=== PATIENT | male | born 1960 | race Caucasian/White ===

== ENCOUNTER 2020-03-12 13:38 | Observation (INO) | payer OTHER, SELFPAY ==
[2020-03-12] VITALS (8 sets, daily range): BP systolic 123–150; BP diastolic 70–88; PULSE 89–129; RESP 18–20; TEMP 36.6–36.8; O2SAT 98–100; BMI 29.4
--- NOTE | ~2020-03-12 | CT_ITS ---
EXAMINATION: CT brain wo con DATE: 03/12/2020 14:16 INDICATION: Altered mental status TECHNIQUE: Computed tomography (CT) of the head was performed without intravenous contrast. The mA wa s adjusted according to patient size. Iterative reconstruction technique was employed. Exam dose: 60 5.33 mGy-cm total exam DLP. COMPARISON: 02/27/2019 CT brain FINDINGS: There are chronic cerebrovascular accidents, at the left posterior parietal occipital area, left fron sarah parietal area in posterior right parietal area Bilateral vertebral artery and bilateral prominent carotid siphon internal carotid artery calcificati ons are noted. There is nonspecific diminished attenuation of the cerebral white matter, likely due to chronic small vessel ischemic changes. No intracranial mass lesion or hemorrhage, midline shift shift or mass effect is evident. No subdural or epidural hematoma. There is partial opacification of left at mastoid air cells. The right mastoid air cells are normally developed and aerated. There is soft tissue thickening of ethmoid air cells bilaterally. The paranasal sinuses are otherwise unremarkable. IMPRESSION: Chronic bilateral cerebrovascular infarcts Cerebral atherosclerosis and chronic small vessel ischemic changes of the cerebral white matter Reviewed, dictated and finalized at [facility]. Reviewed, dictated and finalized at location [facility]. IMPRESSION: Chronic bilateral cerebrovascular infarcts Cerebral atherosclerosis and chronic small vessel ischemic changes of the cereb ral white matter
--- NOTE | ~2020-03-12 | XR_ITS ---
EXAMINATION: XR chest 2V DATE: 03/12/2020 14:20 INDICATION: Weakness. Confusion. TECHNIQUE: Frontal and lateral views of the chest were obtained. COMPARISON: Chest 2 views 02/27/2019 FINDINGS: There is no pneumonia, pleural effusion, or pneumothorax. Cardiomegaly is noted. There is a left chest wall pacer with leads in the right atrium and right ventricle. IMPRESSION: 1. Cardiomegaly. Reviewed, dictated and finalized at location [facility]. IMPRESSION: 1. Cardiomegaly.
--- NOTE | ~2020-03-12 | CT_ITS ---
EXAMINATION: CT chest abdomen pelvis wo con DATE: 03/13/2020 15:01 INDICATION: Abdominal pain. TECHNIQUE: Computed tomography (CT) of the chest, abdomen, and pelvis was performed without intraveno us contrast. Automated exposure control and iterative reconstruction technique were employed. The dos e-length product was 1067.71 mGy-cm. COMPARISON: Chest 2 views 03/12/2020 FINDINGS: CHEST CT: The lungs demonstrate mild atelectasis. There is smooth septal thickening in the lungs, consistent wi th mild pulmonary edema. No pleural effusion. The heart size is normal. There are coronary artery devante cifications. No pericardial effusion. There is a left chest wall pacer with leads in the right atrium and right ventricle. There is upper thoracic levoscoliosis and severe spondylosis. There is severe c ervical spondylosis. Thoracolumbar dextroscoliosis is noted. ABDOMEN/PELVIS CT: The liver, gallbladder, spleen, pancreas, adrenal glands, and kidneys are normal. There is no urolith iasis. There is diffuse bladder wall thickening, likely secondary to chronic outlet obstruction from the moderately enlarged prostate. There is low attenuation in the prostate in an area measuring 4.9 x 3.9 cm. There is diverticulosis of the colon without evidence of diverticulitis. The appendix is nor mal. There are no dilated loops of bowel. There is a subcutaneous injection site in anterior abdomina l wall. There are no pathologically enlarged lymph nodes. There is no free intraperitoneal fluid. The re is a chronic compression fracture of L3 with changes of vertebroplasty. There is severe lumbar spo ndylosis. Lumbar levoscoliosis is noted. IMPRESSION: 1. Mild pulmonary edema. 2. Moderately enlarged prostate with low attenuation suspicious for prostatitis and abscess. Reviewed, dictated and finalized at location [facility].
--- NOTE | 2020-03-12 13:46 | ECG_ITS ---
Measurements Intervals [place] Rate: 100 P: -21 CT: 214 QRS: -83 QRSD: 170 T: 70 QT: 383 QTc: 494 Interpretive Statements SINUS TACHYCARDIA WITH FIRST DEGREE AV BLOCK LEFT AXIS DEVIATION RIGHT BUNDLE BRANCH BLOCK LEFT VENTRICULAR HYPERTROPHY AND ST-T CHANGE POOR R WAVE PROGRESSION, ANTERIOR LEADS INFERIOR INFARCT, AGE INDETERMINATE ABNORMAL ECG Electronically Signed On 03-12-2020 14:24:57 CDT by Leonardo Song D.O.
--- NOTE | 2020-03-12 13:55 | ED.GENADULT ---
HPI - General Adult General Chief complaint: Weakness Stated complaint: GROIN PAIN/WEAKNESS Source: patient History of Present Illness HPI narrative: Patient is a 60 y/o male brought in by EMS for reported groin. He is not sure why he is here. He states that he was talking with a friend on the phone and his friend might have called EMS. He states that he had recent prostate surgery and he has some pelvic/suprapubic pain. He denies any chest pain, SOB, headache, fever, vomiting or diarrhea. Related Data Home Medications Medication Instructions Recorded Confirmed amitriptyline 100 mg PO DAILY 03/12/20 atorvastatin 80 mg PO DAILY 03/12/20 clopidogrel 75 mg PO DAILY 03/12/20 cyclobenzaprine 10 mg PO TID PRN 03/12/20 docusate sodium [DOK] 100 mg PO BID 03/12/20 ergocalciferol (vitamin D2) 1,250 mcg PO DAILY 03/12/20 linagliptin [Tradjenta] 5 mg PO DAILY 03/12/20 pantoprazole 40 mg PO DAILY 03/12/20 tramadol 50 mg PO TID PRN 03/12/20 Allergies Allergy/AdvReac Type Severity Reaction Status Date / Time Penicillins Allergy Unknown Other Verified 03/12/20 13:57 Review of Systems Review of Systems: ROS unobtainable: Yes unobtainable due to mental status Exam Const: General: no acute distress, well developed and confusion Orientation/consciousness: oriented to person, oriented to place and oriented to time Limitations: altered mental status HENMT: Head: normocephalic Ears: external ears normal General nose exam: Normal external nose present Eyes: General: appearance normal, both eyes and all related structures Conjunctivae: conjunctivae normal Neck: Neck: normal visual inspection and full ROM Chest: Chest palpation & inspection: normal inspection of the chest and no tenderness Resp: Effort & Inspection: normal respiratory effort Auscultation: clear to auscultation bilaterally Cardio: Rate: regular rate Rhythm: regular rhythm GI: GI Palp: No abdominal tenderness, Yes Soft to palpation and Yes Tenderness to palpation present (GI) (suprapubic) : Penis: Yes normal penis Testes: no testicular swelling Skin: General skin exam: normal color and turgor normal Neuro: General: oriented to person and oriented to place Cognition (Neuro): normal cognition Extrem: General: normal to inspection, full ROM and no pedal edema Psych: Appearance: grossly normal Mental Status: mental status grossly normal Affect: normal affect Course Reevaluation(s) Reevaluation #1: Rechecked. Patient states that he feels better and no longer has suprapubic. Date: 03/12/20 Time: 18:10 Consultations Consultation #1: Discussed with PHILIP Sommer, who agrees to admit to Dr. Kyle. Date: 03/12/20 Time: 18:25 Vital Signs Vital signs: Vital Signs Temperature 36.8 C 03/12/20 13:39 Pulse Rate 89 03/12/20 13:39 Respiratory Rate 20 03/12/20 13:39 Blood Pressure 123/85 03/12/20 13:39 Pulse Oximetry 100 03/12/20 13:39 Temperature 36.8 C 03/12/20 13:39 Pulse Rate 103 H 03/12/20 15:00 Respiratory Rate 20 03/12/20 15:00 Blood Pressure 123/85 03/12/20 13:39 Pulse Oximetry 100 03/12/20 15:00 Medical Decision Making Vital Signs Vital Signs: Vital Signs Temperature 36.8 C 03/12/20 13:39 Pulse Rate 89 03/12/20 13:39 Respiratory Rate 20 03/12/20 13:39 Blood Pressure 123/85 03/12/20 13:39 Pulse Oximetry 100 03/12/20 13:39 Temperature 36.8 C 03/12/20 13:39 Pulse Rate 103 H 03/12/20 15:00 Respiratory Rate 20 03/12/20 15:00 Blood Pressure 123/85 03/12/20 13:39 Pulse Oximetry 100 03/12/20 15:00 Lab Data Result diagrams: 03/12/20 14:09 03/12/20 14:10 Labs: Lab Results 03/12/20 03/12/20 03/12/20 Range/Units 14:09 14:10 14:57 WBC 10.0 (4.5-10.0) K/mm3 RBC 3.47 L (4.6-6.20) M/mm3 Hgb 11.5 L (14.0-18.0) g/dL Hct 34.5 L (42.0-52.0) % MCV 99.4 (80-100) fl MCH 33.1 (26-34) pg MCHC 33.3 (32-36) g/dl R
[2020-03-12 14:20] LABS: Basophils Absolute Auto 0.1 K/mm3 (0.0-0.1); Basophils Percent Auto 0.6 % (0.2-1.2); Eosinophils Absolute Auto 0.1 K/mm3 (0-0.3); Eosinophils Percent Auto 0.5 % (0-4.4); Hematocrit 34.5 % (42.0-52.0); Hemoglobin 11.5 g/dL (14.0-18.0); Immature Granulocyte Absolute 0.05 K/mm3 (0.00-0.031); Immature Granulocyte Percent A 0.5 % (0-0.5); Lymphocytes Absolute Auto 1.92 K/mm3 (0.9-3.2); Lymphocytes Percent Auto 19.3 % (18.3-44.2); Mean Corpuscular HGB Conc 33.3 g/dl (32-36); Mean Corpuscular Hemoglobin 33.1 pg (26-34); Mean Corpuscular Volume 99.4 fl (80-100); Mean Platelet Volume 10.1 fl (7.4-10.4); Monocytes Absolute Auto 0.6 K/mm3 (0.1-0.6); Monocytes Percent Auto 5.6 % (2.6-8.5); Neutrophils Absolute Auto 7.3 K/mm3 (1.3-6.7); Neutrophils Percent Auto 73.5 % (45.5-73.1); Platelet Count Result 469 k/mm3 (150-375); Red Blood Count 3.47 M/mm3 (4.6-6.20); Red Cell Distribution Width 14.6 % (11.5-14.5)
[2020-03-12] MEDS: ONDANSETRON INJ 4 MG/2 ML VIAL IV PUSH (14:26)
[2020-03-12] MEDS: SODIUM CHLORIDE 0.9% IV 1,000 ML 999 ML IV CONT (14:26)
[2020-03-12 14:42] LABS: Alanine Aminotransferase 16 U/L (4-50); Albumin Level 4.7 g/dL (3.5-5.1); Alkaline Phosphatase 153 U/L (38-126); Anion Gap 15 mmol/L (8-16); Aspartate Amino Transferase 19 U/L (17-59); Bilirubin,Total 0.6 mg/dL (0.2-1.3); Blood Urea Nitrogen 21 mg/dL (9-20); Calcium 11.1 mg/dL (8.4-10.2); Carbon Dioxide 17 mmol/L (22-30); Chloride 105 mmol/L (98-107); Estimated Glomerular Filt Rate 39; Glucose 236 mg/dL (75-110); Potassium 5.4 mmol/L (3.4-5.0); Sodium 137 mmol/L (137-145)
[2020-03-12 15:28] LABS: Add Urine Microscopic? YES; Appearance Urine Clear (Clear); Bacteria Urine Trace /hpf; Bilirubin Urine Negative (Negative); Blood Urine 1+ (Negative); Color Urine Yellow (Yellow); Glucose Urine UA 2+ mg/dL (Negative); Hyaline Casts Urine 20-29 /lpf; Ketones Urine 1+ mg/dL (Negative); Leukocyte Esterase Ur 2+ LEU/UL (Negative); Mucus Urine Rare /lpf; Nitrate Urine Negative (Negative); Protein Urine 2+ mg/dL (Negative); Specific Grav Ur 1.018 (1.001-1.035); Squamous Epithelial Cell Urine Occasional /hpf (Few); Urobilinogen Urine Negative mg/dL (<2.0); WBC Urine >75 /hpf
[2020-03-12] MEDS: SODIUM CHLORIDE 0.9% IV 1,000 ML 125 ML IV CONT (19:58)
[2020-03-12] MEDS: CIPROFLOXACIN 400 MG/D5W 200ML 200 ML 200 MG IVPB (20:07)
--- NOTE | 2020-03-12 22:02 | ADMGEN ---
This patient, Basilio Riley, was admitted to 3 [facility] S[facility] Room 322-01. Patient/family oriented to hospital policies and general routines including ID bracelet, bed and alarms, visiting hours, pain management, procedures, bathroom and other care routines, personal items, smoking policy, room service/diet, and visiting hours. Valuables list has been completed. Information on how to activate the Rapid Response Team has been discussed. Patient/Family are encouraged to report perceived risks to care and to ask questions if they do not understand what they are told or what they should do.
[2020-03-13] VITALS (11 sets, daily range): BP systolic 115–161; BP diastolic 54–71; PULSE 77–100; RESP 16–20; TEMP 36.4–36.9; O2SAT 99–100
--- NOTE | 2020-03-13 05:09 | PM.IMHP ---
H&P: HPI History of Present Illness Date/Time: 03/13/20 05:09 Chief complaint: Penile pain, confusion Narrative: Basilio Riley is a 60 year old male with a past medical history of diabetes mellitus, hypertension, obstructive sleep apnea, CVA and recent prostate surgery who presented to the ER with penis pain and confusion. Patient had TURP on 02/15/2020. the patient had was only alert and oriented x2 in the ER. he has demonstrated some bizarre behavior since admission he was standing at the sink in his hospital room and attempting to urinated as he thought it was a urinal. at the time of my evaluation the patient is alert and oriented to name, location, year and name of the current president. He was confused as to the month and thought it was April. The patient denies having felt confused when he came to the ER. However when he was in the ER he could not recall if he still had a urinary catheter following his surgical procedure. He also was unable to tell the ER physician why he was at our facility. The patient had evidently been talking to a friend on the phone who called EMS. The patient tells me that his penis hurts and that he was having dysuria. However he also reports that his penis is hurting almost constantly. He denies any hematuria. He stated that he will had been having some abdominal pain previously but denied did not abdominal pain at the time of my evaluation. However , on exam the patient seemed uncomfortable with palpation of the lower abdomen and actually was guarding his abdomen when I tried to re-evaluate. He denies any headache or visual changes. He has not been having any nausea or vomiting. He has not been having any chest pain or shortness of breath. Review of Systems Review of Systems: Narrative: 12 systems were reviewed with pertinent positives and negatives per HPI. Except as documented in the HPI, all other systems were reviewed and are negative. The patient is a poor historian And provides vague answers which makes review of systems difficult. 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 CVA (cerebral vascular accident) CVA 2014 with left hemiparesis right frontoparietal, CVA January 2019 where he presented with confusion and aphasia and was found I will left parietal occipital region stroke at time Diabetic peripheral neuropathy Essential hypertension Hard of hearing Hyperlipidemia Obstructive sleep apnea refuses CPAP Type 2 diabetes mellitus hemoglobin A1c of 6.1 02/21/2019 Vitamin D deficiency Surgical History Surgical History (Updated 03/13/20 @ 06:12 by Jenny Farias DO) Cardiac pacemaker due to sick sinus syndrome History of hernia surgery History of transurethral resection of prostate Previous back surgery Family History Family History Mother Cerebrovascular accident Acute myocardial infarction Hypertension Father Diabetes mellitus Cerebrovascular accident Hypertension Social History Social History (Updated 03/13/20 @ 05:30 by Jenny Farias DO) Social History: Primary care provider: Dina PALACIOS Code status: Full code Surrogate decision maker: Darling Rivers (Sister) Smoking packs per day: 1 Smoking cigarettes per day: 20.0 Years smoked: 45 Smoking pack-years: 45.00 Smoking status: Former smoker Alcohol intake: never Substance use: current Substa
[2020-03-13] MEDS: traMADol HCL 50 MG TABLET PO (06:19)
[2020-03-13] MEDS: SODIUM CHLORIDE 0.9% IV 1,000 ML 125 ML IV CONT ×2 (06:19→12:03)
[2020-03-13] MEDS: CIPROFLOXACIN 400 MG/D5W 200ML 200 ML 200 MG IVPB ×2 (06:21→17:48)
[2020-03-13 06:24] LABS: Hematocrit 28.5 % (42.0-52.0); Hemoglobin 9.4 g/dL (14.0-18.0); Mean Corpuscular Hemoglobin 33.1 pg (26-34); Mean Corpuscular Volume 100.4 fl (80-100); Platelet Count Result 379 k/mm3 (150-375); Red Blood Count 2.84 M/mm3 (4.6-6.20); Red Cell Distribution Width 14.7 % (11.5-14.5); White Blood Count 10.7 K/mm3 (4.5-10.0)
--- NOTE | 2020-03-13 06:47 | PHAR ---
THE FOLLOWING HOME MEDS HAVE BEEN VERIFIED BY PHARMACY TRADJENTA 5 MG TABS NATEFLINIDE 120 MG TABS
[2020-03-13 06:50] LABS: Anion Gap 7 mmol/L (8-16); Blood Urea Nitrogen 22 mg/dL (9-20); Calcium 9.8 mg/dL (8.4-10.2); Carbon Dioxide 22 mmol/L (22-30); Chloride 109 mmol/L (98-107); Estimated CRCL calculation 48 ml/min; Estimated Glomerular Filt Rate 48; Glucose 207 mg/dL (75-110); Potassium 4.1 mmol/L (3.4-5.0); Sodium 138 mmol/L (137-145)
[2020-03-13 09:07] LABS: CRP 0.7 mg/dL (<1.0)
[2020-03-13 09:10] LABS: Acetaminophen < 10 ug/mL (10-30); Ammonia < 9 umol/L (9-30); Salicylate < 1.0 mg/dL (2-20)
[2020-03-13] MEDS: DOCUSATE SODIUM 100 MG CAPSULE 200 MG PO (09:25)
[2020-03-13] MEDS: FOLIC ACID 1 MG TABLET PO (09:26)
[2020-03-13] MEDS: GABAPENTIN 300 MG CAPSULE 900 MG PO ×3 (09:26→17:52)
[2020-03-13] MEDS: levETIRAcetam 250 MG TABLET PO ×2 (09:26→17:53)
[2020-03-13] MEDS: CLOPIDOGREL BISULFATE 75 MG TABLET PO (09:26)
[2020-03-13] MEDS: HYDROXYUREA (*CHEMO) 500 MG CAPSULE PO (09:26)
[2020-03-13] MEDS: PANTOPRAZOLE 40 MG TABLET PO (09:26)
[2020-03-13] MEDS: PHENAZOPYRIDINE HCL 100 MG TABLET 200 MG PO ×3 (09:26→17:53)
[2020-03-13] MEDS: METOPROLOL SUCCINATE EXT REL 50 MG TABCR PO (09:27)
[2020-03-13] MEDS: ENOXAPARIN 40 MG/0.4 ML SYRINGE SUB-Q (09:28)
[2020-03-13] MEDS: INSULIN ASPART (*BKC) 100 UNITS/ML SUB-Q (09:39)
[2020-03-13 10:00] LABS: Glucose Point of Care 261 (65-105)
[2020-03-13 10:11] LABS: Folic Acid > 20.0 ng/mL (2.76->20)
--- NOTE | 2020-03-13 14:21 | PM.IMPN ---
Progress Note: A&P Assessment and Plan (1) UTI (urinary tract infection): Qualifiers: Hematuria presence: without hematuria Urinary tract infection type: site unspecified Qualified Code(s): N39.0 - Urinary tract infection, site not specified Code(s): N39.0 - Urinary tract infection, site not specified Status: Acute Assessment and Plan: -----Symptoms and UA consistent with UTI. Continue Cipro. AMS appears to be improving. Pt stated he had some issue with his TURP at [facility] and had to be transferred but couldn't tell me what exactly went on. Will order records. Continue pyridium for burning, await CT abd/pelv. (2) S/P TURP: Code(s): Z90.79 - Acquired absence of other genital organ(s) Status: Acute Assessment and Plan: -----See above. Will obtain records. CT to ensure no abscess or other issue. (3) CONNIE (acute kidney injury): Code(s): N17.9 - Acute kidney failure, unspecified Status: Acute Assessment and Plan: -----Cr improving now 1.5 today. Hold lisinopril. Will decrease fluids. (4) Metabolic encephalopathy: Code(s): G93.41 - Metabolic encephalopathy Status: Acute Assessment and Plan: -----likely due to urinary tract infection. Keppra level ordered. Pt is A&ox4 but confused about his last surgery. . 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 Continue SSI. Time Spent With Patient Time with patient: 25 - 35 minutes Subjective Date/time seen: 03/13/20 14:21 Interval history: Pt is a 60-year-old male here for altered mental status found to have a UTI. Patient was seen today and feels okay. He says he still has penile pain and describes this as burning when he urinates. He has no concerns for STDs at this time. He had some nausea earlier and felt weak. He also thinks he has hearing less at his left ear but has no joint pain. He denies chest pain, shortness of breath, fevers, chills, abdominal pain or diarrhea. patient is somewhat confused about his procedure in [place]. It is documented that it was last month but pt does seem confused about the details of this. Review of Systems Review of Systems: All systems reviewed & are unremarkable except as noted in HPI and below Exam Narrative: Exam Narrative: General: Well developed well nourished patient Resting comfortably in bed in no acute distress HEENT: normocephalic Neck: supple Neuro: Alert and oriented x4 for me on exam but cannot exactly recall the timing of his last procedure and hospitalization. Cranial nerves 2-12 intact. Equal strength in the upper lower extremities 5/5 CV:RRR :benign appearing penis without discharge, erythema, or hematuria. No masses palpated. Resp:CTA Abd: Soft, non distended. Some mild pain to the lower quadrants. Positive bowel sounds Extremities: No swelling, erythema, or pain to palpation. Objective Data Vital Signs Vital Signs: Vital Signs - 24 hr 03/12/20 15:00 03/12/20 17:00 03/12/20 19:15 Temperature Pulse Rate 103 H 102 H 110 H Respiratory Rate 20 20 20 Blood Pressure 132/88 128/71 123/77 Pulse Oximetry 98 100 99 03/12/20 20:30 03/12/20 21:30 03/12/20 22:13 Temperature 97.8 F Pulse Rate 111 H 97 129 H Respiratory Rate 20 18 Blood Pressure 123/72 150/70 H Pulse Oximetry 99 100 03/13/20 00:00 03/13/20 02:00 03/13/20 06:00 Temperature 97.6 F 97.6 F Pulse Rate 92 96 93 Respiratory Rate 18 18 Blood Pressure 161/66 H 152/71 H Pulse Oximetry 100 100 03/13/20 08:00 03/13/20 09:27 03/13/20 10:00 Temperature 97.6 F Pulse Rate 85 96 100 Respir
[2020-03-13 14:27] LABS: Glucose Point of Care 96 (65-105)
[2020-03-13] MEDS: ACETAMINOPHEN 325 MG TABLET 650 MG PO (17:51)
[2020-03-13 18:06] LABS: Glucose Point of Care 92 (65-105)
[2020-03-13] MEDS: AMITRIPTYLINE HCL 25 MG TABLET 100 MG PO (20:55)
[2020-03-13] MEDS: ATORVASTATIN 40 MG TABLET 80 MG PO (20:55)
[2020-03-13 22:07] LABS: Glucose Point of Care 129 (65-105)
[2020-03-14] VITALS: PULSE 74
[2020-03-14 04:00] VITALS: PULSE 84
[2020-03-14 05:06] VITALS: BP 129/90; PULSE 97; RESP 18; TEMP 36.7; O2SAT 100
[2020-03-14] MEDS: SODIUM CHLORIDE 0.9% IV 1,000 ML 100 ML IV CONT (05:09)
[2020-03-14] MEDS: CIPROFLOXACIN 400 MG/D5W 200ML 200 ML 200 MG IVPB (05:09)
[2020-03-14 06:07] LABS: Hematocrit 27.7 % (42.0-52.0); Mean Corpuscular HGB Conc 32.5 g/dl (32-36); Mean Corpuscular Hemoglobin 33.5 pg (26-34); Platelet Count Result 313 k/mm3 (150-375); Red Blood Count 2.69 M/mm3 (4.6-6.20); Red Cell Distribution Width 15.4 % (11.5-14.5); White Blood Count 11.1 K/mm3 (4.5-10.0)
[2020-03-14 06:20] LABS: Alanine Aminotransferase 15 U/L (4-50); Albumin Level 3.3 g/dL (3.5-5.1); Alkaline Phosphatase 82 U/L (38-126); Anion Gap 3 mmol/L (8-16); Aspartate Amino Transferase 18 U/L (17-59); Bilirubin,Total < 0.1 mg/dL (0.2-1.3); Blood Urea Nitrogen 17 mg/dL (9-20); Calcium 9.1 mg/dL (8.4-10.2); Carbon Dioxide 24 mmol/L (22-30); Chloride 110 mmol/L (98-107); Estimated CRCL calculation 55 ml/min; Estimated Glomerular Filt Rate 57; Glucose 189 mg/dL (75-110); Magnesium 1.4 mg/dL (1.6-2.3); Potassium 3.9 mmol/L (3.4-5.0); Sodium 137 mmol/L (137-145)
[2020-03-14 08:00] VITALS: PULSE 85
[2020-03-14] MEDS: DOCUSATE SODIUM 100 MG CAPSULE 200 MG PO (08:30)
[2020-03-14 08:31] LABS: Glucose Point of Care 174 (65-105)
[2020-03-14] MEDS: HYDROXYUREA (*CHEMO) 500 MG CAPSULE PO (08:31)
[2020-03-14] MEDS: GABAPENTIN 300 MG CAPSULE 900 MG PO ×2 (08:31→12:39)
[2020-03-14] MEDS: PHENAZOPYRIDINE HCL 100 MG TABLET 200 MG PO ×2 (08:32→12:39)
[2020-03-14] MEDS: levETIRAcetam 250 MG TABLET PO (08:32)
[2020-03-14 08:33] VITALS: PULSE 77
[2020-03-14] MEDS: METOPROLOL SUCCINATE EXT REL 50 MG TABCR PO (08:33)
[2020-03-14] MEDS: PANTOPRAZOLE 40 MG TABLET PO (08:33)
[2020-03-14] MEDS: FOLIC ACID 1 MG TABLET PO (08:33)
[2020-03-14] MEDS: CLOPIDOGREL BISULFATE 75 MG TABLET PO (08:33)
[2020-03-14] MEDS: ENOXAPARIN 40 MG/0.4 ML SYRINGE SUB-Q (08:36)
[2020-03-14] MEDS: MAGNESIUM SULF 2 GM/WATER 50ML 2 GM/50 ML BAG IVPB (08:37)
--- NOTE | 2020-03-14 08:53 | WPDURCON ---
Assessment and Plan Assessment and plan (1) Prostate abscess: Code(s): N41.2 - Abscess of prostate Status: Acute Assessment and Plan: Patient's pain is improved today. Would recommend sending patient home with two weeks of oral antibiotics and to establish care with Urology at [facility] or [facility]. If patient's pain would worsen or signs of infection such as fever or elevated WBC would occur, the patient would need to be transferred to U or [facility] for rectal drainage of abscess in IR. No further care at this time needed. Urology Consult Note HPI Date Seen: 03/14/20 Requesting Physician: Maggy Rain PA-C Primary Care Provider: Dina Cloud, PA Consult Narrative Narrative: Basilio Riley is a 60 year old male who presented to the ER via EMS yesterday for severe scrotal/penile pain s/p prostate abscess drainage (unroofing of a prostate abscess) with Dr. Petersen in 02/2020. His pain is improved today and tolerable, however yesterday he c/o severe dysuria and urethral pain. His WBC is 11.1, creatinine is 1.30, urine culture is growing staph and CT confirms that his prostate abscess is still present. He is afebrile and stable otherwise today. He was given 14 days of Bactrim from the hosptial on 02/18/2020 but the patient didn't pick them up or take them. He was then seen by Dr. Petersen in the office on 02/24/2020 and given another script for 2 weeks of Bactrim which he didn't take, he was also recommended to follow up with a Urologist at [facility] or [facility] by Dr. Petersen. 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 CVA (cerebral vascular accident) CVA 2014 with left hemiparesis right frontoparietal, CVA January 2019 where he presented with confusion and aphasia and was found I will left parietal occipital region stroke at time Diabetic peripheral neuropathy Essential hypertension Hard of hearing Hyperlipidemia Obstructive sleep apnea refuses CPAP Prostate abscess Type 2 diabetes mellitus hemoglobin A1c of 6.1 02/21/2019 Vitamin D deficiency Surgical History Surgical History Cardiac pacemaker due to sick sinus syndrome History of hernia surgery History of transurethral resection of prostate Previous back surgery Family History Family History Mother Cerebrovascular accident Acute myocardial infarction Hypertension Father Diabetes mellitus Cerebrovascular accident Hypertension Social History Social History Social History: Primary care provider: Dina PALACIOS Code status: Full code Surrogate decision maker: Darling Rivers (Sister) Smoking packs per day: 1 Smoking cigarettes per day: 20.0 Years smoked: 45 Smoking pack-years: 45.00 Smoking status: Former smoker Alcohol intake: never Substance use: current Substance use type: marijuana Living arrangements: alone Additional living arrangements comments: [facility]
[2020-03-14 12:00] VITALS: PULSE 91
[2020-03-14] MEDS: metroNIDAZOLE 250 MG TABLET 500 MG PO (12:39)
--- NOTE | 2020-03-14 12:39 | PM.DS ---
DS: Admitting Diagnosis Admitting Diagnosis Admitting Diagnosis: Urinary tract infection, site not specified DS: Discharge Diagnosis Discharge Diagnosis (1) UTI (urinary tract infection): Qualifiers: Hematuria presence: without hematuria Urinary tract infection type: site unspecified Qualified Code(s): N39.0 - Urinary tract infection, site not specified Code(s): N39.0 - Urinary tract infection, site not specified Status: Acute Assessment and Plan: -----urine culture confirms UTI with coag-negative staph greater than 100, 000 units. Susceptible to Cipro. I spoke with urology about the abscess in the plan to treat with IV antibiotics. I will with through his records and it looks like he also had this abscess 02/16/2020 and was drained at this time. The day of discharge he had no further dysuria and was back to his baseline. He is to follow-up with the surgeon he saw prior. (2) S/P TURP: Code(s): Z90.79 - Acquired absence of other genital organ(s) Status: Acute Assessment and Plan: -----See above. (3) CONNIE (acute kidney injury): Code(s): N17.9 - Acute kidney failure, unspecified Status: Acute Assessment and Plan: -----Cr improved 1.3 at discharge. (4) Metabolic encephalopathy: Code(s): G93.41 - Metabolic encephalopathy Status: Acute Assessment and Plan: -----resolved. likely due to urinary tract infection. Keppra level low . (5) Diabetes mellitus with hyperglycemia: Qualifiers: Diabetes mellitus type: type 2 Diabetes mellitus snf insulin use: without snf use Qualified Code(s): E11.65 - Type 2 diabetes mellitus with hyperglycemia Code(s): E11.65 - Type 2 diabetes mellitus with hyperglycemia Status: Acute Assessment and Plan: -----Last glucose 167 DS: Summary Hospital Course Reason for hospitalization: UTI, complicated Hospital Course: Patient is a 60-year-old male who was just hospitalized and underwent surgery for a prostate/abscess 02/16/20 who presented emergency room for further dysuria, pain, and confusion. Vitals in the ER were stable. Initial white blood cell count normal 10.0. Creatinine 1.8, potassium 5.4. Patient was admitted to the hospitalist service and started on vancomycin and cipro. Of the abdomen and pelvis showed moderately enlarged prostate with low attenuation suspicious for prostatitis and abscess. Urology saw the patient and his old records were reviewed. They recommended an oral course of antibiotics. The patient improved with antibiotics and his pain has resolved. His urine culture grew out coag-negative staph. Overall, he had improvement and was back to his baseline. He is to follow-up with the Urology group. Was Petterchak and the patient understands this. He was educated about the worrisome signs and symptoms to come back to emergency room for was discharged in stable condition. Status at Discharge Functional status at discharge: independent ambulation Overall status at discharge: patient is back to baseline Time Spent with Patient Time attestation: Total time spent providing and/or coordinating discharge services:38 min Time spent: Greater than 30 minutes Exam Narrative: Exam Narrative: General: Well developed well nourished patient Resting comfortably in bed in no acute distress HEENT: normocephalic Neck: supple Neuro: Alert and oriented x4 for me on exam but cannot exactly recall the timing of his last procedure and hospitalization. Cranial nerves 2-12 intact. Equal strength in the upper lower extremities 5/5 CV:RRR :benign appearing penis without discharge, erythema, or hematuria. No masses palpated. Resp:CTA Abd: Soft, non distended. Some mild pain to the lower quadrants. Positive bowel sounds Extremities: No swelling, erythema, or pain to palpation. DS: Data Data Completed and Pending Labs on day of discharge: Joanne
[2020-03-14 12:49] LABS: Glucose Point of Care 167 (65-105)
[2020-03-17 01:51] LABS: Levetiracetam Keppra <1.0 mcg/mL (12.0-46.0)
--- NOTE | 2020-03-20 15:21 | PC.NURSE ---
Blood cx are negative Keppra ;ow at <1.0. Juan José Rain PA-C aware.
== END 2020-03-14 14:36 | disposition home or self-care (01) ==
LOC: ANHED 19:19 → ANH3MEDSUR 19:51
PROVIDERS: Internal Medicine; Physician Assistant; Admitting Provider Internal Medicine; Emergency Provider Emergency Medicine; PCP Physician Assistant; Visit Provider Family Medicine
DX: N39.0 Urinary tract infection, site not specified (principal); N41.2 Abscess of prostate; N17.9 Acute kidney failure, unspecified; Z90.79 Acquired absence of other genital organ(s); G93.41 Metabolic encephalopathy; E11.65 Type 2 diabetes mellitus with hyperglycemia; R53.1 Weakness; D75.9 Disease of blood and blood-forming organs, unspecified; I25.10 Atherosclerotic heart disease of native coronary artery without angina pectoris; I65.23 Occlusion and stenosis of bilateral carotid arteries; I12.9 Hypertensive chronic kidney disease with stage 1 through stage 4 chronic kidney disease, or unspecified chronic kidney disease; N18.3 Chronic kidney disease, stage 3 (moderate); D64.9 Anemia, unspecified; E11.22 Type 2 diabetes mellitus with diabetic chronic kidney disease; E11.40 Type 2 diabetes mellitus with diabetic neuropathy, unspecified; G47.33 Obstructive sleep apnea (adult) (pediatric); E78.5 Hyperlipidemia, unspecified; E55.9 Vitamin D deficiency, unspecified; Z79.02 Long term (current) use of antithrombotics/antiplatelets; Z86.73 Personal history of transient ischemic attack (TIA), and cerebral infarction without residual deficits; Z87.891 Personal history of nicotine dependence; F12.90 Cannabis use, unspecified, uncomplicated; Z79.899 Other long term (current) drug therapy
CPT/HCPCS: 36415; 70450; 71046; 71250; 74176; 80048; 80053; 80076; 80177; 80307; 81001; 82140; 82607; 82746; 83735; 85025; 85027; 86140; 87040; 87077; 87086; 87088; 87186; 93005; 96361; 96365; 96366; 96372; 96375; 99285; A9270; G0378; G0379; J0744; J1650; J1815; J2405; J3370; J3475; J7030

== ENCOUNTER 2020-05-28 08:53 | Outpatient (RCR) | payer OTHER, SELFPAY | END 2020-07-13 13:24 | disposition home or self-care (01) | LOC: ANHAUDIO 08:53 | PROVIDERS: PCP Physician Assistant; Visit Provider Physician Assistant | DX: Z46.1 Encounter for fitting and adjustment of hearing aid (principal) | CPT/HCPCS: V5014 ==

== ENCOUNTER 2020-05-28 18:42 | Observation (INO) | payer OTHER, SELFPAY ==
[2020-05-28] VITALS (7 sets, daily range): BP systolic 104–144; BP diastolic 50–81; PULSE 88–100; RESP 13–20; TEMP 36.3–36.6; O2SAT 96–100; BMI 35.6
--- NOTE | ~2020-05-28 | CT_ITS ---
EXAMINATION: CT abdomen pelvis wo con DATE: 05/29/2020 09:25 INDICATION: Leukocytosis. Prostate abscess. TECHNIQUE: Computed tomography (CT) of the abdomen and pelvis was performed without intravenous contr ast. Automated exposure control and iterative reconstruction technique were employed. The dose-length product was 1055.72 mGy-cm. COMPARISON: CT abdomen and pelvis 03/13/2020 FINDINGS: The visualized portions of the lung bases demonstrate smooth septal thickening, consistent with mild pulmonary edema. No pleural effusion. The heart size is normal. There are coronary artery c alcifications. No pericardial effusion. There is a pacer wire in right ventricle. There is a [address] in the liver. There is steatosis in the liver at the hilum. The gallbladder, spleen, pancreas, adr enal glands, and kidneys are normal. The prostate is moderately enlarged. There is a bilobed area of low-attenuation in the prostate measuring 4.8 x 1.3 cm, improved from 4.9 x 3.9 cm. There is divertic ulosis of the colon without evidence of diverticulitis. There are no dilated loops of bowel. The appe ndix is normal. There is a small left inguinal hernia containing fat. There are no pathologically enl arged lymph nodes. There is no free intraperitoneal fluid. There are multiple healing right-sided rib fractures. There is severe lumbar spondylosis. There is a compression fracture of L3 with changes of vertebroplasty. IMPRESSION: 1. Moderately enlarged prostate with area of low-attenuation with improvement, consistent with prosta titis. It is not clear if there is a residual small component of abscess. 2. Mild pulmonary edema. Reviewed, dictated and finalized at location A. IMPRESSION: 1. Moderately enlarged prostate with area of low-attenuation with improvement, consistent with prostatitis. It is not clear if there is a residual small compo nent of abscess. 2. Mild pulmonary edema.
--- NOTE | 2020-05-28 20:03 | PC.NURSE ---
BLOOD DRAWN BY THIS RN AND SENT TO THE LAB. ASKED PT FOR A URINE SAMPLE, PT STATES HE CANNOT GO AT THIS TIME. RN INFORMED PT THAT IF HE CANNOT PRODUCE A URINE SAMPLE IN A REASONABLE AMOUNT OF TIME THAT THE EDP WILL ORDER A STRAIGHT CATHETERIZATION. PT STATES HE DOES NOT WANT A CATHETER AND ASKS FOR A URINAL. URINAL GIVEN BY THIS RN AND ENCOURAGED PT TO TRY TO URINATE.
[2020-05-28 20:04] LABS: Basophils Absolute Auto 0.1 K/mm3 (0.0-0.1); Basophils Percent Auto 0.5 % (0.2-1.2); Eosinophils Absolute Auto 0.6 K/mm3 (0-0.3); Hematocrit 31.1 % (42.0-52.0); Hemoglobin 10.3 g/dL (14.0-18.0); Immature Granulocyte Absolute 0.08 K/mm3 (0.00-0.031); Immature Granulocyte Percent A 0.5 % (0-0.5); Lymphocytes Absolute Auto 4.97 K/mm3 (0.9-3.2); Lymphocytes Percent Auto 32.9 % (18.3-44.2); Mean Corpuscular HGB Conc 33.1 g/dl (32-36); Mean Corpuscular Hemoglobin 33.2 pg (26-34); Mean Corpuscular Volume 100.3 fl (80-100); Mean Platelet Volume 10.4 fl (7.4-10.4); Monocytes Percent Auto 6.4 % (2.6-8.5); Neutrophils Absolute Auto 8.4 K/mm3 (1.3-6.7); Neutrophils Percent Auto 55.7 % (45.5-73.1); Platelet Count Result 353 k/mm3 (150-375); Red Cell Distribution Width 13.6 % (11.5-14.5); White Blood Count 15.1 K/mm3 (4.5-10.0)
[2020-05-28 20:15] LABS: Lactic Acid Reflex 1.4 mmol/L (0.7-2.1)
[2020-05-28 20:39] LABS: Anion Gap 11 mmol/L (8-16); Blood Urea Nitrogen 65 mg/dL (9-20); Calcium 10.5 mg/dL (8.4-10.2); Carbon Dioxide 22 mmol/L (22-30); Chloride 100 mmol/L (98-107); Estimated CRCL calculation 31 ml/min; Estimated Glomerular Filt Rate 29; Glucose 508 mg/dL (75-110); Potassium 5.9 mmol/L (3.4-5.0); Sodium 133 mmol/L (137-145)
--- NOTE | 2020-05-28 20:52 | ED.GENADULT ---
HPI - General Adult General Chief complaint: Recheck/Abnormal Lab/Rx Stated complaint: abnormal labs Time Seen by Provider: 05/28/20 19:26 History of Present Illness HPI narrative: Patient is a 60-year-old male who presents the ER at the request of his primary care doctor. Patient had routine outpatient blood work drawn and was told they were abnormal and he should come here. Specifically was told that his white blood cell count was high. Were contacted earlier by his primary who reports he had a white blood cell count of 20,000 and a hemoglobin A1c of 12. Patient is denying any fever/chills/sweats/nausea/vomiting. He has had no difficulty breathing or productive cough. Patient does report dysuria since March of this year when he had prostatitis and a prostate abscess that was drained at this hospital. No known sick contacts. Patient reports compliance with his home medications. Reports he had a blood sugar around 300 at noon today and then took an unknown insulin medication that brought his blood sugar down to around 208. Reports he was eating prior to his arrival here so his blood sugar may be high. Related Data Home Medications Medication Instructions Recorded Confirmed Tradjenta 5 mg PO DAILY 03/12/20 03/12/20 amitriptyline 100 mg PO HS 03/12/20 03/12/20 atorvastatin 80 mg PO HS 03/12/20 03/12/20 clopidogrel 75 mg PO DAILY 03/12/20 03/12/20 cyclobenzaprine 10 mg PO TID PRN 03/12/20 03/12/20 docusate sodium [DOK] 200 mg PO DAILY 03/12/20 03/12/20 ergocalciferol (vitamin D2) 1,250 mcg PO DAILY 03/12/20 03/12/20 folic acid 1 mg PO DAILY 03/12/20 03/12/20 gabapentin 900 mg PO TID 03/12/20 03/12/20 hydroxyurea 500 mg PO DAILY 03/12/20 03/12/20 levetiracetam 250 mg PO BID 03/12/20 03/12/20 lisinopril 20 mg PO DAILY 03/12/20 03/12/20 metoprolol succinate 50 mg PO DAILY 03/12/20 03/12/20 nateglinide 120 mg PO TID 03/12/20 03/12/20 pantoprazole 40 mg PO DAILY 03/12/20 03/12/20 tramadol 50 mg PO Q6H PRN 03/12/20 03/12/20 aspirin 81 mg PO DAILY 05/28/20 Allergies Allergy/AdvReac Type Severity Reaction Status Date / Time Penicillins Allergy Unknown Other Verified 05/28/20 19:09 Review of Systems Review of Systems: All systems reviewed & are unremarkable except as noted in HPI and below Constitutional: Constitutional: Denies chills, Denies fever(s) and Denies weakness ENT: Denies nasal congestion and Denies sore throat Respiratory: Respiratory: Denies cough and Denies dyspnea Gastrointestinal: Gastrointestinal: Denies abdominal pain, Denies diarrhea, Denies nausea and Denies vomiting Genitourinary: Genitourinary: Denies hematuria, Reports dysuria and Denies urinary frequency [facility] Past Medical History Medical History (Updated 05/28/20 @ 21:19 by Rick Mccauley MD) 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
[2020-05-28 20:53] LABS: Add Urine Microscopic? YES; Appearance Urine Cloudy (Clear); Bacteria Urine Trace /hpf; Bilirubin Urine Negative (Negative); Blood Urine 3+ (Negative); Color Urine Yellow (Yellow); Glucose Urine UA 3+ mg/dL (Negative); Ketones Urine Negative (Negative); Leukocyte Esterase Ur 3+ LEU/UL (Negative); Mucus Urine Rare /lpf; Nitrate Urine Negative (Negative); Protein Urine 1+ mg/dL (Negative); RBC Urine 21-50 /hpf (0-2); Specific Grav Ur 1.018 (1.001-1.035); Squamous Epithelial Cell Urine Rare /hpf (Few); Urobilinogen Urine Negative mg/dL (<2.0); WBC Urine >75 /hpf
[2020-05-28] MEDS: SODIUM CHLORIDE 0.9% IV 1,000 ML 999 ML IV CONT (21:12)
[2020-05-28] MEDS: INSULIN HUMAN REGULAR (*BKC) 100 UNITS/ML 9 UNITS IV PUSH (21:24)
--- NOTE | 2020-05-28 21:33 | PM.IMHP ---
H&P: HPI History of Present Illness Date/Time: 05/28/20 21:33 Chief complaint: wily/hyperkalemia/uti Narrative: This is a 60 year old obese Diabetic male who presented to the hospital after being referred by his PCP for abnormal routine outpatient blood work that demonstrated an elevated WBC count. The patient has been experiencing dysuria for about 1 month now since he underwent drainage of a prostate abscess. He denies any fevers, chills, nausea, vomiting, abdominal pain, diarrhea, shortness of breath, cough, or chest pain. The patient was evaluated in the ER and found to have a grossly abnormal urinalysis, a Cr of 2.3, an elevated blood sugar of 508 mg/d, and an elevated WBC of 15,100. The patient was treated with insulin, IV fluids, and IV antibiotics. No other complaints. 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 CVA (cerebral vascular accident) CVA 2014 with left hemiparesis right frontoparietal, CVA January 2019 where he presented with confusion and aphasia and was found I will left parietal occipital region stroke at time Diabetic peripheral neuropathy Essential hypertension Hard of hearing Hyperlipidemia Obstructive sleep apnea refuses CPAP Prostate abscess Type 2 diabetes mellitus hemoglobin A1c of 6.1 02/21/2019 Vitamin D deficiency Surgical History Surgical History Cardiac pacemaker due to sick sinus syndrome History of hernia surgery History of transurethral resection of prostate Previous back surgery Family History Family History Mother Cerebrovascular accident Acute myocardial infarction Hypertension Father Diabetes mellitus Cerebrovascular accident Hypertension Social History Social History Social History: Primary care provider: Dina PALACIOS Code status: Full code Surrogate decision maker: Darling Rivers (Sister) Smoking packs per day: 1 Smoking cigarettes per day: 20.0 Years smoked: 45 Smoking pack-years: 45.00 Smoking status: Current some day smoker Tobacco type: cigarettes Alcohol intake: never Substance use: never Substance use type: marijuana Additional living arrangements comments: The patient lives in his of own apartment in [place]. Gender identity (if verbalized by the patient): Male Spiritual care concerns: No Meds Home Medications and Allergies Home Medications Medication Instructions Recorded Confirmed Type Tradjenta 5 mg PO DAILY 03/12/20 03/12/20 History amitriptyline 100 mg PO HS 03/12/20 03/12/20 History atorvastatin 80 mg PO HS 03/12/20 03/12/20 History clopidogrel 75 mg PO DAILY 03/12/20 03/12/20 History cyclobenzaprine 10 mg PO TID PRN 03/12/20 03/12/20 History docusate sodium [DOK] 200 mg PO DAILY 03/12/20 03/12/20 History ergocalciferol (vitamin D2) 1,250 mcg PO DAILY 03/12/20 03/12/20 History folic acid 1 mg PO DAILY 03/12/20 03/12/20 History gabapentin 900 mg PO TID 03/12/20 03/12/20 History hydroxyurea 500 mg PO DAILY 03/12/20 03/12/20 History levetiracetam 250 mg PO BID 03/12/20 03/12/20 History lisinopril 20 mg PO DAILY 03/12/20 03/12/20 History metoprolol succinate 50 mg PO DAILY 03/12/20 03/12/20 History nateglinide 120
[2020-05-28 22:13] LABS: Glucose Point of Care 333 (65-105)
[2020-05-28] MEDS: SODIUM CHLORIDE 0.9% IV 1,000 ML 125 ML IV CONT (23:41)
--- NOTE | 2020-05-28 23:51 | ADMGEN ---
This patient, Basilio Riley, was admitted to [facility] Room 316-01. Patient/family oriented to hospital policies and general routines including ID bracelet, bed and alarms, visiting hours, pain management, procedures, bathroom and other care routines, personal items, smoking policy, room service/diet, and visiting hours. Information on how to activate the Rapid Response Team has been discussed. Patient/Family are encouraged to report perceived risks to care and to ask questions if they do not understand what they are told or what they should do.
[2020-05-29] VITALS (9 sets, daily range): BP systolic 121–150; BP diastolic 72–74; PULSE 86–99; RESP 15–20; TEMP 36.4–37; O2SAT 96–100
[2020-05-29 00:25] LABS: Anion Gap 8 mmol/L (8-16); Blood Urea Nitrogen 59 mg/dL (9-20); Calcium 9.8 mg/dL (8.4-10.2); Carbon Dioxide 23 mmol/L (22-30); Chloride 105 mmol/L (98-107); Estimated CRCL calculation 44 ml/min; Estimated Glomerular Filt Rate 36; Glucose 339 mg/dL (75-110); Potassium 4.8 mmol/L (3.4-5.0); Sodium 136 mmol/L (137-145)
[2020-05-29] MEDS: INSULIN ASPART (*BKC) 100 UNITS/ML SUB-Q ×3 (02:10→18:36)
[2020-05-29 02:20] LABS: Glucose Point of Care 353 (65-105)
[2020-05-29 05:12] LABS: Glucose Point of Care 349 (65-105)
[2020-05-29 06:23] LABS: Basophils Absolute Auto 0.1 K/mm3 (0.0-0.1); Basophils Percent Auto 0.7 % (0.2-1.2); Eosinophils Absolute Auto 0.6 K/mm3 (0-0.3); Eosinophils Percent Auto 4.8 % (0-4.4); Hematocrit 30.3 % (42.0-52.0); Hemoglobin 9.7 g/dL (14.0-18.0); Immature Granulocyte Absolute 0.07 K/mm3 (0.00-0.031); Immature Granulocyte Percent A 0.6 % (0-0.5); Lymphocytes Absolute Auto 3.86 K/mm3 (0.9-3.2); Lymphocytes Percent Auto 32.7 % (18.3-44.2); Mean Platelet Volume 10.5 fl (7.4-10.4); Monocytes Absolute Auto 0.8 K/mm3 (0.1-0.6); Monocytes Percent Auto 6.5 % (2.6-8.5); Neutrophils Absolute Auto 6.5 K/mm3 (1.3-6.7); Neutrophils Percent Auto 54.7 % (45.5-73.1); Platelet Count Result 319 k/mm3 (150-375); Red Blood Count 3.03 M/mm3 (4.6-6.20); Red Cell Distribution Width 13.5 % (11.5-14.5); White Blood Count 11.8 K/mm3 (4.5-10.0)
[2020-05-29 06:38] LABS: Anion Gap 8 mmol/L (8-16); Blood Urea Nitrogen 51 mg/dL (9-20); Calcium 9.8 mg/dL (8.4-10.2); Carbon Dioxide 23 mmol/L (22-30); Chloride 107 mmol/L (98-107); Estimated CRCL calculation 58 ml/min; Estimated Glomerular Filt Rate 52; Glucose 385 mg/dL (75-110); Potassium 4.9 mmol/L (3.4-5.0); Sodium 138 mmol/L (137-145)
[2020-05-29 06:49] LABS: Hemoglobin A1C 11.5 % (<5.7)
[2020-05-29] MEDS: SODIUM CHLORIDE 0.9% IV 1,000 ML 125 ML IV CONT (07:51)
[2020-05-29 09:01] LABS: Glucose Point of Care 398 (65-105)
[2020-05-29 11:58] LABS: Glucose Point of Care 478 (65-105)
[2020-05-29] MEDS: INSULIN ASPART (*BKC) 100 UNITS/ML 10 UNITS SUB-Q (12:25)
--- NOTE | 2020-05-29 14:49 | PM.IMPN ---
Progress Note: A&P Assessment and Plan (1) Complicated UTI (urinary tract infection): Code(s): N39.0 - Urinary tract infection, site not specified Status: Acute Assessment and Plan: ------ patient is symptomatically better and his white blood cell count is better. Await urine cultures and sensitivities. Continue ceftriaxone at this time. He has a history of abscess of the prostate but CT isn't very specific on the findings. I am going to consult Urology and I appreciate their recommendations. if they are worried about abscess, consider switching to fluoroquinolone But would get EKG and continue on telemetry as he has a history of QTC prolongation. (2) Acute renal failure: Qualifiers: Acute renal failure type: unspecified Qualified Code(s): N17.9 - Acute kidney failure, unspecified Code(s): N17.9 - Acute kidney failure, unspecified Status: Acute Assessment and Plan: ----- improving. Will stop fluids since the patient has crackles and CT of the lungs showed possible pulmonary edema. (3) Leukocytosis: Qualifiers: Leukocytosis type: unspecified Qualified Code(s): D72.829 - Elevated white blood cell count, unspecified Code(s): D72.829 - Elevated white blood cell count, unspecified Status: Acute Assessment and Plan: -----Likely secondary to UTI. Monitor CBC (4) Chronic anemia: Code(s): D64.9 - Anemia, unspecified Status: Chronic Assessment and Plan: ------May be secondary to known myelodysplastic syndrome. No signs of acute blood loss. Monitor H/H, transfuse prn. . (5) Acute hyperkalemia: Code(s): E87.5 - Hyperkalemia Status: Acute Assessment and Plan: ---- Resolved. Likely secondary to acute renal failure. Monitor serum potassium. (6) Diabetes mellitus with hyperglycemia: Qualifiers: Diabetes mellitus type: type 2 Diabetes mellitus dye tub tender insulin use: without assisted use Qualified Code(s): E11.65 - Type 2 diabetes mellitus with hyperglycemia Code(s): E11.65 - Type 2 diabetes mellitus with hyperglycemia Status: Chronic Assessment and Plan: ----- A1c 11.5. The patient missed his morning dose of insulin which made his afternoon glucose exceptionally high. He was given 10 units at lunch and recheck in 2 hours and it was still high so he was given another 5 units. I am going to have the dietitian, talked to him and help educate him about diabetic diet. Looks like pt is only taking tradjenta at home. Will likely go home on lantus as well. we also spoke about yearly eye exams as well as daily foot checks (7) Essential hypertension: Code(s): I10 - Essential (primary) hypertension Status: Chronic Assessment and Plan: -----Last bp 130/72. continue metoprolol. Hold lisinopril d/t hyperkalemia and renal failure (8) Tobacco dependence: Code(s): F17.200 - Nicotine dependence, unspecified, uncomplicated Status: Chronic Assessment and Plan: ----- Tobacco cessation provided. Additional Plan Time Spent With Patient Time with patient: 25 - 35 minutes Subjective Date/time seen: 05/29/20 14:49 Interval history: Pt is a 60-year-old male with history of abscess of the prostate who is admitted here for dysuria and likely UTI. Patient was seen today and states he is feeling better compared to yesterday. He no longer has his dysuria and he has not noticed any hematuria. He denies nausea, vomiting, chest pain, shortness of breath, diarrhea or constipation. He has had a slight cough but not coughing anything up. He does not know his last A1c but states he does not eat a diabetic diet at home. He takes all his medications. When asked, he says he does not really know what to eat and would like more Education on that. Review of Systems Review of Systems: All systems reviewed & are unremar
--- NOTE | 2020-05-29 15:23 | PC.NURSE ---
On 05/29/20, the student, [Rishabh Young ], provided care and completed [facility] documentation on this patient. I have reviewed the student's documentation and agree with the findings.
[2020-05-29 15:34] LABS: Alanine Aminotransferase 18 U/L (4-50); Albumin Level 3.4 g/dL (3.5-5.1); Alkaline Phosphatase 129 U/L (38-126); Aspartate Amino Transferase 21 U/L (17-59); Bilirubin,Total 0.3 mg/dL (0.2-1.3); CRP 1.2 mg/dL (<1.0); Lactate Dehydrogenase 470 U/L (313-618)
[2020-05-29 18:22] LABS: Glucose Point of Care 258 (65-105)
[2020-05-29 18:28] LABS: Glucose Point of Care 394 (65-105)
[2020-05-29] MEDS: GABAPENTIN 300 MG CAPSULE PO (18:37)
[2020-05-29] MEDS: levETIRAcetam 250 MG TABLET PO (18:37)
[2020-05-29] MEDS: INSULIN GLARGINE (*BKC) 100 UNITS/ML 10 UNITS SUB-Q (20:24)
[2020-05-29] MEDS: ATORVASTATIN 40 MG TABLET 80 MG PO (20:31)
[2020-05-29 23:59] LABS: Glucose Point of Care 216 (65-105)
[2020-05-30 05:46] VITALS: BP 149/81; PULSE 93; RESP 18; TEMP 37; O2SAT 98
[2020-05-30 06:26] LABS: Hematocrit 33.7 % (42.0-52.0); Hemoglobin 10.9 g/dL (14.0-18.0); Mean Corpuscular HGB Conc 32.3 g/dl (32-36); Mean Corpuscular Hemoglobin 32.3 pg (26-34); Mean Platelet Volume 10.2 fl (7.4-10.4); Platelet Count Result 334 k/mm3 (150-375); Red Blood Count 3.37 M/mm3 (4.6-6.20); Red Cell Distribution Width 13.4 % (11.5-14.5); White Blood Count 12.5 K/mm3 (4.5-10.0)
[2020-05-30 06:41] LABS: Alanine Aminotransferase 20 U/L (4-50); Albumin Level 3.5 g/dL (3.5-5.1); Alkaline Phosphatase 131 U/L (38-126); Anion Gap 4 mmol/L (8-16); Aspartate Amino Transferase 19 U/L (17-59); Bilirubin,Total 0.3 mg/dL (0.2-1.3); Blood Urea Nitrogen 26 mg/dL (9-20); Calcium 10.8 mg/dL (8.4-10.2); Carbon Dioxide 31 mmol/L (22-30); Chloride 107 mmol/L (98-107); Estimated CRCL calculation 74 ml/min; Estimated Glomerular Filt Rate > 60; Glucose 230 mg/dL (75-110); Potassium 4.2 mmol/L (3.4-5.0); Sodium 142 mmol/L (137-145)
[2020-05-30 08:00] VITALS: PULSE 103
[2020-05-30] MEDS: CIPROFLOXACIN 400 MG/D5W 200ML 200 ML 200 MG IVPB (09:00)
[2020-05-30] MEDS: GABAPENTIN 300 MG CAPSULE PO ×2 (09:06→12:43)
[2020-05-30] MEDS: levETIRAcetam 250 MG TABLET PO (09:07)
[2020-05-30] MEDS: CLOPIDOGREL BISULFATE 75 MG TABLET PO (09:07)
[2020-05-30] MEDS: HYDROXYUREA (*CHEMO) 500 MG CAPSULE PO (09:07)
[2020-05-30] MEDS: ASPIRIN 81 MG CHEWABLE TABLET PO (09:07)
[2020-05-30] MEDS: FOLIC ACID 1 MG TABLET PO (09:07)
[2020-05-30] MEDS: INSULIN ASPART (*BKC) 100 UNITS/ML SUB-Q ×2 (09:14→12:43)
--- NOTE | 2020-05-30 09:15 | ECG_ITS ---
Measurements Intervals [place] Rate: 103 P: ND: 0 QRS: -79 QRSD: 161 T: 31 QT: 368 QTc: 482 Interpretive Statements ATRIAL FLUTTER/TACHYCARDIA WITH RAPID VENTRICULAR RESPONSE LEFT AXIS DEVIATION RIGHT BUNDLE BRANCH BLOCK LEFT VENTRICULAR HYPERTROPHY WITH ST-T CHANGE ANTERIOR INFARCT, AGE INDETERMINATE INFERIOR INFARCT, AGE INDETERMINATE ABNORMAL ECG Electronically Signed On 05-30-2020 11:29:34 CDT by Leonardo Song D.O.
--- NOTE | 2020-05-30 09:20 | WPDURCON ---
Assessment and Plan Assessment and plan (1) Leukocytosis: Qualifiers: Leukocytosis type: unspecified Qualified Code(s): D72.829 - Elevated white blood cell count, unspecified Code(s): D72.829 - Elevated white blood cell count, unspecified Status: Acute Assessment and Plan: Improving on IV antibiotics. Continue Ciprofloxacin. (2) Prostate abscess: Code(s): N41.2 - Abscess of prostate Status: Acute Assessment and Plan: Will plan to do a trans rectal US in 6 weeks and then follow up with DR. Stanton. NO further evaluation necessary at this time. Urology Consult Note HPI Date Seen: 05/30/20 Requesting Physician: Maggy Rain PA-C Primary Care Provider: Dina Cloud, PA Consult Narrative Narrative: Basilio Riley is a 60 year old male who presented to the ER with c/o dysuria and hematuria. 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 Creatinine is 1.10. He has a history of prostatitis with abscess noted on CT from 03/13/2020. He is comfortable this morning and denies rectal pain, abdominal or groin pain, he is afebrile and states his dysuria is improved. He also states his hematuria has resolved. His repeat CT from this visit, shows moderate improvement of his prostate abscess but does support prostatitis. 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 CVA (cerebral vascular accident) CVA 2014 with left hemiparesis right frontoparietal, CVA January 2019 where he presented with confusion and aphasia and was found I will left parietal occipital region stroke at time Diabetic peripheral neuropathy Essential hypertension Hard of hearing Hyperlipidemia Obstructive sleep apnea refuses CPAP Prostate abscess Type 2 diabetes mellitus hemoglobin A1c of 6.1 02/21/2019 Vitamin D deficiency Surgical History Surgical History Cardiac pacemaker due to sick sinus syndrome History of hernia surgery History of transurethral resection of prostate Previous back surgery Family History Family History Mother Cerebrovascular accident Acute myocardial infarction Hypertension Father Diabetes mellitus Cerebrovascular accident Hypertension Social History Social History Social History: Primary care provider: Dina PALACIOS Code status: Full code Surrogate decision maker: Darling Rivers (Sister) Smoking packs per day: 1 Smoking cigarettes per day: 20.0 Years smoked: 45 Smoking pack-years: 45.00 Smoking status: Current some day smoker Tobacco type: cigarettes Alcohol intake: never Substance use: never Substance use type: marijuana Additional living arrangements comments: The patient lives in his of own apartment in [place]. Gender identity (if verbalized by the patient): Male Spiritual care concerns: No Meds Home Medic
[2020-05-30 09:41] LABS: Glucose Point of Care 285 (65-105)
[2020-05-30 12:00] VITALS: PULSE 107
[2020-05-30 12:55] LABS: Glucose Point of Care 313 (65-105)
--- NOTE | 2020-05-30 13:10 | PM.DS ---
DS: Admitting Diagnosis Admitting Diagnosis Admitting Diagnosis: wily/hyperkalemia/uti DS: Discharge Diagnosis Discharge Diagnosis (1) Complicated UTI (urinary tract infection): Code(s): N39.0 - Urinary tract infection, site not specified Status: Acute Assessment and Plan: ------ patient is symptomatically better and felt back to baseline. Urine culture negative but CT shows evidence of (improving) prostatitis and patient had dysuria so will go ahead and treat with ciprofloxacin. Plans to follow-up with urology outpatient. Blood cultures have no growth today and will be monitored until finalized. EKG reviewed, QTC improved. EKG shows chronic changes. Patient has absolutely no chest pain. (2) Acute renal failure: Qualifiers: Acute renal failure type: unspecified Qualified Code(s): N17.9 - Acute kidney failure, unspecified Code(s): N17.9 - Acute kidney failure, unspecified Status: Acute Assessment and Plan: -----improved. (3) Leukocytosis: Qualifiers: Leukocytosis type: unspecified Qualified Code(s): D72.829 - Elevated white blood cell count, unspecified Code(s): D72.829 - Elevated white blood cell count, unspecified Status: Acute Assessment and Plan: -----Likely secondary to UTI. (4) Chronic anemia: Code(s): D64.9 - Anemia, unspecified Status: Chronic Assessment and Plan: ------May be secondary to known myelodysplastic syndrome. No signs of acute blood loss. Monitor H/H, transfuse prn. . (5) Acute hyperkalemia: Code(s): E87.5 - Hyperkalemia Status: Acute Assessment and Plan: ---- Resolved. Likely secondary to acute renal failure. (6) Diabetes mellitus with hyperglycemia: Qualifiers: Diabetes mellitus type: type 2 Diabetes mellitus longterm insulin use: without intermediate designer use Qualified Code(s): E11.65 - Type 2 diabetes mellitus with hyperglycemia Code(s): E11.65 - Type 2 diabetes mellitus with hyperglycemia Status: Chronic Assessment and Plan: -----last glucose 313. I spoke with the patient about his diabetes regimen and he states that he takes Humalog and Lantus at home although this was not on his med rec. He cannot remember the doses but has been following with his primary to improve his A1c. He was likely running high here at the hospital because we were under dosing him since we did not realize he was taking insulin at home. He was educated on a diabetic diet, provided supplemental readings, and met with a dietitian. A1c 11.5. Educated on yearly eye exams and daily foot checks. (7) Essential hypertension: Code(s): I10 - Essential (primary) hypertension Status: Chronic Assessment and Plan: -----Last bp 149/81. continue metoprolol. Lisinopril continued but I called the primary care physician and let them know about watching the potassium and they are going to redraw BMP in 1 week (8) Tobacco dependence: Code(s): F17.200 - Nicotine dependence, unspecified, uncomplicated Status: Chronic Assessment and Plan: ----- Tobacco cessation provided. DS: Summary Hospital Course Reason for hospitalization: Abnormal labs, leukocytosis and hypokalemia Hospital Course: Patient is a 60-year-old male who presented emergency room for abnormal labs with leukocytosis, hyperkalemia, and elevated glucose. He also had mentioned that he had dysuria as well. White blood cell count was 15.1, hemoglobin 10.3, hematocrit 31.1, platelets 353. Potassium 5.9, creatinine 2.3, glucose 508. Vitals in the ER were temperature 97.4?, pulse 100, respiratory rate 16, blood pressure 104/50, pulse ox 100. UA suspicious for UTI with 3+ leukocyte esterases, blood and greater than 75 white blood cells. Patient was admitted to the hospitalist service and started on ceftriaxone. His pain improved with this treatment
--- NOTE | 2020-05-30 14:51 | PCNSR ---
On 05/30/20, the student, Nai Cao, provided care and completed [facility] documentation on this patient. I have reviewed the student's documentation and agree with the findings.
--- NOTE | 2020-06-05 12:47 | PC.NURSE ---
Blood cx are negative.
== END 2020-05-30 14:35 | disposition home or self-care (01) ==
LOC: ANHED 21:19 → ANH3MEDSUR 22:50
PROVIDERS: Physician Assistant; Admitting Provider Family Medicine; Emergency Provider Emergency Medicine; PCP Physician Assistant; Visit Provider Family Medicine
DX: N17.9 Acute kidney failure, unspecified (principal); N39.0 Urinary tract infection, site not specified; D72.829 Elevated white blood cell count, unspecified; I12.9 Hypertensive chronic kidney disease with stage 1 through stage 4 chronic kidney disease, or unspecified chronic kidney disease; D63.1 Anemia in chronic kidney disease; E11.65 Type 2 diabetes mellitus with hyperglycemia; E87.5 Hyperkalemia; E66.9 Obesity, unspecified; E11.22 Type 2 diabetes mellitus with diabetic chronic kidney disease; F17.210 Nicotine dependence, cigarettes, uncomplicated; G47.33 Obstructive sleep apnea (adult) (pediatric); N18.30 Chronic kidney disease, stage 3 unspecified; N41.2 Abscess of prostate; Z95.0 Presence of cardiac pacemaker; Z68.35 Body mass index [BMI] 35.0-35.9, adult; Z79.4 Long term (current) use of insulin
CPT/HCPCS: 36415; 74176; 80048; 80076; 81001; 82728; 82948; 83036; 83605; 83615; 85025; 85027; 86140; 87040; 87086; 93005; 96361; 96365; 96375; 99285; A9270; G0378; G0379; J0696; J0744; J1815; J7030; V5014

== ENCOUNTER 2020-08-22 13:53 | Outpatient (CLI) | payer OTHER, SELFPAY ==
--- NOTE | 2020-08-22 | ECHO_ITS ---
Patient Info Name: Basilio Riley Age: 60 years : 1960 Gender: Male Ht: 69 in Wt: 240 lbs BSA: 2.34 m2 HR: 95 bpm BP: 117 / 70 mmHg Heart Rhythm: Paced Technical Quality: Good Exam Date: 08/22/2020 2:47 PM Exam Location: [facility] Patient Status: Outpatient Admit Date: 08/22/2020 Staff Ordering Physician: Marissa, Joseph Olvera MD Core Layer Machine Operator: Camilo Walters RDCS Attending Provider: Joseph, Joseph Olvera MD Referring Physician: Marissa PLUNKETT; Exam Type: CA echo doppler color flow Study Info Indications R55 - Syncope and collapse Complete two-dimensional, color flow and Doppler transthoracic echocardiogram is performed. Strain analysis performed. History/Risk Factors Syncope. Summary 1. Complete two-dimensional, color flow and Doppler transthoracic echocardiogram is performed. 2. Left ventricular chamber size and systolic function are normal with no regional wall motion abnormalities with an estimated ejection fraction of 65-70%. Moderate to severe left ventricular hypertrophy is present with grade 1 diastolic dysfunction. Global longitudinal strain is mildly diminished at 60% suggesting early systolic dysfunction. 3. Left atrial chamber dimension is mildly enlarged. 4. Probable pacemaker and right ventricle. 5. No significant valve disease. 6. Heart rhythm appears paced. Left Ventricle Left ventricular chamber dimension is normal. Left ventricular systolic function is normal, estimated at 65-70%. There is moderate concentric increased left ventricular wall thickness. Left ventricular septal wall motion is normal. The left ventricular diastolic function is grade I diastolic dysfunction. Global longitudinal strain is mildly elevated at Empty. Left ventricular chamber size and systolic function are normal with no regional wall motion abnormalities with an estimated ejection fraction of 65-70%. Moderate to severe left ventricular hypertrophy is present with grade 1 diastolic dysfunction. Global longitudinal strain is mildly diminished at 60% suggesting early systolic dysfunction. Right Ventricle Right ventricular chamber dimension is normal. Right ventricular systolic function is normal. Linear artifact in right ventricle suggestive of catheter(s), pacemaker lead(s), or ICD lead(s). Left Atria Left atrial chamber dimension is mildly enlarged. Right Atria Right atrial chamber dimension is normal. Aortic Valve The aortic valve is trileaflet. There is mild aortic valve sclerosis. There is no aortic valve stenosis. There is no aortic valve regurgitation. Pulmonic Valve The pulmonic valve is normal. There is no pulmonic valve stenosis. There is no pulmonic regurgitation. Mitral Valve The mitral valve has normal leaflets. There is no mitral valve stenosis. There is no mitral valve regurgitation. Tricuspid Valve The tricuspid valve leaflets are normal. There is no significant tricuspid valve stenosis. There is no tricuspid valve regurgitation. No pulmonary hypertension, estimated pulmonary arterial systolic pressure is Empty. Pericardium/Pleural The pericardium appears normal. There is no pericardial effusion. Inferior Vena Cava Normal inferior vena cava with >50% collapse upon inspiration consistent with Empty right atrial pressure, 5 mmHg. Aorta The aortic root size at the sinus of Valsalva is normal. The prox ascending aorta size is normal. Left Ventricular Outflow Tract
--- NOTE | ~2020-08-22 | US_ITS ---
EXAMINATION: US carotid duplex BI DATE: 08/22/2020 14:51 INDICATION: Syncope. TECHNIQUE: Grayscale, color Doppler, and pulsed Doppler images of the cervical carotid arteries were obtained. The degree of vessel stenosis is placed in one of the following categories: normal, <50%, 5 0-69%, >=70% but less than near-occlusion, near-occlusion, or total occlusion. Note that percent sten osis relative to normal distal artery lumen diameter is indirectly measured from velocity measurement s as described by Catracho, et al. Radiology 2003; 229:340-346. COMPARISON: Ultrasound 07/04/2019 FINDINGS: RIGHT: The right common carotid artery (CCA) is totally occluded. The right internal carotid artery (ICA) is totally occluded. There is no visualized flow in the right vertebral artery. LEFT: The left CCA peak systolic velocity (PSV) is 114 cm/s. The left ICA PSV is 223 cm/s. The left ICA end -diastolic velocity (EDV) is 56 cm/s. The left ICA/CCA PSV ratio is 2.0. Grayscale and color Doppler images yield an estimate of <50% diameter reduction from plaque in the ICA. There is antegrade flow i n the left vertebral artery. IMPRESSION: 1. 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 2. <50% stenosis in the left internal carotid artery. 3. No visualized flow in right vertebral artery. Reviewed, dictated and finalized at location B. INERY ENGINEER
== END 2020-08-22 13:54 | disposition home or self-care (01) ==
PROVIDERS: PCP Physician Assistant; Visit Provider Hospitalist
DX: I65.23 Occlusion and stenosis of bilateral carotid arteries (principal)
CPT/HCPCS: 93306; 93880

== ENCOUNTER 2021-02-27 09:00 | Outpatient (RCR) | payer OTHER, SELFPAY ==
--- NOTE | 2021-01-21 10:32 | PTOPEVAL ---
PHYSICAL THERAPY EVALUATION Thank you for referring Basilio Riley to [facility].? Rommel was evaluated for the dx of diabetic polyneuropathy/low back pain. The patient is scheduled to be seen for therapy? 2 x/week for 5 weeks. Please review, sign, date and return this plan of care ILANA. I agree with and certify that the following plan of care is medically necessary. Referring Physician Date Attending Provider: MD Abhishek Harper Referring Provider: *PT Outpatient Evaluation Start: 01/21/21 09:27 Freq: Status: Active Protocol: Document 01/21/21 09:27 [facility] (Rec: 01/21/21 10:11 MLV [id number]) Therapy Assessment Status Assessment Status Evaluation Evaluation Information Problem Diagnosis diabetic polyneuropathy, low back pain Onset decline worse in the last year Cause no injury Additional Evaluation Detail Patient reports a decrease in walking ability/balance due to an increase in neuropathy/ numbness at his legs. The patient is on disability and has a long hx of back trouble affecting his normal activities. Patient lives alone in an apt and has an aide that does the cleaning and takes him shopping/errands. The patient does not drive, does a little bit of cooking but limited due to standing limits. The patient reports limited standing also due to blacking out easily from heart issues/ the patient had a pacemaker placed about 5-6 yrs ago. The patient has very limited sensation at his feet (left worse than right) and his hands. Previous Treatments Previous Treatments For This Problem pool therapy years ago, got relief for better mobility Pain Assessment Timing of Pain Assessment Timing of Pain Assessment Assessment Pain Scale Pain Scale Used Numeric (1 - 10) Self Report Pain Assessment Lower Back Reported Pain Level 8 Pain Description Aching Pain Frequency Chronic Pain Aggravating Factors Stair Climbing,Walking,Weight Bearing/Standing Pain Behaviors Limping Pain Score Pain Score
--- NOTE | 2021-01-21 11:20 | OTOPEVAL ---
OCCUPATIONAL THERAPY INITIAL EVALUATION REPORT 01/21/21 Thank you for referring Basilio Riley to [facility] The patient is scheduled to be seen for occupational therapy? 1x/week for 5 weeks. Please review, sign, date and return this plan of care ILANA. I agree with and certify that the following plan of care is medically necessary. Referring Physician Date Referring Provider: Meredith Weiss MD *OT Outpatient Evaluation Start: 01/21/21 10:12 Therapy Assessment Status Assessment Status Assessment Status Evaluation Outpatient Past Medical History Past Medical History Source of Past Medical History Patient,Recalled from Previous Visit, Confirmed with Patient /Family Neurological History Hx Cerebrovascular Accident (CVA) Yes: Multiple CVAs Hx Other Neurological Disorders Yes: Diabetic PN Cardiovascular History Hx Cardiac Catheterization Yes Hx Hypercholesterolemia Yes Hx Hypertension Yes Hx Myocardial Infarction Yes Hx Pacemaker Yes Respiratory History Hx Chronic Obstructive Pulmonary Disease Yes (COPD) Hx Pneumonia Yes Hx Other Respiratory Disorders Yes: Current smoker Gastrointestinal History Hx Gastrointestinal Disorders No Significant History Genitourinary History Hx Urinary Tract Infection Yes Hx Other Genitourinary Disorders Yes: TURP procedure Musculoskeletal History Hx Back Injury Yes Hx Back Pain Yes Hematological History Hx Anemia Yes: Receives iron infusions Hx Blood Transfusions Yes Hx Leukemia Yes Endocrine History Hx Diabetes Yes: DM II HEENT History Hx HEENT Disorders No Significant History Integumentary History Hx Skin Disorders No Significant History Reproductive History Hx Reproductive Disorders No Significant History Psychosocial History Hx Psychiatric Disorders No Significant History Pain History Has Past Pain Affected Your Daily Life Yes: Back pain Effective Methods of Pain Control Tramadol, Marijuana Anesthesia History Hx Anesthesia Reactions No Significant History Other History Hx Cancer Yes: Currently has leukemia, takes meds PO Evaluation Information Problem Diagnosis Diabetic polyneuropathy associated with type II DM Subjective Information Patient reports having Query Text:As Reported By Patient/ polyneuropathy for a few Family years . He reports an increase in his symptoms after undergoing TURP procedure ~1 year ago. Reports his feet are more affected than his h
--- NOTE | 2021-02-06 09:04 | PCPTNOTE ---
Patient cancelled scheduled appointment this date due to Pool water temperature and back pain.
--- NOTE | 2021-02-14 12:12 | PCPTNOTE ---
Patient called & cancelled scheduled appointment this date due to not feeling well.
--- NOTE | 2021-02-27 08:53 | OTOPEVAL ---
OCCUPATIONAL THERAPY RE-EVALUATION AND DISCHARGE SUMMARY 02/27/21 Patient presents for OT re-evaluation with some slight changes in left UE strength and fine motor coordination since beginning OT on 01/21/21. He unfortunately reports no functional carryover. He is currently independent with HEPs for strength and coordination. No further skilled OT indicated at this time. Thank you for referring Basilio Riley to [facility]. Please review, sign, date and return this discharge note ILANA. I agree with and certify that the following plan of care is medically necessary. Referring Physician Date Referring Provider: Meredith Weiss MD *OT Outpatient Re-Evaluation Start: 01/21/21 10:12 Problem Diagnosis Diabetic polyneuropathy associated with type II DM Additional Evaluation Detail Basilio has participated in 4 outpatient OT sessions for UE strengthening, functional fine motor coordination, and education on adaptive ADL techniques. Subjective Information Patient reports no changes Query Text:As Reported By Patient/ functionally and states he Family does not feel any stronger. Pain Assessment Timing of Pain Assessment Timing of Pain Assessment Pre-Treatment Pain Scale Pain Scale Used Numeric (1 - 10) Self Report Pain Assessment Bilateral Hand(s) Reported Pain Level 0 Additional Pain Comments No pain in bilat hands, just reports numb . Lower Back Reported Pain Level 9 Pain Description Sharp Pain Score Pain Score 0,9: Self Report Interventions Used Interventions Used By Clinicians Rest Upper Extremity Range of Motion General Upper Extremity Range of Motion Reason Not Measured WNL/Left,WNL/Right Upper Extremity Muscle Strength Testing Scapular/Shoulder Left Shoulder Flexion Strength 4 Good Shoulder Extension Strength 4+ Good + Shoulder Abduction Strength 4 Good Shoulder Adduction Strength 4+ Good + Right Shoulder Flexion Strength 4+ Good + Shoulder Extension Strength 4+ Good + Shoulder Abduction Strength 4 Good Shoulder Adduction Strength 4+ Good + Elbow/Forearm Bilateral Elbow Flexion Strength 4+ Good + Elbow Extension Strength 4+ Good + Wrist Strength Left Wrist Flexion Strength 4- Good - Wrist Extension Strength 4 Good Right Wrist Flexion Strength 4+ Good + Wrist Extension Strength 4+ Good + Hand Calender Let Off Operator/Pinch Strength Assessment Hand Left Calender Let Off Operator Strength (lbs) 43 Lateral Pinch Strength (lbs) 6 Palmar Pinch Strength (lbs) 4 Hand Calender Let Off Operator/Pinch Strength Comments Measurements at the initial carlene
--- NOTE | 2021-02-27 09:15 | PTOPEVAL ---
PHYSICAL THERAPY DISCHARGE Thank you for referring Basilio Riley to [facility].? The patient has completed 8 visits of aquatic therapy. Goals are not met due to severity of pt condition. DC PT at this time. Please review, sign, date and return this plan of care ILANA. I agree with and certify the following plan. Referring Physician Date Attending Provider: MD Abhishek Harper *PT Outpatient Discharge Start: 01/21/21 09:27 Freq: Status: Active Protocol: Document 02/27/21 08:47 [facility] (Rec: 02/27/21 09:15 MLV [id number]) Therapy Assessment Status Assessment Status Assessment Status Discharge Evaluation Information Problem Diagnosis Diabetic polyneuropathy associated with type II DM and sever LBP Cause no injury Additional Evaluation Detail The patient reports no relief of pain overall, but gets a temporary relief of pain with the pool therapy. The patient continues to have pain at low back and has worse pain with any walking activities. The patient reports no significant relief with the pain meds. Pain Assessment Timing of Pain Assessment Timing of Pain Assessment Assessment Pain Scale Pain Scale Used Numeric (1 - 10) Self Report Pain Assessment Bilateral Hand(s) Reported Pain Level 0 Pain Description Tingling Additional Pain Comments No pain in bilat hands, just reports numb . Lower Back Reported Pain Level 9 Pain Description Sharp,Stabbing,Tightness Pain Frequency Chronic Pain Aggravating Factors ADL's,Bending,Coughing/ Sneezing,Exercise/Activity, Lifting,Prolonged Position, Walking,Weight Bearing/ Standing Pain Behaviors Guarding,Irritable,Restless Pain Score Pain Score 0,9: Self Report Interventions Used Interventions Used By Clinicians Education,Exercise,Water Modality Pain Relief Interventions Used By Inactivity/Rest,Medication, Patient Position Change Cervical and Lumbar ROM Lumbar ROM Lumbar Flexion Active Mid [place]on Query Text:Hands to: Lumbar Extension (0-40) 10 Query Text:Active in Degrees Lumbar Lateral Flexion Right (0-40) 25 Query Text:Active in Degrees Lumbar Lateral Flexion Left (0-40) 10 Query Text:Active in Degrees Later
== END 2021-04-10 11:51 | disposition home or self-care (01) ==
LOC: ANHPT 09:00
PROVIDERS: PCP Physician Assistant
DX: E11.42 Type 2 diabetes mellitus with diabetic polyneuropathy (principal)
CPT/HCPCS: 97110; 97113; 97116; 97162; 97163; 97166; 97530

== ENCOUNTER 2021-05-06 08:34 | Outpatient (CLI) | payer OTHER, SELFPAY ==
--- NOTE | ~2021-05-06 | CT_ITS ---
EXAMINATION: CT lumbar spine wo con DATE: 05/06/2021 09:05 INDICATION: Lumbago. Lumbar radiculopathy. TECHNIQUE: Computed tomography (CT) of the lumbar spine was performed without intravenous contrast. A utomated exposure control and iterative reconstruction technique were employed. The dose-length produ ct was 1210.09 mGy-cm. COMPARISON: None FINDINGS: There is 10 degrees levoscoliosis of lumbar spine. There is a chronic compression fracture of L3 with changes of vertebroplasty. There is severely decreased disc height at L4-L5 and L5-S1 with endplate remodeling. There is vacuum disc phenomenon at L4-L5 and L5-S1. There is epidural gas poste rior to S1 vertebral body, likely arising from the L5-S1 vacuum disc phenomenon. The following disc l evels are specifically discussed: L1-L2: The disc is bulging. There is mild right and moderate left facet joint osteoarthritis. There i s no neural foraminal stenosis. There is mild central canal stenosis. L2-L3: The disc is bulging. There is mild bilateral facet joint osteoarthritis. There is mild bilater al neural foraminal stenosis. There is mild central canal stenosis. L3-L4: The disc is bulging. There is mild bilateral facet joint osteoarthritis. There is mild bilater al neural foraminal stenosis. There is mild central canal stenosis. L4-L5: The disc is bulging with superimposed central extrusion. There is moderate right and mild left facet joint osteoarthritis. There is moderate bilateral neural foraminal stenosis. There is mild charan tral canal stenosis. There is severe stenosis of right lateral recess and moderate stenosis of left l ateral recess. L5-S1: The disc is bulging. There is mild bilateral facet joint osteoarthritis. There is moderate lindsay ateral neural foraminal stenosis. There is mild central canal stenosis. IMPRESSION: 1. Severe lower lumbar spondylosis. Reviewed, dictated and finalized at location A.
== END 2021-05-06 08:35 | disposition home or self-care (01) ==
LOC: ANHIMG 08:38
PROVIDERS: PCP Physician Assistant; Visit Provider Nurse Practitioner Family
DX: M54.50 Low back pain, unspecified (principal); M54.16 Radiculopathy, lumbar region; M47.816 Spondylosis without myelopathy or radiculopathy, lumbar region
CPT/HCPCS: 72131

== ENCOUNTER 2021-09-02 08:02 | Outpatient (CLI) | payer OTHER, SELFPAY ==
--- NOTE | ~2021-09-02 | CT_ITS ---
EXAMINATION: CT thoracic spine wo con DATE: 09/02/2021 08:19 INDICATION: Thoracic radiculopathy. TECHNIQUE: Computed tomography (CT) of the thoracic spine was performed without intravenous contrast. Automated exposure control and iterative reconstruction technique were employed. The dose-length pro duct was 1288.94 mGy-cm. COMPARISON: None FINDINGS: There is 13 degrees levoscoliosis of upper thoracic spine. Vertebral body heights are mattie l. There is severely decreased disc height at T7-T8 and T8-T9, moderately decreased disc height at T9 -T10, and mildly decreased disc height at T10-T11 and T11-T12 with endplate remodeling. Partially vis ualized is severe cervical spondylosis. There is multilevel facet joint osteoarthritis in thoracic sp ine, severe on the right at T4-T5 and T5-T6 and on the left at T1-T2, T2-T3, and T5-T6. There is mild neural foraminal stenosis at many levels. On the right, there is moderate neural foraminal stenosis at T3-T4. On the left, there is moderate neural foraminal stenosis at T5-T6, T6-T7, T7-T8, and T8-T9. There is mild central canal stenosis at T7-T8, T8-T9, T9-T10, T10-T11, and T11-T12. IMPRESSION: 1. Severe thoracic and cervical spondylosis. 2. Upper thoracic levoscoliosis. Reviewed, dictated and finalized at location A. IC HEALTH TECHNICIAN
== END 2021-09-02 08:03 | disposition home or self-care (01) ==
LOC: ANHIMG 08:06
PROVIDERS: PCP Physician Assistant; Visit Provider Nurse Practitioner Family
DX: M54.14 Radiculopathy, thoracic region (principal); M43.02 Spondylolysis, cervical region; M43.04 Spondylolysis, thoracic region; M41.84 Other forms of scoliosis, thoracic region
CPT/HCPCS: 72128

== ENCOUNTER 2021-12-02 07:28 | Outpatient (CLI) | payer OTHER, SELFPAY ==
--- NOTE | ~2021-12-02 | CT_ITS ---
EXAMINATION: CT lung screening DATE: 12/02/2021 07:49 INDICATION: Personal history of nicotine dependence, current smoker with 50+ pack year history TECHNIQUE: Computed tomography (CT) of the chest was performed without intravenous contrast. The dose -length product (DLP) was 267.67 mGy-cm. Automated exposure control and iterative reconstruction tech [email or web address] were employed. COMPARISON: 03/13/2020 FINDINGS: There is mild atelectasis. No suspicious pulmonary nodules are identified. There is no pleu ral effusion or pneumothorax. No pathologically enlarged thoracic lymph nodes are identified. The hea rt size is normal. Calcified coronary artery atherosclerosis is noted. A dual-lead cardiac pacemaker of the left chest wall ends with leads in expected locations. There is severe thoracic spondylosis. IMPRESSION: 1. Lung-RADS category 1: Negative. Continue annual screening with noncontrast low-dose chest CT in 12 months. Reviewed, dictated and finalized at location A. IMPRESSION: 1. Lung-RADS category 1: Negative. Continue annual screening with noncontrast l ow-dose chest CT in 12 months.
== END 2021-12-02 07:29 | disposition home or self-care (01) ==
LOC: ANHIMG 07:32
PROVIDERS: PCP Physician Assistant; Visit Provider Physician Assistant
DX: Z12.2 Encounter for screening for malignant neoplasm of respiratory organs (principal); F17.210 Nicotine dependence, cigarettes, uncomplicated
CPT/HCPCS: 71271

== ENCOUNTER 2021-12-26 12:55 | Outpatient (RCR) | payer OTHER, SELFPAY | END 2022-02-25 09:17 | disposition home or self-care (01) | LOC: ANHAUDIO 12:55 | PROVIDERS: PCP Physician Assistant; Referring Provider Physician Assistant; Visit Provider Physician Assistant | DX: Z46.1 Encounter for fitting and adjustment of hearing aid (principal) | CPT/HCPCS: 92593 ==

== ENCOUNTER 2022-03-05 12:26 | Outpatient (CLI) | payer OTHER, SELFPAY | END 2022-03-05 12:27 | disposition home or self-care (01) | LOC: ANHAUDIO 12:28 | PROVIDERS: PCP Physician Assistant; Visit Provider Physician Assistant | DX: H91.93 Unspecified hearing loss, bilateral (principal) | CPT/HCPCS: 92557; 92567 ==

== ENCOUNTER 2022-05-02 07:11 | Outpatient (CLI) | payer OTHER, SELFPAY ==
--- NOTE | ~2022-05-02 | CT_ITS ---
EXAMINATION: CT lumbar spine wo con DATE: 05/02/2022 07:40 INDICATION: Spinal stenosis. Low back pain. TECHNIQUE: Computed tomography (CT) of the lumbar spine was performed without intravenous contrast. A utomated exposure control and iterative reconstruction technique were employed. The dose-length produ ct was 1110.55 mGy-cm. COMPARISON: CT lumbar spine 05/06/2021 FINDINGS: There is 6 degrees levocurvature of lumbar spine. There is mild chronic anterior wedging of T12 and L1 vertebral bodies, likely physiologic. There is a chronic compression fracture of L3 with 2/5 loss of height and changes of vertebroplasty. There is severely decreased disc height at L4-L5 an d L5-S1 with endplate remodeling. The following disc levels are specifically discussed: L1-L2: The disc is bulging. There is mild right and severe left facet joint osteoarthritis. There is no neural foraminal stenosis. There is mild central canal stenosis. L2-L3: The disc is bulging. There is mild bilateral facet joint osteoarthritis. There is mild bilater al neural foraminal stenosis. There is mild central canal stenosis. L3-L4: The disc is bulging. There is mild right and moderate left facet joint osteoarthritis. There i s mild bilateral neural foraminal stenosis. There is mild central canal stenosis. L4-L5: The disc is bulging. There is moderate and mild left facet joint osteoarthritis. There is mode rate bilateral neural foraminal stenosis. There is mild central canal stenosis. There is severe steno sis of right lateral recess and moderate stenosis of left lateral recess. L5-S1: The disc is bulging. There is mild bilateral facet joint osteoarthritis. There is moderate lindsay ateral neural foraminal stenosis. There is mild central canal stenosis. IMPRESSION: 1. Severe lower lumbar spondylosis, stable from 05/06/2021. Reviewed, dictated and finalized at location A.
== END 2022-05-02 07:12 | disposition home or self-care (01) ==
LOC: ANHIMG 07:16
PROVIDERS: PCP Physician Assistant; Visit Provider Anesthesiology Pain Medicine
DX: M48.061 Spinal stenosis, lumbar region without neurogenic claudication (principal); M47.816 Spondylosis without myelopathy or radiculopathy, lumbar region
CPT/HCPCS: 72131

== ENCOUNTER 2022-10-13 12:40 | Outpatient (CLI) | payer OTHER, SELFPAY ==
--- NOTE | ~2022-10-13 | US_ITS ---
EXAMINATION: US scrotum doppler DATE: 10/13/2022 13:55 INDICATION: Left testicular pain TECHNIQUE: Testicular sonogram utilizing grayscale and Doppler COMPARISON: None. FINDINGS: The right testis measures 4.0 x 1.8 x 2.8 cm. The left testis measures 4.0 x 1.7 x 2.6 cm. 1-2 mm foc al echogenicity in the left testis likely representing dystrophic calcification. Otherwise symmetric normal grayscale appearance to both testes. There is normal vascular flow to both testes. The right e pididymis is normal with normal vascular flow. The left epididymis is normal with normal vascular magali w. There is no varicocele or hydrocele. IMPRESSION: 1. 1-2 mm likely dystrophic calcification in the left testis. Otherwise normal scrotal ultrasound wi th no evident etiology for left testicular pain. Reviewed, dictated and finalized at location B. IMPRESSION: 1. 1-2 mm likely dystrophic calcification in the left testis. Otherwise normal scrotal ultrasound with no evident etiology for left testicular pain.
== END 2022-10-13 12:41 | disposition home or self-care (01) ==
PROVIDERS: PCP Physician Assistant; Visit Provider Podiatrist Foot & Ankle Surgery
DX: N50.812 Left testicular pain (principal); N50.89 Other specified disorders of the male genital organs
CPT/HCPCS: 76870; 93976

== ENCOUNTER 2022-10-20 08:00 | Outpatient (RCR) | payer OTHER, SELFPAY ==
--- NOTE | 2022-08-21 10:03 | PTOPEVAL1 ---
Assessment and note entered by Dimitry Barton, PT Evaluation Information Assessment Status Evaluation Diagnosis chronic low back Onset after first CVA 6-7 years ago Subjective Information Patient reports severe low back pain for multiple years. He states injections, vertebroplasty, pain medications do not do much for the pain. Only thing that gives him relief for a day or two is aquatic therapy. Patient reports that he is unable to do any surgery or use E-stim secondary to his pacemaker. Patient has trouble with walking. stairs, picking up items, or movement in general. Reports he uses a cane and walker depending how bad he hurts, does not have any assistive device at time of therapy. Patient is on hospice. Reported Pain Level Pain Score 8: Self Report Additional Pain Score Comments reports he keeps meaning to get a heating pad Assessment PT Clinical Summary Rommel is a 62 year old male coming into the clinic with chronic low back pain. He is severely limited secondary to pain with participation during evaluation. He has been to the clinic before with self reported improvements following aquatic therapy. Will work with the patient strictly in the pool to help improve functional mobility, strengthening, range of motion, and decrease pain. Plan of Care Interventions Aquatic Therapy,Gait Training,Hot Pack/Cold Pack, Manual Therapy,Neuro Re-education,Patient/ Caregiver Education,Therapeutic Activities, Therapeutic Exercise,Ultrasound PT Services Indicated Yes Treatment Frequency and 2x/wk for 4 weeks Duration These treatments will address the objective and functional deficits as defined above. The patient will be advanced safely and appropriately in order for the patient to progress towards his/her prior level of function. Additional exercises will be introduced and as well as a comprehensive home exercise program upon discharge, if needed, ?to ensure carryover of functional gains achieved in the clinic. This treatment plan has been reviewed and agreement upon by the patient.
--- NOTE | 2022-09-22 10:31 | PTOPREEVAL ---
Assessment and note entered by Dimitry Barton, PT Evaluation Information Assessment Status Re-evaluation Diagnosis chronic low back pain Onset after first CVA 6-7 years ago. Subjective Information Patient reports the back pain is still there at 7- 8 consistently going up to 10 frequently throughout the week. Pain is worse with any standing exercises such as walking. Report he has looked into going to [facility] for their heated pool to continue aquatic therapy. He cannot get insurance to cover it, but the cost is 25 dollars a month and he should be able to swing that. Reported Pain Level Pain Score 8: Self Report Assessment PT Clinical Summary Patient still showing severe pain and decreased mobility along with inability to tolerate land therapy. Patient's plan is to continue to do aquatic physical therapy while getting started at the heated pool in [facility] and figuring out a HEP that he can do there to help with pain control and mobility. Plan of Care Interventions Aquatic Therapy,Gait Training,Manual Therapy, Patient/Caregiver Education,Therapeutic Activities, Therapeutic Exercise PT Services Indicated Yes Treatment Frequency and 1-2x/wk for 4 weeks Duration These treatments will address the objective and functional deficits as defined above. The patient will be advanced safely and appropriately in order for the patient to progress towards his/her prior level of function. Additional exercises will be introduced and as well as a comprehensive home exercise program upon discharge, if needed, ?to ensure carryover of functional gains achieved in the clinic. This treatment plan has been reviewed and agreement upon by the patient.
--- NOTE | 2022-10-20 10:12 | PTOPDC ---
Assessment and note entered by Dimitry Barton, PT Evaluation Information Assessment Status Discharge Diagnosis Chronic low back pain Onset after first CVA 6-7 years ago Subjective Information Patient and guest report that he did sign up at [facility] to use their pool, but they had a disagreement with someone there so cancelled that and were looking into eventually getting into the [facility]. Reported Pain Level Pain Score 9: Self Report Additional Pain Score Comments Patient reports constant pain, with the jets in the pool giving small occasional relief. Also reports his doctor trying a different pain med, but the patient and guest report they do not like it. Assessment PT Clinical Summary Rommel is a 62 year old male coming into the clinic for a diagnosis of Chronic back pain. They were evaluated on 08/21/22 and attended 14 sessions. Patient only able to tolerate aquatic therapy, unable to tolerate any land therapy. He was unable to meet goals as he was not proactive enough to get a membership at a community gym with an indoor pool. Patient discharged from skilled physical therapy although patient and guest believe patient should get to do aquatic therapy indefinitely.
== END 2022-10-21 09:19 | disposition home or self-care (01) ==
LOC: ANHPT 08:00
PROVIDERS: PCP Physician Assistant; Visit Provider Physician Assistant
DX: M54.50 Low back pain, unspecified (principal)
CPT/HCPCS: 97113; 97161; 97530

== ENCOUNTER 2023-02-23 08:20 | Inpatient (IN) | payer OTHER, SELFPAY ==
[2023-02-23] VITALS (11 sets, daily range): BP systolic 166–184; BP diastolic 78–106; PULSE 76–99; RESP 13–20; TEMP 36.3–37; O2SAT 98–100
--- NOTE | ~2023-02-23 | XR_ITS ---
XR chest 2V 02/23/2023 09:03 Indication: Weakness and vomiting Procedure: AP and lateral views of the chest Comparison: Comparison to multiple prior studies sequentially, with oldest reviewed study dated 02/20. Findings: Cardiomegaly. Pacemaker leads in expected position. No focal air space disease, pulmonary e shira, pleural effusion or suspected pneumothorax. No acute osseous abnormality. Impression: 1: No acute cardiopulmonary disease. Reviewed, dictated and finalized at location [facility]. Impression: 1: No acute cardiopulmonary disease.
--- NOTE | ~2023-02-23 | XR_ITS ---
Supine and upright views of the abdomen Clinical history: Nausea and vomiting Findings: Bowel gas pattern is nonspecific. No evidence for obstruction or free air. No abnormal mass lesion or calcification is seen. Vertebroplasty cement noted at L3. There is advanced degenerative s pondylosis at L4-L5 and L5-S1. Impression: Nonspecific bowel gas pattern. Reviewed, dictated and finalized at [facility]. Impression: Nonspecific bowel gas pattern.
--- NOTE | ~2023-02-23 | CT_ITS ---
EXAMINATION: CT brain wo con DATE: 02/23/2023 08:51 INDICATION: Altered mental status TECHNIQUE: Computed tomography (CT) of the head was performed without intravenous contrast. The mA wa s adjusted according to patient size. Iterative reconstruction technique was employed. Exam dose: 68 1.00 mGy-cm total exam DLP. COMPARISON: 03/12/2020 CT brain FINDINGS: Stable chronic infarcts are noted in the right posterior parietal area, left parietal-occip ital area and high over the left parietal convexity. No intracranial mass lesion or hemorrhage or recent cerebrovascular accident is evident. There is no midline shift or mass effect effect. Prominent carotid siphon internal carotid artery calcifications and bilateral vertebral artery and ba silar artery calcification. No subdural or epidural hematoma. Slight mucoperiosteal thickening of the lower left maxillary antrum and mild soft tissue thickening o f the ethmoid air cells. The paranasal sinuses and right mastoid air cells are otherwise unremarkable . Left mastoid effusions are noted. No fracture or bone destruction of the cranial vault. IMPRESSION: Cerebral atherosclerosis and chronic bilateral cerebrovascular accidents, stable since Reviewed, dictated and finalized at [facility]. Reviewed, dictated and finalized at location [facility]. IMPRESSION: Cerebral atherosclerosis and chronic bilateral cerebrovascular acc idents, stable since 03/12/2020
--- NOTE | 2023-02-23 08:28 | ECG_ITS ---
Measurements Intervals [place] Rate: 95 P: -69 WA: 154 QRS: -82 QRSD: 159 T: 37 QT: 399 QTc: 503 Interpretive Statements SINUS OR ECTOPIC ATRIAL RHYTHM RIGHT BUNDLE BRANCH BLOCK LEFT VENTRICULAR HYPERTROPHY AND ST-T CHANGE CONSIDER ANTERIOR INFARCT, AGE INDETERMINATE INFERIOR INFARCT, AGE INDETERMINATE BASELINE ARTIFACT- V5 ABNORMAL ECG COMPARED TO ECG 05/30/2020 09:50:27 SINUS OR ECTOPIC ATRIAL RHYTHM NOW PRESENT Electronically Signed On 02-23-2023 8:41:48 CDT by Leonardo Song D.O.
[2023-02-23 08:37] LABS: Basophils Percent Auto 0.4 % (0.2-1.2); Eosinophils Percent Auto 0.3 % (0-4.4); Hematocrit 43.5 % (42.0-52.0); Hemoglobin 15.1 g/dL (14.0-18.0); Immature Granulocyte Absolute 0.05 K/mm3 (0.00-0.031); Immature Granulocyte Percent A 0.4 % (0-0.5); Lymphocytes Absolute Auto 2.09 K/mm3 (0.9-3.2); Lymphocytes Percent Auto 18.4 % (18.3-44.2); Mean Corpuscular HGB Conc 34.7 g/dl (32-36); Mean Corpuscular Volume 103.8 fl (80-100); Mean Platelet Volume 9.6 fl (7.4-10.4); Monocytes Absolute Auto 0.8 K/mm3 (0.1-0.6); Monocytes Percent Auto 6.7 % (2.6-8.5); Neutrophils Absolute Auto 8.4 K/mm3 (1.3-6.7); Neutrophils Percent Auto 73.8 % (45.5-73.1); Platelet Count Result 320 k/mm3 (150-375); Red Blood Count 4.19 M/mm3 (4.6-6.20); Red Cell Distribution Width 13.9 % (11.5-14.5); White Blood Count 11.3 K/mm3 (4.5-10.0)
[2023-02-23] MEDS: SODIUM CHLORIDE 0.9% IV 1,000 ML 999 ML IV CONT (08:40)
[2023-02-23] MEDS: NALOXONE HCL 0.4 MG/ML VIAL IV PUSH (08:41)
--- NOTE | 2023-02-23 09:02 | ED.AMS ---
HPI - Altered Mental Status General Chief Complaint: Weakness Stated Complaint: weakness Time Seen by Provider: 02/23/23 08:25 History of Present Illness HPI narrative: history primarily through care provider and EMS. Pt told care provider that he was going out of town over weekend so she didn't need to come over so patient wasn't seen after until yesterday afternoon. Lens Molding Equipment Operator was called by someone who said they could not get ahold of patient. Lens Molding Equipment Operator checked on him and he was sleeping. She asked if he was ok and he said yes. Today she went to check on him and he was confused. She realized he had not taken any of his meds so she called 911. Pt had episode of emesis and complained of heartburn to her but has no complaints when I ask. Pt answers questions but goes back to sleep and not good at following commands but moves all extremities. Related Data Home Medications Medication Instructions Recorded Confirmed amitriptyline 100 mg tablet 100 mg PO HS 03/12/20 02/23/23 atorvastatin 80 mg tablet 80 mg PO HS 03/12/20 02/23/23 clopidogrel 75 mg tablet 75 mg PO DAILY 03/12/20 02/23/23 ergocalciferol (vitamin D2) 1,250 1,250 mcg PO WEEKLY 03/12/20 02/23/23 mcg (50,000 unit) capsule folic acid 1 mg tablet 1 mg PO DAILY 03/12/20 02/23/23 hydroxyurea 500 mg capsule 500 mg PO DAILY 03/12/20 02/23/23 levetiracetam 250 mg tablet 250 mg PO BID 03/12/20 02/23/23 lisinopril 20 mg tablet 20 mg PO DAILY 03/12/20 02/23/23 metoprolol succinate 50 mg 25 mg PO DAILY 03/12/20 02/23/23 tablet,extended release 24 hr aspirin 81 mg chewable tablet 81 mg PO DAILY 05/28/20 02/23/23 blood-glucose meter,continuous 02/23/23 02/23/23 (Dexcom G7 Associate Accountant) blood-glucose sensor (Dexcom G7 02/23/23 02/23/23 Sensor device) dulaglutide 0.75 mg/0.5 mL 0.75 mg subcut WEEKLY 02/23/23 02/23/23 subcutaneous pen injector (Trulicity) empagliflozin 10 mg tablet 10 mg PO DAILY 02/23/23 02/23/23 (Jardiance) evolocumab 140 mg/mL subcutaneous 140 mg subcut [id number] 02/23/23 02/23/23 syringe (Repatha Syringe) famotidine 20 mg tablet 20 mg PO BID 02/23/23 02/23/23 hydrocodone 10 mg-acetaminophen 1 tablet PO Q6H PRN Pain 02/23/23 02/23/23 325 mg tablet insulin glargine 100 unit/mL 45 unit subcut HS 02/23/23 02/23/23 subcutaneous solution (Lantus U-100 Insulin) insulin lispro 100 unit/mL See Rx Instructions .Route .COMPLEX 02/23/23 02/23/23 subcutaneous pen oxybutynin chloride 15 mg 15 mg PO DAILY 02/23/23 02/23/23 tablet,extended release 24 hr tamsulosin 0.4 mg capsule 0.4 mg PO HS 02/23/23 02/23/23 Allergies Allergy/AdvReac Type Severity Reaction Status Date / Time Penicillins Allergy Unknown Other Verified 02/23/23 18:41 Review of Systems Review of Systems: ROS unobtainable: Yes unobtainable due to mental status [facility] Past Medical History Medical History (Updated 02/23/23 @ 13:45 by Ros Cordova PA-C) 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 Cerebrovascular accident 2015: Right frontoparietal CVA with left hemiparesis. January 2019: Left parietooccipital CVA presenting with confusion and aphasia. Chronic anemia Chronic kidney disease, stage 3 Baseline creatinine is around 1.4. Chronic lower back pain Chronic obstructive pulmonary disease Coronary artery disease Patient reports history of 2 MIs; no history of cardiac catheterization. Diabetic peripheral neuropathy Essential hypertension Hard of hearing Hyperlipidemia Obstructive sleep apnea Refuses CPAP. Prostate abscess Tobacco dependence Type 2 diabetes mellitus Vitamin D deficiency Surgical History Surgical History (Updated 02/23/23 @ 13:22 by Ros Cordova PA-C) History of back surgery History of hernia surgery History of permanent cardiac pacemaker shayy
--- NOTE | 2023-02-23 09:09 | PC.NURSE ---
pt states he is unable to urinate at this time.
[2023-02-23] MEDS: LORazepam INJ (*CRX) 2 MG/ML VIAL 0.5 MG IV PUSH (09:10)
[2023-02-23 09:26] LABS: Basophils Absolute Auto 0.1 K/mm3 (0.0-0.1); Basophils Percent Auto 0.5 % (0.2-1.2); Eosinophils Percent Auto 0.2 % (0-4.4); Hemoglobin 15.1 g/dL (14.0-18.0); Immature Granulocyte Absolute 0.06 K/mm3 (0.00-0.031); Immature Granulocyte Percent A 0.5 % (0-0.5); Lymphocytes Absolute Auto 2.08 K/mm3 (0.9-3.2); Lymphocytes Percent Auto 17.6 % (18.3-44.2); Mean Corpuscular HGB Conc 35.1 g/dl (32-36); Mean Corpuscular Hemoglobin 35.9 pg (26-34); Mean Corpuscular Volume 102.1 fl (80-100); Mean Platelet Volume 9.5 fl (7.4-10.4); Monocytes Absolute Auto 0.7 K/mm3 (0.1-0.6); Monocytes Percent Auto 6.3 % (2.6-8.5); Neutrophils Absolute Auto 8.8 K/mm3 (1.3-6.7); Neutrophils Percent Auto 74.9 % (45.5-73.1); Platelet Count Result 346 k/mm3 (150-375); Red Blood Count 4.21 M/mm3 (4.6-6.20); Red Cell Distribution Width 13.9 % (11.5-14.5); White Blood Count 11.8 K/mm3 (4.5-10.0)
[2023-02-23 09:36] LABS: Lactic Acid Reflex 1.8 mmol/L (0.7-2.0)
[2023-02-23 09:39] LABS: Alanine Aminotransferase 27 U/L (6-50); Albumin Level 4.6 g/dL (3.5-5.1); Alkaline Phosphatase 116 U/L (38-126); Anion Gap 17 mmol/L (8-16); Aspartate Amino Transferase 28 U/L (17-59); Bilirubin,Total 0.7 mg/dL (0.2-1.3); Blood Urea Nitrogen 19 mg/dL (9-20); Calcium 11.1 mg/dL (8.4-10.2); Carbon Dioxide 15 mmol/L (22-30); Chloride 104 mmol/L (98-107); Estimated Glomerular Filt Rate > 60; Glucose 183 mg/dL (65-110); Potassium 4.6 mmol/L (3.4-5.0); Sodium 136 mmol/L (137-145)
[2023-02-23 09:40] LABS: Acetaminophen < 10 ug/mL (10-30); Ethanol < 10 mg/dL (<10); Salicylate < 1.0 mg/dL (2-20)
[2023-02-23 09:44] LABS: Prothrombin Time 13.3 Seconds (11.1-14.7)
[2023-02-23 09:45] LABS: Partial Thromboplastin Time 26.7 SECONDS (22.3-36.8)
[2023-02-23 09:51] LABS: Troponin I 0.025 ng/mL (0.000-0.034)
[2023-02-23 10:10] LABS: Thyroid Stimulating Hormone 0.638 uIU/mL (0.465-4.680)
[2023-02-23 11:06] LABS: Appearance Urine Clear (Clear); Bacteria Urine None Seen /hpf; Bilirubin Urine Negative (Negative); Blood Urine 3+ (Negative); Color Urine Yellow (Yellow); Glucose Urine UA 3+ mg/dL (Negative); Ketones Urine 3+ mg/dL (Negative); Leukocyte Esterase Ur Negative LEU/UL (Negative); Need Manual Microscopic Reviewed; Nitrate Urine Negative (Negative); Protein Urine 4+ mg/dL (Negative); Specific Grav Ur 1.028 (1.001-1.035); Squamous Epithelial Cell Urine None seen /hpf (Few); Urobilinogen Urine 0.2 mg/dL (<2.0); WBC Urine 0-5 /hpf; pH Urine 5.5 (5.0-9.0)
[2023-02-23 11:08] LABS: Barbiturate Screen Urine Negative (Negative); Cannabinoid Screen Urine Positive (Negative); Cocaine Screen Urine Negative (Negative); Methadone Screen Urine Negative (Negative); Opiate Screen Urine Negative (Negative); Phencyclidine Screen Urine Negative (Negative)
[2023-02-23 11:26] LABS: Amphetamine Screen Urine Positive (Negative)
[2023-02-23 11:31] LABS: Add Urine Microscopic? YES
[2023-02-23 12:42] LABS: Benzodiazepines Screen Urine Negative (Negative)
--- NOTE | 2023-02-23 12:50 | ADMGEN ---
This patient, Basilio Riley, was admitted to Medical Room 345-01. Patient/family oriented to hospital policies and general routines including ID bracelet, bed and alarms, visiting hours, pain management, procedures, bathroom and other care routines, personal items, smoking policy, room service/diet, and visiting hours. Information on how to activate the Rapid Response Team has been discussed. Patient/Family are encouraged to report perceived risks to care and to ask questions if they do not understand what they are told or what they should do.
--- NOTE | 2023-02-23 13:13 | PM.IMHP ---
H&P: HPI History of Present Illness Date/Time: 02/23/23 13:15 Chief Complaint: Weakness and confusion. Narrative: This is a 63-year-old male smoker with multiple medical problems including history of of stroke, hypertension, dyslipidemia, chronic obstructive pulmonary disease, and other comorbidities who presented to the emergency department via EMS from home for evaluation of weakness and confusion. He is a fair historian however some of the following history is supplemented via a review of his EMR as information obtained from the triage and ED physician notes. He lives in his own apartment and has a oxyhydrogen welder that comes over to help him out several times a week. His oxyhydrogen welder reports that he seemed in his usual state of health on ; she has not seen him since that time as he reported to her that he was going out of town this weekend. Today she went to check on him as family members were unable to get a hold of him and he seemed confused and he told her he had not felt well for several days. She realized he did not taking any of his medications the last several days and she called 911. At the time my evaluation he is alert and oriented x3. He has not been feeling well for several days with nausea, vomiting, and loose stools as well as occasional sweats. He denies sinus congestion, sore throat, chest pain, pleuritic pain, cough, hematemesis, melena, and hematochezia. Vital signs were stable on arrival to the ED though his blood pressure was elevated. White blood cell count was elevated and he had a normal hemoglobin which is unusual for him as he has chronic anemia. Sodium was a bit low and his calcium is elevated 11.3 but his other electrolytes were unremarkable. Serum carbon dioxide was low at 15 he had an elevated anion gap of 17. Troponin was within normal limits. Random glucose was 183. UA was positive for 4+ protein, 3+ glucose, 3+ ketones, 3+ blood. Head CT did not show any acute findings showed evidence of prior strokes. Chest x-ray showed no acute cardiopulmonary disease. Urine drug screen was positive for amphetamines and cannabinoids, he admits to smoking marijuana but emphatically denies amphetamine use. He received 2 L of fluid in the ED and he is being admitted in this setting for further treatment and evaluation. Review of Systems Review of Systems: Twelve systems were reviewed and are negative except for as per HPI. 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 Cerebrovascular accident 2015: Right frontoparietal CVA with left hemiparesis. January 2019: Left parietooccipital CVA presenting with confusion and aphasia. Chronic anemia Chronic kidney disease, stage 3 Baseline creatinine is around 1.4. Chronic lower back pain Chronic obstructive pulmonary disease Coronary artery disease Patient reports history of 2 MIs; no history of cardiac catheterization. Diabetic peripheral neuropathy Essential hypertension Hard of hearing Hyperlipidemia Obstructive sleep apnea Refuses CPAP. Prostate abscess Tobacco dependence Type 2 diabetes mellitus Vitamin D deficiency Surgical History Surgical History (Updated 02/23/23 @ 13:22 by Ros Cordova PA-C) History of back surgery History of hernia surgery History of permanent cardiac pacemaker placement Due to sick sinus rhythm. History of transurethral resection of prostate Family History Family History Mother Cerebrovascular accident Acute myocardial infarction Hypertension Father Diabetes mellitus Cerebrovascular accident Hypertension Social History Social History (Updated 02/23/23 @ 13:24 by Ros Cordova PA-C)
[2023-02-23] MEDS: LACTATED RINGERS 1,000 ML 125 ML IV CONT (13:39)
[2023-02-23 14:20] LABS: Ammonia < 9 umol/L (9-30)
[2023-02-23 14:23] LABS: Anion Gap 15 mmol/L (8-16); Blood Urea Nitrogen 17 mg/dL (9-20); Calcium 10.3 mg/dL (8.4-10.2); Carbon Dioxide 20 mmol/L (22-30); Chloride 104 mmol/L (98-107); Creatine Kinase 262 U/L (55-170); Estimated Glomerular Filt Rate > 60; Glucose 165 mg/dL (65-110); Magnesium 1.7 mg/dL (1.6-2.3); Potassium 4.1 mmol/L (3.4-5.0); Sodium 139 mmol/L (137-145)
[2023-02-23 14:27] LABS: Beta-Hydroxybutyrate/Acetoacetate 3.24 mmol/L (0.02-0.27)
[2023-02-23 14:41] LABS: Hemoglobin A1C 7.4 % (<5.7)
[2023-02-23 15:19] LABS: Iron 60 ug/dL (49-181)
[2023-02-23 15:28] LABS: Percent Iron Saturation 20 % (20-50)
[2023-02-23 15:32] LABS: Folic Acid > 20.0 ng/mL (2.76->20)
[2023-02-23 15:50] LABS: Thyroid Stimulating Hormone Reflex 0.313 uIU/mL (0.465-4.68)
[2023-02-23 16:15] LABS: Free T4 Free Thyroxine Reflex 1.29 ng/dL (0.78-2.19)
--- NOTE | 2023-02-23 16:55 | PC.NURSE ---
Animal Control Supervisor spoke with Darling (sister) regarding PMH and current medication list, she is unaware of his medications or medical history but patient has caregiver named Lexi and Darling will call Lexi and have her call facility in AM and go over medications and PMH
[2023-02-23 17:01] LABS: Total Triiodothyronine (T3) 1.37 NG/ML (0.97-1.69)
[2023-02-23 17:38] LABS: Glucose Point of Care 152 mg/dl (65-105)
[2023-02-23] MEDS: LACTATED RINGERS 1,000 ML 999 ML IV CONT (18:03)
[2023-02-23] MEDS: LACTATED RINGERS 1,000 ML 100 ML IV CONT (18:05)
--- NOTE | 2023-02-23 20:21 | ECG_ITS ---
Measurements Intervals [place] Rate: 89 P: -66 WI: 154 QRS: -87 QRSD: 169 T: 38 QT: 409 QTc: 498 Interpretive Statements SINUS OR ECTOPIC ATRIAL RHYTHM WITH SINUS ARRHYTHMIA LEFT AXIS DEVIATION RIGHT BUNDLE BRANCH BLOCK LEFT VENTRICULAR HYPERTROPHY WITH ST-T CHANGE ANTEROLATERAL INFARCT, AGE INDETERMINATE INFERIOR INFARCT, AGE INDETERMINATE ABNORMAL ECG COMPARED TO ECG 02/23/2023 08:24:56 NO SIGNIFICANT CHANGES Electronically Signed On 02-24-2023 6:48:03 CDT by Leonardo Song D.O.
[2023-02-23] MEDS: ONDANSETRON INJ 4 MG/2 ML VIAL IV PUSH (21:57)
[2023-02-23 22:07] LABS: Glucose Point of Care 157 mg/dl (65-105)
[2023-02-23 22:47] LABS: Creatine Kinase 180 U/L (55-170); Lipase 98 U/L (23-300)
[2023-02-23 22:51] LABS: Beta-Hydroxybutyrate/Acetoacetate 2.09 mmol/L (0.02-0.27)
[2023-02-23 23:09] LABS: Troponin I 0.044 ng/mL (0.000-0.034)
[2023-02-24] VITALS (10 sets, daily range): BP systolic 125–149; BP diastolic 64–81; PULSE 72–100; RESP 16–20; TEMP 36.8–37.9; O2SAT 98–99; BMI 30.8
[2023-02-24] MEDS: LACTATED RINGERS 1,000 ML 100 ML IV CONT ×2 (05:20→13:00)
[2023-02-24 05:50] LABS: Hematocrit 39.4 % (42.0-52.0); Hemoglobin 13.3 g/dL (14.0-18.0); Mean Corpuscular HGB Conc 33.8 g/dl (32-36); Mean Corpuscular Hemoglobin 35.5 pg (26-34); Mean Corpuscular Volume 105.1 fl (80-100); Mean Platelet Volume 9.6 fl (7.4-10.4); Platelet Count Result 295 k/mm3 (150-375); Red Blood Count 3.75 M/mm3 (4.6-6.20); Red Cell Distribution Width 13.6 % (11.5-14.5); White Blood Count 13.9 K/mm3 (4.5-10.0)
[2023-02-24 06:01] LABS: Alanine Aminotransferase 23 U/L (6-50); Albumin Level 3.8 g/dL (3.5-5.1); Alkaline Phosphatase 89 U/L (38-126); Anion Gap 8 mmol/L (8-16); Aspartate Amino Transferase 24 U/L (17-59); Bilirubin,Total 0.4 mg/dL (0.2-1.3); Blood Urea Nitrogen 15 mg/dL (9-20); Calcium 9.8 mg/dL (8.4-10.2); Carbon Dioxide 26 mmol/L (22-30); Chloride 104 mmol/L (98-107); Estimated Glomerular Filt Rate > 60; Glucose 146 mg/dL (65-110); Potassium 3.7 mmol/L (3.4-5.0); Sodium 138 mmol/L (137-145)
[2023-02-24 08:09] LABS: Troponin I 0.042 ng/mL (0.000-0.034)
[2023-02-24 08:21] LABS: Glucose Point of Care 227 mg/dl (65-105)
[2023-02-24] MEDS: FAMOTIDINE 20 MG TABLET PO ×2 (08:51→20:54)
[2023-02-24] MEDS: oxyBUTYnin CHLORIDE XL 5 MG TAB.ER.24 15 MG PO (08:51)
[2023-02-24] MEDS: FOLIC ACID 1 MG TABLET PO (08:51)
[2023-02-24] MEDS: lisinopriL 20 MG TABLET PO (08:51)
[2023-02-24] MEDS: ASPIRIN 81 MG CHEWABLE TABLET PO (08:51)
[2023-02-24] MEDS: CLOPIDOGREL BISULFATE 75 MG TABLET PO (08:51)
[2023-02-24] MEDS: GABAPENTIN 300 MG CAPSULE 900 MG PO ×2 (08:51→13:01)
[2023-02-24] MEDS: levETIRAcetam 250 MG TABLET PO ×2 (08:51→20:54)
[2023-02-24] MEDS: EMPAGLIFLOZIN 10 MG TABLET PO (08:51)
[2023-02-24] MEDS: HYDROXYUREA (*CHEMO) 500 MG CAPSULE PO (08:51)
[2023-02-24] MEDS: INSULIN ASPART (*BKC) 100 UNITS/ML SUB-Q (08:53)
[2023-02-24] MEDS: METOPROLOL SUCCINATE EXT REL 25 MG TABCR PO (08:54)
--- NOTE | 2023-02-24 09:58 | PM.IMPN ---
Progress Note: A&P Assessment and Plan (1) Encephalopathy: Code(s): G93.40 - Encephalopathy, unspecified Status: Acute Assessment and Plan: Uncertain cause of patient's altered mental status the suspected drug induced encephalopathy as THC and amphetamine screen were positive. No fever. Normal ammonia. Normal electrolytes. 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 Prior Stroke, no focal deficits to suspect acute stroke. Neurology consulted, appreciate recommendations. (2) Dehydration: Code(s): E86.0 - Dehydration Status: Acute Assessment and Plan: IV fluids continued due to low oral intake. Electrolytes stable on morning labs. (3) Nausea and vomiting: Code(s): R11.2 - Nausea with vomiting, unspecified Status: Acute Assessment and Plan: No ongoing complaint of nausea, no vomiting at this time. (4) Chronic obstructive pulmonary disease: Code(s): J44.9 - Chronic obstructive pulmonary disease, unspecified Status: Acute Assessment and Plan: No wheezing, positive loud periodic smoker's cough noted. (5) Hypercalcemia: Code(s): E83.52 - Hypercalcemia Status: Acute Assessment and Plan: Improved from 11.1 to 9.8 with IV fluids. (6) Essential hypertension: Code(s): I10 - Essential (primary) hypertension Status: Chronic Assessment and Plan: Stable today, continue to monitor (7) Type 2 diabetes mellitus: Code(s): E11.9 - Type 2 diabetes mellitus without complications Status: Acute Assessment and Plan: Insulin ordered. A1c 7.4 on admission (8) Tobacco dependence: Code(s): F17.200 - Nicotine dependence, unspecified, uncomplicated Status: Chronic Assessment and Plan: Refused nicotine patch when nursing tried to place. Plan EEG per Neurology. Time Spent With Patient Time with patient: Greater than 35 minutes Subjective Date/time seen: 02/24/23 09:58 Interval history: 02/24 Rounding: Patient seen lying in bed with random arm and leg movements answering some questions seemingly appropriately with delayed to answer. Patient knows he is in the hospital but does not know why. He is noted to cough periodically, 45 pack year smoker per medical record. Lungs clear, no abdominal tenderness. Limited HPI/ROS as he only answers some questions. Suspect possible drug induced encephalopathy. Neurology consulted. Review of Systems Review of Systems: ROS unobtainable: Yes unobtainable due to mental status Exam Narrative: General: Moderately ill-appearing gentleman in supine position in bed. HEENT: Normocephalic, atraumatic. Pupils are approximately 3 mm and are reactive. Sclera anicteric. Conjunctiva mildly injected. Tacky mucous membranes. Neck: Supple. No JVD Respiratory: Lungs are clear to auscultation bilaterally. Loud periodic cough noted, likely chronic smoker's cough Cardiovascular: Regular rate and rhythm with S1-S2. Gastrointestinal: Abdomen is soft, nontender and nondistended with positive bowel sounds. No guarding or rebound tenderness. Skin: Warm and dry. No rash or lesions on limited exam. Extremities: No cyanosis, clubbing, or edema. Radial and pedal pulses intact. Neurological: Alert and oriented x1. He cannot provide me with the current year or events leading to hospitalization. Speech is clear. No facial asymmetry. Generalized weakness without obvious focal findings. Psychiatric: Pleasant and cooperative with some questions. Objective Data Vital Signs Vital Signs: Vital Signs - 24 hr 02/23/23 11:17 02/23/23 11:30 02/23/23 11:32 Temperature Pulse Rate 94 93 85 Respiratory Rate 14 19 20 Blood Pressure 175/78 H 174/99 H Pulse Oximetry 100 100 Oxygen Delivery 02/23/23 11:45 02/23/23 12:00 02/23/23 12:15 Temperature Pulse Rate 77 96 98 Respiratory Rate 13 13 14 Blood Pressure Pulse Oximetry 100 100
[2023-02-24 12:08] LABS: Glucose Point of Care 168 mg/dl (65-105)
[2023-02-24 12:11] LABS: Vitamin D 25 Hydroxy 39.2 ng/mL
[2023-02-24] MEDS: MAGNESIUM OXIDE 400 MG TABLET PO (13:01)
--- NOTE | 2023-02-24 13:27 | PC.NURSE ---
Per family. Ok to talk to Lexi the caregiver.
--- NOTE | 2023-02-24 14:08 | WPDNEURCNPN ---
Assessment and Plan Assessment and plan (1) Type 2 diabetes mellitus: Code(s): E11.9 - Type 2 diabetes mellitus without complications Status: Acute (2) Encephalopathy: Code(s): G93.40 - Encephalopathy, unspecified Status: Acute Plan admitted for change in mental status with history of strokes in the past and also history of seizure in the past though his drug screen is positive for cannabinoids and fat a means with the possibility of metabolic encephalopathy as being corrected in addition to the other evaluations being carried out routine EEG will be requested along with the observation for any change in the mental status and TSH and B12 have already been ordered Consult date: 02/24/23 HPI: Basilio Riley is a 63 year old male Admitted to the hospital through the emergency room with information that he told the trust officer he was going out of town over weekend so patient was not seen after until yesterday afternoon when trust officer was called by someone with information they were unable to get hold of the patient's. Hot Mix Operator checked on him he was sleeping and was feeling okay the trust officer went back next day to check on him when he was noted leak confused 911 were called to the scene patient had an episode of vomiting complained of heartburn and her some questions and went back to sleep. 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 Initial eval in the emergency room with neurological deficit, blood pressure 166/106 but afebrile, routine lab normal UA positive for the amphetamine screen, head CT scan with chronic bilateral cerebrovascular accident unchanged since March 12, 2020 and documented right posterior parietal area involvement left parieto-occipital lobe area involvement left parietal convexity prominent carotid siphon internal carotid artery calcifications bilateral vertebral artery and basilar artery calcification but no bleeding. 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 Cerebrovascular accident 2015: Right frontoparietal CVA with left hemiparesis. January 2019: Left parietooccipital CVA presenting with confusion and aphasia. Chronic anemia Chronic kidney disease, stage 3 Baseline creatinine is around 1.4. Chronic lower back pain Chronic obstructive pulmonary disease Coronary artery disease Patient reports history of 2 MIs; no history of cardiac catheterization. Diabetic peripheral neuropathy Essential hypertension Hard of hearing Hyperlipidemia Obstructive sleep apnea Refuses CPAP. Prostate abscess Tobacco dependence Type 2 diabetes mellitus Vitamin D deficiency Surgical History Surgical History (Updated 02/23/23 @ 13:22 by Ros Cordova PA-C) History of back surgery History of hernia surgery History of permanent cardiac pacemaker placement Due to sick sinus rhythm. History of transurethral resection of prostate Family History Famil
[2023-02-24 17:31] LABS: Glucose Point of Care 103 mg/dl (65-105)
[2023-02-24] MEDS: TAMSULOSIN HCL 0.4 MG CAPSULE PO (20:53)
[2023-02-24] MEDS: ATORVASTATIN 40 MG TABLET 80 MG PO (20:53)
[2023-02-24] MEDS: AMITRIPTYLINE HCL 25 MG TABLET 100 MG PO (20:54)
[2023-02-24] MEDS: GABAPENTIN 300 MG CAPSULE 1200 MG PO (20:54)
[2023-02-24 21:44] LABS: Glucose Point of Care 120 mg/dl (65-105)
[2023-02-24] MEDS: INSULIN GLARGINE (*BKC) 100 UNITS/ML 20 UNITS SUB-Q (22:00)
[2023-02-25] VITALS (11 sets, daily range): BP systolic 129–147; BP diastolic 60–90; PULSE 70–99; RESP 16–18; TEMP 36.7–37.1; O2SAT 96–100
[2023-02-25] MEDS: LACTATED RINGERS 1,000 ML 100 ML IV CONT ×3 (02:00→22:35)
[2023-02-25] MEDS: VANCOMYCIN 1,250 MG/NS 250 ML 1,250 MG/250 ML BAG 166.67 MG IVPB (03:56)
[2023-02-25] MEDS: VANCOMYCIN 1,000 MG/NS 250 ML 1,000 MG/250 ML BAG 250 MG IVPB (05:39)
[2023-02-25 05:40] LABS: Hematocrit 37.1 % (42.0-52.0); Hemoglobin 12.5 g/dL (14.0-18.0); Mean Corpuscular HGB Conc 33.7 g/dl (32-36); Mean Corpuscular Hemoglobin 35.4 pg (26-34); Mean Corpuscular Volume 105.1 fl (80-100); Mean Platelet Volume 9.3 fl (7.4-10.4); Platelet Count Result 259 k/mm3 (150-375); Red Blood Count 3.53 M/mm3 (4.6-6.20); Red Cell Distribution Width 13.7 % (11.5-14.5); White Blood Count 11.4 K/mm3 (4.5-10.0)
[2023-02-25 05:52] LABS: Alanine Aminotransferase 24 U/L (6-50); Albumin Level 3.2 g/dL (3.5-5.1); Alkaline Phosphatase 77 U/L (38-126); Anion Gap 5 mmol/L (8-16); Aspartate Amino Transferase 22 U/L (17-59); Bilirubin,Total 0.5 mg/dL (0.2-1.3); Blood Urea Nitrogen 14 mg/dL (9-20); Calcium 9.5 mg/dL (8.4-10.2); Carbon Dioxide 28 mmol/L (22-30); Chloride 104 mmol/L (98-107); Estimated CRCL calculation 75 ml/min; Estimated Glomerular Filt Rate > 60; Glucose 101 mg/dL (65-110); Potassium 3.3 mmol/L (3.4-5.0); Sodium 137 mmol/L (137-145)
[2023-02-25 08:26] LABS: Glucose Point of Care 100 mg/dl (65-105)
[2023-02-25] MEDS: POTASSIUM CHLORIDE 20 MEQ PACKET (FOR LIQUID) PO (09:43)
[2023-02-25] MEDS: oxyBUTYnin CHLORIDE XL 5 MG TAB.ER.24 15 MG PO (09:43)
[2023-02-25] MEDS: HYDROXYUREA (*CHEMO) 500 MG CAPSULE PO (09:43)
[2023-02-25] MEDS: GABAPENTIN 300 MG CAPSULE 900 MG PO ×2 (09:43→14:32)
[2023-02-25] MEDS: EMPAGLIFLOZIN 10 MG TABLET PO (09:43)
[2023-02-25] MEDS: ASPIRIN 81 MG CHEWABLE TABLET PO (09:43)
[2023-02-25] MEDS: FOLIC ACID 1 MG TABLET PO (09:43)
[2023-02-25] MEDS: levETIRAcetam 250 MG TABLET PO ×2 (09:43→20:16)
[2023-02-25] MEDS: CLOPIDOGREL BISULFATE 75 MG TABLET PO (09:43)
[2023-02-25] MEDS: FAMOTIDINE 20 MG TABLET PO ×2 (09:43→20:16)
[2023-02-25] MEDS: lisinopriL 20 MG TABLET PO (09:43)
[2023-02-25] MEDS: METOPROLOL SUCCINATE EXT REL 25 MG TABCR PO (09:48)
--- NOTE | 2023-02-25 11:16 | PM.IMPN ---
Progress Note: A&P Assessment and Plan (1) Encephalopathy: Code(s): G93.40 - Encephalopathy, unspecified Status: Acute Assessment and Plan: Uncertain cause of patient's altered mental status the suspected drug induced encephalopathy as THC and amphetamine screen were positive. No fever. Normal ammonia. Normal electrolytes. 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 Prior Stroke, no focal deficits to suspect acute stroke. Neurology consulted, appreciate recommendations. (2) Dehydration: Code(s): E86.0 - Dehydration Status: Acute Assessment and Plan: IV fluids continued due to low oral intake. Electrolytes stable on morning labs. (3) Nausea and vomiting: Code(s): R11.2 - Nausea with vomiting, unspecified Status: Acute Assessment and Plan: No ongoing complaint of nausea, no vomiting at this time. (4) Chronic obstructive pulmonary disease: Code(s): J44.9 - Chronic obstructive pulmonary disease, unspecified Status: Acute Assessment and Plan: No wheezing, positive loud periodic smoker's cough noted. (5) Hypercalcemia: Code(s): E83.52 - Hypercalcemia Status: Acute Assessment and Plan: Improved from 11.1 to 9.8 with IV fluids. (6) Essential hypertension: Code(s): I10 - Essential (primary) hypertension Status: Chronic Assessment and Plan: Stable today, continue to monitor (7) Type 2 diabetes mellitus: Code(s): E11.9 - Type 2 diabetes mellitus without complications Status: Acute Assessment and Plan: Insulin ordered. A1c 7.4 on admission (8) Tobacco dependence: Code(s): F17.200 - Nicotine dependence, unspecified, uncomplicated Status: Chronic Assessment and Plan: Refused nicotine patch when nursing tried to place. Plan EEG per Neurology. Subjective Date/time seen: 02/25/23 11:16 Interval history: No new complaints Exam Narrative: General: Moderately ill-appearing gentleman in supine position in bed. HEENT: Normocephalic, atraumatic. Pupils are approximately 3 mm and are reactive. Sclera anicteric. Conjunctiva mildly injected. Tacky mucous membranes. Neck: Supple. No JVD Respiratory: Lungs are clear to auscultation bilaterally. Loud periodic cough noted, likely chronic smoker's cough Cardiovascular: Regular rate and rhythm with S1-S2. Gastrointestinal: Abdomen is soft, nontender and nondistended with positive bowel sounds. No guarding or rebound tenderness. Skin: Warm and dry. No rash or lesions on limited exam. Extremities: No cyanosis, clubbing, or edema. Radial and pedal pulses intact. Neurological: Alert and oriented x1. He cannot provide me with the current year or events leading to hospitalization. Speech is clear. No facial asymmetry. Generalized weakness without obvious focal findings. Psychiatric: Pleasant and cooperative with some questions. Objective Data Vital Signs Vital Signs: Vital Signs - 24 hr 02/24/23 12:00 02/24/23 14:00 02/24/23 16:00 Temperature 100.2 F H Pulse Rate 75 74 79 Respiratory Rate 16 Blood Pressure 143/66 H Pulse Oximetry 98 Oxygen Delivery 02/24/23 20:00 02/24/23 20:46 02/24/23 20:00 Temperature 98.2 F Pulse Rate 72 74 74 Respiratory Rate 18 18 Blood Pressure 125/64 Pulse Oximetry 98 98 Oxygen Delivery Room Air 02/25/23 00:00 02/25/23 04:41 02/25/23 04:00 Temperature 98.7 F Pulse Rate 76 70 85 Respiratory Rate 16 Blood Pressure 129/60 Pulse Oximetry 100 Oxygen Delivery 02/25/23 08:41 02/25/23 09:48 02/25/23 08:00 Temperature Pulse Rate 99 80 Respiratory Rate Blood Pressure Pulse Oximetry 99 Oxygen Delivery Room Air 02/25/23 08:00 Temperature Pulse Rate Respiratory Rate Blood Pressure Pulse Oximetry Oxygen Delivery Room Air Intake/Output Intake/Output: Intake & Output 02/22/23 02/23/23
[2023-02-25 11:57] LABS: Glucose Point of Care 114 mg/dl (65-105)
--- NOTE | 2023-02-25 12:02 | WPDNEUROPN ---
Subjective Date/time seen: 02/25/23 12:02 Interval history: 63 years old admitted with type 2 diabetes mellitus with encephalopathy evaluation up until known documented very minimal leukocytosis but MCV of 105.1 abnormal UA glycosuria protein urea and ketonuria and also toxicology screen positive for amphetamines, initial CT scan of the head was negative with no changes since March 12, 2020 can be checked for the B12 deficiency though his already receiving the folic acid 1 mg p.o. daily Objective Data Vital Signs Vital Signs: Vital Signs - 24 hr 02/24/23 14:00 02/24/23 16:00 02/24/23 20:00 Temperature 37.9 C H Pulse Rate 74 79 72 Respiratory Rate 16 Blood Pressure 143/66 H Pulse Oximetry 98 Oxygen Delivery 02/24/23 20:46 02/24/23 20:00 02/25/23 00:00 Temperature 36.8 C Pulse Rate 74 74 76 Respiratory Rate 18 18 Blood Pressure 125/64 Pulse Oximetry 98 98 Oxygen Delivery Room Air 02/25/23 04:41 02/25/23 04:00 02/25/23 08:41 Temperature 37.1 C Pulse Rate 70 85 Respiratory Rate 16 Blood Pressure 129/60 Pulse Oximetry 100 99 Oxygen Delivery Room Air 02/25/23 09:48 02/25/23 08:00 02/25/23 08:00 Temperature Pulse Rate 99 80 Respiratory Rate Blood Pressure Pulse Oximetry Oxygen Delivery Room Air Intake/Output Intake/Output: Intake & Output 02/22/23 02/23/23 02/24/23 02/25/23 23:59 23:59 23:59 23:59 Intake Total 1222 3590 640 Output Total 400 1300 1100 Balance 822 7830 -460 Meds/Results Medications: Active Medications Generic Name Dose Route Start Last Admin Trade Name Freq PRN Reason Stop Dose Admin Acetaminophen 650 mg 02/23/23 13:48 Acetaminophen 325 Mg Tablet PO Q6H PRN Mild Pain (1-3) or Fever Hydrocodone Bitart/Acetaminophen 1 tab 02/25/23 10:04 Hydrocodone/Acetaminophen (*Crx) 10-325 Mg Tablet PO Q6H PRN Pain Rated 7-10 Amitriptyline HCl 100 mg 02/24/23 21:00 02/24/23 20:54 Amitriptyline Hcl 25 Mg Tablet PO 100 mg HS ANDRES Administration Aspirin 81 mg 02/24/23 09:00 02/25/23 09:43 Aspirin 81 Mg Chewable Tablet PO 81 mg DAILY ANDRES Administration Atorvastatin Calcium 80 mg 02/24/23 21:00 02/24/23 20:53 Atorvastatin 40 Mg Tablet PO 80 mg HS ANDRES Administration Clopidogrel Bisulfate 75 mg 02/24/23 09:00 02/25/23 09:43 Clopidogrel Bisulfate 75 Mg Tablet PO 75 mg DAILY ANDRES Administration Dextrose 12.5 gm 02/23/23 13:48 Dextrose 50% 25 Gm/50 Ml Syringe IV PUSH PRN PRN Hypoglycemia Protocol Empagliflozin 10 mg 02/24/23 09:00 02/25/23 09:43 Empagliflozin 10 Mg Tablet PO 10 mg DAILY ANDRES Administration Famotidine 20 mg 02/23/23 21:00 02/25/23 09:43 Famotidine 20 Mg Tablet PO 20 mg Q12HR ANDRES Administration Folic Acid 1 mg 02/24/23 09:00 02/25/23 09:43 Folic Acid 1 Mg Tablet PO 1 mg DAILY ANDRES Administration Gabapentin 900 mg 02/24/23 09:00 02/25/23 09:43 Gabapentin 300 Mg Capsule PO 900 mg QAM ANDRES Administration Gabapentin 900 mg 02/24/23 14:00 02/24/23 13:01 Gabapentin 300 Mg Capsule PO 900 mg Q24H ANDRES Administration Gabapentin 1,200 mg 02/24/23 21:00 02/24/23 20:54 Gabapentin 300 Mg Capsule PO 1,200 mg HS ANDRES Administration Glucagon 1 mg 02/23/23 13:48 Glucagon For Inj 1 Mg Vial IM PRN PRN Hypoglycemia Protocol Glucose 15 gm 02/23/23 13:48 Glucose Oral Gel 15 Gm Of Glucse In 37.5 Gm Tube PO PRN PRN Hypoglycemia Protocol Hydroxyurea 500 mg 02/24/23 09:00 02/25/23 09:43 Hydroxyurea (*Chemo) 500 Mg Capsule PO 500 mg DAILY ANDRES Administration Dextrose 1,000 mls @ 100 mls/hr 02/23/23 13:48 Dextrose 5% 1,000 Ml IVPB PRN PRN Hypoglycemia Protocol Lactated Ringer's 1,000 mls @ 100 mls/hr 02/23/23 15:45 02/25/23 02:00 Lr - Lactated Ringers Iv IV CONT 100 mls/hr .Q10H ANDRES Administration Va
[2023-02-25] MEDS: MAGNESIUM OXIDE 400 MG TABLET PO (12:33)
[2023-02-25] MEDS: HYDROcodone/acetaminophen (*CRX) 10-325 MG TABLET 1 TAB PO ×2 (12:34→20:22)
[2023-02-25 17:12] LABS: Glucose Point of Care 130 mg/dl (65-105)
[2023-02-25] MEDS: AMITRIPTYLINE HCL 25 MG TABLET 100 MG PO (20:15)
[2023-02-25] MEDS: ATORVASTATIN 40 MG TABLET 80 MG PO (20:15)
[2023-02-25] MEDS: GABAPENTIN 300 MG CAPSULE 1200 MG PO (20:16)
[2023-02-25] MEDS: TAMSULOSIN HCL 0.4 MG CAPSULE PO (20:16)
[2023-02-25] MEDS: INSULIN GLARGINE (*BKC) 100 UNITS/ML 45 UNITS SUB-Q (20:34)
[2023-02-25 20:39] LABS: Glucose Point of Care 149 mg/dl (65-105)
[2023-02-26] VITALS: PULSE 70
[2023-02-26 04:00] VITALS: PULSE 59
[2023-02-26 05:08] VITALS: BP 155/86; PULSE 89; RESP 16; TEMP 36.4; O2SAT 100
[2023-02-26 06:32] LABS: Hemoglobin 11.3 g/dL (14.0-18.0); Mean Corpuscular HGB Conc 33.2 g/dl (32-36); Mean Corpuscular Hemoglobin 35.2 pg (26-34); Mean Corpuscular Volume 105.9 fl (80-100); Mean Platelet Volume 9.4 fl (7.4-10.4); Platelet Count Result 224 k/mm3 (150-375); Red Blood Count 3.21 M/mm3 (4.6-6.20); Red Cell Distribution Width 13.7 % (11.5-14.5); White Blood Count 8.1 K/mm3 (4.5-10.0)
[2023-02-26 06:42] LABS: Alanine Aminotransferase 22 U/L (6-50); Albumin Level 2.9 g/dL (3.5-5.1); Alkaline Phosphatase 62 U/L (38-126); Anion Gap 3 mmol/L (8-16); Aspartate Amino Transferase 19 U/L (17-59); Bilirubin,Total 0.4 mg/dL (0.2-1.3); Blood Urea Nitrogen 16 mg/dL (9-20); Carbon Dioxide 28 mmol/L (22-30); Chloride 105 mmol/L (98-107); Estimated CRCL calculation 68 ml/min; Estimated Glomerular Filt Rate > 60; Glucose 63 mg/dL (65-110); Potassium 3.6 mmol/L (3.4-5.0); Sodium 136 mmol/L (137-145)
[2023-02-26 08:00] VITALS: PULSE 78
[2023-02-26 08:03] LABS: Glucose Point of Care 68 mg/dl (65-105)
[2023-02-26] MEDS: GABAPENTIN 300 MG CAPSULE 900 MG PO (08:53)
[2023-02-26] MEDS: oxyBUTYnin CHLORIDE XL 5 MG TAB.ER.24 15 MG PO (08:53)
[2023-02-26] MEDS: FOLIC ACID 1 MG TABLET PO (08:54)
[2023-02-26] MEDS: lisinopriL 20 MG TABLET PO (08:54)
[2023-02-26] MEDS: ASPIRIN 81 MG CHEWABLE TABLET PO (08:54)
[2023-02-26] MEDS: FAMOTIDINE 20 MG TABLET PO (08:54)
[2023-02-26] MEDS: CLOPIDOGREL BISULFATE 75 MG TABLET PO (08:54)
[2023-02-26] MEDS: EMPAGLIFLOZIN 10 MG TABLET PO (08:54)
[2023-02-26] MEDS: HYDROXYUREA (*CHEMO) 500 MG CAPSULE PO (08:54)
[2023-02-26 08:58] VITALS: PULSE 88
[2023-02-26] MEDS: METOPROLOL SUCCINATE EXT REL 25 MG TABCR PO (08:58)
[2023-02-26] MEDS: levETIRAcetam 250 MG TABLET PO (08:59)
[2023-02-26 12:00] VITALS: PULSE 82
--- NOTE | 2023-02-26 12:20 | PM.DS ---
DS: Admitting Diagnosis Discharge Date February 26, 2023 Admitting Diagnosis Mental status DS: Discharge Diagnosis Discharge Diagnosis (1) Encephalopathy: Code(s): G93.40 - Encephalopathy, unspecified Status: Acute Assessment and Plan: Uncertain cause of patient's altered mental status the suspected drug induced encephalopathy as THC and amphetamine screen were positive. No fever. Normal ammonia. Normal electrolytes. 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 Prior Stroke, no focal deficits to suspect acute stroke. Neurology consulted, appreciate recommendations. (2) Dehydration: Code(s): E86.0 - Dehydration Status: Acute Assessment and Plan: IV fluids continued due to low oral intake. Electrolytes stable on morning labs. (3) Nausea and vomiting: Code(s): R11.2 - Nausea with vomiting, unspecified Status: Acute Assessment and Plan: No ongoing complaint of nausea, no vomiting at this time. (4) Chronic obstructive pulmonary disease: Code(s): J44.9 - Chronic obstructive pulmonary disease, unspecified Status: Acute Assessment and Plan: No wheezing, positive loud periodic smoker's cough noted. (5) Hypercalcemia: Code(s): E83.52 - Hypercalcemia Status: Acute Assessment and Plan: Improved from 11.1 to 9.8 with IV fluids. (6) Essential hypertension: Code(s): I10 - Essential (primary) hypertension Status: Chronic Assessment and Plan: Stable today, continue to monitor (7) Type 2 diabetes mellitus: Code(s): E11.9 - Type 2 diabetes mellitus without complications Status: Acute Assessment and Plan: Insulin ordered. A1c 7.4 on admission (8) Tobacco dependence: Code(s): F17.200 - Nicotine dependence, unspecified, uncomplicated Status: Chronic Assessment and Plan: Refused nicotine patch when nursing tried to place. Plan EEG per Neurology. DS: Summary Hospital Course Hospital Course: Admitted for altered mental status, likely related to acute drug intoxication. Patient is back to baseline. He can be discharged home. Time Spent with Patient Time attestation: Total time spent providing and/or coordinating discharge services: Exam Narrative: General: Moderately ill-appearing gentleman in supine position in bed. HEENT: Normocephalic, atraumatic. Pupils are approximately 3 mm and are reactive. Sclera anicteric. Conjunctiva mildly injected. Tacky mucous membranes. Neck: Supple. No JVD Respiratory: Lungs are clear to auscultation bilaterally. Loud periodic cough noted, likely chronic smoker's cough Cardiovascular: Regular rate and rhythm with S1-S2. Gastrointestinal: Abdomen is soft, nontender and nondistended with positive bowel sounds. No guarding or rebound tenderness. Skin: Warm and dry. No rash or lesions on limited exam. Extremities: No cyanosis, clubbing, or edema. Radial and pedal pulses intact. Neurological: Alert and oriented x1. He cannot provide me with the current year or events leading to hospitalization. Speech is clear. No facial asymmetry. Generalized weakness without obvious focal findings. Psychiatric: Pleasant and cooperative with some questions. DS: Data Data Completed and Pending Labs on day of discharge: Labs from last 24 hours 02/26/23 02/26/23 02/25/23 07:56 06:20 20:31 WBC 8.1 RBC 3.21 L Hgb 11.3 L Hct 34.0 L MCV 105.9 H MCH 35.2 H MCHC 33.2 RDW 13.7 Plt Count 224 MPV 9.4 Sodium 136 L Potassium 3.6 Chloride 105 Carbon Dioxide 28 Anion Gap 3 L BUN 16 Creatinine 1.10 Estim Creat Clear Calc 68 Estimated GFR > 60 Glucose 63 L POC Capillary Glucose 68 149 H Calcium 9.0 Total Bilirubin 0.4 AST 19 ALT 22 Alkaline Phosphatase 62 Total Protein 6.0 L Albumin 2.9 L 02/25/23 17:01 WBC RBC Hgb Hct MCV MC
[2023-02-26 12:26] LABS: Glucose Point of Care 166 mg/dl (65-105)
--- NOTE | 2023-02-26 13:49 | PCPTNOTE ---
On 02/26/23, the student, SHAUN Duran, provided care and completed [facility] documentation on this patient. I have reviewed the student's documentation and agree with the findings.
== END 2023-02-26 14:47 | disposition home or self-care (01) | DRG 52 ==
LOC: ANHED 11:44 → ANH3MED 12:15
PROVIDERS: Nurse Practitioner; Physician Assistant; Admitting Provider Internal Medicine; Emergency Provider Emergency Medicine; PCP Physician Assistant; Visit Provider Chiropractor
DX: G92.8 Other toxic encephalopathy (principal); E11.42 Type 2 diabetes mellitus with diabetic polyneuropathy; E11.22 Type 2 diabetes mellitus with diabetic chronic kidney disease; I49.5 Sick sinus syndrome; I69.354 Hemiplegia and hemiparesis following cerebral infarction affecting left non-dominant side; E11.9 Type 2 diabetes mellitus without complications; D63.1 Anemia in chronic kidney disease; E86.0 Dehydration; I10 Essential (primary) hypertension; F17.210 Nicotine dependence, cigarettes, uncomplicated; G89.29 Other chronic pain; M54.9 Dorsalgia, unspecified; I25.2 Old myocardial infarction; I12.9 Hypertensive chronic kidney disease with stage 1 through stage 4 chronic kidney disease, or unspecified chronic kidney disease; N18.30 Chronic kidney disease, stage 3 unspecified; E78.5 Hyperlipidemia, unspecified; G47.33 Obstructive sleep apnea (adult) (pediatric); E55.9 Vitamin D deficiency, unspecified; T40.715A Adverse effect of cannabis, initial encounter; J41.0 Simple chronic bronchitis; R11.2 Nausea with vomiting, unspecified; Z79.02 Long term (current) use of antithrombotics/antiplatelets; Z79.82 Long term (current) use of aspirin; Z79.4 Long term (current) use of insulin; Z88.0 Allergy status to penicillin; Z95.0 Presence of cardiac pacemaker; Z86.711 Personal history of pulmonary embolism
CPT/HCPCS: 36415; 70450; 71046; 74018; 80048; 80053; 80307; 81001; 82010; 82140; 82306; 82550; 82607; 82728; 82746; 82948; 83036; 83540; 83550; 83605; 83690; 83735; 84439; 84443; 84480; 84484; 85025; 85027; 85610; 85730; 87040; 87077; 93005; 96361; 96374; 96375; 97161; 99285; A9270; G0378; G0379; J1815; J2060; J2310; J2405; J3370; J7030; J7120

== ENCOUNTER 2023-03-02 09:00 | Outpatient (RCR) | payer OTHER, SELFPAY ==
--- NOTE | 2023-01-13 09:42 | PTOPEVAL1 ---
Assessment and note entered by Zoë Ferreira, PT Evaluation Information Assessment Status Evaluation Diagnosis lower back pain, neuropathy Onset unknown Subjective Information Patient referred to physical therapy due to low back pain. Patient has had success with aquatic therapy in the past and would like to try that route again. Recent CT of lumbar spine shows severe lumbar spondylosis. Patient reports he is severely limited in his mobility due to his back pain, particularly with ambulating increased distances. Patient goal is to decrease back pain in order to improve mobility in community. Pain currently rated as 8/10 in back, denies radiating pain on this date. Reported Pain Level Pain Score 8: Self Report Assessment PT Clinical Summary Patient is 63 year old male referred to physical therapy due to back pain, spondylosis of lumbar spine. Patient pain currently limits ability to perform gait increased distances, ascend/descend stairs safely, and also contributes to balance impairments/falls. Patient presents with decrease lumbar range of motion, core and lower extremity weakness, balance impairments, and pain rated 8/10 . Recommending aquatic therapy at this time 2x/wk for 4 weeks to reduce pain and improve strength/ lumbar mobility in order to improve safety/ independence with mobility in community. Plan of Care Interventions Aquatic Therapy,Gait Training,Hot Pack/Cold Pack, Manual Therapy,Neuro Re-education,Patient/ Caregiver Education,Therapeutic Activities, Therapeutic Exercise Other Interventions cupping, taping, iastm PT Services Indicated Yes Treatment Frequency and 2x/wk for 4 weeks Duration These treatments will address the objective and functional deficits as defined above. The patient will be advanced safely and appropriately in order for the patient to progress towards his/her prior level of function. Additional exercises will be introduced and as well as a comprehensive home exercise program upon discharge, if needed, ?to ensure carryover of functional gains achieved in the clinic. This treatment plan has been reviewed and agreement upon by the patient.
--- NOTE | 2023-01-13 09:42 | OPREHPOC ---
Outpatient Therapy Plan of Care This is a Multidisciplinary Plan of Care that may contain components documented by all disciplines (PT, OT, and ST.) PT Problem 1 PT Problem #1 Knowledge Deficit PT Goal 1 Goal patient will demonstrate independence with home exercise program PT Problem 2 PT Problem #2 Impaired Balance PT Goal 1 Goal Patient will report no falls since initiation on PT services due ot improvements in pain, balance, and strength PT Problem 3 PT Problem #3 Pain PT Goal 1 Goal Patient will report back pain as 5/10 PT Problem 4 PT Problem #4 Impaired Gait PT Goal 1 Goal Patient will ambulate with cane in community with pain at 5/10 throughout mobility PT Problem 5 PT Problem #5 Impaired Functional Mobil PT Goal 1 Goal Patient will report improved ability to perform stairs to enter/exit apartment due to reduction in pain
--- NOTE | 2023-01-23 09:30 | PCPTNOTE ---
Patient called & cancelled scheduled appointment this date due to not feeling well.
--- NOTE | 2023-02-13 10:25 | PTOPPROG ---
Assessment and note entered by Zoë Ferreira, PT Evaluation Information Assessment Status Progress Diagnosis back pain Onset unknown Subjective Information Patient and caregiver present for progress update on this date. Patient reports improvement in walking ability, improvement in strength, and reduction in falls at this time. Patient would like to continue with aquatic therapy due to pain relief as well as improvements with mobility on land. Pain rated as 9/10 on this date in back. Assessment PT Clinical Summary Progress update completed on this date. Patient has demonstrated improvements in lower extremity strength, balance, and self reports of mobility at home with gait/stairs. Patient continues to experience severe reports of back pain which are relieved with aquatic therapy. Patient would benefit from continued aquatic therapy services to improve lower extremity strength/core strength, decrease back pain, and improve mobility in home/ community while decreasing fall risk. Recommending continued therapy 2x/wk for 4 weeks to improve safety with mobility and decrease pain. Plan of Care Interventions Aquatic Therapy Other Interventions cupping, taping, iastm PT Services Indicated Yes Treatment Frequency and 2x/wk for 4 weeks aquatic therapy Duration These treatments will address the objective and functional deficits as defined above. The patient will be advanced safely and appropriately in order for the patient to progress towards his/her prior level of function. Additional exercises will be introduced and as well as a comprehensive home exercise program upon discharge, if needed, ?to ensure carryover of functional gains achieved in the clinic. This treatment plan has been reviewed and agreement upon by the patient.
--- NOTE | 2023-02-13 10:25 | OPREHPOC ---
Outpatient Therapy Plan of Care This is a Multidisciplinary Plan of Care that may contain components documented by all disciplines (PT, OT, and ST.) PT Problem 1 PT Problem #1 Knowledge Deficit PT Goal 1 Goal patient will demonstrate independence with home exercise program- MET PT Problem 2 PT Problem #2 Impaired Balance PT Goal 1 Goal 1. Patient will report no falls since initiation on PT services due to improvements in pain, balance, and strength- partially met, NO FALLS DUE TO LOSS OF BALANCE goal continues 2. Patient will perform tejeda balance test with score of 23 PT Problem 3 PT Problem #3 Pain PT Goal 1 Goal Patient will report back pain as 5/10- NOT MET pain 9/10 goal continues PT Problem 4 PT Problem #4 Impaired Gait PT Goal 1 Goal 1. Patient will ambulate with cane in community with pain at 5/10 throughout mobility- NOT MET 9/ 10 with walking goal continues 2. Patient will perform 2 minute walk test with distance of 250 ft- goal added PT Problem 5 PT Problem #5 Impaired Functional Mobil PT Goal 1 Goal 1. Patient will report improved ability to perform stairs to enter/exit apartment due to reduction in pain- NOT MET stairs continue be unsafe due to structural impairments. caregiver reports improvements in strength with stairs goal continues
--- NOTE | 2023-02-23 08:09 | PCPTNOTE ---
Patient called & cancelled scheduled appointment this date due to heading to the ER.
--- NOTE | 2023-02-25 09:35 | PCPTNOTE ---
Patient called & cancelled scheduled appointment this date due to still being admitted to the hospital.
--- NOTE | 2023-02-26 08:22 | PCPTNOTE ---
02/13 charge error, PT eval code entered by mistake at time of progress update.
--- NOTE | 2023-03-05 12:11 | PCPTNOTE ---
Pt cancelled appt. this morning due to caregiver being sick.
== END 2023-04-02 11:14 | disposition home or self-care (01) ==
LOC: ANHPT 09:00
PROVIDERS: PCP Physician Assistant
DX: G62.9 Polyneuropathy, unspecified (principal)
CPT/HCPCS: 97110; 97113; 97162; 97163; 97750

== ENCOUNTER 2023-08-12 09:00 | Outpatient (RCR) | payer OTHER, SELFPAY ==
--- NOTE | 2023-07-01 09:32 | PTOPEVAL1 ---
Assessment and note entered by Basilio White Evaluation Information Assessment Status Evaluation Diagnosis low back pain Onset 06/22/23 Subjective Information Pt. reports that he has been experiencing low back pain for about 10 years. He describes pain in the center of the low back. Pt. reports that his pain is constant. Pt. reports that he has had previous spinal surgery. He reports that pain is increased with standing and walking. He reports that long car rides will increase his low back pain. Pt. reports that he has had multiple xray and MRI and has been diagnosed with spinal stenosis. He reports that he can only stand for 5 minutes, unless he has something to lean on. He reports that he currently uses a cane and has been walking with a cane for about 1 year. Pt. reports that he does utilize hydrocodone at least 2x/day for pain relief. He reports that his goal for therapy is to reduce pain and improve how long he is able to stand. Reported Pain Level Pain Score 7: Self Report Assessment PT Clinical Summary Pt. is a 63 year old male who enters the clinic with low back pain due to spinal stenosis. Pt. has difficulty with prolonged standing and would benefit from treatment in an aquatic environment due to the benefits of the buoyancy for lumbar decompression. He currently presents with pain, impaired strength, impaired balance, impaired gait and functional decline. Continued skilled PT is indicated in order to improve these areas to allow for improve tolerance to standing activities. Plan of Care Interventions Aquatic Therapy,Electrical Stimulation,Gait Training,Manual Therapy,Neuro Re-education,Patient /Caregiver Educati,Therapeutic Activities, Therapeutic Exercise PT Services Indicated Yes Treatment Frequency and 2x/week x 10 visits Duration These treatments will address the objective and functional deficits as defined above. The patient will be advanced safely and appropriately in order for the patient to progress towards his/her prior level of function. Additional exercises will be introduced and as well as a comprehensive home exercise program upon discharge, if needed, ?to ensure carryover of functional gains achieved in the clinic. This treatment plan has been reviewed and agreement upon by the patient.
--- NOTE | 2023-07-01 09:32 | OPREHPOC ---
Outpatient Therapy Plan of Care This is a Multidisciplinary Plan of Care that may contain components documented by all disciplines (PT, OT, and ST.) PT Problem 1 PT Problem #1 Knowledge Deficit PT Goal 1 Goal Pt. will be independent with a HEP addressing core strength and trunk mobility Target Visit 2 PT Problem 2 PT Problem #2 Impaired Strength PT Goal 1 Goal Pt. will increase bilateral hip extension and hip abduction strength to 4+/5 to improve standing endurance. Target Visit 10 PT Problem 3 PT Problem #3 Impaired Endurance PT Goal 1 Goal Pt. will report being able to stand for a duration of 20-30 minutes to improve participation in IADL 's such as grocery shopping. Target Visit 10 PT Problem 4 PT Problem #4 Impaired Functional Mobil PT Goal 1 Goal Pt. will demonstrate less than 45% limitation on the Oswestry indicating signficant functional improvement. Target Visit 10 PT Goal 2 Goal Pt. will improve his tinetti score to 19 or greater indicating improved safety and function. Target Visit 10
--- NOTE | 2023-08-12 10:15 | PTOPEVAL1 ---
Assessment and note entered by Basilio White Discharge Information Assessment Status Discharge Diagnosis low back pain Onset 06/22/23 Subjective Information Pt. reports that he continues to have intense low back pain. He states that he does feel good while in the pool, but pain returns quickly. He reports that he cannot stand greater than 10 minutes. He reports no complication with sleep. He states that he continues to use marijuana and pain medication prior to going to bed. He continues to use Vicodin 2-3x/day. He states that he has a follow up with his doctor on 09/14/23. Reported Pain Level Pain Score 8: Self Report Assessment PT Clinical Summary Mr. Riley has attended a total of 8 treatment sessions. Despite temporary relief following his aquatic sessions, he continues to struggle with intense pain. He currently has a comprehensive HEP with written instruction. He is informed to contact his doctor regarding follow up to discuss if epidural injections would be appropriate. He will be discharged from our care at this time. Plan of Care Interventions Aquatic Therapy,Electrical Stimulation,Gait Training,Manual Therapy,Neuro Re-education,Patient /Caregiver Educati,Therapeutic Activities, Therapeutic Exercise PT Services Indicated Treatment Frequency and D/C from PT to an independent HEP. Duration These treatments will address the objective and functional deficits as defined above. The patient will be advanced safely and appropriately in order for the patient to progress towards his/her prior level of function. Additional exercises will be introduced and as well as a comprehensive home exercise program upon discharge, if needed, ?to ensure carryover of functional gains achieved in the clinic. This treatment plan has been reviewed and agreement upon by the patient.
--- NOTE | 2023-08-12 10:21 | PTOPDC ---
Assessment and note entered by Basilio [facility] Evaluation Information Assessment Status Discharge Diagnosis low back pain Onset 06/22/23 Subjective Information Pt. reports that he continues to have intense low back pain. He states that he does feel good while in the pool, but pain returns quickly. He reports that he cannot stand greater than 10 minutes. He reports no complication with sleep. He states that he continues to use marijuana and pain medication prior to going to bed. He continues to use Vicodin 2-3x/day. He states that he has a follow up with his doctor on 09/14/23. Reported Pain Level Pain Score 8: Self Report Assessment PT Clinical Summary Mr. Riley has attended a total of 8 treatment sessions. Despite temporary relief following his aquatic sessions, he continues to struggle with intense pain. He currently has a comprehensive HEP with written instruction. He is informed to contact his doctor regarding follow up to discuss if epidural injections would be appropriate. He will be discharged from our care at this time. Plan of Care PT Services Indicated D/C from PT to an independent HEP.
== END 2023-08-12 14:22 | disposition home or self-care (01) ==
LOC: ANHPT 09:00
PROVIDERS: PCP Physician Assistant; Visit Provider Physician Assistant
DX: M54.50 Low back pain, unspecified (principal)
CPT/HCPCS: 97110; 97113; 97161; 97530

== ENCOUNTER 2024-03-29 09:00 | Outpatient (RCR) | payer OTHER, SELFPAY ==
--- NOTE | 2024-02-12 08:54 | OPREHPOC ---
Outpatient Therapy Plan of Care This is a Multidisciplinary Plan of Care that may contain components documented by all disciplines (PT, OT, and ST.) PT Problem 1 PT Problem #1 Knowledge Deficit PT Goal 1 Goal *indep with HEP Target Visit 10 PT Problem 2 PT Problem #2 Impaired Strength PT Goal 1 Goal increase LE strength and motor control, to improve gait/balance 1* pt perform sitting and standing R and L LE exercises with 3# ankle wt x 15 reps 2* sit/stand transfer with use of 1 UE Target Visit 10 PT Problem 3 PT Problem #3 Impaired Functional Mobility PT Goal 1 Goal improve balance, to decrease risk for falls 1* Tinetti balance/gait score of 22/28 2* 2 minute walking test distance of 300' 3* 5 reps sit/stand time of 18 seconds Target Visit 10
--- NOTE | 2024-02-12 08:54 | PTOPEVAL1 ---
Assessment and note entered by Jessica Marquez, PT Evaluation Information Assessment Status Evaluation Diagnosis neuropathy of LE G62.9 ICD-10 Condition Codes (PT) Difficulty Walking R26.2,R26.9,Weakness R53.1 Other ICD-10 Condition Codes ( imbalance R26.89 PT) Onset November 2023 Subjective Information gradually more problems with walking and legs; having problems with 23 steps into his apartment; use the cane for few years; try to be active as he can; in the past 3 months have fallen 7x--legs like rubber and cannot stand anymore; not doing any leg exercises--back hurts too much to do; going to pelvic floor therapy at another facility due to testicular pain--is helping; Activity: indep with bathing, dressing, use cane when out of apt, inside grab furniture if need; have caregiver Lexi- does home tasks, laundry, cooking, transportation, meds. GOAL: make back feel better, get legs stronger, not have any more falls; Reported Pain Level Pain Score Self Report Additional Pain Score Comments pain range in the past week 8-9/10 low back Assessment PT Clinical Summary Rommel has the diagnosis of LE neuropathy and imbalance of gait. He lives alone and has a caregiver to assist with home tasks and transportation. He reports falls due to legs give out. History includes: chronic back pain, pacemaker, diabetes, multiple CVA's, leukemia--follow with cancer dr every 3 months for iron infusions PRN. With the evaluation: he has decreased motor control and strength of LE's; Tinetti balance score of 17/28= high risk for falls; 5 reps sit/ stand time of 23 seconds and 2 minute walking test distance of 225' with cane. Skilled PT services are indicated for LE strength, gait and balance retraining-- aquatic and land activities, with education for HEP. Will monitor pain of back and legs during sessions. Plan of Care Interventions Aquatic Therapy,Neuro Re-education,Patient/
--- NOTE | 2024-03-15 09:47 | PCPTNOTE ---
Pt forgot appt day and time.
--- NOTE | 2024-04-01 09:26 | PCPTNOTE ---
pt did not show for today's reevaluation appt. Called and unable to leave message--voice mail box full.
--- NOTE | 2024-05-12 14:38 | PCPTNOTE ---
PHYSICAL THERAPY DISCHARGE Dr. Meredith Richmond has received 8 PT sessions from February 11 to March 29 for the diagnosis of imbalance, gait difficulty, weakness. He has not show for PT appointments; therefore, he will be discharged at this time. The goals were not assessed.
== END 2024-05-02 10:00 | disposition home or self-care (01) ==
LOC: ANHPT 09:00
PROVIDERS: PCP Physician Assistant
DX: R26.89 Other abnormalities of gait and mobility (principal); G62.9 Polyneuropathy, unspecified
CPT/HCPCS: 97110; 97113; 97140; 97161; 97530

== ENCOUNTER 2024-09-16 11:52 | Observation (INO) | payer OTHER, SELFPAY ==
[2024-09-16] VITALS (19 sets, daily range): BP systolic 150–200; BP diastolic 71–98; PULSE 80–122; RESP 10–24; TEMP 36.4–37.3; O2SAT 78–100
--- NOTE | ~2024-09-16 | XR_ITS ---
XR chest 1V 09/16/2024 15:08 Indication: Altered mental status Procedure: AP portable chest Comparison: Comparison to multiple prior studies sequentially, with oldest reviewed study dated 02/20. Findings: Moderate cardiomegaly. Pacemaker leads are stable. No focal air space disease, pulmonary ed heidi, pleural effusion or suspected pneumothorax. Impression: 1: No acute cardiopulmonary disease. Reviewed, dictated and finalized at location B. RESPIRATORY Impression: 1: No acute cardiopulmonary disease.
--- NOTE | ~2024-09-16 | CT_ITS ---
CLINICAL INDICATION: Altered mental status with abdominal pain COMPARISON: 05/29/2020 TECHNIQUE: Multiple contiguous axial images of the abdomen and pelvis were performed following the ad ministration of with 100 mL Omnipaque-350 intravenous contrast The dose-length product (DLP) was 1338.80 mGy-cm. Automated exposure control and iterative reconstruction technique were employed. FINDINGS/OBSERVATIONS: Visualized lower thorax: The bilateral lung bases are clear. The heart is enlarged, without pericardial effusion. Liver: The liver enhances homogeneously and is not enlarged measuring 18 cm in longitudinal dimension. Gallbladder and biliary system: The gallbladder is only minimally distended, and otherwise unremarkable. Pancreas: The pancreas enhances homogeneously without ductal dilatation. Spleen: The spleen enhances homogeneously and is not enlarged measuring 8 cm in longitudinal dimension. Kidneys: Subcentimeter foci of decreased attenuation detected bilaterally, too small to characterize. The remainder of bilateral kidneys otherwise enhance symmetrically without hydronephrosis or renal ca lculi. Adrenal glands: Unremarkable. Gastrointestinal tract: Colonic diverticulosis without surrounding inflammatory change. Appendix: The air-filled appendix is of normal caliber (axial series, images 131 through 147) Vasculature: Calcified atherosclerotic disease. Lymph nodes: No pathologically enlarged or morphologically suspicious lymph nodes within the retroperitoneum or at the root of the mesentery. Pelvic structures: The bladder is minimally distended, and otherwise unremarkable. The prostate gland is minimally enlarged. Body wall and musculoskeletal: L3 vertebral augmentation. Degenerative disease at the levels of L4/L5 and L5/S1 with osteophyte formation, disc space narrowing and endplate changes. No acute fracture.. IMPRESSION: No acute intra-abdominal pathology, as detailed above. Reviewed, dictated and finalized at location A. SANDER
--- NOTE | ~2024-09-16 | CT_ITS ---
EXAMINATION: CTA chest PE protocol DATE: 09/16/2024 16:53 INDICATION: Shortness of breath TECHNIQUE: Computed tomography (CT) pulmonary angiogram of the chest was performed with 100 mL Omnipa que-350 intravenous contrast. Additional 3D reconstructions utilizing coronal maximum intensity proje ction (MIP) were performed. Automated exposure control and iterative reconstruction technique were em ployed. The dose-length product was 788.48 mGy-cm. COMPARISON: None FINDINGS: No pulmonary embolism. Sensitivity decreased in the basilar subsegmental pulmonary arteries and essen tially nondiagnostic in the basilar subsegmental pulmonary arteries due to prominent respiratory ekta on at the lower lungs. Mosaic attenuation in the dependent lungs consistent with mild atelectasis wit h subsegmental regions of air trapping related to small airways disease. No pneumonia, pulmonary paula a or pleural effusion. Mild cardiomegaly. Atherosclerotic coronary artery calcification. Cardiac pace maker lead tips in the right atrium and right ventricle. No pericardial effusion. Thoracic aorta is n ormal in caliber with no dissection. No pathologically enlarged thoracic lymphadenopathy. Small slidi ng-type hiatal hernia versus wall thickening in the distal esophagus. Mild S-shaped scoliosis of the thoracic spine with severe spondylosis in the lower thoracic spine. IMPRESSION: 1. No pulmonary embolism. Assessment limited in the basilar segmental and nondiagnostic in the basila r subsegmental pulmonary arteries due to respiratory motion. 2. Cardiomegaly. 3. Small sliding-type hiatal hernia versus esophagitis with wall thickening at the distal esophagus. Reviewed, dictated and finalized at location A. HANDLER IMPRESSION: 1. No pulmonary embolism. Assessment limited in the basilar segmental and nondi agnostic in the basilar subsegmental pulmonary arteries due to respiratory ekta on. 2. Cardiomegaly. 3. Small sliding-type hiatal hernia versus esophagitis with wall thickening at the distal esophagus.
--- NOTE | ~2024-09-16 | CT_ITS ---
EXAMINATION: CT brain wo con DATE: 09/16/2024 15:05 INDICATION: Altered mental status. TECHNIQUE: Computed tomography (CT) of the head was performed without intravenous contrast. Sagittal and coronal reconstructions were performed. The mA was adjusted according to patient size. Iterative reconstruction technique was employed. The dose-length product was 605.33 mGy-cm. COMPARISON: head CT dated 02/23/2023 FINDINGS: Moderate-sized regions of encephalomalacia in the bilateral parietal lobes, small region of encephalo malacia in the left frontal lobe consistent with sequela of old infarcts. Additional small old infarc t in the left cerebellar hemisphere. Small old infarct at the anterior limb of the left internal caps ule. No acute intracranial hemorrhage, acute infarction or abnormal extra axial fluid collection. Chase tricles are normal and symmetric. No mass/mass effect. Mild mucosal thickening the left maxillary and bilateral ethmoid sinuses. Left otomastoiditis effusion. Orbits are normal. IMPRESSION: 1. No acute intracranial process. 2. Old infarcts in the bilateral parietal lobes, left frontal lobe, left cerebellar hemisphere and an terior limb of the left internal capsule. 3. Left otomastoiditis effusion. Reviewed, dictated and finalized at location A. RGIST/PEDIATRIC PULMONOLOGIST IMPRESSION: 1. No acute intracranial process. 2. Old infarcts in the bilateral parietal lobes, left frontal lobe, left cerebe llar hemisphere and anterior limb of the left internal capsule. 3. Left otomastoiditis effusion.
--- OUTSIDE RECORDS SUMMARY | 2024-09-16 11:56 | XMS_ITS | Encounter Summary ---
Author Organization [facility] Address Count includes the [facility] [place] [address] Care Team Providers Care Toppiece Cutter Name Role Phone Joseph Ann MD Unavailable [phone] Chai Junior MD Unavailable Ramandeep AnnP Primary Care Provider [phone] Dina Cloud PA-C Primary Care Provider [phone] Encounter Details Date Type Department Care Team (Late st Contact Info) Description 07/30/2018 Abstract [facility] at [address] [address] Baudilio Sewell MA Social History Tobacco Use Types Packs/Day Years Used Date Smoking Tobacco: Every Day Cigarettes Smokeless Tobacco: Never Comments:smokes 4-5 cigarett es per day for 35+ years Alcohol Use Standard Drinks/Week Comments No 0 (1 standard drink = 0.6 oz pur e alcohol) Sex and Gender Information Value Date Recorded Sex Assigned at Not on file Legal Sex Male 11:24 PM CDT Gender Identity Not on file Sexual Orientation Not on file Occupation Industry Job Start Date Job End Date Not on file Not on file Not on file Not on file Not on file Not on file Not on file Not on file documented as of this encounter Progress Notes * MARYAN Escobar - 07/30/2018 10:19 AM CST PG pt send 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 in 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 encounter Plan of Treatment Not on file documented as of this encounter Procedures Procedure Name Priority Date/Time Associated Diagnosis Comments CBC (OUTSIDE LAB) Routine 07/29/2018 BASIC METABOLIC PANEL Routine 07/29/2018 LIPID PANEL Routine 07/29/2018 HEMOGLOBIN, GLYCOSYLATED Routine 07/29/2018 CK (CPK) Routine 07/29/2018 ALT/SGPT Routine 07/29/2018 documented in this encounter Results * ALT/SGPT (07/29/2018) ALT 27 07/29/2018 us Doc [facility] Final Result * HEMOGLOBIN, GLYCOSYLATED (07/29/2018) HGB A1C 7.2 07/29/2018 us Doc [facility] Final Result * CK (CPK) (07/29/2018) CPK 70 07/29/2018 us Doc [facility] Final Result * LIPID PANEL (07/29/2018) CHOLESTEROL 192 HDL 30 TRIGLYCERIDES 246 LDL (CALCULATED) 113 07/29/2018 us Doc [facility] Final Result * BASIC METABOLIC PANEL (07/29/2018) SODIUM S/P/B 139 POTASSIUM S/P/B 4.8 CO2 23 CHLORIDE S/P/B 102 GLUCOSE 148 mg/dL CALCIUM S/P/B 11.0 BUN 11 CREATININE S/P/B 1.27 0.7 - 1.3 EGFR AFR. AMER. 72 EGFR NON-AFR. AMER. 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 [address] [place] [address] PCP - General NURSE PRACTITIONER 05/04/18 10/31/18 Dina Cloud PA-C [address] [place] [address] PCP - General NURSE PRACTITIONER 05/19/19 [facility] [address] [place] [address] [place] Nail Galvanizer CARDIOVASCULAR DISEASE 01/02/16 Chai [facility] [address] [place], [place] [address] EP Nail Galvanizer CARDIOVASCULAR DISEASE 09/03/16 documented as of this encounter
--- OUTSIDE RECORDS SUMMARY | 2024-09-16 11:56 | XMS_ITS | Clinical Summary ---
Author Organization [facility] Facility Address [address] [place] [address] Care Team Providers Care Time Study Engineer Name Role Phone Unavailable Primary Care Provider Unavailabl e Allergies Active Allergy Reactions Criticality Noted Date Comments Penicillins Rash Low 07/17/2016 Medications * This document contains information received from the source organization and may not represent a complete record from that organization. amitriptyline (ELAVIL) 100 MG tablet Take 100 mg by mouth every night 9 Active aspirin 81 MG chewable tablet aspirin 81 mg chewable tablet CHEW 1 T PO Q DAY Active atorvastatin (LIPITOR) 80 MG tablet Take 80 mg by mouth 1 (one) time each day 6 Active ergocalciferol 1.25 MG (41050 UT) capsule ergocalciferol (vitamin D2) 1,250 mcg (50,000 unit) capsule TAKE ONE CAPSULE BY MOUTH EVERY WEEK 8 Active folic acid (FOLVITE) 1 MG tablet Take 1 mg by mouth 1 (one) time each day Active gabapentin (NEURONTIN) 300 MG capsule Take 900 mg by mouth in the morning and 900 mg in the evening. And 1200 mg at bedtime.. 9 Active hydroxyurea (HYDREA) 500 MG capsule Take by mouth 1 (one) time each day Active insulin glargine (Lantus SoloStar) 100 UNIT/ML injection Inject 41 Units under the skin every night 0 Active metoprolol succinate XL (TOPROL XL) 25 MG 24 hr tablet Take 25 mg by mouth 1 (one) time each day 9 Active tamsulosin (FLOMAX) 0.4 MG 24 hr capsule Take 0.4 mg by mouth 1 (one) time each day 1 Active HYDROcodone-ac etaminophen (NORCO) 5-325 MG per tablet Take 1 tablet by mouth every 6 (six) hours if needed for moderate pain Active levETIRAcetam (KEPPRA) 250 MG tablet Take 250 mg by mouth in the morning and 250 mg in the evening. Active oxybutynin XL (DITROPAN-XL) 15 MG 24 hr tablet Take 15 mg by mouth 1 (one) time each day Do not crush, chew, or split. Active clopidogrel (PLAVIX) 75 MG tablet Take 75 mg by mouth 1 (one) time each day Active Dulaglutide (Trulicity) 0.75 MG/0.5ML solution pen-injector Inject 3 mg under the skin per week Active lisinopril 20 MG tablet Take 1 tablet (20 mg total) by mouth 1 (one) time each day 3 Active Albuterol-Canyon sonide 90-80 MCG/ACT aerosol Inhale 2 puffs if needed Active Active Problems Problem Noted Date Diagnosed Date Degeneration of lumbar intervertebral disc 12/02 Cardiac pacemaker in situ 07/04/2021 Cerebrovascular accident 07/04/2021 Stage 3b chronic kidney disease 07/04/2021 Congestive heart failure 07/04/2021 Type 2 diabetes mellitus with other specified co mplication 07/04/2021 Hyperlipidemia 07/04/2021 Hypertensive disorder 07/04/2021 Neuropathy due to diabetes mellitus 07/04/2021 Vitamin D deficiency 07/04/2021 Iron deficiency anemia 12/21/2020 Myeloproliferative disease 08/26/2018 Immunizations Name Administration Dates Next Due Influenza TIV (IM) 05/17/2019,04/29/2018 Influenza, Quadrivalent, Preservative Free 09/23,08/21/2015 Pneumococcal Polysaccharide 08/21/2015, 5 Family History Medical History Relation Comments Diabetes Father Cancer Mother Diabetes Mother Hypertension Mother Relation Status Comments Father Mother Social History Tobacco Use Types Packs/Day Years Used Date Smoking Tobacco: Every Day Cigarettes Smokeless Tobacco: Never Tobacco Cessation:Ready to Q uit: Not Asked; Counseling Given: Not Answered Alcohol Use Standard Drinks/Week Comments Yes 0 (1 standard drink = 0.6 oz pur e alcohol) Sex and Gender Information Value Date Recorded Sex Assigned at Not on file Legal Sex Male 2:50 PM EDT Gender Identity Not on file Sexual Orientation Not on file Last Filed Vital Signs Vital Sign Reading Time Taken Comments Blood Pressure 130/70 10/27/2023 10:38 AM CDT Pulse 73 10/27/2023 10:38 AM CDT Temperature 35.9 C (96.7 F) 10/27/2023 10:38 AM CDT Respiratory Rate 20 10/27/2023 10:38 AM CDT Oxygen Saturation 93% 10/27/2023 10:38 AM CDT Inhaled Oxygen Concentration - - Weight 106 kg (233 lb) 10/27/2023 10:38 AM CDT Height 172.7 cm (5' 8 ) 10/27/2023 10:38 AM CDT Body Mass Index 35.43 10/27/2023 10:38 AM CDT Plan of Treatment Health Maintenance Due Date Last Done Comments Colorectal Cancer Screening: Annual FOBT 2010 Colorectal Cancer Screening: Colonoscopy 2010 Colorectal Cancer Screening: Sigmoidoscopy 2010 Pneumococcal Vaccine: Pediatrics (0 to 5 Years) and At-Risk Patients (6 to 64 Years) (3 of 3 - PCV) 02/09/2018 02/09/2017, 08/21/2015, 01/23/2015 Diabetes: Pedal Pulse Checked 12/28/2020 Diabetes: Sensory Foot Exam 12/28/2020 Diabetes: Visual Foot Exam 12/28/2020 Influenza Vaccine (#1) 2024 , 06/17/2022, 06/02/2022, Additional history exists Diabetes: Hemoglobin A1C 06/08/20242 024, 09/28/2023, 04/28/2023, Additional history exists Diabetes: Ophthalmology Exam 07/06/2024 07/06/2023, 04/15/2022 Hepatitis B Vaccine Aged Out No longe r eligible based on patient's age to complete this topic Procedures Procedure Name Priority Date/Time Associated Diagnosis Comments HEMOGLOBIN A1C Routine 03/08/2024 7:39 AM CDT from Last 3 Months or Most Recently Relevant to Health Maintenance Results * (ABNORMAL) Hemoglobin A1c (03/08/2024 7:39 AM CDT) Hemoglobin A1C 8.7(H) 4.8 - 5.6 % [facility] Comment: Prediabetes: 5.7 - 6.4 Diabetes: >6.4 Glycemic control for adults with diabetes: <7.0 03/08/2024 7:39 AM CDT 03/07/2024 11:00 PM CDT us Kevin Sahh MD LAB BLOOD ORDERABLES Final R esult [facility] [place] [address] [place] [address] from Last 3 Months or Most Recently Relevant to Health Maintenance Insurance [facility]
--- OUTSIDE RECORDS SUMMARY | 2024-09-16 11:56 | XMS_ITS | Encounter Summary ---
Author Organization [facility] Address Formerly [facility] [place] [address] Care Team Providers Care Steam Train Driver Name Role Phone Joseph Ann MD Unavailable [phone] Chai Junior MD Unavailable Annie Chavez MD Primary Care Provider [phone] Ramandeep AnnP Primary Care Provider [phone] Dina Cloud PA-C Primary Care Provider [phone] Encounter Details Date Type Department Care Team (Late st Contact Info) Description 10/23/2017 Abstract [facility] at [address] [address] Baudilio Sewell MA Social History Tobacco Use Types Packs/Day Years Used Date Smoking Tobacco: Every Day Cigarettes Smokeless Tobacco: Never Comments:smokes 3 cigarettes per day for 35+ years Alcohol Use [...] encounter Progress Notes * MARYAN Escobar - 10/23/2017 2:55 PM CDT Had appt today. documented in this encounter Plan of Treatment Not on file documented as of this encounter Procedures Procedure Name Priority Date/Time Associated Diagnosis Comments BASIC METABOLIC PANEL Routine 10/22/2017 documented in this encounter Results * (ABNORMAL) BASIC METABOLIC PANEL (10/22/2017) SODIUM S/P/B 137 POTASSIUM S/P/B 4.5 CO2 23 CHLORIDE S/P/B 98 GLUCOSE 152 mg/dL CALCIUM S/P/B 10.1 BUN 24 CREATININE S/P/B 1.51(A) 0.7 - 1.3 EGFR AFR. AMER. 59 EGFR NON-AFR. AMER. 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 [facility] [address] [place] [address] PCP - General FAMILY PRACTICE 08/03/17 05/03/18 Ramandeep Ann FNP [facility]. [facility] [address] [place] [address] PCP - General NURSE PRACTITIONER 05/04/18 10/31/18 Dina Cloud PA-C [address] [place] [id number] PCP - General NURSE PRACTITIONER 05/19/19 Joseph Ann MD [facility]. [facility] [address] [place] [address] [place] Nutritional Chemist CARDIOVASCULAR DISEASE 01/02/16 Chai Junior MD [address] [place] [address] EP Nutritional Chemist CARDIOVASCULAR DISEASE 09/03/16 documented as of this encounter
--- OUTSIDE RECORDS SUMMARY | 2024-09-16 11:56 | XMS_ITS | Encounter Summary ---
Author Organization [facility] Address [address] [facility] [place] [address] Care Team Providers Care Behavioral Health Aide Name Role Phone Dina Cloud PA-C Primary Care Provider Reason for Visit * Reason Onset Date Comments Question 02/25/2022 Encounter Details Date Type Department Care Team (Late st Contact Info) Description 02/25/2022 Telephone [facility] [address] [place] [address] Dina Cloud PA-C [address] [place] [phone] Question Social History Tobacco Use Types Packs/Day Years Used Date Smoking Tobacco: Every Day Cigarettes Smokeless Tobacco: Never Comments:using patches Alcohol Use Standard Drinks/Week Comments Yes 0 (1 standard drink = 0.6 oz pur e alcohol) Sex and Gender Information Value Date Recorded Sex Assigned at Not on file Gender Identity Not on file Sexual Orientation Not on file documented as of this encounter Miscellaneous Notes * Telephone Encounter - Cyndie Rogers - 02/25/2022 9:51 AM CDT Current Provider name: RODGER Reason for call: Patient Basilio Riley is requesting to speak to or the nursing staff regarding to follow up on arm meter I attempted to reschedule a f/u visit for May with ptdeclined stating he wants to talk to someone first before making an appt. Please call patient for cl arification on request. Patient Call Back number: [phone] documented in this encounter Plan of Treatment Upcoming Encounters Date Type Department Care Team (Late st Contact Info) Description 09/20/2024 9:30 AM SUPERVISOR PAPER PRODUCTS [facility] [address] [place] [phone] Meredith Weiss MD [address] [place] [address] 1L [place] [phone] 10/18/2024 1:00 AM CDT Clinical Support [facility] - Cardiology [address] [place] [phone] 10/25/2024 9:00 AM CDT Office Visit [facility] - Cardiology [address] [place] [phone] Daily Bravo MD [address] [place] [address] 11/08/2024 3:40 PM CDT Office Visit [facility] - Endocrinology [address] [place] [phone] Garry Tracey MD [address] [place] [address] 2L [place] [phone] 12/15/2024 2:00 PM CDT Office Visit [facility] - Pulmonology [address] [place] [phone] Becca Ford MD [address] [place] [address] 2L [place] [address] 01/17/2025 1:10 AM CDT Clinical Support [facility] - Cardiology [address], [address] [phone] 02/24/2025 9:10 AM CDT Office Visit [facility] - Dermatology [address] [place] [address], [place] [address] Robb Howell MD [address] [facility] 3 [place] [address] 03/02/2025 9:00 AM CDT [facility] Nephrology [address] [place] [address], [place] [address] Nataliia Cooper MD [address] [facility] 3 [place] [address] 04/18/2025 1:10 AM CDT Clinical [facility] Cardiology [address] [facility], [address] [phone] 07/18/2025 1:10 AM SUPERVISOR PAPER PRODUCTS Clinical Support [facility] - Cardiology [address] [facility], [address] [phone] documented as of this encounter Visit Diagnoses Not on filedocumented in this encounter Care Teams Behavioral Health Aide Relationship Specialty Start Date End Date Dina Cloud PA-C [address] [place] [phone] PCP - General Physician Misdraw Hand 07/10/20 documented as of this encounter
--- OUTSIDE RECORDS SUMMARY | 2024-09-16 11:56 | XMS_ITS | Clinical Summary ---
Author Organization [facility] Address [address] [place] [address] Care Team Providers Care Postmaster Name Role Phone Joseph Ann MD Unavailable [phone] Chai Junior MD Unavailable Dina Cloud PA-C Primary Care Provider [phone] Allergies Active Allergy Reactions Criticality Noted Date Comments Penicillins Other (see comment),Rash Low 04/05/2016 Pt does not remember Other reaction(s): Other Medications aspirin 81 MG tablet Take 1 tablet (81 mg total) by mouth daily. 7 Active atorvastatin 80 MG tablet Take 1 tablet (80 mg total) by mouth nightly at bedtime. 7 Active amitriptyline 100 MG tablet Take 100 mg by mouth nightly at bedtime. 7 Active cyclobenzaprin e 10 MG tablet Take 1 tablet (10 mg total) by mouth 2 (two) times daily as needed for Muscle Spasms. 7 Active duloxetine 30 MG capsule Take 1 capsule (30 mg total) by mouth daily. 8 Active gabapentin 300 MG capsule Take 900 mg by mouth 3 (three) times daily. Active levETIRAcetam 250 MG tablet Take 1 tablet by mouth 3 (three) times a day. 0 8 Active traMADol 50 MG tablet Take 1 tablet (50 mg total) by mouth daily as needed for Pain. 0 8 Active hydroxyurea 500 MG capsule Take by mouth daily. Active clopidogrel 75 MG tablet Take 75 mg by mouth daily. 9 Active nateglinide 120 MG tablet Take 120 mg by mouth 3 (three) times daily before meals. 9 Active folic acid 1 MG tablet Take 1 mg by mouth daily. 9 Active METOPROLOL SUCCINATE ER 25 MG 24 hr tablet TAKE 1 TABLET BY MOUTH DAILY 90 tablet 1 0 Active TRADJENTA 5 MG tablet Take 5 mg by mouth daily. 0 Active vitamin D2, ergocalciferol , 11319 UNITS capsule TK ONE C PO Q WK. 0 Active insulin glargine 100 UNIT/ML injection (VIAL) Inject into the skin nightly at bedtime. Active insulin lispro, 1 Unit Dial, 100 UNIT/ML injection (PEN) Inject into the skin 3 (three) times daily. Active canagliflozin (INVOKANA) 100 MG tablet Take 1 tablet by mouth daily. 0 Active tamsulosin 0.4 MG Cap Take 1 capsule by mouth daily. 0 Active lisinopril 20 MG tablet Take 0.5 tablets (10 mg total) by mouth daily. 45 tablet 1 0 Active HYDROcodone-ac etaminophen 5-325 MG tablet Take 1 tablet by mouth every 6 (six) hours as needed for Pain. Active Vitamin D, Cholecalcifero l, 25 MCG (1000 UT) Tab DAILY 0 Active Hydroxyurea 100 MG Tab DAILY 0 Active ammonium lactate 12 % lotion APPLY TO THE AFFECTED AREA DIRECTED 1 Active acetaminophen 500 MG tablet acetaminophen 500 mg tablet TAKE 1 TABLET BY MOUTH EVERY 6 HOURS NEEDED Active Blood Glucose Monitoring Suppl (ACCU-CHEK LAYNE CONNECT) w/Device Kit Accu-Chek Layne Plus test strips USE 1 STRIP BID Active dulaglutide 0.75 MG/0.5ML injection Inject 0.75 mg into the skin once a week. 2 Active empagliflozin 10 MG tablet Take 10 mg by mouth daily. 2 Active evolocumab (REPATHA SURECLICK) 140 MG/ML injection (PEN) Inject 140 mg into the skin. 1 Active Glucose Blood (ONETOUCH ULTRA) test strip 2 Active icosapent ethyl 1 G capsule Take 1 capsule by mouth. 2 Active Insulin Pen Needle (B-D ULTRAFINE III SHORT PEN) 31G X 8 MM Misc 1 Syringe. 1 Active Insulin Syringes, Disposable, (B-D INSULIN SYRINGE 1CC) U-100 1 ML Misc insulin syringe U-100 with needle 0.5 mL 31 gauge x 5/16 USE QID WITH LANTUS AND HUMALOG Active ketoconazole 2 % cream 1 Active Lancets (ONETOUCH DELICA PLUS OAAIAC29L) Misc Inject 1 each into the skin. 2 Active lidocaine 5 % ointment Apply 1 each topically 2 (two) times daily. 2 Active oxybutynin XL 15 MG 24 hr tablet Take 15 mg by mouth daily. 2 Active sildenafil 100 MG tablet Take 100 mg by mouth. 1 Active Active Problems Problem Noted Date Diagnosed Date PAD (peripheral artery disease) 06/02/2018 History of cerebrovascular accident 04/12/2018 History of pacemaker 04/12/2018 Inadequate sleep hygiene 04/12/2018 Obstructive sleep apnea 04/12/2018 Bilateral carotid artery stenosis 12/15/2017 SSS (sick sinus syndrome) ([facility]) 11/02 Abnormal EKG 06/04/2016 Syncope and collapse 06/04/2016 Type 2 diabetes mellitus wit h complication, with long-term current use of insulin ([facility]) 05/21/2016 CVA (cerebral vascular accident) ([facility]) 05/21/2016 Sacroiliitis 09/04/2015 MRSA (methicillin resistant staph aureus) cultur e positive 08/15/2015 Nontraumatic compression fra cture of lumbosacral vertebra ([facility]) 07/13/2015 Lumbar compression fracture ([facility]) Impingement syndrome of right shoulder 5 Shoulder pain, right 05/08/2015 Hyperlipidemia Essential hypertension CAD (coronary artery disease) Family History Medical History Relation Comments Diabetes Father Hypertension Mother Stroke Mother [place] Paternal Grandfather Stroke Paternal Grandmother Relation Status Comments Father Maternal Grandfather Maternal Grandmother Mother Paternal Grandfather (Age 70) Paternal Grandmother (Age 83) Social History Tobacco Use Types Packs/Day Years Used Date Smoking Tobacco: Every Day Cigarettes 0.5 35 Smokeless Tobacco: Never Tobacco Cessation:Ready to Q uit: Yes; Counseling Given: No Alcohol Use Standard Drinks/Week Comments Yes 0 [...] file Not on file Not on file Last Filed Vital Signs Vital Sign Reading Time Taken Comments Blood Pressure 137/72 11/27/2021 9:20 AM CDT Pulse 78 11/27/2021 9:20 AM CDT Temperature 36.3 C (97.3 F) 11/27/2021 9:06 AM CDT Respiratory Rate 19 11/27/2021 9:20 AM CDT Oxygen Saturation 98% 11/27/2021 9:20 AM CDT Inhaled Oxygen Concentration - - Weight 105.7 kg (233 lb) 11/12/2021 1:19 PM CDT Height 172.7 cm (5' 8 ) 11/12/2021 1:19 PM CDT Body Mass Index 35.43 11/12/2021 1:19 PM CDT Plan of Treatment Health Maintenance Due Date Last Done Comments ASCVD Statin 1961 Kidney Health Evaluation 1961 Annual Physical 01/06/1964 Diabetes: Retinopathy Eye Exam 1979 Hepatitis C 1979 Pneumococcal Vaccine: Pediatrics (0 to 5 Years) and At-Risk Patients (6 to 64 Years) (2 of 2 - PCV) 02/09/2018 02/09/2017, 08/21/2015, 01/23/2015 ASCVD LDL 02/21/2020 02/20/2019, 07/04, 09/22/2017, Additional history exists RSV Immunization or 60+ Years (1 - Risk 60-74 years 1-dose series) 2021 Hemoglobin A1C 11/17/2021 08/19/2021, 05/04, 12/18/2020, Additional history exists Zoster Vaccines (2 of 2) 12/29/2021 11/03/2021 Lipid Panel 10/03/2022 10/03/2021, 02/01, 07/29/2018, Additional history exists COVID-19 Vaccine ( season) 2024 07/17/2021, 11/11/2020, 10/15/2020 Influenza Adult (#1) 2024 05/17/2021, 06/14/2019, 05/17/2019, Additional history exists DTaP, Tdap and Td Vaccines (2 - Td or Tdap) 02/09/2027 02/09/2017 Colorectal Cancer Screening Colonoscopy (10 Years) 11/28/2031 11/27/2021, 11/27/2021, 10/05/2018 Meningococcal B Vaccine Aged Out No l onger eligible based on patient's age to complete this topic Meningococcal Vaccine Aged Out No jerrod ting eligible based on patient's age to complete this topic RSV Immunizations Under 20 Months Aged Out No longer eligible based on patient's age to complete this topic Medical Devices Implanted Type Area Supervisor Gas Meter Repair Device Identifier Shelf Expiration Date Model / Serial / Lot Atrial Lead-09/23/2016 Implanted:09/23 by Chai Junior MD (Quantity not on file) Lead Implant [employer] 5076 CAPSUREFIX NOVUS / [id number] / Ventricular Lead-09/23/2016 Implanted:09/23 by Chai Junior MD (Quantity not on file) Lead Implant [employer] 5076 CAPSUREFIX NOVUS / [id number] / Medtronic Pacemaker-2016 Implanted:09/23 by Chai Junior MD (Quantity not on file) Pacemaker [employer] [id number] ADVI SA DR STINSON / [id number] / Procedures Procedure Name Priority Date/Time Associated Diagnosis Comments COLONOSCOPY Routine 11/27/2021 8:29 AM CDT HEMOGLOBIN, GLYCOSYLATED Routine 02/21/2019 LIPID PANEL Routine 02/20/2019 from Last 3 Months or Most Recently Relevant to Health Maintenance Results * Colonoscopy (11/27/2021 8:29 AM CDT) Nikolai Teran MD - 11/27/2021 8:29 AM CDT Nikolai Solis MD 11/27/2021 9:16 AM NIKOLAI SOLIS MD, FACG, FACP COLONOSCOPY 11/27/2021 INDICATION: Personal history of colon polyps. POST-OP: Three polyps removed. SEDATION: Per Anesthesia PREP: Good. With the patient in the left lateral decubitus position, the Olympus [id number] colonoscope was introduced into the rectum and advanced easily to the Terminal Ileum. Careful inspection of the mucosa was made upon insertion and withdrawal of the endoscope. FINDINGS: Terminal ileum: distal 5 cm normal. Cecum, Transverse, Sigmoid colon and Rectum including retroflexion normal. Ascending colon: 7 mm sessile polyp removed with cold biopsy forceps without bleed. Descending colon: - 1.5 cm sessile polyp removed with snare polypectomy without bleed - 7 mm sessile polyp removed with cold biopsy forceps without bleed No masses, AVMs, colitis or diverticulosis seen. No complications, blood loss or implants. ASSESSMENT AND PLAN: Personal history of colon polyps: - Colonoscopy 10/05/2018 with adenoma x 3 - Colonoscopy 11/27/2021 with three polyps removed - If adenomatous repeat colonoscopy in three years, otherwise repeat colonoscopy in five years Thank you for allowing me to care for your patient. He will follow-up with PA. Jack Wiggins as needed. Nikolai Solis M.D. Cc: PA. 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 Advance Directives and Living Will 06/22/2020 9:37 AM [facility] 2019 * Full Code (Latest Code Status on File) Date Activated Date Inactivated Comments 09/28/2017 9:22 AM 09/28/2017 3:24 PM Care Teams Postmaster Relationship Specialty Start Date End Date Dina Cloud PA-C [address] [place] [phone] PCP - General NURSE PRACTITIONER 05/19/19 Joseph Ann MD [address] [address] [employer] Sales CARDIOVASCULAR DISEASE 01/02/16 Chai Junior MD [facility] [address] [place] [address] EP [employer] Ticket Sales CARDIOVASCULAR DISEASE 09/03/16
--- OUTSIDE RECORDS SUMMARY | 2024-09-16 11:56 | XMS_ITS | Encounter Summary ---
Author Organization [facility] Address [address] [facility] [address] Care Team Providers Care Instrument Assembly Supervisor Name Role Phone Ramandeep Ann Primary Care Provider Dina CloudC Primary Care Provider Encounter Details Date Type Department Care Team (Late st Contact Info) Description 11/19/2017 Telephone [facility] [address] [place] [address] Jack Carnes, RN Social History Tobacco Use Types Packs/Day Years Used Date Smoking Tobacco: Some Days Cigarettes Smokeless Tobacco: Never Alcohol Use Standard Drinks/Week Comments No 0 (1 standard drink = 0.6 oz pur e alcohol) Sex and Gender Information Value Date Recorded Sex Assigned at Not on file Gender Identity Not on file Sexual Orientation Not on file documented as of this encounter Progress Notes * Jack Carnes RN - 11/19/2017 12:22 PM CDT Pt. Is s/p L4-5 interlaminar epidural steroid injection on 11/17/17 , the request was for bilateral L4-5 and L5-S1 Medial branch Block for 9-10/10 lower back pain , per telephone pt. Stated his pain is unchanged and he has had many spinal injection in the past including cement injection in my lower back about two years ago at [facility] , and he said he is not sure what to do next ,he was informed that since all the spine injection was not done on 11/17/17 he can be schedule to returnfor addittoial injection ( medial branch block ) ,However pt. Was somehow reluctant to commit for any injection. And he is to make Dr. Burgess aware of no improvement with all the past injection. documented in this encounter Plan of Treatment Upcoming Encounters Date Type Department Care Team (Late st Contact Info) Description 09/20/2024 9:30 AM VENEER SUPERVISOR Office Visit [facility] - Neurology [address] [place] [address], [place] [phone] Mereidth Weiss MD [address] [place] [address] 1L [place] [phone] 10/18/2024 1:00 AM CDT [facility] [address] [place] [phone] 10/25/2024 9:00 AM CDT Office Visit [facility] - Cardiology [address] [place] [phone] Daily Bravo MD [address] [place] [address] 11/08/2024 3:40 PM CDT Office Visit [facility] - Endocrinology [address] [place] [address], [place] [phone] Garry Tracey MD [address] [place] [address] 2L DIV [place] [phone] 12/15/2024 2:00 PM CDT Office Visit [facility] - Pulmonology [address] [place] [address], [place] [phone] Becca Ford MD [facility] 2L DIV OF GEN INTERNAL [place] [address] 01/17/2025 1:10 AM CDT [facility] [address] [phone] 02/24/2025 9:10 AM CDT Office Visit [facility] - Dermatology [address] [place] [phone] Robb Howell MD [address] [facility] 3L DEPT [place] [address] 03/02/2025 9:00 AM CDT Office Visit [facility] - Nephrology [address] [place] [phone] Nataliia Cooper MD [facility]5 [facility] 3L Div [place] [address] 04/18/2025 1:10 AM CDT Clinical Support [facility] - Cardiology [address] [place] [phone] 07/18/2025 1:10 AM VENEER SUPERVISOR Clinical Support [facility] - Cardiology [address] [place] [phone] documented as of this encounter Visit Diagnoses Not on filedocumented in this encounter Care Teams Instrument Assembly Supervisor Relationship Specialty Start Date End Date Ramandeep Ann, CAB SUPERVISOR-WELDER MANUFACTURE [address] [place] [phone] PCP - General 03/17/17 07/09/20 Dina Cloud PA-C [address] [place] [phone] PCP - General Physician Radiologic Technologist Mammogram 07/10/20 documented as of this encounter
--- OUTSIDE RECORDS SUMMARY | 2024-09-16 11:56 | XMS_ITS | Encounter Summary ---
Author Organization [facility] Address [facility] [place] [address] Care Team Providers Care Sample Color Maker Name Role Phone Joseph Ann MD Unavailable [phone] Chai Junior MD Unavailable Kulwant Felix MD Primary Care Provider [phone] Annie Chavez MD Primary Care Provider [phone] Ramandeep Ann Primary Care Provider [phone] Dina Cloud PA-C Primary Care Provider [phone] Encounter Details Date Type Department Care Team (Late st Contact Info) Description 06/10/2017 Abstract [facility] AT [address] [address] Baudilio Sewell MA Social History Tobacco Use [...] as of this encounter Progress Notes * REAL Escobar-BC - 06/10/2017 2:39 PM CST PG pt send letter continue current meds ING SUPERVISOR documented in this encounter Plan of Treatment Not on file documented as of this encounter Procedures Procedure Name Priority Date/Time Associated Diagnosis Comments COMPREHENSIVE METABOLIC PANEL Routine 06/04/2017 LIPID PANEL Routine 06/04/2017 HEMOGLOBIN, GLYCOSYLATED Routine 06/04/2017 THYROXINE, FREE (FT4) Routine 06/04/2017 THYROID STIM HORMONE TSH Routine 06/04/2017 VITAMIN D, 25 OH Routine 06/04/2017 documented in this encounter Results * VITAMIN D, 25 OH (06/04/2017) VITAMIN D 25 HYDROXY S/P/B 20.9 06/04/2017 us Doc [facility] Final Result * HEMOGLOBIN, GLYCOSYLATED (06/04/2017) HGB A1C 8.4 06/04/2017 us Doc [facility] Final Result * LIPID PANEL (06/04/2017) CHOLESTEROL 204 HDL 26 TRIGLYCERIDES 240 LDL (CALCULATED) 130 06/04/2017 us Doc [facility] Final Result * (ABNORMAL) COMPREHENSIVE METABOLIC PANEL (06/04/2017) SODIUM S/P/B 136 POTASSIUM S/P/B 4.9 CO2 21 CHLORIDE S/P/B 97 GLUCOSE 159 mg/dL CALCIUM S/P/B 10.1 BUN 19 CREATININE S/P/B 1.31(A) 0.7 - 1.3 EGFR AFR. AMER. 70 EGFR NON-AFR. AMER. 60 <=90 ALKALINE PHOSPHATASE S/P/B 60 ALT 30 AST 18 BILIRUBIN TOTAL S/P/B 0.4 ALBUMIN S/P/B 4.7 3.5 - 5.0 TOTAL PROTEIN S/P/B 7.6 GLOBULIN 2.9 06/04/2017 us Doc [facility] Final Result * THYROXINE, FREE (FT4) (06/04/2017) FREE T4 1.02 06/04/2017 us Doc [facility] Final Result * THYROID STIM HORMONE, TSH (06/04/2017) TSH 1.350 06/04/2017 us Doc [facility] Final Result documented in this encounter Visit Diagnoses Not on filedocumented in this encounter Additional Health Concerns Infection Onset Date Last Indicated Resolved Time MRSA 03/09/2017 03/09/2017 10/05/2018 12:4 0 PM TOOLING SUPERVISOR documented as of this encounter Care Teams Sample Color Maker Relationship Specialty Start Date End Date Kulwant Felix MD [address] [address] PCP - General 03/17/17 08/02/17 Annie Chavez MD [address] [address] PCP - General FAMILY PRACTICE 08/03/17 05/03/18 Ramandeep Ann FNP [address] [address] PCP - General NURSE PRACTITIONER 05/04/18 10/31/18 Dina Cloud PA-C [address] [place] [address] PCP - General NURSE PRACTITIONER 05/19/19 Joseph Ann MD [facility]. [address] [place] [address] [employer] Consultant CARDIOVASCULAR DISEASE 01/02/16 Chai Junior MD [facility]. [address] [place], [place] [phone] EP Information Technology Consultant CARDIOVASCULAR DISEASE 09/03/16 documented as of this encounter
--- OUTSIDE RECORDS SUMMARY | 2024-09-16 11:56 | XMS_ITS | Encounter Summary ---
Author Organization [facility] Address [facility] [place] [address] Care Team Providers Care Field Radio Operator Name Role Phone Joseph Ann MD Unavailable [phone] Chai Junior MD Unavailable Dina Cloud PA-C Primary Care Provider [phone] Encounter Details Date Type Department Care Team (Late st Contact Info) Description 08/12/2019 [facility] at [address] [address] Baudilio Sewell MA Social History Tobacco Use Types Packs/Day Years Used Date Smoking Tobacco: Former Cigarettes 1 35 1 - 05/2019 Smokeless Tobacco: Never Comments:smokes 4-5 cigarett es per day for 35+ years Alcohol Use Standard Drinks/Week Comments Yes 0 [...] on file documented as of this encounter Plan of Treatment Not on file documented as of this encounter Procedures Procedure Name Priority Date/Time Associated Diagnosis Comments CBC (OUTSIDE LAB) Routine 02/22/2019 FOLATE (OUTSIDE LAB) Routine 02/21/2019 TSH (OUTSIDE LAB) Routine 02/21/2019 VITAMIN B-12 Routine 02/21/2019 BASIC METABOLIC PANEL Routine 02/21/2019 HEPATIC FUNCTION PANEL Routine 02/21/2019 HEMOGLOBIN, GLYCOSYLATED Routine 02/21/2019 PROTIME (OUTSIDE LAB) Routine 02/20/2019 LIPID PANEL Routine 02/20/2019 documented in this encounter Results * CBC (OUTSIDE LAB) (02/22/2019) WBC 7.6 4.5 - 10.0 HGB 10.9 14.0 - 18.0 HCT 32.2 42.0 - 52.0 PLT 219 150 - 375 02/22/2019 us [facility]-OUTSIDE/ABSTRACTED Final Result * HEMOGLOBIN, GLYCOSYLATED (02/21/2019) HGB A1C 6.1 <5.7 02/21/2019 us Doc [facility]AT[facility] Final Result * TSH (OUTSIDE LAB) (02/21/2019) TSH 0.618 0.465 - 4.68 02/21/2019 us Doc [facility]-OUTSIDE/ABSTRACTED Edite d Result - Final * HEPATIC FUNCTION PANEL (02/21/2019) ALBUMIN S/P/B 3.5 3.5 - 5.0 ALKALINE PHOSPHATASE S/P/B 35 38 - 126 ALT 34 21 - 72 AST 21 17 - 59 BILIRUBIN TOTAL S/P/B 0.2 0.2 - 1.3 TOTAL PROTEIN S/P/B 6.0 6.3 - 8.2 02/21/2019 [facility] Edited Resul t - Final * BASIC METABOLIC PANEL (02/21/2019) Pathologist [facility] SODIUM S/P/B 134 137 - 145 POTASSIUM S/P/B 4.3 3.4 - 5.0 CO2 26 22 - 30 CHLORIDE S/P/B 101 98 - 107 GLUCOSE 116 75 - 110 mg/dL CALCIUM S/P/B 9.3 8.4 - 10.2 BUN 12 9 - 20 CREATININE S/P/B 1.20 0.7 - 1.3 EGFR NON-AFR. AMER. >60 <=90 02/21/2019 us Doc [facility] Final Result * VITAMIN B-12 (02/21/2019) Pathologist [facility] VITAMIN B12 S/P/B 470 239 - 931 02/21/2019 us Doc [facility] Final Result * FOLATE (OUTSIDE LAB) (02/21/2019) Pathologist [facility] FOLATE >20.0 02/21/2019 us Doc [facility]-OUTSIDE/ABSTRACTED Final Result * LIPID PANEL (02/20/2019) Pathologist [facility] CHOLESTEROL 129 0 - 200 HDL 27 TRIGLYCERIDES 241 <150 LDL (CALCULATED) 79 02/20/2019 us Doc [facility] Final Result * PROTIME (OUTSIDE LAB) (02/20/2019) Pathologist [facility] PROTIME 13.1 INR 1.0 02/20/2019 us Doc [facility]-OUTSIDE/ABSTRACTED Final Result documented in this encounter Visit Diagnoses Not on filedocumented in this encounter Care Teams Field Radio Operator Relationship Specialty Start Date End Date Dina Cloud PA-C [address] [place] [id number] PCP - General NURSE PRACTITIONER 05/19/19 Joseph [facility] MD [facility] [address] [place] [address] [employer]er Applications Support Analyst CARDIOVASCULAR DISEASE 01/02/16 Chai Junior MD [facility] [address] [place] [address] EP Applications Support Analyst CARDIOVASCULAR DISEASE 09/03/16 documented as of this encounter
--- OUTSIDE RECORDS SUMMARY | 2024-09-16 11:56 | XMS_ITS | Encounter Summary ---
Author Organization [facility] Address [facility] [place] [address] Care Team Providers Care Operations Systems Specialist Name Role Phone Joseph Ann MD Unavailable [phone] Chai Junior MD Unavailable Dina Cloud PA-C Primary Care Provider [phone] Encounter Details Date Type Department Care Team (Late st Contact Info) Description 08/27/2020 Hithru Message Enc [facility] [address] [address] [place], [facility] Provider Missed Carelink Transmission Social History Tobacco Use Types Packs/Day Years Used Date Smoking Tobacco: Every Day Cigarettes 0.5 35 Smokeless Tobacco: Never Alcohol Use Standard Drinks/Week Comments Yes 0 [...] on file documented as of this encounter Visit Diagnoses Not on filedocumented in this encounter Care Teams Operations Systems Specialist Relationship Specialty Start Date End Date Dina Cloud PA-C [address] [place] [address] PCP - General NURSE PRACTITIONER 05/19/19 Joseph Ann MD [address] [place] [address] [place] Extractor Plant Operator CARDIOVASCULAR DISEASE 01/02/16 Chai Junior MD [address] [place] [address] EP Extractor Plant Operator CARDIOVASCULAR DISEASE 09/03/16 documented as of this encounter
--- OUTSIDE RECORDS SUMMARY | 2024-09-16 11:56 | XMS_ITS | Encounter Summary ---
Author Organization [facility] Address [facility] [place] [address] Care Team Providers Care Keypuncher Name Role Phone Joseph Ann MD Unavailable [phone] Chai Junior MD Unavailable Dina Cloud PA-C Primary Care Provider [phone] Encounter Details Date Type Department Care Team (Late st Contact Info) Description 10/01/2020 State Message Enc [facility] [address] [facility] Provider Missed or Cancelled Appointment Social History Tobacco Use Types Packs/Day Years [...] on filedocumented in this encounter Care Teams Keypuncher Relationship Specialty Start Date End Date Dina Cloud PA-C [address] [place] [id number] PCP - General NURSE PRACTITIONER 05/19/19 Joseph Ann MD [address] [place] [address] Sterrett Print Journalist CARDIOVASCULAR DISEASE 01/02/16 Chai Junior MD [address] [place] [address] EP Print Journalist CARDIOVASCULAR DISEASE 09/03/16 documented as of this encounter
--- OUTSIDE RECORDS SUMMARY | 2024-09-16 11:56 | XMS_ITS | Encounter Summary ---
Author Organization [facility] Address [facility] [place] [address] Care Team Providers Care Lead Systems Architect Name Role Phone Joseph Ann MD Unavailable [phone] Chai Junior MD Unavailable Dina Cloud PA-C Primary Care Provider [phone] Encounter Details Date Type Department Care Team (Late st Contact Info) Description 07/20/2020 bizHive Message Enc [facility] [address] [address] [employer], [facility] Provider Missed Carelink Transmission Social History Tobacco [...] file Not on file Not on file COVID-19 Exposure Response Date Recorded In the last month, have you been in contact with someone who was confirmed or suspected to have Coronavirus / COVID-19? No / Unsure 07/17/2020 11:50 AM MOTION PICTURE PROJECTIONIST APPRENTICE documented as of this encounter Plan of Treatment Not on file documented as of this encounter Visit Diagnoses Not on filedocumented in this encounter Care Teams Lead Systems Architect Relationship Specialty Start Date End Date Dina Cloud PA-C [facility] [place] [address] PCP - General NURSE PRACTITIONER 05/19/19 Joseph Ann MD [facility]. [address] [place] [address] Penn Laird Insurance Processing Clerk CARDIOVASCULAR DISEASE 01/02/16 Chai Junior MD [facility]. [address] [place], [place] [address] EP Insurance Processing Clerk CARDIOVASCULAR DISEASE 09/03/16 documented as of this encounter
--- OUTSIDE RECORDS SUMMARY | 2024-09-16 11:56 | XMS_ITS | Referral Summary ---
Author Organization [facility] Address [address] [facility] [place] [address] Care Team Providers Care Bullard Machine Operator Name Role Phone Dina Cloud PA-C Primary Care Provider Source Comments [facility],non-owned Affiliates and Associated Physician Practices is amultiple site organization consisting of ambulatory clinics and hospital sitesin [place], [place], [place] and [place]. This disclosure is being madepursuant to the Care Everywhere program and may not contain all information available regarding this patient. Last updated 18.[facility] Encounters Date Type Department Care Team Description 09/13/2024 Orders Only [facility] - Nephrology [address] [facility], [place] [address] Nataliia Cooper MD Hypercalcemia 09/13/2024 Refill [facility] - Neurology [address] [facility], [place] [address] Meredith Weiss MD Refill Request 09/08/2024 Travel 09/08/2024 8:15 AM MARKETING CLERK Office Visit [facility] - Urology [address] [place] [address] Rd [address] [place] [phone] Josy Davila DO Pain in left testicle (Primary Dx); S/P TURP; Urinary frequency; Dysuria; Pain in both testicles 09/01/2024 10:31 AM MARKETING CLERK - 09/01/2024 11:59 PM MARKETING CLERK Hospital Encounter [facility] [address] [place] [address] Nataliia Cooper MD Discharge Disposition: Home or Self Care 09/01/2024 Travel 09/01/2024 8:45 AM MARKETING CLERK - 09/01/2024 10:30 AM MARKETING CLERK Hospital Encounter [facility] [address] [place] [address] Nataliia Cooper MD Discharge Disposition: Home or Self Care 09/01/2024 9:30 AM MARKETING CLERK Office Visit [facility] - Nephrology [address] [place] [phone] Nataliia Cooper MD Stage 3 chronic kidney disease, unspecified whether stage 3a or 3b CKD (HCC) (Primary Dx) 08/26/2024 Travel 08/26/2024 9:10 AM MARKETING CLERK Office Visit [facility] - Dermatology [address] [place] [phone] Robb Howell MD 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 (Primary Dx) 08/17/2024 Travel 08/17/2024 10:50 AM MARKETING CLERK Office Visit [facility] - General Dermatology [facility] , [facility] [address] [place] [phone] Robb Howell MD Melanocytic nevi of trunk (Primary Dx); [place] angioma; Seborrheic keratoses; Lentigines; Actinic keratosis; History of squamous cell carcinoma of skin; Neoplasm of uncertain behavior of skin; 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 07/19/2024 Travel 07/19/2024 8:20 AM MARKETING CLERK Office Visit [facility] - Cardiology [address] [facility], [facility] [address] [place] [phone] Daily Bravo MD SSS (sick sinus syndrome) (HCC) (Primary Dx); Hypertriglyceridemia 06/29/2024 Refill [facility]rology [address] [facility], [place] [address] Josy Davila, DO Refill Request 06/21/2024 Travel 06/16/2024 Travel 06/16/2024 2:00 PM MARKETING CLERK Office Visit [facility] - Pulmonology [address] [place] [phone] Becca Ford MD Dyspnea on exertion (Primary Dx); Nicotine dependence, cigarettes, uncomplicated; AGNIESZKA (obstructive sleep apnea); Tobacco abuse; Immunization counseling from Last 3 Months Allergies Active Allergy Reactions Criticality Noted Date Comments Penicillins Other Low 06/18/2017 Pt is unsure of the reaction was told by one of his doctors Medications * Be aware that medications may not be up to date on this document. Alwaysverify current medications with the patient. Medication Sig Dispensed Refills Start Date End Date Status folic acid (FOLVITE) 1 MG tablet Take by mouth DAILY. 07/20/20 17 Active atorvastatin (LIPITOR) 80 MG tablet Take 1 (one) tablet by mouth once daily 05/26/20 17 Active vitamin D, ergocalciferol, (DRISDOL) 1.25 MG (96410 UT) capsule Take 1 (one) capsule by mouth 06/27/20 20 Active clopidogrel (PLAVIX) 75 MG tablet Take 1 (one) tablet by mouth once daily Active ketoconazole (NIZORAL) 2 % cream 02/19/20 21 Active Blood Glucose Monitoring Suppl (ACCU-CHEK MATA CONNECT) w/Device KIT Active Insulin Syringes, Disposable, (B-D INSULIN SYRINGE 1CC) U-100 1 ML MISC insulin syringe U-100 with needle 0.5 mL 31 gauge x 12/16 USE QID WITH LANTUS AND HUMALOG Active aspirin (ASPIRIN) 81 MG chew tablet aspirin 81 mg chewable tablet CHEW 1 T PO Q DAY Active metoprolol succinate XL 24hr (TOPROL XL) 25 MG tablet Take 1 (one) tablet by mouth once daily 10/08/19 22 Active ONETOUCH ULTRA test strip Use 3 times daily 200 strip 4 11/20/19 22 Active ammonium lactate (LAC-HYDRIN) 12 % lotion 12/08/19 21 Active famotidine (Pepcid) 20 MG tablet Take 1 (one) tablet by mouth 2 times daily 08/25/19 23 Active hydroxyurea (Hydrea) 500 MG capsule Take 1 (one) capsule by mouth once daily 08/22/19 23 Active levETIRAcetam (Keppra) 250 MG tablet Take 1 (one) tablet by mouth 2 times daily Active lisinopril (Prinivil; Zestril) 20 MG tablet Take 1 (one) tablet by mouth once daily 12/03/19 23 Active cyanocobalamin (Vitamin B-12) 1000 MCG tablet Take 1 (one) tablet by mouth once daily 180 tablet 1 12/31/19 23 Active ONETOUCH DELICA PLUS 30G FINE LANCETSIndication s:Type 2 diabetes mellitus with other circulatory complication, with long-term current use of insulin (HCC) Inject 1 Each subcutaneously 3 times daily 200 Each 5 01/09/20 23 Active Continuous Blood Gluc Engine Service Repairer (Dexcom G7 Engine Service Repairer) DEVIIndications:T ype 2 diabetes mellitus without complication, unspecified whether extermination supervisor insulin use (HCC) Use 1 kit as directed 1 Each 01/30/20 23 Active albuterol HFA (ProAir HFA) 108 (90 Base) MCG/ACT inhaler Inhale 2 (two) puffs by mouth every 4 hours as needed 8.5 g 5 06/18/20 23 Active Spacer/Aero-Holdi ng Chambers (AeroChamber) Inhale by mouth as directed 1 Each 5 06/18/20 23 Active HYDROcodone-aceta minophen ([place]) 10-325 MG tablet Take 1 (one) tablet by mouth every 6 hours as needed pain 09/04/19 24 Active insulin glargine (Lantus/Semglee) 100 units/mL pen Inject 36 (thirty six) Units subcutaneously at bedtime 15 mL 11 10/05/19 24 Active insulin lispro (HumaLOG KwikPen) 100 UNIT/ML pen Inject 12 (twelve) Units to 18 (eighteen) Units subcutaneously 3 times daily before meals 12 with small, 15u with regular meal, 18u with heavy carbs meal, daily max 50 untits 15 mL 11 10/05/19 24 Active insulin pen needle (Novofine 31) 31G X 5 MM needleIndications :Type 2 diabetes mellitus with other circulatory complication, with long-term current use of insulin (HCC) 1 (one) Each 4 times daily 200 Each 10/05/19 24 Active Continuous Blood Gluc Sensor (Dexcom G7 Sensor) MISCIndications:T ype 2 diabetes mellitus without complication, unspecified whether fci insulin use (HCC) Use 1 Each every 10 days 3 Each 10/05/19 24 Active dulaglutide (Trulicity) 3 MG/0.5ML injection Inject 3 (three) mg subcutaneously every 7 days 3 mL 10/05/19 24 Active empagliflozin (Jardiance) 10 MG tablet Take 1 (one) tablet by mouth once daily 30 tablet 10/05/19 24 Active evolocumab (Repatha) 140 MG/ML prefilled syringe Inject 140 (one hundred forty) mg subcutaneously every 14 days 6 mL 03/16/20 24 Active buPROPion SR 12hr (Zyban) 150 MG tabletIndications :Nicotine dependence, cigarettes, uncomplicated Take 1 (one) tablet by mouth 2 times daily 60 tablet 5 06/16/20 24 Active Vascepa 1 g capsuleIndication s:Hypertriglyceri demia Take 1 (one) capsule by mouth 2 times daily with morning and evening meal 180 capsule 4 07/19/20 24 Active oxyBUTYnin CR 24hr (Ditropan XL) 15 MG tablet Take 1 (one) tablet by mouth once daily 90 tablet 3 09/08/19 25 026 Active sildenafil (Viagra) 100 MG tabletIndications :Erectile Dysfunction Take 1 (one) tablet by mouth once daily as needed (sex) Reasons: Erectile Dysfunction 30 tablet 09/08/19 25 Active tamsulosin (Flomax) 0.4 MG capsuleIndication s:S/P TURP,Urinary frequency Take 1 (one) capsule by mouth once daily 90 capsule 4 09/08/19 25 Active amitriptyline (Elavil) 100 MG tablet Take 1 (one) tablet by mouth once daily 90 tablet 3 09/08/19 25 026 Active gabapentin (Neurontin) 600 MG tabletIndications :Neuropathy TAKE 1.5 TABLETS BY MOUTH IN THE MORNING AND AT NOON AND TAKE 2 TABLETS EVERY EVENING 150 tablet 4 09/13/19 25 Active HYDROcodone-aceta minophen (NORCO) 5-325 MG tablet Take 2 (two) tablets by mouth every 6 hours as needed 04/03/20 21 025 Discontinued(Li st Clean-Up) amitriptyline (Elavil) 100 MG tablet Take 1 (one) tablet by mouth once daily 05/12/20 22 025 Discontinued(Re order) lidocaine (Lidoderm) 5 % patchIndications: Neuropathy Apply 1 (one) patch to skin once daily Apply patch to most painful area and remove after 12 hours. May reapply a new patch 12 hours later. 30 patch 06/03/20 22 025 Discontinued(Li st Clean-Up) sildenafil (Viagra) 100 MG tablet TAKE 1 TABLET BY MOUTH DIRECTED 1 HOUR PRIOR TO INTERCOURSE 30 tablet 08/11/19 23 025 Discontinued(Re order) nicotine (Nicoderm CQ) 21 MG/24HR patchIndications: Tobacco abuse Apply 1 (one) patch to skin once daily 30 patch 6 03/12/20 23 025 Discontinued(Li st Clean-Up) gabapentin (Neurontin) 600 MG tabletIndications :Neuropathy Patient to take one and a half tablets (900 mg) in the morning and at noon and two tablets (1200 mg) in the evening 150 tablet 4 05/19/20 24 025 Discontinued oxyBUTYnin CR 24hr (Ditropan XL) 15 MG tablet Take 1 (one) tablet by mouth once daily 30 tablet 5 06/13/20 24 025 Discontinued(Re order) tamsulosin (Flomax) 0.4 MG capsuleIndication s:S/P TURP,Urinary frequency TAKE ONE CAPSULE BY MOUTH EVERY DAY 90 capsule 4 06/29/20 24 025 Discontinued(Re order) Active Problems Problem Noted Date Diagnosed Date Actinic keratosis 01/29/2024 History of nonmelanoma skin cancer 01/29/2024 Neuropathy 01/13/2024 Tobacco use disorder 07/03/2023 Sleep apnea 07/03/2023 Hypercalcemia 01/29/2023 Degeneration of lumbar intervertebral disc 12/0207/16/2023 Hypertriglyceridemia 10/07/2021 Assessment & Plan (10/07/2021 12:23 PM MARKETING CLERK): Triglycerides remain elevated in the setting of uncontrolled DM. Pt has follow up with PCP later this week and Endocrinology in November. Start Vascepa 1 tab po BID. Mixed hyperlipidemia 10/07/2021 Assessment & Plan (10/07/2021 12:24 PM MARKETING CLERK): LDL 28, HDL 29. Continue Repatha and Lipitor 80mg daily. FLP prior to follow up in 3 months. HTN (hypertension) 10/07/2021 Assessment & Plan (10/07/2021 12:27 PM MARKETING CLERK): SBP uncontrolled in clinic today. Did not take his medications prior to this apportionment. Continue lisinopril 20mg daily. SBP on 09/13 149/79. Neoplasm of uncertain behavior of skin Epidermal inclusion cyst 09/27/2021 Solar lentiginosis 09/27/2021 Melanocytic nevi of trunk 09/27/2021 Lipoma of torso 09/27/2021 Cardiac pacemaker in situ 07/04/2021 Assessment & Plan (10/07/2021 12:39 PM MARKETING CLERK): Medtronic PPM, functioning well. See device report from today. Transferred care to our clinic, remotes scheduled. Anemia 03/24/2019 07/16/2023 Myeloproliferative disease 08/26/2018 PAD (peripheral artery disease) 06/02/2018 Occlusion and stenosis of right carotid artery 1 09/23/2016 Immunizations Name Administration Dates Next Due U.S. Silica 12+YR 30MCG/0.3mL 05/13/2023 FLU, HISTORIC VACCINE 05/06/2023 INFLUENZA VACCINE 06/02/2022,05/17/2019,04/29/20 18 INFLUENZA VACCINE, QUADR. (F LUZONE; FLULAVAL; FLUARIX; AFLURIA QUADRIVALENT; 6MO+), 0.5 ML (IIV4) 05/17/2021 PNEUMOCOCCAL PCV20 CONJ VAC IM 06/17/2023 Social History Tobacco Use Types Packs/Day Years Used Date Smoking Tobacco: Every Day Cigarettes 1 51.1 Started: 1972 Smokeless Tobacco: Never Tobacco Cessation:Ready to Q uit: Not Asked; Counseling Given: Not Answered Comments:06/25 1/2 ppd Alcohol Use Standard Drinks/Week Comments Not Currently 0 (1 standard drink = 0.6 oz pur e alcohol) maybe couple beer/month PHQ-2 Answer Date Recorded PHQ2 TOTAL SCORE 0 09/29/2022 Education Answer Date Recorded What is the highest level of school you have completed or the highest degree you have received? GED or equivalent Sex and Gender Information Value Date Recorded Sex Assigned at Not on file Gender Identity Not on file Sexual Orientation Not on file Last Filed Vital Signs Vital Sign Reading Time Taken Comments Blood Pressure 164/83 09/08/2024 7:55 AM MARKETING CLERK Pulse 94 09/08/2024 7:55 AM MARKETING CLERK Temperature 36.7 C (98 F) 09/08/2024 7:55 AM MARKETING CLERK Respiratory Rate 17 06/16/2024 1:59 PM MARKETING CLERK Oxygen Saturation 95% 09/08/2024 7:55 AM MARKETING CLERK Inhaled Oxygen Concentration - - Weight 103.1 kg (227 lb 6.4 oz) 09/08/2024 7:55 AM MARKETING CLERK Height 175.3 cm (5' 9 ) 09/08/2024 7:55 AM MARKETING CLERK Body Mass Index 33.58 09/08/2024 7:55 AM MARKETING CLERK Plan of Treatment Upcoming Encounters Date Type Department Care Team (Late st Contact Info) Description 09/20/2024 9:30 AM MARKETING CLERK Office Visit [facility] - Neurology [address] [place] [phone] Meredith Weiss MD [address] [place] [address] [place] [address] 10/18/2024 1:00 AM CDT Clinical Support [facility] - Cardiology [address] [place] [phone] 10/25/2024 9:00 AM CDT [facility] [address] [place] [phone] Daily Bravo MD [address] [place] [address] 11/08/2024 3:40 PM CDT Office Visit [facility] - Endocrinology [address] [place] [address], [place] [address] Garry Tracey MD [address] [place] [address] 2[address] [place] [address] 12/15/2024 2:00 PM CDT Office Visit [facility] - Pulmonology [address] [place] [address], [place] [address] Becca Ford MD [address] [place] [address] 2L DIV [place] [address] 01/17/2025 1:10 AM CDT Clinical Support [facility] - Cardiology [address] [place] [phone] 02/24/2025 9:10 AM CDT Office [facility] Dermat[facility] [address] [place] [address], [place] [address] Robb Howell MD [address] [place] [address] [address] [place] [address] 03/02/2025 9:00 AM CDT Office Visit [facility] - Nephrology [address] [place] [phone] Nataliia Cooper MD [address] [place] [address] 3L [place] [address] 04/18/2025 1:10 AM CDT Clinical Support [facility] [address] [place] [phone] 07/18/2025 1:10 AM MARKETING CLERK Clinical Support [facility] - Cardiology [address] [place] [address], [address] [phone] Goals Goal Patient Goal Type Associated Problems Recent Progress Patient-Stated? Author Medication Management General On track( 025 10:03 AM MARKETING CLERK) Ketty Candelario, MAIN Note: Expected end date: on going Interventions: Take all medications as prescribed Let your doctor know right away about any changes in your medications Make sure to request a refill of your medication at least one week prior to your last dose Procedures Procedure Name Priority Date/Time Associated Diagnosis Comments URINE MICROSCOPIC ONLY REFLEX TO CULTURE Routine 09/01/2024 11:37 AM MARKETING CLERK Stage 3 chronic kidney disease, unspecified whether stage 3a or 3b CKD (HCC) MICROALB/CREAT RATIO URINE RANDOM PANEL Routine 09/01/2024 11:37 AM MARKETING CLERK Stage 3 chronic kidney disease, unspecified whether stage 3a or 3b CKD (HCC) URINALYSIS REFLEX MICROSCOPIC REFLEX CULTURE Routine 09/01/2024 11:37 AM MARKETING CLERK Stage 3 chronic kidney disease, unspecified whether stage 3a or 3b CKD (HCC) VITAMIN D 25-HYDROXY Routine 09/01/2024 11:07 AM MARKETING CLERK Stage 3 chronic kidney disease, unspecified whether stage 3a or 3b CKD (HCC) PTH INTACT W/O CALCIUM Routine 11:07 AM MARKETING CLERK Stage 3 chronic kidney disease, unspecified whether stage 3a or 3b CKD (HCC) HEMOGLOBIN A1C Routine 09/01/2024 11:07 AM MARKETING CLERK Stage 3 chronic kidney disease, unspecified whether stage 3a or 3b CKD (HCC) URIC ACID BLOOD Routine 09/01/2024 11:07 AM MARKETING CLERK Stage 3 chronic kidney disease, unspecified whether stage 3a or 3b CKD (HCC) RENAL FUNCTION PANEL Routine 09/01/2024 11:07 AM MARKETING CLERK Stage 3 chronic kidney disease, unspecified whether stage 3a or 3b CKD (HCC) CBC W AUTO DIFFERENTIAL Routine 09/01/19 25 11:07 AM MARKETING CLERK Stage 3 chronic kidney disease, unspecified whether stage 3a or 3b CKD (HCC) US RETROPERITONEAL COMPLETE Routine 09/01/2024 9:37 AM MARKETING CLERK Stage 3 chronic kidney disease, unspecified whether stage 3a or 3b CKD (HCC) PA DESTR MALIG TRUNK,EXTREM 0.6-1 CM Routine 08/26/2024 9:26 AM MARKETING CLERK 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 PA DESTR MALIG TRUNK,EXTREM 0.6-1 CM Routine 08/17/2024 12:25 PM MARKETING CLERK 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 PA DESTROY PREMALIG LESION, 1ST LESION Routine 08/17/2024 12:25 PM MARKETING CLERK Actinic keratosis PA TANGNTL BX SKIN SINGLE LES Routine 08/17/2024 12:24 PM MARKETING CLERK Neoplasm of uncertain behavior of skin DERMATOPATHOLOGY Routine 08/17/2024 3:33 AM MARKETING CLERK Neoplasm of uncertain behavior of skin CARDIAC PROCEDURE ORDER 07/26/2024 PA PM DEVICE PROGR EVAL DUAL Routine 07/19/2024 8:47 AM MARKETING CLERK SSS (sick sinus syndrome) (HCC) EKG 12-LEAD Routine 07/19/2024 8:11 AM MARKETING CLERK SSS (sick sinus syndrome) (HCC) CARDIAC PROCEDURE ORDER 07/19/2024 CT LUNG SCREEN LOW DOSE Routine 06/14/20 1:47 PM MARKETING CLERK Nicotine dependence, cigarettes, uncomplicated from Last 3 Months or Most Recently Relevant to Health Maintenance Results * (ABNORMAL) URINE MICROSCOPIC ONLY REFLEX TO CULTURE (09/01/2024 11:37 AM MARKETING CLERK) Reflex Status Culture not indicated 09/01/2024 12:36 PM [facility] WBC UA 0-5 None Seen, 0-5 /HPF 09/01/2024 12:36 PM [facility] Squamous Epithelial Cells UA 0-2 None Seen, 0-2, 3-5 /HPF 09/01/2024 12:36 PM [facility] Mucus UA 1+ /LPF 09/01/2024 12:36 PM [facility] Hyaline Casts UA 3-5(A) None Seen, 0-2 /LPF 09/01/2024 12:36 PM [facility] Urine URINE SPECIMEN OBTAINED BY CLEAN CATCH PROCEDURE / Unknown Collection / Unknown 09/01/2024 11:37 AM MARKETING CLERK 09/01/2024 12:05 PM [facility] - 09/01/2024 12:36 PM MARKETING CLERK Nataliia Cooper MD LAB - URINALYSIS ORD ERABLES [facility] [address] [place] [phone], [facility] [phone] * (ABNORMAL) URINALYSIS REFLEX MICROSCOPIC REFLEX CULTURE (09/01/2024 11:37 AM MARKETING CLERK) Color UA Yellow Straw, Yellow 09/01/2024 12:13 PM [facility] Clarity UA Slt Cloudy(A) Clear 09/01/2024 12:13 PM [facility] Specific [place] UA 1.026 1.005 - 1.030 09/01/2024 12:13 PM [facility] pH UA 5.0 5.0 - 8.0 pH 09/01/2024 12:13 PM [facility] Protein UA 2+(A) Negative 09/01/2024 12:13 PM [facility] Glucose UA 3+(A) Negative 09/01/2024 12:13 PM [facility] Ketone UA Negative Negative 09/01/2024 12:13 PM [facility] Bilirubin UA Negative Negative 09/01/2024 12:13 PM [facility] Blood UA Negative Negative 09/01/2024 12:13 PM [facility] Nitrite UA Negative Negative 09/01/2024 12:13 PM [facility] Leukocyte Esterase Negative Negative 09/01/2024 12:13 PM [facility] Urobilinogen UA Negative Negative mg/dL 09/01/2024 12:13 PM [facility] Urine URINE SPECIMEN OBTAINED BY CLEAN CATCH PROCEDURE / Unknown Collection / Unknown 09/01/2024 11:37 AM MARKETING CLERK 09/01/2024 12:05 PM MARKETING CLERK Narrative [facility] - 09/01/2024 12:13 PM MARKETING CLERK Nataliia Cooper MD LAB - URINALYSIS ORD ERABLES Performing Organization Address City/[facility]/ZIP Co de Phone Number [address] [address], [facility] [phone] * (ABNORMAL) MICROALB/CREAT RATIO URINE RANDOM PANEL (09/01/2024 11:37 AM MARKETING CLERK) Albumin Random Urine 755.4 Not Established ug/mL 09/01/2024 12:59 PM [facility] Comment:Result obtained by julio barrett. Creatinine Urine 161.04 Not Established mg/dL 09/01/2024 12:59 PM [facility] Urine Albumin/Creati nine Ratio 469(H) <30 mg/g 09/01/2024 12:59 PM [facility] Urine URINE SPECIMEN OBTAINED BY CLEAN CATCH PROCEDURE / Unknown Collection / Unknown 09/01/2024 11:37 AM MARKETING CLERK 09/01/2024 12:10 PM MARKETING CLERK Nataliia Cooper MD LAB - URINE CHEMISTR Y ORDERABLES Performing Organization Address City/[facility]/ZIP Co de Phone Number [address] [address], [place] [phone] * (ABNORMAL) PTH INTACT W/O CALCIUM (09/01/2024 11:07 AM MARKETING CLERK) PTH Intact 203.7(H) 8.0 - 77.0 pg/mL 09/01/2024 12:15 PM [facility] Blood BLOOD SPECIMEN / Unknown Lab Venipuncture / Unknown 09/01/2024 11:07 AM MARKETING CLERK 09/01/2024 11:42 AM MARKETING CLERK Nataliia Cooper MD LAB - CHEMISTRY SERENA PAGE Performing Organization Address City/[facility]/ZIP Co de Phone Number [address] [address], [facility] [phone] * (ABNORMAL) URIC ACID BLOOD (09/01/2024 11:07 AM MARKETING CLERK) Uric Acid 7.3(H) 3.5 - 7.2 mg/dL 09/01/2024 12:14 PM [facility] Blood BLOOD SPECIMEN / Unknown Lab Venipuncture / Unknown 09/01/2024 11:07 AM MARKETING CLERK 09/01/2024 11:42 AM MARKETING CLERK Nataliia Cooper MD LAB - CHEMISTRY SERENA PAGE Performing Organization Address [facility] Co de Phone Number [address] [address], [facility] [phone] * (ABNORMAL) HEMOGLOBIN A1C (09/01/2024 11:07 AM MARKETING CLERK) Hemoglobin A1c 7.7(H) <=5.6 % 09/01/2024 1:10 PM [facility] Estimated Average Glucose 174 mg/dL 09/01/2024 1:10 PM [facility] Comment: HbA1c Interpretation: Normal : < 5.7% Pre-diabetes: 5.7-6.4% Diabetes: Equal to or greater than 6.5% Test results diagnostic of diabetes should be repeated for confirmation. Treatment target values recommended by ADA and other clinical organizations should be used to evaluate metabolic control in patients. Reference: [place] [employer], Standards of Care in Diabetes -2020 In patients 70 years and older consider HbA1c target range of 7.0-7.5% (Reference: Vickey Moser et al. JAMDA. 2012) The Sebia assay for the measurement of HbA1c is a National Glycohemoglobin Standardization Program (NGSP) certified method. Blood BLOOD SPECIMEN / Unknown Lab Venipuncture / Unknown 09/01/2024 11:07 AM MARKETING CLERK 09/01/2024 11:42 AM MARKETING CLERK Nataliia Cooper MD LAB - CHEMISTRY SERENA PAGE Performing Organization Address City/[facility]/ZIP Co de Phone Number [address] [address], [facility] [phone] * VITAMIN D 25-HYDROXY (09/01/2024 11:07 AM MARKETING CLERK) Pathologist [facility] Vitamin D, 25 Hydroxy 43.2 30.0 - 80.0 ng/mL 09/01/2024 12:32 PM MARKETING CLERK [facility] Comment: The recommendations for 25-Hydroxy Vitamin D clinical decision points are as follows: Deficient: <20.0 ng/mL Insufficient: 20.0 - 29.9 ng/mL Sufficient: 30.0 - 100.0 ng/mL Potential Toxicity: >100 ng/mL Reference: The Endocrine Society Clinical Practice Guidelines. 2011 If the 25-Hydroxy Vitamin D results are inconsitent with clinical evidence, it is recommended that follow-up testing using a method such as LC/MS/MS be performed to confirm the result. Blood BLOOD SPECIMEN / Unknown Lab Venipuncture / Unknown 09/01/2024 11:07 AM MARKETING CLERK 09/01/2024 11:42 AM MARKETING CLERK Nataliia Cooper MD LAB - CHEMISTRY SERENA PAGE Performing Organization Address City/[facility]/ZIP Co de Phone Number [address] [address], [facility] [phone] * (ABNORMAL) CBC WITH DIFFERENTIAL (09/01/2024 11:07 AM MARKETING CLERK) WBC 11.8(H) 4.0 - 10.7 x10E9/L 09/01/2024 11:56 AM [facility] RBC Count 4.20(L) 4.30 - 5.80 x10E12/L 09/01/2024 11:56 AM [facility] Hemoglobin 14.7 13.3 - 17.5 g/dL 09/01/2024 11:56 AM [facility] Hematocrit 44.0 38.7 - 51.1 % 09/01/2024 11:56 AM [facility] MCV 104.8(H) 80.0 - 98.0 fL 09/01/2024 11:56 AM [facility] MCH 35.0(H) 26.7 - 33.6 pg 09/01/2024 11:56 AM [facility] MCHC 33.4 31.7 - 36.3 g/dL 09/01/2024 11:56 AM [facility] RDW-CV 14.6 11.3 - 14.8 % 09/01/2024 11:56 AM [facility] Platelet Count 285 150 - 420 x10E9/L 09/01/2024 11:56 AM [facility] MPV 10.3 7.8 - 11.4 fL 09/01/2024 11:56 AM [facility] Neutrophil % 49.1 41.0 - 74.0 % 09/01/2024 11:56 AM [facility] Lymphocyte % 38.5 17.0 - 47.0 % 09/01/2024 11:56 AM [facility] Monocyte % 7.1 3.0 - 11.0 % 09/01/2024 11:56 AM [facility] Eosinophil % 4.0 0.0 - 7.0 % 09/01/2024 11:56 AM [facility] Basophil % 0.8 0.0 - 1.6 % 09/01/2024 11:56 AM [facility] Immature Granulocytes % 0.5 0.0 - 1.0 % 09/01/2024 11:56 AM [facility] Neutrophil Absolute 5.82 1.60 - 7.50 x10E9/L 09/01/2024 11:56 AM [facility] Lymphocyte Absolute 4.56(H) 1.00 - 4.40 x10E9/L 09/01/2024 11:56 AM [facility] Monocyte Absolute 0.84 0.15 - 1.00 x10E9/L 09/01/2024 11:56 AM [facility] Eosinophil Absolute 0.47 0.00 - 0.60 x10E9/L 09/01/2024 11:56 AM [facility] Basophil Absolute 0.09 0.00 - 0.13 x10E9/L 09/01/2024 11:56 AM [facility] Blood BLOOD SPECIMEN / Unknown Lab Venipuncture / Unknown 09/01/2024 11:07 AM MARKETING CLERK 09/01/2024 11:42 AM MARKETING CLERK Nataliia Cooper MD LAB - HEMATOLOGY ORD ERABLES Performing Organization Address City/[facility]/ZIP Co de Phone Number [facility] [address] [place] [phone] [phone] * (ABNORMAL) RENAL FUNCTION PANEL (09/01/2024 11:07 AM MARKETING CLERK) BUN 27(H) 7 - 26 mg/dL 09/01/2024 12:14 PM [facility] Creatinine 2.02(H) 0.71 - 1.16 mg/dL 09/01/2024 12:14 PM [facility] Sodium 141 136 - 145 mmol/L 09/01/2024 12:14 PM [facility] Potassium 4.6(H) 3.5 - 4.5 mmol/L 09/01/2024 12:14 PM [facility] Chloride 107 98 - 107 mmol/L 09/01/2024 12:14 PM [facility] CO2 27 22 - 29 mmol/L 09/01/2024 12:14 PM [facility] Glucose 154(H) 70 - 99 mg/dL 09/01/2024 12:14 PM [facility] Albumin 3.9 3.4 - 5.0 g/dL 09/01/2024 12:14 PM [facility] Calcium 11.3(H) 8.4 - 10.2 mg/dL 09/01/2024 12:14 PM [facility] Phosphorus 2.9 2.8 - 5.1 mg/dL 09/01/2024 12:14 PM [facility] Anion Gap 7 6 - 16 09/01/2024 12:14 PM [facility] BUN/Creatinine Ratio 13 7 - 23 09/01/2024 12:14 PM [facility] Osmolality Calculated 300(H) 275 - 295 mOsm/kg 09/01/2024 12:14 PM MARKETING CLERK [facility] eGFR by CKD-EPI 36(L) >=90 mL/min/1.7 3 m2 09/01/2024 12:14 PM MARKETING CLERK [facility] Blood BLOOD SPECIMEN / Unknown Lab Venipuncture / Unknown 09/01/2024 11:07 AM MARKETING CLERK 09/01/2024 11:42 AM MARKETING CLERK Nataliia Cooper MD LAB - CHEMISTRY SERENA PAGE [facility] [address] [place] [address], [facility] [phone] * US Retroperitoneal Complete (09/01/2024 9:37 AM MARKETING CLERK) Anatomical Region Laterality Modality Abdomen Ultrasound 09/01/2024 9:45 AM MARKETING CLERK Impressions 09/01/2024 9:50 AM MARKETING CLERK Impression: 1. Normal-sized kidneys with normal echogenicity. 2. No hydronephrosis or nephrolithiasis. > Interpreting Provider: Denae Grijalva MD on 09/01/2024 9:50 AM Narrative 09/01/2024 9:50 AM MARKETING CLERK PROCEDURE: US RETROPERITONEAL COMPLETE DATE/TIME OF EXAM: 09/01/2024 9:45 AM CLINICAL INFORMATION: None relevant/not provided if blank. Indication: N18.30: Stage 3 chronic kidney disease, unspecified whether stage 3a or 3b CKD (HCC) Additional History: COMPARISON: CT chest lung screening from 06/14/2024 Findings: Right kidney: 11.7 x 6.1 x 6.2 cm, volume: 230.2 cc Left kidney: 11.8 x 6.3 x 4.9 cm, volume: 190.2 cc The renal parenchymal echogenicity is normal. Tiny subcentimeter cysts are seen in bilateral kidneys, right kidney cyst measuring 0.9 cm. An approximately 1.3 cm echogenic lesion is seen in the left renal superior pole parenchyma, may represent an angiomyolipoma. No hydronephrosis, or calculi is present. There is bilateral perinephric fat stranding, nonspecific. Blood flow is seen within the renal arteries and veins. The bladder is within normal limits. Procedure Note Stephanie Grijalva MD - 09/01/2024 PROCEDURE: US RETROPERITONEAL COMPLETE DATE/TIME OF EXAM: 09/01/2024 9:45 AM CLINICAL INFORMATION: None relevant/not provided if blank. Indication: N18.30: Stage 3 chronic kidney disease, unspecified whether stage 3a or 3b CKD (HCC) Additional History: COMPARISON: CT chest lung screening from 06/14/2024 Findings: Right kidney: 11.7 x 6.1 x 6.2 cm, volume: 230.2 cc Left kidney: 11.8 x 6.3 x 4.9 cm, volume: 190.2 cc The renal parenchymal echogenicity is normal. Tiny subcentimeter cystsare seen in bilateral kidneys, right kidney cyst measuring 0.9 cm. An approximately 1.3 cm echogenic lesion is seen in the left renal superior pole parenchyma, may represent an angiomyolipoma. No hydronephrosis, or calculi is present. There is bilateral perinephric fat stranding, nonspecific. Blood flow is seen within the renal arteries and veins. The bladder is within normal limits. Impression: 1. Normal-sized kidneys with normal echogenicity. 2. No hydronephrosis or nephrolithiasis. > Interpreting Provider: Denae Grijalva MD on 09/01/2024 9:50 AM Nataliia Cooper MD US ORDERABLES * PA DESTR MALIG TRUNK,EXTREM 0.6-1 CM (08/26/2024 9:26 AM MARKETING CLERK) Narrative Robb Howell MD - 08/26/2024 9:26 AM MARKETING CLERK Amandeep Helton MD 08/26/2024 9:41 AM PROCEDURE: Cryotherapy and Curettage Patient was educated on purpose, risks/benefits and potential adverse effects, 100% chance of scar, statistics of cure, small chance of infection and recurrence. Informed consent obtained. A time out was performed immediatelyprior to the procedure: patient and provider/staff verbally confirmed correct patient, correct site, and correct procedure. 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 Anesthesia: Lidocaine 1% with epinephrine locally injected. Curettage was performed with 4 mm curette over entire lesion in three different directional axis' Cryotherapy was then performed to entire wound bed x 15 seconds. SIZE AFTER FIRST PASS: 1.0cm DRESSING: Plain Vaseline petroleum jelly and Band-Aid. Wound care instructions were given to the patient both orally and in writing. Patient tolerated the procedure well. Amandeep Helton MD [facility] Dermatology Resident Robb Howell MD PROCEDURE/MINOR SURG ICAL ORDERABLES * PA DESTR MALIG TRUNK,EXTREM 0.6-1 CM (08/17/2024 12:25 PM MARKETING CLERK) Narrative Robb Howell MD - 08/17/2024 12:25 PM MARKETING CLERK Guy Gómez MD 08/17/2024 12:26 PM PROCEDURE: Electrodessication and Curettage Risk of bleeding, scarring, infection, and recurrence were discussed with the patient. ATTENDING PHYSICIAN: Dr. Howell SURGEON: Dr. Gómez DIAGNOSIS: SCCIS LOCATION: R forearm SIZE OF LESION PRE-OP: 0.6 cm SIZE AFTER FIRST PASS: 0.8 cm ANESTHESIA: 1% lidocaine with epinephrine COMPLICATIONS: none Written informed consent was obtained after discussing risks including pain, bleeding, infection, recurrence and scarring. The site of previous biopsy was identified. This area was sterilely prepped with alcohol, which was allowed to dry completely, then locally infiltrated with 1% lidocaine with epinephrine. A 4 mm curette was used to remove tissue concerning for malignancy down to the dermis. Electrodessication was performed over the site and the cycle is repeated until the surgeon was comfortable reasonable margins have been achieved. Vaseline ointment and a clean dressing was applied. The patient tolerated the procedure well without complications. Verbal and written wound care instructions were given. Guy Gómez MD Dermatology Resident PGY-3 Robb Howell MD PROCEDURE/MINOR SURG ICAL ORDERABLES * PA DESTROY PREMALIG LESION, 1ST LESION (08/17/2024 12:25 PM MARKETING CLERK) Narrative Robb Howell MD - 08/17/2024 12:25 PM MARKETING CLERK Guy Gómez MD 08/17/2024 12:25 PM Diagnosis and treatment options discussed. Cryotherapy (Liquid Nitrogen) to 1 lesion for 4-6 seconds. Number of cycles: 1. Wound care reviewed. Robb Howell MD PROCEDURE/MINOR SURG ICAL ORDERABLES * PA TANGNTL BX SKIN SINGLE LES (08/17/2024 12:24 PM MARKETING CLERK) Narrative Robb Howell MD - 08/17/2024 12:24 PM MARKETING CLERK Guy Gómez MD 08/17/2024 12:24 PM Risks, benefits and alternatives to shave biopsy were discussed with the patient. Verbal consent obtained. Location: L forearm Skin prep: Alcohol Anesthesia: 1% lidocaine with epinephrine Hemostasis: Aluminum Chloride Dressing and wound care discussed. Patient agrees to phone call for results and message if not available. Guy Gómez MD Dermatology Resident PGY-3 Robb Howell MD PROCEDURE/MINOR SURG ICAL ORDERABLES * DERMATOPATHOLOGY (08/17/2024 3:33 AM MARKETING CLERK) Case Report Dermatopathology Report Case: [id number] Authorizing Provider: Robb Howell MD Collected: 08/17/2024 03:33 AM Ordering Location: [facility] - Received: 08/18/2024 11:05 AM General Dermatology Pathologist: Rose Soto MD Specimen: Skin, left forearm 1:26 PM [facility] DERMATOPATHOLOGY [facility]ORATORY Final Diagnosis Specimen A. SKIN, left forearm: SQUAMOUS CELL CARCINOMA IN SITU (PINK'S DISEASE) (D04.62) 1:26 PM [facility] DERMATOPATHOLOGY [facility]ORATORY Clinical History Suspect NMSC 1:26 PM [facility]ERMATOP[facility]Y [facility] Gross Description Specimen A: Received is one formalin filled container labeled with the patient's name and designated left forearm. The specimen consists of a shave biopsy measuring [id number] mm. Jar 0. 1:26 PM [facility] DERMATOPATHOLOGY [facility]ORATORY Microscopic Description Specimen A. SKIN, left forearm: The epidermis shows parakeratosis, full thickness disorderly maturation of keratinocytes, mitoses at different levels, and dyskeratotic cells. 1:26 PM [facility] DERMATOPATHOLOGY [facility]ORATORY Disclaimer An external and internal positive and negative controls are appropriate for the histochemical, immunohistochemical and immunofluorescence stain(s) in this case (if any), except where stated explicitly. The performance characteristics of the stain(s) cited in this report were developed and its performance characteristic determined by the Dermatopathology Laboratory at [facility], directed by Dr. Barbara Becker. These tests need not be, and therefore are not, approved by the [place] Food and Drug Administration. The tests are used for clinical purposes. Billing Codes Specimen Charges Stain Charges 27934 1 5 1:26 PM MARKETING CLERK DERMATOPATHOLOGY LABORATORY Embedded Images 5 1:26 PM MARKETING CLERK DERMATOPATHOLOGY LABORATORY Pathology/Cytolo gy TISSUE SPECIMEN FROM SKIN / Unknown 08/17/2024 3:33 AM MARKETING CLERK 08/18/2024 11:05 AM MARKETING CLERK Robb Howell MD LAB - PATHOLOGY/CYTO LOGY ORDERABLES DERMATOPATHOLOGY LABORATORY [facility] - Department of Dermatology [address], [address] [phone] * CARDIAC PROCEDURE ORDER (07/26/2024) Only the most recent of2 resultswithin the time period is included. Narrative 07/26/2024 Ordered by an unspecified provider. Scanned Document CARDIAC SERVICES ORD ERABLES * PA PM DEVICE PROGR EVAL DUAL (07/19/2024 8:47 AM MARKETING CLERK) Narrative Daily Bravo MD - 07/19/2024 8:47 AM MARKETING CLERK Daily Bravo MD 07/19/2024 8:49 AM This is a 64 year old male with a H/O sick sinus syndrome . The patient received a Medtronic Advisa DR dual chamber pacemaker on 09/23/16. The patients device is functioning appropriately according to the punch operator's recommendations with appropriate battery voltage, charge time, shock impedance (s), lead impedance (s) along with pacing and sensing thresholds. The patient will be scheduled for 3 month remote follow-up. Instructed to call with questions or problem. Daily Bravo MD PROCEDURE/MINOR SURG ICAL ORDERABLES * EKG 12-LEAD (07/19/2024 8:11 AM MARKETING CLERK) Ventricular Rate 71 BPM [facility] Atrial Rate 71 BPM [facility] P-R Interval 244 ms [facility] QRS Duration ms 194 ms [facility] Q-T Interval ms 446 ms [facility] QTC Calculation (Bezet) 484 ms [facility] Calculated R [place] -85 degrees [facility] Calculated T [place] 34 degrees [facility] Interpretation EKG SINUS RHYTHM WITH 1ST DEGREE A-V BLOCK LEFT AXIS DEVIATION RIGHT BUNDLE BRANCH BLOCK MINIMAL VOLTAGE CRITERIA FOR LVH, MAY BE NORMAL VARIANT ( R in aVL ) INFERIOR INFARCT (CITED ON OR BEFORE 10-JUL-2020) ABNORMAL ECG WHEN COMPARED WITH ECG OF 10-JUL-2020 15:50, QRS DURATION HAS INCREASED CRITERIA FOR ANTERIOR INFARCT ARE NO LONGER PRESENT CRITERIA FOR ANTEROLATERAL INFARCT ARE NO LONGER PRESENT SERIAL CHANGES OF INFERIOR INFARCT PRESENT Confirmed by MD QUINCY, DAILY ([id number]) on 07/19/2024 1:27:54 PM [facility] 07/19/2024 8:11 AM MARKETING CLERK 07/19/2024 1:27 PM MARKETING CLERK Daily Bravo MD ECG ORDERABLES ANNIE ACEVEDO * CT LUNG CANCER SCREEN LOW DOSE (06/14/2024 1:47 PM MARKETING CLERK) Anatomical Region Laterality Modality Chest Computed Tomogra phy 06/14/2024 3:19 PM MARKETING CLERK Impressions 06/14/2024 8:13 PM MARKETING CLERK Impression: No pulmonary nodules identified. Lung-RADS category 1 . Continued annual screening with low-dose CT is recommended. ACR Lung-RADS Category/Recommendations: 0: Need prior comparisons or additional images 1: Negative: 12 month follow up LDCT (Low Dose CT) 2: Benign Appearin month follow up LDCT 3: Probably Benign: 6 month follow up LDCT 4A: Suspicious: 3 month follow up LDCT (or immediate PET if >7mm solid component) 4B: Suspicious: Immediate Chest CT or PET if >7mm solid component 4X: Cat 3 or 4A nodules with additional suspicious findings Modifier- S : Significant NON-lung cancer findings Modifier- C : Prior treated Lung Cancer. > Dictated by Naz Roblero MD, (advertising vice president). IRuel MD have personally reviewed and interpreted this examination/study. > Interpreting Provider: Ruel Whitehead MD on 06/14/2024 8:13 PM Narrative 06/14/2024 8:13 PM MARKETING CLERK PROCEDURE: CT LUNG SCREEN LOW DOSE DATE/TIME OF EXAM: 06/14/2024 1:47 PM CLINICAL INFORMATION: None relevant/not provided if blank. Indication: F17.210: Nicotine dependence, cigarettes, uncomplicated Additional History: COMPARISON: CT chest 06/18/2023. TECHNIQUE: CT of the chest was performed without intravenous contrast utilizing low dose protocol. CT dose reduction technique was used, including Automated Exposure Control. Findings: Lower Neck and Axillae: Left upper chest wall pacemaker with leads terminating in the right atrium and right ventricle. Lungs: No pulmonary parenchymal or airway process is present. No suspicious pulmonary nodules are identified. No pleural fluid or pneumothorax is present. Heart and Pericardium: The cardiac chambers are normal in size. No pericardial fluid or thickening is present. Mediastinum and Ximena: No enlarged lymph nodes are present. Scattered subcentimeter mediastinal lymph nodes. Thoracic Vasculature: The aorta and its branch vessels are atherosclerotic. Coronary artery atherosclerosis. Bones and Chest Wall: Bone windows demonstrate no suspicious lytic or blastic lesions. Chronic fracture deformity of the posterior aspect of the right 11th rib. The visible osseous structures are intact. Degenerative changes are seen most notably in the mid thoracic spine. Upper Abdomen: The visible portions of the upper abdominal organs are normal. Procedure Note Ruel Whitehead MD - 06/14/2024 PROCEDURE: CT LUNG SCREEN LOW DOSE DATE/TIME OF EXAM: 06/14/2024 1:47 PM CLINICAL INFORMATION: None relevant/not provided if blank. Indication: F17.210: Nicotine dependence, cigarettes, uncomplicated Additional History: COMPARISON: CT chest 06/18/2023. TECHNIQUE: CT of the chest was performed without intravenous contrast utilizing low dose protocol. CT dose reduction technique was used, including Automated ExposureControl. Findings: Lower Neck and Axillae: Left upper chest wall pacemaker with leads terminating in the rightatrium and right ventricle. Lungs: No pulmonary parenchymal or airway process is present. No suspicious pulmonary nodules are identified. No pleural fluid or pneumothorax is present. Heart and Pericardium: The cardiac chambers are normal in size. No pericardial fluid orthickening is present. Mediastinum and Ximena: No enlarged lymph nodes are present. Scattered subcentimeter mediastinal lymph nodes. Thoracic Vasculature: The aorta and its branch vessels are atherosclerotic. Coronary artery atherosclerosis. Bones and Chest Wall: Bone windows demonstrate no suspicious lytic or blastic lesions. Chronic fracture deformity of the posterior aspect of the right 11th rib. The visible osseous structures are intact. Degenerative changes are seenmost notably in the mid thoracic spine. Upper Abdomen: The visible portions of the upper abdominal organs are normal. Impression: No pulmonary nodules identified. Lung-RADS category 1 . Continued annual screening with low-dose CT is recommended. ACR Lung-RADS Category/Recommendations: 0: Need prior comparisons or additional images 1: Negative: 12 month follow up LDCT (Low Dose CT) 2: Benign Appearin month follow up LDCT 3: Probably Benign: 6 month follow up LDCT 4A: Suspicious: 3 month follow up LDCT (or immediate PET if >7mm solid component) 4B: Suspicious: Immediate Chest CT or PET if >7mm solid component 4X: Cat 3 or 4A nodules with additional suspicious findings Modifier- S : Significant NON-lung cancer findings Modifier- C : Prior treated Lung Cancer. > Dictated by Naz Roblero MD, (advertising vice president). IRuel MD have personally reviewed and interpreted this examination/study. > Interpreting Provider: Ruel Whitehead MD on 06/14/2024 8:13 PM [address] Ford MD CT ORDERABLES from Last 3 Months or Most Recently Relevant to Health Maintenance Care Teams Bullard Machine Operator Relationship Specialty Start Date End Date Dina Cloud PA-C [address] [place] [address] PCP - General Physician Locomotive Observer 07/10/20
--- OUTSIDE RECORDS SUMMARY | 2024-09-16 11:57 | XMS_ITS | Encounter Summary ---
Author Organization [facility] Address [address] [place] [address] Care Team Providers Care Complex Care Nurse Name Role Phone Dina Cloud PA-C Primary Care Provider Encounter Details Date Type Department Care Team (Late Contact Info) Description 01/13/2023 Telephone [facility] - Centralized Scheduling [address] [place] [phone] Nathalie Hassan M, OD [address] [facility] [place] [phone] Social History Tobacco Use Types Packs/Day Years Used Date Smoking Tobacco: Every Day Cigarettes Smokeless Tobacco: Never Comments:using patches Alcohol Use Standard Drinks/Week Comments Yes 0 (1 standard drink = 0.6 oz pur e alcohol) occ PHQ-2 Answer Date Recorded PHQ2 TOTAL SCORE 0 09/29/2022 Sex and Gender Information Value Date Recorded Sex Assigned at Not on file Gender Identity Not on file Sexual Orientation Not on file COVID-19 Exposure Response Date Recorded In the last 10 days, have yo u been in contact with someone who was confirmed or suspected to have Coronavirus/COVID-19? No / Unsure 01/01/2023 8:25 AM CDT documented as of this encounter Plan of Treatment Upcoming Encounters Date Type Department Care Team (Late Contact Info) Description 09/20/2024 9:30 AM TRANSCRIPTION MANAGER Office Visit [facility] - Neurology [address] [place] [address], [place] [address] Meredith Weiss MD [address] [place] [address] [address] [place] [address] 10/18/2024 1:00 AM CDT Clinical Support [facility] Cardiology [address] [facility], [address] [phone] 10/25/2024 9:00 AM CDT [facility] Cardiology [facility], [address] [phone] Daily Bravo MD [address] [place] [address] 11/08/2024 3:40 PM CDT [facility] - Endocrinology [address] [place] [address], [place] [address] Garry Tracey MD [address] [place] [address] 2[address] [place] [phone] 12/15/2024 2:00 PM CDT Office Visit [facility] - Pulmonology [address] [place] [address], [place] [address] Becca Ford MD [address] [place] [address] 2L DIV [place] [address] 01/17/2025 1:10 AM CDT Clinical Support [facility] - Cardiology [address] [facility], [address] [address] 02/24/2025 9:10 AM CDT Office Visit [facility] - Dermatology [address] [place] [address], [place] [address] Robb Howell MD [address] [place] [address] [address] [place] [address] 03/02/2025 9:00 AM CDT Office Visit [facility] - Nephrology [address] [place] [address], [place] [address] Nataliia Cooper MD [address] [place] [address] 3 [place] [address] 04/18/2025 1:10 AM CDT Clinical Support [facility] - Cardiology [address] [place] [phone] 07/18/2025 1:10 AM TRANSCRIPTION MANAGER Clinical Support [facility] - Cardiology [address] [place] [phone] documented as of this encounter Visit Diagnoses Not on filedocumented in this encounter Care Teams Complex Care Nurse Relationship Specialty Start Date End Date Dina Cloud PA-C [address] [place] [phone] PCP - General Physician Research Chef 07/10/20 documented as of this encounter
--- OUTSIDE RECORDS SUMMARY | 2024-09-16 11:57 | XMS_ITS | Encounter Summary ---
Author Organization [facility] Address [address] [facility] [place] [address] Care Team Providers Care Tacker Elastic Band Name Role Phone Dina Cloud PA-C Primary Care Provider Encounter Details Date Type Department Care Team (Late Contact Info) Description 01/15/2023 Telephone [facility] - Centralized Scheduling [address] [place] [phone] Nathalie Hassan M, OD [address] [facility] [place] [phone] Social History Tobacco Use Types Packs/Day Years Used Date Smoking Tobacco: Every Day Cigarettes Smokeless Tobacco: Never Alcohol Use Standard [...] (Late Contact Info) Description 09/20/2024 9:30 AM PUPPY TRAINER Office Visit [facility] - Neurology [address] [place] [address], [place] [phone] Meredith Weiss MD [address] [place] [address] 1L [place] [phone] 10/18/2024 1:00 AM CDT Clinical Support [facility] - Cardiology [facility], [address] [phone] 10/25/2024 9:00 AM CDT Office Visit [facility] - Cardiology [facility], [address] [phone] Daily Bravo MD [address] [place] [address] 11/08/2024 3:40 PM CDT [facility] Endocr[facility]ology [address] [place] [address], [place] [phone] Garry Tracey MD [address] [place] [address] 2L [place] [phone] 12/15/2024 2:00 PM CDT Office Visit [facility] - Pulmonology [address] [place] [address], [place] [phone] Becca Ford MD [address] [place] [address] 2L DIV [place] [address] 01/17/2025 1:10 AM CDT Clinical Support [facility] Cardiology [address] [facility], [address] [phone] 02/24/2025 9:10 AM CDT Office [facility] Dermatology [address] [place] [address], [place] [phone] Robb Howell MD [address] [place] [address] 3 [place] [address] 03/02/2025 9:00 AM CDT Office Visit [facility] - Nephrology [address] [place] [address], [place] [address] Nataliia Cooper MD [address] [place] [address] 3 [place] [address] 04/18/2025 1:10 AM CDT Clinical Support [facility] - Cardiology [address] [place] [phone] 07/18/2025 1:10 AM PUPPY TRAINER Clinical Support [facility] - Cardiology [address] [place] [phone] documented as of this encounter Visit Diagnoses Not on filedocumented in this encounter Care Teams Tacker Elastic Band Relationship Specialty Start Date End Date Dina Cloud PA-C [address] [place] [phone] PCP - General Physician Roll Hauler 07/10/20 documented as of this encounter
--- OUTSIDE RECORDS SUMMARY | 2024-09-16 11:57 | XMS_ITS | Encounter Summary ---
Author Organization [facility] Address [address] [facility] [place] [address] Care Team Providers Care Spool Worker Name Role Phone Dina Cloud PA-C Primary Care Provider Encounter Details Date Type Department Care Team (Late st Contact Info) Description 01/26/2023 Telephone [facility] - Centralized Scheduling [address] [place] [phone] Garry Tracey MD [address] [place] [phone] Social History Tobacco Use Types Packs/Day Years [...] suspected to have Coronavirus/COVID-19? No / Unsure 01/22/2023 9:40 AM CDT documented as of this encounter Miscellaneous Notes * Telephone Encounter - Fam Wilkerson - 01/27/2023 9:34 AM CDT Lexi called stating they need the glucose reader called into [facility] in [place] [phone] * Telephone Encounter - Fam Wilkerson - 01/26/2023 10:52 AM CDT PT needs Freestyle Raj 2 sensor orders sent to [facility] urgently, He has not been able to read glucose levels for 10 days Verified: [phone] Lexi Caregiver documented in this encounter Plan of Treatment Upcoming Encounters Date Type Department Care Team (Late st Contact Info) Description 09/20/2024 9:30 AM COMPANY TRUCK DRIVER Office Visit [facility] - Neurology [address] [place] [phone] Meredith Weiss MD [address] [place] [address] 1L [place] [phone] 10/18/2024 1:00 AM CDT Clinical Support [facility] - Cardiology [address] [place] [phone] 10/25/2024 9:00 AM CDT Office Visit [facility] - Cardiology [address] [place] [phone] Daily Bravo MD [address] [place] [address] 11/08/2024 3:40 PM CDT [facility] [address] [place] [address] [place] [phone] Garry Tracey MD [address] [place] [address] 2L [place] [phone] 12/15/2024 2:00 PM CDT [facility] Pul[facility] [address] [place] [address], [place] [address] Becca Fodr MD [address] [place] [address] 2L DIV [place] [address] 01/17/2025 1:10 AM CDT Clinical [facility] Cardiology [address] [place] [phone] 02/24/2025 9:10 AM CDT [facility] - Dermatology [address] [place] [address], [place] [address] Robb Howell MD [address] [place] [address] 3L [place] [address] 03/02/2025 9:00 AM CDT [facility] Nephrology [address] [place] [address], [place] [address] Nataliia Cooper MD [address] [place] [address] 3L [place] [address] 04/18/2025 1:10 AM CDT Clinical Support [facility] - Cardiology [address] [place] [phone] 07/18/2025 1:10 AM COMPANY TRUCK DRIVER Clinical Support [facility] - Cardiology [address] [place] [phone] documented as of this encounter Visit Diagnoses Not on filedocumented in this encounter Care Teams Spool Worker Relationship Specialty Start Date End Date Dina Cloud PA-C [address] [place] [phone] PCP - General Physician Computerized Mill Mill Recorder 07/10/20 documented as of this encounter
--- OUTSIDE RECORDS SUMMARY | 2024-09-16 11:57 | XMS_ITS | Clinical Summary ---
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 02/14/2016 Herniated lumbar intervertebral disc 11/05/2015 Spinal stenosis 11/05/2015 Lumbago 11/05/2015 Chronic pain 11/05/2015 Hypertension 04/27/2015 Hyperlipidemia 04/27/2015 Type 2 diabetes mellitus 03/15/2015 Leukocytosis 03/08/2015 Thrombocythemia 03/08/2015 Anemia 03/08/2015 Surgical History Surgery Date Site/Laterality Comments AR RPR UMBILICAL HERNIA < 5 YRS REDUCIBLE Umbilical Hernia Repair - (Added by TW Conv) AR UNLISTED PROCEDURE SPINE Percutaneous Vertebral Augmentation Kyphoplasty - L3 (Added by TW Conv) FL UPPER GI AIR CONTRAST W KUB 11/17/2017 Left Medical History Medical History Date Comments Personal history of other di seases of the circulatory system History of hypertension - (A dded by TW Conv) Personal history of other en docrine, nutritional and metabolic disease History of hyperlipi demia - (Added by TW Conv) Personal history of other di seases of the respiratory system History of chronic obstructi ve lung disease - (Added by TW Conv) Other specified postprocedural states H/O kyphoplasty - (Added by TW Conv) Personal history of transien t ischemic attack (TIA), and cerebral infarction without residual deficits History of stroke - (Added b y TW Conv) Personal history of other en docrine, nutritional and metabolic disease History of diabetes mellitus - (Added by TW Conv) Personal history of other di seases of the nervous system and sense organs History of peripheral neuropathy - (Added by TW Conv) Personal history of other di seases of the circulatory system History of carotid artery st enosis - (Added by TW Conv) Personal history of other sp ecified conditions History of fatigue - (Added by TW Conv) Personal history of other sp ecified conditions History of shortness of nela th - (Added by TW Conv) Other symptoms and signs inv olving the musculoskeletal system Weakness of lower extremity - (Added by TW Conv) Ataxia Loss of coordina tion - (Added by TW Conv) Personal history of other di seases of the nervous system and sense organs History of blurred vis ion - (Added by TW Conv) Personal history of other sp ecified conditions History of urinary frequency - (Added by TW Conv) Other amnesia Memory loss - (A dded by TW Conv) Irritability and anger Irritabil ity - (Added by TW Conv) Other skin changes Bruises easil y - (Added by TW Conv) Hearing loss Hearing difficul ty - (Added by TW Conv) Personal history of other di seases of the nervous system and sense organs History of tinnitus - (Added by TW Conv) Anesthesia of skin Numbness and tingling - (Added by TW Conv) Family History Medical History Relation Name Comments Diabetes Father Family history of diabetes mellitus - (Added by TW Conv) Hypertension Father Family history of hypertension - (Added by TW Conv) Stroke Mother Family history of cerebrovascular accident (CVA) - (Added by TW Conv) Hypertension Sister Family history of hypertension - (Added by TW Conv) Relation Name Status Comments Father Mother Sister Social History Tobacco Use Types Packs/Day Years Used Date Smoking Tobacco: Every Day Sex and Gender Information Value Date Recorded Sex Assigned at Not on file Legal 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 Gender Identity Not on file Sexual Orientation Not on file Obstetrics History Last Filed Vital Signs Vital Sign Reading Time Taken Comments Blood Pressure 115/78 03/25/2020 3:09 AM CDT Pulse 90 03/25/2020 3:09 AM CDT Temperature 37.1 C (98.8 F) 03/25/2020 3:09 AM CDT Respiratory Rate - - Oxygen Saturation 95% 03/25/2020 3:09 AM CDT Inhaled Oxygen Concentration - - Weight 95.6 kg (210 lb 12.8 oz) 03/25/2020 3:09 AM CDT Height 172.7 cm (5' 8 ) 03/25/2020 3:09 AM CDT Body Mass Index 32.05 03/25/2020 3:09 AM CDT Plan of Treatment Health Maintenance Due Date Last Done Comments Albumin Creatinine Ratio, Urine 1961 Colon Cancer Screening-Colonoscopy 1961 Depression Screening 1961 Hepatitis C Screening 1961 Prostate Cancer Screening-PSA 1961 eGFR 1961 Dilated Eye Exam 1961 Foot Exam 1961 Hepatitis B Screening 1979 Regular Well Visit/Exam 18-64 1979 Lipid Panel 01/23/2016 01/22/2015, 12/01, 12/14/2014, Additional history exists Hemoglobin A1C 09/24/2020 03/24/2020, 01/31, 01/22/2015, Additional history exists Covid-19 Vaccine (2023-2 5 season) 2024 05/27/2023, 05/29/2022, 07/17/2021, Additional history exists Influenza Vaccine (#1) 2024 3, 06/17/2022, 06/02/2022, Additional history exists DTaP/Tdap/Td Vaccine (2 - Td or Tdap) 02/09/2027 02/09/2017 Colon Cancer Screening-FIT Discontinued 01/23/2015 Zoster Vaccine Completed 01/02/2022, 11/03/2021 Pneumococcal vaccine <65 Completed 023, 02/09/2017, 08/21/2015, Additional history exists Procedures Procedure Name Priority Date/Time Associated Diagnosis Comments HEMOGLOBIN A1C Routine 03/24/2020 8:49 PM CDT OCCULT BLOOD, FECAL (FIT) Routine 01/23/2015 12:00 PM CDT TNI WITH LIPID PANEL Routine 01/22/2015 4:47 PM CDT from Last 3 Months or Most Recently Relevant to Health Maintenance Results * (ABNORMAL) Hemoglobin A1c (03/24/2020 8:49 PM CDT) Pathologist [facility] Hemoglobin A1c % 8.9(H) 4.0 - 5.6 % [facility] Comment: ADA 2016 GUIDELINES: Initial Diagnostic Criteria HbA1c Result: Interpretation: <5.7% Normal 5.7-6.4% At risk for diabetes mellitus >=6.5% Consistent with diabetes mellitus Diabetes monitoring Target value (ADA Recommended) <7% 03/24/2020 8:49 PM CDT 03/24/2020 8:53 PM CDT Narrative Resulting Agency Comment IN us Milton Jacob MD LAB BLOOD ORDERABLES Final Result Performing Organization Address City/[facility]/ZIP Co de Phone Number [place] [address] [address] [phone] * Occult blood, fecal non neoplasm screening (01/23/2015 12:00 PM CDT) Pathologist [facility] Stool Occult Blood NEGATIVE NEGATIVE 01/23/2015 2:57 PM CDT [facility] HISTORICAL RESULTS 01/23/2015 12:0 0 PM CDT 01/23/2015 2:36 PM CDT Narrative [facility] HISTORICAL RESULTS - 01/23/2015 2:57 PM CDT Collected By je us Carlos Bernabe MD LAB BODY FLUIDS AND ST OOLS ORDERABLES Final Result [facility] HISTORICAL RESULTS * (ABNORMAL) TNI with LIPID PANEL (01/22/2015 4:47 PM CDT) Pathologist [facility] Troponin I < 0.300 0.000 - 0.300 ng/mL 01/22/2015 5:37 PM CDT [facility] HISTORICAL RESULTS Comment: Reference using MCKINLEY Chemiluminescence Negative: Repeat in 4-6 hours as indicated. Triglycerides 544(H) 0 - 199 mg/dL 01/22/2015 5:39 PM CDT [facility] HISTORICAL RESULTS Comment: LDL (measured) to follow due to Triglycerides >250 mg/dL 12 hr pc highly recommended for Triglyceride Cholesterol 244(H) 0 - 199 mg/dL 01/22/2015 5:39 PM CDT [facility] HISTORICAL RESULTS Comment: Borderline: 200-239 High Risk: >239 HDL Cholesterol 28(L) 40 - 60 mg/dL 01/22/2015 5:39 PM CDT [facility] HISTORICAL RESULTS Comment: Major Risk < 40 mg/dL Moderate Risk 40-60 mg/dL Negative Risk > 60 mg/dL Cholesterol/HDL Ratio 8.7 01/22/2015 5:39 PM CDT [facility] HISTORICAL RESULTS Comment: Cholesterol / HDL Ratio 3.5:1 or less is desirable. Cholesterol / HDL Ratio greater than 5:1 is considered higher risk for developing heart disease. 01/22/2015 4:47 PM CDT 01/22/2015 4:53 PM CDT Narrative [facility] HISTORICAL RESULTS - 01/22/2015 5:39 PM CDT Jerry Tang MD LAB BLOOD ORDERABLES Cristine pal Result [facility] HISTORICAL RESULTS from Last 3 Months or Most Recently Relevant to Health Maintenance Insurance [address] [place] [id number] [facility] Care Teams Canvas Products Sales Representative Relationship Specialty Start Date End Date Dina Cloud PA [facility] [place] [address] PCP - General Physician Planner Scheduler 08/28/23
--- OUTSIDE RECORDS SUMMARY | 2024-09-16 11:57 | XMS_ITS | Encounter Summary ---
Author Organization [facility] Address [address] [place] [address] Care Team Providers Care Jewelry Bench Worker Name Role Phone Dina Cloud PA-C Primary Care Provider Encounter Details Date Type Department Care Team (Late st Contact Info) Description 01/28/2023 Telephone [facility] - Centralized Scheduling [address] [place] [phone] Garry Tracey MD [address] [place] [phone] Social History Tobacco Use Types Packs/Day Years [...] * Telephone Encounter - Fam Wilkerson - 01/28/2023 9:21 AM CDT Lexi states this is her 4th time trying to obtain this Rx. [facility] informed her today that they are only receiving the authorization and not the Rx PT needs Dexcom sensor and reader (?) Rx sent to to [facility] [address], He has not been able to read glucose levels for 13 days ?? 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 ASSEMBLER Office Visit [facility] - Neurology [address] [place] [phone] Meredith Weiss MD [address] [place] [address] 1L [place] [phone] 10/18/2024 1:00 AM CDT Clinical Support [facility] - Cardiology [address] [place] [phone] 10/25/2024 9:00 AM CDT Office Visit [facility] - Cardiology [address] [place] [phone] Daily Bravo MD [address] [place] [address] 11/08/2024 3:40 PM CDT Office Visit [facility] - Endocrinology [address] [place] [address], [place] [phone] Garry Tracey MD [address] [place] [address] 2L DIV [place] [phone] 12/15/2024 2:00 PM CDT Office Visit [facility] - Pulmonology [address] [place] [address], [place] [phone] Becca Ford MD [address] [facility] 2L DIV OF GEN [place] [address] 01/17/2025 1:10 AM CDT [facility] [address] [facility], [address] [phone] 02/24/2025 9:10 AM CDT [facility] [address] [place] [address], [place] [address] Robb Howell MD [address] [facility] 3L DEPT [place] [address] 03/02/2025 9:00 AM CDT Office Visit [facility] - Nephrology [address] [place] [phone] Nataliia Cooper MD [address] [facility] 3L [place] [address] 04/18/2025 1:10 AM CDT Clinical Support [facility] - Cardiology [address] [facility], [address] [phone] 07/18/2025 1:10 AM ELECTRIC MOTOR ASSEMBLER Clinical Support [facility] - Cardiology [address] [facility], [address] [phone] documented as of this encounter Visit Diagnoses Not on filedocumented in this encounter Care Teams Jewelry Bench Worker Relationship Specialty Start Date End Date Dina Cloud PA-C [address] [place] [phone] PCP - General Physician Wood Grinder Operator 07/10/20 documented as of this encounter
--- OUTSIDE RECORDS SUMMARY | 2024-09-16 11:57 | XMS_ITS | Encounter Summary ---
Author Organization [facility] Address [address] [place] [address] Care Team Providers Care University Extension Specialist Name Role Phone Dina Cloud PA-C Primary Care Provider Encounter Details Date Type Department Care Team (Late st Contact Info) Description 09/04/2023 Telephone [facility] - Neurology [address] [place] [address], [place] [phone] Meredith Weiss MD [address] [place] [phone] Social History Tobacco Use Types Packs/Day Years Used Date Smoking Tobacco: Every Day Cigarettes 1 51.1 Started: 1972 Smokeless Tobacco: Never Comments:06/25 08/04 ppd Alcohol Use Standard Drinks/Week Comments Not [...] encounter Miscellaneous Notes * Telephone Encounter - Osbaldo Perdomo MA - 09/04/2023 1:54 PM CST I spoke with this patient's caregiver who stated that they have not been able to milk pickup driver this patient's Gabapentin [address] Weiss renewed this prescription on 09/02/2023 and this patient's pharmacy confirmed a receipt of this prescription. I called this patient's pharmacy ([facility] in [place], [place]) and the pharmacy technician inpatient claimed that they did not have a copy of the prescription. I then called in the prescription as prescribed by Dr. Weiss. AL CLERK * Telephone Encounter - Bess Boss - 09/04/2023 12:04 PM CST Patient called in requesting a Med refill. Drug type:gabapintine 300 mg Completely out now Pharmacy:[facility] Patient call back number: [phone] . AL CLERK documented in this encounter Plan of Treatment Upcoming Encounters Date Type Department Care Team (Late st Contact Info) Description 09/20/2024 9:30 AM RENTAL CLERK Office Visit [facility] - Neurology [address] [place] [address], [facility] [place] [address] Meredith Weiss MD [address] [place] [address] [place] [address] 10/18/2024 1:00 AM CDT Clinical Support [facility] - Cardiology [address] [place] [phone] 10/25/2024 9:00 AM CDT Office Visit [facility] - Cardiology [address] [place] [address] [phone] Daily Bravo MD [address] [place] [address] 11/08/2024 3:40 PM CDT Office Visit [facility] - Endocrinology [address] [place] [address], [place] [address] Garry Tracey MD [address] [place] [address] 2L [place] [address] 12/15/2024 2:00 PM CDT [facility] [address] [place] [address], [place] [phone] Becca Ford MD [address] [place] [address] 2L [place] [address] 01/17/2025 1:10 AM CDT Clinical Support [facility] - Cardiology [address] [place] [phone] 02/24/2025 9:10 AM CDT [facility] Derm[facility] [address] [place] [address], [place] [address] Robb Howell MD [address] [place] [address] 3L [place] [address] 03/02/2025 9:00 AM CDT Office Visit [facility] - Nephrology [address] [place] [address], [place] [phone] Nataliia Cooper MD [address] [place] [address] 3L [place] [address] 04/18/2025 1:10 AM CDT Clinical Support [facility] - Cardiology [address] [place] [address], [address] [phone] 07/18/2025 1:10 AM RENTAL CLERK [facility] [address] [place] [address], [address] [phone] documented as of this encounter Visit Diagnoses Not on filedocumented in this encounter Care Teams University Extension Specialist Relationship Specialty Start Date End Date Dina Cloud PA-C [address] [place] [phone] PCP - General Physician Siding Mechanic 07/10/20 documented as of this encounter
--- OUTSIDE RECORDS SUMMARY | 2024-09-16 11:57 | XMS_ITS | Patient Health Summary ---
Author Organization [facility] Address [address] [place] [address] Care Team Providers Care Perforator Loader Name Role Phone Dina Cloud PA-C Primary Care Provider Note from [facility],non-owned Affiliates and Associated Physician Practices is amultiple site organization consisting of ambulatory clinics and hospital sitesin [place], [place] and [place]. This disclosure is being madepursuant to the Care Everywhere program and may not contain all information available regarding this patient. Last updated 18.[facility] Allergies * Penicillins(Other) -Low Criticality Medications * Be aware that medications may not be up to date on this document. Alwaysverify current medications with the patient. * folic acid (FOLVITE) 1 MG tablet(Started 07/20/2017) Take by mouth DAILY. * atorvastatin (LIPITOR) 80 MG tablet(Started 05/26/2017) Take 1 (one) tablet by mouth once daily * vitamin D, ergocalciferol, (DRISDOL) 1.25 MG (53652 UT) capsule(Started 06/27/2020) Take 1 (one) capsule by mouth * clopidogrel (PLAVIX) 75 MG tablet Take 1 (one) tablet by mouth once daily * ketoconazole (NIZORAL) 2 % cream(Started 02/18/2021) * Blood Glucose Monitoring Suppl (ACCU-CHEK LAYNE CONNECT) w/Device KIT * Insulin Syringes, Disposable, (B-D INSULIN SYRINGE 1CC) U-100 1 ML MISC insulin syringe U-100 with needle 0.5 mL 31 gauge x 12/16 USE QID WITH LANTUS AND HUMALOG * aspirin (ASPIRIN) 81 MG chew tablet aspirin 81 mg chewable tablet CHEW 1 T PO Q DAY * metoprolol succinate XL 24hr (TOPROL XL) 25 MG tablet(Started 10/07/2021) Take 1 (one) tablet by mouth once daily * ONETOUCH ULTRA test strip(Started 11/19/2021) Use 3 times daily 4 refills by 11/19/2022 * ammonium lactate (LAC-HYDRIN) 12 % lotion(Started 12/07/2020) * famotidine (Pepcid) 20 MG tablet(Started 08/25/2022) Take 1 (one) tablet by mouth 2 times daily * hydroxyurea (Hydrea) 500 MG capsule(Started 08/22/2022) Take 1 (one) capsule by mouth once daily * levETIRAcetam (Keppra) 250 MG tablet Take 1 (one) tablet by mouth 2 times daily * lisinopril (Prinivil; Zestril) 20 MG tablet(Started 12/02/2022) Take 1 (one) tablet by mouth once daily * cyanocobalamin (Vitamin B-12) 1000 MCG tablet(Started 12/30/2022) Take 1 (one) tablet by mouth once daily 1 refill by 12/30/2023 * ONETOUCH DELICA PLUS 30G FINE LANCETS(Started 01/08/2023) Inject 1 Each subcutaneously 3 times daily 5 refills by 01/08/2024 * Continuous Blood Gluc Rod Drawer (Dexcom G7 Rod Drawer) SHANE(Started 01/29/2023) Use 1 kit as directed * albuterol HFA (ProAir HFA) 108 (90 Base) MCG/ACT inhaler(Started 06/18/2023) Inhale 2 (two) puffs by mouth every 4 hours as needed 5 refills by 06/17/2024 * Spacer/Aero-Holding Chambers (AeroChamber)(Started 06/18/2023) Inhale by mouth as directed 5 refills by 06/17/2024 * HYDROcodone-acetaminophen ([place]) 10-325 MG tablet(Started 09/04/2023) Take 1 (one) tablet by mouth every 6 hours as needed pain * insulin glargine (Lantus/Semglee) 100 units/mL pen(Started 10/05/2023) Inject 36 (thirty six) Units subcutaneously at bedtime 11 refills by 10/04/2024 * insulin lispro (HumaLOG KwikPen) 100 UNIT/ML pen(Started 10/05/2023) Inject 12 (twelve) Units to 18 (eighteen) Units subcutaneously 3 times daily before meals 12 with small, 15u with regular meal, 18u with heavy carbs meal, daily max 50 untits 11 refills by 10/04/2024 * insulin pen needle (Novofine 31) 31G X 5 MM needle(Started 10/05/2023) 1 (one) Each 4 times daily 11 refills by 10/04/2024 * Continuous Blood Gluc Sensor (Dexcom G7 Sensor) MISC(Started 10/05/2023) Use 1 Each every 10 days 11 refills by 10/04/2024 * dulaglutide (Trulicity) 3 MG/0.5ML injection(Started 10/05/2023) Inject 3 (three) mg subcutaneously every 7 days 11 refills by 10/04/2024 * empagliflozin (Jardiance) 10 MG tablet(Started 10/05/2023) Take 1 (one) tablet by mouth once daily 11 refills by 10/04/2024 * evolocumab (Repatha) 140 MG/ML prefilled syringe(Started 03/16/2024) Inject 140 (one hundred forty) mg subcutaneously every 14 days 4 refills by 03/16/2025 * buPROPion SR 12hr (Zyban) 150 MG tablet(Started 06/16/2024) Take 1 (one) tablet by mouth 2 times daily 5 refills by 06/16/2025 * Vascepa 1 g capsule(Started 07/19/2024) Take 1 (one) capsule by mouth 2 times daily with morning and evening meal 4 refills by 07/19/2025 * oxyBUTYnin CR 24hr (Ditropan XL) 15 MG tablet(Started 09/08/2024) Take 1 (one) tablet by mouth once daily 3 refills by 09/08/2025 * sildenafil (Viagra) 100 MG tablet(Started 09/08/2024) Take 1 (one) tablet by mouth once daily as needed (sex) Reasons: Erectile Dysfunction * tamsulosin (Flomax) 0.4 MG capsule(Started 09/08/2024) Take 1 (one) capsule by mouth once daily 4 refills by 09/08/2025 * amitriptyline (Elavil) 100 MG tablet(Started 09/08/2024) Take 1 (one) tablet by mouth once daily 3 refills by 09/08/2025 * gabapentin (Neurontin) 600 MG tablet(Started 09/13/2024) TAKE 1.5 TABLETS BY MOUTH IN THE MORNING AND AT NOON AND TAKE 2 TABLETS EVERY EVENING 4 refills by 09/13/2025 Ended Medications* HYDROcodone-acetaminophen (NORCO) 5-325 MG tablet(Started 04/03/2021)(Discontinued) Take 2 (two) tablets by mouth every 6 hours as needed * amitriptyline (Elavil) 100 MG tablet(Started 05/12/2022)(Discontinued) Take 1 (one) tablet by mouth once daily * lidocaine (Lidoderm) 5 % patch(Started 06/03/2022)(Discontinued) Apply 1 (one) patch to skin once daily Apply patch to most painful area and remove after 12 hours. May reapply a new patch 12 hours later. * sildenafil (Viagra) 100 MG tablet(Started 08/11/2022)(Discontinued) TAKE 1 TABLET BY MOUTH DIRECTED 1 HOUR PRIOR TO INTERCOURSE * nicotine (Nicoderm CQ) 21 MG/24HR patch(Started 03/12/2023)(Discontinued) Apply 1 (one) patch to skin once daily 6 refills by 03/11/2024 * gabapentin (Neurontin) 600 MG tablet(Started 05/19/2024)(Discontinued) Patient to take one and a half tablets (900 mg) in the morning and at noon and two tablets (1200 mg) in the evening 4 refills by 05/19/2025 * oxyBUTYnin CR 24hr (Ditropan XL) 15 MG tablet(Started 06/13/2024) (Discontinued) Take 1 (one) tablet by mouth once daily 5 refills by 06/13/2025 * tamsulosin (Flomax) 0.4 MG capsule(Started 06/29/2024)(Discontinued) TAKE ONE CAPSULE BY MOUTH EVERY DAY 4 refills by 06/29/2025 Active Problems Problem Noted Date Diagnosed Date Actinic keratosis 01/29/2024 History of nonmelanoma skin cancer 01/29/2024 Neuropathy 01/13/2024 Tobacco use disorder 07/03/2023 Sleep apnea 07/03/2023 Hypercalcemia 01/29/2023 Degeneration of lumbar intervertebral disc 12/0207/16/2023 Hypertriglyceridemia 10/07/2021 Mixed hyperlipidemia 10/07/2021 HTN (hypertension) 10/07/2021 Neoplasm of uncertain behavior of skin Epidermal inclusion cyst 09/27/2021 Solar lentiginosis 09/27/2021 Melanocytic nevi of trunk 09/27/2021 Lipoma of torso 09/27/2021 Cardiac pacemaker in situ 07/04/2021 Anemia 03/24/2019 07/16/2023 Myeloproliferative disease 08/26/2018 PAD (peripheral artery disease) 06/02/2018 Occlusion and stenosis of right carotid artery 1 09/23/2016 Immunizations * COVID PFIZER 12+YR 30MCG/0.3mL(Given 05/13/2023) * FLU, HISTORIC VACCINE(Given 05/06/2023) * INFLUENZA VACCINE(Given 06/02/2022, 05/17/2019, 04/29/2018) * INFLUENZA VACCINE, QUADR. (FLUZONE; FLULAVAL; FLUARIX; AFLURIA QUADRIVALENT; 6MO+), 0.5 ML (IIV4)(Given 05/17/2021) * PNEUMOCOCCAL PCV20 CONJ VAC IM(Given 06/17/2023) Social History Tobacco Use Types Packs/Day Years Used Date Smoking Tobacco: Every Day Cigarettes 1 51.1 Started: 1972 Smokeless Tobacco: Never Tobacco Cessation:Ready to Q uit: Not Asked; Counseling Given: Not Answered Comments:06/25 08/04 ppd Alcohol Use Standard Drinks/Week [...] Comments Blood Pressure 164/83 09/08/2024 7:55 AM TIME CLERK Pulse 94 09/08/2024 7:55 AM TIME CLERK Temperature 36.7 C (98 F) 09/08/2024 7:55 AM TIME CLERK Respiratory Rate 17 06/16/2024 1:59 PM TIME CLERK Oxygen Saturation 95% 09/08/2024 7:55 AM TIME CLERK Inhaled Oxygen Concentration - - Weight 103.1 kg (227 lb 6.4 oz) 09/08/2024 7:55 AM TIME CLERK Height 175.3 cm (5' 9 ) 09/08/2024 7:55 AM TIME CLERK Body Mass Index 33.58 09/08/2024 7:55 AM TIME CLERK Procedures * URINE MICROSCOPIC ONLY REFLEX TO CULTURE(Performed 09/01/2024) Performed for Stage 3 chronic kidney disease, unspecified whether stage 3a or 3b CKD (HCC) * MICROALB/CREAT RATIO URINE RANDOM PANEL(Performed 09/01/2024) Performed for Stage 3 chronic kidney disease, unspecified whether stage 3a or 3b CKD (HCC) * URINALYSIS REFLEX MICROSCOPIC REFLEX CULTURE(Performed 09/01/2024) Performed for Stage 3 chronic kidney disease, unspecified whether stage 3a or 3b CKD (HCC) * VITAMIN D 25-HYDROXY(Performed 09/01/2024) Performed for Stage 3 chronic kidney disease, unspecified whether stage 3a or 3b CKD (HCC) * PTH INTACT W/O CALCIUM(Performed 09/01/2024) Performed for Stage 3 chronic kidney disease, unspecified whether stage 3a or 3b CKD (HCC) * HEMOGLOBIN A1C(Performed 09/01/2024) Performed for Stage 3 chronic kidney disease, unspecified whether stage 3a or 3b CKD (HCC) * URIC ACID BLOOD(Performed 09/01/2024) Performed for Stage 3 chronic kidney disease, unspecified whether stage 3a or 3b CKD (HCC) * RENAL FUNCTION PANEL(Performed 09/01/2024) Performed for Stage 3 chronic kidney disease, unspecified whether stage 3a or 3b CKD (HCC) * CBC W AUTO DIFFERENTIAL(Performed 09/01/2024) Performed for Stage 3 chronic kidney disease, unspecified whether stage 3a or 3b CKD (HCC) * US RETROPERITONEAL COMPLETE(Performed 09/01/2024) Performed for Stage 3 chronic kidney disease, unspecified whether stage 3a or 3b CKD (HCC) * MI DESTR MALIG TRUNK,EXTREM 0.6-1 CM(Performed 08/26/2024) 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 * MI DESTR MALIG TRUNK,EXTREM 0.6-1 CM(Performed 08/17/2024) 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 * MI DESTROY PREMALIG LESION, 1ST LESION(Performed 08/17/2024) Performed for Actinic keratosis * MI TANGNTL BX SKIN SINGLE LES(Performed 08/17/2024) Performed for Neoplasm of uncertain behavior of skin * DERMATOPATHOLOGY(Performed 08/17/2024) Performed for Neoplasm of uncertain behavior of skin * CARDIAC PROCEDURE ORDER(Performed 07/26/2024) * MI PM DEVICE PROGR EVAL DUAL(Performed 07/19/2024) Performed for SSS (sick sinus syndrome) ([facility]) * EKG 12-LEAD(Performed 07/19/2024) Performed for SSS (sick sinus syndrome) ([facility]) * CARDIAC PROCEDURE ORDER(Performed 07/19/2024) * CT LUNG SCREEN LOW DOSE(Performed 06/14/2024) Performed for Nicotine dependence, cigarettes, uncomplicated * MI PM/ICD REMOTE TECH SERV(Performed 06/04/2024) Performed for SSS (sick sinus syndrome) ([facility]) * MI PM DEVICE INTERROGATE REMOTE(Performed 06/04/2024) Performed for SSS (sick sinus syndrome) ([facility]) * CARDIAC PROCEDURE ORDER(Performed 04/22/2024) * URINE MICROSCOPIC ONLY REFLEX TO CULTURE(Performed 04/21/2024) Performed for Stage 3 chronic kidney disease, unspecified whether stage 3a or 3b CKD ([facility]) * MICROALB/CREAT RATIO URINE RANDOM PANEL(Performed 04/21/2024) Performed for Stage 3 chronic kidney disease, unspecified whether stage 3a or 3b CKD ([facility]) * URINALYSIS REFLEX MICROSCOPIC REFLEX CULTURE(Performed 04/21/2024) Performed for Stage 3 chronic kidney disease, unspecified whether stage 3a or 3b CKD (HCC) * VITAMIN D 25-HYDROXY(Performed 04/21/2024) Performed for Stage 3 chronic kidney disease, unspecified whether stage 3a or 3b CKD ([facility]) * PTH INTACT W/O CALCIUM(Performed 04/21/2024) Performed for Stage 3 chronic kidney disease, unspecified whether stage 3a or 3b CKD ([facility]) * HEMOGLOBIN A1C(Performed 04/21/2024) Performed for Stage 3 chronic kidney disease, unspecified whether stage 3a or 3b CKD ([facility]) * URIC ACID BLOOD(Performed 04/21/2024) Performed for Stage 3 chronic kidney disease, unspecified whether stage 3a or 3b CKD ([facility]) * RENAL FUNCTION PANEL(Performed 04/21/2024) Performed for Stage 3 chronic kidney disease, unspecified whether stage 3a or 3b CKD ([facility]) * CBC W AUTO DIFFERENTIAL(Performed 04/21/2024) Performed for Stage 3 chronic kidney disease, unspecified whether stage 3a or 3b CKD ([facility]) * DEXA BONE DENSITY AXIAL SKELETON(Performed 04/21/2024) Performed for Hyperparathyroidism ([facility]) * LAB RESULTS ORDER(Performed 03/09/2024) * PROC UROFLOWMETRY(Performed 02/25/2024) Performed for S/P TURP * MI MSR PVR U&/BLADD CAPCTY US NON(Performed 02/25/2024) Performed for S/P TURP * URINALYSIS AUTO - POINT OF CARE (AMB) [facility](Performed 02/25/2024) Performed for S/P TURP * MI TANGNTL BX SKIN SINGLE LES(Performed 01/29/2024) Performed for Neoplasm of uncertain behavior of skin * MI DESTROY PREMALIG LESION, 2-14(Performed 01/29/2024) Performed for Actinic keratosis * MI DESTROY PREMALIG LESION, 1ST LESION(Performed 01/29/2024) Performed for Actinic keratosis * DERMATOPATHOLOGY(Performed 01/29/2024) Performed for Neoplasm of uncertain behavior of skin * CARDIAC PROCEDURE ORDER(Performed 01/25/2024) * MI PM DEVICE PROGR EVAL DUAL(Performed 01/12/2024) Performed for SSS (sick sinus syndrome) ([facility]) * PTH RELATED PEPTIDE(Performed 09/28/2023) * VITAMIN D 1,25 DIHYDROXY(Performed 09/28/2023) * PTH INTACT(Performed 09/28/2023) * MICROALB/CREAT RATIO URINE RANDOM PANEL(Performed 09/28/2023) * VITAMIN D 25-HYDROXY(Performed 09/28/2023) * LIPID PROFILE(Performed 09/28/2023) * BASIC METABOLIC PANEL (CALCIUM TOTAL)(Performed 09/28/2023) * PROC UROFLOWMETRY(Performed 09/25/2023) Performed for Pain in both testicles * MI MSR PVR U&/BLADD CAPCTY US NON(Performed 09/25/2023) Performed for Pain in both testicles * URINALYSIS AUTO - POINT OF CARE (AMB) [facility](Performed 09/25/2023) Performed for Pain in both testicles * MI POLYSOM 6/>YRS CPAP 4/> PARM(Performed 09/02/2023) Performed for AGNIESZKA (obstructive sleep apnea), Sleep related hypoxia, Excessive daytime sleepiness, Chronic fatigue, Insomnia secondary to chronic pain, Restless legs syndrome (RLS), Neuropathy, Nightmares, Confusional arousals, Sleep related rhythmic movement disorder, Gastroesophageal reflux disease, unspecified whether esophagitis present, Chronic obstructive pulmonary disease, unspecified COPD type (HCC), Decreased hearing of both ears, Chronic bilateral low back pain with left-sided sciatica, History of CVA with residual deficit, Memory disturbance, Obesity, Class I, BMI 30-34.9, Intolerance of continuous positive airway pressure (CPAP) ventilation * CARDIAC PROCEDURE ORDER(Performed 07/09/2023) * ECHO COMPLETE(Performed 07/03/2023) Performed for Coronary artery disease involving [place] coronary artery of [place] heart without angina pectoris * PROC IMPLANT WEAR CARDIAC DEVICE EVAL(Performed 07/03/2023) Performed for Cardiac pacemaker in situ * CT CHEST WO CONT AND HIRES(Performed 06/18/2023) Performed for Abnormal CT of the chest * COMPLETE PFT W/WO BRONCHODILATOR(Performed 06/18/2023) Performed for Dyspnea on exertion * MI PM/ICD REMOTE TECH SERV(Performed 05/23/2023) Performed for Cardiac pacemaker in situ * MI PM DEVICE INTERROGATE REMOTE(Performed 05/23/2023) Performed for Cardiac pacemaker in situ * PROC UROFLOWMETRY(Performed 05/21/2023) Performed for S/P TURP * MI MSR PVR U&/BLADD CAPCTY US NON(Performed 05/21/2023) Performed for S/P TURP * URINALYSIS AUTO - POINT OF CARE (AMB) [facility](Performed 05/21/2023) Performed for S/P TURP * HEMOGLOBIN A1C - POINT OF CARE (AMB) [facility](Performed 04/02/2023) Performed for Type 2 diabetes mellitus without complication, unspecified whether long chain quiller tender insulin use ([facility]) * CARDIAC PROCEDURE ORDER(Performed 04/02/2023) * MI PM DEVICE INTERROGATE REMOTE(Performed 01/31/2023) Performed for SSS (sick sinus syndrome) ([facility]), Cardiac pacemaker in situ * MI PM/ICD REMOTE TECH SERV(Performed 01/31/2023) Performed for SSS (sick sinus syndrome) ([facility]), Cardiac pacemaker in situ * MI CYSTOURETHROSCOPY(Performed 01/15/2023) Performed for Urine stream spraying, Painful urination * MI MSR PVR U&/BLADD CAPCTY US NON(Performed 01/15/2023) Performed for Pain in testicle, unspecified laterality * MI ELECTRO-UROFLOWMETRY, FIRST(Performed 01/15/2023) Performed for Pain in testicle, unspecified laterality * CT ABDOMEN PELVIS WWO CONTRAST(Performed 01/15/2023) Performed for Pain in testicle, unspecified laterality, Painful urination, Urine stream spraying, S/P TURP * CREATININE - POCT INTERFACED(Performed 01/15/2023) * LIPID PROFILE(Performed 01/13/2023) * CARDIAC PROCEDURE ORDER(Performed 01/06/2023) * MI PM DEVICE PROGR EVAL SNGL(Performed 01/01/2023) Performed for SSS (sick sinus syndrome) ([facility]) * PERIPHERAL NEUROPATHY PANEL(Performed 12/30/2022) Performed for Neuropathy * CARDIAC PROCEDURE ORDER(Performed 12/18/2022) * MI INJECT NERV BLCK,ILIOINGU/ILIOHYP(Performed 11/26/2022) Performed for Pain in testicle, unspecified laterality * URINALYSIS AUTO - POINT OF CARE (AMB) [facility](Performed 10/29/2022) Performed for Urinary frequency * PATHOLOGY/CYTOLOGY REPORT ORDER(Performed 10/29/2022) * URINALYSIS AUTO - POINT OF CARE (AMB) [facility](Performed 10/07/2022) Performed for Pain in testicle, unspecified laterality * MI BLDR INSTLJ ANTICARCINOGENIC AGT(Performed 10/01/2022) Performed for Urinary frequency, Dysuria * LAB RESULTS ORDER(Performed 10/01/2022) * HEMOGLOBIN A1C - POINT OF CARE (AMB) [facility](Performed 09/29/2022) Performed for Type 2 diabetes mellitus with other circulatory complication, with long-term current use of insulin ([facility]) * MI IRRIGATION OF BLADDER(Performed 09/17/2022) Performed for Painful urination * MI PM/ICD REMOTE TECH SERV(Performed 08/19/2022) Performed for SSS (sick sinus syndrome) ([facility]), Cardiac pacemaker in situ * MI PM DEVICE INTERROGATE REMOTE(Performed 08/19/2022) Performed for SSS (sick sinus syndrome) ([facility]), Cardiac pacemaker in situ * CARDIAC PROCEDURE ORDER(Performed 08/15/2022) * HEMOGLOBIN A1C - POINT OF CARE (AMB) [facility](Performed 05/19/2022) Performed for Type 2 diabetes mellitus without complication, unspecified whether half-way insulin use ([facility]) * OPH OCT TEST [facility](Performed 04/15/2022) Performed for Diabetes mellitus without ophthalmic manifestations ([facility]) * CARDIAC PROCEDURE ORDER(Performed 03/04/2022) * PHOSPHORUS (EXTERNAL RESULT ENTRY)(Performed 12/26/2021) * PTH (EXTERNAL RESULT ENTRY)(Performed 12/26/2021) * VITAMIN D HYDROXY (EXTERNAL RESULT)(Performed 12/26/2021) * HEMOGLOBIN A1C (EXTERNAL RESULT ENTRY)(Performed 12/26/2021) * CREATININE RAND UR (EXTERNAL RESULT ENTRY)(Performed 12/26/2021) * LIPID PROFILE (EXTERAL RESULT ENTRY)(Performed 12/26/2021) * URINALYSIS (EXTERNAL RESULT ENTRY)(Performed 12/26/2021) * COMP MET PANEL (EXTERNAL RESULT ENTRY)(Performed 12/26/2021) * CBC W DIFF (EXTERNAL RESULT ENTRY)(Performed 12/26/2021) * URINE CULTURE (EXTERNAL RESULT ENTRY)(Performed 12/26/2021) * MI EXC SKIN BENIG 1.1-2CM FACE,FACIAL(Performed 12/16/2021) Performed for Neoplasm of uncertain behavior of skin * MI INTMD WND REPAIR FACE,FACIAL <2.5CM(Performed 12/16/2021) Performed for Neoplasm of uncertain behavior of skin * MI DESTR MALIG TRUNK,EXTREM 1.1-2 CM(Performed 12/16/2021) 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) * URINALYSIS AUTO - POINT OF CARE (AMB) [facility](Performed 11/08/2021) Performed for Dysuria * CARDIAC PROCEDURE ORDER(Performed 10/10/2021) * LAB RESULTS ORDER(Performed 10/09/2021) * PROC IMPLANT WEAR CARDIAC DEVICE EVAL(Performed 10/07/2021) Performed for SSS (sick sinus syndrome) ([facility]) * LAB RESULTS ORDER(Performed 09/27/2021) * LAB RESULTS ORDER(Performed 09/27/2021) * MI TANGNTL BX SKIN SINGLE LES(Performed 09/13/2021) Performed for Neoplasm of uncertain behavior of skin * MI TANGNTL BX SKIN EA SEP ADDL(Performed 09/13/2021) Performed for Neoplasm of uncertain behavior of skin * MI TANGNTL BX SKIN EA SEP ADDL(Performed 09/13/2021) Performed for Neoplasm of uncertain behavior of skin * URINALYSIS AUTO - POINT OF CARE (AMB) [facility](Performed 09/13/2021) Performed for Pain in testicle, unspecified laterality * DERMATOPATHOLOGY(Performed 09/13/2021) Performed for Neoplasm of uncertain behavior of skin * HEMOGLOBIN A1C(Performed 08/19/2021) * LIPID PROFILE(Performed 08/19/2021) * PATHOLOGY/CYTOLOGY REPORT ORDER(Performed 06/12/2021) * URINALYSIS AUTO - POINT OF CARE (AMB) [facility](Performed 06/07/2021) Performed for Pain in testicle, unspecified laterality * LAB RESULTS ORDER(Performed 05/24/2021) * LIPID PROFILE(Performed 05/23/2021) * HEMOGLOBIN A1C(Performed 05/23/2021) * LAB RESULTS ORDER(Performed 03/11/2021) * MI CYSTOURETHROSCOPY(Performed 03/10/2021) Performed for Dysuria, Urine stream spraying * URINALYSIS AUTO - POINT OF CARE (AMB) [facility](Performed 03/08/2021) Performed for Pain in testicle, unspecified laterality * TESTOSTERONE TOTAL FEM/CHLD HYPOGNDL MALE(Performed 02/28/2021) * URINALYSIS AUTO - POINT OF CARE (AMB) [facility](Performed 02/11/2021) Performed for Pain in testicle, unspecified laterality * HEMOGLOBIN A1C(Performed 12/18/2020) Performed for Diabetic polyneuropathy associated with type 2 diabetes mellitus (HCC) * CARDIAC EKG ORDER(Performed 07/11/2020) * GLUCOSE - POINT OF CARE(Performed 07/10/2020) * XR CHEST 1VW PORTABLE(Performed 07/10/2020) Performed for Syncope and collapse * EKG 12-LEAD(Performed 07/10/2020) Performed for Syncope and collapse * DIFFERENTIAL MANUAL(Performed 07/10/2020) * B-TYPE NATRIURETIC PEPTIDE(Performed 07/10/2020) * PTT [facility](Performed 07/10/2020) * TROPONIN I(Performed 07/10/2020) * PHOSPHORUS BLOOD(Performed 07/10/2020) * CBC W AUTO DIFFERENTIAL(Performed 07/10/2020) * MAGNESIUM BLOOD(Performed 07/10/2020) * PT-INR [facility](Performed 07/10/2020) * COMPREHENSIVE METABOLIC PANEL(Performed 07/10/2020) * XR LUMBAR SPINE 2 OR 3VW(Performed 12/13/2018) Performed for Low back pain, unspecified back pain laterality, unspecified chronicity, with sciatica presence unspecified * XR SPINE ENTIRE 2 OR 3VW(Performed 09/23/2018) Performed for Chronic bilateral low back pain without sciatica * IR FACET LUMBAR UNILATERAL(Performed 05/17/2018) Performed for Neurogenic claudication due to lumbar spinal stenosis * IR LEXX LUMBAR DIRECT APPROACH(Performed 11/17/2017) Performed for Lumbar radiculopathy * CT ANGIO BRAIN AND NECK(Performed 08/10/2017) * CREATININE BLOOD - POCT (IP) SL(Performed 08/10/2017) * FL MYELOGRAM LUMBAR(Performed 07/20/2017) * CT LUMBAR POST MYELOGRAM(Performed 07/20/2017) * GLUCOSE ACCUCHECK(Performed 07/20/2017) * XR LUMBAR SPINE 4VW OR MORE(Performed 06/18/2017) Results * (ABNORMAL) URINE MICROSCOPIC ONLY REFLEX TO CULTURE (09/01/2024 11:37 AM TIME CLERK) Only the most recent of2 resultswithin the time period is included. Reflex Status Culture not indicated 09/01/2024 12:36 PM TIME CLERK [facility] LABORATORY [facility] WBC UA 0-5 None Seen, 0-5 /HPF 09/01/2024 12:36 PM TIME CLERK [facility] Squamous Epithelial Cells UA 0-2 None Seen, 0-2, 3-5 /HPF 09/01/2024 12:36 PM [facility] Mucus UA 1+ /LPF 09/01/2024 12:36 PM [facility] Hyaline Casts UA 3-5(A) None Seen, 0-2 /LPF 09/01/2024 12:36 PM [facility] Urine URINE SPECIMEN OBTAINED BY CLEAN CATCH PROCEDURE / Unknown Collection / Unknown 09/01/2024 11:37 AM TIME CLERK 09/01/2024 12:05 PM TIME CLERK [facility] - 09/01/2024 12:36 PM TIME CLERK Nataliia Cooper MD LAB - URINALYSIS ORD ERABLES [facility] [address] [place] [phone], [facility] [phone] * (ABNORMAL) URINALYSIS REFLEX MICROSCOPIC REFLEX CULTURE (09/01/2024 11:37 AM TIME CLERK) Only the most recent of2 resultswithin the time period is included. Color UA Yellow Straw, Yellow 09/01/2024 12:13 PM [facility] Clarity UA Slt Cloudy(A) Clear 09/01/2024 12:13 PM [facility] Specific [place] UA 1.026 1.005 - 1.030 09/01/2024 12:13 PM [facility] pH UA 5.0 5.0 - 8.0 pH 09/01/2024 12:13 PM [facility] Protein UA 2+(A) Negative 09/01/2024 12:13 PM [facility] Glucose UA 3+(A) Negative 09/01/2024 12:13 PM [facility] Ketone UA Negative Negative 09/01/2024 12:13 PM [facility] Bilirubin UA Negative Negative 09/01/2024 12:13 PM [facility] Blood UA Negative Negative 09/01/2024 12:13 PM [facility] Nitrite UA Negative Negative 09/01/2024 12:13 PM [facility] Leukocyte Esterase Negative Negative 09/01/2024 12:13 PM [facility] Urobilinogen UA Negative Negative mg/dL 09/01/2024 12:13 PM [facility] Urine URINE SPECIMEN OBTAINED BY CLEAN CATCH PROCEDURE / Unknown Collection / Unknown 09/01/2024 11:37 AM TIME CLERK 09/01/2024 12:05 PM TIME CLERK Narrative [facility] - 09/01/2024 12:13 PM TIME CLERK Nataliia Cooper MD LAB - URINALYSIS ORD ERABLES Performing Organization Address City/[facility]/ZIP Co de Phone Number [facility] [address] [place] [address], [place] [phone] * (ABNORMAL) MICROALB/CREAT RATIO URINE RANDOM PANEL (09/01/2024 11:37 AM TIME CLERK) Only the most recent of3 resultswithin the time period is included. Albumin Random Urine 755.4 Not Established ug/mL 09/01/2024 12:59 PM [facility] Comment:Result obtained by julio barrett. Creatinine Urine 161.04 Not Established mg/dL 09/01/2024 12:59 PM [facility] Urine Albumin/Creati nine Ratio 469(H) <30 mg/g 09/01/2024 12:59 PM [facility] Urine URINE SPECIMEN OBTAINED BY CLEAN CATCH PROCEDURE / Unknown Collection / Unknown 09/01/2024 11:37 AM TIME CLERK 09/01/2024 12:10 PM TIME CLERK Nataliia Cooper MD LAB - URINE CHEMISTR Y ORDERABLES Performing Organization Address [facility]/ZIP Co de Phone Number [address] [address], [place] [phone] * (ABNORMAL) PTH INTACT W/O CALCIUM (09/01/2024 11:07 AM TIME CLERK) Only the most recent of2 resultswithin the time period is included. PTH Intact 203.7(H) 8.0 - 77.0 pg/mL 09/01/2024 12:15 PM [facility] Blood BLOOD SPECIMEN / Unknown Lab Venipuncture / Unknown 09/01/2024 11:07 AM TIME CLERK 09/01/2024 11:42 AM TIME CLERK Nataliia Cooper MD LAB - CHEMISTRY SERENA PAGE Performing Organization Address City/[facility]/ZIP Co de Phone Number [facility] [address] [place] [phone], [facility] [phone] * (ABNORMAL) URIC ACID BLOOD (09/01/2024 11:07 AM TIME CLERK) Only the most recent of2 resultswithin the time period is included. Uric Acid 7.3(H) 3.5 - 7.2 mg/dL 09/01/2024 12:14 PM [facility] Blood BLOOD SPECIMEN / Unknown Lab Venipuncture / Unknown 09/01/2024 11:07 AM TIME CLERK 09/01/2024 11:42 AM TIME CLERK Nataliia Cooper MD LAB - CHEMISTRY SERENA PAGE Performing Organization Address [facility]/ZIP Co de Phone Number [address] [address], [facility] [phone] * (ABNORMAL) HEMOGLOBIN A1C (09/01/2024 11:07 AM TIME CLERK) Only the most recent of5 resultswithin the time period is included. Hemoglobin A1c 7.7(H) <=5.6 % 09/01/2024 1:10 PM [facility] Estimated Average Glucose 174 mg/dL 09/01/2024 1:10 PM [facility] Comment: HbA1c Interpretation: Normal : < 5.7% Pre-diabetes: 5.7-6.4% Diabetes: Equal to or greater than 6.5% Test results diagnostic of diabetes should be repeated for confirmation. Treatment target values recommended by ADA and other clinical organizations should be used to evaluate metabolic control in patients. Reference: [place] [employer], Standards of Care in Diabetes -2020 In patients 70 years and older consider HbA1c target range of 7.0-7.5% (Reference: Vickey Moser et al. JAMDA. 2012) The Sebia assay for the measurement of HbA1c is a National Glycohemoglobin Standardization Program (NGSP) certified method. Blood BLOOD SPECIMEN / Unknown Lab Venipuncture / Unknown 09/01/2024 11:07 AM TIME CLERK 09/01/2024 11:42 AM TIME CLERK Nataliia Cooper MD LAB - CHEMISTRY SERENA PAGE Performing Organization Address City/[facility]/ZIP Co de Phone Number [facility] [address] [place] [address], [facility] [phone] * VITAMIN D 25-HYDROXY (09/01/2024 11:07 AM TIME CLERK) Only the most recent of3 resultswithin the time period is included. Vitamin D, 25 Hydroxy 43.2 30.0 - 80.0 ng/mL 09/01/2024 12:32 PM TIME CLERK [facility] Comment: The recommendations for 25-Hydroxy Vitamin [...] Lab Venipuncture / Unknown 09/01/2024 11:07 AM TIME CLERK 09/01/2024 11:42 AM TIME CLERK Nataliia Cooper MD LAB - CHEMISTRY SERENA PAGE Performing Organization Address City/[facility]/ZIP Co de Phone Number [facility] [address] [place] [phone], [facility] [phone] * (ABNORMAL) CBC WITH DIFFERENTIAL (09/01/2024 11:07 AM TIME CLERK) Only the most recent of3 resultswithin the time period is included. WBC 11.8(H) 4.0 - 10.7 x10E9/L 09/01/2024 11:56 AM [facility] RBC Count 4.20(L) 4.30 - 5.80 x10E12/L 09/01/2024 11:56 AM [facility] Hemoglobin 14.7 13.3 - 17.5 g/dL 09/01/2024 11:56 AM [facility] Hematocrit 44.0 38.7 - 51.1 % 09/01/2024 11:56 AM [facility] MCV 104.8(H) 80.0 - 98.0 fL 09/01/2024 11:56 AM [facility] MCH 35.0(H) 26.7 - 33.6 pg 09/01/2024 11:56 AM [facility] MCHC 33.4 31.7 - 36.3 g/dL 09/01/2024 11:56 AM [facility] RDW-CV 14.6 11.3 - 14.8 % 09/01/2024 11:56 AM [facility] Platelet Count 285 150 - 420 x10E9/L 09/01/2024 11:56 AM [facility] MPV 10.3 7.8 - 11.4 fL 09/01/2024 11:56 AM [facility] Neutrophil % 49.1 41.0 - 74.0 % 09/01/2024 11:56 AM [facility] Lymphocyte % 38.5 17.0 - 47.0 % 09/01/2024 11:56 AM [facility] Monocyte % 7.1 3.0 - 11.0 % 09/01/2024 11:56 AM [facility] Eosinophil % 4.0 0.0 - 7.0 % 09/01/2024 11:56 AM [facility] Basophil % 0.8 0.0 - 1.6 % 09/01/2024 11:56 AM [facility] Immature Granulocytes % 0.5 0.0 - 1.0 % 09/01/2024 11:56 AM [facility] Neutrophil Absolute 5.82 1.60 - 7.50 x10E9/L 09/01/2024 11:56 AM [facility] Lymphocyte Absolute 4.56(H) 1.00 - 4.40 x10E9/L 09/01/2024 11:56 AM [facility] Monocyte Absolute 0.84 0.15 - 1.00 x10E9/L 09/01/2024 11:56 AM [facility] Eosinophil Absolute 0.47 0.00 - 0.60 x10E9/L 09/01/2024 11:56 AM [facility] Basophil Absolute 0.09 0.00 - 0.13 x10E9/L 09/01/2024 11:56 AM [facility] Blood BLOOD SPECIMEN / Unknown Lab Venipuncture / Unknown 09/01/2024 11:07 AM TIME CLERK 09/01/2024 11:42 AM TIME CLERK Nataliia Cooper MD LAB - HEMATOLOGY ORD ERABLES [facility] [address] [place] [address], [facility] [phone] * (ABNORMAL) RENAL FUNCTION PANEL (09/01/2024 11:07 AM [facility]) Only the most recent of2 resultswithin the time period is included. BUN 27(H) 7 - 26 mg/dL 09/01/2024 12:14 PM [facility] Creatinine 2.02(H) 0.71 - 1.16 mg/dL 09/01/2024 12:14 PM [facility] Sodium 141 136 - 145 mmol/L 09/01/2024 12:14 PM [facility] Potassium 4.6(H) 3.5 - 4.5 mmol/L 09/01/2024 12:14 PM [facility] Chloride 107 98 - 107 mmol/L 09/01/2024 12:14 PM [facility] CO2 27 22 - 29 mmol/L 09/01/2024 12:14 PM [facility] Glucose 154(H) 70 - 99 mg/dL 09/01/2024 12:14 PM [facility] Albumin 3.9 3.4 - 5.0 g/dL 09/01/2024 12:14 PM [facility] Calcium 11.3(H) 8.4 - 10.2 mg/dL 09/01/2024 12:14 PM [facility] Phosphorus 2.9 2.8 - 5.1 mg/dL 09/01/2024 12:14 PM [facility] Anion Gap 7 6 - 16 09/01/2024 12:14 PM [facility] BUN/Creatinine Ratio 13 7 - 23 09/01/2024 12:14 PM [facility] Osmolality Calculated 300(H) 275 - 295 mOsm/kg 09/01/2024 12:14 PM [facility] eGFR by CKD-EPI 36(L) >=90 mL/min/1.7 3 m2 09/01/2024 12:14 PM [facility] Blood BLOOD SPECIMEN / Unknown Lab Venipuncture / Unknown 09/01/2024 11:07 AM TIME CLERK 09/01/2024 11:42 AM TIME CLERK Nataliia Cooper MD LAB - CHEMISTRY ORDDominique PAGE [facility] Organization Address City/State/ZIP Co de Phone Number [facility] [address] [place] [address], [facility] [phone] * US Retroperitoneal Complete (09/01/2024 9:37 AM TIME CLERK) Anatomical Region Laterality Modality Abdomen Ultrasound 09/01/2024 9:45 AM TIME CLERK Impressions 09/01/2024 9:50 AM TIME CLERK Impression: 1. Normal-sized kidneys with normal echogenicity. 2. No hydronephrosis or nephrolithiasis. > Interpreting Provider: Denae Grijalva MD on 09/01/2024 9:50 AM Narrative 09/01/2024 9:50 AM TIME CLERK PROCEDURE: US RETROPERITONEAL COMPLETE DATE/TIME OF [...] AM Nataliia Cooper MD US ORDERABLES * MI DESTR MALIG TRUNK,EXTREM 0.6-1 CM (08/26/2024 9:26 AM TIME CLERK) Narrative Robb Howell MD - 08/26/2024 9:26 AM TIME CLERK Amandeep Helton MD 08/26/2024 9:41 AM [...] tolerated the procedure well. Amandeep Helton MD [facility] Dermatology Resident Robb Howell MD PROCEDURE/MINOR SURG ICAL ORDERABLES * MI DESTR MALIG TRUNK,EXTREM 0.6-1 CM (08/17/2024 12:25 PM TIME CLERK) Narrative Robb Howell MD - 08/17/2024 12:25 PM TIME CLERK Guy Gómez MD 08/17/2024 12:26 PM [...] Howell MD PROCEDURE/MINOR SURG ICAL ORDERABLES * MI DESTROY PREMALIG LESION, 1ST LESION (08/17/2024 12:25 PM TIME CLERK) Narrative Robb Howell MD - 08/17/2024 12:25 PM TIME CLERK Guy Gómez MD 08/17/2024 12:25 PM Diagnosis and treatment options discussed. Cryotherapy (Liquid Nitrogen) to 1 lesion for 4-6 seconds. Number of cycles: 1. Wound care reviewed. Robb Howell MD PROCEDURE/MINOR SURG ICAL ORDERABLES * MI TANGNTL BX SKIN SINGLE LES (08/17/2024 12:24 PM TIME CLERK) Narrative Robb Howell MD - 08/17/2024 12:24 PM TIME CLERK Guy Gómez MD 08/17/2024 12:24 PM [...] ICAL ORDERABLES * DERMATOPATHOLOGY (08/17/2024 3:33 AM TIME CLERK) Only the most recent of4 resultswithin the time period is included. Case Report Dermatopathology Report Case: [id number] Authorizing Provider: Robb Howell MD Collected: 08/17/2024 03:33 AM Ordering Location: [facility] - Received: 08/18/2024 11:05 AM General Dermatology Pathologist: Rose Soto MD Specimen: Skin, left forearm 1:26 PM TIME CLERK DERMATOPATHOLOGY LABORATORY Final Diagnosis Specimen A. 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 The specimen consists of a shave biopsy measuring [id number] mm. Jar 0. 1:26 PM [facility] DERMATOPATHOLOGY LABORATORY Microscopic Description Specimen A. SKIN, left forearm: The epidermis shows parakeratosis, full thickness disorderly maturation of keratinocytes, mitoses at different levels, and dyskeratotic cells. 1:26 PM [facility] DERMATOPATHOLOGY LABORATORY Disclaimer An external and internal positive and negative controls are appropriate for the histochemical, immunohistochemical and immunofluorescence stain(s) in this case (if any), except where stated explicitly. The performance characteristics of the stain(s) cited in this report were developed and its performance characteristic determined by the Dermatopathology Laboratory at [facility], directed by Dr. Barbara Becker. These tests need not be, and therefore are not, approved by the [place] Food and Drug Administration. The tests are used for clinical purposes. Billing Codes Specimen Charges Stain Charges 41696 1 1:26 PM [facility] DERMATOPATHOLOGY LABORATORY Embedded Images 1:26 PM [facility] DERMATOPATHOLOGY LABORATORY Pathology/Cytolo gy TISSUE SPECIMEN FROM SKIN / Unknown 08/17/2024 3:33 AM TIME CLERK 08/18/2024 11:05 AM TIME CLERK Robb Howell MD LAB - PATHOLOGY/CYTO LOGY ORDERABLES DERMATOPATHOLOGY LABORATORY [facility] Department of Dermatology [address] [phone] * CARDIAC PROCEDURE ORDER (07/26/2024) Only the most recent of11 resultswithin the time period is included. Narrative 07/26/2024 Ordered by an unspecified provider. Scanned Document CARDIAC SERVICES ORD ERABLES * MI PM DEVICE PROGR EVAL DUAL (07/19/2024 8:47 AM TIME CLERK) Narrative Daily Bravo MD - 07/19/2024 8:47 AM TIME CLERK Daily Bravo MD 07/19/2024 8:49 AM This is a 64 year old male with a H/O sick sinus syndrome . The patient received a Medtronic Advisa DR dual chamber pacemaker on 09/23/16. The patients device is functioning appropriately according to the engineering administrator's recommendations with appropriate battery voltage, charge time, shock impedance (s), lead impedance (s) along with pacing and sensing thresholds. The patient will be scheduled for 3 month remote follow-up. Instructed to call with questions or problem. Daily Bravo MD PROCEDURE/MINOR SURG ICAL ORDERABLES * EKG 12-LEAD (07/19/2024 8:11 AM TIME CLERK) Only the most recent of2 resultswithin the time period is included. Ventricular Rate 71 BPM [facility] MUSE Atrial Rate 71 BPM [facility] P-R Interval 244 ms [facility] QRS Duration ms 194 ms [facility] MUSE Q-T Interval ms 446 ms [facility] MUSE QTC Calculation (Bezet) 484 ms [facility] MUSE Calculated R Bergoo -85 degrees [facility] MUSE Calculated T [place]oo 34 degrees [facility] MUSE Interpretation EKG [...] QUINCY, DAILY ([id number]) on 07/19/2024 1:27:54 PM SLMALINDA MUSE 07/19/2024 8:11 AM TIME CLERK 07/19/2024 1:27 PM TIME CLERK Daily Bravo MD ECG ORDERABLES [facility] ACE[facility] * CT LUNG CANCER SCREEN LOW DOSE (06/14/2024 1:47 PM TIME CLERK) Anatomical Region Laterality Modality Chest Computed Tomogra phy 06/14/2024 3:19 PM TIME CLERK Impressions 06/14/2024 8:13 PM TIME CLERK Impression: No pulmonary nodules identified. Lung-RADS [...] Cancer. > Dictated by Naz Roblero MD, (residential assistant). I, Ruel Whitehead MD have personally reviewed and interpreted this examination/study. > Interpreting Provider: Ruel Whitehead MD on 06/14/2024 8:13 PM Narrative 06/14/2024 8:13 PM TIME CLERK PROCEDURE: CT LUNG SCREEN LOW DOSE [...] Cancer. > Dictated by Naz Roblero MD, (residential assistant). IRuel MD have personally reviewed and interpreted this examination/study. > Interpreting Provider: Ruel Whitehead MD on 06/14/2024 8:13 [address] MD CT ORDERABLES * MI PM DEVICE INTERROGATE REMOTE, MI PM/ICD REMOTE TECH SERV (06/04/2024 5:04 PM CDT) Narrative Reid Da Silva MD - 06/04/2024 5:04 PM CDT Reid Da Silva MD 06/04/2024 5:05 PM Dear Basilio Riley, I reviewed the remote interrogation of your device. Your device's sensing and capture thresholds are appropriate and stable. Lead impedances for your device: Atrial lead: 399 ohms RV lead: 399 ohms You are currently paced <0.1% in the atrial and <0.1% in the ventricle. During this most recent monitored period (01/12/2024 to 04/22/2024), you had no arrhythmias. The estimated remaining battery life for your device is 3.5 years. Device function is normal, and no programming changes are required. Please call our offices if you have any further questions. Sincerely, Reid Da Silva 06/04/2024 Reid Da Silva MD PROCEDURE/MINOR SURG ICAL ORDERABLES * BONE DENSITY AXIAL SKELETON(1OR MORE SITES)[id number] (04/21/2024 1:06 PM CDT) Anatomical Region Laterality Modality Other 04/21/2024 1:26 PM CDT Narrative 04/21/2024 2:04 PM CDT PROCEDURE: DEXA BONE DENSITY AXIAL SKELETON DATE/TIME OF EXAM: 04/21/2024 1:06 PM Indication: E21.3: Hyperparathyroidism (HCC) COMPARISON: None. LUMBAR SPINE (L1-L4): Bone mineral density (g/cm2): 1.034 Current T-score: -0.5 LEFT FEMORAL NECK: Bone mineral density (g/cm2): 0.765 Current T-score: -1.2 Left Forearm (no comparison, new protocol): Bone mineral density (g/cm2): 0.841 Current T-score: 0.4 BONE DENSITY ASSESSMENT: WHO Category: Osteopenia. FRAX CALCULATION The 10-year risk for a major osteoporotic fracture, %: 5.1 The 10-year risk for a hip fracture, %: 0.9 Please see the PACS images for additional details. World Health Organization definitions of standard deviations relative to the mean T-score: Normal bone density = -1.0 and above Osteopenia = between -1.0 and -2.5 Osteoporosis = -2.5 and below > Dictated by Helen Murray ([employer] Work[employer]) 04/21/2024 1:26 PM Jase Zhao DO have personally reviewed and interpreted this examination/study. > Interpreting Provider: Jase Howell DO on 04/21/2024 2:04 PM Procedure Note Jase Howell DO - 04/21/2024 PROCEDURE: DEXA BONE DENSITY AXIAL SKELETON DATE/TIME OF EXAM: 04/21/2024 1:06 PM Indication: E21.3: Hyperparathyroidism (HCC) COMPARISON: None. LUMBAR SPINE (L1-L4): Bone mineral density (g/cm2): 1.034 Current T-score: -0.5 LEFT FEMORAL NECK: Bone mineral density (g/cm2): 0.765 Current T-score: -1.2 Left Forearm (no comparison, new protocol): Bone mineral density (g/cm2): 0.841 Current T-score: 0.4 BONE DENSITY ASSESSMENT: WHO Category: Osteopenia. FRAX CALCULATION The 10-year risk for a major osteoporotic fracture, %: 5.1 The 10-year risk for a hip fracture, %: 0.9 Please see the PACS images for additional details. World Health Organization definitions of standard deviations relative to the mean T-score: Normal bone density = -1.0 and above Osteopenia = between -1.0 and -2.5 Osteoporosis = -2.5 and below > Dictated by Helen Murray ([employer] Worker) 04/21/2024 1:26 PM I, Jase Dante, DO have personally reviewed and interpreted this examination/study. > Interpreting Provider: Jase Howell DO on 04/21/2024 2:04 PM Garry JOHNSON ORDERABLES * LAB RESULTS ORDER (03/09/2024) Only the most recent of7 resultswithin the time period is included. 03/09/2024 Narrative 03/09/2024 Ordered by an unspecified provider. Scanned Document LAB - THERAPEUTIC DR LUTZ MONITORING ORDERABLES * PROC UROFLOWMETRY (02/25/2024 8:25 AM CDT) Jazmine Bauer MA - 02/25/2024 8:25 AM CDT Jazmine Dennis MA 02/25/2024 9:04 AM Voiding Time T100 24.0 s Flow Time TQ 23.9 s Time to max Flow TQmax 7.8 s Max Flow Rate Qmax 12.1 Ml/s Average Flow Rate Qave 5.7Ml/s Intervals 1 Voided Volume Vcomp 137ml Josy Davila DO PROCEDURE/MINOR CARABALLO RGICAL ORDERABLES * MI MSR PVR U&/BLADD CAPCTY US NON (02/25/2024 8:24 AM CDT) Jazmine Bauer MA - 02/25/2024 8:24 AM CDT Jazmine Dennis MA 02/25/2024 9:04 AM Bladder scan completed. 130ml post void residual. Josy Davila DO PROCEDURE/MINOR CARABALLO RGICAL ORDERABLES * URINALYSIS AUTO - POINT OF CARE (AMB) [facility] (02/25/2024 8:24 AM CDT) Only the most recent of10 resultswithin the time period is included. Glucose UA 3+ [facility] [address] Bilirubin UA POCT - [facility] [address] Ketones UA POCT - [facility] [address] Specific [place] UA 1.[address] [facility] [address] Blood Urine POCT 1+ [facility] [address] pH UA 6.0 [facility] [address] Protein UA 3+ [facility] [address] Urobilinogen UA - [facility] [address] Nitrite UA - [facility] [address] WBC UA - [facility] [address] Urine URINE / Unknown 02/25/2024 8 :24 AM CDT Josy Davila DO LAB - POINT OF CAR E ORDERABLES ANNIE [address] [place] [address], [facility] [phone] * MI TANGNTL BX SKIN SINGLE LES (01/29/2024 9:43 AM CDT) Narrative Robb Howell MD - 01/29/2024 9:43 AM CDT Jodee Jimenez MD 01/29/2024 9:44 AM Risks, benefits and alternatives to shave biopsy were discussed with the patient. Verbal consent was obtained. Location: right mid forearm Skin prep: Alcohol Anesthesia: 1% lidocaine with epinephrine Hemostasis: Aluminum chloride Dressing and wound care discussed. Specimen(s) placed in a patient labeled container and sent to dermatopathology. Patient agrees to phone call for results and message if not available. Jodee Jimenez MD [facility] Dermatology Resident, PGY3 Robb Howell MD PROCEDURE/MINOR SURG ICAL ORDERABLES * MI DESTROY PREMALIG LESION, 1ST LESION, MI DESTROY PREMALIG LESION, 2-14 (01/29/2024 9:43 AM CDT) Narrative Robb Howell MD - 01/29/2024 9:43 AM CDT Jodee Jimenez MD 01/29/2024 9:43 AM Diagnosis and treatment options discussed. Cryotherapy (Liquid Nitrogen) to 4 lesions (right ear, left cheek, left forearm, nasal dorsum) for 4-6 seconds each. Number of cycles: 1. Wound care reviewed. Jodee Jimenez MD [facility] Dermatology Resident, PGY3 Robb Howell MD PROCEDURE/MINOR SURG ICAL ORDERABLES * MI PM DEVICE PROGR EVAL DUAL (01/12/2024 9:59 AM CDT) Narrative Daily Bravo MD - 01/12/2024 9:59 AM CDT Daily Bravo MD 01/12/2024 10:01 AM This is a 64 year old male with a H/O SSS. The patient received a Medtronic Advisa DR The patients device is functioning appropriately according to the engineering administrator's recommendations with appropriate battery voltage, charge time, shock impedance (s), lead impedance (s) along with pacing and sensing thresholds. The patient will be scheduled for 3 month follow-up. Instructed to call with questions or problem. Daily Bravo MD PROCEDURE/MINOR SURG ICAL ORDERABLES * (ABNORMAL) PTH INTACT (09/28/2023 9:09 AM TIME CLERK) PTH Intact 104(H) 15 - 65 pg/[facility] Comment:FASTING 09/28/2023 9:09 AM TIME CLERK 09/28/2023 Narrative Resulting Agency Comment Lab Testing performed at: [facility] [address] [facility] [phone] Garry Tracey MD LAB - CHEMISTRY SERENA PAGE [facility] INSURANCE BILL [address] [place] [address] * PTH RELATED PEPTIDE (09/28/2023 9:09 AM TIME CLERK) PTH Related Peptide <2.0 pmol/L [facility] INSURANCE BILL Comment: This test was developed and its performance characteristics determined by [facility]. It has not been cleared or approved by the Food and Drug Administration. Reference Range: All Ages: <2.0 The PTHrP assay should not be used to exclude cancer or screen tumor patients for humoral hypercalcemia of malignancy (HHM). The results should always be assessed in conjunction with the patient's medical history, clinical examination, and other findings. If test results are clinically discordant, please contact the laboratory. FASTING 09/28/2023 9:09 AM TIME CLERK 09/28/2023 Narrative [facility] INSURANCE BILL - 10/03/2023 7:10 AM TIME CLERK A courtesy copy of this report has been sent to [phone] Resulting Agency Comment Lab Testing performed at: [facility] [employer] [address] [place] [address] [phone] Garry Tracey MD LAB - CHEMISTRY SERENA PAGE Performing Organization Address City/[facility]/ZIP Co de Phone Number [facility] INSURANCE BILL [address] [place] [address] * VITAMIN D 1,25 DIHYDROXY (09/28/2023 9:09 AM TIME CLERK) Pathologist [facility] Calcitriol (1,25 di-OH Vit D) 44.9 24.8 - 81.5 pg/mL [facility] INSURANCE BILL Comment:FASTING 09/28/2023 9:09 AM TIME CLERK 09/28/2023 Narrative Resulting Agency Comment Lab Testing performed at: [facility] [phone] Garry Tracey MD LAB - CHEMISTRY SERENA PAGE Performing Organization Address City/[facility]/ZIP Co de Phone Number [facility] INSURANCE BILL [address] [place] [address] * (ABNORMAL) BASIC METABOLIC PANEL (CALCIUM TOTAL) (09/28/2023 9:09 AM TIME CLERK) Glucose 169(H) 70 - 99 mg/dL [facility] INSURANCE BILL BUN 27 8 - 27 mg/dL [facility] INSURANCE BILL Creatinine 2.25(H) 0.76 - 1.27 mg/dL [facility] INSURANCE BILL eGFR by CKD-EPI 32(L) >59 mL/min/1.7 3 [facility] INSURANCE BILL BUN/Creatinine Ratio 12 10 - 24 [facility] INSURANCE BILL Sodium 136 134 - 144 mmol/L [facility] INSURANCE BILL Potassium 4.2 3.5 - 5.2 mmol/L [facility] INSURANCE BILL Chloride 97 96 - 106 mmol/L [facility] INSURANCE BILL CO2 23 20 - 29 mmol/L [facility] INSURANCE BILL Calcium 10.6(H) 8.6 - 10.2 mg/dL [facility] INSURANCE BILL Comment:FASTING 09/28/2023 9:09 AM TIME CLERK 09/28/2023 Narrative Resulting Agency Comment [facility]: [facility] [address] [phone] Garry Tracey MD LAB - CHEMISTRY SERENA PAGE Performing Organization Address [facility] Co de Phone Number [facility] INSURANCE BILL [address] [place] [address] * (ABNORMAL) LIPID PROFILE (09/28/2023 9:09 AM TIME CLERK) Only the most recent of4 resultswithin the time period is included. Cholesterol 135 100 - 199 mg/dL [facility] INSURANCE BILL Triglycerides 440(H) 0 - 149 mg/dL [facility] INSURANCE BILL HDL Cholesterol 31(L) >39 mg/dL [facility] INSURANCE BILL VLDL Calculated 64(H) 5 - 40 mg/dL [facility] INSURANCE BILL LDL Calculated 40 0 - 99 mg/dL [facility] INSURANCE BILL Comment NOT AVAILABLE [facility] INSURANCE BILL Comment: FASTING Result cannot be obtained for this observation. 09/28/2023 9:09 AM TIME CLERK 09/28/2023 Narrative Resulting Agency Comment [facility]: [facility] [address] [phone] Garry Tracey MD LAB - CHEMISTRY SERENA PAGE Performing Organization Address [facility] Co de Phone Number [facility] INSURANCE BILL [address] [place] [address] * PROC UROFLOWMETRY (09/25/2023 10:58 AM TIME CLERK) Narrative Santiago Rodgers MA - 09/25/2023 10:58 AM TIME CLERK Santiago Rodgers MA 10/02/2023 7:37 AM Voiding time: 34.3s Flow time: 33.6s Time to peakflow: 12.5s Peak flowrate: 14.2ml/s Average flowrate: 6.7ml/s Intervals:2 Voided volume: 226ml Josy Davila DO PROCEDURE/MINOR CARABALLO RGICAL ORDERABLES * MI MSR PVR U&/BLADD CAPCTY US NON (09/25/2023 10:58 AM TIME CLERK) Santiago Tesfaye MA - 09/25/2023 10:58 AM TIME CLERK Santiago Rodgers MA 10/02/2023 7:37 AM [id number] Josy Davila DO PROCEDURE/MINOR CARABALLO RGICAL ORDERABLES * MI POLYSOM 6/>YRS CPAP 4/> PARM (09/02/2023 10:01 AM TIME CLERK) Marcelo Tucker MD - 09/02/2023 10:01 AM TIME CLERK Marcelo Lim MD 09/02/2023 10:02 AM [facility] Accredited by the [employer] [facility], First Floor [address] [place] [address] Telephone : [phone] Medical Records Patient Name: Basilio Riley : 1960 Date of Study: 09/01/2023 Referring Physician: Dina Cloud PA-C Type of Montage: Respiratory Scoring System: [facility] POLYSOMNOGRAM INTERPRETATION 09/01/2023 Procedure: The polysomnogram was performed with a generation engineering technologist in attendance. Frontal, central, and temporal EEG, EOG, submentalis EMG, oronasal thermistor airflow, nasal pressure transducer airflow, CPAP airflow, thoracic and abdominal respiratory effort by respiratory inductive plethysmography, anterior tibialis EMG, snore sensor, and pulse oximetry were monitored. Sleep stages, periodic limb movements, and EEG arousals were scored in 30-second epochs according to the AASM Scoring Manual. Apnea-hypopnea index was calculated using the recommended definition of hypopnea for scoring events. Data acquisition, collection, and scoring have been validated and clinically correlated. Sleep History: Mr. Basilio Riley, a 63 year old male, was referred to the Sleep Disorders Clinic by Dina Cloud PA-C for the evaluation of suspected obstructive sleep apnea (AGNIESZKA). Current Outpatient Medications: albuterol HFA (ProAir HFA) 108 (90 Base) MCG/ACT inhaler, Inhale 2 (two) puffs by mouth every 4 hours as needed, Disp: 8.5 g, Rfl: 5 amitriptyline (Elavil) 100 MG tablet, Take 1 (one) tablet by mouth once daily, Disp: , Rfl: ammonium lactate (LAC-HYDRIN) 12 % lotion, APPLY TO THE AFFECTED AREA DIRECTED, Disp: , Rfl: aspirin (ASPIRIN) 81 MG chew tablet, aspirin 81 mg chewable tablet CHEW 1 T PO Q DAY, Disp: , Rfl: atorvastatin (LIPITOR) 80 MG tablet, Take 1 (one) tablet by mouth once daily, Disp: , Rfl: Blood Glucose Monitoring Suppl (ACCU-CHEK LAYNE CONNECT) w/Device KIT, Accu-Chek Layne Plus test strips USE 1 STRIP BID, Disp: , Rfl: clopidogrel (PLAVIX) 75 MG tablet, Take 1 (one) tablet by mouth once daily, Disp: , Rfl: Continuous Blood Gluc Rod Drawer (Dexcom G7 Rod Drawer) SHANE, Use 1 kit as directed, Disp: 1 Each, Rfl: 0 Continuous Blood Gluc Sensor (Dexcom G7 Sensor) [facility], Use 1 Each every 10 days, Disp: 3 Each, Rfl: 11 cyanocobalamin (Vitamin B-12) 1000 MCG tablet, Take 1 (one) tablet by mouth once daily, Disp: 180 tablet, Rfl: 1 dulaglutide (Trulicity) 1.5 MG/0.5ML injection, Inject 0.5 mL subcutaneously every 7 days, Disp: 2 mL, Rfl: 11 empagliflozin (Jardiance) 10 MG tablet, Take 1 (one) tablet by mouth once daily, Disp: 30 tablet, Rfl: 11 evolocumab (Repatha) 140 MG/ML prefilled syringe, Inject 140 (one hundred forty) mg subcutaneously every 14 days, Disp: 6 mL, Rfl: 4 famotidine (Pepcid) 20 MG tablet, Take 1 (one) tablet by mouth 2 times daily, Disp: , Rfl: folic acid (FOLVITE) 1 MG tablet, Take by mouth DAILY., Disp: , Rfl: gabapentin (Neurontin) 300 MG capsule, TAKE 3 CAPSULES BY MOUTH EVERY MORNING, 3 CAPSULES EVERY AFTERNOON, AND 4 CAPSULES EVERY NIGHT AT BEDTIME, Disp: 300 capsule, Rfl: 5 HYDROcodone-acetaminophen (NORCO) 5-325 MG tablet, Take 2 (two) tablets by mouth every 6 hours as needed, Disp: , Rfl: hydroxyurea (Hydrea) 500 MG capsule, Take 1 (one) capsule by mouth once daily, Disp: , Rfl: insulin glargine (Lantus/Semglee) 100 units/mL pen, Inject 40 (forty) Units subcutaneously at bedtime, Disp: 15 mL, Rfl: 11 insulin lispro (HumaLOG KwikPen) 100 UNIT/ML pen, Inject 4 (four) Units to 6 (six) Units subcutaneously 2 times daily, before breakfast and supper Check glucose before main meal, 4U if under 200, 6U if over 200 before lunch and dinner, 2U with snack with carbs over 30 gm, total daily 20 U, Disp: 9 mL, Rfl: 11 insulin pen needle (Novofine 31) 31G X 5 MM needle, 1 (one) Each 4 times daily, Disp: 200 Each, Rfl: 11 Insulin Syringes, Disposable, (B-D INSULIN SYRINGE 1CC) U-100 1 ML MISC, insulin syringe U-100 with needle 0.5 mL 31 gauge x 5/16 USE QID WITH LANTUS AND HUMALOG, Disp: , Rfl: ketoconazole (NIZORAL) 2 % cream, , Disp: , Rfl: levETIRAcetam (Keppra) 250 MG tablet, Take 1 (one) tablet by mouth 2 times daily, Disp: , Rfl: lidocaine (Lidoderm) 5 % patch, Apply 1 (one) patch to skin once daily Apply patch to most painful area and remove after 12 hours. May reapply a new patch 12 hours later., Disp: 30 patch, Rfl: 0 lisinopril (Prinivil; Zestril) 20 MG tablet, Take 1 (one) tablet by mouth once daily, Disp: , Rfl: metoprolol succinate XL 24hr (TOPROL XL) 25 MG tablet, Take 1 (one) tablet by mouth once daily, Disp: , Rfl: nicotine (Nicoderm CQ) 21 MG/24HR patch, Apply 1 (one) patch to skin once daily (Patient not taking: Reported on 07/16/2023), Disp: 30 patch, Rfl: 6 nicotine polacrilex (Nicorette) 4 MG gum, Take 1 (one) Each by mouth as needed for Smoking Cessation Reasons: Nicotine Addiction (Patient not taking: Reported on 07/16/2023), Disp: 120 Each, Rfl: 1 ONETOUCH DELICA PLUS 30G FINE LANCETS, Inject 1 Each subcutaneously 3 times daily, Disp: 200 Each, Rfl: 5 ONETOUCH ULTRA test strip, Use 3 times daily, Disp: 200 strip, Rfl: 4 oxyBUTYnin CR 24hr (Ditropan XL) 15 MG tablet, Take 1 (one) tablet by mouth once daily, Disp: 30 tablet, Rfl: 5 sildenafil (Viagra) 100 MG tablet, TAKE 1 TABLET BY MOUTH DIRECTED 1 HOUR PRIOR TO INTERCOURSE, Disp: 30 tablet, Rfl: 0 Spacer/Aero-Holding Chambers (AeroChamber), Inhale by mouth as directed, Disp: 1 Each, Rfl: 5 tamsulosin (Flomax) 0.4 MG capsule, Take 1 (one) capsule by mouth once daily At the same time every day after a meal., Disp: 90 capsule, Rfl: 4 VASCEPA 1 g capsule, Take 1 (one) capsule by mouth 2 times daily with morning and evening meal, Disp: 180 capsule, Rfl: 4 vitamin D, ergocalciferol, (DRISDOL) 1.25 MG (78341 UT) capsule, Take 1 (one) capsule by mouth, Disp: , Rfl: DIAGNOSTIC STUDY Sleep Architecture: During this sleep study, the patient was monitored from 9:44 pm to 6:29 am. During the diagnostic portion, the patient slept for 235 minutes and had decreased sleep efficiency of 47%. The patient's initial sleep latency was prolonged at 58.5 minutes. The initial REM latency was prolonged at 333.5 minutes. The sleep architecture was as follows: stage N1: 78.1%; stage N2: 20.2%; stage N3: 1.7%; stage REM: 0%. 35.5 Respiratory Analysis: The patient's overall apnea-hypopnea index (AHI) was increased at 90.6 per hour while the respiratory effort-related arousal index was increased at 12.5 per hour. The overall respiratory disturbance index (RDI) was 103.1 per hour. The supine AHI was 165.9 per hour and the supine RERA index was 12.5 per hour. The lateral AHI was 181.1 per hour and the lateral RERA index was 29.1 per hour. The REM AHI was 125 per hour while the REM RERA index was 5 per hour. There were 86 obstructive apneas, 24 central apneas, 17 mixed apneas, 228 hypopneas, and 49 respiratory effort-related arousals (RERA). There was no evidence of periodic breathing. Oximetry Data: The minimum oxygen saturation was decreased at 83%. The time spent with oxygen saturation less than 90% was 69 minutes of the total diagnostic sleep time. Snoring Profile: Frequent, [id number] snoring was detected during this study. Periodic Limb Movements: The patient's periodic limb movement index was within normal limits at 5.1 per hour. EEG Profile: The patient's total arousal index was elevated at 104.7 per hour. Virtually all of the arousals were due to respiratory events. There was no epileptiform activity during sleep. Cardiac Profile: EKG showed normal sinus rhythm. No clinically significant arrhythmia was noted. Parasomnias: Post-arousal rhythmic masticatory muscle activity (RMMA) consistent with bruxism was observed. IMPRESSION: 1. Severe obstructive sleep apnea with nocturnal hypoxemia 2. Bruxism THERAPEUTIC PORTION OF STUDY Sleep Architecture: During the therapeutic portion, the patient was monitored for 20 minutes, slept for 0 minutes, and had decreased sleep efficiency of 0%. The patient requested to discontinue the CPAP therapeutic titration because he could not stand it. Respiratory Analysis, Oximetry Data, and Snoring Profile: Continuous positive airway pressure (CPAP) was titrated from a minimum setting of 4 cmH2O to a maximum setting of 6 cmH2O. No sleep was achieved during the brief CPAP therapeutic trial. IMPRESSION: No optimal CPAP level was achieved during this therapeutic CPAP trial due to CPAP intolerance RECOMMENDATIONS: 1. Consider CPAP desensitization therapy 2. Suggest oral appliance therapy if patient is unwilling to try CPAP therapy. 3. Suggest dental evaluation for bruxism Marcelo Lim MD, [facility], [facility] Guest Service Agent, [facility] Professor of Internal Medicine Adjunct Fur Blower Operator of Neurology Division of Pulmonary, Critical Care, and Sleep Medicine [facility] [facility] [employer] This note was electronically signed on 09/02/2023. Amie Payne APNP-LICENSED GUIDE PROCEDUR E/MINOR SURGICAL ORDERABLES * ECHO COMPLETE (07/03/2023 10:51 AM TIME CLERK) BSA [id number] m2 SSM CV FUJ I PACS LV biplane EF 56 52 - 72 % SSM CV FUJI PACS LV A2C EF 55 48 - 76 % SSM CV FUJ I PACS LV A4C EF 56 46 - 74 % SSM CV FUJ I PACS LV stroke vol BP 27.3 mL SSM CV FUJI PACS LV stroke vol BP index 12.2 mL/m2 SSM CV FUJI PACS LVOT stroke vol 68.65 mL SSM CV FUJI PACS LVOT stroke vol index 30.70 mL/m2 SSM CV FUJI PACS LV stroke vol 2D teich 32.347 ml SSM CV FUJI PACS LV Stroke Index 2D Teich 14.47 mL/m2 SSM CV FUJI PACS LV stroke vol index A4C MOD 28.409 ml/m2 SSM CV FUJI PACS LVIDd 3.58 4.2 - 5.8 cm SSM CV FUJI PACS LVIDs 2.46 2.5 - 4.0 cm SSM CV FUJI PACS IVSd 2D 2.013 0.6 - 1 cm SSM CV FUJI PACS LVPWd 1.72 0.6 - 1 cm SSM CV FUJI PACS Fractional Shortening 2D 31 28 - 44 % SSM CV FUJI PACS LV ESV BP 21.275 21 - 61 mL SSM CV FUJI PACS LV ESV index BP 9.5 11 - 31 mL/m2 SSM CV FUJI PACS LV ESV A2C 21.938 15 - 75 mL SSM CV FUJI PACS LV ESV index A2C 9.81 9 - 37 mL/m2 SSM CV FUJI PACS LV EDV BP 48.572 62 - 150 mL SSM CV FUJI PACS LV ESV A4C 21.371 22 - 78 mL SSM CV FUJI PACS LV ESV index A4C 9.56 12 - 40 mL/m2 SSM CV FUJI PACS LV EDV index BP 21.7 34 - 74 mL/m2 SSM CV FUJI PACS LV EDV A2C 47.322 59 - 175 mL SSM CV FUJI PACS LV EDV index A2C 21.16 31 - 87 mL/m2 SSM CV FUJI PACS LV EDV A4C 50.347 mL SSM CV FU JI PACS LV ESV 2D 21.414 21 - 61 mL SSM CV FUJI PACS LV EDV index A4C 22.52 37 - 93 mL/m2 SSM CV FUJI PACS LV ESV index 2D 9.58 11 - 31 mL/m2 SSM CV FUJI PACS LV EDV 2D 53.761 62 - 150 mL SSM CV FUJI PACS LV EDV index 2D 24.04 34 - 74 mL/m2 SSM CV FUJI PACS LVOT diam 2.4 cm SSM CV FUJ I PACS LVOT area 4.44 cm2 SSM CV FUJ I PACS LV RWT 0.963 SSM CV FUJ I PACS LV Rice A2C 7.854 cm SSM CV F UJI PACS LV Rice A4C 8.068 cm SSM CV F UJI PACS IVS/LVPW 1.168 SSM CV [facility] I PACS LV mass 2D 288.551 96 - 200 g SSM CV FUJI PACS LV mass index 2D 129.04 50 - 102 g/m2 SSM CV FUJI PACS MV E pk andrei 52.655 cm/s SSM CV F UJI PACS MV avg E/e' ratio 14.20 SS M CV FUJI PACS MV A pk andrei 68.363 cm/s SSM CV F UJI PACS MV E A ratio 0.77 SSM CV FUJI PACS MV E' lateral andrei 4.09 cm/s SS M CV FUJI PACS MV DT 200 ms SSM CV FUJ I PACS MV E' septal andrei 3.393 cm/s SSM CV FUJI PACS MV E/e' septal 15.519 SSM C V FUJI PACS MV E/e' lateral 12.875 SSM CV FUJI PACS LA vol BP 36.449 mL SSM CV [facility] I PACS LVOT pk andrei 1.00 m/s SSM CV F UJI PACS LVOT mn andrei 0.76 m/s SSM CV F UJI PACS LVOT mn grad 2.5 mmHg SSM CV FUJI PACS LVOT Cardiac Output 5.963 l/min SSM CV FUJI PACS LVOT Cardiac Index 2.67 l/min/m2 SSM CV FUJI PACS LA vol index 16.3 16 - 34 mL/m2 SSM CV FUJI PACS LA vol BP A-L 37.718 mL SSM CV FUJI PACS TV S' andrei 11.033 cm/s SSM CV FUJ I PACS RA area 13.29 cm2 SSM CV FUJ I PACS AV mn grad 4 mmHg SSM CV FU JI PACS AV pk grad 5 mmHg SSM CV FU JI PACS AV mn andrei 0.94 m/s SSM CV FUJ I PACS AV pk andrei 1.14 m/s SSM CV FUJ I PACS AV VTI 19.431 cm SSM CV FUJ I PACS LVOT pk grad 4.033 mmHg SSM CV FUJI PACS LVOT VTI 15.469 cm SSM CV FUJ I PACS AV area cont VTI 3.5 cm2 SSM CV FUJI PACS AV area pk andrei 3.9 cm2 SSM C V FUJI PACS AV Doppler andrei index pk andrei 0.883 SSM CV FUJI PACS Dimensionless Index 0.796 SSM CV FUJI PACS MV mn grad 4 mmHg SSM CV FU JI PACS MV pk grad 13 mmHg SSM CV FU JI PACS MV mn andrei 0.91 m/s SSM CV FUJ I PACS MV pk andrei 183.029 cm/s SSM CV FUJ I PACS MV area cont eq 3.28 cm2 SSM CV FUJI PACS MV VTI 20.944 cm SSM CV FUJ I PACS MV decel slope 263.5 cm/s2 SSM C V FUJI PACS PV pk andrei 69.736 cm/s SSM CV FUJ I PACS PV pk grad 2 mmHg SSM CV FU JI PACS Ascending aorta 3.60 cm SSM CV FUJI PACS IVC size 1.8 cm SSM CV FUJ I PACS LA ESV A4C MOD Index 16 ml/m2 SSM CV FUJI PACS LA ESV A2C MOD Index 16 ml/m2 SSM CV FUJI PACS [id number] 6.965 cm SSM CV FUJ I PACS [id number] 6.988 cm SSM CV FUJ I PACS Prox Asc Ao Diameter Index 1.611 cm SSM CV FUJI PACS LA Size 4.013 cm SSM CV FUJ I PACS LVIDs index 1.10 1.3 - 2.1 cm/m2 SSM CV FUJI PACS LV LVIDd index 1.60 2.2 - 3.0 cm/m2 SSM CV FUJI PACS Anatomical Region Laterality Modality Ultrasound Narrative 07/03/2023 12:39 PM TIME CLERK Left Ventricle: Left ventricle size is normal. Increased wall thickness. Increased ventricular mass. Findings consistent with severe concentric hypertrophy. Normal systolic function. EF by 2D Hearn biplane is 56%. Normal wall motion. Grade I diastolic dysfunction with normal left atrial pressure. Right Ventricle: Pacing/ICD wire present in the right ventricle. Left Ventricle Left ventricle size is normal. Increased wall thickness. Increased ventricular mass. Findings consistent with severe concentric hypertrophy. Normal systolic function. EF by 2D Hearn biplane is 56%. Normal wall motion. Grade I diastolic dysfunction with normal left atrial pressure. Right Ventricle Not well visualized, but appears grossly normal in size. Normal systolic function. Pacing/ICD wire present in the right ventricle. Left Atrium Left atrium size is normal. Right Atrium Right atrium size is normal. IVC/SVC IVC diameter is less than or equal to 21 mm and decreases greater than 50% during inspiration; therefore the estimated right atrial pressure is normal (~3 mmHg). Mitral Valve Valve structure is normal. Trace regurgitation. No stenosis. Tricuspid Valve Not well visualized. Trace regurgitation. The pulmonary artery systolic pressure is normal (under 35 mmHg). No stenosis. Aortic Valve Valve structure is trileaflet. No regurgitation. No stenosis. Pulmonic Valve Valve structure is normal. Trace regurgitation. No stenosis. Ascending Aorta Normal sized sinus of Valsalva (aortic root) and ascending aorta. Pericardium No pericardial effusion. Study Details Study quality was adequate. A complete 2D, color Doppler, spectral Doppler and M-mode echocardiogram was performed. The apical, parasternal, subcostal and suprasternal views were obtained. Technical difficulties due to inability to obtain IV access. Procedure Note Daily Bravo MD - 07/03/2023 Left Ventricle: Left ventricle size is normal. Increased wallthickness. Increased ventricular mass. Findings consistent with severeconcentric hypertrophy. Normal systolic function. EF by 2D Hearn biplaneis 56%. Normal wall motion. Grade I diastolic dysfunction with normal leftatrial pressure. Right Ventricle: Pacing/ICD wire present in the right ventricle. Kika PALACIOS ECHO CUPID * Implant Device Check (Office) (07/03/2023 10:43 AM TIME CLERK) Narrative RobertMorris, ESTHER-LICENSED GUIDE - 07/03/2023 10:43 AM TIME CLERK RobertMorris APRN-ROBIN 07/03/2023 10:48 AM Basilio Riley presented to device clinic for follow up of the patient's Pacemaker. Interrogation was performed with results as follows: Device: Medtronic Elisabeth Mode: AAI-DDD Presenting EGM: SR Battery: 2.98 Volts; Estimated longevity 4.5 years Percent Paced: 0.1% in atrium, 0.1% in ventricle Sensing: P-waves 2.5 mV; R-waves 5.0 mV Impedance: Right Atrial 399 ohms; Right Ventricular 399 ohms Threshold: Right Atrial .625 V @ .40 ms; Right Ventricular 1.3 V @ .40 ms Events: No atrial episodes. NSVT episodes all about 1 second Changes: None Impression: Normal Device Function. Appropriate. Basilio Riley will follow up with a remote check in 3 months and a follow-up in device clinic in 6 months. Thank you for allowing me to participate in the care of your patient. If you have any questions or concerns please do not hesitate to contact me. Morris Lara Jones APRN-LICENSED GUIDE PROCEDURE/MS NOR SURGICAL ORDERABLES * CT CHEST WO CONT AND HIRES (06/18/2023 12:21 PM TIME CLERK) Anatomical Region Laterality Modality Chest Computed Tomogra phy 06/18/2023 3:54 PM TIME CLERK Impressions 06/18/2023 11:48 PM TIME CLERK Impression: 1.Mild peripheral groundglass in both lungs predominantly in the lower lobes could represent desquamative interstitial pneumonia. No reticulations or bronchiectasis. No air trapping. > Dictated by Janet Mills DO (residential assistant). I, Perico Fermin MD have personally reviewed and interpreted this examination/study. > Interpreting Provider: Perico Fermin MD on 06/18/2023 11:48 PM Narrative 06/18/2023 11:48 PM TIME CLERK PROCEDURE: CT CHEST WO CONT AND HIRES, DATE/TIME OF EXAM: 06/18/2023 12:23 PM, LOCATION [facility] INDICATION: R93.89: Abnormal CT of the chest COMPARISON: None. TECHNIQUE: CT of the chest was performed without contrast according to standard protocol. Then, utilizing a high-resolution algorithm, 1 mm noncontiguous axial images of the chest were obtained in inspiration and expiration. Findings: Evaluation of visceral and vascular structures is degraded due to lack of intravenous contrast administration. Lower Neck and Axillae: There is a calcification in the left lobe of the thyroid gland. No lymphadenopathy. Lungs: No bronchial wall thickening or bronchiectasis is seen. Mild peripheral groundglass on inspiration and expiration images, more prominent on expiratory images. No architectural distortion or honeycombing is visible. No air trapping is seen on expiratory images. No pleural fluid or pneumothorax is present. No suspicious pulmonary nodule is identified. Heart and Pericardium: The cardiac chambers are normal in size. No pericardial fluid or thickening is present. The coronary arteries are atherosclerotic. There is a left chest wall pacemaker/defibrillator with leads terminating in the right atrium and right ventricle. Mediastinum and Ximena: No enlarged lymph nodes are present. Thoracic Vasculature: There is atherosclerotic calcification of the thoracic aorta and its branching vessels. Bones and Chest Wall: Bone windows demonstrate no suspicious lytic or blastic lesions. Chronic right-sided rib fracture. Degenerative changes are present in the spine, greatest at T7-T8. Upper Abdomen: The visible portions of the upper abdominal organs are normal. Procedure Note Perico Fermin MD - 06/18/2023 PROCEDURE: CT CHEST STU MORALES, DATE/TIME OF EXAM: 06/18/2023 12:23 PM, LOCATION [facility] INDICATION: R93.89: Abnormal CT of the chest COMPARISON: None. TECHNIQUE: CT of the chest was performed without contrast according to standard protocol. Then, utilizing a high-resolution algorithm, 1 mm noncontiguous axial images of the chest were obtained in inspiration and expiration. Findings: Evaluation of visceral and vascular structures is degraded due to lackof intravenous contrast administration. Lower Neck and Axillae: There is a calcification in the left lobe of the thyroid gland. No lymphadenopathy. Lungs: No bronchial wall thickening or bronchiectasis is seen. Mild peripheral groundglass on inspiration and expiration images, more prominent on expiratory images. No architectural distortion or honeycombing isvisible. No air trapping is seen on expiratory images. No pleural fluid or pneumothorax is present. No suspicious pulmonary nodule is identified. Heart and Pericardium: The cardiac chambers are normal in size. No pericardial fluid orthickening is present. The coronary arteries are atherosclerotic. There is a left chest wall pacemaker/defibrillator with leads terminating in the right atrium and right ventricle. Mediastinum and Ximena: No enlarged lymph nodes are present. Thoracic Vasculature: There is atherosclerotic calcification of the thoracic aorta and its branching vessels. Bones and Chest Wall: Bone windows demonstrate no suspicious lytic or blastic lesions. Chronic right-sided rib fracture. Degenerative changes are present in the spine, greatest at T7-T8. Upper Abdomen: The visible portions of the upper abdominal organs are normal. Impression: 1.Mild peripheral groundglass in both lungs predominantly in the lower lobes could represent desquamative interstitial pneumonia. Noreticulations or bronchiectasis. No air trapping. > Dictated by Janet Mills DO (residential assistant). I, Perico Fermin MD have personally reviewed and interpreted this examination/study. > Interpreting Provider: Perico Fermin MD on 06/18/2023 11:[address] Ford MD CT ORDERABLES * Complete PFT w/wo Bronchodilator [facility] PFT Lab (06/18/2023 11:59 AM TIME CLERK) Impressions Argenis Sadler MD - 06/18/2023 11:59 AM TIME CLERK [facility] DEPARTMENT OF PULMONARY, CRITICAL CARE, AND SLEEP MEDICINE PULMONARY FUNCTION TEST Please see technologist's comments mentioned in the report. INTERPRETATION: SPIROMETRY: FVC: Normal FEV1: Normal FEV1/FVC ratio is Normal BRONCHODILATOR RESPONSE: There is no significant response to bronchodilator therapy FLOW-VOLUME LOOPS: Normal flow-volume loops LUNG VOLUMES: Lung volumes by body plethysmography are normal DLCO: Unadjusted for Hb and COHb is normal DLCO: Corrected for Hb and COHb is: not performed IMPRESSION: Normal spirometry Normal lung volumes Normal diffusion by DLCO No significant bronchodilator response, however this does not preclude the use of bronchodilators There is no previous study available for comparison Hay Amezquita MD Pulmonary & Critical Care Fellow, PGY6 Division of Pulmonary, Critical Care and Sleep Medicine [facility] [employer] I have personally reviewed pulmonary function test data and finding. I concur with fellow's note. MD Kiara Aldana Setu K, MD - 06/18/2023 11:59 AM TIME CLERK Hay Amezquita MD 06/19/2023 4:10 PM Becca Ford MD RESPIRATORY THERAPY ORDERABLES * MI PM DEVICE INTERROGATE REMOTE, MI PM/ICD REMOTE TECH SERV (05/23/2023 6:27 PM CDT) Reid Mireles MD - 05/23/2023 6:27 PM CDT Reid Da Silva MD 05/23/2023 6:30 PM Dear Basilio Riley, I reviewed the remote interrogation of your device. Your device's sensing and capture thresholds are appropriate and stable. Lead impedances for your device: Atrial lead: 418 ohms RV lead: 399 ohms You are currently paced <0.1% in the atrial and 0.1% in the ventricle. During this most recent monitored period (01/2022 to 03/2023), you had no sustained arrhythmias. There were very short runs of atrial ectopy less than 5 seconds. The estimated remaining battery life for your device is 4.5 years. Device function is normal, and no programming changes are required. Please call our offices if you have any further questions. Sincerely, Reid Da Silva 05/23/2023 Reid Da Silva MD PROCEDURE/MINOR SURG ICAL ORDERABLES * PROC UROFLOWMETRY (05/21/2023 9:54 AM CDT) Jazmine Bauer MA - 05/21/2023 9:54 AM CDT Jazmine Dennis MA 05/21/2023 9:55 AM Voiding Time T100 50.5 s Flow Time TQ 46.2 s Time to max Flow TQmax 12.9 s Max Flow Rate Qmax 21.5 Ml/s Average Flow Rate Qave 6.2Ml/s Intervals 5 Voided Volume Vcomp 285 ml Josy Davila DO PROCEDURE/MINOR CARABALLO RGICAL ORDERABLES * MI MSR PVR U&/BLADD CAPCTY US NON (05/21/2023 9:39 AM CDT) Jazmine Bauer MA - 05/21/2023 9:39 AM CDT Jazmine Dennis MA 05/21/2023 9:39 AM Bladder scan completed. 94ml post void residual. Josy Davila DO PROCEDURE/MINOR CARABALLO RGICAL ORDERABLES * HEMOGLOBIN A1C - POINT OF CARE (AMB) [facility] (04/02/2023 9:16 AM CDT) Only the most recent of4 resultswithin the time period is included. Hemoglobin A1c POCT 7.4 % [address] BLOOD SPECIMEN / Unknown 04/02/2023 9:16 AM CDT Garry Tracey MD LAB - POINT OF CARE ORDERABLES [address], [place] [address], [facility] [phone] * MI PM/ICD REMOTE TECH SERV, MI PM DEVICE INTERROGATE REMOTE (01/31/2023 12:45 AM CDT) Narrative Chari Parada MD - 01/31/2023 12:45 AM CDT Chari Parada MD 01/31/2023 12:52 AM Basilio Riley underwent remote monitoring for his PPM. Interrogation was performed with results as follows: Device: Medtronic PPM Mode: AAI-DDD Battery: 2.98 Volts; Estimated longevity 4.5 years Percent Paced: Total [employer] CONSULTANT 0.1% (MVP On) -VS 99.9% -SE[employer] OPERATIONS CONSULTANT < 0.1% AP-VS < 0.1% AP-SE[employer] OPERATIONS CONSULTANT < 0.1% Sensing: P-waves 3.8 mV; R-waves 6.1 mV Impedence: Right Atrial 418 ohms; Right Ventricular 399 ohms Threshold: Right Atrial Not measured; Right Ventricular 1.25 V @ 0.4 ms; Events: 2 episodes of non-sustained ventricular tachycardia > 4 beats.14 rate drop response events Impression: Normal Device Function. Basilio Riley will follow up with a remote check every 3 months and a follow-up in device clinic every 6 months. Thank you for allowing me to participate in the care of your patient. If you have any questions or concerns please do not hesitate to contact me. Chari Parada MD PROCEDURE/MS NOR SURGICAL ORDERABLES * MI CYSTOURETHROSCOPY (01/15/2023 4:28 PM CDT) Narrative LolaJosy toledo Lara, DO - 01/15/2023 4:28 PM CDT Lola Josy Bermudez, 01/15/2023 4:36 PM DOS: 01/16/2024 CT reviewed with patient. Normal, no evidence of pathology to explain pain. No TURP defect. Prostate mildly enlarged. No stones, hernias, hydroceles. Cystoscopy: The urethral meatus was cleaned with betadine and the patient was draped. Lidocaine urojet was injected into the urethra and given sufficient time to take effect. The flexible cystoscope was passed through the urethral meatus and carried proximally to reveal a normal urethra and fossa navicularis. There was a well coapting sphincter. Prostate showed obstructing lateral lobe hyperplasia with the prostatic urethra measuring 3 cm in length and the lateral lobes coapting in the midline. He had no significant median lobe. The bladder was entered and carefully inspected. Bladder wall was not trabeculated. Bladder mucosa was normal with no tumors, polyps, inflammatory changes or other abnormalities. No bladder stones or bladder diverticuli. The ureteral orifices were easily identified. There was no bloody efflux appreciated from either ureteral orifice. I retroflexed the scope and looked at the bladder outlet and saw no abnormal lesions. I removed the cystoscope. The patient tolerated the procedure well. Uroflow: Voided 436 Max flow 27.4 Perfect flow curve PVR 13cc He had some obstruction by the lateral lobes and no TURP defect, though no median lobe. However his flow curve is not obstructed. His urethra was completely normal. I can only think that his pain is some sort of neuropathic pain. They have appointment with pain management. I am hoping they can try some sort of injection to relieve the pain. I briefly discussed a prostate intervention as he thinks the pain started after TURP. However, with this flow curve I am jsut not sure a prostate intervention would be a solution. I explained I am out of treatment ideas for the time. RTC in 4 months after pain mgmt visit. Josy Davila DO 01/15/2023 4:35 PM Josy Davila DO PROCEDURE/MINOR CARABALLO RGICAL ORDERABLES * MI MSR PVR U&/BLADD CAPCTY US NON (01/15/2023 12:18 PM CDT) Josy Almaguer, DO - 01/15/2023 12:18 PM CDT Catalina Naranjo LPN 01/15/2023 12:19 PM PVR = 13 mL Josy Davila DO PROCEDURE/MINOR CARABALLO RGICAL ORDERABLES * MI ELECTRO-UROFLOWMETRY, FIRST (01/15/2023 12:13 PM CDT) Josy Almaguer, DO - 01/15/2023 12:13 PM CDT Catalina Naranjo LPN 01/15/2023 12:17 PM Voiding Time: 31.3 s Flow Time: 26.8 s Time to Peakflow: 11.1 s Peak flowrate: 27.4 mL/s Average flowrate: 16.3 mL/s Intervals: 2 Voided volume: 436 mL Josy Davila PROCEDURE/MINOR CARABALLO RGICAL ORDERABLES * CT ABDOMEN PELVIS WWO CONTRAST (01/15/2023 8:41 AM CDT) Anatomical Region Laterality Modality Abdomen, Pelvis Computed Tomogra phy 01/15/2023 10:0 6 AM CDT Narrative 01/15/2023 10:33 AM CDT PROCEDURE: CT ABDOMEN PELVIS WWO CONTRAST, DATE/TIME OF EXAM: 01/15/2023 8:41 AM, LOCATION [facility] INDICATION: N50.819: Testicular pain, unspecified R30.9: Painful micturition, unspecified R39.198: Other difficulties with micturition Z90.79: Acquired absence of other genital organ(s) HISTORY: History of TURP procedure and abdominal and pelvic pain. TECHNIQUE: Pre and postcontrast imaging of the abdomen and pelvis were obtained prior to and following intravenous administration of Isovue-370. Delayed images through the collecting system were obtained. FINDINGS: The kidneys appear grossly normal. There is no renal cortical mass or evidence of obstructive uropathy. No kidney stone is present. Delayed images through the upper collecting system demonstrate normal calyces and infundibular renal pelves. The visualized ureters and bladder are normal. The prostate gland is mildly enlarged. There is no periprostatic soft tissue stranding or abscess or fluid. The visualized seminal vesicles are grossly normal. There is mild fatty change of the liver. An area of mild decreased attenuation is present within the medial segment of the left lobe of the liver which is nonspecific. The hepatic and portal veins enhance normally. The gallbladder is normal. The spleen and pancreas are normal. The adrenal glands appear unremarkable. There are scattered, mildly prominent, fluid-filled, loops of small bowel and evidence of small bowel stool sign is present which may indicate slow transit. Large and small bowel and the stomach are otherwise normal. There is no free air or free fluid. The aorta is atherosclerotic. The aorta and its branches enhance normally. There are degenerative changes throughout the visualized thoracolumbar spine. There has been prior vertebroplasty at L3. No evidence of an acute fracture or subluxation is seen. The heart size is grossly normal. The lung bases are clear. DIAGNOSIS: No acute intra-abdominal or pelvic abnormality is present, see report. Scattered, prominent, small bowel loops are present, and there is a small bowel stool sign which may represent delayed transit time. Edited by Magnolia Taylor on 01/15/2023 10:26 AM > Interpreting Provider: Vladimir Kilgore MD on 01/15/2023 10:33 AM Procedure Note Vladimir Kilgore MD - 01/15/2023 PROCEDURE: CT ABDOMEN PELVIS WWO CONTRAST, DATE/TIME OF EXAM:01/15/2023 8:41 AM, LOCATION [facility] INDICATION: N50.819: Testicular pain, unspecified R30.9: Painful micturition, unspecified R39.198: Other difficulties with micturition Z90.79: Acquired absence of other genital organ(s) HISTORY: History of TURP procedure and abdominal and pelvic pain. TECHNIQUE: Pre and postcontrast imaging of the abdomen and pelvis were obtained prior to and following intravenous administration ofIsovue-370. Delayed images through the collecting system were obtained. FINDINGS: The kidneys appear grossly normal. There is no renal cortical mass or evidence of obstructive uropathy. No kidney stone is present. Delayed images through the upper collecting system demonstrate normal calycesand infundibular renal pelves. The visualized ureters and bladder arenormal. The prostate gland is mildly enlarged. There is no periprostatic soft tissue stranding or abscess or fluid. The visualized seminal vesiclesare grossly normal. There is mild fatty change of the liver. An area of mild decreased attenuation is present within the medial segment of the left lobe of the liver which is nonspecific. The hepatic and portal veins enhancenormally. The gallbladder is normal. The spleen and pancreas are normal. The adrenal glands appearunremarkable. There are scattered, mildly prominent, fluid-filled, loops of smallbowel and evidence of small bowel stool sign is present which may indicateslow transit. Large and small bowel and the stomach are otherwise normal.There is no free air or free fluid. The aorta is atherosclerotic. The aortaand its branches enhance normally. There are degenerative changes throughout the visualized thoracolumbar spine. There has been prior vertebroplasty at L3. No evidence of anacute fracture or subluxation is seen. The heart size is grossly normal. The lung bases are clear. DIAGNOSIS: No acute intra-abdominal or pelvic abnormality is present, see report. Scattered, prominent, small bowel loops are present, and there is asmall bowel stool sign which may represent delayed transit time. Edited by Magnolia Taylor on 01/15/2023 10:26 AM > Interpreting Provider: Vladimir Kilgore MD on 01/15/2023 10:[address]ila DO CT ORDERABLES * (ABNORMAL) CREATININE - POCT INTERFACED (01/15/2023 8:17 AM CDT) Creatinine POCT 1.06 0.70 - 1.20 mg/dL 01/15/2023 8:27 AM CDT [facility] eGFR 79(L) >=90 mL/min/1.7 3 m2 01/15/2023 8:27 AM CDT [facility] Blood BLOOD SPECIMEN / Unknown 01/15/2023 8:17 AM CDT 01/15/2023 8:27 AM CDT [facility] Lola DO LAB - POINT OF CAR E ORDERABLES [facility] [address] [place] [address] * MI PM DEVICE PROGR EVAL SNGL (01/01/2023 9:48 AM CDT) Narrative Kika Ocampo PA - 01/01/2023 9:48 AM CDT Kika Ocampo PA 01/01/2023 9:52 AM Basilio Riley presented to device clinic for follow up of the patient's PPM. Interrogation was performed with results as follows: Device: Medtronic PPM Mode: AAI-DDD Battery: 2.98 Volts; Estimated longevity 4 years Percent Paced: 0.2% in atrium, 0.2% in ventricle Sensing: P-waves 2.8 mV; R-waves 4.1 mV Impedence: Right Atrial 380 ohms; Right Ventricular 380 ohms Threshold: Right Atrial 0.75 V @ 0.4 ms; Right Ventricular 1.125 V @ 0.4 ms; Events: No acute events. 49 rate drop events Changes: No changes today Impression: Normal Device Function. Basilio Riley will follow up with a remote check in 3 months and a follow-up in device clinic in 6 months. Thank you for allowing me to participate in the care of your patient. If you have any questions or concerns please do not hesitate to contact me. Kika PALACIOS PROCEDURE/MINOR SURG ICAL ORDERABLES * PERIPHERAL NEUROPATHY PANEL (12/30/2022 2:45 PM CDT) [facility] Signature Peripheral Neuropathy Panel See Scanned Report 01/25/2023 10:36 AM CDT [facility] Blood BLOOD SPECIMEN / Unknown Lab Venipuncture / Unknown 12/30/2022 2:45 PM CDT 12/30/2022 3:13 PM CDT Meredith Weiss MD LAB - SEROLOGY ORDER YADIRA [facility] [phone] * MI INJECT NERV BLCK,ILIOINGU/ILIOHYP (11/26/2022 10:32 AM CDT) Narrative Josy Davila DO - 11/26/2022 10:32 AM CDT Josy Davila DO 11/26/2022 10:47 AM DOS: 11/26/2022 Procedure: spermatic cord block, illiohypogastric nerve block 41831- bilateral The left testicle was tender to palpation. The cord was mildly tender. The scrotal skin was prepped with alcohol. 5cc of lidocaine 1% mixed with marcaine 0.25% was used to infiltrate the spermatic cord on both sides. Patient tolerated well. Josy Davila DO 11/26/2022 10:32 AM Jsoy Davila DO PROCEDURE/MINOR CARABALLO RGICAL ORDERABLES * PATHOLOGY/CYTOLOGY REPORT ORDER (10/29/2022) Only the most recent of2 resultswithin the time period is included. 10/29/2022 Narrative 10/29/2022 Ordered by an unspecified provider. Scanned Document LAB - PATHOLOGY/CYTO LOGY ORDERABLES * MI BLDR INSTLJ ANTICARCINOGENIC AGT (10/01/2022 10:32 AM TIME CLERK) Narrative oJsy Davila DO - 10/01/2022 10:32 AM TIME CLERK Josy Davila DO 10/01/2022 10:34 AM DOS: 10/01/2022 62yo male with dysuria. Here for #2 Silver nitrate Catheter was placed under sterile conditions. Bladder was drained. 30cc of silver nitrate 08/2499 topical solution was instilled into bladder and catheter was removed. Patient instructed to hold for at least 1 hour. Tolerated procedure well. RTC in 4 weeks for another instillation. Will do three and see if symptoms improve. Josy Davila DO 10/01/2022 10:32 AM Josy Davila DO PROCEDURE/MINOR CARABALLO RGICAL ORDERABLES * MI IRRIGATION OF BLADDER (09/17/2022 11:07 AM TIME CLERK) Josy Almaguer DO - 09/17/2022 11:07 AM TIME CLERK Josy Davila DO 09/17/2022 11:24 AM DOS: 09/17/2022 DOS: 09/17/2022 62yo male with dysuria. Catheter was placed under sterile conditions. Bladder was drained. 30cc of silver nitrate 08/2499 topical solution was instilled into bladder and catheter was removed. Patient instructed to hold for at least 1 hour. Tolerated procedure well. RTC in 4 weeks for another instillation. Will do three and see if symptoms improve. Josy Davila, 09/17/2022 11:08 AM Josy Davila DO PROCEDURE/MINOR CARABALLO RGICAL ORDERABLES * MI PM DEVICE INTERROGATE REMOTE, MI PM/ICD REMOTE TECH SERV (08/19/2022 4:36 PM TIME CLERK) Narrative Reid Da Silva MD - 08/19/2022 4:36 PM TIME CLERK Reid Da Silva MD 08/19/2022 4:40 PM Dear Basilio Riley, I reviewed the remote interrogation of your device. Your device's sensing and capture thresholds are appropriate and stable. Lead impedances for your device: Atrial lead: 437 ohms RV lead: 418 ohms You are currently paced <0.1% in the atrial and <0.1% in the ventricle. During this most recent monitored period, you had no sustained arrhythmias. The estimated remaining battery life for your device is 5 years. Device function is normal, and no programming changes are required. Please call our offices if you have any further questions. Sincerely, Reid Parra Mar 08/19/2022 Naz Clancy MD PROCEDURE/MINOR WILLIAM GICAL ORDERABLES * OCT (04/15/2022 8:37 AM CDT) Anatomical Region Laterality Modality Other 04/15/2022 8:37 AM CDT Nathalie Hassan OD OPHTHALMOLOGY SERVIC ES ORDERABLES * CBC W DIFF (EXTERNAL RESULT ENTRY) (12/26/2021) WBC (EXTERNAL RESULT) 15.6 10^3/ul Hemoglobin (EXTERNAL RESULT) 13.6 g/dl Hematocrit (EXTERNAL RESULT) 39.5 % Platelets (EXTERNAL RESULT) 365 10^3/ul Neutrophil Absolute (EXTERNAL RESULT) 8.3 10^3/ul Blood BLOOD SPECIMEN / Unknown 12/26/2021 Historical Provider LAB - HEMATOLOGY ORDERABLES * PHOSPHORUS (EXTERNAL RESULT ENTRY) (12/26/2021) Phosphorus (EXTERNAL RESULT) 2.9 mg/dl Blood BLOOD SPECIMEN / Unknown 12/26/2021 Historical Provider LAB - CHEMISTRY O RDERABLES * URINE CULTURE (EXTERNAL RESULT ENTRY) (12/26/2021) Pathologist [facility] Urine Culture (EXTERNAL) none Urine URINE / Unknown 12/26/2021 Historical Provider LAB - MICROBIOLOG Y ORDERABLES * URINALYSIS (EXTERNAL RESULT ENTRY) (12/26/2021) Pathologist [facility] pH UA (EXTERNAL RESULT) 5.5 Specific [place] Urine (EXTERNAL RESULT) 1.028 Protein UA (EXTERNAL RESULT) 1+ Blood UA (EXTERNAL RESULT) Negative Nitrite UA (EXTERNAL RESULT) Negative RBC UA (EXTERNAL RESULT) none /HPF WBC UA (EXTERNAL RESULT) 0-5 /HPF Leukocyte Esterase (EXTERNAL RESULT) Bacteria UA (EXTERNAL RESULT) none Urine URINE / Unknown 12/26/2021 Historical Provider LAB - CHEMISTRY O RDERABLES * CREATININE RAND UR (EXTERNAL RESULT ENTRY) (12/26/2021) Pathologist [facility] Creatinine Random Urine (EXTERNAL RESULT) 113.4 mg/dl Urine URINE / Unknown 12/26/2021 Historical Provider LAB - CHEMISTRY O RDERABLES * PTH (EXTERNAL RESULT ENTRY) (12/26/2021) Pathologist [facility] PTH Intact (EXTERNAL RESULT) 78 pg/ml Blood BLOOD SPECIMEN / Unknown 12/26/2021 Historical Provider LAB - CHEMISTRY O RDERABLES * VITAMIN D HYDROXY (EXTERNAL RESULT) (12/26/2021) Pathologist [facility] Vitamin D Hydroxy (External Result) 36.1 Blood 12/26/2021 Historical Provider LAB - CHEMISTRY O RDERABLES * COMP MET PANEL (EXTERNAL RESULT ENTRY) (12/26/2021) Pathologist [facility] Glucose (EXTERNAL) 273 mg/dL Sodium (EXTERNAL RESULT) 135 mmol/L Potassium (EXTERNAL RESULT) 4.6 mmol/L Chloride (EXTERNAL RESULT) 98 mmol/L CO2 (EXTERNAL) 20 mmol/L Calcium (EXTERNAL RESULT) 11.4 mg/dL Anion Gap (EXTERNAL RESULT) BUN (EXTERNAL RESULT) 40 mg/dL Creatinine (EXTERNAL RESULT) 2.05 mg/dl Alkaline Phosphatase (EXTERNAL RESULT) 122 U/L ALT (EXTERNAL RESULT) 20 U/L AST (EXTERNAL RESULT) 11 U/L Protein Total (EXTERNAL RESULT) 6.8 gm/dL Albumin (EXTERNAL RESULT) 4.3 gm/dL Bilirubin Total (EXTERNAL RESULT) 0.2 mg/dL eGFR MDRD (EXTERNAL RESULT) 36 mL/min/1.7 3m2 eGFR (EXTERNAL) Blood BLOOD SPECIMEN / Unknown 12/26/2021 Historical Provider LAB - CHEMISTRY O RDERABLES * LIPID PROFILE (EXTERAL RESULT ENTRY) (12/26/2021) Pathologist [facility] Cholesterol (EXTERNAL RESULT) 90 mg/dL Triglycerides (EXTERNAL RESULT) 611 mg/dL HDL (EXTERNAL RESULT) 23 mg/dL LDL (EXTERNAL RESULT) unable to calculate mg/dL VLDL (EXTERNAL RESULT) unable to calculate mg/dL Chol HDL Ratio (External Result) Blood BLOOD SPECIMEN / Unknown 12/26/2021 Historical Provider LAB - CHEMISTRY O RDERABLES * HEMOGLOBIN A1C (EXTERNAL RESULT ENTRY) (12/26/2021) Pathologist [facility] Hemoglobin A1c (EXTERNAL RESULT) 9.0 % Blood BLOOD SPECIMEN / Unknown 12/26/2021 Historical Provider MD LAB - CHEMISTRY O RDERABLES * MI INTMD WND REPAIR FACE,FACIAL <2.5CM, MI EXC SKIN BENIG 1.1-2CM FACE,FACIAL (12/16/2021 6:43 AM CDT) Narrative Robb Howell MD - 12/16/2021 6:43 AM CDT Robb Howell MD 12/16/2021 6:49 AM Elliptical Excision with Intermediate/layered Closure Date of Service: today Repair size: 2.5 cm Location: L jawline Lesion Size: 2.0 cm Level of Defect: SQ fat Primary Surgeon: Dante INDICATIONS: The patient was scheduled for excision. Risks, benefits and alternatives to excision were discussed with the patient. Pt understands the possibility for the following: Bleeding, infection, scar (100% chance), the possibility of non-diagnostic reading and the potential need for further testing or treatment, including surgical. Stated clearly the size of the specimen and the need to obtain adequate tissue for the most accurate path reading. All questions were answered. After informed consent, confirmation of site and identity, and appropriate instructions, the patient underwent the procedure as follows: PROCEDURE: The lesion was outlined with 0 mm margins. The lesion and the necessary margin (excised diameter) measured 2.0 cm. An ellipse was designed around the lesion to conform to relaxed skin tension lines in an effort to minimizescarring and deformity. The patient was then placed in a supine position. The lesion and surrounding skin were prepped with Hibiclens, draped and anesthetized with Lidocaine 1% with epinephrine 1:100,000 buffered with sodium bicarbonate 8.4% in a 1:10 ratio. Using a #15 blade the skin was excised along pre-marked lines. The resulting defect extended to fat. Wound margins were mildly undermined to limit functional deformity/impairment of adjacent structures. Bleeding vessels were controlled with pressure, pressure. space, dermis and subcutaneous tissue/fat/superf fascia were closed with buried vertical mattress sutures. Deep sutures were used to aid hemostasis, close space, and give extra tensile strength to counteract wound tension and prevent dehiscence. Epidermal approximation was meticulously refined with running sutures, resulting in a linear closure with little to no wound tension. Blood loss was estimated to be less than 5 cc. The area was coated with petrolatum andcovered with a non-adherent pressure dressing followed by gauze and tape. Postoperative instructions were reviewed per protocol. The patient left alert and fully oriented. Estimated Blood Loss: <5 ml Complications: none Robb Howell MD PROCEDURE/MINOR SURG ICAL ORDERABLES * MI DESTR MALIG TRUNK,EXTREM 1.1-2 CM (12/16/2021 6:42 AM CDT) Narrative Robb Howell MD - 12/16/2021 6:42 AM CDT Robb Howell MD 12/16/2021 6:43 AM Procedure Completed: ED & C Time out: immediately prior to the procedure, patient and provider/staff verbally confirmed correct patient, correct site, and correct procedure. Educ risk/benefits and potential adverse effects, 100% chance of scar, purpose, statistics of cure, small chance of infection. Informed consent obtained. ED & C Area prepped with alcohol. Lidocaine 1% with epinephrine locally injected. Total cc used: 3 Pre-op diagnosis: SCCIS Location: R forearm Size of lesion after first pass: 1.8cm Electrodessication and curettage performed to the area x 3 Hemostasis achieved with electrocautery. Patient given written and oral instructions. Procedure tolerated well. Discussed wound care. Robb Howell MD PROCEDURE/MINOR SURG ICAL ORDERABLES * Implant Device Check (Office) (10/07/2021 12:28 PM TIME CLERK) Narrative Laina Barclay APRN-CNP - 10/07/2021 12:28 PM TIME CLERK Laina Barclay APRN-CNP 10/07/2021 12:39 PM Basilio Riley presented to device clinic for monitoring of the patient's Medtronic PPM. Interrogation was performed with results as follows: Device: Pacemaker Mode: AAI/DDD Battery: 6 years Percent Paced: 0.2% Sensin.6 mV Impedance: 0481ohms Threshold: 1.0 v @ 0.4 ms Events: None Changes: None Impression: Normal Device Function. Basilio Riley will follow up with a remote checks in 3 months and device clinic in 6 months. Laina RODGERS PROCEDURE/MINOR S URGICAL ORDERABLES * MI TANGNTL BX SKIN EA SEP ADDL, MI TANGNTL BX SKIN EA SEP ADDL, MI TANGNTL BX SKIN SINGLE LES (09/13/2021 12:21 PM TIME CLERK) Narrative Robb Howell MD - 09/13/2021 12:21 PM TIME CLERK Betty Gilmore DO 09/13/2021 12:22 PM Risks, benefits and alternatives to shave biopsy were discussed with the patient. Verbal consent was obtained. Encounter Diagnosis Name Primary? Neoplasm of uncertain behavior of skin Yes Location: L posterior ear, R forearm, R flank Skin prep: Alcohol Anesthesia: 1% lidocaine with epinephrine Hemostasis: Aluminum chloride Dressing and wound care discussed. Specimen(s) placed in a patient labeled container and sent to [facility] Dermatopathology. Patient agrees to phone call for results and message if not available. Betty Gilmore DO Robb Howell MD PROCEDURE/MINOR SURG ICAL ORDERABLES * MI CYSTOURETHROSCOPY (03/10/2021 7:46 PM CDT) Narrative Annie Mcghee APRN-CNP - 03/10/2021 7:46 PM CDT Annie Mcghee APRN-CNP 03/10/2021 7:48 PM Cystoscopy procedure note Indication for Procedure: spraying of urine Description: Pt placed on the procedure table in The supine/lithotomy position. he was prepped/draped in standard fashion. Pt correctly identified and time out performed. A flexible cystoscope was introduced per urethra withthe following findings. Urethra: Normal caliber, no stricture. No masses. Urethral sphincter with good coaptation Prostate - positive prostatic hyperplasia present- mild Verumontanum in normal position Bladder neck patent without contracture Trigone - UO's orthotopic bilaterally. Clear efflux seen from both ureteral orifices. Mucosa normal without lesion Bladder - normal mucosa without tumor/stone/erythema. No FB present. No trabeculation. No cellules or diverticula. No fistula. Scope was retroflexed to assess entire surface of bladder. IMPRESSION: Normal exam of the bladder PLAN: FU PRN Annie Mcghee APRN-ROBIN Annie Mcghee APRN-ROBIN PROCEDURE/MIN OR SURGICAL ORDERABLES * TESTOSTERONE TOTAL FEM/CHLD HYPOGNDL MALE (02/28/2021 9:45 AM CDT) [facility] Testosterone Total LC-MS 269.1 264.0 - 916.0 ng/dL [facility] Comment: This [facility] LC/MS-MS method is currently certified by the CDC Hormone Standardization Program (HoSt). Adult male reference interval is based on a population of healthy nonobese males (BMI <30) between 19 and 39 years old. Shannan, et.al. JCEM 2017,102;5175-1757. PMID: 37183195. This test was developed and its performance characteristics determined by [facility]. It has not been cleared or approved by the Food and Drug Administration. FASTING 02/28/2021 9:45 AM CDT 02/28/2021 Narrative Resulting Agency Comment Lab Testing performed at: [address] [phone] Annie Mcghee APRN-LICENSED GUIDE LAB - DIALYSIS CLINICAL MANAGER RY ORDERABLES [facility] INSURANCE BILL [address] [place] [address] * CARDIAC EKG ORDER (07/11/2020 11:45 AM TIME CLERK) Narrative 07/11/2020 11:45 AM TIME CLERK Ordered by an unspecified provider. Scanned Document CARDIAC SERVICES ORD ERABLES * (ABNORMAL) GLUCOSE - POINT OF CARE (07/10/2020 4:26 PM TIME CLERK) [facility] Glucose WB/POC 216(H) 70 - 115 mg/dL 07/10/2020 4:54 PM TIME CLERK [facility] Specimen Type Arterial/C apillary 07/10/2020 4:54 PM TIME CLERK [facility] Blood BLOOD SPECIMEN / Unknown 07/10/2020 4:26 PM TIME CLERK 07/10/2020 4:54 PM TIME CLERK Eloina Phillips MD LAB - POINT OF CARE ORDERABLES [facility] [address] [place] [address], [facility] [phone] * XR CHEST 1VW PORTABLE (07/10/2020 4:22 PM TIME CLERK) Anatomical Region Laterality Modality Chest Radiographic Veronica ging 07/10/2020 4:25 PM TIME CLERK Impressions 07/11/2020 8:20 AM TIME CLERK IMPRESSION: No acute pulmonary process. Cardiac device as above. Dictated by Janet Mills DO (residential assistant). Dr. TOMMIE Zhao MD have personally reviewed and interpreted this examination/study. This report was electronically signed by TOMMIE STORY MD on 07/11/2020 8:20 AM . Narrative 07/11/2020 8:20 AM TIME CLERK ORDER DATE: 07/10/2020 4:22 PM EXAMINATION: XR CHEST 1VW PORTABLE HISTORY: R55: Syncope and collapse COMPARISON: No prior study is available for comparison. FINDINGS: A pacemaker cardiac device is present overlying left hemithorax with 2 intact leads terminating in the right atrium and right ventricle. There is no focal consolidation, pleural effusion, or pneumothorax. The cardiomediastinal silhouette is normal. A few right rib fractures are noted with callus suggesting a subacute age. Procedure Note Tommie Story MD - 07/11/2020 ORDER DATE: 07/10/2020 4:22 PM EXAMINATION: XR CHEST 1VW PORTABLE HISTORY: R55: Syncope and collapse COMPARISON: No prior study is available for comparison. FINDINGS: A pacemaker cardiac device is present overlying left hemithorax with 2 intact leads terminating in the right atrium and right ventricle. There is no focal consolidation, pleural effusion, or pneumothorax. The cardiomediastinal silhouette is normal. A few right rib fractures are noted with callus suggesting a subacute age. IMPRESSION: No acute pulmonary process. Cardiac device as above. Dictated by Janet Mills DO (residential assistant). Dr. TOMMIE Zhao MD have personally reviewed and interpreted this examination/study. This report was electronically signed by TOMMIE STORY MD on07/11/2020 8:20 AM . Amandeep Parker MD DIAGNOSTIC IMAGING O RDERABLES * PTT [facility] (07/10/2020 3:50 PM TIME CLERK) APTT 27.8 23.0 - 38.4 Seconds 07/10/2020 4:14 PM TIME CLERK [facility] Comment:Suggested therapeuti c range for full dose I.V. unfractionated heparin therapy for venous thromboembolism is 71 to 109 seconds. Blood BLOOD SPECIMEN / Unknown Venipuncture / Unknown 07/10/2020 3:50 PM TIME CLERK 07/10/2020 4:05 PM TIME CLERK Amandeep Parker MD LAB - COAGULATION OR DERABLES Performing Organization Address [facility] Co de Phone Number [address] [address], [facility] [phone] * PT-INR [facility] (07/10/2020 3:50 PM TIME CLERK) PT 12.9 12.1 - 14.8 Seconds 07/10/2020 4:21 PM TIME CLERK [facility] INR 1.0 See Comment 07/10/2020 4:21 PM TIME CLERK [facility] Comment:The suggested therap eutic range for standard coumadin (warfarin) therapy is an INR of 2.0-3.0. For high-risk patients (Mechanical Mitral Valve Prosthesis, etc.), the suggested prophylactic therapeutic range is an INR of 2.5-3.5. Blood BLOOD SPECIMEN / Unknown Venipuncture / Unknown 07/10/2020 3:50 PM TIME CLERK 07/10/2020 4:05 PM TIME CLERK Amandeep Parker MD LAB - COAGULATION OR DERABLES Performing Organization Address [facility] Co de Phone Number [address] [address], [facility] [phone] * TROPONIN I (07/10/2020 3:50 PM TIME CLERK) Troponin I 0.015 <0.032 ng/mL 07/10/2020 4:28 PM TIME CLERK [facility] Blood BLOOD SPECIMEN / Unknown Venipuncture / Unknown 07/10/2020 3:50 PM TIME CLERK 07/10/2020 3:53 PM TIME CLERK Amandeep Parker MD LAB - CHEMISTRY ORDE RABLES [facility] [address] [place] [address], [facility] [phone] * (ABNORMAL) DIFFERENTIAL MANUAL (07/10/2020 3:50 PM TIME CLERK) WBC (corrected for NRBC) 15.9 10 3/uL 07/10/2020 4:45 PM [facility] Total Cell Count 100 07/10/2020 4:45 PM [facility] Neutrophils Absolute Manual 10.97(H) 1.60 - 7.00 10 3/uL 07/10/2020 4:45 PM [facility] Comment:(BANDS+SEGS) x WBC = NEUT # (ANC) Lymphocyte Absolute Manual 3.66(H) 0.80 - 2.90 10 3/uL 07/10/2020 4:45 PM [facility] Monocytes Absolute Manual 1.11(H) 0.14 - 0.66 10 3/uL 07/10/2020 4:45 PM [facility] Eosinophils Absolute Manual 0.16 0.00 - 0.22 10 3/uL 07/10/2020 4:45 PM [facility] Neutrophil % Manual 69(H) 30 - 60 % 07/10/2020 4:45 PM [facility] Lymphocyte % Manual 23 20 - 45 % 07/10/2020 4:45 PM [facility] Monocytes % Manual 7 2 - 10 % 07/10/2020 4:45 PM [facility] Eosinophils % Manual 1 1 - 6 % 07/10/2020 4:45 PM [facility] Platelet Estimate Adequate Adequate 07/10/2020 4:45 PM [facility] RBC Morphology Normal 07/10/2020 4:45 PM [facility] Blood BLOOD SPECIMEN / Unknown Venipuncture / Unknown 07/10/2020 3:50 PM TIME CLERK 07/10/2020 3:53 PM TIME CLERK Amandeep Parker MD LAB - HEMATOLOGY ORD ERABLES [facility] [address] [place] [address], [facility] [phone] * B-TYPE NATRIURETIC PEPTIDE (07/10/2020 3:50 PM TIME CLERK) [facility] BNP <10 See Comment pg/mL 07/10/2020 4:28 PM [facility] Comment: A decision threshold of 100 pg/mL has been demonstrated to provide the maximal combination of sensitivity, specificity and predictive value for the diagnosis of congestive heart failure (CHF). Virtually all patients with no evidence of CHF have BNP values less than 100 pg/mL. A BNP value greater than 100 pg/mL is consistent with the diagnosis of CHF in the appropriate clinical setting. In a study of 693 patients (male and female) with diagnosed CHF, the following values were determined based on the NYHA functional classification system: NYHA Functional Class Mean Valule (pg/mL) % >100 pg/mL I 320 58.1 II 432 73.0 III 656 79.0 IV 1635 98.3 Blood BLOOD SPECIMEN / Unknown Venipuncture / Unknown 07/10/2020 3:50 PM TIME CLERK 07/10/2020 3:53 PM TIME CLERK Amandeep Parker MD LAB - CHEMISTRY SERENA [facility] Organization Address City/State/ZIP Co de Phone Number [facility] [address] [place] [phone], [facility] [phone] * (ABNORMAL) COMPREHENSIVE METABOLIC PANEL (07/10/2020 3:50 PM TIME CLERK) [facility] BUN 39(H) 7 - 26 mg/dL 07/10/2020 4:24 PM [facility] Creatinine 1.5(H) 0.6 - 1.2 mg/dL 07/10/2020 4:24 PM [facility] Sodium 138 136 - 145 mmol/L 07/10/2020 4:24 PM [facility] Potassium 4.6(H) 3.5 - 4.5 mmol/L 07/10/2020 4:24 PM [facility] Chloride 100 98 - 107 mmol/L 07/10/2020 4:24 PM [facility] CO2 25 22 - 29 mmol/L 07/10/2020 4:24 PM [facility] Glucose 275(H) 70 - 115 mg/dL 07/10/2020 4:24 PM [facility] Calcium 11.1(H) 8.4 - 10.2 mg/dL 07/10/2020 4:24 PM [facility] Protein Total 8.7(H) 6.0 - 8.3 g/dL 07/10/2020 4:24 PM [facility] Albumin 4.1 3.4 - 5.0 g/dL 07/10/2020 4:24 PM [facility] Bilirubin Total 0.3 0.2 - 1.2 mg/dL 07/10/2020 4:24 PM [facility] Alkaline Phosphatase 134 40 - 150 Units/L 07/10/2020 4:24 PM [facility] ALT 17 0 - 55 Units/L 07/10/2020 4:24 PM [facility] AST 12 5 - 34 Units/L 07/10/2020 4:24 PM [facility] Anion Gap 18 8 - 18 07/10/2020 4:24 PM [facility] BUN/Creatinine Ratio 26(H) 7 - 23 07/10/2020 4:24 PM [facility] Osmolality Calculated 305(H) 270 - 300 mOsm/kg 07/10/2020 4:24 PM [facility] Albumin/Globulin Ratio 0.9(L) 1.1 - 2.3 07/10/2020 4:24 PM [facility] eGFR 48(L) >60 mL/min/1.7 3 m2 07/10/2020 4:24 PM [facility] Blood BLOOD SPECIMEN / Unknown Venipuncture / Unknown 07/10/2020 3:50 PM TIME CLERK 07/10/2020 3:53 PM TIME CLERK Amandeep Parker MD LAB - CHEMISTRY SERENA [place] [facility] [address] [place] [phone], [facility] [phone] * PHOSPHORUS BLOOD (07/10/2020 3:50 PM TIME CLERK) Phosphorus 3.0 2.3 - 4.7 mg/dL 07/10/2020 4:24 PM [facility] Blood BLOOD SPECIMEN / Unknown Venipuncture / Unknown 07/10/2020 3:50 PM TIME CLERK 07/10/2020 3:53 PM TIME CLERK Amandeep Parker MD LAB - CHEMISTRY SERENA [place] [address] [address], [place] [phone] * MAGNESIUM BLOOD (07/10/2020 3:50 PM TIME CLERK) Magnesium 2.1 1.6 - 2.6 mg/dL 07/10/2020 4:24 PM TIME CLERK [facility] Blood BLOOD SPECIMEN / Unknown Venipuncture / Unknown 07/10/2020 3:50 PM TIME CLERK 07/10/2020 3:53 PM TIME CLERK Amandeep Parker MD LAB - CHEMISTRY SERENA PAGE Performing Organization Address City/[facility]/ZIP Co de Phone Number [address] [address], [place] [phone] * XR LUMBAR SPINE 2 OR 3VW (12/13/2018 11:06 AM CDT) Anatomical Region Laterality Modality Spine Radiographic Veronica ging 12/13/2018 11:1 0 AM CDT Impressions 12/13/2018 1:24 PM CDT IMPRESSION: 1.No acute fracture or compression deformity. 2.Status post kyphoplasty/vertebroplasty of L3 with approximately 25 percent residual vertebral body height loss. 3.Multiple degenerative changes, most severe at L4-S1. Report dictated by Judd Sanchez DO (residential assistant). I, Dr. UZMA BIGGS have personally reviewed and interpreted this examination/study. This report was electronically signed by UZMA BIGGS on 12/13/2018 1:24 PM . Narrative 12/13/2018 1:24 PM CDT EXAMINATION: XR LUMBAR SPINE 2 OR 3VW HISTORY: lbp COMPARISON: Entire spine radiograph dated 09/23/[address] lumbar spine dated 07/20/2017. FINDINGS: Kyphoplasty/vertebroplasty cement is seen in the L3 vertebral body. There is residual vertebral body height loss of approximately 25 percent. No acute fracture or compression deformity is identified. No acute subluxation is seen. There is multilevel degenerative changes noted, most severe at L4-5 and L5-S1. Anterior and lateral osteophytosis is noted. Facet joint arthropathy is noted in the lower lumbar spine. The sacroiliac joints are not widened. Procedure Note Uzma Biggs DO - 12/13/2018 EXAMINATION: XR LUMBAR SPINE 2 OR 3VW HISTORY: lbp COMPARISON: Entire spine radiograph dated 09/23/[address] lumbar spine dated 07/20/2017. FINDINGS: Kyphoplasty/vertebroplasty cement is seen in the L3 vertebral body.There is residual vertebral body height loss of approximately 25 percent. No acute fracture or compression deformity is identified. No acute subluxation is seen. There is multilevel degenerative changes noted,most severe at L4-5 and L5-S1. Anterior and lateral osteophytosis is noted. Facet joint arthropathy is noted in the lower lumbar spine. Thesacroiliac joints are not widened. IMPRESSION: 1.No acute fracture or compression deformity. 2.Status post kyphoplasty/vertebroplasty of L3 with approximately 25 percent residual vertebral body height loss. 3.Multiple degenerative changes, most severe at L4-S1. Report dictated by Judd Sanchez DO (residential assistant). IDr. UZMA have personally reviewed and interpreted this examination/study. This report was electronically signed by UZMA BIGGS on 12/13/2018 1:24 PM . Jamia Esteves MD DIAGNOSTIC IMAGING O RDERABLES * XR SPINE ENTIRE 2 OR 3VW (09/23/2018 1:36 PM TIME CLERK) Anatomical Region Laterality Modality Radiographic Veronica ging 09/23/2018 2:54 PM TIME CLERK Impressions 09/24/2018 3:41 PM TIME CLERK IMPRESSION: 1.Inadequately visualized cervical spine. The visualized upper cervical levels are grossly unremarkable. 2.Mild thoracic levoscoliosis. 3.Redemonstrated degenerative lumbar disc/joint disease. This report was approved by Robson Dumont on 09/24/2018 3:[address] NAYE Zhao have personally reviewed and interpreted this examination/study. This report was electronically signed by NAYE HUNT on 09/24/2018 3:41 PM . Narrative 09/24/2018 3:41 PM TIME CLERK EXAMINATION: Entire spine series, 2 or 3 views HISTORY: 58-year-old man with back pain status post L4-L5 and L5-S1 nerve block and L3 vertebroplasty COMPARISON: Lumbar CT myelogram on 07/20/2017 FINDINGS: Cervical spine: The cervical spine is incompletely visualized on this study due overshadowing of the shoulders and body habitus. The visualized upper cervical levels are grossly unremarkable on the lateral view. Thoracic spine: There is a mild thoracic levoscoliosis. There is no fracture or compression deformity. The intervertebral disc spaces are maintained. Lumbar spine: There is asymmetric L4-L5 disc space narrowing. Post kyphoplasty changes are seen at L3, where there is chronic anterior compression. No acute fracture is seen. The remaining intervertebral disc spaces are maintained. Facet joints are incompletely visualized, and there is evidence of mild multilevel facet arthropathy. Procedure Note Naye Hunt MD - 09/24/2018 EXAMINATION: Entire spine series, 2 or 3 views HISTORY: 58-year-old man with back pain status post L4-L5 and L5-H4dktul block and L3 vertebroplasty COMPARISON: Lumbar CT myelogram on 07/20/2017 FINDINGS: Cervical spine: The cervical spine is incompletely visualized on this study due overshadowing of the shoulders and body habitus. The visualized upper cervical levels are grossly unremarkable on the lateral view. Thoracic spine: There is a mild thoracic levoscoliosis. There is no fracture or compression deformity. The intervertebral disc spaces are maintained. Lumbar spine: There is asymmetric L4-L5 disc space narrowing. Post kyphoplasty changes are seen at L3, where there is chronic anterior compression. No acute fracture is seen. The remaining intervertebral disc spaces aremaintained. Facet joints are incompletely visualized, and there is evidence of mild multilevel facet arthropathy. IMPRESSION: 1.Inadequately visualized cervical spine. The visualized upper cervical levels are grossly unremarkable. 2.Mild thoracic levoscoliosis. 3.Redemonstrated degenerative lumbar disc/joint disease. This report was approved by Robson Dumont on 09/24/2018 3:41 PM . I, Dr. NAYE HUNT have personally reviewed and interpreted this examination/study. This report was electronically signed by NAYE HUNT on09/24/2018 3:41 PM . Clary Burgess MD DIAGNOSTIC IMAGING O RDERABLES * IR FACET LUMBAR UNILATERAL (05/17/2018 9:00 AM CDT) Anatomical Region Laterality Modality X-Ray Angiograph y 05/17/2018 9:16 AM CDT Impressions 05/24/2018 2:28 PM CDT Impression: Bilateral L4-5 and L5-S1 medial nerve root steroid injection under fluoroscopic guidance. Dr. Chiu performed/was present throughout the procedure. This report was approved by Patricia Palomares M.D. on 05/17/2018 9:38 AM . I, Dr. BARB CHIU have personally reviewed and interpreted this examination/study. This report was electronically signed by BARB CHIU on 05/24/2018 2:28 PM . Narrative 05/24/2018 2:28 PM CDT History: Patient is a 58-year-old malewith severe low back pain that goes to the legs and feet, left greater than right. He underwent an L4-5 LEXX but does not recall much about the injection and if it helped. VIR is consulted for image guided bilateral L4-L5 and L5-S1 and medial nerve block. Operators: 1.Dr. Chiu, Attending Physician 2.Dr. Palomares Physician Anesthesia: Local with 10 mL of 1% lidocaine. Procedure: 1.Fluoroscopy-guided bilateral L4-L5 and L5-S1 medial nerve root steroid injection. Fluoroscopic time: 4.5 minutes Contrast: None Procedure details: The procedure, risks, and possible complications were explained to the patient in detail, and informed consent was obtained. The patient was placed prone on the procedure table. The lower back was prepped and draped in the usual sterile manner. Pre-procedure fluoroscopy was done in the region of interest, and the needle entry site was marked on the lower back bilaterally at L3-4, L4-5, and L5-S1 for medial nerve block at these levels. After injection of 1% lidocaine for local anesthesia, a 22-gauge 3.5-inch spinal needle was advanced at the junction of pedicle and transverse processes bilaterally at these levels. Subsequently, a mixture of 0.75 mL betamethasone (6 mg/mL) and 0.75 mL 0.5% bupivacaine was injected at each of these levels. The needle was removed, and sterile dressing was applied. The patient tolerated the procedure well and was transferred to the holding area in stable condition. There were no immediate complications associated with the procedure. The patient's pain level before the procedure was 8/10. The patient's pain level after the procedure was 8/10 (no change). There was no change in paresthesia. Procedure Note Barb Chiu MD - 05/24/2018 History: Patient is a 58-year-old malewith severe low back pain thatgoes to the legs and feet, left greater than right. He underwent an L4-5 LEXX but does not recall much about the injection and if it helped. VIR is consulted for image guided bilateral L4-L5 and L5-S1 and medial nerve block. Operators: 1.Dr. Chiu, Attending Physician 2.Dr. Palomares Physician Anesthesia: Local with 10 mL of 1% lidocaine. Procedure: 1.Fluoroscopy-guided bilateral L4-L5 and L5-S1 medial nerve root steroid injection. Fluoroscopic time: 4.5 minutes Contrast: None Procedure details: The procedure, risks, and possible complications were explained to the patient in detail, and informed consent was obtained. The patient was placed prone on the procedure table. The lower back was prepped anddraped in the usual sterile manner. Pre-procedure fluoroscopy was done in the region of interest, and the needle entry site was marked on the lower back bilaterally at L3-4,L4-5, and L5-S1 for medial nerve block at these levels. After injection of 1% lidocaine for local anesthesia, a 22-gauge 3.5-inch spinal needle was advanced at the junction of pedicle and transverse processes bilaterally at these levels. Subsequently, a mixture of 0.75 mL betamethasone (6 mg/mL) and 0.75 mL 0.5% bupivacaine was injected at each of theselevels. The needle was removed, and sterile dressing was applied. The patient tolerated the procedure well and was transferred to the holding area in stable condition. There were no immediate complications associated with the procedure. The patient's pain level before the procedure was 8/10. The patient'richard level after the procedure was 8/10 (no change). There was no change in paresthesia. Impression: Bilateral L4-5 and L5-S1 medial nerve root steroid injection under fluoroscopic guidance. Dr. Chiu performed/was present throughout the procedure. This report was approved by Patricia Palomares M.D. on 05/17/20189:38 AM . I, Dr. BARB CHIU have personally reviewed and interpreted this examination/study. This report was electronically signed by BARB CHIU on 05/24/2018 2:28PM . Clary Burgess MD IR ORDERABLES * IR LEXX LUMBAR DIRECT APPROACH (11/17/2017 9:00 AM CDT) Anatomical Region Laterality Modality X-Ray Angiograph y 11/17/2017 9:47 AM CDT Impressions 11/17/2017 5:34 PM CDT Impression: Fluoroscopy-guided L4-5 interlaminar epidural steroid injection. Follow-up: If the patient does not improve or has inadequate pain relief, we can schedule him for an additional session in 3-4 weeks (either the L5-S1 LEXX or the bilateral L4-5 and L5-S1 medial branch blocks). Dr. Larsen performed/was present throughout the procedure. This report was approved by Sadaf Mercedes M.D. on 11/17/2017 9:[address] ASHLEY Zhao M.D. have personally reviewed and interpreted this examination/study. This report was electronically signed by ASHLEY HERNANDEZ M.D. on 11/17/2017 5:34 PM . Narrative 11/17/2017 5:34 PM CDT History: 57 y.o.malewith low back pain and bilateral lower extremity radiculopathy. The patient rates the pain as constant and currently 8/10. The patient was seen by neurosurgery in clinic on 09/24/2017 and then referred to interventional radiology for bilateral L4-5 and L5-S1 medial branch blocks as well as bilateral L4-5 and L5-S1 epidural steroid injections. These will need to be performed in staged sessions as needed. We will begin with an interlaminar epidural steroid injection at L4-5 which may be able to address both L4-5 and L5-S1 depending on the amount of diffusion through the epidural space. If the patient does not improve or has inadequate pain relief, we can schedule him for an additional session in 3-4 weeks (either the L5-S1 LEXX or the bilateral L4-5 and L5-S1 medial branch blocks). Operators: 1.Dr. Larsen, Attending Physician 2.Dr. Mercedes, IR Fellow Anesthesia: Local with 3 mL of 1% lidocaine. Procedure: Fluoroscopy-guided L4-5 interlaminar epidural steroid injection. Fluoroscopic time: 1.1 minutes Contrast: 5 mL of Isovue 220 Procedure details: The procedure, risks, and possible complications were explained to the patient in detail, and informed consent was obtained. The patient was placed prone on the procedure table. The lower back was prepped and draped in the usual sterile manner. Pre-procedure fluoroscopy was done in the region of interest, and the needle entry site was marked on the lower back. After injection of 1% lidocaine for local anesthesia, a 21-gauge 15 cm Chiba needle was advanced into the epidural space at the level of L4-5. Contrast was injected and epidurography was performed. Epidurography confirmed the tip of the needle in the epidural space. Subsequently, a mixture of 3 mL betamethasone and 3 mL 0.5% bupivacaine was injected. The needle was removed, and sterile dressing was applied. The patient tolerated the procedure well and was transferred to the holding area in stable condition. There were no immediate complications associated with the procedure. The patient's pain level before the procedure was 8/10. The patient's pain level after the procedure was also 8/10. Procedure Note Ashley Hernandez MD - 11/17/2017 History: 57 y.o.malewith low back pain and bilateral lower extremity radiculopathy. The patient rates the pain as constant and currently8/10. The patient was seen by neurosurgery in clinic on 09/24/2017 and then referred to interventional radiology for bilateral L4-5 and L5-S1 medial branch blocks as well as bilateral L4-5 and L5-S1 epidural steroid injections. These will need to be performed in staged sessions asneeded. We will begin with an interlaminar epidural steroid injection at L4-5 which may be able to address both L4-5 and L5-S1 depending on the amount of diffusion through the epidural space. If the patient does not improve or has inadequate pain relief, we can schedule him for an additional session in 3-4 weeks (either the L5-S1 LEXX or the bilateral L4-5 andL5-S1 medial branch blocks). Operators: 1.Dr. Larsen, Attending Physician 2.Dr. Mercedes, IR Fellow Anesthesia: Local with 3 mL of 1% lidocaine. Procedure: Fluoroscopy-guided L4-5 interlaminar epidural steroid injection. Fluoroscopic time: 1.1 minutes Contrast: 5 mL of Isovue 220 Procedure details: The procedure, risks, and possible complications were explained to the patient in detail, and informed consent was obtained. The patient was placed prone on the procedure table. The lower back was prepped anddraped in the usual sterile manner. Pre-procedure fluoroscopy was done in the region of interest, and the needle entry site was marked on the lower back. After injection of 1% lidocaine for local anesthesia, a 21-gauge 15 cm Chiba needle wasadvanced into the epidural space at the level of L4-5. Contrast was injected and epidurography was performed. Epidurography confirmed the tip of theneedle in the epidural space. Subsequently, a mixture of 3 mL betamethasone and3 mL 0.5% bupivacaine was injected. The needle was removed, and sterile dressing was applied. The patient tolerated the procedure well and was transferred to the holding area in stable condition. There were no immediate complications associated with the procedure. The patient's pain level before the procedure was 8/10. The patient'richard level after the procedure was also 8/10. Impression: Fluoroscopy-guided L4-5 interlaminar epidural steroid injection. Follow-up: If the patient does not improve or has inadequate painrelief, we can schedule him for an additional session in 3-4 weeks (either the L5-S1 LEXX or the bilateral L4-5 and L5-S1 medial branch blocks). Dr. Larsen performed/was present throughout the procedure. This report was approved by Sadaf Mercedes M.D. on 11/17/20179:49 AM . I, Dr. ASHLEY HERNANDEZ M.D. have personally reviewed and interpreted this examination/study. This report was electronically signed by ASHLEY HERNANDEZ M.D. on 11/17/2017 5:34 PM . Clary Burgess MD IR ORDERABLES * CT ANGIO BRAIN AND NECK (08/10/2017 9:23 AM TIME CLERK) Anatomical Region Laterality Modality Head Other Impressions 08/10/2017 11:22 AM TIME CLERK IMPRESSION: 1. No acute intracranial hemorrhage. 2. 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 Patent posterior and anterior communicating arteries. Approximately 50 percent focal stenosis of the origin of the left internal carotid artery. 3. Mild enlargement of the palatine and adenoid tonsils may represent infection. This report was approved by Jameson Esquivel MD on 08/10/2017 10:59 AM . I, Dr. KENAN MATTHEW M.D. have personally reviewed and interpreted this examination/study. This report was electronically signed by KENAN MATTHEW M.D. on 08/10/2017 11:22 AM . Narrative 08/10/2017 11:22 AM TIME CLERK EXAMINATION: 1. Computed tomographic (CT) angiography of the head without and with contrast 2. CT angiography of the neck with contrast HISTORY: carotid occlusion TECHNIQUE: CT of the head was performed without contrast according to standard protocol. Then CT angiography of the head and neck was obtained after the uneventful administration of 50 mL Omnipaque 350 intravenous contrast. Three dimensional postprocessing was performed by the technologist and sent to the workstation for review. FINDINGS: No prior study is available for comparison at the time of this dictation. Non-angiographic findings: No acute intra- or extra-axial fluid collections are identified. The ventricles are of normal size, shape, and morphology. The basilar cisterns are patent. No mass effect or midline shift is seen. There is encephalomalacia of the right parietal lobe. Periventricular white matter hypoattenuation is indicative of chronic small vessel ischemic disease. There is vascular calcification of the carotid siphons. Other than mild paranasal sinus disease, the visualized portions of the orbits, paranasal sinuses, and right mastoid appear normal. There is a left mastoid and middle ear effusion. The palatine and adenoid tonsils are enlarged. No acute fracture is identified. There is focal kyphosis at C5-6 with degenerative changes in the cervical spine. A left subclavian approach pacemaker is seen with leads entering the superior vena cava and terminating below the field of view. Calcification is seen in subcutaneous fat overlying the left parotid gland. Angiographic findings: The visible aortic arch appears normal. The configuration of the brachiocephalic vessels is typical. There is atherosclerotic calcification of the innominate and subclavian arteries. The right common carotid artery is occluded 1.2 cm from its origin. There is reconstitution of the right external carotid artery, likely via collaterals. There is atherosclerotic disease of the left carotid bifurcation and origin of the left internal carotid artery with approximately 50 percent focal stenosis. The left common and internal carotid arteries otherwise appear normal. The cervical vertebral arteries appear normal. The distal right internal carotid artery is opacified at the level of the ophthalmic segment and the right ophthalmic artery is patent. The distal left internal carotid artery appears normal. The anterior and middle cerebral arteries appear normal. The posterior communicating arteries are patent bilaterally. The distal vertebral arteries appear normal. The basilar artery and posterior cerebral arteries appear normal. No aneurysms are identified. Procedure Note Kenan Matthew MD - 10/30/2017 EXAMINATION: 1. Computed tomographic (CT) angiography of the head without and withcontrast 2. CT angiography of the neck with contrast HISTORY: carotid occlusion TECHNIQUE: CT of the head was performed without contrast according tostandard protocol. Then CT angiography of the head and neck was obtainedafter the uneventful administration of 50 mL Omnipaque 350 intravenouscontrast. Three dimensional postprocessing was performed by the technologist and sent to theworkstation for review. FINDINGS: No prior study is available for comparison at the time of thisdictation. Non-angiographic findings: No acute intra- or extra-axial fluid collections are identified. Theventricles are of normal size, shape, and morphology. The basilar cisternsare patent. No mass effect or midline shift is seen. There isencephalomalacia of the right parietal lobe. Periventricular white matter hypoattenuation is indicative of chronicsmall vessel ischemic disease. There is vascular calcification of thecarotid siphons. Other than mild paranasal sinus disease, the visualizedportions of the orbits, paranasal sinuses, and right mastoid appear normal. There is a left mastoid andmiddle ear effusion. The palatine and adenoid tonsils are enlarged. Noacute fracture is identified. There is focal kyphosis at C5-6 with degenerative changes in the cervicalspine. A left subclavian approach pacemaker is seen with leads enteringthe superior vena cava and terminating below the field of view.Calcification is seen in subcutaneous fat overlying the left parotid gland. Angiographic findings: The visible aortic arch appears normal. The configuration of thebrachiocephalic vessels is typical. There is atherosclerotic calcificationof the innominate and subclavian arteries. The right common carotid arteryis occluded 1.2 cm from its origin. There is reconstitution of the right external carotid artery, likely viacollaterals. There is atherosclerotic disease of the left carotidbifurcation and origin of the left internal carotid artery withapproximately 50 percent focal stenosis. The left common and internal carotid arteries otherwise appear normal. The cervicalvertebral arteries appear normal. The distal right internal carotid artery is opacified at the level of theophthalmic segment and the right ophthalmic artery is patent. The distalleft internal carotid artery appears normal. The anterior and middlecerebral arteries appear normal. The posterior communicating arteries are patent bilaterally. The distalvertebral arteries appear normal. The basilar artery and posteriorcerebral arteries appear normal. No aneurysms are identified. IMPRESSION IMPRESSION: 1. No acute intracranial hemorrhage. 2. 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 Patent posterior andanterior communicating arteries. Approximately 50 percent focal stenosisof the origin of the left internal carotid artery. 3. Mild enlargement of the palatine and adenoid tonsils may representinfection. This report was approved by Jameson Esquivel MD on 08/10/2017 10:59 AM . I, Dr. KENAN MATTHEW M.D. have personally reviewed and interpreted thisexamination/study. This report was electronically signed by KENAN MATTHEW M.D. on 08/10/201711:22 AM . Carlos Delgado MD CT ORDERABLES * (ABNORMAL) CREATININE BLOOD - POCT (IP) [facility] (08/10/2017) Creatinine POCT 1.77(A) 0.3 - 1.3 mg/dL [facility] eGFR POCT 43(A) 60 ml/min ON LICENSE OF [facility] 08/10/2017 Carlos Delgado MD LAB - POINT OF CARE ORDERABLES [place] [id number] [place], [place] [id number] [place] [address] * FL MYELOGRAM LUMBAR (07/20/2017 2:19 PM TIME CLERK) Anatomical Region Laterality Modality Spine Other Impressions 07/20/2017 3:26 PM TIME CLERK IMPRESSION: 1. Successful lumbar myelogram under fluoroscopic guidance at L3-L4. This report was approved by Jose Urias on 07/20/2017 2:53 PM . I, Dr. KENAN MATTHEW M.D. have personally reviewed and interpreted this examination/study. This report was electronically signed by KENAN MATTHEW M.D. on 07/20/2017 3:26 PM . Narrative 07/20/2017 3:26 PM TIME CLERK EXAMINATION: Lumbar myelogram HISTORY: radiculopathy TECHNIQUE: The risks and benefits of the lumbar puncture including, but not limited to, infection, bleeding, seizure, epidural hematoma, post spinal headache, cerebrospinal fluid (CSF) leak requiring blood patch procedure, nausea, vomiting, irritation or damage to nerves causing pain or permanent injury were discussed with the patient. After alternatives were discussed and the opportunity to ask questions was provided, the patient acknowledged understanding, gave verbal and written consent, and wished to proceed. Attending physician: Dr. Matthew was present for the stevens portions of this procedure. The L3-4 level was localized with fluoroscopy. The skin overlying this level was then sterilely prepped, draped, and infiltrated with 1% lidocaine for local anesthesia. Under intermittent fluoroscopic guidance, a 20 gauge 3.5 inch needle was inserted into the thecal sac at this level. Clear CSF was identified. 15 mL of Omnipaque 180 was injected under direct fluoroscopy. Images were obtained in the AP, oblique and lateral projections. The patient tolerated the procedure well. The patient was then sent for a scheduled CT scan of the lumbar spine. OPENING PRESSURE: Not performed FLUOROSCOPY TIME: 60 seconds Procedure Note Kenan Matthew MD - 10/30/2017 EXAMINATION: Lumbar myelogram HISTORY: radiculopathy TECHNIQUE: The risks and benefits of the lumbar puncture including, butnot limited to, infection, bleeding, seizure, epidural hematoma, postspinal headache, cerebrospinal fluid (CSF) leak requiring blood patchprocedure, nausea, vomiting, irritation or damage to nerves causing pain or permanent injury were discussed withthe patient. After alternatives were discussed and the opportunity to askquestions was provided, the patient acknowledged understanding, gaveverbal and written consent, and wished to proceed. Attending physician: Dr. Matthew was present for the stevens portions of thisprocedure. The L3-4 level was localized with fluoroscopy. The skin overlying thislevel was then sterilely prepped, draped, and infiltrated with 1%lidocaine for local anesthesia. Under intermittent fluoroscopic guidance,a 20 gauge 3.5 inch needle was inserted into the thecal sac at this level. Clear CSF was identified. 15 mL of Omnipaque 180 was injected under directfluoroscopy. Images were obtained in the AP, oblique and lateralprojections. The patient tolerated the procedure well. The patient wasthen sent for a scheduled CT scan of the lumbar spine. OPENING PRESSURE: Not performed FLUOROSCOPY TIME: 60 seconds IMPRESSION IMPRESSION: 1. Successful lumbar myelogram under fluoroscopic guidance at L3-L4. This report was approved by [facility] on 07/20/2017 2:[address] KENAN Zhao M.D. have personally reviewed and interpreted thisexamination/study. This report was electronically signed by KENAN MATTHEW M.D. on 07/20/20173:26 PM . Clary Burgess MD FLUOROSCOPY ORDERABL ES * CT LUMBAR POST MYELOGRAM (07/20/2017 2:15 PM TIME CLERK) Anatomical Region Laterality Modality Other Impressions 07/20/2017 3:26 PM TIME CLERK IMPRESSION: 1. Degenerative disease of the lower lumbar spine with moderate to severe central canal stenosis at L4-L5 and L5-S1. This report was approved by [facility] on 07/20/2017 3:[address] KENAN Zhao M.D. have personally reviewed and interpreted this examination/study. This report was electronically signed by KENAN MATTHEW M.D. on 07/20/2017 3:26 PM . Narrative 07/20/2017 3:26 PM TIME CLERK EXAMINATION: Computed tomography (CT) of the lumbar spine without contrast HISTORY: radiculopathy TECHNIQUE: CT of the lumbar spine was performed without contrast according to standard protocol. FINDINGS: No prior study is available for comparison at the time of this dictation. There is loss of normal lordosis. Post-vertebroplasty appearance of L3 is seen with chronic height loss at its anterior aspect. Sclerotic changes are noted at the inferior aspect of L4 and superior endplate of L5 and S1. There is up to moderate disc space narrowing and disc bulge at L4-5 and L5-S1 with ex vacuo phenomena. There is atherosclerotic calcification of the abdominal aorta and its branch vessels. The conus medullaris terminates at L1. Diffuse osteopenia is present. L1-L2: There is no disc bulge. There is no central canal stenosis. There is no facet osteoarthritis. There is no neural foraminal stenosis. L2-L3: There is mild diffuse disc bulge. There is no central canal stenosis. There is no facet osteoarthritis. There is no neural foraminal stenosis. L3-L4: There is mild diffuse disc bulge. There is no central canal stenosis. There is no facet osteoarthritis. There is no neural foraminal stenosis. L4-L5: There is circumferential disc bulge with abundant epidural fat. There is moderate bilateral lateral recess and mild central canal stenosis. There is mild bilateral facet osteoarthritis. There is severe right and moderate left neural foraminal stenosis. L5-S1: There is circumferential disc bulge. There is no central canal stenosis. There is mild facet osteoarthritis. There is moderate bilateral neural foraminal stenosis. Procedure Note Kenan Matthew MD - 10/30/2017 EXAMINATION: Computed tomography (CT) of the lumbar spine withoutcontrast HISTORY: radiculopathy TECHNIQUE: CT of the lumbar spine was performed without contrast accordingto standard protocol. FINDINGS: No prior study is available for comparison at the time of thisdictation. There is loss of normal lordosis. Post-vertebroplasty appearance of L3 isseen with chronic height loss at its anterior aspect. Sclerotic changesare noted at the inferior aspect of L4 and superior endplate of L5 and S1.There is up to moderate disc space narrowing and disc bulge at L4-5 and L5-S1 with ex vacuo phenomena.There is atherosclerotic calcification of the abdominal aorta and itsbranch vessels. The conus medullaris terminates at L1. Diffuse osteopeniais present. L1-L2: There is no disc bulge. There is no central canal stenosis. Thereis no facet osteoarthritis. There is no neural foraminal stenosis. L2-L3: There is mild diffuse disc bulge. There is no central canalstenosis. There is no facet osteoarthritis. There is no neural foraminalstenosis. L3-L4: There is mild diffuse disc bulge. There is no central canalstenosis. There is no facet osteoarthritis. There is no neural foraminalstenosis. L4-L5: There is circumferential disc bulge with abundant epidural fat.There is moderate bilateral lateral recess and mild central canalstenosis. There is mild bilateral facet osteoarthritis. There is severeright and moderate left neural foraminal stenosis. L5-S1: There is circumferential disc bulge. There is no central canalstenosis. There is mild facet osteoarthritis. There is moderate bilateralneural foraminal stenosis. IMPRESSION IMPRESSION: 1. Degenerative disease of the lower lumbar spine with moderate to severecentral canal stenosis at L4-L5 and L5-S1. This report was approved by Jose Urias on 07/20/2017 3:25 PM . I, Dr. KENAN MATTHEW M.D. have personally reviewed and interpreted thisexamination/study. This report was electronically signed by KENAN MATTHEW M.D. on 07/20/20173:26 PM . Clary Burgess MD CT ORDERABLES * (ABNORMAL) GLUCOSE ACCUCHECK (07/20/2017 10:19 AM TIME CLERK) Glucose, Fingerstick 139(H) 70-115mg/d L mg/dL Alvaro RyanCATHLEEN) Comment:Base Filler: MARANDA KIM 07/20/2017 10:1 9 AM TIME CLERK Clary Burgess MD LAB - CHEMISTRY [facility] Organization Address City/State/ZIP Co de Phone Number [facility] EPIFANIO ([place]) * XR LUMBAR SPINE 4VW OR MORE (06/18/2017 2:50 PM TIME CLERK) Anatomical Region Laterality Modality Spine Other Impressions 06/25/2017 7:40 AM TIME CLERK IMPRESSION: Patient is status post L3 vertebroplasty. There is a significant intervertebral disc space narrowing, sclerotic changes and hypertrophic spur formation at L4-L5 and L5-S1 levels which is consistent with moderate degenerative disease. The vertebral bodies are normally aligned. The vertebral alignment is preserved during flexion and extension position. No evidence of acute fracture. The remaining intervertebral stenosis spaces are maintained.The sacroiliac joints are normal. Dictated by Perri Dey MD (residential assistant). Dr. ELEUTERIO Zhao MD have personally reviewed and interpreted this examination/study. This report was electronically signed by ELEUTERIO GRIMALDO MD on 06/25/2017 7:40 AM . Narrative 06/25/2017 7:40 AM TIME CLERK EXAMINATION: XR SPINE LUMBAR 4 VW MIN HISTORY: back pain COMPARISON: No prior study is available for comparison. FINDINGS/ Procedure Note Eleuterio Grimaldo MD - 10/30/2017 EXAMINATION: XR SPINE LUMBAR 4 VW MIN HISTORY: back pain COMPARISON: No prior study is available for comparison. FINDINGS/ IMPRESSION IMPRESSION: Patient is status post L3 vertebroplasty. There is a significantintervertebral disc space narrowing, sclerotic changes and hypertrophicspur formation at L4-L5 and L5-S1 levels which is consistent with moderatedegenerative disease. The vertebral bodies are normally aligned. The vertebral alignment is preserved during flexionand extension position. No evidence of acute fracture. The remainingintervertebral stenosis spaces are maintained.The sacroiliac joints arenormal. Dictated by Perri Dey MD (residential assistant). Dr. ELEUTERIO Zhao MD have personally reviewed and interpreted thisexamination/study. This report was electronically signed by ELEUTERIO GRIMALDO MD on 06/25/20177:40 AM . Clary Burgess MD [facility] Care Teams Perforator Loader Relationship Specialty Start Date End Date Dina Cloud PA-C [address] [place] [address] [phone] PCP - General Physician Application Engineer 07/10/20
--- OUTSIDE RECORDS SUMMARY | 2024-09-16 11:57 | XMS_ITS | Clinical Summary ---
Author Organization [facility] Address [address] [facility] [place] [address] Care Team Providers Care Plug And Mold Finisher Name Role Phone Dina Cloud PA-C Primary Care Provider Source Comments [facility],non-owned Affiliates and Associated Physician Practices is amultiple site organization consisting of ambulatory clinics and hospital sitesin [place], [place], [place] and [place]. This disclosure is being madepursuant to the Care Everywhere program and may not contain all information available regarding this patient. Last updated 18.[facility] Allergies Active Allergy Reactions Criticality Noted Date [...] Active vitamin D, ergocalciferol, (DRISDOL) 1.25 MG (28486 UT) capsule Take 1 (one) capsule by [...] 5 01/09/20 23 Active Continuous Blood Gluc Procurement Assistant (Dexcom G7 Procurement Assistant) DEVIIndications:T ype 2 diabetes mellitus without complication, unspecified whether terminal supervisor insulin use (HCC) Use 1 kit as directed 1 Each 01/30/20 23 Active albuterol HFA (ProAir HFA) 108 (90 Base) MCG/ACT inhaler Inhale 2 (two) puffs by mouth every 4 hours as needed 8.5 g 5 06/18/20 23 Active Spacer/Aero-Holdi ng Chambers (AeroChamber) Inhale by mouth as directed 1 Each 5 06/18/20 23 Active HYDROcodone-aceta minophen ([place]) 10-325 MG tablet Take 1 (one) tablet [...] (one) Each 4 times daily 200 Each 11 10/05/19 24 Active Continuous Blood Gluc Sensor (Dexcom G7 Sensor) MISCIndications:T ype 2 diabetes mellitus without complication, unspecified whether terminal supervisor insulin use (HCC) Use 1 Each every 10 days 3 Each 11 10/05/19 24 Active dulaglutide (Trulicity) 3 MG/0.5ML injection Inject 3 (three) mg subcutaneously every 7 days 3 mL 11 10/05/19 24 Active empagliflozin (Jardiance) 10 MG tablet Take 1 (one) tablet by mouth once daily 30 tablet 11 10/05/19 24 Active evolocumab (Repatha) 140 MG/ML prefilled syringe Inject 140 (one hundred forty) mg subcutaneously every 14 days 6 mL 4 03/16/20 24 Active buPROPion SR 12hr (Zyban) [...] 10/07/2021 Assessment & Plan (10/07/2021 12:23 PM INSULATION APPLICATOR): Triglycerides remain elevated in the setting of uncontrolled DM. Pt has follow up with PCP later this week and Endocrinology in November. Start Vascepa 1 tab po BID. Mixed hyperlipidemia 10/07/2021 Assessment & Plan (10/07/2021 12:24 PM INSULATION APPLICATOR): LDL 28, HDL 29. Continue Repatha and Lipitor 80mg daily. FLP prior to follow up in 3 months. HTN (hypertension) 10/07/2021 Assessment & Plan (10/07/2021 12:27 PM INSULATION APPLICATOR): SBP uncontrolled in clinic today. Did not take his medications prior to this apportionment. Continue lisinopril 20mg daily. SBP on 09/13 149/79. Neoplasm of uncertain behavior of skin Epidermal inclusion cyst 09/27/2021 Solar lentiginosis 09/27/2021 Melanocytic nevi of trunk 09/27/2021 Lipoma of torso 09/27/2021 Cardiac pacemaker in situ 07/04/2021 Assessment & Plan (10/07/2021 12:39 PM INSULATION APPLICATOR): Medtronic PPM, functioning well. See device report from today. Transferred care to our clinic, remotes scheduled. Anemia 03/24/2019 07/16/2023 Myeloproliferative disease 08/26/2018 PAD (peripheral artery disease) 06/02/2018 Occlusion and stenosis of right carotid artery 1 09/23/2016 Encounters Date Type Department Care Team Description 09/13/2024 Orders Only [facility] - Nephrology [address] [place], [place] [phone] Nataliia Cooper MD Hypercalcemia 09/13/[address] [facility] - Neurology [address] [place] [phone] Meredith Weiss MD Refill Request 09/08/2024 8:15 AM INSULATION APPLICATOR Office Visit [facility] - Urology [address] [place] [address] Josy Davila DO Pain in left testicle (Primary Dx); S/P TURP; Urinary frequency; Dysuria; Pain in both testicles 09/08/2024 Travel 09/01/2024 10:31 AM INSULATION APPLICATOR - 09/01/2024 11:59 PM INSULATION APPLICATOR Hospital Encounter [facility] [address] [place] [address] Nataliia Cooper MD Discharge Disposition: Home or Self Care 09/01/2024 9:30 AM INSULATION APPLICATOR Office Visit [facility] - Nephrology [address] [place] [phone] Nataliia Cooper MD Stage 3 chronic kidney disease, unspecified whether stage 3a or 3b CKD (HCC) (Primary Dx) 09/01/2024 8:45 AM INSULATION APPLICATOR - 09/01/2024 10:30 AM INSULATION APPLICATOR Hospital Encounter [facility] [address] [place] [address] Nataliia Cooper MD Discharge Disposition: Home or Self Care 09/01/2024 Travel 08/26/2024 9:10 AM INSULATION APPLICATOR Office Visit 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 - General Dermatology [address] [place] [phone] Robb Howell MD Melanocytic nevi of trunk (Primary Dx); [place] angioma; Seborrheic keratoses; Lentigines; Actinic keratosis; History of squamous cell carcinoma of skin; Neoplasm of uncertain behavior of skin; 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 08/17/2024 Travel 07/19/2024 8:20 AM INSULATION APPLICATOR Office Visit [facility] - Cardiology [address] [facility] [address] [place] [address] Daily Bravo MD SSS (sick sinus syndrome) (HCC) (Primary Dx); Hypertriglyceridemia 07/19/2024 Travel 06/29/[address] [facility] - Urology [address] [place] [phone] Josy Davila DO Refill Request 06/21/2024 Travel 06/16/2024 2:00 PM INSULATION APPLICATOR Office Visit [facility] - Pulmonology [address] [place] [phone] Becca Ford MD Dyspnea on exertion (Primary Dx); Nicotine dependence, cigarettes, uncomplicated; AGNIESZKA (obstructive sleep apnea); Tobacco abuse; Immunization counseling 06/16/2024 Travel from Last 3 Months Immunizations Name Administration Dates Next Due COVID VIDTEQ [place] 12+YR 30MCG/0.3mL 05/13/2023 FLU, HISTORIC VACCINE 05/06/2023 INFLUENZA VACCINE 06/02/2022,05/17/2019,04/29/20 18 INFLUENZA VACCINE, QUADR. (F LUZONE; FLULAVAL; FLUARIX; AFLURIA QUADRIVALENT; 6MO+), 0.5 ML (IIV4) 05/17/2021 PNEUMOCOCCAL PCV20 CONJ VAC IM 06/17/2023 Family History Medical History Relation Name Comments None Known Brother CAD (Coronary Artery Disease) Father CVA Father Diabetes; unknown type Father None Known Maternal Aunt None Known Maternal Grandfather None Known Maternal Grandmother None Known Maternal Uncle Other Mother not close urosepsis None Known Other None Known Paternal Aunt None Known Paternal Grandfather None Known Paternal Grandmother None Known Paternal Uncle Cancer - Lung Sister 1 None Known Sister 2 Asthma Neg Hx Cancer - Breast Neg Hx Cancer - Other Neg Hx Cancer - Skin, Melanoma Neg Hx Cancer - Skin, Non Melanoma Neg Hx Eczema Neg Hx Hemophilia Neg Hx Psoriasis Neg Hx Relation Name Status Comments Brother Father Maternal Aunt Maternal Grandfather Maternal Grandmother Maternal Uncle Mother not close Other Paternal Aunt Paternal Grandfather Paternal Grandmother Paternal Uncle Sister 1 Alive Sister 2 Alive Social History Tobacco Use Types Packs/Day Years [...] Comments Blood Pressure 164/83 09/08/2024 7:55 AM INSULATION APPLICATOR Pulse 94 09/08/2024 7:55 AM INSULATION APPLICATOR Temperature 36.7 C (98 F) 09/08/2024 7:55 AM INSULATION APPLICATOR Respiratory Rate 17 06/16/2024 1:59 PM INSULATION APPLICATOR Oxygen Saturation 95% 09/08/2024 7:55 AM INSULATION APPLICATOR Inhaled Oxygen Concentration - - Weight 103.1 kg (227 lb 6.4 oz) 09/08/2024 7:55 AM INSULATION APPLICATOR Height 175.3 cm (5' 9 ) 09/08/2024 7:55 AM INSULATION APPLICATOR Body Mass Index 33.58 09/08/2024 7:55 AM INSULATION APPLICATOR Plan of Treatment Upcoming Encounters Date Type Department Care Team (Late st Contact Info) Description 09/20/2024 9:30 AM INSULATION APPLICATOR Office Visit [facility] - Neurology [address] [place] [address], [place] [address] Meredith Weiss MD [address] [place] [address] [place] [address] 10/18/2024 1:00 AM CDT Clinical Support [facility] - Cardiology [address] [facility], [address] [phone] 10/25/2024 9:00 AM CDT [facility] [address] [place] [address], [address] [phone] Daily Bravo MD [address] [place] [phone] 11/08/2024 3:40 PM CDT [facility] Endocrinology [address] [place] [address], [place] [address] Garry Tracey MD [address] [place] [address] [address] [place] [address] 12/15/2024 2:00 PM CDT [facility] Pulmonology [address] [place] [address], [place] [address] Becca Ford MD [address] [place] [address] [address] DIV [place] [address] 01/17/2025 1:10 AM CDT Clinical Support [facility] - Cardiology [facility] [address] [phone] 02/24/2025 9:10 AM CDT Office Visit [facility] - Dermatology [address] [place] [address], [place] [address] Robb Howell MD [address] [place] [address] [address] [place] [address] 03/02/2025 9:00 AM CDT Office Visit [facility] - Nephrology [address] [facility], [place] [address] Nataliia Cooper MD [address] [facility] [address] [place] [address] 04/18/2025 1:10 AM CDT Clinical Support [facility] - Cardiology [address] [facility], [address] [phone] 07/18/2025 1:10 AM INSULATION APPLICATOR Clinical Support [facility] - Cardiology [address] [facility], [place] [address] [place] [phone] Health Maintenance Due Date Last Done Comments COLOGUARD (AGES 45-75) - COLON CA SCREENING [address] COLONOGRAPHY - COLON CA SCREENING 1961 FIT - COLON CA SCREENING 1961 FLEX SIG - COLON CA SCREENING 1961 Opioid Medication Agreement - Annual 1961 Opioid Medication Urine Drug Screening 1961 HIV SCREENING 01/06/1976 HEPATITIS C SCREENING 01/01/1979 DTAP/TDAP/TD VACCINES (1 - Tdap) 01/06/1980 ZOSTER VACCINE (1 of 2) 2011 Respiratory Syncytial Virus (RSV) Vaccine Pt: or over 60 yrs (1 - Risk 60-74 years 1-dose series) 2021 DEPRESSION SCREENING 08/03/2024 09/29/2022 LUNG CANCER SCREENING 06/14/2025 06/14/2024, 017 SCREENING FOR DIABETES 09/01/2027 , 09/01/2024, 04/21/2024, Additional history exists COLONOSCOPY - COLON CA SCREENING 11/28/2031 11/27/2021 Colorectal Cancer Screening 11/28/2031 PNEUMOCOCCAL VACCINE 50+ Completed 06/17/2023 COVID-19 VACCINE Completed 04/25/2024, , 05/13/2023, Additional history exists INFLUENZA VACCINE Completed 04/25/2024, , 05/06/2023, Additional history exists HEPATITIS B VACCINE Aged Out No longe r eligible based on patient's age to complete this topic HIB VACCINE Aged Out No longer eligi ble based on patient's age to complete this topic HPV VACCINE Aged Out No longer eligi ble based on patient's age to complete this topic MENINGOCOCCAL (Group B) VACCINE Aged Out No longer eligible based on patient's age to complete this topic MENINGOCOCCAL VACCINE Aged Out No jerrod ting eligible based on patient's age to complete this topic Goals Goal Patient Goal Type Associated Problems Recent Progress Patient-Stated? Author Medication Management General On track( 025 10:03 AM INSULATION APPLICATOR) No Ketty Dudley, MAIN Note: Expected end date: on going Interventions: Take all medications as prescribed Let your doctor know right away about any changes in your medications Make sure to request a refill of your medication at least one week prior to your last dose Procedures Procedure Name Priority Date/Time Associated Diagnosis Comments URINE MICROSCOPIC ONLY REFLEX TO CULTURE Routine 09/01/2024 11:37 AM INSULATION APPLICATOR Stage 3 chronic kidney disease, unspecified whether stage 3a or 3b CKD (HCC) MICROALB/CREAT RATIO URINE RANDOM PANEL Routine 09/01/2024 11:37 AM INSULATION APPLICATOR Stage 3 chronic kidney disease, unspecified whether stage 3a or 3b CKD (HCC) URINALYSIS REFLEX MICROSCOPIC REFLEX CULTURE Routine 09/01/2024 11:37 AM INSULATION APPLICATOR Stage 3 chronic kidney disease, unspecified whether stage 3a or 3b CKD (HCC) VITAMIN D 25-HYDROXY Routine 09/01/2024 11:07 AM INSULATION APPLICATOR Stage 3 chronic kidney disease, unspecified whether stage 3a or 3b CKD (HCC) PTH INTACT W/O CALCIUM Routine 11:07 AM INSULATION APPLICATOR Stage 3 chronic kidney disease, unspecified whether stage 3a or 3b CKD (HCC) HEMOGLOBIN A1C Routine 09/01/2024 11:07 AM INSULATION APPLICATOR Stage 3 chronic kidney disease, unspecified whether stage 3a or 3b CKD (HCC) URIC ACID BLOOD Routine 09/01/2024 11:07 AM INSULATION APPLICATOR Stage 3 chronic kidney disease, unspecified whether stage 3a or 3b CKD (HCC) RENAL FUNCTION PANEL Routine 09/01/2024 11:07 AM INSULATION APPLICATOR Stage 3 chronic kidney disease, unspecified whether stage 3a or 3b CKD (HCC) CBC W AUTO DIFFERENTIAL Routine 09/01/19 11:07 AM INSULATION APPLICATOR Stage 3 chronic kidney disease, unspecified whether stage 3a or 3b CKD (HCC) US RETROPERITONEAL COMPLETE Routine 09/01/2024 9:37 AM INSULATION APPLICATOR Stage 3 chronic kidney disease, unspecified whether stage 3a or 3b CKD (HCC) WY DESTR MALIG TRUNK,EXTREM 0.6-1 CM Routine 08/26/2024 9:26 AM INSULATION APPLICATOR 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 WY DESTR MALIG TRUNK,EXTREM 0.6-1 CM Routine 08/17/2024 12:25 PM INSULATION APPLICATOR 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 WY DESTROY PREMALIG LESION, 1ST LESION Routine 08/17/2024 12:25 PM INSULATION APPLICATOR Actinic keratosis WY TANGNTL BX SKIN SINGLE LES Routine 08/17/2024 12:24 PM INSULATION APPLICATOR Neoplasm of uncertain behavior of skin DERMATOPATHOLOGY Routine 08/17/2024 3:33 AM INSULATION APPLICATOR Neoplasm of uncertain behavior of skin CARDIAC PROCEDURE ORDER 07/26/2024 WY PM DEVICE PROGR EVAL DUAL Routine 07/19/2024 8:47 AM INSULATION APPLICATOR SSS (sick sinus syndrome) (HCC) EKG 12-LEAD Routine 07/19/2024 8:11 AM INSULATION APPLICATOR SSS (sick sinus syndrome) (HCC) CARDIAC PROCEDURE ORDER 07/19/2024 CT LUNG SCREEN LOW DOSE Routine 06/14/20 24 1:47 PM INSULATION APPLICATOR Nicotine dependence, cigarettes, uncomplicated from Last 3 Months or Most Recently Relevant to Health Maintenance Results * (ABNORMAL) URINE MICROSCOPIC ONLY REFLEX TO CULTURE (09/01/2024 11:37 AM INSULATION APPLICATOR) Reflex Status Culture not indicated 09/01/2024 12:36 PM [facility] WBC UA 0-5 None Seen, 0-5 /HPF 09/01/2024 12:36 PM [facility] Squamous Epithelial Cells UA 0-2 None Seen, 0-2, 3-5 /HPF 09/01/2024 12:36 PM [facility] Mucus UA 1+ /LPF 09/01/2024 12:36 PM [facility] Hyaline Casts UA 3-5(A) None Seen, 0-2 /LPF 09/01/2024 12:36 PM [facility] Urine URINE SPECIMEN OBTAINED BY CLEAN CATCH PROCEDURE / Unknown Collection / Unknown 09/01/2024 11:37 AM INSULATION APPLICATOR 09/01/2024 12:05 PM INSULATION APPLICATOR [facility] - 09/01/2024 12:36 PM INSULATION APPLICATOR Nataliia Cooper MD LAB - URINALYSIS ORD ERABLES [facility] [address] [place] [address], [facility] [phone] * (ABNORMAL) URINALYSIS REFLEX MICROSCOPIC REFLEX CULTURE (09/01/2024 11:37 AM INSULATION APPLICATOR) Color UA Yellow Straw, Yellow 09/01/2024 12:13 PM [facility] Clarity UA Slt Cloudy(A) Clear 09/01/2024 12:13 PM [facility] Specific Farber UA 1.026 1.005 - 1.030 09/01/2024 12:13 PM [facility] pH UA 5.0 5.0 - 8.0 pH 09/01/2024 12:13 PM [facility] Protein UA 2+(A) Negative 09/01/2024 12:13 PM [facility] Glucose UA 3+(A) Negative 09/01/2024 12:13 PM [facility] Ketone UA Negative Negative 09/01/2024 12:13 PM [facility] Bilirubin UA Negative Negative 09/01/2024 12:13 PM [facility] Blood UA Negative Negative 09/01/2024 12:13 PM [facility] Nitrite UA Negative Negative 09/01/2024 12:13 PM [facility] Leukocyte Esterase Negative Negative 09/01/2024 12:13 PM [facility] Urobilinogen UA Negative Negative mg/dL 09/01/2024 12:13 PM [facility] Urine URINE SPECIMEN OBTAINED BY CLEAN CATCH PROCEDURE / Unknown Collection / Unknown 09/01/2024 11:37 AM INSULATION APPLICATOR 09/01/2024 12:[address] [facility] Narrative [facility] - 09/01/2024 12:13 PM INSULATION APPLICATOR Nataliia Cooper MD LAB - URINALYSIS ORD ERABLES [address] [address], [facility] [phone] * (ABNORMAL) MICROALB/CREAT RATIO URINE RANDOM PANEL (09/01/2024 11:37 AM INSULATION APPLICATOR) Albumin Random Urine 755.4 Not Established ug/mL 09/01/2024 12:59 PM [facility] Comment:Result obtained by julio barrett. Creatinine Urine 161.04 Not Established mg/dL 09/01/2024 12:59 PM [facility] Urine Albumin/Creati nine Ratio 469(H) <30 mg/g 09/01/2024 12:59 PM [facility] Urine URINE SPECIMEN OBTAINED BY CLEAN CATCH PROCEDURE / Unknown Collection / Unknown 09/01/2024 11:37 AM INSULATION APPLICATOR 09/01/2024 12:10 PM INSULATION APPLICATOR Nataliia Cooper MD LAB - URINE CHEMISTR Y ORDERABLES [address] [address], [facility] [phone] * (ABNORMAL) PTH INTACT W/O CALCIUM (09/01/2024 11:07 AM INSULATION APPLICATOR) PTH Intact 203.7(H) 8.0 - 77.0 pg/mL 09/01/2024 12:15 PM INSULATION APPLICATOR [facility] Blood BLOOD SPECIMEN / Unknown Lab Venipuncture / Unknown 09/01/2024 11:07 AM INSULATION APPLICATOR 09/01/2024 11:42 AM INSULATION APPLICATOR Nataliia Cooper MD LAB - CHEMISTRY SERENA PAGE [address] [address], [facility] [phone] * (ABNORMAL) URIC ACID BLOOD (09/01/2024 11:07 AM INSULATION APPLICATOR) Uric Acid 7.3(H) 3.5 - 7.2 mg/dL 09/01/2024 12:14 PM INSULATION APPLICATOR [facility] Blood BLOOD SPECIMEN / Unknown Lab Venipuncture / Unknown 09/01/2024 11:07 AM INSULATION APPLICATOR 09/01/2024 11:42 AM INSULATION APPLICATOR Nataliia Cooper MD LAB - CHEMISTRY SERENA PAGE [address] [address], [place] [phone] * (ABNORMAL) HEMOGLOBIN A1C (09/01/2024 11:07 AM INSULATION APPLICATOR) Hemoglobin A1c 7.7(H) <=5.6 % 09/01/2024 1:10 PM [facility] Estimated Average Glucose 174 mg/dL 09/01/2024 1:10 PM [facility] Comment: HbA1c Interpretation: Normal : < 5.7% Pre-diabetes: 5.7-6.4% Diabetes: Equal to or greater than 6.5% Test results diagnostic of diabetes should be repeated for confirmation. Treatment target values recommended by ADA and other clinical organizations should be used to evaluate metabolic control in patients. Reference: [place] [employer], Standards of Care in Diabetes -2020 In patients 70 years and older consider HbA1c target range of 7.0-7.5% (Reference: Vickey Moser et al. OWEN. 2012) The Sebia assay for the measurement of HbA1c is a National Glycohemoglobin Standardization Program (NGSP) certified method. Blood BLOOD SPECIMEN / Unknown Lab Venipuncture / Unknown 09/01/2024 11:07 AM INSULATION APPLICATOR 09/01/2024 11:42 AM INSULATION APPLICATOR Nataliia Cooper MD LAB - CHEMISTRY SERENA PAGE Performing Organization Address [facility]/ZIP Co de Phone Number [address] [address], [facility] [phone] * VITAMIN D 25-HYDROXY (09/01/2024 11:07 AM INSULATION APPLICATOR) Vitamin D, 25 Hydroxy 43.2 30.0 - 80.0 ng/mL 09/01/2024 12:32 PM INSULATION APPLICATOR [facility] Comment: The recommendations for 25-Hydroxy Vitamin [...] Lab Venipuncture / Unknown 09/01/2024 11:07 AM INSULATION APPLICATOR 09/01/2024 11:42 AM INSULATION APPLICATOR Nataliia Cooper MD LAB - CHEMISTRY SERENA PAGE Performing Organization Address City/[facility]/ZIP Co de Phone Number [address] [address], [place] [phone] * (ABNORMAL) CBC WITH DIFFERENTIAL (09/01/2024 11:07 AM INSULATION APPLICATOR) WBC 11.8(H) 4.0 - 10.7 x10E9/L 09/01/2024 11:56 AM [facility] RBC Count 4.20(L) 4.30 - 5.80 x10E12/L 09/01/2024 11:56 AM [facility] Hemoglobin 14.7 13.3 - 17.5 g/dL 09/01/2024 11:56 AM [facility] Hematocrit 44.0 38.7 - 51.1 % 09/01/2024 11:56 AM [facility] MCV 104.8(H) 80.0 - 98.0 fL 09/01/2024 11:56 AM [facility] MCH 35.0(H) 26.7 - 33.6 pg 09/01/2024 11:56 AM [facility] MCHC 33.4 31.7 - 36.3 g/dL 09/01/2024 11:56 AM [facility] RDW-CV 14.6 11.3 - 14.8 % 09/01/2024 11:56 AM [facility] Platelet Count 285 150 - 420 x10E9/L 09/01/2024 11:56 AM [facility] MPV 10.3 7.8 - 11.4 fL 09/01/2024 11:56 AM [facility] Neutrophil % 49.1 41.0 - 74.0 % 09/01/2024 11:56 AM [facility] Lymphocyte % 38.5 17.0 - 47.0 % 09/01/2024 11:56 AM [facility] Monocyte % 7.1 3.0 - 11.0 % 09/01/2024 11:56 AM [facility] Eosinophil % 4.0 0.0 - 7.0 % 09/01/2024 11:56 AM [facility] Basophil % 0.8 0.0 - 1.6 % 09/01/2024 11:56 AM [facility] Immature Granulocytes % 0.5 0.0 - 1.0 % 09/01/2024 11:56 AM [facility] Neutrophil Absolute 5.82 1.60 - 7.50 x10E9/L 09/01/2024 11:56 AM [facility] Lymphocyte Absolute 4.56(H) 1.00 - 4.40 x10E9/L 09/01/2024 11:56 AM [facility] Monocyte Absolute 0.84 0.15 - 1.00 x10E9/L 09/01/2024 11:56 AM [facility] Eosinophil Absolute 0.47 0.00 - 0.60 x10E9/L 09/01/2024 11:56 AM [facility] Basophil Absolute 0.09 0.00 - 0.13 x10E9/L 09/01/2024 11:56 AM [facility] Blood BLOOD SPECIMEN / Unknown Lab Venipuncture / Unknown 09/01/2024 11:[address] [facility] 09/01/2024 11:[address] [facility] Nataliia Cooper MD LAB - HEMATOLOGY ORD ERABLES Performing Organization Address City/State/[place] Co de Phone Number [facility] [address] [place] [phone] [phone] * (ABNORMAL) RENAL FUNCTION PANEL (09/01/2024 11:[address] [facility]) BUN 27(H) 7 - 26 mg/dL 09/01/2024 12:14 PM [facility] Creatinine 2.02(H) 0.71 - 1.16 mg/dL 09/01/2024 12:14 PM [facility] Sodium 141 136 - 145 mmol/L 09/01/2024 12:14 PM [facility] Potassium 4.6(H) 3.5 - 4.5 mmol/L 09/01/2024 12:14 PM [facility] Chloride 107 98 - 107 mmol/L 09/01/2024 12:14 PM [facility] CO2 27 22 - 29 mmol/L 09/01/2024 12:14 PM [facility] Glucose 154(H) 70 - 99 mg/dL 09/01/2024 12:14 PM [facility] [facility] Albumin 3.9 3.4 - 5.0 g/dL 09/01/2024 12:14 PM [facility] Calcium 11.3(H) 8.4 - 10.2 mg/dL 09/01/2024 12:14 PM [facility] Phosphorus 2.9 2.8 - 5.1 mg/dL 09/01/2024 12:14 PM [facility] Anion Gap 7 6 - 16 09/01/2024 12:14 PM [facility] BUN/Creatinine Ratio 13 7 - 23 09/01/2024 12:14 PM [facility] Osmolality Calculated 300(H) 275 - 295 mOsm/kg 09/01/2024 12:14 PM [facility] eGFR by CKD-EPI 36(L) >=90 mL/min/1.7 3 m2 09/01/2024 12:14 PM [facility] Blood BLOOD SPECIMEN / Unknown Lab Venipuncture / Unknown 09/01/2024 11:07 AM INSULATION APPLICATOR 09/01/2024 11:42 AM INSULATION APPLICATOR Nataliia Cooper MD LAB - CHEMISTRY SERENA PAGE [facility] Organization Address City/State/[place] Co de Phone Number [address] [address], [facility] [phone] * US Retroperitoneal Complete (09/01/2024 9:37 AM INSULATION APPLICATOR) Anatomical Region Laterality Modality Abdomen Ultrasound 09/01/2024 9:45 AM INSULATION APPLICATOR Impressions 09/01/2024 9:50 AM INSULATION APPLICATOR Impression: 1. Normal-sized kidneys with normal echogenicity. 2. No hydronephrosis or nephrolithiasis. > Interpreting Provider: Denae Grijalva MD on 09/01/2024 9:50 AM Narrative 09/01/2024 9:50 AM INSULATION APPLICATOR PROCEDURE: US RETROPERITONEAL COMPLETE DATE/TIME OF EXAM: [...] AM Nataliia Cooper MD US ORDERABLES * WY DESTR MALIG TRUNK,EXTREM 0.6-1 CM (08/26/2024 9:26 AM INSULATION APPLICATOR) Narrative Robb Howell MD - 08/26/2024 9:26 AM INSULATION APPLICATOR Amandeep Helton MD 08/26/2024 9:41 AM PROCEDURE: [...] tolerated the procedure well. Amandeep Helton MD [facility] Dermatology Resident Robb Howell MD PROCEDURE/MINOR SURG ICAL ORDERABLES * WY DESTR MALIG TRUNK,EXTREM 0.6-1 CM (08/17/2024 12:25 PM INSULATION APPLICATOR) Narrative Robb Howell MD - 08/17/2024 12:25 PM INSULATION APPLICATOR Guy Gómez MD 08/17/2024 12:26 PM PROCEDURE: [...] Howell MD PROCEDURE/MINOR SURG ICAL ORDERABLES * WY DESTROY PREMALIG LESION, 1ST LESION (08/17/2024 12:25 PM INSULATION APPLICATOR) Narrative Robb Howell MD - 08/17/2024 12:25 PM INSULATION APPLICATOR Guy Gómez MD 08/17/2024 12:25 PM Diagnosis and treatment options discussed. Cryotherapy (Liquid Nitrogen) to 1 lesion for 4-6 seconds. Number of cycles: 1. Wound care reviewed. Robb Howell MD PROCEDURE/MINOR SURG ICAL ORDERABLES * WY TANGNTL BX SKIN SINGLE LES (08/17/2024 12:24 PM INSULATION APPLICATOR) Narrative Robb Howell MD - 08/17/2024 12:24 PM INSULATION APPLICATOR Guy Gómez MD 08/17/2024 12:24 PM Risks, [...] ICAL ORDERABLES * DERMATOPATHOLOGY (08/17/2024 3:33 AM INSULATION APPLICATOR) Case Report Dermatopathology Report Case: [id number] Authorizing Provider: Robb Howell MD Collected: 08/17/2024 03:33 AM Ordering Location: [facility] - Received: 08/18/2024 11:05 AM General Dermatology Pathologist: Rose Soto MD Specimen: Skin, left forearm 1:26 PM INSULATION APPLICATOR DERMATOPATHOLOGY LABORATORY Final Diagnosis Specimen A. SKIN, left forearm: SQUAMOUS CELL CARCINOMA IN SITU (PINK'S DISEASE) (D04.62) 1:26 PM INSULATION APPLICATOR DERMATOPATHOLOGY LABORATORY Clinical History Suspect NMSC 1:26 PM INSULATION APPLICATOR DERMATOPATHOLOGY LABORATORY Gross Description Specimen A: Received is one formalin filled container labeled with the patient's name and designated left forearm. The specimen consists of a shave biopsy measuring 67f31v9 mm. Jar 0. 1:[address] [facility] DERMATOPATHOLOGY LABORATORY Microscopic Description Specimen A. SKIN, left forearm: The epidermis shows parakeratosis, full thickness disorderly maturation of keratinocytes, mitoses at different levels, and dyskeratotic cells. 1:[address] [facility] DERMATOPATHOLOGY LABORATORY Disclaimer An external and internal positive and negative controls are appropriate for the histochemical, immunohistochemical and immunofluorescence stain(s) in this case (if any), except where stated explicitly. The performance characteristics of the stain(s) cited in this report were developed and its performance characteristic determined by the Dermatopathology Laboratory at [facility], directed by Dr. Barbara Becker. These tests need not be, and therefore are not, approved by the [place] Food and Drug Administration. The tests are used for clinical purposes. Billing Codes Specimen Charges Stain Charges 11924 1 1:[address] [facility] DERMATOPATHOLOGY LABORATORY Embedded Images 1:[address] [facility] DERMATOPATHOLOGY LABORATORY Pathology/Cytolo gy TISSUE SPECIMEN FROM SKIN / Unknown 08/17/2024 3:33 AM INSULATION APPLICATOR 08/18/2024 11:05 AM INSULATION APPLICATOR Robb Howell MD LAB - PATHOLOGY/CYTO LOGY ORDERABLES DERMATOPATHOLOGY LABORATORY [facility] Department of Dermatology [address], [address] [phone] * CARDIAC PROCEDURE ORDER (07/26/2024) Only the most recent of2 resultswithin the time period is included. Narrative 07/26/2024 Ordered by an unspecified provider. Scanned Document CARDIAC SERVICES ORD ERABLES * [place]Y PM DEVICE PROGR EVAL DUAL (07/19/2024 8:47 AM INSULATION APPLICATOR) Narrative Daily Bravo MD - 07/19/2024 8:47 AM INSULATION APPLICATOR Daily Bravo MD 07/19/2024 8:49 AM This is a 64 year old male with a H/O sick sinus syndrome . The patient received a Medtronic Advisa DR dual chamber pacemaker on 09/23/16. The patients device is functioning appropriately according to the poker dealer's recommendations with appropriate battery voltage, charge time, shock impedance (s), lead impedance (s) along with pacing and sensing thresholds. The patient will be scheduled for 3 month remote follow-up. Instructed to call with questions or problem. Daily Bravo MD PROCEDURE/MINOR SURG ICAL ORDERABLES * EKG 12-LEAD (07/19/2024 8:11 AM INSULATION APPLICATOR) Pathologist [facility] Ventricular Rate 71 BPM [facility] Atrial Rate 71 BPM [facility] P-R Interval 244 ms [facility] QRS Duration ms 194 ms [facility] Q-T Interval ms 446 ms [facility] QTC Calculation (Bezet) 484 ms [facility] Calculated R [place] -85 degrees [facility] Calculated T [place] 34 degrees [facility] Interpretation EKG [...] QUINCY, DAILY ([id number]) on 07/19/2024 1:27:54 PM ANNIE ACEVEDO 07/19/2024 8:11 AM INSULATION APPLICATOR 07/19/2024 1:27 PM INSULATION APPLICATOR Daily Bravo MD ECG ORDERABLES ANNIE ACEVEDO * CT LUNG CANCER SCREEN LOW DOSE (06/14/2024 1:47 PM INSULATION APPLICATOR) Anatomical Region Laterality Modality Chest Computed Tomogra phy 06/14/2024 3:19 PM INSULATION APPLICATOR Impressions 06/14/2024 8:13 PM INSULATION APPLICATOR Impression: No pulmonary nodules identified. Lung-RADS category [...] > Dictated by Naz Roblero MD, (residential therapist). I, Ruel Whitehead MD have personally reviewed and interpreted this examination/study. > Interpreting Provider: Ruel Whitehead MD on 06/14/2024 8:13 PM Narrative 06/14/2024 8:13 PM INSULATION APPLICATOR PROCEDURE: CT LUNG SCREEN LOW DOSE DATE/TIME [...] > Dictated by Naz Roblero MD, (residential therapist). I, Ruel Whitehead MD have personally reviewed and interpreted this examination/study. > Interpreting Provider: Ruel Whitehead MD on 06/14/2024 8:13 PM Becca Ford MD CT ORDERABLES from Last 3 Months or Most Recently Relevant to Health Maintenance Care Teams Plug And Mold Finisher Relationship Specialty Start Date End Date Dina Cloud PA-C [facility] [place] [address] PCP - General Physician Paper Production Engineer 07/10/20
--- OUTSIDE RECORDS SUMMARY | 2024-09-16 11:57 | XMS_ITS | Encounter Summary ---
Author Organization [facility] Address [address] [facility] [place] [address] Care Team Providers Care Music Therapist [employer] Name Role Phone Dina Cloud PA-C Primary Care Provider Reason for Visit * Reason Onset Date Comments Med Question 02/29/2024 Encounter Details Date Type Department Care Team (Late st Contact Info) Description 02/29/2024 Telephone [facility] - General Dermatology [address] [place] [address] Robb Howell MD [address] [facility] 3 [place] [address] Med Question Social History Tobacco Use Types Packs/Day [...] encounter Miscellaneous Notes * Telephone Encounter - Robb Howell MD - 03/06/2024 1:04 PM CDT In the result note, it says pt was unsure if he was taking vitamin E--if he is, that would be the one to stop before the procedure. I would NOT stop aspirin or plavix. Thank you * Telephone Encounter - Umang Caldwell - 02/29/2024 9:15 AM CDT Pt was instructed to not take medication before surgery that is scheduled for 03/16. horse trekking guide is wanting to know when should pt stop taking medication. # [phone] documented in this encounter Plan of Treatment Upcoming Encounters Date Type Department Care Team (Late st Contact Info) Description 09/20/2024 9:30 AM CREPE MAKER [facility] - Neurology [address] [place] [address], [place] [address] Meredith Weiss MD [address] [place] [address] [place] [address] 10/18/2024 1:00 AM CDT Clinical Support [facility] - Cardiology [address] [phone] 10/25/2024 9:00 AM CDT Office Visit [facility] - Cardiology [address] [facility], [address] [address] Daily Bravo MD [facility] [address] [address] 11/08/2024 3:40 PM CDT Office Visit [facility] - Endocrinology [address] [place] [phone] Garry Tracey MD [address] [place] [address] 2L [place] [phone] 12/15/2024 2:00 PM CDT Office Visit [facility] - Pulmonology [address] [place] [address], [place] [address] Becca Ford MD [address] [place] [address] 2L DIV [place] [address] 01/17/2025 1:10 AM CDT Clinical Support [facility] - Cardiology [address] [place] [phone] 02/24/2025 9:10 AM CDT [facility] - Dermatology [address] [place] [phone] Robb Howell MD [address] [place] [address] 3L [place] [address] 03/02/2025 9:00 AM CDT [facility] - Nephrology [address] [place] [address], [place] [address] Nataliia Cooper MD [address] [place] [address] 3L [place] [address] 04/18/2025 1:10 AM CDT Clinical Support [facility] - Cardiology [address] [place] [phone] 07/18/2025 1:10 AM CREPE MAKER Clinical Support [facility] - Cardiology [address] [place] [phone] documented as of this encounter Visit Diagnoses Not on filedocumented in this encounter Care Teams Music Therapist [employer] Relationship Specialty Start Date End Date Dina Cloud PA-C [address] [place] [address] PCP - General Physician Clinical Quality Assurance Specialist 07/10/20 documented as of this encounter
--- OUTSIDE RECORDS SUMMARY | 2024-09-16 11:57 | XMS_ITS | Encounter Summary ---
Author Organization [facility] Address [address] [facility] [place] [address] Care Team Providers Care Senior Security Architect Name Role Phone Dina Cloud PA-C Primary Care Provider Encounter Details Date Type Department Care Team (Late st Contact Info) Description 01/26/2023 Telephone [facility] - Centralized Scheduling [address] [place] [phone] Garry Tracey MD [address] [place] [phone] Social History Tobacco Use Types Packs/Day Years [...] encounter Miscellaneous Notes * Telephone Encounter - Sommer Moreira - 01/26/2023 11:58 AM CDT Pt. Marcus needs his prescription resent for Dexcom G7 Shirt Sorter and Dexcom G7 sensor due to the prescritpion being out dated. Pt callback is [phone] documented in this encounter Plan of Treatment Upcoming Encounters Date Type Department Care Team (Late st Contact Info) Description 09/20/2024 9:30 AM HIDE COOKING OPERATOR Office Visit [facility] - Neurology [address] [place] [phone] Meredith Weiss MD [address] [place] [address] 1L [place] [phone] 10/18/2024 1:00 AM CDT Clinical Support [facility] - Cardiology [address] [place] [phone] 10/25/2024 9:00 AM CDT Office Visit [facility] - Cardiology [address] [place] [phone] Daily Bravo MD [address] [place] [address] 11/08/2024 3:40 PM CDT Office Visit [facility] - Endocrinology [address] [place] [phone] Garry Tracey MD [address] [place] [address] 2L [place] [phone] 12/15/2024 2:00 PM CDT Office Visit [facility] - Pulmonology [address] [place] [phone] Becca Ford MD [address] [place] [address] 2L DIV [place] [address] 01/17/2025 1:10 AM CDT Clinical Support [facility] - Cardiology [address], [address] [phone] 02/24/2025 9:10 AM CDT Office Visit [facility] - Dermatology [address] [place] [address], [place] [address] Robb Howell MD [facility] [facility] 3 [place] [address] 03/02/2025 9:00 AM CDT [facility] - Nephrology [address] [place] [address], [place] [address] Nataliia Cooper MD [address] [facility] 3 [place] [address] 04/18/2025 1:10 AM CDT Clinical Support [facility] - [facility]iology [address] [facility], [address] [phone] 07/18/2025 1:10 AM HIDE COOKING OPERATOR Clinical Support [facility] - Cardiology [address] [facility], [address] [phone] documented as of this encounter Visit Diagnoses Not on filedocumented in this encounter Care Teams Senior Security Architect Relationship Specialty Start Date End Date Dina Cloud PA-C [address] [place] [phone] PCP - General Physician Multiskill Operator 07/10/20 documented as of this encounter
--- OUTSIDE RECORDS SUMMARY | 2024-09-16 11:57 | XMS_ITS | Referral Summary ---
Author Organization [facility] [address] Address [address] [place] [address] Care Team Providers Care Pole Frame Construction Worker Name Role Phone Dina Cloud Primary Care [...] 03/15/2015 Leukocytosis 03/08/2015 Thrombocythemia 03/08/2015 Anemia 03/08/2015 Social History Tobacco Use Types Packs/Day Years Used Date Smoking Tobacco: Every Day Sex and Gender Information Value Date Recorded Sex Assigned at Not on file Legal Sex Male 9:27 PM HOUSEHOLD COORDINATOR Gender Identity Not on file Sexual Orientation [...] 03/25/2020 3:09 AM CDT Plan of Treatment Not on file Procedures Procedure Name Priority Date/Time Associated Diagnosis Comments HEMOGLOBIN A1C Routine 03/24/2020 8:49 PM CDT OCCULT BLOOD, FECAL (FIT) Routine 01/23/2015 12:00 PM CDT TNI WITH LIPID PANEL Routine 01/22/2015 4:47 PM CDT from Last 3 Months or Most Recently Relevant to Health Maintenance Results * (ABNORMAL) Hemoglobin A1c (03/24/2020 8:49 PM CDT) Hemoglobin A1c % 8.9(H) 4.0 - 5.6 % [facility] Comment: ADA 2016 GUIDELINES: Initial Diagnostic Criteria HbA1c Result: Interpretation: <5.7% Normal 5.7-6.4% At risk for diabetes mellitus >=6.5% Consistent with diabetes mellitus Diabetes monitoring Target value (ADA Recommended) <7% 03/24/2020 8:49 PM CDT 03/24/2020 8:53 PM CDT Narrative Resulting Agency Comment IN us Milton Jacob MD LAB BLOOD ORDERABLES Final Result Performing Organization Address City/[facility]/ZIP Co de Phone Number [address] [phone] * Occult blood, fecal non neoplasm screening (01/23/2015 12:00 PM CDT) Stool Occult Blood NEGATIVE NEGATIVE 01/23/2015 2:57 PM CDT [facility] HISTORICAL RESULTS 01/23/2015 12:0 0 PM CDT 01/23/2015 2:36 PM CDT Narrative [facility] HISTORICAL RESULTS - 01/23/2015 2:57 PM CDT Collected By je us Carlos Bernabe MD LAB BODY FLUIDS AND ST OOLS ORDERABLES Final Result [facility] HISTORICAL RESULTS * (ABNORMAL) TNI with LIPID PANEL (01/22/2015 4:47 PM CDT) Troponin I < 0.300 0.000 - 0.300 ng/mL 01/22/2015 5:37 PM CDT [facility] HISTORICAL RESULTS Comment: Reference using [facility] Chemiluminescence Negative: Repeat in 4-6 hours as indicated. Triglycerides 544(H) 0 - 199 mg/dL 01/22/2015 5:39 PM CDT [facility] HISTORICAL RESULTS Comment: LDL (measured) to follow due to Triglycerides >250 mg/dL 12 hr pc highly recommended for Triglyceride Cholesterol 244(H) 0 - 199 mg/dL 01/22/2015 5:39 PM CDT [facility] HISTORICAL RESULTS Comment: Borderline: 200-239 High Risk: >239 HDL Cholesterol 28(L) 40 - 60 mg/dL 01/22/2015 5:39 PM CDT [facility] HISTORICAL RESULTS Comment: Major Risk < 40 mg/dL Moderate Risk 40-60 mg/dL Negative Risk > 60 mg/dL Cholesterol/HDL Ratio 8.7 01/22/2015 5:39 PM CDT [facility] HISTORICAL RESULTS Comment: Cholesterol / HDL Ratio 3.5:1 or less is desirable. Cholesterol / HDL Ratio greater than 5:1 is considered higher risk for developing heart disease. 01/22/2015 4:47 PM CDT 01/22/2015 4:53 PM CDT Narrative [facility] HISTORICAL RESULTS - 01/22/2015 5:39 PM CDT Jerry Tang MD LAB BLOOD ORDERABLES Cristine l Result [facility] HISTORICAL RESULTS from Last 3 Months or Most Recently Relevant to Health Maintenance Insurance [facility] Care Teams Pole Frame Construction Worker Relationship Specialty Start Date End Date Dina Cloud PA [address] [place] [phone] PCP - General Physician Uppers Edge Burnisher 08/28/23
--- OUTSIDE RECORDS SUMMARY | 2024-09-16 11:57 | XMS_ITS | Encounter Summary ---
Author Organization [facility] Address [address] [facility] [place] [address] Care Team Providers Care Domestic Cleaner Name Role Phone Dina Cloud PA-C Primary Care Provider Reason for Visit * Reason Onset Date Comments Medication Prior Auth Request 03/04/2024 Encounter Details Date Type Department Care Team (Late st Contact Info) Description 03/04/2024 Telephone [facility] - Cardiology [address] [facility] [address] [place] [address] Kika Ocampo PA [address] [place] [address] Medication Prior Auth Request Social History Tobacco Use Types Packs/Day Years [...] encounter Miscellaneous Notes * Telephone Encounter - Kika Ocampo PA - 03/16/2024 9:09 AM CDT I'm not sure that patient needs that medication. Dr. Bravo does want patient to start taking vascepa for high triglycerides though. * Telephone Encounter - Maria Guadalupe Kim - 03/04/2024 8:54 AM CDT Reason for call: Lexi (pts caregiver) called requesting a authorization for evolocumab (Repatha) 140 MG/ML prefilled syringe to the pts insurance for a refill Patient Call Back number: [phone] documented in this encounter Plan of Treatment Upcoming Encounters Date Type Department Care Team (Late st Contact Info) Description 09/20/2024 9:30 AM AUTOMOBILE PAINTER [facility]rology [address] [place] [address], [place] [address] Meredith Weiss MD [address] [place] [address] [place] [address] 10/18/2024 1:00 AM CDT Clinical Support [facility] - Cardiology [address] [place] [phone] 10/25/2024 9:00 AM CDT Office Visit [facility] - Cardiology [address] [place] [phone] Daily Bravo MD [address] [place] [address] 11/08/2024 3:40 PM CDT Office Visit [facility] - Endocrinology [address] [place] [phone] Garry Tracey MD [address] [place] [address] 2L [place] [address] 12/15/2024 2:00 PM CDT [facility] - Pulmonology [address] [place] [address] [place] [address] Becca Ford MD [address] [place] [address] 2L DIV [place] [address] 01/17/2025 1:10 AM CDT Clinical Support [facility] - Cardiology [address] [place] [phone] 02/24/2025 9:10 AM CDT [facility] Dermatology [address] [place] [phone] Robb Howell MD [address] [place] [address] 3[address] [place] [address] 03/02/2025 9:00 AM CDT Office Visit [facility] - Nephrology [address] [place] [phone] Nataliia Cooper MD [address] [place] [address] 3L [place] [address] 04/18/2025 1:10 AM CDT Clinical [facility] Cardiology [address] [place] [phone] 07/18/2025 1:10 AM AUTOMOBILE PAINTER Clinical Support [facility] - Cardiology [address] [place] [phone] documented as of this encounter Visit Diagnoses Not on filedocumented in this encounter Care Teams Domestic Cleaner Relationship Specialty Start Date End Date Dina Cloud PA-C [address] [place] [phone] PCP - General Physician Financial Management 07/10/20 documented as of this encounter
--- OUTSIDE RECORDS SUMMARY | 2024-09-16 11:57 | XMS_ITS | Encounter Summary ---
Author Organization [facility] Address [address] [place] [address] Care Team Providers Care Patron Attendant Name Role Phone Dina Cloud PA-C Primary Care Provider Reason for Visit * Reason Onset Date Comments Medication Prior Auth Request 11/20/2023 Encounter Details Date Type Department Care Team (Late st Contact Info) Description 11/20/2023 Telephone [facility] - Cardiology [address] [facility] [address] [place] [phone] Kika Ocampo, PA [address] [place] [address] Medication Prior Auth Request Social History Tobacco [...] encounter Miscellaneous Notes * Telephone Encounter - Maria Guadalupe Kim - 11/20/2023 9:14 AM CDT Pt's caregiver Mason called requesting if a authorization could be sent to pt's pharmacy regarding refilling his evolocumab (Repatha) 140 MG/ML prefilled syringe Call Back Number: [phone] documented in this encounter Plan of Treatment Upcoming Encounters Date Type Department Care Team (Late st Contact Info) Description 09/20/2024 9:30 AM GAS SPECIALIST Office Visit [facility] - Neurology [address] [place] [address], [place] [phone] Meredith Weiss MD [address] [place] [address] [address] [place] [phone] 10/18/2024 1:00 AM CDT Clinical Support [facility] - Cardiology [address] [place] [phone] 10/25/2024 9:00 AM CDT Office Visit [facility] - Cardiology [address] [place] [phone] Daily Bravo MD [address] [place] [phone] 11/08/2024 3:40 PM CDT Office Visit [facility] - Endocrinology [address] [place] [address], [place] [phone] Garry Tracey MD [address] [place] [address] [address] [place] [phone] 12/15/2024 2:00 PM CDT Office Visit [facility] - Pulmonology [address] [place] [phone] Becca Ford MD [address] [facility] [address] [place] [address] 01/17/2025 1:10 AM CDT Clinical Support [facility] - Cardiology [address] [facility], [address] [phone] 02/24/2025 9:10 AM CDT Office Visit [facility] - Dermatology [address] [place] [address], [place] [phone] Robb Howell MD [address] [facility] [address] [place] [address] 03/02/2025 9:00 AM CDT Office Visit [facility] - Nephrology [address] [place] [address], [place] [phone] Nataliia Cooper MD [address] [facility] [address] [place] [address] 04/18/2025 1:10 AM CDT Clinical Support [facility] - Cardiology [address] [facility], [address] [phone] 07/18/2025 1:10 AM GAS SPECIALIST Clinical Support [facility] - Cardiology [address] [facility], [address] [phone] documented as of this encounter Visit Diagnoses Not on filedocumented in this encounter Care Teams Patron Attendant Relationship Specialty Start Date End Date Dina Cloud PA-C [address] [place] [phone] PCP - General Physician Recruiter Manager 07/10/20 documented as of this encounter
--- NOTE | 2024-09-16 13:46 | ED.NAVMDI ---
HPI - Nausea/Vomiting/Diarrhea General Chief complaint: Nausea/Vomiting/Diarrhea <Leigh Riley PA-C - Last Filed: 09/16/24 13:51> Stated complaint: n/v/d <Leigh Riley PA-C - Last Filed: 09/16/24 13:51> Time Seen by Provider: 09/16/24 15:20 <Leigh Riley PA-C - Last Filed: 09/16/24 13:51> Focused HPI: 64-year-old male presents to the ED with caregiver at bedside for 1 day of altered mental status, N/V/D. Patient reporting abdominal pain. He seems more confused than normal per caregiver. He is unable to tell me what month and year it is which is new. He is reporting subjective fever, cough and congestion, chest pain and shortness of breath, abdominal pain, N/V/D. GENERAL: Ill-appearing, well-nourished, and in no acute distress. HEAD: Normocephalic, atraumatic. CHEST: Clear to auscultation. ?No respiratory distress. HEART: Regular rate and rhythm.? NEURO: ?Alert and oriented x3. Moving all extremities spontaneously. Says i dont know when asked month and year. Patient screened in triage and initial orders placed.? ?Additional care and disposition to be based upon?diagnostic testing and treatment. <Leigh Riley PA-C - Last Filed: 09/16/24 13:51> History of Present Illness HPI Narrative: I agree the above HPI <Russel Lucas MD - Last Filed: 09/16/24 21:27> Related Data Home medications: Home Medications ?Medication ?Instructions ?Recorded ?Confirmed ?Last Taken ?Type amitriptyline 100 mg tablet 100 mg PO HS 03/12/20 02/23/23 Unknown History atorvastatin 80 mg tablet 80 mg PO HS 03/12/20 02/23/23 Unknown History clopidogrel 75 mg tablet 75 mg PO DAILY 03/12/20 02/23/23 05/28/20 07:30 History ergocalciferol (vitamin D2) 1,250 1,250 mcg PO WEEKLY 03/12/20 02/23/23 Unknown History mcg (50,000 unit) capsule folic acid 1 mg tablet 1 mg PO DAILY 03/12/20 02/23/23 Unknown History hydroxyurea 500 mg capsule 500 mg PO DAILY 03/12/20 02/23/23 Unknown History levetiracetam 250 mg tablet 250 mg PO BID 03/12/20 02/23/23 Unknown History lisinopril 20 mg tablet 20 mg PO DAILY 03/12/20 02/23/23 Unknown History metoprolol succinate 50 mg 25 mg PO DAILY 03/12/20 02/23/23 Unknown History tablet,extended release 24 hr aspirin 81 mg chewable tablet 81 mg PO DAILY 05/28/20 02/23/23 05/28/20 07:30 History blood-glucose meter,continuous 02/23/23 02/23/23 Unknown History ([employer] G7 Filler Wiper) blood-glucose sensor ([employer]excom G7 02/23/23 02/23/23 Unknown History Sensor device) dulaglutide 0.75 mg/0.5 mL 0.75 mg subcut WEEKLY 02/23/23 02/23/23 Unknown History subcutaneous pen injector (Trulicity) empagliflozin 10 mg tablet 10 mg PO DAILY 02/23/23 02/23/23 Unknown History (Jardiance) evolocumab 140 mg/mL subcutaneous 140 mg subcut [id number] 02/23/23 02/23/23 Unknown History syringe (Repatha Syringe) famotidine 20 mg tablet 20 mg PO BID 02/23/23 02/23/23 Unknown History hydrocodone 10 mg-acetaminophen 1 tablet PO Q6H PRN Pain 02/23/23 02/23/23 Unknown History 325 mg tablet insulin glargine 100 unit/mL 45 unit subcut HS 02/23/23 02/23/23 Unknown History subcutaneous solution (Lantus U-100 Insulin) insulin lispro 100 unit/mL See Rx Instructions .Route .COMPLEX 02/23/23 02/23/23 Unknown History subcutaneous pen oxybutynin chloride 15 mg 15 mg PO DAILY 02/23/23 02/23/23 Unknown History tablet,extended release 24 hr tamsulosin 0.4 mg capsule 0.4 mg PO HS 02/23/23 02/23/23 Unknown History <Leigh Riley PA-C - Last Filed: 09/16/24 13:51> Allergies/Adverse reactions: Allergies Allergy/AdvReac Type Severity Reaction Status Date / Time Penicillins Allergy Unknown Other Verified 09/16/24 15:50 <Leigh Riley PA-C - Last Filed: 09/16/24 13:51> Review of Systems Review of Systems: All systems reviewed & are unremarkable except as noted in HPI and below <Russel Lucas MD - Last Filed: 09/16/24 21:27> [facility] Past Medical History Medical History: Medical History (Updated 09/16/24 @ 19:39 by Elizabeth Elkins APRN) Prostate abscess Chronic anemia Chronic obstructive pulmonary disease Tobacco dependence Type 2 diabetes mellitus Cerebrovascular accident 2015: Right frontoparietal CVA with left hemiparesis. January 2019: Left parietooccipital CVA presenting with confusion and aphasia. 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 Obstructive sleep apnea Refuses CPAP. Chronic kidney disease, stage 3 Baseline creatinine is around 1.4. Vitamin D deficiency Coronary artery disease Patient reports history of 2 MIs; no history of cardiac catheterization. 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 <Leigh Riley PA-C - Last Filed: 09/16/24 13:51> Surgical History Surgical History: Surgical History (Updated 09/16/24 @ 19:18 by Elizabeth Elkins APRN) History of back surgery History of permanent cardiac pacemaker placement Due to sick sinus rhythm. History of transurethral resection of prostate History of hernia surgery <Leigh Riley PA-C - Last Filed: 09/16/24 13:51> Family History Family History: Family History Mother Cerebrovascular accident Acute myocardial infarction Hypertension Father Diabetes mellitus Cerebrovascular accident Hypertension <Leigh Riley PA-C - Last Filed: 09/16/24 13:51> Social History Social History: Social History (Updated 02/23/23 @ 13:24 by Ros Cordova PA-C) Social History: Surrogate decision maker: Darling Rivers (sister). Code status: Full code. Smoking packs per day: 1 Smoking cigarettes per day: 20.0 Years smoked: 45 Smoking pack-years: 45.00 Smoking status: Current every day smoker Tobacco type: cigarettes Alcohol intake: current Drinks per week: 1 Substance use: never Substance use type: marijuana and methamphetamine Other substance usage details: daily Last use: 02/22/2023 Do You Feel Safe in your Home?: Yes Lack of Transportation: No Lack of Food: Never True Current Housing: I Have Housing Concerned About Future Housing: No Difficulty Paying Gas/Electric Bills: No Difficulty Paying for Meds: No Currently Unemployed: No Education: High School Diploma/GED Difficulty w/ Childcare or Family Care: No Living arrangements: alone Additional living arrangements comments: The patient lives in his own apartment in [place]. Occupation/Education: unemployed Additional occupation/education comments: On disability. Spiritual care concerns: No <Leigh Riley PA-C - Last Filed: 09/16/24 13:51> Exam Narrative: APPEARANCE: Agitated. Restless HEAD: normocephalic, atraumatic. EYES: PERRLA/EOMI, conjunctivae clear. NOSE: Normal no drainage EARS:TMS clear with good light reflex. THROAT: Pharynx clear, no exudate. NECK: Supple. No adenopathy, no masses. RESPIRATORY: Airway patent, respirations nonlabored. Clear to auscultation bilaterally, no rales, rhonchi, wheezing. CARDIOVASCULAR: Regular rate and rhythm without murmurs rubs or gallops. ABDOMINAL: Soft, nontender, nondistended, normal bowel sounds MUSCULOSKELETAL: Moves all extremities. Strength/ROM intact, No edema, No calf tenderness. NEURO: Alert. Cranial nerves II through XII intact. Good gait. Good coordination SKIN: Warm, dry. Normal Color PSYCHIATRIC: Anxious affect <Russel Lucas MD - Last Filed: 09/16/24 21:27> Course Vital Signs Vital signs: Vital Signs Temperature 97.6 F 09/16/24 12:08 Pulse Rate 80 09/16/24 12:08 Respiratory Rate 16 09/16/24 12:08 Blood Pressure 150/71 H 09/16/24 12:08 Pulse Oximetry 100 09/16/24 12:08 Temperature 99.1 F 09/16/24 20:06 Pulse Rate 100 09/16/24 20:06 Respiratory Rate 22 H 09/16/24 20:06 Blood Pressure 194/90 H 09/16/24 20:06 Pulse Oximetry 99 09/16/24 20:06 <Leigh Riley PA-C - Last Filed: 09/16/24 13:51> Vital Signs Temperature 97.6 F 09/16/24 12:08 Pulse Rate 80 09/16/24 12:08 Respiratory Rate 16 09/16/24 12:08 Blood Pressure 150/71 H 09/16/24 12:08 Pulse Oximetry 100 09/16/24 12:08 Temperature 99.1 F 09/16/24 20:06 Pulse Rate 100 09/16/24 20:06 Respiratory Rate 22 H 09/16/24 20:06 Blood Pressure 194/90 H 09/16/24 20:06 Pulse Oximetry 99 09/16/24 20:06 <Russel Lucas MD - Last Filed: 09/16/24 21:27> MDM - Nausea/Vomiting/Diarrhea MDM Narrative Medical decision making narrative: 64-year-old male presenting emergency department for evaluation for nausea vomiting diarrhea. Patient reportedly had abdominal pain at home but patient denies any current abdominal pain. Patient is currently afebrile but does have a leukocytosis of 16.3 and hemoglobin of 16.1. Patient's INR is 1.1. Patient did have a lactic acid of 2.8. Patient does have CONNIE and patient was treated with IV fluids. Patient had nonspecific changes to his EKG. Patient denies any current chest pain or abdominal pain. Patient's troponin was elevated 0.045 and this was similar to his recent baseline. UA was negative for infection. Patient did test positive for methamphetamines and cannabinoids. Patient does admit to smoking marijuana but denies any methamphetamine use. No evidence of stimulants on his medication list. Patient was negative for influenza RSV and for COVID. CT head showed no acute intracranial abnormality. CT abdomen pelvis showed no acute pathology. CTA chest was negative for pulmonary embolism. Patient was treated with IV fluids and Ativan in the emergency department. This did help his psychomotor agitation. Case was discussed with hospitalist and patient was admitted to the IMU. <Russel Lucas MD - Last Filed: 09/16/24 21:27> Differential Diagnosis Differential diagnosis: Likely traveler's diarrhea, food poisoning, gastroenteritis, dehydration and other <Russel Lucas MD - Last Filed: 09/16/24 21:27> Lab Data Attestation: I reviewed the patient's lab results. <Russel Lucas MD - Last Filed: 09/16/24 21:27> Result diagrams: 09/16/24 15:36 09/16/24 15:36 <Leigh Riely PA-C - Last Filed: 09/16/24 13:51> Labs: Lab Results 09/16/24 09/16/24 09/16/24 Range/Units 14:54 15:36 15:36 WBC 16.3 H (4.5-10.0) K/mm3 RBC 4.54 L (4.6-6.20) M/mm3 Hgb 16.1 D (14.0-18.0) g/dL Hct 45.9 (42.0-52.0) % MCV 101.1 H (80-100) fl MCH 35.5 H (26-34) pg MCHC 35.1 (32-36) g/dl RDW 13.8 (11.5-14.5) % Plt Count 344 D (150-375) k/mm3 MPV 9.6 (7.4-10.4) fl Immature Gran % (Auto) 0.4 (0-0.5) % Neut % (Auto) 71.5 (45.5-73.1) % Lymph % (Auto) 20.1 (18.3-44.2) % [place] % (Auto) 7.5 (2.6-8.5) % Eos % (Auto) 0.3 (0-4.4) % Baso % (Auto) 0.2 (0.2-1.2) % Lymph # (Auto) 3.28 H (0.9-3.2) K/mm3 [place] # (Auto) 1.2 H (0.1-0.6) K/mm3 Eos # (Auto) 0.1 (0-0.3) K/mm3 Baso # (Auto) 0.0 (0.0-0.1) K/mm3 Abs Immat Gran (auto) 0.07 H (0.00-0.031) K/mm3 Absolute Neuts (auto) 11.7 H (1.3-6.7) K/mm3 Absolute Nucleated RBC 0.000 (0.0-0.012) K/mm3 Nucleated RBC % 0.0 (0.0-0.2) % PT 14.2 (11.1-14.7) Seconds INR 1.1 APTT 26.8 (22.3-36.8) Seconds Sodium 136 L (137-145) mmol/L Potassium 4.3 (3.4-5.0) mmol/L Chloride 98 (98-107) mmol/L Carbon Dioxide 18 L (22-30) mmol/L Anion Gap 20 H (4-12) mmol/L BUN 21 H (9-20) mg/dL Creatinine 1.80 H 1.45 H (0.8-1.5) mg/dL Estim Creat Clear Calc Not Reportable Not Reportable Estimated GFR 38 L 49 L (59 - ) Glucose 192 H (65-110) mg/dL Lactic Acid 2.8 H (0.7-2.0) mmol/L Calcium 11.6 H (8.4-10.2) mg/dL Magnesium 1.6 (1.6-2.3) mg/dL Total Bilirubin 0.9 (0.2-1.3) mg/dL AST 32 (17-59) U/L ALT 32 (6-50) U/L Alkaline Phosphatase 142 H (38-126) U/L Ammonia (9-30) umol/L Total Creatine Kinase Cancelled 535 H Troponin I Cancelled Total Protein (6.3-8.2) g/dL Albumin (3.5-5.1) g/dL Lipase (23-300) U/L TSH TSH (Reflex) (0.465-4.68) uIU/mL Urine Color (Yellow) Urine Appearance (Clear) Urine pH (5.0-9.0) Ur Specific [place] (1.001-1.035) Urine Protein (Negative) mg/dL Urine Glucose (UA) (Negative) mg/dL Urine Ketones (Negative) mg/dL Ur Blood (Man) (Negative) Urine Nitrate (Negative) Urine Bilirubin (Negative) Urine Urobilinogen (<2.0) mg/dL Leukocyte Esterase Rfl (Negative) FERNANDO/UL Urine RBC (0-2) /hpf Urine WBC (0-3) /hpf Ur Squamous Epith Cells (Few) /hpf Urine Bacteria /hpf Urine Casts Hyaline Casts (None) /lpf Urine Opiates Screen (Negative) Urine Methadone Screen (Negative) Ur Barbiturates Screen (Negative) Ur Phencyclidine Scrn (Negative) Ur Amphetamine Screen (Negative) U Benzodiazepines Scrn (Negative) Urine Cocaine Screen (Negative) U Cannabinoids Screen (Negative) Ethyl Alcohol (<10) mg/dL Influenza A (RT-PCR) (Negative) Influenza B (RT-PCR) (Negative) RSV (RT-PCR) (Negative) SARS-CoV-2 RNA (RT-PCR) (Negative) 09/16/24 09/16/24 09/16/24 Range/Units 15:36 15:44 16:21 WBC (4.5-10.0) K/mm3 RBC (4.6-6.20) M/mm3 Hgb (14.0-18.0) g/dL Hct (42.0-52.0) % MCV (80-100) fl MCH (26-34) pg MCHC (32-36) g/dl RDW (11.5-14.5) % Plt Count (150-375) k/mm3 MPV (7.4-10.4) fl Immature Gran % (Auto) (0-0.5) % Neut % (Auto) (45.5-73.1) % Lymph % (Auto) (18.3-44.2) % [place] % (Auto) (2.6-8.5) % Eos % (Auto) (0-4.4) % Baso % (Auto) (0.2-1.2) % Lymph # (Auto) (0.9-3.2) K/mm3 [place] # (Auto) (0.1-0.6) K/mm3 Eos # (Auto) (0-0.3) K/mm3 Baso # (Auto) (0.0-0.1) K/mm3 Abs Immat Gran (auto) (0.00-0.031) K/mm3 Absolute Neuts (auto) (1.3-6.7) K/mm3 Absolute Nucleated RBC (0.0-0.012) K/mm3 Nucleated RBC % (0.0-0.2) % PT (11.1-14.7) Seconds INR APTT (22.3-36.8) Seconds Sodium (137-145) mmol/L Potassium (3.4-5.0) mmol/L Chloride (98-107) mmol/L Carbon Dioxide (22-30) mmol/L Anion Gap (4-12) mmol/L BUN (9-20) mg/dL Creatinine (0.8-1.5) mg/dL Estim Creat Clear Calc Estimated GFR (59 - ) Glucose (65-110) mg/dL Lactic Acid (0.7-2.0) mmol/L Calcium (8.4-10.2) mg/dL Magnesium (1.6-2.3) mg/dL Total Bilirubin (0.2-1.3) mg/dL AST (17-59) U/L ALT (6-50) U/L Alkaline Phosphatase (38-126) U/L Ammonia < 9 L (9-30) umol/L Total Creatine Kinase Troponin I 0.045 H* Total Protein 8.0 (6.3-8.2) g/dL Albumin 4.7 (3.5-5.1) g/dL Lipase 76 (23-300) U/L TSH Cancelled TSH (Reflex) 1.840 (0.465-4.68) uIU/mL Urine Color Yellow (Yellow) Urine Appearance Clear (Clear) Urine pH 5.5 (5.0-9.0) Ur Specific [place] > 1.045 H (1.001-1.035) Urine Protein 4+ H (Negative) mg/dL Urine Glucose (UA) 3+ H (Negative) mg/dL Urine Ketones 2+ H (Negative) mg/dL Ur Blood (Man) 2+ H (Negative) Urine Nitrate Negative (Negative) Urine Bilirubin Negative (Negative) Urine Urobilinogen 0.2 (<2.0) mg/dL Leukocyte Esterase Rfl Negative (Negative) FERNANDO/UL Urine RBC 3-5 H (0-2) /hpf Urine WBC 0-5 (0-3) /hpf Ur Squamous Epith Cells None seen (Few) /hpf Urine Bacteria None seen /hpf Urine Casts 11-20 Hyaline Casts Present (None) /lpf Urine Opiates Screen Negative (Negative) Urine Methadone Screen Negative (Negative) Ur Barbiturates Screen Negative (Negative) Ur Phencyclidine Scrn Negative (Negative) Ur Amphetamine Screen Positive A (Negative) U Benzodiazepines Scrn Negative (Negative) Urine Cocaine Screen Negative (Negative) U Cannabinoids Screen Positive A (Negative) Ethyl Alcohol < 10 (<10) mg/dL Influenza A (RT-PCR) Negative (Negative) Influenza B (RT-PCR) Negative (Negative) RSV (RT-PCR) Negative (Negative) SARS-CoV-2 RNA (RT-PCR) Negative (Negative) <Leigh Riley PA-C - Last Filed: 09/16/24 13:51> Lab Results 09/16/24 09/16/24 09/16/24 Range/Units 14:54 15:36 15:36 WBC 16.3 H (4.5-10.0) K/mm3 RBC 4.54 L (4.6-6.20) M/mm3 Hgb 16.1 D (14.0-18.0) g/dL Hct 45.9 (42.0-52.0) % MCV 101.1 H (80-100) fl MCH 35.5 H (26-34) pg MCHC 35.1 (32-36) g/dl RDW 13.8 (11.5-14.5) % Plt Count 344 D (150-375) k/mm3 MPV 9.6 (7.4-10.4) fl Immature Gran % (Auto) 0.4 (0-0.5) % Neut % (Auto) 71.5 (45.5-73.1) % Lymph % (Auto) 20.1 (18.3-44.2) % [place] % (Auto) 7.5 (2.6-8.5) % Eos % (Auto) 0.3 (0-4.4) % Baso % (Auto) 0.2 (0.2-1.2) % Lymph # (Auto) 3.28 H (0.9-3.2) K/mm3 [place] # (Auto) 1.2 H (0.1-0.6) K/mm3 Eos # (Auto) 0.1 (0-0.3) K/mm3 Baso # (Auto) 0.0 (0.0-0.1) K/mm3 Abs Immat Gran (auto) 0.07 H (0.00-0.031) K/mm3 Absolute Neuts (auto) 11.7 H (1.3-6.7) K/mm3 Absolute Nucleated RBC 0.000 (0.0-0.012) K/mm3 Nucleated RBC % 0.0 (0.0-0.2) % PT 14.2 (11.1-14.7) Seconds INR 1.1 APTT 26.8 (22.3-36.8) Seconds Sodium 136 L (137-145) mmol/L Potassium 4.3 (3.4-5.0) mmol/L Chloride 98 (98-107) mmol/L Carbon Dioxide 18 L (22-30) mmol/L Anion Gap 20 H (4-12) mmol/L BUN 21 H (9-20) mg/dL Creatinine 1.80 H 1.45 H (0.8-1.5) mg/dL Estim Creat Clear Calc Not Reportable Not Reportable Estimated GFR 38 L 49 L (59 - ) Glucose 192 H (65-110) mg/dL Lactic Acid 2.8 H (0.7-2.0) mmol/L Calcium 11.6 H (8.4-10.2) mg/dL Magnesium 1.6 (1.6-2.3) mg/dL Total Bilirubin 0.9 (0.2-1.3) mg/dL AST 32 (17-59) U/L ALT 32 (6-50) U/L Alkaline Phosphatase 142 H (38-126) U/L Ammonia (9-30) umol/L Total Creatine Kinase Cancelled 535 H Troponin I Cancelled Total Protein (6.3-8.2) g/dL Albumin (3.5-5.1) g/dL Lipase (23-300) U/L TSH TSH (Reflex) (0.465-4.68) uIU/mL Urine Color (Yellow) Urine Appearance (Clear) Urine pH (5.0-9.0) Ur Specific [place] (1.001-1.035) Urine Protein (Negative) mg/dL Urine Glucose (UA) (Negative) mg/dL Urine Ketones (Negative) mg/dL Ur Blood (Man) (Negative) Urine Nitrate (Negative) Urine Bilirubin (Negative) Urine Urobilinogen (<2.0) mg/dL Leukocyte Esterase Rfl (Negative) FERNANDO/UL Urine RBC (0-2) /hpf Urine WBC (0-3) /hpf Ur Squamous Epith Cells (Few) /hpf Urine Bacteria /hpf Urine Casts Hyaline Casts (None) /lpf Urine Opiates Screen (Negative) Urine Methadone Screen (Negative) Ur Barbiturates Screen (Negative) Ur Phencyclidine Scrn (Negative) Ur Amphetamine Screen (Negative) U Benzodiazepines Scrn (Negative) Urine Cocaine Screen (Negative) U Cannabinoids Screen (Negative) Ethyl Alcohol (<10) mg/dL Influenza A (RT-PCR) (Negative) Influenza B (RT-PCR) (Negative) RSV (RT-PCR) (Negative) SARS-CoV-2 RNA (RT-PCR) (Negative) 09/16/24 09/16/24 09/16/24 Range/Units 15:36 15:44 16:21 WBC (4.5-10.0) K/mm3 RBC (4.6-6.20) M/mm3 Hgb (14.0-18.0) g/dL Hct (42.0-52.0) % MCV (80-100) fl MCH (26-34) pg MCHC (32-36) g/dl RDW (11.5-14.5) % Plt Count (150-375) k/mm3 MPV (7.4-10.4) fl Immature Gran % (Auto) (0-0.5) % Neut % (Auto) (45.5-73.1) % Lymph % (Auto) (18.3-44.2) % [place] % (Auto) (2.6-8.5) % Eos % (Auto) (0-4.4) % Baso % (Auto) (0.2-1.2) % Lymph # (Auto) (0.9-3.2) K/mm3 [place] # (Auto) (0.1-0.6) K/mm3 Eos # (Auto) (0-0.3) K/mm3 Baso # (Auto) (0.0-0.1) K/mm3 Abs Immat Gran (auto) (0.00-0.031) K/mm3 Absolute Neuts (auto) (1.3-6.7) K/mm3 Absolute Nucleated RBC (0.0-0.012) K/mm3 Nucleated RBC % (0.0-0.2) % PT (11.1-14.7) Seconds INR APTT (22.3-36.8) Seconds Sodium (137-145) mmol/L Potassium (3.4-5.0) mmol/L Chloride (98-107) mmol/L Carbon Dioxide (22-30) mmol/L Anion Gap (4-12) mmol/L BUN (9-20) mg/dL Creatinine (0.8-1.5) mg/dL Estim Creat Clear Calc Estimated GFR (59 - ) Glucose (65-110) mg/dL Lactic Acid (0.7-2.0) mmol/L Calcium (8.4-10.2) mg/dL Magnesium (1.6-2.3) mg/dL Total Bilirubin (0.2-1.3) mg/dL AST (17-59) U/L ALT (6-50) U/L Alkaline Phosphatase (38-126) U/L Ammonia < 9 L (9-30) umol/L Total Creatine Kinase Troponin I 0.045 H* Total Protein 8.0 (6.3-8.2) g/dL Albumin 4.7 (3.5-5.1) g/dL Lipase 76 (23-300) U/L TSH Cancelled TSH (Reflex) 1.840 (0.465-4.68) uIU/mL Urine Color Yellow (Yellow) Urine Appearance Clear (Clear) Urine pH 5.5 (5.0-9.0) Ur Specific [place] > 1.045 H (1.001-1.035) Urine Protein 4+ H (Negative) mg/dL Urine Glucose (UA) 3+ H (Negative) mg/dL Urine Ketones 2+ H (Negative) mg/dL Ur Blood (Man) 2+ H (Negative) Urine Nitrate Negative (Negative) Urine Bilirubin Negative (Negative) Urine Urobilinogen 0.2 (<2.0) mg/dL Leukocyte Esterase Rfl Negative (Negative) FERNANDO/UL Urine RBC 3-5 H (0-2) /hpf Urine WBC 0-5 (0-3) /hpf Ur Squamous Epith Cells None seen (Few) /hpf Urine Bacteria None seen /hpf Urine Casts 11-20 Hyaline Casts Present (None) /lpf Urine Opiates Screen Negative (Negative) Urine Methadone Screen Negative (Negative) Ur Barbiturates Screen Negative (Negative) Ur Phencyclidine Scrn Negative (Negative) Ur Amphetamine Screen Positive A (Negative) U Benzodiazepines Scrn Negative (Negative) Urine Cocaine Screen Negative (Negative) U Cannabinoids Screen Positive A (Negative) Ethyl Alcohol < 10 (<10) mg/dL Influenza A (RT-PCR) Negative (Negative) Influenza B (RT-PCR) Negative (Negative) RSV (RT-PCR) Negative (Negative) SARS-CoV-2 RNA (RT-PCR) Negative (Negative) <Russel Lucas MD - Last Filed: 09/16/24 21:27> Imaging Data Radiologist's impression: Impressions Chest X-Ray 09/16/24 15:18 Impression: 1: No acute cardiopulmonary disease. Head CT 09/16/24 15:21 IMPRESSION: 1. No acute intracranial process. 2. 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 3. Left otomastoiditis effusion. Abdomen/Pelvis CT 09/16/24 15:23 IMPRESSION: No acute intra-abdominal pathology, as detailed above. Chest CTA 09/16/24 17:05 IMPRESSION: 1. No pulmonary embolism. Assessment limited in the basilar segmental and nondiagnostic in the basilar subsegmental pulmonary arteries due to respiratory motion. 2. Cardiomegaly. 3. Small sliding-type hiatal hernia versus esophagitis with wall thickening at the distal esophagus. <Russel Lucas MD - Last Filed: 09/16/24 21:27> Discharge Plan Discharge Clinical Impression: Altered mental status, Elevated troponin, CONNIE (acute kidney injury) Nausea & vomiting Qualifiers: Vomiting type: unspecified Qualified Code(s): R11.2 - Nausea with vomiting, unspecified <Leigh Riley PA-C - Last Filed: 09/16/24 13:51> Patient Disposition: Still a Patient <Leigh Riley PA-C - Last Filed: 09/16/24 13:51> Condition: Serious <Leigh Riley PA-C - Last Filed: 09/16/24 13:51>
--- OUTSIDE RECORDS SUMMARY | 2024-09-16 14:06 | XMS_ITS | Encounter Summary ---
Author Organization [facility] Address [address] [facility] [address] Care Team Providers Care Beef Farmer Name Role Phone Ramandeep Ann Primary Care Provider Dina CloudC Primary Care Provider Encounter Details Date Type Department Care Team (Late st Contact Info) Description 11/19/2017 Telephone [facility] IVR [address] [place] [address] Jack Carnes, RN Social History [...] lower back about two years ago at [facility] , and he said he is not [...] st Contact Info) Description 09/20/2024 9:30 AM BI TECHNICAL LEAD Office Visit [facility] - Neurology [address] [place] [address], [place] [phone] Meredith Weiss MD [address] [place] [address] 1L [place] [phone] 10/18/2024 1:00 AM CDT [facility] [address] [place] [phone] 10/25/2024 9:00 AM CDT Office Visit [facility] - Cardiology [address] [place] [phone] Daily Bravo MD [address] [place] [address] 11/08/2024 3:40 PM CDT Office Visit [facility] - Endocrinology [address] [place] [address], [place] [phone] Garry Tracey MD [address] [place] [address] 2L [place] [phone] 12/15/2024 2:00 PM CDT Office Visit [facility] - Pulmonology [address] [place] [address], [place] [phone] Becca Ford MD [facility]5 [facility] 2L DIV OF GEN [place] [address] 01/17/2025 1:10 AM CDT [facility] [address] [phone] 02/24/2025 9:10 AM CDT Office Visit [facility] - Dermatology [address] [place] [phone] Robb Howell MD [address] [facility] 3L [place] [address] 03/02/2025 9:00 AM CDT Office Visit [facility] - Nephrology [address] [place] [phone] Nataliia Cooper MD [facility]5 [facility] 3L [place] [address] 04/18/2025 1:10 AM CDT Clinical Support [facility] - Cardiology [address] [place] [phone] 07/18/2025 1:10 AM BI TECHNICAL LEAD Clinical Support [facility] - Cardiology [address] [place] [phone] documented as of this encounter Visit Diagnoses Not on filedocumented in this encounter Care Teams Beef Farmer Relationship Specialty Start Date End Date Ramandeep Ann, POSTAL SORTING OFFICER-DIVISION OPERATIONS MANAGER [address] [place] [phone] PCP - General 03/17/17 07/09/20 Dina Cloud PA-C [address] [place] [phone] PCP - General Physician Retail Business Analyst 07/10/20 documented as of this encounter
--- OUTSIDE RECORDS SUMMARY | 2024-09-16 14:06 | XMS_ITS | Encounter Summary ---
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 [address] [place] [address] PCP - General NURSE PRACTITIONER 05/04/18 10/31/18 Dina Cloud PA-C [address] [place] [address] PCP - General NURSE PRACTITIONER 05/19/19 [facility] [address] [place] [address] [place] Wholesale Diamond Broker CARDIOVASCULAR DISEASE 01/02/16 Chai Junior MD [facility] [address] [place], [place] [address] EP Wholesale Diamond Broker CARDIOVASCULAR DISEASE 09/03/16 documented as of this encounter
--- OUTSIDE RECORDS SUMMARY | 2024-09-16 14:06 | XMS_ITS | Encounter Summary ---
Author Organization [facility] Address [facility] [place] [address] Care Team Providers Care Roving Can Tender Name Role Phone Joseph Ann MD Unavailable [phone] Chai Junior MD Unavailable Dina Cloud PA-C Primary Care Provider [phone] Encounter Details Date Type Department Care Team (Late st Contact Info) Description 08/12/2019 [facility] at [address] [address] Baudilio [place] Social History Tobacco Use [...] Final * BASIC METABOLIC PANEL (02/21/2019) Pathologist [facility] SODIUM S/P/B 134 137 - 145 POTASSIUM [...] Final Result * VITAMIN B-12 (02/21/2019) Pathologist [facility] VITAMIN B12 S/P/B 470 239 - 931 02/21/2019 [facility] LABORATORY Final Result * FOLATE (OUTSIDE LAB) (02/21/2019) Pathologist [facility] FOLATE >20.0 02/21/2019 us Doc [facility] LAB-OUTSIDE/ABSTRACTED Final Result * LIPID PANEL (02/20/2019) Pathologist [facility] CHOLESTEROL 129 0 - 200 HDL 27 TRIGLYCERIDES 241 <150 LDL (CALCULATED) 79 02/20/2019 us [facility]ORAT[facility] Final Result * PROTIME (OUTSIDE LAB) (02/20/2019) Pathologist [facility] PROTIME 13.1 INR 1.0 02/20/2019 us Doc [facility] Abstract LAB-OUTSIDE/ABSTRACTED Final Result documented in this encounter Visit Diagnoses Not on filedocumented in this encounter Care Teams Roving Can Tender Relationship Specialty Start Date End Date Dina Cloud PA-C [address] [place] [address] PCP - General NURSE PRACTITIONER 05/19/19 Joseph Ann MD [facility] [address] [place] [address] [place] [employer] Principal CARDIOVASCULAR DISEASE 01/02/16 Chai Junior MD [facility] [address] [place] [address] EP Middle [employer] Principal CARDIOVASCULAR DISEASE 09/03/16 documented as of this encounter
--- OUTSIDE RECORDS SUMMARY | 2024-09-16 14:06 | XMS_ITS | Encounter Summary ---
Author Organization [facility] Address [facility] [place] [address] Care Team Providers Care Erp Implementation Consultant Name Role Phone Joseph Ann MD Unavailable [phone] Chai Junior MD Unavailable Dina Cloud PA-C Primary Care Provider [phone] Encounter Details Date Type Department Care Team (Late st Contact Info) Description 07/20/2020 [employer] Message Enc [place], [address] [address] [employer], [facility] Provider Missed Carelink Transmission Social [...] COVID-19? No / Unsure 07/17/2020 11:50 AM LAPPING MACHINE OPERATOR documented as of this encounter Plan of Treatment Not on file documented as of this encounter Visit Diagnoses Not on filedocumented in this encounter Care Teams Erp Implementation Consultant Relationship Specialty Start Date End Date Dina Cloud PA-C [facility] [place] [address] PCP - General NURSE PRACTITIONER 05/19/19 Joseph Ann MD Three [facility]. [address] [place] [address] [place] Scallop Shucker CARDIOVASCULAR DISEASE 01/02/16 Chai Junior MD [facility]. [address] [place], [place] [address] EP Scallop Shucker CARDIOVASCULAR DISEASE 09/03/16 documented as of this encounter
--- OUTSIDE RECORDS SUMMARY | 2024-09-16 14:06 | XMS_ITS | Encounter Summary ---
Author Organization [facility] Address [address] [place] [address] Phone Care Team Providers Care Biomedical Service Engineer Name Role Phone Provider, Unknown Primary Care Provider Unavaila Dina Yepez Primary Care Provider [phone] Lefty Sousa MD Unavailable [phone] Encounter Details Date Type Department Care Team (Late st Contact Info) Description 03/08/2020 Telephone [facility] [address] [place] [address] Lefty Sousa MD [address] [address] [address] [address] Social History Tobacco Use Types Packs/Day Years Used Date Smoking Tobacco: Every Day Cigarettes 1 50.1 Started: 08/03/1974 Smokeless Tobacco: Never Alcohol Use Standard Drinks/Week Comments No 0 (1 standard drink = 0.6 oz pur e alcohol) PHQ-2 Answer Date Recorded PHQ-2 Score 0 04/05/2019 Sex and Gender Information Value Date Recorded Sex Assigned at Not on file Legal Sex Male 11:32 AM QUILL BUNCHER AND SORTER Gender Identity Not on file Sexual Orientation Not on file documented as of this encounter Miscellaneous Notes * Telephone Encounter - Cynthia Torres - 03/08/2020 3:17 PM CDT Patient no showed appointment and called his number but couldn't leave a voice message. Will send out a no show letter. documented in this encounter Plan of Treatment Upcoming Encounters Date Type Department Care Team (Late st Contact Info) Description 12/09/2024 8:30 AM CDT Office Visit [facility] [address] [place] [address] Lefty Sousa MD [address] [place] [address] [id number] documented as of this encounter Visit Diagnoses Not on filedocumented in this encounter Additional Health Concerns Assessment Noted Time PHQ-9 Depression Total Score: 0 11/03/19 8:14 AM CDT documented as of this encounter Care Teams Biomedical Service Engineer Relationship Specialty Start Date End Date Provider, Unknown UNKNOWN PCP - General Primary Care 07/14/18 05/24/20 Dina Cloud PAC [address] [place] [address] PCP - General Physician Lsat Instructor 05/25/20 Lefty Sousa MD [address] [place] [phone] Consulting Physician Hematology and Oncology 01/03/21 documented as of this encounter
--- OUTSIDE RECORDS SUMMARY | 2024-09-16 14:06 | XMS_ITS | Encounter Summary ---
Author Organization [facility] Address [facility] [place] [address] Care Team Providers Care Ribbon Lapper Tender Name Role Phone Joseph Ann MD Unavailable [phone] Chai Junior MD Unavailable Kulwant Felix MD Primary Care Provider [phone] Annie Chavez MD Primary Care Provider [phone] Ramandeep Ann Primary Care Provider [phone] Dina Cloud PA-C Primary Care Provider [phone] Encounter Details Date Type Department Care Team (Late st Contact Info) Description 06/10/2017 Abstract [facility] AT [address] [address] Baudilio [place] Social History Tobacco Use [...] PG pt send letter continue current meds INIAN FOLK ARTS INSTRUCTOR documented in this encounter Plan of [...] MRSA 03/09/2017 03/09/2017 10/05/2018 12:4 0 PM UKRAINIAN FOLK ARTS INSTRUCTOR documented as of this encounter Care Teams Ribbon Lapper Tender Relationship Specialty Start Date End Date Kulwant Felix MD [address] [address] PCP - General 03/17/17 08/02/17 Annie Chavez MD [address] [address] PCP - General FAMILY PRACTICE 08/03/17 05/03/18 Ramandeep Ann FNP [address] [address] PCP - General NURSE PRACTITIONER 05/04/18 10/31/18 Dina Cloud PA-C [address] [place] [address] PCP - General NURSE PRACTITIONER 05/19/19 Joseph Ann MD Three [facility]. [address] [place] [address] [place] Tool And Die Designer CARDIOVASCULAR DISEASE 01/02/16 Chai Junior MD Three [facility]. [address] [place], [place] [phone] EP Tool And Die Designer CARDIOVASCULAR DISEASE 09/03/16 documented as of this encounter
--- OUTSIDE RECORDS SUMMARY | 2024-09-16 14:06 | XMS_ITS | Encounter Summary ---
Author Organization [facility] Address [address] [place] [address] Phone Care Team Providers Care Logistic Specialist Name Role Phone Dina Cloud PAC Primary Care Provider [phone] Lefty Sousa MD Unavailable [phone] Encounter Details Date Type Department Care Team (Late st Contact Info) Description 09/17/2020 Telephone [facility] [address] [place] [address] Lefty Sousa MD 1052 [facility] [place] [address] [address] Social History Tobacco Use Types Packs/Day Years Used Date Smoking Tobacco: Every Day Cigarettes 1 50.1 Started: 08/03/1974 Smokeless Tobacco: Never Alcohol Use Standard Drinks/Week Comments No 0 (1 standard drink = 0.6 oz pur e alcohol) PHQ-2 Answer Date Recorded Total Score - Questions 1-9 0 05/03 Sex and Gender Information Value Date Recorded Sex Assigned at Not on file Legal Sex Male 11:32 AM SHEET ROCK SANDER Gender Identity Not on file Sexual Orientation Not on file documented as of this encounter Miscellaneous Notes * Telephone Encounter - Ketty Lopez - 09/17/2020 9:20 AM CST Called pt to reschedule due to weather-pt states he will have his language assistant call back to reschedule T ROCK SANDER documented in this encounter Plan of Treatment Upcoming Encounters Date Type Department Care Team (Late st Contact Info) Description 12/09/2024 8:30 AM CDT Office Visit [facility] [address] [place] [phone] Lefty Sousa MD 1052 [facility] 2 [place] [address] documented as of this encounter Visit Diagnoses Not on filedocumented in this encounter Additional Health Concerns Assessment Noted Time PHQ-9 Depression Total Score: 0 05/17/20 8:28 AM CDT documented as of this encounter Care Teams Logistic Specialist Relationship Specialty Start Date End Date Dina Cloud PAC [address] [place] [address] PCP - General Physician Knowledge Management Advisor 05/25/20 Lefty Sousa MD [address] [place] [phone] Consulting Physician Hematology and Oncology 01/03/21 documented as of this encounter
--- OUTSIDE RECORDS SUMMARY | 2024-09-16 14:06 | XMS_ITS | Encounter Summary ---
Author Organization [facility] Address [facility] [place] [address] Care Team Providers Care Barrel Cleaner Name Role Phone Joseph Ann MD Unavailable [phone] Chai Junior MD Unavailable Dina Cloud PA-C Primary Care Provider [phone] Encounter Details Date Type Department Care Team (Late st Contact Info) Description 08/27/2020 [employer] Message Enc [facility], [address] [address] [employer], [facility] Provider Missed Carelink Transmission Social History Tobacco [...] on filedocumented in this encounter Care Teams Barrel Cleaner Relationship Specialty Start Date End Date Dina Cloud PA-C [address] [place] [address] PCP - General NURSE PRACTITIONER 05/19/19 Joseph Ann MD [address] [place] [address] [place] Fur Cutter CARDIOVASCULAR DISEASE 01/02/16 Chai Junior MD [address] [place] [address] EP Fur Cutter CARDIOVASCULAR DISEASE 09/03/16 documented as of this encounter
--- OUTSIDE RECORDS SUMMARY | 2024-09-16 14:06 | XMS_ITS | Encounter Summary ---
Author Organization [facility] Address [address] [place] [address] Phone Care Team Providers Care Cigarette Book Maker Name Role Phone Dina Cloud PAC Primary Care Provider [phone] Lefty Sousa MD Unavailable [phone] Encounter Details Date Type Department Care Team (Late st Contact Info) Description 08/23/2020 Telephone [facility] [address] [place] [address] Lefty Sousa MD [facility] [address] [address] Social History Tobacco Use Types [...] on file Legal Sex Male 11:32 AM COMPUTER AIDED DESIGN DRAFTER Gender Identity Not on file Sexual Orientation Not on file documented as of this encounter Miscellaneous Notes * Telephone Encounter - Ines Pham - 08/23/2020 2:50 PM CST PT HAD N SHOW FOR 08/23/20 APPT, PT STATED HIS RIDE DID NOT SHOW UP TODAY, UNABLE TO WRITE WILL WAITFOR AID TO RETURN TOMORROW AND CALL AND RESCHEDULE. UTER AIDED DESIGN DRAFTER documented in this encounter Plan of Treatment Upcoming Encounters Date Type Department Care Team (Late st Contact Info) Description 12/09/2024 8:30 AM CDT Office Visit [facility] [address] [place] [phone] Lefty Sousa MD 1052 [facility] [place] [address] [address] documented as of this encounter Visit Diagnoses Not on filedocumented in this encounter Additional Health Concerns Assessment Noted Time PHQ-9 Depression Total Score: 0 05/17/20 8:28 AM CDT documented as of this encounter Care Teams Cigarette Book Maker Relationship Specialty Start Date End Date Dina Cloud PAC [facility] [place] [address] PCP - General Physician Embossing Tool Setter 05/25/20 Lefty Sousa MD [address] [place] [phone] Consulting Physician Hematology and Oncology 01/03/21 documented as of this encounter
--- OUTSIDE RECORDS SUMMARY | 2024-09-16 14:06 | XMS_ITS | Encounter Summary ---
Author Organization [facility] Address [facility]6 [place] [address] Care Team Providers Care 911 Emergency Dispatcher Name Role Phone Joseph Ann MD Unavailable [phone] Chai Junior MD Unavailable Annie Chavez MD Primary Care Provider + [phone] Ramandeep AnnP Primary Care Provider [phone] Dina Cloud PA-C Primary Care Provider [phone] Encounter Details Date Type Department Care Team (Late st Contact Info) Description 10/23/2017 Abstract [facility] at [address] [address] Baudilio [place] Social History Tobacco Use [...] MRSA 03/09/2017 03/09/2017 10/05/2018 12:4 0 PM RETAIL ASSET PROTECTION SPECIALIST documented as of this encounter Care Teams 911 Emergency Dispatcher Relationship Specialty Start Date End Date Annie Chavez MD [facility]. [facility] [address] [place] [address] PCP - General FAMILY PRACTICE 08/03/17 05/03/18 Ramandeep Ann FNP [facility]. [facility] [address] [place] [address] PCP - General NURSE PRACTITIONER 05/04/18 10/31/18 Dina Cloud PA-C [address] [place] [address] PCP - General NURSE PRACTITIONER 05/19/19 Joseph Ann MD [facility]. [facility] [address] [place] [address] [place] Assistant Media Buyer CARDIOVASCULAR DISEASE 01/02/16 Chai Junior MD [address] [place] [address] EP Assistant Media Buyer CARDIOVASCULAR DISEASE 09/03/16 documented as of this encounter
--- OUTSIDE RECORDS SUMMARY | 2024-09-16 14:06 | XMS_ITS | Encounter Summary ---
Author Organization [facility] Address [address] [facility] [place] [address] Care Team Providers Care Baker Bread Name Role Phone Dina Cloud PA-C Primary Care Provider Reason for Visit * Reason Onset Date Comments Question 02/25/2022 Encounter Details Date Type Department Care Team (Late st Contact Info) Description 02/25/2022 Telephone [facility] [address] [place] [address] Dina Cloud PA-C [address] [place] [address] Question Social History Tobacco Use [...] arification on request. Patient Call Back number: [phone] documented in this encounter Plan of Treatment Upcoming Encounters Date Type Department Care Team (Late st Contact Info) Description 09/20/2024 9:30 AM MEDICAL ORDERLY [facility] [address] [place] [phone] Meredith Weiss MD [address] [place] [address] 1L [place] [phone] 10/18/2024 1:00 AM CDT Clinical Support [facility] - Cardiology [address] [place] [phone] 10/25/2024 9:00 AM CDT Office Visit [facility] - Cardiology [address] [place] [phone] Daily Bravo MD [address] [place] [address] 11/08/2024 3:40 PM CDT Office Visit [facility] - Endocrinology [address] [place] [phone] Garry Tracey MD [address] [place] [address] 2L [place] [phone] 12/15/2024 2:00 PM CDT Office Visit [facility] - Pulmonology [address] [place] [phone] Becca Ford MD [address] [place] [address] 2L DIV OF [place] [address] 01/17/2025 1:10 AM CDT Clinical Support [facility] [address], [address] [phone] 02/24/2025 9:10 AM CDT Office Visit [facility] - Dermatology [address] [place] [address], [place] [address] Robb Howell MD [address] [facility] 3 [place] [address] 03/02/2025 9:00 AM CDT [facility] [address] [place] [address], [place] [address] Nataliia Cooper MD [address] [facility] 3 [place] [address] 04/18/2025 1:10 AM CDT Clinical [facility] [address] [facility], [address] [phone] 07/18/2025 1:10 AM MEDICAL ORDERLY Clinical Support [facility] - Cardiology [address] [facility], [address] [phone] documented as of this encounter Visit Diagnoses Not on filedocumented in this encounter Care Teams Baker Bread Relationship Specialty Start Date End Date Dina Cloud PA-C [address] [place] [phone] PCP - General Physician Silver Lap Machine Tender 07/10/20 documented as of this encounter
--- OUTSIDE RECORDS SUMMARY | 2024-09-16 14:06 | XMS_ITS | Encounter Summary ---
Author Organization [facility] Address [address] [place] [address] Phone Care Team Providers Care Corrugated Sheet Material Sheeter Name Role Phone Provider, Unknown Primary Care Provider Unavaila Dina Yepez Primary Care Provider [phone] Lefty Sousa MD Unavailable [phone] Encounter Details Date Type Department Care Team (Late st Contact Info) Description 02/09/2020 Telephone [facility] [address] [place] [address] Lefty Sousa MD [address] [address] Social History Tobacco Use Types [...] on file Legal Sex Male 11:32 AM SUPERVISOR ADVICE Gender Identity Not on file Sexual Orientation Not on file documented as of this encounter Miscellaneous Notes * Telephone Encounter - Kavita Ayon - 02/09/2020 1:17 PM CDT Patient no showed for appt today. After talking to the pt he stated he recently went through a stroke and is getting an aid to help him with his appts. Once she is with him the pt is going to call back and reschedule. documented in this encounter Plan of Treatment Upcoming Encounters Date Type Department Care Team (Late st Contact Info) Description 12/09/2024 8:30 AM CDT Office Visit [facility] [address] [place] [address] Lefty Sousa MD [address] [place], [place] [address] documented as of this encounter Visit Diagnoses Not on filedocumented in this encounter Additional Health Concerns Assessment Noted Time PHQ-9 Depression Total Score: 0 11/03/19 8:14 AM CDT documented as of this encounter Care Teams Corrugated Sheet Material Sheeter Relationship Specialty Start Date End Date Provider, Unknown UNKNOWN PCP - General Primary Care 07/14/18 05/24/20 Dina Cloud PAC [address] [place] [address] PCP - General Physician Clerk Carrier 05/25/20 Lefty Sousa MD [address] [place] [phone] Consulting Physician Hematology and Oncology 01/03/21 documented as of this encounter
--- OUTSIDE RECORDS SUMMARY | 2024-09-16 14:06 | XMS_ITS | Clinical Summary ---
Author Organization [facility] Address [address] [place] [address] Care Team Providers Care Lining Cementer Name Role Phone Unavailable Primary Care Provider [...] each day 6 Active ergocalciferol 1.25 MG (98193 UT) capsule ergocalciferol (vitamin D2) 1,250 mcg [...] 1 (one) time each day 3 Active Albuterol-Red Devil sonide 90-80 MCG/ACT aerosol Inhale 2 puffs [...] CDT 03/07/2024 11:00 PM CDT us Kevin Shah MD LAB BLOOD ORDERABLES Final R esult [facility] [address] [place] [address] from Last 3 Months or Most Recently Relevant to Health Maintenance Insurance [facility]
--- OUTSIDE RECORDS SUMMARY | 2024-09-16 14:06 | XMS_ITS | Clinical Summary ---
Author Organization [facility] Address [address] [place] [address] Care Team Providers Care Door Captain Name Role Phone Joseph Ann MD Unavailable [phone] Chai Junior MD Unavailable Dina Cloud PA-C Primary Care Provider [phone] Allergies Active Allergy Reactions Criticality Noted Date [...] daily. 0 Active vitamin D2, ergocalciferol , 55303 UNITS capsule TK ONE C PO Q [...] cream 1 Active Lancets (ONETOUCH DELICA PLUS [id number]) Misc Inject 1 each into the skin. [...] artery stenosis 12/15/2017 SSS (sick sinus syndrome) ([facility]) 11/02 Abnormal EKG 06/04/2016 Syncope and collapse 06/04/2016 Type 2 diabetes mellitus wit h complication, with long-term current use of insulin ([facility]) 05/21/2016 CVA (cerebral vascular accident) ([facility]) 05/21/2016 Sacroiliitis 09/04/2015 MRSA (methicillin resistant staph aureus) cultur e positive 08/15/2015 Nontraumatic compression fra cture of lumbosacral vertebra ([facility]) 07/13/2015 Lumbar compression fracture ([facility]) Impingement syndrome of right shoulder 5 Shoulder pain, right 05/08/2015 Hyperlipidemia Essential hypertension CAD (coronary artery disease) Family History Medical History Relation Comments Diabetes Father Hypertension Mother Stroke Mother [place] Paternal Grandfather Stroke Paternal Grandmother Relation Status [...] this topic Medical Devices Implanted Type Area Pit Crew Support Worker Device Identifier Shelf Expiration Date Model / Serial / Lot Atrial Lead-09/23/2016 Implanted:09/23 by Chai Junior MD (Quantity not on file) Lead Implant [employer] 5076 CAPSUREFIX NOVUS / [id number] / Ventricular Lead-09/23/2016 Implanted:09/23 by Chai Junior MD (Quantity not on file) Lead Implant [employer] 5076 CAPSUREFIX NOVUS / [id number] / Medtronic Pacemaker-2016 Implanted:09/23 by Chai Junior MD (Quantity not on file) Pacemaker [employer] [id number] [address] STINSON / [id number] / Procedures Procedure Name Priority Date/Time Associated [...] the left lateral decubitus position, the Olympus [id number] colonoscope was introduced into the rectum and [...] Most Recently Relevant to Health Maintenance Insurance [facility] Advance Directives Documents on File Type Date Recorded Patient Dry Can Tender Expl anation Advance Directives and Living Will 06/22/2020 9:37 AM [facility] 2019 * Full Code (Latest Code Status on File) Date Activated Date Inactivated Comments 09/28/2017 9:22 AM 09/28/2017 3:24 PM Care Teams Door Captain Relationship Specialty Start Date End Date Dina Cloud PA-C [address] [place] [address] PCP - General NURSE PRACTITIONER 05/19/19 Joseph Ann MD [address] [address] [place] Juvenile Counselor CARDIOVASCULAR DISEASE 01/02/16 Chai Junior MD [facility] [address] [place] [address] EP Juvenile Counselor CARDIOVASCULAR DISEASE 09/03/16
--- OUTSIDE RECORDS SUMMARY | 2024-09-16 14:06 | XMS_ITS | Encounter Summary ---
Author Organization [facility] Address [facility] [place] [address] Care Team Providers Care Mailing Machine Assistant Name Role Phone Joseph Ann MD Unavailable [phone] Chai Junior MD Unavailable Dina Cloud PA-C Primary Care Provider [phone] Encounter Details Date Type Department Care Team (Late st Contact Info) Description 10/01/2020 [employer] Message Enc [facility] [address] [facility] Provider Missed or Cancelled Appointment Social History [...] on filedocumented in this encounter Care Teams Mailing Machine Assistant Relationship Specialty Start Date End Date Dina Cloud PA-C [address] [place] [address] PCP - General NURSE PRACTITIONER 05/19/19 Joseph Ann MD [address] [place] [address] [place] Spin Instructor CARDIOVASCULAR DISEASE 01/02/16 Chai Junior MD [address] [place] [address] EP Spin Instructor CARDIOVASCULAR DISEASE 09/03/16 documented as of this encounter
--- OUTSIDE RECORDS SUMMARY | 2024-09-16 14:07 | XMS_ITS | Encounter Summary ---
Author Organization [facility] Address [address] [facility] [place] [address] Care Team Providers Care Activated Sludge Attendant Name Role Phone Dina Cloud PA-C Primary Care Provider Encounter Details Date Type Department Care Team (Late Contact Info) Description 01/15/2023 Telephone [facility] - Centralized Scheduling [address] [place] [phone] Nathalie Hassan M, OD [address] [facility] [place] [phone] Social History Tobacco Use Types Packs/Day Years [...] (Late Contact Info) Description 09/20/2024 9:30 AM TYPEWRITER OPERATOR AUTOMATIC Office Visit [facility] - Neurology [address] [place] [address], [place] [phone] Meredith Weiss MD [address] [place] [address] [address]L [place] [phone] 10/18/2024 1:00 AM CDT Clinical Support [facility] - Cardiology [facility], [address] [phone] 10/25/2024 9:00 AM CDT Office Visit [facility] - Cardiology [facility], [address] [phone] Daily Bravo MD [address] [place] [address] 11/08/2024 3:40 PM CDT [facility] Endocr[facility]ology [address] [place] [address], [place] [phone] Garry Tracey MD [address] [place] [address] [address]L [place] [phone] 12/15/2024 2:00 PM CDT Office Visit [facility] - Pulmonology [address] [place] [address], [place] [phone] Becca Ford MD [address] [place] [address] 2L DIV [place] [address] 01/17/2025 1:10 AM CDT Clinical [facility] - Cardiology [address] [facility], [address] [phone] 02/24/2025 9:10 AM CDT [facility] - Dermatology [address] [place] [address], [place] [phone] Robb [place] MD [address] [place] [address] 3 [place] [address] 03/02/2025 9:00 AM CDT Office Visit [facility] - Nephrology [address] [place] [address], [place] [address] Nataliia Cooper MD [address] [place] [address] 3 [place] [address] 04/18/2025 1:10 AM CDT Clinical Support [facility] - Cardiology [address] [place] [phone] 07/18/2025 1:10 AM TYPEWRITER OPERATOR AUTOMATIC Clinical Support [facility] - Cardiology [address] [place] [phone] documented as of this encounter Visit Diagnoses Not on filedocumented in this encounter Care Teams Activated Sludge Attendant Relationship Specialty Start Date End Date Dina Cloud PA-C [address] [place] [phone] PCP - General Physician Tape Making Machine Operator 07/10/20 documented as of this encounter
--- OUTSIDE RECORDS SUMMARY | 2024-09-16 14:07 | XMS_ITS | Encounter Summary ---
Author Organization [facility] Address [address] [facility] [place] [address] Care Team Providers Care Securities Attorney Name Role Phone Dina Cloud PA-C Primary Care Provider Encounter Details Date Type Department Care Team (Late st Contact Info) Description 01/28/2023 Telephone [facility] - Centralized Scheduling [address] [place] [phone] Garry Tracey MD [address] [phone] Social History Tobacco Use Types Packs/Day Years [...] glucose levels for 13 days ?? Verified: [phone] Lexi Caregiver documented in this encounter Plan of Treatment Upcoming Encounters Date Type Department Care Team (Late st Contact Info) Description 09/20/2024 9:30 AM WOOLEN TESTER Office Visit [facility] - Neurology [address] [place] [phone] Meredith Weiss MD [address] [place] [address] 1L [place] [phone] 10/18/2024 1:00 AM CDT Clinical Support [facility] - Cardiology [address] [place] [phone] 10/25/2024 9:00 AM CDT Office Visit [facility] - Cardiology [address] [place] [phone] Daily Bravo MD [address] [place] [address] 11/08/2024 3:40 PM CDT Office Visit [facility] - Endocrinology [address] [place] [address], [place] [phone] Garry Tracey MD [address] [place] [address] 2L [place] [phone] 12/15/2024 2:00 PM CDT Office Visit [facility] - Pulmonology [address] [place] [address], [place] [phone] Becca Ford MD [address] [facility] 2L DIV [place] [address] 01/17/2025 1:10 AM CDT [facility]iology [address] [facility], [address] [phone] 02/24/2025 9:10 AM CDT [facility] Dermat[facility] [address] [place] [address], [place] [address] Robb [place] MD [address] [facility] 3L [place] [address] 03/02/2025 9:00 AM CDT Office Visit [facility] - Nephrology [address] [place] [phone] Nataliia Cooper MD [address] [facility] 3L [place] [address] 04/18/2025 1:10 AM CDT Clinical Support [facility] - Cardiology [address] [facility], [address] [phone] 07/18/2025 1:10 AM WOOLEN TESTER Clinical Support [facility] - Cardiology [address] [facility], [address] [phone] documented as of this encounter Visit Diagnoses Not on filedocumented in this encounter Care Teams Securities Attorney Relationship Specialty Start Date End Date Dina Cloud PA-C [address] [place] [phone] PCP - General Physician Drier Belt Conveyor 07/10/20 documented as of this encounter
--- OUTSIDE RECORDS SUMMARY | 2024-09-16 14:07 | XMS_ITS | Clinical Summary ---
Author Organization [facility] Address [address] [place] [address] Phone Care Team Providers Care Cafe Cook Name Role Phone AiDina rosas A PAC Primary Care Provider + [phone] Lefty Sousa MD Unavailable [phone] Allergies Active Allergy Reactions Criticality Noted Date Comments Penicillins Rash 07/17/2016 Medications atorvastatin (LIPITOR) 80 MG Tablet Take 1 Tab by mouth daily. 07/09/20 16 Active Topiramate 50 MG Tablet Take 2 Tablets by mouth 2 times daily. 07/07/20 16 Active aspirin EC 81 MG Tablet Delayed Response Take 81 mg by mouth daily. Active fenofibrate (TRICOR) 145 MG Tablet daily. 3 12/24/19 17 Active ergocalciferol (VITAMIN D) 46360 UNIT Capsule TK 1 C PO Q WK 6 07/29/20 18 Active metoprolol Succinate (TOPROL-XL) 25 MG TABLET SR 24 HR Take 25 mg by mouth. 11/20/19 19 Active amitriptyline (ELAVIL) 100 MG Tablet TK 1 T PO QD 2 12/17/19 19 Active gabapentin (NEURONTIN) 300 MG Capsule TK 3 CAPSULES PO TID 5 12/10/19 19 Active levETIRAcetam (KEPPRA) 250 MG Tablet TK 1 T PO TID 6 12/10/19 19 Active meloxicam (MOBIC) 7.5 MG Tablet Take 7.5 mg by mouth. 12/10/19 19 Active clopidogrel (PLAVIX) 75 MG Tablet Take 75 mg by mouth daily. 0 02/24/20 19 Active nateglinide (STARLIX) 120 MG Tablet Take 120 mg by mouth 3 times daily. 2 03/11/20 19 Active FEROSUL 325 (65 Fe) MG TabletIndicatio ns:Anemia of unknown etiology TAKE 1 TABLET BY MOUTH THREE TIMES DAILY 90 Tab 3 08/08/19 20 Active pantoprazole (PROTONIX) 40 MG Tablet Delayed Response 04/30/20 20 Active tamsulosin (FLOMAX) 0.4 MG Capsule TAKE 1 CAPSULE BY MOUTH AT BEDTIME 08/19/19 21 Active B-D ULTRAFINE III SHORT PEN 31G X 8 MM [facility] USE TO INJECT INSULIN ONCE DAILY 08/07/19 21 Active ammonium lactate (LAC-HYDRIN) 12 % Lotion APPLY TOPICALLY TO THE AFFECTED AREA DAILY 09/21/19 21 Active lisinopril (PRINIVIL, ZESTRIL) 20 MG Tablet Take 20 mg by mouth daily. 12/15/19 21 Active ketoconazole (NIZORAL) 2 % Cream APPLY TOPICALLY TO THE AFFECTED AREA EVERY DAY 02/19/20 21 Active terbinafine (LamISIL) 250 MG Tablet TAKE 1 TABLET BY MOUTH EVERY DAY FOR 14 DAYS 02/19/20 21 Active sildenafil citrate (VIAGRA) 100 MG Tablet Take 100 mg by mouth. 02/12/20 21 Active Jardiance 10 MG Tablet Take 10 mg by mouth daily. 02/15/20 22 Active Repatha SureClick 140 MG/ML Solution Auto-injector 01/28/20 22 Active lidocaine (XYLOCAINE) 5 % Ointment 11/09/19 22 Active oxybutynin (DITROPAN XL) 15 MG TABLET SR 24 HR Take 15 mg by mouth daily. 02/15/20 22 Active HYDROcodone-delma taminophen (NORCO) 10-325 MG Tablet Take 1 Tablet by mouth 3 times daily. 08/06/19 23 Active famotidine (PEPCID) 20 MG Tablet Take 20 mg by mouth 2 times daily. 11/07/19 23 Active Continuous Blood Gluc Sensor (Dexcom G7 Sensor) [facility] 03/25/20 23 Active buPROPion, Smoking Deter, (ZYBAN) 150 MG TABLET SR 12 HR Take 150 mg by mouth 2 times daily. Active albuterol 108 (90 Base) MCG/ACT Aerosol Solution INHALE 2 PUFFS BY MOUTH EVERY 4 HOURS NEEDED Active Trulicity 3 MG/0.5ML Solution Pen-injector ADMINISTER 3 MG UNDER THE SKIN EVERY WEEK Active hydroxyurea (HYDREA) 500 MG CapsuleIndicati ons:Myeloprolif erative disease (HCC) TAKE 1 CAPSULE BY MOUTH DAILY 30 Capsule 5 04/18/20 24 Active gabapentin (NEURONTIN) 600 MG Tablet Patient to take one and a half tablets (900 mg) in the morning and at noon and two tablets (1200 mg) in the evening 05/19/20 24 Active Lantus SoloStar 100 UNIT/ML Solution Pen-injector ADMINISTER 40 UNITS UNDER THE SKIN AT BEDTIME 03/17/20 24 Active Insulin Lispro, 1 Unit Dial, 100 UNIT/ML Solution Pen-injector INJECT 12 TO 18 UNITS SUBCUTANEOUS THREE TIMES DAILY BEFORE MEALS. MAX OF 50 UNITS DAILY 05/18/20 24 Active folic acid (FOLVITE) 1 MG TabletIndicatio ns:Anemia, unspecified type TAKE 1 TABLET BY MOUTH DAILY 90 Tablet 1 07/11/20 24 Active HYDROcodone-delma taminophen (NORCO) 5-325 MG Tablet 04/03/20 025 Discontin ued(Med List Clean Up) Active Problems Problem Noted Date Diagnosed Date Coronary atherosclerosis 11/06/2021 Vitamin D deficiency 07/04/2021 Stage 3a chronic kidney disease 07/04/2021 Diabetic neuropathy 07/04/2021 Congestive heart failure 07/04/2021 Cardiac pacemaker in situ 07/04/2021 Iron deficiency anemia, unspecified 12/21/2020 Anemia 03/24/2019 Myeloproliferative disease 08/26/2018 PAD (peripheral artery disease) 06/02/2018 Obstructive sleep apnea 04/12/2018 Inadequate sleep hygiene 04/12/2018 History of pacemaker 04/12/2018 History of cerebrovascular accident 04/12/2018 Bilateral carotid artery stenosis 12/15/2017 Lung nodule 09/17/2017 Occlusion of right carotid artery 07/23/2017 SSS (sick sinus syndrome) 11/26/2016 Anemia of unknown etiology 10/09/2016 Thrombocytosis 09/04/2016 Leukocytosis (leucocytosis) 07/17/2016 Syncope and collapse 06/04/2016 Cerebrovascular accident (CVA) 05/21/2016 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 02/14/2016 Spinal stenosis 11/05/2015 Lumbago 11/05/2015 Herniated lumbar intervertebral disc 11/05/2015 Chronic pain 11/05/2015 Sacroiliitis 09/04/2015 MRSA (methicillin resistant staph aureus) cultur e positive 08/15/2015 Lumbar compression fracture 06/25/2015 Impingement syndrome of right shoulder 5 Hyperlipidemia 04/27/2015 Essential hypertension 04/27/2015 Type 2 diabetes mellitus 03/15/2015 Encounters Date Type Department Care Team Description 09/09/2024 8:50 AM ICHTHYOLOGIST Lab [facility] [address] [phone] Lab, [facility] [place] Myeloproliferative disease (HCC); Iron deficiency anemia, unspecified iron deficiency anemia type; Anemia, unspecified type 09/09/2024 8:45 AM ICHTHYOLOGIST Office Visit [facility] [address] [phone] Lynnette Anderson, PIE BAKER, WAREHOUSE DISTRIBUTION ASSOCIATE Myeloproliferative disease (HCC) (Primary Dx); Iron deficiency anemia, unspecified iron deficiency anemia type; Anemia, unspecified type 09/09/2024 Travel 07/11/2024 Refill [facility] [address] [phone] Lefty Sousa MD Medication Refill from Last 3 Months Immunizations Immunization Administration Dates Next Due Covid-19, Mrna, Lnp-s, Pf, Lam-sucrose, 30 Mcg/0.3 Ml ([place]) 05/13/2023 Influenza Vaccine, Quadrivalent, PF 05/03,06/17/2022,05/17/2021,04/29,05/20/2017,09/23/2016,08/21/2015 Influenza Vaccine,unspecifie d Formulation 06/02/2022 Influenza, Injectable, Mdck, Preservative Free 04/25/2024 Influenza, Injectable, Quadrivalent 06/14/2019 Influenza, Seasonal, Injecta ble, Undefined 05/17/2019,04/29/2018 Pneumococcal Vaccine Adult - 23 Valent 7,08/21/2015,01/23/2015 Pneumococcal conjugate PCV20 , polysaccharide [id number] conjugate, adjuvant, PF 06/16/2023 RSV, Recombinant, Protein Horton bunit Rsvpref, Adjuvant Recon (Arexvy) 07/17/2023 TDAP Vaccine 02/09/2017 Zoster Vaccine Recombinant 01/02/2022,11/03/2021 Family History Medical History Relation Name Comments Diabetes Father Stroke Mother Relation Name Status Comments Father Mother Social History Tobacco Use Types Packs/Day Years Used Date Smoking Tobacco: Every Day Cigarettes 1 50.1 Started: 08/03/1974 Smokeless Tobacco: Never Tobacco Cessation:Ready to Q uit: Yes; Counseling Given: Yes Alcohol Use Standard Drinks/Week Comments No 0 (1 standard drink = 0.6 oz pur e alcohol) PHQ-2 Answer Date Recorded Total Score - Questions 1-9 0 02/01 Sex and Gender Information Value Date Recorded Sex Assigned at Not on file Legal Sex Male 11:32 AM ICHTHYOLOGIST Gender Identity Not on file Sexual Orientation Not on file Last Filed Vital Signs Vital Sign Reading Time Taken Comments Blood Pressure 136/84 09/09/2024 8:47 AM ICHTHYOLOGIST Pulse 59 09/09/2024 8:47 AM ICHTHYOLOGIST Temperature 36.3 C (97.3 F) 09/09/2024 8:47 AM ICHTHYOLOGIST Respiratory Rate 18 09/09/2024 8:47 AM ICHTHYOLOGIST Oxygen Saturation 99% 09/09/2024 8:47 AM ICHTHYOLOGIST Inhaled Oxygen Concentration - - Weight 102.7 kg (226 lb 8 oz) 09/09/2024 8:47 AM ICHTHYOLOGIST Height 172.7 cm (5' 8 ) 09/09/2024 8:47 AM ICHTHYOLOGIST Body Mass Index 34.44 09/09/2024 8:47 AM ICHTHYOLOGIST Plan of Treatment Upcoming Encounters Date Type Department Care Team (Late st Contact Info) Description 12/09/2024 8:30 AM CDT Office Visit [facility] [address] [phone] Lefty Sousa MD [address] [place] [address] Health Maintenance Due Date Last Done Comments Diabetes: Eye Exam 1961 Diabetes: Foot Exam 1961 Hepatitis C Virus (HCV) Screening 1961 Cologuard 2011 Immunochemical Fecal Occult Blood 2011 PSA Discussion 01/06/2016 Lung Cancer Screening 06/18/2024 06/18/2023 , 06/18/2023, 01/04/2021, Additional history exists SARS-COV-2 Immunization (7 - Pfizer risk season) 2024 04/25/2024, 05/27/2023, 05/13/2023, Additional history exists Diabetes: Hemoglobin A1c 03/01/2025 025, 04/21/2024, 03/08/2024, Additional history exists Diabetes: Nephropathy Screening 09/09/2025 09/09/2024, 06/10/2024, 12/10/2023, Additional history exists Td Immunization Every 10 Years (Adults With 1 Tdap) 02/09/2027 02/09/2017 Colonoscopy 11/28/2031 11/27/2021, 10/05/2018 Colorectal Cancer Screening 11/28/2031 11/27/2021, 10/05/2018 DTaP/Tdap/Td Immunization Discontinued 02/09/2017 Zoster Immunization Completed 01/02/2022, Pneumococcal Immunization (50+ years) Completed 06/16/2023, 02/09/2017, 08/21/2015, Additional history exists Pneumococcal Immunization Combined Discontinued 06/16/2023, 02/09/2017, 08/21/2015, Additional history exists Respiratory Syncytial Virus (RSV) Immunization (Adult) Completed 07/17/2023 Influenza Immunization Completed , 05/14/2023, 06/17/2022, Additional history exists Hepatitis B Immunization Aged Out No longer eligible based on patient's age to complete this topic Meningococcal Immunization (ACWY) Aged Out No longer eligible based on patient's age to complete this topic Rotavirus Immunization Aged Out No lo nger eligible based on patient's age to complete this topic Procedures Procedure Name Priority Date/Time Associated Diagnosis Comments COMPLETE BLOOD COUNT (CBC) WITH DIFF Routine 09/09/2024 9:10 AM ICHTHYOLOGIST Myeloproliferative disease (HCC) Iron deficiency anemia, unspecified iron deficiency anemia type Anemia, unspecified type CMP (COMPREHENSIVE METABOLIC PANEL) Routine 09/09/2024 9:10 AM ICHTHYOLOGIST Myeloproliferative disease (HCC) Iron deficiency anemia, unspecified iron deficiency anemia type Anemia, unspecified type LACTATE DEHYDROGENASE (LD) Routine 09/09/2024 9:10 AM ICHTHYOLOGIST Myeloproliferative disease (HCC) Iron deficiency anemia, unspecified iron deficiency anemia type Anemia, unspecified type FERRITIN Routine 09/09/2024 9:10 AM ICHTHYOLOGIST Myeloproliferative disease (HCC) Iron deficiency anemia, unspecified iron deficiency anemia type Anemia, unspecified type IRON W/ IRON BINDING CAPACITY [place] Routine 09/09/2024 9:10 AM ICHTHYOLOGIST Myeloproliferative disease (HCC) Iron deficiency anemia, unspecified iron deficiency anemia type Anemia, unspecified type CT CHEST W/O CONTRAST Routine 01/04/2021 10:14 AM CDT Lung nodule Leukocytosis, unspecified type Thrombocytosis (HCC) Myeloproliferative disease (HCC) Anemia of unknown etiology from Last 3 Months or Most Recently Relevant to Health Maintenance Results * IRON W/ IRON BINDING CAPACITY OH (09/09/2024 9:10 AM ICHTHYOLOGIST) IRON 84 50 - 212 ug/dL [facility] CUTTING MACHINE OPERATOR [facility] UIBC 266 155 - 355 ug/dL CANCER CUTTING MACHINE OPERATOR [facility] TIBC 350 261 - 478 ug/dl CANCER CUTTING MACHINE OPERATOR [facility] % Saturation 24 20 - 50 % CANCER CUTTING MACHINE OPERATOR [facility] 09/09/2024 9:10 AM ICHTHYOLOGIST Narrative [facility] CUTTING MACHINE OPERATOR [facility] - 09/09/2024 10:05 AM ICHTHYOLOGIST Release to patient->Immediate us Lynnette Anderson APRN, WAREHOUSE DISTRIBUTION ASSOCIATE LAB SEND OUTS Fin al Result CANCER CUTTING MACHINE OPERATOR [facility] [place] [address], * (ABNORMAL) LACTATE DEHYDROGENASE (LD) (09/09/2024 9:10 AM ICHTHYOLOGIST) LDH 130(L) 140 - 271 U/L [facility]CER CUTTING MACHINE OPERATOR [facility] Blood 09/09/2024 9:10 AM ICHTHYOLOGIST Narrative [facility] - 09/09/2024 10:05 AM ICHTHYOLOGIST Release to patient->Immediate Lynnette Anderson APRN, WAREHOUSE DISTRIBUTION ASSOCIATE CHEMISTRY ORDERABLE S Final Result Performing Organization Address City/[facility]/ZIP Co de Phone Number CANCER CUTTING MACHINE OPERATOR [facility] [place] [address], [place] [phone] * FERRITIN (09/09/2024 9:10 AM ICHTHYOLOGIST) Ferritin 53 24 - 336 ng/mL [facility] Blood 09/09/2024 9:10 AM ICHTHYOLOGIST Kiara [facility] CUTTING MACHINE OPERATOR [facility] - 09/09/2024 2:10 PM ICHTHYOLOGIST Release to patient->Immediate Lynnette Anderson APRN, WAREHOUSE DISTRIBUTION ASSOCIATE CHEMISTRY ORDERABLE S Final Result Performing Organization Address City/[facility] Co de Phone Number [facility] CUTTING MACHINE OPERATOR [facility] [place] [address], [place] [phone] * (ABNORMAL) CMP (COMPREHENSIVE METABOLIC PANEL) (09/09/2024 9:10 AM ICHTHYOLOGIST) Glucose 216(H) 70 - 105 mg/dL [facility] CUTTING MACHINE OPERATOR [facility] Blood Urea Nitrogen 17 7 - 25 mg/dL [facility] Creatinine 1.4(H) 0.7 - 1.3 mg/dL [facility] CUTTING MACHINE OPERATOR [facility] Sodium 144 136 - 145 mEq/L [facility] Potassium 4.6 3.5 - 5.1 mEq/L [facility] Chloride 104 98 - 107 mEq/L [facility] Bicarbonate 29 21 - 31 mEq/L [facility] CUTTING MACHINE OPERATOR [facility] Total Bilirubin 0.3 0.3 - 1.0 mg/dL [facility] Alk. Phosphatase 89 34 - 104 U/L [facility] Aspartate Aminotransferase 14 13 - 39 U/L [facility] Alanine Aminotransferase 26 7 - 52 U/L [facility] Total Protein 6.6 6.4 - 8.9 g/dL [facility] Albumin 4.2 3.5 - 5.7 g/dL [facility] Calcium 11.6(H) 8.6 - 10.3 mg/dL [facility] Anion Gap 15.6(H) 7.0 - 15.0 mEq/L [facility] Globulin 2.4 2.0 - 3.5 g/dL [facility] EGFR 56(L) >60 ml/min/1. 73m2 [facility] Comment: This eGFR is calculated using 2020 CKD-EPI Creatinine equation without race modifier based on the NKF-ASN task force recommendations Blood 09/09/2024 9:10 AM ICHTHYOLOGIST Narrative [facility] - 09/09/2024 10:05 AM ICHTHYOLOGIST Release to patient->Immediate IS THE PATIENT REQUIRED TO BE FASTING FOR 8 HOURS?->No Lynnette Anderson APRN, ROBIN CHEMISTRY ORDERABLE S Final Result CANCER CUTTING MACHINE OPERATOR [facility] [place] [address], * (ABNORMAL) COMPLETE BLOOD COUNT (CBC) WITH DIFF (09/09/2024 9:10 AM ICHTHYOLOGIST) WBC 11.1(H) 4.0 - 10.0 10*3/uL [facility] CUTTING MACHINE OPERATOR [facility] HGB 14.3 13.7 - 17.5 g/dL [facility] HCT 43.7 40.1 - 51.0 % [facility] PLT 287 163 - 369 10*3/uL [facility] MPV 9.9 9.4 - 12.4 fL [facility] RBC 4.02(L) 4.63 - 6.08 10*6/uL CANCER CUTTING MACHINE OPERATOR [facility] MCV 109(H) 79 - 95 fL CANCER CUTTING MACHINE OPERATOR [facility] MCH 35.6(H) 25.6 - 32.2 pg CANCER CUTTING MACHINE OPERATOR [facility] MCHC 32.7 32.2 - 36.5 g/dL CANCER CUTTING MACHINE OPERATOR [facility] RDW 14.6(H) 11.6 - 14.4 % CANCER CUTTING MACHINE OPERATOR [facility] Absolute Neutrophil Count 6,083 cells/uL [facility] Absolute Seg Count 6,083 1,440 - 6,600 cells/uL CANCER CUTTING MACHINE OPERATOR [facility] Absolute Lymph Count 3,650 760 - 4,000 cells/uL CAN[facility] CUTTING MACHINE OPERATOR [facility] Absolute Bibb Count 774 160 - 1,200 cells/uL [facility] CUTTING MACHINE OPERATOR [facility] Absolute Eos Count 553(H) 0 - 300 cells/uL [facility]ER CUTTING MACHINE OPERATOR [facility] Segmented Neutrophils 55 36 - 66 % CANCER CUTTING MACHINE OPERATOR [facility] Lymphocytes 33 19 - 40 % [facility] Monocytes 7 4 - 12 % [facility] Eosinophils 5(H) 0 - 3 % [facility] WBC Estimate High CANCER CUTTING MACHINE OPERATOR [facility] Platelet Estimate Normal CANCER CUTTING MACHINE OPERATOR [facility] RBC Morphology Abnormal CANCE R CUTTING MACHINE OPERATOR [facility] Macrocytosis 2+ CANCER CUTTING MACHINE OPERATOR [facility] Anisocytosis 1+ CANCER CUTTING MACHINE OPERATOR [facility] Blood 09/09/2024 9:10 AM ICHTHYOLOGIST Narrative CANCER CUTTING MACHINE OPERATOR [facility] - 09/09/2024 11:11 AM ICHTHYOLOGIST Release to patient->Immediate us Lynnette Anderson PIE BAKER, WAREHOUSE DISTRIBUTION ASSOCIATE HEMATOLOGY ORDERABL ES Final Result CANCER CUTTING MACHINE OPERATOR [facility] [place] [address], [place] [phone] * CT CHEST W/O CONTRAST (01/04/2021 10:14 AM CDT) Anatomical Region Laterality Modality Chest N/A Computed Tomogra phy Narrative 01/04/2021 11:09 AM CDT EXAMINATION: CT CHEST W/O CONTRAST 01/04/2021 INDICATIONS: Solitary pulmonary nodule myeloproliferative disorder. Follow-up pulmonary nodules COMPARISON: Outside CT chest 03/24/2020 TECHNIQUE: Noncontrast helical imaging was performed through the chest. A dose lowering technique was used for this procedure, which may include, but is not limited to, dose reduction technique(s), automated exposure control techniques, use of iterative reconstruction techniques, and ALARA (as low as reasonably achievable) or ALARA/IMAGE Gently techniques. FINDINGS: Cardiovascular: Atherosclerotic disease in the aorta without aneurysmal dilatation. Significant coronary artery calcification is seen. Heart size is within normal limits. Pleura: No significant pleural effusion is seen. Small pericardial thickening or fluid is unchanged. Lymphatics: Small less than 1 cm lymph nodes are present. There is some additional borderline sized lymph nodes within the mediastinum, right greater than left hilum and axilla. These are favored benign and for the most part are not significantly changed. Lungs: There is borderline bronchiectatic changes. Chronic interstitial changes are seen with some ground-glass opacity. No suspicious pulmonary nodules are seen. Probable subtle mosaic pattern. Findings suggest chronic interstitial disease. Findings are inconsistent with UIP. Upper abdomen: Intact. Musculoskeletal: Degenerative changes are seen. IMPRESSION 1. Diffuse interstitial abnormalities with ground-glass opacity and subtle mosaic pattern is seen. Bronchial wall thickening and borderline bronchiectasis is seen. Findings most consistent with chronic interstitial disease and probably not significantly changed since prior. This has however progressed since more remote studies dating back to 2017. Correlate with previous workup and further evaluation if indicated. 2. Borderline sized lymph nodes favored reactive. 3. No suspicious pulmonary nodules. 4. Atherosclerotic disease and significant coronary artery calcification. Electronically signed by: LISA GU MD Date of Signature: 01/04/2021 11:09:34 Procedure Note Lisa Gu MD - 01/04/2021 EXAMINATION: CT CHEST W/O CONTRAST 01/04/2021 INDICATIONS: Solitary pulmonary nodule myeloproliferative disorder. Follow-uppulmonary nodules COMPARISON: Outside CT chest 03/24/2020 TECHNIQUE: Noncontrast helical imaging was performed through the chest. A dose lowering technique was used for this procedure, which may include,but is not limited to, dose reduction technique(s), automated exposurecontrol techniques, use of iterative reconstruction techniques, and ALARA(as low as reasonably achievable) or ALARA/IMAGE Gently techniques. FINDINGS: Cardiovascular: Atherosclerotic disease in the aorta without aneurysmaldilatation. Significant coronary artery calcification is seen. Heartsize is within normal limits. Pleura: No significant pleural effusion is seen. Small pericardialthickening or fluid is unchanged. Lymphatics: Small less than 1 cm lymph nodes are present. There is someadditional borderline sized lymph nodes within the mediastinum, rightgreater than left hilum and axilla. These are favored benign and for themost part are not significantly changed. Lungs: There is borderline bronchiectatic changes. Chronic interstitialchanges are seen with some ground-glass opacity. No suspicious pulmonarynodules are seen. Probable subtle mosaic pattern. Findings suggestchronic interstitial disease. Findings are inconsistent with UIP. Upper abdomen: Intact. Musculoskeletal: Degenerative changes are seen. IMPRESSION 1. Diffuse interstitial abnormalities with ground-glass opacity and subtlemosaic pattern is seen. Bronchial wall thickening and borderlinebronchiectasis is seen. Findings most consistent with chronicinterstitial disease and probably not significantly changed since prior.This has however progressed since more remote studies dating back to 2017.Correlate with previous workup and further evaluation if indicated. 2. Borderline sized lymph nodes favored reactive. 3. No suspicious pulmonary nodules. 4. Atherosclerotic disease and significant coronary arterycalcification. Electronically signed by: LISA GU MD Date of Signature: 01/04/2021 11:09:34 Lefty Sousa MD IMG CT ORDERABLES Final Resu lt from Last 3 Months or Most Recently Relevant to Health Maintenance Insurance MEDICAID [facility] Care Teams Cafe [employer] Relationship Specialty Start Date End Date Dina Cloud PAC [address] [place] [address] PCP - General Physician Control Systems Specialist 05/25/20 Lefty Sousa MD [address] [place] [address] Consulting Physician Hematology and Oncology 01/03/21
--- OUTSIDE RECORDS SUMMARY | 2024-09-16 14:07 | XMS_ITS | Encounter Summary ---
Author Organization [facility] Address [address] [place] [address] Phone Care Team Providers Care Sales And In Home Delivery Specialist Name Role Phone Dina Cloud PAC Primary Care Provider + [phone] Lefty Sousa MD Unavailable Reason for Visit * Reason Comments Medication Refill Encounter Details Date Type Department Care Team (Late st Contact Info) Description 12/20/2023 Refill [facility] [address] [place] [address] Lefty Sousa MD [address] [facility] [address] [address] Medication Refill Social History Tobacco Use Types Packs/Day Years [...] on file Legal Sex Male 11:32 AM INSPECTOR WEIGHTS AND MEASURES Gender Identity Not on file Sexual Orientation Not on file documented as of this encounter Miscellaneous Notes * Telephone Encounter - Norma Bond RN - 12/21/2023 7:59 AM CDT Please refill if appropriate documented in this encounter Plan of Treatment Upcoming Encounters Date Type Department Care Team (Late st Contact Info) Description 12/09/2024 8:30 AM CDT Office Visit [facility] [address] [place] [address] Lefty Sousa MD [address] [place] [address] [address] documented as of this encounter Visit Diagnoses Diagnosis Anemia, unspecified type documented in this encounter Additional Health Concerns Assessment Noted Time PHQ-9 Depression Total Score: 0 04/26/20 9:02 AM CDT documented as of this encounter Care Teams Sales And In Home Delivery Specialist Relationship Specialty Start Date End Date Dina Cloud PAC [address] [place] [phone] PCP - General Physician Buggy Ladle Tender 05/25/20 Lefty Sousa MD [address] [place] [phone] Consulting Physician Hematology and Oncology 01/03/21 documented as of this encounter
--- OUTSIDE RECORDS SUMMARY | 2024-09-16 14:07 | XMS_ITS | Encounter Summary ---
Author Organization [facility] Address [address] [place] [address] Phone Care Team Providers Care Subway Train Operator Name Role Phone Dina Cloud PAC Primary Care Provider + [phone] Lefty Sousa MD Unavailable Encounter Details Date Type Department Care Team (Late st Contact Info) Description 07/04/2021 Telephone [facility] [address] [place] [address] Lefty Sousa MD 1052 [facility] [address] [address] Social History Tobacco Use Types Packs/Day Years Used Date Smoking Tobacco: Every Day Cigarettes 1 50.1 Started: 08/03/1974 Smokeless Tobacco: Never Alcohol Use Standard Drinks/Week Comments No 0 (1 standard drink = 0.6 oz pur e alcohol) PHQ-2 Answer Date Recorded Total Score - Questions 1-9 0 04/04 Sex and Gender Information Value Date Recorded Sex Assigned at Not on file 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 OOD FARMER documented in this encounter Plan of Treatment Upcoming Encounters Date Type Department Care Team (Late st Contact Info) Description 12/09/2024 8:30 AM CDT Office Visit [facility] [address] [place] [phone] Lefty Sousa MD [address] [facility] [address] [address] documented as of this encounter Visit Diagnoses Not on filedocumented in this encounter Additional Health Concerns Assessment Noted Time PHQ-9 Depression Total Score: 0 04/26/20 9:02 AM CDT documented as of this encounter Care Teams Subway Train Operator Relationship Specialty Start Date End Date Dina Cloud PAC [address] [place] [address] PCP - General Physician B2B Appointment Setter 05/25/20 Letfy Sousa MD [address] [place] [phone] Consulting Physician Hematology and Oncology 01/03/21 documented as of this encounter
--- OUTSIDE RECORDS SUMMARY | 2024-09-16 14:07 | XMS_ITS | Clinical Summary ---
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 Gender Identity Not on file Sexual Orientation [...] Hemoglobin A1c (03/24/2020 8:49 PM CDT) Pathologist [facility] Hemoglobin A1c % 8.9(H) 4.0 - 5.6 % [facility] Comment: ADA 2016 GUIDELINES: Initial Diagnostic Criteria HbA1c Result: Interpretation: <5.7% Normal 5.7-6.4% At risk for diabetes mellitus >=6.5% Consistent with diabetes mellitus Diabetes monitoring Target value (ADA Recommended) <7% 03/24/2020 8:49 PM CDT 03/24/2020 8:53 PM CDT Narrative Resulting Agency Comment IN us Milton Jacob MD LAB BLOOD ORDERABLES Final Result Performing Organization Address City/[facility]/ZIP Co de Phone Number [place] [phone] [address] [phone] * Occult blood, fecal non neoplasm screening (01/23/2015 12:00 PM CDT) Pathologist [facility] Stool Occult Blood NEGATIVE NEGATIVE 01/23/2015 2:57 PM CDT [facility] HISTORICAL RESULTS 01/23/2015 12:0 0 PM CDT 01/23/2015 2:36 PM CDT Narrative [facility] HISTORICAL RESULTS - 01/23/2015 2:57 PM CDT Collected By je us Carlos Bernabe MD LAB BODY FLUIDS AND ST OOLS ORDERABLES Final Result [facility] HISTORICAL RESULTS * (ABNORMAL) TNI with LIPID PANEL (01/22/2015 4:47 PM CDT) Pathologist [facility] Troponin I < 0.300 0.000 - 0.300 ng/mL 01/22/2015 5:37 PM CDT [facility] HISTORICAL RESULTS Comment: Reference using MCK[facility]LEY Chemiluminescence Negative: Repeat in 4-6 hours as indicated. Triglycerides 544(H) 0 - 199 mg/dL 01/22/2015 5:39 PM CDT [facility] HISTORICAL RESULTS Comment: LDL (measured) to follow due to Triglycerides >250 mg/dL 12 hr pc highly recommended for Triglyceride Cholesterol 244(H) 0 - 199 mg/dL 01/22/2015 5:39 PM CDT [facility] HISTORICAL RESULTS Comment: Borderline: 200-239 High Risk: >239 HDL Cholesterol 28(L) 40 - 60 mg/dL 01/22/2015 5:39 PM CDT [facility] HISTORICAL RESULTS Comment: Major Risk < 40 mg/dL Moderate Risk 40-60 mg/dL Negative Risk > 60 mg/dL Cholesterol/HDL Ratio 8.7 01/22/2015 5:39 PM CDT [facility] HISTORICAL RESULTS Comment: Cholesterol / HDL Ratio 3.5:1 or less is desirable. Cholesterol / HDL Ratio greater than 5:1 is considered higher risk for developing heart disease. 01/22/2015 4:47 PM CDT 01/22/2015 4:53 PM CDT Narrative [facility] HISTORICAL RESULTS - 01/22/2015 5:39 PM CDT Jerry Tang MD LAB BLOOD ORDERABLES Cristine pal Result [facility] HISTORICAL RESULTS from Last 3 Months or Most Recently Relevant to Health Maintenance Insurance [address] [place] [id number] [facility] Care Teams Government Professor Relationship Specialty Start Date End Date Dina Cloud PA [facility] [address] PCP - General Physician Dupligraph Operator 08/28/23
--- OUTSIDE RECORDS SUMMARY | 2024-09-16 14:07 | XMS_ITS | Encounter Summary ---
Author Organization [facility] Address [address] [place] [address] Phone Care Team Providers Care Customer Service Rep Name Role Phone Dina Cloud PAC Primary Care Provider + [phone] Lefty Sousa MD Unavailable [phone] Encounter Details Date Type Department Care Team (Late st Contact Info) Description 02/06/2022 Telephone [facility] [address] [place] [address] Lefty Sousa MD 1052 [facility] [address] [address] Social History Tobacco Use Types Packs/Day Years Used Date Smoking Tobacco: Every Day Cigarettes 1 50.1 Started: 08/03/1974 Smokeless Tobacco: Never Alcohol Use Standard Drinks/Week Comments No 0 (1 standard drink = 0.6 oz pur e alcohol) PHQ-2 Answer Date Recorded Total Score - Questions 1-9 0 04/0 01/2022 Sex and Gender Information Value Date Recorded Sex Assigned at Not on file 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 documented in this encounter Plan of Treatment Upcoming Encounters Date Type Department Care Team (Late st Contact Info) Description 12/09/2024 8:30 AM CDT Office Visit [facility] [address] [place] [phone] Lefty Sousa MD [facility] [address] [address] documented as of this encounter Visit Diagnoses Not on filedocumented in this encounter Additional Health Concerns Assessment Noted Time PHQ-9 Depression Total Score: 0 04/26/20 9:02 AM CDT documented as of this encounter Care Teams Customer Service Rep Relationship Specialty Start Date End Date Dina Cloud PAC [address] [place] [address] PCP - General Physician Overhead Crane Truck Loader 05/25/20 Lefty Sousa MD [address] [place] [phone] Consulting Physician Hematology and Oncology 01/03/21 documented as of this encounter
--- OUTSIDE RECORDS SUMMARY | 2024-09-16 14:07 | XMS_ITS | Encounter Summary ---
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 Gender Identity Not on file Sexual Orientation Not on file documented as of this encounter Miscellaneous Notes * Telephone Encounter - Cary Chapman - 07/15/2021 3:54 PM CST PT HAD AN APPT TODAY, NO SHOW, CALLED PT, LEFT V/M, LETTER SENT RAL ECONOMIST documented in this encounter Plan of Treatment Upcoming Encounters Date Type Department Care Team (Late st Contact Info) Description 12/09/2024 8:30 AM CDT Office Visit [facility] [address] [place] [phone] Lefty Sousa MD [facility] [address] [address] documented as of this encounter Visit Diagnoses Not on filedocumented in this encounter Additional Health Concerns Assessment Noted Time PHQ-9 Depression Total Score: 0 04/26/20 9:02 AM CDT documented as of this encounter Care Teams Foreign Law Consultant Relationship Specialty Start Date End Date Dina Cloud PAC [address] [place] [address] PCP - General Physician Learning Disabilities Teacher 05/25/20 Lefty Sousa MD [address] [place] [phone] Consulting Physician Hematology and Oncology 01/03/21 documented as of this encounter
--- OUTSIDE RECORDS SUMMARY | 2024-09-16 14:07 | XMS_ITS | Encounter Summary ---
Author Organization [facility] Address [address] [facility] [place] [address] Care Team Providers Care Optical Dispenser Name Role Phone Dina Cloud PA-C Primary Care Provider Encounter Details Date Type Department Care Team (Late Contact Info) Description 01/13/2023 Telephone [facility] - Centralized Scheduling [address] [place] [phone] Nathalie Hassan M, OD [address] [facility] DEPT [place] [phone] Social History Tobacco Use Types Packs/Day Years [...] (Late Contact Info) Description 09/20/2024 9:30 AM BELLY ROLLER Office Visit [facility] - Neurology [address] [place] [address], [place] [address] Meredith Weiss MD [address] [place] [address] 1L [place] [address] 10/18/2024 1:00 AM CDT Clinical Support [facility] - Cardiology [address] [facility], [address] [phone] 10/25/2024 9:00 AM CDT Office Visit [facility] - Cardiology [facility], [address] [phone] Daily Bravo MD [address] [place] [address] 11/08/2024 3:40 PM CDT Office Visit [facility] - Endocrinology [address] [place] [address], [place] [address] Garry Tracey MD [address] [place] [address] 2L DIV [place] [phone] 12/15/2024 2:00 PM CDT Office Visit [facility] - Pulmonology [address] [place] [address], [place] [address] Becca Ford MD [address] [place] [address] 2L DIV OF GEN [place] [address] 01/17/2025 1:10 AM CDT Clinical Support [facility] - Cardiology [address] [facility], [address] [phone] 02/24/2025 9:10 AM CDT Office Visit [facility] - Dermatology [address] [place] [address], [place] [address] Robb Howell MD [address] [place] [address] 3 DE[place] [address] 03/02/2025 9:00 AM CDT Office Visit [facility] - Nephrology [address] [place] [address], [place] [address] Nataliia Cooper MD [address] [place] [address] 3 [place] [address] 04/18/2025 1:10 AM CDT Clinical Support [facility] - Cardiology [address] [place] [phone] 07/18/2025 1:10 AM BELLY ROLLER Clinical Support [facility] - Cardiology [address] [place] [phone] documented as of this encounter Visit Diagnoses Not on filedocumented in this encounter Care Teams Optical Dispenser Relationship Specialty Start Date End Date Dina Cloud PA-C [address] [place] [phone] PCP - General Physician Graphics Production Specialist 07/10/20 documented as of this encounter
--- OUTSIDE RECORDS SUMMARY | 2024-09-16 14:07 | XMS_ITS | Encounter Summary ---
Author Organization [facility] Address [address] [facility] [place] [address] Care Team Providers Care Finance Attorney Name Role Phone Dina Cloud PA-C Primary Care Provider Encounter Details Date Type Department Care Team (Late st Contact Info) Description 09/04/2023 Telephone [facility] - Neurology [address] [place] [address], [place] [address] Meredith Weiss MD [address] [place] [phone] Social History Tobacco Use Types Packs/Day Years [...] that they have not been able to fruit picker this patient's Gabapentin [address] Weiss renewed this prescription on 09/02/2023 and this patient's pharmacy confirmed a receipt of this prescription. I called this patient's pharmacy ([facility] in [place], [place]) and the pharmacy picking tech claimed that they did not have a copy of the prescription. I then called in the prescription as prescribed by Dr. Weiss. RAM REP * Telephone Encounter - Bess Boss - 09/04/2023 12:04 PM CST Patient called in requesting a Med refill. Drug type:gabapintine 300 mg Completely out now Pharmacy:[facility] Patient call back number: [phone] . RAM REP documented in this encounter Plan of Treatment Upcoming Encounters Date Type Department Care Team (Late st Contact Info) Description 09/20/2024 9:30 AM PROGRAM REP Office Visit [facility] - Neurology [address] [place] [address], [facility]ly [facility] [place] [address] Meredith Weiss MD [address] [place] [address] [place] [address] 10/18/2024 1:00 AM CDT Clinical Support [facility] - Cardiology [address] [place] [phone] 10/25/2024 9:00 AM CDT Office Visit [facility] - Cardiology [address] [place] [phone] Daily Bravo MD [address] [place] [address] 11/08/2024 3:40 PM CDT Office Visit [facility] - Endocrinology [address] [place] [address], [place] [address] Garry Tracey MD [address] [place] [address] 2L [place] [address] 12/15/2024 2:00 PM CDT [facility] Pul[facility] [address] [place] [address], [place] [address] Becca Ford MD [address] [place] [address] 2L DIV [place] [address] 01/17/2025 1:10 AM CDT Clinical Support [facility] - Cardiology [address] [place] [phone] 02/24/2025 9:10 AM CDT [facility] Dermatology [address] [place] [address], [place] [address] Robb Howell MD [address] [place] [address] 3L [place] [address] 03/02/2025 9:00 AM CDT Office Visit [facility] - Nephrology [address] [place] [address], [place] [address] Nataliia Cooper MD [address] [place] [address] 3L [place] [address] 04/18/2025 1:10 AM CDT Clinical Support [facility] - Cardiology [address] [place] [address], [address] [phone] 07/18/2025 1:10 AM PROGRAM REP Clinical [facility] [address] [place] [address], [address] [phone] documented as of this encounter Visit Diagnoses Not on filedocumented in this encounter Care Teams Finance Attorney Relationship Specialty Start Date End Date Dina Cloud PA-C [address] [place] [address] PCP - General Physician Electronics Lead 07/10/20 documented as of this encounter
--- OUTSIDE RECORDS SUMMARY | 2024-09-16 14:07 | XMS_ITS | Encounter Summary ---
Author Organization [facility] Address [address] [facility] [place] [address] Care Team Providers Care Neuro Intensivist Physician Name Role Phone Dina Cloud PA-C Primary Care Provider Encounter Details Date Type Department Care Team (Late st Contact Info) Description 01/26/2023 Telephone [facility] - Centralized Scheduling [address] [place] [phone] Garry Tracey MD [address] [place] [phone] Social History Tobacco Use Types Packs/Day Years [...] they need the glucose reader called into [facility] in [place] [phone] * Telephone Encounter - Fam Wilkerson - 01/26/2023 10:52 AM CDT PT needs Freestyle Raj 2 sensor orders sent to [facility] urgently, He has not been able to read glucose levels for 10 days Verified: [phone] Lexi Caregiver documented in this encounter Plan of Treatment Upcoming Encounters Date Type Department Care Team (Late st Contact Info) Description 09/20/2024 9:30 AM EMD TEACHER Office Visit [facility] - Neurology [address] [place] [phone] Meredith Weiss MD [address] [place] [address] 1L [place] [phone] 10/18/2024 1:00 AM CDT Clinical Support [facility] - Cardiology [address] [place] [phone] 10/25/2024 9:00 AM CDT Office Visit [facility] - Cardiology [address] [place] [phone] Daily Bravo MD [address] [place] [address] 11/08/2024 3:40 PM CDT [facility] End[facility] [address] [place] [address] [place] [phone] Garry Tracey MD [address] [place] [address] 2L [place] [phone] 12/15/2024 2:00 PM CDT Office [facility] Pulmonology [address] [place] [address], [place] [address] Becca Ford MD [address] [place] [address] 2L DIV [place] [address] 01/17/2025 1:10 AM CDT Clinical Support [facility] Cardiology [address] [place] [phone] 02/24/2025 9:10 AM CDT Office [facility] Dermatology [address] [place] [address], [place] [address] Robb Howell MD [address] [place] [address] 3L [place] [address] 03/02/2025 9:00 AM CDT [facility] Nephrology [address] [place] [address], [place] [address] Nataliia Cooper MD [address] [place] [address] 3L [place] [address] 04/18/2025 1:10 AM CDT Clinical Support [facility] - Cardiology [address] [place] [phone] 07/18/2025 1:10 AM EMD TEACHER Clinical Support [facility] - Cardiology [address] [place] [phone] documented as of this encounter Visit Diagnoses Not on filedocumented in this encounter Care Teams Neuro Intensivist Physician Relationship Specialty Start Date End Date Dina Cloud PA-C [address] [place] [phone] PCP - General Physician Cis Coordinator 07/10/20 documented as of this encounter
--- OUTSIDE RECORDS SUMMARY | 2024-09-16 14:07 | XMS_ITS | Encounter Summary ---
Author Organization [facility] Health Address [address] [place] [address] Care Team Providers Care Supervisor Assembly Stock Name Role Phone Dina Cloud PA-C Primary Care Provider Encounter Details Date Type Department Care Team (Late st Contact Info) Description 01/26/2023 Telephone [facility] - Centralized Scheduling [address] [place] [phone] Garry Tracey MD [address] [phone] Social History Tobacco Use Types Packs/Day Years [...] needs his prescription resent for Dexcom G7 Police Clerk and Dexcom G7 sensor due to the prescritpion being out dated. Pt callback is [phone] documented in this encounter Plan of Treatment Upcoming Encounters Date Type Department Care Team (Late st Contact Info) Description 09/20/2024 9:30 AM AUTOMOBILE SERVICE STATION MECHANIC Office Visit [facility] - Neurology [address] [place] [phone] Meredith Weiss MD [address] [place] [address] [address] [place] [phone] 10/18/2024 1:00 AM CDT Clinical Support [facility] - Cardiology [address] [place] [phone] 10/25/2024 9:00 AM CDT Office Visit [facility] - Cardiology [address] [place] [phone] Daily Bravo MD [address] [place] [phone] 11/08/2024 3:40 PM CDT Office Visit [facility] - Endocrinology [address] [place] [phone] Garry Tracey MD [address] [place] [address] [address] [place] [phone] 12/15/2024 2:00 PM CDT Office Visit [facility] - Pulmonology [address] [place] [address] [phone] Becca Ford MD [address] [place] [address] [address] [place] [address] 01/17/2025 1:10 AM CDT Clinical Support [facility] - Cardiology [address], [address] [phone] 02/24/2025 9:10 AM CDT Office Visit [facility] - Dermatology [address] [place] [address], [place] [phone] Robb Howell MD [facility] [facility] [address] [place] [address] 03/02/2025 9:00 AM CDT Office Visit [facility] - Nephrology [address] [place] [address], [place] [phone] Nataliia Cooper MD [address] [facility] 3 [place] [address] 04/18/2025 1:10 AM CDT Clinical Support [facility] - Cardiology [address] [facility], [address] [phone] 07/18/2025 1:10 AM AUTOMOBILE SERVICE STATION MECHANIC Clinical Support [facility] - Cardiology [address] [facility], [address] [phone] documented as of this encounter Visit Diagnoses Not on filedocumented in this encounter Care Teams Supervisor Assembly Stock Relationship Specialty Start Date End Date Dina Cloud PA-C [address] [place] [phone] PCP - General Physician Sterile Supply Technician 07/10/20 documented as of this encounter
--- OUTSIDE RECORDS SUMMARY | 2024-09-16 14:07 | XMS_ITS | Referral Summary ---
Author Organization [facility] Address [address] [place] [address] Care Team Providers Care Breastfeeding Program Coordinator Name Role Phone Dina Cloud PA-C Primary Care Provider Source Comments [facility],non-owned Affiliates and Associated Physician Practices is amultiple site organization consisting of ambulatory clinics and hospital sitesin [place], [place], [place] and [place]. This disclosure is being madepursuant to the Care Everywhere program and may not contain all information available regarding this patient. Last updated 18.[facility] Encounters Date Type Department Care Team Description 09/13/2024 Orders Only [facility] - Nephrology [address] [place] [address] Nataliia Cooper MD Hypercalcemia 09/13/2024 Refill [facility] - Neurology [address] [place] [address] Meredith Weiss MD Refill Request 09/08/2024 Travel 09/08/2024 8:15 AM SHUTTLE PREPARATION SUPERVISOR Office Visit [facility] - Urology [address] [place] [address] Rd [address] [place] [phone] Josy Davila DO Pain in left testicle (Primary Dx); S/P TURP; Urinary frequency; Dysuria; Pain in both testicles 09/01/2024 10:31 AM SHUTTLE PREPARATION SUPERVISOR - 09/01/2024 11:59 PM SHUTTLE PREPARATION SUPERVISOR Hospital Encounter [facility] OP DRAW STATION [address] [place] [address] Nataliia Cooper MD Discharge Disposition: Home or Self Care 09/01/2024 Travel 09/01/2024 8:45 AM SHUTTLE PREPARATION SUPERVISOR - 09/01/2024 10:30 AM SHUTTLE PREPARATION SUPERVISOR Hospital Encounter [facility] [address] [place] [address] Nataliia Cooper MD Discharge Disposition: Home or Self Care 09/01/2024 9:30 AM SHUTTLE PREPARATION SUPERVISOR Office Visit [facility] - Nephrology [address] [place] [phone] Nataliia Cooper MD Stage 3 chronic kidney disease, unspecified whether stage 3a or 3b CKD (HCC) (Primary Dx) 08/26/2024 Travel 08/26/2024 9:10 AM SHUTTLE PREPARATION SUPERVISOR Office Visit [facility] - Dermatology [address] [place] [phone] Robb Howell MD 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 (Primary Dx) 08/17/2024 Travel 08/17/2024 10:50 AM SHUTTLE PREPARATION SUPERVISOR Office Visit [facility] - General Dermatology [facility]ev[address] , [facility] [address] [place] [phone] Robb Howell MD Melanocytic nevi of trunk (Primary Dx); [place] angioma; Seborrheic keratoses; Lentigines; Actinic keratosis; History of squamous cell carcinoma of skin; Neoplasm of uncertain behavior of skin; 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 07/19/2024 Travel 07/19/2024 8:20 AM SHUTTLE PREPARATION SUPERVISOR Office Visit [facility] - Cardiology [address] [facility], [facility] [address] [place] [phone] Daily Bravo MD SSS (sick sinus syndrome) (HCC) (Primary Dx); Hypertriglyceridemia 06/29/2024 Refill [facility] - Urology [address], [place] [address] Josy Davila, DO Refill Request 06/21/2024 Travel 06/16/2024 Travel 06/16/2024 2:00 PM SHUTTLE PREPARATION SUPERVISOR Office Visit [facility] - Pulmonology [address] [place] [phone] Becac Ford MD Dyspnea on exertion (Primary Dx); [...] Active vitamin D, ergocalciferol, (DRISDOL) 1.25 MG (95841 UT) capsule Take 1 (one) capsule by [...] 5 01/09/20 23 Active Continuous Blood Gluc Paper Tube Machine Operator (Dexcom G7 Paper Tube Machine Operator) DEVIIndications:T ype 2 diabetes mellitus without complication, unspecified whether bed bug exterminator insulin use (HCC) Use 1 kit as directed 1 Each 01/30/20 23 Active albuterol HFA (ProAir HFA) 108 (90 Base) MCG/ACT inhaler Inhale 2 (two) puffs by mouth every 4 hours as needed 8.5 g 5 06/18/20 23 Active Spacer/Aero-Holdi ng Chambers (AeroChamber) Inhale by mouth as directed 1 Each 5 06/18/20 23 Active HYDROcodone-aceta minophen (Wayan) 10-325 MG tablet Take 1 (one) tablet [...] 2 diabetes mellitus without complication, unspecified whether longterm insulin use (HCC) Use 1 Each every [...] 10/07/2021 Assessment & Plan (10/07/2021 12:23 PM SHUTTLE PREPARATION SUPERVISOR): Triglycerides remain elevated in the setting of uncontrolled DM. Pt has follow up with PCP later this week and Endocrinology in November. Start Vascepa 1 tab po BID. Mixed hyperlipidemia 10/07/2021 Assessment & Plan (10/07/2021 12:24 PM SHUTTLE PREPARATION SUPERVISOR): LDL 28, HDL 29. Continue Repatha and Lipitor 80mg daily. FLP prior to follow up in 3 months. HTN (hypertension) 10/07/2021 Assessment & Plan (10/07/2021 12:27 PM SHUTTLE PREPARATION SUPERVISOR): SBP uncontrolled in clinic today. Did not take his medications prior to this apportionment. Continue lisinopril 20mg daily. SBP on 09/13 149/79. Neoplasm of uncertain behavior of skin Epidermal inclusion cyst 09/27/2021 Solar lentiginosis 09/27/2021 Melanocytic nevi of trunk 09/27/2021 Lipoma of torso 09/27/2021 Cardiac pacemaker in situ 07/04/2021 Assessment & Plan (10/07/2021 12:39 PM SHUTTLE PREPARATION SUPERVISOR): Medtronic PPM, functioning well. See device report from today. Transferred care to our clinic, remotes scheduled. Anemia 03/24/2019 07/16/2023 Myeloproliferative disease 08/26/2018 PAD (peripheral artery disease) 06/02/2018 Occlusion and stenosis of right carotid artery 1 09/23/2016 Immunizations Name Administration Dates Next Due [facility] 12+YR 30MCG/0.3mL 05/13/2023 FLU, HISTORIC VACCINE 05/06/2023 [...] Comments Blood Pressure 164/83 09/08/2024 7:55 AM SHUTTLE PREPARATION SUPERVISOR Pulse 94 09/08/2024 7:55 AM SHUTTLE PREPARATION SUPERVISOR Temperature 36.7 C (98 F) 09/08/2024 7:55 AM SHUTTLE PREPARATION SUPERVISOR Respiratory Rate 17 06/16/2024 1:59 PM SHUTTLE PREPARATION SUPERVISOR Oxygen Saturation 95% 09/08/2024 7:55 AM SHUTTLE PREPARATION SUPERVISOR Inhaled Oxygen Concentration - - Weight 103.1 kg (227 lb 6.4 oz) 09/08/2024 7:55 AM SHUTTLE PREPARATION SUPERVISOR Height 175.3 cm (5' 9 ) 09/08/2024 7:55 AM SHUTTLE PREPARATION SUPERVISOR Body Mass Index 33.58 09/08/2024 7:55 AM SHUTTLE PREPARATION SUPERVISOR Plan of Treatment Upcoming Encounters Date Type Department Care Team (Late st Contact Info) Description 09/20/2024 9:30 AM SHUTTLE PREPARATION SUPERVISOR Office Visit [facility] - Neurology [address] [place] [phone] Meredith Weiss MD [address] [place] [address] [place] [address] 10/18/2024 1:00 AM CDT Clinical Support [facility] - Cardiology [address] [place] [phone] 10/25/2024 9:00 AM CDT [facility] [address] [place] [phone] Daily Bravo MD [address] [place] [phone] 11/08/2024 3:40 PM CDT Office Visit [facility] - Endocrinology [address] [place] [address], [place] [address] Garry Tracey MD [address] [place] [address] [address] [place] [address] 12/15/2024 2:00 PM CDT Office Visit [facility] - Pulmonology [address] [place] [address], [place] [address] Becca Ford MD [address] [place] [address] 2[address] DIV [place] [address] 01/17/2025 1:10 AM CDT Clinical Support [facility] - Cardiology [address] [place] [phone] 02/24/2025 9:10 AM CDT Office [facility] Derm[facility] [address] [place] [address], [place] [address] Robb Howell MD [address] [place] [address] [address] [place] [address] 03/02/2025 9:00 AM CDT Office Visit [facility] - Nephrology [address] [place] [phone] Nataliia Cooper MD [address] [place] [address] 3[address] [place] [address] 04/18/2025 1:10 AM CDT Clinical Support [facility] [address] [place] [phone] 07/18/2025 1:10 AM SHUTTLE PREPARATION SUPERVISOR Clinical Support [facility] - Cardiology [address] [place] [address], [address] [phone] Goals Goal Patient Goal Type Associated Problems Recent Progress Patient-Stated? Author Medication Management General On track( 025 10:03 AM SHUTTLE PREPARATION SUPERVISOR) Ketty Candelario, MAIN Note: Expected end date: on going Interventions: Take all medications as prescribed Let your doctor know right away about any changes in your medications Make sure to request a refill of your medication at least one week prior to your last dose Procedures Procedure Name Priority Date/Time Associated Diagnosis Comments URINE MICROSCOPIC ONLY REFLEX TO CULTURE Routine 09/01/2024 11:37 AM SHUTTLE PREPARATION SUPERVISOR Stage 3 chronic kidney disease, unspecified whether stage 3a or 3b CKD (HCC) MICROALB/CREAT RATIO URINE RANDOM PANEL Routine 09/01/2024 11:37 AM SHUTTLE PREPARATION SUPERVISOR Stage 3 chronic kidney disease, unspecified whether stage 3a or 3b CKD (HCC) URINALYSIS REFLEX MICROSCOPIC REFLEX CULTURE Routine 09/01/2024 11:37 AM SHUTTLE PREPARATION SUPERVISOR Stage 3 chronic kidney disease, unspecified whether stage 3a or 3b CKD (HCC) VITAMIN D 25-HYDROXY Routine 09/01/2024 11:07 AM SHUTTLE PREPARATION SUPERVISOR Stage 3 chronic kidney disease, unspecified whether stage 3a or 3b CKD (HCC) PTH INTACT W/O CALCIUM Routine 11:07 AM SHUTTLE PREPARATION SUPERVISOR Stage 3 chronic kidney disease, unspecified whether stage 3a or 3b CKD (HCC) HEMOGLOBIN A1C Routine 09/01/2024 11:07 AM SHUTTLE PREPARATION SUPERVISOR Stage 3 chronic kidney disease, unspecified whether stage 3a or 3b CKD (HCC) URIC ACID BLOOD Routine 09/01/2024 11:07 AM SHUTTLE PREPARATION SUPERVISOR Stage 3 chronic kidney disease, unspecified whether stage 3a or 3b CKD (HCC) RENAL FUNCTION PANEL Routine 09/01/2024 11:07 AM SHUTTLE PREPARATION SUPERVISOR Stage 3 chronic kidney disease, unspecified whether stage 3a or 3b CKD (HCC) CBC W AUTO DIFFERENTIAL Routine 09/01/19 25 11:07 AM SHUTTLE PREPARATION SUPERVISOR Stage 3 chronic kidney disease, unspecified whether stage 3a or 3b CKD (HCC) US RETROPERITONEAL COMPLETE Routine 09/01/2024 9:37 AM SHUTTLE PREPARATION SUPERVISOR Stage 3 chronic kidney disease, unspecified whether stage 3a or 3b CKD (HCC) VA DESTR MALIG TRUNK,EXTREM 0.6-1 CM Routine 08/26/2024 9:26 AM SHUTTLE PREPARATION SUPERVISOR 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 VA DESTR MALIG TRUNK,EXTREM 0.6-1 CM Routine 08/17/2024 12:25 PM SHUTTLE PREPARATION SUPERVISOR 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 VA DESTROY PREMALIG LESION, 1ST LESION Routine 08/17/2024 12:25 PM SHUTTLE PREPARATION SUPERVISOR Actinic keratosis VA TANGNTL BX SKIN SINGLE LES Routine 08/17/2024 12:24 PM SHUTTLE PREPARATION SUPERVISOR Neoplasm of uncertain behavior of skin DERMATOPATHOLOGY Routine 08/17/2024 3:33 AM SHUTTLE PREPARATION SUPERVISOR Neoplasm of uncertain behavior of skin CARDIAC PROCEDURE ORDER 07/26/2024 [facility] PM DEVICE PROGR EVAL DUAL Routine 07/19/2024 8:47 AM SHUTTLE PREPARATION SUPERVISOR SSS (sick sinus syndrome) (HCC) EKG 12-LEAD Routine 07/19/2024 8:11 AM SHUTTLE PREPARATION SUPERVISOR SSS (sick sinus syndrome) (HCC) CARDIAC PROCEDURE ORDER 07/19/2024 CT LUNG SCREEN LOW DOSE Routine 06/14/20 1:47 PM SHUTTLE PREPARATION SUPERVISOR Nicotine dependence, cigarettes, uncomplicated from Last 3 Months or Most Recently Relevant to Health Maintenance Results * (ABNORMAL) URINE MICROSCOPIC ONLY REFLEX TO CULTURE (09/01/2024 11:37 AM SHUTTLE PREPARATION SUPERVISOR) Reflex Status Culture not indicated 09/01/2024 12:36 PM [facility] WBC UA 0-5 None Seen, 0-5 /HPF 09/01/2024 12:36 PM [facility] Squamous Epithelial Cells UA 0-2 None Seen, 0-2, 3-5 /HPF 09/01/2024 12:36 PM [facility] Mucus UA 1+ /LPF 09/01/2024 12:36 PM [facility] Hyaline Casts UA 3-5(A) None Seen, 0-2 /LPF 09/01/2024 12:36 PM [facility] Urine URINE SPECIMEN OBTAINED BY CLEAN CATCH PROCEDURE / Unknown Collection / Unknown 09/01/2024 11:37 AM SHUTTLE PREPARATION SUPERVISOR 09/01/2024 12:05 PM [facility] - 09/01/2024 12:36 PM SHUTTLE PREPARATION SUPERVISOR Nataliia Cooper MD LAB - URINALYSIS ORD ERABLES [facility] [address] [place] [address], [facility] [phone] * (ABNORMAL) URINALYSIS REFLEX MICROSCOPIC REFLEX CULTURE (09/01/2024 11:37 AM SHUTTLE PREPARATION SUPERVISOR) Color UA Yellow Straw, Yellow 09/01/2024 12:13 PM [facility] Clarity UA Slt Cloudy(A) Clear 09/01/2024 12:13 PM [facility] Specific [place] UA 1.026 1.005 - 1.030 09/01/2024 12:13 PM [facility] pH UA 5.0 5.0 - 8.0 pH 09/01/2024 12:13 PM [facility] Protein UA 2+(A) Negative 09/01/2024 12:13 PM [facility] Glucose UA 3+(A) Negative 09/01/2024 12:13 PM [facility] Ketone UA Negative Negative 09/01/2024 12:13 PM [facility] Bilirubin UA Negative Negative 09/01/2024 12:13 PM [facility] Blood UA Negative Negative 09/01/2024 12:13 PM [facility] Nitrite UA Negative Negative 09/01/2024 12:13 PM [facility] Leukocyte Esterase Negative Negative 09/01/2024 12:13 PM [facility] Urobilinogen UA Negative Negative mg/dL 09/01/2024 12:13 PM [facility] Urine URINE SPECIMEN OBTAINED BY CLEAN CATCH PROCEDURE / Unknown Collection / Unknown 09/01/2024 11:37 AM SHUTTLE PREPARATION SUPERVISOR 09/01/2024 12:05 PM SHUTTLE PREPARATION SUPERVISOR Narrative [facility] - 09/01/2024 12:13 PM SHUTTLE PREPARATION SUPERVISOR Nataliia Cooper MD LAB - URINALYSIS ORD ERABLES Performing Organization Address City/[facility]/ZIP Co de Phone Number [address] [address], [facility] [phone] * (ABNORMAL) MICROALB/CREAT RATIO URINE RANDOM PANEL (09/01/2024 11:37 AM SHUTTLE PREPARATION SUPERVISOR) Albumin Random Urine 755.4 Not Established ug/mL 09/01/2024 12:59 PM [facility] Comment:Result obtained by julio barrett. Creatinine Urine 161.04 Not Established mg/dL 09/01/2024 12:59 PM [facility] Urine Albumin/Creati nine Ratio 469(H) <30 mg/g 09/01/2024 12:59 PM [facility] Urine URINE SPECIMEN OBTAINED BY CLEAN CATCH PROCEDURE / Unknown Collection / Unknown 09/01/2024 11:37 AM SHUTTLE PREPARATION SUPERVISOR 09/01/2024 12:10 PM SHUTTLE PREPARATION SUPERVISOR Nataliia Cooper MD LAB - URINE CHEMISTR Y ORDERABLES Performing Organization Address City/[facility]/ZIP Co de Phone Number [address] [address], [place] [phone] * (ABNORMAL) PTH INTACT W/O CALCIUM (09/01/2024 11:07 AM SHUTTLE PREPARATION SUPERVISOR) PTH Intact 203.7(H) 8.0 - 77.0 pg/mL 09/01/2024 12:15 PM [facility] Blood BLOOD SPECIMEN / Unknown Lab Venipuncture / Unknown 09/01/2024 11:07 AM SHUTTLE PREPARATION SUPERVISOR 09/01/2024 11:42 AM SHUTTLE PREPARATION SUPERVISOR Nataliia Cooper MD LAB - CHEMISTRY SERENA PAGE Performing Organization Address City/[facility]/ZIP Co de Phone Number [address] [address], [facility] [phone] * (ABNORMAL) URIC ACID BLOOD (09/01/2024 11:07 AM SHUTTLE PREPARATION SUPERVISOR) Uric Acid 7.3(H) 3.5 - 7.2 mg/dL 09/01/2024 12:14 PM [facility] Blood BLOOD SPECIMEN / Unknown Lab Venipuncture / Unknown 09/01/2024 11:07 AM SHUTTLE PREPARATION SUPERVISOR 09/01/2024 11:42 AM SHUTTLE PREPARATION SUPERVISOR Nataliia Cooper MD LAB - CHEMISTRY SERENA PAGE Performing Organization Address [facility] Co de Phone Number [address] [address], [facility] [phone] * (ABNORMAL) HEMOGLOBIN A1C (09/01/2024 11:07 AM SHUTTLE PREPARATION SUPERVISOR) Hemoglobin A1c 7.7(H) <=5.6 % 09/01/2024 1:10 PM [facility] Estimated Average Glucose 174 mg/dL 09/01/2024 1:10 PM [facility] Comment: HbA1c Interpretation: Normal : < 5.7% Pre-diabetes: 5.7-6.4% Diabetes: Equal to or greater than 6.5% Test results diagnostic of diabetes should be repeated for confirmation. Treatment target values recommended by ADA and other clinical organizations should be used to evaluate metabolic control in patients. Reference: [place] [employer], Standards of Care in Diabetes -2020 In patients 70 years and older consider HbA1c target range of 7.0-7.5% (Reference: Vickey Moser et al. JAMDA. 2012) The Sebia assay for the measurement of HbA1c is a National Glycohemoglobin Standardization Program (NGSP) certified method. Blood BLOOD SPECIMEN / Unknown Lab Venipuncture / Unknown 09/01/2024 11:07 AM SHUTTLE PREPARATION SUPERVISOR 09/01/2024 11:42 AM SHUTTLE PREPARATION SUPERVISOR Nataliia Cooper MD LAB - CHEMISTRY SERENA PAGE Performing Organization Address City/[facility]/ZIP Co de Phone Number [address] [address], [facility] [phone] * VITAMIN D 25-HYDROXY (09/01/2024 11:07 AM SHUTTLE PREPARATION SUPERVISOR) Pathologist [facility] Vitamin D, 25 Hydroxy 43.2 30.0 - 80.0 ng/mL 09/01/2024 12:32 PM SHUTTLE PREPARATION SUPERVISOR [facility] Comment: The recommendations for 25-Hydroxy Vitamin D [...] Lab Venipuncture / Unknown 09/01/2024 11:07 AM SHUTTLE PREPARATION SUPERVISOR 09/01/2024 11:42 AM SHUTTLE PREPARATION SUPERVISOR Nataliia Cooper MD LAB - CHEMISTRY SERENA PAGE Performing Organization Address City/[facility]/ZIP Co de Phone Number [address] [address], [facility] [phone] * (ABNORMAL) CBC WITH DIFFERENTIAL (09/01/2024 11:07 AM SHUTTLE PREPARATION SUPERVISOR) WBC 11.8(H) 4.0 - 10.7 x10E9/L 09/01/2024 11:56 AM [facility] RBC Count 4.20(L) 4.30 - 5.80 x10E12/L 09/01/2024 11:56 AM [facility] Hemoglobin 14.7 13.3 - 17.5 g/dL 09/01/2024 11:56 AM [facility] Hematocrit 44.0 38.7 - 51.1 % 09/01/2024 11:56 AM [facility] MCV 104.8(H) 80.0 - 98.0 fL 09/01/2024 11:56 AM [facility] MCH 35.0(H) 26.7 - 33.6 pg 09/01/2024 11:56 AM [facility] MCHC 33.4 31.7 - 36.3 g/dL 09/01/2024 11:56 AM [facility] RDW-CV 14.6 11.3 - 14.8 % 09/01/2024 11:56 AM [facility] Platelet Count 285 150 - 420 x10E9/L 09/01/2024 11:56 AM [facility] MPV 10.3 7.8 - 11.4 fL 09/01/2024 11:56 AM [facility] Neutrophil % 49.1 41.0 - 74.0 % 09/01/2024 11:56 AM [facility] Lymphocyte % 38.5 17.0 - 47.0 % 09/01/2024 11:56 AM [facility] Monocyte % 7.1 3.0 - 11.0 % 09/01/2024 11:56 AM [facility] Eosinophil % 4.0 0.0 - 7.0 % 09/01/2024 11:56 AM [facility] Basophil % 0.8 0.0 - 1.6 % 09/01/2024 11:56 AM [facility] Immature Granulocytes % 0.5 0.0 - 1.0 % 09/01/2024 11:56 AM [facility] Neutrophil Absolute 5.82 1.60 - 7.50 x10E9/L 09/01/2024 11:56 AM [facility] Lymphocyte Absolute 4.56(H) 1.00 - 4.40 x10E9/L 09/01/2024 11:56 AM [facility] Monocyte Absolute 0.84 0.15 - 1.00 x10E9/L 09/01/2024 11:56 AM [facility] Eosinophil Absolute 0.47 0.00 - 0.60 x10E9/L 09/01/2024 11:56 AM [facility] Basophil Absolute 0.09 0.00 - 0.13 x10E9/L 09/01/2024 11:56 AM [facility] Blood BLOOD SPECIMEN / Unknown Lab Venipuncture / Unknown 09/01/2024 11:07 AM SHUTTLE PREPARATION SUPERVISOR 09/01/2024 11:42 AM SHUTTLE PREPARATION SUPERVISOR Nataliia Cooper MD LAB - HEMATOLOGY ORD ERABLES Performing Organization Address City/[facility]/ZIP Co de Phone Number [facility] [address] [place] [phone] [phone] * (ABNORMAL) RENAL FUNCTION PANEL (09/01/2024 11:07 AM SHUTTLE PREPARATION SUPERVISOR) BUN 27(H) 7 - 26 mg/dL 09/01/2024 12:14 PM [facility] Creatinine 2.02(H) 0.71 - 1.16 mg/dL 09/01/2024 12:14 PM [facility] Sodium 141 136 - 145 mmol/L 09/01/2024 12:14 PM [facility] Potassium 4.6(H) 3.5 - 4.5 mmol/L 09/01/2024 12:14 PM [facility] Chloride 107 98 - 107 mmol/L 09/01/2024 12:14 PM [facility] CO2 27 22 - 29 mmol/L 09/01/2024 12:14 PM [facility] Glucose 154(H) 70 - 99 mg/dL 09/01/2024 12:14 PM [facility] Albumin 3.9 3.4 - 5.0 g/dL 09/01/2024 12:14 PM [facility] Calcium 11.3(H) 8.4 - 10.2 mg/dL 09/01/2024 12:14 PM [facility] Phosphorus 2.9 2.8 - 5.1 mg/dL 09/01/2024 12:14 PM [facility] Anion Gap 7 6 - 16 09/01/2024 12:14 PM [facility] BUN/Creatinine Ratio 13 7 - 23 09/01/2024 12:14 PM [facility] Osmolality Calculated 300(H) 275 - 295 mOsm/kg 09/01/2024 12:14 PM SHUTTLE PREPARATION SUPERVISOR [facility] eGFR by CKD-EPI 36(L) >=90 mL/min/1.7 3 m2 09/01/2024 12:14 PM SHUTTLE PREPARATION SUPERVISOR [facility] Blood BLOOD SPECIMEN / Unknown Lab Venipuncture / Unknown 09/01/2024 11:07 AM SHUTTLE PREPARATION SUPERVISOR 09/01/2024 11:42 AM SHUTTLE PREPARATION SUPERVISOR Nataliia Cooper MD LAB - CHEMISTRY SERENA PAGE [facility] [address] [place] [address], [facility] [phone] * US Retroperitoneal Complete (09/01/2024 9:37 AM SHUTTLE PREPARATION SUPERVISOR) Anatomical Region Laterality Modality Abdomen Ultrasound 09/01/2024 9:45 AM SHUTTLE PREPARATION SUPERVISOR Impressions 09/01/2024 9:50 AM SHUTTLE PREPARATION SUPERVISOR Impression: 1. Normal-sized kidneys with normal echogenicity. 2. No hydronephrosis or nephrolithiasis. > Interpreting Provider: Denae Grijalva MD on 09/01/2024 9:50 AM Narrative 09/01/2024 9:50 AM SHUTTLE PREPARATION SUPERVISOR PROCEDURE: US RETROPERITONEAL COMPLETE DATE/TIME OF EXAM: [...] AM Nataliia Cooper MD US ORDERABLES * VA DESTR MALIG TRUNK,EXTREM 0.6-1 CM (08/26/2024 9:26 AM SHUTTLE PREPARATION SUPERVISOR) Narrative Robb Howell MD - 08/26/2024 9:26 AM SHUTTLE PREPARATION SUPERVISOR Amandeep Helton MD 08/26/2024 9:41 AM PROCEDURE: [...] tolerated the procedure well. Amandeep Helton MD [facility] Dermatology Resident Robb Howell MD PROCEDURE/MINOR SURG ICAL ORDERABLES * VA DESTR MALIG TRUNK,EXTREM 0.6-1 CM (08/17/2024 12:25 PM SHUTTLE PREPARATION SUPERVISOR) Narrative Robb Howell MD - 08/17/2024 12:25 PM SHUTTLE PREPARATION SUPERVISOR Guy Gómez MD 08/17/2024 12:26 PM PROCEDURE: [...] Howell MD PROCEDURE/MINOR SURG ICAL ORDERABLES * VA DESTROY PREMALIG LESION, 1ST LESION (08/17/2024 12:25 PM SHUTTLE PREPARATION SUPERVISOR) Narrative Robb Howell MD - 08/17/2024 12:25 PM SHUTTLE PREPARATION SUPERVISOR Guy Gómez MD 08/17/2024 12:25 PM Diagnosis and treatment options discussed. Cryotherapy (Liquid Nitrogen) to 1 lesion for 4-6 seconds. Number of cycles: 1. Wound care reviewed. Robb Howell MD PROCEDURE/MINOR SURG ICAL ORDERABLES * VA TANGNTL BX SKIN SINGLE LES (08/17/2024 12:24 PM SHUTTLE PREPARATION SUPERVISOR) Narrative Robb Howell MD - 08/17/2024 12:24 PM SHUTTLE PREPARATION SUPERVISOR Guy Gómez MD 08/17/2024 12:24 PM Risks, [...] ICAL ORDERABLES * DERMATOPATHOLOGY (08/17/2024 3:33 AM SHUTTLE PREPARATION SUPERVISOR) Case Report Dermatopathology Report Case: [id number] Authorizing Provider: Robb Howell MD Collected: 08/17/2024 03:33 AM Ordering Location: [facility] - Received: 08/18/2024 11:05 AM General Dermatology Pathologist: Rose Soto MD Specimen: Skin, left forearm 1:26 PM [facility] D[facility]AT[facility] Final Diagnosis Specimen A. 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 The specimen consists of a shave biopsy measuring 38m36b1 mm. Jar 0. 1:26 PM [facility] characteristic determined by the Dermatopathology Laboratory at [facility], directed by Dr. Barbara Becker. These tests need not be, and therefore are not, approved by the [place] Food and Drug Administration. The tests are used for clinical purposes. Billing Codes Specimen Charges Stain Charges 71925 1 5 1:26 PM SHUTTLE PREPARATION SUPERVISOR DERMATOPATHOLOGY LABORATORY Embedded Images 5 1:26 PM SHUTTLE PREPARATION SUPERVISOR DERMATOPATHOLOGY LABORATORY Pathology/Cytolo gy TISSUE SPECIMEN FROM SKIN / Unknown 08/17/2024 3:33 AM SHUTTLE PREPARATION SUPERVISOR 08/18/2024 11:05 AM SHUTTLE PREPARATION SUPERVISOR Robb Howell MD LAB - PATHOLOGY/CYTO LOGY ORDERABLES DERMATOPATHOLOGY LABORATORY [facility] - Department of Dermatology [address], [address] Floor [address] [phone] * CARDIAC PROCEDURE ORDER (07/26/2024) Only the most recent of2 resultswithin the time period is included. Narrative 07/26/2024 Ordered by an unspecified provider. Scanned Document CARDIAC SERVICES ORD ERABLES * [facility] PM DEVICE PROGR EVAL DUAL (07/19/2024 8:47 AM SHUTTLE PREPARATION SUPERVISOR) Narrative Daily Bravo MD - 07/19/2024 8:47 AM SHUTTLE PREPARATION SUPERVISOR Daily Bravo MD 07/19/2024 8:49 AM This is a 64 year old male with a H/O sick sinus syndrome . The patient received a Medtronic Advisa DR dual chamber pacemaker on 09/23/16. The patients device is functioning appropriately according to the instrument sterilizer's recommendations with appropriate battery voltage, charge time, shock impedance (s), lead impedance (s) along with pacing and sensing thresholds. The patient will be scheduled for 3 month remote follow-up. Instructed to call with questions or problem. Daily Bravo MD PROCEDURE/MINOR SURG ICAL ORDERABLES * EKG 12-LEAD (07/19/2024 8:11 AM SHUTTLE PREPARATION SUPERVISOR) Ventricular Rate 71 BPM [facility] Atrial Rate 71 BPM [facility] P-R Interval 244 ms [facility] QRS Duration ms 194 ms [facility] Q-T Interval ms 446 ms [facility] QTC Calculation (Bezet) 484 ms [facility] Calculated R Bath -85 degrees [facility] Calculated T Bath 34 degrees [facility] Interpretation EKG [...] 1:27:54 PM [facility] 07/19/2024 8:11 AM SHUTTLE PREPARATION SUPERVISOR 07/19/2024 1:27 PM SHUTTLE PREPARATION SUPERVISOR Daily Bravo MD ECG ORDERABLES ANNIE ACEVEDO * CT LUNG CANCER SCREEN LOW DOSE (06/14/2024 1:47 PM SHUTTLE PREPARATION SUPERVISOR) Anatomical Region Laterality Modality Chest Computed Tomogra phy 06/14/2024 3:19 PM SHUTTLE PREPARATION SUPERVISOR Impressions 06/14/2024 8:13 PM SHUTTLE PREPARATION SUPERVISOR Impression: No pulmonary nodules identified. Lung-RADS category [...] Cancer. > Dictated by Naz Roblero MD, (assistant professor of radiology). IRuel MD have personally reviewed and interpreted this examination/study. > Interpreting Provider: Ruel Whitehead MD on 06/14/2024 8:13 PM Narrative 06/14/2024 8:13 PM SHUTTLE PREPARATION SUPERVISOR PROCEDURE: CT LUNG SCREEN LOW DOSE DATE/TIME [...] Cancer. > Dictated by Naz Roblero MD, (assistant professor of radiology). IRuel MD have personally reviewed and interpreted this examination/study. > Interpreting Provider: Ruel Whitehead MD on 06/14/2024 8:13 PM Becca Ford MD CT ORDERABLES from Last 3 Months or Most Recently Relevant to Health Maintenance Care Teams Breastfeeding Program Coordinator Relationship Specialty Start Date End Date Dina Cloud PA-C [address] [place] [phone] PCP - General Physician Harnessmaker Apprentice 07/10/20
--- OUTSIDE RECORDS SUMMARY | 2024-09-16 14:07 | XMS_ITS | Encounter Summary ---
Author Organization [facility] Address [address] [place] [address] Care Team Providers Care Seasoner Hand Name Role Phone Dina Cloud PA-C Primary Care Provider Reason for Visit * Reason Onset Date Comments Med Question 02/29/2024 Encounter Details Date Type Department Care Team (Late st Contact Info) Description 02/29/2024 Telephone [facility] - General Dermatology [address], [address] [place] [address] Robb Howell MD [address] [facility] 3 [place] [address] Med Question Social History Tobacco Use Types [...] before surgery that is scheduled for 03/16. health data administrator is wanting to know when should pt stop taking medication. # [phone] documented in this encounter Plan of Treatment Upcoming Encounters Date Type Department Care Team (Late st Contact Info) Description 09/20/2024 9:30 AM RESIDENT ATHLETIC TRAINER [facility] Neurology [address] [place] [address], [place] [address] Meredith Weiss MD [address] [place] [address] [place] [address] 10/18/2024 1:00 AM CDT Clinical Support [facility] - Cardiology [address] [phone] 10/25/2024 9:00 AM CDT Office Visit [facility] - Cardiology [address] [facility], [address] [phone] Daily Bravo MD [facility] S [address] [address] 11/08/2024 3:40 PM CDT Office Visit [facility] - Endocrinology [address] [place] [phone] Garry Tracey MD [address] [place] [address] 2L [place] [phone] 12/15/2024 2:00 PM CDT Office Visit [facility] - Pulmonology [address] [place] [address], [place] [address] Becca Ford MD [address] [place] [address] 2L DIV [place] [address] 01/17/2025 1:10 AM CDT Clinical Support [facility] - Cardiology [address] [place] [phone] 02/24/2025 9:10 AM CDT Office [facility] - Dermatology [address] [place] [phone] Robb Howell MD [address] [place] [address] 3L [place] [address] 03/02/2025 9:00 AM CDT Office [facility] - Nephrology [address] [place] [address], [place] [address] Nataliia Cooper MD [address] [place] [address] 3L [place] [address] 04/18/2025 1:10 AM CDT Clinical Support [facility] - Cardiology [address] [place] [phone] 07/18/2025 1:10 AM RESIDENT ATHLETIC TRAINER Clinical Support [facility] - Cardiology [address] [place] [phone] documented as of this encounter Visit Diagnoses Not on filedocumented in this encounter Care Teams Seasoner Hand Relationship Specialty Start Date End Date Dina Cloud PA-C [address] [place] [address] PCP - General Physician Hand Bookbinder 07/10/20 documented as of this encounter
--- OUTSIDE RECORDS SUMMARY | 2024-09-16 14:07 | XMS_ITS | Encounter Summary ---
Author Organization [facility] Address [address] [facility] [place] [address] Care Team Providers Care Field Logistics Coordinator Name Role Phone Dina Cloud PA-C Primary Care Provider Reason for Visit * Reason Onset Date Comments Medication Prior Auth Request 11/20/2023 Encounter Details Date Type Department Care Team (Late st Contact Info) Description 11/20/2023 Telephone [facility] - Cardiology [address] [facility] [address] [place] [address] Kika Ocampo, PA [address] [place] [address] Medication Prior Auth Request Social History Tobacco [...] 140 MG/ML prefilled syringe Call Back Number: [phone] documented in this encounter Plan of Treatment Upcoming Encounters Date Type Department Care Team (Late st Contact Info) Description 09/20/2024 9:30 AM LUNG GUN OPERATOR [facility] Neurology [address] [place] [address], [place] [phone] Meredith Weiss MD [address] [place] [address] 1L [place] [phone] 10/18/2024 1:00 AM CDT Clinical Support [facility] - Cardiology [address] [place] [phone] 10/25/2024 9:00 AM CDT Office Visit [facility] - Cardiology [address] [place] [phone] Daily Bravo MD [address] [place] [address] 11/08/2024 3:40 PM CDT [facility] - Endocrinology [address] [place] [address], [place] [phone] Garry Tracey MD [address] [place] [address] 2L [place] [phone] 12/15/2024 2:00 PM CDT Office Visit [facility] - Pulmonology [address] [place] [phone] Becca Ford MD [address] [facility] 2L DIV [place] [address] 01/17/2025 1:10 AM CDT Clinical [facility] Cardiology [address] [facility], [address] [phone] 02/24/2025 9:10 AM CDT Office Visit [facility] - Dermatology [address] [place] [address], [place] [address] Robb Howell MD [address] [facility] 3L [place] [address] 03/02/2025 9:00 AM CDT Office Visit [facility] - Nephrology [address] [place] [address], [place] [address] Nataliia Cooper MD [address] [facility] 3L [place] [address] 04/18/2025 1:10 AM CDT Clinical Support [facility] - Cardiology [address] [facility], [address] [phone] 07/18/2025 1:10 AM LUNG GUN OPERATOR Clinical Support [facility] - Cardiology [address] [facility], [address] [phone] documented as of this encounter Visit Diagnoses Not on filedocumented in this encounter Care Teams Field Logistics Coordinator Relationship Specialty Start Date End Date Dina Cloud PA-C [address] [place] [phone] PCP - General Physician [employer] 07/10/20 documented as of this encounter
--- OUTSIDE RECORDS SUMMARY | 2024-09-16 14:07 | XMS_ITS | Encounter Summary ---
Author Organization [facility] Address [address] [facility] [place] [address] Care Team Providers Care Bisque Placer Name Role Phone Dina Cloud PA-C Primary Care Provider Reason for Visit * Reason Onset Date Comments Medication Prior Auth Request 03/04/2024 Encounter Details Date Type Department Care Team (Late st Contact Info) Description 03/04/2024 Telephone [facility] - Cardiology [address] [facility] [address] [place] [address] Kika Ocampo PA [address] [place] [address] Medication Prior Auth Request Social History Tobacco [...] 03/04/2024 8:54 AM CDT Reason for call: Lxei (pts caregiver) called requesting a authorization for evolocumab (Repatha) 140 MG/ML prefilled syringe to the pts insurance for a refill Patient Call Back number: [phone] documented in this encounter Plan of Treatment Upcoming Encounters Date Type Department Care Team (Late st Contact Info) Description 09/20/2024 9:30 AM IT SYSTEMS ANALYST [facility] - Neurology [address] [place] [address], [place] [address] Meredith Weiss MD [address] [place] [address] [place] [address] 10/18/2024 1:00 AM CDT Clinical Support [facility] - Cardiology [address] [place] [phone] 10/25/2024 9:00 AM CDT Office Visit [facility] - Cardiology [address] [place] [phone] Daily Bravo MD [address] [place] [address] 11/08/2024 3:40 PM CDT Office Visit [facility] - Endocrinology [address] [place] [phone] Garry Tracey MD [address] [place] [address] 2L [place] [address] 12/15/2024 2:00 PM CDT Office [facility] - Pulmonology [address] [place] [address] [place] [address] Becca Ford MD [address] [place] [address] 2L DIV OF [place] [address] 01/17/2025 1:10 AM CDT Clinical Support [facility] - Cardiology [address] [place] [phone] 02/24/2025 9:10 AM CDT Office Visit [facility] - Dermatology [address] [place] [phone] Robb Howell MD [address] [place] [address] 3L [place] [address] 03/02/2025 9:00 AM CDT Office Visit [facility] - Nephrology [address] [place] [phone] Nataliia Cooper MD [address] [place] [address] 3L [place] [address] 04/18/2025 1:10 AM CDT Clinical Support [facility] - Cardiology [address] [place] [phone] 07/18/2025 1:10 AM IT SYSTEMS ANALYST Clinical Support [facility] - Cardiology [address] [place] [phone] documented as of this encounter Visit Diagnoses Not on filedocumented in this encounter Care Teams Bisque Placer Relationship Specialty Start Date End Date Dina Cloud PA-C [address] [place] [phone] PCP - General Physician Python Developer 07/10/20 documented as of this encounter
--- OUTSIDE RECORDS SUMMARY | 2024-09-16 14:07 | XMS_ITS | Referral Summary ---
Author Organization [facility] [address] Address [address] [place] [address] Care Team Providers Care Electrical Wirer Name Role Phone Dina Cloud Primary Care [...] on file Legal Sex Male 9:27 PM PRECISION DANCER Gender Identity Not on file Sexual Orientation [...] A1c % 8.9(H) 4.0 - 5.6 % [facility] Comment: ADA 2016 GUIDELINES: Initial Diagnostic Criteria HbA1c Result: Interpretation: <5.7% Normal 5.7-6.4% At risk for diabetes mellitus >=6.5% Consistent with diabetes mellitus Diabetes monitoring Target value (ADA Recommended) <7% 03/24/2020 8:49 PM CDT 03/24/2020 8:53 PM CDT Narrative Resulting Agency Comment IN us Milton Jacob MD LAB BLOOD ORDERABLES Final Result Performing Organization Address City/[facility]/ZIP Co de Phone Number [address] [phone] * Occult blood, fecal non neoplasm screening (01/23/2015 12:00 PM CDT) Stool Occult Blood NEGATIVE NEGATIVE 01/23/2015 12:0 0 PM CDT 01/23/2015 2:36 PM CDT Narrative [facility] HISTORICAL RESULTS - 01/23/2015 2:57 PM CDT Collected By je us Carlos Bernabe MD LAB BODY FLUIDS AND ST OOLS ORDERABLES Final Result [facility] HISTORICAL RESULTS * (ABNORMAL) TNI with LIPID PANEL (01/22/2015 4:47 PM CDT) Troponin I < 0.300 0.000 - 0.300 ng/mL Comment: Reference using [facility] Chemiluminescence Negative: Repeat in 4-6 hours as indicated. Triglycerides 544(H) 0 - 199 mg/dL Comment: LDL (measured) to follow due to Triglycerides >250 mg/dL 12 hr pc highly recommended for Triglyceride Cholesterol 244(H) 0 - 199 mg/dL Comment: Borderline: 200-239 High Risk: >239 HDL Cholesterol 28(L) 40 - 60 mg/dL Comment: Major Risk < 40 mg/dL Moderate Risk 40-60 mg/dL Negative Risk > 60 mg/dL Cholesterol/HDL Ratio 8.7 Comment: Cholesterol / HDL Ratio 3.5:1 or less is desirable. Cholesterol / HDL Ratio greater than 5:1 is considered higher risk for developing heart disease. 01/22/2015 4:47 PM CDT 01/22/2015 4:53 PM CDT Narrative [facility] HISTORICAL RESULTS - 01/22/2015 5:39 PM CDT Jerry Tang MD LAB BLOOD ORDERABLES Cristine l Result [facility] HISTORICAL RESULTS from Last 3 Months or Most Recently Relevant to Health Maintenance Insurance [facility] Care Teams Electrical Wirer Relationship Specialty Start Date End Date Dina Cloud PA [address] [place] [phone] PCP - General Physician Acupressure Therapist 08/28/23
--- OUTSIDE RECORDS SUMMARY | 2024-09-16 14:07 | XMS_ITS | Clinical Summary ---
Author Organization [facility] Address [address] [place] [address] Care Team Providers Care Fiber Optic Central Office Installer Name Role Phone Dina Cloud PA-C Primary Care Provider Source Comments [facility],non-owned Affiliates and Associated Physician Practices is amultiple site organization consisting of ambulatory clinics and hospital sitesin [place], [place], [place] and [place]. This disclosure is being madepursuant to the Care Everywhere program and may not contain all information available regarding this patient. Last updated 18.[facility] Allergies Active Allergy Reactions Criticality Noted Date [...] Active vitamin D, ergocalciferol, (DRISDOL) 1.25 MG (80819 UT) capsule Take 1 (one) capsule by [...] 5 01/09/20 23 Active Continuous Blood Gluc Building Construction Supervisor (Dexcom G7 Building Construction Supervisor) DEVIIndications:T ype 2 diabetes mellitus without complication, unspecified whether terminal operations supervisor insulin use (HCC) Use 1 kit as directed 1 Each 01/30/20 23 Active albuterol HFA (ProAir HFA) 108 (90 Base) MCG/ACT inhaler Inhale 2 (two) puffs by mouth every 4 hours as needed 8.5 g 5 06/18/20 23 Active Spacer/Aero-Holdi ng Chambers (AeroChamber) Inhale by mouth as directed 1 Each 5 06/18/20 23 Active HYDROcodone-aceta minophen (Lincoln) 10-325 MG tablet Take 1 (one) tablet [...] diabetes mellitus without complication, unspecified whether terminal operations supervisor insulin use (HCC) Use 1 Each [...] 10/07/2021 Assessment & Plan (10/07/2021 12:23 PM SLIDE FASTENERS INSPECTOR): Triglycerides remain elevated in the setting of uncontrolled DM. Pt has follow up with PCP later this week and Endocrinology in November. Start Vascepa 1 tab po BID. Mixed hyperlipidemia 10/07/2021 Assessment & Plan (10/07/2021 12:24 PM SLIDE FASTENERS INSPECTOR): LDL 28, HDL 29. Continue Repatha and Lipitor 80mg daily. FLP prior to follow up in 3 months. HTN (hypertension) 10/07/2021 Assessment & Plan (10/07/2021 12:27 PM SLIDE FASTENERS INSPECTOR): SBP uncontrolled in clinic today. Did not take his medications prior to this apportionment. Continue lisinopril 20mg daily. SBP on 09/13 149/79. Neoplasm of uncertain behavior of skin Epidermal inclusion cyst 09/27/2021 Solar lentiginosis 09/27/2021 Melanocytic nevi of trunk 09/27/2021 Lipoma of torso 09/27/2021 Cardiac pacemaker in situ 07/04/2021 Assessment & Plan (10/07/2021 12:39 PM SLIDE FASTENERS INSPECTOR): Medtronic PPM, functioning well. See device report from today. Transferred care to our clinic, remotes scheduled. Anemia 03/24/2019 07/16/2023 Myeloproliferative disease 08/26/2018 PAD (peripheral artery disease) 06/02/2018 Occlusion and stenosis of right carotid artery 1 09/23/2016 Encounters Date Type Department Care Team Description 09/13/2024 Orders Only [facility] - Nephrology [address] [place] [address] Nataliia Cooper MD Hypercalcemia 09/13/2024 Refill [facility] - Neurology [address] [place] [phone] Meredith Wesis MD Refill Request 09/08/2024 8:15 AM SLIDE FASTENERS INSPECTOR Office Visit [facility] - Urology [address] [place] [address] Josy Davila DO Pain in left testicle (Primary Dx); S/P TURP; Urinary frequency; Dysuria; Pain in both testicles 09/08/2024 Travel 09/01/2024 10:31 AM SLIDE FASTENERS INSPECTOR - 09/01/2024 11:59 PM SLIDE FASTENERS INSPECTOR Hospital Encounter [facility] OP DRAW ST[facility] [address] [place] [address] Nataliia Cooper MD Discharge Disposition: Home or Self Care 09/01/2024 9:30 AM SLIDE FASTENERS INSPECTOR Office Visit [facility] - Nephrology [address] [place] [phone] Nataliia Cooper MD Stage 3 chronic kidney disease, unspecified whether stage 3a or 3b CKD (HCC) (Primary Dx) 09/01/2024 8:45 AM SLIDE FASTENERS INSPECTOR - 09/01/2024 10:30 AM SLIDE FASTENERS INSPECTOR Hospital Encounter [facility] [address] [place] [address] Nataliia Cooper MD Discharge Disposition: Home or Self Care 09/01/2024 Travel 08/26/2024 9:10 AM SLIDE FASTENERS INSPECTOR Office Visit [facility] - Dermatology [address] [place] [phone] Robb Howell MD 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 (Primary Dx) 08/26/2024 Travel 08/17/2024 10:50 AM SLIDE FASTENERS INSPECTOR Office Visit [facility] - General Dermatology [address] [place] [phone] Robb Howell MD Melanocytic nevi of trunk (Primary Dx); Mansfield angioma; Seborrheic keratoses; Lentigines; Actinic keratosis; History of squamous cell carcinoma of skin; Neoplasm of uncertain behavior of skin; 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 08/17/2024 Travel 07/19/2024 8:20 AM SLIDE FASTENERS INSPECTOR Office Visit [facility] - Cardiology [address] [place] [address] Daily Braov MD SSS (sick sinus syndrome) (HCC) (Primary Dx); Hypertriglyceridemia 07/19/2024 Travel 06/29/2024 Refill [facility] - Urology [address] [place] [phone] Josy Davila DO Refill Request 06/21/2024 Travel 06/16/2024 2:00 PM SLIDE FASTENERS INSPECTOR Office Visit [facility] - Pulmonology [address] [place] [phone] Becca Ford MD Dyspnea on exertion (Primary Dx); Nicotine dependence, cigarettes, uncomplicated; AGNIESZKA (obstructive sleep apnea); Tobacco abuse; Immunization counseling 06/16/2024 Travel from Last 3 Months Immunizations Name Administration Dates Next Due COVID ClinicalBox 12+YR 30MCG/0.3mL 05/13/2023 FLU, HISTORIC VACCINE 05/06/2023 [...] Comments Blood Pressure 164/83 09/08/2024 7:55 AM SLIDE FASTENERS INSPECTOR Pulse 94 09/08/2024 7:55 AM SLIDE FASTENERS INSPECTOR Temperature 36.7 C (98 F) 09/08/2024 7:55 AM SLIDE FASTENERS INSPECTOR Respiratory Rate 17 06/16/2024 1:59 PM SLIDE FASTENERS INSPECTOR Oxygen Saturation 95% 09/08/2024 7:55 AM SLIDE FASTENERS INSPECTOR Inhaled Oxygen Concentration - - Weight 103.1 kg (227 lb 6.4 oz) 09/08/2024 7:55 AM SLIDE FASTENERS INSPECTOR Height 175.3 cm (5' 9 ) 09/08/2024 7:55 AM SLIDE FASTENERS INSPECTOR Body Mass Index 33.58 09/08/2024 7:55 AM SLIDE FASTENERS INSPECTOR Plan of Treatment Upcoming Encounters Date Type Department Care Team (Late st Contact Info) Description 09/20/2024 9:30 AM SLIDE FASTENERS INSPECTOR Office Visit [facility] - Neurology [address] [place] [address], [place] [address] Meredith Weiss MD [address] [place] [address] [place] [address] 10/18/2024 1:00 AM CDT Clinical Support [facility] - Cardiology [address] [facility], [address] [phone] 10/25/2024 9:00 AM CDT [facility] [address] [place] [address], [address] [phone] Daily Bravo MD [address] [place] [address] 11/08/2024 3:40 PM CDT [facility] Endocrinology [address] [place] [address], [place] [address] Garry Tracey MD [address] [place] [address] [address] [place] [address] 12/15/2024 2:00 PM CDT [facility] Pulmonology [address] [place] [address], [place] [address] Becca Ford MD [address] [place] [address] 2[address] DIV [place] [address] 01/17/2025 1:10 AM CDT Clinical Support [facility] - Cardiology [facility] [address] [address] 02/24/2025 9:10 AM CDT Office Visit [facility] - Dermatology [address] [place] [address], [place] [address] Robb Howell MD [address] [place] [address] [address] [place] [address] 03/02/2025 9:00 AM CDT Office Visit [facility] - Nephrology [address] [facility], [place] [address] Nataliia Cooper MD [address] [facility] [address] [place] [address] 04/18/2025 1:10 AM CDT Clinical Support [facility] - Cardiology [address] [facility], [address] [phone] 07/18/2025 1:10 AM SLIDE FASTENERS INSPECTOR Clinical Support [facility] - Cardiology [address] [facility], [place] [address] [place] [phone] Health Maintenance Due Date Last Done Comments [...] Management General On track( 025 10:03 AM SLIDE FASTENERS INSPECTOR) No Ketty Dudley, MAIN Note: Expected end [...] REFLEX TO CULTURE Routine 09/01/2024 11:37 AM SLIDE FASTENERS INSPECTOR Stage 3 chronic kidney disease, unspecified whether stage 3a or 3b CKD (HCC) MICROALB/CREAT RATIO URINE RANDOM PANEL Routine 09/01/2024 11:37 AM SLIDE FASTENERS INSPECTOR Stage 3 chronic kidney disease, unspecified whether stage 3a or 3b CKD (HCC) URINALYSIS REFLEX MICROSCOPIC REFLEX CULTURE Routine 09/01/2024 11:37 AM SLIDE FASTENERS INSPECTOR Stage 3 chronic kidney disease, unspecified whether stage 3a or 3b CKD (HCC) VITAMIN D 25-HYDROXY Routine 09/01/2024 11:07 AM SLIDE FASTENERS INSPECTOR Stage 3 chronic kidney disease, unspecified whether stage 3a or 3b CKD (HCC) PTH INTACT W/O CALCIUM Routine 11:07 AM SLIDE FASTENERS INSPECTOR Stage 3 chronic kidney disease, unspecified whether stage 3a or 3b CKD (HCC) HEMOGLOBIN A1C Routine 09/01/2024 11:07 AM SLIDE FASTENERS INSPECTOR Stage 3 chronic kidney disease, unspecified whether stage 3a or 3b CKD (HCC) URIC ACID BLOOD Routine 09/01/2024 11:07 AM SLIDE FASTENERS INSPECTOR Stage 3 chronic kidney disease, unspecified whether stage 3a or 3b CKD (HCC) RENAL FUNCTION PANEL Routine 09/01/2024 11:07 AM SLIDE FASTENERS INSPECTOR Stage 3 chronic kidney disease, unspecified whether stage 3a or 3b CKD (HCC) CBC W AUTO DIFFERENTIAL Routine 09/01/19 11:07 AM SLIDE FASTENERS INSPECTOR Stage 3 chronic kidney disease, unspecified whether stage 3a or 3b CKD (HCC) US RETROPERITONEAL COMPLETE Routine 09/01/2024 9:37 AM SLIDE FASTENERS INSPECTOR Stage 3 chronic kidney disease, unspecified whether stage 3a or 3b CKD (HCC) NC DESTR MALIG TRUNK,EXTREM 0.6-1 CM Routine 08/26/2024 9:26 AM SLIDE FASTENERS INSPECTOR 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 NC DESTR MALIG TRUNK,EXTREM 0.6-1 CM Routine 08/17/2024 12:25 PM SLIDE FASTENERS INSPECTOR 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 NC DESTROY PREMALIG LESION, 1ST LESION Routine 08/17/2024 12:25 PM SLIDE FASTENERS INSPECTOR Actinic keratosis NC TANGNTL BX SKIN SINGLE LES Routine 08/17/2024 12:24 PM SLIDE FASTENERS INSPECTOR Neoplasm of uncertain behavior of skin DERMATOPATHOLOGY Routine 08/17/2024 3:33 AM SLIDE FASTENERS INSPECTOR Neoplasm of uncertain behavior of skin CARDIAC PROCEDURE ORDER 07/26/2024 NC PM DEVICE PROGR EVAL DUAL Routine 07/19/2024 8:47 AM SLIDE FASTENERS INSPECTOR SSS (sick sinus syndrome) (HCC) EKG 12-LEAD Routine 07/19/2024 8:11 AM SLIDE FASTENERS INSPECTOR SSS (sick sinus syndrome) (HCC) CARDIAC PROCEDURE ORDER 07/19/2024 CT LUNG SCREEN LOW DOSE Routine 06/14/20 24 1:47 PM SLIDE FASTENERS INSPECTOR Nicotine dependence, cigarettes, uncomplicated from Last 3 Months or Most Recently Relevant to Health Maintenance Results * (ABNORMAL) URINE MICROSCOPIC ONLY REFLEX TO CULTURE (09/01/2024 11:37 AM SLIDE FASTENERS INSPECTOR) Reflex Status Culture not indicated 09/01/2024 12:36 PM [facility] WBC UA 0-5 None Seen, 0-5 /HPF 09/01/2024 12:36 PM [facility] Squamous Epithelial Cells UA 0-2 None Seen, 0-2, 3-5 /HPF 09/01/2024 12:36 PM [facility] Mucus UA 1+ /LPF 09/01/2024 12:36 PM [facility] Hyaline Casts UA 3-5(A) None Seen, 0-2 /LPF 09/01/2024 12:36 PM [facility] Urine URINE SPECIMEN OBTAINED BY CLEAN CATCH PROCEDURE / Unknown Collection / Unknown 09/01/2024 11:37 AM SLIDE FASTENERS INSPECTOR 09/01/2024 12:05 PM SLIDE FASTENERS INSPECTOR [facility] - 09/01/2024 12:36 PM SLIDE FASTENERS INSPECTOR Nataliia Cooper MD LAB - URINALYSIS ORD ERABLES [facility] [address] [place] [address], [facility] [phone] * (ABNORMAL) URINALYSIS REFLEX MICROSCOPIC REFLEX CULTURE (09/01/2024 11:37 AM SLIDE FASTENERS INSPECTOR) Color UA Yellow Straw, Yellow 09/01/2024 12:13 PM [facility] Clarity UA Slt Cloudy(A) Clear 09/01/2024 12:13 PM [facility] Specific Collison UA 1.026 1.005 - 1.030 09/01/2024 12:13 PM [facility] pH UA 5.0 5.0 - 8.0 pH 09/01/2024 12:13 PM [facility] Protein UA 2+(A) Negative 09/01/2024 12:13 PM [facility] Glucose UA 3+(A) Negative 09/01/2024 12:13 PM [facility] Ketone UA Negative Negative 09/01/2024 12:13 PM [facility] Bilirubin UA Negative Negative 09/01/2024 12:13 PM [facility] Blood UA Negative Negative 09/01/2024 12:13 PM [facility] Nitrite UA Negative Negative 09/01/2024 12:13 PM [facility] Leukocyte Esterase Negative Negative 09/01/2024 12:13 PM [facility] Urobilinogen UA Negative Negative mg/dL 09/01/2024 12:13 PM [facility] Urine URINE SPECIMEN OBTAINED BY CLEAN CATCH PROCEDURE / Unknown Collection / Unknown 09/01/2024 11:37 AM SLIDE FASTENERS INSPECTOR 09/01/2024 12:05 PM [facility] Narrative [facility] - 09/01/2024 12:13 PM SLIDE FASTENERS INSPECTOR Nataliia Cooper MD LAB - URINALYSIS ORD ERABLES [address] [address], [facility] [phone] * (ABNORMAL) MICROALB/CREAT RATIO URINE RANDOM PANEL (09/01/2024 11:37 AM SLIDE FASTENERS INSPECTOR) Albumin Random Urine 755.4 Not Established ug/mL 09/01/2024 12:59 PM [facility] Comment:Result obtained by julio barrett. Creatinine Urine 161.04 Not Established mg/dL 09/01/2024 12:59 PM [facility] Urine Albumin/Creati nine Ratio 469(H) <30 mg/g 09/01/2024 12:59 PM [facility] Urine URINE SPECIMEN OBTAINED BY CLEAN CATCH PROCEDURE / Unknown Collection / Unknown 09/01/2024 11:37 AM SLIDE FASTENERS INSPECTOR 09/01/2024 12:10 PM SLIDE FASTENERS INSPECTOR Nataliia Cooper MD LAB - URINE CHEMISTR Y ORDERABLES [address] [address], [facility] [phone] * (ABNORMAL) PTH INTACT W/O CALCIUM (09/01/2024 11:07 AM SLIDE FASTENERS INSPECTOR) PTH Intact 203.7(H) 8.0 - 77.0 pg/mL 09/01/2024 12:15 PM SLIDE FASTENERS INSPECTOR [facility] Blood BLOOD SPECIMEN / Unknown Lab Venipuncture / Unknown 09/01/2024 11:07 AM SLIDE FASTENERS INSPECTOR 09/01/2024 11:42 AM SLIDE FASTENERS INSPECTOR Nataliia Cooper MD LAB - CHEMISTRY SERENA PAGE [address] [address], [facility] [phone] * (ABNORMAL) URIC ACID BLOOD (09/01/2024 11:07 AM SLIDE FASTENERS INSPECTOR) Uric Acid 7.3(H) 3.5 - 7.2 mg/dL 09/01/2024 12:14 PM SLIDE FASTENERS INSPECTOR [facility] Blood BLOOD SPECIMEN / Unknown Lab Venipuncture / Unknown 09/01/2024 11:07 AM SLIDE FASTENERS INSPECTOR 09/01/2024 11:42 AM SLIDE FASTENERS INSPECTOR Nataliia Cooper MD LAB - CHEMISTRY SERENA PAGE [address] [address], [place] [phone] * (ABNORMAL) HEMOGLOBIN A1C (09/01/2024 11:07 AM SLIDE FASTENERS INSPECTOR) Hemoglobin A1c 7.7(H) <=5.6 % 09/01/2024 1:10 PM [facility] Estimated Average Glucose 174 mg/dL 09/01/2024 1:10 PM [facility] Comment: HbA1c Interpretation: Normal : < 5.7% Pre-diabetes: 5.7-6.4% Diabetes: Equal to or greater than 6.5% Test results diagnostic of diabetes should be repeated for confirmation. Treatment target values recommended by ADA and other clinical organizations should be used to evaluate metabolic control in patients. Reference: [place] [employer], Standards of Care in Diabetes -2020 In patients 70 years and older consider HbA1c target range of 7.0-7.5% (Reference: Vickey Moser et al. OWEN. 2012) The Sebia assay for the measurement of HbA1c is a National Glycohemoglobin Standardization Program (NGSP) certified method. Blood BLOOD SPECIMEN / Unknown Lab Venipuncture / Unknown 09/01/2024 11:07 AM SLIDE FASTENERS INSPECTOR 09/01/2024 11:42 AM SLIDE FASTENERS INSPECTOR Nataliia Cooper MD LAB - CHEMISTRY SERENA PAGE Performing Organization Address [facility]/ZIP Co de Phone Number [address] [address], [facility] [phone] * VITAMIN D 25-HYDROXY (09/01/2024 11:07 AM SLIDE FASTENERS INSPECTOR) Vitamin D, 25 Hydroxy 43.2 30.0 - 80.0 ng/mL 09/01/2024 12:32 PM SLIDE FASTENERS INSPECTOR [facility] Comment: The recommendations for 25-Hydroxy Vitamin D [...] Lab Venipuncture / Unknown 09/01/2024 11:07 AM SLIDE FASTENERS INSPECTOR 09/01/2024 11:42 AM SLIDE FASTENERS INSPECTOR Nataliia Cooper MD LAB - CHEMISTRY SERENA PAGE Performing Organization Address City/[facility]/ZIP Co de Phone Number [address] [address], [place] [phone] * (ABNORMAL) CBC WITH DIFFERENTIAL (09/01/2024 11:07 AM SLIDE FASTENERS INSPECTOR) WBC 11.8(H) 4.0 - 10.7 x10E9/L 09/01/2024 11:56 AM [facility] RBC Count 4.20(L) 4.30 - 5.80 x10E12/L 09/01/2024 11:56 AM [facility] Hemoglobin 14.7 13.3 - 17.5 g/dL 09/01/2024 11:56 AM [facility] Hematocrit 44.0 38.7 - 51.1 % 09/01/2024 11:56 AM [facility] MCV 104.8(H) 80.0 - 98.0 fL 09/01/2024 11:56 AM [facility] MCH 35.0(H) 26.7 - 33.6 pg 09/01/2024 11:56 AM [facility] MCHC 33.4 31.7 - 36.3 g/dL 09/01/2024 11:56 AM [facility] RDW-CV 14.6 11.3 - 14.8 % 09/01/2024 11:56 AM [facility] Platelet Count 285 150 - 420 x10E9/L 09/01/2024 11:56 AM [facility] MPV 10.3 7.8 - 11.4 fL 09/01/2024 11:56 AM [facility] Neutrophil % 49.1 41.0 - 74.0 % 09/01/2024 11:56 AM [facility] Lymphocyte % 38.5 17.0 - 47.0 % 09/01/2024 11:56 AM [facility] Monocyte % 7.1 3.0 - 11.0 % 09/01/2024 11:56 AM [facility] Eosinophil % 4.0 0.0 - 7.0 % 09/01/2024 11:56 AM [facility] Basophil % 0.8 0.0 - 1.6 % 09/01/2024 11:56 AM [facility] Immature Granulocytes % 0.5 0.0 - 1.0 % 09/01/2024 11:56 AM [facility] Neutrophil Absolute 5.82 1.60 - 7.50 x10E9/L 09/01/2024 11:56 AM [facility] Lymphocyte Absolute 4.56(H) 1.00 - 4.40 x10E9/L 09/01/2024 11:56 AM [facility] Monocyte Absolute 0.84 0.15 - 1.00 x10E9/L 09/01/2024 11:56 AM [facility] Eosinophil Absolute 0.47 0.00 - 0.60 x10E9/L 09/01/2024 11:56 AM [facility] Basophil Absolute 0.09 0.00 - 0.13 x10E9/L 09/01/2024 11:56 AM [facility] Blood BLOOD SPECIMEN / Unknown Lab Venipuncture / Unknown 09/01/2024 11:07 AM [facility] 09/01/2024 11:42 AM [facility] Nataliia Cooper MD LAB - HEMATOLOGY ORD ERABLES Performing Organization Address City/State/[facility] Co de Phone Number [facility] [address] [place] [phone] [phone] * (ABNORMAL) RENAL FUNCTION PANEL (09/01/2024 11:07 AM [facility]) BUN 27(H) 7 - 26 mg/dL 09/01/2024 12:14 PM [facility] Creatinine 2.02(H) 0.71 - 1.16 mg/dL 09/01/2024 12:14 PM [facility] Sodium 141 136 - 145 mmol/L 09/01/2024 12:14 PM [facility] Potassium 4.6(H) 3.5 - 4.5 mmol/L 09/01/2024 12:14 PM [facility] Chloride 107 98 - 107 mmol/L 09/01/2024 12:14 PM [facility] CO2 27 22 - 29 mmol/L 09/01/2024 12:14 PM [facility] Glucose 154(H) 70 - 99 mg/dL 09/01/2024 12:14 PM [facility] Albumin 3.9 3.4 - 5.0 g/dL 09/01/2024 12:14 PM [facility] Calcium 11.3(H) 8.4 - 10.2 mg/dL 09/01/2024 12:14 PM [facility] Phosphorus 2.9 2.8 - 5.1 mg/dL 09/01/2024 12:14 PM [facility] Anion Gap 7 6 - 16 09/01/2024 12:14 PM [facility] BUN/Creatinine Ratio 13 7 - 23 09/01/2024 12:14 PM [facility] Osmolality Calculated 300(H) 275 - 295 mOsm/kg 09/01/2024 12:14 PM [facility] eGFR by CKD-EPI 36(L) >=90 mL/min/1.7 3 m2 09/01/2024 12:14 PM [facility] Blood BLOOD SPECIMEN / Unknown Lab Venipuncture / Unknown 09/01/2024 11:07 AM SLIDE FASTENERS INSPECTOR 09/01/2024 11:42 AM SLIDE FASTENERS INSPECTOR Nataliia Cooper MD LAB - CHEMISTRY SERENA PAGE [facility] Organization Address City/State/[facility] Co de Phone Number [address] [address], [facility] [phone] * US Retroperitoneal Complete (09/01/2024 9:37 AM SLIDE FASTENERS INSPECTOR) Anatomical Region Laterality Modality Abdomen Ultrasound 09/01/2024 9:45 AM SLIDE FASTENERS INSPECTOR Impressions 09/01/2024 9:50 AM SLIDE FASTENERS INSPECTOR Impression: 1. Normal-sized kidneys with normal echogenicity. 2. No hydronephrosis or nephrolithiasis. > Interpreting Provider: Denae Grijalva MD on 09/01/2024 9:50 AM Narrative 09/01/2024 9:50 AM SLIDE FASTENERS INSPECTOR PROCEDURE: US RETROPERITONEAL COMPLETE DATE/TIME OF EXAM: [...] AM Nataliia Cooper MD US ORDERABLES * NC DESTR MALIG TRUNK,EXTREM 0.6-1 CM (08/26/2024 9:26 AM SLIDE FASTENERS INSPECTOR) Narrative Robb Howell MD - 08/26/2024 9:26 AM SLIDE FASTENERS INSPECTOR Amandeep Helton MD 08/26/2024 9:41 AM PROCEDURE: [...] tolerated the procedure well. Amandeep Helton MD [facility] Dermatology Resident Robb Howell MD PROCEDURE/MINOR SURG ICAL ORDERABLES * NC DESTR MALIG TRUNK,EXTREM 0.6-1 CM (08/17/2024 12:25 PM SLIDE FASTENERS INSPECTOR) Narrative Robb Howell MD - 08/17/2024 12:25 PM SLIDE FASTENERS INSPECTOR Guy Gómez MD 08/17/2024 12:26 PM PROCEDURE: [...] Howell MD PROCEDURE/MINOR SURG ICAL ORDERABLES * NC DESTROY PREMALIG LESION, 1ST LESION (08/17/2024 12:25 PM SLIDE FASTENERS INSPECTOR) Narrative Robb Howell MD - 08/17/2024 12:25 PM SLIDE FASTENERS INSPECTOR Guy Gómez MD 08/17/2024 12:25 PM Diagnosis and treatment options discussed. Cryotherapy (Liquid Nitrogen) to 1 lesion for 4-6 seconds. Number of cycles: 1. Wound care reviewed. Robb Howell MD PROCEDURE/MINOR SURG ICAL ORDERABLES * NC TANGNTL BX SKIN SINGLE LES (08/17/2024 12:24 PM SLIDE FASTENERS INSPECTOR) Narrative Robb Howell MD - 08/17/2024 12:24 PM SLIDE FASTENERS INSPECTOR Guy Gómez MD 08/17/2024 12:24 PM Risks, [...] ICAL ORDERABLES * DERMATOPATHOLOGY (08/17/2024 3:33 AM SLIDE FASTENERS INSPECTOR) Case Report Dermatopathology Report Case: [id number] Authorizing Provider: Robb Howell MD Collected: 08/17/2024 03:33 AM Ordering Location: [facility] - Received: 08/18/2024 11:05 AM General Dermatology Pathologist: Rose Soto MD Specimen: Skin, left forearm 1:26 PM SLIDE FASTENERS INSPECTOR DERMATOPATHOLOGY LABORATORY Final Diagnosis Specimen A. SKIN, left forearm: SQUAMOUS CELL CARCINOMA IN SITU (PINK'S DISEASE) (D04.62) 1:26 PM SLIDE FASTENERS INSPECTOR DERMATOPATHOLOGY LABORATORY Clinical History Suspect NMSC 1:26 PM SLIDE FASTENERS INSPECTOR DERMATOPATHOLOGY LABORATORY Gross Description Specimen A: Received is one formalin filled container labeled with the patient's name and designated left forearm. The specimen consists of a shave biopsy measuring 27t63x5 mm. Jar 0. 1:26 PM [facility] DERMATOPATHOLOGY LABORATORY Microscopic Description Specimen A. SKIN, left forearm: The epidermis shows parakeratosis, full thickness disorderly maturation of keratinocytes, mitoses at different levels, and dyskeratotic cells. 1:26 PM [facility] DERMATOPATHOLOGY LABORATORY Disclaimer An external and internal positive and negative controls are appropriate for the histochemical, immunohistochemical and immunofluorescence stain(s) in this case (if any), except where stated explicitly. The performance characteristics of the stain(s) cited in this report were developed and its performance characteristic determined by the Dermatopathology Laboratory at [facility], directed by Dr. Barbara Becker. These tests need not be, and therefore are not, approved by the [place] Food and Drug Administration. The tests are used for clinical purposes. Billing Codes Specimen Charges Stain Charges 09247 1 1:26 PM [facility] DERMATOP[facility]OLOGY [facility]OR[facility]ORY Embedded Images 1:26 PM [facility] DERMATOPATHOLOGY [facility]ORATORY Pathology/Cytolo gy TISSUE SPECIMEN FROM SKIN / Unknown 08/17/2024 3:33 AM [employer] FASTENERS INSPECTOR 08/18/2024 11:05 AM [employer] FA[employer]ENERS INSPECTOR Robb Howell MD LAB - PATHOLOGY/CYTO LOGY ORDERABLES DERMATOPATHOLOGY LABORATORY [facility] Department of Dermatology [address], [address] [phone] * CARDIAC PROCEDURE ORDER (07/26/2024) Only the most recent of2 resultswithin the time period is included. Narrative 07/26/2024 Ordered by an unspecified provider. Scanned Document CARDIAC SERVICES ORD ERABLES * NC PM DEVICE PROGR EVAL DUAL (07/19/2024 8:47 AM SLIDE FASTENERS INSPECTOR) Narrative Daily Bravo MD - 07/19/2024 8:47 AM SLIDE FASTENERS INSPECTOR Daily Bravo MD 07/19/2024 8:49 AM This is a 64 year old male with a H/O sick sinus syndrome . The patient received a [employer] Advisa DR dual chamber pacemaker on 09/23/16. The patients device is functioning appropriately according to the education technician's recommendations with appropriate battery voltage, charge time, shock impedance (s), lead impedance (s) along with pacing and sensing thresholds. The patient will be scheduled for 3 month remote follow-up. Instructed to call with questions or problem. Daily Bravo MD PROCEDURE/MINOR SURG ICAL ORDERABLES * EKG 12-LEAD (07/19/2024 8:11 AM SLIDE FASTENERS INSPECTOR) Pathologist [facility] Ventricular Rate 71 BPM [facility] Atrial Rate 71 BPM [facility] P-R Interval 244 ms [facility] QRS Duration ms 194 ms [facility] Q-T Interval ms 446 ms [facility] QTC Calculation (Bezet) 484 ms [facility] Calculated R [place] -85 degrees [facility] Calculated T [place] 34 degrees [facility] Interpretation EKG [...] 1:27:54 PM ANNIE ACEVEDO 07/19/2024 8:11 AM SLIDE FASTENERS INSPECTOR 07/19/2024 1:27 PM [employer] FASTENERS INSPECTOR Daily Bravo MD ECG ORDERABLES ANNIE ACEVEDO * CT LUNG CANCER SCREEN LOW DOSE (06/14/2024 1:47 PM SLIDE FASTENERS INSPECTOR) Anatomical Region Laterality Modality Chest Computed Tomogra phy 06/14/2024 3:19 PM SLIDE FASTENERS INSPECTOR Impressions 06/14/2024 8:13 PM SLIDE FASTENERS INSPECTOR Impression: No pulmonary nodules identified. Lung-RADS category [...] Cancer. > Dictated by Naz Roblero MD, (senior vice president and chief information officer). I, Ruel Whitehead MD have personally reviewed and interpreted this examination/study. > Interpreting Provider: Ruel Whitehead MD on 06/14/2024 8:13 PM Narrative 06/14/2024 8:13 PM SLIDE FASTENERS INSPECTOR PROCEDURE: CT LUNG SCREEN LOW DOSE DATE/TIME [...] Cancer. > Dictated by Naz Roblero MD, (senior vice president and chief information officer). I, Ruel Whitehead MD have personally reviewed and interpreted this examination/study. 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
--- OUTSIDE RECORDS SUMMARY | 2024-09-16 14:07 | XMS_ITS | Patient Health Summary ---
Author Organization [facility] Address [address] [place] [address] Care Team Providers Care Mental Health Clinician Name Role Phone Dina Cloud PA-C Primary Care Provider Note from [facility],non-owned Affiliates and Associated Physician Practices is amultiple site organization consisting of ambulatory clinics and hospital sitesin [place], [place], [place] and [place]. This disclosure is being madepursuant to the Care Everywhere program and may not contain all information available regarding this patient. Last updated 18.[facility] Allergies * Penicillins(Other) -Low Criticality Medications * Be aware that medications may not be up to date on this document. Alwaysverify current medications with the patient. * folic acid (FOLVITE) 1 MG tablet(Started 07/20/2017) Take by mouth DAILY. * atorvastatin (LIPITOR) 80 MG tablet(Started 05/26/2017) Take 1 (one) tablet by mouth once daily * vitamin D, ergocalciferol, (DRISDOL) 1.25 MG (78831 UT) capsule(Started 06/27/2020) Take 1 (one) capsule [...] refills by 01/08/2024 * Continuous Blood Gluc Regulated Program Manager (Dexcom G7 Regulated Program Manager) SHANE(Started 01/29/2023) Use 1 kit as directed * albuterol HFA (ProAir HFA) 108 (90 Base) MCG/ACT inhaler(Started 06/18/2023) Inhale 2 (two) puffs by mouth every 4 hours as needed 5 refills by 06/17/2024 * Spacer/Aero-Holding Chambers (AeroChamber)(Started 06/18/2023) Inhale by mouth as directed 5 refills by 06/17/2024 * HYDROcodone-acetaminophen (Atmore) 10-325 MG tablet(Started 09/04/2023) Take 1 (one) [...] Comments Blood Pressure 164/83 09/08/2024 7:55 AM CONVERSION MAN Pulse 94 09/08/2024 7:55 AM CONVERSION MAN Temperature 36.7 C (98 F) 09/08/2024 7:55 AM CONVERSION MAN Respiratory Rate 17 06/16/2024 1:59 PM CONVERSION MAN Oxygen Saturation 95% 09/08/2024 7:55 AM CONVERSION MAN Inhaled Oxygen Concentration - - Weight 103.1 kg (227 lb 6.4 oz) 09/08/2024 7:55 AM CONVERSION MAN Height 175.3 cm (5' 9 ) 09/08/2024 7:55 AM CONVERSION MAN Body Mass Index 33.58 09/08/2024 7:55 AM CONVERSION MAN Procedures * URINE MICROSCOPIC ONLY REFLEX TO [...] stage 3a or 3b CKD (HCC) * MO DESTR MALIG TRUNK,EXTREM 0.6-1 CM(Performed 08/26/2024) 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 * MO DESTR MALIG TRUNK,EXTREM 0.6-1 CM(Performed 08/17/2024) 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 * MO DESTROY PREMALIG LESION, 1ST LESION(Performed 08/17/2024) Performed for Actinic keratosis * MO TANGNTL BX SKIN SINGLE LES(Performed 08/17/2024) Performed for Neoplasm of uncertain behavior of skin * DERMATOPATHOLOGY(Performed 08/17/2024) Performed for Neoplasm of uncertain behavior of skin * CARDIAC PROCEDURE ORDER(Performed 07/26/2024) * MO PM DEVICE PROGR EVAL DUAL(Performed 07/19/2024) Performed for SSS (sick sinus syndrome) ([facility]) * EKG 12-LEAD(Performed 07/19/2024) Performed for SSS (sick sinus syndrome) ([facility]) * CARDIAC PROCEDURE ORDER(Performed 07/19/2024) * CT LUNG SCREEN LOW DOSE(Performed 06/14/2024) Performed for Nicotine dependence, cigarettes, uncomplicated * MO PM/ICD REMOTE TECH SERV(Performed 06/04/2024) Performed for SSS (sick sinus syndrome) ([facility]) * MO PM DEVICE INTERROGATE REMOTE(Performed 06/04/2024) Performed for SSS (sick sinus syndrome) ([facility]) * CARDIAC PROCEDURE ORDER(Performed 04/22/2024) * URINE MICROSCOPIC ONLY REFLEX TO CULTURE(Performed 04/21/2024) Performed for Stage 3 chronic kidney disease, unspecified whether stage 3a or 3b CKD ([facility]) * MICROALB/CREAT RATIO URINE RANDOM PANEL(Performed 04/21/2024) Performed for Stage 3 chronic kidney disease, unspecified whether stage 3a or 3b CKD ([facility]) * URINALYSIS REFLEX MICROSCOPIC REFLEX CULTURE(Performed 04/21/2024) Performed for Stage 3 chronic kidney disease, unspecified whether stage 3a or 3b CKD (HCC) * VITAMIN D 25-HYDROXY(Performed 04/21/2024) Performed for Stage 3 chronic kidney disease, unspecified whether stage 3a or 3b CKD ([facility]) * PTH INTACT W/O CALCIUM(Performed 04/21/2024) Performed for Stage 3 chronic kidney disease, unspecified whether stage 3a or 3b CKD ([facility]) * HEMOGLOBIN A1C(Performed 04/21/2024) Performed for Stage 3 chronic kidney disease, unspecified whether stage 3a or 3b CKD ([facility]) * URIC ACID BLOOD(Performed 04/21/2024) Performed for Stage 3 chronic kidney disease, unspecified whether stage 3a or 3b CKD ([facility]) * RENAL FUNCTION PANEL(Performed 04/21/2024) Performed for Stage 3 chronic kidney disease, unspecified whether stage 3a or 3b CKD ([facility]) * CBC W AUTO DIFFERENTIAL(Performed 04/21/2024) Performed for Stage 3 chronic kidney disease, unspecified whether stage 3a or 3b CKD ([facility]) * DEXA BONE DENSITY AXIAL SKELETON(Performed 04/21/2024) Performed for Hyperparathyroidism ([facility]) * LAB RESULTS ORDER(Performed 03/09/2024) * PROC UROFLOWMETRY(Performed 02/25/2024) Performed for S/P TURP * MO MSR PVR U&/BLADD CAPCTY US NON(Performed 02/25/2024) Performed for S/P TURP * URINALYSIS AUTO - POINT OF CARE (AMB) SLU(Performed 02/25/2024) Performed for S/P TURP * MO TANGNTL BX SKIN SINGLE LES(Performed 01/29/2024) Performed for Neoplasm of uncertain behavior of skin * MO DESTROY PREMALIG LESION, 2-14(Performed 01/29/2024) Performed for Actinic keratosis * MO DESTROY PREMALIG LESION, 1ST LESION(Performed 01/29/2024) Performed for Actinic keratosis * DERMATOPATHOLOGY(Performed 01/29/2024) Performed for Neoplasm of uncertain behavior of skin * CARDIAC PROCEDURE ORDER(Performed 01/25/2024) * MO PM DEVICE PROGR EVAL DUAL(Performed 01/12/2024) Performed for SSS (sick sinus syndrome) ([facility]) * PTH RELATED PEPTIDE(Performed 09/28/2023) * VITAMIN D 1,25 DIHYDROXY(Performed 09/28/2023) * PTH INTACT(Performed 09/28/2023) * MICROALB/CREAT RATIO URINE RANDOM PANEL(Performed 09/28/2023) * VITAMIN D 25-HYDROXY(Performed 09/28/2023) * LIPID PROFILE(Performed 09/28/2023) * BASIC METABOLIC PANEL (CALCIUM TOTAL)(Performed 09/28/2023) * PROC UROFLOWMETRY(Performed 09/25/2023) Performed for Pain in both testicles * MO MSR PVR U&/BLADD CAPCTY US NON(Performed 09/25/2023) Performed for Pain in both testicles * URINALYSIS AUTO - POINT OF CARE (AMB) SLU(Performed 09/25/2023) Performed for Pain in both testicles * MO POLYSOM 6/>YRS CPAP 4/> PARM(Performed 09/02/2023) Performed [...] 07/03/2023) Performed for Coronary artery disease involving stebbins coronary artery of stebbins heart without angina pectoris * PROC IMPLANT WEAR CARDIAC DEVICE EVAL(Performed 07/03/2023) Performed for Cardiac pacemaker in situ * CT CHEST WO CONT AND HIRES(Performed 06/18/2023) Performed for Abnormal CT of the chest * COMPLETE PFT W/WO BRONCHODILATOR(Performed 06/18/2023) Performed for Dyspnea on exertion * MO PM/ICD REMOTE TECH SERV(Performed 05/23/2023) Performed for Cardiac pacemaker in situ * MO PM DEVICE INTERROGATE REMOTE(Performed 05/23/2023) Performed for Cardiac pacemaker in situ * PROC UROFLOWMETRY(Performed 05/21/2023) Performed for S/P TURP * MO MSR PVR U&/BLADD CAPCTY US NON(Performed 05/21/2023) Performed for S/P TURP * URINALYSIS AUTO - POINT OF CARE (AMB) SLU(Performed 05/21/2023) Performed for S/P TURP * HEMOGLOBIN A1C - POINT OF CARE (AMB) SLU(Performed 04/02/2023) Performed for Type 2 diabetes mellitus without complication, unspecified whether terminal gauger supervisor insulin use ([facility]) * CARDIAC PROCEDURE ORDER(Performed 04/02/2023) * MO PM DEVICE INTERROGATE REMOTE(Performed 01/31/2023) Performed for SSS (sick sinus syndrome) ([facility]), Cardiac pacemaker in situ * MO PM/ICD REMOTE TECH SERV(Performed 01/31/2023) Performed for SSS (sick sinus syndrome) ([facility]), Cardiac pacemaker in situ * MO CYSTOURETHROSCOPY(Performed 01/15/2023) Performed for Urine stream spraying, Painful urination * MO MSR PVR U&/BLADD CAPCTY US NON(Performed 01/15/2023) Performed for Pain in testicle, unspecified laterality * MO ELECTRO-UROFLOWMETRY, FIRST(Performed 01/15/2023) Performed for Pain in testicle, unspecified laterality * CT ABDOMEN PELVIS WWO CONTRAST(Performed 01/15/2023) Performed for Pain in testicle, unspecified laterality, Painful urination, Urine stream spraying, S/P TURP * CREATININE - POCT INTERFACED(Performed 01/15/2023) * LIPID PROFILE(Performed 01/13/2023) * CARDIAC PROCEDURE ORDER(Performed 01/06/2023) * MO PM DEVICE PROGR EVAL SNGL(Performed 01/01/2023) Performed for SSS (sick sinus syndrome) ([facility]) * PERIPHERAL NEUROPATHY PANEL(Performed 12/30/2022) Performed for Neuropathy * CARDIAC PROCEDURE ORDER(Performed 12/18/2022) * MO INJECT NERV BLCK,ILIOINGU/ILIOHYP(Performed 11/26/2022) Performed for Pain in testicle, unspecified laterality * URINALYSIS AUTO - POINT OF CARE (AMB) SLU(Performed 10/29/2022) Performed for Urinary frequency * PATHOLOGY/CYTOLOGY REPORT ORDER(Performed 10/29/2022) * URINALYSIS AUTO - POINT OF CARE (AMB) SLU(Performed 10/07/2022) Performed for Pain in testicle, unspecified laterality * MO BLDR INSTLJ ANTICARCINOGENIC AGT(Performed 10/01/2022) Performed for Urinary frequency, Dysuria * LAB RESULTS ORDER(Performed 10/01/2022) * HEMOGLOBIN A1C - POINT OF CARE (AMB) SLU(Performed 09/29/2022) Performed for Type 2 diabetes mellitus with other circulatory complication, with long-term current use of insulin ([facility]) * MO IRRIGATION OF BLADDER(Performed 09/17/2022) Performed for Painful urination * MO PM/ICD REMOTE TECH SERV(Performed 08/19/2022) Performed for SSS (sick sinus syndrome) ([facility]), Cardiac pacemaker in situ * MO PM DEVICE INTERROGATE REMOTE(Performed 08/19/2022) Performed for SSS (sick sinus syndrome) ([facility]), Cardiac pacemaker in situ * CARDIAC PROCEDURE ORDER(Performed 08/15/2022) * HEMOGLOBIN A1C - POINT OF CARE (AMB) SLU(Performed 05/19/2022) Performed for Type 2 diabetes mellitus without complication, unspecified whether fci insulin use ([facility]) * OPH OCT TEST SLU(Performed 04/15/2022) Performed for Diabetes mellitus without ophthalmic manifestations ([facility]) * CARDIAC PROCEDURE ORDER(Performed 03/04/2022) * PHOSPHORUS [...] URINE CULTURE (EXTERNAL RESULT ENTRY)(Performed 12/26/2021) * MO EXC SKIN BENIG 1.1-2CM FACE,FACIAL(Performed 12/16/2021) Performed for Neoplasm of uncertain behavior of skin * MO INTMD WND REPAIR FACE,FACIAL <2.5CM(Performed 12/16/2021) Performed for Neoplasm of uncertain behavior of skin * MO DESTR MALIG TRUNK,EXTREM 1.1-2 CM(Performed 12/16/2021) 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 * DERMATOPATHOLOGY(Performed 11/28/2021) Performed for Neoplasm of uncertain behavior of skin * HEMOGLOBIN A1C - POINT OF CARE (AMB) SLU(Performed 11/19/2021) Performed for Type 2 diabetes mellitus without complication, unspecified whether terminal gauger supervisor insulin use ([facility]) * URINALYSIS AUTO - POINT OF CARE (AMB) SLU(Performed 11/08/2021) Performed for Dysuria * CARDIAC PROCEDURE ORDER(Performed 10/10/2021) * LAB RESULTS ORDER(Performed 10/09/2021) * PROC IMPLANT WEAR CARDIAC DEVICE EVAL(Performed 10/07/2021) Performed for SSS (sick sinus syndrome) ([facility]) * LAB RESULTS ORDER(Performed 09/27/2021) * LAB RESULTS ORDER(Performed 09/27/2021) * MO TANGNTL BX SKIN SINGLE LES(Performed 09/13/2021) Performed for Neoplasm of uncertain behavior of skin * MO TANGNTL BX SKIN EA SEP ADDL(Performed 09/13/2021) Performed for Neoplasm of uncertain behavior of skin * MO TANGNTL BX SKIN EA SEP ADDL(Performed 09/13/2021) [...] 05/23/2021) * LAB RESULTS ORDER(Performed 03/11/2021) * MO CYSTOURETHROSCOPY(Performed 03/10/2021) Performed for Dysuria, Urine stream [...] 07/10/2020) * MAGNESIUM BLOOD(Performed 07/10/2020) * PT-INR [facility](Performed 07/10/2020) * COMPREHENSIVE METABOLIC PANEL(Performed 07/10/2020) * [...] ONLY REFLEX TO CULTURE (09/01/2024 11:37 AM CONVERSION MAN) Only the most recent of2 resultswithin the time period is included. Reflex Status Culture not indicated 09/01/2024 12:36 PM CONVERSION MAN [facility] WBC UA 0-5 None Seen, 0-5 /HPF 09/01/2024 12:36 PM CONVERSION MAN [facility] Squamous Epithelial Cells UA 0-2 None Seen, 0-2, 3-5 /HPF 09/01/2024 12:36 PM [facility] Mucus UA 1+ /LPF 09/01/2024 12:36 PM [facility] Hyaline Casts UA 3-5(A) None Seen, 0-2 /LPF 09/01/2024 12:36 PM [facility] Urine URINE SPECIMEN OBTAINED BY CLEAN CATCH PROCEDURE / Unknown Collection / Unknown 09/01/2024 11:37 AM CONVERSION MAN 09/01/2024 12:05 PM CONVERSION MAN [facility] - 09/01/2024 12:36 PM CONVERSION MAN Nataliia Cooper MD LAB - URINALYSIS ORD ERABLES [facility] [address] [place] [phone], [facility] [phone] * (ABNORMAL) URINALYSIS REFLEX MICROSCOPIC REFLEX CULTURE (09/01/2024 11:37 AM CONVERSION MAN) Only the most recent of2 resultswithin the time period is included. Color UA Yellow Straw, Yellow 09/01/2024 12:13 PM [facility] Clarity UA Slt Cloudy(A) Clear 09/01/2024 12:13 PM [facility] Specific Randall UA 1.026 1.005 - 1.030 09/01/2024 12:13 PM [facility] pH UA 5.0 5.0 - 8.0 pH 09/01/2024 12:13 PM [facility] Protein UA 2+(A) Negative 09/01/2024 12:13 PM [facility] Glucose UA 3+(A) Negative 09/01/2024 12:13 PM [facility] Ketone UA Negative Negative 09/01/2024 12:13 PM [facility] Bilirubin UA Negative Negative 09/01/2024 12:13 PM [facility] Blood UA Negative Negative 09/01/2024 12:13 PM [facility] Nitrite UA Negative Negative 09/01/2024 12:13 PM [facility] Leukocyte Esterase Negative Negative 09/01/2024 12:13 PM [facility] Urobilinogen UA Negative Negative mg/dL 09/01/2024 12:13 PM [facility] Urine URINE SPECIMEN OBTAINED BY CLEAN CATCH PROCEDURE / Unknown Collection / Unknown 09/01/2024 11:37 AM CONVERSION MAN 09/01/2024 12:05 PM CONVERSION MAN Narrative [facility] - 09/01/2024 12:13 PM CONVERSION MAN Nataliia Cooper MD LAB - URINALYSIS ORD ERABLES Performing Organization Address City/[facility]/ZIP Co de Phone Number [facility] [address] [place] [address], [place] [phone] * (ABNORMAL) MICROALB/CREAT RATIO URINE RANDOM PANEL (09/01/2024 11:37 AM CONVERSION MAN) Only the most recent of3 resultswithin the time period is included. Albumin Random Urine 755.4 Not Established ug/mL 09/01/2024 12:59 PM [facility] Comment:Result obtained by julio barrett. Creatinine Urine 161.04 Not Established mg/dL 09/01/2024 12:59 PM [facility] Urine Albumin/Creati nine Ratio 469(H) <30 mg/g 09/01/2024 12:59 PM [facility] Urine URINE SPECIMEN OBTAINED BY CLEAN CATCH PROCEDURE / Unknown Collection / Unknown 09/01/2024 11:37 AM CONVERSION MAN 09/01/2024 12:10 PM CONVERSION MAN Nataliia Cooper MD LAB - URINE CHEMISTR Y ORDERABLES Performing Organization Address [facility]/ZIP Co de Phone Number [address] [address], [place] [phone] * (ABNORMAL) PTH INTACT W/O CALCIUM (09/01/2024 11:07 AM CONVERSION MAN) Only the most recent of2 resultswithin the time period is included. PTH Intact 203.7(H) 8.0 - 77.0 pg/mL 09/01/2024 12:15 PM [facility] Blood BLOOD SPECIMEN / Unknown Lab Venipuncture / Unknown 09/01/2024 11:07 AM CONVERSION MAN 09/01/2024 11:42 AM CONVERSION MAN Nataliia Cooper MD LAB - CHEMISTRY SERENA PAGE Performing Organization Address City/[facility]/ZIP Co de Phone Number [facility] [address] [place] [phone], [facility] [phone] * (ABNORMAL) URIC ACID BLOOD (09/01/2024 11:07 AM CONVERSION MAN) Only the most recent of2 resultswithin the time period is included. Uric Acid 7.3(H) 3.5 - 7.2 mg/dL 09/01/2024 12:14 PM [facility] Blood BLOOD SPECIMEN / Unknown Lab Venipuncture / Unknown 09/01/2024 11:07 AM CONVERSION MAN 09/01/2024 11:42 AM CONVERSION MAN Nataliia Cooper MD LAB - CHEMISTRY SERENA PAGE Performing Organization Address [facility]/ZIP Co de Phone Number [address] [address], [facility] [phone] * (ABNORMAL) HEMOGLOBIN A1C (09/01/2024 11:07 AM CONVERSION MAN) Only the most recent of5 resultswithin the time period is included. Hemoglobin A1c 7.7(H) <=5.6 % 09/01/2024 1:10 PM [facility] Estimated Average Glucose 174 mg/dL 09/01/2024 1:10 PM [facility] Comment: HbA1c Interpretation: Normal : < 5.7% Pre-diabetes: 5.7-6.4% Diabetes: Equal to or greater than 6.5% Test results diagnostic of diabetes should be repeated for confirmation. Treatment target values recommended by ADA and other clinical organizations should be used to evaluate metabolic control in patients. Reference: [place] [employer], Standards of Care in Diabetes -2020 In patients 70 years and older consider HbA1c target range of 7.0-7.5% (Reference: Vickey Moser et al. JAMDA. 2012) The Sebia assay for the measurement of HbA1c is a National Glycohemoglobin Standardization Program (NGSP) certified method. Blood BLOOD SPECIMEN / Unknown Lab Venipuncture / Unknown 09/01/2024 11:07 AM CONVERSION MAN 09/01/2024 11:42 AM CONVERSION MAN Nataliia Cooper MD LAB - CHEMISTRY SERENA PAGE Performing Organization Address City/[facility]/ZIP Co de Phone Number [facility] [address] [place] [address], [facility] [phone] * VITAMIN D 25-HYDROXY (09/01/2024 11:07 AM CONVERSION MAN) Only the most recent of3 resultswithin the time period is included. Vitamin D, 25 Hydroxy 43.2 30.0 - 80.0 ng/mL 09/01/2024 12:32 PM CONVERSION MAN [facility] Comment: The recommendations for 25-Hydroxy Vitamin [...] Lab Venipuncture / Unknown 09/01/2024 11:07 AM CONVERSION MAN 09/01/2024 11:42 AM CONVERSION MAN Nataliia Cooper MD LAB - CHEMISTRY SERENA PAGE Performing Organization Address City/[facility]/ZIP Co de Phone Number [facility] [address] [place] [phone], [facility] [phone] * (ABNORMAL) CBC WITH DIFFERENTIAL (09/01/2024 11:07 AM CONVERSION MAN) Only the most recent of3 resultswithin the time period is included. WBC 11.8(H) 4.0 - 10.7 x10E9/L 09/01/2024 11:56 AM [facility] RBC Count 4.20(L) 4.30 - 5.80 x10E12/L 09/01/2024 11:56 AM [facility] Hemoglobin 14.7 13.3 - 17.5 g/dL 09/01/2024 11:56 AM [facility] Hematocrit 44.0 38.7 - 51.1 % 09/01/2024 11:56 AM [facility] MCV 104.8(H) 80.0 - 98.0 fL 09/01/2024 11:56 AM [facility] MCH 35.0(H) 26.7 - 33.6 pg 09/01/2024 11:56 AM [facility] MCHC 33.4 31.7 - 36.3 g/dL 09/01/2024 11:56 AM [facility] RDW-CV 14.6 11.3 - 14.8 % 09/01/2024 11:56 AM [facility] Platelet Count 285 150 - 420 x10E9/L 09/01/2024 11:56 AM [facility] MPV 10.3 7.8 - 11.4 fL 09/01/2024 11:56 AM [facility] Neutrophil % 49.1 41.0 - 74.0 % 09/01/2024 11:56 AM [facility] Lymphocyte % 38.5 17.0 - 47.0 % 09/01/2024 11:56 AM [facility] Monocyte % 7.1 3.0 - 11.0 % 09/01/2024 11:56 AM [facility] Eosinophil % 4.0 0.0 - 7.0 % 09/01/2024 11:56 AM [facility] Basophil % 0.8 0.0 - 1.6 % 09/01/2024 11:56 AM [facility] Immature Granulocytes % 0.5 0.0 - 1.0 % 09/01/2024 11:56 AM [facility] Neutrophil Absolute 5.82 1.60 - 7.50 x10E9/L 09/01/2024 11:56 AM [facility] Lymphocyte Absolute 4.56(H) 1.00 - 4.40 x10E9/L 09/01/2024 11:56 AM [facility] Monocyte Absolute 0.84 0.15 - 1.00 x10E9/L 09/01/2024 11:56 AM [facility] Eosinophil Absolute 0.47 0.00 - 0.60 x10E9/L 09/01/2024 11:56 AM [facility] Basophil Absolute 0.09 0.00 - 0.13 x10E9/L 09/01/2024 11:56 AM [facility] Blood BLOOD SPECIMEN / Unknown Lab Venipuncture / Unknown 09/01/2024 11:07 AM CONVERSION MAN 09/01/2024 11:42 AM CONVERSION MAN Nataliia Cooper MD LAB - HEMATOLOGY ORD ERABLES [facility] [address] [place] [address], [facility] [phone] * (ABNORMAL) RENAL FUNCTION PANEL (09/01/2024 11:07 AM [facility] Only the most recent of2 resultswithin the time period is included. BUN 27(H) 7 - 26 mg/dL 09/01/2024 12:14 PM [facility] Creatinine 2.02(H) 0.71 - 1.16 mg/dL 09/01/2024 12:14 PM [facility] Sodium 141 136 - 145 mmol/L 09/01/2024 12:14 PM [facility] Potassium 4.6(H) 3.5 - 4.5 mmol/L 09/01/2024 12:14 PM [facility] Chloride 107 98 - 107 mmol/L 09/01/2024 12:14 PM [facility] CO2 27 22 - 29 mmol/L 09/01/2024 12:14 PM [facility] Glucose 154(H) 70 - 99 mg/dL 09/01/2024 12:14 PM [facility] Albumin 3.9 3.4 - 5.0 g/dL 09/01/2024 12:14 PM [facility] Calcium 11.3(H) 8.4 - 10.2 mg/dL 09/01/2024 12:14 PM [facility] Phosphorus 2.9 2.8 - 5.1 mg/dL 09/01/2024 12:14 PM [facility] Anion Gap 7 6 - 16 09/01/2024 12:14 PM [facility] BUN/Creatinine Ratio 13 7 - 23 09/01/2024 12:14 PM [facility] Osmolality Calculated 300(H) 275 - 295 mOsm/kg 09/01/2024 12:14 PM [facility] eGFR by CKD-EPI 36(L) >=90 mL/min/1.7 3 m2 09/01/2024 12:14 PM [facility] Blood BLOOD SPECIMEN / Unknown Lab Venipuncture / Unknown 09/01/2024 11:07 AM CONVERSION MAN 09/01/2024 11:42 AM CONVERSION MAN Nataliia Cooper MD LAB - CHEMISTRY ORDDominique PAGE [facility] Organization Address City/State/ZIP Co de Phone Number [facility] [address] [place] [address], [facility] [phone] * US Retroperitoneal Complete (09/01/2024 9:37 AM CONVERSION MAN) Anatomical Region Laterality Modality Abdomen Ultrasound 09/01/2024 9:45 AM CONVERSION MAN Impressions 09/01/2024 9:50 AM CONVERSION MAN Impression: 1. Normal-sized kidneys with normal echogenicity. 2. No hydronephrosis or nephrolithiasis. > Interpreting Provider: Denae Grijalva MD on 09/01/2024 9:50 AM Narrative 09/01/2024 9:50 AM CONVERSION MAN PROCEDURE: US RETROPERITONEAL COMPLETE DATE/TIME OF EXAM: [...] AM Nataliia Cooper MD US ORDERABLES * MO DESTR MALIG TRUNK,EXTREM 0.6-1 CM (08/26/2024 9:26 AM CONVERSION MAN) Narrative Robb Howell MD - 08/26/2024 9:26 AM CONVERSION MAN Amandeep Helton MD 08/26/2024 9:41 AM PROCEDURE: [...] tolerated the procedure well. Amandeep Helton MD [facility] Dermatology Resident Robb Howell MD PROCEDURE/MINOR SURG ICAL ORDERABLES * MO DESTR MALIG TRUNK,EXTREM 0.6-1 CM (08/17/2024 12:25 PM CONVERSION MAN) Narrative Robb Howell MD - 08/17/2024 12:25 PM CONVERSION MAN Guy Gómez MD 08/17/2024 12:26 PM PROCEDURE: [...] Howell MD PROCEDURE/MINOR SURG ICAL ORDERABLES * MO DESTROY PREMALIG LESION, 1ST LESION (08/17/2024 12:25 PM CONVERSION MAN) Narrative Robb Howell MD - 08/17/2024 12:25 PM CONVERSION MAN Guy Gómez MD 08/17/2024 12:25 PM Diagnosis and treatment options discussed. Cryotherapy (Liquid Nitrogen) to 1 lesion for 4-6 seconds. Number of cycles: 1. Wound care reviewed. Robb Howell MD PROCEDURE/MINOR SURG ICAL ORDERABLES * MO TANGNTL BX SKIN SINGLE LES (08/17/2024 12:24 PM CONVERSION MAN) Narrative Robb Howell MD - 08/17/2024 12:24 PM CONVERSION MAN Guy Góemz MD 08/17/2024 12:24 PM Risks, benefits and [...] ICAL ORDERABLES * DERMATOPATHOLOGY (08/17/2024 3:33 AM CONVERSION MAN) Only the most recent of4 resultswithin the time period is included. Case Report Dermatopathology Report Case: [id number] Authorizing Provider: Robb Howell MD Collected: 08/17/2024 03:33 AM Ordering Location: [facility] - Received: 08/18/2024 11:05 AM General Dermatology Pathologist: Rose Soto MD Specimen: Skin, left forearm 1:26 PM CONVERSION MAN DERMATOPATHOLOGY LABORATORY Final Diagnosis Specimen A. 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 The specimen consists of a shave biopsy measuring 97l87w6 mm. Jar 0. 1:26 PM [facility] Microscopic Description Specimen A. SKIN, left forearm: The epidermis shows parakeratosis, full thickness disorderly maturation of keratinocytes, mitoses at different levels, and dyskeratotic cells. 1:26 PM [facility] Disclaimer An external and internal positive and negative controls are appropriate for the histochemical, immunohistochemical and immunofluorescence stain(s) in this case (if any), except where stated explicitly. The performance characteristics of the stain(s) cited in this report were developed and its performance characteristic determined by the Dermatopathology Laboratory at [facility], directed by Dr. Barbara Becker. These tests need not be, and therefore are not, approved by the [place] Food and Drug Administration. The tests are used for clinical purposes. Billing Codes Specimen Charges Stain Charges 56983 1 1:26 PM [facility] D[facility] Embedded Images 1:26 PM [facility] D[facility] Pathology/Cytolo gy TISSUE SPECIMEN FROM SKIN / Unknown 08/17/2024 3:33 AM CONVERSION MAN 08/18/2024 11:05 AM CONVERSION MAN Robb Howell MD LAB - PATHOLOGY/CYTO LOGY ORDERABLES DERMATOPATHOLOGY LABORATORY [facility] Department of Dermatology [address], [address] Floor [address] [phone] * CARDIAC PROCEDURE ORDER (07/26/2024) Only the most recent of11 resultswithin the time period is included. Narrative 07/26/2024 Ordered by an unspecified provider. Scanned Document CARDIAC SERVICES ORD ERABLES * MO PM DEVICE PROGR EVAL DUAL (07/19/2024 8:47 AM CONVERSION MAN) Narrative Daily Bravo MD - 07/19/2024 8:47 AM CONVERSION MAN Daily Bravo MD 07/19/2024 8:49 AM This is a 64 year old male with a H/O sick sinus syndrome . The patient received a Medtronic Advisa DR dual chamber pacemaker on 09/23/16. The patients device is functioning appropriately according to the radio director's recommendations with appropriate battery voltage, charge time, shock impedance (s), lead impedance (s) along with pacing and sensing thresholds. The patient will be scheduled for 3 month remote follow-up. Instructed to call with questions or problem. Daily Bravo MD PROCEDURE/MINOR SURG ICAL ORDERABLES * EKG 12-LEAD (07/19/2024 8:11 AM CONVERSION MAN) Only the most recent of2 resultswithin the time period is included. Ventricular Rate 71 BPM [facility] Atrial Rate 71 BPM [facility] P-R Interval 244 ms [facility] QRS Duration ms 194 ms [facility] Q-T Interval ms 446 ms [facility] QTC Calculation (Bezet) 484 ms [facility] Calculated R [place] -85 degrees [facility] Calculated T [place] 34 degrees [facility] Interpretation EKG [...] 1:27:54 PM [facility] M[facility] 07/19/2024 8:11 AM CONVERSION MAN 07/19/2024 1:27 PM CONVERSION MAN Daily Bravo MD ECG ORDERABLES [facility] * CT LUNG CANCER SCREEN LOW DOSE (06/14/2024 1:47 PM CONVERSION MAN) Anatomical Region Laterality Modality Chest Computed Tomogra phy 06/14/2024 3:19 PM CONVERSION MAN Impressions 06/14/2024 8:13 PM CONVERSION MAN Impression: No pulmonary nodules identified. Lung-RADS category [...] Cancer. > Dictated by Naz Roblero MD, (ceo and president). I, Ruel Whitehead MD have personally reviewed and interpreted this examination/study. > Interpreting Provider: Ruel Whitehead MD on 06/14/2024 8:13 PM Narrative 06/14/2024 8:13 PM CONVERSION MAN PROCEDURE: CT LUNG SCREEN LOW DOSE DATE/TIME [...] Cancer. > Dictated by Naz Roblero MD, (ceo and president). IRuel MD have personally reviewed and interpreted this examination/study. > Interpreting Provider: Ruel Whitehead MD on 06/14/2024 8:13 PM Becca Ford MD CT ORDERABLES * MO PM DEVICE INTERROGATE REMOTE, MO PM/ICD REMOTE TECH SERV (06/04/2024 5:04 PM [...] ORDERABLES * BONE DENSITY AXIAL SKELETON(1OR MORE SITES)[id number] (04/21/2024 1:06 PM CDT) Anatomical Region Laterality [...] and below > Dictated by Helen Murray (Afternoon Nanny) 04/21/2024 1:26 PM Jase Zhao DO have [...] and below > Dictated by Helen Murray (Afternoon Nanny) 04/21/2024 1:26 PM I, Jase Dante, DO [...] Davila DO PROCEDURE/MINOR CARABALLO RGICAL ORDERABLES * MO MSR PVR U&/BLADD CAPCTY US NON (02/25/2024 [...] - [facility] [address] Specific Randall UA 1.[address] [facility] [address] Blood [...] ANNIE [address] [place] [address], [facility] [phone] * MO TANGNTL BX SKIN SINGLE LES (01/29/2024 9:43 [...] message if not available. Jodee Jimenez MD [facility] Dermatology Resident, PGY3 Robb Howell MD PROCEDURE/MINOR SURG ICAL ORDERABLES * MO DESTROY PREMALIG LESION, 1ST LESION, MO DESTROY PREMALIG LESION, 2-14 (01/29/2024 9:43 AM CDT) Narrative Robb Howell MD - 01/29/2024 9:43 AM CDT Jodee Jimenez MD 01/29/2024 9:43 AM Diagnosis and treatment options discussed. Cryotherapy (Liquid Nitrogen) to 4 lesions (right ear, left cheek, left forearm, nasal dorsum) for 4-6 seconds each. Number of cycles: 1. Wound care reviewed. Jodee Jimenez MD [facility] Dermatology Resident, PGY3 Robb Howell MD PROCEDURE/MINOR SURG ICAL ORDERABLES * MO PM DEVICE PROGR EVAL DUAL (01/12/2024 9:59 AM CDT) Narrative Daily Bravo MD - 01/12/2024 9:59 AM CDT Daily Bravo MD 01/12/2024 10:01 AM This is a 64 year old male with a H/O SSS. The patient received a Medtronic Advisa DR The patients device is functioning appropriately according to the radio director's recommendations with appropriate battery voltage, charge time, shock impedance (s), lead impedance (s) along with pacing and sensing thresholds. The patient will be scheduled for 3 month follow-up. Instructed to call with questions or problem. Daily Bravo MD PROCEDURE/MINOR SURG ICAL ORDERABLES * (ABNORMAL) PTH INTACT (09/28/2023 9:09 AM CONVERSION MAN) PTH Intact 104(H) 15 - 65 pg/mL [facility] INS[facility]ANCE BILL Comment:FASTING 09/28/2023 9:09 AM CONVERSION MAN 09/28/2023 Narrative Resulting Agency Comment [facility] [address] [facility] [phone] Garry Tracey MD LAB - CHEMISTRY SERENA PAGE [facility] INSURANCE BILL [address] [place] [address] * PTH RELATED PEPTIDE (09/28/2023 9:09 AM CONVERSION MAN) PTH Related Peptide <2.0 pmol/L [facility] INSURANCE BILL Comment: This test was developed and its performance characteristics determined by [facility]. It has not been cleared or approved [...] contact the laboratory. FASTING 09/28/2023 9:09 AM CONVERSION MAN 09/28/2023 Narrative [facility] INSURANCE BILL - 10/03/2023 7:10 AM CONVERSION MAN A courtesy copy of this report has been sent to [phone] Resulting Agency Comment Lab Testing performed at: [facility] [address] [place] [address] [phone] Garry Tracey MD LAB - CHEMISTRY SERENA PAGE Performing Organization Address City/[facility]/ZIP Co de Phone Number [facility] INSURANCE BILL [address] [place] [address] * VITAMIN D 1,25 DIHYDROXY (09/28/2023 9:09 AM CONVERSION MAN) Pathologist [facility] Calcitriol (1,25 di-[place] Vit D) 44.9 24.8 - 81.5 pg/mL [facility] INSURANCE BILL Comment:FASTING 09/28/2023 9:09 AM CONVERSION MAN 09/28/2023 Narrative Resulting Agency Comment Lab Testing performed at: [facility] [phone] Garry Tracey MD LAB - CHEMISTRY SERENA PAGE Performing Organization Address City/[facility]/ZIP Co de Phone Number [facility] INSURANCE BILL [address] [place] [address] * (ABNORMAL) BASIC METABOLIC PANEL (CALCIUM TOTAL) (09/28/2023 9:09 AM CONVERSION MAN) Glucose 169(H) 70 - 99 mg/dL [facility] [...] [facility] INSURANCE BILL Comment:FASTING 09/28/2023 9:09 AM CONVERSION MAN 09/28/2023 Narrative Resulting Agency Comment Lab Testing performed at: [facility] [address] [facility] [phone] Garry Tracey MD LAB - CHEMISTRY SERENA PAGE Performing Organization Address [facility] Co de Phone Number [facility] INSURANCE BILL [address] [place] [address] * (ABNORMAL) LIPID PROFILE (09/28/2023 9:09 AM CONVERSION MAN) Only the most recent of4 resultswithin the [...] obtained for this observation. 09/28/2023 9:09 AM CONVERSION MAN 09/28/2023 Narrative Resulting Agency Comment Lab Testing performed at: [email or web address] [address] [facility] [phone] Garry Tracey MD LAB - CHEMISTRY SERENA PAGE Performing Organization Address [facility] Co de Phone Number [facility] INSURANCE BILL [address] [place] [address] * PROC UROFLOWMETRY (09/25/2023 10:58 AM CONVERSION MAN) Narrative Santiago Rodgers MA - 09/25/2023 10:58 AM CONVERSION MAN Santiago Rodgers MA 10/02/2023 7:37 AM Voiding time: 34.3s Flow time: 33.6s Time to peakflow: 12.5s Peak flowrate: 14.2ml/s Average flowrate: 6.7ml/s Intervals:2 Voided volume: 226ml Josy Davila DO PROCEDURE/MINOR CARABALLO RGICAL ORDERABLES * MO MSR PVR U&/BLADD CAPCTY US NON (09/25/2023 10:58 AM CONVERSION MAN) Santiago Tesfaye MA - 09/25/2023 10:58 AM CONVERSION MAN Santiago Rodgers MA 10/02/2023 7:37 AM [id number] Josy Davila DO PROCEDURE/MINOR CARABALLO RGICAL ORDERABLES * MO POLYSOM 6/>YRS CPAP 4/> PARM (09/02/2023 10:01 AM CONVERSION MAN) Marcelo Tucker MD - 09/02/2023 10:01 AM CONVERSION MAN Marcelo Lim MD 09/02/2023 10:02 AM [facility] Accredited by the [place] [employer] [facility], First Floor [address] [place] [address] Telephone : [phone] Medical Records Patient Name: Basilio Riley : 1960 Date of Study: 09/01/2023 Referring Physician: Dina Cloud PA-C Type of Montage: Respiratory Scoring System: [facility] SPLIT NIGHT POLYSOMNOGRAM INTERPRETATION 09/01/2023 Procedure: The polysomnogram was performed with a histology technologist in attendance. Frontal, central, and temporal [...] daily, Disp: , Rfl: Continuous Blood Gluc Regulated Program Manager (Dexcom G7 Regulated Program Manager) SHANE, Use 1 kit as directed, Disp: 1 Each, Rfl: 0 Continuous Blood Gluc Sensor (Dexcom G7 Sensor) [facility], Use 1 Each every 10 days, Disp: [...] 4 vitamin D, ergocalciferol, (DRISDOL) 1.25 MG (41894 UT) capsule, Take 1 (one) capsule by [...] total diagnostic sleep time. Snoring Profile: Frequent, [id number] snoring was detected during this study. Periodic [...] dental evaluation for bruxism Marcelo Lim MD, [facility], [facility], [facility] Cereal Maker, [facility] Professor of Internal Medicine Adjunct Fuse Assembler of Neurology Division of Pulmonary, Critical Care, and Sleep Medicine [facility] This note was electronically signed on 09/02/2023. Amie Payne APNP-TURRET LATHE TENDER PROCEDUR E/MINOR SURGICAL ORDERABLES * ECHO COMPLETE (07/03/2023 10:51 AM CONVERSION MAN) BSA [id number] m2 [facility] CV FUJ I PACS LV [...] F UJI PACS IVS/LVPW 1.168 [facility] CV [facility] I PACS LV mass 2D 288.551 96 [...] LA vol BP 36.449 mL [facility] CV [facility] I PACS LVOT pk andrei 1.00 m/s [...] [facility] CV FU JI PACS AV mn anrdei 0.94 m/s [facility] CV FUJ I PACS [...] Index 16 ml/m2 [facility] CV FUJI PACS [id number] 6.965 cm [facility] CV FUJ I PACS [id number] 6.988 cm [facility] CV FUJ I PACS Prox Asc Ao Diameter Index 1.611 cm [facility] CV FUJI PACS LA Size 4.013 cm [facility] CV FUJ I PACS LVIDs index 1.10 1.3 - 2.1 cm/m2 [facility] CV FUJI PACS LV LVIDd index 1.60 2.2 - 3.0 cm/m2 [facility] CV FUJI PACS Anatomical Region Laterality Modality Ultrasound Narrative 07/03/2023 12:39 PM CONVERSION MAN Left Ventricle: Left ventricle size is normal. [...] Implant Device Check (Office) (07/03/2023 10:43 AM CONVERSION MAN) Narrative RobertMorris, ESTHER-TURRET LATHE TENDER - 07/03/2023 10:43 AM CONVERSION MAN RobertMorris APRN-ROBIN 07/03/2023 10:48 AM Basilio Riley [...] hesitate to contact me. Morris Lara Jones APRN-TURRET LATHE TENDER PROCEDURE/ID NOR SURGICAL ORDERABLES * CT CHEST WO CONT AND HIRES (06/18/2023 12:21 PM CONVERSION MAN) Anatomical Region Laterality Modality Chest Computed Tomogra phy 06/18/2023 3:54 PM CONVERSION MAN Impressions 06/18/2023 11:48 PM CONVERSION MAN Impression: 1.Mild peripheral groundglass in both lungs predominantly in the lower lobes could represent desquamative interstitial pneumonia. No reticulations or bronchiectasis. No air trapping. > Dictated by Janet Mills DO (ceo and president). I, Perico Fermin MD have personally reviewed and interpreted this examination/study. > Interpreting Provider: Perico Fermin MD on 06/18/2023 11:48 PM Narrative 06/18/2023 11:48 PM CONVERSION MAN PROCEDURE: CT CHEST WO CONT AND HIRES, DATE/TIME OF EXAM: 06/18/2023 12:23 PM, LOCATION [facility] INDICATION: R93.89: Abnormal CT of the chest [...] DATE/TIME OF EXAM: 06/18/2023 12:23 PM, LOCATION [facility] INDICATION: R93.89: Abnormal CT of the chest [...] trapping. > Dictated by Janet Mills DO (ceo and president). I, Perico Fermin MD have personally reviewed and interpreted this examination/study. > Interpreting Provider: Perico Fermin MD on 06/18/2023 11:48 PM [address] MD [address] ORDERABLES * Complete PFT w/wo Bronchodilator [facility] PFT Lab (06/18/2023 11:59 AM CONVERSION MAN) Impressions Argenis Sadler MD - 06/18/2023 11:59 AM CONVERSION MAN [facility] DEPARTMENT OF PULMONARY, CRITICAL CARE, AND SLEEP [...] of Pulmonary, Critical Care and Sleep Medicine [facility] I have personally reviewed pulmonary function test data and finding. I concur with fellow's note. MD Kiara Aldana Setu K, MD - 06/18/2023 11:59 AM CONVERSION MAN Hay Amezquita MD 06/19/2023 4:10 PM Becca Ford MD RESPIRATORY THERAPY ORDERABLES * MO PM DEVICE INTERROGATE REMOTE, MO PM/ICD REMOTE TECH SERV (05/23/2023 6:27 PM [...] Davila DO PROCEDURE/MINOR CARABALLO RGICAL ORDERABLES * MO MSR PVR U&/BLADD CAPCTY US NON (05/21/2023 [...] is included. Hemoglobin A1c POCT 7.4 % [address] BLOOD SPECIMEN / Unknown 04/02/2023 9:16 AM CDT Garry Tracey MD LAB - POINT OF CARE ORDERABLES [address] [place] [address], [facility] [phone] * MO PM/ICD REMOTE TECH SERV, MO PM DEVICE INTERROGATE REMOTE (01/31/2023 12:45 AM CDT) Narrative Chari Parada MD - 01/31/2023 12:45 AM CDT Chari Parada MD 01/31/2023 12:52 AM Basilio Riley underwent remote monitoring for his PPM. Interrogation was performed with results as follows: Device: Medtronic PPM Mode: AAI-DDD Battery: 2.98 Volts; Estimated longevity 4.5 years Percent Paced: Total RANCH SUPERVISOR 0.1% (MVP On) -VS 99.9% -RANCH SUPERVISOR < 0.1% AP-VS < 0.1% AP-RANCH SUPERVISOR < 0.1% Sensing: P-waves 3.8 mV; R-waves [...] hesitate to contact me. Chari Parada MD PROCEDURE/ID NOR SURGICAL ORDERABLES * MO CYSTOURETHROSCOPY (01/15/2023 4:28 PM CDT) Narrative LolaJosy [...] Davila DO PROCEDURE/MINOR CARABALLO RGICAL ORDERABLES * MO MSR PVR U&/BLADD CAPCTY US NON (01/15/2023 12:18 PM CDT) Josy Almaguer, DO - 01/15/2023 12:18 PM CDT Catalina Naranjo LPN 01/15/2023 12:19 PM PVR = 13 mL Josy Davila DO PROCEDURE/MINOR CARABALLO RGICAL ORDERABLES * MO ELECTRO-UROFLOWMETRY, FIRST (01/15/2023 12:13 PM CDT) Josy [...] DATE/TIME OF EXAM: 01/15/2023 8:41 AM, LOCATION [facility] INDICATION: N50.819: Testicular pain, unspecified [...] CONTRAST, DATE/TIME OF EXAM:01/15/2023 8:41 AM, LOCATION [facility] INDICATION: N50.819: Testicular pain, unspecified [...] mL/min/1.7 3 m2 01/15/2023 8:27 AM CDT [facility] Blood BLOOD SPECIMEN / Unknown 01/15/2023 8:17 AM CDT 01/15/2023 8:[address] [facility] Lola DO LAB - POINT OF CAR E ORDERABLES [facility] [address] [place] [address] * MO PM DEVICE PROGR EVAL SNGL (01/01/2023 9:48 [...] PERIPHERAL NEUROPATHY PANEL (12/30/2022 2:45 PM CDT) [facility] Signature Peripheral Neuropathy Panel See Scanned Report 01/25/2023 10:36 AM CDT [facility] LAB Blood BLOOD SPECIMEN / Unknown Lab Venipuncture / Unknown 12/30/2022 2:45 PM CDT 12/30/2022 3:13 PM CDT Meredith Weiss MD LAB - SEROLOGY ORDER YADIRA [facility] [phone] * MO INJECT NERV BLCK,ILIOINGU/ILIOHYP (11/26/2022 10:32 AM CDT) Narrative Josy Davila DO - 11/26/2022 10:32 AM CDT Josy Davila DO 11/26/2022 10:47 AM DOS: 11/26/2022 Procedure: spermatic cord block, illiohypogastric nerve block [id number]- [id number] The left testicle was tender to palpation. The cord was mildly tender. The scrotal skin was prepped with alcohol. 5cc of lidocaine 1% mixed with marcaine 0.25% was used to infiltrate the spermatic cord on both sides. Patient tolerated well. Josy Davila DO 11/26/2022 10:32 AM Josy Davila DO PROCEDURE/MINOR CARABALLO RGICAL ORDERABLES * PATHOLOGY/CYTOLOGY REPORT ORDER (10/29/2022) Only the most recent of2 resultswithin the time period is included. 10/29/2022 Narrative 10/29/2022 Ordered by an unspecified provider. Scanned Document LAB - PATHOLOGY/CYTO LOGY ORDERABLES * MO BLDR INSTLJ ANTICARCINOGENIC AGT (10/01/2022 10:32 AM CONVERSION MAN) Narrative Josy Davila DO - 10/01/2022 10:32 AM CONVERSION MAN Josy Davila DO 10/01/2022 10:34 AM DOS: [...] Davila DO PROCEDURE/MINOR CARABALLO RGICAL ORDERABLES * MO IRRIGATION OF BLADDER (09/17/2022 11:07 AM CONVERSION MAN) Josy Almaguer DO - 09/17/2022 11:07 AM CONVERSION MAN Josy Davila DO 09/17/2022 11:24 AM DOS: [...] Davila DO PROCEDURE/MINOR CARABALLO RGICAL ORDERABLES * MO PM DEVICE INTERROGATE REMOTE, MO PM/ICD REMOTE TECH SERV (08/19/2022 4:36 PM CONVERSION MAN) Narrative Reid Da Silva MD - 08/19/2022 4:36 PM CONVERSION MAN Reid Da Silva MD 08/19/2022 4:40 PM [...] URINE CULTURE (EXTERNAL RESULT ENTRY) (12/26/2021) Pathologist [facility] Urine Culture (EXTERNAL) none Urine URINE / Unknown 12/26/2021 Historical Provider LAB - MICROBIOLOG Y ORDERABLES * URINALYSIS (EXTERNAL RESULT ENTRY) (12/26/2021) Pathologist [facility] pH UA (EXTERNAL RESULT) 5.5 Specific Randall Urine (EXTERNAL RESULT) 1.028 Protein UA (EXTERNAL RESULT) 1+ Blood UA (EXTERNAL RESULT) Negative Nitrite UA (EXTERNAL RESULT) Negative RBC UA (EXTERNAL RESULT) none /HPF WBC UA (EXTERNAL RESULT) 0-5 /HPF Leukocyte Esterase (EXTERNAL RESULT) Bacteria UA (EXTERNAL RESULT) none Urine URINE / Unknown 12/26/2021 Historical Provider LAB - CHEMISTRY O RDERABLES * CREATININE RAND UR (EXTERNAL RESULT ENTRY) (12/26/2021) Pathologist [facility] Creatinine Random Urine (EXTERNAL RESULT) 113.4 mg/dl Urine URINE / Unknown 12/26/2021 Historical Provider LAB - CHEMISTRY O RDERABLES * PTH (EXTERNAL RESULT ENTRY) (12/26/2021) Pathologist [facility] PTH Intact (EXTERNAL RESULT) 78 pg/ml Blood BLOOD SPECIMEN / Unknown 12/26/2021 Historical Provider LAB - CHEMISTRY O RDERABLES * VITAMIN D HYDROXY (EXTERNAL RESULT) (12/26/2021) Pathologist [facility] Vitamin D Hydroxy (External Result) 36.1 Blood 12/26/2021 Historical Provider LAB - CHEMISTRY O RDERABLES * COMP MET PANEL (EXTERNAL RESULT ENTRY) (12/26/2021) Pathologist [facility] Glucose (EXTERNAL) 273 mg/dL Sodium (EXTERNAL RESULT) [...] LIPID PROFILE (EXTERAL RESULT ENTRY) (12/26/2021) Pathologist [facility] Cholesterol (EXTERNAL RESULT) 90 mg/dL Triglycerides (EXTERNAL RESULT) 611 mg/dL HDL (EXTERNAL RESULT) 23 mg/dL LDL (EXTERNAL RESULT) unable to calculate mg/dL VLDL (EXTERNAL RESULT) unable to calculate mg/dL Chol HDL Ratio (External Result) Blood BLOOD SPECIMEN / Unknown 12/26/2021 Historical Provider LAB - CHEMISTRY O RDERABLES * HEMOGLOBIN A1C (EXTERNAL RESULT ENTRY) (12/26/2021) Pathologist [facility] Hemoglobin A1c (EXTERNAL RESULT) 9.0 % Blood BLOOD SPECIMEN / Unknown 12/26/2021 Historical Provider MD LAB - CHEMISTRY O RDERABLES * MO INTMD WND REPAIR FACE,FACIAL <2.5CM, MO EXC SKIN BENIG 1.1-2CM FACE,FACIAL (12/16/2021 6:43 [...] Howell MD PROCEDURE/MINOR SURG ICAL ORDERABLES * MO DESTR MALIG TRUNK,EXTREM 1.1-2 CM (12/16/2021 6:42 [...] Implant Device Check (Office) (10/07/2021 12:28 PM CONVERSION MAN) Narrative Laina Barclay APRN-CNP - 10/07/2021 12:28 PM CONVERSION MAN Laina Barclay APRN-CNP 10/07/2021 12:39 PM Basilio [...] Laina RODGERS PROCEDURE/MINOR S URGICAL ORDERABLES * MO TANGNTL BX SKIN EA SEP ADDL, MO TANGNTL BX SKIN EA SEP ADDL, MO TANGNTL BX SKIN SINGLE LES (09/13/2021 12:21 PM CONVERSION MAN) Narrative Robb Howell MD - 09/13/2021 12:21 PM CONVERSION MAN Betty Gilmore DO 09/13/2021 12:22 PM Risks, [...] a patient labeled container and sent to [facility] Dermatopathology. Patient agrees to phone call for results and message if not available. Betty Gilmore DO Robb Howell MD PROCEDURE/MINOR SURG ICAL ORDERABLES * MO CYSTOURETHROSCOPY (03/10/2021 7:46 PM CDT) Narrative Annie [...] FEM/CHLD HYPOGNDL MALE (02/28/2021 9:45 AM CDT) [facility] Testosterone Total LC-MS 269.1 264.0 - 916.0 ng/dL [facility] INSURANCE BILL Comment: This [facility] LC/MS-MS method is currently certified by the CDC Hormone Standardization Program (HoSt). Adult male reference interval is based on a population of healthy nonobese males (BMI <30) between 19 and 39 years old. Shannan, et.al. JCEM 2017,102;7639-1449. PMID: [id number]. This test was developed and its performance characteristics determined by [facility]. It has not been cleared or approved by the Food and Drug Administration. FASTING 02/28/2021 9:45 AM CDT 02/28/2021 Narrative Resulting Agency Comment Lab Testing performed at: [address] [phone] Annie Mcghee APRN-TURRET LATHE TENDER LAB - DISK RECORDIST RY ORDERABLES [facility] INSURANCE BILL [address] [place] [address] * CARDIAC EKG ORDER (07/11/2020 11:45 AM CONVERSION MAN) Narrative 07/11/2020 11:45 AM CONVERSION MAN Ordered by an unspecified provider. Scanned Document CARDIAC SERVICES ORD ERABLES * (ABNORMAL) GLUCOSE - POINT OF CARE (07/10/2020 4:26 PM CONVERSION MAN) [facility] Glucose WB/POC 216(H) 70 - 115 mg/dL 07/10/2020 4:54 PM CONVERSION MAN [facility] Specimen Type Arterial/C apillary 07/10/2020 4:54 PM CONVERSION MAN [facility] Blood BLOOD SPECIMEN / Unknown 07/10/2020 4:26 PM CONVERSION MAN 07/10/2020 4:54 PM CONVERSION MAN Eloina Phillips MD LAB - POINT OF CARE ORDERABLES [facility] [address] [place] [address], [facility] [phone] * XR CHEST 1VW PORTABLE (07/10/2020 4:22 PM CONVERSION MAN) Anatomical Region Laterality Modality Chest Radiographic Veronica ging 07/10/2020 4:25 PM CONVERSION MAN Impressions 07/11/2020 8:20 AM CONVERSION MAN IMPRESSION: No acute pulmonary process. Cardiac device as above. Dictated by Janet Mills DO (ceo and president). Dr. TOMMIE Zhao MD have personally reviewed and interpreted this examination/study. This report was electronically signed by TOMMIE STORY MD on 07/11/2020 8:20 AM . Narrative 07/11/2020 8:20 AM CONVERSION MAN ORDER DATE: 07/10/2020 4:22 PM EXAMINATION: XR [...] as above. Dictated by Janet Mills DO (ceo and president). Dr. TOMMIE Zhao MD have personally reviewed and interpreted this examination/study. This report was electronically signed by TOMMIE STORY MD on07/11/2020 8:20 AM . Amandeep Parker MD DIAGNOSTIC IMAGING O RDERABLES * PTT [facility] (07/10/2020 3:50 PM CONVERSION MAN) APTT 27.8 23.0 - 38.4 Seconds 07/10/2020 4:14 PM CONVERSION MAN [facility] Comment:Suggested therapeuti c range for full dose I.V. unfractionated heparin therapy for venous thromboembolism is 71 to 109 seconds. Blood BLOOD SPECIMEN / Unknown Venipuncture / Unknown 07/10/2020 3:50 PM CONVERSION MAN 07/10/2020 4:05 PM CONVERSION MAN Amandeep Parker MD LAB - COAGULATION OR DERABLES Performing Organization Address [facility] Co de Phone Number [address] [address], [facility] [phone] * PT-INR [facility] (07/10/2020 3:50 PM CONVERSION MAN) PT 12.9 12.1 - 14.8 Seconds 07/10/2020 4:21 PM CONVERSION MAN [facility] INR 1.0 See Comment 07/10/2020 4:21 PM CONVERSION MAN [facility] Comment:The suggested therap eutic range for standard coumadin (warfarin) therapy is an INR of 2.0-3.0. For high-risk patients (Mechanical Mitral Valve Prosthesis, etc.), the suggested prophylactic therapeutic range is an INR of 2.5-3.5. Blood BLOOD SPECIMEN / Unknown Venipuncture / Unknown 07/10/2020 3:50 PM CONVERSION MAN 07/10/2020 4:05 PM CONVERSION MAN Amandeep Parker MD LAB - COAGULATION OR DERABLES Performing Organization Address [facility] Co de Phone Number [address] [address], [facility] [phone] * TROPONIN I (07/10/2020 3:50 PM CONVERSION MAN) Troponin I 0.015 <0.032 ng/mL 07/10/2020 4:28 PM CONVERSION MAN [facility] Blood BLOOD SPECIMEN / Unknown Venipuncture / Unknown 07/10/2020 3:50 PM CONVERSION MAN 07/10/2020 3:53 PM CONVERSION MAN Amandeep Parker MD LAB - CHEMISTRY ORDE RABLES [facility] [address] [place] [address], [facility] [phone] * (ABNORMAL) DIFFERENTIAL MANUAL (07/10/2020 3:50 PM CONVERSION MAN) WBC (corrected for NRBC) 15.9 10 3/uL 07/10/2020 4:[address] [facility] Total Cell Count 100 07/10/2020 4:45 PM [facility] Neutrophils Absolute Manual 10.97(H) 1.60 - 7.00 10 3/uL 07/10/2020 4:45 PM [facility] Comment:(BANDS+SEGS) x WBC = NEUT # (ANC) Lymphocyte Absolute Manual 3.66(H) 0.80 - 2.90 10 3/uL 07/10/2020 4:45 PM [facility] Monocytes Absolute Manual 1.11(H) 0.14 - 0.66 10 3/uL 07/10/2020 4:45 PM [facility] Eosinophils Absolute Manual 0.16 0.00 - 0.22 10 3/uL 07/10/2020 4:45 PM [facility] Neutrophil % Manual 69(H) 30 - 60 % 07/10/2020 4:45 PM [facility] Lymphocyte % Manual 23 20 - 45 % 07/10/2020 4:45 PM [facility] Monocytes % Manual 7 2 - 10 % 07/10/2020 4:45 PM [facility] Eosinophils % Manual 1 1 - 6 % 07/10/2020 4:45 PM [facility] Platelet Estimate Adequate Adequate 07/10/2020 4:45 PM [facility] RBC Morphology Normal 07/10/2020 4:45 PM [facility] Blood BLOOD SPECIMEN / Unknown Venipuncture / Unknown 07/10/2020 3:50 PM CONVERSION MAN 07/10/2020 3:53 PM CONVERSION MAN Amandeep Parker MD LAB - HEMATOLOGY ORD ERABLES [facility] [address] [place] [address], [facility] [phone] * B-TYPE NATRIURETIC PEPTIDE (07/10/2020 3:50 PM CONVERSION MAN) [facility] BNP <10 See Comment pg/mL 07/10/2020 4:28 PM [facility] Comment: A decision threshold of 100 [...] Unknown Venipuncture / Unknown 07/10/2020 3:50 PM CONVERSION MAN 07/10/2020 3:53 PM CONVERSION MAN Amandeep Parker MD LAB - CHEMISTRY SERENA PAGE [facility] Organization Address City/State/ZIP Co de Phone Number [facility] [address] [place] [phone], [facility] [phone] * (ABNORMAL) COMPREHENSIVE METABOLIC PANEL (07/10/2020 3:50 PM CONVERSION MAN) [facility] BUN 39(H) 7 - 26 mg/dL 07/10/2020 4:24 PM [facility] Creatinine 1.5(H) 0.6 - 1.2 mg/dL 07/10/2020 4:24 PM [facility] Sodium 138 136 - 145 mmol/L 07/10/2020 4:24 PM [facility] Potassium 4.6(H) 3.5 - 4.5 mmol/L 07/10/2020 4:24 PM [facility] Chloride 100 98 - 107 mmol/L 07/10/2020 4:24 PM [facility] CO2 25 22 - 29 mmol/L 07/10/2020 4:24 PM [facility] Glucose 275(H) 70 - 115 mg/dL 07/10/2020 4:24 PM [facility] Calcium 11.1(H) 8.4 - 10.2 mg/dL 07/10/2020 4:24 PM [facility] Protein Total 8.7(H) 6.0 - 8.3 g/dL 07/10/2020 4:24 PM [facility] Albumin 4.1 3.4 - 5.0 g/dL 07/10/2020 4:24 PM [facility] Bilirubin Total 0.3 0.2 - 1.2 mg/dL 07/10/2020 4:24 PM [facility] Alkaline Phosphatase 134 40 - 150 Units/L 07/10/2020 4:24 PM [facility] ALT 17 0 - 55 Units/L 07/10/2020 4:24 PM [facility] AST 12 5 - 34 Units/L 07/10/2020 4:24 PM [facility] Anion Gap 18 8 - 18 07/10/2020 4:24 PM [facility] BUN/Creatinine Ratio 26(H) 7 - 23 07/10/2020 4:24 PM [facility] Osmolality Calculated 305(H) 270 - 300 mOsm/kg 07/10/2020 4:24 PM [facility] Albumin/Globulin Ratio 0.9(L) 1.1 - 2.3 07/10/2020 4:24 PM [facility] eGFR 48(L) >60 mL/min/1.7 3 m2 07/10/2020 4:24 PM [facility] Blood BLOOD SPECIMEN / Unknown Venipuncture / Unknown 07/10/2020 3:50 PM CONVERSION MAN 07/10/2020 3:53 PM CONVERSION MAN Amandeep Parker MD LAB - CHEMISTRY SERENA PAGE [facility] [address] [place] [phone], [facility] [phone] * PHOSPHORUS BLOOD (07/10/2020 3:50 PM CONVERSION MAN) Phosphorus 3.0 2.3 - 4.7 mg/dL 07/10/2020 4:24 PM [facility] Blood BLOOD SPECIMEN / Unknown Venipuncture / Unknown 07/10/2020 3:50 PM CONVERSION MAN 07/10/2020 3:53 PM CONVERSION MAN Amandeep Parker MD LAB - CHEMISTRY SERENA PAGE [address] [address], [place] [phone] * MAGNESIUM BLOOD (07/10/2020 3:50 PM CONVERSION MAN) Magnesium 2.1 1.6 - 2.6 mg/dL 07/10/2020 4:24 PM CONVERSION MAN [facility] Blood BLOOD SPECIMEN / Unknown Venipuncture / Unknown 07/10/2020 3:50 PM CONVERSION MAN 07/10/2020 3:53 PM CONVERSION MAN Amandeep Parker MD LAB - CHEMISTRY SERENA PAGE Performing Organization Address City/[facility]/ZIP Co de Phone Number [address] [address], [place] [phone] * XR LUMBAR SPINE 2 OR 3VW (12/13/2018 11:06 AM CDT) Anatomical Region Laterality Modality Spine Radiographic Veronica ging 12/13/2018 11:1 0 AM CDT Impressions 12/13/2018 1:24 PM CDT IMPRESSION: 1.No acute fracture or compression deformity. 2.Status post kyphoplasty/vertebroplasty of L3 with approximately 25 percent residual vertebral body height loss. 3.Multiple degenerative changes, most severe at L4-S1. Report dictated by Judd Sanchez DO (ceo and president). I, Dr. UZMA BIGGS have personally reviewed [...] L4-S1. Report dictated by Judd Sanchez DO (ceo and president). IDr. UZMA have personally reviewed and interpreted this examination/study. This report was electronically signed by UZMA BIGGS on 12/13/2018 1:24 PM . Jamia Esteves MD DIAGNOSTIC IMAGING O RDERABLES * XR SPINE ENTIRE 2 OR 3VW (09/23/2018 1:36 PM CONVERSION MAN) Anatomical Region Laterality Modality Radiographic Veronica ging 09/23/2018 2:54 PM CONVERSION MAN Impressions 09/24/2018 3:41 PM CONVERSION MAN IMPRESSION: 1.Inadequately visualized cervical spine. The visualized upper cervical levels are grossly unremarkable. 2.Mild thoracic levoscoliosis. 3.Redemonstrated degenerative lumbar disc/joint disease. This report was approved by Robson Dumont on 09/24/2018 3:[address] NAYE Zhao have personally reviewed and interpreted this examination/study. This report was electronically signed by NAYE HUNT on 09/24/2018 3:41 PM . Narrative 09/24/2018 3:41 PM CONVERSION MAN EXAMINATION: Entire spine series, 2 or 3 [...] with back pain status post L4-L5 and L5-A5yivhz block and L3 vertebroplasty COMPARISON: Lumbar CT [...] ANGIO BRAIN AND NECK (08/10/2017 9:23 AM CONVERSION MAN) Anatomical Region Laterality Modality Head Other Impressions 08/10/2017 11:22 AM CONVERSION MAN IMPRESSION: 1. No acute intracranial hemorrhage. 2. [...] 11:22 AM . Narrative 08/10/2017 11:22 AM CONVERSION MAN EXAMINATION: 1. Computed tomographic (CT) angiography of [...] * (ABNORMAL) CREATININE BLOOD - POCT (IP) [facility] (08/10/2017) Creatinine POCT 1.77(A) 0.3 - 1.3 mg/dL [facility] eGFR POCT 43(A) 60 ml/min [facility] 08/10/2017 Carlos Delgado MD LAB - POINT OF CARE ORDERABLES [place] [id number] [place], [place] [id number] [place] [address] * [place] MYELOGRAM LUMBAR (07/20/2017 2:19 PM CONVERSION MAN) Anatomical Region Laterality Modality Spine Other Impressions 07/20/2017 3:26 PM CONVERSION MAN IMPRESSION: 1. Successful lumbar myelogram under fluoroscopic guidance at L3-L4. This report was approved by Jose Urias on 07/20/2017 2:53 PM . I, Dr. KENAN MATTHEW M.D. have personally reviewed and interpreted this examination/study. This report was electronically signed by KENAN MATTHEW M.D. on 07/20/2017 3:26 PM . Narrative 07/20/2017 3:26 PM CONVERSION MAN EXAMINATION: Lumbar myelogram HISTORY: radiculopathy TECHNIQUE: The [...] at L3-L4. This report was approved by [facility] on 07/20/2017 2:[address] KENAN Zhao M.D. have personally reviewed and interpreted thisexamination/study. This report was electronically signed by KENAN MATTHEW M.D. on 07/20/20173:26 PM . Clary Burgess MD FLUOROSCOPY ORDERABL ES * CT LUMBAR POST MYELOGRAM (07/20/2017 2:15 PM CONVERSION MAN) Anatomical Region Laterality Modality Other Impressions 07/20/2017 3:26 PM CONVERSION MAN IMPRESSION: 1. Degenerative disease of the lower lumbar spine with moderate to severe central canal stenosis at L4-L5 and L5-S1. This report was approved by [facility] on 07/20/2017 3:[address] KENAN Zhao M.D. have personally reviewed and interpreted this examination/study. This report was electronically signed by KENAN MATTHEW M.D. on 07/20/2017 3:26 PM . Narrative 07/20/2017 3:26 PM CONVERSION MAN EXAMINATION: Computed tomography (CT) of the lumbar [...] * (ABNORMAL) GLUCOSE ACCUCHECK (07/20/2017 10:19 AM CONVERSION MAN) Glucose, Fingerstick 139(H) 70-115mg/d L mg/dL Alvaro RyanCATHLEEN) Comment:Freight Coordinator: MARANDA KIM 07/20/2017 10:1 9 AM CONVERSION MAN Clary Burgess MD LAB - CHEMISTRY SERENA PAGE [facility] Organization Address City/State/ZIP Co de Phone Number [facility] EPIFANIO (CATHLEEN) * XR LUMBAR SPINE 4VW OR MORE (06/18/2017 2:50 PM CONVERSION MAN) Anatomical Region Laterality Modality Spine Other Impressions 06/25/2017 7:40 AM CONVERSION MAN IMPRESSION: Patient is status post L3 vertebroplasty. [...] are normal. Dictated by Perri Dey MD (ceo and president). Dr. ELEUTERIO Zhao MD have personally reviewed and interpreted this examination/study. This report was electronically signed by ELEUTERIO GRIMALDO MD on 06/25/2017 7:40 AM . Narrative 06/25/2017 7:40 AM CONVERSION MAN EXAMINATION: XR SPINE LUMBAR 4 VW MIN [...] joints arenormal. Dictated by Perri Dey MD (ceo and president). Dr. ELEUTERIO Zhao MD have personally reviewed and interpreted thisexamination/study. This report was electronically signed by ELEUTERIO GRIMALDO MD on 06/25/20177:40 AM . Clary Burgess MD [facility] Care Teams Mental Health Clinician Relationship Specialty Start Date End Date Dina Cloud PA-C [address] [place] [phone] PCP - General Physician Mixer Tender 07/10/20
--- OUTSIDE RECORDS SUMMARY | 2024-09-16 14:07 | XMS_ITS | Encounter Summary ---
Author Organization [facility] Address [address] [place] [address] Phone Care Team Providers Care Special Systems Technician Name Role Phone Dina Cloud PAC Primary Care Provider [phone] Lefty Sousa MD Unavailable [phone] Reason for Visit * Reason Comments Medication Refill Encounter Details Date Type Department Care Team (Late st Contact Info) Description 07/21/2023 Refill [facility] [address] [place] [address] Lefty Sousa MD [address] [address] Medication Refill Social History Tobacco [...] on file Legal Sex Male 11:32 AM WASTE EXAMINER Gender Identity Not on file Sexual Orientation Not on file documented as of this encounter Miscellaneous Notes * Telephone Encounter - Norma Bond RN - 07/21/2023 7:53 AM WASTE EXAMINER Please fill if appropriate E EXAMINER documented in this encounter Plan of Treatment Upcoming Encounters Date Type Department Care Team (Late st Contact Info) Description 12/09/2024 8:30 AM CDT Office Visit [facility] [address] [place] [address] Lefty Sousa MD [address] [place] [address] [address] documented as of this encounter Visit Diagnoses Diagnosis Anemia, unspecified type documented in this encounter Additional Health Concerns Assessment Noted Time PHQ-9 Depression Total Score: 0 04/26/20 9:02 AM CDT documented as of this encounter Care Teams Special Systems Technician Relationship Specialty Start Date End Date Dina Cloud PAC [address] [place] [address] PCP - General Physician Refrigeration Plant Cork Insulator 05/25/20 Lefty Sousa MD [address] [place] [phone] Consulting Physician Hematology and Oncology 01/03/21 documented as of this encounter
[2024-09-16 14:55] LABS: Estimated Glomerular Filt Rate 38
--- NOTE | 2024-09-16 15:24 | ECG_ITS ---
Test Date: 2024-09-16 15:29:45 Measurements Intervals [place] Rate: 101 P: 258 AL: 166 QRS: 268 QRSD: 170 T: 43 QT: 350 QTc: 454 Interpretive Statements ECTOPIC ATRIAL TACHYCARDIA RIGHT AXIS DEVIATION RIGHT BUNDLE BRANCH BLOCK LEFT VENTRICULAR HYPERTROPHY AND ST-T CHANGE ANTEROLATERAL INFARCT, AGE INDETERMINATE INFERIOR INFARCT, AGE INDETERMINATE ST ELEVATION IN ANTEROLAT/INF LEADS SUGGESTIVE OF MYOCARDIAL ANEURYSM BASELINE ARTIFACT- I, II, AVR, AVL, AVF, V1-V2 ABNORMAL ECG No previous ECG available for comparison Electronically Signed On 09-16-2024 19:46:57 FINANCIAL PLANNING ADVISOR by Leonardo Song D.O.
[2024-09-16] MEDS: ONDANSETRON INJ 4 MG/2 ML VIAL IV PUSH (15:36)
[2024-09-16 15:42] LABS: Basophils Percent Auto 0.2 % (0.2-1.2); Eosinophils Absolute Auto 0.1 K/mm3 (0-0.3); Eosinophils Percent Auto 0.3 % (0-4.4); Hematocrit 45.9 % (42.0-52.0); Hemoglobin 16.1 g/dL (14.0-18.0); Immature Granulocyte Absolute 0.07 K/mm3 (0.00-0.031); Immature Granulocyte Percent A 0.4 % (0-0.5); Lymphocytes Absolute Auto 3.28 K/mm3 (0.9-3.2); Lymphocytes Percent Auto 20.1 % (18.3-44.2); Mean Corpuscular HGB Conc 35.1 g/dl (32-36); Mean Corpuscular Hemoglobin 35.5 pg (26-34); Mean Corpuscular Volume 101.1 fl (80-100); Mean Platelet Volume 9.6 fl (7.4-10.4); Monocytes Absolute Auto 1.2 K/mm3 (0.1-0.6); Monocytes Percent Auto 7.5 % (2.6-8.5); Neutrophils Absolute Auto 11.7 K/mm3 (1.3-6.7); Neutrophils Percent Auto 71.5 % (45.5-73.1); Platelet Count Result 344 k/mm3 (150-375); Red Blood Count 4.54 M/mm3 (4.6-6.20); Red Cell Distribution Width 13.8 % (11.5-14.5); White Blood Count 16.3 K/mm3 (4.5-10.0)
[2024-09-16] MEDS: SODIUM CHLORIDE 0.9% IV 1,000 ML 999 ML IV CONT ×2 (15:46→18:45)
[2024-09-16 15:52] LABS: INR 1.1; Prothrombin Time 14.2 Seconds (11.1-14.7)
[2024-09-16 15:53] LABS: Alanine Aminotransferase 32 U/L (6-50); Albumin Level 4.7 g/dL (3.5-5.1); Alkaline Phosphatase 142 U/L (38-126); Anion Gap 20 mmol/L (4-12); Aspartate Amino Transferase 32 U/L (17-59); Bilirubin,Total 0.9 mg/dL (0.2-1.3); Blood Urea Nitrogen 21 mg/dL (9-20); Calcium 11.6 mg/dL (8.4-10.2); Carbon Dioxide 18 mmol/L (22-30); Chloride 98 mmol/L (98-107); Estimated Glomerular Filt Rate 49; Glucose 192 mg/dL (65-110); Lactic Acid Reflex 2.8 mmol/L (0.7-2.0); Lipase 76 U/L (23-300); Magnesium 1.6 mg/dL (1.6-2.3); Partial Thromboplastin Time 26.8 Seconds (22.3-36.8); Potassium 4.3 mmol/L (3.4-5.0); Sodium 136 mmol/L (137-145)
[2024-09-16 15:58] LABS: Creatine Kinase 535 U/L (55-170)
[2024-09-16 16:02] LABS: Ammonia < 9 umol/L (9-30)
[2024-09-16 16:10] LABS: Troponin I 0.045 ng/mL (0.000-0.034)
[2024-09-16 16:18] LABS: Influenza A QL RT-PCR Negative (Negative); Influenza B QL RT-PCR Negative (Negative); RSV RNA, RT-PCR Negative (Negative); SARS-CoV-2 RNA PCR Negative (Negative)
[2024-09-16] MEDS: hydrALAZINE HCL 20 MG/ML VIAL 10 MG IV PUSH (16:22)
[2024-09-16] MEDS: LORazepam INJ (*CRX) 2 MG/ML VIAL 1 MG IV PUSH ×2 (16:24→18:52)
[2024-09-16 16:51] LABS: Amphetamine Screen Urine Positive (Negative); Barbiturate Screen Urine Negative (Negative); Benzodiazepines Screen Urine Negative (Negative); Cannabinoid Screen Urine Positive (Negative); Cocaine Screen Urine Negative (Negative); Methadone Screen Urine Negative (Negative); Opiate Screen Urine Negative (Negative); Phencyclidine Screen Urine Negative (Negative)
[2024-09-16 17:00] LABS: Add Urine Microscopic? YES; Appearance Urine Clear (Clear); Bacteria Urine None Seen /hpf; Bilirubin Urine Negative (Negative); Blood Urine 2+ (Negative); Color Urine Yellow (Yellow); Glucose Urine UA 3+ mg/dL (Negative); Hyaline Casts Urine Present /lpf; Ketones Urine 2+ mg/dL (Negative); Leukocyte Esterase Ur Negative LEU/UL (Negative); Nitrate Urine Negative (Negative); Protein Urine 4+ mg/dL (Negative); Specific Grav Ur > 1.045 (1.001-1.035); Squamous Epithelial Cell Urine None Seen /hpf (Few); Urobilinogen Urine 0.2 mg/dL (<2.0); WBC Urine 0-5 /hpf (0-3); pH Urine 5.5 (5.0-9.0)
[2024-09-16 17:10] LABS: Ethanol < 10 mg/dL (<10)
--- OUTSIDE RECORDS SUMMARY | 2024-09-16 18:38 | XMS_ITS | Encounter Summary ---
Author Organization [facility] Address [facility] [place] [address] Care Team Providers Care Aesthetics Instructor Name Role Phone Joseph Ann MD Unavailable [phone] Chai Junior MD Unavailable Dina Cloud PA-C Primary Care Provider [phone] Encounter Details Date Type Department Care Team (Late st Contact Info) Description 10/01/2020 xCloud Message Enc [facility] [facility] [address] [facility] Provider Missed or Cancelled Appointment Social [...] on filedocumented in this encounter Care Teams Aesthetics Instructor Relationship Specialty Start Date End Date Dina Cloud PA-C [address] [place] [phone] PCP - General NURSE PRACTITIONER 05/19/19 Joseph Ann MD [address] [place] [address] [place] Courtesy Clerk CARDIOVASCULAR DISEASE 01/02/16 Chai Junior MD [address] [place] [address] EP Courtesy Clerk CARDIOVASCULAR DISEASE 09/03/16 documented as of this encounter
--- OUTSIDE RECORDS SUMMARY | 2024-09-16 18:38 | XMS_ITS | Encounter Summary ---
Author Organization [facility] Address [facility] [place] [address] Care Team Providers Care Cigar Head Piercer Name Role Phone Joseph Ann MD Unavailable [phone] Chai Junior MD Unavailable Dina Cloud PA-C Primary Care Provider [phone] Encounter Details Date Type Department Care Team (Late st Contact Info) Description 08/27/2020 Wantster Message Enc [place] [facility] [address] [address] [employer], [facility] Provider Missed Carelink Transmission Social History [...] on filedocumented in this encounter Care Teams Cigar Head Piercer Relationship Specialty Start Date End Date Dina Cloud PA-C [address] [place] [address] PCP - General NURSE PRACTITIONER 05/19/19 Joseph Ann MD [address] [place] [address] [place] Circus Trainer CARDIOVASCULAR DISEASE 01/02/16 Chai Junior MD [address] [place] [address] EP Circus Trainer CARDIOVASCULAR DISEASE 09/03/16 documented as of this encounter
--- OUTSIDE RECORDS SUMMARY | 2024-09-16 18:38 | XMS_ITS | Encounter Summary ---
Author Organization [facility] Address [address] [place] [address] Care Team Providers Care Glass Tube Bender Name Role Phone Ramandeep Ann Primary Care Provider Dina CloudC Primary Care Provider Encounter Details Date Type Department Care Team (Late st Contact Info) Description 11/19/2017 Telephone [facility] [address] [place] [address] Jack Carnes, RN Social History [...] lower back about two years ago at Replaced by [facility] , and he said he is not [...] st Contact Info) Description 09/20/2024 9:30 AM ARC CUTTER PLASMA ARC Office Visit [facility] - Neurology [address] [place] [address], [place] [phone] Meredith Weiss MD [address] [place] [address] [address] [place] [phone] 10/18/2024 1:00 AM CDT [facility] [address] [place] [phone] 10/25/2024 9:00 AM CDT Office Visit [facility] - Cardiology [address] [place] [phone] Daily Bravo MD [address] [place] [address] 11/08/2024 3:40 PM CDT Office Visit [facility] - Endocrinology [address] [place] [address], [place] [phone] Garry Tracey MD [address] [place] [address] [address] [place] [phone] 12/15/2024 2:00 PM CDT Office Visit [facility] - Pulmonology [address] [place] [address], [place] [phone] Becca Ford MD [facility] 2L DIV [place] [address] 01/17/2025 1:10 AM CDT [facility] [address] [phone] 02/24/2025 9:10 AM CDT Office Visit [facility] - Dermatology [address] [place] [phone] Robb Howell MD [address] [facility] 3L [place] [address] 03/02/2025 9:00 AM CDT Office Visit [facility] - Nephrology [address] [place] [phone] Nataliia Cooper MD [facility] 3L [place] [address] 04/18/2025 1:10 AM CDT Clinical Support [facility] - Cardiology [address] [place] [phone] 07/18/2025 1:10 AM ARC CUTTER PLASMA ARC Clinical Support [facility] - Cardiology [address] [place] [phone] documented as of this encounter Visit Diagnoses Not on filedocumented in this encounter Care Teams Glass Tube Bender Relationship Specialty Start Date End Date Ramandeep Ann, [employer] PROJECT MANAGER [address] [place] [phone] PCP - General 03/17/17 07/09/20 Dina Cloud PA-C [address] [place] [phone] PCP - General Physician Nailer Hand 07/10/20 documented as of this encounter
--- OUTSIDE RECORDS SUMMARY | 2024-09-16 18:38 | XMS_ITS | Encounter Summary ---
Author Organization [facility] Address [facility] [place] [address] Care Team Providers Care Gift Packer Name Role Phone Joseph Ann MD Unavailable [phone] Chai Junior MD Unavailable Dina Cloud PA-C Primary Care Provider [phone] Encounter Details Date Type Department Care Team (Late st Contact Info) Description 07/20/2020 iwoca Message Enc [place] [facility] [address] [address] [place], [facility] Provider Missed Carelink Transmission Social [...] COVID-19? No / Unsure 07/17/2020 11:50 AM YARN SKEINS EXAMINER documented as of this encounter Plan of Treatment Not on file documented as of this encounter Visit Diagnoses Not on filedocumented in this encounter Care Teams Gift Packer Relationship Specialty Start Date End Date Dina Cloud PA-C [facility] [place] [address] PCP - General NURSE PRACTITIONER 05/19/19 Joseph Ann MD Three [facility]. [address] [place] [address] [place] Set Up / Operator CARDIOVASCULAR DISEASE 01/02/16 Chai Junior MD [facility]. [address] [place], [place] [address] EP Set Up / Operator CARDIOVASCULAR DISEASE 09/03/16 documented as of this encounter
--- OUTSIDE RECORDS SUMMARY | 2024-09-16 18:38 | XMS_ITS | Encounter Summary ---
Author Organization [facility] Address [address] [place] [address] Care Team Providers Care Nut Sorter Operator Name Role Phone Dina Cloud PA-C Primary Care Provider Reason for Visit * Reason Onset Date Comments Question 02/25/2022 Encounter Details Date Type Department Care Team (Late st Contact Info) Description 02/25/2022 Telephone [facility] [address] [place] [address] Dina Cloud PA-C [address] [place] [phone] Question Social History Tobacco Use [...] arification on request. Patient Call Back number: [phone] documented in this encounter Plan of Treatment Upcoming Encounters Date Type Department Care Team (Late st Contact Info) Description 09/20/2024 9:30 AM ORDER PICKER Office Visit [facility] - Neurology [address] [place] [phone] Meredith Weiss MD [address] [place] [address] [address] [place] [phone] 10/18/2024 1:00 AM CDT Clinical Support [facility] - Cardiology [address] [place] [phone] 10/25/2024 9:00 AM CDT Office Visit [facility] - Cardiology [address] [place] [phone] Daily Bravo MD [address] [place] [phone] 11/08/2024 3:40 PM CDT Office Visit [facility] - Endocrinology [address] [place] [phone] Garry Tracey MD [address] [place] [address] [address] [place] [id number] 12/15/2024 2:00 PM CDT Office Visit [facility] - Pulmonology [address] [place] [phone] Becca Ford MD [address] [place] [address] [address] [place] [address] 01/17/2025 1:10 AM CDT Clinical Support [facility] - Cardiology [address], [address] [phone] 02/24/2025 9:10 AM CDT Office Visit [facility] - Dermatology [address] [place] [address], [place] [phone] Robb Howell MD [address] [facility] [address] [place] [address] 03/02/2025 9:00 AM CDT Office Visit [facility] - Nephrology [address] [place] [address], [place] [phone] Nataliia Cooper MD [address] [facility] 3 [place] [address] 04/18/2025 1:10 AM CDT Clinical Support [facility] - Cardiology [address] [facility], [address] [phone] 07/18/2025 1:10 AM ORDER PICKER Clinical Support [facility] - Cardiology [address] [facility], [address] [phone] documented as of this encounter Visit Diagnoses Not on filedocumented in this encounter Care Teams Nut Sorter Operator Relationship Specialty Start Date End Date Dina Cloud PA-C [address] [place] [phone] PCP - General Physician Interpersonal Communications Professor 07/10/20 documented as of this encounter
[2024-09-16 18:39] LABS: Reflex Lactic Acid Yes or No Add Lactic
--- OUTSIDE RECORDS SUMMARY | 2024-09-16 18:39 | XMS_ITS | Referral Summary ---
Author Organization [facility] Address [address] [facility] [place] [address] Care Team Providers Care Environmental Protection Forester Name Role Phone Dina Cloud PA-C Primary Care Provider Source Comments [facility],non-owned Affiliates and Associated Physician Practices is amultiple site organization consisting of ambulatory clinics and hospital sitesin [place], [place], [place] and [place]. This disclosure is being madepursuant to the Care Everywhere program and may not contain all information available regarding this patient. Last updated 18.[facility] Encounters Date Type Department Care Team Description 09/13/2024 Orders Only [facility] - Nephrology [address] [facility], [place] [address] Nataliia Cooper MD Hypercalcemia 09/13/2024 Refill [facility] - Neurology [address] [facility], [place] [address] Meredith Weiss MD Refill Request 09/08/2024 Travel 09/08/2024 8:15 AM FOLDER MACHINE ADJUSTER Office Visit [facility] - Urology [address] [place] [address] Rd [address] [place] [phone] Josy Davila DO Pain in left testicle (Primary Dx); S/P TURP; Urinary frequency; Dysuria; Pain in both testicles 09/01/2024 10:31 AM FOLDER MACHINE ADJUSTER - 09/01/2024 11:59 PM FOLDER MACHINE ADJUSTER Hospital Encounter [facility] [facility] OP DRAW STATION [address] [place] [address] Nataliia Cooper MD Discharge Disposition: Home or Self Care 09/01/2024 Travel 09/01/2024 8:45 AM FOLDER MACHINE ADJUSTER - 09/01/2024 10:30 AM FOLDER MACHINE ADJUSTER Hospital Encounter [facility] [address] [place] [address] Nataliia Cooper MD Discharge Disposition: Home or Self Care 09/01/2024 9:30 AM FOLDER MACHINE ADJUSTER Office Visit [facility] - Nephrology [address] [place] [phone] Nataliia Cooper MD Stage 3 chronic kidney disease, unspecified whether stage 3a or 3b CKD (HCC) (Primary Dx) 08/26/2024 Travel 08/26/2024 9:10 AM FOLDER MACHINE ADJUSTER Office Visit [facility] - Dermatology [address] [place] [phone] Robb Howell MD 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 (Primary Dx) 08/17/2024 Travel 08/17/2024 10:50 AM FOLDER MACHINE ADJUSTER Office Visit [facility] - General Dermatology [facility] , [facility] [address] [place] [phone] Robb Howell MD Melanocytic nevi of trunk (Primary Dx); [place] angioma; Seborrheic keratoses; Lentigines; Actinic keratosis; History of squamous cell carcinoma of skin; Neoplasm of uncertain behavior of skin; 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 07/19/2024 Travel 07/19/2024 8:20 AM FOLDER MACHINE ADJUSTER Office Visit [facility] - Cardiology [address] [facility], [facility] [address] [place] [phone] Daily Bravo MD SSS (sick sinus syndrome) (HCC) (Primary Dx); Hypertriglyceridemia 06/29/2024 Refill [facility] Urology [address] [facility], [place] [address] Josy Davila, DO Refill Request 06/21/2024 Travel 06/16/2024 Travel 06/16/2024 2:00 PM FOLDER MACHINE ADJUSTER Office Visit [facility] - Pulmonology [address] [place] [phone] Becca Ford MD Dyspnea on exertion (Primary [...] Active vitamin D, ergocalciferol, (DRISDOL) 1.25 MG (23316 UT) capsule Take 1 (one) capsule by [...] 5 01/09/20 23 Active Continuous Blood Gluc Car Filler (Dexcom G7 Car Filler) DEVIIndications:T ype 2 diabetes mellitus without complication, unspecified whether adjunct faculty for medical terminology insulin use (HCC) Use 1 kit as directed 1 Each 01/30/20 23 Active albuterol HFA (ProAir HFA) 108 (90 Base) MCG/ACT inhaler Inhale 2 (two) puffs by mouth every 4 hours as needed 8.5 g 5 06/18/20 23 Active Spacer/Aero-Holdi ng Chambers (AeroChamber) Inhale by mouth as directed 1 Each 5 06/18/20 23 Active HYDROcodone-aceta minophen ([place]) 10-325 MG tablet Take 1 (one) tablet [...] 2 diabetes mellitus without complication, unspecified whether jail insulin use (HCC) Use 1 Each every [...] 10/07/2021 Assessment & Plan (10/07/2021 12:23 PM FOLDER MACHINE ADJUSTER): Triglycerides remain elevated in the setting of uncontrolled DM. Pt has follow up with PCP later this week and Endocrinology in November. Start Vascepa 1 tab po BID. Mixed hyperlipidemia 10/07/2021 Assessment & Plan (10/07/2021 12:24 PM FOLDER MACHINE ADJUSTER): LDL 28, HDL 29. Continue Repatha and Lipitor 80mg daily. FLP prior to follow up in 3 months. HTN (hypertension) 10/07/2021 Assessment & Plan (10/07/2021 12:27 PM FOLDER MACHINE ADJUSTER): SBP uncontrolled in clinic today. Did not take his medications prior to this apportionment. Continue lisinopril 20mg daily. SBP on 09/13 149/79. Neoplasm of uncertain behavior of skin Epidermal inclusion cyst 09/27/2021 Solar lentiginosis 09/27/2021 Melanocytic nevi of trunk 09/27/2021 Lipoma of torso 09/27/2021 Cardiac pacemaker in situ 07/04/2021 Assessment & Plan (10/07/2021 12:39 PM FOLDER MACHINE ADJUSTER): Medtronic PPM, functioning well. See device report from today. Transferred care to our clinic, remotes scheduled. Anemia 03/24/2019 07/16/2023 Myeloproliferative disease 08/26/2018 PAD (peripheral artery disease) 06/02/2018 Occlusion and stenosis of right carotid artery 1 09/23/2016 Immunizations Name Administration Dates Next Due CoderBuddy 12+YR 30MCG/0.3mL 05/13/2023 FLU, HISTORIC VACCINE 05/06/2023 [...] Comments Blood Pressure 164/83 09/08/2024 7:55 AM FOLDER MACHINE ADJUSTER Pulse 94 09/08/2024 7:55 AM FOLDER MACHINE ADJUSTER Temperature 36.7 C (98 F) 09/08/2024 7:55 AM FOLDER MACHINE ADJUSTER Respiratory Rate 17 06/16/2024 1:59 PM FOLDER MACHINE ADJUSTER Oxygen Saturation 95% 09/08/2024 7:55 AM FOLDER MACHINE ADJUSTER Inhaled Oxygen Concentration - - Weight 103.1 kg (227 lb 6.4 oz) 09/08/2024 7:55 AM FOLDER MACHINE ADJUSTER Height 175.3 cm (5' 9 ) 09/08/2024 7:55 AM FOLDER MACHINE ADJUSTER Body Mass Index 33.58 09/08/2024 7:55 AM FOLDER MACHINE ADJUSTER Plan of Treatment Upcoming Encounters Date Type Department Care Team (Late st Contact Info) Description 09/20/2024 9:30 AM FOLDER MACHINE ADJUSTER Office Visit [facility] - Neurology [address] [place] [phone] Meredith Weiss MD [address] [place] [address] [place] [address] 10/18/2024 1:00 AM CDT Clinical Support [facility] - Cardiology [address] [place] [phone] 10/25/2024 9:00 AM CDT [facility] [address] [place] [phone] Daily Bravo MD [address] [place] [phone] 11/08/2024 3:40 PM CDT Office Visit [facility] - Endocrinology [address] [place] [address], [place] [address] Garry Tracey MD [address] [place] [address] [address] [place] [address] 12/15/2024 2:00 PM CDT Office Visit [facility] - Pulmonology [address] [place] [address], [place] [address] Becca Ford MD [address] [place] [address] [address] DIV [place] [address] 01/17/2025 1:10 AM CDT Clinical Support [facility] - Cardiology [address] [place] [phone] 02/24/2025 9:10 AM CDT Office Visit [facility] - Dermatology [address] [place] [address], [place] [address] Robb Howell MD [address] [place] [address] [address] [place] [address] 03/02/2025 9:00 AM CDT Office Visit [facility] - Nephrology [address] [place] [phone] Nataliia Cooper MD [address] [place] [address] 3[address] [place] [address] 04/18/2025 1:10 AM CDT Clinical Support [facility] - Cardiology [address] [place] [phone] 07/18/2025 1:10 AM FOLDER MACHINE ADJUSTER Clinical Support [facility] - Cardiology [address] [place] [address], [address] [phone] Goals Goal Patient Goal Type Associated Problems Recent Progress Patient-Stated? Author Medication Management General On track( 025 10:03 AM FOLDER MACHINE ADJUSTER) Ketty Candelario, MAIN Note: Expected end date: on going Interventions: Take all medications as prescribed Let your doctor know right away about any changes in your medications Make sure to request a refill of your medication at least one week prior to your last dose Procedures Procedure Name Priority Date/Time Associated Diagnosis Comments URINE MICROSCOPIC ONLY REFLEX TO CULTURE Routine 09/01/2024 11:37 AM FOLDER MACHINE ADJUSTER Stage 3 chronic kidney disease, unspecified whether stage 3a or 3b CKD (HCC) MICROALB/CREAT RATIO URINE RANDOM PANEL Routine 09/01/2024 11:37 AM FOLDER MACHINE ADJUSTER Stage 3 chronic kidney disease, unspecified whether stage 3a or 3b CKD (HCC) URINALYSIS REFLEX MICROSCOPIC REFLEX CULTURE Routine 09/01/2024 11:37 AM FOLDER MACHINE ADJUSTER Stage 3 chronic kidney disease, unspecified whether stage 3a or 3b CKD (HCC) VITAMIN D 25-HYDROXY Routine 09/01/2024 11:07 AM FOLDER MACHINE ADJUSTER Stage 3 chronic kidney disease, unspecified whether stage 3a or 3b CKD (HCC) PTH INTACT W/O CALCIUM Routine 11:07 AM FOLDER MACHINE ADJUSTER Stage 3 chronic kidney disease, unspecified whether stage 3a or 3b CKD (HCC) HEMOGLOBIN A1C Routine 09/01/2024 11:07 AM FOLDER MACHINE ADJUSTER Stage 3 chronic kidney disease, unspecified whether stage 3a or 3b CKD (HCC) URIC ACID BLOOD Routine 09/01/2024 11:07 AM FOLDER MACHINE ADJUSTER Stage 3 chronic kidney disease, unspecified whether stage 3a or 3b CKD (HCC) RENAL FUNCTION PANEL Routine 09/01/2024 11:07 AM FOLDER MACHINE ADJUSTER Stage 3 chronic kidney disease, unspecified whether stage 3a or 3b CKD (HCC) CBC W AUTO DIFFERENTIAL Routine 09/01/19 25 11:07 AM FOLDER MACHINE ADJUSTER Stage 3 chronic kidney disease, unspecified whether stage 3a or 3b CKD (HCC) US RETROPERITONEAL COMPLETE Routine 09/01/2024 9:37 AM FOLDER MACHINE ADJUSTER Stage 3 chronic kidney disease, unspecified whether stage 3a or 3b CKD (HCC) WV DESTR MALIG TRUNK,EXTREM 0.6-1 CM Routine 08/26/2024 9:26 AM FOLDER MACHINE ADJUSTER 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 WV DESTR MALIG TRUNK,EXTREM 0.6-1 CM Routine 08/17/2024 12:25 PM FOLDER MACHINE ADJUSTER 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 WV DESTROY PREMALIG LESION, 1ST LESION Routine 08/17/2024 12:25 PM FOLDER MACHINE ADJUSTER Actinic keratosis WV TANGNTL BX SKIN SINGLE LES Routine 08/17/2024 12:24 PM FOLDER MACHINE ADJUSTER Neoplasm of uncertain behavior of skin DERMATOPATHOLOGY Routine 08/17/2024 3:33 AM FOLDER MACHINE ADJUSTER Neoplasm of uncertain behavior of skin CARDIAC PROCEDURE ORDER 07/26/2024 [place] PM DEVICE PROGR EVAL DUAL Routine 07/19/2024 8:47 AM FOLDER MACHINE ADJUSTER SSS (sick sinus syndrome) (HCC) EKG 12-LEAD Routine 07/19/2024 8:11 AM FOLDER MACHINE ADJUSTER SSS (sick sinus syndrome) (HCC) CARDIAC PROCEDURE ORDER 07/19/2024 CT LUNG SCREEN LOW DOSE Routine 06/14/20 1:47 PM FOLDER MACHINE ADJUSTER Nicotine dependence, cigarettes, uncomplicated from Last 3 Months or Most Recently Relevant to Health Maintenance Results * (ABNORMAL) URINE MICROSCOPIC ONLY REFLEX TO CULTURE (09/01/2024 11:37 AM FOLDER MACHINE ADJUSTER) Reflex Status Culture not indicated 09/01/2024 12:36 PM [facility] WBC UA 0-5 None Seen, 0-5 /HPF 09/01/2024 12:36 PM [facility] Squamous Epithelial Cells UA 0-2 None Seen, 0-2, 3-5 /HPF 09/01/2024 12:36 PM [facility] Mucus UA 1+ /LPF 09/01/2024 12:36 PM [facility] Hyaline Casts UA 3-5(A) None Seen, 0-2 /LPF 09/01/2024 12:36 PM [facility] Urine URINE SPECIMEN OBTAINED BY CLEAN CATCH PROCEDURE / Unknown Collection / Unknown 09/01/2024 11:37 AM FOLDER MACHINE ADJUSTER 09/01/2024 12:05 PM [facility] - 09/01/2024 12:36 PM FOLDER MACHINE ADJUSTER Nataliia Cooper MD LAB - URINALYSIS ORD ERABLES [facility] [address] [place] [phone], [facility] [[email or web address]] [phone] * (ABNORMAL) URINALYSIS REFLEX MICROSCOPIC REFLEX CULTURE (09/01/2024 11:37 AM FOLDER MACHINE ADJUSTER) Color UA Yellow Straw, Yellow 09/01/2024 12:13 PM [facility] Clarity UA Slt Cloudy(A) Clear 09/01/2024 12:13 PM [facility] Specific [place] UA 1.026 1.005 - 1.030 09/01/2024 12:13 PM [facility] pH UA 5.0 5.0 - 8.0 pH 09/01/2024 12:13 PM [facility] Protein UA 2+(A) Negative 09/01/2024 12:13 PM [facility] Glucose UA 3+(A) Negative 09/01/2024 12:13 PM [facility] Ketone UA Negative Negative 09/01/2024 12:13 PM [facility] Bilirubin UA Negative Negative 09/01/2024 12:13 PM [facility] Blood UA Negative Negative 09/01/2024 12:13 PM [facility] Nitrite UA Negative Negative 09/01/2024 12:13 PM [facility] Leukocyte Esterase Negative Negative 09/01/2024 12:13 PM [facility] Urobilinogen UA Negative Negative mg/dL 09/01/2024 12:13 PM [facility] Urine URINE SPECIMEN OBTAINED BY CLEAN CATCH PROCEDURE / Unknown Collection / Unknown 09/01/2024 11:37 AM FOLDER MACHINE ADJUSTER 09/01/2024 12:05 PM FOLDER MACHINE ADJUSTER Narrative [facility] - 09/01/2024 12:13 PM FOLDER MACHINE ADJUSTER Nataliia Cooper MD LAB - URINALYSIS ORD ERABLES Performing Organization Address City/[facility]/ZIP Co de Phone Number [address] [address], [facility] [[email or web address]] [phone] * (ABNORMAL) MICROALB/CREAT RATIO URINE RANDOM PANEL (09/01/2024 11:37 AM FOLDER MACHINE ADJUSTER) Albumin Random Urine 755.4 Not Established ug/mL 09/01/2024 12:59 PM [facility] Comment:Result obtained by julio barrett. Creatinine Urine 161.04 Not Established mg/dL 09/01/2024 12:59 PM [facility] Urine Albumin/Creati nine Ratio 469(H) <30 mg/g 09/01/2024 12:59 PM [facility] Urine URINE SPECIMEN OBTAINED BY CLEAN CATCH PROCEDURE / Unknown Collection / Unknown 09/01/2024 11:37 AM FOLDER MACHINE ADJUSTER 09/01/2024 12:10 PM FOLDER MACHINE ADJUSTER Nataliia Cooper MD LAB - URINE CHEMISTR Y ORDERABLES Performing Organization Address City/[facility]/ZIP Co de Phone Number [address] [address], [place] [phone] * (ABNORMAL) PTH INTACT W/O CALCIUM (09/01/2024 11:07 AM FOLDER MACHINE ADJUSTER) PTH Intact 203.7(H) 8.0 - 77.0 pg/mL 09/01/2024 12:15 PM [facility] Blood BLOOD SPECIMEN / Unknown Lab Venipuncture / Unknown 09/01/2024 11:07 AM FOLDER MACHINE ADJUSTER 09/01/2024 11:42 AM FOLDER MACHINE ADJUSTER Nataliia Cooper MD LAB - CHEMISTRY SERENA PAGE Performing Organization Address City/[facility]/ZIP Co de Phone Number [address] [address], [facility] [[email or web address]] [phone] * (ABNORMAL) URIC ACID BLOOD (09/01/2024 11:07 AM FOLDER MACHINE ADJUSTER) Uric Acid 7.3(H) 3.5 - 7.2 mg/dL 09/01/2024 12:14 PM [facility] Blood BLOOD SPECIMEN / Unknown Lab Venipuncture / Unknown 09/01/2024 11:07 AM FOLDER MACHINE ADJUSTER 09/01/2024 11:42 AM FOLDER MACHINE ADJUSTER Nataliia Cooper MD LAB - CHEMISTRY SERENA PAGE Performing Organization Address [facility] Co de Phone Number [address] [address], [facility] [[email or web address]] [phone] * (ABNORMAL) HEMOGLOBIN A1C (09/01/2024 11:07 AM FOLDER MACHINE ADJUSTER) Hemoglobin A1c 7.7(H) <=5.6 % 09/01/2024 1:10 PM [facility] Estimated Average Glucose 174 mg/dL 09/01/2024 1:10 PM [facility] Comment: HbA1c Interpretation: Normal : < 5.7% Pre-diabetes: 5.7-6.4% Diabetes: Equal to or greater than 6.5% Test results diagnostic of diabetes should be repeated for confirmation. Treatment target values recommended by ADA and other clinical organizations should be used to evaluate metabolic control in patients. Reference: [place] [employer], Standards of Care in Diabetes -2020 In patients 70 years and older consider HbA1c target range of 7.0-7.5% (Reference: Vickey Moser et al. JAMDA. 2012) The Sebia assay for the measurement of HbA1c is a National Glycohemoglobin Standardization Program (NGSP) certified method. Blood BLOOD SPECIMEN / Unknown Lab Venipuncture / Unknown 09/01/2024 11:07 AM FOLDER MACHINE ADJUSTER 09/01/2024 11:42 AM FOLDER MACHINE ADJUSTER Nataliia Cooper MD LAB - CHEMISTRY SERENA PAGE Performing Organization Address City/[facility]/ZIP Co de Phone Number [address] [address], [facility] [[email or web address]] [phone] * VITAMIN D 25-HYDROXY (09/01/2024 11:07 AM FOLDER MACHINE ADJUSTER) Pathologist [facility] Vitamin D, 25 Hydroxy 43.2 30.0 - 80.0 ng/mL 09/01/2024 12:32 PM FOLDER MACHINE ADJUSTER [facility] Comment: The recommendations for 25-Hydroxy Vitamin [...] Lab Venipuncture / Unknown 09/01/2024 11:07 AM FOLDER MACHINE ADJUSTER 09/01/2024 11:42 AM FOLDER MACHINE ADJUSTER Nataliia Cooper MD LAB - CHEMISTRY SERENA PAGE Performing Organization Address City/[facility]/ZIP Co de Phone Number [address] [address], [facility] [[email or web address]] [phone] * (ABNORMAL) CBC WITH DIFFERENTIAL (09/01/2024 11:07 AM FOLDER MACHINE ADJUSTER) WBC 11.8(H) 4.0 - 10.7 x10E9/L 09/01/2024 11:56 AM [facility] RBC Count 4.20(L) 4.30 - 5.80 x10E12/L 09/01/2024 11:56 AM [facility] Hemoglobin 14.7 13.3 - 17.5 g/dL 09/01/2024 11:56 AM [facility] Hematocrit 44.0 38.7 - 51.1 % 09/01/2024 11:56 AM [facility] MCV 104.8(H) 80.0 - 98.0 fL 09/01/2024 11:56 AM [facility] MCH 35.0(H) 26.7 - 33.6 pg 09/01/2024 11:56 AM [facility] MCHC 33.4 31.7 - 36.3 g/dL 09/01/2024 11:56 AM [facility] RDW-CV 14.6 11.3 - 14.8 % 09/01/2024 11:56 AM [facility] Platelet Count 285 150 - 420 x10E9/L 09/01/2024 11:56 AM [facility] MPV 10.3 7.8 - 11.4 fL 09/01/2024 11:56 AM [facility] Neutrophil % 49.1 41.0 - 74.0 % 09/01/2024 11:56 AM [facility] Lymphocyte % 38.5 17.0 - 47.0 % 09/01/2024 11:56 AM [facility] Monocyte % 7.1 3.0 - 11.0 % 09/01/2024 11:56 AM [facility] Eosinophil % 4.0 0.0 - 7.0 % 09/01/2024 11:56 AM [facility] Basophil % 0.8 0.0 - 1.6 % 09/01/2024 11:56 AM [facility] Immature Granulocytes % 0.5 0.0 - 1.0 % 09/01/2024 11:56 AM [facility] Neutrophil Absolute 5.82 1.60 - 7.50 x10E9/L 09/01/2024 11:56 AM [facility] Lymphocyte Absolute 4.56(H) 1.00 - 4.40 x10E9/L 09/01/2024 11:56 AM [facility] Monocyte Absolute 0.84 0.15 - 1.00 x10E9/L 09/01/2024 11:56 AM [facility] Eosinophil Absolute 0.47 0.00 - 0.60 x10E9/L 09/01/2024 11:56 AM [facility] Basophil Absolute 0.09 0.00 - 0.13 x10E9/L 09/01/2024 11:56 AM [facility] Blood BLOOD SPECIMEN / Unknown Lab Venipuncture / Unknown 09/01/2024 11:07 AM FOLDER MACHINE ADJUSTER 09/01/2024 11:42 AM FOLDER MACHINE ADJUSTER Nataliia Cooper MD LAB - HEMATOLOGY ORD ERABLES Performing Organization Address City/[facility]/ZIP Co de Phone Number [facility] [address] [place] [phone] [phone] * (ABNORMAL) RENAL FUNCTION PANEL (09/01/2024 11:07 AM FOLDER MACHINE ADJUSTER) BUN 27(H) 7 - 26 mg/dL 09/01/2024 12:14 PM [facility] Creatinine 2.02(H) 0.71 - 1.16 mg/dL 09/01/2024 12:14 PM [facility] Sodium 141 136 - 145 mmol/L 09/01/2024 12:14 PM [facility] Potassium 4.6(H) 3.5 - 4.5 mmol/L 09/01/2024 12:14 PM [facility] Chloride 107 98 - 107 mmol/L 09/01/2024 12:14 PM [facility] CO2 27 22 - 29 mmol/L 09/01/2024 12:14 PM [facility] Glucose 154(H) 70 - 99 mg/dL 09/01/2024 12:14 PM [facility] Albumin 3.9 3.4 - 5.0 g/dL 09/01/2024 12:14 PM [facility] Calcium 11.3(H) 8.4 - 10.2 mg/dL 09/01/2024 12:14 PM [facility] Phosphorus 2.9 2.8 - 5.1 mg/dL 09/01/2024 12:14 PM [facility] Anion Gap 7 6 - 16 09/01/2024 12:14 PM [facility] BUN/Creatinine Ratio 13 7 - 23 09/01/2024 12:14 PM [facility] Osmolality Calculated 300(H) 275 - 295 mOsm/kg 09/01/2024 12:14 PM FOLDER MACHINE ADJUSTER [facility] eGFR by CKD-EPI 36(L) >=90 mL/min/1.7 3 m2 09/01/2024 12:14 PM FOLDER MACHINE ADJUSTER [facility] Blood BLOOD SPECIMEN / Unknown Lab Venipuncture / Unknown 09/01/2024 11:07 AM FOLDER MACHINE ADJUSTER 09/01/2024 11:42 AM FOLDER MACHINE ADJUSTER Nataliia Cooper MD LAB - CHEMISTRY SERENA PAGE [facility] [address] [place] [address], [facility] [[email or web address]] [phone] * US Retroperitoneal Complete (09/01/2024 9:37 AM FOLDER MACHINE ADJUSTER) Anatomical Region Laterality Modality Abdomen Ultrasound 09/01/2024 9:45 AM FOLDER MACHINE ADJUSTER Impressions 09/01/2024 9:50 AM FOLDER MACHINE ADJUSTER Impression: 1. Normal-sized kidneys with normal echogenicity. 2. No hydronephrosis or nephrolithiasis. > Interpreting Provider: Denae Grijalva MD on 09/01/2024 9:50 AM Narrative 09/01/2024 9:50 AM FOLDER MACHINE ADJUSTER PROCEDURE: US RETROPERITONEAL COMPLETE DATE/TIME OF EXAM: [...] AM Nataliia Cooper MD US ORDERABLES * WV DESTR MALIG TRUNK,EXTREM 0.6-1 CM (08/26/2024 9:26 AM FOLDER MACHINE ADJUSTER) Narrative Robb Howell MD - 08/26/2024 9:26 AM FOLDER MACHINE ADJUSTER Amandeep Helton MD 08/26/2024 9:41 AM PROCEDURE: [...] tolerated the procedure well. Amandeep Helton MD [facility] Dermatology Resident Robb Howell MD PROCEDURE/MINOR SURG ICAL ORDERABLES * WV DESTR MALIG TRUNK,EXTREM 0.6-1 CM (08/17/2024 12:25 PM FOLDER MACHINE ADJUSTER) Narrative Robb Howell MD - 08/17/2024 12:25 PM FOLDER MACHINE ADJUSTER Guy Gómez MD 08/17/2024 12:26 PM PROCEDURE: [...] Howell MD PROCEDURE/MINOR SURG ICAL ORDERABLES * WV DESTROY PREMALIG LESION, 1ST LESION (08/17/2024 12:25 PM FOLDER MACHINE ADJUSTER) Narrative Robb Howell MD - 08/17/2024 12:25 PM FOLDER MACHINE ADJUSTER Guy Gómez MD 08/17/2024 12:25 PM Diagnosis and treatment options discussed. Cryotherapy (Liquid Nitrogen) to 1 lesion for 4-6 seconds. Number of cycles: 1. Wound care reviewed. Robb Howell MD PROCEDURE/MINOR SURG ICAL ORDERABLES * WV TANGNTL BX SKIN SINGLE LES (08/17/2024 12:24 PM FOLDER MACHINE ADJUSTER) Narrative Robb Howell MD - 08/17/2024 12:24 PM FOLDER MACHINE ADJUSTER Guy Gómez MD 08/17/2024 12:24 PM Risks, [...] ICAL ORDERABLES * DERMATOPATHOLOGY (08/17/2024 3:33 AM FOLDER MACHINE ADJUSTER) Case Report Dermatopathology Report Case: [id number] Authorizing Provider: Robb Howell MD Collected: 08/17/2024 03:33 AM Ordering Location: [facility] - Received: 08/18/2024 11:05 AM General Dermatology Pathologist: Rose Soto MD Specimen: Skin, left forearm 1:26 PM [facility] Final Diagnosis Specimen A. 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 The specimen consists of a shave biopsy measuring [id number] mm. Jar 0. 1:26 PM [facility] Microscopic Description Specimen A. SKIN, left forearm: The epidermis shows parakeratosis, full thickness disorderly maturation of keratinocytes, mitoses at different levels, and dyskeratotic cells. 1:26 PM [facility] DERMATOPATHOLOGY LABORATORY Disclaimer An external and internal positive and negative controls are appropriate for the histochemical, immunohistochemical and immunofluorescence stain(s) in this case (if any), except where stated explicitly. The performance characteristics of the stain(s) cited in this report were developed and its performance characteristic determined by the Dermatopathology Laboratory at [facility], directed by Dr. Barbara Becker. These tests need not be, and therefore are not, approved by the [place] Food and Drug Administration. The tests are used for clinical purposes. Billing Codes Specimen Charges Stain Charges 74939 1 5 1:26 PM FOLDER MACHINE ADJUSTER DERMATOPATHOLOGY LABORATORY Embedded Images 5 1:26 PM FOLDER MACHINE ADJUSTER DERMATOPATHOLOGY LABORATORY Pathology/Cytolo gy TISSUE SPECIMEN FROM SKIN / Unknown 08/17/2024 3:33 AM FOLDER MACHINE ADJUSTER 08/18/2024 11:05 AM FOLDER MACHINE ADJUSTER Robb Howell MD LAB - PATHOLOGY/CYTO LOGY ORDERABLES DERMATOPATHOLOGY LABORATORY [facility] - Department of Dermatology [address], 3rd Floor [address] [phone] * CARDIAC PROCEDURE ORDER (07/26/2024) Only the most recent of2 resultswithin the time period is included. Narrative 07/26/2024 Ordered by an unspecified provider. Scanned Document CARDIAC SERVICES ORD ERABLES * [place] PM DEVICE PROGR EVAL DUAL (07/19/2024 8:47 AM FOLDER MACHINE ADJUSTER) Narrative Daily Bravo MD - 07/19/2024 8:47 AM FOLDER MACHINE ADJUSTER Daily Bravo MD 07/19/2024 8:49 AM This is a 64 year old male with a H/O sick sinus syndrome . The patient received a Medtronic Advisa DR dual chamber pacemaker on 09/23/16. The patients device is functioning appropriately according to the director of casework department's recommendations with appropriate battery voltage, charge time, shock impedance (s), lead impedance (s) along with pacing and sensing thresholds. The patient will be scheduled for 3 month remote follow-up. Instructed to call with questions or problem. Daily Bravo MD PROCEDURE/MINOR SURG ICAL ORDERABLES * EKG 12-LEAD (07/19/2024 8:11 AM FOLDER MACHINE ADJUSTER) Ventricular Rate 71 BPM [facility] Atrial Rate 71 BPM [facility] P-R Interval 244 ms [facility] QRS Duration ms 194 ms [facility] Q-T Interval ms 446 ms [facility] QTC Calculation (Bezet) 484 ms [facility] Calculated R [place] -85 degrees [facility] Calculated T [place] 34 degrees [facility] Interpretation EKG [...] 1:27:54 PM [facility] 07/19/2024 8:11 AM FOLDER MACHINE ADJUSTER 07/19/2024 1:27 PM FOLDER MACHINE ADJUSTER Daily Bravo MD ECG ORDERABLES ANNIE ACEVEDO * CT LUNG CANCER SCREEN LOW DOSE (06/14/2024 1:47 PM FOLDER MACHINE ADJUSTER) Anatomical Region Laterality Modality Chest Computed Tomogra phy 06/14/2024 3:19 PM FOLDER MACHINE ADJUSTER Impressions 06/14/2024 8:13 PM FOLDER MACHINE ADJUSTER Impression: No pulmonary nodules identified. Lung-RADS category [...] > Dictated by Naz Roblero MD, (residential director). IRuel MD have personally reviewed and interpreted this examination/study. > Interpreting Provider: Ruel Whitehead MD on 06/14/2024 8:13 PM Narrative 06/14/2024 8:13 PM FOLDER MACHINE ADJUSTER PROCEDURE: CT LUNG SCREEN LOW DOSE DATE/TIME [...] > Dictated by Naz Roblero MD, (residential director). IRuel MD have personally reviewed and interpreted this examination/study. > Interpreting Provider: Ruel Whitehead MD on 06/14/2024 8:13 PM [address] MD [address] ORDERABLES from Last 3 Months or Most Recently Relevant to Health Maintenance Care Teams Environmental Protection Forester Relationship Specialty Start Date End Date Dina Cloud PA-C [address] [place] [address] PCP - General Physician Cot Assembler 07/10/20
--- OUTSIDE RECORDS SUMMARY | 2024-09-16 18:39 | XMS_ITS | Encounter Summary ---
Author Organization [facility] Address [address] [place] [address] Phone Care Team Providers Care Technical Sales Engineer Name Role Phone Provider, Unknown Primary Care Provider Unavaila Dina Yepez Primary Care Provider [phone] Lefty Sousa MD Unavailable [phone] Encounter Details Date Type Department Care Team (Late st Contact Info) Description 02/09/2020 Telephone [facility] [address] [place] [address] Lefty Sousa MD [address] [address] Social History Tobacco Use Types [...] on file Legal Sex Male 11:32 AM 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 Gender Identity Not on file Sexual Orientation [...] CDT Office Visit [facility] [address] [place] [address] Lefty Sousa MD [address] [place], [place] [address] documented as of this encounter Visit Diagnoses Not on filedocumented in this encounter Additional Health Concerns Assessment Noted Time PHQ-9 Depression Total Score: 0 11/03/19 8:14 AM CDT documented as of this encounter Care Teams Technical Sales Engineer Relationship Specialty Start Date End Date Provider, Unknown UNKNOWN PCP - General Primary Care 07/14/18 05/24/20 Dina Cloud PAC [address] [place] [address] PCP - General Physician Cookie Mixer Helper 05/25/20 Lefty Sousa MD [address] [place] [phone] Consulting Physician Hematology and Oncology 01/03/21 documented as of this encounter
--- OUTSIDE RECORDS SUMMARY | 2024-09-16 18:39 | XMS_ITS | Encounter Summary ---
Author Organization [facility] Address [facility]ly [facility] [place] [address] Care Team Providers Care Truck Driver Name Role Phone Joseph Ann MD Unavailable [phone] Chai Junior MD Unavailable Ramandeep AnnP Primary Care Provider [phone] Dina Cloud PA-C Primary Care Provider [phone] Encounter Details Date Type Department Care Team (Late st Contact Info) Description 07/30/2018 Abstract [facility] at [address] [address] Baudilio Sewell MA Social History [...] PG pt send letter continue current meds RVISOR FUR FLOOR WORKER documented in this encounter Plan of Treatment [...] MRSA 03/09/2017 03/09/2017 10/05/2018 12:4 0 PM SUPERVISOR FUR FLOOR WORKER documented as of this encounter Care Teams Truck Driver Relationship Specialty Start Date End Date Ramandeep Ann FNP [facility]. [address] [place] [address] PCP - General NURSE PRACTITIONER 05/04/18 10/31/18 Dina Cloud PA-C [address] [place] [address] PCP - General NURSE PRACTITIONER 05/19/19 Joseph [facility] MD [facility] [address] [place] [address] [place] Warehouse Shipping Associate CARDIOVASCULAR DISEASE 01/02/16 Chai Junior MD [facility] [address] [place], [place] [address] EP Warehouse Shipping Associate CARDIOVASCULAR DISEASE 09/03/16 documented as of this encounter
--- OUTSIDE RECORDS SUMMARY | 2024-09-16 18:39 | XMS_ITS | Clinical Summary ---
Author Organization [facility] Address [address] [place] [address] Care Team Providers Care Cadd Operator Name Role Phone Joseph Ann MD Unavailable [phone] Chai Junior MD Unavailable Dina Cloud PA-C Primary Care Provider [phone] Allergies Active Allergy Reactions Criticality Noted Date [...] daily. 0 Active vitamin D2, ergocalciferol , 15412 UNITS capsule TK ONE C PO Q [...] cream 1 Active Lancets (ONETOUCH DELICA PLUS [id number]) Misc Inject 1 each into the skin. [...] artery stenosis 12/15/2017 SSS (sick sinus syndrome) ([facility]) 11/02 Abnormal EKG 06/04/2016 Syncope and collapse 06/04/2016 Type 2 diabetes mellitus wit h complication, with long-term current use of insulin ([facility]) 05/21/2016 CVA (cerebral vascular accident) ([facility]) 05/21/2016 Sacroiliitis 09/04/2015 MRSA (methicillin resistant staph aureus) cultur e positive 08/15/2015 Nontraumatic compression fra cture of lumbosacral vertebra ([facility]) 07/13/2015 Lumbar compression fracture ([facility]) Impingement syndrome of right shoulder 5 Shoulder pain, right 05/08/2015 Hyperlipidemia Essential hypertension CAD (coronary artery disease) Family History Medical History Relation Comments Diabetes Father Hypertension Mother Stroke Mother ID Paternal Grandfather Stroke Paternal Grandmother Relation Status [...] this topic Medical Devices Implanted Type Area Cafe Worker Device Identifier Shelf Expiration Date Model / Serial / Lot Atrial Lead-09/23/2016 Implanted:09/23 by Chai Junior MD (Quantity not on file) Lead Implant [employer] [id number] CAPSUREFIX NOVUS / [id number] / Ventricular Lead-09/23/2016 Implanted:09/23 by Chai Junior MD (Quantity not on file) Lead Implant [employer] 5076 CAPSUREFIX NOVUS / [id number] / Medtronic Pacemaker-2016 Implanted:09/23 by Chai Junior MD (Quantity not on file) Pacemaker [employer] [id number] ADVI SA DR STINSON / [id number] / Procedures Procedure Name Priority Date/Time Associated [...] the left lateral decubitus position, the Olympus [id number] colonoscope was introduced into the rectum and [...] Most Recently Relevant to Health Maintenance Insurance [facility] Advance Directives Documents on File Type Date Recorded Patient Brine Purifier Expl anation Advance Directives and Living Will 06/22/2020 9:37 AM [facility] 2019 * Full Code (Latest Code Status on File) Date Activated Date Inactivated Comments 09/28/2017 9:22 AM 09/28/2017 3:24 PM Care Teams Cadd Operator Relationship Specialty Start Date End Date Dina Cloud PA-C [address] [place] [address] PCP - General NURSE PRACTITIONER 05/19/19 Joseph Ann MD [address] [address] [place] Cooker Syrup CARDIOVASCULAR DISEASE 01/02/16 Chai Junior MD [facility] [address] [place] [address] EP Cooker Syrup CARDIOVASCULAR DISEASE 09/03/16
--- OUTSIDE RECORDS SUMMARY | 2024-09-16 18:39 | XMS_ITS | Encounter Summary ---
Author Organization 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 Gender Identity Not on file Sexual Orientation [...] Visit [facility] [address] [place] [address] Lefty Sousa MD [address] [place] [address] [id number] documented as of this encounter Visit Diagnoses Not on filedocumented in this encounter Additional Health Concerns Assessment Noted Time PHQ-9 Depression Total Score: 0 11/03/19 8:14 AM CDT documented as of this encounter Care Teams Time Analysis Clerk Relationship Specialty Start Date End Date Provider, Unknown UNKNOWN PCP - General Primary Care 07/14/18 05/24/20 Dina Cloud PAC [address] [place] [address] PCP - General Physician Corporate Job Titles 05/25/20 Lefty Sousa MD [address] [place] [phone] Consulting Physician Hematology and Oncology 01/03/21 documented as of this encounter
--- OUTSIDE RECORDS SUMMARY | 2024-09-16 18:39 | XMS_ITS | Encounter Summary ---
Author Organization [facility] Address [facility] [place] [address] Care Team Providers Care Stamp Clerk Name Role Phone Joseph Ann MD Unavailable [phone] Chai Junior MD Unavailable Annie Chavez MD Primary Care Provider [phone] Ramandeep AnnP Primary Care Provider [phone] Dina Cloud PA-C Primary Care Provider [phone] Encounter Details Date Type Department Care Team (Late st Contact Info) Description 10/23/2017 Abstract [facility] at [address] [address] Baudilio Sewell MA Social History Tobacco Use [...] MRSA 03/09/2017 03/09/2017 10/05/2018 12:4 0 PM ASSISTED LIVING HOME DIRECTOR documented as of this encounter Care Teams Stamp Clerk Relationship Specialty Start Date End Date Annie Chavez MD [facility]. [facility] [address] [place] [address] PCP - General FAMILY PRACTICE 08/03/17 05/03/18 Ramandeep Ann FNP [facility]. [facility] [address] [place] [address] PCP - General NURSE PRACTITIONER 05/04/18 10/31/18 Dina Cloud PA-C [address] [place] [address] PCP - General NURSE PRACTITIONER 05/19/19 Joseph Ann MD [facility]. [facility] [address] [place] [address] [place] Wood Tile Installation Helper CARDIOVASCULAR DISEASE 01/02/16 Chai Junior MD [address] [place] [address] EP Wood Tile Installation Helper CARDIOVASCULAR DISEASE 09/03/16 documented as of this encounter
--- OUTSIDE RECORDS SUMMARY | 2024-09-16 18:39 | XMS_ITS | Clinical Summary ---
Author Organization [facility] Address [address] [place] [address] Care Team Providers Care Transonic Engineer Name Role Phone Unavailable Primary Care [...] each day 6 Active ergocalciferol 1.25 MG (54831 UT) capsule ergocalciferol (vitamin D2) 1,250 mcg [...] 1 (one) time each day 3 Active Albuterol-[place] sonide 90-80 MCG/ACT aerosol Inhale 2 puffs [...] LAB BLOOD ORDERABLES Final R esult [facility] [place] [address] [place] [address] from Last 3 Months or Most Recently Relevant to Health Maintenance Insurance [facility]
--- OUTSIDE RECORDS SUMMARY | 2024-09-16 18:39 | XMS_ITS | Encounter Summary ---
Author Organization [facility] Address [facility] [place] [address] Care Team Providers Care Poker Prop Player Name Role Phone Joseph Ann MD Unavailable [phone] Chai Junior MD Unavailable Dina Cloud PA-C Primary Care Provider [phone] Encounter Details Date Type Department Care Team (Late st Contact Info) Description 08/12/2019 [facility] at [address] [address] Baudilio Sewell MA Social History Tobacco Use [...] Final * BASIC METABOLIC PANEL (02/21/2019) Pathologist [facility] SODIUM S/P/B 134 137 - 145 POTASSIUM [...] Final Result * VITAMIN B-12 (02/21/2019) Pathologist [facility] VITAMIN B12 S/P/B 470 239 - 931 02/21/2019 us Doc [facility] LABORAT[facility] Final Result * FOLATE (OUTSIDE LAB) (02/21/2019) Pathologist [facility] FOLATE >20.0 02/21/2019 us Doc [facility] LAB-OUTSIDE/ABSTRACTED Final Result * LIPID PANEL (02/20/2019) Pathologist [facility] CHOLESTEROL 129 0 - 200 HDL 27 TRIGLYCERIDES 241 <150 LDL (CALCULATED) 79 02/20/2019 us Doc [facility] Final Result * PROTIME (OUTSIDE LAB) (02/20/2019) Pathologist [facility] PROTIME 13.1 INR 1.0 02/20/2019 us Doc [facility] LAB-OUTSIDE/ABSTRACTED Final Result documented in this encounter Visit Diagnoses Not on filedocumented in this encounter Care Teams Poker Prop Player Relationship Specialty Start Date End Date Dina Cloud PA-C [address] [place] [address] PCP - General NURSE PRACTITIONER 05/19/19 Joseph Ann MD [facility] [address] [place] [address] [place] Billboard Poster CARDIOVASCULAR DISEASE 01/02/16 Chai Junior MD [facility] [address] [place] [address] EP Billboard Poster CARDIOVASCULAR DISEASE 09/03/16 documented as of this encounter
--- OUTSIDE RECORDS SUMMARY | 2024-09-16 18:39 | XMS_ITS | Encounter Summary ---
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 Gender Identity Not on file Sexual Orientation Not on file documented as of this encounter Miscellaneous Notes * Telephone Encounter - Ketty Lopez - 09/17/2020 9:20 AM CST Called pt to reschedule due to weather-pt states he will have his regulatory assistant call back to reschedule MANAGER documented in this encounter Plan of Treatment Upcoming Encounters Date Type Department Care Team (Late st Contact Info) Description 12/09/2024 8:30 AM CDT Office Visit [facility] [address] [place] [phone] Lefty Sousa MD [address] [facility] 2 [place] [address] documented as of this encounter Visit Diagnoses Not on filedocumented in this encounter Additional Health Concerns Assessment Noted Time PHQ-9 Depression Total Score: 0 05/17/20 8:28 AM CDT documented as of this encounter Care Teams Diesel Motor Mechanic Relationship Specialty Start Date End Date Dina Cloud PAC [address] [place] [address] PCP - General Physician Billing And Quality Technician 05/25/20 Lefty Sousa MD [address] [place] [address] Consulting Physician Hematology and Oncology 01/03/21 documented as of this encounter
--- OUTSIDE RECORDS SUMMARY | 2024-09-16 18:39 | XMS_ITS | Encounter Summary ---
Author Organization [facility] Address [facility] [place] [address] Care Team Providers Care Supply Requirements Officer Name Role Phone Joseph Ann MD Unavailable [phone] Chai Junior MD Unavailable Kulwant Felix MD Primary Care Provider [phone] Annie Chavez MD Primary Care Provider + [phone] Ramandeep Ann Primary Care Provider [phone] Dina Cloud PA-C Primary Care Provider [phone] Encounter Details Date Type Department Care Team (Late st Contact Info) Description 06/10/2017 Abstract [facility] AT [address] [address] Baudilio Sewell MA Social History Tobacco Use [...] PG pt send letter continue current meds OR CYTOTECHNOLOGIST documented in this encounter Plan of Treatment [...] MRSA 03/09/2017 03/09/2017 10/05/2018 12:4 0 PM SENIOR CYTOTECHNOLOGIST documented as of this encounter Care Teams Supply Requirements Officer Relationship Specialty Start Date End Date Kulwant Felix MD [address] [address] PCP - General 03/17/17 08/02/17 Annie Chavez MD [address] [address] PCP - General FAMILY PRACTICE 08/03/17 05/03/18 Ramandeep Ann FNP [address] [address] PCP - General NURSE PRACTITIONER 05/04/18 10/31/18 Dina Cloud PA-C [address] [place] [address] PCP - General NURSE PRACTITIONER 05/19/19 Joseph Ann MD Three [facility]. [address] [place] [address] [place] Shaft Mechanic CARDIOVASCULAR DISEASE 01/02/16 Chai Junior MD Three [facility]. [address] [place], [place] [id number] EP Shaft Mechanic CARDIOVASCULAR DISEASE 09/03/16 documented as of this encounter
--- OUTSIDE RECORDS SUMMARY | 2024-09-16 18:39 | XMS_ITS | Encounter Summary ---
Author Organization [facility] Address [address] [place] [address] Phone Care Team Providers Care Insurance Risk Analyst Name Role Phone Dina Cloud PAC Primary Care Provider [phone] Lefty Sousa MD Unavailable [phone] Encounter Details Date Type Department Care Team (Late st Contact Info) Description 08/23/2020 Telephone [facility] [address] [place] [address] Lefty Sousa MD [facility] [address] [address] Social History Tobacco Use Types [...] on file Legal Sex Male 11:32 AM MEDICAL 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 CAL MANAGER documented in this encounter Plan of Treatment Upcoming Encounters Date Type Department Care Team (Late st Contact Info) Description 12/09/2024 8:30 AM CDT Office Visit [facility] [address] [place] [phone] Lefty Sousa MD 1052 [facility] [address] [address] documented as of this encounter Visit Diagnoses Not on filedocumented in this encounter Additional Health Concerns Assessment Noted Time PHQ-9 Depression Total Score: 0 05/17/20 8:28 AM CDT documented as of this encounter Care Teams Insurance Risk Analyst Relationship Specialty Start Date End Date Dina Cloud PAC [facility] [place] [address] PCP - General Physician Photographic Machine Operator 05/25/20 Lefty Sousa MD [address] [place] [phone] Consulting Physician Hematology and Oncology 01/03/21 documented as of this encounter
--- OUTSIDE RECORDS SUMMARY | 2024-09-16 18:40 | XMS_ITS | Patient Health Summary ---
Author Organization [facility] Address [address] [place] [address] Care Team Providers Care Tool Machine Setup Operator Name Role Phone Dina Cloud PA-C Primary Care Provider Note from [facility],non-owned Affiliates and Associated Physician Practices is amultiple site organization consisting of ambulatory clinics and hospital sitesin [place], [place], [place] and [place]. This disclosure is being madepursuant to the Care Everywhere program and may not contain all information available regarding this patient. Last updated 18.[facility] Allergies * Penicillins(Other) -Low Criticality Medications * Be aware that medications may not be up to date on this document. Alwaysverify current medications with the patient. * folic acid (FOLVITE) 1 MG tablet(Started 07/20/2017) Take by mouth DAILY. * atorvastatin (LIPITOR) 80 MG tablet(Started 05/26/2017) Take 1 (one) tablet by mouth once daily * vitamin D, ergocalciferol, (DRISDOL) 1.25 MG (35385 UT) capsule(Started 06/27/2020) Take 1 (one) capsule [...] refills by 01/08/2024 * Continuous Blood Gluc Thermoforming Machine Operator (Dexcom G7 Thermoforming Machine Operator) SHANE(Started 01/29/2023) Use 1 kit as directed * albuterol HFA (ProAir HFA) 108 (90 Base) MCG/ACT inhaler(Started 06/18/2023) Inhale 2 (two) puffs by mouth every 4 hours as needed 5 refills by 06/17/2024 * Spacer/Aero-Holding Chambers (AeroChamber)(Started 06/18/2023) Inhale by mouth as directed 5 refills by 06/17/2024 * HYDROcodone-acetaminophen (Cranberry) 10-325 MG tablet(Started 09/04/2023) Take 1 (one) [...] Comments Blood Pressure 164/83 09/08/2024 7:55 AM DETASSELING CREW SUPERVISOR Pulse 94 09/08/2024 7:55 AM DETASSELING CREW SUPERVISOR Temperature 36.7 C (98 F) 09/08/2024 7:55 AM DETASSELING CREW SUPERVISOR Respiratory Rate 17 06/16/2024 1:59 PM DETASSELING CREW SUPERVISOR Oxygen Saturation 95% 09/08/2024 7:55 AM DETASSELING CREW SUPERVISOR Inhaled Oxygen Concentration - - Weight 103.1 kg (227 lb 6.4 oz) 09/08/2024 7:55 AM DETASSELING CREW SUPERVISOR Height 175.3 cm (5' 9 ) 09/08/2024 7:55 AM DETASSELING CREW SUPERVISOR Body Mass Index 33.58 09/08/2024 7:55 AM DETASSELING CREW SUPERVISOR Procedures * URINE MICROSCOPIC ONLY REFLEX TO [...] stage 3a or 3b CKD (HCC) * SC DESTR MALIG TRUNK,EXTREM 0.6-1 CM(Performed 08/26/2024) 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 * SC DESTR MALIG TRUNK,EXTREM 0.6-1 CM(Performed 08/17/2024) 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 * SC DESTROY PREMALIG LESION, 1ST LESION(Performed 08/17/2024) Performed for Actinic keratosis * SC TANGNTL BX SKIN SINGLE LES(Performed 08/17/2024) Performed for Neoplasm of uncertain behavior of skin * DERMATOPATHOLOGY(Performed 08/17/2024) Performed for Neoplasm of uncertain behavior of skin * CARDIAC PROCEDURE ORDER(Performed 07/26/2024) * SC PM DEVICE PROGR EVAL DUAL(Performed 07/19/2024) Performed for SSS (sick sinus syndrome) ([facility]) * EKG 12-LEAD(Performed 07/19/2024) Performed for SSS (sick sinus syndrome) ([facility]) * CARDIAC PROCEDURE ORDER(Performed 07/19/2024) * CT LUNG SCREEN LOW DOSE(Performed 06/14/2024) Performed for Nicotine dependence, cigarettes, uncomplicated * SC PM/ICD REMOTE TECH SERV(Performed 06/04/2024) Performed for SSS (sick sinus syndrome) ([facility]) * SC PM DEVICE INTERROGATE REMOTE(Performed 06/04/2024) Performed for SSS (sick sinus syndrome) ([facility]) * CARDIAC PROCEDURE ORDER(Performed 04/22/2024) * URINE MICROSCOPIC ONLY REFLEX TO CULTURE(Performed 04/21/2024) Performed for Stage 3 chronic kidney disease, unspecified whether stage 3a or 3b CKD ([facility]) * MICROALB/CREAT RATIO URINE RANDOM PANEL(Performed 04/21/2024) Performed for Stage 3 chronic kidney disease, unspecified whether stage 3a or 3b CKD ([facility]) * URINALYSIS REFLEX MICROSCOPIC REFLEX CULTURE(Performed 04/21/2024) Performed for Stage 3 chronic kidney disease, unspecified whether stage 3a or 3b CKD (HCC) * VITAMIN D 25-HYDROXY(Performed 04/21/2024) Performed for Stage 3 chronic kidney disease, unspecified whether stage 3a or 3b CKD ([facility]) * PTH INTACT W/O CALCIUM(Performed 04/21/2024) Performed for Stage 3 chronic kidney disease, unspecified whether stage 3a or 3b CKD ([facility]) * HEMOGLOBIN A1C(Performed 04/21/2024) Performed for Stage 3 chronic kidney disease, unspecified whether stage 3a or 3b CKD ([facility]) * URIC ACID BLOOD(Performed 04/21/2024) Performed for Stage 3 chronic kidney disease, unspecified whether stage 3a or 3b CKD ([facility]) * RENAL FUNCTION PANEL(Performed 04/21/2024) Performed for Stage 3 chronic kidney disease, unspecified whether stage 3a or 3b CKD ([facility]) * CBC W AUTO DIFFERENTIAL(Performed 04/21/2024) Performed for Stage 3 chronic kidney disease, unspecified whether stage 3a or 3b CKD ([facility]) * DEXA BONE DENSITY AXIAL SKELETON(Performed 04/21/2024) Performed for Hyperparathyroidism ([facility]) * LAB RESULTS ORDER(Performed 03/09/2024) * PROC UROFLOWMETRY(Performed 02/25/2024) Performed for S/P TURP * SC MSR PVR U&/BLADD CAPCTY US NON(Performed 02/25/2024) Performed for S/P TURP * URINALYSIS AUTO - POINT OF CARE (AMB) SLU(Performed 02/25/2024) Performed for S/P TURP * SC TANGNTL BX SKIN SINGLE LES(Performed 01/29/2024) Performed for Neoplasm of uncertain behavior of skin * SC DESTROY PREMALIG LESION, 2-14(Performed 01/29/2024) Performed for Actinic keratosis * SC DESTROY PREMALIG LESION, 1ST LESION(Performed 01/29/2024) Performed for Actinic keratosis * DERMATOPATHOLOGY(Performed 01/29/2024) Performed for Neoplasm of uncertain behavior of skin * CARDIAC PROCEDURE ORDER(Performed 01/25/2024) * SC PM DEVICE PROGR EVAL DUAL(Performed 01/12/2024) Performed for SSS (sick sinus syndrome) ([facility]) * PTH RELATED PEPTIDE(Performed 09/28/2023) * VITAMIN D 1,25 DIHYDROXY(Performed 09/28/2023) * PTH INTACT(Performed 09/28/2023) * MICROALB/CREAT RATIO URINE RANDOM PANEL(Performed 09/28/2023) * VITAMIN D 25-HYDROXY(Performed 09/28/2023) * LIPID PROFILE(Performed 09/28/2023) * BASIC METABOLIC PANEL (CALCIUM TOTAL)(Performed 09/28/2023) * PROC UROFLOWMETRY(Performed 09/25/2023) Performed for Pain in both testicles * SC MSR PVR U&/BLADD CAPCTY US NON(Performed 09/25/2023) Performed for Pain in both testicles * URINALYSIS AUTO - POINT OF CARE (AMB) SLU(Performed 09/25/2023) Performed for Pain in both testicles * SC POLYSOM 6/>YRS CPAP 4/> PARM(Performed 09/02/2023) Performed [...] 07/03/2023) Performed for Coronary artery disease involving kenaitze coronary artery of kenaitze heart without angina pectoris * PROC IMPLANT WEAR CARDIAC DEVICE EVAL(Performed 07/03/2023) Performed for Cardiac pacemaker in situ * CT CHEST WO CONT AND HIRES(Performed 06/18/2023) Performed for Abnormal CT of the chest * COMPLETE PFT W/WO BRONCHODILATOR(Performed 06/18/2023) Performed for Dyspnea on exertion * SC PM/ICD REMOTE TECH SERV(Performed 05/23/2023) Performed for Cardiac pacemaker in situ * SC PM DEVICE INTERROGATE REMOTE(Performed 05/23/2023) Performed for Cardiac pacemaker in situ * PROC UROFLOWMETRY(Performed 05/21/2023) Performed for S/P TURP * SC MSR PVR U&/BLADD CAPCTY US NON(Performed 05/21/2023) Performed for S/P TURP * URINALYSIS AUTO - POINT OF CARE (AMB) SLU(Performed 05/21/2023) Performed for S/P TURP * HEMOGLOBIN A1C - POINT OF CARE (AMB) SLU(Performed 04/02/2023) Performed for Type 2 diabetes mellitus without complication, unspecified whether vermin exterminator insulin use ([facility]) * CARDIAC PROCEDURE ORDER(Performed 04/02/2023) * SC PM DEVICE INTERROGATE REMOTE(Performed 01/31/2023) Performed for SSS (sick sinus syndrome) ([facility]), Cardiac pacemaker in situ * SC PM/ICD REMOTE TECH SERV(Performed 01/31/2023) Performed for SSS (sick sinus syndrome) ([facility]), Cardiac pacemaker in situ * SC CYSTOURETHROSCOPY(Performed 01/15/2023) Performed for Urine stream spraying, Painful urination * SC MSR PVR U&/BLADD CAPCTY US NON(Performed 01/15/2023) Performed for Pain in testicle, unspecified laterality * SC ELECTRO-UROFLOWMETRY, FIRST(Performed 01/15/2023) Performed for Pain in testicle, unspecified laterality * CT ABDOMEN PELVIS WWO CONTRAST(Performed 01/15/2023) Performed for Pain in testicle, unspecified laterality, Painful urination, Urine stream spraying, S/P TURP * CREATININE - POCT INTERFACED(Performed 01/15/2023) * LIPID PROFILE(Performed 01/13/2023) * CARDIAC PROCEDURE ORDER(Performed 01/06/2023) * SC PM DEVICE PROGR EVAL SNGL(Performed 01/01/2023) Performed for SSS (sick sinus syndrome) ([facility]) * PERIPHERAL NEUROPATHY PANEL(Performed 12/30/2022) Performed for Neuropathy * CARDIAC PROCEDURE ORDER(Performed 12/18/2022) * SC INJECT NERV BLCK,ILIOINGU/ILIOHYP(Performed 11/26/2022) Performed for Pain in testicle, unspecified laterality * URINALYSIS AUTO - POINT OF CARE (AMB) SLU(Performed 10/29/2022) Performed for Urinary frequency * PATHOLOGY/CYTOLOGY REPORT ORDER(Performed 10/29/2022) * URINALYSIS AUTO - POINT OF CARE (AMB) SLU(Performed 10/07/2022) Performed for Pain in testicle, unspecified laterality * SC BLDR INSTLJ ANTICARCINOGENIC AGT(Performed 10/01/2022) Performed for Urinary frequency, Dysuria * LAB RESULTS ORDER(Performed 10/01/2022) * HEMOGLOBIN A1C - POINT OF CARE (AMB) SLU(Performed 09/29/2022) Performed for Type 2 diabetes mellitus with other circulatory complication, with long-term current use of insulin ([facility]) * SC IRRIGATION OF BLADDER(Performed 09/17/2022) Performed for Painful urination * SC PM/ICD REMOTE TECH SERV(Performed 08/19/2022) Performed for SSS (sick sinus syndrome) ([facility]), Cardiac pacemaker in situ * SC PM DEVICE INTERROGATE REMOTE(Performed 08/19/2022) Performed for SSS (sick sinus syndrome) ([facility]), Cardiac pacemaker in situ * CARDIAC PROCEDURE ORDER(Performed 08/15/2022) * HEMOGLOBIN A1C - POINT OF CARE (AMB) SLU(Performed 05/19/2022) Performed for Type 2 diabetes mellitus without complication, unspecified whether care home insulin use ([facility]) * OPH OCT TEST SLU(Performed 04/15/2022) Performed for Diabetes mellitus without ophthalmic manifestations ([facility]) * CARDIAC PROCEDURE ORDER(Performed 03/04/2022) * PHOSPHORUS [...] URINE CULTURE (EXTERNAL RESULT ENTRY)(Performed 12/26/2021) * SC EXC SKIN BENIG 1.1-2CM FACE,FACIAL(Performed 12/16/2021) Performed for Neoplasm of uncertain behavior of skin * SC INTMD WND REPAIR FACE,FACIAL <2.5CM(Performed 12/16/2021) Performed for Neoplasm of uncertain behavior of skin * SC DESTR MALIG TRUNK,EXTREM 1.1-2 CM(Performed 12/16/2021) 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 * DERMATOPATHOLOGY(Performed 11/28/2021) Performed for Neoplasm of uncertain behavior of skin * HEMOGLOBIN A1C - POINT OF CARE (AMB) SLU(Performed 11/19/2021) Performed for Type 2 diabetes mellitus without complication, unspecified whether vermin exterminator insulin use ([facility]) * URINALYSIS AUTO - POINT OF CARE (AMB) SLU(Performed 11/08/2021) Performed for Dysuria * CARDIAC PROCEDURE ORDER(Performed 10/10/2021) * LAB RESULTS ORDER(Performed 10/09/2021) * PROC IMPLANT WEAR CARDIAC DEVICE EVAL(Performed 10/07/2021) Performed for SSS (sick sinus syndrome) ([facility]) * LAB RESULTS ORDER(Performed 09/27/2021) * LAB RESULTS ORDER(Performed 09/27/2021) * SC TANGNTL BX SKIN SINGLE LES(Performed 09/13/2021) Performed for Neoplasm of uncertain behavior of skin * SC TANGNTL BX SKIN EA SEP ADDL(Performed 09/13/2021) Performed for Neoplasm of uncertain behavior of skin * SC TANGNTL BX SKIN EA SEP ADDL(Performed 09/13/2021) [...] 05/23/2021) * LAB RESULTS ORDER(Performed 03/11/2021) * SC CYSTOURETHROSCOPY(Performed 03/10/2021) Performed for Dysuria, Urine stream [...] 07/10/2020) * MAGNESIUM BLOOD(Performed 07/10/2020) * PT-INR [facility](Performed 07/10/2020) * COMPREHENSIVE METABOLIC PANEL(Performed [...] ONLY REFLEX TO CULTURE (09/01/2024 11:37 AM DETASSELING CREW SUPERVISOR) Only the most recent of2 resultswithin the time period is included. Reflex Status Culture not indicated 09/01/2024 12:36 [address] DETASSELING CREW SUPERVISOR [facility] WBC UA 0-5 None Seen, 0-5 /HPF 09/01/2024 12:36 PM DETASSELING CREW SUPERVISOR [facility] Squamous Epithelial Cells UA 0-2 None Seen, 0-2, 3-5 /HPF 09/01/2024 12:36 PM [facility] Mucus UA 1+ /LPF 09/01/2024 12:36 PM [facility] Hyaline Casts UA 3-5(A) None Seen, 0-2 /LPF 09/01/2024 12:36 PM [facility] Urine URINE SPECIMEN OBTAINED BY CLEAN CATCH PROCEDURE / Unknown Collection / Unknown 09/01/2024 11:37 AM DETASSELING CREW SUPERVISOR 09/01/2024 12:05 PM DETASSELING CREW SUPERVISOR [facility] - 09/01/2024 12:36 PM DETASSELING CREW SUPERVISOR Nataliia Cooper MD LAB - URINALYSIS ORD ERABLES [facility] [address] [place] [address], [facility] [phone] * (ABNORMAL) URINALYSIS REFLEX MICROSCOPIC REFLEX CULTURE (09/01/2024 11:37 AM DETASSELING CREW SUPERVISOR) Only the most recent of2 resultswithin the time period is included. Color UA Yellow Straw, Yellow 09/01/2024 12:13 PM [facility] Clarity UA Slt Cloudy(A) Clear 09/01/2024 12:13 PM [facility] Specific [place] UA 1.026 1.005 - 1.030 09/01/2024 12:13 PM [facility] pH UA 5.0 5.0 - 8.0 pH 09/01/2024 12:13 PM [facility] Protein UA 2+(A) Negative 09/01/2024 12:13 PM [facility] Glucose UA 3+(A) Negative 09/01/2024 12:13 PM [facility] Ketone UA Negative Negative 09/01/2024 12:13 PM [facility] Bilirubin UA Negative Negative 09/01/2024 12:13 PM [facility] Blood UA Negative Negative 09/01/2024 12:13 PM [facility] Nitrite UA Negative Negative 09/01/2024 12:13 PM [facility] Leukocyte Esterase Negative Negative 09/01/2024 12:13 PM [facility] Urobilinogen UA Negative Negative mg/dL 09/01/2024 12:13 PM [facility] Urine URINE SPECIMEN OBTAINED BY CLEAN CATCH PROCEDURE / Unknown Collection / Unknown 09/01/2024 11:37 AM DETASSELING CREW SUPERVISOR 09/01/2024 12:05 PM DETASSELING CREW SUPERVISOR Narrative [facility] - 09/01/2024 12:13 PM DETASSELING CREW SUPERVISOR Nataliia Cooper MD LAB - URINALYSIS ORD ERABLES Performing Organization Address City/[facility]/ZIP Co de Phone Number [facility] [address] [place] [address], [place] [phone] * (ABNORMAL) MICROALB/CREAT RATIO URINE RANDOM PANEL (09/01/2024 11:37 AM DETASSELING CREW SUPERVISOR) Only the most recent of3 resultswithin the time period is included. Albumin Random Urine 755.4 Not Established ug/mL 09/01/2024 12:59 PM [facility] Comment:Result obtained by julio barrett. Creatinine Urine 161.04 Not Established mg/dL 09/01/2024 12:59 PM [facility] Urine Albumin/Creati nine Ratio 469(H) <30 mg/g 09/01/2024 12:59 PM [facility] Urine URINE SPECIMEN OBTAINED BY CLEAN CATCH PROCEDURE / Unknown Collection / Unknown 09/01/2024 11:37 AM DETASSELING CREW SUPERVISOR 09/01/2024 12:10 PM DETASSELING CREW SUPERVISOR Nataliia Cooepr MD LAB - URINE CHEMISTR Y ORDERABLES Performing Organization Address [facility]/ZIP Co de Phone Number [address] [address], [place] [phone] * (ABNORMAL) PTH INTACT W/O CALCIUM (09/01/2024 11:07 AM DETASSELING CREW SUPERVISOR) Only the most recent of2 resultswithin the time period is included. PTH Intact 203.7(H) 8.0 - 77.0 pg/mL 09/01/2024 12:15 PM [facility] Blood BLOOD SPECIMEN / Unknown Lab Venipuncture / Unknown 09/01/2024 11:07 AM DETASSELING CREW SUPERVISOR 09/01/2024 11:42 AM DETASSELING CREW SUPERVISOR Nataliia Cooper MD LAB - CHEMISTRY SERENA PAGE Performing Organization Address City/[facility]/ZIP Co de Phone Number [facility] [address] [place] [phone], [facility] [phone] * (ABNORMAL) URIC ACID BLOOD (09/01/2024 11:07 AM DETASSELING CREW SUPERVISOR) Only the most recent of2 resultswithin the time period is included. Uric Acid 7.3(H) 3.5 - 7.2 mg/dL 09/01/2024 12:14 PM [facility] Blood BLOOD SPECIMEN / Unknown Lab Venipuncture / Unknown 09/01/2024 11:07 AM DETASSELING CREW SUPERVISOR 09/01/2024 11:42 AM DETASSELING CREW SUPERVISOR Nataliia Cooper MD LAB - CHEMISTRY SERENA PAEG Performing Organization Address [facility]/ZIP Co de Phone Number [address] [address], [facility] [phone] * (ABNORMAL) HEMOGLOBIN A1C (09/01/2024 11:07 AM DETASSELING CREW SUPERVISOR) Only the most recent of5 resultswithin the time period is included. Hemoglobin A1c 7.7(H) <=5.6 % 09/01/2024 1:10 PM [facility] Estimated Average Glucose 174 mg/dL 09/01/2024 1:10 PM [facility] Comment: HbA1c Interpretation: Normal : < 5.7% Pre-diabetes: 5.7-6.4% Diabetes: Equal to or greater than 6.5% Test results diagnostic of diabetes should be repeated for confirmation. Treatment target values recommended by ADA and other clinical organizations should be used to evaluate metabolic control in patients. Reference: [place] [employer], Standards of Care in Diabetes -2020 In patients 70 years and older consider HbA1c target range of 7.0-7.5% (Reference: Vickey Moser et al. JAMDA. 2012) The Sebia assay for the measurement of HbA1c is a National Glycohemoglobin Standardization Program (NGSP) certified method. Blood BLOOD SPECIMEN / Unknown Lab Venipuncture / Unknown 09/01/2024 11:07 AM DETASSELING CREW SUPERVISOR 09/01/2024 11:42 AM DETASSELING CREW SUPERVISOR Nataliia Cooper MD LAB - CHEMISTRY SERENA PAGE Performing Organization Address City/[facility]/ZIP Co de Phone Number [facility] [address] [place] [address], [facility] [phone] * VITAMIN D 25-HYDROXY (09/01/2024 11:07 AM DETASSELING CREW SUPERVISOR) Only the most recent of3 resultswithin the time period is included. Vitamin D, 25 Hydroxy 43.2 30.0 - 80.0 ng/mL 09/01/2024 12:32 PM DETASSELING CREW SUPERVISOR [facility] Comment: The recommendations for 25-Hydroxy Vitamin [...] Lab Venipuncture / Unknown 09/01/2024 11:07 AM DETASSELING CREW SUPERVISOR 09/01/2024 11:42 AM DETASSELING CREW SUPERVISOR Nataliia Cooper MD LAB - CHEMISTRY SERENA PAGE Performing Organization Address City/[facility]/ZIP Co de Phone Number [facility] [address] [place] [phone], [facility] [phone] * (ABNORMAL) CBC WITH DIFFERENTIAL (09/01/2024 11:07 AM DETASSELING CREW SUPERVISOR) Only the most recent of3 resultswithin the time period is included. WBC 11.8(H) 4.0 - 10.7 x10E9/L 09/01/2024 11:56 AM [facility] RBC Count 4.20(L) 4.30 - 5.80 x10E12/L 09/01/2024 11:56 AM [facility] Hemoglobin 14.7 13.3 - 17.5 g/dL 09/01/2024 11:56 AM [facility] Hematocrit 44.0 38.7 - 51.1 % 09/01/2024 11:56 AM [facility] MCV 104.8(H) 80.0 - 98.0 fL 09/01/2024 11:56 AM [facility] MCH 35.0(H) 26.7 - 33.6 pg 09/01/2024 11:56 AM [facility] MCHC 33.4 31.7 - 36.3 g/dL 09/01/2024 11:56 AM [facility] RDW-CV 14.6 11.3 - 14.8 % 09/01/2024 11:56 AM [facility] Platelet Count 285 150 - 420 x10E9/L 09/01/2024 11:56 AM [facility] MPV 10.3 7.8 - 11.4 fL 09/01/2024 11:56 AM [facility] Neutrophil % 49.1 41.0 - 74.0 % 09/01/2024 11:56 AM [facility] Lymphocyte % 38.5 17.0 - 47.0 % 09/01/2024 11:56 AM [facility] Monocyte % 7.1 3.0 - 11.0 % 09/01/2024 11:56 AM [facility] Eosinophil % 4.0 0.0 - 7.0 % 09/01/2024 11:56 AM [facility] Basophil % 0.8 0.0 - 1.6 % 09/01/2024 11:56 AM [facility] Immature Granulocytes % 0.5 0.0 - 1.0 % 09/01/2024 11:56 AM [facility] Neutrophil Absolute 5.82 1.60 - 7.50 x10E9/L 09/01/2024 11:56 AM [facility] Lymphocyte Absolute 4.56(H) 1.00 - 4.40 x10E9/L 09/01/2024 11:56 AM [facility] Monocyte Absolute 0.84 0.15 - 1.00 x10E9/L 09/01/2024 11:56 AM [facility] Eosinophil Absolute 0.47 0.00 - 0.60 x10E9/L 09/01/2024 11:56 AM [facility] Basophil Absolute 0.09 0.00 - 0.13 x10E9/L 09/01/2024 11:56 AM [facility] Blood BLOOD SPECIMEN / Unknown Lab Venipuncture / Unknown 09/01/2024 11:07 AM [employer]SELING CREW SUPERVISOR 09/01/2024 11:42 AM [employer]ASSELING CREW SUPERVISOR Nataliia Cooper MD LAB - HEMATOLOGY ORD ERABLES [facility] [address] [place] [address], [facility] [phone] * (ABNORMAL) RENAL FUNCTION PANEL (09/01/2024 11:07 AM [facility]) Only the most recent of2 resultswithin the time period is included. BUN 27(H) 7 - 26 mg/dL 09/01/2024 12:14 PM [facility] Creatinine 2.02(H) 0.71 - 1.16 mg/dL 09/01/2024 12:14 PM [facility] Sodium 141 136 - 145 mmol/L 09/01/2024 12:14 PM [facility] Potassium 4.6(H) 3.5 - 4.5 mmol/L 09/01/2024 12:14 PM [facility] Chloride 107 98 - 107 mmol/L 09/01/2024 12:14 PM [facility] CO2 27 22 - 29 mmol/L 09/01/2024 12:14 PM [facility] Glucose 154(H) 70 - 99 mg/dL 09/01/2024 12:14 PM [facility] Albumin 3.9 3.4 - 5.0 g/dL 09/01/2024 12:14 PM [facility] Calcium 11.3(H) 8.4 - 10.2 mg/dL 09/01/2024 12:14 PM [facility] Phosphorus 2.9 2.8 - 5.1 mg/dL 09/01/2024 12:14 PM [facility] Anion Gap 7 6 - 16 09/01/2024 12:14 PM [facility] BUN/Creatinine Ratio 13 7 - 23 09/01/2024 12:14 PM [facility] Osmolality Calculated 300(H) 275 - 295 mOsm/kg 09/01/2024 12:14 PM [facility] eGFR by CKD-EPI 36(L) >=90 mL/min/1.7 3 m2 09/01/2024 12:14 PM [facility] Blood BLOOD SPECIMEN / Unknown Lab Venipuncture / Unknown 09/01/2024 11:07 AM [employer]ASSELING CREW SUPERVISOR 09/01/2024 11:42 AM [employer]ASSELING CREW SUPERVISOR Nataliia Cooper MD LAB - CHEMISTRY ORDDominique PAGE [facility] Organization Address City/State/ZIP Co de Phone Number [facility] [address] [place] [address], [facility] [phone] * US Retroperitoneal Complete (09/01/2024 9:37 AM DETASSELING CREW SUPERVISOR) Anatomical Region Laterality Modality Abdomen Ultrasound 09/01/2024 9:45 AM DETASSELING CREW SUPERVISOR Impressions 09/01/2024 9:50 AM DETASSELING CREW SUPERVISOR Impression: 1. Normal-sized kidneys with normal echogenicity. 2. No hydronephrosis or nephrolithiasis. > Interpreting Provider: Denae Grijalva MD on 09/01/2024 9:50 AM Narrative 09/01/2024 9:50 AM [employer]SELING CREW SUPERVISOR PROCEDURE: US RETROPERITONEAL COMPLETE DATE/TIME OF [...] AM Nataliia Cooper MD US ORDERABLES * SC DESTR MALIG TRUNK,EXTREM 0.6-1 CM (08/26/2024 9:26 AM DETASSELING CREW SUPERVISOR) Narrative Robb Howell MD - 08/26/2024 9:26 AM [employer]SELING CREW SUPERVISOR Amandeep Helton MD 08/26/2024 9:41 AM [...] procedure well. Amandeep Helton MD [facility] Dermatology Resident Robb Howell MD PROCEDURE/MINOR SURG ICAL ORDERABLES * SC DESTR MALIG TRUNK,EXTREM 0.6-1 CM (08/17/2024 12:25 PM DETASSELING CREW SUPERVISOR) Narrative Robb Howell MD - 08/17/2024 12:25 PM [employer]SELING CREW SUPERVISOR Guy Gómez MD 08/17/2024 12:26 PM [...] Howell MD PROCEDURE/MINOR SURG ICAL ORDERABLES * SC DESTROY PREMALIG LESION, 1ST LESION (08/17/2024 12:25 PM DETASSELING CREW SUPERVISOR) Narrative Robb Howell MD - 08/17/2024 12:25 PM [employer]ASSELING CREW SUPERVISOR Guy Gómez MD 08/17/2024 12:25 PM Diagnosis and treatment options discussed. Cryotherapy (Liquid Nitrogen) to 1 lesion for 4-6 seconds. Number of cycles: 1. Wound care reviewed. Robb Howell MD PROCEDURE/MINOR SURG ICAL ORDERABLES * SC TANGNTL BX SKIN SINGLE LES (08/17/2024 12:24 PM DETASSELING CREW SUPERVISOR) Narrative Robb Howell MD - 08/17/2024 12:24 PM DETASSELING CREW SUPERVISOR Guy Gómez MD 08/17/2024 12:24 PM [...] ICAL ORDERABLES * DERMATOPATHOLOGY (08/17/2024 3:33 AM DETASSELING CREW SUPERVISOR) Only the most recent of4 resultswithin the time period is included. Case Report Dermatopathology Report Case: [id number] Authorizing Provider: Robb Howell MD Collected: 08/17/2024 03:33 AM Ordering Location: [facility] - Received: 08/18/2024 11:05 AM General Dermatology Pathologist: Rose Soto MD Specimen: Skin, left forearm 1:26 PM DETASSELING CREW SUPERVISOR DERMATOPATHOLOGY LABORATORY Final Diagnosis Specimen A. 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 The specimen consists of a shave biopsy measuring 14e63a3 mm. Jar 0. 1:26 PM [facility] DERMATOPATHOLOGY LABORATORY Microscopic Description Specimen A. SKIN, left forearm: The epidermis shows parakeratosis, full thickness disorderly maturation of keratinocytes, mitoses at different levels, and dyskeratotic cells. 1:26 PM [facility] DERMATOPATHOLOGY LABORATORY Disclaimer An external and internal positive and negative controls are appropriate for the histochemical, immunohistochemical and immunofluorescence stain(s) in this case (if any), except where stated explicitly. The performance characteristics of the stain(s) cited in this report were developed and its performance characteristic determined by the Dermatopathology Laboratory at [facility], directed by Dr. Barbara Becker. These tests need not be, and therefore are not, approved by the [place] Food and Drug Administration. The tests are used for clinical purposes. Billing Codes Specimen Charges Stain Charges 21490 1 1:26 PM [facility] DERMATOPATHOLOGY LABORATORY Embedded Images 1:26 PM [facility] DERMATOPATHOLOGY LABORATORY Pathology/Cytolo gy TISSUE SPECIMEN FROM SKIN / Unknown 08/17/2024 3:33 AM DETASSELING CREW SUPERVISOR 08/18/2024 11:05 AM DETASSELING CREW SUPERVISOR Robb Howell MD LAB - PATHOLOGY/CYTO LOGY ORDERABLES DERMATOPATHOLOGY LABORATORY [facility] Department of Dermatology [address], [address] [phone] * CARDIAC PROCEDURE ORDER (07/26/2024) Only the most recent of11 resultswithin the time period is included. Narrative 07/26/2024 Ordered by an unspecified provider. Scanned Document CARDIAC SERVICES ORD ERABLES * SC PM DEVICE PROGR EVAL DUAL (07/19/2024 8:47 AM DETASSELING CREW SUPERVISOR) Narrative Daily Bravo MD - 07/19/2024 8:47 AM DETASSELING CREW SUPERVISOR Daily Bravo MD 07/19/2024 8:49 AM This is a 64 year old male with a H/O sick sinus syndrome . The patient received a Medtronic Advisa DR dual chamber pacemaker on 09/23/16. The patients device is functioning appropriately according to the electrophysiology technician's recommendations with appropriate battery voltage, charge time, shock impedance (s), lead impedance (s) along with pacing and sensing thresholds. The patient will be scheduled for 3 month remote follow-up. Instructed to call with questions or problem. Daily Bravo MD PROCEDURE/MINOR SURG ICAL ORDERABLES * EKG 12-LEAD (07/19/2024 8:11 AM DETASSELING CREW SUPERVISOR) Only the most recent of2 resultswithin the time period is included. Ventricular Rate 71 BPM [facility] Atrial Rate 71 BPM [facility] P-R Interval 244 ms [facility] QRS Duration ms 194 ms [facility] Q-T Interval ms 446 ms [facility] QTC Calculation (Bezet) 484 ms [facility] Calculated R [place] -85 degrees [facility] Calculated T [place] 34 degrees [facility] Interpretation EKG [...] 1:27:54 PM [facility] M[facility] 07/19/2024 8:11 AM DETASSELING CREW SUPERVISOR 07/19/2024 1:27 PM DETASSELING CREW SUPERVISOR Daily Bravo MD ECG ORDERABLES [facility] * CT LUNG CANCER SCREEN LOW DOSE (06/14/2024 1:47 PM DETASSELING CREW SUPERVISOR) Anatomical Region Laterality Modality Chest Computed Tomogra phy 06/14/2024 3:19 PM DETASSELING CREW SUPERVISOR Impressions 06/14/2024 8:13 PM DETASSELING CREW SUPERVISOR Impression: No pulmonary nodules identified. Lung-RADS [...] treated Lung Cancer. > Dictated by Naz Roblreo MD, (residential sales representative). I, Ruel Whitehead MD have personally reviewed and interpreted this examination/study. > Interpreting Provider: Ruel Whitehead MD on 06/14/2024 8:13 PM Narrative 06/14/2024 8:13 PM DETASSELING CREW SUPERVISOR PROCEDURE: CT LUNG SCREEN LOW DOSE [...] > Dictated by Naz Roblero MD, (residential sales representative). IRuel MD have personally reviewed and interpreted this examination/study. > Interpreting Provider: Ruel Whitehead MD on 06/14/2024 8:13 PM Becca Ford MD CT ORDERABLES * SC PM DEVICE INTERROGATE REMOTE, SC PM/ICD REMOTE TECH SERV (06/04/2024 5:04 PM [...] ORDERABLES * BONE DENSITY AXIAL SKELETON(1OR MORE SITES)[id number] (04/21/2024 1:06 PM CDT) Anatomical Region Laterality [...] and below > Dictated by Helen Murray (Supervisor Contact And Service Clerks) 04/21/2024 1:26 PM Jase Zhao DO have [...] and below > Dictated by Helen Murray (Supervisor Contact And Service Clerks) 04/21/2024 1:26 PM I, Jase Dante, DO [...] Davila DO PROCEDURE/MINOR CARABALLO RGICAL ORDERABLES * SC MSR PVR U&/BLADD CAPCTY US NON (02/25/2024 [...] - [facility] [address] Specific [place] UA 1.[address] [facility] [address] Blood [...] ANNIE [address] [place] [address], [facility] [phone] * SC TANGNTL BX SKIN SINGLE LES (01/29/2024 9:43 [...] message if not available. Jodee Jimenez MD [facility] Dermatology Resident, PGY3 Robb Howell MD PROCEDURE/MINOR SURG ICAL ORDERABLES * SC DESTROY PREMALIG LESION, 1ST LESION, SC DESTROY PREMALIG LESION, 2-14 (01/29/2024 9:43 AM CDT) Narrative Robb Howell MD - 01/29/2024 9:43 AM CDT Jodee Jimenez MD 01/29/2024 9:43 AM Diagnosis and treatment options discussed. Cryotherapy (Liquid Nitrogen) to 4 lesions (right ear, left cheek, left forearm, nasal dorsum) for 4-6 seconds each. Number of cycles: 1. Wound care reviewed. Jodee Jimenez MD [facility] Dermatology Resident, PGY3 Robb Howell MD PROCEDURE/MINOR SURG ICAL ORDERABLES * SC PM DEVICE PROGR EVAL DUAL (01/12/2024 9:59 AM CDT) Narrative Daily Bravo MD - 01/12/2024 9:59 AM CDT Daily Bravo MD 01/12/2024 10:01 AM This is a 64 year old male with a H/O SSS. The patient received a Medtronic Advisa DR The patients device is functioning appropriately according to the electrophysiology technician's recommendations with appropriate battery voltage, charge time, shock impedance (s), lead impedance (s) along with pacing and sensing thresholds. The patient will be scheduled for 3 month follow-up. Instructed to call with questions or problem. Daily Bravo MD PROCEDURE/MINOR SURG ICAL ORDERABLES * (ABNORMAL) PTH INTACT (09/28/2023 9:09 AM DETASSELING CREW SUPERVISOR) PTH Intact 104(H) 15 - 65 pg/mL [facility] INSURANCE BILL Comment:FASTING 09/28/2023 9:09 AM DETASSELING CREW SUPERVISOR 09/28/2023 Narrative Resulting Agency Comment Lab Testing performed at: [email or web address] [address] [facility] [phone] Garry Tracey MD LAB - CHEMISTRY [place] [facility] INSURANCE BILL [address] [place] [address] * PTH RELATED PEPTIDE (09/28/2023 9:09 AM DETASSELING CREW SUPERVISOR) PTH Related Peptide <2.0 pmol/L [facility] INSURANCE BILL Comment: This test was developed and its performance characteristics determined by [email or web address]. It has not been cleared or approved [...] contact the laboratory. FASTING 09/28/2023 9:09 AM DETASSELING CREW SUPERVISOR 09/28/2023 Narrative [facility] INSURANCE BILL - 10/03/2023 7:10 AM DETASSELING CREW SUPERVISOR A courtesy copy of this report has been sent to [phone] Resulting Agency Comment Lab Testing performed at: [facility] [address] [place] [phone] Garry Tracey MD LAB - CHEMISTRY [place] Performing Organization Address City/[facility]/ZIP Co de Phone Number [facility] INSURANCE BILL [address] [place] [address] * VITAMIN D 1,25 DIHYDROXY (09/28/2023 9:09 AM DETASSELING CREW SUPERVISOR) Pathologist [facility] Calcitriol (1,25 di-OH Vit D) 44.9 24.8 - 81.5 pg/mL [facility] INSURANCE BILL Comment:FASTING 09/28/2023 9:09 AM DETASSELING CREW SUPERVISOR 09/28/2023 Narrative Resulting Agency Comment Lab Testing performed at: [facility] [phone] Garry Tracey MD LAB - CHEMISTRY [place] Performing Organization Address City/[facility]/ZIP Co de Phone Number [facility] INSURANCE BILL [address] [place] [address] * (ABNORMAL) BASIC METABOLIC PANEL (CALCIUM TOTAL) (09/28/2023 9:09 AM DETASSELING CREW SUPERVISOR) Glucose 169(H) 70 - 99 mg/dL [facility] [...] [facility] INSURANCE BILL Comment:FASTING 09/28/2023 9:09 AM DETASSELING CREW SUPERVISOR 09/28/2023 Narrative Resulting Agency Comment [facility] performed [facility]: [facility] [address] [facility] [phone] Garry Tracey MD LAB - CHEMISTRY [place] Performing Organization Address [facility] Co de Phone Number [facility] INSURANCE BILL [address] [place] [address] * (ABNORMAL) LIPID PROFILE (09/28/2023 9:09 AM DETASSELING CREW SUPERVISOR) Only the most recent of4 resultswithin the [...] obtained for this observation. 09/28/2023 9:09 AM DETASSELING CREW SUPERVISOR 09/28/2023 Narrative Resulting Agency Comment Lab Testing performed at: [facility] [address] [facility] [phone] Garry Tracey MD LAB - CHEMISTRY [place] Performing Organization Address [facility] Co de Phone Number [facility] INSURANCE BILL [address] [place] [address] * PROC UROFLOWMETRY (09/25/2023 10:58 AM DETASSELING CREW SUPERVISOR) Narrative Santiago Rodgers MA - 09/25/2023 10:58 AM DETASSELING CREW SUPERVISOR Santiago Rodgers MA 10/02/2023 7:37 AM Voiding time: 34.3s Flow time: 33.6s Time to peakflow: 12.5s Peak flowrate: 14.2ml/s Average flowrate: 6.7ml/s Intervals:2 Voided volume: 226ml Josy Davila DO PROCEDURE/MINOR CARABALLO RGICAL ORDERABLES * SC MSR PVR U&/BLADD CAPCTY US NON (09/25/2023 10:58 AM DETASSELING CREW SUPERVISOR) Santiago Tesfaye MA - 09/25/2023 10:58 AM DETASSELING CREW SUPERVISOR Santiago Rodgers MA 10/02/2023 7:37 AM [id number] Josy Davila DO PROCEDURE/MINOR CARABALLO RGICAL ORDERABLES * SC POLYSOM 6/>YRS CPAP 4/> PARM (09/02/2023 10:01 AM DETASSELING CREW SUPERVISOR) Marcelo Tucker MD - 09/02/2023 10:01 AM DETASSELING CREW SUPERVISOR Marcelo Lim MD 09/02/2023 10:02 AM [facility] Accredited by the [employer] [employer] [facility], First Floor [address] [place] [address] Telephone : [phone] Medical Records Patient Name: Basilio Riley : 1960 Date of Study: 09/01/2023 Referring Physician: Dina Cloud PA-C Type of Montage: Respiratory Scoring System: [facility] SPLIT NIGHT POLYSOMNOGRAM INTERPRETATION 09/01/2023 Procedure: The polysomnogram was performed with a marketing technologist in attendance. Frontal, central, and temporal [...] daily, Disp: , Rfl: Continuous Blood Gluc Thermoforming Machine Operator (Dexcom G7 Thermoforming Machine Operator) SHANE, Use 1 kit as directed, Disp: 1 Each, Rfl: 0 Continuous Blood Gluc Sensor (Dexcom G7 Sensor) [facility], Use 1 Each every 10 days, Disp: [...] 4 vitamin D, ergocalciferol, (DRISDOL) 1.25 MG (45821 UT) capsule, Take 1 (one) capsule by [...] total diagnostic sleep time. Snoring Profile: Frequent, [id number] snoring was detected during this study. Periodic [...] dental evaluation for bruxism Marcelo Lim MD, [facility], [facility], [facility] [employer] Tech, [facility] Professor of Internal Medicine Adjunct Drosophere Operator of Neurology Division of Pulmonary, Critical Care, and Sleep Medicine [facility] [employer] This note was electronically signed on 09/02/2023. Amie Payne APNP-IMMUNOLOGY TEACHER PROCEDUR E/MINOR SURGICAL ORDERABLES * ECHO COMPLETE (07/03/2023 10:51 AM DETASSELING CREW SUPERVISOR) BSA 2.2251602 m2 [facility] CV FUJ I PACS LV [...] F UJI PACS IVS/LVPW 1.168 [facility] CV [facility] I PACS LV mass 2D 288.551 [...] LA vol BP 36.449 mL [facility] CV [facility] I PACS LVOT pk andrei 1.00 [...] Index 16 ml/m2 SSM CV FUJI PACS [id number] 6.965 cm SSM CV FUJ I PACS [id number] 6.988 cm SSM CV FUJ I PACS Prox Asc Ao Diameter Index 1.611 cm SSM CV FUJI PACS LA Size 4.013 cm SSM CV FUJ I PACS LVIDs index 1.10 1.3 - 2.1 cm/m2 SSM CV FUJI PACS LV LVIDd index 1.60 2.2 - 3.0 cm/m2 SSM CV FUJI PACS Anatomical Region Laterality Modality Ultrasound Narrative 07/03/2023 12:39 PM DETASSELING CREW SUPERVISOR Left Ventricle: Left ventricle size is normal. [...] Implant Device Check (Office) (07/03/2023 10:43 AM DETASSELING CREW SUPERVISOR) Narrative RobertMorris, ESTHER-IMMUNOLOGY TEACHER - 07/03/2023 10:43 AM DETASSELING CREW SUPERVISOR RobertMorris APRN-ROBIN 07/03/2023 10:48 AM Basilio Riley [...] hesitate to contact me. Morris Lara Jones APRN-IMMUNOLOGY TEACHER PROCEDURE/NM NOR SURGICAL ORDERABLES * CT CHEST WO CONT AND HIRES (06/18/2023 12:21 PM DETASSELING CREW SUPERVISOR) Anatomical Region Laterality Modality Chest Computed Tomogra phy 06/18/2023 3:54 PM DETASSELING CREW SUPERVISOR Impressions 06/18/2023 11:48 PM DETASSELING CREW SUPERVISOR Impression: 1.Mild peripheral groundglass in both lungs predominantly in the lower lobes could represent desquamative interstitial pneumonia. No reticulations or bronchiectasis. No air trapping. > Dictated by Janet Mills DO (residential sales representative). I, Perico Fermin MD have personally reviewed and interpreted this examination/study. > Interpreting Provider: Perico Fermin MD on 06/18/2023 11:48 PM Narrative 06/18/2023 11:48 PM DETASSELING CREW SUPERVISOR PROCEDURE: CT CHEST WO CONT AND HIRES, DATE/TIME OF EXAM: 06/18/2023 12:23 PM, LOCATION [facility] INDICATION: R93.89: Abnormal CT of [...] DATE/TIME OF EXAM: 06/18/2023 12:23 PM, LOCATION [facility] INDICATION: R93.89: Abnormal CT of [...] > Dictated by Janet Mills DO (residential sales representative). I, Perico Fermin MD have personally reviewed and interpreted this examination/study. > Interpreting Provider: Perico Fermin MD on 06/18/2023 11:48 [address] MD CT ORDERABLES * Complete PFT w/wo Bronchodilator [facility] PFT Lab (06/18/2023 11:59 AM DETASSELING CREW SUPERVISOR) Impressions Argenis Sadler MD - 06/18/2023 11:59 AM DETASSELING CREW SUPERVISOR [facility] DEPARTMENT OF PULMONARY, CRITICAL CARE, AND SLEEP [...] of Pulmonary, Critical Care and Sleep Medicine [facility] [employer] I have personally reviewed pulmonary function test data and finding. I concur with fellow's note. MD Kiara Aldana Setu K, MD - 06/18/2023 11:59 AM DETASSELING CREW SUPERVISOR Hay Amezquita MD 06/19/2023 4:10 PM Becca Ford MD RESPIRATORY THERAPY ORDERABLES * SC PM DEVICE INTERROGATE REMOTE, SC PM/ICD REMOTE TECH SERV (05/23/2023 6:27 PM [...] Davila DO PROCEDURE/MINOR CARABALLO RGICAL ORDERABLES * SC MSR PVR U&/BLADD CAPCTY US NON (05/21/2023 [...] is included. Hemoglobin A1c POCT 7.4 % [address] BLOOD SPECIMEN / Unknown 04/02/2023 9:16 AM CDT Garry Tracey MD LAB - POINT OF CARE ORDERABLES [address] [place] [address], [facility] [phone] * SC PM/ICD REMOTE TECH SERV, SC PM DEVICE INTERROGATE REMOTE (01/31/2023 12:45 AM CDT) Narrative Chari Parada MD - 01/31/2023 12:45 AM CDT Chari Parada MD 01/31/2023 12:52 AM Basilio Riley underwent remote monitoring for his PPM. Interrogation was performed with results as follows: Device: Medtronic PPM Mode: AAI-DDD Battery: 2.98 Volts; Estimated longevity 4.5 years Percent Paced: Total ORNAMENTAL METAL ERECTOR APPRENTICE 0.1% (MVP On) -VS 99.9% -ORNAMENTAL METAL ERECTOR APPRENTICE < 0.1% AP-VS < 0.1% AP-ORNAMENTAL METAL ERECTOR APPRENTICE < 0.1% Sensing: P-waves 3.8 mV; R-waves [...] hesitate to contact me. Chari Parada MD PROCEDURE/NM NOR SURGICAL ORDERABLES * SC CYSTOURETHROSCOPY (01/15/2023 4:28 PM CDT) Narrative LolaJosy [...] Davila DO PROCEDURE/MINOR CARABALLO RGICAL ORDERABLES * SC MSR PVR U&/BLADD CAPCTY US NON (01/15/2023 12:18 PM CDT) Josy Almaguer, DO - 01/15/2023 12:18 PM CDT Catalina Naranjo LPN 01/15/2023 12:19 PM PVR = 13 mL Josy Davila DO PROCEDURE/MINOR CARABALLO RGICAL ORDERABLES * SC ELECTRO-UROFLOWMETRY, FIRST (01/15/2023 12:13 PM CDT) Josy [...] DATE/TIME OF EXAM: 01/15/2023 8:41 AM, LOCATION [facility] INDICATION: N50.819: Testicular pain, unspecified [...] CONTRAST, DATE/TIME OF EXAM:01/15/2023 8:41 AM, LOCATION [facility] INDICATION: N50.819: Testicular pain, unspecified [...] mL/min/1.7 3 m2 01/15/2023 8:27 AM CDT [facility] Blood BLOOD SPECIMEN / Unknown 01/15/2023 8:17 AM CDT 01/15/2023 8:27 AM CDT [facility] Lola DO LAB - POINT OF CAR E ORDERABLES [facility] [address] [place] [address] * SC PM DEVICE PROGR EVAL SNGL (01/01/2023 9:48 [...] PERIPHERAL NEUROPATHY PANEL (12/30/2022 2:45 PM CDT) [facility] Signature Peripheral Neuropathy Panel See Scanned Report 01/25/2023 10:36 AM CDT [facility] Blood BLOOD SPECIMEN / Unknown Lab Venipuncture / Unknown 12/30/2022 2:45 PM CDT 12/30/2022 3:13 PM CDT Meredith Weiss MD LAB - SEROLOGY ORDER YADIRA [facility] [phone] * SC INJECT NERV BLCK,ILIOINGU/ILIOHYP (11/26/2022 10:32 AM CDT) Narrative Josy Davila DO - 11/26/2022 10:32 AM CDT Josy Davila DO 11/26/2022 10:47 AM DOS: 11/26/2022 Procedure: spermatic cord block, illiohypogastric nerve block [id number] The left testicle was tender to [...] Document LAB - PATHOLOGY/CYTO LOGY ORDERABLES * SC BLDR INSTLJ ANTICARCINOGENIC AGT (10/01/2022 10:32 AM DETASSELING CREW SUPERVISOR) Narrative Josy Davila DO - 10/01/2022 10:32 AM DETASSELING CREW SUPERVISOR Josy Davila DO 10/01/2022 10:34 AM DOS: [...] Davila DO PROCEDURE/MINOR CARABALLO RGICAL ORDERABLES * SC IRRIGATION OF BLADDER (09/17/2022 11:07 AM DETASSELING CREW SUPERVISOR) Josy Almaguer DO - 09/17/2022 11:07 AM DETASSELING CREW SUPERVISOR Josy Davila DO 09/17/2022 11:24 AM DOS: [...] Davila DO PROCEDURE/MINOR CARABALLO RGICAL ORDERABLES * SC PM DEVICE INTERROGATE REMOTE, SC PM/ICD REMOTE TECH SERV (08/19/2022 4:36 PM DETASSELING CREW SUPERVISOR) Narrative Reid Da Silva MD - 08/19/2022 4:36 PM DETASSELING CREW SUPERVISOR Reid Da Silva MD 08/19/2022 4:40 PM [...] URINE CULTURE (EXTERNAL RESULT ENTRY) (12/26/2021) Pathologist [facility] Urine Culture (EXTERNAL) none Urine URINE / Unknown 12/26/2021 Historical Provider LAB - MICROBIOLOG Y ORDERABLES * URINALYSIS (EXTERNAL RESULT ENTRY) (12/26/2021) Pathologist [facility] pH UA (EXTERNAL RESULT) 5.5 Specific [place] Urine (EXTERNAL RESULT) 1.028 Protein UA (EXTERNAL RESULT) 1+ Blood UA (EXTERNAL RESULT) Negative Nitrite UA (EXTERNAL RESULT) Negative RBC UA (EXTERNAL RESULT) none /HPF WBC UA (EXTERNAL RESULT) 0-5 /HPF Leukocyte Esterase (EXTERNAL RESULT) Bacteria UA (EXTERNAL RESULT) none Urine URINE / Unknown 12/26/2021 Historical Provider LAB - CHEMISTRY O RDERABLES * CREATININE RAND UR (EXTERNAL RESULT ENTRY) (12/26/2021) Pathologist [facility] Creatinine Random Urine (EXTERNAL RESULT) 113.4 mg/dl Urine URINE / Unknown 12/26/2021 Historical Provider LAB - CHEMISTRY O RDERABLES * PTH (EXTERNAL RESULT ENTRY) (12/26/2021) Pathologist [facility] PTH Intact (EXTERNAL RESULT) 78 pg/ml Blood BLOOD SPECIMEN / Unknown 12/26/2021 Historical Provider LAB - CHEMISTRY O RDERABLES * VITAMIN D HYDROXY (EXTERNAL RESULT) (12/26/2021) Pathologist [facility] Vitamin D Hydroxy (External Result) 36.1 Blood 12/26/2021 Historical Provider LAB - CHEMISTRY O RDERABLES * COMP MET PANEL (EXTERNAL RESULT ENTRY) (12/26/2021) Pathologist [facility] Glucose (EXTERNAL) 273 mg/dL Sodium (EXTERNAL RESULT) [...] LIPID PROFILE (EXTERAL RESULT ENTRY) (12/26/2021) Pathologist [facility] Cholesterol (EXTERNAL RESULT) 90 mg/dL Triglycerides (EXTERNAL RESULT) 611 mg/dL HDL (EXTERNAL RESULT) 23 mg/dL LDL (EXTERNAL RESULT) unable to calculate mg/dL VLDL (EXTERNAL RESULT) unable to calculate mg/dL Chol HDL Ratio (External Result) Blood BLOOD SPECIMEN / Unknown 12/26/2021 Historical Provider LAB - CHEMISTRY O RDERABLES * HEMOGLOBIN A1C (EXTERNAL RESULT ENTRY) (12/26/2021) Pathologist [facility] Hemoglobin A1c (EXTERNAL RESULT) 9.0 % Blood BLOOD SPECIMEN / Unknown 12/26/2021 Historical Provider MD LAB - CHEMISTRY O RDERABLES * SC INTMD WND REPAIR FACE,FACIAL <2.5CM, SC EXC SKIN BENIG 1.1-2CM FACE,FACIAL (12/16/2021 6:43 [...] Howell MD PROCEDURE/MINOR SURG ICAL ORDERABLES * SC DESTR MALIG TRUNK,EXTREM 1.1-2 CM (12/16/2021 6:42 [...] Implant Device Check (Office) (10/07/2021 12:28 PM DETASSELING CREW SUPERVISOR) Narrative Laina Barclay APRN-CNP - 10/07/2021 12:28 PM DETASSELING CREW SUPERVISOR Laina Barclay APRN-CNP 10/07/2021 12:39 PM Basilio [...] Laina RODGERS PROCEDURE/MINOR S URGICAL ORDERABLES * SC TANGNTL BX SKIN EA SEP ADDL, SC TANGNTL BX SKIN EA SEP ADDL, SC TANGNTL BX SKIN SINGLE LES (09/13/2021 12:21 PM DETASSELING CREW SUPERVISOR) Narrative Robb Howell MD - 09/13/2021 12:21 PM DETASSELING CREW SUPERVISOR Betty Gilmore DO 09/13/2021 12:22 PM Risks, [...] a patient labeled container and sent to [facility]. Patient agrees to phone call for results and message if not available. Betty Gilmore DO Robb Howell MD PROCEDURE/MINOR SURG ICAL ORDERABLES * SC CYSTOURETHROSCOPY (03/10/2021 7:46 PM CDT) Narrative Annie [...] FEM/CHLD HYPOGNDL MALE (02/28/2021 9:45 AM CDT) [facility] Testosterone Total LC-MS 269.1 264.0 - 916.0 ng/dL [facility] INSURANCE BILL Comment: This [facility] LC/MS-MS method is currently certified by the CDC Hormone Standardization Program (HoSt). Adult male reference interval is based on a population of healthy nonobese males (BMI <30) between 19 and 39 years old. Shannan, et.al. JCEM 2017,102;3988-7839. PMID: [id number]. This test was developed and its performance characteristics determined by [facility]. It has not been cleared or approved by the Food and Drug Administration. FASTING 02/28/2021 9:45 AM CDT 02/28/2021 Narrative Resulting Agency Comment Lab Testing performed at: [address] [phone] Annie Mcghee APRN-IMMUNOLOGY TEACHER LAB - ASSISTANT RESTAURANT GENERAL MANAGER RY ORDERABLES [facility] INSURANCE BILL [address] [place] [address] * CARDIAC EKG ORDER (07/11/2020 11:45 AM DETASSELING CREW SUPERVISOR) Narrative 07/11/2020 11:45 AM DETASSELING CREW SUPERVISOR Ordered by an unspecified provider. Scanned Document CARDIAC SERVICES ORD ERABLES * (ABNORMAL) GLUCOSE - POINT OF CARE (07/10/2020 4:26 PM DETASSELING CREW SUPERVISOR) [facility] Glucose WB/POC 216(H) 70 - 115 mg/dL 07/10/2020 4:54 PM DETASSELING CREW SUPERVISOR [facility] Specimen Type Arterial/C apillary 07/10/2020 4:54 PM DETASSELING CREW SUPERVISOR [facility] Blood BLOOD SPECIMEN / Unknown 07/10/2020 4:26 PM DETASSELING CREW SUPERVISOR 07/10/2020 4:54 PM DETASSELING CREW SUPERVISOR Eloina Phillips MD LAB - POINT OF CARE ORDERABLES [facility] [address] [place] [address], [facility] [phone] * XR CHEST 1VW PORTABLE (07/10/2020 4:22 PM DETASSELING CREW SUPERVISOR) Anatomical Region Laterality Modality Chest Radiographic Veronica ging 07/10/2020 4:25 PM DETASSELING CREW SUPERVISOR Impressions 07/11/2020 8:20 AM DETASSELING CREW SUPERVISOR IMPRESSION: No acute pulmonary process. Cardiac device as above. Dictated by Janet Mills DO (residential sales representative). Dr. TOMMIE Zhao MD have personally reviewed and interpreted this examination/study. This report was electronically signed by TOMMIE STORY MD on 07/11/2020 8:20 AM . Narrative 07/11/2020 8:20 AM DETASSELING CREW SUPERVISOR ORDER DATE: 07/10/2020 4:22 PM EXAMINATION: XR [...] above. Dictated by Janet Mills DO (residential sales representative). Dr. TOMMIE Zhao MD have personally reviewed and interpreted this examination/study. This report was electronically signed by TOMMIE STORY MD on07/11/2020 8:20 AM . Amandeep Parker MD DIAGNOSTIC IMAGING O RDERABLES * PTT [facility] (07/10/2020 3:50 PM DETASSELING CREW SUPERVISOR) APTT 27.8 23.0 - 38.4 Seconds 07/10/2020 4:14 PM DETASSELING CREW SUPERVISOR [facility] Comment:Suggested therapeuti c range for full dose I.V. unfractionated heparin therapy for venous thromboembolism is 71 to 109 seconds. Blood BLOOD SPECIMEN / Unknown Venipuncture / Unknown 07/10/2020 3:50 PM DETASSELING CREW SUPERVISOR 07/10/2020 4:05 PM DETASSELING CREW SUPERVISOR Amandeep Parker MD LAB - COAGULATION OR DERABLES Performing Organization Address [facility] Co de Phone Number [address] [address], [facility] [phone] * PT-INR [facility] (07/10/2020 3:50 PM DETASSELING CREW SUPERVISOR) PT 12.9 12.1 - 14.8 Seconds 07/10/2020 4:21 PM DETASSELING CREW SUPERVISOR [facility] INR 1.0 See Comment 07/10/2020 4:21 PM DETASSELING CREW SUPERVISOR [facility] Comment:The suggested therap eutic range for standard coumadin (warfarin) therapy is an INR of 2.0-3.0. For high-risk patients (Mechanical Mitral Valve Prosthesis, etc.), the suggested prophylactic therapeutic range is an INR of 2.5-3.5. Blood BLOOD SPECIMEN / Unknown Venipuncture / Unknown 07/10/2020 3:50 PM DETASSELING CREW SUPERVISOR 07/10/2020 4:05 PM DETASSELING CREW SUPERVISOR Amandeep Parker MD LAB - COAGULATION OR DERABLES Performing Organization Address [facility] Co de Phone Number [address] [address], [facility] [phone] * TROPONIN I (07/10/2020 3:50 PM DETASSELING CREW SUPERVISOR) Troponin I 0.015 <0.032 ng/mL 07/10/2020 4:28 PM DETASSELING CREW SUPERVISOR [facility] Blood BLOOD SPECIMEN / Unknown Venipuncture / Unknown 07/10/2020 3:50 PM DETASSELING CREW SUPERVISOR 07/10/2020 3:53 PM DETASSELING CREW SUPERVISOR Amandeep Parker MD LAB - CHEMISTRY ORDE RABLES [facility] [address] [place] [address], [facility] [phone] * (ABNORMAL) DIFFERENTIAL MANUAL (07/10/2020 3:50 PM DETASSELING CREW SUPERVISOR) WBC (corrected for NRBC) 15.9 10 3/uL 07/10/2020 4:45 PM [facility] Total Cell Count 100 07/10/2020 4:45 PM [facility] Neutrophils Absolute Manual 10.97(H) 1.60 - 7.00 10 3/uL 07/10/2020 4:45 PM [facility] Comment:(BANDS+SEGS) x WBC = NEUT # (ANC) Lymphocyte Absolute Manual 3.66(H) 0.80 - 2.90 10 3/uL 07/10/2020 4:45 PM [facility] Monocytes Absolute Manual 1.11(H) 0.14 - 0.66 10 3/uL 07/10/2020 4:45 PM [facility] Eosinophils Absolute Manual 0.16 0.00 - 0.22 10 3/uL 07/10/2020 4:45 PM [facility] Neutrophil % Manual 69(H) 30 - 60 % 07/10/2020 4:45 PM [facility] Lymphocyte % Manual 23 20 - 45 % 07/10/2020 4:45 PM [facility] Monocytes % Manual 7 2 - 10 % 07/10/2020 4:45 PM [facility] Eosinophils % Manual 1 1 - 6 % 07/10/2020 4:45 PM [facility] Platelet Estimate Adequate Adequate 07/10/2020 4:45 PM [facility] RBC Morphology Normal 07/10/2020 4:45 PM [facility] Blood BLOOD SPECIMEN / Unknown Venipuncture / Unknown 07/10/2020 3:50 PM DETASSELING CREW SUPERVISOR 07/10/2020 3:53 PM DETASSELING CREW SUPERVISOR Amandeep Parker MD LAB - HEMATOLOGY ORD ERABLES [facility] [address] [place] [address], [facility] [phone] * B-TYPE NATRIURETIC PEPTIDE (07/10/2020 3:50 PM DETASSELING CREW SUPERVISOR) [facility] BNP <10 See Comment pg/mL 07/10/2020 4:28 PM [facility] Comment: A decision threshold of 100 [...] Unknown Venipuncture / Unknown 07/10/2020 3:50 PM DETASSELING CREW SUPERVISOR 07/10/2020 3:53 PM DETASSELING CREW SUPERVISOR Amandeep Parker MD LAB - CHEMISTRY SERENA PAGE [facility] Organization Address City/State/ZIP Co de Phone Number [facility] [address] [place] [phone], [facility] [phone] * (ABNORMAL) COMPREHENSIVE METABOLIC PANEL (07/10/2020 3:50 PM DETASSELING CREW SUPERVISOR) [facility] BUN 39(H) 7 - 26 mg/dL 07/10/2020 4:24 PM [facility] Creatinine 1.5(H) 0.6 - 1.2 mg/dL 07/10/2020 4:24 PM [facility] Sodium 138 136 - 145 mmol/L 07/10/2020 4:24 PM [facility] Potassium 4.6(H) 3.5 - 4.5 mmol/L 07/10/2020 4:24 PM [facility] Chloride 100 98 - 107 mmol/L 07/10/2020 4:24 PM [facility] CO2 25 22 - 29 mmol/L 07/10/2020 4:24 PM [facility] Glucose 275(H) 70 - 115 mg/dL 07/10/2020 4:24 PM [facility] Calcium 11.1(H) 8.4 - 10.2 mg/dL 07/10/2020 4:24 PM [facility] Protein Total 8.7(H) 6.0 - 8.3 g/dL 07/10/2020 4:24 PM [facility] Albumin 4.1 3.4 - 5.0 g/dL 07/10/2020 4:24 PM [facility] Bilirubin Total 0.3 0.2 - 1.2 mg/dL 07/10/2020 4:24 PM [facility] Alkaline Phosphatase 134 40 - 150 Units/L 07/10/2020 4:24 PM [facility] ALT 17 0 - 55 Units/L 07/10/2020 4:24 PM [facility] AST 12 5 - 34 Units/L 07/10/2020 4:24 PM [facility] Anion Gap 18 8 - 18 07/10/2020 4:24 PM [facility] BUN/Creatinine Ratio 26(H) 7 - 23 07/10/2020 4:24 PM [facility] Osmolality Calculated 305(H) 270 - 300 mOsm/kg 07/10/2020 4:24 PM [facility] Albumin/Globulin Ratio 0.9(L) 1.1 - 2.3 07/10/2020 4:24 PM [facility] eGFR 48(L) >60 mL/min/1.7 3 m2 07/10/2020 4:24 PM [facility] Blood BLOOD SPECIMEN / Unknown Venipuncture / Unknown 07/10/2020 3:50 PM DETASSELING CREW SUPERVISOR 07/10/2020 3:53 PM DETASSELING CREW SUPERVISOR Amandeep Parker MD LAB - CHEMISTRY SERENA PAGE [facility] [address] [place] [address], [facility] [phone] * PHOSPHORUS BLOOD (07/10/2020 3:50 PM DETASSELING CREW SUPERVISOR) Phosphorus 3.0 2.3 - 4.7 mg/dL 07/10/2020 4:24 PM [facility] Blood BLOOD SPECIMEN / Unknown Venipuncture / Unknown 07/10/2020 3:50 PM DETASSELING CREW SUPERVISOR 07/10/2020 3:53 PM DETASSELING CREW SUPERVISOR Amandeep Parker MD LAB - CHEMISTRY SERENA PAGE [address] [address], [place] [phone] * MAGNESIUM BLOOD (07/10/2020 3:50 PM DETASSELING CREW SUPERVISOR) Magnesium 2.1 1.6 - 2.6 mg/dL 07/10/2020 4:24 PM DETASSELING CREW SUPERVISOR [facility] Blood BLOOD SPECIMEN / Unknown Venipuncture / Unknown 07/10/2020 3:50 PM DETASSELING CREW SUPERVISOR 07/10/2020 3:53 PM DETASSELING CREW SUPERVISOR Amandeep Parker MD LAB - CHEMISTRY SERENA PAGE Performing Organization Address City/[facility]/ZIP Co de Phone Number [address] [address], [place] [phone] * XR LUMBAR SPINE 2 OR 3VW [...] Report dictated by Judd Sanchez DO (residential sales representative). I, Dr. UZMA BIGGS have personally reviewed [...] Report dictated by Judd Sanchez DO (residential sales representative). IDr. UZMA have personally reviewed and interpreted this examination/study. This report was electronically signed by UZMA BIGGS on 12/13/2018 1:24 PM . Jamia Esteves MD DIAGNOSTIC IMAGING O RDERABLES * XR SPINE ENTIRE 2 OR 3VW (09/23/2018 1:36 PM DETASSELING CREW SUPERVISOR) Anatomical Region Laterality Modality Radiographic Veronica ging 09/23/2018 2:54 PM DETASSELING CREW SUPERVISOR Impressions 09/24/2018 3:41 PM DETASSELING CREW SUPERVISOR IMPRESSION: 1.Inadequately visualized cervical spine. The visualized upper cervical levels are grossly unremarkable. 2.Mild thoracic levoscoliosis. 3.Redemonstrated degenerative lumbar disc/joint disease. This report was approved by Robson Dumont on 09/24/2018 3:[address] NAYE Zhao have personally reviewed and interpreted this examination/study. This report was electronically signed by NAYE HUNT on 09/24/2018 3:41 PM . Narrative 09/24/2018 3:41 PM DETASSELING CREW SUPERVISOR EXAMINATION: Entire spine series, 2 or 3 [...] with back pain status post L4-L5 and L5-F7aiati block and L3 vertebroplasty COMPARISON: Lumbar CT [...] ANGIO BRAIN AND NECK (08/10/2017 9:23 AM DETASSELING CREW SUPERVISOR) Anatomical Region Laterality Modality Head Other Impressions 08/10/2017 11:22 AM DETASSELING CREW SUPERVISOR IMPRESSION: 1. No acute intracranial hemorrhage. 2. [...] 11:22 AM . Narrative 08/10/2017 11:22 AM DETASSELING CREW SUPERVISOR EXAMINATION: 1. Computed tomographic (CT) angiography of [...] representinfection. This report was approved by Jameson Esuqivel MD on 08/10/2017 10:59 AM . I, Dr. KENAN MATTHEW M.D. have personally reviewed and interpreted thisexamination/study. This report was electronically signed by KENAN MATTHEW M.D. on 08/10/201711:22 AM . Carlos Delgado MD CT ORDERABLES * (ABNORMAL) CREATININE BLOOD - POCT (IP) [facility] (08/10/2017) Creatinine POCT 1.77(A) 0.3 - 1.3 mg/dL [facility] eGFR POCT 43(A) 60 ml/min [facility] 08/10/2017 Carlos Delgado MD LAB - POINT OF CARE ORDERABLES [place] [id number] [place], [place] [id number] [place] [address] * FL MYELOGRAM LUMBAR (07/20/2017 2:19 PM DETASSELING CREW SUPERVISOR) Anatomical Region Laterality Modality Spine Other Impressions 07/20/2017 3:26 PM DETASSELING CREW SUPERVISOR IMPRESSION: 1. Successful lumbar myelogram under fluoroscopic guidance at L3-L4. This report was approved by Jose Urias on 07/20/2017 2:53 PM . I, Dr. KENAN MATTHEW M.D. have personally reviewed and interpreted this examination/study. This report was electronically signed by KENAN MATTHEW M.D. on 07/20/2017 3:26 PM . Narrative 07/20/2017 3:26 PM DETASSELING CREW SUPERVISOR EXAMINATION: Lumbar myelogram HISTORY: radiculopathy TECHNIQUE: The [...] at L3-L4. This report was approved by [facility] on 07/20/2017 2:[address] KENAN Zhao M.D. have personally reviewed and interpreted thisexamination/study. This report was electronically signed by KENAN MATTHEW M.D. on 07/20/20173:26 PM . Clary Burgess MD FLUOROSCOPY ORDERABL ES * CT LUMBAR POST MYELOGRAM (07/20/2017 2:15 PM DETASSELING CREW SUPERVISOR) Anatomical Region Laterality Modality Other Impressions 07/20/2017 3:26 PM DETASSELING CREW SUPERVISOR IMPRESSION: 1. Degenerative disease of the lower lumbar spine with moderate to severe central canal stenosis at L4-L5 and L5-S1. This report was approved by [facility] on 07/20/2017 3:[address] KENAN Zhao M.D. have personally reviewed and interpreted this examination/study. This report was electronically signed by KENAN MATTHEW M.D. on 07/20/2017 3:26 PM . Narrative 07/20/2017 3:26 PM DETASSELING CREW SUPERVISOR EXAMINATION: Computed tomography (CT) of the lumbar [...] * (ABNORMAL) GLUCOSE ACCUCHECK (07/20/2017 10:19 AM DETASSELING CREW SUPERVISOR) Glucose, Fingerstick 139(H) 70-115mg/d L mg/dL Alvaro RyanCATHLEEN) Comment:System Archive Analyst: MARANDA KIM 07/20/2017 10:1 9 AM DETASSELING CREW SUPERVISOR Clary Burgess MD LAB - CHEMISTRY SERENA PAGE [facility] Organization Address City/State/ZIP Co de Phone Number [facility] EPIFANIO (CATHLEEN) * XR LUMBAR SPINE 4VW OR MORE (06/18/2017 2:50 PM DETASSELING CREW SUPERVISOR) Anatomical Region Laterality Modality Spine Other Impressions 06/25/2017 7:40 AM DETASSELING CREW SUPERVISOR IMPRESSION: Patient is status post L3 vertebroplasty. [...] normal. Dictated by Perri Dey MD (residential sales representative). Dr. ELEUTERIO Zhao MD have personally reviewed and interpreted this examination/study. This report was electronically signed by ELEUTERIO GRIMALDO MD on 06/25/2017 7:40 AM . Narrative 06/25/2017 7:40 AM DETASSELING CREW SUPERVISOR EXAMINATION: XR SPINE LUMBAR 4 VW MIN [...] arenormal. Dictated by Perri Dey MD (residential sales representative). Dr. ELEUTERIO Zhao MD have personally reviewed and interpreted thisexamination/study. This report was electronically signed by ELEUTERIO GRIMALDO MD on 06/25/20177:40 AM . Clary Burgess MD [facility] Care Teams Tool Machine Setup Operator Relationship Specialty Start Date End Date Dina Cloud PA-C [address] [place] [phone] PCP - General Physician Inventory Technician 07/10/20
--- OUTSIDE RECORDS SUMMARY | 2024-09-16 18:40 | XMS_ITS | Encounter Summary ---
Author Organization [facility] Address [address] [place] [address] Care Team Providers Care Radio Installer Automobile Name Role Phone Dina Cloud PA-C Primary Care Provider Encounter Details Date Type Department Care Team (Late st Contact Info) Description 01/28/2023 Telephone [facility] - Centralized Scheduling [address] [place] [phone] Garry Tracey MD [address] [phone] Social History Tobacco Use Types Packs/Day Years [...] glucose levels for 13 days ?? Verified: [phone] Lexi Caregiver documented in this encounter Plan of Treatment Upcoming Encounters Date Type Department Care Team (Late st Contact Info) Description 09/20/2024 9:30 AM OPERATIONS PROGRAM MANAGER Office Visit [facility] - Neurology [address] [place] [phone] Meredith Weiss MD [address] [place] [address] [address] [place] [phone] 10/18/2024 1:00 AM CDT Clinical Support [facility] - Cardiology [address] [place] [phone] 10/25/2024 9:00 AM CDT Office Visit [facility] - Cardiology [address] [place] [phone] Daily Bravo MD [address] [place] [address] 11/08/2024 3:40 PM CDT Office Visit [facility] - Endocrinology [address] [place] [address], [place] [phone] Garry Tracey MD [address] [place] [address] [address] [place] [phone] 12/15/2024 2:00 PM CDT Office Visit [facility] - Pulmonology [address] [place] [address], [place] [phone] Becca Ford MD [address] [facility] 2L DIV [place] [address] 01/17/2025 1:10 AM CDT Clinical Support [facility] Cardiology [address] [facility], [address] [phone] 02/24/2025 9:10 AM CDT [facility]erm[facility] [address] [place] [address], [place] [address] Robb Howell MD [address] [facility] 3L [place] [address] 03/02/2025 9:00 AM CDT Office Visit [facility] - Nephrology [address] [place] [phone] Nataliia Cooper MD [address] [facility] 3L [place] [address] 04/18/2025 1:10 AM CDT Clinical Support [facility] - Cardiology [address] [facility], [address] [phone] 07/18/2025 1:10 AM OPERATIONS PROGRAM MANAGER Clinical Support [facility] - Cardiology [address] [facility], [address] [phone] documented as of this encounter Visit Diagnoses Not on filedocumented in this encounter Care Teams Radio Installer Automobile Relationship Specialty Start Date End Date Dina Cloud PA-C [address] [place] [phone] PCP - General Physician Client Services Analyst 07/10/20 documented as of this encounter
--- OUTSIDE RECORDS SUMMARY | 2024-09-16 18:40 | XMS_ITS | Clinical Summary ---
Author Organization [facility] Address [address], [address] [place] [address] Phone Care Team Providers Care Machine Turner Name Role Phone AiDina rosas A PAC Primary Care Provider + [phone] Lefty Sousa MD Unavailable [phone] Allergies Active Allergy Reactions Criticality Noted Date [...] 3 12/24/19 17 Active ergocalciferol (VITAMIN D) 79042 UNIT Capsule TK 1 C PO Q [...] III SHORT PEN 31G X 8 MM [facility] USE TO INJECT INSULIN ONCE DAILY 08/07/19 [...] Continuous Blood Gluc Sensor (Dexcom G7 Sensor) [facility] 03/25/20 23 Active buPROPion, Smoking Deter, (ZYBAN) [...] Department Care Team Description 09/09/2024 8:50 AM SUGAR CANE GROWER Lab [facility] [address] [phone] Lab, [facility] [place] Myeloproliferative disease (HCC); Iron deficiency anemia, unspecified iron deficiency anemia type; Anemia, unspecified type 09/09/2024 8:45 AM SUGAR CANE GROWER Office Visit [facility] [address] [phone] Lynnette Anderson, BAR ASSISTANT, SUPERINTENDENT MECHANICAL Myeloproliferative disease (HCC) (Primary Dx); Iron deficiency anemia, unspecified iron deficiency anemia type; Anemia, unspecified type 09/09/2024 Travel 07/11/2024 Refill [facility] [address] [phone] Lefty Sousa MD Medication Refill from Last 3 Months Immunizations Immunization Administration Dates Next Due Covid-19, Mrna, Lnp-s, Pf, Lam-sucrose, 30 Mcg/0.3 Ml (Druva) 05/13/2023 Influenza Vaccine, Quadrivalent, PF 05/03,06/17/2022,05/17/2021,04/29,05/20/2017,09/23/2016,08/21/2015 Influenza Vaccine,unspecifie d Formulation 06/02/2022 Influenza, Injectable, Mdck, Preservative Free 04/25/2024 Influenza, Injectable, Quadrivalent 06/14/2019 Influenza, Seasonal, Injecta ble, Undefined 05/17/2019,04/29/2018 Pneumococcal Vaccine Adult - 23 Valent 7,08/21/2015,01/23/2015 Pneumococcal conjugate PCV20 , polysaccharide VTI000 conjugate, adjuvant, PF 06/16/2023 RSV, Recombinant, Protein [...] on file Legal Sex Male 11:32 AM SUGAR CANE GROWER Gender Identity Not on file Sexual Orientation Not on file Last Filed Vital Signs Vital Sign Reading Time Taken Comments Blood Pressure 136/84 09/09/2024 8:47 AM SUGAR CANE GROWER Pulse 59 09/09/2024 8:47 AM SUGAR CANE GROWER Temperature 36.3 C (97.3 F) 09/09/2024 8:47 AM SUGAR CANE GROWER Respiratory Rate 18 09/09/2024 8:47 AM SUGAR CANE GROWER Oxygen Saturation 99% 09/09/2024 8:47 AM SUGAR CANE GROWER Inhaled Oxygen Concentration - - Weight 102.7 kg (226 lb 8 oz) 09/09/2024 8:47 AM SUGAR CANE GROWER Height 172.7 cm (5' 8 ) 09/09/2024 8:47 AM SUGAR CANE GROWER Body Mass Index 34.44 09/09/2024 8:47 AM SUGAR CANE GROWER Plan of Treatment Upcoming Encounters Date Type Department Care Team (Late st Contact Info) Description 12/09/2024 8:30 AM CDT Office Visit [facility] [address] [address] Lefty Sousa MD [address] [place] [address] Health Maintenance Due Date Last [...] (CBC) WITH DIFF Routine 09/09/2024 9:10 AM SUGAR CANE GROWER Myeloproliferative disease (HCC) Iron deficiency anemia, unspecified iron deficiency anemia type Anemia, unspecified type CMP (COMPREHENSIVE METABOLIC PANEL) Routine 09/09/2024 9:10 AM SUGAR CANE GROWER Myeloproliferative disease (HCC) Iron deficiency anemia, unspecified iron deficiency anemia type Anemia, unspecified type LACTATE DEHYDROGENASE (LD) Routine 09/09/2024 9:10 AM SUGAR CANE GROWER Myeloproliferative disease (HCC) Iron deficiency anemia, unspecified iron deficiency anemia type Anemia, unspecified type FERRITIN Routine 09/09/2024 9:10 AM SUGAR CANE GROWER Myeloproliferative disease (HCC) Iron deficiency anemia, unspecified iron deficiency anemia type Anemia, unspecified type IRON W/ IRON BINDING CAPACITY OH Routine 09/09/2024 9:10 AM SUGAR CANE GROWER Myeloproliferative disease (HCC) Iron deficiency anemia, unspecified iron deficiency anemia type Anemia, unspecified type CT CHEST W/O CONTRAST Routine 01/04/2021 10:14 AM CDT Lung nodule Leukocytosis, unspecified type Thrombocytosis (HCC) Myeloproliferative disease (HCC) Anemia of unknown etiology from Last 3 Months or Most Recently Relevant to Health Maintenance Results * IRON W/ IRON BINDING CAPACITY OH (09/09/2024 9:10 AM SUGAR CANE GROWER) IRON 84 50 - 212 ug/dL [facility] UIBC 266 155 - 355 ug/dL [facility] ASSOCIATE PROFESSOR OF [facility]OLOGY [facility] TIBC 350 261 - 478 ug/dl [facility] % Saturation 24 20 - 50 % [facility] 09/09/2024 9:10 AM SUGAR CANE GROWER Narrative [facility] - 09/09/2024 10:05 AM SUGAR CANE GROWER Release to patient->Immediate us Lynnette Anderson APRN, SUPERINTENDENT MECHANICAL LAB SEND OUTS Fin al Result CANCER ASSOCIATE PROFESSOR OF GEOLOGY [facility] [place] [address], * (ABNORMAL) LACTATE DEHYDROGENASE (LD) (09/09/2024 9:10 AM SUGAR CANE GROWER) LDH 130(L) 140 - 271 U/L [facility] Blood 09/09/2024 9:10 AM SUGAR CANE GROWER Narrative [facility] - 09/09/2024 10:05 AM SUGAR CANE GROWER Release to patient->Immediate Lynnette Anderson APRN, SUPERINTENDENT MECHANICAL CHEMISTRY ORDERABLE S Final Result Performing Organization Address City/[facility]/ZIP Co de Phone Number CANCER ASSOCIATE PROFESSOR OF GEOLOGY [facility] [place] [address], [place] [phone] * FERRITIN (09/09/2024 9:10 AM SUGAR CANE GROWER) Ferritin 53 24 - 336 ng/mL [facility] Blood 09/09/2024 9:10 AM SUGAR CANE GROWER Kiara [facility] ASSOCIATE [facility] - 09/09/2024 2:10 PM SUGAR CANE GROWER Release to patient->Immediate Lynnette Anderson APRN, SUPERINTENDENT MECHANICAL CHEMISTRY ORDERABLE S Final Result Performing Organization Address City/[facility] Co de Phone Number [facility] ASSOCIATE PROFESSOR OF GEOLOGY [facility] [place] [address], [place] [phone] * (ABNORMAL) CMP (COMPREHENSIVE METABOLIC PANEL) (09/09/2024 9:10 AM SUGAR CANE GROWER) Glucose 216(H) 70 - 105 mg/dL [facility] ASSOC[facility]ATE [facility] Blood Urea Nitrogen 17 7 - 25 mg/dL [facility] Creatinine 1.4(H) 0.7 - 1.3 mg/dL [facility] ASSOCIATE [facility] Sodium 144 136 - 145 mEq/L [facility] Potassium 4.6 3.5 - 5.1 mEq/L [facility] Chloride 104 98 - 107 mEq/L [facility] Bicarbonate 29 21 - 31 mEq/L [facility] ASSOCIATE [facility] Total Bilirubin 0.3 0.3 - 1.0 mg/dL [facility] Alk. Phosphatase 89 34 - 104 U/L [facility] Aspartate Aminotransferase 14 13 - 39 U/L [facility] Alanine Aminotransferase 26 7 - 52 U/L [facility] Total Protein 6.6 6.4 - 8.9 g/dL [facility] Albumin 4.2 3.5 - 5.7 g/dL [facility] Calcium 11.6(H) 8.6 - 10.3 mg/dL [facility] Anion Gap 15.6(H) 7.0 - 15.0 mEq/L [facility] Globulin 2.4 2.0 - 3.5 g/dL [facility] EGFR 56(L) >60 ml/min/1. 73m2 [facility] Comment: This eGFR is calculated using 2020 CKD-EPI Creatinine equation without race modifier based on the NKF-ASN task force recommendations Blood 09/09/2024 9:10 AM SUGAR CANE GROWER Narrative [facility] - 09/09/2024 10:05 AM SUGAR CANE GROWER Release to patient->Immediate IS THE PATIENT REQUIRED TO BE FASTING FOR 8 HOURS?->No Lynnetet Anderson APRN, ROBIN CHEMISTRY ORDERABLE S Final Result CANCER ASSOCIATE PROFESSOR OF GEOLOGY [facility] [place] [address], * (ABNORMAL) COMPLETE BLOOD COUNT (CBC) WITH DIFF (09/09/2024 9:10 AM SUGAR CANE GROWER) WBC 11.1(H) 4.0 - 10.0 10*3/uL [facility] ASSOCIATE [facility] HGB 14.3 13.7 - 17.5 g/dL [facility] HCT 43.7 40.1 - 51.0 % [facility] PLT 287 163 - 369 10*3/uL [facility] MPV 9.9 9.4 - 12.4 fL [facility] RBC 4.02(L) 4.63 - 6.08 10*6/uL CANCER ASSOCIATE PROFESSOR OF GEOLOGY [facility] MCV 109(H) 79 - 95 fL [facility]ER ASSOCIATE PROFESSOR OF GEOLOGY [facility] MCH 35.6(H) 25.6 - 32.2 pg [facility]ER ASSOCIATE PROFESSOR OF GEOLOGY [facility] MCHC 32.7 32.2 - 36.5 g/dL CANCER ASSOCIATE PROFESSOR OF GEOLOGY [facility] RDW 14.6(H) 11.6 - 14.4 % CANCER ASSOCIATE PROFESSOR OF GEOLOGY [facility] Absolute Neutrophil Count 6,083 cells/uL [facility] Absolute Seg Count 6,083 1,440 - 6,600 cells/uL CANCER ASSOCIATE PROFESSOR OF GEOLOGY [facility] Absolute Lymph Count 3,650 760 - 4,000 cells/uL [facility]ER ASSOCIATE PROFESSOR OF GEOLOGY [facility] Absolute [place] Count 774 160 - 1,200 cells/uL [facility]ER ASSOCIATE PROFESSOR OF GEOLOGY [facility] Absolute Eos Count 553(H) 0 - 300 cells/uL [facility] ASSOCIATE PROFESSOR OF GEOLOGY [facility] Segmented Neutrophils 55 36 - 66 % CANCER ASSOCIATE PROFESSOR OF GEOLOGY [facility] Lymphocytes 33 19 - 40 % [facility]TER [facility] Monocytes 7 4 - 12 % [facility] STALIN TER [facility] Eosinophils 5(H) 0 - 3 % [facility] WBC Estimate High CANCER ASSOCIATE PROFESSOR OF GEOLOGY [facility] Platelet Estimate Normal [facility]ER ASSOCIATE PROFESSOR OF GEOLOGY [facility] RBC Morphology Abnormal CANCE R ASSOCIATE PROFESSOR OF GEOLOGY [facility] Macrocytosis 2+ [facility] ASSOCIATE PROFESSOR OF GEOLOGY [facility] Anisocytosis 1+ [facility]ER ASSOCIATE PROFESSOR OF GEOLOGY [facility] Blood 09/09/2024 9:10 AM SUGAR CANE GROWER Narrative [facility]ER ASSOCIATE PROFESSOR OF GEOLOGY [facility] - 09/09/2024 11:11 AM SUGAR CANE GROWER Release to patient->Immediate us Lynnette Anderson BAR ASSISTANT, SUPERINTENDENT MECHANICAL HEMATOLOGY ORDERABL ES Final Result [facility]ER ASSOCIATE PROFESSOR OF GEOLOGY [facility] [place] [address], [place] [phone] * CT CHEST W/O CONTRAST (01/04/2021 10:14 [...] Recently Relevant to Health Maintenance Insurance MEDICAID [facility] PLAN Care Teams Machine Turner Relationship Specialty Start Date End Date Dina Cloud PAC [address] [place] [address] PCP - General Physician Dispensing Optician Apprentice 05/25/20 Lefty Sousa MD [address] [place] [address] Consulting Physician Hematology and Oncology 01/03/21
--- OUTSIDE RECORDS SUMMARY | 2024-09-16 18:40 | XMS_ITS | Encounter Summary ---
Author Organization [facility] Address [address] [place] [address] Care Team Providers Care Laboratory Specialist Name Role Phone Dina Cloud PA-C Primary Care Provider Reason for Visit * Reason Onset Date Comments Med Question 02/29/2024 Encounter Details Date Type Department Care Team (Late st Contact Info) Description 02/29/2024 Telephone [facility] General Dermatology [address], [address] [place] [address] Robb Howell MD [address] [facility] 3 [place] [address] Med Question Social History Tobacco Use Types [...] before surgery that is scheduled for 03/16. 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 # [phone] documented in this encounter Plan of Treatment Upcoming Encounters Date Type Department Care Team (Late st Contact Info) Description 09/20/2024 9:30 AM VENEER CLIPPER HELPER Office Visit [facility] - Neurology [address] [place] [address], [place] [address] Meredith Weiss MD [address] [place] [address] [place] [address] 10/18/2024 1:00 AM CDT Clinical Support [facility] - Cardiology [address] [phone] 10/25/2024 9:00 AM CDT Office Visit [facility] - Cardiology [address] [facility], [address] [phone] Daily Bravo MD [facility] [address] [address] 11/08/2024 3:40 PM CDT Office Visit [facility] - Endocrinology [address] [place] [phone] Garry Tracey MD [address] [place] [address] 2L [place] [phone] 12/15/2024 2:00 PM CDT Office Visit [facility] - Pulmonology [address] [place] [address], [place] [address] Becca Ford MD [address] [place] [address] 2L [place] [address] 01/17/2025 1:10 AM CDT Clinical Support [facility] - Cardiology [address] [place] [phone] 02/24/2025 9:10 AM CDT Office Visit [facility] - Dermatology [address] [place] [phone] Robb Howell MD [address] [place] [address] 3L [place] [address] 03/02/2025 9:00 AM CDT Office Visit [facility] - Nephrology [address] [place] [address], [place] [address] Nataliia Cooper MD [address] [place] [address] 3L [place] [address] 04/18/2025 1:10 AM CDT Clinical Support [facility] - Cardiology [address] [place] [phone] 07/18/2025 1:10 AM VENEER CLIPPER HELPER Clinical Support [facility] - Cardiology [address] [place] [phone] documented as of this encounter Visit Diagnoses Not on filedocumented in this encounter Care Teams Laboratory Specialist Relationship Specialty Start Date End Date Dina Cloud PA-C [address] [place] [address] PCP - General Physician Nuclear Reactor Operator 07/10/20 documented as of this encounter
--- OUTSIDE RECORDS SUMMARY | 2024-09-16 18:40 | XMS_ITS | Encounter Summary ---
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 Gender Identity Not on file Sexual Orientation Not on file documented as of this encounter Miscellaneous Notes * Telephone Encounter - Cary Chapman - 07/15/2021 3:54 PM CST PT HAD AN APPT TODAY, NO SHOW, CALLED PT, LEFT V/M, LETTER SENT DESIGN SALES CONSULTANT documented in this encounter Plan of Treatment Upcoming Encounters Date Type Department Care Team (Late st Contact Info) Description 12/09/2024 8:30 AM CDT Office Visit [facility] [place] [address] [place] [phone] Lefty Sousa MD [facility] [address] [address] documented as of this encounter Visit Diagnoses Not on filedocumented in this encounter Additional Health Concerns Assessment Noted Time PHQ-9 Depression Total Score: 0 04/26/20 9:02 AM CDT documented as of this encounter Care Teams Inside Sales Recruiter Relationship Specialty Start Date End Date Dina Cloud PAC [address] [place] [address] PCP - General Physician Disc Pad Grinder 05/25/20 Lefty Sousa MD [address] [place] [phone] Consulting Physician Hematology and Oncology 01/03/21 documented as of this encounter
--- OUTSIDE RECORDS SUMMARY | 2024-09-16 18:40 | XMS_ITS | Encounter Summary ---
Author Organization [facility] Address [address] [facility] [place] [address] Care Team Providers Care Stamp Mounter Name Role Phone Dina Cloud PA-C Primary Care Provider Reason for Visit * Reason Onset Date Comments Medication Prior Auth Request 03/04/2024 Encounter Details Date Type Department Care Team (Late st Contact Info) Description 03/04/2024 Telephone [facility] - Cardiology [address] [facility] [address] [place] [address] Kika Ocampo PA [address] [place] [address] Medication Prior Auth Request Social History Tobacco [...] for a refill Patient Call Back number: [phone] documented in this encounter Plan of Treatment Upcoming Encounters Date Type Department Care Team (Late st Contact Info) Description 09/20/2024 9:30 AM SHOP SERVICE TECHNICIAN Office Visit [facility] - Neurology [address] [place] [address], [place] [address] Meredith Weiss MD [address] [place] [address] [place] [address] 10/18/2024 1:00 AM CDT Clinical Support [facility] - Cardiology [address] [place] [phone] 10/25/2024 9:00 AM CDT Office Visit [facility] - Cardiology [address] [place] [phone] Daily Bravo MD [address] [place] [address] 11/08/2024 3:40 PM CDT Office Visit [facility] - Endocrinology [address] [place] [phone] Garry Tracey MD [address] [place] [address] 2L [place] [address] 12/15/2024 2:00 PM CDT Office Visit [facility] - Pulmonology [address] [place] [address] [place] [address] Becca Ford MD [address] [place] [address] 2L DIV [place] [address] 01/17/2025 1:10 AM CDT Clinical Support [facility] - Cardiology [address] [place] [phone] 02/24/2025 9:10 AM CDT Office Visit [facility] - Dermatology [address] [place] [phone] Robb Howell MD [address] [place] [address] 3[address] [place] [address] 03/02/2025 9:00 AM CDT Office Visit [facility] - Nephrology [address] [place] [phone] Nataliia Cooper MD [address] [place] [address] 3L [place] [address] 04/18/2025 1:10 AM CDT Clinical Support [facility] - Cardiology [address] [place] [phone] 07/18/2025 1:10 AM SHOP SERVICE TECHNICIAN Clinical Support [facility] - Cardiology [address] [place] [phone] documented as of this encounter Visit Diagnoses Not on filedocumented in this encounter Care Teams Stamp Mounter Relationship Specialty Start Date End Date Dina Cloud PA-C [address] [place] [phone] PCP - General Physician Line Producer 07/10/20 documented as of this encounter
--- OUTSIDE RECORDS SUMMARY | 2024-09-16 18:40 | XMS_ITS | Encounter Summary ---
Author Organization [facility] Address [address] [facility] [place] [place] [address] Care Team Providers Care House Painter Helper Name Role Phone Dina Cloud PA-C Primary Care Provider Encounter Details Date Type Department Care Team (Late Contact Info) Description 01/15/2023 Telephone [facility] - Centralized Scheduling [address] [place] [phone] Nathalie Hassan M, OD [address] [facility] [place] [phone] Social History Tobacco Use Types Packs/Day Years [...] (Late Contact Info) Description 09/20/2024 9:30 AM EXAMINING CHAIR ASSEMBLER Office Visit [facility] - Neurology [address] [place] [address], [place] [phone] Meredith Weiss MD [address] [place] [address] 1L [place] [phone] 10/18/2024 1:00 AM CDT Clinical Support [facility] - Cardiology [facility], [address] [phone] 10/25/2024 9:00 AM CDT Office Visit [facility] - Cardiology [facility], [address] [phone] Daily Bravo MD [address] [place] [address] 11/08/2024 3:40 PM CDT [facility] - Endocrinology [address] [place] [address], [place] [phone] Garry Tracey MD [address] [place] [address] 2L [place] [phone] 12/15/2024 2:00 PM CDT Office Visit [facility] - Pulmonology [address] [place] [address], [place] [phone] Becca Ford MD [address] [place] [address] 2L DIV [place] [address] 01/17/2025 1:10 AM CDT Clinical Support [facility] Cardiology [address] [facility], [address] [phone] 02/24/2025 9:10 AM CDT Office [facility] - Dermatology [address] [place] [address], [place] [phone] Robb Howell MD [address] [place] [address] 3 [place] [address] 03/02/2025 9:00 AM CDT Office Visit [facility] - Nephrology [address] [place] [address], [place] [address] Nataliia Cooper MD [address] [place] [address] 3 [place] [address] 04/18/2025 1:10 AM CDT Clinical Support [facility] - Cardiology [address] [place] [phone] 07/18/2025 1:10 AM EXAMINING CHAIR ASSEMBLER Clinical Support [facility] - Cardiology [address] [place] [phone] documented as of this encounter Visit Diagnoses Not on filedocumented in this encounter Care Teams House Painter Helper Relationship Specialty Start Date End Date Dina Cloud PA-C [address] [place] [phone] PCP - General Physician Bicycle Service Technician 07/10/20 documented as of this encounter
--- OUTSIDE RECORDS SUMMARY | 2024-09-16 18:40 | XMS_ITS | Referral Summary ---
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 Gender Identity Not on file Sexual Orientation [...] A1c % 8.9(H) 4.0 - 5.6 % [facility] Comment: ADA 2016 GUIDELINES: Initial Diagnostic Criteria HbA1c Result: Interpretation: <5.7% Normal 5.7-6.4% At risk for diabetes mellitus >=6.5% Consistent with diabetes mellitus Diabetes monitoring Target value (ADA Recommended) <7% 03/24/2020 8:49 PM CDT 03/24/2020 8:53 PM CDT Narrative Resulting Agency Comment IN us Milton Jacob MD LAB BLOOD ORDERABLES Final Result Performing Organization Address City/[facility]/ZIP Co de Phone Number [address] [phone] * Occult blood, fecal non neoplasm screening (01/23/2015 12:00 PM CDT) Stool Occult Blood NEGATIVE NEGATIVE 01/23/2015 2:57 PM CDT [facility] HISTORICAL RESULTS 01/23/2015 12:0 0 PM CDT 01/23/2015 2:36 PM CDT Narrative [facility] HISTORICAL RESULTS - 01/23/2015 2:57 PM CDT Collected By je us Carlos Bernabe MD LAB BODY FLUIDS AND ST OOLS ORDERABLES Final Result [facility] HISTORICAL RESULTS * (ABNORMAL) TNI with LIPID PANEL (01/22/2015 4:47 PM CDT) Troponin I < 0.300 0.000 - 0.300 ng/mL 01/22/2015 5:37 PM CDT [facility] HISTORICAL RESULTS Comment: Reference using MCK[facility] Chemiluminescence Negative: Repeat in 4-6 hours as indicated. Triglycerides 544(H) 0 - 199 mg/dL 01/22/2015 5:39 PM CDT [facility] HISTORICAL RESULTS Comment: LDL (measured) to follow due to Triglycerides >250 mg/dL 12 hr pc highly recommended for Triglyceride Cholesterol 244(H) 0 - 199 mg/dL 01/22/2015 5:39 PM CDT [facility] HISTORICAL RESULTS Comment: Borderline: 200-239 High Risk: >239 HDL Cholesterol 28(L) 40 - 60 mg/dL 01/22/2015 5:39 PM CDT [facility] HISTORICAL RESULTS Comment: Major Risk < 40 mg/dL Moderate Risk 40-60 mg/dL Negative Risk > 60 mg/dL Cholesterol/HDL Ratio 8.7 01/22/2015 5:39 PM CDT [facility] HISTORICAL RESULTS Comment: Cholesterol / HDL Ratio 3.5:1 or less is desirable. Cholesterol / HDL Ratio greater than 5:1 is considered higher risk for developing heart disease. 01/22/2015 4:47 PM CDT 01/22/2015 4:53 PM CDT Narrative [facility] HISTORICAL RESULTS - 01/22/2015 5:39 PM CDT Jerry Tang MD LAB BLOOD ORDERABLES Cristine l Result [facility] HISTORICAL RESULTS from Last 3 Months or Most Recently Relevant to Health Maintenance Insurance [facility] Care Teams Lead Technical Writer Relationship Specialty Start Date End Date Dina Cloud PA [address] [place] [phone] PCP - General Physician Software Analyst 08/28/23
--- OUTSIDE RECORDS SUMMARY | 2024-09-16 18:40 | XMS_ITS | Encounter Summary ---
Author Organization [facility] Address [address] [place] [address] Phone Care Team Providers Care Survey And Mapping Technician Name Role Phone Dina Cloud PAC Primary Care Provider + [phone] Lefty Sousa MD Unavailable Reason for Visit * Reason Comments Medication Refill Encounter Details Date Type Department Care Team (Late st Contact Info) Description 12/20/2023 Refill [facility] [address] [place] [address] Lefty Sousa MD [address] [address] Medication Refill Social History Tobacco [...] on file Legal Sex Male 11:[address] INTERPRETER Gender Identity Not on file Sexual Orientation Not on file documented as of this encounter Miscellaneous Notes * Telephone Encounter - Norma Bond RN - 12/21/2023 7:59 AM CDT Please refill if appropriate documented in this encounter Plan of Treatment Upcoming Encounters Date Type Department Care Team (Late st Contact Info) Description 12/09/2024 8:30 AM CDT Office Visit [facility] [address] [place] [address] Lefty Sousa MD [address] [place] [address] [address] documented as of this encounter Visit Diagnoses Diagnosis Anemia, unspecified type documented in this encounter Additional Health Concerns Assessment Noted Time PHQ-9 Depression Total Score: 0 04/26/20 9:02 AM CDT documented as of this encounter Care Teams Survey And Mapping Technician Relationship Specialty Start Date End Date Dina Cloud PAC [address] [place] [phone] PCP - General Physician Regulator Tester 05/25/20 Lefty Sousa MD [address] [place] [phone] Consulting Physician Hematology and Oncology 01/03/21 documented as of this encounter
--- OUTSIDE RECORDS SUMMARY | 2024-09-16 18:40 | XMS_ITS | Encounter Summary ---
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 Male 11:32 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 Gender Identity Not on file Sexual Orientation [...] Visit [facility] [address] [place] [phone] Lefty Sousa MD [facility] [address] [address] documented as of this encounter Visit Diagnoses Not on filedocumented in this encounter Additional Health Concerns Assessment Noted Time PHQ-9 Depression Total Score: 0 04/26/20 9:02 AM CDT documented as of this encounter Care Teams Director Of Family Service Center Relationship Specialty Start Date End Date Dina Cloud PAC [address] [place] [address] PCP - General Physician Dragger 05/25/20 Lefty Sousa MD [address] [place] [phone] Consulting Physician Hematology and Oncology 01/03/21 documented as of this encounter
--- OUTSIDE RECORDS SUMMARY | 2024-09-16 18:40 | XMS_ITS | Encounter Summary ---
Author Organization [facility] Address [address] [place] [address] Care Team Providers Care Foundry Superintendant Name Role Phone Dina Cloud PA-C Primary Care Provider Encounter Details Date Type Department Care Team (Late st Contact Info) Description 09/04/2023 Telephone [facility] - Neurology [address] [place] [address], [place] [address] Meredith Weiss MD [address] [place] [phone] Social History Tobacco Use Types Packs/Day Years [...] that they have not been able to pickle cutter this patient's Gabapentin [address] Weiss renewed this prescription on 09/02/2023 and this patient's pharmacy confirmed a receipt of this prescription. I called this patient's pharmacy ([facility] in [place], [place]) and the pharmacy technician instructor claimed that they did not have a copy of the prescription. I then called in the prescription as prescribed by Dr. Weiss. EL STAFF MEMBER * Telephone Encounter - Bess Boss - 09/04/2023 12:04 PM CST Patient called in requesting a Med refill. Drug type:gabapintine 300 mg Completely out now Pharmacy:[facility] Patient call back number: [phone] . EL STAFF MEMBER documented in this encounter Plan of Treatment Upcoming Encounters Date Type Department Care Team (Late st Contact Info) Description 09/20/2024 9:30 AM KENNEL STAFF MEMBER Office Visit [facility] - Neurology [address] [place] [address], [facility] [place] [address] Meredith Weiss MD [address] [place] [address] [place] [address] 10/18/2024 1:00 AM CDT Clinical Support [facility] - Cardiology [address] [place] [phone] 10/25/2024 9:00 AM CDT Office Visit [facility] - Cardiology [address] [place] [phone] Daily Bravo MD [address] [place] [phone] 11/08/2024 3:40 PM CDT Office Visit [facility] - Endocrinology [address] [place] [address], [place] [address] Garry Tracey MD [address] [place] [address] 2L [place] [address] 12/15/2024 2:00 PM CDT [facility] - Pulmonology [address] [place] [address], [place] [address] Becca Ford MD [address] [place] [address] 2L DIV OF [place] [address] 01/17/2025 1:10 AM CDT Clinical Support [facility] - Cardiology [address] [place] [phone] 02/24/2025 9:10 AM CDT [facility] - Dermatology [address] [place] [address], [place] [address] Robb Howell MD [address] [place] [address] 3L [place] [address] 03/02/2025 9:00 AM CDT Office Visit [facility] - Nephrology [address] [place] [address], [place] [address] Nataliia Cooper MD [address] [place] [address] 3L [place] [address] 04/18/2025 1:10 AM CDT Clinical Support [facility] - Cardiology [address] [place] [address], [address] [phone] 07/18/2025 1:10 AM KENNEL STAFF MEMBER Clinical Support [facility] - Cardiology [address] [place] [address], [address] [phone] documented as of this encounter Visit Diagnoses Not on filedocumented in this encounter Care Teams Foundry Superintendant Relationship Specialty Start Date End Date Dina Cloud PA-C [address] [place] [phone] PCP - General Physician Rx Specialist 07/10/20 documented as of this encounter
--- OUTSIDE RECORDS SUMMARY | 2024-09-16 18:40 | XMS_ITS | Clinical Summary ---
Author Organization 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 Gender Identity Not on file Sexual Orientation [...] Hemoglobin A1c (03/24/2020 8:49 PM CDT) Pathologist [facility] Hemoglobin A1c % 8.9(H) 4.0 - 5.6 % [facility] Comment: ADA 2016 GUIDELINES: Initial Diagnostic Criteria HbA1c Result: Interpretation: <5.7% Normal 5.7-6.4% At risk for diabetes mellitus >=6.5% Consistent with diabetes mellitus Diabetes monitoring Target value (ADA Recommended) <7% 03/24/2020 8:49 PM CDT 03/24/2020 8:53 PM CDT Narrative Resulting Agency Comment IN us Milton Jacob MD LAB BLOOD ORDERABLES Final Result Performing Organization Address City/[facility]/ZIP Co de Phone Number [place] [phone] [address] [phone] * Occult blood, fecal non neoplasm screening (01/23/2015 12:00 PM CDT) Pathologist [facility] Stool Occult Blood NEGATIVE NEGATIVE 01/23/2015 12:0 0 PM CDT 01/23/2015 2:36 PM CDT Narrative [facility] HISTORICAL RESULTS - 01/23/2015 2:57 PM CDT Collected By je us Carlos Bernabe MD LAB BODY FLUIDS AND ST OOLS ORDERABLES Final Result [facility] HISTORICAL RESULTS * (ABNORMAL) TNI with LIPID PANEL (01/22/2015 4:47 PM CDT) Pathologist [facility] Troponin I < 0.300 0.000 - 0.300 ng/mL Comment: Reference using [facility] Chemiluminescence Negative: Repeat in 4-6 hours as indicated. Triglycerides 544(H) 0 - 199 mg/dL Comment: LDL (measured) to follow due to Triglycerides >250 mg/dL 12 hr pc highly recommended for Triglyceride Cholesterol 244(H) 0 - 199 mg/dL 01/22/2015 5:39 PM CDT [facility] Comment: Borderline: 200-239 High Risk: >239 HDL Cholesterol 28(L) 40 - 60 mg/dL 01/22/2015 5:39 PM CDT [facility]ULTS Comment: Major Risk < 40 mg/dL Moderate Risk 40-60 mg/dL Negative Risk > 60 mg/dL Cholesterol/HDL Ratio 8.7 01/22/2015 5:39 PM CDT [facility] RESULTS Comment: Cholesterol / HDL Ratio 3.5:1 or less is desirable. Cholesterol / HDL Ratio greater than 5:1 is considered higher risk for developing heart disease. 01/22/2015 4:47 PM CDT 01/22/2015 4:53 PM CDT Narrative [facility]ISTOR[facility] RESULTS - 01/22/2015 5:39 PM CDT Jerry Tang MD LAB BLOOD ORDERABLES Cristine pal Result [facility] HISTORICAL RESULTS from Last 3 Months or Most Recently Relevant to Health Maintenance Insurance [address] [place] [id number] [facility] Care Teams Oracle Programmer Analyst Relationship Specialty Start Date End Date Dina Cloud PA [facility] [address] PCP - General Physician Director Hris 08/28/23
--- OUTSIDE RECORDS SUMMARY | 2024-09-16 18:40 | XMS_ITS | Clinical Summary ---
Author Organization [facility] Address [address] [place] [address] Care Team Providers Care Radio Dispatcher Name Role Phone Dina Cloud PA-C Primary Care Provider Source Comments [facility],non-owned Affiliates and Associated Physician Practices is amultiple site organization consisting of ambulatory clinics and hospital sitesin [place], [place], [place] and [place]. This disclosure is being madepursuant to the Care Everywhere program and may not contain all information available regarding this patient. Last updated 18.[facility] Allergies Active Allergy Reactions Criticality Noted Date [...] Active vitamin D, ergocalciferol, (DRISDOL) 1.25 MG (36618 UT) capsule Take 1 (one) capsule by [...] 5 01/09/20 23 Active Continuous Blood Gluc Insurance Healthcare Consultant ([employer] G7 Insurance Healthcare Consultant) DEVIIndications:T ype 2 diabetes mellitus without complication, unspecified whether oysterman insulin use (HCC) Use 1 kit as directed 1 Each 01/30/20 23 Active albuterol HFA (ProAir HFA) 108 (90 Base) MCG/ACT inhaler Inhale 2 (two) puffs by mouth every 4 hours as needed 8.5 g 5 06/18/20 23 Active Spacer/Aero-Holdi ng Chambers (AeroChamber) Inhale by mouth as directed 1 Each 5 06/18/20 23 Active HYDROcodone-aceta minophen (Worden) 10-325 MG tablet Take 1 (one) tablet [...] 2 diabetes mellitus without complication, unspecified whether oysterman insulin use (HCC) Use 1 Each every [...] 10/07/2021 Assessment & Plan (10/07/2021 12:23 PM OIL FIELD ROUSTABOUT): Triglycerides remain elevated in the setting of uncontrolled DM. Pt has follow up with PCP later this week and Endocrinology in November. Start Vascepa 1 tab po BID. Mixed hyperlipidemia 10/07/2021 Assessment & Plan (10/07/2021 12:24 PM OIL FIELD ROUSTABOUT): LDL 28, HDL 29. Continue Repatha and Lipitor 80mg daily. FLP prior to follow up in 3 months. HTN (hypertension) 10/07/2021 Assessment & Plan (10/07/2021 12:27 PM OIL FIELD ROUSTABOUT): SBP uncontrolled in clinic today. Did not take his medications prior to this apportionment. Continue lisinopril 20mg daily. SBP on 09/13 149/79. Neoplasm of uncertain behavior of skin Epidermal inclusion cyst 09/27/2021 Solar lentiginosis 09/27/2021 Melanocytic nevi of trunk 09/27/2021 Lipoma of torso 09/27/2021 Cardiac pacemaker in situ 07/04/2021 Assessment & Plan (10/07/2021 12:39 PM OIL FIELD ROUSTABOUT): Medtronic PPM, functioning well. See device report from today. Transferred care to our clinic, remotes scheduled. Anemia 03/24/2019 07/16/2023 Myeloproliferative disease 08/26/2018 PAD (peripheral artery disease) 06/02/2018 Occlusion and stenosis of right carotid artery 1 09/23/2016 Encounters Date Type Department Care Team Description 09/13/2024 Orders Only [facility] - Nephrology [address] [place] [address] Nataliia Cooper MD Hypercalcemia 09/13/2024 Refill [facility] - Neurology [address] [place] [phone] Meredith Weiss MD Refill Request 09/08/2024 8:15 AM OIL [facility]ELD R[facility]ST[facility]OUT Office Visit [facility] - Urology [address] [place] [address] Josy Davila DO Pain in left testicle (Primary Dx); S/P TURP; Urinary frequency; Dysuria; Pain in both testicles 09/08/2024 Travel 09/01/2024 10:31 AM [facility] - 09/01/2024 11:59 PM [facility] Hospital Encounter [facility] [address] [place] [address] Nataliia Cooper MD Discharge Disposition: Home or Self Care 09/01/2024 9:30 AM OIL FIELD ROUSTABOUT Office Visit [facility] - Nephrology [address] [place] [phone] Nataliia Cooper MD Stage 3 chronic kidney disease, unspecified whether stage 3a or 3b CKD (HCC) (Primary Dx) 09/01/2024 8:45 AM [facility]OUT - 09/01/2024 10:30 AM [facility] Hospital Encounter [facility] [address] [place] [address] Nataliia Cooper MD Discharge Disposition: Home or Self Care 09/01/2024 Travel 08/26/2024 9:10 AM OIL FIELD ROUSTABOUT Office Visit [facility] - Dermatology [address] [place] [phone] Robb Howell MD 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 (Primary Dx) 08/26/2024 Travel 08/17/2024 10:50 AM OIL FIELD ROUSTABOUT Office Visit [facility] - General Dermatology [address] [place] [phone] Robb Howell MD Melanocytic nevi of trunk (Primary Dx); Mansfield angioma; Seborrheic keratoses; Lentigines; Actinic keratosis; History of squamous cell carcinoma of skin; Neoplasm of uncertain behavior of skin; 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 08/17/2024 Travel 07/19/2024 8:20 AM OIL FIELD ROUSTABOUT Office Visit [facility] - Cardiology [address] [facility] [address] [place] [address] Daily Bravo MD SSS (sick sinus syndrome) (HCC) (Primary Dx); Hypertriglyceridemia 07/19/2024 Travel 06/29/2024 Refill [facility] - Urology [address] [place] [phone] Josy Davila DO Refill Request 06/21/2024 Travel 06/16/2024 2:00 PM [facility]IL FIELD ROUSTABOUT Office Visit [facility] - Pulmonology [address] [place] [phone] Becca Ford MD Dyspnea on exertion (Primary Dx); Nicotine dependence, cigarettes, uncomplicated; AGNIESZKA (obstructive sleep apnea); Tobacco abuse; Immunization counseling 06/16/2024 Travel from Last 3 Months Immunizations Name Administration Dates Next Due COVID [employer] 12+YR 30MCG/0.3mL 05/13/2023 FLU, HISTORIC VACCINE 05/06/2023 [...] Comments Blood Pressure 164/83 09/08/2024 7:55 AM [facility] Pulse 94 09/08/2024 7:55 AM [facility]ELD R[facility]ST[facility]OUT Temperature 36.7 C (98 F) 09/08/2024 7:55 AM [facility] Respiratory Rate 17 06/16/2024 1:59 PM [facility] Oxygen Saturation 95% 09/08/2024 7:55 AM [facility] Inhaled Oxygen Concentration - - Weight 103.1 kg (227 lb 6.4 oz) 09/08/2024 7:55 AM [facility] R[facility] Height 175.3 cm (5' 9 ) 09/08/2024 7:55 AM [facility]ELD R[facility]STABOUT Body Mass Index 33.58 09/08/2024 7:55 AM [facility]ELD R[facility]STABOUT Plan of Treatment Upcoming Encounters Date Type Department Care Team (Late st Contact Info) Description 09/20/2024 9:30 AM [facility]IL FIELD ROUSTABOUT Office Visit [facility] - Neurology [address] [place] [address], [place] [address] Meredith Weiss MD [address] [place] [address] [place] [address] 10/18/2024 1:00 AM CDT Clinical Support [facility] - Cardiology [address] [facility], [address] [phone] 10/25/2024 9:00 AM CDT [facility] Cardiology [address] [place] [address], [address] [phone] Daily Bravo MD [address] [place] [address] 11/08/2024 3:40 PM CDT [facility] - Endocrinology [address] [place] [address], [place] [address] Garry Tracey MD [address] [place] [address] [address] [place] [address] 12/15/2024 2:00 PM CDT [facility] - Pulmonology [address] [place] [address], [place] [address] Becca Ford MD [address] [place] [address] [address] DIV OF [place] [address] 01/17/2025 1:10 AM CDT Clinical Support [facility] - Cardiology [facility] [address] [phone] 02/24/2025 9:10 AM CDT Office Visit [facility] - Dermatology [address] [place] [address], [place] [address] Robb Howell MD [address] [place] [address] [address] [place] [address] 03/02/2025 9:00 AM CDT Office Visit [facility] - Nephrology [address] [facility], [place] [address] Nataliia Cooper MD [address] [facility] [place] [address] 04/18/2025 1:10 AM CDT Clinical Support [facility] - Cardiology [address] [facility], [address] [phone] 07/18/2025 1:10 AM OIL FIELD ROUSTABOUT Clinical Support [facility] - Cardiology [address] [facility], [place] [address] [place] [phone] Health Maintenance Due Date Last Done Comments [...] Management General On track( 025 10:03 AM OIL FIELD ROUSTABOUT) No Ketty Dudley, MAIN Note: Expected end [...] REFLEX TO CULTURE Routine 09/01/2024 11:37 AM [facility]IL FIELD ROUSTABOUT Stage 3 chronic kidney disease, unspecified whether stage 3a or 3b CKD (HCC) MICROALB/CREAT RATIO URINE RANDOM PANEL Routine 09/01/2024 11:37 AM [facility] FIELD ROUSTABOUT Stage 3 chronic kidney disease, unspecified whether stage 3a or 3b CKD (HCC) URINALYSIS REFLEX MICROSCOPIC REFLEX CULTURE Routine 09/01/2024 11:37 AM [facility]ELD R[facility]STABOUT Stage 3 chronic kidney disease, unspecified whether stage 3a or 3b CKD (HCC) VITAMIN D 25-HYDROXY Routine 09/01/2024 11:07 AM [facility]ELD ROUSTABOUT Stage 3 chronic kidney disease, unspecified whether stage 3a or 3b CKD (HCC) PTH INTACT W/O CALCIUM Routine 11:07 AM [facility]ELD ROUSTABOUT Stage 3 chronic kidney disease, unspecified whether stage 3a or 3b CKD (HCC) HEMOGLOBIN A1C Routine 09/01/2024 11:07 AM [facility]IL FIELD ROUSTABOUT Stage 3 chronic kidney disease, unspecified whether stage 3a or 3b CKD (HCC) URIC ACID BLOOD Routine 09/01/2024 11:07 AM [facility]ELD ROUSTABOUT Stage 3 chronic kidney disease, unspecified whether stage 3a or 3b CKD (HCC) RENAL FUNCTION PANEL Routine 09/01/2024 11:07 AM [facility]ELD R[facility]STABOUT Stage 3 chronic kidney disease, unspecified whether stage 3a or 3b CKD (HCC) CBC W AUTO DIFFERENTIAL Routine 09/01/19 11:07 AM [facility]ELD ROUSTABOUT Stage 3 chronic kidney disease, unspecified whether stage 3a or 3b CKD (HCC) US RETROPERITONEAL COMPLETE Routine 09/01/2024 9:37 AM [facility]ELD ROUSTABOUT Stage 3 chronic kidney disease, unspecified whether stage 3a or 3b CKD (HCC) FL DESTR MALIG TRUNK,EXTREM 0.6-1 CM Routine 08/26/2024 9:26 AM [facility]IL FIELD ROUSTABOUT 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 FL DESTR MALIG TRUNK,EXTREM 0.6-1 CM Routine 08/17/2024 12:25 PM [facility]IL FIELD ROUSTABOUT 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 FL DESTROY PREMALIG LESION, 1ST LESION Routine 08/17/2024 12:25 PM [facility]IL FIELD ROUSTABOUT Actinic keratosis FL TANGNTL BX SKIN SINGLE LES Routine 08/17/2024 12:24 PM OIL FIELD ROUSTABOUT Neoplasm of uncertain behavior of skin DERMATOPATHOLOGY Routine 08/17/2024 3:33 AM OIL FIELD ROUSTABOUT Neoplasm of uncertain behavior of skin CARDIAC PROCEDURE ORDER 07/26/2024 FL PM DEVICE PROGR EVAL DUAL Routine 07/19/2024 8:47 AM [facility]IL FIELD ROUSTABOUT SSS (sick sinus syndrome) (HCC) EKG 12-LEAD Routine 07/19/2024 8:11 AM [facility]IL FIELD ROUSTABOUT SSS (sick sinus syndrome) (HCC) CARDIAC PROCEDURE ORDER 07/19/2024 CT LUNG SCREEN LOW DOSE Routine 06/14/20 24 1:47 PM [facility] FIELD ROUSTABOUT Nicotine dependence, cigarettes, uncomplicated from Last 3 Months or Most Recently Relevant to Health Maintenance Results * (ABNORMAL) URINE MICROSCOPIC ONLY REFLEX TO CULTURE (09/01/2024 11:37 AM OIL FIELD ROUSTABOUT) Reflex Status Culture not indicated 09/01/2024 12:36 [...] Unknown Collection / Unknown 09/01/2024 11:37 AM [facility] R[facility]ST[facility]OUT 09/01/2024 12:05 PM OIL FIELD ROUSTABOUT [facility] - 09/01/2024 12:36 PM OIL FIELD ROUSTABOUT Nataliia Cooper MD LAB - URINALYSIS ORD ERABLES [facility] [address] [place] [address], [facility] [phone] * (ABNORMAL) URINALYSIS REFLEX MICROSCOPIC REFLEX CULTURE (09/01/2024 11:37 AM OIL FIELD ROUSTABOUT) Color UA Yellow Straw, Yellow 09/01/2024 12:13 PM [facility] Clarity UA Slt Cloudy(A) Clear 09/01/2024 12:13 PM [facility] Specific Barlow UA 1.026 1.005 - 1.030 09/01/2024 12:13 [...] Unknown Collection / Unknown 09/01/2024 11:37 AM [facility] 09/01/2024 12:05 PM [facility] Narrative [facility] - 09/01/2024 12:13 PM [facility]ST[facility]OUT Nataliia Cooper MD LAB - URINALYSIS ORD ERABLES [address] [address], [facility] [phone] * (ABNORMAL) MICROALB/CREAT RATIO URINE RANDOM PANEL (09/01/2024 11:37 AM [facility]ELD ROUSTABOUT) Albumin Random Urine 755.4 Not Established ug/mL 09/01/2024 12:59 PM [facility] Comment:Result obtained by julio barrett. Creatinine Urine 161.04 Not Established mg/dL 09/01/2024 12:59 PM [facility] Urine Albumin/Creati nine Ratio 469(H) <30 mg/g 09/01/2024 12:59 PM [facility] Urine URINE SPECIMEN OBTAINED BY CLEAN CATCH PROCEDURE / Unknown Collection / Unknown 09/01/2024 11:37 AM [facility] 09/01/2024 12:10 PM [facility] Nataliia Cooper MD LAB - URINE CHEMISTR Y ORDERABLES [address] [address], [facility] [phone] * (ABNORMAL) PTH INTACT W/O CALCIUM (09/01/2024 11:07 AM [facility]STAB[facility]) PTH Intact 203.7(H) 8.0 - 77.0 pg/mL 09/01/2024 12:15 PM [facility] Blood BLOOD SPECIMEN / Unknown Lab Venipuncture / Unknown 09/01/2024 11:07 AM [facility] 09/01/2024 11:42 AM [facility] Nataliia Cooper MD LAB - CHEMISTRY SERENA PAGE [address] [address], [facility] [phone] * (ABNORMAL) URIC ACID BLOOD (09/01/2024 11:07 AM [facility]ELD ROUSTABOUT) Uric Acid 7.3(H) 3.5 - 7.2 mg/dL 09/01/2024 12:14 PM [facility]ST[facility]OUT [facility] Blood BLOOD SPECIMEN / Unknown Lab Venipuncture / Unknown 09/01/2024 11:07 AM [facility] 09/01/2024 11:42 AM [facility] Nataliia Cooper MD LAB - CHEMISTRY SERENA PAGE [address] [address], [place] [phone] * (ABNORMAL) HEMOGLOBIN A1C (09/01/2024 11:07 AM [facility] FI[facility] ROUSTABOUT) Hemoglobin A1c 7.7(H) <=5.6 % 09/01/2024 1:10 [...] to evaluate metabolic control in patients. Reference: [place] Diabetes Association, Standards of Care in Diabetes -2020 In patients 70 years and older consider HbA1c target range of 7.0-7.5% (Reference: Vickey Moser et al. OWEN. 2012) The Sebia assay for the measurement of HbA1c is a National Glycohemoglobin Standardization Program (NGSP) certified method. Blood BLOOD SPECIMEN / Unknown Lab Venipuncture / Unknown 09/01/2024 11:07 AM [facility] 09/01/2024 11:42 AM [facility] Nataliia Cooper MD LAB - CHEMISTRY SERENA PAGE Performing Organization Address [facility]/ZIP Co de Phone Number [address] [address], [facility] [phone] * VITAMIN D 25-HYDROXY (09/01/2024 11:07 AM OIL FIELD ROUSTABOUT) Vitamin D, 25 Hydroxy 43.2 30.0 - 80.0 ng/mL 09/01/2024 12:32 PM [facility]ELD R[facility]STABOUT [facility] Comment: The recommendations for 25-Hydroxy [...] Lab Venipuncture / Unknown 09/01/2024 11:07 AM [facility] 09/01/2024 11:42 AM [facility] R[facility]STABOUT Nataliia Cooper MD LAB - CHEMISTRY SERENA PAGE Performing Organization Address City/[facility]/ZIP Co de Phone Number [address] [address], [place] [phone] * (ABNORMAL) CBC WITH DIFFERENTIAL (09/01/2024 11:07 AM [facility]IL FIELD ROUSTABOUT) WBC 11.8(H) 4.0 - 10.7 x10E9/L 09/01/2024 [...] Lab Venipuncture / Unknown 09/01/2024 11:07 AM [facility] 09/01/2024 11:42 AM [facility] Nataliia Cooper MD LAB - HEMATOLOGY ORD ERABLES Performing Organization Address City/State/[facility] Co de Phone Number [facility] [address] [place] [address] [phone] * (ABNORMAL) RENAL FUNCTION PANEL (09/01/2024 11:07 AM [facility]) BUN 27(H) 7 - 26 mg/dL 09/01/2024 [...] 275 - 295 mOsm/kg 09/01/2024 12:14 PM [facility] eGFR by CKD-EPI 36(L) >=90 mL/min/1.7 3 m2 09/01/2024 12:14 PM [facility] Blood BLOOD SPECIMEN / Unknown Lab Venipuncture / Unknown 09/01/2024 11:07 AM [facility] 09/01/2024 11:42 AM [facility] Nataliia Cooper MD LAB - CHEMISTRY SERENA PAGE [facility] Organization Address City/State/[facility] Co de Phone Number [address] [address], [facility] [phone] * US Retroperitoneal Complete (09/01/2024 9:37 AM [facility]ELD R[facility]STAB[facility]) Anatomical Region Laterality Modality Abdomen Ultrasound 09/01/2024 9:45 AM [facility] Impressions 09/01/2024 9:50 AM [facility] R[facility]STABOUT Impression: 1. Normal-sized kidneys with normal echogenicity. 2. No hydronephrosis or nephrolithiasis. > Interpreting Provider: Denae Grijalva MD on 09/01/2024 9:50 AM Narrative 09/01/2024 9:50 AM [facility]OUT PROCEDURE: US RETROPERITONEAL COMPLETE DATE/TIME OF EXAM: [...] AM Nataliia Cooper MD US ORDERABLES * FL DESTR MALIG TRUNK,EXTREM 0.6-1 CM (08/26/2024 9:26 AM [facility]IL [facility]ELD ROUSTABOUT) Narrative Robb Howell MD - 08/26/2024 9:26 AM [facility]ST[facility] Amandeep Helton MD 08/26/2024 9:41 AM PROCEDURE: [...] tolerated the procedure well. Amandeep Helton MD [facility] Dermatology Resident Robb Howell MD PROCEDURE/MINOR SURG ICAL ORDERABLES * FL DESTR MALIG TRUNK,EXTREM 0.6-1 CM (08/17/2024 12:25 PM [facility]ELD R[facility]STABOUT) Narrative Robb Howell MD - 08/17/2024 12:25 PM [facility] Guy Gómez MD 08/17/2024 12:26 PM PROCEDURE: [...] Howell MD PROCEDURE/MINOR SURG ICAL ORDERABLES * FL DESTROY PREMALIG LESION, 1ST LESION (08/17/2024 12:25 PM [facility]ELD ROUSTABOUT) Narrative Robb Howell MD - 08/17/2024 12:25 PM [facility]OUT Guy Gómez MD 08/17/2024 12:25 PM Diagnosis and treatment options discussed. Cryotherapy (Liquid Nitrogen) to 1 lesion for 4-6 seconds. Number of cycles: 1. Wound care reviewed. Robb Howell MD PROCEDURE/MINOR SURG ICAL ORDERABLES * FL TANGNTL BX SKIN SINGLE LES (08/17/2024 12:24 PM [facility]IL [facility]ELD ROUSTABOUT) Narrative Robb Howell MD - 08/17/2024 12:24 PM [facility] Guy Gómez MD 08/17/2024 12:24 PM Risks, [...] ICAL ORDERABLES * DERMATOPATHOLOGY (08/17/2024 3:33 AM [facility]ST[facility]OUT) Case Report Dermatopathology Report Case: [id number] Authorizing Provider: Robb Howell MD Collected: 08/17/2024 03:33 AM Ordering Location: [facility] - Received: 08/18/2024 11:05 AM General Dermatology Pathologist: Rose Soto MD Specimen: Skin, left forearm 1:26 PM [facility] DERMATOPATHOLOGY LABORATORY Final Diagnosis Specimen A. SKIN, left forearm: SQUAMOUS CELL CARCINOMA IN SITU (PINK'S DISEASE) (D04.62) 1:26 PM [facility] DERMATOPATHOLOGY LABORATORY Clinical History Suspect NMSC 1:26 PM [facility] DERMATOPATHOLOGY LABORATORY Gross Description Specimen A: Received is one formalin filled container labeled with the patient's name and designated left forearm. The specimen consists of a shave biopsy measuring [id number] mm. Jar 0. 1:26 PM [facility] DERMATOPATHOLOGY LABORATORY Microscopic Description Specimen A. SKIN, left forearm: The epidermis shows parakeratosis, full thickness disorderly maturation of keratinocytes, mitoses at different levels, and dyskeratotic cells. 1:26 PM [facility] DERMATOPATHOLOGY LABORATORY Disclaimer An external and internal [...] purposes. Billing Codes Specimen Charges Stain Charges 21492 1 1:26 PM [facility] DERMATOPATHOLOGY LABORATORY Embedded Images 1:26 PM [facility] DERMATOPATHOLOGY LABORATORY Pathology/Cytolo gy TISSUE SPECIMEN FROM SKIN / Unknown 08/17/2024 3:33 AM [facility] 08/18/2024 11:05 AM [facility] Robb Howell MD LAB - PATHOLOGY/CYTO LOGY ORDERABLES DERMATOPATHOLOGY LABORATORY [facility] Department of Dermatology [address], [address] [phone] * CARDIAC PROCEDURE ORDER (07/26/2024) Only the most recent of2 resultswithin the time period is included. Narrative 07/26/2024 Ordered by an unspecified provider. Scanned Document CARDIAC SERVICES ORD ERABLES * FL PM DEVICE PROGR EVAL DUAL (07/19/2024 8:47 AM [facility]ST[facility]) Narrative Daily Bravo MD - 07/19/2024 8:47 AM [facility] Daily Bravo MD 07/19/2024 8:49 AM This is a 64 year old male with a H/O sick sinus syndrome . The patient received a Medtronic Advisa DR dual chamber pacemaker on 09/23/16. The patients device is functioning appropriately according to the atm servicer's recommendations with appropriate battery voltage, charge time, shock impedance (s), lead impedance (s) along with pacing and sensing thresholds. The patient will be scheduled for 3 month remote follow-up. Instructed to call with questions or problem. Daily Bravo MD PROCEDURE/MINOR SURG ICAL ORDERABLES * EKG 12-LEAD (07/19/2024 8:11 AM [facility]STAB[facility]) Pathologist [facility] Ventricular Rate 71 BPM [facility] Atrial Rate 71 BPM [facility] P-R Interval 244 ms [facility] QRS Duration ms 194 ms [facility] Q-T Interval ms 446 ms [facility] QTC Calculation (Bezet) 484 ms [facility] Calculated R [place] -85 degrees [facility] Calculated T [place] 34 degrees [facility] Interpretation EKG [...] 1:27:54 PM ANNIE ACEVEDO 07/19/2024 8:11 AM [facility] 07/19/2024 1:27 PM [facility] Daily Bravo MD ECG ORDERABLES ANNIE ACEVEDO * CT LUNG CANCER SCREEN LOW DOSE (06/14/2024 1:47 PM [facility]) Anatomical Region Laterality Modality Chest Computed Tomogra phy 06/14/2024 3:19 PM [facility] Impressions 06/14/2024 8:13 PM [facility] Impression: No pulmonary nodules identified. Lung-RADS category [...] Cancer. > Dictated by Naz Roblero MD, (vice president sales and marketing). I, Ruel Whitehead MD have personally reviewed and interpreted this examination/study. > Interpreting Provider: Ruel Whitehead MD on 06/14/2024 8:13 PM Narrative 06/14/2024 8:13 PM [facility] PROCEDURE: CT LUNG SCREEN LOW DOSE DATE/TIME [...] Cancer. > Dictated by Naz Roblero MD, (vice president sales and marketing). I, Ruel Whitehead MD have personally reviewed and interpreted this examination/study. > Interpreting Provider: Ruel Whiteehad MD on 06/14/2024 8:13 PM Becca Ford MD CT ORDERABLES from Last 3 Months or Most Recently Relevant to Health Maintenance Care Teams Radio Dispatcher Relationship Specialty Start Date End Date Dina Cloud PA-C [facility] [place] [address] PCP - General Physician Physical Science Teacher 07/10/20
--- OUTSIDE RECORDS SUMMARY | 2024-09-16 18:40 | XMS_ITS | Encounter Summary ---
Author Organization [facility] Address [address] [place] [address] Phone Care Team Providers Care Casing In Line Setter Name Role Phone Dina Cloud PAC Primary Care Provider + [phone] Lefty Sousa MD Unavailable [phone] Encounter Details Date Type Department Care Team (Late st Contact Info) Description 07/04/2021 Telephone [facility] [address] [place] [address] Lefty Sousa MD 10[address] [facility] [address] [address] Social History Tobacco Use Types [...] on file Legal Sex Male 11:32 AM FILE CLERK DATA ENTRY Gender Identity Not on file Sexual Orientation Not on file documented as of this encounter Miscellaneous Notes * Telephone Encounter - Monique Roberson - 07/04/2021 4:19 PM CST CALLED TO RESCHEDULE PATIENTS NO SHOW APPT, LEFT VM LETTER SENT OUT. CLERK DATA ENTRY documented in this encounter Plan of Treatment Upcoming Encounters Date Type Department Care Team (Late st Contact Info) Description 12/09/2024 8:30 AM CDT Office Visit [facility] [address] [place] [phone] Lefty Sousa MD 1052 [address] [facility] [address] [address] documented as of this encounter Visit Diagnoses Not on filedocumented in this encounter Additional Health Concerns Assessment Noted Time PHQ-9 Depression Total Score: 0 04/26/20 9:02 AM CDT documented as of this encounter Care Teams Casing In Line Setter Relationship Specialty Start Date End Date Dina Cloud PAC [address] [place] [address] PCP - General Physician Manager Post 05/25/20 Lefty Sousa MD [address] [place] [phone] Consulting Physician Hematology and Oncology 01/03/21 documented as of this encounter
--- OUTSIDE RECORDS SUMMARY | 2024-09-16 18:40 | XMS_ITS | Encounter Summary ---
Author Organization [facility] Address [address] [facility] [place] [address] Care Team Providers Care Configuration Manager Name Role Phone Dina Cloud PA-C Primary Care Provider Encounter Details Date Type Department Care Team (Late st Contact Info) Description 01/26/2023 Telephone [facility] - Centralized Scheduling [address] [place] [phone] Garry Tracey MD [address] [phone] Social History Tobacco Use Types Packs/Day Years [...] needs his prescription resent for Dexcom G7 Anodic Treater and Dexcom G7 sensor due to the prescritpion being out dated. Pt callback is [phone] documented in this encounter Plan of Treatment Upcoming Encounters Date Type Department Care Team (Late st Contact Info) Description 09/20/2024 9:30 AM HEAD START COORDINATOR Office Visit [facility] - Neurology [address] [place] [phone] Meredith Weiss MD [address] [place] [address] 1L [place] [phone] 10/18/2024 1:00 AM CDT Clinical Support [facility] - Cardiology [address] [place] [phone] 10/25/2024 9:00 AM CDT Office Visit [facility] - Cardiology [address] [place] [phone] Daily Bravo MD [address] [place] [address] 11/08/2024 3:40 PM CDT Office Visit [facility] - Endocrinology [address] [place] [phone] Garry Tracey MD [address] [place] [address] 2L [place] [phone] 12/15/2024 2:00 PM CDT Office Visit [facility] - Pulmonology [address] [place] [phone] Becca Ford MD [address] [place] [address] 2L [place] [address] 01/17/2025 1:10 AM CDT Clinical Support [facility] - Cardiology [address], [address] [phone] 02/24/2025 9:10 AM CDT Office Visit [facility] - Dermatology [address] [place] [address], [place] [address] Robb Howell MD [facility] S [facility] 3 [place] [address] 03/02/2025 9:00 AM CDT Office Visit [facility] - Nephrology [address] [place] [address], [place] [address] Nataliia Cooper MD [address] [facility] 3 [place] [address] 04/18/2025 1:10 AM CDT Clinical Support [facility] - Cardiology [address] [facility], [address] [phone] 07/18/2025 1:10 AM HEAD START COORDINATOR Clinical Support [facility] - Cardiology [address] [facility], [address] [phone] documented as of this encounter Visit Diagnoses Not on filedocumented in this encounter Care Teams Configuration Manager Relationship Specialty Start Date End Date Dina Cloud PA-C [address] [place] [phone] PCP - General Physician Instructor Painting 07/10/20 documented as of this encounter
--- OUTSIDE RECORDS SUMMARY | 2024-09-16 18:40 | XMS_ITS | Encounter Summary ---
Author Organization [facility] Address [address] [place] [address] Care Team Providers Care Residential Supervisor Name Role Phone Dina Cloud PA-C Primary Care Provider Encounter Details Date Type Department Care Team (Late st Contact Info) Description 01/26/2023 Telephone [facility] - Centralized Scheduling [address] [place] [phone] Garry Tracey MD [address] [phone] Social History Tobacco Use Types Packs/Day Years [...] they need the glucose reader called into [facility] on [facility] in [place] [phone] * Telephone Encounter - Fam Wilkerson - 01/26/2023 10:52 AM CDT PT needs Freestyle Raj 2 sensor orders sent to [facility] urgently, He has not been able to read glucose levels for 10 days Verified: [phone] Lexi Caregiver documented in this encounter Plan of Treatment Upcoming Encounters Date Type Department Care Team (Late st Contact Info) Description 09/20/2024 9:30 AM OFFICE CLERK ROUTINE Office Visit [facility] - Neurology [address] [place] [phone] Meredith Weiss MD [address] [place] [address] 1L [place] [phone] 10/18/2024 1:00 AM CDT Clinical Support [facility] - Cardiology [address] [place] [phone] 10/25/2024 9:00 AM CDT Office Visit [facility] - Cardiology [address] [place] [phone] Daily Bravo MD [address] [place] [address] 11/08/2024 3:40 PM CDT [facility] - Endocrinology [address] [place] [address] [place] [phone] Garry Tracey MD [address] [place] [address] 2L [place] [phone] 12/15/2024 2:00 PM CDT Office Visit [facility] - Pulmonology [address] [place] [address], [place] [address] Becca Ford MD [address] [place] [address] 2L DIV [place] [address] 01/17/2025 1:10 AM CDT Clinical Support [facility] - Cardiology [address] [place] [phone] 02/24/2025 9:10 AM CDT Office Visit [facility] - Dermatology [address] [place] [address], [place] [address] Robb Howell MD [address] [place] [address] 3L [place] [address] 03/02/2025 9:00 AM CDT [facility] Visit [facility] - Nephrology [address] [place] [address], [place] [address] Nataliia Cooper MD [address] [place] [address] 3L [place] [address] 04/18/2025 1:10 AM CDT Clinical Support [facility] - Cardiology [address] [place] [phone] 07/18/2025 1:10 AM OFFICE CLERK ROUTINE Clinical Support [facility] - Cardiology [address] [place] [phone] documented as of this encounter Visit Diagnoses Not on filedocumented in this encounter Care Teams Residential Supervisor Relationship Specialty Start Date End Date Dina Cloud PA-C [address] [place] [phone] PCP - General Physician Mixer Wet Pour 07/10/20 documented as of this encounter
--- OUTSIDE RECORDS SUMMARY | 2024-09-16 18:40 | XMS_ITS | Encounter Summary ---
Author Organization [facility] Address [address] [facility] [place] [address] Care Team Providers Care Atomic Physics Professor Name Role Phone Dina Cloud PA-C Primary Care Provider Encounter Details Date Type Department Care Team (Late Contact Info) Description 01/13/2023 Telephone [facility] - Centralized Scheduling [address] [place] [phone] Nathalie Hassan M, OD [address] [facility] [place] [phone] Social History Tobacco Use Types Packs/Day Years [...] (Late Contact Info) Description 09/20/2024 9:30 AM FINAL INSPECTOR PAPER Office Visit [facility] - Neurology [address] [place] [address], [place] [address] Meredith Weiss MD [address] [place] [address] 1L [place] [address] 10/18/2024 1:00 AM CDT [facility] [address] [facility], [address] [phone] 10/25/2024 9:00 AM CDT [facility], [address] [phone] Daily Bravo MD [address] [place] [address] 11/08/2024 3:40 PM CDT [facility] Endocrinology [address] [place] [address], [place] [address] Garry Tracey MD [address] [place] [address] 2L [place] [phone] 12/15/2024 2:00 PM CDT Office Visit [facility] - Pulmonology [address] [place] [address], [place] [address] Becca Ford MD [address] [place] [address] 2L DIV [place] [address] 01/17/2025 1:10 AM CDT Clinical Support [facility] - Cardiology [address] [facility], [address] [phone] 02/24/2025 9:10 AM CDT Office Visit [facility] - Dermatology [address] [place] [address], [place] [address] Robb Howell MD [address] [place] [address] 3 [place] [address] 03/02/2025 9:00 AM CDT Office Visit [facility] - Nephrology [address] [place] [address], [place] [address] Nataliia Cooper MD [address] [place] [address] 3 [place] [address] 04/18/2025 1:10 AM CDT Clinical Support [facility] - Cardiology [address] [place] [phone] 07/18/2025 1:10 AM FINAL INSPECTOR PAPER Clinical Support [facility] - Cardiology [address] [place] [address] [phone] documented as of this encounter Visit Diagnoses Not on filedocumented in this encounter Care Teams Atomic Physics Professor Relationship Specialty Start Date End Date Dina Cloud PA-C [address] [place] [phone] PCP - General Physician Textile Designer 07/10/20 documented as of this encounter
--- OUTSIDE RECORDS SUMMARY | 2024-09-16 18:40 | XMS_ITS | Encounter Summary ---
Author Organization [facility] Address [address] [place] [address] Phone Care Team Providers Care Sewing Line Baler Name Role Phone Dina Cloud PAC Primary Care Provider + [phone] Lefty Sousa MD Unavailable [phone] Reason for Visit * Reason Comments Medication Refill Encounter Details Date Type Department Care Team (Late st Contact Info) Description 07/21/2023 Refill [facility] [address] [place] [address] Lefty Sousa MD [address] [facility] [address] [address] Medication Refill Social History Tobacco [...] on file Legal Sex Male 11:32 AM NURSING PROGRAM CHAIR Gender Identity Not on file Sexual Orientation Not on file documented as of this encounter Miscellaneous Notes * Telephone Encounter - Norma Bond RN - 07/21/2023 7:53 AM NURSING PROGRAM CHAIR Please fill if appropriate ING PROGRAM CHAIR documented in this encounter Plan of Treatment Upcoming Encounters Date Type Department Care Team (Late st Contact Info) Description 12/09/2024 8:30 AM CDT Office Visit [facility] [address] [place] [address] Lefty Sousa MD [address] [place] [address] [address] documented as of this encounter Visit Diagnoses Diagnosis Anemia, unspecified type documented in this encounter Additional Health Concerns Assessment Noted Time PHQ-9 Depression Total Score: 0 04/26/20 9:02 AM CDT documented as of this encounter Care Teams Sewing Line Baler Relationship Specialty Start Date End Date Dina Cloud PAC [address] [place] [address] PCP - General Physician Baseball Pitcher 05/25/20 Lefty Sousa MD [address] [place] [phone] Consulting Physician Hematology and Oncology 01/03/21 documented as of this encounter
--- OUTSIDE RECORDS SUMMARY | 2024-09-16 18:40 | XMS_ITS | Encounter Summary ---
Author Organization [facility] Address [address] [facility] [place] [address] Care Team Providers Care Leather Shaver Name Role Phone Dina Cloud PA-C Primary Care Provider Reason for Visit * Reason Onset Date Comments Medication Prior Auth Request 11/20/2023 Encounter Details Date Type Department Care Team (Late st Contact Info) Description 11/20/2023 Telephone [facility] - Cardiology [address] [facility] [address] [place] [address] Kika Ocampo, PA [address] [place] [address] Medication Prior Auth Request Social History Tobacco [...] 140 MG/ML prefilled syringe Call Back Number: [phone] documented in this encounter Plan of Treatment Upcoming Encounters Date Type Department Care Team (Late st Contact Info) Description 09/20/2024 9:30 AM CHOCOLATE REFINING ROLLER Office Visit [facility] - Neurology [address] [place] [address], [place] [phone] Meredith Weiss MD [address] [place] [address] 1L [place] [phone] 10/18/2024 1:00 AM CDT Clinical Support [facility] - Cardiology [address] [place] [phone] 10/25/2024 9:00 AM CDT Office Visit [facility] - Cardiology [address] [place] [phone] Daily Bravo MD [address] [place] [address] 11/08/2024 3:40 PM CDT Office Visit [facility] - Endocrinology [address] [place] [address], [place] [phone] Garry Tracey MD [address] [place] [address] 2L [place] [phone] 12/15/2024 2:00 PM CDT Office Visit [facility] - Pulmonology [address] [place] [phone] Becca Ford MD [address] [facility] 2L DIV OF [place] [address] 01/17/2025 1:10 AM CDT Clinical Support [facility] - Cardiology [address] [facility], [address] [phone] 02/24/2025 9:10 AM CDT Office Visit [facility] - Dermatology [address] [place] [address], [place] [address] Robb Howell MD [address] [facility] 3L [place] [address] 03/02/2025 9:00 AM CDT Office Visit [facility] - Nephrology [address] [place] [address], [place] [address] Nataliia Cooper MD [address] [facility] 3L [place] [address] 04/18/2025 1:10 AM CDT Clinical Support [facility] - Cardiology [address] [facility], [address] [phone] 07/18/2025 1:10 AM CHOCOLATE REFINING ROLLER Clinical Support [facility] - Cardiology [address] [facility], [address] [phone] documented as of this encounter Visit Diagnoses Not on filedocumented in this encounter Care Teams Leather Shaver Relationship Specialty Start Date End Date Dina Cloud PA-C [address] [place] [phone] PCP - General Physician Pedodontist 07/10/20 documented as of this encounter
--- NOTE | 2024-09-16 19:08 | P.HP_ITS ---
H&P: HPI History of Present Illness Date/Time: 09/16/24 19:08 Chief Complaint: N/V/D Narrative: 64 y/o M presents here with nausea, vomiting, and diarrhea with PMH of CVA, COPD, diabetes, AGNIESZKA (refuses CPAP), CKD, chronic anemia, CAD, [place], hypertension, and hyperlipidemia. The patient presents here from home for further evaluation of nausea, vomiting, diarrhea, abdominal pain, and confusion. The following HPI was obtained through patient interview, however patient difficult historian. He reports he initially developed nausea, vomiting, and diarrhea that started yesterday afternoon. Describes the abdominal pain as diffuse, intermittent, and worsens with vomiting. Patient then became confused over the last 24 hours. The patient was unable to do tell the ED provider the month or year which is new to the patient. The symptoms are also accompanied by fever, cough, congestion, and shortness of breath. Initially endorsed chest pain. Now denying and unable to elaborate. He endorses marijuana use, continued to deny amphetamine use. Initial VS at presentation: 97.6? F, HR 80, R 16, 150/71, and 100% on RA. ED workup showed: WBC 16.3, hemoglobin 16.1 (previously 11.3 in 2022), creatinine 1.8 and GFR 38 (previously 1.1 and GFR >60 in 2022), lactic 2.8, ammonia negative, CK 535, troponin 0.045, TSH 1.84. Review of Systems Review of Systems: All systems reviewed & are unremarkable except as noted in HPI and below (Limited/unreliable) [facility] Past Medical History Medical History (Updated 09/16/24 @ 19:39 by Elizabeth Elkins, ESTHER) Prostate abscess Chronic anemia Chronic obstructive pulmonary disease Tobacco dependence Type 2 diabetes mellitus Cerebrovascular accident 2015: Right frontoparietal CVA with left hemiparesis. January 2019: Left parietooccipital CVA presenting with confusion and aphasia. 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 Obstructive sleep apnea Refuses CPAP. Chronic kidney disease, stage 3 Baseline creatinine is around 1.4. Vitamin D deficiency Coronary artery disease Patient reports history of 2 MIs; no history of cardiac catheterization. 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 Surgical History Surgical History (Updated 09/16/24 @ 19:18 by Elizabeth Elkins APRN) History of back surgery History of permanent cardiac pacemaker placement Due to sick sinus rhythm. History of transurethral resection of prostate History of hernia surgery Family History Family History Mother Cerebrovascular accident Acute myocardial infarction Hypertension Father Diabetes mellitus Cerebrovascular accident Hypertension Social History Social History (Updated 02/23/23 @ 13:24 by Ros Cordova PA-C) Social History: Surrogate decision maker: Darling Rivers (sister). Code status: Full code. Smoking packs per day: 1 Smoking cigarettes per day: 20.0 Years smoked: 45 Smoking pack-years: 45.00 Smoking status: Current every day smoker Tobacco type: cigarettes Alcohol intake: current Drinks per week: 1 Substance use: never Substance use type: marijuana and methamphetamine Other substance usage details: daily Last use: 02/22/2023 Do You Feel Safe in your Home?: Yes Lack of Transportation: No Lack of Food: Never True Current Housing: I Have Housing Concerned About Future Housing: No Difficulty Paying Gas/Electric Bills: No Difficulty Paying for Meds: No Currently Unemployed: No Education: High School Diploma/GED Difficulty w/ Childcare or Family Care: No Living arrangements: alone Additional living arrangements comments: The patient lives in his own apartment in [place]. Occupation/Education: unemployed Additional occupation/education comments: On disability. Spiritual care concerns: No Meds Home Medications and Allergies Home Medications ?Medication ?Instructions ?Recorded ?Confirmed ?Type amitriptyline 100 mg tablet 100 mg PO HS 03/12/20 09/16/24 History atorvastatin 80 mg tablet 80 mg PO HS 03/12/20 09/16/24 History clopidogrel 75 mg tablet 75 mg PO DAILY 03/12/20 09/16/24 History ergocalciferol (vitamin D2) 1,250 1,250 mcg PO WEEKLY 03/12/20 09/16/24 History mcg (50,000 unit) capsule folic acid 1 mg tablet 1 mg PO DAILY 03/12/20 09/16/24 History levetiracetam 250 mg tablet 250 mg PO TID 03/12/20 09/16/24 History lisinopril 20 mg tablet 20 mg PO DAILY 03/12/20 09/16/24 History metoprolol succinate 50 mg 25 mg PO DAILY 03/12/20 09/16/24 History tablet,extended release 24 hr aspirin 81 mg chewable tablet 81 mg PO DAILY 05/28/20 09/16/24 History gabapentin 300 mg capsule 300 mg PO TID #0 caps 05/30/20 09/16/24 Rx blood-glucose meter,continuous 02/23/23 09/16/24 History (Dexcom G7 Nitrocellulose Maker) blood-glucose sensor (Dexcom G7 02/23/23 09/16/24 History Sensor device) empagliflozin 10 mg tablet 10 mg PO DAILY 02/23/23 09/16/24 History (Jardiance) evolocumab 140 mg/mL subcutaneous 140 mg subcut [id number] 02/23/23 09/16/24 History syringe (Repatha Syringe) famotidine 20 mg tablet 20 mg PO BID 02/23/23 09/16/24 History hydrocodone 10 mg-acetaminophen 1 tablet PO Q8H pain 02/23/23 09/16/24 History 325 mg tablet insulin glargine 100 unit/mL 45 unit subcut HS 02/23/23 09/16/24 History subcutaneous solution (Lantus U-100 Insulin) oxybutynin chloride 15 mg 15 mg PO DAILY 02/23/23 09/16/24 History tablet,extended release 24 hr tamsulosin 0.4 mg capsule 0.4 mg PO HS 02/23/23 09/16/24 History albuterol sulfate 90 mcg/actuation 2 puff inhalation Q4H PRN 09/16/24 09/16/24 History aerosol inhaler shortness of breath or wheezing ammonium lactate 12 % lotion 1 applic topical BID 09/16/24 09/16/24 History bupropion HCl (smoking deter) 150 150 mg PO .q12hr 09/16/24 09/16/24 History mg tablet,12 hr sustained-release(smoking deterrent) fenofibrate 150 mg capsule 150 mg PO DAILY 09/16/24 09/16/24 History ferrous sulfate 325 mg (65 mg 325 mg PO TID 09/16/24 09/16/24 History iron) tablet (Feosol) gabapentin 600 mg tablet 600 mg PO TID 09/16/24 09/16/24 History insulin glargine 100 unit/mL (3 40 unit subcut QPM 09/16/24 09/16/24 History mL) subcutaneous pen (Lantus Solostar U-100 Insulin) meloxicam 7.5 mg tablet 7.5 mg PO DAILY 09/16/24 09/16/24 History nateglinide 120 mg tablet 120 mg PO TID 09/16/24 09/16/24 History pantoprazole 40 mg tablet,delayed 40 mg PO QAM 09/16/24 09/16/24 History release topiramate 100 mg tablet (Topamax) 100 mg PO BID 09/16/24 09/16/24 History Allergies Allergy/AdvReac Type Severity Reaction Status Date / Time Penicillins Allergy Unknown Other Verified 09/16/24 15:50 Vital Signs Vital Signs - 24 hr 09/16/24 12:08 09/16/24 15:40 09/16/24 15:44 Temperature 97.6 F 97.9 F Pulse Rate 80 98 96 Respiratory Rate 16 14 17 Blood Pressure 150/71 H 164/96 H Pulse Oximetry 100 100 100 09/16/24 15:46 09/16/24 16:02 09/16/24 16:19 Temperature Pulse Rate 95 88 108 H Respiratory Rate 15 10 L 24 H Blood Pressure 182/90 H 200/98 H 174/93 H Pulse Oximetry 100 100 100 09/16/24 16:56 09/16/24 17:00 09/16/24 17:15 Temperature Pulse Rate 105 H 104 H 108 H Respiratory Rate 15 16 21 H Blood Pressure Pulse Oximetry 78 L 100 09/16/24 17:30 09/16/24 17:45 09/16/24 18:00 Temperature Pulse Rate 108 H 118 H 122 H Respiratory Rate 18 23 H 23 H Blood Pressure Pulse Oximetry 09/16/24 18:15 09/16/24 18:43 09/16/24 18:47 Temperature Pulse Rate 110 H 107 H 108 H Respiratory Rate 18 19 19 Blood Pressure Pulse Oximetry 100 Exam Const: General: comfortable and no acute distress Other: , male, restless, nontoxic appearance HENMT: Face/Nose/Sinus: Normal nares present Mouth: Yes moist mucous membranes Eyes: General: appearance normal, both eyes and all related structures Sclera: sclerae normal Pupils: Equal, round and reactive pupils present EOM: EOMs intact bilaterally Resp: Effort & Inspection: normal respiratory effort Auscultation: clear to auscultation bilaterally Cardio: Rate: regular rate Rhythm: regular rhythm Other: S1-S2 present without murmur, rub, ectopy GI: Other: Abdomen rounded, soft, nontender. Normoactive bowel sounds in all quadrants. Skin: General skin exam: normal color and no rashes or lesions noted Wounds: no wounds Neuro: Speech: normal speech Sensory Exam: normal sensation Other: Moving all extremities. Disoriented. Follows commands. Extrem: General: normal to inspection Psych: Mental Status: mental status grossly normal Affect: Anxious affect present Other: +restless. Following commands. Poor in sight and judgment at present. H&P: Results Labs Labs: Short CBC 09/16/24 Range/Units 15:36 WBC 16.3 H (4.5-10.0) K/mm3 Hgb 16.1 D (14.0-18.0) g/dL Hct 45.9 (42.0-52.0) % Plt Count 344 D (150-375) k/mm3 BMP 09/16/24 09/16/24 14:54 15:36 Sodium 136 L Potassium 4.3 Chloride 98 Carbon Dioxide 18 L BUN 21 H Creatinine 1.80 H 1.45 H Glucose 192 H Calcium 11.6 H Cardiac Enzymes 09/16/24 09/16/24 09/16/24 Range/Units 15:36 15:36 15:36 Total Creatine Kinase Cancelled 535 H Troponin I Cancelled 0.045 H* Liver Function 09/16/24 Range/Units 15:36 Total Bilirubin 0.9 (0.2-1.3) mg/dL AST 32 (17-59) U/L ALT 32 (6-50) U/L Alkaline Phosphatase 142 H (38-126) U/L Albumin 4.7 (3.5-5.1) g/dL Urine 09/16/24 Range/Units 16:21 Urine Color Yellow (Yellow) Urine Appearance Clear (Clear) Urine pH 5.5 (5.0-9.0) Ur Specific [place] > 1.045 H (1.001-1.035) Urine Protein 4+ H (Negative) mg/dL Urine Glucose (UA) 3+ H (Negative) mg/dL Assessment and Plan Assessment and plan (1) Nausea & vomiting: Qualifiers: Vomiting type: unspecified Qualified Code(s): R11.2 - Nausea with vomiting, unspecified Code(s): R11.2 - Nausea with vomiting, unspecified Status: Acute Assessment and Plan: - CT abd/pelvis: No acute intra-abdominal pathology, as detailed above. - suspect viral etiology - viral PCR negative for COVID/flu/rsv - antiemetics prn - hgb elevated compared to baseline and CONNIE raise concerns for dehydration, will treat with IV fluids (2) CONNIE (acute kidney injury): Code(s): N17.9 - Acute kidney failure, unspecified Status: Acute Assessment and Plan: - creatinine 1.8 and GFR 38, previously 1.1 and GFR >60 in 01/2023 - IV fluids: 2L bolus -> 100 mL/hr and monitor I&Os - trend renal function - trend electrolytes, correct as needed (3) Elevated troponin: Code(s): R79.89 - Other specified abnormal findings of blood chemistry Status: Acute Assessment and Plan: - chest CTA: 1. No pulmonary embolism. Assessment limited in the basilar segmental and nondiagnostic in the basilar subsegmental pulmonary arteries due to respiratory motion. 2. Cardiomegaly. 3. Small sliding-type hiatal hernia versus esophagitis with wall thickening at the distal esophagus. - EKG, initial: Ectopic atrial tachycardia, right axis deviation, right bundle branch block, left ventricular hypertrophy and ST-T change anterolateral infarct age indeterminate, inferior infarct age indeterminate ST elevation in anterolateral leads suggestive of myocardial aneurysm. - repeat EKG - Troponin: 0.045 -> 0.054 -> 0.060 - ASA 324 given - cardiology consulted, awaiting recs - telemetry monitoring (4) Elevated CK: Code(s): R74.8 - Abnormal levels of other serum enzymes Status: Acute Assessment and Plan: - CK 535, trend - psychomotor agitation noted in ED and tox screen +for marijuana and amphetamines. prescription monitoring program reviewed, no stimulants prescribed - IV fluids (5) Type 2 diabetes mellitus: Qualifiers: Diabetes mellitus complication status: without complication Diabetes mellitus terminal manager insulin use: with terminal manager use Qualified Code(s): E11.9 - Type 2 diabetes mellitus without complications; Z79.4 - care home (current) use of insulin Code(s): E11.9 - Type 2 diabetes mellitus without complications Status: Acute Assessment and Plan: - hypoglycemia protocol - POC blood glucose ACHS - home medication: Hold Jardiance. Continue Lantus 40 units HS - correct regimen ordered - moderate dose TIDWM - A1C 7.4% in 2022, update (6) Essential hypertension: Code(s): I10 - Essential (primary) hypertension Status: Chronic Assessment and Plan: - chronic, currently 174/93 - continue home medications: Lisinopril 20 mg daily, Metoprolol 25 mg PO daily - monitor Plan Suspect alteration secondary to amphetamine, psychomotor agitation on exam consistent with stimulant abuse. Will monitor. Hold home [place] until confusion resolves. Diet: Heart healthy GI Prophylaxis: Not currently indicated DVT Prophylaxis: SCDs Lines: Peripheral Code Status: Full code Quality VTE Prophylaxis VTE prophylaxis: mechanical ordered Hospitalist MIPS Advance Care Plan I have confirmed that the patient's Advanced Care Plan is present, code status is documented, or surrogate decision maker is listed in patient medical record.: Yes Medication Reconciliation I have utilized all available resources to obtain, update and review the patients current medications (includes all prescriptions, OTC, herbals, cannabis, and nutritional supplements).: Yes
[2024-09-16 19:17] LABS: Lactic Acid 1.4 mmol/L (0.7-2.0)
[2024-09-16 19:46] LABS: Troponin I 0.054 ng/mL (0.000-0.034)
--- NOTE | 2024-09-16 19:52 | ADMGEN ---
This patient, Basilio Riley, was admitted to IMU Room 206-02. Patient/family oriented to hospital policies and general routines including ID bracelet, bed and alarms, visiting hours, pain management, procedures, bathroom and other care routines, personal items, smoking policy, room service/diet, and visiting hours. Information on how to activate the Rapid Response Team has been discussed. Patient/Family are encouraged to report perceived risks to care and to ask questions if they do not understand what they are told or what they should do.
[2024-09-16 20:25] LABS: Glucose Point of Care 132 mg/dl (65-105)
--- NOTE | 2024-09-16 22:59 | ECG_ITS ---
Test Date: 2024-09-16 23:07:51 Measurements Intervals Taylor Rate: 95 P: -61 PA: 150 QRS: -83 QRSD: 186 T: 0 QT: 392 QTc: 495 Interpretive Statements ECTOPIC ATRIAL RHYTHM RIGHT BUNDLE BRANCH BLOCK LEFT VENTRICULAR HYPERTROPHY AND ST-T CHANGE ANTEROLATERAL INFARCT, AGE INDETERMINATE INFERIOR INFARCT, AGE INDETERMINATE ST ELEVATION IN ANTEROLAT/INF LEADS SUGGESTS MYOCARDIAL ANEURYSM ABNORMAL ECG Compared to ECG 09/16/2024 15:29:45 HEART RATE HAS DECREASED Electronically Signed On 09-17-2024 07:43:19 PIPE ROLLER by Leonardo Song D.O.
[2024-09-16] MEDS: ASPIRIN 81 MG CHEWABLE TABLET 324 MG PO (23:54)
[2024-09-16] MEDS: LACTATED RINGERS 1,000 ML 100 ML IV CONT (23:54)
[2024-09-17] VITALS (16 sets, daily range): BP systolic 118–158; BP diastolic 50–81; PULSE 70–105; RESP 14–22; TEMP 36.2–37; O2SAT 96–100
[2024-09-17 05:20] LABS: Basophils Absolute Auto 0.1 K/mm3 (0.0-0.1); Basophils Percent Auto 0.3 % (0.2-1.2); Eosinophils Absolute Auto 0.2 K/mm3 (0-0.3); Eosinophils Percent Auto 1.2 % (0-4.4); Hematocrit 42.3 % (42.0-52.0); Hemoglobin 14.3 g/dL (14.0-18.0); Immature Granulocyte Absolute 0.07 K/mm3 (0.00-0.031); Immature Granulocyte Percent A 0.5 % (0-0.5); Lymphocytes Absolute Auto 3.88 K/mm3 (0.9-3.2); Lymphocytes Percent Auto 26.5 % (18.3-44.2); Mean Corpuscular HGB Conc 33.8 g/dl (32-36); Mean Corpuscular Volume 103.4 fl (80-100); Mean Platelet Volume 9.7 fl (7.4-10.4); Monocytes Absolute Auto 1.4 K/mm3 (0.1-0.6); Monocytes Percent Auto 9.6 % (2.6-8.5); Neutrophils Percent Auto 61.9 % (45.5-73.1); Platelet Count Result 281 k/mm3 (150-375); Red Blood Count 4.09 M/mm3 (4.6-6.20); White Blood Count 14.6 K/mm3 (4.5-10.0)
[2024-09-17 05:29] LABS: Hemoglobin A1C 7.6 % (<5.7)
[2024-09-17 05:34] LABS: Alanine Aminotransferase 26 U/L (6-50); Albumin Level 3.9 g/dL (3.5-5.1); Alkaline Phosphatase 107 U/L (38-126); Anion Gap 8 mmol/L (4-12); Aspartate Amino Transferase 30 U/L (17-59); Bilirubin,Total 0.6 mg/dL (0.2-1.3); Blood Urea Nitrogen 17 mg/dL (9-20); Calcium 10.4 mg/dL (8.4-10.2); Carbon Dioxide 28 mmol/L (22-30); Chloride 103 mmol/L (98-107); Creatine Kinase 397 U/L (55-170); Estimated CRCL calculation 55 ml/min; Estimated Glomerular Filt Rate 53; Glucose 128 mg/dL (65-110); Magnesium 1.6 mg/dL (1.6-2.3); Phosphorus 2.1 mg/dL (2.5-4.5); Potassium 4.1 mmol/L (3.4-5.0); Sodium 139 mmol/L (137-145)
[2024-09-17] MEDS: levETIRAcetam 250 MG TABLET PO ×3 (08:13→17:44)
[2024-09-17] MEDS: buPROPion HCL SR (12 HR) 150 MG TAB PO ×2 (08:14→20:44)
[2024-09-17] MEDS: FERROUS SULFATE 325 MG TABLET DR BY MOUTH ×3 (08:14→17:44)
[2024-09-17] MEDS: lisinopriL 20 MG TABLET PO (08:14)
[2024-09-17] MEDS: CLOPIDOGREL BISULFATE 75 MG TABLET PO (08:14)
[2024-09-17] MEDS: MELOXICAM 7.5 MG TABLET PO (08:14)
[2024-09-17] MEDS: FAMOTIDINE 20 MG TABLET PO ×2 (08:14→20:45)
[2024-09-17] MEDS: oxyBUTYnin CHLORIDE XL 5 MG TAB.ER.24 15 MG PO (08:14)
[2024-09-17] MEDS: ASPIRIN 81 MG CHEWABLE TABLET PO (08:14)
[2024-09-17] MEDS: METOPROLOL SUCCINATE EXT REL 25 MG TABCR PO (08:15)
[2024-09-17] MEDS: PANTOPRAZOLE 40 MG TABLET PO (08:15)
[2024-09-17] MEDS: LACTATED RINGERS 1,000 ML 100 ML IV CONT ×2 (08:15→17:46)
[2024-09-17] MEDS: TOPIRAMATE 100 MG TABLET PO ×2 (08:16→20:53)
[2024-09-17] MEDS: FOLIC ACID 1 MG TABLET PO (08:16)
[2024-09-17] MEDS: LACTIC ACID 12% LOTION 225 BTL 1 APPLIC TOPICAL ×2 (08:17→17:45)
[2024-09-17] MEDS: GABAPENTIN 300 MG CAPSULE 900 MG PO ×2 (08:24→12:25)
[2024-09-17 08:47] LABS: Glucose Point of Care 138 mg/dl (65-105)
--- NOTE | 2024-09-17 10:09 | P.PNIM_ITS ---
Progress Note: A&P Assessment and Plan (1) Nausea & vomiting: Qualifiers: Vomiting type: unspecified Qualified Code(s): R11.2 - Nausea with vomiting, unspecified Code(s): R11.2 - Nausea with vomiting, unspecified Status: Acute Assessment and Plan: - CT abd/pelvis: No acute intra-abdominal pathology, as detailed above. - suspect viral etiology - viral PCR negative for COVID/flu/rsv - antiemetics prn - hgb elevated compared to baseline and CONNIE raise concerns for dehydration, will treat with IV fluids (2) CONNIE (acute kidney injury): Code(s): N17.9 - Acute kidney failure, unspecified Status: Acute Assessment and Plan: - creatinine 1.8 and GFR 38, previously 1.1 and GFR >60 in 01/2023 - IV fluids: 2L bolus -> 100 mL/hr and monitor I&Os - trend renal function - trend electrolytes, correct as needed (3) Elevated troponin: Code(s): R79.89 - Other specified abnormal findings of blood chemistry Status: Acute Assessment and Plan: -no further workup resolved - chest CTA: 1. No pulmonary embolism. Assessment limited in the basilar segmental and nondiagnostic in the basilar subsegmental pulmonary arteries due to respiratory motion. 2. Cardiomegaly. 3. Small sliding-type hiatal hernia versus esophagitis with wall thickening at the distal esophagus. - EKG, initial: Ectopic atrial tachycardia, right axis deviation, right bundle branch block, left ventricular hypertrophy and ST-T change anterolateral infarct age indeterminate, inferior infarct age indeterminate ST elevation in anterolateral leads suggestive of myocardial aneurysm. - repeat EKG - Troponin: 0.045 -> 0.054 -> 0.060 - ASA 324 given - cardiology consulted signed - telemetry monitoring (4) Elevated CK: Code(s): R74.8 - Abnormal levels of other serum enzymes Status: Acute Assessment and Plan: - CK 535, trend - psychomotor agitation noted in ED and tox screen +for marijuana and amphetamines. 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 Continue Lantus 40 units HS - correct regimen ordered - moderate dose TIDWM - A1C 7.4% in 2022, update (6) Essential hypertension: Code(s): I10 - Essential (primary) hypertension Status: Chronic Assessment and Plan: - chronic, currently 174/93 - continue home medications: Lisinopril 20 mg daily, Metoprolol 25 mg PO daily - monitor (7) Cannabinoid hyperemesis syndrome: Code(s): R11.2 - Nausea with vomiting, unspecified; F12.90 - Cannabis use, unspecified, uncomplicated Status: Acute Assessment and Plan: Advised on smoking cessation Zofran p.r.n. Monitor electrolytes Plan Suspect alteration secondary to amphetamine, psychomotor agitation on exam consistent with stimulant abuse. Will monitor. Hold home [place] until confusion resolves. Diet: Heart healthy GI Prophylaxis: Not currently indicated DVT Prophylaxis: SCDs Lines: Peripheral Code Status: Full code Subjective Date/time seen: 09/17/24 10:09 Interval history: Patient endorses using marijuana and amphetamines. Possible nausea and vomiting due to cyclic vomiting by [facility]. Review of Systems Review of Systems: All systems reviewed & are unremarkable except as noted in HPI and below (Limited/unreliable) Exam Narrative: restless, disoriented. heart lung fine. Const: General: comfortable and no acute distress Other: , male, restless, nontoxic appearance HENMT: Face/Nose/Sinus: Normal nares present Mouth: Yes moist mucous membranes Eyes: General: appearance normal, both eyes and all related structures Sclera: sclerae normal Pupils: Equal, round and reactive pupils present EOM: EOMs intact bilaterally Resp: Effort & Inspection: normal respiratory effort Auscultation: clear to auscultation bilaterally Cardio: Rate: regular rate Rhythm: regular rhythm Other: S1-S2 present without murmur, rub, ectopy GI: Other: Abdomen rounded, soft, nontender. Normoactive bowel sounds in all quadrants. Skin: General skin exam: normal color and no rashes or lesions noted Wounds: no wounds Neuro: Cranial nerves: Yes Equal, round and reactive pupils present Speech: normal speech Sensory Exam: normal sensation Other: Moving all extremities. Disoriented. Follows commands. Extrem: General: normal to inspection Psych: Mental Status: mental status grossly normal Affect: Anxious affect present Other: +restless. Following commands. Poor in sight and judgment at present. Objective Data Vital Signs Vital Signs: Vital Signs - 24 hr 09/16/24 12:08 09/16/24 15:40 09/16/24 15:44 Temperature 97.6 F 97.9 F Pulse Rate 80 98 96 Respiratory Rate 16 14 17 Blood Pressure 150/71 H 164/96 H Pulse Oximetry 100 100 100 Oxygen Delivery 09/16/24 15:46 09/16/24 16:02 09/16/24 16:19 Temperature Pulse Rate 95 88 108 H Respiratory Rate 15 10 L 24 H Blood Pressure 182/90 H 200/98 H 174/93 H Pulse Oximetry 100 100 100 Oxygen Delivery 09/16/24 16:56 09/16/24 17:00 09/16/24 17:15 Temperature Pulse Rate 105 H 104 H 108 H Respiratory Rate 15 16 21 H Blood Pressure Pulse Oximetry 78 L 100 Oxygen Delivery 09/16/24 17:30 09/16/24 17:45 09/16/24 18:00 Temperature Pulse Rate 108 H 118 H 122 H Respiratory Rate 18 23 H 23 H Blood Pressure Pulse Oximetry Oxygen Delivery 09/16/24 18:15 09/16/24 18:43 09/16/24 18:47 Temperature Pulse Rate 110 H 107 H 108 H Respiratory Rate 18 19 19 Blood Pressure Pulse Oximetry 100 Oxygen Delivery 09/16/24 20:00 09/16/24 20:00 09/16/24 20:06 Temperature 99.1 F Pulse Rate 101 H 101 H 100 Respiratory Rate 22 H 22 H Blood Pressure 194/90 H Pulse Oximetry 99 99 Oxygen Delivery Room Air 09/16/24 22:00 09/16/24 23:47 09/17/24 00:00 Temperature 99.2 F Pulse Rate 92 100 105 H Respiratory Rate 22 H 22 H Blood Pressure 159/91 H Pulse Oximetry 96 96 Oxygen Delivery Room Air 09/17/24 00:00 09/17/24 02:00 09/17/24 03:38 Temperature 98.1 F Pulse Rate 105 H 98 100 Respiratory Rate 22 H Blood Pressure 121/73 Pulse Oximetry 98 Oxygen Delivery 09/17/24 03:43 09/17/24 03:43 09/17/24 05:46 Temperature Pulse Rate 94 94 92 Respiratory Rate 22 H Blood Pressure Pulse Oximetry 98 Oxygen Delivery Room Air 09/17/24 08:00 09/17/24 08:00 09/17/24 08:15 Temperature Pulse Rate 99 76 Respiratory Rate Blood Pressure Pulse Oximetry Oxygen Delivery Room Air 09/17/24 08:21 Temperature 98.6 F Pulse Rate 96 Respiratory Rate 14 Blood Pressure 158/81 H Pulse Oximetry 100 Oxygen Delivery Intake/Output Intake/Output: Intake & Output 09/14/24 09/15/24 09/16/24 09/17/24 23:59 23:59 23:59 23:59 Intake Total 1000 835 Output Total 400 400 Balance 600 435 Meds/Results Medications: Active Medications Generic Name Dose Route Start Last Admin Trade Name Freq PRN Reason Stop Dose Admin Albuterol 2 puff 09/16/24 22:15 Albuterol Sulfate (*Sp) Aerosol 1 Puff INHALATION Q4HRT PRN shortness of breath or wheezing Amitriptyline HCl 100 mg 09/17/24 21:00 Amitriptyline Hcl 25 Mg Tablet PO HS COUNTS INCLUDE 234 BEDS AT [facility] Aspirin 81 mg 09/17/24 09:00 09/17/24 08:14 Aspirin 81 Mg Chewable Tablet PO 81 mg DAILY ANDRES Administration Atorvastatin Calcium 80 mg 09/17/24 21:00 Atorvastatin 40 Mg Tablet PO HS COUNTS INCLUDE 234 BEDS AT [facility] Bupropion HCl 150 mg 09/17/24 09:00 09/17/24 08:14 Bupropion Hcl Sr (12 Hr) 150 Mg Tab PO 150 mg Q12HR ANDRES Administration Clopidogrel Bisulfate 75 mg 09/17/24 09:00 09/17/24 08:14 Clopidogrel Bisulfate 75 Mg Tablet PO 75 mg DAILY COUNTS INCLUDE 234 BEDS AT THE [facility] Administration Dextrose 12.5 gm 09/16/24 19:34 Dextrose 50% 25 Gm/50 Ml Syringe IV PUSH PRN PRN Hypoglycemia Protocol Ergocalciferol 50,000 units 09/22/24 09:00 Ergocalciferol 50,000 Units Capsule PO WEEKLY COUNTS INCLUDE 234 BEDS AT THE [facility] Famotidine 20 mg 09/17/24 09:00 09/17/24 08:14 Famotidine 20 Mg Tablet PO 20 mg Q12HR ANDRES Administration Ferrous Sulfate 325 mg 09/17/24 09:00 09/17/24 08:14 Ferrous Sulfate [address] BY MOUTH 325 mg TID COUNTS INCLUDE 234 BEDS AT [facility] Administration Folic Acid 1 mg 09/17/24 09:00 09/17/24 08:16 Folic Acid 1 Mg Tablet PO 1 mg DAILY ANDRES Administration Gabapentin 1,200 mg 09/17/24 21:00 Gabapentin 400 Mg Capsule PO HS COUNTS INCLUDE 234 BEDS AT [facility] Gabapentin 900 mg 09/17/24 09:00 09/17/24 08:24 Gabapentin 300 Mg Capsule PO 900 mg 0900,1200 ANDRES Administration Glucagon 1 mg 09/16/24 19:34 Glucagon For Inj 1 Mg Vial IM PRN PRN Hypoglycemia Protocol Glucose 15 gm 09/16/24 19:34 Glucose Oral Gel 15 Gm Of Glucse In 37.5 Gm Tube PO PRN PRN Hypoglycemia Protocol Lactated Ringer's 1,000 mls @ 100 mls/hr 09/16/24 19:25 09/17/24 08:15 Lr - Lactated Ringers Iv IV CONT 100 mls/hr .Q10H ANRDES Administration Dextrose 1,000 mls @ 100 mls/hr 09/16/24 19:34 Dextrose 5% 1,000 Ml IVPB PRN PRN Hypoglycemia Protocol Insulin Aspart 3 - 6 units 09/17/24 08:00 09/17/24 08:15 Insulin Aspart (*Bkc) 100 Units/Ml SUB-Q Not Given TIDWM COUNTS INCLUDE 234 BEDS AT THE [facility] Protocol Insulin Glargine 40 units 09/17/24 18:00 Insulin Glargine (*Bkc) 100 Units/Ml SUB-Q QPM COUNTS INCLUDE 234 BEDS AT THE [facility] Lactic Acid 1 applic 09/17/24 09:00 09/17/24 08:17 Lactic Acid 12% Lotion 225 Btl TOPICAL 1 applic BID ANDRES Administration Levetiracetam 250 mg 09/17/24 09:00 09/17/24 08:13 Levetiracetam 250 Mg Tablet PO 250 mg TID ANDRES Administration Lisinopril 20 mg 09/17/24 09:00 09/17/24 08:14 Lisinopril 20 Mg Tablet PO 20 mg DAILY ANDRES Administration Lorazepam 1 mg 09/16/24 21:23 Lorazepam Inj (*Crx) 2 Mg/Ml Vial IV PUSH ONCE PRN Agitation Meloxicam 7.5 mg 09/17/24 09:00 09/17/24 08:14 Meloxicam 7.5 Mg Tablet PO 7.5 mg DAILY ANDRES Administration Metoprolol Succinate 25 mg 09/17/24 09:00 09/17/24 08:15 Metoprolol Succinate Ext Rel 25 Mg Tabcr PO 25 mg DAILY ANDRES Administration Miscellaneous Information 0 each 09/16/24 00:01 Ammonium Lactate Add Site Of Application XX 10/16/24 00:00 CLARIFY COUNTS INCLUDE 234 BEDS AT THE [facility] Miscellaneous Information 0 each 09/16/24 00:01 Nateglinide Nonform Can Pt Bring From Home? XX 10/16/24 00:00 CLARIFY COUNTS INCLUDE 234 BEDS AT THE [facility] Miscellaneous Information 0 each 09/16/24 00:01 Fenofibrate 150mg Nonform Can Pt Bring From [place] XX 10/16/24 00:00 CLARIFY COUNTS INCLUDE 234 BEDS AT THE [facility] Non-Formulary Medication 150 mg 09/17/24 09:00 Fenofibrate PO 10/17/24 08:59 DAILY ANDRES Non-Formulary Medication 120 mg 09/17/24 09:00 Nateglinide PO 10/17/24 08:59 TID ANDRES Ondansetron HCl 4 mg 09/16/24 17:41 Ondansetron Inj 4 Mg/2 Ml Vial IV PUSH Q4H PRN Nausea Oxybutynin Chloride 15 mg 09/17/24 09:00 09/17/24 08:14 Oxybutynin Chloride Xl 5 Mg Tab.Er.24 PO 15 mg DAILY ANDRES Administration Pantoprazole Sodium 40 mg 09/17/24 09:00 09/17/24 08:15 Pantoprazole 40 Mg Tablet PO 40 mg QAM ANDRES Administration Tamsulosin HCl 0.4 mg 09/17/24 21:00 Tamsulosin Hcl 0.4 Mg Capsule PO HS ANDRES Topiramate 100 mg 09/17/24 09:00 09/17/24 08:16 Topiramate 100 Mg Tablet PO 100 mg Q12HR ANDRES Administration Radiology Results: ITS Impressions Chest X-Ray 09/16/24 15:18 Impression: 1: No acute cardiopulmonary disease. Head CT 09/16/24 15:21 IMPRESSION: 1. No acute intracranial process. 2. 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 3. Left otomastoiditis effusion. Abdomen/Pelvis CT 09/16/24 15:23 IMPRESSION: No acute intra-abdominal pathology, as detailed above. Chest CTA 09/16/24 17:05 IMPRESSION: 1. No pulmonary embolism. Assessment limited in the basilar segmental and nondiagnostic in the basilar subsegmental pulmonary arteries due to respiratory motion. 2. Cardiomegaly. 3. Small sliding-type hiatal hernia versus esophagitis with wall thickening at the distal esophagus. Labs Labs: Laboratory Results - last 24 hr 09/16/24 09/16/24 09/16/24 14:54 15:36 15:36 WBC 16.3 H RBC 4.54 L Hgb 16.1 D Hct 45.9 MCV 101.1 H MCH 35.5 H MCHC 35.1 RDW 13.8 Plt Count 344 D MPV 9.6 Immature Gran % (Auto) 0.4 Neut % (Auto) 71.5 Lymph % (Auto) 20.1 [place] % (Auto) 7.5 Eos % (Auto) 0.3 Baso % (Auto) 0.2 Lymph # (Auto) 3.28 H [place] # (Auto) 1.2 H Eos # (Auto) 0.1 Baso # (Auto) 0.0 Abs Immat Gran (auto) 0.07 H Absolute Neuts (auto) 11.7 H Absolute Nucleated RBC 0.000 Nucleated RBC % 0.0 PT 14.2 INR 1.1 APTT 26.8 Sodium 136 L Potassium 4.3 Chloride 98 Carbon Dioxide 18 L Anion Gap 20 H BUN 21 H Creatinine 1.80 H 1.45 H Estim Creat Clear Calc Not Reportable Not Reportable Estimated GFR 38 L 49 L Glucose 192 H POC Capillary Glucose Hemoglobin A1c Lactic Acid 2.8 H Calcium 11.6 H Phosphorus Magnesium 1.6 Total Bilirubin 0.9 AST 32 ALT 32 Alkaline Phosphatase 142 H Ammonia Total Creatine Kinase Cancelled 535 H Troponin I Cancelled Total Protein Albumin Lipase TSH TSH (Reflex) Urine Color Urine Appearance Urine pH Ur Specific [place] Urine Protein Urine Glucose (UA) Urine Ketones Ur Blood (Man) Urine Nitrate Urine Bilirubin Urine Urobilinogen Leukocyte Esterase Rfl Urine RBC Urine WBC Ur Squamous Epith Cells Urine Bacteria Urine Casts Hyaline Casts Urine Opiates Screen Urine Methadone Screen Ur Barbiturates Screen Ur Phencyclidine Scrn Ur Amphetamine Screen U Benzodiazepines Scrn Urine Cocaine Screen U Cannabinoids Screen Ethyl Alcohol Influenza A (RT-PCR) Influenza B (RT-PCR) RSV (RT-PCR) SARS-CoV-2 RNA (RT-PCR) 09/16/24 09/16/24 09/16/24 15:36 15:44 16:21 WBC RBC Hgb Hct MCV MCH MCHC RDW Plt Count MPV Immature Gran % (Auto) Neut % (Auto) Lymph % (Auto) [place] % (Auto) Eos % (Auto) Baso % (Auto) Lymph # (Auto) [place] # (Auto) Eos # (Auto) Baso # (Auto) Abs Immat Gran (auto) Absolute Neuts (auto) Absolute Nucleated RBC Nucleated RBC % PT INR APTT Sodium Potassium Chloride Carbon Dioxide Anion Gap BUN Creatinine Estim Creat Clear Calc Estimated GFR Glucose POC Capillary Glucose Hemoglobin A1c Lactic Acid Calcium Phosphorus Magnesium Total Bilirubin AST ALT Alkaline Phosphatase Ammonia < 9 L Total Creatine Kinase Troponin I 0.045 H* Total Protein 8.0 Albumin 4.7 Lipase 76 TSH Cancelled TSH (Reflex) 1.840 Urine Color Yellow Urine Appearance Clear Urine pH 5.5 Ur Specific [place] > 1.045 H Urine Protein 4+ H Urine Glucose (UA) 3+ H Urine Ketones 2+ H Ur Blood (Man) 2+ H Urine Nitrate Negative Urine Bilirubin Negative Urine Urobilinogen 0.2 Leukocyte Esterase Rfl Negative Urine RBC 3-5 H Urine WBC 0-5 Ur Squamous Epith Cells None seen Urine Bacteria None seen Urine Casts 11-20 Hyaline Casts Present Urine Opiates Screen Negative Urine Methadone Screen Negative Ur Barbiturates Screen Negative Ur Phencyclidine Scrn Negative Ur Amphetamine Screen Positive A U Benzodiazepines Scrn Negative Urine Cocaine Screen Negative U Cannabinoids Screen Positive A Ethyl Alcohol < 10 Influenza A (RT-PCR) Negative Influenza B (RT-PCR) Negative RSV (RT-PCR) Negative SARS-CoV-2 RNA (RT-PCR) Negative 09/16/24 09/16/24 09/16/24 18:48 20:21 21:50 WBC RBC Hgb Hct MCV MCH MCHC RDW Plt Count MPV Immature Gran % (Auto) Neut % (Auto) Lymph % (Auto) [place] % (Auto) Eos % (Auto) Baso % (Auto) Lymph # (Auto) [place] # (Auto) Eos # (Auto) Baso # (Auto) Abs Immat Gran (auto) Absolute Neuts (auto) Absolute Nucleated RBC Nucleated RBC % PT INR APTT Sodium Potassium Chloride Carbon Dioxide Anion Gap BUN Creatinine Estim Creat Clear Calc Estimated GFR Glucose POC Capillary Glucose 132 H Hemoglobin A1c Lactic Acid 1.4 Calcium Phosphorus Magnesium Total Bilirubin AST ALT Alkaline Phosphatase Ammonia Total Creatine Kinase Troponin I 0.054 H* 0.060 H* Total Protein Albumin Lipase TSH TSH (Reflex) Urine Color Urine Appearance Urine pH Ur Specific [place] Urine Protein Urine Glucose (UA) Urine Ketones Ur Blood (Man) Urine Nitrate Urine Bilirubin Urine Urobilinogen Leukocyte Esterase Rfl Urine RBC Urine WBC Ur Squamous Epith Cells Urine Bacteria Urine Casts Hyaline Casts Urine Opiates Screen Urine Methadone Screen Ur Barbiturates Screen Ur Phencyclidine Scrn Ur Amphetamine Screen U Benzodiazepines Scrn Urine Cocaine Screen U Cannabinoids Screen Ethyl Alcohol Influenza A (RT-PCR) Influenza B (RT-PCR) RSV (RT-PCR) SARS-CoV-2 RNA (RT-PCR) 09/17/24 09/17/24 05:06 07:31 WBC 14.6 H RBC 4.09 L Hgb 14.3 Hct 42.3 MCV 103.4 H MCH 35.0 H MCHC 33.8 RDW 14.0 Plt Count 281 MPV 9.7 Immature Gran % (Auto) 0.5 Neut % (Auto) 61.9 Lymph % (Auto) 26.5 [place] % (Auto) 9.6 H Eos % (Auto) 1.2 Baso % (Auto) 0.3 Lymph # (Auto) 3.88 H [place] # (Auto) 1.4 H Eos # (Auto) 0.2 Baso # (Auto) 0.1 Abs Immat Gran (auto) 0.07 H Absolute Neuts (auto) 9.0 H Absolute Nucleated RBC 0.000 Nucleated RBC % 0.0 PT INR APTT Sodium 139 Potassium 4.1 Chloride 103 Carbon Dioxide 28 Anion Gap 8 BUN 17 Creatinine 1.36 H Estim Creat Clear Calc 55 Estimated GFR 53 L Glucose 128 H POC Capillary Glucose 138 H Hemoglobin A1c 7.6 H Lactic Acid Calcium 10.4 H Phosphorus 2.1 L Magnesium 1.6 Total Bilirubin 0.6 AST 30 ALT 26 Alkaline Phosphatase 107 Ammonia Total Creatine Kinase 397 H Troponin I Total Protein 7.0 Albumin 3.9 Lipase TSH TSH (Reflex) Urine Color Urine Appearance Urine pH Ur Specific [place] Urine Protein Urine Glucose (UA) Urine Ketones Ur Blood (Man) Urine Nitrate Urine Bilirubin Urine Urobilinogen Leukocyte Esterase Rfl Urine RBC Urine WBC Ur Squamous Epith Cells Urine Bacteria Urine Casts Hyaline Casts Urine Opiates Screen Urine Methadone Screen Ur Barbiturates Screen Ur Phencyclidine Scrn Ur Amphetamine Screen U Benzodiazepines Scrn Urine Cocaine Screen U Cannabinoids Screen Ethyl Alcohol Influenza A (RT-PCR) Influenza B (RT-PCR) RSV (RT-PCR) SARS-CoV-2 RNA (RT-PCR) Quality VTE Prophylaxis VTE prophylaxis: mechanical ordered Hospitalist MIPS Advance Care Plan I have confirmed that the patient's Advanced Care Plan is present, code status is documented, or surrogate decision maker is listed in patient medical record.: Yes Medication Reconciliation I have utilized all available resources to obtain, update and review the patients current medications (includes all prescriptions, OTC, herbals, cannabis, and nutritional supplements).: Yes
--- NOTE | 2024-09-17 10:46 | P.CONCA_ITS ---
Assessment and Plan Assessment and plan (1) Elevated troponin: Code(s): R79.89 - Other specified abnormal findings of blood chemistry Status: Acute Plan This is a 64-year-old man admitted to the hospital for unclear reasons he apparently had some mental status alterations all the can not tell me at this point is that he felt terrible. For some reason his troponin levels were sampled they are just barely out of normal range, flat and not suggestive of or indicative of an acute myocardial injury. He does have a wide QRS abnormality EKG with right bundle branch block morphology as well as a leftward axis. He also has a chronically implanted pacemaker which is inhibited because his rhythm is not bradycardic. We have no information about his previous cardiac history and he is an extremely poor historian regarding any of this. At this point his troponin levels can be dismissed as an insignificant finding. There is no evidence of an acute coronary problem and I do not believe initiating an ischemia workup here is necessary. He was encouraged to follow-up with his established production director, who ever that is regarding the function of his chronically implanted pacemaker. We have had nothing to do with that and I have no way of knowing what type of device this is but that seems to be irrelevant regarding the question at hand. Basilio Cisse MD [facility] History of Present Illness History of Present Illness Consult date/time: 09/17/24 10:46 Reason For Visit: Agitation, elevated trop, altered mental status Narrative: This is a 64-year-old man I am seeing at the request of the hospitalist because of electrocardiographic abnormalities and troponin levels that have been found to be out of normal range. The patient is unknown to me prior to this but consultation and he is a very poor historian regarding his medical history. He says that he came to the hospital yesterday evening because he was feeling terrible. He can not tell me anything more specific than that. In the emergency room he was evaluated and found to have a significantly abnormal ECG showing sinus tachycardia with a wide QRS a right bundle 0 8 and a leftward axis morphology to his QRS complex. Presumably this lead to troponin levels being sampled which were just barely out of normal range and flat without her rising and falling pattern. The patient says that he is feeling somewhat better this morning although his history is very difficult to put together since he can not really tell me anything more than feeling terrible as to why he came to the hospital last evening. Part of his evaluation showed his drug screen to be positive for marijuana and amphetamine. According to the records this has been found on previous admissions here as well. The patient does have a cardiac history in that he has a pacemaker implanted. He states that a production director by the name of Ann implanted this pacemaker elsewhere. He seems to remember this was a physician in the [employer]. I do not have any records about any of that. He says that it has been implanted a long time ago and he does not recall any other cardiac problems. He specifically says that he is not known to have coronary artery disease or previous myocardial infarction he is not reporting orthopnea PND edema or shortness of breath. 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 January 2019: Left parietooccipital CVA presenting with confusion and aphasia. 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 Obstructive sleep apnea Refuses CPAP. Chronic kidney disease, stage 3 Baseline creatinine is around 1.4. Vitamin D deficiency Coronary artery disease Patient reports history of 2 MIs; no history of cardiac catheterization. 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 Surgical History Surgical History (Updated 09/16/24 @ 19:18 by Elizabeth Elkins APRN) History of back surgery History of permanent cardiac pacemaker placement Due to sick sinus rhythm. History of transurethral resection of prostate History of hernia surgery Family History Family History Mother Cerebrovascular accident Acute myocardial infarction Hypertension Father Diabetes mellitus Cerebrovascular accident Hypertension Social History Social History (Updated 02/23/23 @ 13:24 by Ros Cordova PA-C) Social History: Surrogate decision maker: Darling Rivers (sister). Code status: Full code. Smoking packs per day: 1 Smoking cigarettes per day: 20.0 Years smoked: 45 Smoking pack-years: 45.00 Smoking status: Current every day smoker Tobacco type: cigarettes Alcohol intake: current Drinks per week: 1 Substance use: never Substance use type: marijuana and methamphetamine Other substance usage details: daily Last use: 02/22/2023 Do You Feel Safe in your Home?: Yes Lack of Transportation: No Lack of Food: Never True Current Housing: I Have Housing Concerned About Future Housing: No Difficulty Paying Gas/Electric Bills: No Difficulty Paying for Meds: No Currently Unemployed: No Education: High School Diploma/GED Difficulty w/ Childcare or Family Care: No Living arrangements: alone Additional living arrangements comments: The patient lives in his own apartment in [place]. Occupation/Education: unemployed Additional occupation/education comments: On disability. Spiritual care concerns: No Meds Home Medications and Allergies Home Medications ?Medication ?Instructions ?Recorded ?Confirmed ?Type amitriptyline 100 mg tablet 100 mg PO HS 03/12/20 09/16/24 History atorvastatin 80 mg tablet 80 mg PO HS 03/12/20 09/16/24 History clopidogrel 75 mg tablet 75 mg PO DAILY 03/12/20 09/16/24 History ergocalciferol (vitamin D2) 1,250 1,250 mcg PO WEEKLY 03/12/20 09/16/24 History mcg (50,000 unit) capsule folic acid 1 mg tablet 1 mg PO DAILY 03/12/20 09/16/24 History levetiracetam 250 mg tablet 250 mg PO TID 03/12/20 09/16/24 History lisinopril 20 mg tablet 20 mg PO DAILY 03/12/20 09/16/24 History metoprolol succinate 50 mg 25 mg PO DAILY 03/12/20 09/16/24 History tablet,extended release 24 hr aspirin 81 mg chewable tablet 81 mg PO DAILY 05/28/20 09/16/24 History gabapentin 300 mg capsule 300 mg PO TID #0 caps 05/30/20 09/16/24 Rx blood-glucose meter,continuous 02/23/23 09/16/24 History (Dexcom G7 Stratigraphy Teacher) blood-glucose sensor (Dexcom G7 02/23/23 09/16/24 History Sensor device) empagliflozin 10 mg tablet 10 mg PO DAILY 02/23/23 09/16/24 History (Jardiance) evolocumab 140 mg/mL subcutaneous 140 mg subcut [id number] 02/23/23 09/16/24 History syringe (Repatha Syringe) famotidine 20 mg tablet 20 mg PO BID 02/23/23 09/16/24 History hydrocodone 10 mg-acetaminophen 1 tablet PO Q8H pain 02/23/23 09/16/24 History 325 mg tablet insulin glargine 100 unit/mL 45 unit subcut HS 02/23/23 09/16/24 History subcutaneous solution (Lantus U-100 Insulin) oxybutynin chloride 15 mg 15 mg PO DAILY 02/23/23 09/16/24 History tablet,extended release 24 hr tamsulosin 0.4 mg capsule 0.4 mg PO HS 02/23/23 09/16/24 History albuterol sulfate 90 mcg/actuation 2 puff inhalation Q4H PRN 09/16/24 09/16/24 History aerosol inhaler shortness of breath or wheezing ammonium lactate 12 % lotion 1 applic topical BID 09/16/24 09/16/24 History bupropion HCl (smoking deter) 150 150 mg PO .q12hr 09/16/24 09/16/24 History mg tablet,12 hr sustained-release(smoking deterrent) fenofibrate 150 mg capsule 150 mg PO DAILY 09/16/24 09/16/24 History ferrous sulfate 325 mg (65 mg 325 mg PO TID 09/16/24 09/16/24 History iron) tablet (Feosol) gabapentin 600 mg tablet 600 mg PO TID 09/16/24 09/16/24 History insulin glargine 100 unit/mL (3 40 unit subcut QPM 09/16/24 09/16/24 History mL) subcutaneous pen (Lantus Solostar U-100 Insulin) meloxicam 7.5 mg tablet 7.5 mg PO DAILY 09/16/24 09/16/24 History nateglinide 120 mg tablet 120 mg PO TID 09/16/24 09/16/24 History pantoprazole 40 mg tablet,delayed 40 mg PO QAM 09/16/24 09/16/24 History release topiramate 100 mg tablet (Topamax) 100 mg PO BID 09/16/24 09/16/24 History Allergies Allergy/AdvReac Type Severity Reaction Status Date / Time Penicillins Allergy Unknown Other Verified 09/16/24 15:50 Vital Signs Vital Signs - 24 hr 09/16/24 12:08 09/16/24 15:40 09/16/24 15:44 Temperature 36.4 C 36.6 C Pulse Rate 80 98 96 Respiratory Rate 16 14 17 Blood Pressure 150/71 H 164/96 H Pulse Oximetry 100 100 100 Oxygen Delivery 09/16/24 15:46 09/16/24 16:02 09/16/24 16:19 Temperature Pulse Rate 95 88 108 H Respiratory Rate 15 10 L 24 H Blood Pressure 182/90 H 200/98 H 174/93 H Pulse Oximetry 100 100 100 Oxygen Delivery 09/16/24 16:56 09/16/24 17:00 09/16/24 17:15 Temperature Pulse Rate 105 H 104 H 108 H Respiratory Rate 15 16 21 H Blood Pressure Pulse Oximetry 78 L 100 Oxygen Delivery 09/16/24 17:30 09/16/24 17:45 09/16/24 18:00 Temperature Pulse Rate 108 H 118 H 122 H Respiratory Rate 18 23 H 23 H Blood Pressure Pulse Oximetry Oxygen Delivery 09/16/24 18:15 09/16/24 18:43 09/16/24 18:47 Temperature Pulse Rate 110 H 107 H 108 H Respiratory Rate 18 19 19 Blood Pressure Pulse Oximetry 100 Oxygen Delivery 09/16/24 20:00 09/16/24 20:00 09/16/24 20:06 Temperature 37.3 C Pulse Rate 101 H 101 H 100 Respiratory Rate 22 H 22 H Blood Pressure 194/90 H Pulse Oximetry 99 99 Oxygen Delivery Room Air 09/16/24 22:00 09/16/24 23:47 09/17/24 00:00 Temperature 37.3 C Pulse Rate 92 100 105 H Respiratory Rate 22 H 22 H Blood Pressure 159/91 H Pulse Oximetry 96 96 Oxygen Delivery Room Air 09/17/24 00:00 09/17/24 02:00 09/17/24 03:38 Temperature 36.7 C Pulse Rate 105 H 98 100 Respiratory Rate 22 H Blood Pressure 121/73 Pulse Oximetry 98 Oxygen Delivery 09/17/24 03:43 09/17/24 03:43 09/17/24 05:46 Temperature Pulse Rate 94 94 92 Respiratory Rate 22 H Blood Pressure Pulse Oximetry 98 Oxygen Delivery Room Air 09/17/24 08:00 09/17/24 08:00 09/17/24 08:15 Temperature Pulse Rate 99 76 Respiratory Rate Blood Pressure Pulse Oximetry Oxygen Delivery Room Air 09/17/24 08:21 Temperature 37.0 C Pulse Rate 96 Respiratory Rate 14 Blood Pressure 158/81 H Pulse Oximetry 100 Oxygen Delivery Exam 2 Const: General: comfortable Other: Well-developed well-nourished white male overweight supine in bed currently no specific complaints HENMT: Mouth: Yes moist mucous membranes Eyes: Sclera: sclerae normal Neck: Neck: supple and no JVD Resp: Effort & Inspection: normal respiratory effort Auscultation: clear to auscultation bilaterally Cardio: Rate: regular rate Rhythm: regular rhythm Other: PMI difficult to palpate no discernible murmur or gallop GI: GI Palp: Yes Soft to palpation Auscultation: normal bowel sounds Skin: General skin exam: normal color Neuro: Other: Alert and oriented x3 Extrem: Other: No discernible edema adequate distal perfusion Results Labs and Meds 09/17/24 05:06 09/17/24 05:06 Lab results: Cardiac Enzymes 09/16/24 09/16/24 09/16/24 Range/Units 15:36 15:36 18:48 AST 32 (17-59) U/L Troponin I Cancelled 0.045 H* 0.054 H* 09/16/24 09/17/24 Range/Units 21:50 05:06 AST 30 (17-59) U/L Troponin I 0.060 H* Coagulation 09/16/24 Range/Units 15:36 PT 14.2 (11.1-14.7) Seconds APTT 26.8 (22.3-36.8) Seconds CBC 09/16/24 09/17/24 Range/Units 15:36 05:06 WBC 16.3 H 14.6 H (4.5-10.0) K/mm3 RBC 4.54 L 4.09 L (4.6-6.20) M/mm3 Hgb 16.1 D 14.3 (14.0-18.0) g/dL Hct 45.9 42.3 (42.0-52.0) % Plt Count 344 D 281 (150-375) k/mm3 Lymph # (Auto) 3.28 H 3.88 H (0.9-3.2) K/mm3 [place] # (Auto) 1.2 H 1.4 H (0.1-0.6) K/mm3 Eos # (Auto) 0.1 0.2 (0-0.3) K/mm3 Baso # (Auto) 0.0 0.1 (0.0-0.1) K/mm3 Comprehensive Metabolic Panel 09/16/24 09/16/24 09/17/24 Range/Units 14:54 15:36 05:06 Sodium 136 L 139 (137-145) mmol/L Potassium 4.3 4.1 (3.4-5.0) mmol/L Chloride 98 103 (98-107) mmol/L Carbon Dioxide 18 L 28 (22-30) mmol/L BUN 21 H 17 (9-20) mg/dL Creatinine 1.80 H 1.45 H 1.36 H (0.8-1.5) mg/dL Glucose 192 H 128 H (65-110) mg/dL Calcium 11.6 H 10.4 H (8.4-10.2) mg/dL AST 32 30 (17-59) U/L ALT 32 26 (6-50) U/L Alkaline Phosphatase 142 H 107 (38-126) U/L Total Protein 8.0 7.0 (6.3-8.2) g/dL Albumin 4.7 3.9 (3.5-5.1) g/dL Intake and Output 09/16/24 09/17/24 09/17/24 23:59 07:59 15:59 Intake Total 1000 835 Output Total 400 400 300 Balance 600 -400 535 Intake: IV 1000 835 Lactated Ringers 1,000 ml @ 100 835 mls/hr IV CONT .Q10H ANDRES Rx#: [id number] Sodium Chloride 0.9% IV 1,000 1000 ml @ 999 mls/hr IV CONT .Q1H1M STA Rx#:[id number] Output: Urine 400 400 300 Other: # Incontinent Voids 1 Patient Weight 09/17/24 23:59 Weight 96.5 kg
[2024-09-17 11:11] LABS: Glucose Point of Care 135 mg/dl (65-105)
[2024-09-17 16:40] LABS: Glucose Point of Care 176 mg/dl (65-105)
[2024-09-17] MEDS: FENOFIBRATE NANOCRYSTALLIZED 145 MG TABLET PO (17:44)
[2024-09-17] MEDS: TAMSULOSIN HCL 0.4 MG CAPSULE PO ×2 (17:44→20:44)
[2024-09-17] MEDS: INSULIN GLARGINE (*BKC) 100 UNITS/ML 40 UNITS SUB-Q (17:48)
[2024-09-17] MEDS: GABAPENTIN 400 MG CAPSULE 1200 MG PO (20:44)
[2024-09-17] MEDS: ATORVASTATIN 40 MG TABLET 80 MG PO (20:45)
[2024-09-17] MEDS: AMITRIPTYLINE HCL 25 MG TABLET 100 MG PO (20:45)
[2024-09-17 21:22] LABS: Glucose Point of Care 179 mg/dl (65-105)
[2024-09-18] VITALS (10 sets, daily range): BP systolic 123–149; BP diastolic 61–77; PULSE 70–85; RESP 18–20; TEMP 36.3–36.9; O2SAT 96–97
[2024-09-18] MEDS: LACTATED RINGERS 1,000 ML 100 ML IV CONT ×2 (05:36→19:57)
[2024-09-18 06:04] LABS: Hematocrit 35.7 % (42.0-52.0); Mean Corpuscular HGB Conc 33.6 g/dl (32-36); Mean Corpuscular Hemoglobin 35.7 pg (26-34); Mean Corpuscular Volume 106.3 fl (80-100); Mean Platelet Volume 10.2 fl (7.4-10.4); Platelet Count Result 226 k/mm3 (150-375); Red Blood Count 3.36 M/mm3 (4.6-6.20); Red Cell Distribution Width 14.1 % (11.5-14.5); White Blood Count 11.4 K/mm3 (4.5-10.0)
[2024-09-18 06:23] LABS: Alanine Aminotransferase 22 U/L (6-50); Alkaline Phosphatase 62 U/L (38-126); Anion Gap 5 mmol/L (4-12); Aspartate Amino Transferase 26 U/L (17-59); Bilirubin,Total 0.6 mg/dL (0.2-1.3); Blood Urea Nitrogen 22 mg/dL (9-20); Calcium 9.8 mg/dL (8.4-10.2); Carbon Dioxide 25 mmol/L (22-30); Chloride 107 mmol/L (98-107); Estimated CRCL calculation 53 ml/min; Estimated Glomerular Filt Rate 50; Glucose 123 mg/dL (65-110); Potassium 3.8 mmol/L (3.4-5.0); Sodium 137 mmol/L (137-145)
--- NOTE | 2024-09-18 07:43 | PM.IMPN ---
Progress Note: A&P Assessment and Plan (1) Nausea & vomiting: Qualifiers: Vomiting type: unspecified Qualified Code(s): R11.2 - Nausea with vomiting, unspecified Code(s): R11.2 - Nausea with vomiting, unspecified Status: Acute Assessment and Plan: - CT abd/pelvis: No acute intra-abdominal pathology, as detailed above. - suspect viral etiology - viral PCR negative for COVID/flu/rsv - antiemetics prn - hgb elevated compared to baseline and CONNIE raise concerns for dehydration, will treat with IV fluids (2) CONNIE (acute kidney injury): Code(s): N17.9 - Acute kidney failure, unspecified Status: Acute Assessment and Plan: - creatinine 1.8 and GFR 38, previously 1.1 and GFR >60 in 01/2023 - IV fluids: 2L bolus -> 100 mL/hr and monitor I&Os - trend renal function - trend electrolytes, correct as needed (3) Elevated troponin: Code(s): R79.89 - Other specified abnormal findings of blood chemistry Status: Acute Assessment and Plan: -no further workup resolved - chest CTA: 1. No pulmonary embolism. Assessment limited in the basilar segmental and nondiagnostic in the basilar subsegmental pulmonary arteries due to respiratory motion. 2. Cardiomegaly. 3. Small sliding-type hiatal hernia versus esophagitis with wall thickening at the distal esophagus. - EKG, initial: Ectopic atrial tachycardia, right axis deviation, right bundle branch block, left ventricular hypertrophy and ST-T change anterolateral infarct age indeterminate, inferior infarct age indeterminate ST elevation in anterolateral leads suggestive of myocardial aneurysm. - repeat EKG - Troponin: 0.045 -> 0.054 -> 0.060 - ASA 324 given - cardiology consulted signed - telemetry monitoring (4) Elevated CK: Code(s): R74.8 - Abnormal levels of other serum enzymes Status: Acute Assessment and Plan: - CK 535, trend - psychomotor agitation noted in ED and tox screen +for marijuana and amphetamines. prescription monitoring program reviewed, no stimulants prescribed - IV fluids (5) Type 2 diabetes mellitus: Qualifiers: Diabetes mellitus complication status: without complication Diabetes mellitus medical terminologist insulin use: with [place] [facility] use Qualified Code(s): E11.9 - Type 2 diabetes mellitus without complications; Z79.4 - nursing home (current) use of insulin Code(s): E11.9 - Type 2 diabetes mellitus without complications Status: Acute Assessment and Plan: - hypoglycemia protocol - POC blood glucose ACHS - home medication: Hold Jardiance. Continue Lantus 40 units HS - correct regimen ordered - moderate dose TIDWM - A1C 7.4% in 2022, update (6) Essential hypertension: Code(s): I10 - Essential (primary) hypertension Status: Chronic Assessment and Plan: - chronic, currently 174/93 - continue home medications: Lisinopril 20 mg daily, Metoprolol 25 mg PO daily - monitor (7) Cannabinoid hyperemesis syndrome: Code(s): R11.2 - Nausea with vomiting, unspecified; F12.90 - Cannabis use, unspecified, uncomplicated Status: Acute Assessment and Plan: Advised on smoking cessation Zofran p.r.n. Monitor electrolytes Plan Suspect alteration secondary to amphetamine, psychomotor agitation on exam consistent with stimulant abuse. Will monitor. Hold home [place] until confusion resolves. Diet: Heart healthy GI Prophylaxis: Not currently indicated DVT Prophylaxis: SCDs Lines: Peripheral Code Status: Full code Subjective Date/time seen: 09/18/24 07:43 Interval history: Patient creatinine has been increased possibly due to cyclic vomiting from marijuana. Currently receiving LR at 100 mL/hr. Review of Systems Review of Systems: All systems reviewed & are unremarkable except as noted in HPI and below (Limited/unreliable) Exam Narrative: restless, disoriented. heart lung fine. Const: General: comfortable and no acute distress Other: , male, restless, nontoxic appearance HENMT: Face/Nose/Sinus: Normal nares present Mouth: Yes moist mucous membranes Eyes: General: appearance normal, both eyes and all related structures Sclera: sclerae normal Pupils: Equal, round and reactive pupils present EOM: EOMs intact bilaterally Resp: Effort & Inspection: normal respiratory effort Auscultation: clear to auscultation bilaterally Cardio: Rate: regular rate Rhythm: regular rhythm Other: S1-S2 present without murmur, rub, ectopy GI: Other: Abdomen rounded, soft, nontender. Normoactive bowel sounds in all quadrants. Skin: General skin exam: normal color and no rashes or lesions noted Wounds: no wounds Neuro: Cranial nerves: Yes Equal, round and reactive pupils present Speech: normal speech Sensory Exam: normal sensation Other: Moving all extremities. Disoriented. Follows commands. Extrem: General: normal to inspection Psych: Mental Status: mental status grossly normal Affect: Anxious affect present Other: +restless. Following commands. Poor insight and judgment at present. Objective Data Vital Signs Vital Signs: Vital Signs - 24 hr 09/17/24 08:00 09/17/24 08:00 09/17/24 08:15 Temperature Pulse Rate 99 76 Respiratory Rate Blood Pressure Pulse Oximetry Oxygen Delivery Room Air 09/17/24 08:21 09/17/24 10:00 09/17/24 12:00 Temperature 98.6 F Pulse Rate 96 81 Respiratory Rate 14 Blood Pressure 158/81 H Pulse Oximetry 100 Oxygen Delivery Room Air 09/17/24 12:00 09/17/24 12:57 09/17/24 14:00 Temperature 97.5 F L Pulse Rate 70 88 88 Respiratory Rate 20 Blood Pressure 118/50 L Pulse Oximetry 98 Oxygen Delivery 09/17/24 16:00 09/17/24 16:35 09/17/24 20:00 Temperature 97.1 F L Pulse Rate 76 81 88 Respiratory Rate 14 20 Blood Pressure 132/54 L Pulse Oximetry 100 97 Oxygen Delivery Room Air 09/17/24 20:00 09/17/24 21:50 09/18/24 00:00 Temperature 98.4 F Pulse Rate 81 88 85 Respiratory Rate 20 Blood Pressure 140/70 Pulse Oximetry 97 Oxygen Delivery 09/18/24 04:00 09/18/24 05:59 Temperature 97.3 F L Pulse Rate 75 79 Respiratory Rate 18 Blood Pressure 123/61 Pulse Oximetry 97 Oxygen Delivery Intake/Output Intake/Output: Intake & Output 09/15/24 09/16/24 09/17/24 09/18/24 23:59 23:59 23:59 23:59 Intake Total 1000 2603.7 1350 Output Total 400 900 500 Balance 600 1703.7 850 Meds/Results Medications: Active Medications Generic Name Dose Route Start Last Admin Trade Name Freq PRN Reason Stop Dose Admin Albuterol 2 puff 09/16/24 22:15 Albuterol Sulfate (*Sp) Aerosol 1 Puff INHALATION Q4HRT PRN shortness of breath or wheezing Amitriptyline HCl 100 mg 09/17/24 21:00 09/17/24 20:45 Amitriptyline Hcl 25 Mg Tablet PO 100 mg HS ANDRES Administration Aspirin 81 mg 09/17/24 09:00 09/17/24 08:14 Aspirin 81 Mg Chewable Tablet PO 81 mg DAILY ANDRES Administration Atorvastatin Calcium 80 mg 09/17/24 21:00 09/17/24 20:45 Atorvastatin 40 Mg Tablet PO 80 mg HS ANDRES Administration Bupropion HCl 150 mg 09/17/24 09:00 09/17/24 20:44 Bupropion Hcl Sr (12 Hr) 150 Mg Tab PO 150 mg Q12HR ANDRES Administration Clopidogrel Bisulfate 75 mg 09/17/24 09:00 09/17/24 08:14 Clopidogrel Bisulfate 75 Mg Tablet PO 75 mg DAILY ANDRES Administration Dextrose 12.5 gm 09/16/24 19:34 Dextrose 50% 25 Gm/50 Ml Syringe IV PUSH PRN PRN Hypoglycemia Protocol Ergocalciferol 50,000 units 09/22/24 09:00 Ergocalciferol 50,000 Units Capsule PO WEEKLY ANDRES Famotidine 20 mg 09/17/24 09:00 09/17/24 20:45 Famotidine 20 Mg Tablet PO 20 mg Q12HR ANDRES Administration Fenofibrate 145 mg 09/17/24 13:35 09/17/24 17:44 Fenofibrate Nanocrystallized 145 Mg Tablet PO 10/17/24 13:34 145 mg DAILY ANDRES Administration Ferrous Sulfate 325 mg 09/17/24 09:00 09/17/24 17:44 Ferrous Sulfate [address] BY MOUTH 325 mg TID ANDRES Administration Folic Acid 1 mg 09/17/24 09:00 09/17/24 08:16 Folic Acid 1 Mg Tablet PO 1 mg DAILY ANDRES Administration Gabapentin 1,200 mg 09/17/24 21:00 09/17/24 20:44 Gabapentin 400 Mg Capsule PO 1,200 mg HS ANDRES Administration Gabapentin 900 mg 09/17/24 09:00 09/17/24 12:25 Gabapentin 300 Mg Capsule PO 900 mg 0900,1200 ANDRES Administration Glucagon 1 mg 09/16/24 19:34 Glucagon For Inj 1 Mg Vial IM PRN PRN Hypoglycemia Protocol Glucose 15 gm 09/16/24 19:34 Glucose Oral Gel 15 Gm Of Glucse In 37.5 Gm Tube PO PRN PRN Hypoglycemia Protocol Lactated Ringer's 1,000 mls @ 100 mls/hr 09/16/24 19:25 09/18/24 05:36 Lr - Lactated Ringers Iv IV CONT 100 mls/hr .Q10H ANDRES Administration Dextrose 1,000 mls @ 100 mls/hr 09/16/24 19:34 Dextrose 5% 1,000 Ml IVPB PRN PRN Hypoglycemia Protocol Insulin Aspart 3 - 6 units 09/17/24 08:00 09/17/24 17:45 Insulin Aspart (*Bkc) 100 Units/Ml SUB-Q Not Given TIDWM ANDRES Protocol Insulin Glargine 40 units 09/17/24 18:00 09/17/24 17:48 Insulin Glargine (*Bkc) 100 Units/Ml SUB-Q 40 units QPM ANDRES Administration Lactic Acid 1 applic 09/17/24 09:00 09/17/24 17:45 Lactic Acid 12% Lotion 225 Btl TOPICAL 1 applic BID ANDRES Administration Levetiracetam 250 mg 09/17/24 09:00 09/17/24 17:44 Levetiracetam 250 Mg Tablet PO 250 mg TID ANDRES Administration Lisinopril 20 mg 09/17/24 09:00 09/17/24 08:14 Lisinopril 20 Mg Tablet PO 20 mg DAILY ANDRES Administration Lorazepam 1 mg 09/16/24 21:23 Lorazepam Inj (*Crx) 2 Mg/Ml Vial IV PUSH ONCE PRN Agitation Meloxicam 7.5 mg 09/17/24 09:00 09/17/24 08:14 Meloxicam 7.5 Mg Tablet PO 7.5 mg DAILY ANDRES Administration Metoprolol Succinate 25 mg 09/17/24 09:00 09/17/24 08:15 Metoprolol Succinate Ext Rel 25 Mg Tabcr PO 25 mg DAILY ANDRES Administration Miscellaneous Information 0 each 09/16/24 00:01 Ammonium Lactate Add Site Of Application XX 10/16/24 00:00 [facility] Miscellaneous Information 0 each 09/16/24 00:01 Nateglinide Nonform Can Pt Bring From Home? XX 10/16/24 00:00 [facility] Miscellaneous Information 0 each 09/16/24 00:01 Fenofibrate 150mg Nonform Can Pt Bring From [facility] XX 10/16/24 00:00 [facility] Non-Formulary Medication 120 mg 09/17/24 09:00 Nateglinide PO 10/17/24 08:59 TID ANDRES Ondansetron HCl 4 mg 09/16/24 17:41 Ondansetron Inj 4 Mg/2 Ml Vial IV PUSH Q4H PRN Nausea Oxybutynin Chloride 15 mg 09/17/24 09:00 09/17/24 08:14 Oxybutynin Chloride Xl 5 Mg Tab.Er.24 PO 15 mg DAILY ANDRES Administration Pantoprazole Sodium 40 mg 09/17/24 09:00 09/17/24 08:15 Pantoprazole 40 Mg Tablet PO 40 mg QAM ANDRES Administration Tamsulosin HCl 0.4 mg 09/17/24 21:00 09/17/24 20:44 Tamsulosin Hcl 0.4 Mg Capsule PO 0.4 mg HS ANDRES Administration Tamsulosin HCl 0.4 mg 09/18/24 09:00 Tamsulosin Hcl 0.4 Mg Capsule PO QAM ANDRES Topiramate 100 mg 09/17/24 09:00 09/17/24 20:53 Topiramate 100 Mg Tablet PO 100 mg Q12HR ANDRES Administration Radiology Results: ITS Impressions Chest X-Ray 09/16/24 15:18 Impression: 1: No acute cardiopulmonary disease. Head CT 09/16/24 15:21 IMPRESSION: 1. No acute intracranial process. 2. 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 3. Left otomastoiditis effusion. Abdomen/Pelvis CT 09/16/24 15:23 IMPRESSION: No acute intra-abdominal pathology, as detailed above. Chest CTA 09/16/24 17:05 IMPRESSION: 1. No pulmonary embolism. Assessment limited in the basilar segmental and nondiagnostic in the basilar subsegmental pulmonary arteries due to respiratory motion. 2. Cardiomegaly. 3. Small sliding-type hiatal hernia versus esophagitis with wall thickening at the distal esophagus. Labs Labs: Laboratory Results - last 24 hr 09/17/24 09/17/24 09/17/24 07:31 11:08 16:34 WBC RBC Hgb Hct MCV MCH MCHC RDW Plt Count MPV Sodium Potassium Chloride Carbon Dioxide Anion Gap BUN Creatinine Estim Creat Clear Calc Estimated GFR Glucose POC Capillary Glucose 138 H 135 H 176 H Calcium Total Bilirubin AST ALT Alkaline Phosphatase Total Protein Albumin 09/17/24 09/18/24 19:42 05:36 WBC 11.4 H RBC 3.36 L Hgb 12.0 L Hct 35.7 L MCV 106.3 H MCH 35.7 H MCHC 33.6 RDW 14.1 Plt Count 226 MPV 10.2 Sodium 137 Potassium 3.8 Chloride 107 Carbon Dioxide 25 Anion Gap 5 BUN 22 H Creatinine 1.44 H Estim Creat Clear Calc 53 Estimated GFR 50 L Glucose 123 H POC Capillary Glucose 179 H Calcium 9.8 Total Bilirubin 0.6 AST 26 ALT 22 Alkaline Phosphatase 62 Total Protein 6.0 L Albumin 3.0 L Quality VTE Prophylaxis VTE prophylaxis: mechanical ordered Hospitalist [facility] Advance Care Plan I have confirmed that the patient's Advanced Care Plan is present, code status is documented, or surrogate decision maker is listed in patient medical record.: Yes Medication Reconciliation I have utilized all available resources to obtain, update and review the patients current medications (includes all prescriptions, OTC, herbals, cannabis, and nutritional supplements).: Yes
[2024-09-18 08:32] LABS: Creatine Kinase 135 U/L (55-170)
[2024-09-18] MEDS: TAMSULOSIN HCL 0.4 MG CAPSULE PO ×2 (09:03→19:59)
[2024-09-18] MEDS: buPROPion HCL SR (12 HR) 150 MG TAB PO ×2 (09:03→19:59)
[2024-09-18] MEDS: levETIRAcetam 250 MG TABLET PO ×3 (09:03→17:42)
[2024-09-18] MEDS: FOLIC ACID 1 MG TABLET PO (09:03)
[2024-09-18] MEDS: ASPIRIN 81 MG CHEWABLE TABLET PO (09:03)
[2024-09-18] MEDS: METOPROLOL SUCCINATE EXT REL 25 MG TABCR PO (09:04)
[2024-09-18] MEDS: FENOFIBRATE NANOCRYSTALLIZED 145 MG TABLET PO (09:04)
[2024-09-18] MEDS: FERROUS SULFATE 325 MG TABLET DR BY MOUTH ×3 (09:04→17:42)
[2024-09-18] MEDS: oxyBUTYnin CHLORIDE XL 5 MG TAB.ER.24 15 MG PO (09:04)
[2024-09-18] MEDS: CLOPIDOGREL BISULFATE 75 MG TABLET PO (09:04)
[2024-09-18] MEDS: PANTOPRAZOLE 40 MG TABLET PO (09:04)
[2024-09-18] MEDS: MELOXICAM 7.5 MG TABLET PO (09:04)
[2024-09-18] MEDS: LACTIC ACID 12% LOTION 225 BTL 1 APPLIC TOPICAL ×2 (09:05→17:43)
[2024-09-18 09:23] LABS: Glucose Point of Care 136 mg/dl (65-105)
[2024-09-18] MEDS: FAMOTIDINE 20 MG TABLET PO ×2 (09:50→19:59)
[2024-09-18] MEDS: TOPIRAMATE 100 MG TABLET PO ×2 (09:50→19:59)
[2024-09-18] MEDS: GABAPENTIN 300 MG CAPSULE 900 MG PO ×2 (09:56→12:17)
[2024-09-18 13:00] LABS: Glucose Point of Care 157 mg/dl (65-105)
[2024-09-18] MEDS: INSULIN GLARGINE (*BKC) 100 UNITS/ML 40 UNITS SUB-Q (17:45)
[2024-09-18 17:49] LABS: Glucose Point of Care 153 mg/dl (65-105)
[2024-09-18] MEDS: GABAPENTIN 400 MG CAPSULE 1200 MG PO (19:58)
[2024-09-18] MEDS: AMITRIPTYLINE HCL 25 MG TABLET 100 MG PO (19:59)
[2024-09-18] MEDS: ATORVASTATIN 40 MG TABLET 80 MG PO (19:59)
[2024-09-18 21:22] LABS: Glucose Point of Care 194 mg/dl (65-105)
[2024-09-19] VITALS: PULSE 89
[2024-09-19 03:39] VITALS: BP 127/52; PULSE 71; RESP 20; TEMP 36.6; O2SAT 96
[2024-09-19 04:00] VITALS: PULSE 68
[2024-09-19] MEDS: LACTATED RINGERS 1,000 ML 100 ML IV CONT (06:04)
[2024-09-19 06:43] LABS: Hematocrit 34.6 % (42.0-52.0); Hemoglobin 11.6 g/dL (14.0-18.0); Mean Corpuscular HGB Conc 33.5 g/dl (32-36); Mean Corpuscular Hemoglobin 35.7 pg (26-34); Mean Corpuscular Volume 106.5 fl (80-100); Mean Platelet Volume 10.1 fl (7.4-10.4); Platelet Count Result 217 k/mm3 (150-375); Red Blood Count 3.25 M/mm3 (4.6-6.20); White Blood Count 9.9 K/mm3 (4.5-10.0)
[2024-09-19 06:55] LABS: Alanine Aminotransferase 47 U/L (6-50); Albumin Level 3.2 g/dL (3.5-5.1); Alkaline Phosphatase 62 U/L (38-126); Anion Gap 7 mmol/L (4-12); Aspartate Amino Transferase 36 U/L (17-59); Bilirubin,Total 0.5 mg/dL (0.2-1.3); Blood Urea Nitrogen 18 mg/dL (9-20); Calcium 10.3 mg/dL (8.4-10.2); Carbon Dioxide 22 mmol/L (22-30); Chloride 111 mmol/L (98-107); Estimated CRCL calculation 62 ml/min; Estimated Glomerular Filt Rate 60; Glucose 92 mg/dL (65-110); Potassium 3.8 mmol/L (3.4-5.0); Sodium 140 mmol/L (137-145)
[2024-09-19 08:18] LABS: Glucose Point of Care 100 mg/dl (65-105)
[2024-09-19] MEDS: FAMOTIDINE 20 MG TABLET PO (08:34)
[2024-09-19] MEDS: buPROPion HCL SR (12 HR) 150 MG TAB PO (08:34)
[2024-09-19] MEDS: FENOFIBRATE NANOCRYSTALLIZED 145 MG TABLET PO (08:34)
[2024-09-19] MEDS: ASPIRIN 81 MG CHEWABLE TABLET PO (08:34)
[2024-09-19] MEDS: FOLIC ACID 1 MG TABLET PO (08:34)
[2024-09-19] MEDS: FERROUS SULFATE 325 MG TABLET DR BY MOUTH (08:34)
[2024-09-19] MEDS: CLOPIDOGREL BISULFATE 75 MG TABLET PO (08:34)
[2024-09-19] MEDS: oxyBUTYnin CHLORIDE XL 5 MG TAB.ER.24 15 MG PO (08:34)
[2024-09-19 08:35] VITALS: PULSE 76
[2024-09-19] MEDS: GABAPENTIN 300 MG CAPSULE 900 MG PO (08:35)
[2024-09-19] MEDS: TOPIRAMATE 100 MG TABLET PO (08:35)
[2024-09-19] MEDS: METOPROLOL SUCCINATE EXT REL 25 MG TABCR PO (08:35)
[2024-09-19] MEDS: PANTOPRAZOLE 40 MG TABLET PO (08:35)
[2024-09-19] MEDS: MELOXICAM 7.5 MG TABLET PO (08:35)
[2024-09-19] MEDS: TAMSULOSIN HCL 0.4 MG CAPSULE PO (08:35)
[2024-09-19] MEDS: levETIRAcetam 250 MG TABLET PO (08:35)
[2024-09-19 11:51] LABS: Glucose Point of Care 124 mg/dl (65-105)
--- NOTE | 2024-09-19 11:53 | P.DS_ITS ---
DS: Admitting Diagnosis Discharge Date 09/19/2024 Admitting Diagnosis Nausea, vomiting, diarrhea DS: Discharge Diagnosis Discharge Diagnosis (1) Nausea & vomiting: Qualifiers: Vomiting type: unspecified Qualified Code(s): R11.2 - Nausea with vomiting, unspecified Code(s): R11.2 - Nausea with vomiting, unspecified Status: Acute Assessment and Plan: Resolved - CT abd/pelvis: No acute intra-abdominal pathology, as detailed above. - suspect viral etiology - viral PCR negative for COVID/flu/rsv - antiemetics prn - hgb elevated compared to baseline and (2) CONNIE (acute kidney injury): Code(s): N17.9 - Acute kidney failure, unspecified Status: Acute Assessment and Plan: Resolved - creatinine 1.8 and GFR 38, previously 1.1 and GFR >60 in 01/2023 - IV fluids: 2L bolus -> 100 mL/hr and monitor I&Os - trend renal function - trend electrolytes, correct as needed - CONNIE(resolved) raise concerns for dehydration, treated with IV fluids. -Encourage oral intake upon discharge (3) Elevated troponin: Code(s): R79.89 - Other specified abnormal findings of blood chemistry Status: Acute Assessment and Plan: -no further workup resolved - chest CTA: 1. No pulmonary embolism. Assessment limited in the basilar segmental and nondiagnostic in the basilar subsegmental pulmonary arteries due to respiratory motion. 2. Cardiomegaly. 3. Small sliding-type hiatal hernia versus esophagitis with wall thickening at the distal esophagus. - EKG, initial: Ectopic atrial tachycardia, right axis deviation, right bundle branch block, left ventricular hypertrophy and ST-T change anterolateral infarct age indeterminate, inferior infarct age indeterminate ST elevation in anterolateral leads suggestive of myocardial aneurysm. - repeat EKG - Troponin: 0.045 -> 0.054 -> 0.060 - ASA 324 given - cardiology consulted signed off - telemetry monitoring (4) Elevated CK: Code(s): R74.8 - Abnormal levels of other serum enzymes Status: Acute Assessment and Plan: Resolved - CK 535, trend - psychomotor agitation noted in ED and tox screen +for marijuana and amphetamines. 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 Code(s): E11.9 - Type 2 diabetes mellitus without complications Status: Acute Assessment and Plan: - Continue home regimen - A1C 7.4% in 202 (6) Essential hypertension: Code(s): I10 - Essential (primary) hypertension Status: Chronic Assessment and Plan: - continue home medications: Lisinopril 20 mg daily, Metoprolol 25 mg PO daily - monitor (7) Cannabinoid hyperemesis syndrome: Code(s): R11.2 - Nausea with vomiting, unspecified; F12.90 - Cannabis use, unspecified, uncomplicated Status: Acute Assessment and Plan: Advised on smoking cessation DS: Summary Hospital Course Hospital Course: 64 y/o M presents here with nausea, vomiting, and diarrhea with PMH of CVA, COPD, diabetes, AGNIESZKA (refuses CPAP), CKD, chronic anemia, CAD, LA, hypertension, and hyperlipidemia. The patient presents here from home for further evaluation of nausea, vomiting, diarrhea, abdominal pain, and confusion. The following HPI was obtained through patient interview, however patient difficult historian. He reports he initially developed nausea, vomiting, and diarrhea that started yesterday afternoon. Describes the abdominal pain as diffuse, intermittent, and worsens with vomiting. Patient then became confused over the last 24 hours. The patient was unable to do tell the ED provider the month or year which is new to the patient. The symptoms are also accompanied by fever, cough, congestion, and shortness of breath. Initially endorsed chest pain. Now denying and unable to elaborate. He endorses marijuana use, continued to deny amphetamine use. Initial VS at presentation: 97.6? F, HR 80, R 16, 150/71, and 100% on RA. ED workup showed: WBC 16.3, hemoglobin 16.1 (previously 11.3 in 2022), creatinine 1.8 and GFR 38 (previously 1.1 and GFR >60 in 202), lactic 2.8, amm onia negative, CK 535, troponin 0.045, TSH 1.84. During the hospitalization patient was treated for nausea vomiting. Possibly due to cannabinoid hyperemesis syndrome due to use of marijuana and amphetamine. Advised to stop smoking. Patient also treated for AKA which has been resolved. Patient has underlying kidney disease and follows up with Nephrology, Cardiology (Dr. Baxter), PCP. During the hospitalization patient also was seen by Cardiology for elevated troponin and advised no intervention. Of note patient has chronically implanted pacemaker. Status at Discharge Cognitive/behavioral status at discharge: Stable Time Spent with Patient Time attestation: Total time spent providing and/or coordinating discharge services: 45 minutes Exam Narrative: restless, disoriented. heart lung fine. Const: General: comfortable and no acute distress Other: , male, restless, nontoxic appearance HENMT: Face/Nose/Sinus: Normal nares present Mouth: Yes moist mucous membranes Eyes: General: appearance normal, both eyes and all related structures Sclera: sclerae normal Pupils: Equal, round and reactive pupils present EOM: EOMs intact bilaterally Resp: Effort & Inspection: normal respiratory effort Auscultation: clear to auscultation bilaterally Cardio: Rate: regular rate Rhythm: regular rhythm Other: S1-S2 present without murmur, rub, ectopy GI: Other: Abdomen rounded, soft, nontender. Normoactive bowel sounds in all quadrants. Skin: General skin exam: normal color and no rashes or lesions noted Wounds: no wounds Neuro: Cranial nerves: Yes Equal, round and reactive pupils present Speech: normal speech Sensory Exam: normal sensation Other: Moving all extremities. Disoriented. Follows commands. Extrem: General: normal to inspection Psych: Mental Status: mental status grossly normal Affect: Anxious affect present Other: +restless. Following commands. Poor in sight and judgment at present. DS: Data Data Completed and Pending Labs on day of discharge: Labs from last 24 hours 09/19/24 09/19/24 09/19/24 11:43 08:10 06:21 WBC 9.9 RBC 3.25 L Hgb 11.6 L Hct 34.6 L MCV 106.5 H MCH 35.7 H MCHC 33.5 RDW 14.0 Plt Count 217 MPV 10.1 Sodium 140 Potassium 3.8 Chloride 111 H Carbon Dioxide 22 Anion Gap 7 BUN 18 Creatinine 1.22 Estim Creat Clear Calc 62 Estimated GFR 60 Glucose 92 POC Capillary Glucose 124 H 100 Calcium 10.3 H Total Bilirubin 0.5 AST 36 ALT 47 Alkaline Phosphatase 62 Total Protein 6.0 L Albumin 3.2 L 09/18/24 09/18/24 09/18/24 19:39 17:27 12:14 WBC RBC Hgb Hct MCV MCH MCHC RDW Plt Count MPV Sodium Potassium Chloride Carbon Dioxide Anion Gap BUN Creatinine Estim Creat Clear Calc Estimated GFR Glucose POC Capillary Glucose 194 H 153 H 157 H Calcium Total Bilirubin AST ALT Alkaline Phosphatase Total Protein Albumin Imaging Radiologist's impression: ITS Impressions Chest X-Ray 09/16/24 15:18 Impression: 1: No acute cardiopulmonary disease. Head CT 09/16/24 15:21 IMPRESSION: 1. No acute intracranial process. 2. 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 3. Left otomastoiditis effusion. Abdomen/Pelvis CT 09/16/24 15:23 IMPRESSION: No acute intra-abdominal pathology, as detailed above. Chest CTA 09/16/24 17:05 IMPRESSION: 1. No pulmonary embolism. Assessment limited in the basilar segmental and nondiagnostic in the basilar subsegmental pulmonary arteries due to respiratory motion. 2. Cardiomegaly. 3. Small sliding-type hiatal hernia versus esophagitis with wall thickening at the distal esophagus. Discharge Plan Discharge Attending physician on discharge: Indio Vasquez Consulting providers: Basilio Cisse; Leigh Riley; Elizabeth Elkins Discharging Clinician: Indio Vasquez Anticipated Discharge Date/Time: 09/19/24 11:49 Patient Disposition: Home, Self-Care Activity: as tolerated Diet: heart healthy and diabetic Discharge Instructions: Patient needs to stop taking marijuana and amphetamines. Possible nausea and vomiting due to marijuana. Needs to follow-up with the PCP, Nephrology, Cardiology within a week upon discharge. Advised oral hydration. Check blood pressure 1 to 2 times a day. Record and bring into your doctor for review. Call your doctor if your blood pressure is greater than 180/110 or less than 90/45. Walk with cane or other assist device. Take precautions to avoid falls. Rise slowly from a lying or sitting position. Pause before standing or walking. Contact your doctor or call 911 and come to the Emergency Room if you have any type of trauma, lightheadedness with standing or other worrisome symptoms. Avoid NSAIDs (ibuprofen, naproxen, Aleve). Tylenol is safe to take. Thank you for using [facility] for your health care needs. Patient Instructions: Antibiotic Form, Methamphetamine Use Disorder (ED), Methamphetamine Use Disorder (DC) Patient Language: Latvian Stand Alone Forms: General Discharge Information Follow-up/Referrals: Ai,PHILIP Perea [Primary Care Provider] - Basilio Cisse MD [Physician] - Discharge Medications: Continued oxybutynin chloride 15 mg tablet extended release 24hr 15 mg PO DAILY insulin glargine [Lantus U-100 Insulin] 100 unit/mL solution 45 unit SUBCUT HS hydrocodone-acetaminophen 10-325 mg tablet 1 tablet PO Q8H Rx Instructions: pain scale 4 to 6 famotidine 20 mg tablet 20 mg PO BID tamsulosin 0.4 mg capsule 0.4 mg PO HS (DME) Dexcom G7 Sensor Device MISCELLANEOUS (DME) Dexcom G7 Hose Sprayer Misc MISCELLANEOUS Jardiance 10 mg tablet 10 mg PO DAILY Repatha Syringe 140 mg/mL syringe 140 mg SUBCUT [id number] Rx Instructions: Every other Thursday albuterol sulfate 90 mcg/actuation HFA aerosol inhaler 2 puff INHALATION Q4H PRN (Reason: shortness of breath or wheezing) ammonium lactate 12 % lotion 1 applic TOPICAL BID bupropion HCl (smoking deter) 150 mg tablet extended release 12 hr 150 mg PO .q12hr fenofibrate 150 mg capsule 150 mg PO DAILY ferrous sulfate [Feosol] 325 mg (65 mg iron) tablet 325 mg PO TID gabapentin 600 mg tablet 600 mg PO TID Rx Instructions: pt. takes one and a half tab (900mg) in morning and noon and 2 tabs 1200 mg in the evenings insulin glargine [Lantus Solostar U-100 Insulin] 100 unit/mL (3 mL) insulin pen 40 unit SUBCUT QPM meloxicam 7.5 mg tablet 7.5 mg PO DAILY nateglinide 120 mg tablet 120 mg PO TID Rx Instructions: give before meal(s) pantoprazole 40 mg tablet,delayed release (DR/EC) 40 mg PO QAM topiramate [Topamax] 100 mg tablet 100 mg PO BID atorvastatin 80 mg tablet 80 mg PO HS clopidogrel 75 mg tablet 75 mg PO DAILY ergocalciferol (vitamin D2) 1,250 mcg (50,000 unit) capsule 1,250 mcg PO WEEKLY Rx Instructions: pT TAKES ON thursday MORNING amitriptyline 100 mg tablet 100 mg PO HS metoprolol succinate 50 mg Tablet Extended Release 24 Hr 25 mg PO DAILY lisinopril 20 mg Tablet 20 mg PO DAILY levetiracetam 250 mg Tablet 250 mg PO TID folic acid 1 mg Tablet 1 mg PO DAILY aspirin 81 mg tablet,chewable 81 mg PO DAILY gabapentin 300 mg Capsule 300 mg PO TID Qty: 0 0RF Rx Instructions: 3 tabs in AM and afternoon, 4 tabs in evening Date of admission: 09/16/24 17:42 Primary Care Provider: Ai,Dina Moser Admitting Provider: Erna Spears Attending physician on admission: Indio Vasquez Condition: Stable
== END 2024-09-19 12:30 | disposition home or self-care (01) ==
LOC: ANHED 17:45 → ANHIMU 09-17 08:28 → ANH2MED 09-18 12:40 → ANHIMU 09-19 14:18
PROVIDERS: Physician Assistant; Student in an Organized Health Care Education/Training Program; Admitting Provider Hospitalist; Emergency Provider Emergency Medicine; PCP Physician Assistant; Visit Provider General Practice
DX: R11.2 Nausea with vomiting, unspecified (principal); F12.90 Cannabis use, unspecified, uncomplicated; F15.90 Other stimulant use, unspecified, uncomplicated; R41.82 Altered mental status, unspecified; N17.9 Acute kidney failure, unspecified; R79.89 Other specified abnormal findings of blood chemistry; Z20.822 Contact with and (suspected) exposure to COVID-19; R74.8 Abnormal levels of other serum enzymes; F17.210 Nicotine dependence, cigarettes, uncomplicated; J44.9 Chronic obstructive pulmonary disease, unspecified; G47.33 Obstructive sleep apnea (adult) (pediatric); I25.10 Atherosclerotic heart disease of native coronary artery without angina pectoris; E11.42 Type 2 diabetes mellitus with diabetic polyneuropathy; E11.22 Type 2 diabetes mellitus with diabetic chronic kidney disease; I12.9 Hypertensive chronic kidney disease with stage 1 through stage 4 chronic kidney disease, or unspecified chronic kidney disease; N18.30 Chronic kidney disease, stage 3 unspecified; D75.9 Disease of blood and blood-forming organs, unspecified; E55.9 Vitamin D deficiency, unspecified; E78.5 Hyperlipidemia, unspecified; D64.9 Anemia, unspecified; I65.23 Occlusion and stenosis of bilateral carotid arteries; Z79.4 Long term (current) use of insulin; Z79.84 Long term (current) use of oral hypoglycemic drugs; Z79.51 Long term (current) use of inhaled steroids; Z79.899 Other long term (current) drug therapy; Z86.73 Personal history of transient ischemic attack (TIA), and cerebral infarction without residual deficits; Z95.0 Presence of cardiac pacemaker
CPT/HCPCS: 36415; 70450; 71045; 71275; 74177; 80053; 80307; 81001; 82077; 82140; 82550; 82948; 83036; 83605; 83690; 83735; 84100; 84443; 84484; 85025; 85027; 85610; 85730; 87637; 93005; 96360; 96361; 96374; 96375; 96376; 99285; A9270; G0378; G0379; J0360; J1815; J2060; J2405; J7030; J7120; Q9967

== ENCOUNTER 2024-10-17 08:47 | Inpatient (IN) | payer OTHER, SELFPAY ==
[2024-10-17] VITALS (19 sets, daily range): BP systolic 129–190; BP diastolic 72–93; PULSE 98–123; RESP 14–166; TEMP 36.8–37.6; O2SAT 98–100; BMI 32.6
--- NOTE | ~2024-10-17 | CT_ITS ---
CT Scan of the Chest without Contrast: Clinical Indication: Pulmonary edema versus pneumonia Technique: Contiguous sections were acquired throughout the chest without intravenous contrast. Dose reduction technique was used on this scan by utilizing automated exposure control and iterative recon struction technique. The dose-length product (DLP) was 372.99 mGy-cm. COMPARISON: 09/16/2024 Findings: There is no evidence of any significant mediastinal, hilar or axillary lymphadenopathy. Extensive cor onary artery calcification present. There is no evidence of pleural or pericardial effusion. Questionable minimal hypoventilatory change versus minimal pulmonary edema change. Images through the upper abdomen reveal no abnormalities. Impression: Suspected minimal hypoventilatory/atelectatic change versus possibly minimal pulmonary edema change. Reviewed, dictated and finalized at [facility]. Impression: Suspected minimal hypoventilatory/atelectatic change versus possibly minimal pu lmonary edema change.
--- NOTE | ~2024-10-17 | CT_ITS ---
CT brain wo con Ordering provider: Arabella Underwood APRN History: 64 years Male with . altered mental status . Comparison: None. Technique: CT of the head without contrast. Radiation reduction technique utilized. The dose-length product was 681 mGy-cm. FINDINGS: BRAIN PARENCHYMA AND CSF SPACES: Mild leukoaraiosis and diffuse cortical atrophy. Mild atheromatous d isease. Old infarcts are seen in both occipital lobes with encephalomalacia. No midline shift, mass e ffect or hemorrhage. The brain parenchyma and CSF spaces are otherwise normal. VISUALIZED PARANASAL SINUSES: Left maxillary sinus disease otherwise, Well aerated. MASTOIDS: Left mastoid air cells effusion. BONES: The bones appear intact. SOFT TISSUES: Visualized nasopharynx is normal. Superficial soft tissues are normal. IMPRESSION: No acute intracranial findings. Reviewed, dictated and finalized at location A.
--- NOTE | ~2024-10-17 | XR_ITS ---
XR chest 2V Ordering provider: Arabella Underwood APRN History: 64 years Male with . shortness of breath, PT COMBATIVE, BEST VIEWS POSSIBLE . Comparison: September 16, 2024 FINDINGS: MEDIASTINUM: The cardiac silhouette is moderately enlarged. Left bipolar pacemaker. Congestive moo. LUNGS: No pneumothorax. Opacification the left lung with minimal effusion. Bilateral interstitial thi ckening. OTHER: No free air under the diaphragm. Degenerative changes of the spine. IMPRESSION: Left basilar atelectasis versus pneumonia with possible effusion. Bilateral interstitial thickening suggestive of pneumonitis versus pulmonary edema. Reviewed, dictated and finalized at location A. IMPRESSION: Left basilar atelectasis versus pneumonia with possible effusion. Bilateral interstitial thickening suggestive of pneumonitis versus pulmonary ed heidi.
--- NOTE | 2024-10-17 09:11 | ECG_ITS ---
Test Date: 2024-10-17 09:18:44 Measurements Intervals [place] Rate: 108 P: 0 AK: 0 QRS: -85 QRSD: 160 T: 0 QT: 321 QTc: 431 Interpretive Statements ECTOPIC ATRIAL TACHCYARDIA RIGHT BUNDLE BRANCH BLOCK [120+ ms QRS DURATION, UPRIGHT V1, 40+ ms S IN I/aVL/V4/V5/V6] LEFT VENTRICULAR HYPERTROPHY AND ST-T CHANGE [VOLTAGE CRITERIA PLUS ST/T ABNORMALITY] OLD INFERIOR INFARCT ST ELEVATION IN THE INFEROLATERAL LEADS, WHICH IS NOTED ON PRIOR EKG Compared to ECG 09/16/2024 23:07:51 NO SIGNFICANT CAROL Electronically Signed On 10-18-2024 16:28:40 CDT by Jadon Baxter M.D.
[2024-10-17 09:44] LABS: Basophils Percent Auto 0.1 % (0.2-1.2); Eosinophils Percent Auto 0.1 % (0-4.4); Hematocrit 43.6 % (42.0-52.0); Hemoglobin 15.5 g/dL (14.0-18.0); Immature Granulocyte Absolute 0.09 K/mm3 (0.00-0.031); Immature Granulocyte Percent A 0.5 % (0-0.5); Lymphocytes Absolute Auto 2.74 K/mm3 (0.9-3.2); Lymphocytes Percent Auto 14.9 % (18.3-44.2); Mean Corpuscular HGB Conc 35.6 g/dl (32-36); Mean Corpuscular Hemoglobin 35.2 pg (26-34); Mean Corpuscular Volume 99.1 fl (80-100); Mean Platelet Volume 10.6 fl (7.4-10.4); Monocytes Absolute Auto 1.5 K/mm3 (0.1-0.6); Monocytes Percent Auto 8.1 % (2.6-8.5); Neutrophils Percent Auto 76.3 % (45.5-73.1); Platelet Count Result 394 k/mm3 (150-375); Red Cell Distribution Width 13.7 % (11.5-14.5); White Blood Count 18.3 K/mm3 (4.5-10.0)
[2024-10-17] MEDS: LORazepam INJ (*CRX) 2 MG/ML VIAL 1 MG IV PUSH (09:44)
--- OUTSIDE RECORDS SUMMARY | 2024-10-17 09:49 | XMS_ITS | Encounter Summary ---
Author Organization [facility] Address [address] [facility] [place] [address] Care Team Providers Care Brazer Assembler Name Role Phone Dina Cloud PA-C Primary Care Provider Reason for Visit * Reason Onset Date Comments Question 02/25/2022 Encounter Details Date Type Department Care Team (Late st Contact Info) Description 02/25/2022 Telephone [facility] [address] [place] [address] Dina Cloud PA-C [address] [place] [address] Question Social History Tobacco Use [...] arification on request. Patient Call Back number: [phone] documented in this encounter Plan of Treatment Upcoming Encounters Date Type Department Care Team (Late st Contact Info) Description 10/18/2024 1:00 AM CDT Clinical Support [facility] - [facility], [address] [address] 10/25/2024 9:00 AM CDT Office Visit [facility] - Cardiology [facility]4 [facility], [address] [address] Daily Bravo MD [address] [place] [address] 11/08/2024 3:40 PM CDT Office Visit [facility] - Endocrinology [address] [place] [address], [place] [address] Garry Tracey MD [address] [place] [address] 2L [place] [address] 01/17/2025 1:10 AM CDT Clinical Support [facility] - Cardiology [facility] [address] 02/23/2025 4:00 PM CDT Office Visit [facility] - Pulmonology [address] [place] [address], [place] [address] Becca Ford MD [address] [place] [address] 2L DIV [place] [address] 02/24/2025 9:10 AM CDT [facility] [address] [place] [address], [place] [address] Robb Howell MD [address] [facility] 3L [place] [address] 03/02/2025 9:00 AM CDT Office Visit [facility] - Nephrology [address] [place] [address], [place] [address] Nataliia Cooper MD [address] [facility] 3L [place] [address] 04/04/2025 9:00 AM CDT Office Visit [facility] - Neurology [address] [place] [address], [place] [address] Meredith Weiss MD [facility] 1L [place] [phone] 04/18/2025 1:10 AM CDT [facility] [address] [facility], [address] [phone] 07/18/2025 1:10 AM BLUE LINE HANGER Clinical Support [facility] - Cardiology [address] [facility], [address] [phone] documented as of this encounter Visit Diagnoses Not on filedocumented in this encounter Care Teams Brazer Assembler Relationship Specialty Start Date End Date Dina Cloud PA-C [address] [place] [phone] PCP - General Physician Lithographic Printing Machinist 07/10/20 documented as of this encounter
--- OUTSIDE RECORDS SUMMARY | 2024-10-17 09:50 | XMS_ITS | Encounter Summary ---
Author Organization [facility] Address [facility]6 [place] [address] Care Team Providers Care Patient Financial Services Manager Name Role Phone Joseph Ann MD Unavailable [phone] Chai Junior MD Unavailable Dina Cloud PA-C Primary Care Provider [phone] Encounter Details Date Type Department Care Team (Late st Contact Info) Description 07/20/2020 [facility] Message Enc [place] [facility], [address] [address] [employer], [facility] Provider Missed Carelink Transmission Social [...] COVID-19? No / Unsure 07/17/2020 11:50 AM TELEPHONE CLERK TELEGRAPH OFFICE documented as of this encounter Plan of Treatment Not on file documented as of this encounter Visit Diagnoses Not on filedocumented in this encounter Care Teams Patient Financial Services Manager Relationship Specialty Start Date End Date Dina Cloud PA-C [facility] [place] [address] PCP - General NURSE PRACTITIONER 05/19/19 Joseph Ann MD Three [facility]. [address] [place] [address] [place] Programmer Or Analyst CARDIOVASCULAR DISEASE 01/02/16 Chai Junior MD [facility]. [address] [place], [place] [address] EP Programmer Or Analyst CARDIOVASCULAR DISEASE 09/03/16 documented as of this encounter
--- OUTSIDE RECORDS SUMMARY | 2024-10-17 09:50 | XMS_ITS | Encounter Summary ---
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 [address] [place] [address] PCP - General NURSE PRACTITIONER 05/04/18 10/31/18 Dina Cloud PA-C [address] [place] [address] PCP - General NURSE PRACTITIONER 05/19/19 [facility] [address] [place] [address] Smock Plywood Matcher CARDIOVASCULAR DISEASE 01/02/16 Chai [facility] [address] [place], [place] [address] EP Plywood Matcher CARDIOVASCULAR DISEASE 09/03/16 documented as of this encounter
--- OUTSIDE RECORDS SUMMARY | 2024-10-17 09:50 | XMS_ITS | Encounter Summary ---
Author Organization [facility] Address [address] [place] [address] Phone Care Team Providers Care Information Systems Administrator Name Role Phone Dina Cloud PAC Primary Care Provider + [phone] Lefty Sousa MD Unavailable [phone] Encounter Details Date Type Department Care Team (Late st Contact Info) Description 08/23/2020 Telephone [facility] [address] [place] [address] Lefty Sousa MD [facility] [address] [address] Social History Tobacco Use Types Packs/Day Years Used Date Smoking Tobacco: Every Day Cigarettes 1 50.2 Started: 08/03/1974 Smokeless Tobacco: Never Alcohol Use Standard Drinks/Week Comments No 0 (1 standard drink = 0.6 oz pur e alcohol) PHQ-2 Answer Date Recorded Total Score - Questions 1-9 0 05/03 Sex and Gender Information Value Date Recorded Sex Assigned at Not on file Legal Sex Male 11:32 AM LONG DISTANCE OPERATOR Gender Identity Not on file Sexual Orientation Not on file documented as of this encounter Miscellaneous Notes * Telephone Encounter - Ines Pham - 08/23/2020 2:50 PM CST PT HAD N SHOW FOR 08/23/20 APPT, PT STATED HIS RIDE DID NOT SHOW UP TODAY, UNABLE TO WRITE WILL WAITFOR AID TO RETURN TOMORROW AND CALL AND RESCHEDULE. DISTANCE OPERATOR documented in this encounter Plan of Treatment Upcoming Encounters Date Type Department Care Team (Late st Contact Info) Description 12/09/2024 8:30 AM CDT Office Visit [facility] [address] [place] [phone] Lefty Sousa MD 1052 [facility] [place] [address] [address] documented as of this encounter Visit Diagnoses Not on filedocumented in this encounter Additional Health Concerns Assessment Noted Time PHQ-9 Depression Total Score: 0 05/17/20 8:28 AM CDT documented as of this encounter Care Teams Information Systems Administrator Relationship Specialty Start Date End Date Dina Cloud PAC [facility] [place] [address] PCP - General Physician Puppet Engineer 05/25/20 Lefty Sousa MD [address] [place] [address] Consulting Physician Hematology and Oncology 01/03/21 documented as of this encounter
--- OUTSIDE RECORDS SUMMARY | 2024-10-17 09:50 | XMS_ITS | Encounter Summary ---
Author Organization [facility] Address [facility]6 [place] [address] Care Team Providers Care Insecticide Expert Name Role Phone Joseph Ann MD Unavailable [phone] Chai Junior MD Unavailable Dina Cloud PA-C Primary Care Provider [phone] Encounter Details Date Type Department Care Team (Late st Contact Info) Description 08/12/2019 [facility] at [address] [address] Baudilio Sewell MA Social History Tobacco Use [...] * BASIC METABOLIC PANEL (02/21/2019) Pathologist [facility] SODIUM S/P/B 134 137 - 145 POTASSIUM [...] Result * VITAMIN B-12 (02/21/2019) Pathologist [facility] VITAMIN B12 S/P/B 470 239 - 931 02/21/2019 us [facility]ORATORY Final Result * FOLATE (OUTSIDE LAB) (02/21/2019) Pathologist [facility] FOLATE >20.0 02/21/2019 us Doc [facility] LAB-OUTSIDE/ABSTRACTED Final Result * LIPID PANEL (02/20/2019) Pathologist [facility] CHOLESTEROL 129 0 - 200 HDL 27 TRIGLYCERIDES 241 <150 LDL (CALCULATED) 79 02/20/2019 us Doc [facility]ORAT[facility] Final Result * PROTIME (OUTSIDE LAB) (02/20/2019) Pathologist [facility] PROTIME 13.1 INR 1.0 02/20/2019 us Doc [facility] Abstract LAB-OUTSIDE/ABSTRACTED Final Result documented in this encounter Visit Diagnoses Not on filedocumented in this encounter Care Teams Insecticide Expert Relationship Specialty Start Date End Date Dina Cloud PA-C [address] [place] [address] PCP - General NURSE PRACTITIONER 05/19/19 Joseph [facility] [address] [place] [address] Marcus Chest Painting And Sealing Supervisor CARDIOVASCULAR DISEASE 01/02/16 Chai Junior MD [facility] [address] [place] [address] EP Chest Painting And Sealing Supervisor CARDIOVASCULAR DISEASE 09/03/16 documented as of this encounter
--- OUTSIDE RECORDS SUMMARY | 2024-10-17 09:50 | XMS_ITS | Encounter Summary ---
Author Organization [facility] Address [address] [place] [address] Phone Care Team Providers Care Contract Law Specialist Name Role Phone Provider, Unknown Primary Care Provider Unavaila Dina Yepez Primary Care Provider + [phone] Lefty Sousa MD Unavailable [phone] Encounter Details Date Type Department Care Team (Late st Contact Info) Description 02/09/2020 Telephone [facility] [address] [place] [address] Lefty Sousa MD [address] [place] [address] [address] Social History Tobacco Use Types [...] on file 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 Gender Identity Not on file Sexual Orientation [...] [facility] [address] [place] [address] Lefty Sousa MD [address] [place], [place] [address] documented as of this encounter Visit Diagnoses Not on filedocumented in this encounter Additional Health Concerns Assessment Noted Time PHQ-9 Depression Total Score: 0 11/03/19 8:14 AM CDT documented as of this encounter Care Teams Contract Law Specialist Relationship Specialty Start Date End Date Provider, Unknown UNKNOWN PCP - General Primary Care 07/14/18 05/24/20 Dina Cloud PAC [address] [place] [address] PCP - General Physician Rn Recruitment 05/25/20 Lefty Sousa MD [address] [place] [phone] Consulting Physician Hematology and Oncology 01/03/21 documented as of this encounter
--- OUTSIDE RECORDS SUMMARY | 2024-10-17 09:50 | XMS_ITS | Encounter Summary ---
Author Organization [facility] Address [facility]6 [place] [address] Care Team Providers Care Counseling Department Chair Name Role Phone Joseph Ann MD Unavailable [phone] Chai Junior MD Unavailable Dina Cloud PA-C Primary Care Provider [phone] Encounter Details Date Type Department Care Team (Late st Contact Info) Description 10/01/2020 [facility] Message Enc [place] [facility]'[address] [address] [facility] Provider Missed or Cancelled Appointment Social [...] on filedocumented in this encounter Care Teams Counseling Department Chair Relationship Specialty Start Date End Date Dina Cloud PA-C [address] [place] [address] PCP - General NURSE PRACTITIONER 05/19/19 Joseph Ann MD [address] [place] [address] [place] Unleavened Dough Mixer CARDIOVASCULAR DISEASE 01/02/16 Chai Junior MD [address] [place] [address] EP Unleavened Dough Mixer CARDIOVASCULAR DISEASE 09/03/16 documented as of this encounter
--- OUTSIDE RECORDS SUMMARY | 2024-10-17 09:50 | XMS_ITS | Encounter Summary ---
Author Organization [facility] Address [address] [place] [address] Phone Care Team Providers Care Latex Foam Worker Name Role Phone Dina Cloud PAC Primary Care Provider + [phone] Lefty Sousa MD Unavailable [phone] Encounter Details Date Type Department Care Team (Late st Contact Info) Description 09/17/2020 Telephone [facility] [address] [place] [address] Lefty Sousa MD 1052 [facility] [place] [address] [address] Social History Tobacco Use [...] on file Legal 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 Male 11:32 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 SPECIALIST Gender Identity Not on file Sexual Orientation Not on file documented as of this encounter Miscellaneous Notes * Telephone Encounter - Ketty Lopez - 09/17/2020 9:20 AM CST Called pt to reschedule due to weather-pt states he will have his emergency medicine physician assistant call back to reschedule GRATION SPECIALIST documented in this encounter Plan of Treatment Upcoming Encounters Date Type Department Care Team (Late st Contact Info) Description 12/09/2024 8:30 AM CDT Office Visit [facility] [address] [place] [phone] Lefty Sousa MD 1052 [facility] 2 [place] [address] documented as of this encounter Visit Diagnoses Not on filedocumented in this encounter Additional Health Concerns Assessment Noted Time PHQ-9 Depression Total Score: 0 05/17/20 8:28 AM CDT documented as of this encounter Care Teams Latex Foam Worker Relationship Specialty Start Date End Date Dina Cloud PAC [address] [place] [address] PCP - General Physician Agronomy Professor 05/25/20 Lefty Sousa MD [address] [place] [phone] Consulting Physician Hematology and Oncology 01/03/21 documented as of this encounter
--- OUTSIDE RECORDS SUMMARY | 2024-10-17 09:50 | XMS_ITS | Encounter Summary ---
Author Organization [facility] Address [address] [facility] [place] [address] Care Team Providers Care Loan Servicing Officer Name Role Phone Dina Cloud PA-C Primary Care Provider Reason for Visit * Reason Onset Date Comments Medication Prior Auth Request 11/20/2023 Encounter Details Date Type Department Care Team (Late st Contact Info) Description 11/20/2023 Telephone [facility] - Cardiology [address] [facility] [address] [place] [address] Kkia Ocampo, PA [address] [place] [address] Medication Prior Auth Request Social History Tobacco Use Types Packs/Day Years Used Date Smoking Tobacco: Every Day Cigarettes 1 51.2 Started: 1972 Smokeless Tobacco: Never Comments:06/25 08/04 [...] 140 MG/ML prefilled syringe Call Back Number: [phone] documented in this encounter Plan of Treatment Upcoming Encounters Date Type Department Care Team (Late st Contact Info) Description 10/18/2024 1:00 AM CDT [facility] [address] [place] [phone] 10/25/2024 9:00 AM CDT [facility] [address] [place] [address], [address] [address] Daily Bravo MD [address] [place] [address] 11/08/2024 3:40 PM CDT [facility] End[facility] [address] [place] [phone] Garry Tracey MD [address] [place] [address] 2L [place] [address] 01/17/2025 1:10 AM CDT Clinical [facility]iology [facility] [address] [address] 02/23/2025 4:00 PM CDT [facility] Pulmon[facility] [address] [place] [phone] Becca Ford MD [address] [place] [address] 2L [place] [address] 02/24/2025 9:10 AM CDT Office Visit [facility] - Dermatology [address] [place] [address], [place] [address] Robb Howell MD [address] [place] [address] 3L [place] [address] 03/02/2025 9:00 AM CDT [facility] [address] [place] [address], [place] [address] Nataliia Cooper MD [address] [place] [address] 3L [place] [address] 04/04/2025 9:00 AM CDT [facility] [address] [place] [address], [place] [address] Meredith Weiss MD [address] [place] [address] 1L [place] [address] 04/18/2025 1:10 AM CDT Clinical Support [facility] - Cardiology [address] [phone] 07/18/2025 1:10 AM CONCRETE FLOOR INSTALLER Clinical Support [facility] - Cardiology [address] [phone] documented as of this encounter Visit Diagnoses Not on filedocumented in this encounter Care Teams Loan Servicing Officer Relationship Specialty Start Date End Date Dina Cloud PA-C [address] [place] [phone] PCP - General Physician Vp Software Support 07/10/20 documented as of this encounter
--- OUTSIDE RECORDS SUMMARY | 2024-10-17 09:50 | XMS_ITS | Encounter Summary ---
Author Organization [facility] Address [address] [facility] [place] [address] Care Team Providers Care Game Show Host Name Role Phone Dina Cloud PA-C Primary Care Provider Reason for Visit * Reason Onset Date Comments Medication Prior Auth Request 03/04/2024 Encounter Details Date Type Department Care Team (Late st Contact Info) Description 03/04/2024 Telephone [facility] [address] [facility] [address] [place] [address] Kika Ocampo PA [address] [place] [address] Medication Prior Auth Request Social History Tobacco [...] for a refill Patient Call Back number: [phone] documented in this encounter Plan of Treatment Upcoming Encounters Date Type Department Care Team (Late st Contact Info) Description 10/18/2024 1:00 AM CDT Clinical Support [facility] - Cardiology [address] [place] [phone] 10/25/2024 9:00 AM CDT Office Visit [facility]ician Group - Cardiology [address] [place] [phone] Daily Bravo MD [address] [place] [address] 11/08/2024 3:40 PM CDT Office Visit [facility] Group - Endocrinology [address] [place] [address], [place] [address] Garry Tracey MD [address] [place] [address] [place] [address] 01/17/2025 1:10 AM CDT Clinical Support [facility] - Cardiology [address] [place] [phone] 02/23/2025 4:00 PM CDT [facility] [address] [place] [address], [place] [address] Becca Ford MD [address] [place] [address] 2L DIV [place] [address] 02/24/2025 9:10 AM CDT Office Visit [facility] Dermatology [address] [place] [address], [place] [address] Robb Howell MD [address] [place] [address] 3L [place] [address] 03/02/2025 9:00 AM CDT [facility] [address] [place] [address], [place] [address] Nataliia Cooper MD [address] [place] [address] 3L [place] [address] 04/04/2025 9:00 AM CDT [facility] [address] [place] [address], [place] [address] Meredith Weiss MD [address] [place] [address] 1L [place] [phone] 04/18/2025 1:10 AM CDT Clinical Support [facility] [address] [phone] 07/18/2025 1:10 AM AUTOMOTIVE PARTS ADVISOR Clinical Support [facility] - Cardiology [address] [facility], [address] [phone] documented as of this encounter Visit Diagnoses Not on filedocumented in this encounter Care Teams Game Show Host Relationship Specialty Start Date End Date Dina Cloud PA-C [address] [place] [phone] PCP - General Physician Travelift Operator 07/10/20 documented as of this encounter
--- OUTSIDE RECORDS SUMMARY | 2024-10-17 09:50 | XMS_ITS | Clinical Summary ---
Author Organization [facility] Address [address] [place] [address] Care Team Providers Care Proposal Editor Name Role Phone Unavailable Primary Care Provider [...] each day 6 Active ergocalciferol 1.25 MG (99780 UT) capsule ergocalciferol (vitamin D2) 1,250 mcg [...] 1 (one) time each day 3 Active Albuterol-[place] sonide 90-80 MCG/ACT aerosol Inhale 2 puffs [...] A1C 8.7(H) 4.8 - 5.6 % [facility] Comment: Prediabetes: 5.7 - 6.4 Diabetes: >6.4 Glycemic control for adults with diabetes: <7.0 03/08/2024 7:39 AM CDT 03/07/2024 11:00 PM CDT us Kevin Shah MD LAB BLOOD ORDERABLES Final R esult [facility] [place] [address] [place] [address] from Last 3 Months or Most Recently Relevant to Health Maintenance Insurance [facility]
--- OUTSIDE RECORDS SUMMARY | 2024-10-17 09:50 | XMS_ITS | Encounter Summary ---
Author Organization [facility] Address [facility] [place] [address] Care Team Providers Care Club Car Attendant Name Role Phone Joseph Ann MD Unavailable [phone] Chai Junior MD Unavailable Annie Chavez MD Primary Care Provider [phone] Ramandeep AnnP Primary Care Provider [phone] Dina Cloud PA-C Primary Care Provider [phone] Encounter Details Date Type Department Care Team (Late st Contact Info) Description 10/23/2017 Abstract [facility] at [address] [address] Baudilio Sewell MA Social History Tobacco Use [...] MRSA 03/09/2017 03/09/2017 10/05/2018 12:4 0 PM IMPORT COORDINATION AND PRODUCTION HEAD documented as of this encounter Care Teams Club Car Attendant Relationship Specialty Start Date End Date Annie Chavez MD [facility]. [facility] [address] [place] [address] PCP - General FAMILY PRACTICE 08/03/17 05/03/18 Ramandeep Ann FNP [facility]. [facility] [address] [place] [address] PCP - General NURSE PRACTITIONER 05/04/18 10/31/18 Dina Cloud PA-C [address] [place] [address] PCP - General NURSE PRACTITIONER 05/19/19 Joseph Ann MD [facility]. [facility] [address] [place] [address] [place] [employer] [facility] CARDIOVASCULAR DISEASE 01/02/16 Chai Junior MD [address] [facility] [address] [place] [address] EP [employer] Dba CARDIOVASCULAR DISEASE 09/03/16 documented as of this encounter
--- OUTSIDE RECORDS SUMMARY | 2024-10-17 09:50 | XMS_ITS | Encounter Summary ---
Author Organization [facility] Address [address] [place] [address] Care Team Providers Care In Processing Instructor Name Role Phone Dina Cloud PA-C Primary Care Provider Reason for Visit * Reason Onset Date Comments Question 09/28/2024 Encounter Details Date Type Department Care Team (Late st Contact Info) Description 09/28/2024 Telephone [facility] - Centralized Scheduling [address] [place] [address] Robb Howell MD [address] [place] [address] Question Social History Tobacco Use Types Packs/Day Years Used Date Smoking Tobacco: Every Day Cigarettes 1 51.2 Started: 1972 Smokeless Tobacco: Never Comments:06/25 1/2 ppd Alcohol Use Standard Drinks/Week [...] Miscellaneous Notes * Telephone Encounter - Maria Isabel Garcia - 09/28/2024 1:09 PM CST ruben Ceja's career based intervention coordinator is calling. She would like to confirm that Basilio does not need to followup again with Dante until the January visit. Please assist, thank you! She states that you can call his phone: [phone] DROMAT MANAGER documented in this encounter Plan of Treatment Upcoming Encounters Date Type Department Care Team (Late st Contact Info) Description 10/18/2024 1:00 AM CDT Clinical Support [facility] - Cardiology [address] [place] [phone] 10/25/2024 9:00 AM CDT [facility] [address] [place] [address], [address] [phone] Daily Bravo MD [address] [place] [address] 11/08/2024 3:40 PM CDT Office [facility] - Endocrinology [address] [place] [address], [place] [address] Garry Tracey MD [address] [place] [address] [address] [place] [address] 01/17/2025 1:10 AM CDT Clinical Support [facility] - Cardiology [facility] [address] [address] 02/23/2025 4:00 PM CDT Office Visit [facility] - Pulmonology [address] [place] [phone] Becca Ford MD [address] [place] [address] [address] [place] [address] 02/24/2025 9:10 AM CDT Office [facility] - Dermatology [address] [place] [address], [place] [address] Robb Howell MD [address] [place] [address] [address] [place] [address] 03/02/2025 9:00 AM CDT Office Visit [facility] - Nephrology [address] [place] [address], [place] [address] Nataliia Cooper MD [address] [place] [address] [address] [place] [address] 04/04/2025 9:00 AM CDT Office Visit [facility] - Neurology [address] [place] [address], [place] [address] Meredith Weiss MD [address] [place] [address] [address] [place] [phone] 04/18/2025 1:10 AM CDT Clinical Support [facility] - Cardiology [address] [phone] 07/18/2025 1:10 AM LAUNDROMAT MANAGER Clinical Support [facility] - Cardiology [address] [phone] documented as of this encounter Goals Goal Patient Goal Type Associated Problems Recent Progress Patient-Stated? Author Medication Management General On track( 025 10:03 AM LAUNDROMAT MANAGER) Ketty Candelario, MAIN Note: Expected end date: on going Interventions: Take all medications as prescribed Let your doctor know right away about any changes in your medications Make sure to request a refill of your medication at least one week prior to your last dose documented as of this encounter Visit Diagnoses Not on filedocumented in this encounter Care Teams In Processing Instructor Relationship Specialty Start Date End Date Dina Cloud PA-C [facility] [place] [address] PCP - General Physician Security Systems Specialist 07/10/20 documented as of this encounter
--- OUTSIDE RECORDS SUMMARY | 2024-10-17 09:50 | XMS_ITS | Encounter Summary ---
Author Organization [facility] Address [facility] [place] [address] Care Team Providers Care Aoc Airspace Control Officer Name Role Phone Joseph Ann MD Unavailable [phone] Chai Junior MD Unavailable Dina Cloud PA-C Primary Care Provider [phone] Encounter Details Date Type Department Care Team (Late st Contact Info) Description 08/27/2020 [place] Message [facility] [address] [address] [employer] [facility] Provider Missed Carelink Transmission Social History [...] on filedocumented in this encounter Care Teams Aoc Airspace Control Officer Relationship Specialty Start Date End Date Dina Cloud PA-C [address] [place] [address] PCP - General NURSE PRACTITIONER 05/19/19 Joseph Ann MD [address] [facility] [address] [place] [address] [place] It Business Process Architect CARDIOVASCULAR DISEASE 01/02/16 Chai Junior MD [address] [facility] [address] [place] [address] EP It Business Process Architect CARDIOVASCULAR DISEASE 09/03/16 documented as of this encounter
--- OUTSIDE RECORDS SUMMARY | 2024-10-17 09:50 | XMS_ITS | Clinical Summary ---
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 Comment: ADA 2016 GUIDELINES: Initial Diagnostic Criteria HbA1c Result: Interpretation: <5.7% Normal 5.7-6.4% At risk for diabetes mellitus >=6.5% Consistent with diabetes mellitus Diabetes monitoring Target value (ADA Recommended) <7% 03/24/2020 8:49 PM CDT 03/24/2020 8:53 PM CDT Narrative Resulting Agency Comment IN us Milton Jacob MD LAB BLOOD ORDERABLES Final Result Performing Organization Address [facility]/ZIP Co de Phone Number [address] [phone] * Occult blood, fecal non neoplasm screening (01/23/2015 12:00 PM CDT) Pathologist [facility] Stool Occult Blood NEGATIVE NEGATIVE 01/23/2015 12:0 0 PM CDT 01/23/2015 2:36 PM CDT Narrative [facility] HISTORICAL RESULTS - 01/23/2015 2:57 PM CDT Collected By je us Carlos Bernabe MD LAB BODY FLUIDS AND ST OOLS ORDERABLES Final Result [facility] HISTORICAL RESULTS * (ABNORMAL) TNI with LIPID PANEL (01/22/2015 4:47 PM CDT) Pathologist [facility] Troponin I < 0.300 0.000 - 0.300 ng/mL Comment: Reference using [facility] Chemiluminescence Negative: Repeat in 4-6 hours as indicated. Triglycerides 544(H) 0 - 199 mg/dL Comment: LDL (measured) to follow due to Triglycerides >250 mg/dL 12 hr pc highly recommended for Triglyceride Cholesterol 244(H) 0 - 199 mg/dL 01/22/2015 5:39 PM CDT [facility] [employer] HISTORICAL RESULTS Comment: Borderline: 200-239 High Risk: >239 HDL Cholesterol 28(L) 40 - 60 mg/dL 01/22/2015 5:39 PM CDT [facility] [employer] HISTORICAL RESULTS Comment: Major Risk < 40 mg/dL Moderate Risk 40-60 mg/dL Negative Risk > 60 mg/dL Cholesterol/HDL Ratio 8.7 01/22/2015 5:39 PM CDT [facility] [employer] HISTORICAL RESULTS Comment: Cholesterol / HDL Ratio 3.5:1 or less is desirable. Cholesterol / HDL Ratio greater than 5:1 is considered higher risk for developing heart disease. 01/22/2015 4:47 PM CDT 01/22/2015 4:53 PM CDT Narrative [facility] [employer] HISTORICAL RESULTS - 01/22/2015 5:39 PM CDT Jerry Tang MD LAB BLOOD ORDERABLES Cristine kae Result [facility] [employer] HISTORICAL RESULTS from Last 3 Months or Most Recently Relevant to Health Maintenance Insurance [facility] Care Teams Music Researcher Relationship Specialty Start Date End Date Dina Cloud PA [address] [place] [address] PCP - General Physician [facility] 08/28/23
--- OUTSIDE RECORDS SUMMARY | 2024-10-17 09:50 | XMS_ITS | Referral Summary ---
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 Comment: ADA 2016 GUIDELINES: Initial Diagnostic Criteria HbA1c Result: Interpretation: <5.7% Normal 5.7-6.4% At risk for diabetes mellitus >=6.5% Consistent with diabetes mellitus Diabetes monitoring Target value (ADA Recommended) <7% 03/24/2020 8:49 PM CDT 03/24/2020 8:53 PM CDT Narrative Resulting Agency Comment IN us Milton Jacob MD LAB BLOOD ORDERABLES Final Result Performing Organization Address City/[facility]/ZIP Co de Phone Number [address] [phone] * Occult blood, fecal non neoplasm screening (01/23/2015 12:00 PM CDT) Stool Occult Blood NEGATIVE NEGATIVE 01/23/2015 12:0 0 PM CDT 01/23/2015 2:36 PM CDT Narrative [facility] HISTORICAL RESULTS - 01/23/2015 2:57 PM CDT Collected By je us Carlos Bernabe MD LAB BODY FLUIDS AND ST OOLS ORDERABLES Final Result [facility] HISTORICAL RESULTS * (ABNORMAL) TNI with [...] CDT 01/22/2015 4:53 PM CDT Narrative [facility] HISTORICAL RESULTS - 01/22/2015 5:39 PM CDT Jerry Tang MD LAB BLOOD ORDERABLES Cristine l Result [facility] HISTORICAL RESULTS from Last 3 Months or Most Recently Relevant to Health Maintenance Insurance [facility] Care Teams Sticker On Relationship Specialty Start Date End Date Dina Cloud PA [address] [place] [id number] PCP - General Physician Digital Media Specialist 08/28/23
--- OUTSIDE RECORDS SUMMARY | 2024-10-17 09:50 | XMS_ITS | Referral Summary ---
Author Organization [facility] Address [address] [place] [address] Care Team Providers Care Overhead Door Technician Name Role Phone Dina Cloud PA-C Primary Care Provider Source Comments [facility],non-owned Affiliates and Associated Physician Practices is amultiple site organization consisting of ambulatory clinics and hospital sitesin [place], [place], [place] and [place]. This disclosure is being madepursuant to the Care Everywhere program and may not contain all information available regarding this patient. Last updated 18.[facility] Encounters Date Type Department Care Team Description 10/12/2024 8:34 AM CDT - 10/12/2024 11:59 PM CDT Hospital Encounter [facility] OP DRAW STATION [address] [place] [phone] Nataliia Cooper MD Discharge Disposition: Home or Self Care 10/12/2024 Travel 10/12/2024 8:26 AM CDT - 10/12/2024 8:33 AM CDT Hospital Encounter [facility] [address] [place] [phone] Nataliia Cooper MD Discharge Disposition: Home or Self Care 09/28/2024 Telephone [facility] - Centralized Scheduling [address] [place] [phone] Robb Howell MD Question 09/13/2024 Orders Only [facility] - Nephrology [address] [place] [address], [place] [address] Nataliia Cooper MD Hypercalcemia 09/13/[address] [facility] - Neurology [address] [facility], [place] [address] Meredith Weiss MD Refill Request 09/08/2024 Travel 09/08/2024 8:15 AM SERIALS LIBRARIAN Office Visit [facility] - Urology [address] [facility] [address] [place] [address] Josy Davila DO Pain in left testicle (Primary Dx); S/P TURP; Urinary frequency; Dysuria; Pain in both testicles 09/01/2024 10:31 AM SERIALS LIBRARIAN - 09/01/2024 11:59 PM SERIALS LIBRARIAN Hospital Encounter [facility] OP DRAW STATION [address] [place] [address] Nataliia Cooper MD Discharge Disposition: Home or Self Care 09/01/2024 Travel 09/01/2024 8:45 AM SERIALS LIBRARIAN - 09/01/2024 10:30 AM SERIALS LIBRARIAN Hospital Encounter [facility] [address] [place] [address] Nataliia Cooper MD Discharge Disposition: Home or Self Care 09/01/2024 9:30 AM SERIALS LIBRARIAN Office Visit [facility] - Nephrology [address] [place] [phone] Nataliia Cooper MD Stage 3 chronic kidney disease, unspecified whether stage 3a or 3b CKD (HCC) (Primary Dx) 08/26/2024 Travel 08/26/2024 9:10 AM SERIALS LIBRARIAN Office Visit 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 - General Dermatology [address] [place] [phone] Robb Howell MD Melanocytic nevi of trunk (Primary Dx); [place] angioma; Seborrheic keratoses; Lentigines; Actinic keratosis; History of squamous cell carcinoma of skin; Neoplasm of uncertain behavior of skin; 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 07/19/2024 Travel 07/19/2024 8:20 AM SERIALS LIBRARIAN Office Visit [facility] - Cardiology [address] [facility], [address] [place] [phone] Daily Bravo MD SSS (sick sinus syndrome) (HCC) (Primary Dx); Hypertriglyceridemia from Last 3 Months Allergies Active Allergy [...] 1 MG tablet Take by mouth DAILY. 07/20/2017 Active atorvastatin (LIPITOR) 80 MG tablet Take 1 (one) tablet by mouth once daily 05/26/2017 Active vitamin D, ergocalciferol, (DRISDOL) 1.25 MG (26543 UT) capsule Take 1 (one) capsule by mouth 06/27/2020 Active clopidogrel (PLAVIX) 75 MG tablet Take 1 (one) tablet by mouth once daily Active ketoconazole (NIZORAL) 2 % cream 02/18/2021 Active Blood Glucose Monitoring Suppl (ACCU-CHEK MATA [...] 1 (one) tablet by mouth once daily 10/07/2021 Active ONETOUCH ULTRA test strip Use 3 times daily 200 strip 4 11/19/2021 Active ammonium lactate (LAC-HYDRIN) 12 % lotion 12/07/2020 Active famotidine (Pepcid) 20 MG tablet Take 1 (one) tablet by mouth 2 times daily 08/25/2022 Active hydroxyurea (Hydrea) 500 MG capsule Take 1 (one) capsule by mouth once daily 08/22/2022 Active levETIRAcetam (Keppra) 250 MG tablet Take 1 (one) tablet by mouth 2 times daily Active lisinopril (Prinivil; Zestril) 20 MG tablet Take 1 (one) tablet by mouth once daily 12/02/2022 Active cyanocobalamin (Vitamin B-12) 1000 MCG tablet Take 1 (one) tablet by mouth once daily 180 tablet 1 12/30/2022 Active ONETOUCH DELICA PLUS 30G FINE LANCETSIndications :Type 2 diabetes mellitus with other circulatory complication, with long-term current use of insulin (HCC) Inject 1 Each subcutaneously 3 times daily 200 Each 5 01/08/2023 Active Continuous Blood Gluc Mill Tender Second Operator (Dexcom G7 Mill Tender Second Operator) DEVIIndications:Ty pe 2 diabetes mellitus without complication, unspecified whether chcf insulin use (HCC) Use 1 kit as directed 1 Each 01/29/2023 Active albuterol HFA (ProAir HFA) 108 (90 Base) MCG/ACT inhaler Inhale 2 (two) puffs by mouth every 4 hours as needed 8.5 g 5 06/18/2023 Active Spacer/Aero-Holdin g Chambers (AeroChamber) Inhale by mouth as directed 1 Each 5 06/18/2023 Active HYDROcodone-acetam inophen ([place]) 10-325 MG tablet Take 1 (one) tablet by mouth every 6 hours as needed pain 09/04/2023 Active insulin glargine (Lantus/Semglee) 100 units/mL pen Inject 36 (thirty six) Units subcutaneously at bedtime 15 mL 11 10/05/2023 Active insulin lispro (HumaLOG KwikPen) 100 UNIT/ML pen Inject 12 (twelve) Units to 18 (eighteen) Units subcutaneously 3 times daily before meals 12 with small, 15u with regular meal, 18u with heavy carbs meal, daily max 50 untits 15 mL 11 10/05/2023 Active insulin pen needle (Novofine 31) 31G X 5 MM needleIndications: Type 2 diabetes mellitus with other circulatory complication, with long-term current use of insulin (HCC) 1 (one) Each 4 times daily 200 Each 10/05/2023 Active Continuous Blood Gluc Sensor (Dexcom G7 Sensor) MISCIndications:Ty pe 2 diabetes mellitus without complication, unspecified whether chcf insulin use (HCC) Use 1 Each every 10 days 3 Each 10/05/2023 Active dulaglutide (Trulicity) 3 MG/0.5ML injection Inject 3 (three) mg subcutaneously every 7 days 3 mL 11 10/05/2023 Active empagliflozin (Jardiance) 10 MG tablet Take 1 (one) tablet by mouth once daily 30 tablet 11 10/05/2023 Active evolocumab (Repatha) 140 MG/ML prefilled syringe Inject 140 (one hundred forty) mg subcutaneously every 14 days 6 mL 4 03/16/2024 Active buPROPion SR 12hr (Zyban) 150 MG tabletIndications: Nicotine dependence, cigarettes, uncomplicated Take 1 (one) tablet by mouth 2 times daily 60 tablet 5 06/16/2024 Active Vascepa 1 g capsuleIndications :Hypertriglyceride polo Take 1 (one) capsule by mouth 2 times daily with morning and evening meal 180 capsule 4 07/19/2024 Active oxyBUTYnin CR 24hr (Ditropan XL) 15 MG tablet Take 1 (one) tablet by mouth once daily 90 tablet 3 09/08/2024 Active sildenafil (Viagra) 100 MG tabletIndications: Erectile Dysfunction Take 1 (one) tablet by mouth once daily as needed (sex) Reasons: Erectile Dysfunction 30 tablet 09/08/2024 Active tamsulosin (Flomax) 0.4 MG capsuleIndications :S/P TURP,Urinary frequency Take 1 (one) capsule by mouth once daily 90 capsule 4 09/08/2024 Active amitriptyline (Elavil) 100 MG tablet Take 1 (one) tablet by mouth once daily 90 tablet 3 09/08/2024 6 Active gabapentin (Neurontin) 600 MG tabletIndications: Neuropathy TAKE 1.5 TABLETS BY MOUTH IN THE MORNING AND AT NOON AND TAKE 2 TABLETS EVERY EVENING 150 tablet 4 09/13/2024 Active Active Problems Problem Noted Date Diagnosed Date Actinic keratosis 01/29/2024 History of nonmelanoma skin cancer 01/29/2024 Neuropathy 01/13/2024 Tobacco use disorder 07/03/2023 Sleep apnea 07/03/2023 Hypercalcemia 01/29/2023 Degeneration of lumbar intervertebral disc 12/0207/16/2023 Hypertriglyceridemia 10/07/2021 Assessment & Plan (10/07/2021 12:23 PM SERIALS LIBRARIAN): Triglycerides remain elevated in the setting of uncontrolled DM. Pt has follow up with PCP later this week and Endocrinology in November. Start Vascepa 1 tab po BID. Mixed hyperlipidemia 10/07/2021 Assessment & Plan (10/07/2021 12:24 PM SERIALS LIBRARIAN): LDL 28, HDL 29. Continue Repatha and Lipitor 80mg daily. FLP prior to follow up in 3 months. HTN (hypertension) 10/07/2021 Assessment & Plan (10/07/2021 12:27 PM SERIALS LIBRARIAN): SBP uncontrolled in clinic today. Did not take his medications prior to this apportionment. Continue lisinopril 20mg daily. SBP on 09/13 149/79. Neoplasm of uncertain behavior of skin 2 Epidermal inclusion cyst 09/27/2021 Solar lentiginosis 09/27/2021 Melanocytic nevi of trunk 09/27/2021 Lipoma of torso 09/27/2021 Cardiac pacemaker in situ 07/04/2021 Assessment & Plan (10/07/2021 12:39 PM SERIALS LIBRARIAN): Medtronic PPM, functioning well. See device report from today. Transferred care to our clinic, remotes scheduled. Anemia 03/24/2019 07/16/2023 Myeloproliferative disease 08/26/2018 PAD (peripheral artery disease) 06/02/2018 Occlusion and stenosis of right carotid artery 1 09/23/2016 Immunizations Name Administration Dates Next Due COVModaMi 12+YR 30MCG/0.3mL 05/13/2023 FLU, HISTORIC VACCINE 05/06/2023 INFLUENZA VACCINE 06/02/2022,05/17/2019,04/29/20 18 INFLUENZA VACCINE, QUADR. (F LUZONE; FLULAVAL; FLUARIX; AFLURIA QUADRIVALENT; 6MO+), 0.5 ML (IIV4) 05/17/2021 PNEUMOCOCCAL PCV20 CONJ VAC IM 06/17/2023 Social History Tobacco Use Types Packs/Day Years Used Date Smoking Tobacco: Every Day Cigarettes 1 51.2 Started: 1973 Smokeless Tobacco: Never Tobacco Cessation:Ready to Q uit: Not Asked; Counseling Given: Not Answered Comments:06/25 1/ ppd Alcohol Use Standard Drinks/Week Comments Not [...] Comments Blood Pressure 164/83 09/08/2024 7:55 AM SERIALS LIBRARIAN Pulse 94 09/08/2024 7:55 AM SERIALS LIBRARIAN Temperature 36.7 C (98 F) 09/08/2024 7:55 AM SERIALS LIBRARIAN Respiratory Rate 17 06/16/2024 1:59 PM SERIALS LIBRARIAN Oxygen Saturation 95% 09/08/2024 7:55 AM SERIALS LIBRARIAN Inhaled Oxygen Concentration - - Weight 103.1 kg (227 lb 6.4 oz) 09/08/2024 7:55 AM SERIALS LIBRARIAN Height 175.3 cm (5' 9 ) 09/08/2024 7:55 AM SERIALS LIBRARIAN Body Mass Index 33.58 09/08/2024 7:55 AM SERIALS LIBRARIAN Plan of Treatment Upcoming Encounters Date Type Department Care Team (Late st Contact Info) Description 10/18/2024 1:00 AM CDT Clinical Support [facility] - Cardiology [facility], [address] [phone] 10/25/2024 9:00 AM CDT Office Visit [facility] - Cardiology [facility], [address] [phone] Daily Bravo MD [facility] [address] [address] 11/08/2024 3:40 PM CDT Office Visit [facility] - Endocrinology [address] [place] [address], [place] [address] Garry Tracey MD [address] [place] [address] [address] [place] [address] 01/17/2025 1:10 AM CDT Clinical Support [facility] - Cardiology [address] [facility] [address] [place] [address] 02/23/2025 4:00 PM CDT Office Visit [facility] - Pulmonology [address] [place] [phone] Becca Ford MD [address] [place] [address] [address] [place] [address] 02/24/2025 9:10 AM CDT Office Visit [facility] - Dermatology [address] [place] [phone] Robb Howell MD [address] [place] [address] [address] [place] [address] 03/02/2025 9:00 AM CDT Office Visit [facility] - Nephrology [address] [place] [address], [place] [address] Nataliia Cooper MD [address] [place] [address] [address] [place] [address] 04/04/2025 9:00 AM CDT Office Visit [facility] - Neurology [address] [place] [address], [place] [address] Meredith Weiss MD [address] [place] [address] [address] [place] [phone] 04/18/2025 1:10 AM CDT Clinical Support [facility] - Cardiology [address], [facility] [address] [place] [phone] 07/18/2025 1:10 AM SERIALS LIBRARIAN Clinical Support [facility] - Cardiology [address] [facility], [place] [phone] [place] [address] Goals Goal Patient Goal Type Associated Problems Recent Progress Patient-Stated? Author Medication Management General On track( 025 10:03 AM SERIALS LIBRARIAN) Ketty Candelario, MAIN Note: Expected end date: on going Interventions: Take all medications as prescribed Let your doctor know right away about any changes in your medications Make sure to request a refill of your medication at least one week prior to your last dose Procedures Procedure Name Priority Date/Time Associated Diagnosis Comments US SOFT TISSUE HEAD NECK Routine 10/12/2024 9:14 AM CDT Hypercalcemia PTH RELATED PEPTIDE Routine 10/12/2024 9 :10 AM CDT Hypercalcemia PROTEIN ELECTROPHORESIS BLOOD Routine 10/12/2024 9:10 AM CDT Hypercalcemia URINE MICROSCOPIC ONLY REFLEX TO CULTURE Routine 09/01/2024 11:37 AM SERIALS LIBRARIAN Stage 3 chronic kidney disease, unspecified whether stage 3a or 3b CKD (HCC) MICROALB/CREAT RATIO URINE RANDOM PANEL Routine 09/01/2024 11:37 AM SERIALS LIBRARIAN Stage 3 chronic kidney disease, unspecified whether stage 3a or 3b CKD (HCC) URINALYSIS REFLEX MICROSCOPIC REFLEX CULTURE Routine 09/01/2024 11:37 AM SERIALS LIBRARIAN Stage 3 chronic kidney disease, unspecified whether stage 3a or 3b CKD (HCC) VITAMIN D 25-HYDROXY Routine 09/01/2024 11:07 AM SERIALS LIBRARIAN Stage 3 chronic kidney disease, unspecified whether stage 3a or 3b CKD (HCC) PTH INTACT W/O CALCIUM Routine 11:07 AM SERIALS LIBRARIAN Stage 3 chronic kidney disease, unspecified whether stage 3a or 3b CKD (HCC) HEMOGLOBIN A1C Routine 09/01/2024 11:07 AM SERIALS LIBRARIAN Stage 3 chronic kidney disease, unspecified whether stage 3a or 3b CKD (HCC) URIC ACID BLOOD Routine 09/01/2024 11:07 AM SERIALS LIBRARIAN Stage 3 chronic kidney disease, unspecified whether stage 3a or 3b CKD (HCC) RENAL FUNCTION PANEL Routine 09/01/2024 11:07 AM SERIALS LIBRARIAN Stage 3 chronic kidney disease, unspecified whether stage 3a or 3b CKD (HCC) CBC W AUTO DIFFERENTIAL Routine 09/01/19 11:07 AM SERIALS LIBRARIAN Stage 3 chronic kidney disease, unspecified whether stage 3a or 3b CKD (HCC) US RETROPERITONEAL COMPLETE Routine 09/01/2024 9:37 AM SERIALS LIBRARIAN Stage 3 chronic kidney disease, unspecified whether stage 3a or 3b CKD (HCC) [place] DESTR MALIG TRUNK,EXTREM 0.6-1 CM Routine 08/26/2024 9:26 AM SERIALS LIBRARIAN 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 [place] DESTR MALIG TRUNK,EXTREM 0.6-1 CM Routine 08/17/2024 12:25 PM SERIALS LIBRARIAN 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 [place] DESTROY PREMALIG LESION, 1ST LESION Routine 08/17/2024 12:25 PM SERIALS LIBRARIAN Actinic keratosis [place] TANGNTL BX SKIN SINGLE LES Routine 08/17/2024 12:24 PM SERIALS LIBRARIAN Neoplasm of uncertain behavior of skin DERMATOPATHOLOGY Routine 08/17/2024 3:33 AM SERIALS LIBRARIAN Neoplasm of uncertain behavior of skin CARDIAC PROCEDURE ORDER 07/26/2024 [place] PM DEVICE PROGR EVAL DUAL Routine 07/19/2024 8:47 AM SERIALS LIBRARIAN SSS (sick sinus syndrome) (HCC) EKG 12-LEAD Routine 07/19/2024 8:11 AM SERIALS LIBRARIAN SSS (sick sinus syndrome) (HCC) CARDIAC PROCEDURE ORDER 07/19/2024 CT LUNG SCREEN LOW DOSE Routine 06/14/20 1:47 PM SERIALS LIBRARIAN Nicotine dependence, cigarettes, uncomplicated from Last 3 Months or Most Recently Relevant to Health Maintenance Results * US Soft Tissue Head Neck (10/12/2024 9:14 AM CDT) Anatomical Region Laterality Modality Head Ultrasound 10/12/2024 10:1 0 AM CDT Impressions 10/12/2024 12:20 PM CDT IMPRESSION: 1.Left inferior thyroid nodule measuring up to 2.3 cm, TR 5. FNA is recommended. 2.Additional thyroid nodules in the left and right thyroid lobes do not require imaging follow-up. 3.There is a hypoechoic mass with calcification in the left inferior neck, measuring up to 3.7 cm, that is posterior to the clavicle. This is indeterminate. Report drafted by Benja Snell M.D. (resident) I, Teddy Vazquez MD have personally reviewed and interpreted this examination/study. > Interpreting Provider: Teddy Vazquez MD on 10/12/2024 12:20 PM Narrative 10/12/2024 12:20 PM CDT EXAMINATION: Thyroid sonogram HISTORY: E83.52: Hypercalcemia COMPARISON: No comparison images are available in the PACS system at the time of this dictation. FINDINGS: Right thyroid lobe: 5.8 x 2.9 x 2.4 cm Left thyroid lobe: 4.2 x 2.8 x 2.5 cm Isthmus: 0.8 cm NODULE 1: Right lobe in the middle, measuring 1.0 x 2.7 x 0.8 cm Composition: Spongiform (0 points) Echogenicity: Hypoechoic (2 points) Shape: Wider than tall (0 points) Margin: Ill-defined (0 points) Echogenic foci: None. The ACR TI-RADS score is TR2. no follow-up required NODULE 2: Left lobe inferior measuring 2.3 x 1.5 x 1.2 cm Composition: Solid or almost completely solid (2 points) Echogenicity: Hypoechoic (2 points) Shape: Taller than wide (3 points) Margin: Ill-defined (0 points) Echogenic foci: None. The ACR TI-RADS score is TR5. FNA recommended A calcified nodule is also noted in the left lobe. Bilateral thyroid lobes are mildly heterogenous in echotexture. The isthmus is not thickened. Vascularity of the thyroid is normal. There is a hypoechoic mass in the left inferior neck, measuring 3.7 x 3.2 x 2.9 cm, that is posterior to the clavicle, hypoechoic with internal calcifications. Procedure Note Teddy Vazquez MD - 10/12/2024 EXAMINATION: Thyroid sonogram HISTORY: E83.52: Hypercalcemia COMPARISON: No comparison images are available in the PACS system at the time of this dictation. FINDINGS: Right thyroid lobe: 5.8 x 2.9 x 2.4 cm Left thyroid lobe: 4.2 x 2.8 x 2.5 cm Isthmus: 0.8 cm NODULE 1: Right lobe in the middle, measuring 1.0 x 2.7 x 0.8 cm Composition: Spongiform (0 points) Echogenicity: Hypoechoic (2 points) Shape: Wider than tall (0 points) Margin: Ill-defined (0 points) Echogenic foci: None. The ACR TI-RADS score is TR2. no follow-up required NODULE 2: Left lobe inferior measuring 2.3 x 1.5 x 1.2 cm Composition: Solid or almost completely solid (2 points) Echogenicity: Hypoechoic (2 points) Shape: Taller than wide (3 points) Margin: Ill-defined (0 points) Echogenic foci: None. The ACR TI-RADS score is TR5. FNA recommended A calcified nodule is also noted in the left lobe. Bilateral thyroid lobes are mildly heterogenous in echotexture. Theisthmus is not thickened. Vascularity of the thyroid is normal. There is a hypoechoic mass in the left inferior neck, measuring 3.7 x 3.2x 2.9 cm, that is posterior to the clavicle, hypoechoic with internal calcifications. IMPRESSION: 1.Left inferior thyroid nodule measuring up to 2.3 cm, TR 5. FNA is recommended. 2.Additional thyroid nodules in the left and right thyroid lobes do not require imaging follow-up. 3.There is a hypoechoic mass with calcification in the left inferiorneck, measuring up to 3.7 cm, that is posterior to the clavicle. This is indeterminate. Report drafted by Benja Snell M.D. (resident) I, Teddy Vazquez MD have personally reviewed and interpreted this examination/study. > Interpreting Provider: Teddy Vazquez MD on 2:20 PM Nataliia Cooper MD US ORDERABLES * (ABNORMAL) PTH RELATED PEPTIDE (10/12/2024 9:10 AM CDT) PTH Related Peptide 2.8(H) 0.0 - 2.3 pmol/L 10/15/2024 6:47 PM CDT [facility] ([facility]) Comment: INTERPRETIVE INFORMATION: Parathyroid Hormone-Related Peptide This test was developed and its performance characteristics determined by [facility]. It has not been cleared or approved by the [place] Food and Drug Administration. This test was performed in a CLIA certified laboratory and is intended for clinical purposes. Performed By: [facility] [address] [place] [address] Curtain Mender: Reagan Nelson MD, PhD CLIA Number: [id number] Blood BLOOD SPECIMEN / Unknown Lab Venipuncture / Unknown 10/12/2024 9:10 AM CDT 10/12/2024 9:28 AM CDT Nataliia Cooper MD LAB - CHEMISTRY SERENA PAGE [facility] ([facility]) [address] [place] [address], [facility] * PROTEIN ELECTROPHORESIS BLOOD (10/12/2024 9:10 AM CDT) Interpretation Serum PE Normal Pattern Normal Pattern 10/13/2024 2:35 PM CDT [facility] Comment: Serum capillary electrophoresis shows characteristic bands corresponding to albumin, alpha and beta globulins and polyclonal immunoglobulins. No monoclonal immunoglobulin detected. Non-secretory myeloma (NSM) and light chain only myeloma cannot be excluded based on this result. Recommend serum free light chain measurements for complete evaluation of plasma cell disorders. Holly Montoya PhD, [facility] Clinical Print Project Manager health services director *The electrophoresis pattern and the interpretation have been reviewed and verified by the teaching physician. Protein Total 6.8 6.0 - 8.3 g/dL 10/13/2024 2:35 PM CDT [facility] Albumin 4.0 3.3 - 5.6 g/dL 10/13/2024 2:35 PM CDT [facility] Alpha-1 Globulins 0.3 0.2 - 0.4 g/dL 10/13/2024 2:35 PM CDT [facility] Alpha-2 Globulins 0.8 0.5 - 1.0 g/dL 10/13/2024 2:35 PM CDT [facility] Beta Globulins 0.9 0.6 - 1.1 g/dL 10/13/2024 2:35 PM T [facility] Gamma Globulins 0.8 0.6 - 1.6 g/dL 10/13/2024 2:35 PM T [facility] Blood BLOOD SPECIMEN / Unknown Lab Venipuncture / Unknown 10/12/2024 9:10 AM CDT 10/12/2024 9:21 AM CDT Nataliia Cooper MD LAB - CHEMISTRY SERENA PAGE [facility] [address] [place] [id number], [facility] [phone] * (ABNORMAL) URINE MICROSCOPIC ONLY REFLEX TO CULTURE (09/01/2024 11:37 AM SERIALS LIBRARIAN) Reflex Status Culture not indicated 09/01/2024 12:36 PM [facility] WBC UA 0-5 None Seen, 0-5 /HPF 09/01/2024 12:36 PM [facility] Squamous Epithelial Cells UA 0-2 None Seen, 0-2, 3-5 /HPF 09/01/2024 12:36 PM [facility] Mucus UA 1+ /LPF 09/01/2024 12:36 PM [facility] Hyaline Casts UA 3-5(A) None Seen, 0-2 /LPF 09/01/2024 12:36 PM [facility] Urine URINE SPECIMEN OBTAINED BY CLEAN CATCH PROCEDURE / Unknown Collection / Unknown 09/01/2024 11:37 AM SERIALS LIBRARIAN 09/01/2024 12:05 PM SERIALS LIBRARIAN [facility] - 09/01/2024 12:36 PM SERIALS LIBRARIAN Nataliia Cooper MD LAB - URINALYSIS ORD ERABLES [facility] [address] [place] [phone], [facility] [phone] * (ABNORMAL) URINALYSIS REFLEX MICROSCOPIC REFLEX CULTURE (09/01/2024 11:37 AM SERIALS LIBRARIAN) Color UA Yellow Straw, Yellow 09/01/2024 12:13 PM [facility] Clarity UA Slt Cloudy(A) Clear 09/01/2024 12:13 PM [facility] Specific [place] UA 1.026 1.005 - 1.030 09/01/2024 12:13 PM [facility] pH UA 5.0 5.0 - 8.0 pH 09/01/2024 12:13 PM [facility] Protein UA 2+(A) Negative 09/01/2024 12:13 PM [facility] Glucose UA 3+(A) Negative 09/01/2024 12:13 PM [facility] Ketone UA Negative Negative 09/01/2024 12:13 PM [facility] Bilirubin UA Negative Negative 09/01/2024 12:13 PM [facility] Blood UA Negative Negative 09/01/2024 12:13 PM [facility] Nitrite UA Negative Negative 09/01/2024 12:13 PM [facility] Leukocyte Esterase Negative Negative 09/01/2024 12:13 PM [facility] Urobilinogen UA Negative Negative mg/dL 09/01/2024 12:13 PM [facility] [facility] Urine URINE SPECIMEN OBTAINED BY CLEAN CATCH PROCEDURE / Unknown Collection / Unknown 09/01/2024 11:37 AM SERIALS LIBRARIAN 09/01/2024 12:05 PM SERIALS LIBRARIAN Narrative [facility] - 09/01/2024 12:13 PM SERIALS LIBRARIAN Nataliia Cooper MD LAB - URINALYSIS ORD ERABLES Performing Organization Address [facility]/ZIP Co de Phone Number [address] [address], [facility] [phone] * (ABNORMAL) MICROALB/CREAT RATIO URINE RANDOM PANEL (09/01/2024 11:37 AM SERIALS LIBRARIAN) Albumin Random Urine 755.4 Not Established ug/mL 09/01/2024 12:59 PM [facility] Comment:Result obtained by julio barrett. Creatinine Urine 161.04 Not Established mg/dL 09/01/2024 12:59 PM [facility] Urine Albumin/Creati nine Ratio 469(H) <30 mg/g 09/01/2024 12:59 PM [facility] Urine URINE SPECIMEN OBTAINED BY CLEAN CATCH PROCEDURE / Unknown Collection / Unknown 09/01/2024 11:37 AM SERIALS LIBRARIAN 09/01/2024 12:10 PM SERIALS LIBRARIAN Nataliia Cooper MD LAB - URINE CHEMISTR Y ORDERABLES Performing Organization Address [facility]/ZIP Co de Phone Number [address] [address], [place] [phone] * (ABNORMAL) PTH INTACT W/O CALCIUM (09/01/2024 11:07 AM SERIALS LIBRARIAN) PTH Intact 203.7(H) 8.0 - 77.0 pg/mL 09/01/2024 12:15 PM [facility] Blood BLOOD SPECIMEN / Unknown Lab Venipuncture / Unknown 09/01/2024 11:07 AM SERIALS LIBRARIAN 09/01/2024 11:42 AM SERIALS LIBRARIAN Nataliia Cooper MD LAB - CHEMISTRY SERENA PAGE Performing Organization Address City/[facility]/ZIP Co de Phone Number [address] [address], [facility] [phone] * (ABNORMAL) URIC ACID BLOOD (09/01/2024 11:07 AM SERIALS LIBRARIAN) Uric Acid 7.3(H) 3.5 - 7.2 mg/dL 09/01/2024 12:14 PM [facility] Blood BLOOD SPECIMEN / Unknown Lab Venipuncture / Unknown 09/01/2024 11:07 AM SERIALS LIBRARIAN 09/01/2024 11:42 AM SERIALS LIBRARIAN Nataliia Cooper MD LAB - CHEMISTRY SERENA PAGE Performing Organization Address [facility] Co de Phone Number [address] [address], [facility] [phone] * (ABNORMAL) HEMOGLOBIN A1C (09/01/2024 11:07 AM SERIALS LIBRARIAN) Hemoglobin A1c 7.7(H) <=5.6 % 09/01/2024 1:10 PM [facility] Estimated Average Glucose 174 mg/dL 09/01/2024 1:10 PM [facility] Comment: HbA1c Interpretation: Normal : < 5.7% Pre-diabetes: 5.7-6.4% Diabetes: Equal to or greater than 6.5% Test results diagnostic of diabetes should be repeated for confirmation. Treatment target values recommended by ADA and other clinical organizations should be used to evaluate metabolic control in patients. Reference: [place] Diabetes Association, Standards of Care in Diabetes -2020 In patients 70 years and older consider HbA1c target range of 7.0-7.5% (Reference: Vickey Moser et al. JAMDA. 2012) The Sebia assay for the measurement of HbA1c is a National Glycohemoglobin Standardization Program (NGSP) certified method. Blood BLOOD SPECIMEN / Unknown Lab Venipuncture / Unknown 09/01/2024 11:07 AM SERIALS LIBRARIAN 09/01/2024 11:42 AM SERIALS LIBRARIAN Nataliia Cooper MD LAB - CHEMISTRY SERENA PAGE [facility] [address] [place] [address], [facility] [phone] * VITAMIN D 25-HYDROXY (09/01/2024 11:07 AM SERIALS LIBRARIAN) Vitamin D, 25 Hydroxy 43.2 30.0 - 80.0 ng/mL 09/01/2024 12:32 PM SERIALS LIBRARIAN [facility] Comment: The recommendations for 25-Hydroxy Vitamin [...] Lab Venipuncture / Unknown 09/01/2024 11:07 AM SERIALS LIBRARIAN 09/01/2024 11:42 AM SERIALS LIBRARIAN Nataliia Cooper MD LAB - CHEMISTRY SERENA PAGE Performing Organization Address City/[facility]/ZIP Co de Phone Number [address] [address], [facility] [phone] * (ABNORMAL) CBC WITH DIFFERENTIAL (09/01/2024 11:07 AM SERIALS LIBRARIAN) WBC 11.8(H) 4.0 - 10.7 x10E9/L 09/01/2024 11:56 AM [facility] RBC Count 4.20(L) 4.30 - 5.80 x10E12/L 09/01/2024 11:56 AM [facility] Hemoglobin 14.7 13.3 - 17.5 g/dL 09/01/2024 11:56 AM [facility] Hematocrit 44.0 38.7 - 51.1 % 09/01/2024 11:56 AM [facility] MCV 104.8(H) 80.0 - 98.0 fL 09/01/2024 11:56 AM [facility] MCH 35.0(H) 26.7 - 33.6 pg 09/01/2024 11:56 AM [facility] MCHC 33.4 31.7 - 36.3 g/dL 09/01/2024 11:56 AM [facility] RDW-CV 14.6 11.3 - 14.8 % 09/01/2024 11:56 AM [facility] Platelet Count 285 150 - 420 x10E9/L 09/01/2024 11:56 AM [facility] MPV 10.3 7.8 - 11.4 fL 09/01/2024 11:56 AM [facility] Neutrophil % 49.1 41.0 - 74.0 % 09/01/2024 11:56 AM [facility] Lymphocyte % 38.5 17.0 - 47.0 % 09/01/2024 11:56 AM [facility] Monocyte % 7.1 3.0 - 11.0 % 09/01/2024 11:56 AM [facility] Eosinophil % 4.0 0.0 - 7.0 % 09/01/2024 11:56 AM [facility] Basophil % 0.8 0.0 - 1.6 % 09/01/2024 11:56 AM [facility] Immature Granulocytes % 0.5 0.0 - 1.0 % 09/01/2024 11:56 AM [facility] Neutrophil Absolute 5.82 1.60 - 7.50 x10E9/L 09/01/2024 11:56 AM [facility] Lymphocyte Absolute 4.56(H) 1.00 - 4.40 x10E9/L 09/01/2024 11:56 AM [facility] Monocyte Absolute 0.84 0.15 - 1.00 x10E9/L 09/01/2024 11:56 AM [facility] Eosinophil Absolute 0.47 0.00 - 0.60 x10E9/L 09/01/2024 11:56 AM [facility] Basophil Absolute 0.09 0.00 - 0.13 x10E9/L 09/01/2024 11:56 AM [facility] Blood BLOOD SPECIMEN / Unknown Lab Venipuncture / Unknown 09/01/2024 11:07 AM SERIALS LIBRARIAN 09/01/2024 11:42 AM SERIALS LIBRARIAN Nataliia Cooper MD LAB - HEMATOLOGY ORD ERABLES Performing Organization Address [facility] Co de Phone Number [facility] [address] [place] [address] [phone] * (ABNORMAL) RENAL FUNCTION PANEL (09/01/2024 11:07 AM SERIALS LIBRARIAN) BUN 27(H) 7 - 26 mg/dL 09/01/2024 12:14 PM [facility] Creatinine 2.02(H) 0.71 - 1.16 mg/dL 09/01/2024 12:14 PM [facility] Sodium 141 136 - 145 mmol/L 09/01/2024 12:14 PM [facility] Potassium 4.6(H) 3.5 - 4.5 mmol/L 09/01/2024 12:14 PM [facility] Chloride 107 98 - 107 mmol/L 09/01/2024 12:14 PM [facility] CO2 27 22 - 29 mmol/L 09/01/2024 12:14 PM [facility] Glucose 154(H) 70 - 99 mg/dL 09/01/2024 12:14 PM [facility] Albumin 3.9 3.4 - 5.0 g/dL 09/01/2024 12:14 PM [facility] Calcium 11.3(H) 8.4 - 10.2 mg/dL 09/01/2024 12:14 PM [facility] Phosphorus 2.9 2.8 - 5.1 mg/dL 09/01/2024 12:14 PM [facility] Anion Gap 7 6 - 16 09/01/2024 12:14 PM [facility] BUN/Creatinine Ratio 13 7 - 23 09/01/2024 12:14 PM [facility] Osmolality Calculated 300(H) 275 - 295 mOsm/kg 09/01/2024 12:14 PM SERIALS LIBRARIAN [facility] eGFR by CKD-EPI 36(L) >=90 mL/min/1.7 3 m2 09/01/2024 12:14 PM SERIALS LIBRARIAN [facility] Blood BLOOD SPECIMEN / Unknown Lab Venipuncture / Unknown 09/01/2024 11:07 AM SERIALS LIBRARIAN 09/01/2024 11:42 AM SERIALS LIBRARIAN Nataliia Cooper MD LAB - CHEMISTRY SERENA PAGE [facility] [address] [place] [address], [facility] [phone] * US Retroperitoneal Complete (09/01/2024 9:37 AM SERIALS LIBRARIAN) Anatomical Region Laterality Modality Abdomen Ultrasound 09/01/2024 9:45 AM SERIALS LIBRARIAN Impressions 09/01/2024 9:50 AM SERIALS LIBRARIAN Impression: 1. Normal-sized kidneys with normal echogenicity. 2. No hydronephrosis or nephrolithiasis. > Interpreting Provider: Denae Grijalva MD on 09/01/2024 9:50 AM Narrative 09/01/2024 9:50 AM SERIALS LIBRARIAN PROCEDURE: US RETROPERITONEAL COMPLETE DATE/TIME OF EXAM: [...] AM Nataliia Cooper MD US ORDERABLES * [place] DESTR MALIG TRUNK,EXTREM 0.6-1 CM (08/26/2024 9:26 AM SERIALS LIBRARIAN) Narrative Robb Howell MD - 08/26/2024 9:26 AM SERIALS LIBRARIAN Amandeep Helton MD 08/26/2024 9:41 AM PROCEDURE: [...] tolerated the procedure well. Amandeep Helton MD [facility] Dermatology Resident Robb Howell MD PROCEDURE/MINOR SURG ICAL ORDERABLES * [place] DESTR MALIG TRUNK,EXTREM 0.6-1 CM (08/17/2024 12:25 PM SERIALS LIBRARIAN) Narrative Robb Howell MD - 08/17/2024 12:25 PM SERIALS LIBRARIAN Guy Gómez MD 08/17/2024 12:26 PM PROCEDURE: [...] Howell MD PROCEDURE/MINOR SURG ICAL ORDERABLES * [place] DESTROY PREMALIG LESION, 1ST LESION (08/17/2024 12:25 PM SERIALS LIBRARIAN) Narrative Robb Howell MD - 08/17/2024 12:25 PM SERIALS LIBRARIAN Guy Gómez MD 08/17/2024 12:25 PM Diagnosis and treatment options discussed. Cryotherapy (Liquid Nitrogen) to 1 lesion for 4-6 seconds. Number of cycles: 1. Wound care reviewed. Robb Howell MD PROCEDURE/MINOR SURG ICAL ORDERABLES * [place] TANGNTL BX SKIN SINGLE LES (08/17/2024 12:24 PM SERIALS LIBRARIAN) Narrative Robb Howell MD - 08/17/2024 12:24 PM SERIALS LIBRARIAN Guy Gómez MD 08/17/2024 12:24 PM Risks, [...] ICAL ORDERABLES * DERMATOPATHOLOGY (08/17/2024 3:33 AM SERIALS LIBRARIAN) Case Report Dermatopathology Report Case: [id number] Authorizing Provider: Robb Howell MD Collected: 08/17/2024 03:33 AM Ordering Location: [facility] - Received: 08/18/2024 11:05 AM General Dermatology Pathologist: Rose Soto MD Specimen: Skin, left forearm 1:26 PM [facility] DERMATOPATHOLOGY LABORATORY Final Diagnosis Specimen A. SKIN, left forearm: SQUAMOUS CELL CARCINOMA IN SITU (PINK'S DISEASE) (D04.62) 1:26 PM [facility] DERMATOPATHOLOGY LABORATORY Clinical History Suspect NMSC 1:26 PM [facility] DERMATOPATHOLOGY LABORATORY Gross Description Specimen A: Received is one formalin filled container labeled with the patient's name and designated left forearm. The specimen consists of a shave biopsy measuring 20l96s9 mm. Jar 0. 1:26 PM [facility] DERMATOPATHOLOGY LABORATORY Microscopic Description Specimen A. SKIN, left forearm: The epidermis shows parakeratosis, full thickness disorderly maturation of keratinocytes, mitoses at different levels, and dyskeratotic cells. 1:26 PM [facility] DERMATOPATHOLOGY LABORATORY Disclaimer An external and [...] purposes. Billing Codes Specimen Charges Stain Charges 16987 1 5 1:26 PM [facility] DERMATOPATHOLOGY LABORATORY Embedded Images 5 1:26 PM SERIALS LIBRARIAN DERMATOPATHOLOGY LABORATORY Pathology/Cytolo gy TISSUE SPECIMEN FROM SKIN / Unknown 08/17/2024 3:33 AM SERIALS LIBRARIAN 08/18/2024 11:05 AM SERIALS LIBRARIAN Robb Howell MD LAB - PATHOLOGY/CYTO LOGY ORDERABLES DERMATOPATHOLOGY LABORATORY [facility] Department of Dermatology [address] [phone] * CARDIAC PROCEDURE ORDER (07/26/2024) Only the most recent of2 resultswithin the time period is included. Narrative 07/26/2024 Ordered by an unspecified provider. Scanned Document CARDIAC SERVICES ORD ERABLES * [place] PM DEVICE PROGR EVAL DUAL (07/19/2024 8:47 AM SERIALS LIBRARIAN) Narrative Daily Bravo MD - 07/19/2024 8:47 AM SERIALS LIBRARIAN Daily Bravo MD 07/19/2024 8:49 AM This is a 64 year old male with a H/O sick sinus syndrome . The patient received a Medtronic Advisa DR dual chamber pacemaker on 09/23/16. The patients device is functioning appropriately according to the dollyman's recommendations with appropriate battery voltage, charge time, shock impedance (s), lead impedance (s) along with pacing and sensing thresholds. The patient will be scheduled for 3 month remote follow-up. Instructed to call with questions or problem. Daily Bravo MD PROCEDURE/MINOR SURG ICAL ORDERABLES * EKG 12-LEAD (07/19/2024 8:11 AM SERIALS LIBRARIAN) Ventricular Rate 71 BPM [facility] Atrial Rate 71 BPM [facility] P-R Interval 244 ms [facility] QRS Duration ms 194 ms [facility] Q-T Interval ms 446 ms [facility] QTC Calculation (Bezet) 484 ms [facility] Calculated R [place] -85 degrees [facility] Calculated T [place] 34 degrees [facility] Interpretation EKG [...] 1:27:54 PM [facility] 07/19/2024 8:11 AM SERIALS LIBRARIAN 07/19/2024 1:27 PM SERIALS LIBRARIAN Daily Bravo MD ECG ORDERABLES ANNIE ACEVEDO * CT LUNG CANCER SCREEN LOW DOSE (06/14/2024 1:47 PM SERIALS LIBRARIAN) Anatomical Region Laterality Modality Chest Computed Tomogra phy 06/14/2024 3:19 PM SERIALS LIBRARIAN Impressions 06/14/2024 8:13 PM SERIALS LIBRARIAN Impression: No pulmonary nodules identified. Lung-RADS category [...] Dictated by Naz Roblero MD, (vice president integrated). IRuel MD have personally reviewed and interpreted this examination/study. > Interpreting Provider: Ruel Whitehead MD on 06/14/2024 8:13 PM Narrative 06/14/2024 8:13 PM SERIALS LIBRARIAN PROCEDURE: CT LUNG SCREEN LOW DOSE DATE/TIME [...] Dictated by Naz Roblero MD, (vice president integrated). I, Ruel Whitehead MD have personally reviewed and interpreted this examination/study. > Interpreting Provider: Ruel Whitehead MD on 06/14/2024 8:13 PM Becca Ford MD CT ORDERABLES from Last 3 Months or Most Recently Relevant to Health Maintenance Care Teams Overhead Door Technician Relationship Specialty Start Date End Date Dina Cloud PA-C [address] [place] [address] PCP - General Physician Operations Business Partner 07/10/20
--- OUTSIDE RECORDS SUMMARY | 2024-10-17 09:50 | XMS_ITS | Encounter Summary ---
Author Organization [facility] Address [address] [place] [address] Phone Care Team Providers Care Asian Studies Professor Name Role Phone Provider, Unknown Primary Care Provider Unavaila Dina Yepez Primary Care Provider [phone] Lefty Sousa MD Unavailable [phone] Encounter Details Date Type Department Care Team (Late st Contact Info) Description 03/08/2020 Telephone [facility] [address] [place] [address] Lefty Sousa MD [address] [address] Social History Tobacco Use Types [...] on file 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 Gender Identity Not on file Sexual Orientation [...] CDT Office Visit [facility] [address] [place] [address] Lefty Sousa MD [address] [place] [address] [id number] documented as of this encounter Visit Diagnoses Not on filedocumented in this encounter Additional Health Concerns Assessment Noted Time PHQ-9 Depression Total Score: 0 11/03/19 8:14 AM CDT documented as of this encounter Care Teams Asian Studies Professor Relationship Specialty Start Date End Date Provider, Unknown UNKNOWN PCP - General Primary Care 07/14/18 05/24/20 Dina Cloud PAC [address] [place] [phone] PCP - General Physician Veterinary Surgery Technologist 05/25/20 Lefty Sousa MD [address] [place] [phone] Consulting Physician Hematology and Oncology 01/03/21 documented as of this encounter
--- OUTSIDE RECORDS SUMMARY | 2024-10-17 09:50 | XMS_ITS | Clinical Summary ---
Author Organization [facility] Address [address] [facility] [place] [address] Care Team Providers Care Metal Reed Tuner Name Role Phone Dina Cloud PA-C Primary Care Provider Source Comments [facility],non-owned Affiliates and Associated Physician Practices is amultiple site organization consisting of ambulatory clinics and hospital sitesin [place], [place], [place] and [place]. This disclosure is being madepursuant to the Care Everywhere program and may not contain all information available regarding this patient. Last updated 18.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) Use 1 kit as directed 1 Each 01/29/2023 Active albuterol HFA (ProAir HFA) 108 (90 Base) MCG/ACT inhaler Inhale 2 (two) puffs by mouth every 4 hours as needed 8.5 g 5 06/18/2023 Active Spacer/Aero-Holdin g Chambers (AeroChamber) Inhale by mouth as directed 1 Each 5 06/18/2023 Active HYDROcodone-acetam inophen (Highland) 10-325 MG tablet Take 1 (one) tablet [...] 2 diabetes mellitus without complication, unspecified whether buttermilk drier operator insulin use (HCC) Use 1 Each every 10 days 3 Each 11 10/05/2023 Active dulaglutide (Trulicity) 3 MG/0.5ML injection [...] once daily 90 tablet 3 09/08/2024 Active gabapentin (Neurontin) 600 MG tabletIndications: Neuropathy [...] 10/07/2021 Assessment & Plan (10/07/2021 12:23 PM FINISH SANDER): Triglycerides remain elevated in the setting of uncontrolled DM. Pt has follow up with PCP later this week and Endocrinology in November. Start Vascepa 1 tab po BID. Mixed hyperlipidemia 10/07/2021 Assessment & Plan (10/07/2021 12:24 PM FINISH SANDER): LDL 28, HDL 29. Continue Repatha and Lipitor 80mg daily. FLP prior to follow up in 3 months. HTN (hypertension) 10/07/2021 Assessment & Plan (10/07/2021 12:27 PM FINISH SANDER): SBP uncontrolled in clinic today. Did not take his medications prior to this apportionment. Continue lisinopril 20mg daily. SBP on 09/13 149/79. Neoplasm of uncertain behavior of skin 2 Epidermal inclusion cyst 09/27/2021 Solar lentiginosis 09/27/2021 Melanocytic nevi of trunk 09/27/2021 Lipoma of torso 09/27/2021 Cardiac pacemaker in situ 07/04/2021 Assessment & Plan (10/07/2021 12:39 PM FINISH SANDER): Medtronic PPM, functioning well. See device report from today. Transferred care to our clinic, remotes scheduled. Anemia 03/24/2019 07/16/2023 Myeloproliferative disease 08/26/2018 PAD (peripheral artery disease) 06/02/2018 Occlusion and stenosis of right carotid artery 1 09/23/2016 Encounters Date Type Department Care Team Description 10/12/2024 8:34 AM CDT - 10/12/2024 11:59 PM CDT Hospital Encounter [facility] OP DRAW ST[facility] [address] [place] [address] Nataliia Cooper MD Discharge Disposition: Home or Self Care 10/12/2024 8:26 AM CDT - 10/12/2024 8:33 AM CDT Hospital Encounter [facility] [address] [place] [address] Nataliia Cooper MD Discharge Disposition: Home or Self Care 10/12/2024 Travel 09/28/2024 Telephone [facility] - Centralized Scheduling [address] [place] [address] Robb Howell MD Question 09/13/2024 Orders Only [facility] - Nephrology [address] [place] [address], [place] [address] Nataliia Cooper MD Hypercalcemia 09/13/2024 Refill [facility] - Neurology [address] [place] [address], [place] [address] Meredith Weiss MD Refill Request 09/08/2024 8:15 AM FINISH SANDER Office Visit [facility] - Urology [address] [facility] [address] [place] [address] Josy Davila M, DO Pain in left testicle (Primary Dx); S/P TURP; Urinary frequency; Dysuria; Pain in both testicles 09/08/2024 Travel 09/01/2024 10:31 AM FINISH SANDER - 09/01/2024 11:59 PM FINISH SANDER Hospital Encounter [facility] OP [facility] [address] [place] [address] Nataliia Cooper MD Discharge Disposition: Home or Self Care 09/01/2024 9:30 AM FINISH SANDER Office Visit [facility] - Nephrology [address] [place] [phone] Nataliia Cooper MD Stage 3 chronic kidney disease, unspecified whether stage 3a or 3b CKD (HCC) (Primary Dx) 09/01/2024 8:45 AM FINISH SANDER - 09/01/2024 10:30 AM FINISH SANDER Hospital Encounter [facility] [address] [place] [address] Nataliia Cooper MD Discharge Disposition: Home or Self Care 09/01/2024 Travel 08/26/2024 9:10 AM FINISH SANDER Office Visit [facility] - Dermatology [address] [place] [phone] Robb Howell MD 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 (Primary Dx) 08/26/2024 Travel 08/17/2024 10:50 AM FINISH SANDER Office Visit [facility] - General Dermatology [address] , [facility] [address] [place] [phone] Robb Howell MD Melanocytic nevi of trunk (Primary Dx); Mansfield angioma; Seborrheic keratoses; Lentigines; Actinic keratosis; History of squamous cell carcinoma of skin; Neoplasm of uncertain behavior of skin; 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 08/17/2024 Travel 07/19/2024 8:20 AM FINISH SANDER Office Visit [facility] - Cardiology [address] [facility], [facility] [address] [place] [address] Daily Bravo MD SSS (sick sinus syndrome) (HCC) (Primary Dx); Hypertriglyceridemia 07/19/2024 Travel from Last 3 Months Immunizations Name Administration Dates Next Due COVID SmartCells 12+YR 30MCG/0.3mL 05/13/2023 FLU, HISTORIC VACCINE 05/06/2023 [...] Not Asked; Counseling Given: Not Answered Comments:06/25 1 ppd Alcohol Use Standard Drinks/Week Comments Not [...] Comments Blood Pressure 164/83 09/08/2024 7:55 AM FINISH SANDER Pulse 94 09/08/2024 7:55 AM FINISH SANDER Temperature 36.7 C (98 F) 09/08/2024 7:55 AM FINISH SANDER Respiratory Rate 17 06/16/2024 1:59 PM FINISH SANDER Oxygen Saturation 95% 09/08/2024 7:55 AM FINISH SANDER Inhaled Oxygen Concentration - - Weight 103.1 kg (227 lb 6.4 oz) 09/08/2024 7:55 AM FINISH SANDER Height 175.3 cm (5' 9 ) 09/08/2024 7:55 AM FINISH SANDER Body Mass Index 33.58 09/08/2024 7:55 AM FINISH SANDER Plan of Treatment Upcoming Encounters Date Type Department Care Team (Late st Contact Info) Description 10/18/2024 1:00 AM CDT Clinical Support [facility] - Cardiology [address] [place] [address], [address] [phone] 10/25/2024 9:00 AM CDT Office Visit [facility] - Cardiology [address] [place] [address], [address] [phone] Daily Bravo MD [address] [place] [address] 11/08/2024 3:40 PM CDT Office Visit [facility] - Endocrinology [address] [place] [phone] Garry Tracey MD [address] [place] [address] [address] [place] [address] 01/17/2025 1:10 AM CDT Clinical Support [facility] - Cardiology [address] [place] [phone] 02/23/2025 4:00 PM CDT Office Visit [facility] - Pulmonology [address] [place] [address], [place] [address] Becca Ford MD [address] [place] [address] 2[address] DIV OF GEN [place] [address] 02/24/2025 9:10 AM CDT Office Visit [facility] - Dermatology [address] [place] [address], [place] [address] Robb Howell MD [address] [place] [address] [address] DEPT [place] [address] 03/02/2025 9:00 AM CDT Office [facility] - Nephrology [address] [place] [address], [place] [address] Nataliia Cooper MD [address] [place] [address] 3[address] [place] [address] 04/04/2025 9:00 AM CDT Office Visit [facility] - Neurology [address] [place] [address], [place] [address] Meredith Weiss MD [address] [place] [address] [address] [place] [phone] 04/18/2025 1:10 AM CDT Clinical Support [facility] - Cardiology [address] [place] [phone] 07/18/2025 1:10 AM FINISH SANDER Clinical Support [facility] - Cardiology [address] [place] [phone] Health Maintenance Due Date Last Done Comments COLOGUARD (AGES 45-75) - COLON CA SCREENING [address] COLONOGRAPHY - COLON CA SCREENING 1961 FIT - COLON CA SCREENING 1960 FLEX SIG - COLON CA SCREENING 1961 HIV SCREENING 01/06/1976 HEPATITIS C SCREENING [...] complete this topic MENINGOCOCCAL (Group B) VACCINE SHARED DECISION-MAKING Aged Out No longer eligible based on patient's age to complete this topic MENINGOCOCCAL GROUPS A/C/Y/W VACCINE Aged Out No longer eligible based on patient's age to complete this topic Goals Goal Patient Goal Type Associated Problems Recent Progress Patient-Stated? Author Medication Management General On track( 025 10:03 AM FINISH SANDER) Ketty Candelario, RN Note: Expected end date: on going Interventions: [...] REFLEX TO CULTURE Routine 09/01/2024 11:37 AM FINISH SANDER Stage 3 chronic kidney disease, unspecified whether stage 3a or 3b CKD (HCC) MICROALB/CREAT RATIO URINE RANDOM PANEL Routine 09/01/2024 11:37 AM FINISH SANDER Stage 3 chronic kidney disease, unspecified whether stage 3a or 3b CKD (HCC) URINALYSIS REFLEX MICROSCOPIC REFLEX CULTURE Routine 09/01/2024 11:37 AM FINISH SANDER Stage 3 chronic kidney disease, unspecified whether stage 3a or 3b CKD (HCC) VITAMIN D 25-HYDROXY Routine 09/01/2024 11:07 AM FINISH SANDER Stage 3 chronic kidney disease, unspecified whether stage 3a or 3b CKD (HCC) PTH INTACT W/O CALCIUM Routine 11:07 AM FINISH SANDER Stage 3 chronic kidney disease, unspecified whether stage 3a or 3b CKD (HCC) HEMOGLOBIN A1C Routine 09/01/2024 11:07 AM FINISH SANDER Stage 3 chronic kidney disease, unspecified whether stage 3a or 3b CKD (HCC) URIC ACID BLOOD Routine 09/01/2024 11:07 AM FINISH SANDER Stage 3 chronic kidney disease, unspecified whether stage 3a or 3b CKD (HCC) RENAL FUNCTION PANEL Routine 09/01/2024 11:07 AM FINISH SANDER Stage 3 chronic kidney disease, unspecified whether stage 3a or 3b CKD (HCC) CBC W AUTO DIFFERENTIAL Routine 09/01/19 11:07 AM FINISH SANDER Stage 3 chronic kidney disease, unspecified whether stage 3a or 3b CKD (HCC) US RETROPERITONEAL COMPLETE Routine 09/01/2024 9:37 AM FINISH SANDER Stage 3 chronic kidney disease, unspecified whether stage 3a or 3b CKD (HCC) OK DESTR MALIG TRUNK,EXTREM 0.6-1 CM Routine 08/26/2024 9:26 AM FINISH SANDER 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 OK DESTR MALIG TRUNK,EXTREM 0.6-1 CM Routine 08/17/2024 12:25 PM FINISH SANDER 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 OK DESTROY PREMALIG LESION, 1ST LESION Routine 08/17/2024 12:25 PM FINISH SANDER Actinic keratosis OK TANGNTL BX SKIN SINGLE LES Routine 08/17/2024 12:24 PM FINISH SANDER Neoplasm of uncertain behavior of skin DERMATOPATHOLOGY Routine 08/17/2024 3:33 AM FINISH SANDER Neoplasm of uncertain behavior of skin CARDIAC PROCEDURE ORDER 07/26/2024 OK PM DEVICE PROGR EVAL DUAL Routine 07/19/2024 8:47 AM FINISH SANDER SSS (sick sinus syndrome) (HCC) EKG 12-LEAD Routine 07/19/2024 8:11 AM FINISH SANDER SSS (sick sinus syndrome) (HCC) CARDIAC PROCEDURE ORDER 07/19/2024 CT LUNG SCREEN LOW DOSE Routine 06/14/20 1:47 PM FINISH SANDER Nicotine dependence, cigarettes, uncomplicated from Last 3 [...] Report drafted by Benja Snell M.D. (resident) ITeddy MD have personally reviewed and interpreted this [...] > Interpreting Provider: Teddy Vazquez MD on 512:20 PM Nataliia Cooper MD ORDERABLES * (ABNORMAL) PTH RELATED PEPTIDE (10/12/2024 9:10 AM CDT) PTH Related Peptide 2.8(H) 0.0 - 2.3 pmol/L 10/15/2024 6:47 PM CDT [facility] ([facility]) Comment: INTERPRETIVE INFORMATION: Parathyroid Hormone-Related Peptide This test was developed and its performance characteristics determined by [facility]. It has not been cleared or approved by the US Food and Drug Administration. This test was performed in a CLIA certified laboratory and is intended for clinical purposes. Performed By: [facility] [address] [place] [id number] Health Technical Writer: Reagan Nelson MD, PhD CLIA Number: [id number] Blood BLOOD SPECIMEN / Unknown Lab Venipuncture / Unknown 10/12/2024 9:10 AM CDT 10/12/2024 9:28 AM CDT Nataliia Cooper MD LAB - CHEMISTRY SERENA PAGE [facility] ([facility]) [address] [place], [place] [phone], [facility] * PROTEIN ELECTROPHORESIS BLOOD (10/12/2024 9:10 AM CDT) Interpretation Serum PE Normal Pattern Normal Pattern 10/13/2024 2:35 PM CDT [facility] Comment: Serum capillary electrophoresis shows characteristic bands corresponding to albumin, alpha and beta globulins and polyclonal immunoglobulins. No monoclonal immunoglobulin detected. Non-secretory myeloma (NSM) and light chain only myeloma cannot be excluded based on this result. Recommend serum free light chain measurements for complete evaluation of plasma cell disorders. Holly Montoya PhD, [facility] Clinical Design Agent molder vacuum *The electrophoresis pattern and the interpretation have been reviewed and verified by the teaching physician. Protein Total 6.8 6.0 - 8.3 g/dL 10/13/2024 2:35 PM CDT [facility] Albumin 4.0 3.3 - 5.6 g/dL 10/13/2024 2:35 PM CDT [facility] Alpha-1 Globulins 0.3 0.2 - 0.4 g/dL 10/13/2024 2:35 PM CDT [facility] Alpha-2 Globulins 0.8 0.5 - 1.0 g/dL 10/13/2024 2:35 PM CDT [facility] Beta Globulins 0.9 0.6 - 1.1 g/dL 10/13/2024 2:35 PM CDT [facility] Gamma Globulins 0.8 0.6 - 1.6 g/dL 10/13/2024 2:35 PM CDT [facility] Blood BLOOD SPECIMEN / Unknown Lab Venipuncture / Unknown 10/12/2024 9:10 AM CDT 10/12/2024 9:21 AM CDT Nataliia Cooper MD LAB - CHEMISTRY ORDE CAMILO Performing Organization Address [facility]/ZIP Co de Phone Number [facility] [address] [place] [address], [facility] [phone] * (ABNORMAL) URINE MICROSCOPIC ONLY REFLEX TO CULTURE (09/01/2024 11:37 AM FINISH SANDER) Reflex Status Culture not indicated 09/01/2024 12:36 PM [facility] WBC UA 0-5 None Seen, 0-5 /HPF 09/01/2024 12:36 PM [facility] Squamous Epithelial Cells UA 0-2 None Seen, 0-2, 3-5 /HPF 09/01/2024 12:36 PM [facility] Mucus UA 1+ /LPF 09/01/2024 12:36 PM [facility] Hyaline Casts UA 3-5(A) None Seen, 0-2 /LPF 09/01/2024 12:36 PM [facility] Urine URINE SPECIMEN OBTAINED BY CLEAN CATCH PROCEDURE / Unknown Collection / Unknown 09/01/2024 11:37 AM FINISH SANDER 09/01/2024 12:05 PM FINISH SANDER [facility] - 09/01/2024 12:36 PM FINISH SANDER Nataliia Cooper MD LAB - URINALYSIS ORD ERABLES Performing Organization Address [facility]/ZIP Co de Phone Number [address] [address], [facility] [phone] * (ABNORMAL) URINALYSIS REFLEX MICROSCOPIC REFLEX CULTURE (09/01/2024 11:37 AM FINISH SANDER) Color UA Yellow Straw, Yellow 09/01/2024 12:13 PM [facility] Clarity UA Slt Cloudy(A) Clear 09/01/2024 12:13 PM [facility] Specific Colbert UA 1.026 1.005 - 1.030 09/01/2024 12:13 PM [facility] pH UA 5.0 5.0 - 8.0 pH 09/01/2024 12:13 PM [facility] Protein UA 2+(A) Negative 09/01/2024 12:13 PM [facility] Glucose UA 3+(A) Negative 09/01/2024 12:13 PM [facility] Ketone UA Negative Negative 09/01/2024 12:13 PM [facility] Bilirubin UA Negative Negative 09/01/2024 12:13 PM [facility] Blood UA Negative Negative 09/01/2024 12:13 PM [facility] Nitrite UA Negative Negative 09/01/2024 12:13 PM [facility] Leukocyte Esterase Negative Negative 09/01/2024 12:13 PM [facility] Urobilinogen UA Negative Negative mg/dL 09/01/2024 12:13 PM [facility] Urine URINE SPECIMEN OBTAINED BY CLEAN CATCH PROCEDURE / Unknown Collection / Unknown 09/01/2024 11:37 AM FINISH SANDER 09/01/2024 12:05 PM FINISH SANDER Narrative [facility] - 09/01/2024 12:13 PM FINISH SANDER Nataliia Cooper MD LAB - URINALYSIS ORD ERABLES Performing Organization Address City/[facility]/ZIP Co de Phone Number [address] [address], [place] [phone] * (ABNORMAL) MICROALB/CREAT RATIO URINE RANDOM PANEL (09/01/2024 11:37 AM FINISH SANDER) Albumin Random Urine 755.4 Not Established ug/mL 09/01/2024 12:59 PM [facility] Comment:Result obtained by julio barrett. Creatinine Urine 161.04 Not Established mg/dL 09/01/2024 12:59 PM [facility] Urine Albumin/Creati nine Ratio 469(H) <30 mg/g 09/01/2024 12:59 PM [facility] Urine URINE SPECIMEN OBTAINED BY CLEAN CATCH PROCEDURE / Unknown Collection / Unknown 09/01/2024 11:37 AM FINISH SANDER 09/01/2024 12:10 PM FINISH SANDER Nataliia Cooper MD LAB - URINE CHEMISTR Y ORDERABLES Performing Organization Address City/[facility]/ZIP Co de Phone Number [address] [address], [place] [phone] * (ABNORMAL) PTH INTACT W/O CALCIUM (09/01/2024 11:07 AM FINISH SANDER) PTH Intact 203.7(H) 8.0 - 77.0 pg/mL 09/01/2024 12:15 PM [facility] Blood BLOOD SPECIMEN / Unknown Lab Venipuncture / Unknown 09/01/2024 11:07 AM FINISH SANDER 09/01/2024 11:42 AM FINISH SANDER Nataliia Cooper MD LAB - CHEMISTRY SERENA PAGE Performing Organization Address [facility]/ZIP Co de Phone Number [address] [address], [facility] [phone] * (ABNORMAL) URIC ACID BLOOD (09/01/2024 11:07 AM FINISH SANDER) Uric Acid 7.3(H) 3.5 - 7.2 mg/dL 09/01/2024 12:14 PM [facility] Blood BLOOD SPECIMEN / Unknown Lab Venipuncture / Unknown 09/01/2024 11:07 AM FINISH SANDER 09/01/2024 11:42 AM FINISH SANDER Nataliia Cooper MD LAB - CHEMISTRY SERENA PAGE Performing Organization Address [facility]/ZIP Co de Phone Number [address] [address], [facility] [phone] * (ABNORMAL) HEMOGLOBIN A1C (09/01/2024 11:07 AM FINISH SANDER) Hemoglobin A1c 7.7(H) <=5.6 % 09/01/2024 1:10 PM [facility] Estimated Average Glucose 174 mg/dL 09/01/2024 1:10 PM [facility] Comment: HbA1c Interpretation: Normal : < 5.7% Pre-diabetes: 5.7-6.4% Diabetes: Equal to or greater than 6.5% Test results diagnostic of diabetes should be repeated for confirmation. Treatment target values recommended by ADA and other clinical organizations should be used to evaluate metabolic control in patients. Reference: [place] [employer], Standards of Care in Diabetes -2020 In patients 70 years and older consider HbA1c target range of 7.0-7.5% (Reference: Vickey Moser et al. CANDEDA. 2012) The Sebia assay for the measurement of HbA1c is a National Glycohemoglobin Standardization Program (NGSP) certified method. Blood BLOOD SPECIMEN / Unknown Lab Venipuncture / Unknown 09/01/2024 11:07 AM FINISH SANDER 09/01/2024 11:42 AM FINISH SANDER Nataliia Cooper MD LAB - CHEMISTRY SERENA PAGE Performing Organization Address [facility]/ZIP Co de Phone Number [address] [address], [facility] [phone] * VITAMIN D 25-HYDROXY (09/01/2024 11:07 AM FINISH SANDER) Vitamin D, 25 Hydroxy 43.2 30.0 - 80.0 ng/mL 09/01/2024 12:32 PM FINISH SANDER [facility] Comment: The recommendations for 25-Hydroxy Vitamin [...] Lab Venipuncture / Unknown 09/01/2024 11:07 AM FINISH SANDER 09/01/2024 11:42 AM FINISH SANDER Nataliia Cooper MD LAB - CHEMISTRY SERENA PAGE Performing Organization Address [facility]/ZIP Co de Phone Number [address] [address], [facility] [phone] * (ABNORMAL) CBC WITH DIFFERENTIAL (09/01/2024 11:07 AM FINISH SANDER) WBC 11.8(H) 4.0 - 10.7 x10E9/L 09/01/2024 11:56 AM [facility] RBC Count 4.20(L) 4.30 - 5.80 x10E12/L 09/01/2024 11:56 AM [facility] Hemoglobin 14.7 13.3 - 17.5 g/dL 09/01/2024 11:56 AM [facility] Hematocrit 44.0 38.7 - 51.1 % 09/01/2024 11:56 AM [facility] MCV 104.8(H) 80.0 - 98.0 fL 09/01/2024 11:56 AM [facility] MCH 35.0(H) 26.7 - 33.6 pg 09/01/2024 11:56 AM [facility] MCHC 33.4 31.7 - 36.3 g/dL 09/01/2024 11:56 AM [facility] RDW-CV 14.6 11.3 - 14.8 % 09/01/2024 11:56 AM [facility] Platelet Count 285 150 - 420 x10E9/L 09/01/2024 11:56 AM [facility] MPV 10.3 7.8 - 11.4 fL 09/01/2024 11:56 AM [facility] Neutrophil % 49.1 41.0 - 74.0 % 09/01/2024 11:56 AM [facility] Lymphocyte % 38.5 17.0 - 47.0 % 09/01/2024 11:56 AM [facility] Monocyte % 7.1 3.0 - 11.0 % 09/01/2024 11:56 AM [facility] Eosinophil % 4.0 0.0 - 7.0 % 09/01/2024 11:56 AM [facility] Basophil % 0.8 0.0 - 1.6 % 09/01/2024 11:56 AM [facility] Immature Granulocytes % 0.5 0.0 - 1.0 % 09/01/2024 11:56 AM [facility] Neutrophil Absolute 5.82 1.60 - 7.50 x10E9/L 09/01/2024 11:56 AM [facility] Lymphocyte Absolute 4.56(H) 1.00 - 4.40 x10E9/L 09/01/2024 11:56 AM [facility] Monocyte Absolute 0.84 0.15 - 1.00 x10E9/L 09/01/2024 11:56 AM [facility] Eosinophil Absolute 0.47 0.00 - 0.60 x10E9/L 09/01/2024 11:56 AM [facility] Basophil Absolute 0.09 0.00 - 0.13 x10E9/L 09/01/2024 11:56 AM [facility] Blood BLOOD SPECIMEN / Unknown Lab Venipuncture / Unknown 09/01/2024 11:07 AM FINISH SANDER 09/01/2024 11:42 AM [facility] Nataliia Cooper MD LAB - HEMATOLOGY ORD ERABLES [facility] [address] [place] [address], [facility] [phone] * (ABNORMAL) RENAL FUNCTION PANEL (09/01/2024 11:07 AM [facility]) BUN 27(H) 7 - 26 mg/dL 09/01/2024 12:14 PM [facility] Creatinine 2.02(H) 0.71 - 1.16 mg/dL 09/01/2024 12:14 PM [facility] Sodium 141 136 - 145 mmol/L 09/01/2024 12:14 PM [facility] Potassium 4.6(H) 3.5 - 4.5 mmol/L 09/01/2024 12:14 PM [facility] Chloride 107 98 - 107 mmol/L 09/01/2024 12:14 PM [facility] CO2 27 22 - 29 mmol/L 09/01/2024 12:14 PM [facility] Glucose 154(H) 70 - 99 mg/dL 09/01/2024 12:14 PM [facility] Albumin 3.9 3.4 - 5.0 g/dL 09/01/2024 12:14 PM [facility] Calcium 11.3(H) 8.4 - 10.2 mg/dL 09/01/2024 12:14 PM [facility] Phosphorus 2.9 2.8 - 5.1 mg/dL 09/01/2024 12:14 PM [facility] Anion Gap 7 6 - 16 09/01/2024 12:14 PM [facility] BUN/Creatinine Ratio 13 7 - 23 09/01/2024 12:14 PM [facility] Osmolality Calculated 300(H) 275 - 295 mOsm/kg 09/01/2024 12:14 PM [facility] eGFR by CKD-EPI 36(L) >=90 mL/min/1.7 3 m2 09/01/2024 12:14 PM [facility] Blood BLOOD SPECIMEN / Unknown Lab Venipuncture / Unknown 09/01/2024 11:07 AM FINISH SANDER 09/01/2024 11:42 AM FINISH SANDER Nataliia Cooper MD LAB - CHEMISTRY SERENA PAGE [facility] Organization Address City/State/ZIP Co de Phone Number [facility] [address] [place] [address], [facility] [phone] * US Retroperitoneal Complete (09/01/2024 9:37 AM FINISH SANDER) Anatomical Region Laterality Modality Abdomen Ultrasound 09/01/2024 9:45 AM FINISH SANDER Impressions 09/01/2024 9:50 AM FINISH SANDER Impression: 1. Normal-sized kidneys with normal echogenicity. 2. No hydronephrosis or nephrolithiasis. > Interpreting Provider: Denae Grijalva MD on 09/01/2024 9:50 AM Narrative 09/01/2024 9:50 AM FINISH SANDER PROCEDURE: US RETROPERITONEAL COMPLETE DATE/TIME OF EXAM: [...] AM Nataliia Cooper MD US ORDERABLES * OK DESTR MALIG TRUNK,EXTREM 0.6-1 CM (08/26/2024 9:26 AM FINISH SANDER) Narrative Robb Howell MD - 08/26/2024 9:26 AM FINISH SANDER Amandeep Helton MD 08/26/2024 9:41 AM PROCEDURE: Cryotherapy and Curettage Patient was educated on purpose, risks/benefits and potential adverse effects, 100% chance of scar, statistics of cure, small chance of infection and recurrence. Informed consent obtained. A time out was performed immediatelyprior to the procedure: patient and provider/staff verbally confirmed correct patient, correct site, and correct procedure. ATTENDING PHYSICIAN: oRbb Howell MD SURGEON: Amandeep Helton MD DIAGNOSIS: [...] tolerated the procedure well. Amandeep Helton MD [facility] Dermatology Resident Robb Howell MD PROCEDURE/MINOR SURG ICAL ORDERABLES * OK DESTR MALIG TRUNK,EXTREM 0.6-1 CM (08/17/2024 12:25 PM FINISH SANDER) Narrative Robb Howell MD - 08/17/2024 12:25 PM FINISH SANDER Guy Gómez MD 08/17/2024 12:26 PM PROCEDURE: [...] Howell MD PROCEDURE/MINOR SURG ICAL ORDERABLES * OK DESTROY PREMALIG LESION, 1ST LESION (08/17/2024 12:25 PM FINISH SANDER) Narrative Robb Howell MD - 08/17/2024 12:25 PM FINISH SANDER Guy Gómez MD 08/17/2024 12:25 PM Diagnosis and treatment options discussed. Cryotherapy (Liquid Nitrogen) to 1 lesion for 4-6 seconds. Number of cycles: 1. Wound care reviewed. Robb Howell MD PROCEDURE/MINOR SURG ICAL ORDERABLES * OK TANGNTL BX SKIN SINGLE LES (08/17/2024 12:24 PM FINISH SANDER) Narrative Robb Howell MD - 08/17/2024 12:24 PM FINISH SANDER Guy Gómez MD 08/17/2024 12:24 PM Risks, [...] ICAL ORDERABLES * DERMATOPATHOLOGY (08/17/2024 3:33 AM FINISH SANDER) Case Report Dermatopathology Report Case: [id number] Authorizing Provider: Robb Howell MD Collected: 08/17/2024 03:33 AM Ordering Location: [facility] - Received: 08/18/2024 11:05 AM General Dermatology Pathologist: Rose Soto MD Specimen: Skin, left forearm 1:26 PM FINISH SANDER DERMATOPATHOLOGY LABORATORY Final Diagnosis Specimen A. 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 The specimen consists of a shave biopsy measuring [id number] mm. Jar 0. 1:26 PM [facility] [...] characteristic determined by the Dermatopathology Laboratory at [facility], directed by Dr. Barbara Becker. These tests need not be, and therefore are not, approved by the [place] Food and Drug Administration. The tests are used for clinical purposes. Billing Codes Specimen Charges Stain Charges 28521 1 1:26 PM [facility] DERMATOPATHOLOGY LABORATORY Embedded Images 1:26 PM [facility] DERMATOPATHOLOGY LABORATORY Pathology/Cytolo gy TISSUE SPECIMEN FROM SKIN / Unknown 08/17/2024 3:33 AM FINISH SANDER 08/18/2024 11:05 AM FINISH SANDER Robb Howell MD LAB - PATHOLOGY/CYTO LOGY ORDERABLES DERMATOPATHOLOGY LABORATORY [facility] Department of Dermatology [address], [address] [phone] * CARDIAC PROCEDURE ORDER (07/26/2024) Only the most recent of2 resultswithin the time period is included. Narrative 07/26/2024 Ordered by an unspecified provider. Scanned Document CARDIAC SERVICES ORD ERABLES * OK PM DEVICE PROGR EVAL DUAL (07/19/2024 8:47 AM FINISH SANDER) Narrative Daily Bravo MD - 07/19/2024 8:47 AM FINISH SANDER Daily Bravo MD 07/19/2024 8:49 AM This is a 64 year old male with a H/O sick sinus syndrome . The patient received a [employer] Advisa DR dual chamber pacemaker on 09/23/16. 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 The patient will be scheduled for 3 month remote follow-up. Instructed to call with questions or problem. Daily Bravo MD PROCEDURE/MINOR SURG ICAL ORDERABLES * EKG 12-LEAD (07/19/2024 8:11 AM FINISH SANDER) Ventricular Rate 71 BPM [facility] Atrial Rate 71 BPM [facility] P-R Interval 244 ms [facility] QRS Duration ms 194 ms [facility] Q-T Interval ms 446 ms [facility] QTC Calculation (Bezet) 484 ms [facility] Calculated R [place] -85 degrees [facility] Calculated T [place] 34 degrees [facility] Interpretation EKG [...] QUINCY, DAILY ([id number]) on 07/19/2024 1:27:54 PM [facility] 07/19/2024 8:11 AM FINISH SANDER 07/19/2024 1:27 PM FINISH SANDER Daily Bravo MD ECG ORDERABLES [facility] * CT LUNG CANCER SCREEN LOW DOSE (06/14/2024 1:47 PM FINISH SANDER) Anatomical Region Laterality Modality Chest Computed Tomogra phy 06/14/2024 3:19 PM FINISH SANDER Impressions 06/14/2024 8:13 PM FINISH SANDER Impression: No pulmonary nodules identified. Lung-RADS category [...] Cancer. > Dictated by Naz Roblero MD, (campus president). IRuel MD have personally reviewed and interpreted this examination/study. > Interpreting Provider: Ruel Whitehead MD on 06/14/2024 8:13 PM Narrative 06/14/2024 8:13 PM FINISH SANDER PROCEDURE: CT LUNG SCREEN LOW DOSE DATE/TIME [...] Cancer. > Dictated by Naz Roblero MD, (campus president). I, Ruel Whitehead MD have personally reviewed and interpreted this examination/study. > Interpreting Provider: Ruel Whitehead MD on 06/14/2024 8:13 PM Becca Ford MD CT ORDERABLES from Last 3 Months or Most Recently Relevant to Health Maintenance Care Teams Metal Reed Tuner Relationship Specialty Start Date End Date Dina Cloud PA-C [facility] [place] [address] PCP - General Physician Plumber Gasfitter 07/10/20
--- OUTSIDE RECORDS SUMMARY | 2024-10-17 09:50 | XMS_ITS | Patient Health Summary ---
Author Organization [facility] Address [address] [place] [address] Care Team Providers Care Top Distribution Executive Name Role Phone Dina Cloud PA-C Primary Care Provider Note from [facility],non-owned Affiliates and Associated Physician Practices is amultiple site organization consisting of ambulatory clinics and hospital sitesin [place], [place], [place] and [place]. This disclosure is being madepursuant to the Care Everywhere program and may not contain all information available regarding this patient. Last updated 18.[facility] Allergies * Penicillins(Other) -Low Criticality Medications * Be aware that medications may not be up to date on this document. Alwaysverify current medications with the patient. * folic acid (FOLVITE) 1 MG tablet(Started 07/20/2017) Take by mouth DAILY. * atorvastatin (LIPITOR) 80 MG tablet(Started 05/26/2017) Take 1 (one) tablet by mouth once daily * vitamin D, ergocalciferol, (DRISDOL) 1.25 MG (75012 UT) capsule(Started 06/27/2020) Take 1 (one) capsule [...] refills by 01/08/2024 * Continuous Blood Gluc Leather Cartridge Belt Maker (Dexcom G7 Leather Cartridge Belt Maker) SHANE(Started 01/29/2023) Use 1 kit as directed * albuterol HFA (ProAir HFA) 108 (90 Base) MCG/ACT inhaler(Started 06/18/2023) Inhale 2 (two) puffs by mouth every 4 hours as needed 5 refills by 06/17/2024 * Spacer/Aero-Holding Chambers (AeroChamber)(Started 06/18/2023) Inhale by mouth as directed 5 refills by 06/17/2024 * HYDROcodone-acetaminophen (Willard) 10-325 MG tablet(Started 09/04/2023) Take 1 (one) [...] TABLETS EVERY EVENING 4 refills by 09/13/2025 Active Problems Problem Noted Date Diagnosed Date [...] carotid artery 1 09/23/2016 Immunizations * [employer] 12+YR 30MCG/0.3mL(Given 05/13/2023) * FLU, HISTORIC VACCINE(Given [...] Comments Blood Pressure 164/83 09/08/2024 7:55 AM TELESALES AGENT Pulse 94 09/08/2024 7:55 AM TELESALES AGENT Temperature 36.7 C (98 F) 09/08/2024 7:55 AM TELESALES AGENT Respiratory Rate 17 06/16/2024 1:59 PM TELESALES AGENT Oxygen Saturation 95% 09/08/2024 7:55 AM TELESALES AGENT Inhaled Oxygen Concentration - - Weight 103.1 kg (227 lb 6.4 oz) 09/08/2024 7:55 AM TELESALES AGENT Height 175.3 cm (5' 9 ) 09/08/2024 7:55 AM TELESALES AGENT Body Mass Index 33.58 09/08/2024 7:55 AM TELESALES AGENT Procedures * US SOFT TISSUE HEAD NECK(Performed 10/12/2024) Performed for Hypercalcemia * PTH RELATED PEPTIDE(Performed 10/12/2024) Performed for Hypercalcemia * PROTEIN ELECTROPHORESIS BLOOD(Performed 10/12/2024) Performed for Hypercalcemia * URINE MICROSCOPIC ONLY REFLEX TO CULTURE(Performed [...] stage 3a or 3b CKD (HCC) * DE DESTR MALIG TRUNK,EXTREM 0.6-1 CM(Performed 08/26/2024) 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 * DE DESTR MALIG TRUNK,EXTREM 0.6-1 CM(Performed 08/17/2024) 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 * DE DESTROY PREMALIG LESION, 1ST LESION(Performed 08/17/2024) Performed for Actinic keratosis * DE TANGNTL BX SKIN SINGLE LES(Performed 08/17/2024) Performed for Neoplasm of uncertain behavior of skin * DERMATOPATHOLOGY(Performed 08/17/2024) Performed for Neoplasm of uncertain behavior of skin * CARDIAC PROCEDURE ORDER(Performed 07/26/2024) * DE PM DEVICE PROGR EVAL DUAL(Performed 07/19/2024) Performed for SSS (sick sinus syndrome) ([facility]) * EKG 12-LEAD(Performed 07/19/2024) Performed for SSS (sick sinus syndrome) ([facility]) * CARDIAC PROCEDURE ORDER(Performed 07/19/2024) * CT LUNG SCREEN LOW DOSE(Performed 06/14/2024) Performed for Nicotine dependence, cigarettes, uncomplicated * DE PM/ICD REMOTE TECH SERV(Performed 06/04/2024) Performed for SSS (sick sinus syndrome) ([facility]) * DE PM DEVICE INTERROGATE REMOTE(Performed 06/04/2024) Performed for SSS (sick sinus syndrome) ([facility]) * CARDIAC PROCEDURE ORDER(Performed 04/22/2024) * URINE MICROSCOPIC ONLY REFLEX TO CULTURE(Performed 04/21/2024) Performed for Stage 3 chronic kidney disease, unspecified whether stage 3a or 3b CKD ([facility]) * MICROALB/CREAT RATIO URINE RANDOM PANEL(Performed 04/21/2024) Performed for Stage 3 chronic kidney disease, unspecified whether stage 3a or 3b CKD ([facility]) * URINALYSIS REFLEX MICROSCOPIC REFLEX CULTURE(Performed 04/21/2024) Performed for Stage 3 chronic kidney disease, unspecified whether stage 3a or 3b CKD ([facility]) * VITAMIN D 25-HYDROXY(Performed 04/21/2024) Performed for Stage 3 chronic kidney disease, unspecified whether stage 3a or 3b CKD ([facility]) * PTH INTACT W/O CALCIUM(Performed 04/21/2024) Performed for Stage 3 chronic kidney disease, unspecified whether stage 3a or 3b CKD ([facility]) * HEMOGLOBIN A1C(Performed 04/21/2024) Performed for Stage 3 chronic kidney disease, unspecified whether stage 3a or 3b CKD ([facility]) * URIC ACID BLOOD(Performed 04/21/2024) Performed for Stage 3 chronic kidney disease, unspecified whether stage 3a or 3b CKD ([facility]) * RENAL FUNCTION PANEL(Performed 04/21/2024) Performed for Stage 3 chronic kidney disease, unspecified whether stage 3a or 3b CKD ([facility]) * CBC W AUTO DIFFERENTIAL(Performed 04/21/2024) Performed for Stage 3 chronic kidney disease, unspecified whether stage 3a or 3b CKD ([facility]) * DEXA BONE DENSITY AXIAL SKELETON(Performed 04/21/2024) Performed for Hyperparathyroidism ([facility]) * LAB RESULTS ORDER(Performed 03/09/2024) * PROC UROFLOWMETRY(Performed 02/25/2024) Performed for S/P TURP * DE MSR PVR U&/BLADD CAPCTY US NON(Performed 02/25/2024) Performed for S/P TURP * URINALYSIS AUTO - POINT OF CARE (AMB) [facility](Performed 02/25/2024) Performed for S/P TURP * DE TANGNTL BX SKIN SINGLE LES(Performed 01/29/2024) Performed for Neoplasm of uncertain behavior of skin * DE DESTROY PREMALIG LESION, 2-14(Performed 01/29/2024) Performed for Actinic keratosis * DE DESTROY PREMALIG LESION, 1ST LESION(Performed 01/29/2024) Performed for Actinic keratosis * DERMATOPATHOLOGY(Performed 01/29/2024) Performed for Neoplasm of uncertain behavior of skin * CARDIAC PROCEDURE ORDER(Performed 01/25/2024) * DE PM DEVICE PROGR EVAL DUAL(Performed 01/12/2024) Performed for SSS (sick sinus syndrome) ([facility]) * PTH RELATED PEPTIDE(Performed 09/28/2023) * VITAMIN D 1,25 DIHYDROXY(Performed 09/28/2023) * PTH INTACT(Performed 09/28/2023) * MICROALB/CREAT RATIO URINE RANDOM PANEL(Performed 09/28/2023) * VITAMIN D 25-HYDROXY(Performed 09/28/2023) * LIPID PROFILE(Performed 09/28/2023) * BASIC METABOLIC PANEL (CALCIUM TOTAL)(Performed 09/28/2023) * PROC UROFLOWMETRY(Performed 09/25/2023) Performed for Pain in both testicles * DE MSR PVR U&/BLADD CAPCTY US NON(Performed 09/25/2023) Performed for Pain in both testicles * URINALYSIS AUTO - POINT OF CARE (AMB) [facility](Performed 09/25/2023) Performed for Pain in both testicles * DE POLYSOM 6/>YRS CPAP 4/> PARM(Performed 09/02/2023) Performed for AGNIESZKA (obstructive sleep apnea), Sleep related hypoxia, Excessive daytime sleepiness, Chronic fatigue, Insomnia secondary to chronic pain, Restless legs syndrome (RLS), Neuropathy, Nightmares, Confusional arousals, Sleep related rhythmic movement disorder, Gastroesophageal reflux disease, unspecified whether esophagitis present, Chronic obstructive pulmonary disease, unspecified COPD type ([facility]), Decreased hearing of both ears, Chronic bilateral low back pain with left-sided sciatica, History of CVA with residual deficit, Memory disturbance, Obesity, Class I, BMI 30-34.9, Intolerance of continuous positive airway pressure (CPAP) ventilation * CARDIAC PROCEDURE ORDER(Performed 07/09/2023) * ECHO COMPLETE(Performed 07/03/2023) Performed for Coronary artery disease involving salam[place]of coronary artery of salamatof heart without angina pectoris * PROC IMPLANT WEAR CARDIAC DEVICE EVAL(Performed 07/03/2023) Performed for Cardiac pacemaker in situ * CT CHEST WO CONT AND HIRES(Performed 06/18/2023) Performed for Abnormal CT of the chest * COMPLETE PFT W/WO BRONCHODILATOR(Performed 06/18/2023) Performed for Dyspnea on exertion * DE PM/ICD REMOTE TECH SERV(Performed 05/23/2023) Performed for Cardiac pacemaker in situ * DE PM DEVICE INTERROGATE REMOTE(Performed 05/23/2023) Performed for Cardiac pacemaker in situ * PROC UROFLOWMETRY(Performed 05/21/2023) Performed for S/P TURP * DE MSR PVR U&/BLADD CAPCTY US NON(Performed 05/21/2023) Performed for S/P TURP * URINALYSIS AUTO - POINT OF CARE (AMB) [facility](Performed 05/21/2023) Performed for S/P TURP * HEMOGLOBIN A1C - POINT OF CARE (AMB) [facility](Performed 04/02/2023) Performed for Type 2 diabetes mellitus without complication, unspecified whether residential insulin use ([facility]) * CARDIAC PROCEDURE ORDER(Performed 04/02/2023) * DE PM DEVICE INTERROGATE REMOTE(Performed 01/31/2023) Performed for SSS (sick sinus syndrome) ([facility]), Cardiac pacemaker in situ * DE PM/ICD REMOTE TECH SERV(Performed 01/31/2023) Performed for SSS (sick sinus syndrome) ([facility]), Cardiac pacemaker in situ * DE CYSTOURETHROSCOPY(Performed 01/15/2023) Performed for Urine stream spraying, Painful urination * DE MSR PVR U&/BLADD CAPCTY US NON(Performed 01/15/2023) Performed for Pain in testicle, unspecified laterality * DE ELECTRO-UROFLOWMETRY, FIRST(Performed 01/15/2023) Performed for Pain in testicle, unspecified laterality * CT ABDOMEN PELVIS WWO CONTRAST(Performed 01/15/2023) Performed for Pain in testicle, unspecified laterality, Painful urination, Urine stream spraying, S/P TURP * CREATININE - POCT INTERFACED(Performed 01/15/2023) * LIPID PROFILE(Performed 01/13/2023) * CARDIAC PROCEDURE ORDER(Performed 01/06/2023) * DE PM DEVICE PROGR EVAL SNGL(Performed 01/01/2023) Performed for SSS (sick sinus syndrome) ([facility]) * PERIPHERAL NEUROPATHY PANEL(Performed 12/30/2022) Performed for Neuropathy * CARDIAC PROCEDURE ORDER(Performed 12/18/2022) * DE INJECT NERV BLCK,ILIOINGU/ILIOHYP(Performed 11/26/2022) Performed for Pain in testicle, unspecified laterality * URINALYSIS AUTO - POINT OF CARE (AMB) [facility](Performed 10/29/2022) Performed for Urinary frequency * PATHOLOGY/CYTOLOGY REPORT ORDER(Performed 10/29/2022) * URINALYSIS AUTO - POINT OF CARE (AMB) [facility](Performed 10/07/2022) Performed for Pain in testicle, unspecified laterality * DE BLDR INSTLJ ANTICARCINOGENIC AGT(Performed 10/01/2022) Performed for Urinary frequency, Dysuria * LAB RESULTS ORDER(Performed 10/01/2022) * HEMOGLOBIN A1C - POINT OF CARE (AMB) [facility](Performed 09/29/2022) Performed for Type 2 diabetes mellitus with other circulatory complication, with long-term current use of insulin ([facility]) * DE IRRIGATION OF BLADDER(Performed 09/17/2022) Performed for Painful urination * DE PM/ICD REMOTE TECH SERV(Performed 08/19/2022) Performed for SSS (sick sinus syndrome) ([facility]), Cardiac pacemaker in situ * DE PM DEVICE INTERROGATE REMOTE(Performed 08/19/2022) Performed for SSS (sick sinus syndrome) ([facility]), Cardiac pacemaker in situ * CARDIAC PROCEDURE ORDER(Performed 08/15/2022) * HEMOGLOBIN A1C - POINT OF CARE (AMB) [facility](Performed 05/19/2022) Performed for Type 2 diabetes mellitus without complication, unspecified whether terminal operations manager insulin use ([facility]) * OPH OCT TEST [facility](Performed 04/15/2022) Performed for Diabetes mellitus without ophthalmic manifestations ([facility]) * CARDIAC PROCEDURE ORDER(Performed 03/04/2022) * PHOSPHORUS [...] URINE CULTURE (EXTERNAL RESULT ENTRY)(Performed 12/26/2021) * DE EXC SKIN BENIG 1.1-2CM FACE,FACIAL(Performed 12/16/2021) Performed for Neoplasm of uncertain behavior of skin * DE INTMD WND REPAIR FACE,FACIAL <2.5CM(Performed 12/16/2021) Performed for Neoplasm of uncertain behavior of skin * DE DESTR MALIG TRUNK,EXTREM 1.1-2 CM(Performed 12/16/2021) 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 * DERMATOPATHOLOGY(Performed 11/28/2021) Performed for Neoplasm of uncertain behavior of skin * HEMOGLOBIN A1C - POINT OF CARE (AMB) [facility](Performed 11/19/2021) Performed for Type 2 diabetes mellitus without complication, unspecified whether terminal operations manager insulin use (HCC) * URINALYSIS AUTO - POINT OF CARE (AMB) [facility](Performed 11/08/2021) Performed for Dysuria * CARDIAC PROCEDURE ORDER(Performed 10/10/2021) * LAB RESULTS ORDER(Performed 10/09/2021) * PROC IMPLANT WEAR CARDIAC DEVICE EVAL(Performed 10/07/2021) Performed for SSS (sick sinus syndrome) ([facility]) * LAB RESULTS ORDER(Performed 09/27/2021) * LAB RESULTS ORDER(Performed 09/27/2021) * DE TANGNTL BX SKIN SINGLE LES(Performed 09/13/2021) Performed for Neoplasm of uncertain behavior of skin * DE TANGNTL BX SKIN EA SEP ADDL(Performed 09/13/2021) Performed for Neoplasm of uncertain behavior of skin * DE TANGNTL BX SKIN EA SEP ADDL(Performed 09/13/2021) [...] 05/23/2021) * LAB RESULTS ORDER(Performed 03/11/2021) * DE CYSTOURETHROSCOPY(Performed 03/10/2021) Performed for Dysuria, Urine stream [...] 07/10/2020) * MAGNESIUM BLOOD(Performed 07/10/2020) * PT-INR [facility](Performed 07/10/2020) * COMPREHENSIVE METABOLIC PANEL(Performed 07/10/2020) * [...] 08/10/2017) * CREATININE BLOOD - POCT (IP) [facility](Performed 08/10/2017) * FL MYELOGRAM LUMBAR(Performed 07/20/2017) * CT LUMBAR POST MYELOGRAM(Performed 07/20/2017) * GLUCOSE ACCUCHECK(Performed 07/20/2017) * XR LUMBAR SPINE 4VW OR MORE(Performed 06/18/2017) Results * US Soft Tissue Head Neck [...] PTH RELATED PEPTIDE (10/12/2024 9:10 AM CDT) Only the most recent of2 resultswithin the time period is included. PTH Related Peptide 2.8(H) 0.0 - 2.3 pmol/L 10/15/2024 6:47 PM CDT [facility] ([facility]) Comment: INTERPRETIVE INFORMATION: Parathyroid Hormone-Related Peptide This test was developed and its performance characteristics determined by [facility]. It has not been cleared or approved by the [place] Food and Drug Administration. This test was performed in a CLIA certified laboratory and is intended for clinical purposes. Performed By: [facility] [address] [place] [address] Clinical Director: Reagan Nelson MD, PhD CLIA Number: [id number] Blood BLOOD SPECIMEN / Unknown Lab Venipuncture / Unknown 10/12/2024 9:10 AM CDT 10/12/2024 9:28 AM CDT Nataliia Cooper MD LAB - CHEMISTRY [facility]) [address] [place] [address] * PROTEIN ELECTROPHORESIS BLOOD (10/12/2024 9:10 AM CDT) Interpretation Serum PE Normal Pattern Normal Pattern 10/13/2024 2:35 PM CDT [facility] Comment: Serum capillary electrophoresis shows characteristic bands corresponding to albumin, alpha and beta globulins and polyclonal immunoglobulins. No monoclonal immunoglobulin detected. Non-secretory myeloma (NSM) and light chain only myeloma cannot be excluded based on this result. Recommend serum free light chain measurements for complete evaluation of plasma cell disorders. Holly Montoya PhD, [facility] Clinical Counter Sales Person lotus notes administrator *The electrophoresis pattern and the interpretation have been reviewed and verified by the teaching physician. Protein Total 6.8 6.0 - 8.3 g/dL 10/13/2024 2:35 PM [facility] Albumin 4.0 3.3 - 5.6 g/dL 10/13/2024 2:35 PM [facility] Alpha-1 Globulins 0.3 0.2 - 0.4 g/dL 10/13/2024 2:35 PM [facility] Alpha-2 Globulins 0.8 0.5 - 1.0 g/dL 10/13/2024 2:35 PM [facility] Beta Globulins 0.9 0.6 - 1.1 g/dL 10/13/2024 2:35 PM [facility] Gamma Globulins 0.8 0.6 - 1.6 g/dL 10/13/2024 2:35 PM [facility] Blood BLOOD SPECIMEN / Unknown Lab Venipuncture / Unknown 10/12/2024 9:10 AM CDT 10/12/2024 9:21 AM CDT Nataliia Cooper MD LAB - CHEMISTRY ORDDominique PAGE [facility] Organization Address City/State/[facility] Co de Phone Number [facility] [address] [place] [phone], [facility] [phone] * (ABNORMAL) URINE MICROSCOPIC ONLY REFLEX TO CULTURE (09/01/2024 11:37 AM TELESALES AGENT) Only the most recent of2 resultswithin the time period is included. Reflex Status Culture not indicated 09/01/2024 12:36 PM [facility] WBC UA 0-5 None Seen, 0-5 /HPF 09/01/2024 12:36 PM [facility] Squamous Epithelial Cells UA 0-2 None Seen, 0-2, 3-5 /HPF 09/01/2024 12:36 PM [facility] Mucus UA 1+ /LPF 09/01/2024 12:36 PM [facility] Hyaline Casts UA 3-5(A) None Seen, 0-2 /LPF 09/01/2024 12:36 PM [facility] Urine URINE SPECIMEN OBTAINED BY CLEAN CATCH PROCEDURE / Unknown Collection / Unknown 09/01/2024 11:37 AM TELESALES AGENT 09/01/2024 12:05 PM TELESALES AGENT [facility] - 09/01/2024 12:36 PM TELESALES AGENT Nataliia Cooper MD LAB - URINALYSIS ORD ERABLES [facility] [address] [place] [address], [facility] [phone] * (ABNORMAL) URINALYSIS REFLEX MICROSCOPIC REFLEX CULTURE (09/01/2024 11:37 AM TELESALES AGENT) Only the most recent of2 resultswithin the time period is included. Color UA Yellow Straw, Yellow 09/01/2024 12:13 PM [facility] Clarity UA Slt Cloudy(A) Clear 09/01/2024 12:13 PM [facility] Specific [place] UA 1.026 1.005 - 1.030 09/01/2024 12:13 PM [facility] pH UA 5.0 5.0 - 8.0 pH 09/01/2024 12:13 PM [facility] Protein UA 2+(A) Negative 09/01/2024 12:13 PM [facility] Glucose UA 3+(A) Negative 09/01/2024 12:13 PM [facility] Ketone UA Negative Negative 09/01/2024 12:13 PM [facility] Bilirubin UA Negative Negative 09/01/2024 12:13 PM [facility] Blood UA Negative Negative 09/01/2024 12:13 PM [facility] Nitrite UA Negative Negative 09/01/2024 12:13 PM [facility] Leukocyte Esterase Negative Negative 09/01/2024 12:13 PM [facility] Urobilinogen UA Negative Negative mg/dL 09/01/2024 12:13 PM [facility] Urine URINE SPECIMEN OBTAINED BY CLEAN CATCH PROCEDURE / Unknown Collection / Unknown 09/01/2024 11:37 AM TELESALES AGENT 09/01/2024 12:05 PM TELESALES AGENT Narrative [facility] - 09/01/2024 12:13 PM TELESALES AGENT Nataliia Cooper MD LAB - URINALYSIS ORD ERABLES Performing Organization Address [facility] Co de Phone Number [address] [phone], [facility] [phone] * (ABNORMAL) MICROALB/CREAT RATIO URINE RANDOM PANEL (09/01/2024 11:37 AM TELESALES AGENT) Only the most recent of3 resultswithin the time period is included. Albumin Random Urine 755.4 Not Established ug/mL 09/01/2024 12:59 PM [facility] Comment:Result obtained by julio barrett. Creatinine Urine 161.04 Not Established mg/dL 09/01/2024 12:59 PM [facility] Urine Albumin/Creati nine Ratio 469(H) <30 mg/g 09/01/2024 12:59 PM [facility] Urine URINE SPECIMEN OBTAINED BY CLEAN CATCH PROCEDURE / Unknown Collection / Unknown 09/01/2024 11:37 AM TELESALES AGENT 09/01/2024 12:10 PM TELESALES AGENT Nataliia Cooper MD LAB - URINE CHEMISTR Y ORDERABLES Performing Organization Address [facility] Co de Phone Number [address] [phone], [facility] [phone] * (ABNORMAL) PTH INTACT W/O CALCIUM (09/01/2024 11:07 AM TELESALES AGENT) Only the most recent of2 resultswithin the time period is included. PTH Intact 203.7(H) 8.0 - 77.0 pg/mL 09/01/2024 12:15 PM [facility] Blood BLOOD SPECIMEN / Unknown Lab Venipuncture / Unknown 09/01/2024 11:07 AM TELESALES AGENT 09/01/2024 11:42 AM TELESALES AGENT Nataliia Cooper MD LAB - CHEMISTRY SERENA PAGE Performing Organization Address City/[facility]/ZIP Co de Phone Number [address] [phone], [facility] [phone] * (ABNORMAL) URIC ACID BLOOD (09/01/2024 11:07 AM TELESALES AGENT) Only the most recent of2 resultswithin the time period is included. Uric Acid 7.3(H) 3.5 - 7.2 mg/dL 09/01/2024 12:14 PM [facility] Blood BLOOD SPECIMEN / Unknown Lab Venipuncture / Unknown 09/01/2024 11:07 AM TELESALES AGENT 09/01/2024 11:42 AM TELESALES AGENT Nataliia Cooper MD LAB - CHEMISTRY SERENA PAGE Performing Organization Address City/[facility]/ZIP Co de Phone Number [address] [address], [facility] [phone] * (ABNORMAL) HEMOGLOBIN A1C (09/01/2024 11:07 AM TELESALES AGENT) Only the most recent of5 resultswithin the time period is included. Hemoglobin A1c 7.7(H) <=5.6 % 09/01/2024 1:10 PM [facility] Estimated Average Glucose 174 mg/dL 09/01/2024 1:10 PM [facility] Comment: HbA1c Interpretation: Normal : < 5.7% Pre-diabetes: 5.7-6.4% Diabetes: Equal to or greater than 6.5% Test results diagnostic of diabetes should be repeated for confirmation. Treatment target values recommended by ADA and other clinical organizations should be used to evaluate metabolic control in patients. Reference: [place] [employer], Standards of Care in Diabetes -2020 In patients 70 years and older consider HbA1c target range of 7.0-7.5% (Reference: Vickey Moser et al. JAMDA. 2012) The Sebia assay for the measurement of HbA1c is a National Glycohemoglobin Standardization Program (NGSP) certified method. Blood BLOOD SPECIMEN / Unknown Lab Venipuncture / Unknown 09/01/2024 11:07 AM TELESALES AGENT 09/01/2024 11:42 AM TELESALES AGENT Nataliia Cooper MD LAB - CHEMISTRY SERENA PAGE Performing Organization Address City/[facility]/ZIP Co de Phone Number [facility] [address] [place] [address], [facility] [phone] * VITAMIN D 25-HYDROXY (09/01/2024 11:07 AM TELESALES AGENT) Only the most recent of3 resultswithin the time period is included. Vitamin D, 25 Hydroxy 43.2 30.0 - 80.0 ng/mL 09/01/2024 12:32 PM TELESALES AGENT [facility] Comment: The recommendations for 25-Hydroxy Vitamin [...] Lab Venipuncture / Unknown 09/01/2024 11:07 AM TELESALES AGENT 09/01/2024 11:42 AM TELESALES AGENT Nataliia Cooper MD LAB - CHEMISTRY SERENA PAGE [facility] [address] [place] [phone], [facility] [phone] * (ABNORMAL) CBC WITH DIFFERENTIAL (09/01/2024 11:07 AM TELESALES AGENT) Only the most recent of3 resultswithin the time period is included. WBC 11.8(H) 4.0 - 10.7 x10E9/L 09/01/2024 11:56 AM TELESALES AGENT [facility] RBC Count 4.20(L) 4.30 - 5.80 x10E12/L 09/01/2024 11:56 AM [facility] Hemoglobin 14.7 13.3 - 17.5 g/dL 09/01/2024 11:56 AM [facility] Hematocrit 44.0 38.7 - 51.1 % 09/01/2024 11:56 AM [facility] MCV 104.8(H) 80.0 - 98.0 fL 09/01/2024 11:56 AM [facility] MCH 35.0(H) 26.7 - 33.6 pg 09/01/2024 11:56 AM [facility] MCHC 33.4 31.7 - 36.3 g/dL 09/01/2024 11:56 AM [facility] RDW-CV 14.6 11.3 - 14.8 % 09/01/2024 11:56 AM [facility] Platelet Count 285 150 - 420 x10E9/L 09/01/2024 11:56 AM [facility] MPV 10.3 7.8 - 11.4 fL 09/01/2024 11:56 AM [facility] Neutrophil % 49.1 41.0 - 74.0 % 09/01/2024 11:56 AM [facility] Lymphocyte % 38.5 17.0 - 47.0 % 09/01/2024 11:56 AM [facility] Monocyte % 7.1 3.0 - 11.0 % 09/01/2024 11:56 AM [facility] Eosinophil % 4.0 0.0 - 7.0 % 09/01/2024 11:56 AM [facility] Basophil % 0.8 0.0 - 1.6 % 09/01/2024 11:56 AM [facility] Immature Granulocytes % 0.5 0.0 - 1.0 % 09/01/2024 11:56 AM [facility] Neutrophil Absolute 5.82 1.60 - 7.50 x10E9/L 09/01/2024 11:56 AM [facility] Lymphocyte Absolute 4.56(H) 1.00 - 4.40 x10E9/L 09/01/2024 11:56 AM [facility] Monocyte Absolute 0.84 0.15 - 1.00 x10E9/L 09/01/2024 11:56 AM [facility] Eosinophil Absolute 0.47 0.00 - 0.60 x10E9/L 09/01/2024 11:56 AM [facility] Basophil Absolute 0.09 0.00 - 0.13 x10E9/L 09/01/2024 11:56 AM [facility] Blood BLOOD SPECIMEN / Unknown Lab Venipuncture / Unknown 09/01/2024 11:07 AM TELESALES AGENT 09/01/2024 11:42 AM TELESALES AGENT Nataliia Cooper MD LAB - HEMATOLOGY ORD ERABLES [facility] [address] [place] [address], [facility] [phone] * (ABNORMAL) RENAL FUNCTION PANEL (09/01/2024 11:07 AM TELESALES AGENT) Only the most recent of2 resultswithin the time period is included. BUN 27(H) 7 - 26 mg/dL 09/01/2024 12:14 PM [facility] Creatinine 2.02(H) 0.71 - 1.16 mg/dL 09/01/2024 12:14 PM [facility] Sodium 141 136 - 145 mmol/L 09/01/2024 12:14 PM [facility] Potassium 4.6(H) 3.5 - 4.5 mmol/L 09/01/2024 12:14 PM [facility] Chloride 107 98 - 107 mmol/L 09/01/2024 12:14 PM [facility] CO2 27 22 - 29 mmol/L 09/01/2024 12:14 PM [facility] Glucose 154(H) 70 - 99 mg/dL 09/01/2024 12:14 PM [facility] Albumin 3.9 3.4 - 5.0 g/dL 09/01/2024 12:14 PM [facility] Calcium 11.3(H) 8.4 - 10.2 mg/dL 09/01/2024 12:14 PM [facility] Phosphorus 2.9 2.8 - 5.1 mg/dL 09/01/2024 12:14 PM [facility] Anion Gap 7 6 - 16 09/01/2024 12:14 PM [facility] BUN/Creatinine Ratio 13 7 - 23 09/01/2024 12:14 PM [facility] Osmolality Calculated 300(H) 275 - 295 mOsm/kg 09/01/2024 12:14 PM [facility] eGFR by CKD-EPI 36(L) >=90 mL/min/1.7 3 m2 09/01/2024 12:14 PM [facility] Blood BLOOD SPECIMEN / Unknown Lab Venipuncture / Unknown 09/01/2024 11:07 AM TELESALES AGENT 09/01/2024 11:42 AM TELESALES AGENT Nataliia Cooper MD LAB - CHEMISTRY SERENA PAGE [facility] Organization Address City/State/ZIP Co de Phone Number [facility] [address] [place] [phone], [facility] [phone] * US Retroperitoneal Complete (09/01/2024 9:37 AM TELESALES AGENT) Anatomical Region Laterality Modality Abdomen Ultrasound 09/01/2024 9:45 AM TELESALES AGENT Impressions 09/01/2024 9:50 AM TELESALES AGENT Impression: 1. Normal-sized kidneys with normal echogenicity. 2. No hydronephrosis or nephrolithiasis. > Interpreting Provider: Denae Grijalva MD on 09/01/2024 9:50 AM Narrative 09/01/2024 9:50 AM TELESALES AGENT PROCEDURE: US RETROPERITONEAL COMPLETE DATE/TIME OF EXAM: [...] AM Nataliia Cooper MD US ORDERABLES * DE DESTR MALIG TRUNK,EXTREM 0.6-1 CM (08/26/2024 9:26 AM TELESALES AGENT) Narrative Robb Howell MD - 08/26/2024 9:26 AM TELESALES AGENT Amandeep Helton MD 08/26/2024 9:41 AM PROCEDURE: [...] tolerated the procedure well. Amandeep Helton MD [facility] Dermatology Resident Robb Howell MD PROCEDURE/MINOR SURG ICAL ORDERABLES * DE DESTR MALIG TRUNK,EXTREM 0.6-1 CM (08/17/2024 12:25 PM TELESALES AGENT) Narrative Robb Howell MD - 08/17/2024 12:25 PM TELESALES AGENT Guy Gómez MD 08/17/2024 12:26 PM PROCEDURE: [...] Howell MD PROCEDURE/MINOR SURG ICAL ORDERABLES * DE DESTROY PREMALIG LESION, 1ST LESION (08/17/2024 12:25 PM TELESALES AGENT) Narrative Robb Howell MD - 08/17/2024 12:25 PM TELESALES AGENT Guy Gómez MD 08/17/2024 12:25 PM Diagnosis and treatment options discussed. Cryotherapy (Liquid Nitrogen) to 1 lesion for 4-6 seconds. Number of cycles: 1. Wound care reviewed. Robb Howell MD PROCEDURE/MINOR SURG ICAL ORDERABLES * DE TANGNTL BX SKIN SINGLE LES (08/17/2024 12:24 PM TELESALES AGENT) Narrative Robb Howell MD - 08/17/2024 12:24 PM TELESALES AGENT Guy Gómez MD 08/17/2024 12:24 PM Risks, [...] ICAL ORDERABLES * DERMATOPATHOLOGY (08/17/2024 3:33 AM TELESALES AGENT) Only the most recent of4 resultswithin the time period is included. Case Report Dermatopathology Report Case: [id number] Authorizing Provider: Robb Howell MD Collected: 08/17/2024 03:33 AM Ordering Location: [facility] - Received: 08/18/2024 11:05 AM General Dermatology Pathologist: Rose Soto MD Specimen: Skin, left forearm 1:26 PM TELESALES AGENT DERMATOPATHOLOGY LABORATORY Final Diagnosis Specimen A. 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 The specimen consists of a shave biopsy measuring [id number] mm. Jar 0. 1:26 PM [facility] DERMATOPATHOLOGY LABORATORY Microscopic Description Specimen A. SKIN, left forearm: The epidermis shows parakeratosis, full thickness disorderly maturation of keratinocytes, mitoses at different levels, and dyskeratotic cells. 1:26 PM [facility] DERMATOPATHOLOGY LABORATORY Disclaimer An external and internal positive and negative controls are appropriate for the histochemical, immunohistochemical and immunofluorescence stain(s) in this case (if any), except where stated explicitly. The performance characteristics of the stain(s) cited in this report were developed and its performance characteristic determined by the Dermatopathology Laboratory at [facility], directed by Dr. Barbara Becker. These tests need not be, and therefore are not, approved by the [place] Food and Drug Administration. The tests are used for clinical purposes. Billing Codes Specimen Charges Stain Charges 89787 1 1:26 PM [facility] DERMATOPATHOLOGY LABORATORY Embedded Images 1:26 PM [facility] DERMATOPATHOLOGY LABORATORY Pathology/Cytolo gy TISSUE SPECIMEN FROM SKIN / Unknown 08/17/2024 3:33 AM TELESALES AGENT 08/18/2024 11:05 AM TELESALES AGENT Robb Howell MD LAB - PATHOLOGY/CYTO LOGY ORDERABLES DERMATOPATHOLOGY LABORATORY [facility] Department of Dermatology [address], [address] [phone] * CARDIAC PROCEDURE ORDER (07/26/2024) Only the most recent of11 resultswithin the time period is included. Narrative 07/26/2024 Ordered by an unspecified provider. Scanned Document CARDIAC SERVICES ORD ERABLES * DE PM DEVICE PROGR EVAL DUAL (07/19/2024 8:47 AM TELESALES AGENT) Narrative Daily Bravo MD - 07/19/2024 8:47 AM TELESALES AGENT Daily Bravo MD 07/19/2024 8:49 AM This is a 64 year old male with a H/O sick sinus syndrome . The patient received a Medtronic Advisa DR gomez chamber pacemaker on 09/23/16. The patients device is functioning appropriately according to the research coordinator's recommendations with appropriate battery voltage, charge time, shock impedance (s), lead impedance (s) along with pacing and sensing thresholds. The patient will be scheduled for 3 month remote follow-up. Instructed to call with questions or problem. Daily Bravo MD PROCEDURE/MINOR SURG ICAL ORDERABLES * EKG 12-LEAD (07/19/2024 8:11 AM TELESALES AGENT) Only the most recent of2 resultswithin the time period is included. Ventricular Rate 71 BPM [facility] Atrial Rate 71 BPM [facility] P-R Interval 244 ms [facility] QRS Duration ms 194 ms [facility] Q-T Interval ms 446 ms [facility] QTC Calculation (Bezet) 484 ms [facility] Calculated R [place] -85 degrees [facility] Calculated T [place] 34 degrees [facility] Interpretation EKG [...] 1:27:54 PM [facility] 07/19/2024 8:11 AM TELESALES AGENT 07/19/2024 1:27 PM TELESALES AGENT Daily Bravo MD ECG ORDERABLES ANNIE ACEEVDO * CT LUNG CANCER SCREEN LOW DOSE (06/14/2024 1:47 PM TELESALES AGENT) Anatomical Region Laterality Modality Chest Computed Tomogra phy 06/14/2024 3:19 PM TELESALES AGENT Impressions 06/14/2024 8:13 PM TELESALES AGENT Impression: No pulmonary nodules identified. Lung-RADS category [...] Dictated by Naz Roblero MD, (vice president of talent management). I, Ruel Whitehead MD have personally reviewed and interpreted this examination/study. > Interpreting Provider: Ruel Whitehead MD on 06/14/2024 8:13 PM Narrative 06/14/2024 8:13 PM TELESALES AGENT PROCEDURE: CT LUNG SCREEN LOW DOSE DATE/TIME [...] Dictated by Naz Roblero MD, (vice president of talent management). I, Ruel Whitehead MD have personally reviewed and interpreted this examination/study. > Interpreting Provider: Ruel Whitehead MD on 06/14/2024 8:13 PM [address]cca Ford MD CT ORDERABLES * DE PM DEVICE INTERROGATE REMOTE, DE PM/ICD REMOTE TECH SERV (06/04/2024 5:04 PM [...] ORDERABLES * BONE DENSITY AXIAL SKELETON(1OR MORE SITES)[id number] (04/21/2024 1:06 PM CDT) Anatomical Region Laterality [...] and below > Dictated by Helen Murray (General Foundry Worker) 04/21/2024 1:26 PM Jase Zhao DO [...] and below > Dictated by Helen Murray (General Foundry Worker) 04/21/2024 1:26 PM Jase Zhao DO have personally reviewed and interpreted this examination/study. > Interpreting Provider: Jase Howell DO on 04/21/2024 2:04 PM Garry CORRIGANA ORDERABLES * LAB RESULTS ORDER (03/09/2024) Only [...] Davila DO PROCEDURE/MINOR CARABALLO RGICAL ORDERABLES * DE MSR PVR U&/BLADD CAPCTY US NON (02/25/2024 [...] - [facility] [address] Specific [place] UA 1.[address] [facility] [address] Blood [...] ANNIE [address] [place] [address], [facility] [phone] * DE TANGNTL BX SKIN SINGLE LES (01/29/2024 9:43 [...] message if not available. Jodee Jimenez MD [facility] Dermatology Resident, PGY3 Robb Howell MD PROCEDURE/MINOR SURG ICAL ORDERABLES * DE DESTROY PREMALIG LESION, 1ST LESION, DE DESTROY PREMALIG LESION, 2-14 (01/29/2024 9:43 AM CDT) Narrative Robb Howell MD - 01/29/2024 9:43 AM CDT Jodee Jimenez MD 01/29/2024 9:43 AM Diagnosis and treatment options discussed. Cryotherapy (Liquid Nitrogen) to 4 lesions (right ear, left cheek, left forearm, nasal dorsum) for 4-6 seconds each. Number of cycles: 1. Wound care reviewed. Jodee Jimenez MD [facility] Dermatology Resident, PGY3 Robb Howell MD PROCEDURE/MINOR SURG ICAL ORDERABLES * DE PM DEVICE PROGR EVAL DUAL (01/12/2024 9:59 AM CDT) Narrative Daily Bravo MD - 01/12/2024 9:59 AM CDT Daily Bravo MD 01/12/2024 10:01 AM This is a 64 year old male with a H/O SSS. The patient received a Medtronic Advisa DR The patients device is functioning appropriately according to the research coordinator's recommendations with appropriate battery voltage, charge time, shock impedance (s), lead impedance (s) along with pacing and sensing thresholds. The patient will be scheduled for 3 month follow-up. Instructed to call with questions or problem. Daily Bravo MD PROCEDURE/MINOR SURG ICAL ORDERABLES * (ABNORMAL) PTH INTACT (09/28/2023 9:09 AM TELESALES AGENT) PTH Intact 104(H) 15 - 65 pg/mL [facility] INSURANCE BILL Comment:FASTING 09/28/2023 9:09 AM TELESALES AGENT 09/28/2023 Narrative Resulting Agency Comment [facility] performed at: [facility] [address] [phone] Garry Tracey MD LAB - CHEMISTRY ORDDominique PAGE Performing Organization Address City/[facility] Co de Phone Number [facility] INSURANCE BILL [address] [place] [address] * VITAMIN D 1,25 DIHYDROXY (09/28/2023 9:09 AM TELESALES AGENT) Pathologist [facility] Calcitriol (1,25 di-OH Vit D) 44.9 24.8 - 81.5 pg/mL [facility] INSURANCE BILL Comment:FASTING 09/28/2023 9:09 AM TELESALES AGENT 09/28/2023 Narrative Resulting Agency Comment Lab Testing performed at: [facility] [phone] Garry Tracey MD LAB - CHEMISTRY ORDDominique PAGE Performing Organization Address City/[facility] Co de Phone Number [facility] [address] [place] [address] * (ABNORMAL) BASIC METABOLIC PANEL (CALCIUM TOTAL) (09/28/2023 9:09 AM TELESALES AGENT) Glucose 169(H) 70 - 99 mg/dL [facility] [...] [facility] INSURANCE BILL Comment:FASTING 09/28/2023 9:09 AM TELESALES AGENT 09/28/2023 Narrative Resulting Agency Comment Lab Testing performed at: [facility] [phone] Garry Tracey MD LAB - CHEMISTRY SERENA PAGE [facility] INSURANCE BILL [address] [place] [address] * (ABNORMAL) LIPID PROFILE (09/28/2023 9:09 AM TELESALES AGENT) Only the most recent of4 resultswithin the [...] obtained for this observation. 09/28/2023 9:09 AM TELESALES AGENT 09/28/2023 Narrative Resulting Agency Comment Lab Testing performed at: [facility] [phone] Garry Tracey MD LAB - CHEMISTRY SERENA PAGE [facility] Organization Address City/State/ZIP Co de Phone Number [facility] INSURANCE BILL [address] [place] [address] * PROC UROFLOWMETRY (09/25/2023 10:58 AM TELESALES AGENT) Santiago Tesfaye MA - 09/25/2023 10:58 AM TELESALES AGENT Santiago Rodgers MA 10/02/2023 7:37 AM Voiding time: 34.3s Flow time: 33.6s Time to peakflow: 12.5s Peak flowrate: 14.2ml/s Average flowrate: 6.7ml/s Intervals:2 Voided volume: 226ml Josy Davila DO PROCEDURE/MINOR CARABALLO RGICAL ORDERABLES * DE MSR PVR U&/BLADD CAPCTY US NON (09/25/2023 10:58 AM TELESALES AGENT) Santiago Tesfaye MA - 09/25/2023 10:58 AM TELESALES AGENT Santiago Rodgers MA 10/02/2023 7:37 AM [id number] Josy Davila DO PROCEDURE/MINOR CARABALLO RGICAL ORDERABLES * DE POLYSOM 6/>YRS CPAP 4/> PARM (09/02/2023 10:01 AM TELESALES AGENT) Marcelo Tucker MD - 09/02/2023 10:01 AM TELESALES AGENT Marcelo Lim MD 09/02/2023 10:02 AM [facility] Accredited by the [place] [employer] [facility], First Floor [address] [place] [address] Telephone : [phone] [employer] Medical Records Patient Name: Basilio iRley : 1960 Date of Study: 09/01/2023 Referring Physician: Dina Cloud PA-C Type of Montage: Respiratory Scoring System: [facility] SPL[facility] N[facility] POLYSOMNOGRAM INTERPRETATION 09/01/2023 Procedure: The polysomnogram was performed with a vascular technologist in attendance. Frontal, central, and temporal [...] daily, Disp: , Rfl: Continuous Blood Gluc Leather Cartridge Belt Maker (Dexcom G7 Leather Cartridge Belt Maker) SHANE, Use 1 kit as directed, Disp: 1 Each, Rfl: 0 Continuous Blood Gluc Sensor (Dexcom G7 Sensor) [facility], Use 1 Each every 10 days, Disp: [...] 4 vitamin D, ergocalciferol, (DRISDOL) 1.25 MG (01875 UT) capsule, Take 1 (one) capsule by [...] total diagnostic sleep time. Snoring Profile: Frequent, [id number] snoring was detected during this study. Periodic [...] dental evaluation for bruxism Marcelo Lim MD, [facility], [facility], [facility] Bottle Capper, [facility] Professor of Internal Medicine Adjunct Job Tracer of Neurology Division of Pulmonary, Critical Care, and Sleep Medicine [facility] This note was electronically signed on 09/02/2023. Amie A Dettenmeier APNP-EXTENSION SERVICE SPECIALIST IN CHARGE PROCEDUR E/MINOR SURGICAL ORDERABLES * ECHO COMPLETE (07/03/2023 10:51 AM TELESALES AGENT) BSA 2.3441809 m2 [facility] CV FUJ I PACS LV [...] F UJI PACS IVS/LVPW 1.168 [facility] CV FUJ I PACS LV mass 2D 288.551 96 [...] LA vol BP 36.449 mL SSM CV FUJ I PACS LVOT pk andrei 1.00 m/s [...] PACS RA area 13.29 cm2 SSM CV [facility] I PACS AV mn grad 4 mmHg SSM CV FU JI PACS AV pk grad 5 mmHg SSM CV FU JI PACS AV mn andrei 0.94 m/s [facility] CV [facility] I PACS AV pk andrei 1.14 m/s [facility] CV [facility] I PACS AV VTI 19.431 cm [facility]SM CV [facility] I PACS LVOT pk grad 4.033 mmHg SSM CV FUJI PACS LVOT VTI 15.469 cm SSM CV [facility] I PACS AV area cont VTI 3.5 cm2 SSM CV FUJI PACS AV area pk andrie 3.9 cm2 SSM C V FUJI PACS [...] Index 16 ml/m2 SSM CV FUJI PACS [id number] 6.965 cm SSM CV FUJ I PACS [id number] 6.988 cm SSM CV FUJ I PACS Prox Asc Ao Diameter Index 1.611 cm SSM CV FUJI PACS LA Size 4.013 cm SSM CV FUJ I PACS LVIDs index 1.10 1.3 - 2.1 cm/m2 SSM CV FUJI PACS LV LVIDd index 1.60 2.2 - 3.0 cm/m2 SSM CV FUJI PACS Anatomical Region Laterality Modality Ultrasound Narrative 07/03/2023 12:39 PM TELESALES AGENT Left Ventricle: Left ventricle size is normal. [...] Implant Device Check (Office) (07/03/2023 10:43 AM TELESALES AGENT) Narrative Morris Jones APRN-CNP - 07/03/2023 10:43 AM TELESALES AGENT Morris Jones APRN-CNP 07/03/2023 10:48 AM Basilio Riley presented to device clinic for follow up of the patient's Pacemaker. Interrogation was performed with results as follows: Device: Medtronic Retreat Mode: AAI-DDD Presenting EGM: SR Battery: 2.98 [...] None Impression: Normal Device Function. Appropriate. Basilio Rliey will follow up with a remote check in 3 months and a follow-up in device clinic in 6 months. Thank you for allowing me to participate in the care of your patient. If you have any questions or concerns please do not hesitate to contact me. Morris Jones APRN-EXTENSION SERVICE SPECIALIST IN CHARGE PROCEDURE/VA NOR SURGICAL ORDERABLES * CT CHEST WO CONT AND HIRES (06/18/2023 12:21 PM TELESALES AGENT) Anatomical Region Laterality Modality Chest Computed Tomogra phy 06/18/2023 3:54 PM TELESALES AGENT Impressions 06/18/2023 11:48 PM TELESALES AGENT Impression: 1.Mild peripheral groundglass in both lungs predominantly in the lower lobes could represent desquamative interstitial pneumonia. No reticulations or bronchiectasis. No air trapping. > Dictated by Janet Mills DO (vice president of talent management). I, Perico Fermin MD have personally reviewed and interpreted this examination/study. > Interpreting Provider: Perico Fermin MD on 06/18/2023 11:48 PM Narrative 06/18/2023 11:48 PM TELESALES AGENT PROCEDURE: CT CHEST STU MORALES, DATE/TIME OF EXAM: 06/18/2023 12:23 PM, LOCATION [facility] INDICATION: R93.89: Abnormal CT of the chest [...] Fermin MD - 06/18/2023 PROCEDURE: CT CHEST WO PRETTY AND MELL, DATE/TIME OF EXAM: 06/18/2023 12:23 PM, LOCATION [facility] INDICATION: R93.89: Abnormal CT of the chest [...] trapping. > Dictated by Janet Mills DO (vice president of talent management). I, Perico Fermin MD have personally reviewed and interpreted this examination/study. > Interpreting Provider: Perico Fermin MD on 06/18/2023 11:[address] MD [address] ORDERABLES * Complete PFT w/wo Bronchodilator [facility] PFT Lab (06/18/2023 11:59 AM TELESALES AGENT) Impressions Argenis Sadler MD - 06/18/2023 11:59 AM TELESALES AGENT [facility] DEPARTMENT OF PULMONARY, CRITICAL CARE, AND SLEEP [...] of Pulmonary, Critical Care and Sleep Medicine [facility] I have personally reviewed pulmonary function test data and finding. I concur with fellow's note. MD Kiara Aldana Setu K, MD - 06/18/2023 11:59 AM TELESALES AGENT Hay Amezquita MD 06/19/2023 4:10 PM Becca Ford MD RESPIRATORY THERAPY ORDERABLES * DE PM DEVICE INTERROGATE REMOTE, DE PM/ICD REMOTE TECH SERV (05/23/2023 6:27 PM [...] * PROC UROFLOWMETRY (05/21/2023 9:54 AM CDT) Narrative Jazmine Dennis MA - 05/21/2023 9:54 AM CDT Jazmine Dennis MA 05/21/2023 9:55 AM Voiding Time T100 50.5 s Flow Time TQ 46.2 s Time to max Flow TQmax 12.9 s Max Flow Rate Qmax 21.5 Ml/s Average Flow Rate Qave 6.2Ml/s Intervals 5 Voided Volume Vcomp 285 ml [facility] PROCEDURE/MINOR CARABALLO RGICAL ORDERABLES * DE MSR PVR U&/BLADD CAPCTY US NON (05/21/2023 9:39 AM CDT) Narrative Jazmine Dennis MA - 05/21/2023 9:39 AM CDT Jazmine Dennis MA 05/21/2023 9:39 AM Bladder scan completed. 94ml post void residual. Josy [facility] PROCEDURE/MINOR CARABALLO RGICAL ORDERABLES * HEMOGLOBIN A1C - POINT OF CARE (AMB) [facility] (04/02/2023 9:16 AM CDT) Only the most recent of4 resultswithin the time period is included. [facility] Signature Hemoglobin A1c POCT 7.4 % [address] BLOOD SPECIMEN / Unknown 04/02/2023 9:16 AM CDT Garry Tracey MD LAB - POINT OF CARE ORDERABLES Performing Organization Address [facility]/State/ZIP Co de Phone Number [address] [place] [address], [place] [address], [facility] [phone] * DE PM/ICD REMOTE TECH SERV, DE PM DEVICE INTERROGATE REMOTE (01/31/2023 12:45 AM CDT) Narrative Chari Parada MD - 01/31/2023 12:45 AM CDT Chari Parada MD 01/31/2023 12:52 AM Basilio Riley underwent remote monitoring for his PPM. Interrogation was performed with results as follows: Device: Medtronic PPM Mode: AAI-DDD Battery: 2.98 Volts; Estimated longevity 4.5 years Percent Paced: Total SOLAR PANEL INSTALLATION SUPERVISOR 0.1% (MVP On) -VS 99.9% -SOLAR PANEL INSTALLATION SUPERVISOR < 0.1% AP-VS < 0.1% AP-SOLAR PANEL INSTALLATION SUPERVISOR < 0.1% Sensing: P-waves 3.8 mV; [...] hesitate to contact me. Chari Parada MD PROCEDURE/VA NOR SURGICAL ORDERABLES * DE CYSTOURETHROSCOPY (01/15/2023 4:28 PM CDT) Narrative Josy Davila, - 01/15/2023 4:28 PM CDT Josy Davila, 01/15/2023 4:36 PM DOS: 01/16/2024 CT reviewed [...] Davila DO PROCEDURE/MINOR CARABALLO RGICAL ORDERABLES * DE MSR PVR U&/BLADD CAPCTY US NON (01/15/2023 12:18 PM CDT) Josy Almaguer DO - 01/15/2023 12:18 PM CDT Catalina Naranjo LPN 01/15/2023 12:19 PM PVR = 13 mL Josy Davila DO PROCEDURE/MINOR CARABALLO RGICAL ORDERABLES * DE ELECTRO-UROFLOWMETRY, FIRST (01/15/2023 12:13 PM CDT) Josy Almaguer DO - 01/15/2023 12:13 PM CDT Catalina Naranjo LPN 01/15/2023 12:17 PM Voiding Time: 31.3 s Flow Time: 26.8 s Time to Peakflow: 11.1 s Peak flowrate: 27.4 mL/s Average flowrate: 16.3 mL/s Intervals: 2 Voided volume: 436 mL oJsy Davila DO PROCEDURE/MINOR CARABALLO RGICAL ORDERABLES * CT ABDOMEN PELVIS WWO CONTRAST (01/15/2023 8:41 AM CDT) Anatomical Region Laterality Modality Abdomen, Pelvis Computed Tomogra phy 01/15/2023 10:0 6 AM CDT Narrative 01/15/2023 10:33 AM CDT PROCEDURE: CT ABDOMEN PELVIS WWO CONTRAST, DATE/TIME OF EXAM: 01/15/2023 8:41 AM, LOCATION [facility] INDICATION: N50.819: Testicular pain, unspecified R30.9: Painful [...] CONTRAST, DATE/TIME OF EXAM:01/15/2023 8:41 AM, LOCATION [facility] INDICATION: N50.819: Testicular pain, unspecified R30.9: Painful [...] - 1.20 mg/dL 01/15/2023 8:27 AM CDT [facility] eGFR 79(L) >=90 mL/min/1.7 3 m2 01/15/2023 8:27 AM CDT [facility] Blood BLOOD SPECIMEN / Unknown 01/15/2023 8:17 AM CDT 01/15/2023 8:27 AM CDT Josy Bermudez Lola LAB - POINT OF CAR E ORDERABLES [facility] [address] [phone] * DE PM DEVICE PROGR EVAL SNGL (01/01/2023 9:48 [...] PERIPHERAL NEUROPATHY PANEL (12/30/2022 2:45 PM CDT) Peripheral Neuropathy Panel See Scanned Report 01/25/2023 10:36 AM CDT [facility] Blood BLOOD SPECIMEN / Unknown Lab Venipuncture / Unknown 12/30/2022 2:45 PM CDT 12/30/2022 3:13 PM CDT Meredith Weiss MD LAB - SEROLOGY ORDER YADIRA [facility] [phone] * DE INJECT NERV BLCK,ILIOINGU/ILIOHYP (11/26/2022 10:32 AM CDT) Narrative Josy Davila DO - 11/26/2022 10:32 AM CDT Josy Davila DO 11/26/2022 10:47 AM DOS: 11/26/2022 Procedure: spermatic cord block, illiohypogastric nerve block [id number]- bilateral The left testicle was tender to [...] Document LAB - PATHOLOGY/CYTO LOGY ORDERABLES * DE BLDR INSTLJ ANTICARCINOGENIC AGT (10/01/2022 10:32 AM TELESALES AGENT) Narrative Josy Davila DO - 10/01/2022 10:32 AM TELESALES AGENT Josy Davila DO 10/01/2022 10:34 AM DOS: [...] and see if symptoms improve. Josy Davila, 10/01/2022 10:32 AM Josy Juarezo DO PROCEDURE/MINOR CARABALLO RGICAL ORDERABLES * DE IRRIGATION OF BLADDER (09/17/2022 11:07 AM TELESALES AGENT) Narrative Josy Davila, DO - 09/17/2022 11:07 AM TELESALES AGENT Josy Davila, DO 09/17/2022 11:24 AM DOS: 09/17/2022 DOS: [...] and see if symptoms improve. Josy Davila, DO 09/17/2022 11:08 AM Josy Juarezo DO PROCEDURE/MINOR CARABALLO RGICAL ORDERABLES * DE PM DEVICE INTERROGATE REMOTE, DE PM/ICD REMOTE TECH SERV (08/19/2022 4:36 PM TELESALES AGENT) Narrative Reid Da Silva MD - 08/19/2022 4:36 PM TELESALES AGENT Reid Da Silva MD 08/19/2022 4:40 PM [...] * URINE CULTURE (EXTERNAL RESULT ENTRY) (12/26/2021) Urine Culture (EXTERNAL) none Urine URINE / Unknown 12/26/2021 Historical Provider LAB - MICROBIOLOG Y ORDERABLES * URINALYSIS (EXTERNAL RESULT ENTRY) (12/26/2021) pH UA (EXTERNAL RESULT) 5.5 Specific [place] Urine (EXTERNAL RESULT) 1.028 Protein UA (EXTERNAL RESULT) 1+ Blood UA (EXTERNAL RESULT) Negative Nitrite UA (EXTERNAL RESULT) Negative RBC UA (EXTERNAL RESULT) none /HPF WBC UA (EXTERNAL RESULT) 0-5 /HPF Leukocyte Esterase (EXTERNAL RESULT) Bacteria UA (EXTERNAL RESULT) none Urine URINE / Unknown 12/26/2021 Historical Provider LAB - CHEMISTRY O RDERABLES * CREATININE RAND UR (EXTERNAL RESULT ENTRY) (12/26/2021) Creatinine Random Urine (EXTERNAL RESULT) 113.4 mg/dl Urine URINE / Unknown 12/26/2021 Historical Provider LAB - CHEMISTRY O RDERABLES * PTH (EXTERNAL RESULT ENTRY) (12/26/2021) PTH Intact (EXTERNAL RESULT) 78 pg/ml Blood BLOOD SPECIMEN / Unknown 12/26/2021 Historical Provider LAB - CHEMISTRY O RDERABLES * VITAMIN D HYDROXY (EXTERNAL RESULT) (12/26/2021) Vitamin D Hydroxy (External Result) 36.1 Blood 12/26/2021 Historical Provider LAB - CHEMISTRY O RDERABLES * COMP MET PANEL (EXTERNAL RESULT ENTRY) (12/26/2021) Glucose (EXTERNAL) 273 mg/dL Sodium (EXTERNAL RESULT) [...] * LIPID PROFILE (EXTERAL RESULT ENTRY) (12/26/2021) Cholesterol (EXTERNAL RESULT) 90 mg/dL Triglycerides (EXTERNAL RESULT) 611 mg/dL HDL (EXTERNAL RESULT) 23 mg/dL LDL (EXTERNAL RESULT) unable to calculate mg/dL VLDL (EXTERNAL RESULT) unable to calculate mg/dL Chol HDL Ratio (External Result) Blood BLOOD SPECIMEN / Unknown 12/26/2021 Historical Provider LAB - CHEMISTRY O RDERABLES * HEMOGLOBIN A1C (EXTERNAL RESULT ENTRY) (12/26/2021) Hemoglobin A1c (EXTERNAL RESULT) 9.0 % Blood BLOOD SPECIMEN / Unknown 12/26/2021 Historical Provider LAB - CHEMISTRY O RDERABLES * DE INTMD WND REPAIR FACE,FACIAL <2.5CM, DE EXC SKIN BENIG 1.1-2CM FACE,FACIAL (12/16/2021 6:43 [...] Howell MD PROCEDURE/MINOR SURG ICAL ORDERABLES * DE DESTR MALIG TRUNK,EXTREM 1.1-2 CM (12/16/2021 6:42 [...] Implant Device Check (Office) (10/07/2021 12:28 PM TELESALES AGENT) Narrative Laina Barclay APRN-CNP - 10/07/2021 12:28 PM TELESALES AGENT Laina Barclay APRN-CNP 10/07/2021 12:39 PM Basilio [...] Laina RODGERS PROCEDURE/MINOR S URGICAL ORDERABLES * DE TANGNTL BX SKIN EA SEP ADDL, DE TANGNTL BX SKIN EA SEP ADDL, DE TANGNTL BX SKIN SINGLE LES (09/13/2021 12:21 PM TELESALES AGENT) Narrative Robb Howell MD - 09/13/2021 12:21 PM TELESALES AGENT Betty Gilmore DO 09/13/2021 12:22 PM Risks, [...] a patient labeled container and sent to [facility] Dermatopathology. Patient agrees to phone call for results and message if not available. Betty Gilmore DO Robb Howell MD PROCEDURE/MINOR SURG ICAL ORDERABLES * DE CYSTOURETHROSCOPY (03/10/2021 7:46 PM CDT) Narrative Annie [...] exam of the bladder PLAN: FU PRN ANA MARIA Almanzar Annie RODGERS PROCEDURE/MIN OR SURGICAL ORDERABLES * TESTOSTERONE TOTAL FEM/CHLD HYPOGNDL MALE (02/28/2021 9:45 AM CDT) Testosterone Total LC-MS 269.1 264.0 - 916.0 ng/dL [employer] INSURANCE BILL Comment: This [facility] LC/MS-MS method is currently certified by the CDC Hormone Standardization Program (HoSt). Adult male reference interval is based on a population of healthy nonobese males (BMI <30) between 19 and 39 years old. Shannan, et.al. JCEM 2017,102;8489-7375. PMID: 48105825. This test was developed and its performance characteristics determined by [employer]. It has not been cleared or approved by the Food and Drug Administration. FASTING 02/28/2021 9:45 AM CDT 02/28/2021 Narrative Resulting Agency Comment Lab Testing performed at: [facility] [phone] Annie RODGERS LAB - HYDRAULIC AND PLUMBING INSTALLER RY ORDERABLES [facility] INSURANCE BILL [address] [place] [address] * CARDIAC EKG ORDER (07/11/2020 11:45 AM TELESALES AGENT) Narrative 07/11/2020 11:45 AM TELESALES AGENT Ordered by an unspecified provider. Scanned Document CARDIAC SERVICES ORD ERABLES * (ABNORMAL) GLUCOSE - POINT OF CARE (07/10/2020 4:26 PM TELESALES AGENT) Glucose WB/POC 216(H) 70 - 115 mg/dL 07/10/2020 4:54 PM TELESALES AGENT [facility] Specimen Type Arterial/C apillary 07/10/2020 4:54 PM TELESALES AGENT [facility] Blood BLOOD SPECIMEN / Unknown 07/10/2020 4:26 PM TELESALES AGENT 07/10/2020 4:54 PM TELESALES AGENT Eloina Phillips MD LAB - POINT OF CARE ORDERABLES [facility] [address] [place] [address], [facility] [phone] * XR CHEST 1VW PORTABLE (07/10/2020 4:22 PM TELESALES AGENT) Anatomical Region Laterality Modality Chest Radiographic Veronica ging 07/10/2020 4:25 PM TELESALES AGENT Impressions 07/11/2020 8:20 AM TELESALES AGENT IMPRESSION: No acute pulmonary process. Cardiac device as above. Dictated by Janet Mills DO (vice president of talent management). I, Dr. TOMMIE STORY MD have personally reviewed and interpreted this examination/study. This report was electronically signed by TOMMIE STORY MD on 07/11/2020 8:20 AM . Narrative 07/11/2020 8:20 AM TELESALES AGENT ORDER DATE: 07/10/2020 4:22 PM EXAMINATION: XR [...] as above. Dictated by Janet Mills DO (vice president of talent management). I, Dr. TOMMIE STORY MD have personally reviewed and interpreted this examination/study. This report was electronically signed by TOMMIE STORY MD on07/11/2020 8:20 AM . Amandeep Parker MD DIAGNOSTIC IMAGING O RDERABLES * PTT [facility] (07/10/2020 3:50 PM TELESALES AGENT) APTT 27.8 23.0 - 38.4 Seconds 07/10/2020 4:14 PM TELESALES AGENT [facility] Comment:Suggested therapeuti c range for full dose I.V. unfractionated heparin therapy for venous thromboembolism is 71 to 109 seconds. Blood BLOOD SPECIMEN / Unknown Venipuncture / Unknown 07/10/2020 3:50 PM TELESALES AGENT 07/10/2020 4:05 PM TELESALES AGENT Amandeep Parker MD LAB - COAGULATION OR DERABLES Performing Organization Address [facility]/State/ZIP Co de Phone Number [facility] [address] [place] [address], [facility] [phone] * PT-INR [facility] (07/10/2020 3:50 PM TELESALES AGENT) PT 12.9 12.1 - 14.8 Seconds 07/10/2020 4:21 PM TELESALES AGENT [facility] INR 1.0 See Comment 07/10/2020 4:21 PM TELESALES AGENT [facility] Comment:The suggested therap eutic range for standard coumadin (warfarin) therapy is an INR of 2.0-3.0. For high-risk patients (Mechanical Mitral Valve Prosthesis, etc.), the suggested prophylactic therapeutic range is an INR of 2.5-3.5. Blood BLOOD SPECIMEN / Unknown Venipuncture / Unknown 07/10/2020 3:50 PM TELESALES AGENT 07/10/2020 4:05 PM TELESALES AGENT Amandeep Parker MD LAB - COAGULATION OR DERABLES [address] [address], [facility] [phone] * TROPONIN I (07/10/2020 3:50 PM TELESALES AGENT) [facility] Troponin I 0.015 <0.032 ng/mL 07/10/2020 4:28 PM [facility] Blood BLOOD SPECIMEN / Unknown Venipuncture / Unknown 07/10/2020 3:50 PM TELESALES AGENT 07/10/2020 3:53 PM TELESALES AGENT Amandeep Parker MD LAB - CHEMISTRY ORDE RABLES Performing Organization Address City/[facility]/ZIP Co de Phone Number [address] [address], [facility] [phone] * (ABNORMAL) DIFFERENTIAL MANUAL (07/10/2020 3:50 PM TELESALES AGENT) [facility] WBC (corrected for NRBC) 15.9 10 3/uL 07/10/2020 4:45 PM [facility] Total Cell Count 100 07/10/2020 4:45 PM [facility] Neutrophils Absolute Manual 10.97(H) 1.60 - 7.00 10 3/uL 07/10/2020 4:45 PM [facility] Comment:(BANDS+SEGS) x WBC = NEUT # (ANC) Lymphocyte Absolute Manual 3.66(H) 0.80 - 2.90 10 3/uL 07/10/2020 4:45 PM [facility] Monocytes Absolute Manual 1.11(H) 0.14 - 0.66 10 3/uL 07/10/2020 4:45 PM [facility] Eosinophils Absolute Manual 0.16 0.00 - 0.22 10 3/uL 07/10/2020 4:45 PM [facility] Neutrophil % Manual 69(H) 30 - 60 % 07/10/2020 4:45 PM [facility] Lymphocyte % Manual 23 20 - 45 % 07/10/2020 4:45 PM [facility] Monocytes % Manual 7 2 - 10 % 07/10/2020 4:45 PM [facility] Eosinophils % Manual 1 1 - 6 % 07/10/2020 4:45 PM [facility] Platelet Estimate Adequate Adequate 07/10/2020 4:45 PM [facility] RBC Morphology Normal 07/10/2020 4:45 PM [facility] Blood BLOOD SPECIMEN / Unknown Venipuncture / Unknown 07/10/2020 3:50 PM TELESALES AGENT 07/10/2020 3:53 PM TELESALES AGENT Amandeep Parker MD LAB - HEMATOLOGY ORD ERABLES [address] [address], [facility] [phone] * B-TYPE NATRIURETIC PEPTIDE (07/10/2020 3:50 PM TELESALES AGENT) [facility] BNP <10 See Comment pg/mL 07/10/2020 4:28 PM [facility] Comment: A decision threshold of 100 pg/mL [...] Unknown Venipuncture / Unknown 07/10/2020 3:50 PM TELESALES AGENT 07/10/2020 3:53 PM TELESALES AGENT Amandeep Parker MD LAB - CHEMISTRY ORDDominique PAGE [facility] [address] [place] [address], [place] [phone] * (ABNORMAL) COMPREHENSIVE METABOLIC PANEL (07/10/2020 3:50 PM TELESALES AGENT) BUN 39(H) 7 - 26 mg/dL 07/10/2020 4:24 PM [facility] Creatinine 1.5(H) 0.6 - 1.2 mg/dL 07/10/2020 4:24 PM [facility] Sodium 138 136 - 145 mmol/L 07/10/2020 4:24 PM [facility] Potassium 4.6(H) 3.5 - 4.5 mmol/L 07/10/2020 4:24 PM [facility] Chloride 100 98 - 107 mmol/L 07/10/2020 4:24 PM [facility] CO2 25 22 - 29 mmol/L 07/10/2020 4:24 PM [facility] Glucose 275(H) 70 - 115 mg/dL 07/10/2020 4:24 PM [facility] Calcium 11.1(H) 8.4 - 10.2 mg/dL 07/10/2020 4:24 PM [facility] Protein Total 8.7(H) 6.0 - 8.3 g/dL 07/10/2020 4:24 PM [facility] Albumin 4.1 3.4 - 5.0 g/dL 07/10/2020 4:24 PM [facility] Bilirubin Total 0.3 0.2 - 1.2 mg/dL 07/10/2020 4:24 PM [facility] Alkaline Phosphatase 134 40 - 150 Units/L 07/10/2020 4:24 PM [facility] ALT 17 0 - 55 Units/L 07/10/2020 4:24 PM [facility] AST 12 5 - 34 Units/L 07/10/2020 4:24 PM [facility] Anion Gap 18 8 - 18 07/10/2020 4:24 PM [facility] BUN/Creatinine Ratio 26(H) 7 - 23 07/10/2020 4:24 PM [facility] Osmolality Calculated 305(H) 270 - 300 mOsm/kg 07/10/2020 4:24 PM [facility] Albumin/Globulin Ratio 0.9(L) 1.1 - 2.3 07/10/2020 4:24 PM [facility] eGFR 48(L) >60 mL/min/1.7 3 m2 07/10/2020 4:24 PM [facility] Blood BLOOD SPECIMEN / Unknown Venipuncture / Unknown 07/10/2020 3:50 PM TELESALES AGENT 07/10/2020 3:53 PM TELESALES AGENT Amandeep Parker MD LAB - CHEMISTRY SERENA PAGE Performing Organization Address [facility]/ZIP Co de Phone Number [address] [address], [facility] [phone] * PHOSPHORUS BLOOD (07/10/2020 3:50 PM TELESALES AGENT) Phosphorus 3.0 2.3 - 4.7 mg/dL 07/10/2020 4:24 PM TELESALES AGENT [facility] Blood BLOOD SPECIMEN / Unknown Venipuncture / Unknown 07/10/2020 3:50 PM TELESALES AGENT 07/10/2020 3:53 PM TELESALES AGENT Amandeep Parker MD LAB - CHEMISTRY SERENA PAGE Performing Organization Address [facility] Co de Phone Number [address] [address], [facility] [phone] * MAGNESIUM BLOOD (07/10/2020 3:50 PM TELESALES AGENT) Magnesium 2.1 1.6 - 2.6 mg/dL 07/10/2020 4:24 PM TELESALES AGENT [facility] Blood BLOOD SPECIMEN / Unknown Venipuncture / Unknown 07/10/2020 3:50 PM TELESALES AGENT 07/10/2020 3:53 PM TELESALES AGENT Amandeep Parker MD LAB - CHEMISTRY SERENA PAGE Performing Organization Address [facility]/ZIP Co de Phone Number [address] [address], [facility] [phone] * XR LUMBAR SPINE 2 OR 3VW (12/13/2018 11:06 AM CDT) Anatomical Region Laterality Modality Spine Radiographic Veronica ging 12/13/2018 11:1 0 AM CDT Impressions 12/13/2018 1:24 PM CDT IMPRESSION: 1.No acute fracture or compression deformity. 2.Status post kyphoplasty/vertebroplasty of L3 with approximately 25 percent residual vertebral body height loss. 3.Multiple degenerative changes, most severe at L4-S1. Report dictated by Judd Sanchez DO (vice president of talent management). Dr. UZMA Zhao have personally reviewed and interpreted this [...] L4-S1. Report dictated by Judd Sanchez DO (vice president of talent management). Dr. UZMA Zhao have personally reviewed and interpreted this examination/study. This report was electronically signed by UZMA BIGGS on 12/13/2018 1:24 PM . Jamia Esteves MD DIAGNOSTIC IMAGING O RDERABLES * XR SPINE ENTIRE 2 OR 3VW (09/23/2018 1:36 PM TELESALES AGENT) Anatomical Region Laterality Modality Radiographic Veronica ging 09/23/2018 2:54 PM TELESALES AGENT Impressions 09/24/2018 3:41 PM TELESALES AGENT IMPRESSION: 1.Inadequately visualized cervical spine. The visualized upper cervical levels are grossly unremarkable. 2.Mild thoracic levoscoliosis. 3.Redemonstrated degenerative lumbar disc/joint disease. This report was approved by Robson Dumont on 09/24/2018 3:41 PM . I, Dr. NAYE HUNT have personally reviewed and interpreted this examination/study. This report was electronically signed by NAYE HUNT on 09/24/2018 3:41 PM . Narrative 09/24/2018 3:41 PM TELESALES AGENT EXAMINATION: Entire spine series, 2 or 3 [...] with back pain status post L4-L5 and L5-T2wqcqr block and L3 vertebroplasty COMPARISON: Lumbar CT [...] Palomares M.D. on 05/17/2018 9:[address] BARB Zhao have personally reviewed and interpreted this [...] Patricia Palomares M.D. on 05/17/20189:[address] BARB Zhao have personally reviewed and interpreted this [...] Sadaf Mercedes M.D. on 11/17/20179:[address] ASHLEY Zhao M.D. have personally reviewed and interpreted this examination/study. This report was electronically signed by ASHLEY HERNANDEZ M.D. on 11/17/2017 5:34 PM . Clary Burgess MD IR ORDERABLES * CT ANGIO BRAIN AND NECK (08/10/2017 9:23 AM TELESALES AGENT) Anatomical Region Laterality Modality Head Other Impressions 08/10/2017 11:22 AM TELESALES AGENT IMPRESSION: 1. No acute intracranial hemorrhage. 2. [...] Esquivel MD on 08/10/2017 10:[address] KENAN Zhao M.D. have personally reviewed and interpreted this examination/study. This report was electronically signed by KENAN MATTHEW M.D. on 08/10/2017 11:22 AM . Narrative 08/10/2017 11:22 AM TELESALES AGENT EXAMINATION: 1. Computed tomographic (CT) angiography of [...] Esquivel MD on 08/10/2017 10:[address] KENAN Zhao M.D. have personally reviewed and interpreted thisexamination/study. This report was electronically signed by KENAN MATTHEW M.D. on 08/10/201711:22 AM . Carlos Delgado MD CT ORDERABLES * (ABNORMAL) CREATININE BLOOD - POCT (IP) [facility] (08/10/2017) Creatinine POCT 1.77(A) 0.3 - 1.3 mg/dL [facility] eGFR POCT 43(A) 60 ml/min [facility] 08/10/2017 Carlos Delgado MD LAB - POINT OF CARE ORDERABLES Performing Organization Address City/State/[facility] Co de Phone Number [address] * [place] MYELOGRAM LUMBAR (07/20/2017 2:19 PM TELESALES AGENT) Anatomical Region Laterality Modality Spine Other Impressions 07/20/2017 3:26 PM TELESALES AGENT IMPRESSION: 1. Successful lumbar myelogram under fluoroscopic guidance at L3-L4. This report was approved by Jose Urias on 07/20/2017 2:[address] KENAN Zhao M.D. have personally reviewed and interpreted this examination/study. This report was electronically signed by KENAN MATTHEW M.D. on 07/20/2017 3:26 PM . Narrative 07/20/2017 3:26 PM TELESALES AGENT EXAMINATION: Lumbar myelogram HISTORY: radiculopathy TECHNIQUE: The [...] at L3-L4. This report was approved by [facility] on 07/20/2017 2:53 PM . I, Dr. KENAN MATTHEW M.D. have personally reviewed and interpreted thisexamination/study. This report was electronically signed by KENAN MATTHEW M.D. on 07/20/20173:26 PM . Clary Burgess MD FLUOROSCOPY ORDERABL ES * CT LUMBAR POST MYELOGRAM (07/20/2017 2:15 PM TELESALES AGENT) Anatomical Region Laterality Modality Other Impressions 07/20/2017 3:26 PM TELESALES AGENT IMPRESSION: 1. Degenerative disease of the lower lumbar spine with moderate to severe central canal stenosis at L4-L5 and L5-S1. This report was approved by Jose Urias on 07/20/2017 3:25 PM . I, Dr. KENAN MATTHEW M.D. have personally reviewed and interpreted this examination/study. This report was electronically signed by KENAN MATTHEW M.D. on 07/20/2017 3:26 PM . Narrative 07/20/2017 3:26 PM TELESALES AGENT EXAMINATION: Computed tomography (CT) of the lumbar [...] L5-S1. This report was approved by Jose Banner on 07/20/2017 3:25 PM . I, Dr. KENAN MATTHEW M.D. have personally reviewed and interpreted thisexamination/study. This report was electronically signed by KENAN MATTHEW M.D. on 07/20/20173:26 PM . Clary Burgess MD CT ORDERABLES * (ABNORMAL) GLUCOSE ACCUCHECK (07/20/2017 10:19 AM TELESALES AGENT) Glucose, Fingerstick 139(H) 70-115mg/d L mg/dL Alvaro GODFREY (CATHLEEN) Comment:Regional Business Development Manager: MARANDA KIM 07/20/2017 10:1 9 AM TELESALES AGENT Clary Burgess MD LAB - CHEMISTRY SERENA PAGE [facility] Organization Address City/State/ZIP Co de Phone Number DELORES WARD) * XR LUMBAR SPINE 4VW OR MORE (06/18/2017 2:50 PM TELESALES AGENT) Anatomical Region Laterality Modality Spine Other Impressions 06/25/2017 7:40 AM TELESALES AGENT IMPRESSION: Patient is status post L3 vertebroplasty. [...] are normal. Dictated by Perri Dey MD (vice president of talent management). IDr. ELEUTERIO MD have personally reviewed and interpreted this examination/study. This report was electronically signed by ELEUTERIO GRIMALDO MD on 06/25/2017 7:40 AM . Narrative 06/25/2017 7:40 AM TELESALES AGENT EXAMINATION: XR SPINE LUMBAR 4 VW MIN [...] joints arenormal. Dictated by Perri Dey MD (vice president of talent management). Dr. ELEUTERIO Zhao MD have personally reviewed and interpreted thisexamination/study. This report was electronically signed by ELEUTERIO GRIMALDO MD on 06/25/20177:40 AM . Clary Burgess MD DIAGNOSTIC IMAGING O RDERABLES Care Teams Top Distribution Executive Relationship Specialty Start Date End Date Dina Cloud PA-C [address] [place] [phone] PCP - General Physician Physics Faculty Member 07/10/20
--- OUTSIDE RECORDS SUMMARY | 2024-10-17 09:50 | XMS_ITS | Clinical Summary ---
Author Organization [facility] Address [address] [place] [address] Care Team Providers Care Third Steel Pourer Name Role Phone Joseph Ann MD Unavailable [phone] Chai Junior MD Unavailable Dina Cloud PA-C Primary Care Provider [phone] Allergies Active Allergy Reactions Criticality Noted Date [...] daily. 0 Active vitamin D2, ergocalciferol , 20974 UNITS capsule TK ONE C PO Q [...] cream 1 Active Lancets (ONETOUCH DELICA PLUS [id number]) Misc Inject 1 each into the skin. [...] artery stenosis 12/15/2017 SSS (sick sinus syndrome) ([facility]) 11/02 Abnormal EKG 06/04/2016 Syncope and collapse 06/04/2016 Type 2 diabetes mellitus wit h complication, with long-term current use of insulin ([facility]) 05/21/2016 CVA (cerebral vascular accident) ([facility]) 05/21/2016 Sacroiliitis 09/04/2015 MRSA (methicillin resistant staph aureus) cultur e positive 08/15/2015 Nontraumatic compression fra cture of lumbosacral vertebra ([facility]) 07/13/2015 Lumbar compression fracture ([facility]) Impingement syndrome of right shoulder 5 Shoulder pain, right 05/08/2015 Hyperlipidemia Essential hypertension CAD (coronary artery disease) Family History Medical History Relation Comments Diabetes Father Hypertension Mother Stroke Mother [place] Paternal Grandfather Stroke Paternal Grandmother Relation Status [...] - Risk 60-74 years 1-dose series) 2021 Zoster Vaccines (2 of 2) 12/29/2021 11/03/2021 Hemoglobin A1C 02/16/2022 08/19/2021, 05/04, 12/18/2020, Additional history exists Lipid Panel 10/03/2022 10/03/2021, 02/01, 07/29/2018, Additional [...] this topic Medical Devices Implanted Type Area Twisting Operator Device Identifier Shelf Expiration Date Model / Serial / Lot Atrial Lead-09/23/2016 Implanted:09/23 by Chai Junior MD (Quantity not on file) Lead Implant [employer] 5076 CAPSUREFIX NOVUS / [id number] / Ventricular Lead-09/23/2016 Implanted:09/23 by Chai Junior MD (Quantity not on file) Lead Implant [employer] 5076 CAPSUREFIX NOVUS / [id number] / Medtronic Pacemaker-2016 Implanted:09/23 by Chai Junior MD (Quantity not on file) Pacemaker [employer] [id number] ADVI SA [address] STINSON / [id number] / Procedures Procedure Name Priority Date/Time Associated [...] the left lateral decubitus position, the Olympus [id number] colonoscope was introduced into the rectum and [...] Most Recently Relevant to Health Maintenance Insurance [facility] Advance Directives Documents on File Type Date Recorded Patient Core Blower Operator Expl anation Advance Directives and Living Will 06/22/2020 9:37 AM [facility] 2019 * Full Code (Latest Code Status on File) Date Activated Date Inactivated Comments 09/28/2017 9:22 AM 09/28/2017 3:24 PM Care Teams Third Steel Pourer Relationship Specialty Start Date End Date Dina Cloud PA-C [address] [place] [address] PCP - General NURSE PRACTITIONER 05/19/19 Joseph Ann MD [address] [address] [place] Sales Rep CARDIOVASCULAR DISEASE 01/02/16 Chai Junior MD [facility] [address] [place] [address] EP Sales Rep CARDIOVASCULAR DISEASE 09/03/16
--- OUTSIDE RECORDS SUMMARY | 2024-10-17 09:50 | XMS_ITS | Encounter Summary ---
Author Organization [facility] Address [address] [facility] [place] [address] Care Team Providers Care Shingle Catcher Name Role Phone Ramandeep Ann Primary Care Provider Dina CloudC Primary Care Provider Encounter Details Date Type Department Care Team (Late st Contact Info) Description 11/19/2017 Telephone [facility] [address] [place] [address] Jack Carnes, RN Social History [...] lower back about two years ago at [facility] , and he said he is not [...] Description 10/18/2024 1:00 AM CDT Clinical Support [facility] - Cardiology [address] [place] [phone] 10/25/2024 9:00 AM CDT [facility] [address] [place] [phone] Daily Bravo MD [address] [place] [address] 11/08/2024 3:40 PM CDT [facility] Endocr[facility] [address] [place] [phone] Garry Tracey MD [address] [place] [address] 2L [place] [phone] 01/17/2025 1:10 AM CDT Clinical Support [facility] - Cardiology [address] [place] [phone] 02/23/2025 4:00 PM CDT [facility] Pul[facility] [address] [place] [phone] Becca Ford MD [address] [place] [address] 2L [place] [address] 02/24/2025 9:10 AM CDT Office Visit [facility] - Dermatology [address] [place] [address], [place] [address] Robb Howell MD [address] [place] [address] [address]L [place] [address] 03/02/2025 9:00 AM CDT [facility]ph[facility] [address] [place] [address], [place] [address] Nataliia Cooper MD [address] [place] [address] 3L [place] [address] 04/04/2025 9:00 AM CDT Office Visit [facility] - Neurology [address] [place] [phone] Meredith Weiss MD [address] [place] [address] 1L [place] [phone] 04/18/2025 1:10 AM CDT Clinical Support [facility] - Cardiology [address] [place] [phone] 07/18/2025 1:10 AM DONOR SERVICES COORDINATOR Clinical Support [facility] - Cardiology [address] [place] [phone] documented as of this encounter Visit Diagnoses Not on filedocumented in this encounter Care Teams Shingle Catcher Relationship Specialty Start Date End Date Ramandeep Ann, DISTRIBUTION DRIVER-AUTO GARAGE ATTENDANT [address] [place] [phone] PCP - General 03/17/17 07/09/20 Dina Cloud PA-C [address] [place] [phone] PCP - General Physician Clerical Transcriber 07/10/20 documented as of this encounter
--- OUTSIDE RECORDS SUMMARY | 2024-10-17 09:50 | XMS_ITS | Encounter Summary ---
Author Organization [facility] Address [address] [facility] [place] [address] Care Team Providers Care Spoke Maker Name Role Phone Dina Cloud PA-C Primary Care Provider Reason for Visit * Reason Onset Date Comments Med Question 02/29/2024 Encounter Details Date Type Department Care Team (Late st Contact Info) Description 02/29/2024 Telephone [facility] - General Dermatology [address], [address] [place] [address] Robb Howell MD [address] [facility] 3 [place] [address] Med Question Social History Tobacco Use Types [...] before surgery that is scheduled for 03/16. eyeglass lens cutter is wanting to know when should pt stop taking medication. CB# [phone] documented in this encounter Plan of Treatment Upcoming Encounters Date Type Department Care Team (Late st Contact Info) Description 10/18/2024 1:00 AM CDT [facility] [address] [place] [phone] 10/25/2024 9:00 AM CDT Office Visit [facility] - Cardiology [address] [place] [phone] Daily Bravo MD [address] [place] [address] 11/08/2024 3:40 PM CDT Office Visit [facility] - Endocrinology [address] [place] [address], [place] [phone] Garry Tracey MD [address] [place] [phone] 01/17/2025 1:10 AM CDT Clinical Support [facility] - Cardiology [address] [place] [phone] 02/23/2025 4:00 PM CDT Office Visit [facility] - Pulmonology [address] [place] [address], [place] [address] Becca Ford MD [address] [place] [address] 2L DIV OF [place] [address] 02/24/2025 9:10 AM CDT Office Visit [facility] - Dermatology [address] [place] [address], [place] [address] Robb Howell MD [address] [place] [address] 3L [place] [address] 03/02/2025 9:00 AM CDT [facility] [address] [place] [address], [place] [address] Nataliia Cooper MD [address] [place] [address] 3L [place] [address] 04/04/2025 9:00 AM CDT Office Visit [facility] - Neurology [address] [place] [address], [place] [address] Meredith Weiss MD [address] [place] [address] 1L [place] [phone] 04/18/2025 1:10 AM CDT Clinical Support [facility] - Cardiology [address] [phone] 07/18/2025 1:10 AM BASEBALL SCOUT Clinical Support [facility] - Cardiology [address] [facility], [address] [phone] documented as of this encounter Visit Diagnoses Not on filedocumented in this encounter Care Teams Spoke Maker Relationship Specialty Start Date End Date Dina Cloud PA-C [address] [place] [address] PCP - General Physician Alining Inspector 07/10/20 documented as of this encounter
--- OUTSIDE RECORDS SUMMARY | 2024-10-17 09:50 | XMS_ITS | Encounter Summary ---
Author Organization [facility] Address [facility] [place] [address] Care Team Providers Care Mobile Phone Salesperson Name Role Phone Joseph Ann MD Unavailable [phone] Chai Junior MD Unavailable Kulwant Felix MD Primary Care Provider [phone] Annie Chavez MD Primary Care Provider [phone] Ramandeep Ann Primary Care Provider [phone] Dina Cloud PA-C Primary Care Provider [phone] Encounter Details Date Type Department Care Team (Late st Contact Info) Description 06/10/2017 Abstract [facility] AT [address] [address] Baudilio Sewell MA Social History Tobacco Use [...] PG pt send letter continue current meds NG MARKER documented in this encounter Plan of Treatment [...] MRSA 03/09/2017 03/09/2017 10/05/2018 12:4 0 PM LINING MARKER documented as of this encounter Care Teams Mobile Phone Salesperson Relationship Specialty Start Date End Date Kulwant Felix MD [address] [address] PCP - General 03/17/17 08/02/17 Annie Chavez MD [address] [address] PCP - General FAMILY PRACTICE 08/03/17 05/03/18 Ramandeep Ann FNP [address] [address] PCP - General NURSE PRACTITIONER 05/04/18 10/31/18 Dina Cloud PA-C [address] [place] [address] PCP - General NURSE PRACTITIONER 05/19/19 Joseph Ann MD [facility]. [address] [place] [address] [place] Off CARDIOVASCULAR DISEASE 01/02/16 Chai Junior MD [facility]. [address] [place], [place] [phone] EP Hooker Off CARDIOVASCULAR DISEASE 09/03/16 documented as of this encounter
--- OUTSIDE RECORDS SUMMARY | 2024-10-17 09:51 | XMS_ITS | Encounter Summary ---
Author Organization [facility] Address [address] [facility] [place] [address] Care Team Providers Care Middleware Developer Name Role Phone Dina Cloud PA-C Primary Care Provider Encounter Details Date Type Department Care Team (Late Contact Info) Description 01/13/2023 Telephone [facility] - Centralized Scheduling [address] [place] [phone] Nathalie Hassan M, OD [address] [facility] [place] [phone] Social History Tobacco Use Types Packs/Day Years [...] Department Care Team (Late Contact Info) Description 10/18/2024 1:00 AM CDT Clinical Support [facility] - Cardiology [address] [facility], [address] [address] 10/25/2024 9:00 AM CDT Office Visit [facility] - Cardiology 1034 [facility], [address] [phone] Daily Bravo MD [address] [place] [address] 11/08/2024 3:40 PM CDT [facility] [address] [place] [phone] Garry Tracey MD [address] [place] [address] 2L [place] [address] 01/17/2025 1:10 AM CDT Clinical Support [facility] - Cardiology [facility], [address] [phone] 02/23/2025 4:00 PM CDT Office [facility] Pulmon[facility] [address] [place] [phone] Becca Ford MD [address] [place] [address] 2L DIV [place] [address] 02/24/2025 9:10 AM CDT Office Visit [facility] - Dermatology [address] [place] [address], [place] [address] Robb Howell MD [address] [place] [address] 3L [place] [address] 03/02/2025 9:00 AM CDT Office Visit [facility] - Nephrology [address] [place] [phone] Nataliia Cooper MD [address] [place] [address] 3L [place] [address] 04/04/2025 9:00 AM CDT Office Visit [facility] - Neurology [address] [place] [address], [place] [address] Meredith Weiss MD [address] [place] [address] 1L [place] [address] 04/18/2025 1:10 AM CDT Clinical Support [facility] - Cardiology [address] [place] [phone] 07/18/2025 1:10 AM PARAOPTOMETRIC Clinical Support [facility] - Cardiology [address] [place] [phone] documented as of this encounter Visit Diagnoses Not on filedocumented in this encounter Care Teams Middleware Developer Relationship Specialty Start Date End Date Dina Cloud PA-C [address] [place] [phone] PCP - General Physician Tool Pusher 07/10/20 documented as of this encounter
--- OUTSIDE RECORDS SUMMARY | 2024-10-17 09:51 | XMS_ITS | Encounter Summary ---
Author Organization [facility] Address [address] [place] [address] Phone Care Team Providers Care Ticket Counter Name Role Phone Dina Cloud PAC Primary Care Provider [phone] Lefty Sousa MD Unavailable Reason for Visit * Reason Comments Medication Refill Encounter Details Date Type Department Care Team (Late st Contact Info) Description 12/20/2023 Refill [facility] [address] [place] [address] Lefty Sousa MD [address] [address] Medication Refill Social History Tobacco [...] file Legal Sex Male 11:32 AM INSPECTOR TOOL Gender Identity Not on file Sexual Orientation [...] Visit [facility] [address] [place] [address] Lefty Sousa MD [address] [place] [address] [address] documented as of this encounter Visit Diagnoses Diagnosis Anemia, unspecified type documented in this encounter Additional Health Concerns Assessment Noted Time PHQ-9 Depression Total Score: 0 04/26/20 9:02 AM CDT documented as of this encounter Care Teams Ticket Counter Relationship Specialty Start Date End Date Dina Cloud PAC [address] [place] [address] PCP - General Physician Master Data Analyst 05/25/20 Lefty Sousa MD [address] [place] [phone] Consulting Physician Hematology and Oncology 01/03/21 documented as of this encounter
--- OUTSIDE RECORDS SUMMARY | 2024-10-17 09:51 | XMS_ITS | Encounter Summary ---
Author Organization [facility] Address [address] [facility] [place] [address] Care Team Providers Care Manager Forensic Name Role Phone Dina Cloud PA-C Primary Care Provider Encounter Details Date Type Department Care Team (Late st Contact Info) Description 01/26/2023 Telephone [facility] - Centralized Scheduling [address] [place] [phone] Garry Tracey MD [address] [place] [phone] Social History Tobacco Use Types Packs/Day Years [...] needs his prescription resent for Dexcom G7 Telephone Sales Agent and Dexcom G7 sensor due to the prescritpion being out dated. Pt callback is [phone] documented in this encounter Plan of Treatment Upcoming Encounters Date Type Department Care Team (Late st Contact Info) Description 10/18/2024 1:00 AM CDT Clinical Support [facility] - Cardiology [address] [place] [phone] 10/25/2024 9:00 AM CDT Office Visit [facility] - Cardiology [address] [place] [phone] Daily Bravo MD [address] [place] [address] 11/08/2024 3:40 PM CDT [facility] End[facility] [address] [place] [address], [place] [address] Garry Tracey MD [address] [place] [address] [place] [address] 01/17/2025 1:10 AM CDT Clinical Support [facility] - Cardiology [address] [place] [phone] 02/23/2025 4:00 PM CDT Office Visit [facility] - Pulmonology [address] [place] [phone] Becca Ford MD [address] [place] [address] 2L DIV [place] [address] 02/24/2025 9:10 AM CDT Office [facility] Dermatology [address] [place] [address], [place] [address] Robb Howell MD [address] [facility] 3L [place] [address] 03/02/2025 9:00 AM CDT Office [facility] Nephrology [address] [place] [address], [place] [address] Nataliia Cooper MD [address] [facility] 3L [place] [address] 04/04/2025 9:00 AM CDT Office [facility] [address] [place] [address], [place] [address] Meredith Weiss MD [facility]5 [facility] 1L [place] [phone] 04/18/2025 1:10 AM CDT Clinical Support [facility] - Cardiology [address] [facility], [address] [phone] 07/18/2025 1:10 AM PROPOSAL COORDINATOR Clinical Support [facility] - Cardiology [address] [facility], [address] [phone] documented as of this encounter Visit Diagnoses Not on filedocumented in this encounter Care Teams Manager Forensic Relationship Specialty Start Date End Date Dina Cloud PA-C [address] [place] [phone] PCP - General Physician Level Vial Inspector And Tester 07/10/20 documented as of this encounter
--- OUTSIDE RECORDS SUMMARY | 2024-10-17 09:51 | XMS_ITS | Encounter Summary ---
Author Organization [facility] Address [address] [place] [address] Care Team Providers Care Merchandising Execution Manager Name Role Phone Dina Cloud PA-C Primary Care Provider Encounter Details Date Type Department Care Team (Late st Contact Info) Description 01/26/2023 Telephone [facility] - Centralized Scheduling [address] [place] [phone] Garry Tracey MD [address] [place] [phone] Social History Tobacco Use Types Packs/Day Years [...] they need the glucose reader called [facility] [place] [phone] * Telephone Encounter - Fam Wilkerson - 01/26/2023 10:52 AM CDT PT needs Freestyle Raj 2 sensor orders sent to [facility], He has not been able to read glucose levels for 10 days Verified: [phone] Lexi Caregiver documented in this encounter Plan of Treatment Upcoming Encounters Date Type Department Care Team (Late st Contact Info) Description 10/18/2024 1:00 AM CDT [facility] [address] [place] [phone] 10/25/2024 9:00 AM CDT [facility] [address] [facility], [address] [phone] Daily Bravo MD [address] [place] [address] 11/08/2024 3:40 PM CDT [facility] Endocrinology [address] [place] [address], [place] [phone] Garry Tracey MD [address] [place] [address] [place] [address] 01/17/2025 1:10 AM CDT Clinical [facility]iology [address] [phone] 02/23/2025 4:00 PM CDT Office Visit [facility] - Pulmonology [address] [place] [phone] Becca Ford MD [address] [place] [address] 2L DIV [place] [address] 02/24/2025 9:10 AM CDT Office Visit [facility] - Dermatology [address] [place] [address], [place] [phone] Robb Howell MD [address] [place] [address] 3L [place] [address] 03/02/2025 9:00 AM CDT Office Visit [facility] - Nephrology [address] [place] [address], [place] [address] Nataliia Cooper MD [address] [place] [address] 3L [place] [address] 04/04/2025 9:00 AM CDT Office Visit [facility] - Neurology [address] [place] [address], [place] [address] Meredith Weiss MD [address] [place] [address] 1L [place] [phone] 04/18/2025 1:10 AM CDT [facility] [address] [phone] 07/18/2025 1:10 AM BRICK MASON Clinical Support [facility] - Cardiology 10[address] [facility], [address] [phone] documented as of this encounter Visit Diagnoses Not on filedocumented in this encounter Care Teams Merchandising Execution Manager Relationship Specialty Start Date End Date Dina Cloud PA-C [address] [place] [phone] PCP - General Physician Salesperson Women'S Hats 07/10/20 documented as of this encounter
--- OUTSIDE RECORDS SUMMARY | 2024-10-17 09:51 | XMS_ITS | Encounter Summary ---
Author Organization [facility] Address [address] [place] [address] Phone Care Team Providers Care Product Planner Name Role Phone Dina Cloud PAC Primary Care Provider + [phone] Lefty Sousa MD Unavailable [phone] Encounter Details Date Type Department Care Team (Late st Contact Info) Description 02/06/2022 Telephone [facility] [address] [place] [address] Lefty Sousa MD 1052 [facility] [address] [address] Social History Tobacco Use Types [...] on file Legal Sex Male 11:32 AM PEWTER FABRICATOR Gender Identity Not on file Sexual Orientation [...] Visit [facility] [address] [place] [phone] Lefty Sousa MD [facility] [address] [address] documented as of this encounter Visit Diagnoses Not on filedocumented in this encounter Additional Health Concerns Assessment Noted Time PHQ-9 Depression Total Score: 0 04/26/20 9:02 AM CDT documented as of this encounter Care Teams Product Planner Relationship Specialty Start Date End Date Dina Cloud PAC [address] [place] [address] PCP - General Physician Associate Partner 05/25/20 Lefty Sousa MD [address] [place] [phone] Consulting Physician Hematology and Oncology 01/03/21 documented as of this encounter
--- OUTSIDE RECORDS SUMMARY | 2024-10-17 09:51 | XMS_ITS | Clinical Summary ---
Author Organization [facility] Address [address], [address] [place] [address] Phone Care Team Providers Care Wastewater Treatment Plant Operator Name Role Phone AiDina rosas A PAC Primary Care Provider [phone] Lefty Sousa MD Unavailable [phone] Allergies Active Allergy Reactions Criticality Noted Date Comments Penicillins Rash 07/17/2016 Medications atorvastatin (LIPITOR) 80 MG Tablet Take 1 Tab by mouth daily. 6 Active Topiramate 50 MG Tablet Take 2 Tablets by mouth 2 times daily. 6 Active aspirin EC 81 MG Tablet Delayed Response Take 81 mg by mouth daily. Active fenofibrate (TRICOR) 145 MG Tablet daily. 3 7 Active ergocalciferol (VITAMIN D) 21944 UNIT Capsule TK 1 C PO Q WK 6 8 Active metoprolol Succinate (TOPROL-XL) 25 MG TABLET SR 24 HR Take 25 mg by mouth. 9 Active amitriptyline (ELAVIL) 100 MG Tablet TK 1 T PO QD 2 9 Active gabapentin (NEURONTIN) 300 MG Capsule TK 3 CAPSULES PO TID 5 9 Active levETIRAcetam (KEPPRA) 250 MG Tablet TK 1 T PO TID 6 9 Active meloxicam (MOBIC) 7.5 MG Tablet Take 7.5 mg by mouth. 9 Active clopidogrel (PLAVIX) 75 MG Tablet Take 75 mg by mouth daily. 0 9 Active nateglinide (STARLIX) 120 MG Tablet Take 120 mg by mouth 3 times daily. 2 9 Active FEROSUL 325 (65 Fe) MG TabletIndicatio ns:Anemia of unknown etiology TAKE 1 TABLET BY MOUTH THREE TIMES DAILY 90 Tab 3 0 Active pantoprazole (PROTONIX) 40 MG Tablet Delayed Response 0 Active tamsulosin (FLOMAX) 0.4 MG Capsule TAKE 1 CAPSULE BY MOUTH AT BEDTIME 1 Active B-D ULTRAFINE III SHORT PEN 31G X 8 MM [facility] USE TO INJECT INSULIN ONCE DAILY 1 Active ammonium lactate (LAC-HYDRIN) 12 % Lotion APPLY TOPICALLY TO THE AFFECTED AREA DAILY 1 Active lisinopril (PRINIVIL, ZESTRIL) 20 MG Tablet Take 20 mg by mouth daily. 1 Active ketoconazole (NIZORAL) 2 % Cream APPLY TOPICALLY TO THE AFFECTED AREA EVERY DAY 1 Active terbinafine (LamISIL) 250 MG Tablet TAKE 1 TABLET BY MOUTH EVERY DAY FOR 14 DAYS 1 Active sildenafil citrate (VIAGRA) 100 MG Tablet Take 100 mg by mouth. 1 Active Jardiance 10 MG Tablet Take 10 mg by mouth daily. 2 Active Repatha SureClick 140 MG/ML Solution Auto-injector 2 Active lidocaine (XYLOCAINE) 5 % Ointment 2 Active oxybutynin (DITROPAN XL) 15 MG TABLET SR 24 HR Take 15 mg by mouth daily. 2 Active HYDROcodone-delma taminophen (NORCO) 10-325 MG Tablet Take 1 Tablet by mouth 3 times daily. 3 Active famotidine (PEPCID) 20 MG Tablet Take 20 mg by mouth 2 times daily. 3 Active Continuous Blood Gluc Sensor (Dexcom G7 Sensor) [facility] 3 Active buPROPion, Smoking Deter, (ZYBAN) 150 MG [...] CAPSULE BY MOUTH DAILY 30 Capsule 5 4 Active gabapentin (NEURONTIN) 600 MG Tablet Patient to take one and a half tablets (900 mg) in the morning and at noon and two tablets (1200 mg) in the evening 4 Active Lantus SoloStar 100 UNIT/ML Solution Pen-injector ADMINISTER 40 UNITS UNDER THE SKIN AT BEDTIME 4 Active Insulin Lispro, 1 Unit Dial, 100 UNIT/ML Solution Pen-injector INJECT 12 TO 18 UNITS SUBCUTANEOUS THREE TIMES DAILY BEFORE MEALS. MAX OF 50 UNITS DAILY 4 Active folic acid (FOLVITE) 1 MG TabletIndicatio ns:Anemia, unspecified type TAKE 1 TABLET BY MOUTH DAILY 90 Tablet 1 4 Active Active Problems Problem Noted Date Diagnosed [...] Department Care Team Description 09/09/2024 8:50 AM PRESSING MACHINE TENDER Lab [facility] [address] [address] Lab, [facility] [place] Myeloproliferative disease (HCC); Iron deficiency anemia, unspecified iron deficiency anemia type; Anemia, unspecified type 09/09/2024 8:45 AM PRESSING MACHINE TENDER Office Visit [facility] [address] [address] Lynnette Anderson E, CONTENT PRODUCTION SPECIALIST, CUSTOM PROTECTION OFFICER Myeloproliferative disease (HCC) (Primary Dx); Iron deficiency anemia, unspecified iron deficiency anemia type; Anemia, unspecified type 09/09/2024 Travel from Last 3 Months Immunizations Immunization Administration Dates Next Due Covid-19, Mrna, Lnp-s, Pf, Lam-sucrose, 30 Mcg/0.3 Ml ([facility]) 05/13/2023 Influenza Vaccine, Quadrivalent, PF 05/03,06/17/2022,05/17/2021,04/29,05/20/2017,09/23/2016,08/21/2015 Influenza Vaccine,unspecifie d Formulation 06/02/2022 Influenza, Injectable, Mdck, Preservative Free 04/25/2024 Influenza, Injectable, Quadrivalent 06/14/2019 Influenza, Seasonal, Injecta ble, Undefined 05/17/2019,04/29/2018 Pneumococcal Vaccine Adult - 23 Valent 7,08/21/2015,01/23/2015 Pneumococcal conjugate PCV20 , polysaccharide VOL663 conjugate, adjuvant, PF 06/16/2023 RSV, Recombinant, Protein Horton bunit Rsvpref, Adjuvant Recon (Arexvy) 07/17/2023 TDAP Vaccine 02/09/2017 Zoster Vaccine Recombinant 01/02/2022,11/03/2021 Family History Medical History Relation Name Comments Diabetes Father Stroke Mother Relation Name Status Comments Father Mother Social History Tobacco Use Types Packs/Day Years Used Date Smoking Tobacco: Every Day Cigarettes 1 50.2 Started: 08/03/1974 Smokeless Tobacco: Never Tobacco Cessation:Ready to Q uit: Yes; Counseling Given: Yes Alcohol Use Standard Drinks/Week Comments No 0 (1 standard drink = 0.6 oz pur e alcohol) PHQ-2 Answer Date Recorded Total Score - Questions 1-9 0 02/01 Sex and Gender Information Value Date Recorded Sex Assigned at Not on file Legal Sex Male 11:32 AM PRESSING MACHINE TENDER Gender Identity Not on file Sexual Orientation Not on file Last Filed Vital Signs Vital Sign Reading Time Taken Comments Blood Pressure 136/84 09/09/2024 8:47 AM PRESSING MACHINE TENDER Pulse 59 09/09/2024 8:47 AM PRESSING MACHINE TENDER Temperature 36.3 C (97.3 F) 09/09/2024 8:47 AM PRESSING MACHINE TENDER Respiratory Rate 18 09/09/2024 8:47 AM PRESSING MACHINE TENDER Oxygen Saturation 99% 09/09/2024 8:47 AM PRESSING MACHINE TENDER Inhaled Oxygen Concentration - - Weight 102.7 kg (226 lb 8 oz) 09/09/2024 8:47 AM PRESSING MACHINE TENDER Height 172.7 cm (5' 8 ) 09/09/2024 8:47 AM PRESSING MACHINE TENDER Body Mass Index 34.44 09/09/2024 8:47 AM PRESSING MACHINE TENDER Plan of Treatment Upcoming Encounters Date Type Department Care Team (Late st Contact Info) Description 12/09/2024 8:30 AM CDT Office Visit [facility] [address] [address] Lefty Sousa MD 1052 [facility] [address] [place] [phone] Health Maintenance Due Date Last Done Comments [...] (CBC) WITH DIFF Routine 09/09/2024 9:10 AM PRESSING MACHINE TENDER Myeloproliferative disease (HCC) Iron deficiency anemia, unspecified iron deficiency anemia type Anemia, unspecified type CMP (COMPREHENSIVE METABOLIC PANEL) Routine 09/09/2024 9:10 AM PRESSING MACHINE TENDER Myeloproliferative disease (HCC) Iron deficiency anemia, unspecified iron deficiency anemia type Anemia, unspecified type LACTATE DEHYDROGENASE (LD) Routine 09/09/2024 9:10 AM PRESSING MACHINE TENDER Myeloproliferative disease (HCC) Iron deficiency anemia, unspecified iron deficiency anemia type Anemia, unspecified type FERRITIN Routine 09/09/2024 9:10 AM PRESSING MACHINE TENDER Myeloproliferative disease (HCC) Iron deficiency anemia, unspecified iron deficiency anemia type Anemia, unspecified type IRON W/ IRON BINDING CAPACITY OH Routine 09/09/2024 9:10 AM PRESSING MACHINE TENDER Myeloproliferative disease (HCC) Iron deficiency anemia, unspecified iron deficiency anemia type Anemia, unspecified type CT CHEST W/O CONTRAST Routine 01/04/2021 10:14 AM CDT Lung nodule Leukocytosis, unspecified type Thrombocytosis (HCC) Myeloproliferative disease (HCC) Anemia of unknown etiology from Last 3 Months or Most Recently Relevant to Health Maintenance Results * IRON W/ IRON BINDING CAPACITY OH (09/09/2024 9:10 AM PRESSING MACHINE TENDER) IRON 84 50 - 212 ug/dL [facility] UIBC 266 155 - 355 ug/dL [facility] TIBC 350 261 - 478 ug/dl [facility] % Saturation 24 20 - 50 % [facility] 09/09/2024 9:10 AM PRESSING MACHINE TENDER Kiara [facility] - 09/09/2024 10:05 AM PRESSING MACHINE TENDER Release to patient->Immediate us Lynnette Anderson APRN, CUSTOM PROTECTION OFFICER LAB SEND OUTS Fin al Result [facility] [address] [place] [address], * (ABNORMAL) LACTATE DEHYDROGENASE (LD) (09/09/2024 9:10 AM PRESSING MACHINE TENDER) LDH 130(L) 140 - 271 U/L [facility] Blood 09/09/2024 9:10 AM PRESSING MACHINE TENDER Kiara [facility] - 09/09/2024 10:05 AM PRESSING MACHINE TENDER Release to patient->Immediate Lynnette Anderson APRN, CUSTOM PROTECTION OFFICER CHEMISTRY ORDERABLE S Final Result [facility] [place] [address], [place] [phone] * FERRITIN (09/09/2024 9:10 AM PRESSING MACHINE TENDER) Ferritin 53 24 - 336 ng/mL [facility] Blood 09/09/2024 9:10 AM PRESSING MACHINE TENDER Narrative [facility] - 09/09/2024 2:10 PM PRESSING MACHINE TENDER Release to patient->Immediate Lynnette Anderson APRN, CUSTOM PROTECTION OFFICER CHEMISTRY ORDERABLE S Final Result Performing Organization Address City/[facility]/ZIP Co de Phone Number [facility] [place] [address], [place] [phone] * (ABNORMAL) CMP (COMPREHENSIVE METABOLIC PANEL) (09/09/2024 9:10 AM PRESSING MACHINE TENDER) Glucose 216(H) 70 - 105 mg/dL [facility] Blood Urea Nitrogen 17 7 - 25 mg/dL [facility] Creatinine 1.4(H) 0.7 - 1.3 mg/dL [facility] Sodium 144 136 - 145 mEq/L [facility] Potassium 4.6 3.5 - 5.1 mEq/L [facility] Chloride 104 98 - 107 mEq/L [facility] Bicarbonate 29 21 - 31 mEq/L [facility] Total Bilirubin 0.3 0.3 - 1.0 mg/dL [facility] Alk. Phosphatase 89 34 - 104 U/L [facility] Aspartate Aminotransferase 14 13 - 39 U/L [facility] Alanine Aminotransferase 26 7 - 52 U/L [facility] Total Protein 6.6 6.4 - 8.9 g/dL [facility] Albumin 4.2 3.5 - 5.7 g/dL [facility] Calcium 11.6(H) 8.6 - 10.3 mg/dL [facility] Anion Gap 15.6(H) 7.0 - 15.0 mEq/L [facility] Globulin 2.4 2.0 - 3.5 g/dL [facility] EGFR 56(L) >60 ml/min/1. 73m2 [facility] Comment: This eGFR is calculated using 2020 CKD-EPI Creatinine equation without race modifier based on the NKF-ASN task force recommendations Blood 09/09/2024 9:10 AM PRESSING MACHINE TENDER Narrative [facility] - 09/09/2024 10:05 AM PRESSING MACHINE TENDER Release to patient->Immediate IS THE PATIENT REQUIRED TO BE FASTING FOR 8 HOURS?->No us Lynnette Anderson APRN, CUSTOM PROTECTION OFFICER CHEMISTRY ORDERABLE S Final Result [facility] [address] [place] [address], * (ABNORMAL) COMPLETE BLOOD COUNT (CBC) WITH DIFF (09/09/2024 9:10 AM PRESSING MACHINE TENDER) WBC 11.1(H) 4.0 - 10.0 10*3/uL [facility] HGB 14.3 13.7 - 17.5 g/dL [facility] HCT 43.7 40.1 - 51.0 % [facility] PLT 287 163 - 369 10*3/uL [facility] MPV 9.9 9.4 - 12.4 fL [facility] RBC 4.02(L) 4.63 - 6.08 10*6/uL [facility] MCV 109(H) 79 - 95 fL [facility] MCH 35.6(H) 25.6 - 32.2 pg [facility] MCHC 32.7 32.2 - 36.5 g/dL [facility] RDW 14.6(H) 11.6 - 14.4 % [facility] Absolute Neutrophil Count 6,083 cells/uL [facility] Absolute Seg Count 6,083 1,440 - 6,600 cells/uL [facility] Absolute Lymph Count 3,650 760 - 4,000 cells/uL [facility] Absolute Richardson Count 774 160 - 1,200 cells/uL [facility] Absolute Eos Count 553(H) 0 - 300 cells/uL [facility] Segmented Neutrophils 55 36 - 66 % [facility] Lymphocytes 33 19 - 40 % [facility] C [facility]TER [facility] Monocytes 7 4 - 12 % [facility] TER [facility] Eosinophils 5(H) 0 - 3 % [facility] WBC Estimate High [facility] Platelet Estimate Normal [facility] RBC Morphology Abnormal CANCE R OFFICE MACHINES WIRER [facility] Macrocytosis 2+ [facility] Anisocytosis 1+ [facility] Blood 09/09/2024 9:10 AM PRESSING MACHINE TENDER Narrative [facility] - 09/09/2024 11:11 AM PRESSING MACHINE TENDER Release to patient->Immediate us Lynnette Anderson APRN, CUSTOM PROTECTION OFFICER HEMATOLOGY ORDERABL ES Final Result [facility] [address] [place] [address], * CT CHEST W/O CONTRAST (01/04/2021 10:14 [...] Recently Relevant to Health Maintenance Insurance MEDICAID [employer] Care Teams Wastewater Treatment Plant Operator Relationship Specialty Start Date End Date Dina Cloud PAC [address] [place] [address] PCP - General Physician Planograph Operator 05/25/20 Lefty Sousa MD [address] [place] [phone] Consulting Physician Hematology and Oncology 01/03/21
--- OUTSIDE RECORDS SUMMARY | 2024-10-17 09:51 | XMS_ITS | Encounter Summary ---
Author Organization [facility] Address [address] [facility] [place] [address] Care Team Providers Care Web Database Developer Name Role Phone Dina Cloud PA-C Primary Care Provider Encounter Details Date Type Department Care Team (Late st Contact Info) Description 01/28/2023 Telephone [facility] - Centralized Scheduling [address] [place] [phone] Garry Tracey MD [address] [phone] Social History Tobacco Use Types Packs/Day Years [...] glucose levels for 13 days ?? Verified: [phone] Lexi Caregiver documented in this encounter Plan of Treatment Upcoming Encounters Date Type Department Care Team (Late st Contact Info) Description 10/18/2024 1:00 AM CDT Clinical Support [facility] - Cardiology [address] [place] [phone] 10/25/2024 9:00 AM CDT Office Visit [facility] - Cardiology [address] [place] [phone] Daily Bravo MD [address] [place] [address] 11/08/2024 3:40 PM CDT [facility] [address] [place] [phone] Garry Tracey MD [address] [place] [address] [address] [place] [phone] 01/17/2025 1:10 AM CDT Clinical Support [facility] - Cardiology [address] [place] [phone] 02/23/2025 4:00 PM CDT Office Visit [facility] - Pulmonology [address] [place] [phone] Becca Ford MD [address] [place] [address] 2L [place] [address] 02/24/2025 9:10 AM CDT Office Visit [facility] - Dermatology [address] [place] [address], [place] [address] Robb Howell MD [address] [place] [address] [address] [place] [address] 03/02/2025 9:00 AM CDT [facility] [address] [place] [address], [place] [address] Nataliia Cooper MD [address] [place] [address] 3L [place] [address] 04/04/2025 9:00 AM CDT Office Visit [facility] - Neurology [address] [place] [address], [place] [address] Meredith Weiss MD [address] [place] [address] [address] [place] [address] 04/18/2025 1:10 AM CDT [facility] [address] [phone] 07/18/2025 1:10 AM TRACK PRODUCTION ENGINEER Clinical Support [facility] - Cardiology [address] [phone] documented as of this encounter Visit Diagnoses Not on filedocumented in this encounter Care Teams Web Database Developer Relationship Specialty Start Date End Date Dina Cloud PA-C [address] [place] [phone] PCP - General Physician Scientific Programmer Analyst 07/10/20 documented as of this encounter
--- OUTSIDE RECORDS SUMMARY | 2024-10-17 09:51 | XMS_ITS | Encounter Summary ---
Author Organization [facility] Address [address] [place] [address] Phone Care Team Providers Care Workforce Development Assistant Name Role Phone Dina Cloud PAC Primary Care Provider + [phone] Lefty Sousa MD Unavailable [phone] Reason for Visit * Reason Comments Medication Refill Encounter Details Date Type Department Care Team (Late st Contact Info) Description 07/21/2023 Refill [facility] [address] [place] [address] Lefty Sousa MD [address] [address] Medication Refill Social History Tobacco [...] on file Legal 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 Gender Identity Not on file Sexual Orientation Not on file documented as of this encounter Miscellaneous Notes * Telephone Encounter - Norma Bond RN - 07/21/2023 7:53 AM NATIONAL ACCOUNT DIRECTOR Please fill if appropriate ONAL ACCOUNT DIRECTOR documented in this encounter Plan of Treatment Upcoming Encounters Date Type Department Care Team (Late st Contact Info) Description 12/09/2024 8:30 AM CDT Office Visit [facility] [address] [place] [address] Lefty Sousa MD [address] [place] [address] [address] documented as of this encounter Visit Diagnoses Diagnosis Anemia, unspecified type documented in this encounter Additional Health Concerns Assessment Noted Time PHQ-9 Depression Total Score: 0 04/26/20 9:02 AM CDT documented as of this encounter Care Teams Workforce Development Assistant Relationship Specialty Start Date End Date Dina Cloud PAC [address] [place] [phone] PCP - General Physician Core Inserter 05/25/20 Lefty Sousa MD [address] [place] [phone] Consulting Physician Hematology and Oncology 01/03/21 documented as of this encounter
--- OUTSIDE RECORDS SUMMARY | 2024-10-17 09:51 | XMS_ITS | Encounter Summary ---
Author Organization 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 Gender Identity Not on file Sexual Orientation Not on file documented as of this encounter Miscellaneous Notes * Telephone Encounter - Cary Chapman - 07/15/2021 3:54 PM CST PT HAD AN APPT TODAY, NO SHOW, CALLED PT, LEFT V/M, LETTER SENT DDED ENGINEER documented in this encounter Plan of Treatment Upcoming Encounters Date Type Department Care Team (Late st Contact Info) Description 12/09/2024 8:30 AM CDT Office Visit [facility] [address] [place] [phone] Lefty Sousa MD [facility] [address] [address] documented as of this encounter Visit Diagnoses Not on filedocumented in this encounter Additional Health Concerns Assessment Noted Time PHQ-9 Depression Total Score: 0 04/26/20 9:02 AM CDT documented as of this encounter Care Teams Mail Handler Equipment Operator Relationship Specialty Start Date End Date Dina Cloud PAC [address] [place] [address] PCP - General Physician Bacteriologist Industrial 05/25/20 Lefty Sousa MD [address] [place] [phone] Consulting Physician Hematology and Oncology 01/03/21 documented as of this encounter
--- OUTSIDE RECORDS SUMMARY | 2024-10-17 09:51 | XMS_ITS | Encounter Summary ---
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 [facility] [employer] documented in this encounter Plan of Treatment Upcoming Encounters Date Type Department Care Team (Late st Contact Info) Description 12/09/2024 8:30 AM CDT Office Visit [facility] [address] [place] [phone] Lefty Sousa MD [address] [facility] [address] [address] documented as of this encounter Visit Diagnoses Not on filedocumented in this encounter Additional Health Concerns Assessment Noted Time PHQ-9 Depression Total Score: 0 04/26/20 9:02 AM CDT documented as of this encounter Care Teams Wellness Nurse Rn Relationship Specialty Start Date End Date Dina Cloud PAC [address] [place] [address] PCP - General Physician Gas Station Service Attendant 05/25/20 Lefty Sousa MD [address] [place] [phone] Consulting Physician Hematology and Oncology 01/03/21 documented as of this encounter
--- OUTSIDE RECORDS SUMMARY | 2024-10-17 09:51 | XMS_ITS | Encounter Summary ---
Author Organization [facility] Address [address] [facility] [place] [address] Care Team Providers Care Drum Sander Setter Name Role Phone Dina Cloud PA-C Primary Care Provider Encounter Details Date Type Department Care Team (Late st Contact Info) Description 09/04/2023 Telephone [facility] - Neurology [address] [place] [address], [place] [address] Meredith Weiss MD [address] [place] [phone] Social History Tobacco Use Types Packs/Day Years Used Date Smoking Tobacco: Every Day Cigarettes 1 51.2 Started: 1972 Smokeless Tobacco: Never Comments:06/25 12 ppd Alcohol Use Standard Drinks/Week Comments Not [...] that they have not been able to pick up attendant this patient's Gabapentin [address] Weiss renewed this prescription on 09/02/2023 and this patient's pharmacy confirmed a receipt of this prescription. I called this patient's pharmacy ([facility] in [place], [place]) and the pharmacy customer care specialist claimed that they did not have a copy of the prescription. I then called in the prescription as prescribed by Dr. Weiss. T FINISHER * Telephone Encounter - Bess Boss - 09/04/2023 12:04 PM CST Patient called in requesting a Med refill. Drug type:gabapintine 300 mg Completely out now Pharmacy:[facility] Patient call back number: [phone] . T FINISHER documented in this encounter Plan of Treatment Upcoming Encounters Date Type Department Care Team (Late st Contact Info) Description 10/18/2024 1:00 AM CDT [facility] [address] [place] [phone] 10/25/2024 9:00 AM CDT Office Visit [facility] - Cardiology [address] [place] [phone] Daily Bravo MD [address] [place] [address] 11/08/2024 3:40 PM CDT Office Visit [facility] - Endocrinology [address] [place] [address], [place] [address] Garry Tracey MD [address] [place] [address] [place] [address] 01/17/2025 1:10 AM CDT Clinical Support [facility] - Cardiology [address] [facility], [address] [phone] 02/23/2025 4:00 PM CDT Office Visit [facility] - Pulmonology [address] [place] [address], [place] [address] Becca Ford MD [address] [place] [address] 2L DIV [place] [address] 02/24/2025 9:10 AM CDT Office Visit [facility] - Dermatology [address] [place] [address], [place] [address] Robb Howell MD [address] [place] [address] [address]L [place] [address] 03/02/2025 9:00 AM CDT [facility] Nephrology [address] [place] [address], [place] [address] Nataliia Cooper MD [address] [place] [address] 3L [place] [address] 04/04/2025 9:00 AM CDT Office Visit [facility] - Neurology [address] [place] [address], [place] [address] Meredith Weiss MD [address] [place] [address] 1L [place] [address] 04/18/2025 1:10 AM CDT Clinical Support [facility] - Cardiology [address] [facility], [address] [phone] 07/18/2025 1:10 AM SHIRT FINISHER Clinical Support [facility] - Cardiology [address] [facility], [address] [phone] documented as of this encounter Visit Diagnoses Not on filedocumented in this encounter Care Teams Drum Sander Setter Relationship Specialty Start Date End Date Dina Cloud PA-C [address] [place] [phone] PCP - General Physician Nitrocellulose Maker 07/10/20 documented as of this encounter
--- OUTSIDE RECORDS SUMMARY | 2024-10-17 09:51 | XMS_ITS | Encounter Summary ---
Author Organization [facility] Address [address] [facility] [place] [address] Care Team Providers Care Etcher Enameling Name Role Phone Dina Cloud PA-C Primary Care Provider Encounter Details Date Type Department Care Team (Late Contact Info) Description 01/15/2023 Telephone [facility] - Centralized Scheduling [address] [place] [phone] Nathalie Hassan M, OD [address] [facility] [place] [phone] Social History Tobacco Use Types Packs/Day Years [...] [facility]iology [address] [facility], [address] [phone] 10/25/2024 9:00 AM CDT Office Visit [facility] - Cardiology [address] [facility], [address] [phone] Daily Bravo MD [facility] [address] [address] 11/08/2024 3:40 PM CDT [facility] End[facility]ology [address] [place] [address], [place] [phone] Garry Tracey MD [address] [place] [address] 2L [place] [phone] 01/17/2025 1:10 AM CDT [facility] Cardiology [facility], [address] [phone] 02/23/2025 4:00 PM CDT [facility] - Pulmonology [address] [place] [phone] Becca Ford MD [address] [place] [address] 2L [place] [address] 02/24/2025 9:10 AM CDT Office Visit [facility] - Dermatology [address] [place] [address], [place] [phone] Robb Howell MD [address] [place] [address] [address] [place] [address] 03/02/2025 9:00 AM CDT [facility] Nephrology [address] [place] [phone] Nataliia Cooper MD [address] [place] [address] 3L [place] [address] 04/04/2025 9:00 AM CDT Office Visit [facility] - Neurology [address] [place] [address], [place] [phone] Meredith Weiss MD [address] [place] [address] 1L [place] [phone] 04/18/2025 1:10 AM CDT Clinical Support [facility] - Cardiology [address] [place] [address], [address] [phone] 07/18/2025 1:10 AM LATHE SANDER Clinical Support [facility] - Cardiology [address] [place] [address], [address] [phone] documented as of this encounter Visit Diagnoses Not on filedocumented in this encounter Care Teams Etcher Enameling Relationship Specialty Start Date End Date Dina Cloud PA-C [address] [place] [phone] PCP - General Physician Intelligence Operations 07/10/20 documented as of this encounter
[2024-10-17 09:56] LABS: Prothrombin Time 13.9 Seconds (11.1-14.7)
[2024-10-17 09:57] LABS: Partial Thromboplastin Time 25.2 Seconds (22.3-36.8)
--- NOTE | 2024-10-17 09:57 | ED.AMS ---
HPI - Altered Mental Status General Chief Complaint: Altered Mental Status <Arabella Underwood APRN - Last Filed: 10/20/24 17:10> Stated Complaint: AMS <Arabella Underwood APRN - Last Filed: 10/20/24 17:10> Time Seen by Provider: 10/17/24 09:05 <Arabella Underwood APRN - Last Filed: 10/20/24 17:10> History of Present Illness HPI narrative: Patient is a 64-year-old male who presents to the ER with altered mental status. According to EMS patient's home healthcare nurse arrived at his house this morning and he was ?altered. She also told EMS there was drug paraphernalia around his home. EMS transported patient to the ER. Upon arrival to the ER patient is A&O x1-2. He is unable to verbalize whether or not he has any medical history. Patient endorses pain but when he was asked to locate the pain he reports ?down yonder. He denies any shortness of breath, chest pain, recent fevers, abdominal pain, but once again, patient is a poor historian. <Arabella Underwood APRN - Last Filed: 10/20/24 17:10> Related Data Home Medications: Home Medications ?Medication ?Instructions ?Recorded ?Confirmed ?Last Taken ?Type amitriptyline 100 mg tablet 100 mg PO HS 03/12/20 10/17/24 Unknown History atorvastatin 80 mg tablet 80 mg PO HS 03/12/20 10/17/24 Unknown History clopidogrel 75 mg tablet 75 mg PO DAILY 03/12/20 10/17/24 05/28/20 07:30 History ergocalciferol (vitamin D2) 1,250 1,250 mcg PO WEEKLY 03/12/20 10/17/24 09/15/24 History mcg (50,000 unit) capsule folic acid 1 mg tablet 1 mg PO DAILY 03/12/20 10/17/24 Unknown History levetiracetam 250 mg tablet 250 mg PO TID 03/12/20 10/17/24 Unknown History aspirin 81 mg chewable tablet 81 mg PO DAILY 05/28/20 10/17/24 05/28/20 07:30 History blood-glucose meter,continuous 02/23/23 10/17/24 Unknown History (Dexcom G7 Policy Change Clerk) blood-glucose sensor (Dexcom G7 02/23/23 10/17/24 Unknown History Sensor device) empagliflozin 10 mg tablet 10 mg PO DAILY 02/23/23 10/17/24 Unknown History (Jardiance) famotidine 20 mg tablet 20 mg PO BID 02/23/23 10/17/24 Unknown History hydrocodone 10 mg-acetaminophen 1 tablet PO Q8H pain 02/23/23 10/17/24 Unknown History 325 mg tablet oxybutynin chloride 15 mg 15 mg PO DAILY 02/23/23 10/17/24 Unknown History tablet,extended release 24 hr tamsulosin 0.4 mg capsule 0.4 mg PO HS 02/23/23 10/17/24 Unknown History gabapentin 600 mg tablet 600 mg PO TID 09/16/24 10/17/24 Unknown History dulaglutide 3 mg/0.5 mL 3 mg subcut WEEKLY 10/17/24 10/17/24 Unknown History subcutaneous pen injector (Trulicity) duloxetine 30 mg capsule,delayed 30 mg PO DAILY 10/17/24 10/17/24 Unknown History release hydroxyurea 500 mg capsule 500 mg PO DAILY 10/17/24 10/17/24 Unknown History metoprolol succinate 25 mg 25 mg PO DAILY 10/17/24 10/17/24 Unknown History tablet,extended release 24 hr pen needle, diabetic 31 gauge x 10/17/24 10/17/24 Unknown History 12/16 (TRUEplus Pen Needle) sildenafil 100 mg tablet 100 mg PO Q24H PRN as needed 10/17/24 10/17/24 Unknown History <Arabella Underwood APRN - Last Filed: 10/20/24 17:10> Allergies/Adverse Reactions: Allergies Allergy/AdvReac Type Severity Reaction Status Date / Time Penicillins Allergy Unknown Other Verified 10/17/24 15:24 <Arabella Underwood APRN - Last Filed: 10/20/24 17:10> [facility] Past Medical History Medical History: Medical History Prostate abscess Chronic anemia Chronic obstructive pulmonary disease Tobacco dependence Type 2 diabetes mellitus 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 January 2019: Left parietooccipital CVA presenting with confusion and aphasia. 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 Obstructive sleep apnea Refuses CPAP. Chronic kidney disease, stage 3 Baseline creatinine is around 1.4. Vitamin D deficiency Coronary artery disease Patient reports history of 2 MIs; no history of cardiac catheterization. 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 <Arabella Underwood APRN - Last Filed: 10/20/24 17:10> Surgical History Surgical History: Surgical History History of back surgery History of permanent cardiac pacemaker placement Due to sick sinus rhythm. History of transurethral resection of prostate History of hernia surgery <Arabella Underwood APRN - Last Filed: 10/20/24 17:10> Family History Family History: Family History Mother Cerebrovascular accident Acute myocardial infarction Hypertension Father Diabetes mellitus Cerebrovascular accident Hypertension <Arabella Underwood APRN - Last Filed: 10/20/24 17:10> Social History Social History: Social History Social History: Surrogate decision maker: Darling Rivers (sister). Code status: Full code. Smoking packs per day: 1 Smoking cigarettes per day: 20.0 Years smoked: 45 Smoking pack-years: 45.00 Smoking status: Current every day smoker Tobacco type: cigarettes Second hand tobacco smoke exposure: Yes Alcohol intake: current Drinks per week: 1 Substance use: current Substance use type: marijuana and crack/cocaine Other substance usage details: daily Last use: 02/22/2023 Do You Feel Safe in your Home?: Yes Lack of Transportation: YES Lack of Food: Never True Current Housing: I Have Housing Concerned About Future Housing: No Difficulty Paying Gas/Electric Bills: No Difficulty Paying for Meds: No Currently Unemployed: YES Education: Don't Know Difficulty w/ Childcare or Family Care: No Living arrangements: alone Additional living arrangements comments: The patient lives in his own apartment in [place]. Occupation/Education: unemployed Additional occupation/education comments: On disability. Spiritual care concerns: No <Arabella Underwood APRN - Last Filed: 10/20/24 17:10> Exam Narrative: GENERAL: Ill- appearing, well-nourished, non-toxic, in no acute distress. HEAD: Normocephalic, atraumatic. NECK: Supple. No adenopathy, no masses. RESPIRATORY: Airway patent, respirations nonlabored. Clear to auscultation bilaterally, no rales, rhonchi, wheezing. CARDIOVASCULAR: Regular rate and rhythm without murmurs, rubs, or gallops. Peripheral pulses 2+ and equal bilaterally. ABDOMINAL: Soft, nontender, nondistended, no hepatosplenomegaly. Normoactive BS. MUSCULOSKELETAL: Moves all extremities. Strength/ROM intact without gross deformities. SKIN: Warm, dry, normal color. No rashes. NEURO: A&O X 1-2. Speech clear. Cranial nerves II-XII intact. No ataxic movements. PSYCHIATRIC: Inappropriate interaction, pt unable to maintain a conversation. <Arabella Underwood APRN - Last Filed: 10/20/24 17:10> Course US CUSTOMS AND BORDER OFFICER/PA Physician Supervision This visit was performed by both a physician and an APC. I performed all aspects of the MDM as documented. <Rick Mccauley MD - Last Filed: 10/17/24 19:16> Vital Signs Vital signs: Vital Signs Temperature 37.2 C 10/17/24 09:00 Pulse Rate 110 H 10/17/24 09:00 Respiratory Rate 16 10/17/24 09:00 Blood Pressure 190/93 H 10/17/24 09:00 Pulse Oximetry 100 10/17/24 09:00 Oxygen Delivery Room Air 10/17/24 09:00 Temperature 36.8 C 10/19/24 11:46 Pulse Rate 90 10/19/24 14:00 Respiratory Rate 18 10/19/24 11:46 Blood Pressure 178/67 H 10/19/24 11:46 Pulse Oximetry 98 10/19/24 11:46 Oxygen Delivery Room Air 10/19/24 04:00 <Arabella Underwood APRN - Last Filed: 10/20/24 17:10> Vital Signs Temperature 37.2 C 10/17/24 09:00 Pulse Rate 110 H 10/17/24 09:00 Respiratory Rate 16 10/17/24 09:00 Blood Pressure 190/93 H 10/17/24 09:00 Pulse Oximetry 100 10/17/24 09:00 Oxygen Delivery Room Air 10/17/24 09:00 Temperature 36.8 C 10/19/24 11:46 Pulse Rate 90 10/19/24 14:00 Respiratory Rate 18 10/19/24 11:46 Blood Pressure 178/67 H 10/19/24 11:46 Pulse Oximetry 98 10/19/24 11:46 Oxygen Delivery Room Air 10/19/24 04:00 <Rick Mccauley MD - Last Filed: 10/17/24 19:16> MDM - Altered Mental Status MDM Narrative Medical decision making narrative: Patient is a 64-year-old male who presents to the ER with altered mental status. According to EMS patient's home healthcare nurse arrived at his house this morning and he was ?altered. She also told EMS there was drug paraphernalia around his home. EMS transported patient to the ER. Upon arrival to the ER patient is A&O x1-2. He is unable to verbalize whether or not he has any medical history. Patient endorses pain but when he was asked to locate the pain he reports ?down yonder. He denies any shortness of breath, chest pain, recent fevers, abdominal pain, but once again, patient is a poor historian. Labs Ordered: CBC, CMP, TSH, troponin, UDS, CRP, lipase, EtOH, PTT, INR, UA, blood cultures, lactate Imaging Ordered: Chest x-ray Medications Ordered: 2 L normal saline IV bolus, cefepime IV, vancomycin IV, Benadryl 25 mg IV, Reglan 10 mg IV, Ativan 1 mg IV Results: Patient's initial troponin is elevated at 0.123. His calcium is elevated to 12.2. Patient's glucose is 379. His GFR is 36. Patient's creatinine is 0.91, BUN 42, anion gap of 16, and sodium of 132. Diagnosis: CONNIE, elevated troponin, hypercalcemia, sepsis Consults: 1120-cardiology consulted after patient had a short run of V-tach (approximately 10 seconds) and an elevated troponin. They do not recommend any additional medications at this time. Patient Education/Shared MDM: Results shared with patient. 0945- Pt very agitated, given 1 dose Ativan 1mg IV. 1035- Pt vomiting all over the floor. Will give Benadryl and Reglan IV. 1110- Pt had a short run of V-tach (approximately 10 seconds) 1140- Spoke with hospitalist who is in agreement for pt to be admitted to the hospital in the IMU. <Arabella Underwood, ESTHER - Last Filed: 10/20/24 17:10> Lab Data Result diagrams: 10/19/24 04:24 10/19/24 04:24 <Arabella Underwood APRN - Last Filed: 10/20/24 17:10> Labs: Lab Results 10/17/24 10/17/24 10/17/24 Range/Units 09:36 11:24 11:45 WBC 18.3 H (4.5-10.0) K/mm3 RBC 4.40 L (4.6-6.20) M/mm3 Hgb 15.5 D (14.0-18.0) g/dL Hct 43.6 (42.0-52.0) % MCV 99.1 (80-100) fl MCH 35.2 H (26-34) pg MCHC 35.6 (32-36) g/dl RDW 13.7 (11.5-14.5) % Plt Count 394 H D (150-375) k/mm3 MPV 10.6 H (7.4-10.4) fl Immature Gran % (Auto) 0.5 (0-0.5) % Neut % (Auto) 76.3 H (45.5-73.1) % Lymph % (Auto) 14.9 L (18.3-44.2) % [place] % (Auto) 8.1 (2.6-8.5) % Eos % (Auto) 0.1 (0-4.4) % Baso % (Auto) 0.1 L (0.2-1.2) % Lymph # (Auto) 2.74 (0.9-3.2) K/mm3 [place] # (Auto) 1.5 H (0.1-0.6) K/mm3 Eos # (Auto) 0.0 (0-0.3) K/mm3 Baso # (Auto) 0.0 (0.0-0.1) K/mm3 Abs Immat Gran (auto) 0.09 H (0.00-0.031) K/mm3 Absolute Neuts (auto) 14.0 H (1.3-6.7) K/mm3 Absolute Nucleated RBC 0.000 (0.0-0.012) K/mm3 Nucleated RBC % 0.0 (0.0-0.2) % PT 13.9 (11.1-14.7) Seconds INR 1.0 APTT 25.2 (22.3-36.8) Seconds Methemoglobin 0.1 (0-1.5) %THb Sodium 132 L (137-145) mmol/L Potassium 4.8 (3.4-5.0) mmol/L Chloride 92 L (98-107) mmol/L Carbon Dioxide 24 (22-30) mmol/L Anion Gap 16 H (4-12) mmol/L BUN 42 H D (9-20) mg/dL Creatinine 1.91 H (0.7-1.3) mg/dL Estim Creat Clear Calc 51 ml/min Estimated GFR 36 L (59 - ) Glucose 379 H (65-110) mg/dL POC Capillary Glucose (65-105) mg/dl Lactic Acid (0.7-2.0) mmol/L Calcium 12.2 H* (8.4-10.2) mg/dL Magnesium 1.4 L (1.6-2.3) mg/dL Iron (49-181) ug/dL TIBC (265-497) ug/dL % Saturation (20-50) % Ferritin (11.1-264) ng/mL Total Bilirubin 0.9 (0.2-1.3) mg/dL AST 49 (17-59) U/L ALT 37 (6-50) U/L Alkaline Phosphatase 118 (38-126) U/L Troponin I 0.123 H* (0.000-0.034) ng/mL C-Reactive Protein 0.5 (<1.0) mg/dL Total Protein 8.0 (6.3-8.2) g/dL Albumin 4.7 (3.5-5.1) g/dL Lipase 121 (23-300) U/L Vitamin B12 (239-931) pg/mL Folate (2.76->20) ng/mL Calcitonin TSH (0.465-4.680) uIU/mL TSH (Reflex) 0.981 (0.465-4.68) uIU/mL PTH Related Protein Urine Color Yellow (Yellow) Urine Appearance Clear (Clear) Urine pH 5.5 (5.0-9.0) Ur Specific [place] 1.035 (1.001-1.035) Urine Protein 4+ H (Negative) mg/dL Urine Glucose (UA) 3+ H (Negative) mg/dL Urine Ketones 1+ H (Negative) mg/dL Ur Blood (Man) 3+ H (Negative) Urine Nitrate Negative (Negative) Urine Bilirubin Negative (Negative) Urine Urobilinogen 0.2 (<2.0) mg/dL Add Ur Microanalysis Reviewed Leukocyte Esterase Rfl Negative (Negative) FERNANDO/UL Urine RBC 3-5 H (0-2) /hpf Urine WBC 0-5 (0-3) /hpf Ur Squamous Epith Cells Occasional (Few) /hpf Urine Bacteria None seen /hpf Urine Casts >20 Hyaline Casts 3-4 H (None) /lpf Urine Mucus Present /lpf Nasal MRSA (PCR) Not detected (NOT DETECTE) Urine Opiates Screen Negative (Negative) Urine Methadone Screen Negative (Negative) Ur Barbiturates Screen Negative (Negative) Ur Phencyclidine Scrn Negative (Negative) Ur Amphetamine Screen Negative (Negative) U Benzodiazepines Scrn Negative (Negative) Urine Cocaine Screen Positive A (Negative) U Cannabinoids Screen Positive A (Negative) Ethyl Alcohol < 10 (<10) mg/dL Influenza A (RT-PCR) (Negative) Influenza B (RT-PCR) (Negative) RSV (RT-PCR) (Negative) SARS-CoV-2 RNA (RT-PCR) (Negative) 10/17/24 10/17/24 10/17/24 Range/Units 12:08 15:53 15:54 WBC 19.8 H (4.5-10.0) K/mm3 RBC 4.38 L (4.6-6.20) M/mm3 Hgb 15.4 (14.0-18.0) g/dL Hct 45.9 (42.0-52.0) % MCV 104.8 H D (80-100) fl MCH 35.2 H (26-34) pg MCHC 33.6 (32-36) g/dl RDW 14.1 (11.5-14.5) % Plt Count 384 H (150-375) k/mm3 MPV 10.3 (7.4-10.4) fl Immature Gran % (Auto) 0.4 (0-0.5) % Neut % (Auto) 69.7 (45.5-73.1) % Lymph % (Auto) 18.0 L (18.3-44.2) % [place] % (Auto) 11.6 H (2.6-8.5) % Eos % (Auto) 0.1 (0-4.4) % Baso % (Auto) 0.2 (0.2-1.2) % Lymph # (Auto) 3.56 H (0.9-3.2) K/mm3 [place] # (Auto) 2.3 H (0.1-0.6) K/mm3 Eos # (Auto) 0.0 (0-0.3) K/mm3 Baso # (Auto) 0.0 (0.0-0.1) K/mm3 Abs Immat Gran (auto) 0.08 H (0.00-0.031) K/mm3 Absolute Neuts (auto) 13.8 H (1.3-6.7) K/mm3 Absolute Nucleated RBC 0.000 (0.0-0.012) K/mm3 Nucleated RBC % 0.0 (0.0-0.2) % PT 13.5 (11.1-14.7) Seconds INR 1.0 APTT 25.7 (22.3-36.8) Seconds Methemoglobin (0-1.5) %THb Sodium (137-145) mmol/L Potassium (3.4-5.0) mmol/L Chloride (98-107) mmol/L Carbon Dioxide (22-30) mmol/L Anion Gap (4-12) mmol/L BUN (9-20) mg/dL Creatinine (0.7-1.3) mg/dL Estim Creat Clear Calc ml/min Estimated GFR (59 - ) Glucose (65-110) mg/dL POC Capillary Glucose (65-105) mg/dl Lactic Acid 1.8 (0.7-2.0) mmol/L Calcium (8.4-10.2) mg/dL Magnesium (1.6-2.3) mg/dL Iron (49-181) ug/dL TIBC (265-497) ug/dL % Saturation (20-50) % Ferritin (11.1-264) ng/mL Total Bilirubin (0.2-1.3) mg/dL AST (17-59) U/L ALT (6-50) U/L Alkaline Phosphatase (38-126) U/L Troponin I 0.131 H* Cancelled (0.000-0.034) ng/mL C-Reactive Protein (<1.0) mg/dL Total Protein (6.3-8.2) g/dL Albumin (3.5-5.1) g/dL Lipase (23-300) U/L Vitamin B12 (239-931) pg/mL Folate (2.76->20) ng/mL Calcitonin Pending TSH 0.803 (0.465-4.680) uIU/mL TSH (Reflex) 0.870 (0.465-4.68) uIU/mL PTH Related Protein Pending Urine Color (Yellow) Urine Appearance (Clear) Urine pH (5.0-9.0) Ur Specific [place] (1.001-1.035) Urine Protein (Negative) mg/dL Urine Glucose (UA) (Negative) mg/dL Urine Ketones (Negative) mg/dL Ur Blood (Man) (Negative) Urine Nitrate (Negative) Urine Bilirubin (Negative) Urine Urobilinogen (<2.0) mg/dL Add Ur Microanalysis Leukocyte Esterase Rfl (Negative) FERNANDO/UL Urine RBC (0-2) /hpf Urine WBC (0-3) /hpf Ur Squamous Epith Cells (Few) /hpf Urine Bacteria /hpf Urine Casts Hyaline Casts (None) /lpf Urine Mucus /lpf Nasal MRSA (PCR) (NOT DETECTE) Urine Opiates Screen (Negative) Urine Methadone Screen (Negative) Ur Barbiturates Screen (Negative) Ur Phencyclidine Scrn (Negative) Ur Amphetamine Screen (Negative) U Benzodiazepines Scrn (Negative) Urine Cocaine Screen (Negative) U Cannabinoids Screen (Negative) Ethyl Alcohol (<10) mg/dL Influenza A (RT-PCR) Negative (Negative) Influenza B (RT-PCR) Negative (Negative) RSV (RT-PCR) Negative (Negative) SARS-CoV-2 RNA (RT-PCR) Negative (Negative) 10/17/24 10/17/24 10/17/24 Range/Units 17:13 19:52 20:50 WBC (4.5-10.0) K/mm3 RBC (4.6-6.20) M/mm3 Hgb (14.0-18.0) g/dL Hct (42.0-52.0) % MCV (80-100) fl MCH (26-34) pg MCHC (32-36) g/dl RDW (11.5-14.5) % Plt Count (150-375) k/mm3 MPV (7.4-10.4) fl Immature Gran % (Auto) (0-0.5) % Neut % (Auto) (45.5-73.1) % Lymph % (Auto) (18.3-44.2) % [place] % (Auto) (2.6-8.5) % Eos % (Auto) (0-4.4) % Baso % (Auto) (0.2-1.2) % Lymph # (Auto) (0.9-3.2) K/mm3 [place] # (Auto) (0.1-0.6) K/mm3 Eos # (Auto) (0-0.3) K/mm3 Baso # (Auto) (0.0-0.1) K/mm3 Abs Immat Gran (auto) (0.00-0.031) K/mm3 Absolute Neuts (auto) (1.3-6.7) K/mm3 Absolute Nucleated RBC (0.0-0.012) K/mm3 Nucleated RBC % (0.0-0.2) % PT (11.1-14.7) Seconds INR APTT 30.4 (22.3-36.8) Seconds Methemoglobin (0-1.5) %THb Sodium (137-145) mmol/L Potassium (3.4-5.0) mmol/L Chloride (98-107) mmol/L Carbon Dioxide (22-30) mmol/L Anion Gap (4-12) mmol/L BUN (9-20) mg/dL Creatinine (0.7-1.3) mg/dL Estim Creat Clear Calc ml/min Estimated GFR (59 - ) Glucose (65-110) mg/dL POC Capillary Glucose 332 H 218 H (65-105) mg/dl Lactic Acid (0.7-2.0) mmol/L Calcium (8.4-10.2) mg/dL Magnesium (1.6-2.3) mg/dL Iron (49-181) ug/dL TIBC (265-497) ug/dL % Saturation (20-50) % Ferritin (11.1-264) ng/mL Total Bilirubin (0.2-1.3) mg/dL AST (17-59) U/L ALT (6-50) U/L Alkaline Phosphatase (38-126) U/L Troponin I (0.000-0.034) ng/mL C-Reactive Protein (<1.0) mg/dL Total Protein (6.3-8.2) g/dL Albumin (3.5-5.1) g/dL Lipase (23-300) U/L Vitamin B12 (239-931) pg/mL Folate (2.76->20) ng/mL Calcitonin TSH (0.465-4.680) uIU/mL TSH (Reflex) (0.465-4.68) uIU/mL PTH Related Protein Urine Color (Yellow) Urine Appearance (Clear) Urine pH (5.0-9.0) Ur Specific [place] (1.001-1.035) Urine Protein (Negative) mg/dL Urine Glucose (UA) (Negative) mg/dL Urine Ketones (Negative) mg/dL Ur Blood (Man) (Negative) Urine Nitrate (Negative) Urine Bilirubin (Negative) Urine Urobilinogen (<2.0) mg/dL Add Ur Microanalysis Leukocyte Esterase Rfl (Negative) FERNANDO/UL Urine RBC (0-2) /hpf Urine WBC (0-3) /hpf Ur Squamous Epith Cells (Few) /hpf Urine Bacteria /hpf Urine Casts Hyaline Casts (None) /lpf Urine Mucus /lpf Nasal MRSA (PCR) (NOT DETECTE) Urine Opiates Screen (Negative) Urine Methadone Screen (Negative) Ur Barbiturates Screen (Negative) Ur Phencyclidine Scrn (Negative) Ur Amphetamine Screen (Negative) U Benzodiazepines Scrn (Negative) Urine Cocaine Screen (Negative) U Cannabinoids Screen (Negative) Ethyl Alcohol (<10) mg/dL Influenza A (RT-PCR) (Negative) Influenza B (RT-PCR) (Negative) RSV (RT-PCR) (Negative) SARS-CoV-2 RNA (RT-PCR) (Negative) 10/17/24 10/18/24 10/18/24 Range/Units 22:40 05:06 05:38 WBC 20.2 H (4.5-10.0) K/mm3 RBC 4.07 L (4.6-6.20) M/mm3 Hgb 14.3 (14.0-18.0) g/dL Hct 42.9 (42.0-52.0) % MCV 105.4 H (80-100) fl MCH 35.1 H (26-34) pg MCHC 33.3 (32-36) g/dl RDW 13.8 (11.5-14.5) % Plt Count 306 (150-375) k/mm3 MPV 10.6 H (7.4-10.4) fl Immature Gran % (Auto) 0.5 (0-0.5) % Neut % (Auto) 68.5 (45.5-73.1) % Lymph % (Auto) 19.1 (18.3-44.2) % [place] % (Auto) 11.1 H (2.6-8.5) % Eos % (Auto) 0.6 (0-4.4) % Baso % (Auto) 0.2 (0.2-1.2) % Lymph # (Auto) 3.85 H (0.9-3.2) K/mm3 [place] # (Auto) 2.2 H (0.1-0.6) K/mm3 Eos # (Auto) 0.1 (0-0.3) K/mm3 Baso # (Auto) 0.1 (0.0-0.1) K/mm3 Abs Immat Gran (auto) 0.10 H (0.00-0.031) K/mm3 Absolute Neuts (auto) 13.8 H (1.3-6.7) K/mm3 Absolute Nucleated RBC 0.000 (0.0-0.012) K/mm3 Nucleated RBC % 0.0 (0.0-0.2) % PT (11.1-14.7) Seconds INR APTT 47.7 H (22.3-36.8) Seconds Methemoglobin (0-1.5) %THb Sodium (137-145) mmol/L Potassium (3.4-5.0) mmol/L Chloride (98-107) mmol/L Carbon Dioxide (22-30) mmol/L Anion Gap (4-12) mmol/L BUN (9-20) mg/dL Creatinine (0.7-1.3) mg/dL Estim Creat Clear Calc ml/min Estimated GFR (59 - ) Glucose (65-110) mg/dL POC Capillary Glucose 232 H (65-105) mg/dl Lactic Acid (0.7-2.0) mmol/L Calcium (8.4-10.2) mg/dL Magnesium (1.6-2.3) mg/dL Iron (49-181) ug/dL TIBC (265-497) ug/dL % Saturation (20-50) % Ferritin (11.1-264) ng/mL Total Bilirubin (0.2-1.3) mg/dL AST (17-59) U/L ALT (6-50) U/L Alkaline Phosphatase (38-126) U/L Troponin I (0.000-0.034) ng/mL C-Reactive Protein (<1.0) mg/dL Total Protein (6.3-8.2) g/dL Albumin (3.5-5.1) g/dL Lipase (23-300) U/L Vitamin B12 (239-931) pg/mL Folate (2.76->20) ng/mL Calcitonin TSH (0.465-4.680) uIU/mL TSH (Reflex) (0.465-4.68) uIU/mL PTH Related Protein Urine Color (Yellow) Urine Appearance (Clear) Urine pH (5.0-9.0) Ur Specific [place] (1.001-1.035) Urine Protein (Negative) mg/dL Urine Glucose (UA) (Negative) mg/dL Urine Ketones (Negative) mg/dL Ur Blood (Man) (Negative) Urine Nitrate (Negative) Urine Bilirubin (Negative) Urine Urobilinogen (<2.0) mg/dL Add Ur Microanalysis Leukocyte Esterase Rfl (Negative) FERNANDO/UL Urine RBC (0-2) /hpf Urine WBC (0-3) /hpf Ur Squamous Epith Cells (Few) /hpf Urine Bacteria /hpf Urine Casts Hyaline Casts (None) /lpf Urine Mucus /lpf Nasal MRSA (PCR) (NOT DETECTE) Urine Opiates Screen (Negative) Urine Methadone Screen (Negative) Ur Barbiturates Screen (Negative) Ur Phencyclidine Scrn (Negative) Ur Amphetamine Screen (Negative) U Benzodiazepines Scrn (Negative) Urine Cocaine Screen (Negative) U Cannabinoids Screen (Negative) Ethyl Alcohol (<10) mg/dL Influenza A (RT-PCR) (Negative) Influenza B (RT-PCR) (Negative) RSV (RT-PCR) (Negative) SARS-CoV-2 RNA (RT-PCR) (Negative) 10/18/24 10/18/24 Range/Units 06:25 07:29 WBC (4.5-10.0) K/mm3 RBC (4.6-6.20) M/mm3 Hgb (14.0-18.0) g/dL Hct (42.0-52.0) % MCV (80-100) fl MCH (26-34) pg MCHC (32-36) g/dl RDW (11.5-14.5) % Plt Count (150-375) k/mm3 MPV (7.4-10.4) fl Immature Gran % (Auto) (0-0.5) % Neut % (Auto) (45.5-73.1) % Lymph % (Auto) (18.3-44.2) % [place] % (Auto) (2.6-8.5) % Eos % (Auto) (0-4.4) % Baso % (Auto) (0.2-1.2) % Lymph # (Auto) (0.9-3.2) K/mm3 [place] # (Auto) (0.1-0.6) K/mm3 Eos # (Auto) (0-0.3) K/mm3 Baso # (Auto) (0.0-0.1) K/mm3 Abs Immat Gran (auto) (0.00-0.031) K/mm3 Absolute Neuts (auto) (1.3-6.7) K/mm3 Absolute Nucleated RBC (0.0-0.012) K/mm3 Nucleated RBC % (0.0-0.2) % PT (11.1-14.7) Seconds INR APTT (22.3-36.8) Seconds Methemoglobin (0-1.5) %THb Sodium 136 L (137-145) mmol/L Potassium 4.0 (3.4-5.0) mmol/L Chloride 103 (98-107) mmol/L Carbon Dioxide 25 (22-30) mmol/L Anion Gap 8 (4-12) mmol/L BUN 32 H D (9-20) mg/dL Creatinine 1.42 H (0.7-1.3) mg/dL Estim Creat Clear Calc 54 ml/min Estimated GFR 50 L (59 - ) Glucose 236 H (65-110) mg/dL POC Capillary Glucose 216 H (65-105) mg/dl Lactic Acid (0.7-2.0) mmol/L Calcium 10.2 (8.4-10.2) mg/dL Magnesium 1.6 (1.6-2.3) mg/dL Iron 54 (49-181) ug/dL TIBC 286 (265-497) ug/dL % Saturation 19 L (20-50) % Ferritin 162.00 (11.1-264) ng/mL Total Bilirubin 0.8 (0.2-1.3) mg/dL AST 38 (17-59) U/L ALT 33 (6-50) U/L Alkaline Phosphatase 101 (38-126) U/L Troponin I (0.000-0.034) ng/mL C-Reactive Protein (<1.0) mg/dL Total Protein 7.0 (6.3-8.2) g/dL Albumin 3.7 (3.5-5.1) g/dL Lipase (23-300) U/L Vitamin B12 949.0 H (239-931) pg/mL Folate > 20.0 H (2.76->20) ng/mL Calcitonin TSH (0.465-4.680) uIU/mL TSH (Reflex) (0.465-4.68) uIU/mL PTH Related Protein Urine Color (Yellow) Urine Appearance (Clear) Urine pH (5.0-9.0) Ur Specific [place] (1.001-1.035) Urine Protein (Negative) mg/dL Urine Glucose (UA) (Negative) mg/dL Urine Ketones (Negative) mg/dL Ur Blood (Man) (Negative) Urine Nitrate (Negative) Urine Bilirubin (Negative) Urine Urobilinogen (<2.0) mg/dL Add Ur Microanalysis Leukocyte Esterase Rfl (Negative) FERNANDO/UL Urine RBC (0-2) /hpf Urine WBC (0-3) /hpf Ur Squamous Epith Cells (Few) /hpf Urine Bacteria /hpf Urine Casts Hyaline Casts (None) /lpf Urine Mucus /lpf Nasal MRSA (PCR) (NOT DETECTE) Urine Opiates Screen (Negative) Urine Methadone Screen (Negative) Ur Barbiturates Screen (Negative) Ur Phencyclidine Scrn (Negative) Ur Amphetamine Screen (Negative) U Benzodiazepines Scrn (Negative) Urine Cocaine Screen (Negative) U Cannabinoids Screen (Negative) Ethyl Alcohol (<10) mg/dL Influenza A (RT-PCR) (Negative) Influenza B (RT-PCR) (Negative) RSV (RT-PCR) (Negative) SARS-CoV-2 RNA (RT-PCR) (Negative) <Arabella Underwood, [employer] - Last Filed: 10/20/24 17:10> Lab Results 10/17/24 10/17/24 10/17/24 Range/Units 09:36 11:24 11:45 WBC 18.3 H (4.5-10.0) K/mm3 RBC 4.40 L (4.6-6.20) M/mm3 Hgb 15.5 D (14.0-18.0) g/dL Hct 43.6 (42.0-52.0) % MCV 99.1 (80-100) fl MCH 35.2 H (26-34) pg MCHC 35.6 (32-36) g/dl RDW 13.7 (11.5-14.5) % Plt Count 394 H D (150-375) k/mm3 MPV 10.6 H (7.4-10.4) fl Immature Gran % (Auto) 0.5 (0-0.5) % Neut % (Auto) 76.3 H (45.5-73.1) % Lymph % (Auto) 14.9 L (18.3-44.2) % [place] % (Auto) 8.1 (2.6-8.5) % Eos % (Auto) 0.1 (0-4.4) % Baso % (Auto) 0.1 L (0.2-1.2) % Lymph # (Auto) 2.74 (0.9-3.2) K/mm3 [place] # (Auto) 1.5 H (0.1-0.6) K/mm3 Eos # (Auto) 0.0 (0-0.3) K/mm3 Baso # (Auto) 0.0 (0.0-0.1) K/mm3 Abs Immat Gran (auto) 0.09 H (0.00-0.031) K/mm3 Absolute Neuts (auto) 14.0 H (1.3-6.7) K/mm3 Absolute Nucleated RBC 0.000 (0.0-0.012) K/mm3 Nucleated RBC % 0.0 (0.0-0.2) % PT 13.9 (11.1-14.7) Seconds INR 1.0 APTT 25.2 (22.3-36.8) Seconds Methemoglobin 0.1 (0-1.5) %THb Sodium 132 L (137-145) mmol/L Potassium 4.8 (3.4-5.0) mmol/L Chloride 92 L (98-107) mmol/L Carbon Dioxide 24 (22-30) mmol/L Anion Gap 16 H (4-12) mmol/L BUN 42 H D (9-20) mg/dL Creatinine 1.91 H (0.7-1.3) mg/dL Estim Creat Clear Calc 51 ml/min Estimated GFR 36 L (59 - ) Glucose 379 H (65-110) mg/dL POC Capillary Glucose (65-105) mg/dl Lactic Acid (0.7-2.0) mmol/L Calcium 12.2 H* (8.4-10.2) mg/dL Magnesium 1.4 L (1.6-2.3) mg/dL Iron (49-181) ug/dL TIBC (265-497) ug/dL % Saturation (20-50) % Ferritin (11.1-264) ng/mL Total Bilirubin 0.9 (0.2-1.3) mg/dL AST 49 (17-59) U/L ALT 37 (6-50) U/L Alkaline Phosphatase 118 (38-126) U/L Troponin I 0.123 H* (0.000-0.034) ng/mL C-Reactive Protein 0.5 (<1.0) mg/dL Total Protein 8.0 (6.3-8.2) g/dL Albumin 4.7 (3.5-5.1) g/dL Lipase 121 (23-300) U/L Vitamin B12 (239-931) pg/mL Folate (2.76->20) ng/mL Calcitonin TSH (0.465-4.680) uIU/mL TSH (Reflex) 0.981 (0.465-4.68) uIU/mL PTH Related Protein Urine Color Yellow (Yellow) Urine Appearance Clear (Clear) Urine pH 5.5 (5.0-9.0) Ur Specific [place] 1.035 (1.001-1.035) Urine Protein 4+ H (Negative) mg/dL Urine Glucose (UA) 3+ H (Negative) mg/dL Urine Ketones 1+ H (Negative) mg/dL Ur Blood (Man) 3+ H (Negative) Urine Nitrate Negative (Negative) Urine Bilirubin Negative (Negative) Urine Urobilinogen 0.2 (<2.0) mg/dL Add Ur Microanalysis Reviewed Leukocyte Esterase Rfl Negative (Negative) FERNANDO/UL Urine RBC 3-5 H (0-2) /hpf Urine WBC 0-5 (0-3) /hpf Ur Squamous Epith Cells Occasional (Few) /hpf Urine Bacteria None seen /hpf Urine Casts >20 Hyaline Casts 3-4 H (None) /lpf Urine Mucus Present /lpf Nasal MRSA (PCR) Not detected (NOT DETECTE) Urine Opiates Screen Negative (Negative) Urine Methadone Screen Negative (Negative) Ur Barbiturates Screen Negative (Negative) Ur Phencyclidine Scrn Negative (Negative) Ur Amphetamine Screen Negative (Negative) U Benzodiazepines Scrn Negative (Negative) Urine Cocaine Screen Positive A (Negative) U Cannabinoids Screen Positive A (Negative) Ethyl Alcohol < 10 (<10) mg/dL Influenza A (RT-PCR) (Negative) Influenza B (RT-PCR) (Negative) RSV (RT-PCR) (Negative) SARS-CoV-2 RNA (RT-PCR) (Negative) 10/17/24 10/17/24 10/17/24 Range/Units 12:08 15:53 15:54 WBC 19.8 H (4.5-10.0) K/mm3 RBC 4.38 L (4.6-6.20) M/mm3 Hgb 15.4 (14.0-18.0) g/dL Hct 45.9 (42.0-52.0) % MCV 104.8 H D (80-100) fl MCH 35.2 H (26-34) pg MCHC 33.6 (32-36) g/dl RDW 14.1 (11.5-14.5) % Plt Count 384 H (150-375) k/mm3 MPV 10.3 (7.4-10.4) fl Immature Gran % (Auto) 0.4 (0-0.5) % Neut % (Auto) 69.7 (45.5-73.1) % Lymph % (Auto) 18.0 L (18.3-44.2) % [place] % (Auto) 11.6 H (2.6-8.5) % Eos % (Auto) 0.1 (0-4.4) % Baso % (Auto) 0.2 (0.2-1.2) % Lymph # (Auto) 3.56 H (0.9-3.2) K/mm3 [place] # (Auto) 2.3 H (0.1-0.6) K/mm3 Eos # (Auto) 0.0 (0-0.3) K/mm3 Baso # (Auto) 0.0 (0.0-0.1) K/mm3 Abs Immat Gran (auto) 0.08 H (0.00-0.031) K/mm3 Absolute Neuts (auto) 13.8 H (1.3-6.7) K/mm3 Absolute Nucleated RBC 0.000 (0.0-0.012) K/mm3 Nucleated RBC % 0.0 (0.0-0.2) % PT 13.5 (11.1-14.7) Seconds INR 1.0 APTT 25.7 (22.3-36.8) Seconds Methemoglobin (0-1.5) %THb Sodium (137-145) mmol/L Potassium (3.4-5.0) mmol/L Chloride (98-107) mmol/L Carbon Dioxide (22-30) mmol/L Anion Gap (4-12) mmol/L BUN (9-20) mg/dL Creatinine (0.7-1.3) mg/dL Estim Creat Clear Calc ml/min Estimated GFR (59 - ) Glucose (65-110) mg/dL POC Capillary Glucose (65-105) mg/dl Lactic Acid 1.8 (0.7-2.0) mmol/L Calcium (8.4-10.2) mg/dL Magnesium (1.6-2.3) mg/dL Iron (49-181) ug/dL TIBC (265-497) ug/dL % Saturation (20-50) % Ferritin (11.1-264) ng/mL Total Bilirubin (0.2-1.3) mg/dL AST (17-59) U/L ALT (6-50) U/L Alkaline Phosphatase (38-126) U/L Troponin I 0.131 H* Cancelled (0.000-0.034) ng/mL C-Reactive Protein (<1.0) mg/dL Total Protein (6.3-8.2) g/dL Albumin (3.5-5.1) g/dL Lipase (23-300) U/L Vitamin B12 (239-931) pg/mL Folate (2.76->20) ng/mL Calcitonin Pending TSH 0.803 (0.465-4.680) uIU/mL TSH (Reflex) 0.870 (0.465-4.68) uIU/mL PTH Related Protein Pending Urine Color (Yellow) Urine Appearance (Clear) Urine pH (5.0-9.0) Ur Specific [place] (1.001-1.035) Urine Protein (Negative) mg/dL Urine Glucose (UA) (Negative) mg/dL Urine Ketones (Negative) mg/dL Ur Blood (Man) (Negative) Urine Nitrate (Negative) Urine Bilirubin (Negative) Urine Urobilinogen (<2.0) mg/dL Add Ur Microanalysis Leukocyte Esterase Rfl (Negative) FERNANDO/UL Urine RBC (0-2) /hpf Urine WBC (0-3) /hpf Ur Squamous Epith Cells (Few) /hpf Urine Bacteria /hpf Urine Casts Hyaline Casts (None) /lpf Urine Mucus /lpf Nasal MRSA (PCR) (NOT DETECTE) Urine Opiates Screen (Negative) Urine Methadone Screen (Negative) Ur Barbiturates Screen (Negative) Ur Phencyclidine Scrn (Negative) Ur Amphetamine Screen (Negative) U Benzodiazepines Scrn (Negative) Urine Cocaine Screen (Negative) U Cannabinoids Screen (Negative) Ethyl Alcohol (<10) mg/dL Influenza A (RT-PCR) Negative (Negative) Influenza B (RT-PCR) Negative (Negative) RSV (RT-PCR) Negative (Negative) SARS-CoV-2 RNA (RT-PCR) Negative (Negative) 10/17/24 10/17/24 10/17/24 Range/Units 17:13 19:52 20:50 WBC (4.5-10.0) K/mm3 RBC (4.6-6.20) M/mm3 Hgb (14.0-18.0) g/dL Hct (42.0-52.0) % MCV (80-100) fl MCH (26-34) pg MCHC (32-36) g/dl RDW (11.5-14.5) % Plt Count (150-375) k/mm3 MPV (7.4-10.4) fl Immature Gran % (Auto) (0-0.5) % Neut % (Auto) (45.5-73.1) % Lymph % (Auto) (18.3-44.2) % [place] % (Auto) (2.6-8.5) % Eos % (Auto) (0-4.4) % Baso % (Auto) (0.2-1.2) % Lymph # (Auto) (0.9-3.2) K/mm3 [place] # (Auto) (0.1-0.6) K/mm3 Eos # (Auto) (0-0.3) K/mm3 Baso # (Auto) (0.0-0.1) K/mm3 Abs Immat Gran (auto) (0.00-0.031) K/mm3 Absolute Neuts (auto) (1.3-6.7) K/mm3 Absolute Nucleated RBC (0.0-0.012) K/mm3 Nucleated RBC % (0.0-0.2) % PT (11.1-14.7) Seconds INR APTT 30.4 (22.3-36.8) Seconds Methemoglobin (0-1.5) %THb Sodium (137-145) mmol/L Potassium (3.4-5.0) mmol/L Chloride (98-107) mmol/L Carbon Dioxide (22-30) mmol/L Anion Gap (4-12) mmol/L BUN (9-20) mg/dL Creatinine (0.7-1.3) mg/dL Estim Creat Clear Calc ml/min Estimated GFR (59 - ) Glucose (65-110) mg/dL POC Capillary Glucose 332 H 218 H (65-105) mg/dl Lactic Acid (0.7-2.0) mmol/L Calcium (8.4-10.2) mg/dL Magnesium (1.6-2.3) mg/dL Iron (49-181) ug/dL TIBC (265-497) ug/dL % Saturation (20-50) % Ferritin (11.1-264) ng/mL Total Bilirubin (0.2-1.3) mg/dL AST (17-59) U/L ALT (6-50) U/L Alkaline Phosphatase (38-126) U/L Troponin I (0.000-0.034) ng/mL C-Reactive Protein (<1.0) mg/dL Total Protein (6.3-8.2) g/dL Albumin (3.5-5.1) g/dL Lipase (23-300) U/L Vitamin B12 (239-931) pg/mL Folate (2.76->20) ng/mL Calcitonin TSH (0.465-4.680) uIU/mL TSH (Reflex) (0.465-4.68) uIU/mL PTH Related Protein Urine Color (Yellow) Urine Appearance (Clear) Urine pH (5.0-9.0) Ur Specific [place] (1.001-1.035) Urine Protein (Negative) mg/dL Urine Glucose (UA) (Negative) mg/dL Urine Ketones (Negative) mg/dL Ur Blood (Man) (Negative) Urine Nitrate (Negative) Urine Bilirubin (Negative) Urine Urobilinogen (<2.0) mg/dL Add Ur Microanalysis Leukocyte Esterase Rfl (Negative) FERNANDO/UL Urine RBC (0-2) /hpf Urine WBC (0-3) /hpf Ur Squamous Epith Cells (Few) /hpf Urine Bacteria /hpf Urine Casts Hyaline Casts (None) /lpf Urine Mucus /lpf Nasal MRSA (PCR) (NOT DETECTE) Urine Opiates Screen (Negative) Urine Methadone Screen (Negative) Ur Barbiturates Screen (Negative) Ur Phencyclidine Scrn (Negative) Ur Amphetamine Screen (Negative) U Benzodiazepines Scrn (Negative) Urine Cocaine Screen (Negative) U Cannabinoids Screen (Negative) Ethyl Alcohol (<10) mg/dL Influenza A (RT-PCR) (Negative) Influenza B (RT-PCR) (Negative) RSV (RT-PCR) (Negative) SARS-CoV-2 RNA (RT-PCR) (Negative) 10/17/24 10/18/24 10/18/24 Range/Units 22:40 05:06 05:38 WBC 20.2 H (4.5-10.0) K/mm3 RBC 4.07 L (4.6-6.20) M/mm3 Hgb 14.3 (14.0-18.0) g/dL Hct 42.9 (42.0-52.0) % MCV 105.4 H (80-100) fl MCH 35.1 H (26-34) pg MCHC 33.3 (32-36) g/dl RDW 13.8 (11.5-14.5) % Plt Count 306 (150-375) k/mm3 MPV 10.6 H (7.4-10.4) fl Immature Gran % (Auto) 0.5 (0-0.5) % Neut % (Auto) 68.5 (45.5-73.1) % Lymph % (Auto) 19.1 (18.3-44.2) % [place] % (Auto) 11.1 H (2.6-8.5) % Eos % (Auto) 0.6 (0-4.4) % Baso % (Auto) 0.2 (0.2-1.2) % Lymph # (Auto) 3.85 H (0.9-3.2) K/mm3 [place] # (Auto) 2.2 H (0.1-0.6) K/mm3 Eos # (Auto) 0.1 (0-0.3) K/mm3 Baso # (Auto) 0.1 (0.0-0.1) K/mm3 Abs Immat Gran (auto) 0.10 H (0.00-0.031) K/mm3 Absolute Neuts (auto) 13.8 H (1.3-6.7) K/mm3 Absolute Nucleated RBC 0.000 (0.0-0.012) K/mm3 Nucleated RBC % 0.0 (0.0-0.2) % PT (11.1-14.7) Seconds INR APTT 47.7 H (22.3-36.8) Seconds Methemoglobin (0-1.5) %THb Sodium (137-145) mmol/L Potassium (3.4-5.0) mmol/L Chloride (98-107) mmol/L Carbon Dioxide (22-30) mmol/L Anion Gap (4-12) mmol/L BUN (9-20) mg/dL Creatinine (0.7-1.3) mg/dL Estim Creat Clear Calc ml/min Estimated GFR (59 - ) Glucose (65-110) mg/dL POC Capillary Glucose 232 H (65-105) mg/dl Lactic Acid (0.7-2.0) mmol/L Calcium (8.4-10.2) mg/dL Magnesium (1.6-2.3) mg/dL Iron (49-181) ug/dL TIBC (265-497) ug/dL % Saturation (20-50) % Ferritin (11.1-264) ng/mL Total Bilirubin (0.2-1.3) mg/dL AST (17-59) U/L ALT (6-50) U/L Alkaline Phosphatase (38-126) U/L Troponin I (0.000-0.034) ng/mL C-Reactive Protein (<1.0) mg/dL Total Protein (6.3-8.2) g/dL Albumin (3.5-5.1) g/dL Lipase (23-300) U/L Vitamin B12 (239-931) pg/mL Folate (2.76->20) ng/mL Calcitonin TSH (0.465-4.680) uIU/mL TSH (Reflex) (0.465-4.68) uIU/mL PTH Related Protein Urine Color (Yellow) Urine Appearance (Clear) Urine pH (5.0-9.0) Ur Specific [place] (1.001-1.035) Urine Protein (Negative) mg/dL Urine Glucose (UA) (Negative) mg/dL Urine Ketones (Negative) mg/dL Ur Blood (Man) (Negative) Urine Nitrate (Negative) Urine Bilirubin (Negative) Urine Urobilinogen (<2.0) mg/dL Add Ur Microanalysis Leukocyte Esterase Rfl (Negative) FERNANDO/UL Urine RBC (0-2) /hpf Urine WBC (0-3) /hpf Ur Squamous Epith Cells (Few) /hpf Urine Bacteria /hpf Urine Casts Hyaline Casts (None) /lpf Urine Mucus /lpf Nasal MRSA (PCR) (NOT DETECTE) Urine Opiates Screen (Negative) Urine Methadone Screen (Negative) Ur Barbiturates Screen (Negative) Ur Phencyclidine Scrn (Negative) Ur Amphetamine Screen (Negative) U Benzodiazepines Scrn (Negative) Urine Cocaine Screen (Negative) U Cannabinoids Screen (Negative) Ethyl Alcohol (<10) mg/dL Influenza A (RT-PCR) (Negative) Influenza B (RT-PCR) (Negative) RSV (RT-PCR) (Negative) SARS-CoV-2 RNA (RT-PCR) (Negative) 10/18/24 10/18/24 Range/Units 06:25 07:29 WBC (4.5-10.0) K/mm3 RBC (4.6-6.20) M/mm3 Hgb (14.0-18.0) g/dL Hct (42.0-52.0) % MCV (80-100) fl MCH (26-34) pg MCHC (32-36) g/dl RDW (11.5-14.5) % Plt Count (150-375) k/mm3 MPV (7.4-10.4) fl Immature Gran % (Auto) (0-0.5) % Neut % (Auto) (45.5-73.1) % Lymph % (Auto) (18.3-44.2) % [place] % (Auto) (2.6-8.5) % Eos % (Auto) (0-4.4) % Baso % (Auto) (0.2-1.2) % Lymph # (Auto) (0.9-3.2) K/mm3 [place] # (Auto) (0.1-0.6) K/mm3 Eos # (Auto) (0-0.3) K/mm3 Baso # (Auto) (0.0-0.1) K/mm3 Abs Immat Gran (auto) (0.00-0.031) K/mm3 Absolute Neuts (auto) (1.3-6.7) K/mm3 Absolute Nucleated RBC (0.0-0.012) K/mm3 Nucleated RBC % (0.0-0.2) % PT (11.1-14.7) Seconds INR APTT (22.3-36.8) Seconds Methemoglobin (0-1.5) %THb Sodium 136 L (137-145) mmol/L Potassium 4.0 (3.4-5.0) mmol/L Chloride 103 (98-107) mmol/L Carbon Dioxide 25 (22-30) mmol/L Anion Gap 8 (4-12) mmol/L BUN 32 H D (9-20) mg/dL Creatinine 1.42 H (0.7-1.3) mg/dL Estim Creat Clear Calc 54 ml/min Estimated GFR 50 L (59 - ) Glucose 236 H (65-110) mg/dL POC Capillary Glucose 216 H (65-105) mg/dl Lactic Acid (0.7-2.0) mmol/L Calcium 10.2 (8.4-10.2) mg/dL Magnesium 1.6 (1.6-2.3) mg/dL Iron 54 (49-181) ug/dL TIBC 286 (265-497) ug/dL % Saturation 19 L (20-50) % Ferritin 162.00 (11.1-264) ng/mL Total Bilirubin 0.8 (0.2-1.3) mg/dL AST 38 (17-59) U/L ALT 33 (6-50) U/L Alkaline Phosphatase 101 (38-126) U/L Troponin I (0.000-0.034) ng/mL C-Reactive Protein (<1.0) mg/dL Total Protein 7.0 (6.3-8.2) g/dL Albumin 3.7 (3.5-5.1) g/dL Lipase (23-300) U/L Vitamin B12 949.0 H (239-931) pg/mL Folate > 20.0 H (2.76->20) ng/mL Calcitonin TSH (0.465-4.680) uIU/mL TSH (Reflex) (0.465-4.68) uIU/mL PTH Related Protein Urine Color (Yellow) Urine Appearance (Clear) Urine pH (5.0-9.0) Ur Specific [place] (1.001-1.035) Urine Protein (Negative) mg/dL Urine Glucose (UA) (Negative) mg/dL Urine Ketones (Negative) mg/dL Ur Blood (Man) (Negative) Urine Nitrate (Negative) Urine Bilirubin (Negative) Urine Urobilinogen (<2.0) mg/dL Add Ur Microanalysis Leukocyte Esterase Rfl (Negative) FERNANDO/UL Urine RBC (0-2) /hpf Urine WBC (0-3) /hpf Ur Squamous Epith Cells (Few) /hpf Urine Bacteria /hpf Urine Casts Hyaline Casts (None) /lpf Urine Mucus /lpf Nasal MRSA (PCR) (NOT DETECTE) Urine Opiates Screen (Negative) Urine Methadone Screen (Negative) Ur Barbiturates Screen (Negative) Ur Phencyclidine Scrn (Negative) Ur Amphetamine Screen (Negative) U Benzodiazepines Scrn (Negative) Urine Cocaine Screen (Negative) U Cannabinoids Screen (Negative) Ethyl Alcohol (<10) mg/dL Influenza A (RT-PCR) (Negative) Influenza B (RT-PCR) (Negative) RSV (RT-PCR) (Negative) SARS-CoV-2 RNA (RT-PCR) (Negative) <Rick Mccauley MD - Last Filed: 10/17/24 19:16> ABG Data ABG results: 10/17/24 11:24 Puncture Site Left radial ABG pH 7.509 H* ABG pCO2 29.2 L ABG pO2 83.7 ABG PO2/FiO2 Ratio 3.99 ABG HCO3 22.7 ABG O2 Saturation 97.2 ABG O2 Content 20.8 ABG Base Excess 0.9 A-a Gradient 31.1 Oxyhemoglobin 96.0 Carboxyhemoglobin 0.7 Reduced Hemoglobin 3.2 Total Hemoglobin 15.4 O2 Delivery Device Room air O2 Liters/Min Not Reportable FiO2 21 <Arabella Underwood APRN - Last Filed: 10/20/24 17:10> 10/17/24 11:24 Puncture Site Left radial ABG pH 7.509 H* ABG pCO2 29.2 L ABG pO2 83.7 ABG PO2/FiO2 Ratio 3.99 ABG HCO3 22.7 ABG O2 Saturation 97.2 ABG O2 Content 20.8 ABG Base Excess 0.9 A-a Gradient 31.1 Oxyhemoglobin 96.0 Carboxyhemoglobin 0.7 Reduced Hemoglobin 3.2 Total Hemoglobin 15.4 O2 Delivery Device Room air O2 Liters/Min Not Reportable FiO2 21 <Rick Mccauley MD - Last Filed: 10/17/24 19:16> Discharge Plan Discharge Clinical Impression: CONNIE (acute kidney injury), Altered mental status, Sepsis, Elevated troponin I level <Arabella Underwood APRN - Last Filed: 10/20/24 17:10> Patient Disposition: Still a Patient <Arabella Underwood APRN - Last Filed: 10/20/24 17:10> Condition: Guarded Prognosis <Arabella Underwood APRN - Last Filed: 10/20/24 17:10>
[2024-10-17 10:08] LABS: Add Urine Microscopic? YES; Alanine Aminotransferase 37 U/L (6-50); Albumin Level 4.7 g/dL (3.5-5.1); Alkaline Phosphatase 118 U/L (38-126); Anion Gap 16 mmol/L (4-12); Appearance Urine Clear (Clear); Aspartate Amino Transferase 49 U/L (17-59); Bacteria Urine None Seen /hpf; Bilirubin Urine Negative (Negative); Bilirubin,Total 0.9 mg/dL (0.2-1.3); Blood Urea Nitrogen 42 mg/dL (9-20); Blood Urine 3+ (Negative); Calcium 12.2 mg/dL (8.4-10.2); Carbon Dioxide 24 mmol/L (22-30); Chloride 92 mmol/L (98-107); Color Urine Yellow (Yellow); Estimated CRCL calculation 51 ml/min; Estimated Glomerular Filt Rate 36; Glucose 379 mg/dL (65-110); Glucose Urine UA 3+ mg/dL (Negative); Ketones Urine 1+ mg/dL (Negative); Leukocyte Esterase Ur Negative LEU/UL (Negative); Mucus Urine Present /lpf; Need Manual Microscopic Reviewed; Nitrate Urine Negative (Negative); Non Pathogenic Casts >20; Potassium 4.8 mmol/L (3.4-5.0); Protein Urine 4+ mg/dL (Negative); Sodium 132 mmol/L (137-145); Specific Grav Ur 1.035 (1.001-1.035); Squamous Epithelial Cell Urine Occasional /hpf (Few); Urobilinogen Urine 0.2 mg/dL (<2.0); WBC Urine 0-5 /hpf (0-3); pH Urine 5.5 (5.0-9.0)
[2024-10-17 10:40] LABS: Ethanol < 10 mg/dL (<10)
[2024-10-17 10:44] LABS: Lipase 121 U/L (23-300); Troponin I 0.123 ng/mL (0.000-0.034)
[2024-10-17 10:47] LABS: CRP 0.5 mg/dL (<1.0)
--- NOTE | 2024-10-17 10:48 | PC.NURSE ---
pt vomited x1 all over floor and himself. Cleaned linens and pt of emesis. Placed back om monitor and new gown and warm blanket applied.
[2024-10-17 10:50] LABS: Amphetamine Screen Urine Negative (Negative); Barbiturate Screen Urine Negative (Negative); Benzodiazepines Screen Urine Negative (Negative); Cannabinoid Screen Urine Positive (Negative); Cocaine Screen Urine Positive (Negative); Methadone Screen Urine Negative (Negative); Opiate Screen Urine Negative (Negative); Phencyclidine Screen Urine Negative (Negative)
[2024-10-17] MEDS: METOCLOPRAMIDE HCL INJ 10 MG/2 ML VIAL IV PUSH (11:04)
[2024-10-17] MEDS: SODIUM CHLORIDE 0.9% IV 1,000 ML 999 ML IV CONT ×2 (11:04→12:14)
[2024-10-17] MEDS: diphenhydrAMINE HCl INJ 50 MG/ML VIAL 25 MG IV PUSH (11:04)
--- NOTE | 2024-10-17 11:15 | PC.NURSE ---
Found pt lying on his abdomen, no covers on, IV tubing twisted around him. Oriented pt to his back and straightened his IV tubing.
--- NOTE | 2024-10-17 11:26 | PC.NURSE ---
Per Darling, caregiver's number is [phone]. She is unsure of caregiver's name.
[2024-10-17 11:32] LABS: Alveolar/Arterial O2 Gradient 31.1 mmHg; Base Excess ABG 0.9 mEq/l (+/-2.0); Carboxyhemoglobin 0.7 % THb (0-2.0); Fractional Inspired Oxygen 21 %; HCO3 ABG 22.7 mEq/l (22.0-26.0); Methemoglobin ABG 0.1 %THb (0-1.5); Oxygen Content ABG 20.8 %vol (16.0-22.0); Oxygen Saturation ABG 97.2 % (95.0-100.0); PCO2 ABG 29.2 mmHg (35.0-45.0); PO2 ABG 83.7 mmHg (80.0-100.0); PO2 FiO2 Ratio Arterial Blood 3.99 %; Reduced Hemoglobin 3.2 %THb (0-5.0); Total Hemoglobin 15.4 g/dL (12.0-18.0)
[2024-10-17 11:33] LABS: Device ROOM AIR; Modified Allen's Test Pass; Site Drawn LEFT RADIAL; pH ABG 7.509 (7.350-7.450)
[2024-10-17 12:01] LABS: Magnesium 1.4 mg/dL (1.6-2.3)
--- NOTE | 2024-10-17 12:01 | PC.NURSE ---
Pt more alert & aware of his surroundings. Pt no longer visual & auditory hallucinations. Staff attempting to collect bloody cultures without success.
--- NOTE | 2024-10-17 12:07 | PC.NURSE ---
Bag Adjuster requesting Covid/FLU/RSV swab before giving room assignment
[2024-10-17] MEDS: CEFEPIME 2 GM/NS 50 ML 2 GM/50 ML BAG IVPB ×2 (12:14→22:11)
[2024-10-17 12:31] LABS: Thyroid Stimulating Hormone Reflex 0.981 uIU/mL (0.465-4.68)
[2024-10-17 12:32] LABS: Lactic Acid Reflex 1.8 mmol/L (0.7-2.0)
[2024-10-17 12:53] LABS: Influenza A QL RT-PCR Negative (Negative); Influenza B QL RT-PCR Negative (Negative); RSV RNA, RT-PCR Negative (Negative); SARS-CoV-2 RNA PCR Negative (Negative)
[2024-10-17] MEDS: VANCOMYCIN 1,250 MG/NS 250 ML 1,250 MG/250 ML BAG 166.67 MG IVPB (12:56)
--- NOTE | 2024-10-17 12:57 | PC.NURSE ---
Pt incontinent of urine. Mona Care given, reinforced call light to usse for bathroom
[2024-10-17 13:00] LABS: MRSA (PCR) NOT DETECTED (NOT DETECTE)
--- NOTE | 2024-10-17 13:33 | ECG_ITS ---
Test Date: 2024-10-17 13:37:11 Measurements Intervals [place] Rate: 112 P: 0 CO: 0 QRS: -89 QRSD: 166 T: 0 QT: 312 QTc: 426 Interpretive Statements ECTOPIC ATRIAL TACHCYARDIA RIGHT BUNDLE BRANCH BLOCK [120+ ms QRS DURATION, UPRIGHT V1, 40+ ms S IN I/aVL/V4/V5/V6] LEFT VENTRICULAR HYPERTROPHY AND ST-T CHANGE [VOLTAGE CRITERIA PLUS ST/T ABNORMALITY] OLD INFERIOR INFARCT ST ELEVATION IN THE INFEROLATERAL LEADS, WHICH IS NOTED ON PRIOR EKG Compared to ECG 10/17/2024 09:18:44 No significant changes Electronically Signed On 10-18-2024 16:38:11 CDT by Jadon Baxter M.D.
--- NOTE | 2024-10-17 13:47 | PC.NURSE ---
Lab refused 3 hour troponin sample due to hemolysis
--- NOTE | 2024-10-17 14:18 | ECG_ITS ---
Test Date: 2024-10-17 14:18:41 Measurements Intervals [place] Rate: 109 P: -25 IA: 122 QRS: -83 QRSD: 164 T: 49 QT: 321 QTc: 434 Interpretive Statements ECTOPIC ATRIAL TACHCYARDIA WITH OCCASIONAL SUPRAVENTRICULAR PREMATURE COMPLEXES RIGHT BUNDLE BRANCH BLOCK [120+ ms QRS DURATION, UPRIGHT V1, 40+ ms S IN I/aVL/V4/V5/V6] LEFT VENTRICULAR HYPERTROPHY AND ST-T CHANGE [VOLTAGE CRITERIA PLUS ST/T ABNORMALITY] LD INFERIOR INFARCT ST ELEVATION IN THE INFEROLATERAL LEADS, WHICH IS NOTED ON PRIOR EKG WARNING: DATA QUALITY MAY AFFECT INTERPRETATION Compared to ECG 10/17/2024 13:37:11 No significant changes Electronically Signed On 10-18-2024 16:39:06 CDT by Jadon Baxter M.D.
--- NOTE | 2024-10-17 15:32 | PM.CNCAR ---
Assessment and Plan Assessment and plan (1) Elevated troponin: Code(s): R79.89 - Other specified abnormal findings of blood chemistry Status: Acute Assessment and Plan: His troponin is elevated at 0.123. He denies any chest pain. EKG shows sinus tachycardia with right bundle branch block. EKGs performed today are unchanged from his previous admission in September. At this point, I do not think that his elevated troponin level is cash applications representative of any acute coronary syndrome. Will continue to trend troponins. Other reasons for troponin elevation include acute kidney injury, infection, cocaine use. It appears that he receives a lot of his medical care at [facility]. Will request records to see if he has had any sort of ischemic evaluation in the recent past. (2) Essential hypertension: Code(s): I10 - Essential (primary) hypertension Status: Chronic Assessment and Plan: Improving. (3) UTI (urinary tract infection): Code(s): N39.0 - Urinary tract infection, site not specified Status: Acute Assessment and Plan: Antibiotics per hospitalist. History of Present Illness History of Present Illness Consult date/time: 10/17/24 15:32 Requesting physician: Arabella Underwood APRN Consult reason: Other (elevated troponin) Reason For Visit: elevated troponins, CONNIE, hypercalcemia Narrative: Basilio Riley is a 64-year-old male with pacemaker, AGNIESZKA, hypertension, hyperlipidemia, diabetes mellitus type 2, history of multiple strokes, coronary artery disease. Details or any information about these diagnoses are unknown as the patient is a poor historian and isn't able to expand on any specifics about his medical history. He came to the hospital because of altered mental status noticed by his home health nurse. When asked, the patient is unable to specify why he is at the hospital. He states he feels like ?crap. ? He is unable to explain any symptoms. Cardiology has been consulted because of elevated troponin levels and concern for nonsustained V-tach. Patient denies any chest pain, palpitations. He does endorse shortness of breath but cannot tell me when the shortness of breath began. He has been found to be positive for cocaine and marijuana. He is fidgety and has a sitter in the room but appears to be comfortable and in no acute distress. Review of Systems Review of Systems: ROS unobtainable: Yes unobtainable due to mental status PMFSH Past Medical History Medical History Prostate abscess Chronic anemia Chronic obstructive pulmonary disease Tobacco dependence Type 2 diabetes mellitus 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 January 2019: Left parietooccipital CVA presenting with confusion and aphasia. 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 Obstructive sleep apnea Refuses CPAP. Chronic kidney disease, stage 3 Baseline creatinine is around 1.4. Vitamin D deficiency Coronary artery disease Patient reports history of 2 MIs; no history of cardiac catheterization. 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 Surgical History Surgical History History of back surgery History of permanent cardiac pacemaker placement Due to sick sinus rhythm. History of transurethral resection of prostate History of hernia surgery Family History Family History Mother Cerebrovascular accident Acute myocardial infarction Hypertension Father Diabetes mellitus Cerebrovascular accident Hypertension Social History Social History Social History: Surrogate decision maker: Darling Rivers (sister). Code status: Full code. Smoking packs per day: 1 Smoking cigarettes per day: 20.0 Years smoked: 45 Smoking pack-years: 45.00 Smoking status: Current every day smoker Tobacco type: cigarettes Second hand tobacco smoke exposure: Yes Alcohol intake: current Drinks per week: 1 Substance use: current Substance use type: marijuana and crack/cocaine Other substance usage details: daily Last use: 02/22/2023 Do You Feel Safe in your Home?: Yes Lack of Transportation: YES Lack of Food: Never True Current Housing: I Have Housing Concerned About Future Housing: No Difficulty Paying Gas/Electric Bills: No Difficulty Paying for Meds: No Currently Unemployed: YES Education: Don't Know Difficulty w/ Childcare or Family Care: No Living arrangements: alone Additional living arrangements comments: The patient lives in his own apartment in [place]. Occupation/Education: unemployed Additional occupation/education comments: On disability. Spiritual care concerns: No Meds Home Medications and Allergies Home Medications ?Medication ?Instructions ?Recorded ?Confirmed ?Type amitriptyline 100 mg tablet 100 mg PO HS 03/12/20 10/17/24 History atorvastatin 80 mg tablet 80 mg PO HS 03/12/20 10/17/24 History clopidogrel 75 mg tablet 75 mg PO DAILY 03/12/20 10/17/24 History ergocalciferol (vitamin D2) 1,250 1,250 mcg PO WEEKLY 03/12/20 10/17/24 History mcg (50,000 unit) capsule folic acid 1 mg tablet 1 mg PO DAILY 03/12/20 10/17/24 History levetiracetam 250 mg tablet 250 mg PO TID 03/12/20 10/17/24 History aspirin 81 mg chewable tablet 81 mg PO DAILY 05/28/20 10/17/24 History blood-glucose meter,continuous 02/23/23 10/17/24 History ([employer] G[employer]) blood-glucose sensor (Dexcom G7 02/23/23 10/17/24 History Sensor device) empagliflozin 10 mg tablet 10 mg PO DAILY 02/23/23 10/17/24 History (Jardiance) famotidine 20 mg tablet 20 mg PO BID 02/23/23 10/17/24 History hydrocodone 10 mg-acetaminophen 1 tablet PO Q8H pain 02/23/23 10/17/24 History 325 mg tablet oxybutynin chloride 15 mg 15 mg PO DAILY 02/23/23 10/17/24 History tablet,extended release 24 hr tamsulosin 0.4 mg capsule 0.4 mg PO HS 02/23/23 10/17/24 History gabapentin 600 mg tablet 600 mg PO TID 09/16/24 10/17/24 History dulaglutide 3 mg/0.5 mL 3 mg subcut WEEKLY 10/17/24 10/17/24 History subcutaneous pen injector (Trulicity) duloxetine 30 mg capsule,delayed 30 mg PO DAILY 10/17/24 10/17/24 History release hydroxyurea 500 mg capsule 500 mg PO DAILY 10/17/24 10/17/24 History metoprolol succinate 25 mg 25 mg PO DAILY 10/17/24 10/17/24 History tablet,extended release 24 hr pen needle, diabetic 31 gauge x 10/17/24 10/17/24 History 12/16 (TRUEplus Pen Needle) sildenafil 100 mg tablet 100 mg PO Q24H PRN as needed 10/17/24 10/17/24 History Allergies Allergy/AdvReac Type Severity Reaction Status Date / Time Penicillins Allergy Unknown Other Verified 10/17/24 15:24 Vital Signs Vital Signs - 24 hr 10/17/24 09:00 10/17/24 09:00 10/17/24 09:01 Temperature 37.2 C 37.2 C Pulse Rate 110 H 114 H Respiratory Rate 16 131 H Blood Pressure 190/93 H 190/93 H Pulse Oximetry 100 100 100 Oxygen Delivery Room Air Room Air 10/17/24 09:02 10/17/24 09:16 10/17/24 09:30 Temperature Pulse Rate 113 H 113 H 113 H Respiratory Rate 15 24 H 21 H Blood Pressure Pulse Oximetry 100 99 100 Oxygen Delivery 10/17/24 09:46 10/17/24 10:52 10/17/24 10:52 Temperature 37.2 C Pulse Rate 115 H 118 H 114 H Respiratory Rate 16 28 H 166 H Blood Pressure 190/93 H 129/93 H 129/93 H Pulse Oximetry 99 Oxygen Delivery 10/17/24 11:15 10/17/24 11:30 10/17/24 12:14 Temperature Pulse Rate 119 H 113 H 112 H Respiratory Rate 17 14 20 Blood Pressure 129/93 H Pulse Oximetry 98 Oxygen Delivery 10/17/24 12:57 10/17/24 14:09 Temperature 37.0 C 37.6 C H Pulse Rate 112 H 98 Respiratory Rate 18 18 Blood Pressure 159/79 H 153/72 H Pulse Oximetry 100 98 Oxygen Delivery Exam Const: General: comfortable, no acute distress, alert and awake Orientation/consciousness: No patient oriented x3 Other: Oriented to person, place HENMT: Head: normal to inspection Eyes: General: appearance normal, both eyes and all related structures Pupils: Equal, round and reactive pupils present Neck: Neck: normal visual inspection, supple and no JVD Carotids: normal carotid upstroke Resp: Effort & Inspection: normal respiratory effort Auscultation: clear to auscultation bilaterally Cardio: Rate: regular rate Rhythm: regular rhythm Heart sounds: S1 normal heart sound present, S2 normal heart sound present and no murmurs GI: Auscultation: normal bowel sounds Skin: General skin exam: normal color Neuro: General: patient oriented x3 Cranial nerves: Yes Equal, round and reactive pupils present Extrem: General: normal to inspection Other: No edema Psych: Appearance: grossly normal Mental Status: mental status grossly abnormal Results Labs and Meds 10/17/24 09:36 10/17/24 09:36 Lab results: Cardiac Enzymes 10/17/24 Range/Units 09:36 AST 49 (17-59) U/L Troponin I 0.123 H* (0.000-0.034) ng/mL Coagulation 10/17/24 Range/Units 09:36 PT 13.9 (11.1-14.7) Seconds APTT 25.2 (22.3-36.8) Seconds CBC 10/17/24 Range/Units 09:36 WBC 18.3 H (4.5-10.0) K/mm3 RBC 4.40 L (4.6-6.20) M/mm3 Hgb 15.5 D (14.0-18.0) g/dL Hct 43.6 (42.0-52.0) % Plt Count 394 H D (150-375) k/mm3 Lymph # (Auto) 2.74 (0.9-3.2) K/mm3 [place] # (Auto) 1.5 H (0.1-0.6) K/mm3 Eos # (Auto) 0.0 (0-0.3) K/mm3 Baso # (Auto) 0.0 (0.0-0.1) K/mm3 Comprehensive Metabolic Panel 10/17/24 Range/Units 09:36 Sodium 132 L (137-145) mmol/L Potassium 4.8 (3.4-5.0) mmol/L Chloride 92 L (98-107) mmol/L Carbon Dioxide 24 (22-30) mmol/L BUN 42 H D (9-20) mg/dL Creatinine 1.91 H (0.7-1.3) mg/dL Glucose 379 H (65-110) mg/dL Calcium 12.2 H* (8.4-10.2) mg/dL AST 49 (17-59) U/L ALT 37 (6-50) U/L Alkaline Phosphatase 118 (38-126) U/L Total Protein 8.0 (6.3-8.2) g/dL Albumin 4.7 (3.5-5.1) g/dL Intake and Output 10/16/24 10/17/24 10/17/24 23:59 07:59 15:59 Intake Total 2049 Balance 2049 Intake: IV 2049 Sodium Chloride 0.9% IV 1,000 2000 ml @ 999 mls/hr IV CONT .Q1H1M STA Rx#:[id number] Cefepime 2 gm/Ns 50 ml 2 gm In 50 50 ml @ 100 mls/hr IVPB ONCE STA Rx#:[id number] Patient Weight 10/17/24 23:59 Weight 97.5 kg
[2024-10-17 16:02] LABS: Basophils Percent Auto 0.2 % (0.2-1.2); Eosinophils Percent Auto 0.1 % (0-4.4); Hematocrit 45.9 % (42.0-52.0); Hemoglobin 15.4 g/dL (14.0-18.0); Immature Granulocyte Absolute 0.08 K/mm3 (0.00-0.031); Immature Granulocyte Percent A 0.4 % (0-0.5); Lymphocytes Absolute Auto 3.56 K/mm3 (0.9-3.2); Mean Corpuscular HGB Conc 33.6 g/dl (32-36); Mean Corpuscular Hemoglobin 35.2 pg (26-34); Mean Corpuscular Volume 104.8 fl (80-100); Mean Platelet Volume 10.3 fl (7.4-10.4); Monocytes Absolute Auto 2.3 K/mm3 (0.1-0.6); Monocytes Percent Auto 11.6 % (2.6-8.5); Neutrophils Absolute Auto 13.8 K/mm3 (1.3-6.7); Neutrophils Percent Auto 69.7 % (45.5-73.1); Platelet Count Result 384 k/mm3 (150-375); Red Blood Count 4.38 M/mm3 (4.6-6.20); Red Cell Distribution Width 14.1 % (11.5-14.5); White Blood Count 19.8 K/mm3 (4.5-10.0)
[2024-10-17 16:20] LABS: Prothrombin Time 13.5 Seconds (11.1-14.7)
[2024-10-17 16:21] LABS: Partial Thromboplastin Time 25.7 Seconds (22.3-36.8)
[2024-10-17] MEDS: HEPARIN SOD/D5W 100 UNITS/ML 25,000 UNITS/250 ML BAG 10 UNITS IV CONT (16:24)
[2024-10-17] MEDS: SODIUM CHLORIDE 0.9% IV 1,000 ML 125 ML IV CONT (16:26)
[2024-10-17 16:32] LABS: Troponin I 0.131 ng/mL (0.000-0.034)
[2024-10-17 17:16] LABS: Glucose Point of Care 332 mg/dl (65-105)
--- NOTE | 2024-10-17 17:24 | PC.NURSE ---
Patient arrived from ER. PAtient confused. Telemetry applied. Admission completed
[2024-10-17] MEDS: FAMOTIDINE 20 MG TABLET PO (17:57)
[2024-10-17] MEDS: GABAPENTIN 300 MG CAPSULE 600 MG PO (17:57)
[2024-10-17] MEDS: levETIRAcetam 250 MG TABLET PO (17:57)
[2024-10-17] MEDS: INSULIN ASPART (*BKC) 100 UNITS/ML SUB-Q ×2 (17:58→23:06)
--- NOTE | 2024-10-17 18:35 | P.HP_ITS ---
H&P: HPI History of Present Illness Date/Time: 10/17/24 18:35 Chief Complaint: altered mental status Narrative: This is a 64-year-old male with a significant past medical history of type 2 diabetes mellitus, COPD, tobacco dependence, chronic lower back pain, obstructive sleep apnea, chronic kidney disease stage 3, coronary artery disease, hypertension, hyperlipidemia, diabetic peripheral neuropathy, CAD, sunitha min- deficiency, tobacco abuse, marijuana abuse, cocaine abuse who presented to the hospital via EMS for evaluation of altered mental status. Patient was found with altered mental status by his home health nurse and EMS was called.EMS reported that there were drug paraphernalia around his home. patient however denies any substance abuse other than marijuana. He denies any recent sick contacts, fever, chills, nausea, vomiting, diarrhea, abdominal pain, chest pain, shortness a breath. workup in the hospital included a head CT which was negative for any acute intracranial findings. A chest x-ray which showed left basilar atelectasis versus pneumonia with possible effusion, bilateral interstitial thickening suggestive of pneumonitis versus pulmonary edema. initial labs showed a white blood cell count of 18.3, INR 1.0, sodium 132, chloride 92, anion gap 16, creatinine 1.91, EGFR 36, blood glucose ranging 332- 379, lactic acid was normal at 1.8, calcium 12.2, magnesium 1.4, albumin was normal at 4.7, troponin 0.123> 0.131, TSH 0.870. UA was obtained which showed 4+ urine protein, 3+ urine glucose, 1+ urine ketone, 3+ urine blood, 3-5 urine RBC, greater than 20 urine cast, 3-4 hyaline cast, mucus present. MRSA was negative. Urine drug screen was positive for cocaine and cannabinoids. Respiratory panel was negative for influenza A and B, RSV, COVID. Blood cultures were obtained and pending. EKG showed sinus tachycardia with occasional supraventricular premature complexes, right bundle branch block with a rate of 109, QTC 434. Patient was given 2L of normal saline, Ativan, Benadryl, Reglan, cefepime, vancomycin while in the ED. Cardiology was consulted. Review of Systems Review of Systems: All systems reviewed & are unremarkable except as noted in HPI and below PMFSH Past Medical History Medical History Prostate abscess Chronic anemia Chronic obstructive pulmonary disease Tobacco dependence Type 2 diabetes mellitus Cerebrovascular accident 2015: Right frontoparietal CVA with left hemiparesis. January 2019: Left parietooccipital CVA presenting with confusion and aphasia. Hard of hearing Chronic lower back pain Blood dyscrasia Blood dyscrasia versus malignancy; followed by a invasive cardiovascular technologist in [place]. Obstructive sleep apnea Refuses CPAP. Chronic kidney disease, stage 3 Baseline creatinine is around 1.4. Vitamin D deficiency Coronary artery disease Patient reports history of 2 MIs; no history of cardiac catheterization. 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 Surgical History Surgical History History of back surgery History of permanent cardiac pacemaker placement Due to sick sinus rhythm. History of transurethral resection of prostate History of hernia surgery Family History Family History Mother Cerebrovascular accident Acute myocardial infarction Hypertension Father Diabetes mellitus Cerebrovascular accident Hypertension Social History Social History Social History: Surrogate decision maker: Darling Rivers (sister). Code status: Full code. Smoking packs per day: 1 Smoking cigarettes per day: 20.0 Years smoked: 45 Smoking pack-years: 45.00 Smoking status: Current every day smoker Tobacco type: cigarettes Second hand tobacco smoke exposure: Yes Alcohol intake: current Drinks per week: 1 Substance use: current Substance use type: marijuana and crack/cocaine Other substance usage details: daily Last use: 02/22/2023 Do You Feel Safe in your Home?: Yes Lack of Transportation: YES Lack of Food: Never True Current Housing: I Have Housing Concerned About Future Housing: No Difficulty Paying Gas/Electric Bills: No Difficulty Paying for Meds: No Currently Unemployed: YES Education: Don't Know Difficulty w/ Childcare or Family Care: No Living arrangements: alone Additional living arrangements comments: The patient lives in his own apartment in [place]. Occupation/Education: unemployed Additional occupation/education comments: On disability. Spiritual care concerns: No Meds Home Medications and Allergies Home Medications ?Medication ?Instructions ?Recorded ?Confirmed ?Type amitriptyline 100 mg tablet 100 mg PO HS 03/12/20 10/17/24 History atorvastatin 80 mg tablet 80 mg PO HS 03/12/20 10/17/24 History clopidogrel 75 mg tablet 75 mg PO DAILY 03/12/20 10/17/24 History ergocalciferol (vitamin D2) 1,250 1,250 mcg PO WEEKLY 03/12/20 10/17/24 History mcg (50,000 unit) capsule folic acid 1 mg tablet 1 mg PO DAILY 03/12/20 10/17/24 History levetiracetam 250 mg tablet 250 mg PO TID 03/12/20 10/17/24 History aspirin 81 mg chewable tablet 81 mg PO DAILY 05/28/20 10/17/24 History blood-glucose meter,continuous 02/23/23 10/17/24 History (Dexcom G7 Surgery Manager) blood-glucose sensor (Dexcom G7 02/23/23 10/17/24 History Sensor device) empagliflozin 10 mg tablet 10 mg PO DAILY 02/23/23 10/17/24 History (Jardiance) famotidine 20 mg tablet 20 mg PO BID 02/23/23 10/17/24 History hydrocodone 10 mg-acetaminophen 1 tablet PO Q8H pain 02/23/23 10/17/24 History 325 mg tablet oxybutynin chloride 15 mg 15 mg PO DAILY 02/23/23 10/17/24 History tablet,extended release 24 hr tamsulosin 0.4 mg capsule 0.4 mg PO HS 02/23/23 10/17/24 History gabapentin 600 mg tablet 600 mg PO TID 09/16/24 10/17/24 History dulaglutide 3 mg/0.5 mL 3 mg subcut WEEKLY 10/17/24 10/17/24 History subcutaneous pen injector (Trulicity) duloxetine 30 mg capsule,delayed 30 mg PO DAILY 10/17/24 10/17/24 History release hydroxyurea 500 mg capsule 500 mg PO DAILY 10/17/24 10/17/24 History metoprolol succinate 25 mg 25 mg PO DAILY 10/17/24 10/17/24 History tablet,extended release 24 hr pen needle, diabetic 31 gauge x 10/17/24 10/17/24 History 12/16 (TRUEplus Pen Needle) sildenafil 100 mg tablet 100 mg PO Q24H PRN as needed 10/17/24 10/17/24 History Allergies Allergy/AdvReac Type Severity Reaction Status Date / Time Penicillins Allergy Unknown Other Verified 10/17/24 15:24 Vital Signs Vital Signs - 24 hr 10/17/24 09:00 10/17/24 09:00 10/17/24 09:01 Temperature 98.9 F 98.9 F Pulse Rate 110 H 114 H Respiratory Rate 16 131 H Blood Pressure 190/93 H 190/93 H Pulse Oximetry 100 100 100 Oxygen Delivery Room Air Room Air 10/17/24 09:02 10/17/24 09:16 10/17/24 09:30 Temperature Pulse Rate 113 H 113 H 113 H Respiratory Rate 15 24 H 21 H Blood Pressure Pulse Oximetry 100 99 100 Oxygen Delivery 10/17/24 09:46 10/17/24 10:52 10/17/24 10:52 Temperature 98.9 F Pulse Rate 115 H 118 H 114 H Respiratory Rate 16 28 H 166 H Blood Pressure 190/93 H 129/93 H 129/93 H Pulse Oximetry 99 Oxygen Delivery 10/17/24 11:15 10/17/24 11:30 10/17/24 12:14 Temperature Pulse Rate 119 H 113 H 112 H Respiratory Rate 17 14 20 Blood Pressure 129/93 H Pulse Oximetry 98 Oxygen Delivery 10/17/24 12:57 10/17/24 14:00 10/17/24 14:09 Temperature 98.6 F 99.7 F H Pulse Rate 112 H 112 H 98 Respiratory Rate 18 18 Blood Pressure 159/79 H 153/72 H Pulse Oximetry 100 98 Oxygen Delivery 10/17/24 16:00 10/17/24 16:19 10/17/24 17:47 Temperature 99.1 F Pulse Rate 110 H 113 H 123 H Respiratory Rate 14 Blood Pressure 163/86 H Pulse Oximetry 100 Oxygen Delivery Exam Narrative: General: In no acute distress, well nourished Head: atraumatic, no encephalopathy Eyes:PERRLA, sclera clear ENT: moist mucous membranes, nasal passages clear Neck: supple, no JVD, no adenopathy, trachea midline Cardiac: Normal S1 and S2. No murmur, gallops or friction rubs, peripheral pulses intact. Respiratory: Lungs clear to auscultation, no adventitious lung sounds Currently on room air Gastrointestinal: soft, non-distended, non-tender, normoactive bowel sounds. : voiding without difficulty. Extremities: moves all extremities well, no edema Skin: excoriation/ yeast noted in bilateral gluteal folds Neuro: Alert and oriented x2-3, cranial nerves intact, no neuro deficits. Psych: normal mood, normal affect, interactive H&P: Results Labs Labs: Short CBC 10/17/24 10/17/24 Range/Units 09:36 15:53 WBC 18.3 H 19.8 H (4.5-10.0) K/mm3 Hgb 15.5 D 15.4 (14.0-18.0) g/dL Hct 43.6 45.9 (42.0-52.0) % Plt Count 394 H D 384 H (150-375) k/mm3 BMP 10/17/24 09:36 Sodium 132 L Potassium 4.8 Chloride 92 L Carbon Dioxide 24 BUN 42 H D Creatinine 1.91 H Glucose 379 H Calcium 12.2 H* Cardiac Enzymes 10/17/24 10/17/24 10/17/24 Range/Units 09:36 15:53 15:54 Troponin I 0.123 H* 0.131 H* Cancelled (0.000-0.034) ng/mL Liver Function 10/17/24 Range/Units 09:36 Total Bilirubin 0.9 (0.2-1.3) mg/dL AST 49 (17-59) U/L ALT 37 (6-50) U/L Alkaline Phosphatase 118 (38-126) U/L Albumin 4.7 (3.5-5.1) g/dL Urine 10/17/24 Range/Units 09:36 Urine Color Yellow (Yellow) Urine Appearance Clear (Clear) Urine pH 5.5 (5.0-9.0) Ur Specific [place] 1.035 (1.001-1.035) Urine Protein 4+ H (Negative) mg/dL Urine Glucose (UA) 3+ H (Negative) mg/dL Imaging CT scan - head: Radiologist's impression: CT brain wo con Ordering provider: Arabella Underwood APRN History: 64 years Male with . altered mental status . Comparison: None. Technique: CT of the head without contrast. Radiation reduction technique utilized. The dose-length product was 681 mGy-cm. FINDINGS: BRAIN PARENCHYMA AND CSF SPACES: Mild leukoaraiosis and diffuse cortical atrophy. Mild atheromatous disease. Old infarcts are seen in both occipital lobes with encephalomalacia. No midline shift, mass effect or hemorrhage. The brain parenchyma and CSF spaces are otherwise normal. VISUALIZED PARANASAL SINUSES: Left maxillary sinus disease otherwise, Well aerated. MASTOIDS: Left mastoid air cells effusion. BONES: The bones appear intact. SOFT TISSUES: Visualized nasopharynx is normal. Superficial soft tissues are normal. IMPRESSION: No acute intracranial findings. Reviewed, dictated and finalized at location A. Chest x-ray: Radiologist's impression: XR chest 2V Ordering provider: Arabella Underwood APRN History: 64 years Male with . shortness of breath, PT COMBATIVE, BEST VIEWS POSSIBLE . Comparison: September 16, 2024 FINDINGS: MEDIASTINUM: The cardiac silhouette is moderately enlarged. Left bipolar pacemaker. Congestive moo. LUNGS: No pneumothorax. Opacification the left lung with minimal effusion. Bilateral interstitial thickening. OTHER: No free air under the diaphragm. Degenerative changes of the spine. IMPRESSION: Left basilar atelectasis versus pneumonia with possible effusion. Bilateral interstitial thickening suggestive of pneumonitis versus pulmonary edema. Reviewed, dictated and finalized at location A. Assessment and Plan Assessment and plan (1) SIRS (systemic inflammatory response syndrome): Code(s): R65.10 - Systemic inflammatory response syndrome (SIRS) of non-infectious origin without acute organ dysfunction Status: Acute Assessment and Plan: * initially meeting SIRS criteria with elevated heart rate of 110, and white blood cell count 18.3 * chest x-ray was negative * head CT was negative * blood cultures obtained and pending * order placed for an echocardiogram * continue cefepime * vancomycin discontinued after negative MRSA swab (2) Elevated troponin: Code(s): R79.89 - Other specified abnormal findings of blood chemistry Status: Acute Assessment and Plan: * troponin 0.123> 0.131 * continue heparin infusion for ACS protocol * cardiology consulted for potential NSTEMI versus cocaine induced elevated troponin * urine drug screen positive for cocaine and cannabinoids * continue cardiac monitoring * obtain echocardiogram * admit to IMU (3) Type 2 diabetes mellitus: Qualifiers: Diabetes mellitus complication status: without complication Diabetes mellitus alf insulin use: with alf use Qualified Code(s): E11.9 - Type 2 diabetes mellitus without complications; Z79.4 - detention (current) use of insulin Code(s): E11.9 - Type 2 diabetes mellitus without complications Status: Acute Assessment and Plan: * Blood sugars ranging 92-124 * Hgb A1C 7.6 on 09/17/2024 * Accu checks AC/HS * high-dose SSI ordered * hypoglycemic protocol in place * Diabetic diet ordered (4) CONNIE (acute kidney injury): Code(s): N17.9 - Acute kidney failure, unspecified Status: Acute Assessment and Plan: * creatinine 1.91, EGFR 36 * baseline creatinine 1.2-1.36, EGFR 53-60 * continue to trend * patient was given 1 L of normal saline while in the ED (5) Hypercalcemia: Code(s): E83.52 - Hypercalcemia Status: Acute Assessment and Plan: * initial calcium 12.2 with a normal albumin level * will check PTH and thyroid levels * start in alendronate 10 mg daily * continue to trend (6) Altered mental status: Code(s): R41.82 - Altered mental status, unspecified Status: Acute Assessment and Plan: likely secondary to cocaine abuse * continue neuro checks * urine drug screen positive for cannabinoids and cocaine (7) Essential hypertension: Code(s): I10 - Essential (primary) hypertension Status: Chronic Assessment and Plan: * blood pressure ranging 129/93 to 163/86 * continue metoprolol XL 25 mg daily * Hydralazine ordered for systolic greater than 160 (8) Substance abuse: Code(s): F19.10 - Other psychoactive substance abuse, uncomplicated Status: Acute Assessment and Plan: * urine drug screen positive for cannabinoids and cocaine (9) Hyperlipidemia: Code(s): E78.5 - Hyperlipidemia, unspecified Status: Acute Assessment and Plan: * continue atorvastatin and Plavix Quality VTE Prophylaxis VTE prophylaxis: pharmacologic ordered Hospitalist MIPS Advance Care Plan I have confirmed that the patient's Advanced Care Plan is present, code status is documented, or surrogate decision maker is listed in patient medical record.: Yes Medication Reconciliation I have utilized all available resources to obtain, update and review the patients current medications (includes all prescriptions, OTC, herbals, cannabis, and nutritional supplements).: Yes
[2024-10-17 20:09] LABS: Thyroid Stimulating Hormone 0.803 uIU/mL (0.465-4.680)
[2024-10-17 21:05] LABS: Glucose Point of Care 218 mg/dl (65-105)
[2024-10-17 21:37] LABS: Partial Thromboplastin Time 30.4 Seconds (22.3-36.8)
[2024-10-17] MEDS: HEPARIN SODIUM 5,000 UNITS/ML VIAL 4000 UNITS IV PUSH (22:10)
[2024-10-17] MEDS: AMITRIPTYLINE HCL 25 MG TABLET 100 MG PO (22:12)
[2024-10-17] MEDS: TAMSULOSIN HCL 0.4 MG CAPSULE PO (22:12)
[2024-10-17] MEDS: ATORVASTATIN 40 MG TABLET 80 MG PO (22:12)
[2024-10-17 22:46] LABS: Glucose Point of Care 232 mg/dl (65-105)
[2024-10-18] VITALS (19 sets, daily range): BP systolic 129–159; BP diastolic 65–95; PULSE 91–116; RESP 15–20; TEMP 36.7–37.5; O2SAT 94–100
--- NOTE | 2024-10-18 | ECHO_ITS ---
Patient Info Name: Basiloi Riley Age: 64 years : 1960 Gender: Male Ht: 68 in Wt: 214 lbs BSA: 2.19 m2 HR: 115 bpm BP: 147 / 65 mmHg Heart Rhythm: Sinus Rhythm Technical Quality: Fair Exam Date: 10/18/2024 2:32 PM Exam Location: Echo Lab Patient Status: Inpatient Admit Date: 10/18/2024 Staff Ordering Physician: Maria Isabel Hernandez APRN Civil Preparedness Officer: Qing Child RDCS Attending Provider: Maria G Fall MD Referring Physician: David WOLFF; Exam Type: CA echo doppler color flow Study Info Indications - NSTEMI Complete two-dimensional, color flow and Doppler transthoracic echocardiogram is performed with contrast to opacify the left ventricle and to improve the deliniation of the left ventricle endocardial borders. Contrast/Agitated Saline Contrast/Ag. Saline: Definity Amount: 2.00 ml Administered By: Qing Child RDCS Existing IV Access: Yes IV Access Condition: patent with no signs of infiltration Summary 1. Definity contrast used to improve visualization, technically challenging exam. 2. Concentric left ventricular hypertrophy with normal systolic function and grade 1 diastolic noncompliance. 3. Mildly sclerotic aortic valve with good leaflet excursion. 4. Pacemaker lead noted. Left Ventricle Left ventricular chamber dimension is normal. Left ventricular systolic function is normal, estimated at 60-65%. There is moderate concentric increased left ventricular wall thickness. The left ventricular diastolic function is grade I diastolic dysfunction. Right Ventricle Right ventricular chamber dimension is normal. Left Atria Left atrial chamber dimension is mildly enlarged. Right Atria Right atrial chamber dimension is normal. Linear artifact in the right atrium suggestive of catheter(s), pacemaker lead(s), or ICD lead(s). Aortic Valve The aortic valve is trileaflet. There is mild aortic valve sclerosis. Pulmonic Valve The pulmonic valve is not well visualized. Mitral Valve The mitral valve has normal leaflets. The mitral valve annulus is mildly calcified. Tricuspid Valve The tricuspid valve leaflets are normal. Pericardium/Pleural The pericardium appears normal. Aorta The aortic root size at the sinus of Valsalva is normal. Left Ventricular Outflow Tract Name Value Normal LVOT Doppler LVOT Peak Gradient 4 mmHg LVOT Mean Gradient 2 mmHg LVOT VTI 14 cm LVOT VTI/AV VTI Ratio 0.6 Pulmonic Valve Name Value Normal RVOT Doppler RVOT Peak Gradient 2 mmHg PV Doppler PV Peak Gradient 3 mmHg Mitral Valve Name Value Normal MV Doppler MV Decel [place] 388 cm/s2 MV PHT 38 ms MV Area (PHT) 5.8 cm2 4.0-5.0 MV Diastolic Function MV E Peak Velocity 51 cm/s MV A Peak Velocity 95 cm/s MV E/A 0.5 MV Decel Time 131 ms MV Annular TDI MV E/e' (Septal) 7.3 <=8.0 MV E/e' (Lateral) 6.1 <=8.0 MV E/e' (Average) 6.7 Tricuspid Valve Name Value Normal TV Regurgitation Doppler TR Peak Velocity 180 cm/s TR Peak Gradient 13 mmHg Estimated PAP/RSVP RA Pressure 10 mmHg <=5 PA Systolic Pressure 23 mmHg <36 RV Systolic Pressure 23 mmHg <36 Aortic Valve Name Value Normal AV Doppler AV Peak Velocity 136 cm/s AV Peak Gradient 7 mmHg AV Mean Gradient 4 mmHg AV VTI 24 cm Ventricles Name Value Normal LV Dimensions 2D/MM IVS Diastolic Thickness (2D) 1.2 cm 0.6-1.0 LVID Diastole (2D) 5.5 cm 4.2-5.8 LVIW Diastolic Thickness (2D) 1.2 cm 0.6-1.0 LVID Systole (2D) 3.9 cm 2.5-4.0 LV Mass (2D Cubed) 273.78 g 88.00-224.00 LV Mass Index (2D Cubed) 125 g/m2 49-115 Relative Wall Thickness (2D) 0.45 LV Fractional Shortening/Ejection Fraction 2D/MM LV Fractional Shortening (2D) 29 % 25-43 LV EF (2D Teicholz) 55 % 52-72 LV Diastolic Volume (4C MOD) 82 ml LV EF (4C MOD) 54 % LV Diastolic Volume (2C MOD) 64 ml LV EF (2C MOD) 52 % LV Diastolic Volume (BP MOD) 76 ml 62-150 LV Diastolic Volume Index (BP MOD) 35 ml/m2 34-74 LV Systolic Volume (BP MOD) 36 ml 21-61 LV Systolic Volume Index (BP MOD) 17 ml/m2 11-31 LV EF (BP MOD) 52 % 52-72 LV Diastolic Length (4C) 8.8 cm LV Systolic Length (4C) 7.7 cm LV Stroke Volume (4C MOD) 44 ml Atria Name Value Normal LA Dimensions LA Volume (4C A-L) 49 ml LA Volume (BP A-L) 52 ml RA Dimensions RA Area (4C) 17.3 cm2 <=18.0 Report Signatures
[2024-10-18] MEDS: SODIUM CHLORIDE 0.9% IV 1,000 ML 125 ML IV CONT ×2 (01:00→09:12)
[2024-10-18 05:14] LABS: Basophils Absolute Auto 0.1 K/mm3 (0.0-0.1); Basophils Percent Auto 0.2 % (0.2-1.2); Eosinophils Absolute Auto 0.1 K/mm3 (0-0.3); Eosinophils Percent Auto 0.6 % (0-4.4); Hematocrit 42.9 % (42.0-52.0); Hemoglobin 14.3 g/dL (14.0-18.0); Immature Granulocyte Percent A 0.5 % (0-0.5); Lymphocytes Absolute Auto 3.85 K/mm3 (0.9-3.2); Lymphocytes Percent Auto 19.1 % (18.3-44.2); Mean Corpuscular HGB Conc 33.3 g/dl (32-36); Mean Corpuscular Hemoglobin 35.1 pg (26-34); Mean Corpuscular Volume 105.4 fl (80-100); Mean Platelet Volume 10.6 fl (7.4-10.4); Monocytes Absolute Auto 2.2 K/mm3 (0.1-0.6); Monocytes Percent Auto 11.1 % (2.6-8.5); Neutrophils Absolute Auto 13.8 K/mm3 (1.3-6.7); Neutrophils Percent Auto 68.5 % (45.5-73.1); Platelet Count Result 306 k/mm3 (150-375); Red Blood Count 4.07 M/mm3 (4.6-6.20); Red Cell Distribution Width 13.8 % (11.5-14.5); White Blood Count 20.2 K/mm3 (4.5-10.0)
[2024-10-18] MEDS: ALENDRONATE SODIUM 10 MG TABLET PO (05:35)
[2024-10-18 06:00] LABS: Partial Thromboplastin Time 47.7 Seconds (22.3-36.8)
[2024-10-18] MEDS: HEPARIN SODIUM 5,000 UNITS/ML VIAL 4000 UNITS IV PUSH (06:13)
[2024-10-18 06:53] LABS: Alanine Aminotransferase 33 U/L (6-50); Albumin Level 3.7 g/dL (3.5-5.1); Alkaline Phosphatase 101 U/L (38-126); Anion Gap 8 mmol/L (4-12); Aspartate Amino Transferase 38 U/L (17-59); Bilirubin,Total 0.8 mg/dL (0.2-1.3); Blood Urea Nitrogen 32 mg/dL (9-20); Calcium 10.2 mg/dL (8.4-10.2); Carbon Dioxide 25 mmol/L (22-30); Chloride 103 mmol/L (98-107); Estimated CRCL calculation 54 ml/min; Estimated Glomerular Filt Rate 50; Glucose 236 mg/dL (65-110); Magnesium 1.6 mg/dL (1.6-2.3); Sodium 136 mmol/L (137-145)
[2024-10-18 07:57] LABS: Glucose Point of Care 216 mg/dl (65-105)
[2024-10-18] MEDS: levETIRAcetam 250 MG TABLET PO ×3 (09:13→17:09)
[2024-10-18] MEDS: CLOPIDOGREL BISULFATE 75 MG TABLET PO (09:13)
[2024-10-18] MEDS: FOLIC ACID 1 MG TABLET PO (09:13)
[2024-10-18] MEDS: GABAPENTIN 300 MG CAPSULE 600 MG PO ×3 (09:13→17:08)
[2024-10-18] MEDS: HYDROXYUREA (*CHEMO) 500 MG CAPSULE PO (09:13)
[2024-10-18] MEDS: METOPROLOL SUCCINATE EXT REL 25 MG TABCR PO (09:13)
[2024-10-18] MEDS: FAMOTIDINE 20 MG TABLET PO ×2 (09:13→17:09)
[2024-10-18] MEDS: oxyBUTYnin CHLORIDE XL 5 MG TAB.ER.24 15 MG PO (09:13)
[2024-10-18] MEDS: DULoxetine HCL 30 MG CAPSULE.DR PO (09:13)
[2024-10-18] MEDS: INSULIN ASPART (*BKC) 100 UNITS/ML SUB-Q ×3 (09:13→20:50)
[2024-10-18] MEDS: CEFEPIME 2 GM/NS 50 ML 2 GM/50 ML BAG IVPB ×2 (09:14→20:47)
[2024-10-18 10:02] LABS: Iron 54 ug/dL (49-181)
[2024-10-18] MEDS: HEPARIN SOD/D5W 100 UNITS/ML 25,000 UNITS/250 ML BAG 16 UNITS IV CONT (10:03)
[2024-10-18 10:14] LABS: Percent Iron Saturation 19 % (20-50)
[2024-10-18 11:05] LABS: Folic Acid > 20.0 ng/mL (2.76->20)
[2024-10-18 11:32] LABS: Glucose Point of Care 301 mg/dl (65-105)
[2024-10-18 12:50] LABS: Partial Thromboplastin Time 64.7 Seconds (22.3-36.8)
[2024-10-18] MEDS: HEPARIN SODIUM 5,000 UNITS/ML VIAL 3000 UNITS IV PUSH (12:53)
--- NOTE | 2024-10-18 12:55 | PC.NURSE ---
RN to bedside to titrate heparin drip. Pt appears to be in distress. RN questions pt if is having any pain. Yes, right here. Pt points to medial right side of chest. RN to nurses station to call Cardiology and update them on pt's condition. Cardiology is at nurses station at this time. Orders received and entered by this RN
--- NOTE | 2024-10-18 12:59 | ECG_ITS ---
Test Date: 2024-10-18 13:03:15 Measurements Intervals [place] Rate: 103 P: -45 [place]: 126 QRS: -76 QRSD: 170 T: 0 QT: 413 QTc: 541 Interpretive Statements ECTOPIC ATRIAL TACHYCARDIA RIGHT BUNDLE BRANCH BLOCK [120+ ms QRS DURATION, UPRIGHT V1, 40+ ms S IN I/aVL/V4/V5/V6] LEFT VENTRICULAR HYPERTROPHY AND ST-T CHANGE [VOLTAGE CRITERIA PLUS ST/T ABNORMALITY] ANTERIOR MYOCARDIAL INFARCTION [40+ ms Q WAVE AND/OR ST/T ABNORMALITY IN V3/V4], PROBABLY RECENT INFERIOR MYOCARDIAL INFARCTION [40+ ms Q WAVE AND/OR ST/T ABNORMALITY IN II/aVF], AGE INDETERMINATE ABNORMAL ECG NO SIGNIFICANT CHANGE FROM PREVIOUS ECG Electronically Signed On 10-19-2024 12:08:28 CDT by Uzair Orosco M.D.
[2024-10-18] MEDS: NITROGLYCERIN SL 0.4 MG TABLET SUBLINGUAL ×2 (13:08→13:13)
[2024-10-18] MEDS: MAGNESIUM SULF 2 GM/WATER 50ML 2 GM/50 ML BAG IVPB (13:15)
--- NOTE | 2024-10-18 13:22 | PM.PNCARD ---
Progress Note: A&P Assessment and Plan (1) Elevated troponin: Code(s): R79.89 - Other specified abnormal findings of blood chemistry Status: Acute Assessment and Plan: His troponin is elevated at 0.123, 0.131. For an unclear reason his third troponin was cancelled. Will check one now. He has atypical chest pain that occurred after eating lunch. Vital signs are stable. Repeat EKG performed now shows ectopic atrial tachycardia with RBBB which appears unchanged from previous tracings. Will give SL nitro now and p.r.n. Echocardiogram is pending. Will await results of echocardiogram and provide further recommendations based on findings. If repeat troponin has trended up, will plan for noninvasive ischemic evaluation tomorrow. (2) Essential hypertension: Code(s): I10 - Essential (primary) hypertension Status: Chronic Assessment and Plan: At goal. (3) UTI (urinary tract infection): Code(s): N39.0 - Urinary tract infection, site not specified Status: Acute Assessment and Plan: Antibiotics per hospitalist. (4) Pacemaker: Code(s): Z95.0 - Presence of cardiac pacemaker Status: Acute Assessment and Plan: Pt. states pacemaker implanted at [facility]. Will request records, but he currently is not paced. Subjective Date/time seen: 10/18/24 13:22 Interval history: Cardiology follow up visit Patient asleep upon my entering the room but awakens to voice. He states he is feeling ok today. He reports having an onset of right sided chest pain that he states he can also feel in his teeth. Denies shortness of breath, palpitations. Review of Systems Review of Systems: All systems reviewed & are unremarkable except as noted in HPI and below Exam Const: General: comfortable and no acute distress Orientation/consciousness: patient oriented x3 HENMT: Head: normal to inspection Eyes: General: appearance normal, both eyes and all related structures Pupils: Equal, round and reactive pupils present Neck: Neck: normal visual inspection, supple and no JVD Carotids: normal carotid upstroke Resp: Effort & Inspection: normal respiratory effort Auscultation: clear to auscultation bilaterally Cardio: Rate: regular rate Rhythm: regular rhythm Heart sounds: S1 normal heart sound present, S2 normal heart sound present and no murmurs GI: Auscultation: normal bowel sounds Skin: General skin exam: normal color Neuro: General: patient oriented x3 Cranial nerves: Yes Equal, round and reactive pupils present Extrem: General: normal to inspection Other: No edema Psych: Appearance: grossly normal Mental Status: mental status grossly normal Objective Data Vital Signs Vital Signs: Vital Signs - 24 hr 10/17/24 14:00 10/17/24 14:09 10/17/24 16:00 Temperature 37.6 C H Pulse Rate 112 H 98 110 H Respiratory Rate 18 Blood Pressure 153/72 H Pulse Oximetry 98 Oxygen Delivery 10/17/24 16:19 10/17/24 17:47 10/17/24 20:00 Temperature 37.3 C 36.9 C Pulse Rate 113 H 123 H 114 H Respiratory Rate 14 15 Blood Pressure 163/86 H 178/76 H Pulse Oximetry 100 100 Oxygen Delivery 10/17/24 20:00 10/17/24 20:00 10/17/24 22:00 Temperature Pulse Rate 99 104 H Respiratory Rate Blood Pressure Pulse Oximetry Oxygen Delivery Room Air 10/17/24 23:16 10/18/24 00:00 10/18/24 00:00 Temperature 36.8 C Pulse Rate 110 H 115 H Respiratory Rate 15 Blood Pressure 139/84 Pulse Oximetry 100 Oxygen Delivery Room Air 10/18/24 02:00 10/18/24 04:00 10/18/24 04:00 Temperature 36.9 C Pulse Rate 116 H 112 H Respiratory Rate 15 Blood Pressure 147/65 H Pulse Oximetry 100 Oxygen Delivery Room Air 10/18/24 04:00 10/18/24 06:00 10/18/24 07:36 Temperature 37.2 C Pulse Rate 108 H 115 H 110 H Respiratory Rate 16 Blood Pressure 159/95 H Pulse Oximetry 100 Oxygen Delivery 10/18/24 08:00 10/18/24 09:13 10/18/24 11:35 Temperature 37.5 C Pulse Rate 111 H 111 H 95 Respiratory Rate 16 20 Blood Pressure 139/75 Pulse Oximetry 100 100 Oxygen Delivery Room Air 10/18/24 12:00 10/18/24 13:08 10/18/24 13:13 Temperature Pulse Rate 95 Respiratory Rate 20 Blood Pressure 155/65 H 129/65 Pulse Oximetry 100 Oxygen Delivery Room Air Intake/Output Intake/Output: Intake & Output 10/15/24 10/16/24 10/17/24 10/18/24 23:59 23:59 23:59 23:59 Intake Total 2159 3099.8 Output Total 500 900 Balance 1659 2199.8 Meds/Results Medications: Active Medications Generic Name Dose Route Start Last Admin Trade Name Freq PRN Reason Stop Dose Admin Acetaminophen 650 mg 10/17/24 16:42 Acetaminophen 325 Mg Tablet PO Q4H PRN Mild Pain (1-3) or Fever Alendronate Sodium 10 mg 10/18/24 06:30 10/18/24 05:35 Alendronate Sodium 10 Mg Tablet PO 10 mg DAILY@0630 ANDRES Administration Amitriptyline HCl 100 mg 10/17/24 21:00 10/17/24 22:12 Amitriptyline Hcl 25 Mg Tablet PO 100 mg HS ANDRES Administration Atorvastatin Calcium 80 mg 10/17/24 21:00 10/17/24 22:12 Atorvastatin 40 Mg Tablet PO 80 mg HS ANDRES Administration Clopidogrel Bisulfate 75 mg 10/18/24 09:00 10/18/24 09:13 Clopidogrel Bisulfate 75 Mg Tablet PO 75 mg DAILY ANDRES Administration Dextrose 12.5 gm 10/17/24 16:45 Dextrose 50% 25 Gm/50 Ml Syringe IV PUSH PRN PRN Hypoglycemia Protocol Duloxetine HCl 30 mg 10/18/24 09:00 10/18/24 09:13 Duloxetine Hcl 30 Mg Capsule.Dr PO 30 mg DAILY ANDRES Administration Ergocalciferol 50,000 units 10/27/24 09:00 Ergocalciferol 50,000 Units Capsule PO Th@0900 [facility] Famotidine 20 mg 10/17/24 17:00 10/18/24 09:13 Famotidine 20 Mg Tablet PO 20 mg BID ANDRES Administration Folic Acid 1 mg 10/18/24 09:00 10/18/24 09:13 Folic Acid 1 Mg Tablet PO 1 mg DAILY ANDRES Administration Gabapentin 600 mg 10/17/24 17:00 10/18/24 12:26 Gabapentin 300 Mg Capsule PO 600 mg TID ANDRES Administration Glucagon 1 mg 10/17/24 16:45 Glucagon For Inj 1 Mg Vial IM PRN PRN Hypoglycemia Protocol Glucose 15 gm 10/17/24 16:45 Glucose Oral Gel 15 Gm Of Glucse In 37.5 Gm Tube PO PRN PRN Hypoglycemia Protocol Heparin Sodium (Porcine) 4,000 units 10/17/24 15:23 10/18/24 06:13 Heparin Sodium 5,000 Units/Ml Vial IV PUSH 4,000 units PRN PRN Administration aPTT less than 55 seconds Heparin Sodium (Porcine) 3,000 units 10/17/24 15:23 10/18/24 12:53 Heparin Sodium 5,000 Units/Ml Vial IV PUSH 3,000 units PRN PRN Administration aPTT 55 - 70 seconds Hydralazine HCl 10 mg 10/18/24 01:28 Hydralazine Hcl 20 Mg/Ml Vial IV PUSH Q8H PRN Blood Pressure - High Hydroxyurea 500 mg 10/18/24 09:00 10/18/24 09:13 Hydroxyurea (*Chemo) 500 Mg Capsule PO 500 mg DAILY ANDRES Administration Sodium Chloride 1,000 mls @ 125 mls/hr 10/17/24 11:45 10/18/24 09:12 Normal Saline Iv IV CONT 125 mls/hr .Q8H ANDRES Administration Cefepime HCl 2 gm in 50 mls @ 100 mls/hr 10/17/24 22:00 10/18/24 10:03 Maxipime 2 Gm/Ns 50 Ml IVPB Infused Q12HR ANDRES Infusion Heparin Sodium/Dextrose 25,000 units in 250 mls @ 18 mls/hr 10/17/24 15:25 10/18/24 12:54 Heparin Sodium/D5w 100 Units/Ml IV CONT 1,800 units/hr .[id number] ANDRES 18 mls/hr Titration Protocol 1,800 UNITS/HR Dextrose 1,000 mls @ 100 mls/hr 10/17/24 16:45 Dextrose 5% 1,000 Ml IVPB PRN PRN Hypoglycemia Protocol Magnesium Sulfate 2 gm in 50 mls @ 25 mls/hr 10/18/24 13:00 10/18/24 13:15 Magnesium Sulf 2 Gm/Water 50ml IVPB 10/18/24 14:59 25 mls/hr ONCE ONE Administration Insulin Aspart 4 - 8 units 10/17/24 17:00 10/18/24 12:26 Insulin Aspart (*Bkc) 100 Units/Ml SUB-Q 6 units TIDWM ANDRES Administration Protocol Insulin Aspart 2 - 4 units 10/17/24 21:00 10/17/24 23:06 Insulin Aspart (*Bkc) 100 Units/Ml SUB-Q 2 units HS ANDRES Administration Protocol Levetiracetam 250 mg 10/17/24 17:00 10/18/24 12:26 Levetiracetam 250 Mg Tablet PO 250 mg TID ANDRES Administration Metoprolol Succinate 25 mg 10/18/24 09:00 10/18/24 09:13 Metoprolol Succinate Ext Rel 25 Mg Tabcr PO 25 mg DAILY ANDRES Administration Nitroglycerin 0.4 mg 10/18/24 13:08 10/18/24 13:13 Nitroglycerin Sl 0.4 Mg Tablet SUBLINGUAL 0.4 mg Q5MIN PRN Administration Chest Pain Ondansetron HCl 4 mg 10/17/24 11:41 Ondansetron Inj 4 Mg/2 Ml Vial IV PUSH Q4H PRN Nausea Oxybutynin Chloride 15 mg 10/18/24 09:00 10/18/24 09:13 Oxybutynin Chloride Xl 5 Mg Tab.Er.24 PO 15 mg DAILY ANDRES Administration Perflutren Lipid Microsphere 0 ml 10/17/24 15:25 Perflutren Lipid Microspheres 1.5 Ml Vial Diluted To 10 Ml Total Volume IV PUSH 10/20/24 15:25 ONCE PRN adequate visualization Protocol Tamsulosin HCl 0.4 mg 10/17/24 21:00 10/17/24 22:12 Tamsulosin Hcl 0.4 Mg Capsule PO 0.4 mg HS ANDRES Administration Radiology Results: ITS Impressions Head CT 10/17/24 10:25 IMPRESSION: No acute intracranial findings. Chest X-Ray 10/17/24 10:38 IMPRESSION: Left basilar atelectasis versus pneumonia with possible effusion. Bilateral interstitial thickening suggestive of pneumonitis versus pulmonary edema. Chest CT 10/18/24 10:28 Impression: Suspected minimal hypoventilatory/atelectatic change versus possibly minimal pulmonary edema change. Labs Labs: Laboratory Results - last 24 hr 10/17/24 10/17/24 10/17/24 15:53 15:54 17:13 WBC 19.8 H RBC 4.38 L Hgb 15.4 Hct 45.9 MCV 104.8 H D MCH 35.2 H MCHC 33.6 RDW 14.1 Plt Count 384 H MPV 10.3 Immature Gran % (Auto) 0.4 Neut % (Auto) 69.7 Lymph % (Auto) 18.0 L [place] % (Auto) 11.6 H Eos % (Auto) 0.1 Baso % (Auto) 0.2 Lymph # (Auto) 3.56 H [place] # (Auto) 2.3 H Eos # (Auto) 0.0 Baso # (Auto) 0.0 Abs Immat Gran (auto) 0.08 H Absolute Neuts (auto) 13.8 H Absolute Nucleated RBC 0.000 Nucleated RBC % 0.0 PT 13.5 INR 1.0 APTT 25.7 Sodium Potassium Chloride Carbon Dioxide Anion Gap BUN Creatinine Estim Creat Clear Calc Estimated GFR Glucose POC Capillary Glucose 332 H Calcium Magnesium Iron TIBC % Saturation Ferritin Total Bilirubin AST ALT Alkaline Phosphatase Troponin I 0.131 H* Cancelled Total Protein Albumin Vitamin B12 Folate TSH 0.803 TSH (Reflex) 0.870 10/17/24 10/17/24 10/17/24 19:52 20:50 22:40 WBC RBC Hgb Hct MCV MCH MCHC RDW Plt Count MPV Immature Gran % (Auto) Neut % (Auto) Lymph % (Auto) [place] % (Auto) Eos % (Auto) Baso % (Auto) Lymph # (Auto) [place] # (Auto) Eos # (Auto) Baso # (Auto) Abs Immat Gran (auto) Absolute Neuts (auto) Absolute Nucleated RBC Nucleated RBC % PT INR APTT 30.4 Sodium Potassium Chloride Carbon Dioxide Anion Gap BUN Creatinine Estim Creat Clear Calc Estimated GFR Glucose POC Capillary Glucose 218 H 232 H Calcium Magnesium Iron TIBC % Saturation Ferritin Total Bilirubin AST ALT Alkaline Phosphatase Troponin I Total Protein Albumin Vitamin B12 Folate TSH TSH (Reflex) 10/18/24 10/18/24 10/18/24 05:06 05:38 06:25 WBC 20.2 H RBC 4.07 L Hgb 14.3 Hct 42.9 MCV 105.4 H MCH 35.1 H MCHC 33.3 RDW 13.8 Plt Count 306 MPV 10.6 H Immature Gran % (Auto) 0.5 Neut % (Auto) 68.5 Lymph % (Auto) 19.1 [place] % (Auto) 11.1 H Eos % (Auto) 0.6 Baso % (Auto) 0.2 Lymph # (Auto) 3.85 H [place] # (Auto) 2.2 H Eos # (Auto) 0.1 Baso # (Auto) 0.1 Abs Immat Gran (auto) 0.10 H Absolute Neuts (auto) 13.8 H Absolute Nucleated RBC 0.000 Nucleated RBC % 0.0 PT INR APTT 47.7 H Sodium 136 L Potassium 4.0 Chloride 103 Carbon Dioxide 25 Anion Gap 8 BUN 32 H D Creatinine 1.42 H Estim Creat Clear Calc 54 Estimated GFR 50 L Glucose 236 H POC Capillary Glucose Calcium 10.2 Magnesium 1.6 Iron 54 TIBC 286 % Saturation 19 L Ferritin 162.00 Total Bilirubin 0.8 AST 38 ALT 33 Alkaline Phosphatase 101 Troponin I Total Protein 7.0 Albumin 3.7 Vitamin B12 949.0 H Folate > 20.0 H TSH TSH (Reflex) 10/18/24 10/18/24 10/18/24 07:29 11:27 12:26 WBC RBC Hgb Hct MCV MCH MCHC RDW Plt Count MPV Immature Gran % (Auto) Neut % (Auto) Lymph % (Auto) [place] % (Auto) Eos % (Auto) Baso % (Auto) Lymph # (Auto) [place] # (Auto) Eos # (Auto) Baso # (Auto) Abs Immat Gran (auto) Absolute Neuts (auto) Absolute Nucleated RBC Nucleated RBC % PT INR APTT 64.7 H Sodium Potassium Chloride Carbon Dioxide Anion Gap BUN Creatinine Estim Creat Clear Calc Estimated GFR Glucose POC Capillary Glucose 216 H 301 H Calcium Magnesium Iron TIBC % Saturation Ferritin Total Bilirubin AST ALT Alkaline Phosphatase Troponin I Total Protein Albumin Vitamin B12 Folate TSH TSH (Reflex) Quality VTE Prophylaxis VTE prophylaxis: pharmacologic ordered
[2024-10-18] MEDS: PERFLUTREN LIPID MICROSPHERES 1.5 ML VIAL DILUTED TO 10 ML TOTAL VOLUME IV PUSH (15:03)
[2024-10-18 15:07] LABS: Troponin I 0.082 ng/mL (0.000-0.034)
[2024-10-18] MEDS: BELLADONNA ALK/PHENOB ELIX 10 ML, MAG HYDROX/ALUMINUM HYD/SIMETH 30 ML, LIDOCAINE 2% VI... PO (15:11)
--- NOTE | 2024-10-18 15:55 | P.PNIM_ITS ---
Progress Note: A&P Assessment and Plan (1) SIRS (systemic inflammatory response syndrome): Code(s): R65.10 - Systemic inflammatory response syndrome (SIRS) of non-infectious origin without acute organ dysfunction Status: Acute Assessment and Plan: * initially meeting SIRS criteria with elevated heart rate of 110, and white blood cell count 18.3 * chest x-ray was negative * head CT was negative * blood cultures obtained and pending * order placed for an echocardiogram * continue cefepime * vancomycin discontinued after negative MRSA swab (2) Elevated troponin: Code(s): R79.89 - Other specified abnormal findings of blood chemistry Status: Acute Assessment and Plan: * troponin 0.123> 0.131 * continue heparin infusion for ACS protocol * cardiology consulted for potential NSTEMI versus cocaine induced elevated troponin * urine drug screen positive for cocaine and cannabinoids * continue cardiac monitoring * obtain echocardiogram monitor (3) Type 2 diabetes mellitus: Qualifiers: Diabetes mellitus manager intermediate insulin use: with manager intermediate use Diabetes mellitus complication status: without complication Qualified Code(s): E11.9 - Type 2 diabetes mellitus without complications; Z79.4 - skilled nursing (current) use of insulin Code(s): E11.9 - Type 2 diabetes mellitus without complications Status: Acute Assessment and Plan: * Blood sugars ranging 92-124 * Hgb A1C 7.6 on 09/17/2024 * Accu checks AC/HS * high-dose SSI ordered * hypoglycemic protocol in place * Diabetic diet ordered (4) CONNIE (acute kidney injury): Code(s): N17.9 - Acute kidney failure, unspecified Status: Acute Assessment and Plan: * creatinine 1.42 from 1.91, EGFR 36 * baseline creatinine 1.2-1.36, EGFR 53-60 * continue to trend * s/p IVF (5) Hypercalcemia: Code(s): E83.52 - Hypercalcemia Status: Acute Assessment and Plan: * initial calcium 12.2 with a normal albumin level * resolved Ca 10.2 * will check PTH and thyroid levels * start in alendronate 10 mg daily * monitor (6) Altered mental status: Code(s): R41.82 - Altered mental status, unspecified Status: Acute Assessment and Plan: likely secondary to cocaine abuse * continue neuro checks * urine drug screen positive for cannabinoids and cocaine * AMS resolved (7) Essential hypertension: Code(s): I10 - Essential (primary) hypertension Status: Chronic Assessment and Plan: * blood pressure ranging 129/93 to 163/86 * continue metoprolol XL 25 mg daily * Hydralazine ordered for systolic greater than 160 (8) Substance abuse: Code(s): F19.10 - Other psychoactive substance abuse, uncomplicated Status: Acute Assessment and Plan: * urine drug screen positive for cannabinoids and cocaine (9) Hyperlipidemia: Code(s): E78.5 - Hyperlipidemia, unspecified Status: Acute Assessment and Plan: * continue atorvastatin and Plavix Plan DVT prophylaxis on heparin infusion Subjective Date/time seen: 10/18/24 15:55 Interval history: Comfortable at bedside Review of Systems Review of Systems: All systems reviewed & are unremarkable except as noted in HPI and below Exam Narrative: General: In no acute distress, well nourished Head: atraumatic, no encephalopathy Eyes:PERRLA, sclera clear ENT: moist mucous membranes, nasal passages clear Neck: supple, no JVD, no adenopathy, trachea midline Cardiac: Normal S1 and S2. No murmur, gallops or friction rubs, peripheral pulses intact. Respiratory: Lungs clear to auscultation, no adventitious lung sounds Currently on room air Gastrointestinal: soft, non-distended, non-tender, normoactive bowel sounds. : voiding without difficulty. Extremities: moves all extremities well, no edema Skin: excoriation/ yeast noted in bilateral gluteal folds Neuro: Alert and oriented x2-3, cranial nerves intact, no neuro deficits. Psych: normal mood, normal affect, interactive Objective Data Vital Signs Vital Signs: Vital Signs - 24 hr 10/17/24 16:00 10/17/24 16:19 10/17/24 17:47 Temperature 99.1 F Pulse Rate 110 H 113 H 123 H Respiratory Rate 14 Blood Pressure 163/86 H Pulse Oximetry 100 Oxygen Delivery 10/17/24 20:00 10/17/24 20:00 10/17/24 20:00 Temperature 98.5 F Pulse Rate 114 H 99 Respiratory Rate 15 Blood Pressure 178/76 H Pulse Oximetry 100 Oxygen Delivery Room Air 10/17/24 22:00 10/17/24 23:16 10/18/24 00:00 Temperature 98.2 F Pulse Rate 104 H 110 H Respiratory Rate 15 Blood Pressure 139/84 Pulse Oximetry 100 Oxygen Delivery Room Air 10/18/24 00:00 10/18/24 02:00 10/18/24 04:00 Temperature 98.5 F Pulse Rate 115 H 116 H 112 H Respiratory Rate 15 Blood Pressure 147/65 H Pulse Oximetry 100 Oxygen Delivery 10/18/24 04:00 10/18/24 04:00 10/18/24 06:00 Temperature Pulse Rate 108 H 115 H Respiratory Rate Blood Pressure Pulse Oximetry Oxygen Delivery Room Air 10/18/24 07:36 10/18/24 08:00 10/18/24 08:00 Temperature 99 F Pulse Rate 110 H 111 H 105 H Respiratory Rate 16 16 Blood Pressure 159/95 H Pulse Oximetry 100 100 Oxygen Delivery Room Air 10/18/24 09:13 10/18/24 10:00 10/18/24 11:35 Temperature 99.5 F Pulse Rate 111 H 112 H 95 Respiratory Rate 20 Blood Pressure 139/75 Pulse Oximetry 100 Oxygen Delivery 10/18/24 12:00 10/18/24 12:00 10/18/24 13:08 Temperature Pulse Rate 95 102 H Respiratory Rate 20 Blood Pressure 155/65 H Pulse Oximetry 100 Oxygen Delivery Room Air 10/18/24 13:13 Temperature Pulse Rate Respiratory Rate Blood Pressure 129/65 Pulse Oximetry Oxygen Delivery Intake/Output Intake/Output: Intake & Output 10/15/24 10/16/24 10/17/24 10/18/24 23:59 23:59 23:59 23:59 Intake Total 2159 3099.8 Output Total 500 900 Balance 1659 2199.8 Meds/Results Medications: Active Medications Generic Name Dose Route Start Last Admin Trade Name Faisalq PRN Reason Stop Dose Admin Acetaminophen 650 mg 10/17/24 16:42 Acetaminophen 325 Mg Tablet PO Q4H PRN Mild Pain (1-3) or Fever Alendronate Sodium 10 mg 10/18/24 06:30 10/18/24 05:35 Alendronate Sodium 10 Mg Tablet PO 10 mg DAILY@0630 ANDRES Administration Amitriptyline HCl 100 mg 10/17/24 21:00 10/17/24 22:12 Amitriptyline Hcl 25 Mg Tablet PO 100 mg HS ANDRES Administration Atorvastatin Calcium 80 mg 10/17/24 21:00 10/17/24 22:12 Atorvastatin 40 Mg Tablet PO 80 mg HS ANDRES Administration Clopidogrel Bisulfate 75 mg 10/18/24 09:00 10/18/24 09:13 Clopidogrel Bisulfate 75 Mg Tablet PO 75 mg DAILY ANDRES Administration Dextrose 12.5 gm 10/17/24 16:45 Dextrose 50% 25 Gm/50 Ml Syringe IV PUSH PRN PRN Hypoglycemia Protocol Duloxetine HCl 30 mg 10/18/24 09:00 10/18/24 09:13 Duloxetine Hcl 30 Mg Capsule.Dr PO 30 mg DAILY ANDRES Administration Ergocalciferol 50,000 units 10/27/24 09:00 Ergocalciferol 50,000 Units Capsule PO Th@0900 ANDRES Famotidine 20 mg 10/17/24 17:00 10/18/24 09:13 Famotidine 20 Mg Tablet PO 20 mg BID ANDRES Administration Folic Acid 1 mg 10/18/24 09:00 10/18/24 09:13 Folic Acid 1 Mg Tablet PO 1 mg DAILY ANDRES Administration Gabapentin 600 mg 10/17/24 17:00 10/18/24 12:26 Gabapentin 300 Mg Capsule PO 600 mg TID ANDRES Administration Glucagon 1 mg 10/17/24 16:45 Glucagon For Inj 1 Mg Vial IM PRN PRN Hypoglycemia Protocol Glucose 15 gm 10/17/24 16:45 Glucose Oral Gel 15 Gm Of Glucse In 37.5 Gm Tube PO PRN PRN Hypoglycemia Protocol Heparin Sodium (Porcine) 4,000 units 10/17/24 15:23 10/18/24 06:13 Heparin Sodium 5,000 Units/Ml Vial IV PUSH 4,000 units PRN PRN Administration aPTT less than 55 seconds Heparin Sodium (Porcine) 3,000 units 10/17/24 15:23 10/18/24 12:53 Heparin Sodium 5,000 Units/Ml Vial IV PUSH 3,000 units PRN PRN Administration aPTT 55 - 70 seconds Hydralazine HCl 10 mg 10/18/24 01:28 Hydralazine Hcl 20 Mg/Ml Vial IV PUSH Q8H PRN Blood Pressure - High Hydroxyurea 500 mg 10/18/24 09:00 10/18/24 09:13 Hydroxyurea (*Chemo) 500 Mg Capsule PO 500 mg DAILY ANDRES Administration Sodium Chloride 1,000 mls @ 125 mls/hr 10/17/24 11:45 10/18/24 09:12 Normal Saline Iv IV CONT 125 mls/hr .Q8H ANDRES Administration Cefepime HCl 2 gm in 50 mls @ 100 mls/hr 10/17/24 22:00 10/18/24 10:03 Maxipime 2 Gm/Ns 50 Ml IVPB Infused Q12HR ANDRES Infusion Heparin Sodium/Dextrose 25,000 units in 250 mls @ 18 mls/hr 10/17/24 15:25 10/18/24 12:54 Heparin Sodium/D5w 100 Units/Ml IV CONT 1,800 units/hr .[id number] ANDRES 18 mls/hr Titration Protocol 1,800 UNITS/HR Dextrose 1,000 mls @ 100 mls/hr 10/17/24 16:45 Dextrose 5% 1,000 Ml IVPB PRN PRN Hypoglycemia Protocol Insulin Aspart 4 - 8 units 10/17/24 17:00 10/18/24 12:26 Insulin Aspart (*Bkc) 100 Units/Ml SUB-Q 6 units TIDWM ANDRES Administration Protocol Insulin Aspart 2 - 4 units 10/17/24 21:00 10/17/24 23:06 Insulin Aspart (*Bkc) 100 Units/Ml SUB-Q 2 units HS ANDRES Administration Protocol Levetiracetam 250 mg 10/17/24 17:00 10/18/24 12:26 Levetiracetam 250 Mg Tablet PO 250 mg TID ANDRES Administration Metoprolol Succinate 25 mg 10/18/24 09:00 10/18/24 09:13 Metoprolol Succinate Ext Rel 25 Mg Tabcr PO 25 mg DAILY ANDRES Administration Nitroglycerin 0.4 mg 10/18/24 13:08 10/18/24 13:13 Nitroglycerin Sl 0.4 Mg Tablet SUBLINGUAL 0.4 mg Q5MIN PRN Administration Chest Pain Ondansetron HCl 4 mg 10/17/24 11:41 Ondansetron Inj 4 Mg/2 Ml Vial IV PUSH Q4H PRN Nausea Oxybutynin Chloride 15 mg 10/18/24 09:00 10/18/24 09:13 Oxybutynin Chloride Xl 5 Mg Tab.Er.24 PO 15 mg DAILY ANDRES Administration Perflutren Lipid Microsphere 0 ml 10/17/24 15:25 Perflutren Lipid Microspheres 1.5 Ml Vial Diluted To 10 Ml Total Volume IV PUSH 10/20/24 15:25 ONCE PRN adequate visualization Protocol Tamsulosin HCl 0.4 mg 10/17/24 21:00 10/17/24 22:12 Tamsulosin Hcl 0.4 Mg Capsule PO 0.4 mg HS ANDRES Administration Radiology Results: ITS Impressions Head CT 10/17/24 10:25 IMPRESSION: No acute intracranial findings. Chest X-Ray 10/17/24 10:38 IMPRESSION: Left basilar atelectasis versus pneumonia with possible effusion. Bilateral interstitial thickening suggestive of pneumonitis versus pulmonary edema. Chest CT 10/18/24 10:28 Impression: Suspected minimal hypoventilatory/atelectatic change versus possibly minimal pulmonary edema change. Labs Labs: Laboratory Results - last 24 hr 10/17/24 10/17/24 10/17/24 15:53 15:54 17:13 WBC 19.8 H RBC 4.38 L Hgb 15.4 Hct 45.9 MCV 104.8 H D MCH 35.2 H MCHC 33.6 RDW 14.1 Plt Count 384 H MPV 10.3 Immature Gran % (Auto) 0.4 Neut % (Auto) 69.7 Lymph % (Auto) 18.0 L [place] % (Auto) 11.6 H Eos % (Auto) 0.1 Baso % (Auto) 0.2 Lymph # (Auto) 3.56 H [place] # (Auto) 2.3 H Eos # (Auto) 0.0 Baso # (Auto) 0.0 Abs Immat Gran (auto) 0.08 H Absolute Neuts (auto) 13.8 H Absolute Nucleated RBC 0.000 Nucleated RBC % 0.0 PT 13.5 INR 1.0 APTT 25.7 Sodium Potassium Chloride Carbon Dioxide Anion Gap BUN Creatinine Estim Creat Clear Calc Estimated GFR Glucose POC Capillary Glucose 332 H Calcium Magnesium Iron TIBC % Saturation Ferritin Total Bilirubin AST ALT Alkaline Phosphatase Troponin I 0.131 H* Cancelled Total Protein Albumin Vitamin B12 Folate TSH 0.803 TSH (Reflex) 0.870 10/17/24 10/17/24 10/17/24 19:52 20:50 22:40 WBC RBC Hgb Hct MCV MCH MCHC RDW Plt Count MPV Immature Gran % (Auto) Neut % (Auto) Lymph % (Auto) [place] % (Auto) Eos % (Auto) Baso % (Auto) Lymph # (Auto) [place] # (Auto) Eos # (Auto) Baso # (Auto) Abs Immat Gran (auto) Absolute Neuts (auto) Absolute Nucleated RBC Nucleated RBC % PT INR APTT 30.4 Sodium Potassium Chloride Carbon Dioxide Anion Gap BUN Creatinine Estim Creat Clear Calc Estimated GFR Glucose POC Capillary Glucose 218 H 232 H Calcium Magnesium Iron TIBC % Saturation Ferritin Total Bilirubin AST ALT Alkaline Phosphatase Troponin I Total Protein Albumin Vitamin B12 Folate TSH TSH (Reflex) 10/18/24 10/18/24 10/18/24 05:06 05:38 06:25 WBC 20.2 H RBC 4.07 L Hgb 14.3 Hct 42.9 MCV 105.4 H MCH 35.1 H MCHC 33.3 RDW 13.8 Plt Count 306 MPV 10.6 H Immature Gran % (Auto) 0.5 Neut % (Auto) 68.5 Lymph % (Auto) 19.1 [place] % (Auto) 11.1 H Eos % (Auto) 0.6 Baso % (Auto) 0.2 Lymph # (Auto) 3.85 H [place] # (Auto) 2.2 H Eos # (Auto) 0.1 Baso # (Auto) 0.1 Abs Immat Gran (auto) 0.10 H Absolute Neuts (auto) 13.8 H Absolute Nucleated RBC 0.000 Nucleated RBC % 0.0 PT INR APTT 47.7 H Sodium 136 L Potassium 4.0 Chloride 103 Carbon Dioxide 25 Anion Gap 8 BUN 32 H D Creatinine 1.42 H Estim Creat Clear Calc 54 Estimated GFR 50 L Glucose 236 H POC Capillary Glucose Calcium 10.2 Magnesium 1.6 Iron 54 TIBC 286 % Saturation 19 L Ferritin 162.00 Total Bilirubin 0.8 AST 38 ALT 33 Alkaline Phosphatase 101 Troponin I Total Protein 7.0 Albumin 3.7 Vitamin B12 949.0 H Folate > 20.0 H TSH TSH (Reflex) 10/18/24 10/18/24 10/18/24 07:29 11:27 12:26 WBC RBC Hgb Hct MCV MCH MCHC RDW Plt Count MPV Immature Gran % (Auto) Neut % (Auto) Lymph % (Auto) [place] % (Auto) Eos % (Auto) Baso % (Auto) Lymph # (Auto) [place] # (Auto) Eos # (Auto) Baso # (Auto) Abs Immat Gran (auto) Absolute Neuts (auto) Absolute Nucleated RBC Nucleated RBC % PT INR APTT 64.7 H Sodium Potassium Chloride Carbon Dioxide Anion Gap BUN Creatinine Estim Creat Clear Calc Estimated GFR Glucose POC Capillary Glucose 216 H 301 H Calcium Magnesium Iron TIBC % Saturation Ferritin Total Bilirubin AST ALT Alkaline Phosphatase Troponin I Total Protein Albumin Vitamin B12 Folate TSH TSH (Reflex) 10/18/24 10/18/24 13:24 14:34 WBC RBC Hgb Hct MCV MCH MCHC RDW Plt Count MPV Immature Gran % (Auto) Neut % (Auto) Lymph % (Auto) [place] % (Auto) Eos % (Auto) Baso % (Auto) Lymph # (Auto) [place] # (Auto) Eos # (Auto) Baso # (Auto) Abs Immat Gran (auto) Absolute Neuts (auto) Absolute Nucleated RBC Nucleated RBC % PT INR APTT Sodium Potassium Chloride Carbon Dioxide Anion Gap BUN Creatinine Estim Creat Clear Calc Estimated GFR Glucose POC Capillary Glucose Calcium Magnesium Cancelled Iron TIBC % Saturation Ferritin Total Bilirubin AST ALT Alkaline Phosphatase Troponin I 0.082 H* Total Protein Albumin Vitamin B12 Folate TSH TSH (Reflex) Quality VTE Prophylaxis VTE prophylaxis: pharmacologic ordered
[2024-10-18 16:18] LABS: Glucose Point of Care 181 mg/dl (65-105)
--- NOTE | 2024-10-18 16:30 | IVDEFINITY ---
Prior to administration of IV Definity the patient was educated on the risks and benefits of the imaging enhancing agent including potential adverse side effects. The patient verbalized understanding. Allergies were verified. No exclusion criteria were identified and at least one of the following inclusion criteria were met: 1) physician request, 2) patient technically difficult to image (per the [place] [employer] guidelines of two or more segments not discernable within the apical view), or 3) questionable left ventricular function. ?
[2024-10-18] MEDS: ATORVASTATIN 40 MG TABLET 80 MG PO (20:46)
[2024-10-18] MEDS: AMITRIPTYLINE HCL 25 MG TABLET 100 MG PO (20:47)
[2024-10-18] MEDS: TAMSULOSIN HCL 0.4 MG CAPSULE PO (20:47)
[2024-10-18 20:59] LABS: Glucose Point of Care 244 mg/dl (65-105)
[2024-10-19] VITALS (11 sets, daily range): BP systolic 145–178; BP diastolic 66–70; PULSE 87–102; RESP 14–18; TEMP 36.6–36.9; O2SAT 97–100
[2024-10-19 04:37] LABS: Basophils Absolute Auto 0.1 K/mm3 (0.0-0.1); Basophils Percent Auto 0.6 % (0.2-1.2); Eosinophils Absolute Auto 0.3 K/mm3 (0-0.3); Eosinophils Percent Auto 2.1 % (0-4.4); Hemoglobin 12.4 g/dL (14.0-18.0); Immature Granulocyte Absolute 0.08 K/mm3 (0.00-0.031); Immature Granulocyte Percent A 0.6 % (0-0.5); Lymphocytes Absolute Auto 3.06 K/mm3 (0.9-3.2); Lymphocytes Percent Auto 24.2 % (18.3-44.2); Mean Corpuscular HGB Conc 33.5 g/dl (32-36); Mean Corpuscular Hemoglobin 35.1 pg (26-34); Mean Corpuscular Volume 104.8 fl (80-100); Mean Platelet Volume 10.4 fl (7.4-10.4); Monocytes Absolute Auto 1.3 K/mm3 (0.1-0.6); Monocytes Percent Auto 10.3 % (2.6-8.5); Neutrophils Absolute Auto 7.9 K/mm3 (1.3-6.7); Neutrophils Percent Auto 62.2 % (45.5-73.1); Platelet Count Result 243 k/mm3 (150-375); Red Blood Count 3.53 M/mm3 (4.6-6.20); Red Cell Distribution Width 13.7 % (11.5-14.5); White Blood Count 12.6 K/mm3 (4.5-10.0)
[2024-10-19 04:46] LABS: Alanine Aminotransferase 28 U/L (6-50); Albumin Level 3.3 g/dL (3.5-5.1); Alkaline Phosphatase 84 U/L (38-126); Anion Gap 6 mmol/L (4-12); Aspartate Amino Transferase 24 U/L (17-59); Bilirubin,Total 0.6 mg/dL (0.2-1.3); Blood Urea Nitrogen 26 mg/dL (9-20); Calcium 9.1 mg/dL (8.4-10.2); Carbon Dioxide 24 mmol/L (22-30); Chloride 105 mmol/L (98-107); Estimated CRCL calculation 58 ml/min; Estimated Glomerular Filt Rate 55; Glucose 203 mg/dL (65-110); Potassium 3.7 mmol/L (3.4-5.0); Sodium 135 mmol/L (137-145)
[2024-10-19] MEDS: MAG HYDROX/AL HYDROX/SIMETH 30 ML UDC PO (06:25)
[2024-10-19] MEDS: ALENDRONATE SODIUM 10 MG TABLET PO (06:25)
[2024-10-19 07:34] LABS: Glucose Point of Care 200 mg/dl (65-105)
[2024-10-19] MEDS: oxyBUTYnin CHLORIDE XL 5 MG TAB.ER.24 15 MG PO (08:11)
[2024-10-19] MEDS: levETIRAcetam 250 MG TABLET PO ×2 (08:11→12:31)
[2024-10-19] MEDS: GABAPENTIN 300 MG CAPSULE 600 MG PO ×2 (08:12→12:30)
[2024-10-19] MEDS: METOPROLOL SUCCINATE EXT REL 25 MG TABCR PO (08:12)
[2024-10-19] MEDS: HYDROXYUREA (*CHEMO) 500 MG CAPSULE PO (08:12)
[2024-10-19] MEDS: FAMOTIDINE 20 MG TABLET PO (08:12)
[2024-10-19] MEDS: DULoxetine HCL 30 MG CAPSULE.DR PO (08:13)
[2024-10-19] MEDS: FOLIC ACID 1 MG TABLET PO (08:13)
[2024-10-19] MEDS: CLOPIDOGREL BISULFATE 75 MG TABLET PO (08:13)
[2024-10-19] MEDS: CEFEPIME 2 GM/NS 50 ML 2 GM/50 ML BAG IVPB (08:15)
[2024-10-19 09:07] LABS: Troponin I 0.058 ng/mL (0.000-0.034)
--- NOTE | 2024-10-19 11:27 | PM.PNCARD ---
Progress Note: A&P Assessment and Plan (1) Elevated troponin: Code(s): R79.89 - Other specified abnormal findings of blood chemistry Status: Acute Assessment and Plan: His troponin is elevated at 0.123, 0.131. Troponins are down trending. Chest pain gone. Echocardiogram unremarkable. At this point, elevated troponins are unlikely related to ACS. Much more likely related to a combination renal failure, polysubstance use. Continue treat medically. Continue aspirin, atorvastatin, clopidogrel, metoprolol and other medical regimen. Outpatient stress test could be performed if recurrent chest pain (2) Essential hypertension: Code(s): I10 - Essential (primary) hypertension Status: Chronic Assessment and Plan: At goal. (3) UTI (urinary tract infection): Code(s): N39.0 - Urinary tract infection, site not specified Status: Acute Assessment and Plan: Antibiotics per hospitalist. (4) Pacemaker: Code(s): Z95.0 - Presence of cardiac pacemaker Status: Acute Assessment and Plan: Pt. states pacemaker implanted at [facility] Will request records, but he currently is not paced. Subjective Date/time seen: 10/19/24 11:27 Interval history: Cardiology follow up visit for elevated troponin Date of service 10/19/2024: Currently no chest pain, shortness of breath. Feels okay and inquires about going home Review of Systems Review of Systems: All systems reviewed & are unremarkable except as noted in HPI and below Constitutional: Constitutional: Denies body ache(s) ENT: Denies Normal hearing present Cardiovascular: Cardiovascular: Denies chest pain Respiratory: Respiratory: Denies hemoptysis Exam Narrative: Alert oriented appears stated age Const: General: comfortable, no acute distress, alert and awake Orientation/consciousness: patient oriented x3 Other: Oriented to person, place HENMT: Head: normal to inspection Eyes: General: appearance normal, both eyes and all related structures Sclera: sclerae normal Neck: Neck: normal visual inspection, supple and no JVD Carotids: normal carotid upstroke Resp: Effort & Inspection: normal respiratory effort Auscultation: clear to auscultation bilaterally Cardio: Rate: regular rate Rhythm: regular rhythm Heart sounds: S1 normal heart sound present, S2 normal heart sound present and no murmurs GI: Auscultation: normal bowel sounds Skin: General skin exam: normal color Neuro: General: patient oriented x3 Speech: normal speech Extrem: General: normal to inspection Other: No edema Psych: Appearance: grossly normal Mental Status: mental status grossly normal Objective Data Vital Signs Vital Signs: Vital Signs - 24 hr 10/18/24 11:35 10/18/24 12:00 10/18/24 12:00 Temperature 37.5 C Pulse Rate 95 95 102 H Respiratory Rate 20 20 Blood Pressure 139/75 Pulse Oximetry 100 100 Oxygen Delivery Room Air 10/18/24 13:08 10/18/24 13:13 10/18/24 14:00 Temperature Pulse Rate 102 H Respiratory Rate Blood Pressure 155/65 H 129/65 Pulse Oximetry Oxygen Delivery 10/18/24 15:15 10/18/24 16:00 10/18/24 16:00 Temperature 36.7 C Pulse Rate 92 92 94 Respiratory Rate 16 16 Blood Pressure 134/76 Pulse Oximetry 99 99 Oxygen Delivery Room Air 10/18/24 18:00 10/18/24 20:00 10/18/24 20:00 Temperature 36.7 C Pulse Rate 94 91 Respiratory Rate 16 Blood Pressure 147/73 H Pulse Oximetry 100 Oxygen Delivery Room Air 10/18/24 20:00 10/18/24 22:00 10/18/24 23:36 Temperature 36.7 C Pulse Rate 99 92 94 Respiratory Rate 16 Blood Pressure 147/68 H Pulse Oximetry 94 Oxygen Delivery 10/19/24 00:00 10/19/24 00:00 10/19/24 02:00 Temperature Pulse Rate 91 94 Respiratory Rate Blood Pressure Pulse Oximetry Oxygen Delivery Room Air 10/19/24 04:00 10/19/24 04:00 10/19/24 04:00 Temperature 36.6 C Pulse Rate 100 102 H Respiratory Rate 16 Blood Pressure 145/70 H Pulse Oximetry 100 Oxygen Delivery Room Air 10/19/24 06:00 10/19/24 07:25 10/19/24 08:12 Temperature 36.9 C Pulse Rate 96 92 101 H Respiratory Rate 14 Blood Pressure 153/66 H Pulse Oximetry 97 Oxygen Delivery 10/19/24 08:20 10/19/24 10:00 Temperature Pulse Rate 99 102 H Respiratory Rate Blood Pressure Pulse Oximetry Oxygen Delivery Intake/Output Intake/Output: Intake & Output 10/16/24 10/17/24 10/18/24 10/19/24 23:59 23:59 23:59 23:59 Intake Total 2159 6119.2 810 Output Total 500 1100 Balance 1659 5019.2 810 Meds/Results Medications: Active Medications Generic Name Dose Route Start Last Admin Trade Name Freq PRN Reason Stop Dose Admin Acetaminophen 650 mg 10/17/24 16:42 Acetaminophen 325 Mg Tablet PO Q4H PRN Mild Pain (1-3) or Fever Al Hydrox/Mg Hydrox/Simethicone 30 ml 10/19/24 06:03 10/19/24 06:25 Mag Hydrox/Al Hydrox/Simeth 30 Ml Udc PO 30 ml Q6H PRN Administration Indigestion Alendronate Sodium 10 mg 10/18/24 06:30 10/19/24 06:25 Alendronate Sodium 10 Mg Tablet PO 10 mg DAILY@0630 ANDRES Administration Amitriptyline HCl 100 mg 10/17/24 21:00 10/18/24 20:47 Amitriptyline Hcl 25 Mg Tablet PO 100 mg HS ANDRES Administration Atorvastatin Calcium 80 mg 10/17/24 21:00 10/18/24 20:46 Atorvastatin 40 Mg Tablet PO 80 mg HS ANDRES Administration Clopidogrel Bisulfate 75 mg 10/18/24 09:00 10/19/24 08:13 Clopidogrel Bisulfate 75 Mg Tablet PO 75 mg DAILY ANDRES Administration Dextrose 12.5 gm 10/17/24 16:45 Dextrose 50% 25 Gm/50 Ml Syringe IV PUSH PRN PRN Hypoglycemia Protocol Duloxetine HCl 30 mg 10/18/24 09:00 10/19/24 08:13 Duloxetine Hcl 30 Mg Capsule.Dr PO 30 mg DAILY ANDRES Administration Ergocalciferol 50,000 units 10/27/24 09:00 Ergocalciferol 50,000 Units Capsule PO Th@0900 ANDRES Famotidine 20 mg 10/17/24 17:00 10/19/24 08:12 Famotidine 20 Mg Tablet PO 20 mg BID ANDRES Administration Folic Acid 1 mg 10/18/24 09:00 10/19/24 08:13 Folic Acid 1 Mg Tablet PO 1 mg DAILY ANDRES Administration Gabapentin 600 mg 10/17/24 17:00 10/19/24 08:12 Gabapentin 300 Mg Capsule PO 600 mg TID ANDRES Administration Glucagon 1 mg 10/17/24 16:45 Glucagon For Inj 1 Mg Vial IM PRN PRN Hypoglycemia Protocol Glucose 15 gm 10/17/24 16:45 Glucose Oral Gel 15 Gm Of Glucse In 37.5 Gm Tube PO PRN PRN Hypoglycemia Protocol Hydralazine HCl 10 mg 10/18/24 01:28 Hydralazine Hcl 20 Mg/Ml Vial IV PUSH Q8H PRN Blood Pressure - High Hydroxyurea 500 mg 10/18/24 09:00 10/19/24 08:12 Hydroxyurea (*Chemo) 500 Mg Capsule PO 500 mg DAILY ANDRES Administration Cefepime HCl 2 gm in 50 mls @ 100 mls/hr 10/17/24 22:00 10/19/24 08:15 Maxipime 2 Gm/Ns 50 Ml IVPB 100 mls/hr Q12HR ANDRES Administration Dextrose 1,000 mls @ 100 mls/hr 10/17/24 16:45 Dextrose 5% 1,000 Ml IVPB PRN PRN Hypoglycemia Protocol Insulin Aspart 4 - 8 units 10/17/24 17:00 10/18/24 17:10 Insulin Aspart (*Bkc) 100 Units/Ml SUB-Q Not Given TIDWM ANDRES Protocol Insulin Aspart 2 - 4 units 10/17/24 21:00 10/18/24 20:50 Insulin Aspart (*Bkc) 100 Units/Ml SUB-Q 2 units HS ANDRES Administration Protocol Levetiracetam 250 mg 10/17/24 17:00 10/19/24 08:11 Levetiracetam 250 Mg Tablet PO 250 mg TID ANDRES Administration Metoprolol Succinate 25 mg 10/18/24 09:00 10/19/24 08:12 Metoprolol Succinate Ext Rel 25 Mg Tabcr PO 25 mg DAILY ANDRES Administration Nitroglycerin 0.4 mg 10/18/24 13:08 10/18/24 13:13 Nitroglycerin Sl 0.4 Mg Tablet SUBLINGUAL 0.4 mg Q5MIN PRN Administration Chest Pain Ondansetron HCl 4 mg 10/17/24 11:41 Ondansetron Inj 4 Mg/2 Ml Vial IV PUSH Q4H PRN Nausea Oxybutynin Chloride 15 mg 10/18/24 09:00 10/19/24 08:11 Oxybutynin Chloride Xl 5 Mg Tab.Er.24 PO 15 mg DAILY ANDRES Administration Tamsulosin HCl 0.4 mg 10/17/24 21:00 10/18/24 20:47 Tamsulosin Hcl 0.4 Mg Capsule PO 0.4 mg HS ANDRES Administration Radiology Results: ITS Impressions Head CT 10/17/24 10:25 IMPRESSION: No acute intracranial findings. Chest X-Ray 10/17/24 10:38 IMPRESSION: Left basilar atelectasis versus pneumonia with possible effusion. Bilateral interstitial thickening suggestive of pneumonitis versus pulmonary edema. Chest CT 10/18/24 10:28 Impression: Suspected minimal hypoventilatory/atelectatic change versus possibly minimal pulmonary edema change. Labs Labs: Laboratory Results - last 24 hr 10/18/24 10/18/24 10/18/24 11:27 12:26 13:24 WBC RBC Hgb Hct MCV MCH MCHC RDW Plt Count MPV Immature Gran % (Auto) Neut % (Auto) Lymph % (Auto) [place] % (Auto) Eos % (Auto) Baso % (Auto) Lymph # (Auto) [place] # (Auto) Eos # (Auto) Baso # (Auto) Abs Immat Gran (auto) Absolute Neuts (auto) Absolute Nucleated RBC Nucleated RBC % APTT 64.7 H Sodium Potassium Chloride Carbon Dioxide Anion Gap BUN Creatinine Estim Creat Clear Calc Estimated GFR Glucose POC Capillary Glucose 301 H Calcium Magnesium Cancelled Total Bilirubin AST ALT Alkaline Phosphatase Troponin I Total Protein Albumin 10/18/24 10/18/24 10/18/24 14:34 15:32 20:46 WBC RBC Hgb Hct MCV MCH MCHC RDW Plt Count MPV Immature Gran % (Auto) Neut % (Auto) Lymph % (Auto) [place] % (Auto) Eos % (Auto) Baso % (Auto) Lymph # (Auto) [place] # (Auto) Eos # (Auto) Baso # (Auto) Abs Immat Gran (auto) Absolute Neuts (auto) Absolute Nucleated RBC Nucleated RBC % APTT Sodium Potassium Chloride Carbon Dioxide Anion Gap BUN Creatinine Estim Creat Clear Calc Estimated GFR Glucose POC Capillary Glucose 181 H 244 H Calcium Magnesium Total Bilirubin AST ALT Alkaline Phosphatase Troponin I 0.082 H* Total Protein Albumin 10/19/24 10/19/24 10/19/24 04:22 04:24 07:24 WBC 12.6 H RBC 3.53 L Hgb 12.4 L Hct 37.0 L MCV 104.8 H MCH 35.1 H MCHC 33.5 RDW 13.7 Plt Count 243 MPV 10.4 Immature Gran % (Auto) 0.6 H Neut % (Auto) 62.2 Lymph % (Auto) 24.2 [place] % (Auto) 10.3 H Eos % (Auto) 2.1 Baso % (Auto) 0.6 Lymph # (Auto) 3.06 [place] # (Auto) 1.3 H Eos # (Auto) 0.3 Baso # (Auto) 0.1 Abs Immat Gran (auto) 0.08 H Absolute Neuts (auto) 7.9 H Absolute Nucleated RBC 0.000 Nucleated RBC % 0.0 APTT Sodium 135 L Potassium 3.7 Chloride 105 Carbon Dioxide 24 Anion Gap 6 BUN 26 H Creatinine 1.31 H Estim Creat Clear Calc 58 Estimated GFR 55 L Glucose 203 H POC Capillary Glucose 200 H Calcium 9.1 Magnesium 2.0 Total Bilirubin 0.6 AST 24 ALT 28 Alkaline Phosphatase 84 Troponin I 0.058 H* Total Protein 6.0 L Albumin 3.3 L Echo 2. Concentric left ventricular hypertrophy with normal systolic function and grade 1 diastolic noncompliance. 3. Mildly sclerotic aortic valve with good leaflet excursion. 4. Pacemaker lead noted.
[2024-10-19] MEDS: INSULIN ASPART (*BKC) 100 UNITS/ML SUB-Q (12:13)
[2024-10-19 12:18] LABS: Glucose Point of Care 276 mg/dl (65-105)
[2024-10-19] MEDS: hydroCHLOROthiazide 12.5 MG CAPSULE PO (12:30)
--- NOTE | 2024-10-19 13:55 | PM.DS ---
DS: Admitting Diagnosis Discharge Date 10/19/24 Admitting Diagnosis Altered mental status DS: Discharge Diagnosis Discharge Diagnosis (1) Elevated troponin: Code(s): R79.89 - Other specified abnormal findings of blood chemistry Status: Acute (2) CONNIE (acute kidney injury): Code(s): N17.9 - Acute kidney failure, unspecified Status: Acute DS: Summary Hospital Course Hospital Course: This is a 64-year-old male with a significant past medical history of type 2 diabetes mellitus, COPD, tobacco dependence, chronic lower back pain, obstructive sleep apnea, chronic kidney disease stage 3, coronary artery disease, hypertension, hyperlipidemia, diabetic peripheral neuropathy, CAD, vitamin- deficiency, tobacco abuse, marijuana abuse, cocaine abuse who presented to the hospital via EMS for evaluation of altered mental status. Patient was found with altered mental status by his home health nurse and EMS was called.EMS reported that there were drug paraphernalia around his home. patient however denies any substance abuse other than marijuana. He denies any recent sick contacts, fever, chills, nausea, vomiting, diarrhea, abdominal pain, chest pain, shortness a breath. workup in the hospital included a head CT which was negative for any acute intracranial findings. A chest x-ray which showed left basilar atelectasis versus pneumonia with possible effusion, bilateral interstitial thickening suggestive of pneumonitis versus pulmonary edema. initial labs showed a white blood cell count of 18.3, INR 1.0, sodium 132, chloride 92, anion gap 16, creatinine 1.91, EGFR 36, blood glucose ranging 332-379, lactic acid was normal at 1.8, calcium 12.2, magnesium 1.4, albumin was normal at 4.7, troponin 0.123> 0.131, TSH 0.870. UA was obtained which showed 4+ urine protein, 3+ urine glucose, 1+ urine ketone, 3+ urine blood, 3-5 urine RBC, greater than 20 urine cast, 3-4 hyaline cast, mucus present. MRSA was negative. Urine drug screen was positive for cocaine and cannabinoids. Respiratory panel was negative for influenza A and B, RSV, COVID. Blood cultures were obtained and pending. EKG showed sinus tachycardia with occasional supraventricular premature complexes, right bundle branch block with a rate of 109, QTC 434. Patient was given 2L of normal saline, Ativan, Benadryl, Reglan, cefepime, vancomycin while in the ED. Cardiology was consulted for elevated troponin, patient was asymptomatic, chest-pain free, troponin trended down. Echo showed EF 60-65% no wall motion abnormalities with grade 1 diastolic dysfunction. Cardiology recommended continuing aspirin Plavix metoprolol and Lipitor. Will follow-up outpatient. Elevated troponin likely from renal insufficiency Patient was managed for possible pneumonia, was placed on cefepime and leukocytosis trended down remarkably. Discharged on Levaquin for another 5 days. Hypertension blood pressure was elevated on home regimen, hydrochlorothiazide was added. Continue follow-up with PCP. CONNIE, hypercalcemia resolved. Creatinine trended down to 1.1 from 9.91. Continue follow PCP in 3-5 days, continue follow-up with Cardiology as instructed. Time Spent with Patient Time attestation: Total time spent providing and/or coordinating discharge services: DS: Data Data Completed and Pending Labs on day of discharge: Labs from last 24 hours 10/19/24 10/19/24 10/19/24 11:35 07:24 04:24 WBC 12.6 H RBC 3.53 L Hgb 12.4 L Hct 37.0 L MCV 104.8 H MCH 35.1 H MCHC 33.5 RDW 13.7 Plt Count 243 MPV 10.4 Immature Gran % (Auto) 0.6 H Neut % (Auto) 62.2 Lymph % (Auto) 24.2 [place] % (Auto) 10.3 H Eos % (Auto) 2.1 Baso % (Auto) 0.6 Lymph # (Auto) 3.06 [place] # (Auto) 1.3 H Eos # (Auto) 0.3 Baso # (Auto) 0.1 Abs Immat Gran (auto) 0.08 H Absolute Neuts (auto) 7.9 H Absolute Nucleated RBC 0.000 Nucleated RBC % 0.0 Sodium 135 L Potassium 3.7 Chloride 105 Carbon Dioxide 24 Anion Gap 6 BUN 26 H Creatinine 1.31 H Estim Creat Clear Calc 58 Estimated GFR 55 L Glucose 203 H POC Capillary Glucose 276 H 200 H Calcium 9.1 Magnesium 2.0 Total Bilirubin 0.6 AST 24 ALT 28 Alkaline Phosphatase 84 Troponin I Total Protein 6.0 L Albumin 3.3 L 10/19/24 10/18/24 10/18/24 04:22 20:46 15:32 WBC RBC Hgb Hct MCV MCH MCHC RDW Plt Count MPV Immature Gran % (Auto) Neut % (Auto) Lymph % (Auto) [place] % (Auto) Eos % (Auto) Baso % (Auto) Lymph # (Auto) [place] # (Auto) Eos # (Auto) Baso # (Auto) Abs Immat Gran (auto) Absolute Neuts (auto) Absolute Nucleated RBC Nucleated RBC % Sodium Potassium Chloride Carbon Dioxide Anion Gap BUN Creatinine Estim Creat Clear Calc Estimated GFR Glucose POC Capillary Glucose 244 H 181 H Calcium Magnesium Total Bilirubin AST ALT Alkaline Phosphatase Troponin I 0.058 H* Total Protein Albumin 10/18/24 10/18/24 14:34 13:24 WBC RBC Hgb Hct MCV MCH MCHC RDW Plt Count MPV Immature Gran % (Auto) Neut % (Auto) Lymph % (Auto) [place] % (Auto) Eos % (Auto) Baso % (Auto) Lymph # (Auto) [place] # (Auto) Eos # (Auto) Baso # (Auto) Abs Immat Gran (auto) Absolute Neuts (auto) Absolute Nucleated RBC Nucleated RBC % Sodium Potassium Chloride Carbon Dioxide Anion Gap BUN Creatinine Estim Creat Clear Calc Estimated GFR Glucose POC Capillary Glucose Calcium Magnesium Cancelled Total Bilirubin AST ALT Alkaline Phosphatase Troponin I 0.082 H* Total Protein Albumin Preliminary micro results at discharge 10/17/24 12:08 Blood Culture - Preliminary Blood 10/17/24 12:09 Blood Culture - Preliminary Blood Discharge Plan Discharge Attending physician on discharge: Monika Rodriguez Consulting providers: Susana Britt Discharging Clinician: Monika Rodriguez Anticipated Discharge Date/Time: 10/19/24 13:49 Patient Disposition: Home, Self-Care Activity: as tolerated Diet: heart healthy Patient Instructions: Antibiotic Form Patient Language: Kuwaiti Stand Alone Forms: General Discharge Information Follow-up/Referrals: Ai,PHILIP Perea [Primary Care Provider] - (F/u with PCP in 3-5 days ) Susana Britt APN-C [Advanced Practice Nurse] - (F/u with Cardiology as instructed ) Discharge Medications: New hydrochlorothiazide 12.5 mg Capsule 12.5 mg PO QAM 30 Days Qty: 30 1RF levofloxacin 750 mg tablet 750 mg PO DAILY 5 Days Qty: 5 0RF Continued oxybutynin chloride 15 mg tablet extended release 24hr 15 mg PO DAILY hydrocodone-acetaminophen 10-325 mg tablet 1 tablet PO Q8H Rx Instructions: pain scale 4 to 6 famotidine 20 mg tablet 20 mg PO BID tamsulosin 0.4 mg capsule 0.4 mg PO HS (DME) Dexcom G7 Sensor Device MISCELLANEOUS (DME) Dexcom G7 Sheltered Workshop Executive Director Misc MISCELLANEOUS Jardiance 10 mg tablet 10 mg PO DAILY gabapentin 600 mg tablet 600 mg PO TID Rx Instructions: pt. takes one and a half tab (900mg) in morning and noon and 2 tabs 1200 mg in the evenings atorvastatin 80 mg tablet 80 mg PO HS clopidogrel 75 mg tablet 75 mg PO DAILY ergocalciferol (vitamin D2) 1,250 mcg (50,000 unit) capsule 1,250 mcg PO WEEKLY Rx Instructions: pT TAKES ON thursday MORNING amitriptyline 100 mg tablet 100 mg PO HS levetiracetam 250 mg Tablet 250 mg PO TID folic acid 1 mg Tablet 1 mg PO DAILY aspirin 81 mg tablet,chewable 81 mg PO DAILY sildenafil 100 mg tablet 100 mg PO Q24H PRN (Reason: as needed) metoprolol succinate 25 mg tablet extended release 24 hr 25 mg PO DAILY (DME) pen needle, diabetic [TRUEplus Pen Needle] 31 gauge x 5/16 needle MISCELLANEOUS hydroxyurea 500 mg capsule 500 mg PO DAILY duloxetine 30 mg capsule,delayed release(DR/EC) 30 mg PO DAILY Trulicity 3 mg/0.5 mL pen injector 3 mg SUBCUT WEEKLY Date of admission: 10/18/24 09:05 Primary Care Provider: AiDina Admitting Provider: Maria G Fall Attending physician on admission: Maria G Fall Condition: Guarded Prognosis
[2024-10-21 02:37] LABS: Calcitonin 35 pg/mL (< OR = 10)
[2024-10-25 00:49] LABS: Parathyroid Hormone Related Pr 12 pg/mL (11-20)
== END 2024-10-19 15:02 | disposition home or self-care (01) | DRG 469 ==
LOC: ANHED 11:55 → ANHIMU 12:29
PROVIDERS: Emergency Medicine; Nurse Practitioner; Nurse Practitioner Acute Care; Admitting Provider Family Medicine; Emergency Provider Registered Nurse; PCP Physician Assistant; Visit Provider Internal Medicine
DX: N17.9 Acute kidney failure, unspecified (principal); J18.9 Pneumonia, unspecified organism; R65.10 Systemic inflammatory response syndrome (SIRS) of non-infectious origin without acute organ dysfunction; N39.0 Urinary tract infection, site not specified; I65.29 Occlusion and stenosis of unspecified carotid artery; I12.9 Hypertensive chronic kidney disease with stage 1 through stage 4 chronic kidney disease, or unspecified chronic kidney disease; N18.30 Chronic kidney disease, stage 3 unspecified; I25.10 Atherosclerotic heart disease of native coronary artery without angina pectoris; J44.9 Chronic obstructive pulmonary disease, unspecified; E11.22 Type 2 diabetes mellitus with diabetic chronic kidney disease; E11.42 Type 2 diabetes mellitus with diabetic polyneuropathy; E78.5 Hyperlipidemia, unspecified; E83.52 Hypercalcemia; E55.9 Vitamin D deficiency, unspecified; R79.89 Other specified abnormal findings of blood chemistry; R41.82 Altered mental status, unspecified; M54.50 Low back pain, unspecified; G89.29 Other chronic pain; G47.33 Obstructive sleep apnea (adult) (pediatric); F17.210 Nicotine dependence, cigarettes, uncomplicated; F14.10 Cocaine abuse, uncomplicated; F12.10 Cannabis abuse, uncomplicated; Z20.822 Contact with and (suspected) exposure to COVID-19; I69.320 Aphasia following cerebral infarction; I69.354 Hemiplegia and hemiparesis following cerebral infarction affecting left non-dominant side; Z79.82 Long term (current) use of aspirin; Z95.0 Presence of cardiac pacemaker; Z79.02 Long term (current) use of antithrombotics/antiplatelets
CPT/HCPCS: 36415; 36600; 70450; 71046; 71250; 80053; 80307; 81001; 82077; 82308; 82375; 82607; 82728; 82746; 82805; 82948; 83050; 83519; 83540; 83550; 83605; 83690; 83735; 84443; 84484; 85018; 85025; 85610; 85730; 86140; 87040; 87637; 87641; 93005; 93306; 96365; 96366; 96367; 96375; 99285; A9270; G0378; G0379; J0692; J1200; J1644; J1815; J2060; J2765; J3370; J3475; J7030; Q9957

== ENCOUNTER 2024-12-29 09:33 | Emergency (ER) | payer OTHER, SELFPAY ==
[2024-12-29] VITALS (14 sets, daily range): BP systolic 134–195; BP diastolic 75–165; PULSE 92–113; RESP 10–20; TEMP 36.6; O2SAT 95–100
--- NOTE | ~2024-12-29 | XR_ITS ---
EXAMINATION: XR chest 1V portable DATE: 12/29/2024 10:39 INDICATION: Weakness TECHNIQUE: frontal view of the chest was obtained. COMPARISON: Chest radiograph dated 10/17/[address] dated 10/18/2024 FINDINGS: The lungs remain clear with no focal airspace opacities, pulmonary edema, pleural effusion or pneumot horax. Heart size is normal with prominent left paracardial fat pad extending to the lateral left low er chest wall and obscuring portions of the left heart border. Dual lead pacemaker seen with leads pr ojecting over the expected locations of the right atrium and right ventricle. IMPRESSION: 1. No acute cardiopulmonary disease. Reviewed, dictated and finalized at location A.
--- OUTSIDE RECORDS SUMMARY | 2024-12-29 09:48 | XMS_ITS | Encounter Summary ---
Author Organization [facility] Address [address] [place] [address] Phone Care Team Providers Care Switchboard Wire Worker Helper Name Role Phone Dina Cloud PAC Primary Care Provider + [phone] Lefty Sousa MD Unavailable Encounter Details Date Type Department Care Team (Late st Contact Info) Description 07/04/2021 Telephone [facility] [address] [place] [address] Lefty Sousa MD [address] [facility] [address] [address] Social History Tobacco Use Types Packs/Day Years Used Date Smoking Tobacco: Every Day Cigarettes 1 50.4 Started: 08/03/1974 Smokeless Tobacco: Never Alcohol Use Standard Drinks/Week Comments No 0 (1 standard drink = 0.6 oz pur e alcohol) PHQ-2 Answer Date Recorded Total Score - Questions 1-9 0 04/04 Sex and Gender Information Value Date Recorded Sex Assigned at Not on file Legal 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 LATION APPLICATOR documented in this encounter Plan of Treatment Upcoming Encounters Date Type Department Care Team (Late st Contact Info) Description 03/17/2025 10:45 AM CDT Office Visit [facility] [address] [place] [phone] Lefty Sousa MD [address] [facility] [address] [address] documented as of this encounter Visit Diagnoses Not on filedocumented in this encounter Additional Health Concerns Assessment Noted Time PHQ-9 Depression Total Score: 0 04/26/20 9:02 AM CDT documented as of this encounter Care Teams Switchboard Wire Worker Helper Relationship Specialty Start Date End Date Dina Cloud PAC [address] [place] [address] PCP - General Physician Pitch Gatherer 05/25/20 Lefty Sousa MD [address] [place] [phone] Consulting Physician Hematology and Oncology 01/03/21 documented as of this encounter
--- OUTSIDE RECORDS SUMMARY | 2024-12-29 09:48 | XMS_ITS | Encounter Summary ---
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 Gender Identity Not on file Sexual Orientation Not on file documented as of this encounter Miscellaneous Notes * Telephone Encounter - Cary Chapman - 07/15/2021 3:54 PM CST PT HAD AN APPT TODAY, NO SHOW, CALLED PT, LEFT V/M, LETTER SENT ER SELECTOR documented in this encounter Plan of Treatment Upcoming Encounters Date Type Department Care Team (Late st Contact Info) Description 03/17/2025 10:45 AM CDT Office Visit [facility] [address] [place] [phone] Lefty Sousa MD 1052 [facility] [address] [address] documented as of this encounter Visit Diagnoses Not on filedocumented in this encounter Additional Health Concerns Assessment Noted Time PHQ-9 Depression Total Score: 0 04/26/20 9:02 AM CDT documented as of this encounter Care Teams Eyeglass Lens Grinder Relationship Specialty Start Date End Date Dina Cloud PAC [address] [place] [address] PCP - General Physician Ferryboat Operator Cable 05/25/20 Lefty Sousa MD [address] [place] [phone] Consulting Physician Hematology and Oncology 01/03/21 documented as of this encounter
--- OUTSIDE RECORDS SUMMARY | 2024-12-29 09:49 | XMS_ITS | Clinical Summary ---
Author Organization [facility] Address [address] [place] [address] Phone Care Team Providers Care Dress Finisher Name Role Phone AiDina rosas A PAC Primary Care Provider [phone] Lefty Sousa MD Unavailable Allergies Active Allergy Reactions Criticality Noted Date [...] daily. 3 7 Active ergocalciferol (VITAMIN D) 60507 UNIT Capsule TK 1 C PO Q [...] III SHORT PEN 31G X 8 MM [facility] USE TO INJECT INSULIN ONCE DAILY 1 [...] Continuous Blood Gluc Sensor (Dexcom G7 Sensor) [facility] 3 Active buPROPion, Smoking Deter, (ZYBAN) 150 MG TABLET SR 12 HR Take 150 mg by mouth 2 times daily. Active albuterol 108 (90 Base) MCG/ACT Aerosol Solution INHALE 2 PUFFS BY MOUTH EVERY 4 HOURS NEEDED Active Trulicity 3 MG/0.5ML Solution Pen-injector ADMINISTER 3 MG UNDER THE SKIN EVERY WEEK Active gabapentin (NEURONTIN) 600 MG Tablet Patient [...] MOUTH DAILY 90 Tablet 1 4 Active hydroxyurea (HYDREA) 500 MG CapsuleIndicati ons:Myeloprolif erative disease (HCC) TAKE 1 CAPSULE BY MOUTH DAILY 30 Capsule 5 5 Active DULoxetine (CYMBALTA) [address] Particles Take 30 mg by mouth daily. 5 Active hydroCHLOROthia zide (MICROZIDE) 12.5 MG Capsule Take 12.5 mg by mouth. 5 Active Active Problems Problem Noted Date Diagnosed [...] Encounters Date Type Department Care Team Description 12/16/2024 11:30 AM CDT Lab [facility] [address] [address] Lab[facility] Myeloproliferative disease (HCC) 12/16/2024 10:45 AM CDT Office Visit [facility] [address] [address] Marianela Chan, PARACHUTE ACCESSORIES ATTACHER, FENCE MAKING MACHINE OPERATOR Myeloproliferative disease (HCC) (Primary Dx); Iron deficiency anemia, unspecified iron deficiency anemia type; Anemia, unspecified type 12/16/2024 Travel 11/07/2024 Refill [facility] [address] [address] Lefty Sousa MD Medication Refill from Last 3 Months Immunizations Immunization Administration Dates Next Due Covid-19, Mrna, Lnp-s, Pf, Lam-sucrose, 30 Mcg/0.3 Ml (Pfizer) 05/13/2023 Influenza Vaccine, Quadrivalent, PF 05/03,06/17/2022,05/17/2021,04/29,05/20/2017,09/23/2016,08/21/2015 Influenza Vaccine,unspecifie d Formulation 06/02/2022 Influenza, Injectable, Mdck, Preservative Free 04/25/2024 Influenza, Injectable, Quadrivalent 06/14/2019 Influenza, Seasonal, Injecta ble, Undefined 05/17/2019,04/29/2018 Pneumococcal Vaccine Adult - 23 Valent 7,08/21/2015,01/23/2015 Pneumococcal conjugate PCV20 , polysaccharide [id number] conjugate, adjuvant, PF 06/16/2023 RSV, Recombinant, Protein Horton bunit Rsvpref, Adjuvant Recon (Arexvy) 07/17/2023 TDAP Vaccine 02/09/2017 Zoster Vaccine Recombinant 01/02/2022,11/03/2021 Family History Medical History Relation Name Comments Diabetes Father Stroke Mother Relation Name Status Comments Father Mother Social History Tobacco Use Types Packs/Day Years Used Date Smoking Tobacco: Every Day Cigarettes 1 50.4 Started: 08/03/1974 Smokeless Tobacco: Never Tobacco Cessation:Ready to Q uit: Not Asked; Counseling Given: Not Answered Alcohol Use Standard Drinks/Week Comments No 0 (1 standard drink = 0.6 oz pur e alcohol) PHQ-2 Answer Date Recorded Total Score - Questions 1-9 0 02/01 Sex and Gender Information Value Date Recorded Sex Assigned at Not on file 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 Gender Identity Not on file Sexual Orientation Not on file Last Filed Vital Signs Vital Sign Reading Time Taken Comments Blood Pressure 138/86 12/16/2024 11:04 AM CDT Pulse 100 12/16/2024 11:04 AM CDT Temperature 36.9 C (98.4 F) 12/16/2024 11:04 AM CDT Respiratory Rate 18 12/16/2024 11:0 4 AM CDT Oxygen Saturation 98% 12/16/2024 11: 04 AM CDT Inhaled Oxygen Concentration - - Weight 100.1 kg (220 lb 11.2 oz) 2024 11:04 AM CDT Height 172.7 cm (5' 8) 12/16/2024 11:0 4 AM CDT Body Mass Index 33.56 12/16/2024 11:04 AM CDT Plan of Treatment Upcoming Encounters Date Type Department Care Team (Late st Contact Info) Description 03/17/2025 10:45 AM CDT Office [facility] [address] [address] Lefty Sousa MD [address] [place] [address] Health Maintenance Due Date Last Done Comments Diabetes: Eye Exam 1961 Diabetes: Foot Exam 1961 Hepatitis C Virus (HCV) Screening 1961 Cologuard 2011 Immunochemical Fecal Occult Blood 2011 PSA Discussion 01/06/2016 Lung Cancer Screening 06/18/2024 06/18/2023 , 06/18/2023, 01/04/2021, Additional history exists SARS-COV-2 Immunization (7 - Pfizer risk ) 10/23/2024 04/25/2024, 05/27/2023, 05/13/2023, Additional history exists Diabetes: Hemoglobin A1c 03/01/2025 025, 04/21/2024, 03/08/2024, Additional history exists Diabetes: Nephropathy Screening 12/16/2025 12/16/2024, 09/09/2024, 06/10/2024, Additional history exists Td Immunization Every 10 Years (Adults With 1 Tdap) 02/09/2027 02/09/2017 Colonoscopy 11/28/2031 11/27/2021, 10/05/2018 Colorectal Cancer Screening 11/28/2031 11/27/2021, 10/05/2018 DTaP/Tdap/Td Immunization Discontinued 02/09/2017 Zoster Immunization Completed 01/02/2022, 2 Pneumococcal Immunization (50+ years) Completed 06/16/2023, 02/09/2017, 08/21/2015, Additional history exists Pneumococcal Immunization Combined Discontinued 06/16/2023, 02/09/2017, 08/21/2015, Additional history exists Respiratory Syncytial Virus (RSV) Immunization (Adult) Completed 07/17/2023 Influenza Immunization Completed 4, 05/14/2023, 06/17/2022, Additional history exists Hepatitis B Immunization Aged Out No longer eligible based on patient's age to complete this topic Human Papillomavirus (HPV) Immunization Aged Out No longer eligible based on patient's age to complete this topic Meningococcal Immunization (ACWY) Aged Out No longer eligible based on patient's age to complete this topic Rotavirus Immunization Aged Out No lo nger eligible based on patient's age to complete this topic Procedures Procedure Name Priority Date/Time Associated Diagnosis Comments CMP (COMPREHENSIVE METABOLIC PANEL) Routine 12/16/2024 11:30 AM CDT Myeloproliferative disease (HCC) COMPLETE BLOOD COUNT (CBC) WITH DIFF Routine 12/16/2024 11:30 AM CDT Myeloproliferative disease (HCC) LACTATE DEHYDROGENASE (LD) Routine 12/16/2024 11:30 AM CDT Myeloproliferative disease (HCC) CT CHEST W/O CONTRAST Routine 01/04/2021 10:14 AM CDT Lung nodule Leukocytosis, unspecified type Thrombocytosis (HCC) Myeloproliferative disease (HCC) Anemia of unknown etiology from Last 3 Months or Most Recently Relevant to Health Maintenance Results * (ABNORMAL) LACTATE DEHYDROGENASE (LD) (12/16/2024 11:30 AM CDT) LDH 139(L) 140 - 271 U/L [facility] Blood 12/16/2024 11:[address] [facility] - 12/16/2024 12:26 PM CDT Release to patient->Immediate Marianela Chan APRN, ROBIN CHEMISTRY ORDERABLES Final Result [facility] [place] [address], * (ABNORMAL) CMP (COMPREHENSIVE METABOLIC PANEL) (12/16/2024 11:30 AM CDT) Glucose 196(H) 70 - 105 mg/dL [facility] Blood Urea Nitrogen 30(H) 7 - 25 mg/dL [facility] Creatinine 1.6(H) 0.7 - 1.3 mg/dL [facility] Sodium 138 136 - 145 mEq/L [facility] Potassium 4.4 3.5 - 5.1 mEq/L [facility] Chloride 108(H) 98 - 107 mEq/L [facility] Bicarbonate 26 21 - 31 mEq/L [facility] Total Bilirubin 0.3 0.3 - 1.0 mg/dL [facility] Alk. Phosphatase 80 34 - 104 U/L [facility] Aspartate Aminotransferase 12(L) 13 - 39 U/L [facility] Alanine Aminotransferase 17 7 - 52 U/L [facility] Total Protein 6.9 6.4 - 8.9 g/dL [facility] Albumin 4.4 3.5 - 5.7 g/dL [facility] Calcium 11.4(H) 8.6 - 10.3 mg/dL [facility] Anion Gap 8.4 7.0 - 15.0 mEq/L [facility] Globulin 2.5 2.0 - 3.5 g/dL [facility] EGFR 48(L) >60 ml/min/1. 73m2 [facility] Comment: This eGFR is calculated using 2020 CKD-EPI Creatinine equation without race modifier based on the NKF-ASN task force recommendations Equation: pGEB=197*min(SCr/k,1)a*max(SCr/k,1)-1.200*0.9938Age*1.012 (if female), where SCr is serum creatinine, k is 0.7 for females and 0.9 for males, and a is -0.241 for females and -0.302 for males Blood 12/16/2024 11:3 0 AM CDT Narrative [facility] - 12/16/2024 12:26 PM CDT Release to patient->Immediate IS THE PATIENT REQUIRED TO BE FASTING FOR 8 HOURS?->No us Marianela Chan PARACHUTE ACCESSORIES ATTACHER, FENCE MAKING MACHINE OPERATOR CHEMISTRY ORDERABLES Final Result [facility] [place] [address], * (ABNORMAL) COMPLETE BLOOD COUNT (CBC) WITH DIFF (12/16/2024 11:30 AM CDT) WBC 12.5(H) 4.0 - 10.0 10*3/uL [facility] HGB 13.3(L) 13.7 - 17.5 g/dL [facility] HCT 40.7 40.1 - 51.0 % [facility] PLT 341 163 - 369 10*3/uL [facility] MPV 10.0 9.4 - 12.4 fL [facility] RBC 3.89(L) 4.63 - 6.08 10*6/uL [facility] MCV 105(H) 79 - 95 fL [facility] MCH 34.2(H) 25.6 - 32.2 pg [facility] MCHC 32.7 32.2 - 36.5 g/dL [facility] RDW 13.7 11.6 - 14.4 % [facility] Absolute Neutrophil Count 6,766 cells/uL [facility] ER [facility] Absolute Seg Count 6,766(H) 1,440 - 6,600 cells/uL [facility] Absolute Lymph Count 4,135(H) 760 - 4,000 cells/uL [facility] Absolute [place] Count 1,002 160 - 1,200 cells/uL [facility] Absolute Eos Count 501(H) 0 - 300 cells/uL [facility] Absolute Baso Count 125(H) 0 - 100 cells/uL [facility] Segmented Neutrophils 54 36 - 66 % [facility] Lymphocytes 31 19 - 40 % [facility] Monocytes 8 4 - 12 % [facility]ER [place] [facility] Eosinophils 4(H) 0 - 3 % CANCER C [facility]TER [facility] Basophils 1 0 - 1 % [facility] [place] [facility] Atypical Lymphs 2 0 - 2 % CANC ER [facility] WBC Estimate High [facility] Platelet Estimate Normal [facility] RBC Morphology Abnormal CANCE R [facility] Macrocytosis 1+ [facility] Blood 12/16/2024 11:3 0 AM CDT Narrative [facility] - 12/16/2024 1:30 PM CDT Release to patient->Immediate us Marianela Roseasley PARACHUTE ACCESSORIES ATTACHER, FENCE MAKING MACHINE OPERATOR HEMATOLOGY ORDERABLES Final Result [facility] [place] [address], * CT CHEST W/O CONTRAST (01/04/2021 10:14 [...] of Signature: 01/04/2021 11:09:34 Lefty Sousa MD IM CT ORDERABLES Final Resu lt from Last 3 Months or Most Recently Relevant to Health Maintenance Insurance MEDICAID [employer] Care Teams Dress Finisher Relationship Specialty Start Date End Date Dina Cloud PAC [address] [place] [address] PCP - General Physician Ore Bridge Operator 05/25/20 Lefty Sousa MD [address] [place] [phone] Consulting Physician Hematology and Oncology 01/03/21
--- OUTSIDE RECORDS SUMMARY | 2024-12-29 09:49 | XMS_ITS | Encounter Summary ---
Author Organization [facility] Address [address] [place] [address] Phone Care Team Providers Care General Counsel Name Role Phone Dina Cloud PAC Primary Care Provider + [phone] Lefty Sousa MD Unavailable [phone] Reason for Visit * Reason Comments Medication Refill Encounter Details Date Type Department Care Team (Late st Contact Info) Description 12/20/2023 Refill [facility] [place] [facility] [address] [place] [address] Lefty Sousa MD [address] [address] Medication Refill Social History Tobacco [...] on file Legal 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 Gender Identity Not on file Sexual Orientation [...] [facility] [address] [place] [address] Lefty Sousa MD [address] [place] [address] [address] documented as of this encounter Visit Diagnoses Diagnosis Anemia, unspecified type documented in this encounter Additional Health Concerns Assessment Noted Time PHQ-9 Depression Total Score: 0 04/26/20 9:02 AM CDT documented as of this encounter Care Teams General Counsel Relationship Specialty Start Date End Date Dina Cloud PAC [address] [place] [phone] PCP - General Physician Grapple Yarder Operator 05/25/20 Lefty Sousa MD [address] [place] [phone] Consulting Physician Hematology and Oncology 01/03/21 documented as of this encounter
--- OUTSIDE RECORDS SUMMARY | 2024-12-29 09:49 | XMS_ITS | Encounter Summary ---
Author Organization [facility] Address [address] [place] [address] Phone Care Team Providers Care Engraver Copperplate Name Role Phone Provider, Unknown Primary Care Provider Unavaila Dina Yepez Primary Care Provider + [phone] Lefty Sousa MD Unavailable [phone] Encounter Details Date Type Department Care Team (Late st Contact Info) Description 02/09/2020 Telephone [facility] [place] [address] [place] [address] Lefty Sousa MD [address] [address] Social History Tobacco Use Types [...] on file 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 Gender Identity Not on file Sexual Orientation [...] Visit [facility] [place] [address] [place] [address] Lefty Sousa MD [address] [place], [place] [phone] documented as of this encounter Visit Diagnoses Not on filedocumented in this encounter Additional Health Concerns Assessment Noted Time PHQ-9 Depression Total Score: 0 11/03/19 8:14 AM CDT documented as of this encounter Care Teams Engraver Copperplate Relationship Specialty Start Date End Date Provider, Unknown UNKNOWN PCP - General Primary Care 07/14/18 05/24/20 Dina Cloud PAC [address] [place] [address] PCP - General Physician Web Manager 05/25/20 Lefty Sousa MD [address] [place] [phone] Consulting Physician Hematology and Oncology 01/03/21 documented as of this encounter
--- OUTSIDE RECORDS SUMMARY | 2024-12-29 09:49 | XMS_ITS | Encounter Summary ---
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 MANAGER Gender Identity Not on file Sexual [...] Visit [facility] [place] [address] [place] [phone] Lefty Sousa MD [facility] [address] [address] documented as of this encounter Visit Diagnoses Not on filedocumented in this encounter Additional Health Concerns Assessment Noted Time PHQ-9 Depression Total Score: 0 04/26/20 9:02 AM CDT documented as of this encounter Care Teams Art Psychotherapist Relationship Specialty Start Date End Date Dina Cloud PAC [address] [place] [address] PCP - General Physician Special Weapons Unit Officer 05/25/20 Lefty Sousa MD [address] [place] [phone] Consulting Physician Hematology and Oncology 01/03/21 documented as of this encounter
--- OUTSIDE RECORDS SUMMARY | 2024-12-29 09:49 | XMS_ITS | Encounter Summary ---
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 ET INSPECTOR documented in this encounter Plan of Treatment Upcoming Encounters Date Type Department Care Team (Late st Contact Info) Description 03/17/2025 10:45 AM CDT Office Visit [facility] [place] [address] [place] [phone] Lefty Sousa MD [address] [address] documented as of this encounter Visit Diagnoses Not on filedocumented in this encounter Additional Health Concerns Assessment Noted Time PHQ-9 Depression Total Score: 0 05/17/20 20 8:28 AM CDT documented as of this encounter Care Teams Natural Remedy Consultant Relationship Specialty Start Date End Date Dina Cloud PAC [facility] [place] [address] PCP - General Physician Sales Service Assistant 05/25/20 Lefty Sousa MD [address] [place] [phone] Consulting Physician Hematology and Oncology 01/03/21 documented as of this encounter
--- OUTSIDE RECORDS SUMMARY | 2024-12-29 09:49 | XMS_ITS | Encounter Summary ---
Author Organization [facility] Address [address] [place] [address] Phone Care Team Providers Care Experimental Box Tester Name Role Phone Dina Cloud PAC Primary Care Provider + [phone] Lefty Sousa MD Unavailable Reason for Visit * Reason Comments Medication Refill Encounter Details Date Type Department Care Team (Late st Contact Info) Description 07/21/2023 Refill [facility] [place] [address] [place] [address] Lefty Sousa MD [address] [address] Medication Refill Social History Tobacco [...] on file 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 Gender Identity Not on file Sexual Orientation Not on file documented as of this encounter Miscellaneous Notes * Telephone Encounter - Norma Bond RN - 07/21/2023 7:53 AM 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 Please fill if appropriate CTURES ENGINEER documented in this encounter Plan of Treatment Upcoming Encounters Date Type Department Care Team (Late st Contact Info) Description 03/17/2025 10:45 AM CDT Office Visit [facility] [place] [address] [place] [address] Lefty Sousa MD [address] [place] [address] [address] documented as of this encounter Visit Diagnoses Diagnosis Anemia, unspecified type documented in this encounter Additional Health Concerns Assessment Noted Time PHQ-9 Depression Total Score: 0 04/26/20 9:02 AM CDT documented as of this encounter Care Teams Experimental Box Tester Relationship Specialty Start Date End Date Dina Cloud PAC [address] [place] [address] PCP - General Physician Clip Loading Machine Adjuster 05/25/20 Lefty Sousa MD [address] [place] [phone] Consulting Physician Hematology and Oncology 01/03/21 documented as of this encounter
--- OUTSIDE RECORDS SUMMARY | 2024-12-29 09:49 | XMS_ITS | Encounter Summary ---
Author Organization [facility] Address [address] [place] [address] Phone Care Team Providers Care Ribbon Lapper Tender Name Role Phone Provider, Unknown Primary Care Provider Unavaila Dina Yepez Primary Care Provider [phone] Lefty Sousa MD Unavailable [phone] Encounter Details Date Type Department Care Team (Late st Contact Info) Description 03/08/2020 Telephone [facility] [place] [address] [place] [address] Lefty Sousa MD [address] [address] Social History Tobacco Use Types [...] on file 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 Gender Identity Not on file Sexual Orientation [...] Visit [facility] [place] [address] [place] [address] Lefty Sousa MD [address] [place] [address] [phone] documented as of this encounter Visit Diagnoses Not on filedocumented in this encounter Additional Health Concerns Assessment Noted Time PHQ-9 Depression Total Score: 0 11/03/19 8:14 AM CDT documented as of this encounter Care Teams Ribbon Lapper Tender Relationship Specialty Start Date End Date Provider, Unknown UNKNOWN PCP - General Primary Care 07/14/18 05/24/20 Dina Cloud PAC [address] [place] [id number] PCP - General Physician Marketing Content Manager 05/25/20 Lefty Sousa MD [address] [place] [phone] Consulting Physician Hematology and Oncology 01/03/21 documented as of this encounter
--- OUTSIDE RECORDS SUMMARY | 2024-12-29 09:49 | XMS_ITS | Encounter Summary ---
Author Organization [facility] Address [address] [place] [address] Phone Care Team Providers Care Paper Winder Name Role Phone Dina Cloud PAC Primary Care Provider [phone] Lefty Sousa MD Unavailable [phone] Encounter Details Date Type Department Care Team (Late st Contact Info) Description 09/17/2020 Telephone [facility] [address] [place] [address] Lefty Sousa MD [address] [facility] [place] [address] [address] Social History Tobacco Use Types [...] on file Legal Sex Male 11:32 AM OUTSIDE SALES ADVERTISING EXECUTIVE Gender Identity Not on file Sexual Orientation Not on file documented as of this encounter Miscellaneous Notes * Telephone Encounter - Ketty Lopez - 09/17/2020 9:20 AM CST Called pt to reschedule due to weather-pt states he will have his after school program assistant call back to reschedule IDE SALES ADVERTISING EXECUTIVE documented in this encounter Plan of Treatment Upcoming Encounters Date Type Department Care Team (Late st Contact Info) Description 03/17/2025 10:45 AM CDT Office Visit [facility] [address] [place] [phone] Lefty Sousa MD [address] [facility] [address] [place] [address] documented as of this encounter Visit Diagnoses Not on filedocumented in this encounter Additional Health Concerns Assessment Noted Time PHQ-9 Depression Total Score: 0 05/17/20 8:28 AM CDT documented as of this encounter Care Teams Paper Winder Relationship Specialty Start Date End Date Dina Cloud PAC [address] [place] [address] PCP - General Physician Clay Mixer 05/25/20 Lefty Sousa MD [address] [place] [phone] Consulting Physician Hematology and Oncology 01/03/21 documented as of this encounter
[2024-12-29 09:55] LABS: Basophils Percent Auto 0.3 % (0.2-1.2); Eosinophils Absolute Auto 0.1 K/mm3 (0-0.3); Eosinophils Percent Auto 0.7 % (0-4.4); Hematocrit 43.5 % (42.0-52.0); Hemoglobin 14.4 g/dL (14.0-18.0); Immature Granulocyte Absolute 0.08 K/mm3 (0.00-0.031); Immature Granulocyte Percent A 0.6 % (0-0.5); Lymphocytes Absolute Auto 2.29 K/mm3 (0.9-3.2); Lymphocytes Percent Auto 15.8 % (18.3-44.2); Mean Corpuscular HGB Conc 33.1 g/dl (32-36); Mean Corpuscular Hemoglobin 33.9 pg (26-34); Mean Corpuscular Volume 102.4 fl (80-100); Mean Platelet Volume 9.9 fl (7.4-10.4); Monocytes Absolute Auto 0.7 K/mm3 (0.1-0.6); Monocytes Percent Auto 4.7 % (2.6-8.5); Neutrophils Absolute Auto 11.3 K/mm3 (1.3-6.7); Neutrophils Percent Auto 77.9 % (45.5-73.1); Platelet Count Result 315 k/mm3 (150-375); Red Blood Count 4.25 M/mm3 (4.6-6.20); Red Cell Distribution Width 14.1 % (11.5-14.5); White Blood Count 14.5 K/mm3 (4.5-10.0)
[2024-12-29 10:04] LABS: Alanine Aminotransferase 34 U/L (6-50); Albumin Level 4.3 g/dL (3.5-5.1); Alkaline Phosphatase 110 U/L (38-126); Anion Gap 13 mmol/L (4-12); Aspartate Amino Transferase 33 U/L (17-59); Bilirubin,Total 0.7 mg/dL (0.2-1.3); Blood Urea Nitrogen 22 mg/dL (9-20); Calcium 11.1 mg/dL (8.4-10.2); Carbon Dioxide 18 mmol/L (22-30); Chloride 106 mmol/L (98-107); Estimated Glomerular Filt Rate 55; Glucose 340 mg/dL (65-110); Lipase 178 U/L (23-300); Potassium 3.8 mmol/L (3.4-5.0); Sodium 137 mmol/L (137-145)
--- NOTE | 2024-12-29 10:07 | ECG_ITS ---
Test Date: 2024-12-29 11:54:53 Measurements Intervals [place] Rate: 97 P: -54 OK: 176 QRS: -86 QRSD: 168 T: 0 QT: 393 QTc: 501 Interpretive Statements ECTOPIC ATRIAL RHYTHM RIGHT BUNDLE BRANCH BLOCK [120+ ms QRS DURATION, UPRIGHT V1, 40+ ms S IN I/aVL/V4/V5/V6] LEFT VENTRICULAR HYPERTROPHY AND ST-T CHANGE [VOLTAGE CRITERIA PLUS ST/T ABNORMALITY] ANTERIOR MYOCARDIAL INFARCTION , AGE INDETERMINATE INFERIOR MYOCARDIAL INFARCTION , AGE INDETERMINATE Compared to ECG 10/18/2024 13:03:15 NO SIGNIFICANT CHANGES Electronically Signed On 12-30-2024 11:04:05 CDT by Jadon Baxter M.D.
[2024-12-29 10:30] LABS: Magnesium 1.5 mg/dL (1.6-2.3)
[2024-12-29] MEDS: ONDANSETRON INJ 4 MG/2 ML VIAL IV PUSH (10:31)
[2024-12-29] MEDS: SODIUM CHLORIDE 0.9% IV 1,000 ML 999 ML IV CONT (10:31)
[2024-12-29 10:42] LABS: NT Pro B Type Natriuretic Pept 3230 pg/mL (19.9-100); Troponin I 0.044 ng/mL (0.000-0.034)
[2024-12-29 11:00] LABS: Procalcitonin 0.1 ng/mL
[2024-12-29] MEDS: MAGNESIUM SULF 2 GM/WATER 50ML 2 GM/50 ML BAG IVPB (11:11)
[2024-12-29 11:14] LABS: Influenza A QL RT-PCR Negative (Negative); Influenza B QL RT-PCR Negative (Negative); RSV RNA, RT-PCR Negative (Negative); SARS-CoV-2 RNA PCR Negative (Negative)
[2024-12-29 11:33] LABS: Add Urine Microscopic? YES; Appearance Urine Clear (Clear); Bacteria Urine None Seen /hpf; Bilirubin Urine Negative (Negative); Blood Urine 2+ (Negative); Color Urine Yellow (Yellow); Glucose Urine UA 3+ mg/dL (Negative); Hyaline Casts Urine Present /lpf; Ketones Urine 1+ mg/dL (Negative); Leukocyte Esterase Ur Negative LEU/UL (Negative); Need Manual Microscopic Reviewed; Nitrate Urine Negative (Negative); Protein Urine 4+ mg/dL (Negative); Specific Grav Ur 1.035 (1.001-1.035); Squamous Epithelial Cell Urine None Seen /hpf (Few); Urobilinogen Urine 0.2 mg/dL (<2.0); WBC Urine 0-5 /hpf (0-3); pH Urine 5.5 (5.0-9.0)
--- NOTE | 2024-12-29 11:49 | ED_ITS ---
HPI - General Adult General Chief complaint: Nausea/Vomiting/Diarrhea Stated complaint: n/v Time Seen by Provider: 12/29/24 09:41 History of Present Illness HPI narrative: Patient is a 64-year-old gentleman presents emergency department with chief complaint of not feeling well. Patient reports he has had some nausea reports that he has been feeling extremely weak and run down the patient described his symptoms as I feel like shit when asked what this feeling was the patient states I do not know how to describe it I just feel that way patient denies chest pain denies shortness of breath denied abdominal pain denies vomiting did report that he felt nauseated and denies any diarrhea patient denied urinary symptoms the patient denied fever Related Data Home Medications ?Medication ?Instructions ?Recorded ?Confirmed ?Last Taken ?Type amitriptyline 100 mg tablet 100 mg PO HS 03/12/20 12/08/24 Unknown History atorvastatin 80 mg tablet 80 mg PO HS 03/12/20 12/08/24 Unknown History clopidogrel 75 mg tablet 75 mg PO DAILY 03/12/20 12/08/24 05/28/20 07:30 History ergocalciferol (vitamin D2) 1,250 1,250 mcg PO WEEKLY 03/12/20 12/08/24 09/15/24 History mcg (50,000 unit) capsule folic acid 1 mg tablet 1 mg PO DAILY 03/12/20 12/08/24 Unknown History levetiracetam 250 mg tablet 250 mg PO TID 03/12/20 12/08/24 Unknown History aspirin 81 mg chewable tablet 81 mg PO DAILY 05/28/20 12/08/24 05/28/20 07:30 History blood-glucose sensor (Dexcom G7 02/23/23 12/08/24 Unknown History Sensor device) blood-glucose,chief scientific officer,cont 02/23/23 12/08/24 Unknown History (Dexcom G7 Stepdown Nurse) empagliflozin 10 mg tablet 10 mg PO DAILY 02/23/23 12/08/24 Unknown History (Jardiance) famotidine 20 mg tablet 20 mg PO BID 02/23/23 12/08/24 Unknown History hydrocodone 10 mg-acetaminophen 1 tablet PO Q8H pain 02/23/23 12/08/24 Unknown History 325 mg tablet oxybutynin chloride 15 mg 15 mg PO DAILY 02/23/23 12/08/24 Unknown History tablet,extended release 24 hr tamsulosin 0.4 mg capsule 0.4 mg PO HS 02/23/23 12/08/24 Unknown History gabapentin 600 mg tablet 600 mg PO TID 09/16/24 12/08/24 Unknown History dulaglutide 3 mg/0.5 mL 3 mg subcut WEEKLY 10/17/24 12/08/24 Unknown History subcutaneous pen injector (Trulicity) duloxetine 30 mg capsule,delayed 30 mg PO DAILY 10/17/24 12/08/24 Unknown History release hydroxyurea 500 mg capsule 500 mg PO DAILY 10/17/24 12/08/24 Unknown History metoprolol succinate 25 mg 25 mg PO DAILY 10/17/24 12/08/24 Unknown History tablet,extended release 24 hr pen needle, diabetic 31 gauge x 10/17/24 12/08/24 Unknown History 12/16 (TRUEplus Pen Needle) sildenafil 100 mg tablet 100 mg PO Q24H PRN as needed 10/17/24 12/08/24 Unknown History Allergies Allergy/AdvReac Type Severity Reaction Status Date / Time Penicillins Allergy Unknown Other Verified 12/08/24 10:42 Review of Systems 2 Review of Systems: A 10 system review of systems was completed on the patient and is negative except for what is stated in the HPI. Nursing and ancillary documentation was reviewed. 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 January 2019: Left parietooccipital CVA presenting with confusion and aphasia. 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 Obstructive sleep apnea Refuses CPAP. Chronic kidney disease, stage 3 Baseline creatinine is around 1.4. Vitamin D deficiency Coronary artery disease Patient reports history of 2 MIs; no history of cardiac catheterization. 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 Surgical History Surgical History History of back surgery History of permanent cardiac pacemaker placement Due to sick sinus rhythm. History of transurethral resection of prostate History of hernia surgery Family History Family History Mother Cerebrovascular accident Acute myocardial infarction Hypertension Father Diabetes mellitus Cerebrovascular accident Hypertension Social History Social History Social History: Surrogate decision maker: Darling Rivers (sister). Code status: Full code. Smoking packs per day: 1 Smoking cigarettes per day: 20.0 Years smoked: 45 Smoking pack-years: 45.00 Smoking status: Current every day smoker Tobacco type: cigarettes Second hand tobacco smoke exposure: Yes Alcohol intake: current Drinks per week: 1 Substance use: current Substance use type: marijuana and crack/cocaine Other substance usage details: daily Last use: 02/22/2023 Do You Feel Safe in your Home?: Yes Lack of Transportation: YES Lack of Food: Never True Current Housing: I Have Housing Concerned About Future Housing: No Difficulty Paying Gas/Electric Bills: No Difficulty Paying for Meds: No Currently Unemployed: YES Education: Don't Know Difficulty w/ Childcare or Family Care: No Living arrangements: alone Additional living arrangements comments: The patient lives in his own apartment in [place]. Occupation/Education: unemployed Additional occupation/education comments: On disability. Spiritual care concerns: No Exam 2 Narrative: GENERAL: Well-appearing, well-nourished, and in no acute distress. HEAD: Normocephalic, atraumatic. EYES: PERRLA and EOMI. ENT: Nares clear, no rhinorrhea or epistaxis. Mucous membranes moist. NECK: Supple. CHEST: Clear to auscultation. No respiratory distress. HEART: Regular rate and rhythm. No murmur heard. Normal peripheral pulses. ABDOMEN: Soft, nontender, nondistended, normal active bowel sounds. EXTREMITIES: Normal range of motion. No edema. SKIN: Warm, dry, no rash. NEURO: No focal deficits. Alert and oriented x3. PSYCH: Normal mood and affect. Course Vital Signs Vital signs: Vital Signs Temperature 36.6 C 12/29/24 09:31 Pulse Rate 110 H 12/29/24 09:31 Respiratory Rate 14 12/29/24 09:31 Blood Pressure 195/96 H 12/29/24 09:31 Pulse Oximetry 97 12/29/24 09:31 Oxygen Delivery Room Air 12/29/24 09:31 Temperature 36.6 C 12/29/24 09:31 Pulse Rate 106 H 12/29/24 12:03 Respiratory Rate 12 12/29/24 12:01 Blood Pressure 158/94 H 12/29/24 12:03 Pulse Oximetry 98 12/29/24 12:01 Oxygen Delivery Room Air 12/29/24 09:31 Medical Decision Making MDM Narrative Medical decision making narrative: differential diagnosis includes ACS, electrolyte abnormality, cocaine abuse, pneumonia, EKG showed unchanged from previous EKGs with an underlying left bundle branch block initial troponin was slightly elevated and repeat troponin was also slightly elevated but is less than his previous admission. The patient is positive for cocaine as he was previously the patient still denies using cocaine the case was discussed with cardiology who does feel that the patient is safe for outpatient follow-up despite the change in troponin due to it being less than his previous discharge level and his cocaine use Vital Signs Vital Signs: Vital Signs Temperature 36.6 C 12/29/24 09:31 Pulse Rate 110 H 12/29/24 09:31 Respiratory Rate 14 12/29/24 09:31 Blood Pressure 195/96 H 12/29/24 09:31 Pulse Oximetry 97 12/29/24 09:31 Oxygen Delivery Room Air 12/29/24 09:31 Temperature 36.6 C 12/29/24 09:31 Pulse Rate 106 H 12/29/24 12:03 Respiratory Rate 12 12/29/24 12:01 Blood Pressure 158/94 H 12/29/24 12:03 Pulse Oximetry 98 12/29/24 12:01 Oxygen Delivery Room Air 12/29/24 09:31 Lab Data 12/29/24 09:46 12/29/24 09:46 Labs: Lab Results 12/29/24 12/29/24 12/29/24 Range/Units 09:46 09:46 10:26 WBC 14.5 H (4.5-10.0) K/mm3 RBC 4.25 L (4.6-6.20) M/mm3 Hgb 14.4 (14.0-18.0) g/dL Hct 43.5 (42.0-52.0) % MCV 102.4 H (80-100) fl MCH 33.9 (26-34) pg MCHC 33.1 (32-36) g/dl RDW 14.1 (11.5-14.5) % Plt Count 315 (150-375) k/mm3 MPV 9.9 (7.4-10.4) fl Immature Gran % (Auto) 0.6 H (0-0.5) % Neut % (Auto) 77.9 H (45.5-73.1) % Lymph % (Auto) 15.8 L (18.3-44.2) % [place] % (Auto) 4.7 (2.6-8.5) % Eos % (Auto) 0.7 (0-4.4) % Baso % (Auto) 0.3 (0.2-1.2) % Lymph # (Auto) 2.29 (0.9-3.2) K/mm3 [place] # (Auto) 0.7 H (0.1-0.6) K/mm3 Eos # (Auto) 0.1 (0-0.3) K/mm3 Baso # (Auto) 0.0 (0.0-0.1) K/mm3 Abs Immat Gran (auto) 0.08 H (0.00-0.031) K/mm3 Absolute Neuts (auto) 11.3 H (1.3-6.7) K/mm3 Absolute Nucleated RBC 0.000 (0.0-0.012) K/mm3 Nucleated RBC % 0.0 (0.0-0.2) % Sodium 137 (137-145) mmol/L Potassium 3.8 (3.4-5.0) mmol/L Chloride 106 (98-107) mmol/L Carbon Dioxide 18 L (22-30) mmol/L Anion Gap 13 H (4-12) mmol/L BUN 22 H (9-20) mg/dL Creatinine 1.31 H (0.7-1.3) mg/dL Estim Creat Clear Calc Not Reportable Estimated GFR 55 L (59 - ) Glucose 340 H (65-110) mg/dL Lactic Acid 2.0 (0.7-2.0) mmol/L Calcium 11.1 H (8.4-10.2) mg/dL Magnesium 1.5 L (1.6-2.3) mg/dL Total Bilirubin 0.7 (0.2-1.3) mg/dL AST 33 (17-59) U/L ALT 34 (6-50) U/L Alkaline Phosphatase 110 (38-126) U/L Troponin I 0.044 H* (0.000-0.034) ng/mL NT-Pro-B Natriuret Pep 3230 H (19.9-100) pg/mL Total Protein 8.0 (6.3-8.2) g/dL Albumin 4.3 (3.5-5.1) g/dL Lipase 178 Cancelled (23-300) U/L Procalcitonin 0.1 ng/mL Urine Color (Yellow) Urine Appearance (Clear) Urine pH (5.0-9.0) Ur Specific [place] (1.001-1.035) Urine Protein (Negative) mg/dL Urine Glucose (UA) (Negative) mg/dL Urine Ketones (Negative) mg/dL Ur Blood (Man) (Negative) Urine Nitrate (Negative) Urine Bilirubin (Negative) Urine Urobilinogen (<2.0) mg/dL Add Ur Microanalysis Leukocyte Esterase Rfl (Negative) FERNANDO/UL Urine RBC (0-2) /hpf Urine WBC (0-3) /hpf Ur Squamous Epith Cells (Few) /hpf Urine Bacteria /hpf Urine Casts Hyaline Casts (None) /lpf Urine Opiates Screen (Negative) Urine Methadone Screen (Negative) Ur Barbiturates Screen (Negative) Ur Phencyclidine Scrn (Negative) Ur Amphetamine Screen (Negative) U Benzodiazepines Scrn (Negative) Urine Cocaine Screen (Negative) U Cannabinoids Screen (Negative) Influenza A (RT-PCR) Negative (Negative) Influenza B (RT-PCR) Negative (Negative) RSV (RT-PCR) Negative (Negative) SARS-CoV-2 RNA (RT-PCR) Negative (Negative) 12/29/24 12/29/24 Range/Units 11:08 13:39 WBC (4.5-10.0) K/mm3 RBC (4.6-6.20) M/mm3 Hgb (14.0-18.0) g/dL Hct (42.0-52.0) % MCV (80-100) fl MCH (26-34) pg MCHC (32-36) g/dl RDW (11.5-14.5) % Plt Count (150-375) k/mm3 MPV (7.4-10.4) fl Immature Gran % (Auto) (0-0.5) % Neut % (Auto) (45.5-73.1) % Lymph % (Auto) (18.3-44.2) % [place] % (Auto) (2.6-8.5) % Eos % (Auto) (0-4.4) % Baso % (Auto) (0.2-1.2) % Lymph # (Auto) (0.9-3.2) K/mm3 [place] # (Auto) (0.1-0.6) K/mm3 Eos # (Auto) (0-0.3) K/mm3 Baso # (Auto) (0.0-0.1) K/mm3 Abs Immat Gran (auto) (0.00-0.031) K/mm3 Absolute Neuts (auto) (1.3-6.7) K/mm3 Absolute Nucleated RBC (0.0-0.012) K/mm3 Nucleated RBC % (0.0-0.2) % Sodium (137-145) mmol/L Potassium (3.4-5.0) mmol/L Chloride (98-107) mmol/L Carbon Dioxide (22-30) mmol/L Anion Gap (4-12) mmol/L BUN (9-20) mg/dL Creatinine (0.7-1.3) mg/dL Estim Creat Clear Calc Estimated GFR (59 - ) Glucose (65-110) mg/dL Lactic Acid (0.7-2.0) mmol/L Calcium (8.4-10.2) mg/dL Magnesium (1.6-2.3) mg/dL Total Bilirubin (0.2-1.3) mg/dL AST (17-59) U/L ALT (6-50) U/L Alkaline Phosphatase (38-126) U/L Troponin I 0.058 H* D (0.000-0.034) ng/mL NT-Pro-B Natriuret Pep (19.9-100) pg/mL Total Protein (6.3-8.2) g/dL Albumin (3.5-5.1) g/dL Lipase (23-300) U/L Procalcitonin ng/mL Urine Color Yellow (Yellow) Urine Appearance Clear (Clear) Urine pH 5.5 (5.0-9.0) Ur Specific [place] 1.035 (1.001-1.035) Urine Protein 4+ H (Negative) mg/dL Urine Glucose (UA) 3+ H (Negative) mg/dL Urine Ketones 1+ H (Negative) mg/dL Ur Blood (Man) 2+ H (Negative) Urine Nitrate Negative (Negative) Urine Bilirubin Negative (Negative) Urine Urobilinogen 0.2 (<2.0) mg/dL Add Ur Microanalysis Reviewed Leukocyte Esterase Rfl Negative (Negative) FERNANDO/UL Urine RBC 3-5 H (0-2) /hpf Urine WBC 0-5 (0-3) /hpf Ur Squamous Epith Cells None seen (Few) /hpf Urine Bacteria None seen /hpf Urine Casts 11-20 Hyaline Casts Present (None) /lpf Urine Opiates Screen Negative (Negative) Urine Methadone Screen Negative (Negative) Ur Barbiturates Screen Negative (Negative) Ur Phencyclidine Scrn Negative (Negative) Ur Amphetamine Screen Negative (Negative) U Benzodiazepines Scrn Negative (Negative) Urine Cocaine Screen Positive A (Negative) U Cannabinoids Screen Positive A (Negative) Influenza A (RT-PCR) (Negative) Influenza B (RT-PCR) (Negative) RSV (RT-PCR) (Negative) SARS-CoV-2 RNA (RT-PCR) (Negative) Discharge Plan Discharge Clinical Impression: Nausea, Cocaine abuse Patient Disposition: Home Condition: Stable Instructions: Antibiotic Form, Cocaine Use Disorder (ED), Acute Nausea and Vomiting (ED) Additional Instructions: your labs redemonstrated your chronically elevated heart markers . This was discussed with Cardiology who felt as though this could be managed as an outpatient. If you develop worsening symptoms please return to the emergency department if her symptoms worsen Patient Language: Sami Prescriptions: No Action pantoprazole 40 mg tablet,delayed release (DR/EC) 40 mg PO QAM Qty: 30 3RF oxybutynin chloride 15 mg tablet extended release 24hr 15 mg PO DAILY hydrocodone-acetaminophen 10-325 mg tablet 1 tablet PO Q8H Rx Instructions: pain scale 4 to 6 famotidine 20 mg tablet 20 mg PO BID tamsulosin 0.4 mg capsule 0.4 mg PO HS (DME) Dexcom G7 Sensor Device MISCELLANEOUS (DME) Dexcom G7 Stepdown Nurse Misc MISCELLANEOUS Jardiance 10 mg tablet 10 mg PO DAILY gabapentin 600 mg tablet 600 mg PO TID Rx Instructions: pt. takes one and a half tab (900mg) in morning and noon and 2 tabs 1200 mg in the evenings atorvastatin 80 mg tablet 80 mg PO HS clopidogrel 75 mg tablet 75 mg PO DAILY ergocalciferol (vitamin D2) 1,250 mcg (50,000 unit) capsule 1,250 mcg PO WEEKLY Rx Instructions: pT TAKES ON thursday MORNING amitriptyline 100 mg tablet 100 mg PO HS levetiracetam 250 mg Tablet 250 mg PO TID folic acid 1 mg Tablet 1 mg PO DAILY aspirin 81 mg tablet,chewable 81 mg PO DAILY sildenafil 100 mg tablet 100 mg PO Q24H PRN (Reason: as needed) metoprolol succinate 25 mg tablet extended release 24 hr 25 mg PO DAILY (DME) pen needle, diabetic [TRUEplus Pen Needle] 31 gauge x 5/16 needle MISCELLANEOUS hydroxyurea 500 mg capsule 500 mg PO DAILY duloxetine 30 mg capsule,delayed release(DR/EC) 30 mg PO DAILY Trulicity 3 mg/0.5 mL pen injector 3 mg SUBCUT WEEKLY hydrochlorothiazide 12.5 mg Capsule 12.5 mg PO QAM 30 Days Qty: 30 1RF levofloxacin 750 mg tablet 750 mg PO DAILY 5 Days Qty: 5 0RF sucralfate 100 mg/mL suspension See Rx Instructions .ROUTE .COMPLEX Qty: 1200 0RF Dose Instruction: SHAKE LIQUID AND TAKE 10 ML(1 GRAM) BY MOUTH BEFORE MEALS AND AT BEDTIME Rx Instructions: SHAKE LIQUID AND TAKE 10 ML(1 GRAM) BY MOUTH BEFORE MEALS AND AT BEDTIME Follow-up/Referrals: Ai,PHILIP Perea [Primary Care Provider] - Time of Disposition: 14:31
[2024-12-29] MEDS: ASPIRIN 81 MG CHEWABLE TABLET 324 MG PO (11:53)
[2024-12-29 13:06] LABS: Amphetamine Screen Urine Negative (Negative); Barbiturate Screen Urine Negative (Negative); Benzodiazepines Screen Urine Negative (Negative); Cannabinoid Screen Urine Positive (Negative); Cocaine Screen Urine Positive (Negative); Methadone Screen Urine Negative (Negative); Opiate Screen Urine Negative (Negative); Phencyclidine Screen Urine Negative (Negative)
[2024-12-29 14:16] LABS: Troponin I 0.058 ng/mL (0.000-0.034)
== END 2024-12-29 14:40 | disposition home or self-care (01) ==
PROVIDERS: Emergency Provider Emergency Medicine; PCP Physician Assistant
DX: R11.0 Nausea (principal); F14.10 Cocaine abuse, uncomplicated; Z20.822 Contact with and (suspected) exposure to COVID-19; I25.10 Atherosclerotic heart disease of native coronary artery without angina pectoris; I49.5 Sick sinus syndrome; I25.2 Old myocardial infarction; I69.954 Hemiplegia and hemiparesis following unspecified cerebrovascular disease affecting left non-dominant side; E11.22 Type 2 diabetes mellitus with diabetic chronic kidney disease; I12.9 Hypertensive chronic kidney disease with stage 1 through stage 4 chronic kidney disease, or unspecified chronic kidney disease; N18.30 Chronic kidney disease, stage 3 unspecified; J44.9 Chronic obstructive pulmonary disease, unspecified; E11.42 Type 2 diabetes mellitus with diabetic polyneuropathy; E78.5 Hyperlipidemia, unspecified; E55.9 Vitamin D deficiency, unspecified; D64.9 Anemia, unspecified; G47.33 Obstructive sleep apnea (adult) (pediatric); F17.210 Nicotine dependence, cigarettes, uncomplicated; Z95.0 Presence of cardiac pacemaker; Z90.79 Acquired absence of other genital organ(s); Z79.899 Other long term (current) drug therapy; Z79.02 Long term (current) use of antithrombotics/antiplatelets; Z79.84 Long term (current) use of oral hypoglycemic drugs; Z79.82 Long term (current) use of aspirin; Z79.85 Long-term (current) use of injectable non-insulin antidiabetic drugs; I45.10 Unspecified right bundle-branch block; I51.7 Cardiomegaly
CPT/HCPCS: 36415; 71045; 80053; 80307; 81001; 83605; 83690; 83735; 83880; 84145; 84484; 85025; 87637; 93005; 96361; 96365; 96366; 96375; 99284; A9270; J2405; J3475; J7030

== ENCOUNTER 2025-01-02 09:30 | Outpatient (RCR) | payer OTHER, SELFPAY ==
--- NOTE | 2024-12-01 09:50 | OPREHPOC ---
Outpatient Therapy Plan of Care This is a Multidisciplinary Plan of Care that may contain components documented by all disciplines (PT, OT, and ST.) PT Problem 1 PT Problem #1 Knowledge Deficit PT Goal 1 Goal / Goal Update Park with HEP Target Visit 4 PT Goal 2 Goal / Goal Update Report no pain greater than 5/10 consistently Target Visit 10 PT Problem 2 PT Problem #2 Impaired Gait PT Goal 1 Goal / Goal Update Ambulate with even stride length bilaterally with use of single point cane Target Visit 10 PT Problem 3 PT Problem #3 Impaired Strength PT Goal 1 Goal / Goal Update 1. Improve lindsay hip flexion strength to 4+/5 to improve foot clearance 2. Improve lindsay hip abduction strength to 4-/5 to improve lateral stability with gait and ADLs Target Visit 10 PT Problem 4 PT Problem #4 Impaired Range of Motion PT Goal 1 Goal / Goal Update 1. Improve hip abduction mobility to 45 degrees lindsay to improve capsular mobilization and functional mobility Target Visit 10
--- NOTE | 2024-12-01 09:50 | PTOPEVAL1 ---
Assessment and note entered by Graeme Bridges, PT Evaluation Information Assessment Status Evaluation ICD-10 Condition Codes (PT) Pain in low back M54.50 Onset 5+ years Subjective Information Reports that he no longer receives pain medication as of three months ago and he has really been struggling with pain at this time. Pain is majority in the middle of his back with no radiculopathy. He had cement placed in his spine and he feels he has been slightly worse. Reports that he also has neuropathy, but that does not hurt him nearly as bad as his back. Reported Pain Level Pain Score 9: Self Report Assessment PT Clinical Summary Patient presents with weak hips, poor core strength, and chronic back pain debilitating ambulation and daily activity. Patient is currently not on pain medication and has been struggling with pain management. Has a history of positive reaction to aquatic therapy for pain management and will benefit from skilled therapy to address these deficits. Plan of Care Interventions Aquatic Therapy,Gait Training,Manual Therapy,Neuro Re-education,Therapeutic Activities,Therapeutic Exercise PT Services Indicated Yes Treatment Frequency and 2x/week for 10 visits Duration These treatments will address the objective and functional deficits as defined above. The patient will be advanced safely and appropriately in order for the patient to progress towards his/her prior level of function. Additional exercises will be introduced and as well as a comprehensive home exercise program upon discharge, if needed, ?to ensure carryover of functional gains achieved in the clinic. This treatment plan has been reviewed and agreement upon by the patient.
--- NOTE | 2024-12-27 12:56 | PCPTNOTE ---
Pt cancelled due to illness.
--- NOTE | 2025-01-06 07:55 | PCPTNOTE ---
pt called and canceled today's reeval appt
--- NOTE | 2025-02-02 15:43 | OPREHPOC ---
Outpatient Therapy Plan of Care This is a Multidisciplinary Plan of Care that may contain components documented by all disciplines (PT, OT, and ST.) PT Problem 1 PT Problem #1 Knowledge Deficit PT Goal 1 Goal / Goal Update [place] with HEP 02-02-25 d/c pt stopped attending PT goals not addressed Target Visit 4 PT Goal 2 Goal / Goal Update Report no pain greater than 5/10 consistently 02-02-25 d/c pt stopped attending PT goals not addressed Target Visit 10 PT Problem 2 PT Problem #2 Impaired Gait PT Goal 1 Goal / Goal Update Ambulate with even stride length bilaterally with use of single point cane 02-02-25 d/c pt stopped attending PT goals not addressed Target Visit 10 PT Problem 3 PT Problem #3 Impaired Strength PT Goal 1 Goal / Goal Update 1. Improve lindsay hip flexion strength to 4+/5 to improve foot clearance 2. Improve lindsay hip abduction strength to 4-/5 to improve lateral stability with gait and ADLs 25 d/c pt stopped attending PT goals not addressed Target Visit 10 PT Problem 4 PT Problem #4 Impaired Range of Motion PT Goal 1 Goal / Goal Update 1. Improve hip abduction mobility to 45 degrees lindsay to improve capsular mobilization and functional mobility 25 d/c pt stopped attending PT goals not addressed Target Visit 10
--- NOTE | 2025-02-02 15:43 | PTOPDC ---
Assessment and note entered by Jessica Marquez, PT Assessment Status Discharge - Pt Not Present ICD-10 Condition Codes (PT) Pain in low back M54.50 Onset 5+ years Subjective Information pt was not seen this date. Assessment PT Clinical Summary Rommel has received 5 PT sessions, from December 01 to January 02. He then stopped attending therapy. Discharge PT. The goals were not assessed. Plan of Care PT Services Indicated No
== END 2025-02-02 16:58 | disposition home or self-care (01) ==
LOC: ANHPT 09:30
PROVIDERS: PCP Physician Assistant; Visit Provider Physician Assistant
DX: M54.50 Low back pain, unspecified (principal)
CPT/HCPCS: 97110; 97113; 97161

== ENCOUNTER 2025-02-01 00:02 | Day surgery (SDC) | payer OTHER, SELFPAY ==
[2025-01-19 14:19] VITALS: BMI 34.2
--- NOTE | 2025-01-25 15:36 | PC.NURSE ---
Spoke with _patient regarding medication _Plavix_. Patient verbalizes understanding that the last dose is to be taken on 01/26/25 and the Endoscopist will instruct them when to restart after the procedure.
--- OUTSIDE RECORDS SUMMARY | 2025-02-01 00:04 | XMS_ITS | Encounter Summary ---
Author Organization [facility] Address [facility] [place] [address] Care Team Providers Care Detector Car Operator Name Role Phone Joseph Ann MD Unavailable [phone] Chai Junior MD Unavailable Ramandeep AnnP Primary Care Provider [phone] Dina Cloud PA-C Primary Care Provider [phone] Encounter Details Date Type Department Care Team (Late st Contact Info) Description 07/30/2018 Abstract [facility] at [address] [address] Baudilio Sewell MA Social History [...] PG pt send letter continue current meds MBLER BODY documented in this encounter Plan of Treatment [...] MRSA 03/09/2017 03/09/2017 10/05/2018 12:4 0 PM ASSEMBLER BODY documented as of this encounter Care Teams Detector Car Operator Relationship Specialty Start Date End Date Ramandeep Ann FNP [facility]. [address] [place] [address] PCP - General NURSE PRACTITIONER 05/04/18 10/31/18 Dina Cloud PA-C [address] [place] [id number] PCP - General NURSE PRACTITIONER 05/19/19 [facility] [address] [place] [address] [place] Dehydrogenation Operator Head CARDIOVASCULAR DISEASE 01/02/16 [facility] [address] [place], [place] [address] EP Dehydrogenation Operator Head CARDIOVASCULAR DISEASE 09/03/16 documented as of this encounter
--- OUTSIDE RECORDS SUMMARY | 2025-02-01 00:04 | XMS_ITS | Encounter Summary ---
Author Organization [facility] Address [facility] [place] [address] Care Team Providers Care Manager Market Intelligence Name Role Phone Joseph Ann MD Unavailable [phone] Chai Juinor MD Unavailable Dina Cloud PA-C Primary Care Provider [phone] Encounter Details Date Type Department Care Team (Late st Contact Info) Description 07/20/2020 Unowhy Message Enc [facility] [address] [address] [email or web address], [facility] Provider Missed Carelink Transmission Social [...] COVID-19? No / Unsure 07/17/2020 11:50 AM C D STRIPPER documented as of this encounter Plan of Treatment Not on file documented as of this encounter Visit Diagnoses Not on filedocumented in this encounter Care Teams Manager Market Intelligence Relationship Specialty Start Date End Date Dina Cloud PA-C [facility] [place] [address] PCP - General NURSE PRACTITIONER 05/19/19 Joseph Ann MD [facility]. [address] [place] [address] [place] Caustic Room Operator CARDIOVASCULAR DISEASE 01/02/16 Chai Junior MD [facility]. [address] [place], [place] [address] EP Caustic Room Operator CARDIOVASCULAR DISEASE 09/03/16 documented as of this encounter
--- OUTSIDE RECORDS SUMMARY | 2025-02-01 00:04 | XMS_ITS | Encounter Summary ---
Author Organization [facility] Address [facility] [place] [address] Care Team Providers Care Brand Marketing Intern Name Role Phone Joseph Ann MD Unavailable [phone] Chai Junior MD Unavailable Annie Chavez MD Primary Care Provider [phone] Ramandeep AnnP Primary Care Provider [phone] Dina Cloud PA-C Primary Care Provider [phone] Encounter Details Date Type Department Care Team (Late st Contact Info) Description 10/23/2017 Abstract [facility] at [address] [address] Baudilio Sewell MA Social History Tobacco Use [...] MRSA 03/09/2017 03/09/2017 10/05/2018 12:4 0 PM SMOKE ROOM OPERATOR documented as of this encounter Care Teams Brand Marketing Intern Relationship Specialty Start Date End Date Annie Chavez MD [facility]. [facility] [address] [place] [address] PCP - General FAMILY PRACTICE 08/03/17 05/03/18 Ramandeep Ann FNP [facility]. [facility] [address] [place] [address] PCP - General NURSE PRACTITIONER 05/04/18 10/31/18 Dina Cloud PA-C [address] [place] [id number] PCP - General NURSE PRACTITIONER 05/19/19 Joseph Ann MD [facility]. [address] [place] [address] [place] Roof Bolter Helper CARDIOVASCULAR DISEASE 01/02/16 Chai Junior MD [address] [place] [address] EP Roof Bolter Helper CARDIOVASCULAR DISEASE 09/03/16 documented as of this encounter
--- OUTSIDE RECORDS SUMMARY | 2025-02-01 00:04 | XMS_ITS | Encounter Summary ---
Author Organization [facility] Address Formerly [facility] [place] [address] Care Team Providers Care Cardiology Rn Name Role Phone Joseph Ann MD Unavailable [phone] Chai Junior MD Unavailable Dina Cloud PA-C Primary Care Provider [phone] Encounter Details Date Type Department Care Team (Late st Contact Info) Description 08/27/2020 Pure Focus Message Enc [facility] [address] [address] [employer], [facility] Provider Missed Carelink Transmission Social History Tobacco [...] on filedocumented in this encounter Care Teams Cardiology Rn Relationship Specialty Start Date End Date Dina Cloud PA-C [address] [place] [address] PCP - General NURSE PRACTITIONER 05/19/19 Joseph Ann MD [address] [place] [address] [place] Hydraulic Punch Press Operator CARDIOVASCULAR DISEASE 01/02/16 Chai Junior MD [address] [place] [address] EP Hydraulic Punch Press Operator CARDIOVASCULAR DISEASE 09/03/16 documented as of this encounter
--- OUTSIDE RECORDS SUMMARY | 2025-02-01 00:04 | XMS_ITS | Encounter Summary ---
Author Organization [facility] Address [address] [place] [address] Phone Care Team Providers Care Open Hearth Stockyard Supervisor Name Role Phone Dina Cloud PAC Primary Care Provider + [phone] Lefty Sousa MD Unavailable [phone] Encounter Details Date Type Department Care Team (Late st Contact Info) Description 07/04/2021 Telephone [facility] [address] [place] [address] Lefty Sousa MD 1052 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 RLOCKING MACHINE OPERATOR documented in this encounter Plan of Treatment Upcoming Encounters Date Type Department Care Team (Late st Contact Info) Description 03/17/2025 10:45 AM CDT Office Visit [facility] [address] [place] [phone] Lefty Sousa MD 1052 [facility] [address] [address] documented as of this encounter Visit Diagnoses Not on filedocumented in this encounter Additional Health Concerns Assessment Noted Time PHQ-9 Depression Total Score: 0 04/26/20 9:02 AM CDT documented as of this encounter Care Teams Open Hearth Stockyard Supervisor Relationship Specialty Start Date End Date Dina Cloud PAC [address] [place] [address] PCP - General Physician Real Estate Job Titles 05/25/20 Lefty Sousa MD [address] [place] [address] Consulting Physician Hematology and Oncology 01/03/21 documented as of this encounter
--- OUTSIDE RECORDS SUMMARY | 2025-02-01 00:04 | XMS_ITS | Encounter Summary ---
Author Organization [facility] Address [address] [place] [address] Phone Care Team Providers Care Supervisor Lace Tearing Name Role Phone Dina Cloud PAC Primary Care Provider + [phone] Lefty Sousa MD Unavailable [phone] Encounter Details Date Type Department Care Team (Late st Contact Info) Description 02/06/2022 Telephone [facility] [address] [place] [address] Lefty Sousa MD 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 Gender Identity Not on file [...] Visit [facility] [address] [place] [phone] Lefty Sousa MD [facility] [address] [address] documented as of this encounter Visit Diagnoses Not on filedocumented in this encounter Additional Health Concerns Assessment Noted Time PHQ-9 Depression Total Score: 0 04/26/20 9:02 AM CDT documented as of this encounter Care Teams Supervisor Lace Tearing Relationship Specialty Start Date End Date Dina Cloud PAC [address] [place] [address] PCP - General Physician Comber Tender 05/25/20 Lefty Sousa MD [address] [place] [phone] Consulting Physician Hematology and Oncology 01/03/21 documented as of this encounter
--- OUTSIDE RECORDS SUMMARY | 2025-02-01 00:04 | XMS_ITS | Encounter Summary ---
Author Organization 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 Gender Identity Not on file Sexual Orientation [...] [facility] [address] [place] [address] Lefty Sousa MD [address] [place] [address] [id number] documented as of this encounter Visit Diagnoses Not on filedocumented in this encounter Additional Health Concerns Assessment Noted Time PHQ-9 Depression Total Score: 0 11/03/19 8:14 AM CDT documented as of this encounter Care Teams Real Estate Associate Relationship Specialty Start Date End Date Provider, Unknown UNKNOWN PCP - General Primary Care 07/14/18 05/24/20 Dina Cloud PAC [address] [place] [address] PCP - General Physician Container Packer Operator 05/25/20 Lefty Sousa MD [address] [place] [address] Consulting Physician Hematology and Oncology 01/03/21 documented as of this encounter
--- OUTSIDE RECORDS SUMMARY | 2025-02-01 00:04 | XMS_ITS | Encounter Summary ---
Author Organization [facility] Address [address] [place] [address] Phone Care Team Providers Care Aircraft General Repair Mechanic Name Role Phone Dina Cloud PAC Primary Care Provider + [phone] Lefty Sousa MD Unavailable Reason for Visit * Reason Comments Medication Refill Encounter Details Date Type Department Care Team (Late st Contact Info) Description 07/21/2023 Refill [facility] [address] [place] [address] Lefty Sousa MD [address] [address] Medication Refill Social History Tobacco [...] on file 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 Gender Identity Not on file Sexual Orientation Not on file documented as of this encounter Miscellaneous Notes * Telephone Encounter - Norma Bond RN - 07/21/2023 7:53 AM DEVELOPMENTAL MATHEMATICS INSTRUCTOR Please fill if appropriate LOPMENTAL MATHEMATICS INSTRUCTOR documented in this encounter Plan of Treatment Upcoming Encounters Date Type Department Care Team (Late st Contact Info) Description 03/17/2025 10:45 AM CDT Office Visit [facility] [address] [place] [address] Lefty Sousa MD [address] [place] [address] [address] documented as of this encounter Visit Diagnoses Diagnosis Anemia, unspecified type documented in this encounter Additional Health Concerns Assessment Noted Time PHQ-9 Depression Total Score: 0 04/26/20 9:02 AM CDT documented as of this encounter Care Teams Aircraft General Repair Mechanic Relationship Specialty Start Date End Date Dina Cloud PAC [address] [place] [address] PCP - General Physician Saxophone Player 05/25/20 Lefty Sousa MD [address] [place] [phone] Consulting Physician Hematology and Oncology 01/03/21 documented as of this encounter
--- OUTSIDE RECORDS SUMMARY | 2025-02-01 00:04 | XMS_ITS | Encounter Summary ---
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 Gender Identity Not on file Sexual Orientation Not on file documented as of this encounter Miscellaneous Notes * Telephone Encounter - Cary Chapman - 07/15/2021 3:54 PM CST PT HAD AN APPT TODAY, NO SHOW, CALLED PT, LEFT V/M, LETTER SENT AGE WRAPPING MACHINE OPERATOR documented in this encounter Plan of Treatment Upcoming Encounters Date Type Department Care Team (Late st Contact Info) Description 03/17/2025 10:45 AM CDT Office Visit [facility] [address] [place] [phone] Lefty Sousa MD 1052 [facility] [address] [address] documented as of this encounter Visit Diagnoses Not on filedocumented in this encounter Additional Health Concerns Assessment Noted Time PHQ-9 Depression Total Score: 0 04/26/20 9:02 AM CDT documented as of this encounter Care Teams Director Organizational Relationship Specialty Start Date End Date Dina Cloud PAC [address] [place] [address] PCP - General Physician Project Engineering Manager 05/25/20 Lefty Sousa MD [address] [place] [phone] Consulting Physician Hematology and Oncology 01/03/21 documented as of this encounter
--- OUTSIDE RECORDS SUMMARY | 2025-02-01 00:04 | XMS_ITS | Encounter Summary ---
Author Organization [facility] Address [facility] [place] [address] Care Team Providers Care Client Relations Representative Name Role Phone Joseph Ann MD Unavailable [phone] Chai Junior MD Unavailable Dina Cloud PA-C Primary Care Provider [phone] Encounter Details Date Type Department Care Team (Late st Contact Info) Description 10/01/2020 TickPick Message Enc [facility] [address] [facility] Provider Missed or Cancelled Appointment Social [...] on filedocumented in this encounter Care Teams Client Relations Representative Relationship Specialty Start Date End Date Dina Clodu PA-C [address] [place] [address] PCP - General NURSE PRACTITIONER 05/19/19 Joseph Ann MD [address] [place] [address] [place] Client Relations Representative CARDIOVASCULAR DISEASE 01/02/16 Chai Junior MD [address] [place] [address] EP Client Relations Representative CARDIOVASCULAR DISEASE 09/03/16 documented as of this encounter
--- OUTSIDE RECORDS SUMMARY | 2025-02-01 00:04 | XMS_ITS | Encounter Summary ---
Author Organization [facility] Address [facility] [place] [address] Care Team Providers Care Airport Driver Name Role Phone Joseph Ann MD Unavailable [phone] Chai Junior MD Unavailable Dina Cloud PA-C Primary Care Provider [phone] Encounter Details Date Type Department Care Team (Late st Contact Info) Description 08/12/2019 [facility] at [address] [address] Baudilio Sewell MA Social History Tobacco Use [...] Final * BASIC METABOLIC PANEL (02/21/2019) Pathologist [facility] SODIUM S/P/B 134 137 - 145 [...] Final Result * VITAMIN B-12 (02/21/2019) Pathologist [facility] VITAMIN B12 S/P/B 470 239 - 931 02/21/2019 us Doc [facility] Final Result * FOLATE (OUTSIDE LAB) (02/21/2019) Pathologist [facility] FOLATE >20.0 02/21/2019 us Doc [facility]-OUTSIDE/ABSTRACTED Final Result * LIPID PANEL (02/20/2019) Pathologist [facility] CHOLESTEROL 129 0 - 200 HDL 27 TRIGLYCERIDES 241 <150 LDL (CALCULATED) 79 02/20/2019 us Doc [facility] Final Result * PROTIME (OUTSIDE LAB) (02/20/2019) Pathologist [facility] PROTIME 13.1 INR 1.0 02/20/2019 us Doc [facility]-OUTSIDE/ABSTRACTED Final Result documented in this encounter Visit Diagnoses Not on filedocumented in this encounter Care Teams Airport Driver Relationship Specialty Start Date End Date Dina Cloud PA-C [address] [place] [address] PCP - General NURSE PRACTITIONER 05/19/19 Joseph Ann [facility] [address] [place] [address] [employer] Social Science Teacher CARDIOVASCULAR DISEASE 01/02/16 Chai Junior MD [facility] [address] [place] [address] [place] [employer] Social Science Teacher CARDIOVASCULAR DISEASE 09/03/16 documented as of this encounter
--- OUTSIDE RECORDS SUMMARY | 2025-02-01 00:04 | XMS_ITS | Encounter Summary ---
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 Gender Identity Not on file Sexual [...] Office Visit [facility] [address] [place] [address] Lefty Sousa MD [address] [place], [place] [address] documented as of this encounter Visit Diagnoses Not on filedocumented in this encounter Additional Health Concerns Assessment Noted Time PHQ-9 Depression Total Score: 0 11/03/19 8:14 AM CDT documented as of this encounter Care Teams Chip Person Relationship Specialty Start Date End Date Provider, Unknown UNKNOWN PCP - General Primary Care 07/14/18 05/24/20 Dina Cloud PAC [address] [place] [address] PCP - General Physician Diver Assistant 05/25/20 Lefty Sousa MD [address] [place] [phone] Consulting Physician Hematology and Oncology 01/03/21 documented as of this encounter
--- OUTSIDE RECORDS SUMMARY | 2025-02-01 00:04 | XMS_ITS | Clinical Summary ---
Author Organization [facility] Address [address] [place] [address] Care Team Providers Care Public Transit Trolley Driver Name Role Phone Joseph Ann MD Unavailable [phone] Chai Junior MD Unavailable Dina Cloud PA-C Primary Care Provider [phone] Allergies Active Allergy Reactions Criticality Noted Date [...] daily. 0 Active vitamin D2, ergocalciferol , 69280 UNITS capsule TK ONE C PO Q [...] cream 1 Active Lancets (ONETOUCH DELICA PLUS NRKRQD30C) Misc Inject 1 each into the skin. [...] artery stenosis 12/15/2017 SSS (sick sinus syndrome) ([facility]) 11/02 Abnormal EKG 06/04/2016 Syncope and collapse 06/04/2016 Type 2 diabetes mellitus wit h complication, with long-term current use of insulin ([facility]) 05/21/2016 CVA (cerebral vascular accident) ([facility]) 05/21/2016 Sacroiliitis 09/04/2015 MRSA (methicillin resistant staph aureus) cultur e positive 08/15/2015 Nontraumatic compression fra cture of lumbosacral vertebra ([facility]) 07/13/2015 Lumbar compression fracture ([facility]) Impingement syndrome of right shoulder 5 Shoulder pain, right 05/08/2015 Hyperlipidemia Essential hypertension CAD (coronary artery disease) Family History Medical History Relation Comments Diabetes Father Hypertension Mother Stroke Mother [place] Paternal Grandfather Stroke Paternal Grandmother Relation Status [...] 1:19 PM CDT Height 172.7 cm (5' 8) 11/12/2021 1:19 PM CDT Body Mass Index 35.43 11/12/2021 1:19 PM CDT Plan of Treatment Health Maintenance Due Date Last Done Comments ASCVD Statin 1961 Kidney Health Evaluation 1961 Annual Physical 01/06/1964 Diabetes: Retinopathy Eye Exam 1979 Hepatitis C 1979 Pneumococcal Vaccine: 50+ Years (2 of 2 - PCV) 02/09/2018 02/09/2017, [...] Vaccine ( season) 2024 07/17/2021, 11/11/2020, 10/15/2020 DTaP, Tdap and Td Vaccines (2 - [...] this topic Medical Devices Implanted Type Area Loading Machine Tool Setter Device Identifier Shelf Expiration Date Model / Serial / Lot Atrial Lead-09/23/2016 Implanted:09/23 by Chai Junior MD (Quantity not on file) Lead Implant [employer] 5076 CAPSUREFIX NOVUS / [id number] / Ventricular Lead-09/23/2016 Implanted:09/23 by Chai Junior MD (Quantity not on file) Lead Implant [employer] 5076 CAPSUREFIX NOVUS / [id number] / Medtronic Pacemaker-2016 Implanted:09/23 by Chai Junior MD (Quantity not on file) Pacemaker [employer] [id number] ADVI SA MRI / [id number] / Procedures Procedure Name Priority Date/Time Associated Diagnosis Comments COLONOSCOPY Routine 11/27/2021 8:29 AM CDT HEMOGLOBIN, GLYCOSYLATED Routine 02/21/2019 LIPID PANEL Routine 02/20/2019 from Last 3 Months or Most Recently Relevant to Health Maintenance Results * Colonoscopy (11/27/2021 8:29 AM CDT) Narrative Nikolai Solis MD - 11/27/2021 8:29 AM CDT Nikolai Solis MD 11/27/2021 9:16 AM NIKOLAI SOLIS MD, FACG, FACP COLONOSCOPY 11/27/2021 INDICATION: Personal history of colon polyps. POST-OP: Three polyps removed. SEDATION: Per Anesthesia PREP: Good. With the patient in the left lateral decubitus position, the Olympus [id number] colonoscope was introduced into the rectum and [...] GLYCOSYLATED (02/21/2019) HGB A1C 6.1 <5.7 02/21/2019 Doc [facility] Final Result * LIPID PANEL (02/20/2019) CHOLESTEROL 129 0 - 200 HDL 27 TRIGLYCERIDES 241 <150 LDL (CALCULATED) 79 02/20/2019 Doc [facility] Final Result from Last 3 Months or Most Recently Relevant to Health Maintenance Insurance [employer] Advance Directives Documents on File Type Date Recorded Patient Golf Course Starter Expl anation Advance Directives and Living Will 06/22/2020 9:37 AM [facility] 2019 * Full Code (Latest Code Status on File) Date Activated Date Inactivated Comments 09/28/2017 9:22 AM 09/28/2017 3:24 PM Care Teams Public Transit Trolley Driver Relationship Specialty Start Date End Date Dina Cloud PA-C [address] [place] [address] PCP - General NURSE PRACTITIONER 05/19/19 Joseph Ann MD [facility] [address] [place] [address] [place] Maintenance Technician 3Rd Shift CARDIOVASCULAR DISEASE 01/02/16 Chai Junior MD [address] [place] [address] EP Maintenance Technician 3Rd Shift CARDIOVASCULAR DISEASE 09/03/16
--- OUTSIDE RECORDS SUMMARY | 2025-02-01 00:04 | XMS_ITS | Encounter Summary ---
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 ICAL MILLING PROCESSOR documented in this encounter Plan of Treatment Upcoming Encounters Date Type Department Care Team (Late st Contact Info) Description 03/17/2025 10:45 AM CDT Office Visit [facility] [address] [place] [phone] Lefty Sousa MD [address] [address] documented as of this encounter Visit Diagnoses Not on filedocumented in this encounter Additional Health Concerns Assessment Noted Time PHQ-9 Depression Total Score: 0 05/17/20 20 8:28 AM CDT documented as of this encounter Care Teams Spring Intern Relationship Specialty Start Date End Date Dina Cloud PAC [facility] [place] [address] PCP - General Physician [place] Program Coordinator 05/25/20 Lefty Sousa MD [address] [place] [place] [phone] Consulting Physician Hematology and Oncology 01/03/21 documented as of this encounter
--- OUTSIDE RECORDS SUMMARY | 2025-02-01 00:04 | XMS_ITS | Encounter Summary ---
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 Gender Identity Not on file Sexual Orientation Not on file documented as of this encounter Miscellaneous Notes * Telephone Encounter - Ketty Lopez - 09/17/2020 9:20 AM CST Called pt to reschedule due to weather-pt states he will have his assistant professor of art call back to reschedule TAPER documented in this encounter Plan of Treatment Upcoming Encounters Date Type Department Care Team (Late st Contact Info) Description 03/17/2025 10:45 AM CDT Office Visit [facility] [address] [place] [phone] Lefty Sousa MD 1052 [facility] 2 [place] [address] documented as of this encounter Visit Diagnoses Not on filedocumented in this encounter Additional Health Concerns Assessment Noted Time PHQ-9 Depression Total Score: 0 05/17/20 8:28 AM CDT documented as of this encounter Care Teams Vending Machine Filler Relationship Specialty Start Date End Date Dina Cloud PAC [address] [place] [address] PCP - General Physician Smelter Charger 05/25/20 Lefty Sousa MD [address] [place] [phone] Consulting Physician Hematology and Oncology 01/03/21 documented as of this encounter
--- OUTSIDE RECORDS SUMMARY | 2025-02-01 00:04 | XMS_ITS | Clinical Summary ---
Author Organization [facility] Address [address], [address] [place] [address] Phone Care Team Providers Care Heat Treat Inspector Name Role Phone AiDina rosas A PAC Primary Care Provider + [phone] Lefty Sousa MD Unavailable [phone] Allergies Active Allergy Reactions Criticality Noted Date [...] 3 12/24/19 17 Active ergocalciferol (VITAMIN D) 30768 UNIT Capsule TK 1 C PO Q [...] 19 Active FEROSUL 325 (65 Fe) MG TabletIndicati ons:Anemia of unknown etiology TAKE 1 TABLET BY MOUTH THREE TIMES DAILY 90 Tab 3 08/08/19 20 Active pantoprazole (PROTONIX) 40 MG Tablet Delayed Response 04/30/20 20 Active tamsulosin (FLOMAX) 0.4 MG Capsule TAKE 1 CAPSULE BY MOUTH AT BEDTIME 08/19/19 21 Active B-D ULTRAFINE III SHORT PEN 31G X 8 MM [facility] USE TO INJECT INSULIN ONCE DAILY 08/07/19 [...] mg by mouth daily. 02/15/20 22 Active HYDROcodone-ac etaminophen (NORCO) 10-325 MG Tablet Take 1 Tablet by mouth 3 times daily. 08/06/19 23 Active famotidine (PEPCID) 20 MG Tablet Take 20 mg by mouth 2 times daily. 11/07/19 23 Active Continuous Blood Gluc Sensor (Dexcom G7 Sensor) Misc 03/25/20 23 Active buPROPion, Smoking Deter, (ZYBAN) [...] tablets (1200 mg) in the evening 05/19/20 Active Lantus SoloStar 100 UNIT/ML Solution Pen-injector ADMINISTER 40 UNITS UNDER THE SKIN AT BEDTIME 03/17/20 24 Active Insulin Lispro, 1 Unit Dial, 100 UNIT/ML Solution Pen-injector INJECT 12 TO 18 UNITS SUBCUTANEOUS THREE TIMES DAILY BEFORE MEALS. MAX OF 50 UNITS DAILY 05/18/20 24 Active hydroxyurea (HYDREA) 500 MG CapsuleIndicat ions:Myeloprol iferative disease (HCC) TAKE 1 CAPSULE BY MOUTH DAILY 30 Capsule 5 11/08/19 25 Active DULoxetine (CYMBALTA) [address] Particles Take 30 mg by mouth daily. 08/31/19 25 Active hydroCHLOROthi azide (MICROZIDE) 12.5 MG Capsule Take 12.5 mg by mouth. 10/20/19 25 Active folic acid (FOLVITE) 1 MG TabletIndicati ons:Anemia, unspecified type TAKE 1 TABLET BY MOUTH DAILY 90 Tablet 1 01/10/20 25 Active folic acid (FOLVITE) 1 MG TabletIndicati ons:Anemia, unspecified type TAKE 1 TABLET BY MOUTH DAILY 90 Tablet 1 07/11/20 24 025 Discontinued Active Problems Problem Noted Date Diagnosed Date [...] Encounters Date Type Department Care Team Description 01/07/2025 Refill [facility] [address] [address] Lefty Sousa MD Medication Refill 12/16/2024 11:30 AM CDT Lab [facility] [address] [address] [facility]el[facility]rolifer[facility] (HCC) 12/16/2024 10:45 AM CDT Office Visit [facility] [address] [address] Marianela Chan, GAS COMPRESSOR TURBINE OPERATOR, ROBIN Myeloproliferative disease (HCC) (Primary Dx); Iron deficiency anemia, unspecified iron deficiency anemia type; Anemia, unspecified type 12/16/2024 Travel 11/07/2024 Refill [facility] [address] [address] Lefty Sousa MD Medication Refill from Last 3 Months Immunizations Immunization Administration Dates Next Due Covid-19, Mrna, Lnp-s, Pf, Lam-sucrose, 30 Mcg/0.3 Ml (Daily Secret) 05/13/2023 Influenza Vaccine, Quadrivalent, PF 05/03,06/17/2022,05/17/2021,04/29,05/20/2017,09/23/2016,08/21/2015 Influenza Vaccine,unspecifie d Formulation 06/02/2022 Influenza, Injectable, Mdck, Preservative Free 04/25/2024 Influenza, Injectable, Quadrivalent 06/14/2019 Influenza, Seasonal, Injecta ble, Undefined 05/17/2019,04/29/2018 Pneumococcal Vaccine Adult - 23 Valent 7,08/21/2015,01/23/2015 Pneumococcal conjugate PCV20 , polysaccharide VNC021 conjugate, adjuvant, PF 06/16/2023 RSV, Recombinant, Protein Horton bunit Rsvpref, Adjuvant Recon (Arexvy) 07/17/2023 TDAP Vaccine 02/09/2017 Zoster Vaccine Recombinant 01/02/2022,11/03/2021 Family History Medical History Relation Name Comments Diabetes Father Stroke Mother Relation Name Status Comments Father Mother Social History Tobacco Use Types Packs/Day Years Used Date Smoking Tobacco: Every Day Cigarettes 1 50.5 Started: 08/03/1974 Smokeless Tobacco: Never Tobacco Cessation:Ready to Q uit: Not Asked; Counseling Given: Not Answered Alcohol Use Standard Drinks/Week Comments No 0 (1 standard drink = 0.6 oz pur e alcohol) PHQ-2 Answer Date Recorded Total Score - Questions 1-9 0 02/01 Sex and Gender Information Value Date Recorded Sex Assigned at Not on file 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 Gender Identity Not on file Sexual [...] Visit [facility] [address] [place] [address] Lefty Sousa MD [address] [place] [address] Health Maintenance Due Date Last Done Comments Diabetes: Eye Exam 1961 Diabetes: Foot Exam 1961 Hepatitis C Virus (HCV) Screening 1961 Cologuard 2006 Immunochemical Fecal Occult Blood 2006 PSA Discussion 01/06/2016 Lung Cancer Screening 06/18/2024 06/18/2023 , 06/18/2023, 01/04/2021, Additional history exists SARS-COV-2 Immunization (7 - Pfizer risk season) 2024 04/25/2024, 05/27/2023, 05/13/2023, Additional history exists Diabetes: Hemoglobin A1c 03/01/2025 025, 04/21/2024, 03/08/2024, Additional history exists Influenza Immunization (#1) 04/03/20252 10/2023, 05/14/2023, 06/17/2022, Additional history exists Diabetes: Nephropathy Screening 12/16/2025 12/16/2024, 09/09/2024, 06/10/2024, Additional history exists Td Immunization Every 10 Years (Adults With 1 Tdap) 02/09/2027 02/09/2017 Colonoscopy 11/28/2031 11/27/2021, 10/05/2018 Colorectal Cancer Screening 11/28/2031 DTaP/Tdap/Td Immunization Discontinued 02/09/2017 Zoster Immunization Completed 01/02/2022, Pneumococcal Immunization (50+ years) Completed 06/16/2023, 02/09/2017, 08/21/2015, Additional history exists Pneumococcal Immunization Combined Discontinued 06/16/2023, 02/09/2017, 08/21/2015, Additional history exists Respiratory Syncytial Virus (RSV) Immunization (Adult) Completed 07/17/2023 Hepatitis B Immunization Aged Out No longer [...] CDT) LDH 139(L) 140 - 271 U/L [facility] Blood 12/16/2024 11:3 0 AM CDT Narrative [facility] - 12/16/2024 12:26 PM CDT Release to patient->Immediate Marianela Chan APRN, ASSISTANT INVENTORY MANAGER CHEMISTRY ORDERABLES Final Result [facility] LEAD SUPPLY WORKER [facility] [place] [place] [address], * (ABNORMAL) CMP (COMPREHENSIVE METABOLIC PANEL) (12/16/2024 11:30 AM CDT) Glucose 196(H) 70 - 105 mg/dL [facility] Blood Urea Nitrogen 30(H) 7 - 25 mg/dL [facility] LEAD SUPPLY WORK[facility] Creatinine 1.6(H) 0.7 - 1.3 mg/dL [facility] Sodium 138 136 - 145 mEq/L [facility] Potassium 4.4 3.5 - 5.1 mEq/L [facility] Chloride 108(H) 98 - 107 mEq/L [facility] Bicarbonate 26 21 - 31 mEq/L [facility] Total Bilirubin 0.3 0.3 - 1.0 mg/dL [facility] Alk. Phosphatase 80 34 - 104 U/L [facility] Aspartate Aminotransferase 12(L) 13 - 39 U/L [facility] Alanine Aminotransferase 17 7 - 52 U/L [facility] Total Protein 6.9 6.4 - 8.9 g/dL [facility] Albumin 4.4 3.5 - 5.7 g/dL [facility] Calcium 11.4(H) 8.6 - 10.3 mg/dL [facility] Anion Gap 8.4 7.0 - 15.0 mEq/L [facility] Globulin 2.5 2.0 - 3.5 g/dL [facility] EGFR 48(L) >60 ml/min/1. 73m2 [facility] Comment: This eGFR is calculated using 2020 CKD-EPI Creatinine equation without race modifier based on the NKF-ASN task force recommendations Equation: jUDH=033*min(SCr/k,1)a*max(SCr/k,1)-1.200*0.9938Age*1.012 (if female), where SCr is serum creatinine, k is 0.7 for females and 0.9 for males, and a is -0.241 for females and -0.302 for males Blood 12/16/2024 11:3 0 AM CDT Narrative [facility] - 12/16/2024 12:26 PM CDT Release to patient->Immediate IS THE PATIENT REQUIRED TO BE FASTING FOR 8 HOURS?->No us Marianela Chan GAS COMPRESSOR TURBINE OPERATOR, ASSISTANT INVENTORY MANAGER CHEMISTRY ORDERABLES Final Result CANCER LEAD SUPPLY WORKER [facility] [place] [address], * (ABNORMAL) COMPLETE BLOOD COUNT (CBC) WITH DIFF (12/16/2024 11:30 AM CDT) WBC 12.5(H) 4.0 - 10.0 10*3/uL CANCER LEAD SUPPLY WORKER [facility] HGB 13.3(L) 13.7 - 17.5 g/dL CANCER LEAD SUPPLY WORKER [facility] HCT 40.7 40.1 - 51.0 % CANCER LEAD SUPPLY WORKER [facility] PLT 341 163 - 369 10*3/uL CANCER LEAD SUPPLY WORKER [facility] MPV 10.0 9.4 - 12.4 fL CANCER LEAD SUPPLY WORKER [facility] RBC 3.89(L) 4.63 - 6.08 10*6/uL CANCER LEAD SUPPLY WORKER [facility] MCV 105(H) 79 - 95 fL CANCER LEAD SUPPLY WORKER [facility] MCH 34.2(H) 25.6 - 32.2 pg CANCER LEAD SUPPLY WORKER [facility] MCHC 32.7 32.2 - 36.5 g/dL CANCER LEAD SUPPLY WORKER [facility] RDW 13.7 11.6 - 14.4 % CANCER LEAD SUPPLY WORKER [facility] Absolute Neutrophil Count 6,766 cells/uL [facility] Absolute Seg Count 6,766(H) 1,440 - 6,600 cells/uL CANCER LEAD SUPPLY WORKER [facility] Absolute Lymph Count 4,135(H) 760 - 4,000 cells/uL [facility] Absolute [place] Count 1,002 160 - 1,200 cells/uL CANCER LEAD SUPPLY WORKER [facility] Absolute Eos Count 501(H) 0 - 300 cells/uL [facility]ER LEAD SUPPLY WORKER [facility] Absolute Baso Count 125(H) 0 - 100 cells/uL CANCER LEAD SUPPLY WORKER [facility] Segmented Neutrophils 54 36 - 66 % CANCER LEAD SUPPLY WORKER [facility] Lymphocytes 31 19 - 40 % [facility] Monocytes 8 4 - 12 % [facility] Eosinophils 4(H) 0 - 3 % [facility] Basophils 1 0 - 1 % [facility] Atypical Lymphs 2 0 - 2 % CANC ER LEAD SUPPLY WORKER [facility] WBC Estimate High CANCER LEAD SUPPLY WORKER [facility] Platelet Estimate Normal CANCER LEAD SUPPLY WORKER OF [facility] RBC Morphology Abnormal CANCE R LEAD SUPPLY WORKER [facility] Macrocytosis 1+ CANCER LEAD SUPPLY WORKER [facility] Blood 12/16/2024 11:3 0 AM CDT Narrative CANCER LEAD SUPPLY WORKER [facility] - 12/16/2024 1:30 PM CDT Release to patient->Immediate us Marianela Chan GAS COMPRESSOR TURBINE OPERATOR, ASSISTANT INVENTORY MANAGER HEMATOLOGY ORDERABLES Final Result CANCER LEAD SUPPLY WORKER [facility] [address] [place] [id number], [place] [phone] * CT CHEST W/O CONTRAST (01/04/2021 10:14 [...] Insurance MEDICAID [employer] Care Teams Heat Treat Inspector Relationship Specialty Start Date End Date Dina Cloud PAC [address] [place] [address] PCP - General Physician Awning Spreader 05/25/20 Lefty Sousa MD [address] [place] [phone] Consulting Physician Hematology and Oncology 01/03/21
--- OUTSIDE RECORDS SUMMARY | 2025-02-01 00:04 | XMS_ITS | Encounter Summary ---
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 Gender Identity Not on file Sexual Orientation [...] Visit [facility] [address] [place] [address] Lefty Sousa MD [address] [place] [address] [address] documented as of this encounter Visit Diagnoses Diagnosis Anemia, unspecified type documented in this encounter Additional Health Concerns Assessment Noted Time PHQ-9 Depression Total Score: 0 04/26/20 9:02 AM CDT documented as of this encounter Care Teams Hydrotel Operator Relationship Specialty Start Date End Date Dina Cloud PAC [address] [place] [id number] PCP - General Physician Improvement Specialist 05/25/20 Lefty Sousa MD [address] [place] [phone] Consulting Physician Hematology and Oncology 01/03/21 documented as of this encounter
--- OUTSIDE RECORDS SUMMARY | 2025-02-01 00:04 | XMS_ITS | Encounter Summary ---
Author Organization [facility] Address [facility] [place] [address] Care Team Providers Care Rinkman Name Role Phone Joseph Ann MD Unavailable [phone] Chai Junior MD Unavailable Kulwant Felix MD Primary Care Provider [phone] Annie Chavez MD Primary Care Provider [phone] Ramandeep Ann Primary Care Provider [phone] Dina Cloud PA-C Primary Care Provider [phone] Encounter Details Date Type Department Care Team (Late st Contact Info) Description 06/10/2017 Abstract [facility] [address] [address] Baudilio Sewell MA Social History Tobacco Use [...] PG pt send letter continue current meds TOR MACHINE OPERATOR documented in this encounter Plan [...] MRSA 03/09/2017 03/09/2017 10/05/2018 12:4 0 PM VOTATOR MACHINE OPERATOR documented as of this encounter Care Teams Rinkman Relationship Specialty Start Date End Date Kulwant Felix MD [address] [address] PCP - General 03/17/17 08/02/17 Annie Chavez MD [address] [address] PCP - General FAMILY PRACTICE 08/03/17 05/03/18 Ramandeep Ann FNP [address] [address] PCP - General NURSE PRACTITIONER 05/04/18 10/31/18 Dina Cluod PA-C [address] [place] [address] PCP - General NURSE PRACTITIONER 05/19/19 Joseph Ann MD [facility] [address] [place] [address] [place] Instructor Traffic Safety CARDIOVASCULAR DISEASE 01/02/16 Chai Junior MD [facility] [address] [place], [place] [id number] EP Instructor Traffic Safety CARDIOVASCULAR DISEASE 09/03/16 documented as of this encounter
--- NOTE | 2025-02-01 07:16 | P.PNAN_ITS ---
Anes - Initial Pre Proc Eval Procedure: Operation Date: 02/01/25 14:00 Proposed Procedures p Esophagogastroduodenoscopy - Benjamín He MD Date/Time: 02/01/25 07:16 Surgeon: Benjamín He MD Pre Op Diagnosis: Dysphagia, unspecified Patient Data Age: 65 Gender: M Height: 1.73 m Weight: 102 kg Allergies Allergy/AdvReac Type Severity Reaction Status Date / Time Penicillins Allergy Unknown Other Verified 02/01/25 08:57 Home Medications ?Medication ?Instructions ?Recorded ?Confirmed ?Type amitriptyline 100 mg tablet 100 mg PO HS 03/12/20 02/01/25 History atorvastatin 80 mg tablet 80 mg PO HS 03/12/20 02/01/25 History clopidogrel 75 mg tablet 75 mg PO DAILY 03/12/20 02/01/25 History ergocalciferol (vitamin D2) 1,250 1,250 mcg PO WEEKLY 03/12/20 02/01/25 History mcg (50,000 unit) capsule folic acid 1 mg tablet 1 mg PO DAILY 03/12/20 02/01/25 History levetiracetam 250 mg tablet 250 mg PO TID 03/12/20 02/01/25 History aspirin 81 mg chewable tablet 81 mg PO DAILY 05/28/20 02/01/25 History blood-glucose sensor (Dexcom G7 02/23/23 12/08/24 History Sensor device) blood-glucose,tire mounter,cont 02/23/23 12/08/24 History (Dexcom G7 Waste Water Worker) empagliflozin 10 mg tablet 10 mg PO DAILY 02/23/23 02/01/25 History (Jardiance) famotidine 20 mg tablet 20 mg PO BID 02/23/23 02/01/25 History hydrocodone 10 mg-acetaminophen 1 tablet PO Q8H pain 02/23/23 02/01/25 History 325 mg tablet oxybutynin chloride 15 mg 15 mg PO DAILY 02/23/23 02/01/25 History tablet,extended release 24 hr tamsulosin 0.4 mg capsule 0.4 mg PO HS 02/23/23 02/01/25 History gabapentin 600 mg tablet 600 mg PO TID 09/16/24 02/01/25 History dulaglutide 3 mg/0.5 mL 3 mg subcut WEEKLY 10/17/24 02/01/25 History subcutaneous pen injector (Trulicity) duloxetine 30 mg capsule,delayed 30 mg PO DAILY 10/17/24 02/01/25 History release hydroxyurea 500 mg capsule 500 mg PO DAILY 10/17/24 02/01/25 History metoprolol succinate 25 mg 25 mg PO DAILY 10/17/24 02/01/25 History tablet,extended release 24 hr pen needle, diabetic 31 gauge x 10/17/24 12/08/24 History 5/16 (TRUEplus Pen Needle) sildenafil 100 mg tablet 100 mg PO Q24H PRN as needed 10/17/24 01/19/25 History hydrochlorothiazide 12.5 mg capsule 12.5 mg PO QAM 30 days #30 caps 10/19/24 02/01/25 Rx pantoprazole 40 mg tablet,delayed 40 mg PO QAM #30 tabs 12/08/24 02/01/25 Rx release sucralfate 100 mg/mL oral See Rx Instructions .Route 12/14/24 02/01/25 Rx suspension .COMPLEX #1,200 mL Patient hx anesthesia problems: none Family hx anesthesia problems: none Results Review: All pre-operative results and documents have been reviewed as part of the pre- operative evaluation. [facility] Past Medical History Medical History (Updated 02/01/25 @ 04:48 by Tommie Vazquez DO) Leukemia History of heart attack Pacemaker Prostate abscess Chronic anemia Chronic obstructive pulmonary disease Tobacco dependence Type 2 diabetes mellitus 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 January 2019: Left parietooccipital CVA presenting with confusion and aphasia. Hard of hearing Chronic lower back pain Blood dyscrasia Blood dyscrasia versus malignancy; followed by a embossing calender operator in [place]. Obstructive sleep apnea Refuses CPAP. Chronic kidney disease, stage 3 Baseline creatinine is around 1.4. Vitamin D deficiency Coronary artery disease Patient reports history of 2 MIs; no history of cardiac catheterization. 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 Surgical History Surgical History History of back surgery History of permanent cardiac pacemaker placement Due to sick sinus rhythm. History of transurethral resection of prostate History of hernia surgery Family History Family History Mother Cerebrovascular accident Acute myocardial infarction Hypertension Father Diabetes mellitus Cerebrovascular accident Hypertension Social History Social History Social History: Surrogate decision maker: Darling Rivers (sister). Code status: Full code. Smoking packs per day: 1 Smoking cigarettes per day: 20.0 Years smoked: 45 Smoking pack-years: 45.00 Smoking status: Current every day smoker Tobacco type: cigarettes Second hand tobacco smoke exposure: Yes Alcohol intake: current Drinks per week: 1 Substance use: current Substance use type: marijuana and crack/cocaine Other substance usage details: daily Last use: 11/2024 Do You Feel Safe in your Home?: Yes Lack of Transportation: YES Lack of Food: Never True Current Housing: I Have Housing Concerned About Future Housing: No Difficulty Paying Gas/Electric Bills: No Difficulty Paying for Meds: No Currently Unemployed: YES Education: Don't Know Difficulty w/ Childcare or Family Care: No Living arrangements: alone Additional living arrangements comments: The patient lives in his own apartment in [place]. Occupation/Education: unemployed Additional occupation/education comments: On disability. Spiritual care concerns: No Anes - Eval Final PreProcedure Day of Procedure 02/01/25 07:16 Patient weight: obese Heart: regular rate and rhythm Lungs: clear to auscultation Airway: Mallampati scale class II Neurological: alert and oriented Last oral intake: >/= 8 hours ASA classification: III Emergent: no Anesthetic plan: proceed Anesthesia type and monitoring: general GIVS and standard monitoring Results Review: All pre-operative results and documents have been reviewed as part of the pre- operative evaluation. Informed Consent: The patient's anesthetic plan and its attendant risks and benefits were discussed with the patient/family/POA. Questions were solicited and answers provided to the satisfaction of the patient/family/POA.
[2025-02-01 09:01] VITALS: BP 154/86; PULSE 89; RESP 18; TEMP 36.4; O2SAT 100; BMI 33.5
[2025-02-01] MEDS: LACTATED RINGERS 1,000 ML 150 ML IV CONT (09:13)
[2025-02-01] MEDS: SIMETHICONE ORAL SUSPENSION 20 MG/0.3 ML 30 ML BOTTLE 1.8 ML PO (09:15)
--- NOTE | 2025-02-01 09:26 | SUR.PREOP ---
Patient reports that he is unsure when last does of Plavix was. States that he believes it was a couple days ago. This RN then informed pt that it should have been held starting 01/26 according to the paperwork. Pt then stating that he believes he held it starting then. Dr. He notified and okay to still proceed with procedure.
--- NOTE | 2025-02-01 09:31 | P.HP_ITS ---
H&P: HPI History of Present Illness Date/Time: 02/01/25 09:31 Chief Complaint: odynophagia Narrative: patient with multiple comorbidities, was hospitalized in October this year for pneumonia. Since then, he has been complaining of dysphagia/odynophagia. He has suffered from reflux several years. Referred now for EGD Review of Systems Review of Systems: All systems reviewed & are unremarkable except as noted in HPI and below PMFSH Past Medical History Medical History (Updated 02/01/25 @ 04:48 by Tommie Vazquez, ) Leukemia History of heart attack Pacemaker Prostate abscess Chronic anemia Chronic obstructive pulmonary disease Tobacco dependence Type 2 diabetes mellitus Cerebrovascular accident 2015: Right frontoparietal CVA with left hemiparesis. January 2019: Left parietooccipital CVA presenting with confusion and aphasia. Hard of hearing Chronic lower back pain Blood dyscrasia Blood dyscrasia versus malignancy; followed by a educational interpreter in [place]. Obstructive sleep apnea Refuses CPAP. Chronic kidney disease, stage 3 Baseline creatinine is around 1.4. Vitamin D deficiency Coronary artery disease Patient reports history of 2 MIs; no history of cardiac catheterization. 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 Surgical History Surgical History History of back surgery History of permanent cardiac pacemaker placement Due to sick sinus rhythm. History of transurethral resection of prostate History of hernia surgery Family History Family History Mother Cerebrovascular accident Acute myocardial infarction Hypertension Father Diabetes mellitus Cerebrovascular accident Hypertension Social History Social History Social History: Surrogate decision maker: Darling Rivers (sister). Code status: Full code. Smoking packs per day: 1 Smoking cigarettes per day: 20.0 Years smoked: 45 Smoking pack-years: 45.00 Smoking status: Current every day smoker Tobacco type: cigarettes Second hand tobacco smoke exposure: Yes Alcohol intake: current Drinks per week: 1 Substance use: current Substance use type: marijuana and crack/cocaine Other substance usage details: daily Last use: 11/2024 Do You Feel Safe in your Home?: Yes Lack of Transportation: YES Lack of Food: Never True Current Housing: I Have Housing Concerned About Future Housing: No Difficulty Paying Gas/Electric Bills: No Difficulty Paying for Meds: No Currently Unemployed: YES Education: Don't Know Difficulty w/ Childcare or Family Care: No Living arrangements: alone Additional living arrangements comments: The patient lives in his own apartment in [place]. Occupation/Education: unemployed Additional occupation/education comments: On disability. Spiritual care concerns: No Meds Home Medications and Allergies Home Medications ?Medication ?Instructions ?Recorded ?Confirmed ?Type amitriptyline 100 mg tablet 100 mg PO HS 03/12/20 02/01/25 History atorvastatin 80 mg tablet 80 mg PO HS 03/12/20 02/01/25 History clopidogrel 75 mg tablet 75 mg PO DAILY 03/12/20 02/01/25 History ergocalciferol (vitamin D2) 1,250 1,250 mcg PO WEEKLY 03/12/20 02/01/25 History mcg (50,000 unit) capsule folic acid 1 mg tablet 1 mg PO DAILY 03/12/20 02/01/25 History levetiracetam 250 mg tablet 250 mg PO TID 03/12/20 02/01/25 History aspirin 81 mg chewable tablet 81 mg PO DAILY 05/28/20 02/01/25 History blood-glucose sensor (Dexcom G7 02/23/23 12/08/24 History Sensor device) blood-glucose,bottle washer machine,cont 02/23/23 12/08/24 History (Dexcom G7 [facility]) empagliflozin 10 mg tablet 10 mg PO DAILY 02/23/23 02/01/25 History (Jardiance) famotidine 20 mg tablet 20 mg PO BID 02/23/23 02/01/25 History hydrocodone 10 mg-acetaminophen 1 tablet PO Q8H pain 02/23/23 02/01/25 History 325 mg tablet oxybutynin chloride 15 mg 15 mg PO DAILY 02/23/23 02/01/25 History tablet,extended release 24 hr tamsulosin 0.4 mg capsule 0.4 mg PO HS 02/23/23 02/01/25 History gabapentin 600 mg tablet 600 mg PO TID 09/16/24 02/01/25 History dulaglutide 3 mg/0.5 mL 3 mg subcut WEEKLY 10/17/24 02/01/25 History subcutaneous pen injector (Trulicity) duloxetine 30 mg capsule,delayed 30 mg PO DAILY 10/17/24 02/01/25 History release hydroxyurea 500 mg capsule 500 mg PO DAILY 10/17/24 02/01/25 History metoprolol succinate 25 mg 25 mg PO DAILY 10/17/24 02/01/25 History tablet,extended release 24 hr pen needle, diabetic 31 gauge x 10/17/24 12/08/24 History 5/16 (TRUEplus Pen Needle) sildenafil 100 mg tablet 100 mg PO Q24H PRN as needed 10/17/24 01/19/25 History hydrochlorothiazide 12.5 mg capsule 12.5 mg PO QAM 30 days #30 caps 10/19/24 02/01/25 Rx pantoprazole 40 mg tablet,delayed 40 mg PO QAM #30 tabs 12/08/24 02/01/25 Rx release sucralfate 100 mg/mL oral See Rx Instructions .Route 12/14/24 02/01/25 Rx suspension .COMPLEX #1,200 mL insulin glargine 100 unit/mL (3 40 unit subcut QPM 02/01/25 02/01/25 History mL) subcutaneous pen (Lantus Solostar U-100 Insulin) insulin lispro 100 unit/mL subcut 02/01/25 History subcutaneous pen Allergies Allergy/AdvReac Type Severity Reaction Status Date / Time Penicillins Allergy Unknown Other Verified 02/01/25 08:57 Vital Signs Vital Signs - 24 hr 02/01/25 09:01 Temperature 97.6 F Pulse Rate 89 Respiratory Rate 18 Blood Pressure 154/86 H Pulse Oximetry 100 Oxygen Delivery Room Air Exam Const: General: cooperative and healthy appearing Resp: Effort & Inspection: normal respiratory effort and able to speak in c omplete sentences Auscultation: clear to auscultation bilaterally Cardio: Rate: regular rate Rhythm: regular rhythm GI: Inspection: normal to inspection GI Palp: No No hepatosplenomegaly present Auscultation: normal bowel sounds Rectal Exam: deferred Skin: General skin exam: normal color Psych: Appearance: grossly normal Mental Status: mental status grossly normal Assessment and Plan Assessment and plan (1) Odynophagia: Code(s): R13.10 - Dysphagia, unspecified Status: Acute Assessment and Plan: The patient is deemed a good candidate for the procedure. Consent signed. Will proceed.
[2025-02-01 09:47] VITALS: BP 156/81; PULSE 84; RESP 13; O2SAT 100
[2025-02-01 09:57] VITALS: BP 135/71; PULSE 81; RESP 13; O2SAT 98
[2025-02-01 10:07] VITALS: BP 147/69; PULSE 79; RESP 12; O2SAT 98
== END 2025-02-01 10:15 | disposition home or self-care (01) ==
PROVIDERS: PCP Physician Assistant; Referring Provider Nurse Practitioner; Visit Provider Internal Medicine Gastroenterology
PROC: 0DJ08ZZ Inspection of Upper Intestinal Tract, Via Natural or Artificial Opening Endoscopic (ICD-10-PCS; CPT 43235; principal; 2025-02-01 14:00)
DX: R13.10 Dysphagia, unspecified (principal); K31.84 Gastroparesis; K21.9 Gastro-esophageal reflux disease without esophagitis; Z79.02 Long term (current) use of antithrombotics/antiplatelets; F17.210 Nicotine dependence, cigarettes, uncomplicated; F14.90 Cocaine use, unspecified, uncomplicated
CPT/HCPCS: 43235; 82948; J2003; J2704; J7120

== ENCOUNTER 2025-04-19 01:10 | Day surgery (SDC) | payer OTHER, SELFPAY ==
[2025-04-11 12:59] VITALS: BMI 33.2
--- NOTE | 2025-04-11 13:16 | SUR.PREOP ---
Spoke with patient and his caregiver in regards to his plavix. Both verbalized understanding that last dose is to be taken 04/11/2025. Endoscopist will inform when to resume.
--- OUTSIDE RECORDS SUMMARY | 2025-04-19 01:13 | XMS_ITS | Encounter Summary ---
Author Organization [facility] Address [address] [place] [address] Care Team Providers Care Saas Architect Name Role Phone Dina Cloud PA-C Primary Care Provider Reason for Visit * Reason Onset Date Comments Question 02/25/2022 Encounter Details Date Type Department Care Team (Late st Contact Info) Description 02/25/2022 Telephone [facility] [address] [place] [address] Dina Cloud PA-C [address] [place] [address] Question Social History Tobacco Use Types Packs/Day Years Used Date Smoking Tobacco: Every Day Cigarettes Smokeless Tobacco: Never Comments:using patches Alcohol Use Standard Drinks/Week Comments Yes 0 (1 standard drink = 0.6 oz pur e alcohol) Sex and Gender Information Value Date Recorded Sex Assigned at Not on file Legal Sex Male 5:17 PM EYEGLASS FITTER Gender Identity Not on file Sexual Orientation Not on file documented as of this encounter Miscellaneous Notes * Telephone Encounter - Ken Cyndie Moser - 02/25/2022 9:51 AM CDT Current Provider [...] arification on request. Patient Call Back number: [phone] documented in this encounter Plan of Treatment Upcoming Encounters Date Type Department Care Team (Late st Contact Info) Description 04/27/2025 9:45 AM CDT Office Visit [facility] - Urology [address] [place] [address] Josy Davila DO [address] [place] [address] 2L DIV [place] [phone] 05/25/2025 10:00 AM CDT Procedure visit [facility] - Dermatology [address] [place] [address], [place] [address] Robb Howell MD [address] [place] [address] 3L [place] [address] 05/30/2025 9:00 AM CDT Office Visit [facility] - Neurology [address] [place] [address], [place] [address] Meredith Weiss MD [address] [place] [address] 1L [place] [id number] 06/15/2025 10:20 AM EYEGLASS FITTER Appointment [facility] [address] [place] [address] Becca Ford MD [address] [place] [address] 2L DIV OF GEN [place] [address] 07/05/2025 1:00 PM EYEGLASS FITTER Procedure visit [facility] - Endocrinology [address] [place] [address], [place] [address] Greg Obrien MD [address] [place] [address] 2L [place] [address] 07/18/2025 1:10 AM EYEGLASS FITTER Clinical Support [facility] - Cardiology [address] [facility] [address] [place] [address] 08/04/2025 8:20 AM EYEGLASS FITTER Office Visit [facility] - Dermatology [address] [place] [address], [place] [address] Robb Howell MD [address] [place] [address] [address] [place] [address] 08/22/2025 3:40 PM EYEGLASS FITTER Office [facility] End[facility] [address] [place] [address], [place] [address] Garry Tracey MD [address] [place] [address] 2[address] DIV [place] [address] 09/28/2025 10:00 AM EYEGLASS FITTER Office Visit [facility] - Nephrology [address] [place] [phone] Nataliia Cooper MD [address] [place] [address] 3L [place] [address] 10/05/2025 3:30 PM EYEGLASS FITTER Office Visit [facility] - Pulmonology [address] [place] [phone] Becca Ford MD [address] [place] [address] 2L DIV OF GEN [place] [address] 10/24/2025 9:00 AM CDT Office Visit [facility] - Cardiology [address] [facility] [address] [place] [address] Daily Bravo MD [address] [facility] [address] [place] [address] 04/10/2026 9:30 AM CDT Office Visit [facility] - Ophthalmology [address] [place] [phone] Jameson Martin, LELA [address] [place] [address] documented as of this encounter Visit Diagnoses Not on filedocumented in this encounter Care Teams Saas Architect Relationship Specialty Start Date End Date Dina Cloud PA-C [address] [place] [phone] PCP - General Physician Sock Lining Stitcher 07/10/20 documented as of this encounter
--- OUTSIDE RECORDS SUMMARY | 2025-04-19 01:13 | XMS_ITS | Encounter Summary ---
Author Organization [facility] Address [address] [place] [address] Phone Care Team Providers Care Senior Mainframe Programmer Analyst Name Role Phone Dina Cloud PAC Primary Care Provider + [phone] Lefty Sousa MD Unavailable [phone] Reason for Visit * Reason Comments Medication Refill Encounter Details Date Type Department Care Team (Late st Contact Info) Description 12/20/2023 Refill [facility] [address] [place] [address] Lefty Sousa MD [address] [address] Medication Refill Social History Tobacco Use Types Packs/Day Years Used Date Smoking Tobacco: Every Day Cigarettes 1 50.7 Started: 08/03/1974 Smokeless Tobacco: Never Alcohol Use Standard Drinks/Week Comments No 0 (1 standard drink = 0.6 oz pur e alcohol) PHQ-2 Answer Date Recorded Total Score - Questions 1-9 0 02/01 Sex and Gender Information Value Date Recorded Sex Assigned at Not on file Legal Sex Male 11:32 AM DIESEL AUTOMOTIVE TECHNICIAN Gender Identity Not on file Sexual Orientation Not on file documented as of this encounter Miscellaneous Notes * Telephone Encounter - Norma Bond RN - 12/21/2023 7:59 AM CDT Please refill if appropriate documented in this encounter Plan of Treatment Upcoming Encounters Date Type Department Care Team (Late st Contact Info) Description 06/16/2025 10:45 AM DIESEL AUTOMOTIVE TECHNICIAN Office Visit [facility] [address] [place] [address] Lefty Sousa MD [address] [place] [address] [address] documented as of this encounter Visit Diagnoses Diagnosis Anemia, unspecified type documented in this encounter Additional Health Concerns Assessment Noted Time PHQ-9 Depression Total Score: 0 04/26/20 9:02 AM CDT documented as of this encounter Care Teams Senior Mainframe Programmer Analyst Relationship Specialty Start Date End Date Dina Cloud PAC [address] [place] [id number] PCP - General Physician Engineer Operations And Maintenance 05/25/20 Lefty Sousa MD [address] [place] [phone] Consulting Physician Hematology and Oncology 01/03/21 documented as of this encounter
--- OUTSIDE RECORDS SUMMARY | 2025-04-19 01:13 | XMS_ITS | Encounter Summary ---
Author Organization [facility] Health Address [address] [place] [address] Care Team Providers Care Lap Runner Name Role Phone Dina Cloud PA-C Primary Care Provider Encounter Details Date Type Department Care Team (Late st Contact Info) Description 01/28/2023 Telephone [facility] - Centralized Scheduling [address] [place] [address] Garry Tracey MD [address] [place] [address] Social History Tobacco Use Types Packs/Day Years Used Date Smoking Tobacco: Every Day Cigarettes Smokeless Tobacco: Never Alcohol Use Standard Drinks/Week Comments Yes 0 (1 standard drink = 0.6 oz pur e alcohol) occ PHQ-2 Answer Date Recorded PHQ2 TOTAL SCORE 0 09/29/2022 Sex and Gender Information Value Date Recorded Sex Assigned at Not on file Legal Sex Male 5:17 PM DIRECTOR GEOTHERMAL OPERATIONS Gender Identity Not on file Sexual Orientation [...] glucose levels for 13 days ?? Verified: [phone] Lexi Caregiver documented in this encounter Plan of Treatment Upcoming Encounters Date Type Department Care Team (Late st Contact Info) Description 04/27/2025 9:45 AM CDT Office Visit [facility] - Urology [address] [place] [address] [address] [place] [phone] Josy Davila DO [address] [place] [address] 2L [place] [address] 05/25/2025 10:00 AM CDT Procedure visit [facility] - Dermatology [address] [place] [address], [place] [phone] Robb Howell MD [address] [place] [address] 3L [place] [address] 05/30/2025 9:00 AM CDT Office Visit [facility] - Neurology [address] [place] [address], [place] [phone] Meredith Weiss MD [address] [place] [address] 1L [place] [address] 06/15/2025 10:20 AM DIRECTOR GEOTHERMAL OPERATIONS Appointment [facility] CAT SCAN [address] [place] [phone] Becca Ford MD [address] [place] [address] 2L DIV [place] [address] 07/05/2025 1:00 PM DIRECTOR GEOTHERMAL OPERATIONS Procedure visit [facility] - Endocrinology [address] [place] [address], [place] [address] Greg Obrien MD [address] [place] [address] 2L [place] [address] 07/18/2025 1:10 AM DIRECTOR GEOTHERMAL OPERATIONS Clinical Support [facility] - Cardiology [address] [phone] 08/04/2025 8:20 AM DIRECTOR GEOTHERMAL OPERATIONS Office Visit [facility] - Dermatology [address] [place] [phone] Robb Howell MD [address] [place] [address] 3L [place] [address] 08/22/2025 3:40 PM DIRECTOR GEOTHERMAL OPERATIONS Office Visit [facility] - Endocrinology [address] [place] [phone] Garry Tracey MD [address] [place] [address] 2L [place] [address] 09/28/2025 10:00 AM DIRECTOR GEOTHERMAL OPERATIONS Office Visit [facility] - Nephrology [address] [place] [phone] Nataliia Cooper MD [address] [place] [address] 3L [place] [address] 10/05/2025 3:30 PM DIRECTOR GEOTHERMAL OPERATIONS Office Visit [facility] - Pulmonology [address] [place] [phone] Becca Ford MD [address] OF [facility] [place] [address] 10/24/2025 9:00 AM CDT Office Visit [facility] - Cardiology [address] [facility], [address] [address] Daily Bravo MD [address] [address] 04/10/2026 9:30 AM CDT Office Visit [facility] - Ophthalmology [address] [place] [phone] Jameson Martin OD [address] [place] [address] documented as of this encounter Visit Diagnoses Not on filedocumented in this encounter Care Teams Lap Runner Relationship Specialty Start Date End Date Dina Cloud PA-C [address] [place] [phone] PCP - General Physician Diet Clerk 07/10/20 documented as of this encounter
--- OUTSIDE RECORDS SUMMARY | 2025-04-19 01:13 | XMS_ITS | Encounter Summary ---
Author Organization [facility] Health Address [address] [facility] [place] [address] Care Team Providers Care Pear Picker Name Role Phone Dina Cloud PA-C Primary Care Provider Encounter Details Date Type Department Care Team (Late st Contact Info) Description 09/04/2023 Telephone [facility] - Neurology [address] [facility], [facility] [place] [address] Meredith Weiss MD [facility] [place] [address] Social History Tobacco Use Types Packs/Day Years Used Date Smoking Tobacco: Every Day Cigarettes 1 51.7 Started: 1972 Smokeless Tobacco: Never Comments:06/25 1/ ppd Alcohol Use Standard Drinks/Week [...] on file Legal Sex Male 5:17 PM EQUIPMENT MANAGER Gender Identity Not on file Sexual Orientation Not on file documented as of this encounter Miscellaneous Notes * Telephone Encounter - Osbaldo Perdomo MA - 09/04/2023 1:54 PM CST I spoke with this patient's caregiver who stated that they have not been able to picking crew supervisor this patient's Gabapentin [address] Weiss renewed this prescription on 09/02/2023 and this patient's pharmacy confirmed a receipt of this prescription. I called this patient's pharmacy ([facility] in [place], [place]) and the manager pharmacy claimed that they did not have a copy of the prescription. I then called in the prescription as prescribed by Dr. Weiss. PMENT MANAGER * Telephone Encounter - Bess Boss - 09/04/2023 12:04 PM CST Patient called in requesting a Med refill. Drug type:gabapintine 300 mg Completely out now Pharmacy:[facility] Patient call back number: [phone] . PMENT MANAGER documented in this encounter Plan of Treatment Upcoming Encounters Date Type Department Care Team (Late st Contact Info) Description 04/27/2025 9:45 AM CDT Office Visit [facility] - Urology [address] [place] [address] [address] [place] [address] Josy Davila DO [address] [place] [address] 2L [place] [address] 05/25/2025 10:00 AM CDT Procedure visit [facility] - Dermatology [address] [place] [address], [place] [phone] Robb Howell MD [address] [place] [address] 3L [place] [address] 05/30/2025 9:00 AM CDT Office Visit [facility] - Neurology [address] [place] [address], [place] [address] Meredith Weiss MD [address] [place] [address] 1L [place] [address] 06/15/2025 10:20 AM EQUIPMENT MANAGER Appointment [facility] CAT SCAN [address] [place] [address] Becca Ford MD [address] [place] [address] 2L DIV OF [facility] [place] [address] 07/05/2025 1:00 PM EQUIPMENT MANAGER Procedure visit [facility] - Endocrinology [address] [place] [address], [place] [address] Greg Obrien MD [address] [place] [address] 2L Div [place] [address] 07/18/2025 1:10 AM EQUIPMENT MANAGER Clinical Support [facility] - Cardiology [address] [address] 08/04/2025 8:20 AM EQUIPMENT MANAGER Office Visit [facility] - Dermatology [address] [place] [address], [place] [address] Robb Howell MD [address] [place] [address] 3L [place] [address] 08/22/2025 3:40 PM EQUIPMENT MANAGER Office Visit [facility] - Endocrinology [address] [place] [address], [place] [address] Garry Tracey MD [address] [place] [address] 2L [place] [address] 09/28/2025 10:00 AM EQUIPMENT MANAGER Office Visit [facility] - Nephrology [address] [place] [address], [place] [address] Nataliia Cooper MD 12[address] [facility] 3L [place] [address] 10/05/2025 3:30 PM EQUIPMENT MANAGER Office Visit [facility] - Pulmonology [address] [place] [address] [place] [address] Becca Ford MD [facility]5 [facility] 2L DIV OF [place] [address] 10/24/2025 9:00 AM CDT Office Visit [facility] - Cardiology [address] [phone] Daily Bravo MD [address] [place] [address] 04/10/2026 9:30 AM CDT [facility] [address] [place] [phone] Jameson Martin OD [facility]5 [place] [address] documented as of this encounter Visit Diagnoses Not on filedocumented in this encounter Care Teams Pear Picker Relationship Specialty Start Date End Date Dina Cloud PA-C [address] [place] [phone] PCP - General Physician Medical Office Supervisor 07/10/20 documented as of this encounter
--- OUTSIDE RECORDS SUMMARY | 2025-04-19 01:13 | XMS_ITS | Encounter Summary ---
Author Organization [facility] Address [address] [place] [address] Care Team Providers Care Set Decorator Name Role Phone Dina Cloud PA-C Primary Care Provider Reason for Visit * Reason Onset Date Comments Med Question 02/29/2024 Encounter Details Date Type Department Care Team (Late st Contact Info) Description 02/29/2024 Telephone [facility] - General Dermatology [address], [address] [place] [address] Robb Howell MD [address] [facility] 3 [place] [address] Med Question Social History Tobacco Use Types Packs/Day Years Used Date Smoking Tobacco: Every Day Cigarettes 1 51.7 Started: 1972 Smokeless Tobacco: Never Comments:06/25 1/2 [...] on file Legal Sex Male 5:17 PM INFANTRY OPERATIONS SPECIALIST Gender Identity Not on file Sexual [...] before surgery that is scheduled for 03/16. nanny caregiver is wanting to know when should pt stop taking medication. CB# [phone] documented in this encounter Plan of Treatment Upcoming Encounters Date Type Department Care Team (Late st Contact Info) Description 04/27/2025 9:45 AM CDT Office Visit [facility] - Urology [facility]0 [facility] [address] [place] [address] Josy Davila DO 1225 [facility] 2L [place] [address] 05/25/2025 10:00 AM CDT Procedure visit [facility] - Dermatology [address] [place] [address], [place] [address] Robb Howell MD [address] [place] [address] 3L [place] [address] 05/30/2025 9:00 AM CDT [facility] [address] [place] [address], [place] [address] Meredith Weiss MD [address] [place] [address] 1L [place] [address] 06/15/2025 10:20 AM INFANTRY OPERATIONS SPECIALIST Appointment [facility] CAT SCAN [address] [place] [address] [place] [address] [place] [address] 2L DIV [place] [address] 07/05/2025 1:00 PM INFANTRY OPERATIONS SPECIALIST Procedure [facility] Endocrinology [address] [place] [address], [place] [phone] Greg Obrien MD [address] [place] [address] 2L [place] [address] 07/18/2025 1:10 AM INFANTRY OPERATIONS SPECIALIST Clinical Support [facility] Cardiology [address] [facility] [address] [place] [address] 08/04/2025 8:20 AM INFANTRY OPERATIONS SPECIALIST [facility] Dermatology [address] [place] [address], [place] [address] Robb Howell MD [address] [place] [address] 3L [place] [address] 08/22/2025 3:40 PM INFANTRY OPERATIONS SPECIALIST Office Visit [facility] - Endocrinology [address] [place] [address], [place] [address] Garry Tracey MD [address] [place] [address] 2L [place] [address] 09/28/2025 10:00 AM INFANTRY OPERATIONS SPECIALIST [facility] Nephrology [address] [place] [address], [place] [phone] Nataliia Cooper MD [address] [place] [address] 3L [place] [address] 10/05/2025 3:30 PM INFANTRY OPERATIONS SPECIALIST Office Visit [facility] - Pulmonology [address] [place] [phone] Becca Ford MD [address] [place] [address] 2L DIV [place] [address] 10/24/2025 9:00 AM CDT [facility] Cardiology [address] [place] [phone] Daily Bravo MD [address] [place] [address] 04/10/2026 9:30 AM CDT [facility] Ophthalmology [address] [place] [phone] Jameson Martin OD [address] [place] [phone] documented as of this encounter Visit Diagnoses Not on filedocumented in this encounter Care Teams Set Decorator Relationship Specialty Start Date End Date Dina Cloud PA-C [address] [place] [phone] PCP - General Physician Help Desk Technician 07/10/20 documented as of this encounter
--- OUTSIDE RECORDS SUMMARY | 2025-04-19 01:13 | XMS_ITS | Clinical Summary ---
Author Organization [facility] Address [address] [place] [address] Phone Care Team Providers Care Harpsichord Maker Name Role Phone Dina Cloud A PAC Primary Care Provider [phone] Lefty Sousa MD Unavailable [phone] Allergies Active Allergy Reactions Criticality Noted Date [...] daily. 3 7 Active ergocalciferol (VITAMIN D) 94787 UNIT Capsule TK 1 C PO Q WK 6 8 Active metoprolol Succinate (TOPROL-XL) 25 MG TABLET SR 24 HR Take 25 mg by mouth. 9 Active levETIRAcetam (KEPPRA) 250 MG Tablet [...] III SHORT PEN 31G X 8 MM [facility] USE TO INJECT INSULIN ONCE DAILY 1 [...] Continuous Blood Gluc Sensor (Dexcom G7 Sensor) [facility] 3 Active buPROPion, Smoking Deter, (ZYBAN) 150 MG TABLET SR 12 HR Take 150 mg by mouth 2 times daily. Active albuterol 108 (90 Base) MCG/ACT Aerosol Solution INHALE 2 PUFFS BY MOUTH EVERY 4 HOURS NEEDED Active gabapentin (NEURONTIN) 600 MG Tablet Patient [...] MAX OF 50 UNITS DAILY 4 Active hydroxyurea (HYDREA) 500 MG CapsuleIndicati ons:Myeloprolif erative disease (HCC) TAKE 1 CAPSULE BY MOUTH DAILY 30 Capsule 5 5 Active DULoxetine (CYMBALTA) [address] Particles Take 30 mg by mouth daily. 5 Active hydroCHLOROthia zide (MICROZIDE) 12.5 MG Capsule Take 12.5 mg by mouth. 5 Active folic acid (FOLVITE) 1 MG TabletIndicatio ns:Anemia, unspecified type TAKE 1 TABLET BY MOUTH DAILY 90 Tablet 1 5 Active Evolocumab 140 MG/ML Solution Prefilled Syringe 140 mg by Subcutaneous route. 4 Active Trulicity 3 MG/0.5ML Solution Auto-injector INJECT 3 MG UNDER THE SKIN EVERY 7 DAYS 5 Active amitriptyline (ELAVIL) 75 MG Tablet Take 75 mg by mouth. Active sucralfate (CARAFATE) 1 GM/10ML Suspension 5 Active nortriptyline (PAMELOR) 25 MG Capsule 5 Active cholecalciferol (Vitamin D-[address]) 25 mcg Tablet daily 0 Active cyanocobalamin 1000 MCG Tablet Take 1,000 mcg by mouth. 3 Active fluticasone (FLONASE) 50 MCG/ACT Suspension 2 Sprays by Nasal route. 5 Active Active Problems Problem Noted Date [...] Encounters Date Type Department Care Team Description 03/17/2025 11:20 AM CDT Lab [facility] [address] [address] Lab, [facility] Anemia, unspecified type; Myeloproliferative disease (HCC); Iron deficiency anemia, unspecified iron deficiency anemia type 03/17/2025 10:45 AM CDT Office Visit [facility] [address] [phone] Lynnette Anderson, NET PROGRAMMER, NETWORK APPLICATIONS SPECIALIST Myeloproliferative disease (HCC) (Primary Dx); Anemia, unspecified type; Iron deficiency anemia, unspecified iron deficiency anemia type; Other fatigue 03/17/2025 Travel from Last 3 Months Immunizations Immunization Administration Dates Next Due Covid-19, Mrna, Lnp-s, Pf, Lam-sucrose, 30 Mcg/0.3 Ml (Pfizer) 05/13/2023 Influenza Vaccine, Quadrivalent, PF 05/03,06/17/2022,05/17/2021,04/29,05/20/2017,09/23/2016,08/21/2015 Influenza Vaccine,unspecifie d Formulation 06/02/2022 Influenza, Injectable, Mdck, Preservative Free 04/25/2024 Influenza, Injectable, Quadrivalent 06/14/2019 Influenza, Seasonal, Injecta ble, Undefined 05/17/2019,04/29/2018 Pneumococcal Vaccine Adult - 23 Valent 7,08/21/2015,01/23/2015 Pneumococcal conjugate PCV20 , polysaccharide XCK636 conjugate, adjuvant, PF 06/16/2023 RSV, Recombinant, Protein Horton bunit Rsvpref, Adjuvant Recon (Arexvy) 07/17/2023 TDAP Vaccine 02/09/2017 Zoster Vaccine Recombinant 01/02/2022,11/03/2021 Family History Medical History Relation Name Comments Diabetes Father Stroke Mother Relation Name Status Comments Father Mother Social History Tobacco Use Types Packs/Day Years Used Date Smoking Tobacco: Every Day Cigarettes 1 50.7 Started: 08/03/1974 Smokeless Tobacco: Never Tobacco Cessation:Ready to Q uit: Yes; Counseling Given: Yes Alcohol Use Standard Drinks/Week Comments No 0 (1 standard drink = 0.6 oz pur e alcohol) PHQ-2 Answer Date Recorded Total Score - Questions 1-9 0 02/01 Sex and Gender Information Value Date Recorded Sex Assigned at Not on file Legal Sex Male 11:32 AM DESIGN TECH Gender Identity Not on file Sexual Orientation Not on file Last Filed Vital Signs Vital Sign Reading Time Taken Comments Blood Pressure 138/88 03/17/2025 11:00 AM CDT Pulse 87 03/17/2025 11:00 AM CDT Temperature 36.7 C (98 F) 03/17/2025 11:00 AM CDT Respiratory Rate 20 03/17/2025 11:0 0 AM CDT Oxygen Saturation 95% 03/17/2025 11: 00 AM CDT Inhaled Oxygen Concentration - - Weight 100.7 kg (221 lb 14.4 oz) 2024 11:00 AM CDT Height 172.7 cm (5' 8) 03/17/2025 11:0 0 AM CDT Body Mass Index 33.74 03/17/2025 11:00 AM CDT Plan of Treatment Upcoming Encounters Date Type Department Care Team (Late st Contact Info) Description 06/16/2025 10:45 AM DESIGN TECH Office Visit [facility] [place] [address] [place] [address] Lefty Sousa MD [address] [place], [place] [address] Health Maintenance Due Date Last Done Comments Diabetes: Foot Exam 1961 Hepatitis C Virus (HCV) Screening 1961 Cologuard 2006 Immunochemical Fecal Occult Blood 2006 PSA Discussion 01/06/2016 Influenza Immunization (#1) 2025 09/2 10/2023, 05/14/2023, 06/17/2022, Additional history exists SARS-COV-2 Immunization (7 - Pfizer risk season) 2025 04/25/2024, 05/27/2023, 05/13/2023, Additional history exists Diabetes: Hemoglobin A1c 09/27/2025 025, 09/01/2024, 04/21/2024, Additional history exists Lung Cancer Screening 10/18/2025 10/18/2024 , 09/16/2024, 06/18/2023, Additional history exists Diabetes: Nephropathy Screening 12/16/2025 12/16/2024, 09/09/2024, 06/10/2024, Additional history exists Diabetes: Eye Exam 03/21/2026 03/21/2025 Td Immunization Every 10 Years (Adults With [...] Procedure Name Priority Date/Time Associated Diagnosis Comments LDH 89013 [place] Routine 03/17/2025 11:20 AM CDT COMP. METABOLIC PANEL [id number] [place] Routine 03/17/2025 11:20 AM CDT COMPLETE BLOOD COUNT (CBC) WITH DIFF Routine 03/17/2025 11:20 AM CDT Anemia, unspecified type Myeloproliferative disease (HCC) Iron deficiency anemia, unspecified iron deficiency anemia type CMP (COMPREHENSIVE METABOLIC PANEL) Routine 12/16/2024 11:30 AM CDT Myeloproliferative disease (HCC) CT CHEST W/O CONTRAST Routine 01/04/2021 10:14 AM CDT Lung nodule Leukocytosis, unspecified type Thrombocytosis (HCC) Myeloproliferative disease (HCC) Anemia of unknown etiology from Last 3 Months or Most Recently Relevant to Health Maintenance Results * LDH 31047 [place] (03/17/2025 11:20 AM CDT) LDH 168 121 - 224 IU/L [facility] 03/17/2025 11:2 0 AM CDT Narrative [facility] - 03/18/2025 7:08 AM CDT TESTING PERFORMED AT: [] [facility], [address] [place] [address], [place], [address], PHONE: [phone], MORTGAGE LOAN PROCESSING CLERK: STEFANIE JURADO, PHD us Lynnette Anderson NET PROGRAMMER, NETWORK APPLICATIONS SPECIALIST LAB SEND OUTS Fin al Result [facility] [place] [address], [place] [phone] * (ABNORMAL) COMP. METABOLIC PANEL [id number] [place] (03/17/2025 11:20 AM CDT) GLUCOSE, SERUM 171(H) 70 - 99 MG/DL [facility] [place] [place] BUN 21 8 - 27 MG/DL [facility] [place] CREATININE, SERUM 1.30(H) 0.76 - 1.27 MG/DL [facility] [place] EGFR 61 >59 ML/MIN/1.[address] [facility] [place] BUN/CREATININE RATIO 16 10 - [address] [facility] [place] SODIUM, SERUM 143 134 - 144 MMOL/L [facility] [place] POTASSIUM, SERUM 4.5 3.5 - 5.2 MMOL/L [facility] [place] CHLORIDE, SERUM 106 96 - 106 MMOL/L [facility] [place] CARBON DIOXIDE, TOTAL 25 20 - 29 MMOL/L [facility] [place] CALCIUM, SERUM 12.1(H) 8.6 - 10.2 MG/DL [facility] [place] PROTEIN, TOTAL, SERUM 6.6 6.0 - 8.5 G/DL [facility] [place] ALBUMIN, SERUM 4.2 3.9 - 4.9 G/DL [facility] [place] GLOBULIN, TOTAL 2.4 1.5 - 4.5 G/DL [facility] [place] BILIRUBIN, TOTAL 0.2 0.0 - 1.2 MG/DL [facility] [place] ALKALINE PHOSPHATASE, S 109 44 - 121 IU/L [facility] [place] AST (SGOT) 15 0 - 40 IU/L [facility] [place] ALT (SGPT) 26 0 - 44 IU/L [facility] [place] 03/17/2025 11:2 0 AM CDT Narrative [facility] [place] - 03/18/2025 6:07 AM CDT TESTING PERFORMED AT: [CB[facility], [address] [place] [address], [address], PHONE: [phone], MORTGAGE LOAN PROCESSING CLERK: STEFANIE JURADO, PHD Lynnette Anderson NET PROGRAMMER, NETWORK APPLICATIONS SPECIALIST LAB SEND OUTS Fin al Result [facility] [place] [address], * (ABNORMAL) COMPLETE BLOOD COUNT (CBC) WITH DIFF (03/17/2025 11:20 AM CDT) WBC 12.0(H) 4.0 - 10.0 10*3/uL [facility] HGB 15.4 13.7 - 17.5 g/dL [facility] HCT 46.5 40.1 - 51.0 % [facility] PLT 316 163 - 369 10*3/uL [facility] MPV 10.5 9.4 - 12.4 fL [facility] RBC 4.50(L) 4.63 - 6.08 10*6/uL [facility] MCV 103(H) 79 - 95 fL [facility] MCH 34.2(H) 25.6 - 32.2 pg [facility] MCHC 33.1 32.2 - 36.5 g/dL [facility] RDW 14.6(H) 11.6 - 14.4 % [facility] Absolute Neutrophil Count 6,595 cells/uL [facility] Absolute Seg Count 6,595 1,440 - 6,600 cells/uL [facility] Absolute Lymph Count 4,436(H) 760 - 4,000 cells/uL [facility] Absolute Early Count 600 160 - 1,200 cells/uL [facility] Absolute Eos Count 360(H) 0 - 300 cells/uL [facility] Segmented Neutrophils 55 36 - 66 % [facility] Lymphocytes 37 19 - 40 % [facility] Monocytes 5 4 - 12 % [facility] Eosinophils 3 0 - 3 % [facility] WBC Estimate High [facility] Platelet Estimate Normal [facility] RBC Morphology Abnormal [facility] Macrocytosis 1+ [facility] Blood 03/17/2025 11:2 0 AM CDT Narrative [facility] - 03/17/2025 1:22 PM CDT Release to patient->Immediate Lynnette Anderson APRN, ROBIN HEMATOLOGY ORDERABL ES Final Result [facility] [place] [address], * (ABNORMAL) CMP (COMPREHENSIVE METABOLIC PANEL) (12/16/2024 11:30 AM CDT) Glucose 196(H) 70 - 105 mg/dL [facility] [place] Blood Urea Nitrogen 30(H) 7 - 25 mg/dL [facility] [place] Creatinine 1.6(H) 0.7 - 1.3 mg/dL [facility] [place] Sodium 138 136 - 145 mEq/L [facility] [place] Potassium 4.4 3.5 - 5.1 mEq/L [facility] [place] Chloride 108(H) 98 - 107 mEq/L [facility] [place] Bicarbonate 26 21 - 31 mEq/L [facility] [place] Total Bilirubin 0.3 0.3 - 1.0 mg/dL [facility] [place] Alk. Phosphatase 80 34 - 104 U/L [facility] [place] Aspartate Aminotransferase 12(L) 13 - 39 U/L [facility] [place] Alanine Aminotransferase 17 7 - 52 U/L [facility] [place] Total Protein 6.9 6.4 - 8.9 g/dL [facility] [place] Albumin 4.4 3.5 - 5.7 g/dL [facility] [place] Calcium 11.4(H) 8.6 - 10.3 mg/dL [facility] [place] Anion Gap 8.4 7.0 - 15.0 mEq/L [facility] [place] Globulin 2.5 2.0 - 3.5 g/dL [facility] [place] EGFR 48(L) >60 ml/min/1. 73m2 [facility] Comment: This eGFR is calculated using 2020 CKD-EPI Creatinine equation without race modifier based on the NKF-ASN task force recommendations Equation: bDZF=906*min(SCr/k,1)a*max(SCr/k,1)-1.200*0.9938Age*1.012 (if female), where SCr is serum creatinine, k is 0.7 for females and 0.9 for males, and a is -0.241 for females and -0.302 for males Blood 12/16/2024 11:3 0 AM CDT Narrative [facility] - 12/16/2024 12:26 PM CDT Release to patient->Immediate IS THE PATIENT REQUIRED TO BE FASTING FOR 8 HOURS?->No us Marianela Chan APRN, CNP CHEMISTRY ORDERABLES Final Result [facility] [address] [place] [address], [place] [phone] * CT CHEST W/O CONTRAST (01/04/2021 10:14 [...] Insurance MEDICAID [employer] Care Teams Harpsichord Maker Relationship Specialty Start Date End Date Dnia Cloud PAC [address] [place] [address] PCP - General Physician Utilization Coordinator 05/25/20 Lefty Sousa MD [address] [place] [phone] Consulting Physician Hematology and Oncology 01/03/21
--- OUTSIDE RECORDS SUMMARY | 2025-04-19 01:13 | XMS_ITS | Encounter Summary ---
Author Organization [facility] Address [address] [address] Care Team Providers Care Carpet Renovator Name Role Phone Ramandeep Ann APRN-CLINICAL EDUCATION ASSISTANT Primary Care Provider Dina CloudC Primary Care Provider Encounter Details Date Type Department Care Team (Late st Contact Info) Description 11/19/2017 Telephone [facility] IVR [address] [place] [phone] Jack Carnes RN Social History Tobacco Use Types Packs/Day Years Used Date Smoking Tobacco: Some Days Cigarettes Smokeless Tobacco: Never Alcohol Use Standard Drinks/Week Comments No 0 (1 standard drink = 0.6 oz pur e alcohol) Sex and Gender Information Value Date Recorded Sex Assigned at Not on file Legal Sex Male 5:17 PM FLATWORK FEEDER Gender Identity Not on file Sexual Orientation Not on file documented as of this encounter Progress Notes * Jack Carnes, MAIN - 11/19/2017 12:22 PM CDT Pt. Is s/p L4-5 interlaminar epidural steroid injection on 11/17/17 , the request was for bilateral L4-5 and L5-S1 Medial branch Block for 9-10/10 lower back pain , per telephone pt. Stated his pain is unchanged and he has had many spinal injection in the past including cement injection in my lower back about two years ago at [facility] , and he said he is not [...] Description 04/27/2025 9:45 AM CDT Office Visit [facility] - Urology [address] [place] [phone] Josy Davila DO [address] [place] [address] 2L [place] [phone] 05/25/2025 10:00 AM CDT Procedure visit [facility] - Dermatology [address] [place] [address], [place] [phone] Robb Howell MD [address] [place] [address] 3L [place] [address] 05/30/2025 9:00 AM CDT Office Visit [facility] - Neurology [address] [place] [address], [place] [address] Meredith Weiss MD [address] [place] [address] 1L [place] [phone] 06/15/2025 10:20 AM FLATWORK FEEDER Appointment [facility] CAT SCAN [address] [place] [address] Becca Ford MD [address] [place] [address] 2L DIV [place] [address] 07/05/2025 1:00 PM FLATWORK FEEDER Procedure visit [facility] - Endocrinology [address] [place] [address], [place] [address] Greg Obrien MD [address] [place] [address] 2L [place] [address] 07/18/2025 1:10 AM FLATWORK FEEDER Clinical Support [facility] - Cardiology [address] [phone] 08/04/2025 8:20 AM FLATWORK FEEDER [facility] [address] [place] [phone] Robb Howell MD [address] [place] [address] 3[address] [place] [address] 08/22/2025 3:40 PM FLATWORK FEEDER Office Visit [facility] - Endocrinology [address] [place] [phone] Garry Tracey MD [address] [place] [address] 2L [place] [address] 09/28/2025 10:00 AM FLATWORK FEEDER [facility] [address] [place] [phone] Nataliia Cooper MD [address] [place] [address] 3L [place] [address] 10/05/2025 3:30 PM FLATWORK FEEDER Office Visit [facility] - Pulmonology [address] [place] [phone] Becca Ford MD [address] OF [facility] [place] [address] 10/24/2025 9:00 AM CDT Office Visit [facility] Cardiology [address] [facility], [address] [phone] Daily Bravo MD [address] [place] [address] 04/10/2026 9:30 AM CDT Office Visit [facility] - Ophthalmology [address] [place] [phone] Jameson Martin OD [address] [place] [address] documented as of this encounter Visit Diagnoses Not on filedocumented in this encounter Care Teams Carpet Renovator Relationship Specialty Start Date End Date Ramandeep Ann, DATA ANALYST-CLINICAL EDUCATION ASSISTANT [address] [place] [phone] PCP - General 03/17/17 07/09/20 Dina Cloud PA-C [address] [place] [phone] PCP - General Physician Clamper 07/10/20 documented as of this encounter
--- OUTSIDE RECORDS SUMMARY | 2025-04-19 01:13 | XMS_ITS | Encounter Summary ---
Author Organization [facility] Address [address] [place] [address] Care Team Providers Care Care Manager Cna Name Role Phone Dina Cloud PA-C Primary Care Provider Reason for Visit * Reason Onset Date Comments Medication Prior Auth Request 11/20/2023 Encounter Details Date Type Department Care Team (Late st Contact Info) Description 11/20/2023 Telephone [facility]iology [address] [facility] [address] [place] [address] Kika Ocampo PA [address] [place] [address] Medication Prior Auth Request Social History Tobacco Use Types Packs/Day Years Used Date Smoking Tobacco: Every Day Cigarettes 1 51.7 Started: 1972 Smokeless Tobacco: Never Comments:06/25 1 ppd Alcohol Use Standard Drinks/Week [...] on file Legal Sex Male 5:17 PM CLAMMER Gender Identity Not on file Sexual Orientation Not on file documented as of this encounter Miscellaneous Notes * Telephone Encounter - Maria Guadaluep Kim - 11/20/2023 9:14 AM CDT Pt's caregiver Mason called requesting if a authorization could be sent to pt's pharmacy regarding refilling his evolocumab (Repatha) 140 MG/ML prefilled syringe Call Back Number: [phone] documented in this encounter Plan of Treatment Upcoming Encounters Date Type Department Care Team (Late st Contact Info) Description 04/27/2025 9:45 AM CDT Office Visit [facility] - Urology [address] [place] [address] [address] [place] [address] Josy Davila DO [address] [place] [address] 2L [place] [phone] 05/25/2025 10:00 AM CDT Procedure visit [facility] - Dermatology [address] [place] [address] [place] [phone] Robb Howell MD [address] [place] [address] 3L [place] [address] 05/30/2025 9:00 AM CDT Office Visit [facility] - Neurology [address] [place] [address], [place] [phone] Meredith Weiss MD [address] [place] [address] 1L [place] [phone] 06/15/2025 10:[address] [facility] CAT SCAN [address] [place] [phone] Becca Ford MD [address] [place] [address] 2L DIV OF GEN [place] [address] 07/05/2025 1:00 PM CLAMMER Procedure visit [facility] - Endocrinology [address] [place] [phone] Greg Obrien MD [address] [place] [address] 2L [place] [address] 07/18/2025 1:10 AM CLAMMER Clinical Support [facility] - Cardiology [address] [phone] 08/04/2025 8:20 AM CLAMMER [facility] [address] [place] [phone] Robb Howell MD [address] [place] [address] 3L [place] [address] 08/22/2025 3:40 PM CLAMMER Office Visit [facility] - Endocrinology [address] [place] [phone] Garry Tracey MD [address] [place] [address] 2L [place] [address] 09/28/2025 10:00 AM CLAMMER Office Visit [facility] - Nephrology [address] [place] [phone] Nataliia Cooper MD [address] [place] [address] 3L [place] [address] 10/05/2025 3:30 PM CLAMMER Office Visit [facility] - Pulmonology [address] [place] [phone] Becca Ford MD [address] [place] [address] 2L DIV OF [place] [address] 10/24/2025 9:00 AM CDT Office Visit [facility] - Cardiology [address] [facility], [phone] [place] [address] Daily Bravo MD [address] [place] [address] 04/10/2026 9:30 AM CDT Office Visit [facility] - Ophthalmology [address] [place] [phone] Jameson Martin OD [address] [place] [address] documented as of this encounter Visit Diagnoses Not on filedocumented in this encounter Care Teams Care Manager Cna Relationship Specialty Start Date End Date Dina Cloud PA-C [address] [place] [phone] PCP - General Physician Destination Imagination Coordinator 07/10/20 documented as of this encounter
--- OUTSIDE RECORDS SUMMARY | 2025-04-19 01:13 | XMS_ITS | Encounter Summary ---
Author Organization [facility] Health Address [address] [place] [address] Care Team Providers Care Bake Room Worker Name Role Phone Dina Cloud PA-C Primary Care Provider Reason for Visit * Reason Onset Date Comments Question 09/28/2024 Encounter Details Date Type Department Care Team (Late st Contact Info) Description 09/28/2024 Telephone [facility] - Centralized Scheduling [address] [place] [address] Robb Howell MD [address] [place] [address] Question Social History Tobacco Use Types Packs/Day Years Used Date Smoking Tobacco: Every Day Cigarettes 1 51.7 Started: 1972 Smokeless Tobacco: Never Comments:06/25 08/04 [...] on file Legal Sex Male 5:17 PM SENIOR QUALITY ASSURANCE ANALYST Gender Identity Not on file Sexual Orientation Not on file documented as of this encounter Miscellaneous Notes * Telephone Encounter - Maria Isabel Garcia - 09/28/2024 1:09 PM CST ruben Ceja's family day care provider is calling. She would like to confirm that Basilio does not need to followup again with Dante until the January visit. Please assist, thank you! She states that you can call his phone: [phone] OR QUALITY ASSURANCE ANALYST documented in this encounter Plan of Treatment Upcoming Encounters Date Type Department Care Team (Late st Contact Info) Description 04/27/2025 9:45 AM CDT Office Visit [facility] - Urology [address] [place] [address] [address] [place] [phone] Josy Davila DO [address] [place] [address] 2L [place] [phone] 05/25/2025 10:00 AM CDT Procedure visit [facility] - Dermatology [address] [place] [address], [place] [phone] Robb Howell MD [address] [place] [address] [address] [place] [address] 05/30/2025 9:00 AM CDT Office Visit [facility] - Neurology [address] [place] [address], [place] [phone] Meredith Weiss MD [address] [place] [address] 1[address] [place] [phone] 06/15/2025 10:20 AM SENIOR QUALITY ASSURANCE ANALYST Appointment [facility] [address] [place] [address] Becca Ford MD [address] [place] [address] 2L DIV OF GEN INTERNAL MEDICINE [place] [id number] 07/05/2025 1:00 PM SENIOR QUALITY ASSURANCE ANALYST Procedure visit [facility] - Endocrinology [address] [place] [address], [place] [address] Greg Obrien MD [address] [place] [address] 2L [place] [address] 07/18/2025 1:10 AM SENIOR QUALITY ASSURANCE ANALYST Clinical Support [facility] - Cardiology [address] [facility] [address] [place] [phone] 08/04/2025 8:20 AM SENIOR QUALITY ASSURANCE ANALYST Office Visit [facility] - Dermatology [address] [place] [address], [place] [address] Robb Howell MD [address] [place] [address] [address] [place] [address] 08/22/2025 3:40 PM SENIOR QUALITY ASSURANCE ANALYST Office Visit [facility] - Endocrinology [address] [place] [address], [place] [address] Garry Tracey MD [address] [place] [address] 2[address] [place] [address] 09/28/2025 10:00 AM SENIOR QUALITY ASSURANCE ANALYST Office Visit [facility] - Nephrology [address] [place] [address], [place] [address] Nataliia Cooper MD [address] [place] [address] 3L [place] [address] 10/05/2025 3:30 PM SENIOR QUALITY ASSURANCE ANALYST Office Visit [facility] - Pulmonology [address] [place] [address], [place] [address] Becca Ford MD [address] [place] [address] 2L DIV [place] [address] 10/24/2025 9:00 AM CDT Office Visit [facility] - Cardiology [address] [facility] [address] [place] [address] Daily Bravo MD [address] [facility] [address] [place] [address] 04/10/2026 9:30 AM CDT Office Visit [facility] - Ophthalmology [address] [place] [address] Jameson Martin OD [address] [place] [phone] documented as of this encounter Goals Goal Patient Goal Type Associated Problems Recent Progress Patient-Stated? Author Medication Management General On track( 025 10:03 AM SENIOR QUALITY ASSURANCE ANALYST) Ketty Candelario, RN Note: Expected end date: on going Interventions: Take all medications as prescribed Let your doctor know right away about any changes in your medications Make sure to request a refill of your medication at least one week prior to your last dose documented as of this encounter Visit Diagnoses Not on filedocumented in this encounter Care Teams Bake Room Worker Relationship Specialty Start Date End Date Dina Cloud PA-C [address] [place] [phone] PCP - General Physician Funeral Director And Embalmer 07/10/20 documented as of this encounter
--- OUTSIDE RECORDS SUMMARY | 2025-04-19 01:13 | XMS_ITS | Encounter Summary ---
Author Organization [facility] Address [address] [place] [address] Phone Care Team Providers Care Bell Tier Name Role Phone Dina Cloud PAC Primary Care Provider + [phone] Lefty Sousa MD Unavailable +[phone] Encounter Details Date Type Department Care Team (Late st Contact Info) Description 09/17/2020 Telephone [facility] [address] [place] [address] Lefty Sousa MD [address] [facility] [place] [address] Social History Tobacco Use Types [...] on file Legal Sex Male 11:32 AM ELECTRICITY TRADING ANALYST Gender Identity Not on file Sexual Orientation Not on file documented as of this encounter Miscellaneous Notes * Telephone Encounter - Ketty Lopez - 09/17/2020 9:20 AM CST Called pt to reschedule due to weather-pt states he will have his recycling assistant call back to reschedule TRICITY TRADING ANALYST documented in this encounter Plan of Treatment Upcoming Encounters Date Type Department Care Team (Late st Contact Info) Description 06/16/2025 10:45 AM ELECTRICITY TRADING ANALYST Office Visit [facility] [address] [place] [phone] Lefty Sousa MD [address] [place] [address] [id number] documented as of this encounter Visit Diagnoses Not on filedocumented in this encounter Additional Health Concerns Assessment Noted Time PHQ-9 Depression Total Score: 0 05/17/20 8:28 AM CDT documented as of this encounter Care Teams Bell Tier Relationship Specialty Start Date End Date Dina Cloud PAC [address] [place] [address] PCP - General Physician [employer] 05/25/20 Lefty Sousa MD [address] [place] [address] Consulting Physician Hematology and Oncology 01/03/21 documented as of this encounter
--- OUTSIDE RECORDS SUMMARY | 2025-04-19 01:13 | XMS_ITS | Clinical Summary ---
Author Organization [facility] [address] Address [address] [place] [address] Care Team Providers Care Tank Builder And Erector Name Role Phone Dina Cloud Primary Care Provider + Allergies Active Allergy Reactions Criticality Noted Date Comments Penicillins Medications acetaminophen (TYLENOL) 500 mg tablet acetaminophen 500 mg tablet TAKE 1 TABLET BY MOUTH EVERY 6 HOURS NEEDED Active aspirin 81 mg chewable tablet aspirin 81 mg chewable tablet CHEW 1 T PO Q DAY Active atorvastatin (LIPITOR) 80 mg tablet Take 1 tablet (80 mg total) by mouth daily 09/03/19 17 Active Dexcom G7 Sensor device 02/07/20 25 Active buPROPion SR (ZYBAN) 150 mg 12 hr tablet Take 1 tablet (150 mg total) by mouth 2 (two) times a day 06/16/20 24 Active clopidogreL (PLAVIX) 75 mg tablet Take 1 tablet (75 mg total) by mouth daily 02/24/20 19 Active cholecalciferol 25 mcg (1,000 unit) tablet daily 03/12/20 20 Active cyanocobalamin (Vitamin B-12) 1,000 mcg tablet Take 1 tablet (1,000 mcg total) by mouth daily 12/31/[address] (CYMBALTA) 30 mg capsule Take 1 capsule (30 mg total) by mouth daily 09/08/19 18 Active empagliflozin (JARDIANCE) 10 mg tablet Take 1 tablet (10 mg total) by mouth daily 11/20/19 22 Active ergocalciferol (VITAMIN D) 50,000 unit capsule Take 1 capsule (50,000 Units total) by mouth 07/29/20 18 Active evolocumab (REPATHA) syringe syringe Inject 1 mL (140 mg total) under the skin every 2 (two) weeks 03/16/20 24 Active famotidine (PEPCID) 20 mg tablet Take 1 tablet (20 mg total) by mouth 2 (two) times a day 08/25/19 23 Active fenofibrate nanocrystallized (TRICOR) 145 mg tablet daily 12/24/19 17 Active ferrous sulfate 325 mg (65 mg of elemental iron) tablet Take 1 tablet (325 mg total) by mouth 3 (three) times a day 08/08/19 20 Active folic acid (FOLVITE) 1 mg tablet Take 1 tablet (1,000 mcg total) by mouth daily 07/20/20 17 Active gabapentin (NEURONTIN) 800 mg tablet Take 600 mg by mouth 3 (three) times a day Active hydroxyurea (HYDREA) 500 mg capsule Take 1 capsule (500 mg total) by mouth daily 08/22/19 23 Active insulin lispro (HumaLOG) 100 unit/mL vial for injection Inject 12 units TID with meals 06/26/20 15 Active levETIRAcetam (KEPPRA) 250 mg tablet Take by mouth 3 (three) times a day 11/10/19 18 Active lisinopriL (PRINIVIL,ZESTRIL) 20 mg tablet Take 1 tablet (20 mg total) by mouth daily 07/17/20 20 Active metoprolol XL (TOPROL-XL) 25 mg extended release tablet Take 1 tablet (25 mg total) by mouth daily 11/20/19 19 Active oxyBUTYnin XL (DITROPAN XL) 15 mg 24 hr tablet Take 1 tablet (15 mg total) by mouth daily 11/19/19 22 Active pen needle, diabetic (Pen Needle) 31 gauge x 3/16 needle 1 each 4 (four) times a day 11/09/19 25 Active sildenafiL (VIAGRA) 100 mg tablet Take 1 tablet (100 mg total) by mouth daily as needed 02/12/20 21 Active insulin syringe-needle U-100 (BD Insulin Syringe Ult-Fine II) 1 mL 31 gauge x 5/16 syringe QID injections MDD:4 TDD:4 05/30/20 15 Active tamsulosin (FLOMAX) 0.4 mg extended release capsule Take 1 capsule (0.4 mg total) by mouth nightly 08/19/19 21 Active terbinafine (LamiSIL) 250 mg tablet TAKE 1 TABLET BY MOUTH EVERY DAY FOR 14 DAYS 02/19/20 21 Active OneTouch Ultra Test strip by Not Applicable route 11/20/19 22 Active amitriptyline (ELAVIL) 75 mg tablet Take 1 tablet (75 mg total) by mouth nightly as needed for sleep Active dulaglutide (TRULICITY) 1.5 mg/0.5 mL pen injector Inject 1 mL (3 mg total) under the skin every 7 days Active insulin glargine 100 unit/mL (3 mL) pen for injection Inject 40 Units under the skin bedtime Active albuterol HFA (PROVENTIL HFA,VENTOLIN HFA,PROAIR HFA) 90 mcg/actuation inhaler Inhale 2 puffs every 6 (six) hours as needed for wheezing Active fluticasone propionate (FLONASE) 50 mcg/actuation nasal spray Administer 1 spray into each nostril daily Active Active Problems Problem Noted Date Diagnosed Date 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 02/14/2016 Herniated lumbar intervertebral disc 11/05/2015 Spinal stenosis 11/05/2015 Lumbago 11/05/2015 Chronic pain 11/05/2015 Hypertension 04/27/2015 Hyperlipidemia 04/27/2015 Type 2 diabetes mellitus 03/15/2015 Leukocytosis 03/08/2015 Thrombocythemia 03/08/2015 Anemia 03/08/2015 Encounters Date Type Department Care Team Description 03/20/2025 Telephone [facility] [address] [place] [address] [facility] [address] [place] [address] Nam De Los Santos MD Procedure question/concern 03/09/2025 Telephone [facility] [address] [place] [address] [facility] [address] [place] [address] Nam De Los Santos MD need more info for approval for B/L SIJ 03/02/2025 Results Follow-Up [facility] [address] [place] [address] [facility] [address] [place] [address] Suri Quintero NP X-ray lumbar spine complete 4+ views 03/01/2025 11:13 AM CDT - 03/01/2025 11:59 PM CDT Hospital Encounter [facility] [address] [place] [address] Chronic midline low back pain without sciatica Discharge Disposition: Discharge to home or self care 03/01/2025 9:24 AM CDT - 03/01/2025 11:59 PM CDT Hospital Encounter [facility] [address] [facility] [address] [place] [address] Suri Quintero NP Sacroiliitis (Primary Dx); Chronic midline low back pain without sciatica Discharge Disposition: Discharge to home or self care from Last 3 Months Surgical History Surgery Date Site/Laterality Comments RI RPR UMBILICAL HERNIA < 5 YRS REDUCIBLE Umbilical Hernia Repair - (Added by TW Conv) RI UNLISTED PROCEDURE SPINE Percutaneous Vertebral Augmentation Kyphoplasty - L3 (Added by TW Conv) FL UPPER GI AIR CONTRAST W KUB 11/17/2017 Left INSERT / REPLACE / REMOVE PACEMAKER Medical History Medical History Date Comments Personal [...] and tingling - (Added by TW Conv) Arthritis Chronic pain disorder Cancer (HCC) COPD (chronic obstructive pu lmonary disease) Diabetes mellitus (HCC) Depression GERD (gastroesophageal reflux disease) Hypertension Low back pain Myocardial infarction (HCC) Peripheral neuropathy Sleep apnea Family History Medical History Relation Name Comments [...] Years Used Date Smoking Tobacco: Every Day Tobacco Cessation:Ready to Q uit: Yes; Counseling Given: Yes AUDIT-C Answer Date Recorded Q1: How often do you have a drink containing alc ohol? Monthly or less 03/01/2025 Q2: How many drinks containi ng alcohol do you have on a typical day when you are drinking? 1 or 2 03/01/2025 Q3: How often do you have si x or more drinks on one occasion? Never 03/01/2025 Hunger Vital Sign Answer Date Recorded Within the past 12 months, y ou worried that your food would run out before you got the money to buy more. Never true 03/01/20 25 Within the past 12 months, t he food you bought just didn't last and you didn't have money to get more. Never true 03/01/2025 Sex and Gender Information Value Date Recorded Sex Assigned at Not on file Legal Sex Male 9:27 PM DAM OPERATOR Gender Identity Not on file Sexual Orientation Not on file Obstetrics History Last Filed Vital Signs Vital Sign Reading Time Taken Comments Blood Pressure 168/95 03/01/2025 9:37 AM CDT Pulse 109 03/01/2025 9:37 AM CDT Temperature 36.5 C (97.7 F) 03/01/2025 9:37 AM CDT Respiratory Rate 18 03/01/2025 9:37 AM CDT Oxygen Saturation 98% 03/01/2025 9:37 AM CDT Inhaled Oxygen Concentration - - Weight 100.7 kg (222 lb) 03/01/2025 9:37 AM CDT Height 172.7 cm (5' 8) 03/01/2025 9:37 AM CDT Body Mass Index 33.75 03/01/2025 9:37 AM CDT Plan of Treatment Health Maintenance Due Date Last Done Comments Albumin Creatinine Ratio, Urine 1961 Colon Cancer Screening-Colonoscopy 1961 Depression Screening 1961 Hepatitis C Screening 1961 Prostate Cancer Screening-PSA 1961 eGFR 1961 Dilated Eye Exam 1961 Foot Exam 1961 Hepatitis B Screening 1979 Regular Well Visit/Exam 18-64 1979 Hemoglobin A1C 03/01/2025 09/01/2024, 04/03, 08/19/2021, Additional history exists Covid-19 Vaccine (2024-2 6 season) 2025 05/27/2023, 05/29/2022, 07/17/2021, Additional history exists Influenza Vaccine (#1) 2025 , 05/14/2023, 06/17/2022, Additional history exists Lipid Panel 10/26/2025 10/26/2024, 02/01, 01/22/2015, Additional history exists DTaP/Tdap/Td Vaccine (2 - Td or Tdap) 02/09/2027 02/09/2017 Colon Cancer Screening-FIT Discontinued 01/23/2015 Zoster Vaccine Completed 01/02/2022, 11/03/2021 Pneumococcal vaccine <65 Completed 023, 02/09/2017, 08/21/2015, Additional history exists Goals Goal Patient Goal Type Associated Problems Recent Progress Patient-Stated? Author CCM Chronic Pain Care Plan Chronic Care Management Worsening( 9:41 AM CDT) Mehreen Ewing, RN Note: Problem: Chronic Pain Goals: 1. Minimize further functional decline 2. Maximize quality of life 3. Control pain Strategies: - Activity/exercise program recommendation - Conservative stepwise pain medicine strategy with multi-disciplinary approach - Recommend healthy lifestyle strategies and compensatory methods as needed Medical Devices Implanted Type Area Systems Test Technician Device Identifier Shelf Expiration Date Model / Serial / Lot Pace Maker Chest Wall Procedures Procedure Name Priority Date/Time Associated Diagnosis Comments XR SPINE LUMBAR COMPLETE 4 OR MORE VIEWS Schedule Routine, Read Routine (OP Routine) 03/01/2025 11:23 AM CDT Chronic midline low back pain without sciatica HEMOGLOBIN A1C Routine 03/24/2020 8:49 PM CDT OCCULT BLOOD, FECAL (FIT) Routine 01/23/2015 12:00 PM CDT TNI WITH LIPID PANEL Routine 01/22/2015 4:47 PM CDT from Last 3 Months or Most Recently Relevant to Health Maintenance Results * X-ray lumbar spine complete 4+ views (03/01/2025 11:23 AM CDT) Anatomical Region Laterality Modality Spine N/A Computed Radiogr aphy 03/01/2025 12:5 6 PM CDT Impressions 03/01/2025 12:56 PM CDT 1. Multilevel degenerative disc disease, most pronounced and severe from L4 through S1. 2. L3 compression fracture status post vertebral augmentation Electronically signed by: Tr Dickson M.D. Narrative 03/01/2025 12:56 PM CDT EXAMINATION: XR SPINE LUMBAR 4 OR MORE VIEWS HISTORY: chronic low back pain COMPARISON: No recent comparison available. FINDINGS: There is mild L3 compression fracture deformity with sequelae of vertebral augmentation. There is no evidence of acute compression fracture. Multilevel degenerative disc disease, most pronounced and severe from L4 through S1. Multifocal vascular calcifications. No significant scoliotic curvature or spondylolisthesis. Procedure Note Tr Dickson MD - 03/01/2025 EXAMINATION: XR SPINE LUMBAR 4 OR MORE VIEWS HISTORY: chronic low back pain COMPARISON: No recent comparison available. FINDINGS: There is mild L3 compression fracture deformity with sequelae of vertebral augmentation. There is no evidence of acute compression fracture. Multilevel degenerative disc disease, most pronounced and severe from L4 through S1. Multifocal vascular calcifications. No significant scoliotic curvature or spondylolisthesis. IMPRESSION: 1. Multilevel degenerative disc disease, most pronounced and severe from L4 through S1. 2. L3 compression fracture status post vertebral augmentation Electronically signed by: Tr Dickson M.D. Suri Pathak [employer] IMG XR PROCEDURES Final Result * (ABNORMAL) Hemoglobin A1c (03/24/2020 8:49 PM CDT) Pathologist [facility] Hemoglobin A1c % 8.9(H) 4.0 - 5.6 % [facility] Comment: ADA 2016 GUIDELINES: Initial Diagnostic Criteria HbA1c Result: Interpretation: <5.7% Normal 5.7-6.4% At risk for diabetes mellitus >=6.5% Consistent with diabetes mellitus Diabetes monitoring Target value (ADA Recommended) <7% 03/24/2020 8:49 PM CDT 03/24/2020 8:53 PM CDT Narrative Resulting Agency Comment IN Milton Jacob MD LAB [place] [address], [facility] [phone] * Occult blood, fecal non neoplasm screening (01/23/2015 12:00 PM CDT) Stool Occult Blood NEGATIVE NEGATIVE 01/23/2015 2:57 PM CDT [facility] HISTORICAL RESULTS 01/23/2015 12:0 0 PM CDT 01/23/2015 2:36 PM CDT Narrative [facility]OR[facility] RESULTS - 01/23/2015 2:57 PM CDT Collected By je Carlos Bernabe MD LAB BODY FLUIDS AND ST OOLS ORDERABLES Final Result [facility] HISTORICAL RESULTS * (ABNORMAL) TNI with LIPID PANEL (01/22/2015 4:47 PM CDT) Troponin I < 0.300 0.000 - 0.300 ng/mL 01/22/2015 5:37 PM CDT [facility] HISTORICAL RESULTS Comment: Reference using [facility] Chemiluminescence Negative: Repeat in 4-6 hours as indicated. Triglycerides 544(H) 0 - 199 mg/dL 01/22/2015 5:39 PM CDT [facility] HISTORICAL RESULTS Comment: LDL (measured) to follow due to Triglycerides >250 mg/dL 12 hr pc highly recommended for Triglyceride Cholesterol 244(H) 0 - 199 mg/dL 01/22/2015 5:39 PM CDT [facility] HISTORICAL RESULTS Comment: Borderline: 200-239 High Risk: >239 HDL Cholesterol 28(L) 40 - 60 mg/dL 01/22/2015 5:39 PM CDT [facility] HISTORICAL RESULTS Comment: Major Risk < 40 mg/dL Moderate Risk 40-60 mg/dL Negative Risk > 60 mg/dL Cholesterol/HDL Ratio 8.7 Comment: Cholesterol / HDL Ratio 3.5:1 or less is desirable. Cholesterol / HDL Ratio greater than 5:1 is considered higher risk for developing heart disease. 01/22/2015 4:47 PM CDT 01/22/2015 4:53 PM CDT [facility] HISTORICAL RESULTS - 01/22/2015 5:39 PM CDT us Jerry Tang MD LAB BLOOD ORDERABLES Cristine l Result Performing Organization Address City/[facility]/ZIP Co de Phone Number [facility] HISTORICAL RESULTS from Last 3 Months or Most Recently Relevant to Health Maintenance Insurance [place] Care Teams Tank Builder And Erector Relationship Specialty Start Date End Date Dina Cloud PA PCP - General Physician Balancer Scale 08/28/23
--- OUTSIDE RECORDS SUMMARY | 2025-04-19 01:13 | XMS_ITS | Encounter Summary ---
Author Organization [facility] Address [address] [place] [address] Phone Care Team Providers Care Animal Cop Name Role Phone Dina Cloud PAC Primary Care Provider + [phone] Lefty Sousa MD Unavailable Reason for Visit * Reason Comments Medication Refill Encounter Details Date Type Department Care Team (Late st Contact Info) Description 07/21/2023 Refill [facility] [address] [place] [address] Lefty Sousa MD [address] [address] Medication Refill Social History Tobacco [...] on file Legal Sex Male 11:32 AM DICTAPHONE OPERATOR Gender Identity Not on file Sexual Orientation Not on file documented as of this encounter Miscellaneous Notes * Telephone Encounter - Norma Bond RN - 07/21/2023 7:53 AM DICTAPHONE OPERATOR Please fill if appropriate APHONE OPERATOR documented in this encounter Plan of Treatment Upcoming Encounters Date Type Department Care Team (Late st Contact Info) Description 06/16/2025 10:45 AM DICTAPHONE OPERATOR Office Visit [facility] [address] [place] [address] Lefty Sousa MD [facility] [address] [place] [address] documented as of this encounter Visit Diagnoses Diagnosis Anemia, unspecified type documented in this encounter Additional Health Concerns Assessment Noted Time PHQ-9 Depression Total Score: 0 04/26/20 9:02 AM CDT documented as of this encounter Care Teams Animal Cop Relationship Specialty Start Date End Date Dina Cloud PAC [address] [place] [address] PCP - General Physician Landfill Gas Technician 05/25/20 Lefty Sousa MD [address] [place] [address] Consulting Physician Hematology and Oncology 01/03/21 documented as of this encounter
--- OUTSIDE RECORDS SUMMARY | 2025-04-19 01:13 | XMS_ITS | Encounter Summary ---
Author Organization [facility] Address [address] [place] [address] Phone Care Team Providers Care Hay Rake Operator Name Role Phone Dina Cloud PAC Primary Care Provider + [phone] Lefty Sousa MD Unavailable [phone] Encounter Details Date Type Department Care Team (Late st Contact Info) Description 07/15/2021 Telephone [facility] [address] [place] [address] Lefty Sousa MD 1052 [facility] [place] [address] [address] Social History Tobacco Use Types [...] on file Legal Sex Male 11:32 AM METER MAINTENANCE PERSON Gender Identity Not on file Sexual Orientation Not on file documented as of this encounter Miscellaneous Notes * Telephone Encounter - Cary Chapman - 07/15/2021 3:54 PM CST PT HAD AN APPT TODAY, NO SHOW, CALLED PT, LEFT V/M, LETTER SENT R MAINTENANCE PERSON documented in this encounter Plan of Treatment Upcoming Encounters Date Type Department Care Team (Late st Contact Info) Description 06/16/2025 10:45 AM METER MAINTENANCE PERSON Office Visit [facility] [address] [place] [phone] Lefty Sousa MD [address] [place] [address] [address] documented as of this encounter Visit Diagnoses Not on filedocumented in this encounter Additional Health Concerns Assessment Noted Time PHQ-9 Depression Total Score: 0 04/26/20 9:02 AM CDT documented as of this encounter Care Teams Hay Rake Operator Relationship Specialty Start Date End Date Dina Cloud PAC [address] [place] [address] PCP - General Physician Retrieval Specialist 05/25/20 Lefty Sousa MD [address] [place] [phone] Consulting Physician Hematology and Oncology 01/03/21 documented as of this encounter
--- OUTSIDE RECORDS SUMMARY | 2025-04-19 01:13 | XMS_ITS | Encounter Summary ---
Author Organization [facility] Address [address] [place] [address] Phone Care Team Providers Care Engineering Programmer Name Role Phone Dina Cloud PAC Primary Care Provider + [phone] Lefty Sousa MD Unavailable [phone] Encounter Details Date Type Department Care Team (Late st Contact Info) Description 02/06/2022 Telephone [facility] [address] [place] [address] Lefty Sousa MD 1052 [facility] [place] [address] [address] Social History Tobacco Use Types [...] file Legal Sex Male 11:32 AM SUPERVISOR NATURAL GAS PLANT Gender Identity Not on file Sexual Orientation [...] st Contact Info) Description 06/16/2025 10:45 AM SUPERVISOR NATURAL GAS PLANT Office Visit [facility] [address] [place] [phone] Lefty Sousa MD [address] [place] [address] [address] documented as of this encounter Visit Diagnoses Not on filedocumented in this encounter Additional Health Concerns Assessment Noted Time PHQ-9 Depression Total Score: 0 04/26/20 9:02 AM CDT documented as of this encounter Care Teams Engineering Programmer Relationship Specialty Start Date End Date Dina Cloud PAC [address] [place] [address] PCP - General Physician Senior Tech Manufacturing Engineering 05/25/20 Lefty Sousa MD [address] [place] [phone] Consulting Physician Hematology and Oncology 01/03/21 documented as of this encounter
--- OUTSIDE RECORDS SUMMARY | 2025-04-19 01:13 | XMS_ITS | Clinical Summary ---
Author Organization [facility] Address [address] [place] [address] Care Team Providers Care Appraisal Coordinator Name Role Phone Unavailable Primary Care Provider [...] each day 6 Active ergocalciferol 1.25 MG (77458 UT) capsule ergocalciferol (vitamin D2) 1,250 mcg [...] 1 (one) time each day 3 Active Albuterol-Arion sonide 90-80 MCG/ACT aerosol Inhale 2 puffs [...] deficiency anemia 12/21/2020 Myeloproliferative disease 08/26/2018 Immunizations Immunization Administration Dates Next Due Influenza TIV (IM) [...] 10:38 AM CDT Height 172.7 cm (5' 8) 10/27/2023 10:38 AM CDT Body Mass Index 35.43 10/27/2023 10:38 AM CDT Plan of Treatment Health Maintenance Due Date Last Done Comments Colorectal Cancer Screening: Annual FOBT 2010 Colorectal Cancer Screening: Colonoscopy 2010 Colorectal Cancer Screening: Sigmoidoscopy 2010 Pneumococcal Vaccine: 50+ Years (3 of 3 - PCV) 02/09/2018 02/09/2017, 08/21/2015, 01/23/2015 Diabetes: Pedal Pulse Checked 12/28/2020 Diabetes: Sensory Foot Exam 12/28/2020 Diabetes: Visual Foot Exam 12/28/2020 Diabetes: Hemoglobin A1C 06/08/2024 024, 09/28/2023, 04/28/2023, Additional history exists Diabetes: Ophthalmology Exam 07/06/2024 07/06/2023, 04/15/2022 Influenza Vaccine (#1) 2025 , 06/17/2022, 06/02/2022, Additional history exists Pneumococcal Vaccine: Peds (0 to 5 Years) and At-Risk Patients (6 to 49 Years) Discontinued 02/09/2017, 08/21/2015, 01/23/2015 Hepatitis B Vaccine Aged Out No longe r eligible based on patient's age to complete this topic Procedures Procedure Name Priority Date/Time Associated Diagnosis Comments HEMOGLOBIN A1C Routine 03/08/2024 7:39 AM CDT from Last 3 Months or Most Recently Relevant to Health Maintenance Results * (ABNORMAL) Hemoglobin A1c (03/08/2024 7:39 AM CDT) Hemoglobin A1C 8.7(H) 4.8 - 5.6 % [employer] [facility] Comment: Prediabetes: 5.7 - 6.4 Diabetes: >6.4 Glycemic control for adults with diabetes: <7.0 03/08/2024 7:39 AM CDT 03/07/2024 11:00 PM CDT us Kevin Shah MD LAB BLOOD ORDERABLES Final R esult [facility]New[facility] HospitalR[facility] Pharmaceuticals[facility] [address] [place] [address] from Last 3 Months or Most Recently Relevant to [place] [address] [facility]
--- OUTSIDE RECORDS SUMMARY | 2025-04-19 01:13 | XMS_ITS | Encounter Summary ---
Author Organization [facility] Address [address] [facility] [place] [address] Care Team Providers Care Algologist Name Role Phone Dina Cloud PA-C Primary Care Provider Encounter Details Date Type Department Care Team (Late st Contact Info) Description 01/26/2023 Telephone [facility] Central[facility] Scheduling [address] [place] [address] Garry Tracey MD [address] [place] [address] Social History Tobacco Use Types Packs/Day Years Used Date Smoking Tobacco: Every Day Cigarettes Smokeless Tobacco: Never Alcohol Use Standard Drinks/Week Comments Yes 0 (1 standard drink = 0.6 oz pur e alcohol) occ PHQ-2 Answer Date Recorded PHQ2 TOTAL SCORE 0 09/29/2022 Sex and Gender Information Value Date Recorded Sex Assigned at Not on file Legal Sex Male 5:17 PM ASSEMBLING MOTOR BUILDER Gender Identity Not on file Sexual Orientation [...] needs his prescription resent for Dexcom G7 Web Knitter and Dexcom G7 sensor due to the prescritpion being out dated. Pt callback is [phone] documented in this encounter Plan of Treatment Upcoming Encounters Date Type Department Care Team (Late st Contact Info) Description 04/27/2025 9:45 AM CDT Office Visit [facility] [address] [place] [phone] Josy Davila DO [address] [place] [address] 2L [place] [phone] 05/25/2025 10:00 AM CDT Procedure visit [facility] - Dermatology [address] [place] [address], [place] [address] Robb Howell MD [address] [place] [address] 3L [place] [address] 05/30/2025 9:00 AM CDT Office Visit [facility] - Neurology [address] [place] [address], [place] [address] Meredith Weiss MD [address] [place] [address] 1L [place] [address] 06/15/2025 10:20 AM ASSEMBLING MOTOR BUILDER Appointment [facility] CAT SCAN [address] [place] [address] Becca Ford MD [address] [place] [address] 2L DIV [place] [address] 07/05/2025 1:00 PM ASSEMBLING MOTOR BUILDER Procedure visit [facility] - Endocrinology [address] [place] [address], [place] [address] Greg Obrien MD [address] [place] [address] 2L [place] [address] 07/18/2025 1:10 AM ASSEMBLING MOTOR BUILDER Clinical Support [facility] - Cardiology 10[address] [facility] 1120 [place] [address] 08/04/2025 8:20 AM ASSEMBLING MOTOR BUILDER Office Visit [facility] - Dermatology [address] [place] [address], [place] [address] Robb Howell MD [address] [place] [address] 3L [place] [address] 08/22/2025 3:40 PM ASSEMBLING MOTOR BUILDER Office Visit [facility] - Endocrinology [address] [place] [address], [place] [address] Garry Tracey MD [address] [place] [address] 2L [place] [address] 09/28/2025 10:00 AM ASSEMBLING MOTOR BUILDER [facility] [address] [place] [phone] Nataliia Cooper MD [address] [place] [address] 3L [place] [address] 10/05/2025 3:30 PM ASSEMBLING MOTOR BUILDER Office Visit [facility] - Pulmonology [address] [place] [phone] Becca Ford MD [address] [place] [address] 2L DIV [place] [address] 10/24/2025 9:00 AM CDT [facility] [address] [facility] 1120 [place] [address] Daily Bravo MD [address] [facility] 1120 [place] [address] 04/10/2026 9:30 AM CDT [facility] 1225 [facility], [place] [phone] Jameson Martin OD 1225 [place] [address] documented as of this encounter Visit Diagnoses Not on filedocumented in this encounter Care Teams Algologist Relationship Specialty Start Date End Date Dina Cloud PA-C [address] [place] [phone] PCP - General Physician Tax Accounting Manager 07/10/20 documented as of this encounter
--- OUTSIDE RECORDS SUMMARY | 2025-04-19 01:13 | XMS_ITS | Encounter Summary ---
Author Organization [facility] Health Address [address] [facility] [place] [address] Care Team Providers Care Brass Chaser Name Role Phone Dina Cloud PA-C Primary Care Provider Encounter Details Date Type Department Care Team (Late st Contact Info) Description 01/13/2023 Telephone [facility] - Centralized Scheduling [address] [place] [address] Nathalie Hassan, OD 10[address] [facility], [address] [place] [address] Social History Tobacco Use Types Packs/Day Years Used Date Smoking Tobacco: Every Day Cigarettes Smokeless Tobacco: Never Comments:using patches Alcohol Use Standard Drinks/Week Comments Yes 0 (1 standard drink = 0.6 oz pur e alcohol) occ PHQ-2 Answer Date Recorded PHQ2 TOTAL SCORE 0 09/29/2022 Sex and Gender Information Value Date Recorded Sex Assigned at Not on file Legal Sex Male 5:17 PM STRAIGHT SLICING MACHINE OPERATOR Gender Identity Not on file [...] Description 04/27/2025 9:45 AM CDT [facility] [address] [facility] [address] [place] [address] Josy Davila DO [address] [facility] 2L [place] [address] 05/25/2025 10:00 AM CDT Procedure visit [facility] - Dermatology [address] [place] [address], [place] [address] Robb Howell MD [address] [place] [address] 3L [place] [address] 05/30/2025 9:00 AM CDT [facility] [address] [place] [address], [place] [address] Meredith Weiss MD [address] [place] [address] 1L [place] [address] 06/15/2025 10:20 AM STRAIGHT SLICING MACHINE OPERATOR Appointment [facility] CAT SCAN [address] [place] [address] Becca Ford MD [address] [place] [address] 2L DIV [place] [address] 07/05/2025 1:00 PM STRAIGHT SLICING MACHINE OPERATOR Procedure visit [facility] - Endocrinology [address] [place] [address] [place] [address] Greg Obrien MD [address] [place] [address] 2L [place] [address] 07/18/2025 1:10 AM STRAIGHT SLICING MACHINE OPERATOR Clinical Support [facility] 1034 [facility], [address] [address] 08/04/2025 8:20 AM STRAIGHT SLICING MACHINE OPERATOR Office Visit [facility] - Dermatology [address] [place] [address], [place] [address] Robb Howell MD [address] [place] [address] 3L [place] [address] 08/22/2025 3:40 PM STRAIGHT SLICING MACHINE OPERATOR Office Visit [facility] - Endocrinology [address] [place] [address], [place] [address] Garry Tracey MD [address] [place] [address] 2L [place] [address] 09/28/2025 10:00 AM STRAIGHT SLICING MACHINE OPERATOR Office Visit [facility] - Nephrology [address] [place] [phone] Nataliia Cooper MD [address] [place] [address] 3L [place] [address] 10/05/2025 3:30 PM STRAIGHT SLICING MACHINE OPERATOR [facility] Pul[facility] [address] [place] [phone] Becca Ford MD [address] [place] [address] 2L DIV [place] [address] 10/24/2025 9:00 AM CDT Office Visit [facility] - Cardiology [facility]4 [facility], [address] [address] Daily Bravo MD [address] [place] [address] 04/10/2026 9:30 AM CDT Office Visit [facility] - Ophthalmology [facility], [place] [address] Jamesno Martin, LELA [address] [place] [phone] documented as of this encounter Visit Diagnoses Not on filedocumented in this encounter Care Teams Brass Chaser Relationship Specialty Start Date End Date Dina Cloud PA-C [address] [place] [phone] PCP - General Physician Private Household Worker 07/10/20 documented as of this encounter
--- OUTSIDE RECORDS SUMMARY | 2025-04-19 01:13 | XMS_ITS | Encounter Summary ---
Author Organization [facility] Address [address] [facility] [place] [address] Care Team Providers Care Dental Intern Name Role Phone Dina Cloud PA-C Primary Care Provider Reason for Visit * Reason Onset Date Comments Medication Prior Auth Request 03/04/2024 Encounter Details Date Type Department Care Team (Late st Contact Info) Description 03/04/2024 Telephone [facility] - Cardiology [address] [facility] 1120 [place] [address] Kika Ocampo PA [address] [place] [address] Medication Prior Auth Request Social History Tobacco [...] on file Legal Sex Male 5:17 PM JUMP ROLL OPERATOR Gender Identity Not on file Sexual [...] for a refill Patient Call Back number: [phone] documented in this encounter Plan of Treatment Upcoming Encounters Date Type Department Care Team (Late st Contact Info) Description 04/27/2025 9:45 AM CDT Office Visit [facility] - Urology [address] [place] [address] [address] [place] [address] Josy Davila DO 1225 [facility] 2L DIV OF UROLOGIC [place] [address] 05/25/2025 10:00 AM CDT Procedure visit [facility] - Dermatology [address] [place] [address], [place] [address] Robb Howell MD [address] [place] [address] 3L DEPT [place] [address] 05/30/2025 9:00 AM CDT Office Visit [facility] - Neurology [address] [place] [address], [place] [address] Meredith Weiss MD [address] [place] [address] 1L DIV [place] [address] 06/15/2025 10:20 AM JUMP ROLL OPERATOR Appointment [facility] CAT SCAN [address] [place] [address] Becca Ford MD [address] [place] [address] 2L DIV OF GEN INTERNAL [place] [address] 07/05/2025 1:00 PM JUMP ROLL OPERATOR Procedure visit [facility] - Endocrinology [address] [place] [address], [place] [address] Greg Obrien MD [address] [place] [address] 2L [place] [address] 07/18/2025 1:10 AM JUMP ROLL OPERATOR Clinical Support [facility] - Cardiology [address] [facility] 1120 [place] [address] 08/04/2025 8:20 AM JUMP ROLL OPERATOR [facility] [address] [place] [address], [place] [address] Robb Howell MD [address] [place] [address] 3L DEPT [place] [address] 08/22/2025 3:40 PM JUMP ROLL OPERATOR Office Visit [facility] - Endocrinology [address] [place] [address], [place] [address] Garry Tracey MD [address] [place] [address] 2L DIV OF END[place]CRINOLOG[place] [address] 09/28/2025 10:00 AM JUMP ROLL OPERATOR Office Visit [facility] - Nephrology [address] [place] [address], [place] [address] Nataliia Cooper MD [address] [place] [address] 3L Div [place] [address] 10/05/2025 3:30 PM JUMP ROLL OPERATOR [facility] [address] [place] [address] Becca Ford MD [address] [place] [address] 2L DIV OF GEN INTERNAL [place] [address] 10/24/2025 9:00 AM CDT Office Visit [facility] - Cardiology [address] [place] [phone] Daily Bravo MD [address] [place] [address] 04/10/2026 9:30 AM CDT [facility] [address] [place] [phone] Jameson Martin OD [address] [place] [phone] documented as of this encounter Visit Diagnoses Not on filedocumented in this encounter Care Teams Dental Intern Relationship Specialty Start Date End Date Dina Cloud PA-C [address] [place] [phone] PCP - General Physician Resource Efficiency Manager 07/10/20 documented as of this encounter
--- OUTSIDE RECORDS SUMMARY | 2025-04-19 01:13 | XMS_ITS | Encounter Summary ---
Author Organization [facility] Health Address [address] [facility] [place] [address] Care Team Providers Care Smeller Name Role Phone Dina Cloud PA-C Primary Care Provider Encounter Details Date Type Department Care Team (Late st Contact Info) Description 01/15/2023 Telephone [facility] - Centralized Scheduling [address] [place] [address] Nathalie Hassan, OD [address] [facility], [address] [place] [address] Social History Tobacco Use Types Packs/Day Years Used Date Smoking Tobacco: Every Day Cigarettes Smokeless Tobacco: Never Alcohol Use Standard Drinks/Week Comments Yes 0 (1 standard drink = 0.6 oz pur e alcohol) occ PHQ-2 Answer Date Recorded PHQ2 TOTAL SCORE 0 09/29/2022 Sex and Gender Information Value Date Recorded Sex Assigned at Not on file Legal Sex Male 5:17 PM CEO Gender Identity Not on file Sexual Orientation [...] Description 04/27/2025 9:45 AM CDT [facility] [address] [facility] [address] [place] [address] Josy Davila DO 1225 [facility] 2L [place] [address] 05/25/2025 10:00 AM CDT Procedure visit [facility] - Dermatology [address] [place] [address], [place] [address] Robb Howell MD [address] [place] [address] 3L [place] [address] 05/30/2025 9:00 AM CDT Office Visit [facility] - Neurology [address] [place] [address], [place] [address] Meredith Weiss MD [address] [place] [address] 1L [place] [address] 06/15/2025 10:20 AM CEO Appointment [facility] CAT SCAN [address] [place] [address] Becca Ford MD [address] [place] [address] 2L DIV [place] [address] 07/05/2025 1:00 PM CEO Procedure visit [facility] - Endocrinology [address] [place] [address] [place] [address] Greg Obrien MD [address] [place] [address] 2L [place] [address] 07/18/2025 1:10 AM CEO Clinical Support [facility] - Cardiology [address] [address] 08/04/2025 8:20 AM CEO Office Visit [facility] - Dermatology [address] [place] [address], [place] [address] Robb Howell MD [address] [place] [address] 3L [place] [address] 08/22/2025 3:40 PM CEO Office Visit [facility] - Endocrinology [address] [place] [address], [place] [address] Garry Tracey MD [address] [place] [address] 2L [place] [address] 09/28/2025 10:00 AM CEO Office Visit [facility] - Nephrology [address] [place] [phone] Nataliia Cooper MD [address] [place] [address] 3L [place] [address] 10/05/2025 3:30 PM CEO [facility] [address] [place] [phone] Becca Ford MD [address] [place] [address] 2L DIV OF [place] [address] 10/24/2025 9:00 AM CDT Office Visit [facility] - Cardiology [address] [place] [phone] Daily Bravo MD [address] [place] [address] 04/10/2026 9:30 AM CDT Office Visit [facility] - Ophthalmology 1225 [place] [address] Jameson Martin, LELA 1225 [place] [phone] documented as of this encounter Visit Diagnoses Not on filedocumented in this encounter Care Teams Smeller Relationship Specialty Start Date End Date Dina Cloud PA-C [address] [place] [phone] PCP - General Physician Public Safety Police 07/10/20 documented as of this encounter
--- OUTSIDE RECORDS SUMMARY | 2025-04-19 01:13 | XMS_ITS | Encounter Summary ---
Author Organization [facility] Healthcare Address [address] [place] [address] Care Team Providers Care Crabber Name Role Phone Dina Cloud Primary Care Provider + Reason for Visit * Reason Onset Date Comments Procedure question/concern 03/20/2025 Encounter Details Date Type Department Care Team (Late st Contact Info) Description 03/20/2025 Telephone [facility] [place] [facility] [address] [facility] [address] [place] [address] Nam De Los Santos MD [address] [place] [address] Procedure question/concern Social History Tobacco Use Types Packs/Day Years Used Date Smoking Tobacco: Every Day AUDIT-C Answer Date Recorded Q1: How often [...] file Legal Sex Male 9:27 PM SUPERVISOR PLEATING Gender Identity Not on file Sexual Orientation Not on file documented as of this encounter Miscellaneous Notes * Telephone Encounter - Vivien Schumacher RN - 03/20/2025 10:58 AM CDT documented in this encounter Plan of Treatment Not on file documented as of this encounter Goals Goal Patient Goal Type Associated Problems Recent Progress Patient-Stated? Author CCM Chronic Pain Care Plan Chronic Care Management Worsening( 9:41 AM CDT) No Mehreen Doe RN Note: Problem: Chronic Pain Goals: 1. Minimize further functional decline 2. Maximize quality of life 3. Control pain Strategies: - Activity/exercise program recommendation - Conservative stepwise pain medicine strategy with multi-disciplinary approach - Recommend healthy lifestyle strategies and compensatory methods as needed documented as of this encounter Visit Diagnoses Not on filedocumented in this encounter Care Teams Crabber Relationship Specialty Start Date End Date Dina Cloud PA PCP - General Physician Ion Implant Machine Operator 08/28/23 documented as of this encounter
--- OUTSIDE RECORDS SUMMARY | 2025-04-19 01:13 | XMS_ITS | Encounter Summary ---
Author Organization [facility] Address [address] [place] [address] Phone Care Team Providers Care Stone Banker Name Role Phone Dina Cloud PAC Primary Care Provider + [phone] Lefty Sousa MD Unavailable Encounter Details Date Type Department Care Team (Late st Contact Info) Description 07/04/2021 Telephone [facility] [address] [place] [address] Lefty Sousa MD [address] [facility] [address] [address] Social History Tobacco Use Types [...] on file Legal Sex Male 11:32 AM CASE FITTER Gender Identity Not on file Sexual Orientation Not on file documented as of this encounter Miscellaneous Notes * Telephone Encounter - Monique Roberson - 07/04/2021 4:19 PM CST CALLED TO RESCHEDULE PATIENTS NO SHOW APPT, LEFT VM LETTER SENT OUT. FITTER documented in this encounter Plan of Treatment Upcoming Encounters Date Type Department Care Team (Late st Contact Info) Description 06/16/2025 10:45 AM CASE FITTER Office Visit [facility] [address] [place] [phone] Lefty Sousa MD [address] [facility] [address] [address] documented as of this encounter Visit Diagnoses Not on filedocumented in this encounter Additional Health Concerns Assessment Noted Time PHQ-9 Depression Total Score: 0 04/26/20 9:02 AM CDT documented as of this encounter Care Teams Stone Banker Relationship Specialty Start Date End Date Dina Cloud PAC [address] [place] [address] PCP - General Physician Pourer Metal 05/25/20 Lefty Sousa MD [address] [place] [phone] Consulting Physician Hematology and Oncology 01/03/21 documented as of this encounter
--- OUTSIDE RECORDS SUMMARY | 2025-04-19 01:13 | XMS_ITS | Encounter Summary ---
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 Y WHEEL MOLDER documented in this encounter Plan of Treatment Upcoming Encounters Date Type Department Care Team (Late st Contact Info) Description 06/16/2025 10:45 AM EMERY WHEEL MOLDER Office Visit [facility] [address] [place] [phone] Lefty Sousa MD [address] [facility] [address] [place] [address] documented as of this encounter Visit Diagnoses Not on filedocumented in this encounter Additional Health Concerns Assessment Noted Time PHQ-9 Depression Total Score: 0 05/17/20 20 8:28 AM CDT documented as of this encounter Care Teams Home Companion Relationship Specialty Start Date End Date Dina Cloud PAC [facility] [place] [address] PCP - General Physician Senior Corporate Strategy Manager 05/25/20 Lefty Sousa MD [address] [place] [phone] Consulting Physician Hematology and Oncology 01/03/21 documented as of this encounter
--- OUTSIDE RECORDS SUMMARY | 2025-04-19 01:13 | XMS_ITS | Encounter Summary ---
Author Organization [facility] Health Address [address] [facility] [place] [address] Care Team Providers Care Territory Sales Consultant Name Role Phone Dina Cloud PA-C Primary Care Provider Encounter Details Date Type Department Care Team (Late st Contact Info) Description 01/26/2023 Telephone [facility] - Centralized Scheduling [address] [place] [address] Garry Tracey MD [address] [place] [address] Social History Tobacco Use Types Packs/Day Years Used Date Smoking Tobacco: Every Day Cigarettes Smokeless Tobacco: Never Alcohol Use Standard Drinks/Week Comments Yes 0 (1 standard drink = 0.6 oz pur e alcohol) occ PHQ-2 Answer Date Recorded PHQ2 TOTAL SCORE 0 09/29/2022 Sex and Gender Information Value Date Recorded Sex Assigned at Not on file Legal Sex Male 5:17 PM PARK WARDEN Gender Identity Not on file Sexual Orientation [...] they need the glucose reader called into [facility] on [address] in [place] [phone] * Telephone Encounter - Fam Wilkerson - 01/26/2023 10:52 AM CDT PT needs Freestyle Raj 2 sensor orders sent to [facility] urgently, He has not been able to read glucose levels for 10 days Verified: [phone] Lexi Caregiver documented in this encounter Plan of Treatment Upcoming Encounters Date Type Department Care Team (Late st Contact Info) Description 04/27/2025 9:45 AM CDT Office Visit [facility] - Urology [address] [place] [address] [address] [place] [phone] Josy Davila DO [address] [place] [address] 2L [place] [phone] 05/25/2025 10:00 AM CDT [facility] [address] [place] [address], [place] [phone] Robb Howell MD [address] [place] [address] [address]L [place] [address] 05/30/2025 9:00 AM CDT Office Visit [facility] - Neurology [address] [place] [address], [place] [phone] Meredith Weiss MD [address] [place] [address] 1L [place] [phone] 06/15/2025 10:20 AM PARK WARDEN Appointment [facility] CAT SCAN [address] [place] [address] Becca Ford MD [address] [place] [address] 2L DIV [place] [address] 07/05/2025 1:00 PM PARK WARDEN [facility] [address] [place] [address], [place] [address] Greg Obrien MD [address] [place] [address] 2L [place] [address] 07/18/2025 1:10 AM P[place] WARDEN Clinical Support [facility] - Cardiology [address] [facility] [address] [place] [phone] 08/04/2025 8:20 AM PARK WARDEN Office [facility] Dermatology [address] [place] [address], [place] [address] Robb Howell MD [address] [place] [address] [address] [place] [address] 08/22/2025 3:40 PM PARK WARDEN Office [facility] - Endocrinology [address] [place] [phone] Garry Tracey MD [address] [place] [address] 2L [place] [address] 09/28/2025 10:00 AM P[place] WARDEN Office [facility] - Nephrology [address] [place] [phone] Nataliia Cooper MD [address] [place] [address] 3L [place] [address] 10/05/2025 3:30 PM PARK WARDEN Office Visit [facility] - Pulmonology [address] [facility], [place] [address] Becca Ford MD [address] DIV OF [facility] [place] [address] 10/24/2025 9:00 AM CDT Office Visit [facility] - Cardiology [address] [facility], [address] [phone] Daily Bravo MD [address] [address] 04/10/2026 9:30 AM CDT Office Visit [facility] - Ophthalmology [address] [facility], [place] [address] Jameson Martin OD [address] [place] [address] documented as of this encounter Visit Diagnoses Not on filedocumented in this encounter Care Teams Territory Sales Consultant Relationship Specialty Start Date End Date Dina Cloud PA-C [address] [place] [phone] PCP - General Physician Director Clinical Operations 07/10/20 documented as of this encounter
[2025-04-19 09:09] VITALS: BP 150/92; PULSE 102; RESP 16; TEMP 36.3; O2SAT 98; BMI 32.3
[2025-04-19] MEDS: LACTATED RINGERS 1,000 ML 150 ML IV CONT (09:34)
[2025-04-19] MEDS: SIMETHICONE ORAL SUSPENSION 20 MG/0.3 ML 30 ML BOTTLE 1.8 ML PO (09:36)
--- NOTE | 2025-04-19 09:37 | WPDANESEPPF ---
Anes - Initial Pre Proc Eval Procedure: Operation Date: 04/19/25 10:30 Proposed Procedures p Esophagogastroduodenoscopy - Benjamín He MD Date/Time: 04/19/25 09:37 Surgeon: Benjamín He MD Pre Op Diagnosis: Dysphagia, unspecified Patient Data Age: 65 Gender: M Height: 1.73 m Weight: 96.5 kg Last Vital Signs Temp 97.3 F L 04/19/25 09:09 Pulse 102 H 04/19/25 09:09 Resp 16 04/19/25 09:09 BP 150/92 H 04/19/25 09:09 Pulse Ox 98 04/19/25 09:09 O2 Del Method Room Air 04/19/25 09:09 Allergies Allergy/AdvReac Type Severity Reaction Status Date / Time Penicillins Allergy Unknown Other Verified 04/19/25 09:17 Home Medications ?Medication ?Instructions ?Recorded ?Confirmed ?Type amitriptyline 100 mg tablet 100 mg PO HS 03/12/20 04/19/25 History atorvastatin 80 mg tablet 80 mg PO HS 03/12/20 04/19/25 History clopidogrel 75 mg tablet 75 mg PO DAILY 03/12/20 04/19/25 History ergocalciferol (vitamin D2) 1,250 1,250 mcg PO WEEKLY 03/12/20 04/19/25 History mcg (50,000 unit) capsule folic acid 1 mg tablet 1 mg PO DAILY 03/12/20 04/19/25 History levetiracetam 250 mg tablet 250 mg PO TID 03/12/20 04/19/25 History aspirin 81 mg chewable tablet 81 mg PO DAILY 05/28/20 04/19/25 History blood-glucose sensor (Dexcom G7 02/23/23 04/11/25 History Sensor device) blood-glucose,turf farm worker,cont 02/23/23 04/11/25 History (Dexcom G7 Speech And Language Clinician) empagliflozin 10 mg tablet 10 mg PO DAILY 02/23/23 04/19/25 History (Jardiance) famotidine 20 mg tablet 20 mg PO BID 02/23/23 04/19/25 History oxybutynin chloride 15 mg 15 mg PO DAILY 02/23/23 04/19/25 History tablet,extended release 24 hr tamsulosin 0.4 mg capsule 0.4 mg PO HS 02/23/23 04/19/25 History gabapentin 600 mg tablet 600 mg PO TID 09/16/24 04/19/25 History dulaglutide 3 mg/0.5 mL 3 mg subcut WEEKLY 10/17/24 04/19/25 History subcutaneous pen injector (Trulicity) duloxetine 30 mg capsule,delayed 30 mg PO DAILY 10/17/24 04/19/25 History release hydroxyurea 500 mg capsule 500 mg PO DAILY 10/17/24 04/19/25 History metoprolol succinate 25 mg 25 mg PO DAILY 10/17/24 04/19/25 History tablet,extended release 24 hr pen needle, diabetic 31 gauge x 10/17/24 12/08/24 History 5/16 (TRUEplus Pen Needle) sildenafil 100 mg tablet 100 mg PO Q24H PRN as needed 10/17/24 04/11/25 History hydrochlorothiazide 12.5 mg capsule 12.5 mg PO QAM 30 days #30 caps 10/19/24 04/19/25 Rx sucralfate 100 mg/mL oral See Rx Instructions .Route 12/14/24 04/19/25 Rx suspension .COMPLEX #1,200 mL insulin glargine 100 unit/mL (3 40 unit subcut QPM 02/01/25 04/19/25 History mL) subcutaneous pen (Lantus Solostar U-100 Insulin) insulin lispro 100 unit/mL 1 sliding scale dose subcut DAILY 02/01/25 04/19/25 History subcutaneous pen pantoprazole 40 mg tablet,delayed See Rx Instructions .Route 03/07/25 04/19/25 Rx release .COMPLEX #30 tabs evolocumab 420 mg/3.5 mL 420 mg subcut .COMPLEX 04/11/25 04/19/25 History subcutaneous wearable injector (Repatha Pushtronex) lisinopril 20 mg tablet 20 mg PO DAILY 04/11/25 04/19/25 History mecobalamin (vitamin B12) 1,000 1,000 mcg PO DAILY 04/11/25 04/19/25 History mcg chewable tablet (B12 Active) Laboratory Tests 04/19/25 09:27 POC Capillary Glucose 96 mg/dl (65-105) Patient hx anesthesia problems: none Family hx anesthesia problems: none Results Review: All pre-operative results and documents have been reviewed as part of the pre-operative evaluation. [facility] Past Medical History Medical History Leukemia History of heart attack Pacemaker Prostate abscess Chronic anemia Chronic obstructive pulmonary disease Tobacco dependence Type 2 diabetes mellitus 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 January 2019: Left parietooccipital CVA presenting with confusion and aphasia. Hard of hearing Chronic lower back pain Blood dyscrasia Blood dyscrasia versus malignancy; followed by a logistical engineer in [place]. Obstructive sleep apnea Refuses CPAP. Chronic kidney disease, stage 3 Baseline creatinine is around 1.4. Vitamin D deficiency Coronary artery disease Patient reports history of 2 MIs; no history of cardiac catheterization. 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 Surgical History Surgical History History of back surgery History of permanent cardiac pacemaker placement Due to sick sinus rhythm. History of transurethral resection of prostate History of hernia surgery Family History Family History Mother Cerebrovascular accident Acute myocardial infarction Hypertension Father Diabetes mellitus Cerebrovascular accident Hypertension Social History Social History Social History: Surrogate decision maker: Darling Rivers (sister). Code status: Full code. Smoking packs per day: 1 Smoking cigarettes per day: 20.0 Years smoked: 45 Smoking pack-years: 45.00 Smoking status: Current every day smoker Tobacco type: cigarettes Second hand tobacco smoke exposure: Yes Alcohol intake: current Drinks per week: 1 Substance use: current Substance use type: marijuana and crack/cocaine Other substance usage details: daily Last use: 11/2024 Do You Feel Safe in your Home?: Yes Lack of Transportation: YES Lack of Food: Never True Current Housing: I Have Housing Concerned About Future Housing: No Difficulty Paying Gas/Electric Bills: No Difficulty Paying for Meds: No Currently Unemployed: YES Education: Don't Know Difficulty w/ Childcare or Family Care: No Living arrangements: alone Additional living arrangements comments: The patient lives in his own apartment in [place]. Occupation/Education: unemployed Additional occupation/education comments: On disability. Spiritual care concerns: No Anes - Eval Final PreProcedure Day of Procedure 04/19/25 09:37 Patient weight: obese Lungs: normal air movement Airway: Mallampati scale class II and special considerations (Edentulous. ) Neurological: alert and oriented Last oral intake: >/= 8 hours ASA classification: III Emergent: no Anesthetic plan: proceed Anesthesia type and monitoring: general GIVS and standard monitoring Results Review: All pre-operative results and documents have been reviewed as part of the pre-operative evaluation. HTN, hyperlipidemia, hx of pacemaker, substance use. Pt has known carotid disease, on plavix (held for EGD). Informed Consent: The patient's anesthetic plan and its attendant risks and benefits were discussed with the patient/family/POA. Questions were solicited and answers provided to the satisfaction of the patient/family/POA.
--- NOTE | 2025-04-19 09:52 | PM.IMHP ---
H&P: HPI History of Present Illness Date/Time: 04/19/25 09:52 Chief Complaint: Dysphagia Narrative: this patient had an attempted EGD 2 months ago, however the stomach was full with food rests and the procedure was postponed. In addition he had not stopped Plavix at that time. He comes now after having had a 2 day clear liquid diet and stop Plavix 5 days ago. Review of Systems Review of Systems: All systems reviewed & are unremarkable except as noted in HPI and below PMFSH Past Medical History Medical History Leukemia History of heart attack Pacemaker Prostate abscess Chronic anemia Chronic obstructive pulmonary disease Tobacco dependence Type 2 diabetes mellitus 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 January 2019: Left parietooccipital CVA presenting with confusion and aphasia. Hard of hearing Chronic lower back pain Blood dyscrasia Blood dyscrasia versus malignancy; followed by a tai chi instructor in [place]. Obstructive sleep apnea Refuses CPAP. Chronic kidney disease, stage 3 Baseline creatinine is around 1.4. Vitamin D deficiency Coronary artery disease Patient reports history of 2 MIs; no history of cardiac catheterization. 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 Surgical History Surgical History History of back surgery History of permanent cardiac pacemaker placement Due to sick sinus rhythm. History of transurethral resection of prostate History of hernia surgery Family History Family History Mother Cerebrovascular accident Acute myocardial infarction Hypertension Father Diabetes mellitus Cerebrovascular accident Hypertension Social History Social History Social History: Surrogate decision maker: Darling Rivers (sister). Code status: Full code. Smoking packs per day: 1 Smoking cigarettes per day: 20.0 Years smoked: 45 Smoking pack-years: 45.00 Smoking status: Current every day smoker Tobacco type: cigarettes Second hand tobacco smoke exposure: Yes Alcohol intake: current Drinks per week: 1 Substance use: current Substance use type: marijuana and crack/cocaine Other substance usage details: daily Last use: 11/2024 Do You Feel Safe in your Home?: Yes Lack of Transportation: YES Lack of Food: Never True Current Housing: I Have Housing Concerned About Future Housing: No Difficulty Paying Gas/Electric Bills: No Difficulty Paying for Meds: No Currently Unemployed: YES Education: Don't Know Difficulty w/ Childcare or Family Care: No Living arrangements: alone Additional living arrangements comments: The patient lives in his own apartment in [place]. Occupation/Education: unemployed Additional occupation/education comments: On disability. Spiritual care concerns: No Meds Home Medications and Allergies Home Medications ?Medication ?Instructions ?Recorded ?Confirmed ?Type amitriptyline 100 mg tablet 100 mg PO HS 03/12/20 04/19/25 History atorvastatin 80 mg tablet 80 mg PO HS 03/12/20 04/19/25 History clopidogrel 75 mg tablet 75 mg PO DAILY 03/12/20 04/19/25 History ergocalciferol (vitamin D2) 1,250 1,250 mcg PO WEEKLY 03/12/20 04/19/25 History mcg (50,000 unit) capsule folic acid 1 mg tablet 1 mg PO DAILY 03/12/20 04/19/25 History levetiracetam 250 mg tablet 250 mg PO TID 03/12/20 04/19/25 History aspirin 81 mg chewable tablet 81 mg PO DAILY 05/28/20 04/19/25 History blood-glucose sensor (Dexcom G7 02/23/23 04/11/25 History Sensor device) blood-glucose,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 operator electron beam,cont 02/23/23 04/11/25 History (Dexcom G7 Head Of Biology) empagliflozin 10 mg tablet 10 mg PO DAILY 02/23/23 04/19/25 History (Jardiance) famotidine 20 mg tablet 20 mg PO BID 02/23/23 04/19/25 History oxybutynin chloride 15 mg 15 mg PO DAILY 02/23/23 04/19/25 History tablet,extended release 24 hr tamsulosin 0.4 mg capsule 0.4 mg PO HS 02/23/23 04/19/25 History gabapentin 600 mg tablet 600 mg PO TID 09/16/24 04/19/25 History dulaglutide 3 mg/0.5 mL 3 mg subcut WEEKLY 10/17/24 04/19/25 History subcutaneous pen injector (Trulicity) duloxetine 30 mg capsule,delayed 30 mg PO DAILY 10/17/24 04/19/25 History release hydroxyurea 500 mg capsule 500 mg PO DAILY 10/17/24 04/19/25 History metoprolol succinate 25 mg 25 mg PO DAILY 10/17/24 04/19/25 History tablet,extended release 24 hr pen needle, diabetic 31 gauge x 10/17/24 12/08/24 History 5/16 (TRUEplus Pen Needle) sildenafil 100 mg tablet 100 mg PO Q24H PRN as needed 10/17/24 04/11/25 History hydrochlorothiazide 12.5 mg capsule 12.5 mg PO QAM 30 days #30 caps 10/19/24 04/19/25 Rx sucralfate 100 mg/mL oral See Rx Instructions .Route 12/14/24 04/19/25 Rx suspension .COMPLEX #1,200 mL insulin glargine 100 unit/mL (3 40 unit subcut QPM 02/01/25 04/19/25 History mL) subcutaneous pen (Lantus Solostar U-100 Insulin) insulin lispro 100 unit/mL 1 sliding scale dose subcut DAILY 02/01/25 04/19/25 History subcutaneous pen pantoprazole 40 mg tablet,delayed See Rx Instructions .Route 03/07/25 04/19/25 Rx release .COMPLEX #30 tabs evolocumab 420 mg/3.5 mL 420 mg subcut .COMPLEX 04/11/25 04/19/25 History subcutaneous wearable injector (Repatha Pushtronex) lisinopril 20 mg tablet 20 mg PO DAILY 04/11/25 04/19/25 History mecobalamin (vitamin B12) 1,000 1,000 mcg PO DAILY 04/11/25 04/19/25 History mcg chewable tablet (B12 Active) Allergies Allergy/AdvReac Type Severity Reaction Status Date / Time Penicillins Allergy Unknown Other Verified 04/19/25 09:17 Vital Signs Vital Signs - 24 hr 04/19/25 09:09 Temperature 97.3 F L Pulse Rate 102 H Respiratory Rate 16 Blood Pressure 150/92 H Pulse Oximetry 98 Oxygen Delivery Room Air Exam Const: General: cooperative and healthy appearing Resp: Effort & Inspection: normal respiratory effort and able to speak in complete sentences Auscultation: clear to auscultation bilaterally Cardio: Rate: regular rate Rhythm: regular rhythm GI: Inspection: normal to inspection GI Palp: No No hepatosplenomegaly present Auscultation: normal bowel sounds Rectal Exam: deferred Skin: General skin exam: normal color Psych: Appearance: grossly normal Mental Status: mental status grossly normal Assessment and Plan Assessment and plan (1) Dysphagia: Code(s): R13.10 - Dysphagia, unspecified Status: Acute Assessment and Plan: The patient is deemed a good candidate for the procedure. Consent signed. Will proceed.
--- NOTE | 2025-04-19 10:13 | S_PTH ---
PATIENT: Basilio Riley LOC: [facility] U#:[id number] AGE/SX: 65/M ROOM: RE04/19/[address]: Benjamín He MD : 1960 BED: DIS: 04/19/2025 SPEC #: [id number] RECD: 04/19/25 13:34 STATUS: RUDY WADE #: [id number] ROZ: 04/19/25 10:[address]: Benjamín He DEPT: [facility] Surgical RECD BY: Nelly Ovalle ENTERED: 04/19/25 13:35 SP TYPE: Surgical OTHR DR: Dina Cloud, PA Tissues: A - Gastric Biopsy B - Gastric Biopsy C - Esophageal Biopsy Procedures: Hematoxylin and Eosin Stain Gross and Microscopic Level 4 H.Pylori
[2025-04-19 10:19] VITALS: BP 101/61; PULSE 95; RESP 18; O2SAT 96
[2025-04-19 10:29] VITALS: BP 116/68; PULSE 92; RESP 18; O2SAT 100
[2025-04-19 10:39] VITALS: BP 118/63; PULSE 87; RESP 18; O2SAT 100
== END 2025-04-19 10:51 | disposition home or self-care (01) ==
PROVIDERS: PCP Physician Assistant; Visit Provider Internal Medicine Gastroenterology
PROC: 0DJ08ZZ Inspection of Upper Intestinal Tract, Via Natural or Artificial Opening Endoscopic (ICD-10-PCS; CPT 43239; principal; 2025-04-19 10:30)
DX: K29.50 Unspecified chronic gastritis without bleeding (principal); K31.89 Other diseases of stomach and duodenum; E78.5 Hyperlipidemia, unspecified; D64.9 Anemia, unspecified; E11.42 Type 2 diabetes mellitus with diabetic polyneuropathy; E11.22 Type 2 diabetes mellitus with diabetic chronic kidney disease; I12.9 Hypertensive chronic kidney disease with stage 1 through stage 4 chronic kidney disease, or unspecified chronic kidney disease; N18.30 Chronic kidney disease, stage 3 unspecified; E55.9 Vitamin D deficiency, unspecified; I25.10 Atherosclerotic heart disease of native coronary artery without angina pectoris; J44.9 Chronic obstructive pulmonary disease, unspecified; I25.2 Old myocardial infarction; G47.33 Obstructive sleep apnea (adult) (pediatric); G89.29 Other chronic pain; M54.50 Low back pain, unspecified; F17.210 Nicotine dependence, cigarettes, uncomplicated; F12.90 Cannabis use, unspecified, uncomplicated; F14.90 Cocaine use, unspecified, uncomplicated; E66.9 Obesity, unspecified; Z68.32 Body mass index [BMI] 32.0-32.9, adult; Z79.02 Long term (current) use of antithrombotics/antiplatelets; Z79.82 Long term (current) use of aspirin; Z79.84 Long term (current) use of oral hypoglycemic drugs; Z79.85 Long-term (current) use of injectable non-insulin antidiabetic drugs; Z79.4 Long term (current) use of insulin; Z98.890 Other specified postprocedural states; Z98.1 Arthrodesis status; Z95.0 Presence of cardiac pacemaker; Z85.6 Personal history of leukemia; Z86.79 Personal history of other diseases of the circulatory system; Z82.49 Family history of ischemic heart disease and other diseases of the circulatory system
CPT/HCPCS: 43239; 82948; 88305; 88342; J2003; J2704; J7120

== ENCOUNTER 2025-06-12 08:00 | Outpatient (RCR) | payer OTHER, SELFPAY ==
--- NOTE | 2025-04-05 11:02 | OPREHPOC ---
Outpatient Therapy Plan of Care This is a Multidisciplinary Plan of Care that may contain components documented by all disciplines (PT, OT, and ST.) PT Problem 1 PT Problem #1 Knowledge Deficit PT Goal 1 Goal / Goal Update [place] with HEP Target Visit 10 PT Goal 2 Goal / Goal Update Report no pain greater than 5/10 consistently 7-3-25 d/c pt stopped attending PT goals not addressed Target Visit 10 PT Problem 2 PT Problem #2 Pain PT Goal 1 Goal / Goal Update * pt report pain rating at worst of 02/09 Target Visit 10 PT Problem 3 PT Problem #3 Impaired Strength PT Goal 1 Goal / Goal Update 1* increase R and L LE strength to gross 4+/5 to improve mobility and transfer skills Target Visit 10 PT Problem 4 PT Problem #4 Impaired Functional Mobility PT Goal 1 Goal / Goal Update 1* 2 minute walking test distance of 300' to improve community mobility 2* pt report walking/standing tolerance of 45 minutes, for home activity and community outings Target Visit 10 PT Problem 5 PT Problem #5 Impaired Flexibility PT Goal 1 Goal / Goal Update improve hip ROM, to improve mobility and decrease pain: 1* pt perform active R and L hip flexion and IR without pain increase hamstring length with supine SLR to 45' 2* R 3* L Target Visit 10
--- NOTE | 2025-04-05 11:02 | PTOPEVAL1 ---
Assessment and note entered by Jessica Marquez PT Evaluation Information Assessment Status Evaluation ICD-10 Condition Codes (PT) Pain in low back M54.50 Other ICD-10 Condition Codes ( M46.1 sacroiliitis PT) Onset October 2024 Subjective Information chronic back pain, getting worse; saw pain management dr- want to do injections, but have to have therapy first; in the past 6 months have fallen about 1x/month-- black out, feel like going to faint or legs give out; sometimes have warning and can get to chair before hit the floor; when on the floor, can get himself up off floor by pulling self up on couch; follow with patternmaker helper, pain management, cancer dr, 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, 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 ; recent MRI at [facility], was told it was really bad and need injections have had PT here in the past-- aquatic therapy and exercises; activity: use cane all the time for walking; have caregiver helps with cleaning house, dishes, cooking, transportation; is able to do bathing and dressing without help; not doing any exercises for back--hurts too much; goal: walk better, not have as much pain Reported Pain Level Pain Score 9: Self Report Additional Pain Score Comments pain range in the past week 8-9/10; center and bilateral low back; no radicular pain increase pain: walking/standing 30 minutes; sitting 30-60 minutes decrease pain: change positions, ice, smoke marijuana not taking over the counter meds- they do not help was taken off pain pills, was told on them for 5 years and have to go to pain management report with sleeping back pain does not wake him up Assessment PT Clinical Summary Rommel has the diagnosis of sacroiliitis. He has chronic back pain and has had PT here in the past. Back Index self rating of 86% limitation of activity level. He requires a caregiver to assist with home tasks and transportation. Medical history includes: chronic back pain, diabetes with neuropathy, CVA with L slight residual weakness, decrease thyroid, skin cancer, anemia--under the care of pain management, cardiology, diabetes dr, oncologist. With the evaluation: poor standing posture, pain is increased with supine R and L hip flexion, IR motions and hamstring stretch/SLR; standing trunk extension more pain than flexion; 2 minute walking test with cane is 240'; Skilled PT services are indicated for land and aquatic therapy to increase strength and mobility, with modalities to decrease pain and education for HEP and pain control techniques. Plan of Care Interventions Aquatic Therapy,Hot Pack/Cold Pack,Manual Therapy, Mechanical Traction,Neuro Re-education,Patient/ Caregiver Education,Therapeutic Activities, Therapeutic Exercise,Other Other Interventions taping PT Services Indicated Yes Treatment Frequency and 1-2 x/wk for 10 visits Duration These treatments will address the objective and functional deficits as defined above. The patient will be advanced safely and appropriately in order for the patient to progress towards his/her prior level of function. Additional exercises will be introduced and as well as a comprehensive home exercise program upon discharge, if needed, ?to ensure carryover of functional gains achieved in the clinic. This treatment plan has been reviewed and agreement upon by the patient.
--- NOTE | 2025-06-12 08:47 | OPREHPOC ---
Outpatient Therapy Plan of Care This is a Multidisciplinary Plan of Care that may contain components documented by all disciplines (PT, OT, and ST.) PT Problem 1 PT Problem #1 Knowledge Deficit PT Goal 1 Goal / Goal Update Wilson with HEP 06-12-25 d/c goal met Target Visit 10 Progress Met PT Goal 2 Goal / Goal Update Report no pain greater than /10 consistently 02-02-25 d/c pt stopped attending PT goals not addressed Target Visit 10 PT Problem 2 PT Problem #2 Pain PT Goal 1 Goal / Goal Update * pt report pain rating at worst of 02/09 06-12-25 d/c goal not met; 04/12 is worst Target Visit 10 Progress Not Met PT Problem 3 PT Problem #3 Impaired Strength PT Goal 1 Goal / Goal Update 1* increase R and L LE strength to gross 4+/5 to improve mobility and transfer skills 06-12-25 d/c goal not met Target Visit 10 Progress Not Met PT Problem 4 PT Problem #4 Impaired Functional Mobility PT Goal 1 Goal / Goal Update 1* 2 minute walking test distance of 300' to improve community mobility 2* pt report walking/standing tolerance of 45 minutes, for home activity and community outings 06-12-25 d/c goals not met; #1 improved to 260' and #2 is 15 minutes Target Visit 10 Progress Not Met PT Problem 5 PT Problem #5 Impaired Flexibility PT Goal 1 Goal / Goal Update improve hip ROM, to improve mobility and decrease pain: 1* pt perform active R and L hip flexion and IR without pain increase hamstring length with supine SLR to 45' 2* R 3* L 06-12-25 d/c goals not met; #1 partially met for IR Target Visit 10 Progress Not Met
--- NOTE | 2025-06-12 08:47 | PTOPDC ---
Assessment and note entered by Jessica Marquez, PT Assessment Status Discharge ICD-10 Condition Codes (PT) Pain in low back M54.50 Other ICD-10 Condition Codes ( M46.1 sacroiliitis PT) Onset October 2024 Subjective Information on an antibiotics for the redness over the sutures from cancer surgery; been doing the exercises; like the water exercises; when he saw the neurologist, they want him to see the back dr again about surgery; pain dr told him that they will try back injections if therapy does not help; Reported Pain Level Pain Score Self Report Additional Pain Score Comments pain range in the past week ; center and bilateral low back; no radicular pain increase pain: walking/standing 15 minutes; sitting 30 minutes decrease pain: change positions, ice, smoke marijuana report with sleeping back pain does not wake him up have a back brace, use PRN, sometimes helps Assessment PT Clinical Summary Basilio has received a total of 10 PT sessions. With today's assessment, compared to the initial eval: pain rating is the same at ; reported standing/walking tolerance has decreased from 30 to 15 minutes; sitting tolerance decreased from 30-60 to 30 minutes; continues to sleep without awakening due to back pain; self assessment with Back index self rating from 86 to 64% limitation in activity level; hamstring flexibility is the same and increases back pain bilateral LE; supine hip flexion is same and increases pain, but IR no longer increases pain; 2 minute walking test distance with the cane from 240 to 260'; education completed for HEP, pain management techniques for balance of activity/rest , use of heat PRN, use back brace PRN, frequent positional changes. The goals were partially achieved. Discharge PT, He is to continue with the home exercises- land and aquatic. Plan of Care PT Services Indicated No
== END 2025-06-12 13:05 | disposition home or self-care (01) ==
LOC: ANHPT 08:00
PROVIDERS: PCP Physician Assistant
DX: M54.50 Low back pain, unspecified (principal)
CPT/HCPCS: 97110; 97113; 97140; 97162; 97530

== ENCOUNTER 2025-07-30 12:52 | Inpatient (IN) | payer OTHER, SELFPAY ==
[2025-07-30] VITALS (14 sets, daily range): BP systolic 134–175; BP diastolic 33–97; PULSE 51–101; RESP 12–23; TEMP 36.4–37.2; O2SAT 90–100; BMI 30.6
--- NOTE | ~2025-07-30 | XR_ITS ---
EXAMINATION: XR chest 1V DATE: 07/30/2025 17:29 INDICATION: TECHNIQUE: A single frontal view of the chest was obtained. COMPARISON: Chest x-ray of 12/29/2024 FINDINGS: Significant cardiomegaly with pacemaker device in place. Lungs are free of acute processes. IMPRESSION: 1. No acute findings. Significant cardiomegaly with pacemaker in place. Reviewed, dictated and finalized at location T. [facility] MAGISTRATE
--- NOTE | ~2025-07-30 | CT_ITS ---
EXAMINATION: CT brain wo con DATE: 07/30/2025 17:26 INDICATION: Altered mental status. TECHNIQUE: Computed tomography (CT) of the head was performed without intravenous contrast. The mA was adjusted according to patient size. Iterative reconstruction technique was employed. The dose-length product was 756.67 mGy-cm. COMPARISON: CT brain dated 10/17/2024. FINDINGS: No acute intracranial bleed. 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 No midline shift. IMPRESSION: 1. No acute findings. Old infarct with encephalomalacia of the occipital lobes on both sides similar to prior study. Reviewed, dictated and finalized at location [employer]. [employer]
--- NOTE | ~2025-07-30 | CT_ITS ---
EXAMINATION: CT abdomen pelvis wo con DATE: 07/30/2025 20:43 INDICATION: Abdomen tenderness TECHNIQUE: Computed tomography (CT) of the abdomen and pelvis was performed without intravenous contrast. The dose-length product was 891.33 mGy-cm. Automated exposure control and iterative reconstruction technique were employed. COMPARISON: CT dated 09/16/2024 FINDINGS: Lung bases unremarkable. Heart size normal. No significant pleural or pericardial effusion. The liver, spleen, pancreas, adrenal glands and kidneys are unremarkable. Stable mild chronic perinephric stranding with mild fatty infiltration of the left fatty hilum. Consider pyelonephritis in the appropriate clinical setting. There is atherosclerosis of the aorta without evidence for aneurysm. Colonic diverticulosis without evidence for diverticulitis. No bladder is present. Small hiatal hernia. No lymphadenopathy. No abnormal pelvic masses or fluid collections. There are vertebroplasty changes within the L3 vertebra with superior endplate compression fracture. There is severe lumbar spondylosis at L4-5 and L5-S1. There is partially visualized spondylosis of the thoracic spine. IMPRESSION: 1. Mild infiltration of the left perinephric space and fatty hilum, suspicious for pyelonephritis. Correlate clinically. Reviewed, dictated and finalized at location [employer]
[2025-07-30 14:48] LABS: Hematocrit 44.1 % (42.0-52.0); Hemoglobin 15.7 g/dL (14.0-18.0); Immature Granulocyte Percent A 0.5 % (0-0.5); Lymphocytes Absolute Auto 4.04 K/mm3 (0.9-3.2); Mean Corpuscular HGB Conc 35.6 g/dl (32-36); Mean Corpuscular Hemoglobin 35.7 pg (26-34); Mean Corpuscular Volume 100.2 fl (80-100); Nucleated Red Blood Cells Absolute Auto 0.000 K/mm3 (0.0-0.012); Nucleated Red Blood Cells Perc 0.0 % (0.0-0.2); Platelet Count Result 371 k/mm3 (150-375); Red Blood Count 4.40 M/mm3 (4.6-6.20); White Blood Count 18.8 K/mm3 (4.5-10.0)
--- NOTE | 2025-07-30 15:00 | ED.NAVMDI ---
HPI - Nausea/Vomiting/Diarrhea General Chief complaint: Nausea/Vomiting/Diarrhea <Arabella Underwood APRN - Last Filed: 07/30/25 18:32> Stated complaint: not feeling well N/V <Arabella Underwood APRN - Last Filed: 07/30/25 18:32> Time Seen by Provider: 07/30/25 14:27 <Arabella Underwood APRN - Last Filed: 07/30/25 18:32> History of Present Illness HPI Narrative: Patient is a 65-year-old male who presents to the ER because ?I feel like crap. He reports his symptoms started yesterday. Patient denies any acute pain, shortness a breath, acute cough, or urinary symptoms. He reports yesterday he was vomiting. Patient sources a history of diabetes, pacemaker placement, CHF, COPD, coronary artery disease, high blood pressure. He told the triage nurse that he has not taken his medications in a month for unknown reasons. Patient deflects much of his medical history to his visitor who accompanied him to the ER. <Arabella Underwood APRN - Last Filed: 07/30/25 18:32> Related Data Home medications: Home Medications ?Medication ?Instructions ?Recorded ?Confirmed ?Last Taken ?Type amitriptyline 100 mg tablet 100 mg PO HS 03/12/20 04/19/25 04/18/25 History atorvastatin 80 mg tablet 80 mg PO HS 03/12/20 04/19/25 04/18/25 History clopidogrel 75 mg tablet 75 mg PO DAILY 03/12/20 04/19/25 04/11/25 History ergocalciferol (vitamin D2) 1,250 1,250 mcg PO WEEKLY 03/12/20 04/19/25 04/18/25 History mcg (50,000 unit) capsule folic acid 1 mg tablet 1 mg PO DAILY 03/12/20 04/19/25 04/18/25 History levetiracetam 250 mg tablet 250 mg PO TID 03/12/20 04/19/25 04/18/25 History aspirin 81 mg chewable tablet 81 mg PO DAILY 05/28/20 04/19/25 04/18/25 History blood-glucose sensor (Dexcom G7 02/23/23 04/11/25 Unknown History Sensor device) blood-glucose,nike athlete,cont 02/23/23 04/11/25 Unknown History (Dexcom G7 Clinical Research Director) empagliflozin 10 mg tablet 10 mg PO DAILY 02/23/23 04/19/25 04/18/25 History (Jardiance) famotidine 20 mg tablet 20 mg PO BID 02/23/23 04/19/25 04/18/25 History oxybutynin chloride 15 mg 15 mg PO DAILY 02/23/23 04/19/25 04/18/25 History tablet,extended release 24 hr tamsulosin 0.4 mg capsule 0.4 mg PO HS 02/23/23 04/19/25 04/18/25 History gabapentin 600 mg tablet 600 mg PO TID 09/16/24 04/19/25 04/18/25 History dulaglutide 3 mg/0.5 mL 3 mg subcut WEEKLY 10/17/24 04/19/25 04/16/25 History subcutaneous pen injector (Trulicity) duloxetine 30 mg capsule,delayed 30 mg PO DAILY 10/17/24 04/19/25 04/18/25 History release hydroxyurea 500 mg capsule 500 mg PO DAILY 10/17/24 04/19/25 04/18/25 History metoprolol succinate 25 mg 25 mg PO DAILY 10/17/24 04/19/25 04/19/25 History tablet,extended release 24 hr pen needle, diabetic 31 gauge x 10/17/24 12/08/24 Unknown History 12/16 (TRUEplus Pen Needle) sildenafil 100 mg tablet 100 mg PO Q24H PRN as needed 10/17/24 04/11/25 Unknown History insulin glargine 100 unit/mL (3 40 unit subcut QPM 02/01/25 04/19/25 04/18/25 History mL) subcutaneous pen (Lantus Solostar U-100 Insulin) insulin lispro 100 unit/mL 1 sliding scale dose subcut DAILY 02/01/25 04/19/25 04/18/25 History subcutaneous pen evolocumab 420 mg/3.5 mL 420 mg subcut .COMPLEX 04/11/25 04/19/25 04/18/25 History subcutaneous wearable injector (Repatha Pushtronex) lisinopril 20 mg tablet 20 mg PO DAILY 04/11/25 04/19/25 04/18/25 History mecobalamin (vitamin B12) 1,000 1,000 mcg PO DAILY 04/11/25 04/19/25 04/18/25 History mcg chewable tablet (B12 Active) <Arabella Underwood APRN - Last Filed: 07/30/25 18:32> Allergies/Adverse reactions: Allergies Allergy/AdvReac Type Severity Reaction Status Date / Time Penicillins Allergy Unknown Other Verified 07/30/25 14:35 <Arabella Underwood APRN - Last Filed: 07/30/25 18:32> Review of Systems Review of Systems: All systems reviewed & are unremarkable except as noted in HPI and below <Arabella Underwood APRN - Last Filed: 07/30/25 18:32> [facility] Past Medical History Medical History: Medical History Leukemia History of heart attack Pacemaker Prostate abscess Chronic anemia Chronic obstructive pulmonary disease Tobacco dependence Type 2 diabetes mellitus Cerebrovascular accident 2015: Right frontoparietal CVA with left hemiparesis. January 2019: Left parietooccipital CVA presenting with confusion and aphasia. 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 Obstructive sleep apnea Refuses CPAP. Chronic kidney disease, stage 3 Baseline creatinine is around 1.4. Vitamin D deficiency Coronary artery disease Patient reports history of 2 MIs; no history of cardiac catheterization. 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 <Arabella Underwood APRN - Last Filed: 07/30/25 18:32> Surgical History Surgical History: Surgical History History of back surgery History of permanent cardiac pacemaker placement Due to sick sinus rhythm. 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 no children. .disabled Code status: Full code. Smoking packs per day: 1 Smoking cigarettes per day: 20.0 Years smoked: 45 Smoking pack-years: 45.00 Smoking status: Current every day smoker Tobacco type: cigarettes Second hand tobacco smoke exposure: Yes Alcohol intake: current Drinks per week: 1 Substance use: current Substance use type: marijuana and crack/cocaine Other substance usage details: daily Last use: 11/2024 Lack of Transportation: YES Lack of Food: Never True Current Housing: I Have Housing Concerned About Future Housing: No Difficulty Paying Gas/Electric Bills: No Difficulty Paying for Meds: No Currently Unemployed: YES Education: Don't Know Difficulty w/ Childcare or Family Care: No Living arrangements: alone Additional living arrangements comments: The patient lives in his own apartment in [place]. Occupation/Education: unemployed Additional occupation/education comments: On disability. Spiritual care concerns: No <Arabella Underwood APRN - Last Filed: 07/30/25 18:32> Exam Narrative: GENERAL: Ill appearing, obese, non-toxic, in mild distress. HEAD: Normocephalic, atraumatic. NECK: Supple. No adenopathy, no masses. RESPIRATORY: Airway patent, respirations mildly labored. Diminished lower lobes. Clear to auscultation bilaterally, mild wheezing. CARDIOVASCULAR:+ pacemaker. Peripheral pulses 2+ and equal bilaterally. No excessive swelling to lower extremities ABDOMINAL: Soft, nontender, + distension. Normoactive BS. MUSCULOSKELETAL: Moves all extremities. Strength/ROM intact without gross deformities. SKIN: Warm, dry, normal color. No rashes. NEURO: A&O X 1-2. Speech clear. Cranial nerves II-XII intact. PSYCHIATRIC: Difficulty caring a conversation or answer questions. <Arabella Underwood APRN - Last Filed: 07/30/25 18:32> Course BREAKFAST MANAGER/PA Physician Supervision This visit was performed by both a physician and an Advanced Cotton Picker. I performed all aspects of the Medical Decision Making as documented. <Rick Mccauley MD - Last Filed: 07/30/25 19:57> Vital Signs Vital signs: Vital Signs Temperature 97.6 F 07/30/25 12:58 Pulse Rate 51 L 07/30/25 12:58 Respiratory Rate 16 07/30/25 12:58 Blood Pressure 134/92 H 07/30/25 12:58 Pulse Oximetry 98 07/30/25 12:58 Oxygen Delivery Room Air 07/30/25 12:58 Temperature 99 F 07/30/25 14:30 Pulse Rate 98 07/30/25 18:47 Respiratory Rate 20 07/30/25 18:47 Blood Pressure 165/97 H 07/30/25 18:47 Pulse Oximetry 100 07/30/25 18:47 Oxygen Delivery Room Air 07/30/25 14:30 <Arabella Underwood APRN - Last Filed: 07/30/25 18:32> Vital Signs Temperature 97.6 F 07/30/25 12:58 Pulse Rate 51 L 07/30/25 12:58 Respiratory Rate 16 07/30/25 12:58 Blood Pressure 134/92 H 07/30/25 12:58 Pulse Oximetry 98 07/30/25 12:58 Oxygen Delivery Room Air 07/30/25 12:58 Temperature 99 F 07/30/25 14:30 Pulse Rate 98 07/30/25 18:47 Respiratory Rate 20 07/30/25 18:47 Blood Pressure 165/97 H 07/30/25 18:47 Pulse Oximetry 100 07/30/25 18:47 Oxygen Delivery Room Air 07/30/25 14:30 <Rick Mccauley MD - Last Filed: 07/30/25 19:57> [facility] MDM Narrative Medical decision making narrative: Patient is a 65-year-old male who presents to the ER because ?I feel like crap. He reports his symptoms started yesterday. Patient denies any acute pain, shortness a breath, acute cough, or urinary symptoms. He reports yesterday he was vomiting. Patient sources a history of diabetes, pacemaker placement, CHF, COPD, coronary artery disease, high blood pressure. He told the triage nurse that he has not taken his medications in a month for unknown reasons. Patient deflects much of his medical history to his visitor who accompanied him to the ER. * 1600- patient began vomiting. Did not want to give patient Zofran due to history of cardiac conditions. Gave patient Haldol due to his history of marijuana use. Patient responded well to this medication and stopped vomiting. Labs Ordered: CBC, CMP, proBNP, CRP, troponin, ethanol, UDS, UA, beta hydroxybutyrate, lipase, lactic acid, blood cultures, PTT, INR Imaging Ordered: CT brain, chest x-ray Medications Ordered: 1 L normal saline IV bolus, vancomycin IV, insulin 10 units subQ, cefepime 1 g IV her, Tylenol p.o., Haldol 5 mg IM Results: Patient's chest x-ray indicates No acute findings. Significant cardiomegaly with pacemaker in place. Patient's head CT scan indicates No acute findings. Old infarct with encephalomalacia of the occipital lobes on both sides similar to prior study Diagnosis: altered mental status, elevated WBC, hyponatremia, CONNIE MDM: Results of imaging and lab work shared with patient. It was advised patient be admitted to the hospital for further evaluation and treatment. Patient verbalized understanding and are in agreement with plan. Although he has an elevated WBC and lower sodium, pt was slowly given 1 L NS IV bolus for treatment, as he has a significant cardiac and CHF history. Broad spectrum antibiotics will be started, as pt's WBC is elevated with no known source of infection at this time. 1820-spoke with hospitalist, Kandice Chan NP, who was in agreement with plan for admission. Pt will be admitted to the IMU d/t his elevated troponin (although pt's troponin is always elevated). <Arabella Underwood APRN - Last Filed: 07/30/25 18:32> Differential Diagnosis Differential Diagnosis: Pneumonia, CHF exacerbation, altered mental status, stroke, COPD exacerbation, cardiomegaly, COVID, influenza, polysubstance abuse <Arabella Underwood APRN - Last Filed: 07/30/25 18:32> Lab Data [facility] Lab Attestation statement: I personally reviewed the patient's lab results. <Arabella Underwood APRN - Last Filed: 07/30/25 18:32> Result diagrams: 07/30/25 14:43 07/30/25 15:15 <Arabella Underwood APRN - Last Filed: 07/30/25 18:32> Labs: Lab Results 07/30/25 07/30/25 07/30/25 Range/Units 14:33 14:43 15:15 WBC 18.8 H (4.5-10.0) K/mm3 RBC 4.40 L (4.6-6.20) M/mm3 Hgb 15.7 (14.0-18.0) g/dL Hct 44.1 (42.0-52.0) % MCV 100.2 H (80-100) fl MCH 35.7 H (26-34) pg MCHC 35.6 (32-36) g/dl RDW 13.8 (11.5-14.5) % Plt Count 371 (150-375) k/mm3 MPV 10.6 H (7.4-10.4) fl Immature Gran % (Auto) 0.5 (0-0.5) % Neut % (Auto) 67.0 (45.5-73.1) % Lymph % (Auto) 21.5 (18.3-44.2) % [place] % (Auto) 10.2 H (2.6-8.5) % Eos % (Auto) 0.4 (0-4.4) % Baso % (Auto) 0.4 (0.2-1.2) % Lymph # (Auto) 4.04 H (0.9-3.2) K/mm3 [place] # (Auto) 1.9 H (0.1-0.6) K/mm3 Eos # (Auto) 0.1 (0-0.3) K/mm3 Baso # (Auto) 0.1 (0.0-0.1) K/mm3 Abs Immat Gran (auto) 0.09 H (0.00-0.031) K/mm3 Absolute Neuts (auto) 12.6 H (1.3-6.7) K/mm3 Absolute Nucleated RBC 0.000 (0.0-0.012) K/mm3 Nucleated RBC % 0.0 (0.0-0.2) % PT (11.1-14.7) Seconds INR APTT (22.3-36.8) Seconds Sodium 131 L (137-145) mmol/L Potassium 4.6 (3.4-5.0) mmol/L Chloride 99 (98-107) mmol/L Carbon Dioxide 25 (22-30) mmol/L Anion Gap 7 (4-12) mmol/L BUN 39 H D (9-20) mg/dL Creatinine 1.70 H (0.7-1.3) mg/dL Estim Creat Clear Calc 45 ml/min Estimated GFR 41 L (59 - ) Glucose 347 H (65-110) mg/dL POC Capillary Glucose 391 H (65-105) mg/dl Lactic Acid (0.7-2.0) mmol/L Calcium 11.2 H (8.4-10.2) mg/dL Total Bilirubin 0.8 (0.2-1.3) mg/dL AST 37 (17-59) U/L ALT 35 (6-50) U/L Alkaline Phosphatase 108 (38-126) U/L Troponin I 0.087 H* (0.000-0.034) ng/mL C-Reactive Protein < 0.5 (<1.0) mg/dL NT-Pro-B Natriuret Pep 4280 H (19.9-100) pg/mL Total Protein 7.1 (6.3-8.2) g/dL Albumin 4.0 (3.5-5.1) g/dL Lipase 174 (23-300) U/L Beta-Hydroxybutyrate/Acetoacetate 0.27 (0.02-0.27) mmol/L Urine Color Yellow (Yellow) Urine Appearance Cloudy H (Clear) Urine pH 5.5 (5.0-9.0) Ur Specific [place] 1.034 (1.001-1.035) Urine Protein 4+ H (Negative) mg/dL Urine Glucose (UA) 3+ H (Negative) mg/dL Urine Ketones Trace H (Negative) mg/dL Ur Blood (Man) 2+ H (Negative) Urine Nitrate Negative (Negative) Urine Bilirubin Negative (Negative) Urine Urobilinogen 0.2 (<2.0) mg/dL Add Ur Microanalysis Reviewed Leukocyte Esterase Rfl Negative (Negative) FERNANDO/UL Urine RBC 0-2 (0-2) /hpf Urine WBC 0-5 (0-3) /hpf Ur Squamous Epith Cells None seen (Few) /hpf Urine Bacteria None seen /hpf Urine Casts >20 Hyaline Casts 1-2 (None) /lpf Urine Mucus Present /lpf Urine Opiates Screen Negative (Negative) Urine Methadone Screen Negative (Negative) Ur Barbiturates Screen Negative (Negative) Ur Phencyclidine Scrn Negative (Negative) Ur Amphetamine Screen Negative (Negative) U Benzodiazepines Scrn Negative (Negative) Urine Cocaine Screen Negative (Negative) U Cannabinoids Screen Positive A (Negative) Ethyl Alcohol < 10 (<10) mg/dL Influenza A (RT-PCR) (Negative) Influenza B (RT-PCR) (Negative) RSV (RT-PCR) (Negative) SARS-CoV-2 RNA (RT-PCR) (Negative) 07/30/25 07/30/25 07/30/25 Range/Units 17:10 17:48 18:26 WBC (4.5-10.0) K/mm3 RBC (4.6-6.20) M/mm3 Hgb (14.0-18.0) g/dL Hct (42.0-52.0) % MCV (80-100) fl MCH (26-34) pg MCHC (32-36) g/dl RDW (11.5-14.5) % Plt Count (150-375) k/mm3 MPV (7.4-10.4) fl Immature Gran % (Auto) (0-0.5) % Neut % (Auto) (45.5-73.1) % Lymph % (Auto) (18.3-44.2) % [place] % (Auto) (2.6-8.5) % Eos % (Auto) (0-4.4) % Baso % (Auto) (0.2-1.2) % Lymph # (Auto) (0.9-3.2) K/mm3 [place] # (Auto) (0.1-0.6) K/mm3 Eos # (Auto) (0-0.3) K/mm3 Baso # (Auto) (0.0-0.1) K/mm3 Abs Immat Gran (auto) (0.00-0.031) K/mm3 Absolute Neuts (auto) (1.3-6.7) K/mm3 Absolute Nucleated RBC (0.0-0.012) K/mm3 Nucleated RBC % (0.0-0.2) % PT (11.1-14.7) Seconds INR APTT (22.3-36.8) Seconds Sodium (137-145) mmol/L Potassium (3.4-5.0) mmol/L Chloride (98-107) mmol/L Carbon Dioxide (22-30) mmol/L Anion Gap (4-12) mmol/L BUN (9-20) mg/dL Creatinine (0.7-1.3) mg/dL Estim Creat Clear Calc ml/min Estimated GFR (59 - ) Glucose (65-110) mg/dL POC Capillary Glucose 311 H (65-105) mg/dl Lactic Acid (0.7-2.0) mmol/L Calcium (8.4-10.2) mg/dL Total Bilirubin (0.2-1.3) mg/dL AST (17-59) U/L ALT (6-50) U/L Alkaline Phosphatase (38-126) U/L Troponin I 0.091 H* (0.000-0.034) ng/mL C-Reactive Protein (<1.0) mg/dL NT-Pro-B Natriuret Pep (19.9-100) pg/mL Total Protein (6.3-8.2) g/dL Albumin (3.5-5.1) g/dL Lipase (23-300) U/L Beta-Hydroxybutyrate/Acetoacetate (0.02-0.27) mmol/L Urine Color (Yellow) Urine Appearance (Clear) Urine pH (5.0-9.0) Ur Specific [place] (1.001-1.035) Urine Protein (Negative) mg/dL Urine Glucose (UA) (Negative) mg/dL Urine Ketones (Negative) mg/dL Ur Blood (Man) (Negative) Urine Nitrate (Negative) Urine Bilirubin (Negative) Urine Urobilinogen (<2.0) mg/dL Add Ur Microanalysis Leukocyte Esterase Rfl (Negative) FERNANDO/UL Urine RBC (0-2) /hpf Urine WBC (0-3) /hpf Ur Squamous Epith Cells (Few) /hpf Urine Bacteria /hpf Urine Casts Hyaline Casts (None) /lpf Urine Mucus /lpf Urine Opiates Screen (Negative) Urine Methadone Screen (Negative) Ur Barbiturates Screen (Negative) Ur Phencyclidine Scrn (Negative) Ur Amphetamine Screen (Negative) U Benzodiazepines Scrn (Negative) Urine Cocaine Screen (Negative) U Cannabinoids Screen (Negative) Ethyl Alcohol (<10) mg/dL Influenza A (RT-PCR) Negative (Negative) Influenza B (RT-PCR) Negative (Negative) RSV (RT-PCR) Negative (Negative) SARS-CoV-2 RNA (RT-PCR) Negative (Negative) 07/30/25 Range/Units 18:27 WBC (4.5-10.0) K/mm3 RBC (4.6-6.20) M/mm3 Hgb (14.0-18.0) g/dL Hct (42.0-52.0) % MCV (80-100) fl MCH (26-34) pg MCHC (32-36) g/dl RDW (11.5-14.5) % Plt Count (150-375) k/mm3 MPV (7.4-10.4) fl Immature Gran % (Auto) (0-0.5) % Neut % (Auto) (45.5-73.1) % Lymph % (Auto) (18.3-44.2) % [place] % (Auto) (2.6-8.5) % Eos % (Auto) (0-4.4) % Baso % (Auto) (0.2-1.2) % Lymph # (Auto) (0.9-3.2) K/mm3 [place] # (Auto) (0.1-0.6) K/mm3 Eos # (Auto) (0-0.3) K/mm3 Baso # (Auto) (0.0-0.1) K/mm3 Abs Immat Gran (auto) (0.00-0.031) K/mm3 Absolute Neuts (auto) (1.3-6.7) K/mm3 Absolute Nucleated RBC (0.0-0.012) K/mm3 Nucleated RBC % (0.0-0.2) % PT 14.9 H (11.1-14.7) Seconds INR 1.2 APTT 23.2 (22.3-36.8) Seconds Sodium (137-145) mmol/L Potassium (3.4-5.0) mmol/L Chloride (98-107) mmol/L Carbon Dioxide (22-30) mmol/L Anion Gap (4-12) mmol/L BUN (9-20) mg/dL Creatinine (0.7-1.3) mg/dL Estim Creat Clear Calc ml/min Estimated GFR (59 - ) Glucose (65-110) mg/dL POC Capillary Glucose (65-105) mg/dl Lactic Acid 1.7 (0.7-2.0) mmol/L Calcium (8.4-10.2) mg/dL Total Bilirubin (0.2-1.3) mg/dL AST (17-59) U/L ALT (6-50) U/L Alkaline Phosphatase (38-126) U/L Troponin I (0.000-0.034) ng/mL C-Reactive Protein (<1.0) mg/dL NT-Pro-B Natriuret Pep (19.9-100) pg/mL Total Protein (6.3-8.2) g/dL Albumin (3.5-5.1) g/dL Lipase (23-300) U/L Beta-Hydroxybutyrate/Acetoacetate (0.02-0.27) mmol/L Urine Color (Yellow) Urine Appearance (Clear) Urine pH (5.0-9.0) Ur Specific [place] (1.001-1.035) Urine Protein (Negative) mg/dL Urine Glucose (UA) (Negative) mg/dL Urine Ketones (Negative) mg/dL Ur Blood (Man) (Negative) Urine Nitrate (Negative) Urine Bilirubin (Negative) Urine Urobilinogen (<2.0) mg/dL Add Ur Microanalysis Leukocyte Esterase Rfl (Negative) FERNANDO/UL Urine RBC (0-2) /hpf Urine WBC (0-3) /hpf Ur Squamous Epith Cells (Few) /hpf Urine Bacteria /hpf Urine Casts Hyaline Casts (None) /lpf Urine Mucus /lpf Urine Opiates Screen (Negative) Urine Methadone Screen (Negative) Ur Barbiturates Screen (Negative) Ur Phencyclidine Scrn (Negative) Ur Amphetamine Screen (Negative) U Benzodiazepines Scrn (Negative) Urine Cocaine Screen (Negative) U Cannabinoids Screen (Negative) Ethyl Alcohol (<10) mg/dL Influenza A (RT-PCR) (Negative) Influenza B (RT-PCR) (Negative) RSV (RT-PCR) (Negative) SARS-CoV-2 RNA (RT-PCR) (Negative) <Arabellamadison Underwood, MAINTENANCE AND REPAIR WORKER - Last Filed: 07/30/25 18:32> Lab Results 07/30/25 07/30/25 07/30/25 Range/Units 14:33 14:43 15:15 WBC 18.8 H (4.5-10.0) K/mm3 RBC 4.40 L (4.6-6.20) M/mm3 Hgb 15.7 (14.0-18.0) g/dL Hct 44.1 (42.0-52.0) % MCV 100.2 H (80-100) fl MCH 35.7 H (26-34) pg MCHC 35.6 (32-36) g/dl RDW 13.8 (11.5-14.5) % Plt Count 371 (150-375) k/mm3 MPV 10.6 H (7.4-10.4) fl Immature Gran % (Auto) 0.5 (0-0.5) % Neut % (Auto) 67.0 (45.5-73.1) % Lymph % (Auto) 21.5 (18.3-44.2) % [place] % (Auto) 10.2 H (2.6-8.5) % Eos % (Auto) 0.4 (0-4.4) % Baso % (Auto) 0.4 (0.2-1.2) % Lymph # (Auto) 4.04 H (0.9-3.2) K/mm3 [place] # (Auto) 1.9 H (0.1-0.6) K/mm3 Eos # (Auto) 0.1 (0-0.3) K/mm3 Baso # (Auto) 0.1 (0.0-0.1) K/mm3 Abs Immat Gran (auto) 0.09 H (0.00-0.031) K/mm3 Absolute Neuts (auto) 12.6 H (1.3-6.7) K/mm3 Absolute Nucleated RBC 0.000 (0.0-0.012) K/mm3 Nucleated RBC % 0.0 (0.0-0.2) % PT (11.1-14.7) Seconds INR APTT (22.3-36.8) Seconds Sodium 131 L (137-145) mmol/L Potassium 4.6 (3.4-5.0) mmol/L Chloride 99 (98-107) mmol/L Carbon Dioxide 25 (22-30) mmol/L Anion Gap 7 (4-12) mmol/L BUN 39 H D (9-20) mg/dL Creatinine 1.70 H (0.7-1.3) mg/dL Estim Creat Clear Calc 45 ml/min Estimated GFR 41 L (59 - ) Glucose 347 H (65-110) mg/dL POC Capillary Glucose 391 H (65-105) mg/dl Lactic Acid (0.7-2.0) mmol/L Calcium 11.2 H (8.4-10.2) mg/dL Total Bilirubin 0.8 (0.2-1.3) mg/dL AST 37 (17-59) U/L ALT 35 (6-50) U/L Alkaline Phosphatase 108 (38-126) U/L Troponin I 0.087 H* (0.000-0.034) ng/mL C-Reactive Protein < 0.5 (<1.0) mg/dL NT-Pro-B Natriuret Pep 4280 H (19.9-100) pg/mL Total Protein 7.1 (6.3-8.2) g/dL Albumin 4.0 (3.5-5.1) g/dL Lipase 174 (23-300) U/L Beta-Hydroxybutyrate/Acetoacetate 0.27 (0.02-0.27) mmol/L Urine Color Yellow (Yellow) Urine Appearance Cloudy H (Clear) Urine pH 5.5 (5.0-9.0) Ur Specific [place] 1.034 (1.001-1.035) Urine Protein 4+ H (Negative) mg/dL Urine Glucose (UA) 3+ H (Negative) mg/dL Urine Ketones Trace H (Negative) mg/dL Ur Blood (Man) 2+ H (Negative) Urine Nitrate Negative (Negative) Urine Bilirubin Negative (Negative) Urine Urobilinogen 0.2 (<2.0) mg/dL Add Ur Microanalysis Reviewed Leukocyte Esterase Rfl Negative (Negative) FERNANDO/UL Urine RBC 0-2 (0-2) /hpf Urine WBC 0-5 (0-3) /hpf Ur Squamous Epith Cells None seen (Few) /hpf Urine Bacteria None seen /hpf Urine Casts >20 Hyaline Casts 1-2 (None) /lpf Urine Mucus Present /lpf Urine Opiates Screen Negative (Negative) Urine Methadone Screen Negative (Negative) Ur Barbiturates Screen Negative (Negative) Ur Phencyclidine Scrn Negative (Negative) Ur Amphetamine Screen Negative (Negative) U Benzodiazepines Scrn Negative (Negative) Urine Cocaine Screen Negative (Negative) U Cannabinoids Screen Positive A (Negative) Ethyl Alcohol < 10 (<10) mg/dL Influenza A (RT-PCR) (Negative) Influenza B (RT-PCR) (Negative) RSV (RT-PCR) (Negative) SARS-CoV-2 RNA (RT-PCR) (Negative) 07/30/25 07/30/25 07/30/25 Range/Units 17:10 17:48 18:26 WBC (4.5-10.0) K/mm3 RBC (4.6-6.20) M/mm3 Hgb (14.0-18.0) g/dL Hct (42.0-52.0) % MCV (80-100) fl MCH (26-34) pg MCHC (32-36) g/dl RDW (11.5-14.5) % Plt Count (150-375) k/mm3 MPV (7.4-10.4) fl Immature Gran % (Auto) (0-0.5) % Neut % (Auto) (45.5-73.1) % Lymph % (Auto) (18.3-44.2) % [place] % (Auto) (2.6-8.5) % Eos % (Auto) (0-4.4) % Baso % (Auto) (0.2-1.2) % Lymph # (Auto) (0.9-3.2) K/mm3 [place] # (Auto) (0.1-0.6) K/mm3 Eos # (Auto) (0-0.3) K/mm3 Baso # (Auto) (0.0-0.1) K/mm3 Abs Immat Gran (auto) (0.00-0.031) K/mm3 Absolute Neuts (auto) (1.3-6.7) K/mm3 Absolute Nucleated RBC (0.0-0.012) K/mm3 Nucleated RBC % (0.0-0.2) % PT (11.1-14.7) Seconds INR APTT (22.3-36.8) Seconds Sodium (137-145) mmol/L Potassium (3.4-5.0) mmol/L Chloride (98-107) mmol/L Carbon Dioxide (22-30) mmol/L Anion Gap (4-12) mmol/L BUN (9-20) mg/dL Creatinine (0.7-1.3) mg/dL Estim Creat Clear Calc ml/min Estimated GFR (59 - ) Glucose (65-110) mg/dL POC Capillary Glucose 311 H (65-105) mg/dl Lactic Acid (0.7-2.0) mmol/L Calcium (8.4-10.2) mg/dL Total Bilirubin (0.2-1.3) mg/dL AST (17-59) U/L ALT (6-50) U/L Alkaline Phosphatase (38-126) U/L Troponin I 0.091 H* (0.000-0.034) ng/mL C-Reactive Protein (<1.0) mg/dL NT-Pro-B Natriuret Pep (19.9-100) pg/mL Total Protein (6.3-8.2) g/dL Albumin (3.5-5.1) g/dL Lipase (23-300) U/L Beta-Hydroxybutyrate/Acetoacetate (0.02-0.27) mmol/L Urine Color (Yellow) Urine Appearance (Clear) Urine pH (5.0-9.0) Ur Specific [place] (1.001-1.035) Urine Protein (Negative) mg/dL Urine Glucose (UA) (Negative) mg/dL Urine Ketones (Negative) mg/dL Ur Blood (Man) (Negative) Urine Nitrate (Negative) Urine Bilirubin (Negative) Urine Urobilinogen (<2.0) mg/dL Add Ur Microanalysis Leukocyte Esterase Rfl (Negative) FERNANDO/UL Urine RBC (0-2) /hpf Urine WBC (0-3) /hpf Ur Squamous Epith Cells (Few) /hpf Urine Bacteria /hpf Urine Casts Hyaline Casts (None) /lpf Urine Mucus /lpf Urine Opiates Screen (Negative) Urine Methadone Screen (Negative) Ur Barbiturates Screen (Negative) Ur Phencyclidine Scrn (Negative) Ur Amphetamine Screen (Negative) U Benzodiazepines Scrn (Negative) Urine Cocaine Screen (Negative) U Cannabinoids Screen (Negative) Ethyl Alcohol (<10) mg/dL Influenza A (RT-PCR) Negative (Negative) Influenza B (RT-PCR) Negative (Negative) RSV (RT-PCR) Negative (Negative) SARS-CoV-2 RNA (RT-PCR) Negative (Negative) 07/30/25 Range/Units 18:27 WBC (4.5-10.0) K/mm3 RBC (4.6-6.20) M/mm3 Hgb (14.0-18.0) g/dL Hct (42.0-52.0) % MCV (80-100) fl MCH (26-34) pg MCHC (32-36) g/dl RDW (11.5-14.5) % Plt Count (150-375) k/mm3 MPV (7.4-10.4) fl Immature Gran % (Auto) (0-0.5) % Neut % (Auto) (45.5-73.1) % Lymph % (Auto) (18.3-44.2) % [place] % (Auto) (2.6-8.5) % Eos % (Auto) (0-4.4) % Baso % (Auto) (0.2-1.2) % Lymph # (Auto) (0.9-3.2) K/mm3 [place] # (Auto) (0.1-0.6) K/mm3 Eos # (Auto) (0-0.3) K/mm3 Baso # (Auto) (0.0-0.1) K/mm3 Abs Immat Gran (auto) (0.00-0.031) K/mm3 Absolute Neuts (auto) (1.3-6.7) K/mm3 Absolute Nucleated RBC (0.0-0.012) K/mm3 Nucleated RBC % (0.0-0.2) % PT 14.9 H (11.1-14.7) Seconds INR 1.2 APTT 23.2 (22.3-36.8) Seconds Sodium (137-145) mmol/L Potassium (3.4-5.0) mmol/L Chloride (98-107) mmol/L Carbon Dioxide (22-30) mmol/L Anion Gap (4-12) mmol/L BUN (9-20) mg/dL Creatinine (0.7-1.3) mg/dL Estim Creat Clear Calc ml/min Estimated GFR (59 - ) Glucose (65-110) mg/dL POC Capillary Glucose (65-105) mg/dl Lactic Acid 1.7 (0.7-2.0) mmol/L Calcium (8.4-10.2) mg/dL Total Bilirubin (0.2-1.3) mg/dL AST (17-59) U/L ALT (6-50) U/L Alkaline Phosphatase (38-126) U/L Troponin I (0.000-0.034) ng/mL C-Reactive Protein (<1.0) mg/dL NT-Pro-B Natriuret Pep (19.9-100) pg/mL Total Protein (6.3-8.2) g/dL Albumin (3.5-5.1) g/dL Lipase (23-300) U/L Beta-Hydroxybutyrate/Acetoacetate (0.02-0.27) mmol/L Urine Color (Yellow) Urine Appearance (Clear) Urine pH (5.0-9.0) Ur Specific [place] (1.001-1.035) Urine Protein (Negative) mg/dL Urine Glucose (UA) (Negative) mg/dL Urine Ketones (Negative) mg/dL Ur Blood (Man) (Negative) Urine Nitrate (Negative) Urine Bilirubin (Negative) Urine Urobilinogen (<2.0) mg/dL Add Ur Microanalysis Leukocyte Esterase Rfl (Negative) FERNANDO/UL Urine RBC (0-2) /hpf Urine WBC (0-3) /hpf Ur Squamous Epith Cells (Few) /hpf Urine Bacteria /hpf Urine Casts Hyaline Casts (None) /lpf Urine Mucus /lpf Urine Opiates Screen (Negative) Urine Methadone Screen (Negative) Ur Barbiturates Screen (Negative) Ur Phencyclidine Scrn (Negative) Ur Amphetamine Screen (Negative) U Benzodiazepines Scrn (Negative) Urine Cocaine Screen (Negative) U Cannabinoids Screen (Negative) Ethyl Alcohol (<10) mg/dL Influenza A (RT-PCR) (Negative) Influenza B (RT-PCR) (Negative) RSV (RT-PCR) (Negative) SARS-CoV-2 RNA (RT-PCR) (Negative) <Rick Mccauley MD - Last Filed: 07/30/25 19:57> Imaging Data Attestation: I personally reviewed and interpreted this imaging study as follows: <Arabella Underwood APRN - Last Filed: 07/30/25 18:32> Radiologist's impression: ITS Impressions Head CT 07/30/25 17:40 IMPRESSION: 1. No acute findings. Old infarct with encephalomalacia of the occipital lobes on both sides similar to prior study. Chest X-Ray 07/30/25 17:42 IMPRESSION: 1. No acute findings. Significant cardiomegaly with pacemaker in place. <Arabella Underwood APRN - Last Filed: 07/30/25 18:32> ITS Impressions Head CT 07/30/25 17:40 IMPRESSION: 1. No acute findings. Old infarct with encephalomalacia of the occipital lobes on both sides similar to prior study. Chest X-Ray 07/30/25 17:42 IMPRESSION: 1. No acute findings. Significant cardiomegaly with pacemaker in place. <Rick Mccauley MD - Last Filed: 07/30/25 19:57> Discharge Plan Discharge Clinical Impression: Altered mental status, Elevated troponin I level, Pacemaker, Elevated WBC count, Medication noncompliance due to cognitive impairment, History of drug abuse Type 2 diabetes mellitus Qualifiers: Diabetes mellitus residential insulin use: with supervisor intermediates use Diabetes mellitus complication status: without complication Qualified Code(s): E11.9 - Type 2 diabetes mellitus without complications <Arabella Underwood APRN - Last Filed: 07/30/25 18:32> Patient Disposition: Still a Patient <Arabella Underwood APRN - Last Filed: 07/30/25 18:32> Condition: Serious <Arabella Underwood APRN - Last Filed: 07/30/25 18:32>
[2025-07-30] MEDS: SODIUM CHLORIDE 0.9% IV 1,000 ML 500 ML IV CONT (15:21)
[2025-07-30 15:30] LABS: Add Urine Microscopic? YES; Appearance Urine Cloudy (Clear); Glucose Urine UA 3+ mg/dL (Negative); Leukocyte Esterase Ur Negative LEU/UL (Negative); Need Manual Microscopic Reviewed; Nitrate Urine Negative (Negative); Non Pathogenic Casts >20; Specific Grav Ur 1.034 (1.001-1.035)
[2025-07-30 15:36] LABS: Alanine Aminotransferase 35 U/L (6-50); Albumin Level 4.0 g/dL (3.5-5.1); Alkaline Phosphatase 108 U/L (38-126); Anion Gap 7 mmol/L (4-12); Aspartate Amino Transferase 37 U/L (17-59); Beta-Hydroxybutyrate/Acetoace. 0.27 mmol/L (0.02-0.27); Bilirubin,Total 0.8 mg/dL (0.2-1.3); Blood Urea Nitrogen 39 mg/dL (9-20); CRP < 0.5 mg/dL (<1.0); Calcium 11.2 mg/dL (8.4-10.2); Carbon Dioxide 25 mmol/L (22-30); Chloride 99 mmol/L (98-107); Estimated CRCL calculation 45 ml/min; Estimated Glomerular Filt Rate 41; Glucose 347 mg/dL (65-110); Lipase 174 U/L (23-300); Potassium 4.6 mmol/L (3.4-5.0); Sodium 131 mmol/L (137-145); Total Protein 7.1 g/dL (6.3-8.2)
[2025-07-30 15:45] LABS: Cannabinoid Screen Urine Positive (Negative)
[2025-07-30 15:46] LABS: NT Pro B Type Natriuretic Pept 4280 pg/mL (19.9-100); Troponin I 0.087 ng/mL (0.000-0.034)
[2025-07-30] MEDS: HALOPERIDOL LACTATE 5 MG/ML VIAL IM (15:59)
--- NOTE | 2025-07-30 17:23 | PC.NURSE ---
Unable to obtain blood cultures after multiple attempts. Phlebotomy called to attempt.
[2025-07-30 17:50] LABS: Influenza A QL RT-PCR Negative (Negative); Influenza B QL RT-PCR Negative (Negative); RSV RNA, RT-PCR Negative (Negative); SARS-CoV-2 RNA PCR Negative (Negative)
[2025-07-30] MEDS: INSULIN HUMAN REGULAR (*BKC) 100 UNITS/ML 10 UNITS SUB-Q (17:52)
[2025-07-30] MEDS: ACETAMINOPHEN 500 MG TABLET 1000 MG PO (17:52)
--- NOTE | 2025-07-30 18:32 | ECG_ITS ---
Test Date: 2025-07-30 18:28:13 Measurements Intervals [place] Rate: 97 P: -66 NV: 182 QRS: -83 QRSD: 164 T: 0 QT: 402 QTc: 512 Interpretive Statements ECTOPIC ATRIAL RHYTHM WITH FREQUENT SUPRAVENTRICULAR PREMATURE COMPLEXES RIGHT BUNDLE BRANCH BLOCK LEFT VENTRICULAR HYPERTROPHY AND ST-T CHANGE CONSIDER ANTERIOR INFARCT, AGE INDETERMINATE INFERIOR INFARCT, AGE INDETERMINATE ST ELEVATION IN INATEROLAT/INF LEADS SUGGEST MYOCARDIAL ANEURYSM BASELINE ARTIFACT- I, II, AVR, AVL ABNORMAL ECG Compared to ECG 12/29/2024 11:54:53 No significant changes Electronically Signed On 07-30-2025 20:13:28 GRAPHIC ARTS TECHNICIAN by Leonardo Song D.O.
[2025-07-30] MEDS: CEFEPIME 1 GM in SODIUM CHLORIDE 0.9% IV 50 ML 100 ML IVPB (18:44)
[2025-07-30] MEDS: VANCOMYCIN 1,250 MG/NS 250 ML 1,250 MG/250 ML BAG 166.67 MG IVPB ×2 (18:45→22:41)
[2025-07-30 19:00] LABS: INR 1.2; Partial Thromboplastin Time 23.2 Seconds (22.3-36.8); Prothrombin Time 14.9 Seconds (11.1-14.7)
--- NOTE | 2025-07-30 19:28 | PM.IMHP2 ---
H&P: HPI History of Present Illness Date/Time: 07/30/25 19:28 Chief Complaint: Nausea vomiting and diarrhea Narrative: This is a 65-year-old male patient who has a history of having CVA, hyperlipidemia, CHF, coronary artery disease, hypertension and diabetes. The patient came to the emergency room because ?I feel like crap?. Her reports that his symptoms started yesterday. He endorses vomiting since yesterday. Patient endorses that he has not taken any of his medication in the last month for unknown reasons. His white count was found to be 18.8. His sodium is low at 131. His BUN is 39 creatinine 1.7. GFR is 41. His baseline GFR is anywhere from 36-55. His baseline creatinine is anywhere from 1.3-1.91. His BUN baseline is anywhere from 32-42. His blood sugars 391 and then 311. Calcium is high at 11.2. Troponin is 0.087, and 0.091. Patient's troponins are chronically elevated. BNP is 4280. Urine is cloudy 4+ protein 3+ glucose trace ketones 2+ blood. Drug screen was positive for cannabinoids. Influenza a, influenza B, RSV and COVID are all negative. Abdomen/pelvis CT was taken but not yet resulted. Head CT was read as no acute findings. Old infarct with encephalomalacia of the occipital lobes on both sides similar to prior study. Chest x-ray was read as no acute findings. Significant cardiomegaly with pacemaker in place. The patient was given vancomycin and cefepime in the emergency room. He was also given p.o. Tylenol and Haldol as well as IV fluids in the emergency room. The patient stated several times that he wanted to sign out against medical advice because he is boarded in the emergency room. We were able to get him a regular hospital bed in the ER but we do not have a physical medical bed for him at this time. The patient is unhappy about being in the emergency room and wants to go home. I reviewed all of his labs and x-rays with him. I explained that he would have to sign out against medical advice is he is not well enough to be discharged at this time. Patient is being admitted to inpatient status on the date of service of 07/30/2025. Review of Systems Constitutional: Constitutional: Reports as per HPI and Reports no additional constitutional complaints Eyes: Eyes: Reports as per HPI and Reports no additional eye complaints ENT: Reports no additional ear, nose, mouth, and throat complaints and Reports Normal hearing present Cardiovascular: Cardiovascular: Reports no additional cardiovascular complaints Respiratory: Respiratory: Reports as per HPI and Reports no additional respiratory complaints Gastrointestinal: Gastrointestinal: Reports as per HPI and Reports no additional gastrointestinal complaints Musculoskeletal: Musculoskeletal: Reports no additional musculoskeletal complaints Integumentary/Breasts: Skin/Breast: Reports system reviewed and no additional complaints, except as docu Neurologic: Reports no additional neurologic complaints and Reports Normal hearing present Psychiatric: Psychiatric: Reports no additional psychiatric complaints and Reports as per HPI Hematologic/Lymphatic: Hematologic/Lymphatic: Reports no additional hematologic/lymphatic complaints Allergic/Immunologic: Allergic/Immunologic: Reports no additional allergic/immunologic complaints FOR[facility]LY [facility] Past Medical History Medical History Leukemia History of heart attack Pacemaker Prostate abscess Chronic anemia Chronic obstructive pulmonary disease Tobacco dependence Type 2 diabetes mellitus 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 January 2019: Left parietooccipital CVA presenting with confusion and aphasia. 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 Obstructive sleep apnea Refuses CPAP. Chronic kidney disease, stage 3 Baseline creatinine is around 1.4. Vitamin D deficiency Coronary artery disease Patient reports history of 2 MIs; no history of cardiac catheterization. 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 Surgical History Surgical History History of back surgery History of permanent cardiac pacemaker placement Due to sick sinus rhythm. History of transurethral resection of prostate History of hernia surgery Family History Family History Mother Cerebrovascular accident Acute myocardial infarction Hypertension Father Diabetes mellitus Cerebrovascular accident Hypertension Social History Social History (Updated 07/30/25 @ 21:40 by Cynthia Hebert APRN) Social History: He lives alone . His infant childcare provider is peteanna munguia. He has no children. He is . He is disabled. The patient continues to smoke a pack of cigarettes every day and declined smoking cessation. Code status: Full code. Smoking packs per day: 1 Smoking cigarettes per day: 20.0 Years smoked: 45 Smoking pack-years: 45.00 Smoking status: Current every day smoker Tobacco type: cigarettes Second hand tobacco smoke exposure: Yes Alcohol intake: current Drinks per week: 1 Substance use: current Substance use type: marijuana and crack/cocaine Other substance usage details: daily Last use: 11/2024 Lack of Transportation: YES Lack of Food: Never True Current Housing: I Have Housing Concerned About Future Housing: No Difficulty Paying Gas/Electric Bills: No Difficulty Paying for Meds: No Currently Unemployed: YES Education: Don't Know Difficulty w/ Childcare or Family Care: No Living arrangements: alone Additional living arrangements comments: The patient lives in his own apartment in [place]. Occupation/Education: unemployed Additional occupation/education comments: On disability. Spiritual care concerns: No Meds Home Medications and Allergies Home Medications ?Medication ?Instructions ?Recorded ?Confirmed ?Type amitriptyline 100 mg tablet 100 mg PO HS 03/12/20 04/19/25 History atorvastatin 80 mg tablet 80 mg PO HS 03/12/20 04/19/25 History clopidogrel 75 mg tablet 75 mg PO DAILY 03/12/20 04/19/25 History ergocalciferol (vitamin D2) 1,250 1,250 mcg PO WEEKLY 03/12/20 04/19/25 History mcg (50,000 unit) capsule folic acid 1 mg tablet 1 mg PO DAILY 03/12/20 04/19/25 History levetiracetam 250 mg tablet 250 mg PO TID 03/12/20 04/19/25 History aspirin 81 mg chewable tablet 81 mg PO DAILY 05/28/20 04/19/25 History blood-glucose sensor (Dexcom G7 02/23/23 04/11/25 History Sensor device) blood-glucose,assembly line upholsterer,cont 02/23/23 04/11/25 History (Dexcom G7 Endocrinology Specialist) empagliflozin 10 mg tablet 10 mg PO DAILY 02/23/23 04/19/25 History (Jardiance) famotidine 20 mg tablet 20 mg PO BID 02/23/23 04/19/25 History oxybutynin chloride 15 mg 15 mg PO DAILY 02/23/23 04/19/25 History tablet,extended release 24 hr tamsulosin 0.4 mg capsule 0.4 mg PO HS 02/23/23 04/19/25 History gabapentin 600 mg tablet 600 mg PO TID 09/16/24 04/19/25 History dulaglutide 3 mg/0.5 mL 3 mg subcut WEEKLY 10/17/24 04/19/25 History subcutaneous pen injector (Trulicity) duloxetine 30 mg capsule,delayed 30 mg PO DAILY 10/17/24 04/19/25 History release hydroxyurea 500 mg capsule 500 mg PO DAILY 10/17/24 04/19/25 History metoprolol succinate 25 mg 25 mg PO DAILY 10/17/24 04/19/25 History tablet,extended release 24 hr pen needle, diabetic 31 gauge x 10/17/24 12/08/24 History 16 (TRUEplus Pen Needle) sildenafil 100 mg tablet 100 mg PO Q24H PRN as needed 10/17/24 04/11/25 History hydrochlorothiazide 12.5 mg capsule 12.5 mg PO QAM 30 days #30 caps 10/19/24 04/19/25 Rx sucralfate 100 mg/mL oral See Rx Instructions .Route 12/14/24 04/19/25 Rx suspension .COMPLEX #1,200 mL insulin glargine 100 unit/mL (3 40 unit subcut QPM 02/01/25 04/19/25 History mL) subcutaneous pen (Lantus Solostar U-100 Insulin) insulin lispro 100 unit/mL 1 sliding scale dose subcut DAILY 02/01/25 04/19/25 History subcutaneous pen evolocumab 420 mg/3.5 mL 420 mg subcut .COMPLEX 04/11/25 04/19/25 History subcutaneous wearable injector (Repatha Pushtronex) lisinopril 20 mg tablet 20 mg PO DAILY 04/11/25 04/19/25 History mecobalamin (vitamin B12) 1,000 1,000 mcg PO DAILY 04/11/25 04/19/25 History mcg chewable tablet (B12 Active) pantoprazole 40 mg tablet,delayed See Rx Instructions .Route 06/20/25 Rx release .COMPLEX #30 tabs Allergies Allergy/AdvReac Type Severity Reaction Status Date / Time Penicillins Allergy Unknown Other Verified 07/30/25 14:35 Vital Signs Vital Signs - 24 hr 07/30/25 12:58 07/30/25 14:30 07/30/25 15:08 Temperature 97.6 F 99 F Pulse Rate 51 L 101 H 91 Respiratory Rate 16 18 12 Blood Pressure 134/92 H 154/60 H Pulse Oximetry 98 100 100 Oxygen Delivery Room Air Room Air 07/30/25 15:19 07/30/25 15:30 07/30/25 15:32 Temperature Pulse Rate 88 87 82 Respiratory Rate 14 23 H 18 Blood Pressure 141/33 H Pulse Oximetry 100 90 100 Oxygen Delivery 07/30/25 15:52 07/30/25 16:00 07/30/25 16:01 Temperature Pulse Rate 77 75 Respiratory Rate 13 15 Blood Pressure 175/97 H Pulse Oximetry 100 100 100 Oxygen Delivery 07/30/25 16:16 07/30/25 16:17 07/30/25 16:30 Temperature Pulse Rate 79 77 74 Respiratory Rate 15 16 12 Blood Pressure Pulse Oximetry 100 100 Oxygen Delivery 07/30/25 18:47 Temperature Pulse Rate 98 Respiratory Rate 20 Blood Pressure 165/97 H Pulse Oximetry 100 Oxygen Delivery Exam Const: General: cooperative, no acute distress, well developed, awake and Physically active Nutritional Appearance: well nourished Orientation/consciousness: oriented to person and oriented to place HENMT: Head: normal to inspection, No palpable skull fracture present and normocephalic Eyes: General: appearance normal, both eyes and all related structures Alignment and Position: alignment normal Periorbital: periorbital findings normal Eyelids: eyelids normal Conjunctivae: conjunctivae normal Sclera: sclerae normal Cornea: corneas normal Pupils: Equal, round and reactive pupils present and Pupil accommodation reflex normal EOM: EOMs intact bilaterally Neck: Neck: normal visual inspection, full ROM and no lymphadenopathy Chest: Chest palpation & inspection: normal inspection of the chest Resp: Effort & Inspection: normal respiratory effort Auscultation: diminished lung sounds diffuse Cardio: Palpation: normal PMI Rate: regular rate Rhythm: regular rhythm Heart sounds: S1 normal heart sound present GI: Inspection: normal to inspection GI Palp: Yes Tenderness to palpation present (GI) (Epigastric) Other: Abdomen distended. Back/Spine/Pelvis: Back: no CVA tenderness Cervical Spine: cervical ROM normal Skin: General skin exam: normal color Lesions: no lesions Neuro: General: oriented to person and oriented to place Extrem: General: normal to inspection Right upper extremity: normal to inspection and shoulder/upper arm Left upper extremity: normal to inspection and shoulder/upper arm Psych: Appearance: grossly normal Mental Status: mental status grossly normal Speech and movement: Normal speech and movement present Affect: normal affect Attitude: cooperative Thought process: Normal thought process present Thought content: Yes Normal thought content present Other: Patient stated several times that he wanted to sign out against medical advice. Results Labs Labs: Short CBC 07/30/25 Range/Units 14:43 WBC 18.8 H (4.5-10.0) K/mm3 Hgb 15.7 (14.0-18.0) g/dL Hct 44.1 (42.0-52.0) % Plt Count 371 (150-375) k/mm3 BMP 07/30/25 15:15 Sodium 131 L Potassium 4.6 Chloride 99 Carbon Dioxide 25 BUN 39 H D Creatinine 1.70 H Glucose 347 H Calcium 11.2 H Cardiac Enzymes 07/30/25 Range/Units 15:15 Troponin I 0.087 H* (0.000-0.034) ng/mL Liver Function 07/30/25 Range/Units 15:15 Total Bilirubin 0.8 (0.2-1.3) mg/dL AST 37 (17-59) U/L ALT 35 (6-50) U/L Alkaline Phosphatase 108 (38-126) U/L Albumin 4.0 (3.5-5.1) g/dL Urine 07/30/25 Range/Units 15:15 Urine Color Yellow (Yellow) Urine Appearance Cloudy H (Clear) Urine pH 5.5 (5.0-9.0) Ur Specific [place] 1.034 (1.001-1.035) Urine Protein 4+ H (Negative) mg/dL Urine Glucose (UA) 3+ H (Negative) mg/dL Attestation: I personally reviewed all lab results ECG Attestation: I personally reviewed and interpreted this ECG as follows: Interpretation: Test Date: 2025-07-30 18:28:13 Measurements Intervals [place] Rate: 97 P: -66 AR: 182 QRS: -83 QRSD: 164 T: 0 QT: 402 QTc: 512 Interpretive Statements ECTOPIC ATRIAL RHYTHM WITH FREQUENT SUPRAVENTRICULAR PREMATURE COMPLEXES RIGHT BUNDLE BRANCH BLOCK LEFT VENTRICULAR HYPERTROPHY AND ST-T CHANGE CONSIDER ANTERIOR INFARCT, AGE INDETERMINATE INFERIOR INFARCT, AGE INDETERMINATE ST ELEVATION IN INATEROLAT/INF LEADS SUGGEST MYOCARDIAL ANEURYSM BASELINE ARTIFACT- I, II, AVR, AVL ABNORMAL ECG Compared to ECG 12/29/2024 11:54:53 No significant changes Electronically Signed On 07-30-2025 20:13:28 CURRENCY MACHINE OPERATOR by Leonardo Song D.O. Imaging CT scan - head: My impression: Abdominal CT shows some perinephric stranding nonspecific correlate with urinalysis. No acute osseous findings. Vertebral augmentation at L3 similar disc bulge L4-L5 producing several canal stenosis. Radiologist's impression: ITS Impressions Head CT 07/30/25 17:40 IMPRESSION: 1. No acute findings. Old infarct with encephalomalacia of the occipital lobes on both sides similar to prior study. Chest X-Ray 07/30/25 17:42 IMPRESSION: 1. No acute findings. Significant cardiomegaly with pacemaker in place. Quality VTE Prophylaxis VTE prophylaxis: mechanical ordered Assessment and Plan Assessment and plan (1) Elevated WBC count: Code(s): D72.829 - Elevated white blood cell count, unspecified Status: Acute Assessment and Plan: -patient's white count was found to be 18.8. -chest x-ray was read as nothing acute. -blood cultures are pending -the patient was empirically started on cefepime and vancomycin. -CT of the abdomen preliminary was read as perinephritic stranding nonspecific. Correlate with urinalysis. UA was negative for UTI. -the patient is afebrile. Highest temperature was 99?. (2) Elevated troponin I level: Code(s): R79.89 - Other specified abnormal findings of blood chemistry Status: Acute Assessment and Plan: -patient's troponins are chronically elevated. It was noted in his chart that he has had 2 MIs in the past but no cardiac stents. -continue with home medications. -patient denies any chest pain at this time. -he also has CHF and chronic renal failure. -the patient was evaluated by Cardiology on 10/19/2024 with similar episode. Patient also has a known history of cocaine abuse. The patient had an echo performed October of this year which was noted to be unremarkable. Cardiology noted that his elevated troponin most likely was related to combination of renal failure and polysubstance abuse. At that point they wanted to continue to treat him medically with aspirin, atorvastatin, Plavix, and metoprolol. (3) CONNIE (acute kidney injury): Code(s): N17.9 - Acute kidney failure, unspecified Status: Acute Assessment and Plan: - After reviewing his home medications it looks like he takes Jardiance -his GFR is 41 with a baseline between 36 and 55. -he has chronic renal failure stage IIIB. -avoid nephrotoxic medication. -may consider Nephrology consult (4) Diabetes mellitus with hyperglycemia: Qualifiers: Diabetes mellitus type: type 2 Diabetes mellitus intermediate insulin use: without engineering clerk use Qualified Code(s): E11.65 - Type 2 diabetes mellitus with hyperglycemia Code(s): E11.65 - Type 2 diabetes mellitus with hyperglycemia Status: Chronic Assessment and Plan: -pharmacy to reduce his Lantus by 20%. The patient is on Lantus 40 units at home. However was reported that the patient has been noncompliant with his medication. -the patient was given a dose of insulin in the emergency room as his blood sugars were over 300. -patient is noncompliant with his diet as well. -last A1c was 7.6 on 09/17/2024. -repeat A1c -continue with Jardiance (5) GERD (gastroesophageal reflux disease): Code(s): K21.9 - Gastro-esophageal reflux disease without esophagitis Status: Acute Assessment and Plan: -continue with Pepcid (6) Essential hypertension: Code(s): I10 - Essential (primary) hypertension Status: Chronic Assessment and Plan: -blood pressure is 165/97. -continue with home medication -hydralazine p.r.n.. Plan The patient is wanting to sign out against medical advice at this point. I have spoken with him 2 times about staying in the hospital. His blood sugars are elevated, his white count is elevated, his acute on chronic renal failure. His troponins are elevated.
[2025-07-30 19:41] LABS: Troponin I 0.091 ng/mL (0.000-0.034)
--- NOTE | 2025-07-30 22:13 | PC.NURSE ---
PT requesting to leave AMA. pt told this RN that I could not continue ordered antibiotics because i want to leave. and LIZET aware
--- NOTE | 2025-07-30 22:28 | PC.NURSE ---
pt spoke with hospitalist and addressed concerns about leaving. pt states he will stay at this time
[2025-07-30 22:34] LABS: Hemoglobin A1C 7.8 % (<5.7)
--- NOTE | 2025-07-30 22:46 | WPCEDHO ---
ED Hand Off Checklist All vitals saved:YES IV Site documented: YES All med administrations documented: YES Triage Note Triage Note pt to ED for c/o not feeling 07/30/25 14:30 well. pt says for the last couple of days pt has had N/V. pt also hasn't had his meds in the last 3 days. HX T2DM Agree with triage note. Pt blood glucose 391 in room and also co abd pain. States I don't have a good reason for not taking my meds Allergies Penicillins Allergy (Unknown, Verified 07/30/25 14:35) Other Patient had received cefepime in October 2024 PER HOME MED LIST/ ADMIT ORDERS 02/20 Current Diagnoses Elevated white blood cell count, unspecified (07/30/25) Type 2 diabetes mellitus with hyperglycemia (07/30/25) Essential (primary) hypertension (07/30/25) Gastro-esophageal reflux disease without esophagitis (07/30/25) Acute kidney failure, unspecified (07/30/25) Other specified abnormal findings of blood chemistry (07/30/25) Family History (Last Reviewed 07/30/25 @ 19:29 by Cynthia Hebert, ESTHER) Mother Cerebrovascular accident Acute myocardial infarction Hypertension Father Diabetes mellitus Cerebrovascular accident Hypertension Administered/Completed Medications Discontinued Medications Acetaminophen (Acetaminophen 500 Mg Tablet) 1,000 mg PO ONCE STA Stop: 07/30/25 17:34 Last Admin: 07/30/25 17:52 Dose: 1,000 mg Documented By: LEV Haloperidol Lactate (Haloperidol Lactate 5 Mg/Ml Vial) 5 mg IM ONCE ONE Stop: 07/30/25 15:48 Last Admin: 07/30/25 15:59 Dose: 5 mg Documented By: LEV Sodium Chloride (Normal Saline Iv) 1,000 mls @ 500 mls/hr IV CONT .Q2H STA Stop: 07/30/25 17:02 Last Infusion: 07/30/25 16:30 Dose: Infused Documented By: Admin: 07/30/25 15:21 Dose: 500 mls/hr Documented By: LEV Cefepime HCl 1 gm/ Sodium (Chloride) 50 mls @ 100 mls/hr IVPB ONCE STA Stop: 07/30/25 18:33 Last Infusion: 07/30/25 19:11 Dose: Infused Documented By: Admin: 07/30/25 18:44 Dose: 100 mls/hr Documented By: LEV Vancomycin HCl (Vancomycin 1,250 Mg/Ns 250 Ml) 1,250 mg in 250 mls @ 166.667 mls/hr IVPB ONCE ONE Stop: 07/30/25 20:29 Last Infusion: 07/30/25 21:54 Dose: Infused Documented By: Admin: 07/30/25 18:45 Dose: 166.67 mls/hr Documented By: LEV Vancomycin HCl (Vancomycin 1,250 Mg/Ns 250 Ml) 1,250 mg in 250 mls @ 166.667 mls/hr IVPB ONCE ONE Stop: 07/30/25 21:59 Last Admin: 07/30/25 22:41 Dose: 166.67 mls/hr Documented By: MIKE Insulin Human Regular (Insulin Human Regular (*Bkc) 100 Units/Ml) 10 units SUB-Q ONCE ONE Stop: 07/30/25 17:33 Last Admin: 07/30/25 17:52 Dose: 10 units Documented By: SHORTY Co-signed By: MAGDIEL Notes 07/30/25 22:28 Nurse Note by Kalee Clemons pt spoke with hospitalist and addressed concerns about leaving. pt states he will stay at this time Initialized on 07/30/25 22:28 - END OF NOTE 07/30/25 22:13 Nurse Note by Kalee Clemons PT requesting to leave AMA. pt told this RN that I could not continue ordered antibiotics because i want to leave. MD and CSN aware Initialized on 07/30/25 22:13 - END OF NOTE 07/30/25 17:23 Nurse Note by Yvonne Manley Unable to obtain blood cultures after multiple attempts. Phlebotomy called to attempt. Initialized on 07/30/25 17:23 - END OF NOTE Interventions/Assessments IV / Saline Lock, Insert Start: 07/30/25 14:41 Freq: STAT Status: Active Protocol: Document 07/30/25 22:44 MIKE (Rec: 07/30/25 22:44 MIKE [id number]) IV Assessment Peripheral Access Left Antecubital IV Catheter Access Continued Peripheral Access Right Antecubital IV Catheter Access Continued PA: Gastrointestinal Assessment Start: 07/30/25 12:52 Freq: Status: Active Protocol: Document 07/30/25 14:34 MAGDIEL (Rec: 07/30/25 14:34 MAGDIEL [id number]) GI Assessment Gastrointestinal Nausea,Pain,Vomiting Symptoms Description Soft,Tender Last Vital Signs Temperature 98.2 F 07/30/25 22:44 Pulse Rate 72 07/30/25 22:44 Respiratory Rate 20 07/30/25 22:44 Pulse Oximetry 100 07/30/25 22:44 Blood Pressure 146/92 H 07/30/25 22:44 Blood Pressure Mean 110 07/30/25 22:44 Blood Pressure Position Supine 07/30/25 22:44 Oxygen Delivery Room Air 07/30/25 14:30 Weight 96.1 kg 07/30/25 14:30 Last Result - Abnormals Only WBC 18.8 K/mm3 (4.5-10.0) H 07/30/25 14:43 RBC 4.40 M/mm3 (4.6-6.20) L 07/30/25 14:43 MCV 100.2 fl (80-100) H 07/30/25 14:43 MCH 35.7 pg (26-34) H 07/30/25 14:43 MPV 10.6 fl (7.4-10.4) H 07/30/25 14:43 [place] % (Auto) 10.2 % (2.6-8.5) H 07/30/25 14:43 Lymph # (Auto) 4.04 K/mm3 (0.9-3.2) H 07/30/25 14:43 [place] # (Auto) 1.9 K/mm3 (0.1-0.6) H 07/30/25 14:43 Abs Immat Gran (auto) 0.09 K/mm3 (0.00-0.031) H 07/30/25 14:43 Absolute Neuts (auto) 12.6 K/mm3 (1.3-6.7) H 07/30/25 14:43 PT 14.9 Seconds (11.1-14.7) H 07/30/25 18:27 Sodium 131 mmol/L (137-145) L 07/30/25 15:15 BUN 39 mg/dL (9-20) H D 07/30/25 15:15 Creatinine 1.70 mg/dL (0.7-1.3) H 07/30/25 15:15 Estimated GFR 41 (59-) L 07/30/25 15:15 Glucose 347 mg/dL (65-110) H 07/30/25 15:15 POC Capillary Glucose 311 mg/dl (65-105) H 07/30/25 17:48 Hemoglobin A1c 7.8 % (<5.7) H 07/30/25 18:26 Calcium 11.2 mg/dL (8.4-10.2) H 07/30/25 15:15 Troponin I 0.091 ng/mL (0.000-0.034) H* 07/30/25 18:26 NT-Pro-B Natriuret Pep 4280 pg/mL (19.9-100) H 07/30/25 15:15 Urine Appearance Cloudy (Clear) H 07/30/25 15:15 Urine Protein 4+ mg/dL (Negative) H 07/30/25 15:15 Urine Glucose (UA) 3+ mg/dL (Negative) H 07/30/25 15:15 Urine Ketones Trace mg/dL (Negative) H 07/30/25 15:15 Ur Blood (Man) 2+ (Negative) H 07/30/25 15:15 U Cannabinoids Screen Positive (Negative) A 07/30/25 15:15 Most Recent Suicide Severity Rating Suicide Severity Rating NO RISK INDICATED 07/30/25 14:30
[2025-07-31] VITALS (12 sets, daily range): BP systolic 132–179; BP diastolic 60–91; PULSE 84–111; RESP 16–20; TEMP 35.9–36.8; O2SAT 96–100
[2025-07-31 00:53] LABS: Hematocrit 45.2 % (42.0-52.0); Hemoglobin 14.7 g/dL (14.0-18.0); Mean Corpuscular HGB Conc 32.5 g/dl (32-36); Mean Corpuscular Hemoglobin 35.1 pg (26-34); Mean Corpuscular Volume 107.9 fl (80-100); Platelet Count Result 309 k/mm3 (150-375); Red Blood Count 4.19 M/mm3 (4.6-6.20); White Blood Count 22.1 K/mm3 (4.5-10.0)
[2025-07-31 01:29] LABS: Troponin I 0.105 ng/mL (0.000-0.034)
--- NOTE | 2025-07-31 01:31 | ADMGEN ---
This patient, Basilio Riley, was admitted to IMU Room 206-01. Patient/family oriented to hospital policies and general routines including ID bracelet, bed and alarms, visiting hours, pain management, procedures, bathroom and other care routines, personal items, smoking policy, room service/diet, and visiting hours. Information on how to activate the Rapid Response Team has been discussed. Patient/Family are encouraged to report perceived risks to care and to ask questions if they do not understand what they are told or what they should do.
--- NOTE | 2025-07-31 01:56 | PC.NURSE ---
Pt got to the floor once settled in the bed pt asked to leave AMA. Orientation questions were asked and he could not tell me the year so he was told he could not leave AMA. Pt not happy about this but asked for the year an said he will know next time he is asked then will leave here. pt in now resting comfortably and is being pleasant just persistent that he is going to leave soon
[2025-07-31 04:53] LABS: Anion Gap 6 mmol/L (4-12); Blood Urea Nitrogen 36 mg/dL (9-20); Calcium 10.3 mg/dL (8.4-10.2); Carbon Dioxide 22 mmol/L (22-30); Chloride 106 mmol/L (98-107); Estimated CRCL calculation 53 ml/min; Estimated Glomerular Filt Rate 49; Glucose 188 mg/dL (65-110); Potassium 3.6 mmol/L (3.4-5.0); Sodium 134 mmol/L (137-145)
--- NOTE | 2025-07-31 07:04 | P.PNIM_ITS ---
Assessment and Plan Assessment and Plan (1) Elevated WBC count: Code(s): D72.829 - Elevated white blood cell count, unspecified Status: Acute Assessment and Plan: - Vitals stable, remains afebrile. Denies any fevers/chills at home. WBC 18.8 >> 22.1, now downtrending. Lactic WNL - viral panel negative - denies any wounds or skin changes - chest x-ray unremarkable. denies shortness of breath and cough - UA nonconcerning for acute infection CT of the abdomen/pelvis: mild infiltration of the left perinephric space and fatty hilum, suspicious for pyelonephritis. Denies any UTI like symptoms, nausea/vomiting and abdominal pain. - blood cultures are pending - empirically started on cefepime and vancomycin. Patient with several episodes of vomiting on admission, possible leukocytosis due to dehydration given decreased oral intake and vomiting. No longer endorsing nausea/vomiting and is tolerating a diet. Continue ot monitor. (2) Elevated troponin I level: Code(s): R79.89 - Other specified abnormal findings of blood chemistry Status: Acute Assessment and Plan: Troponins appear chronically elevated. It was noted in his chart that he has had 2 MIs in the past but no cardiac stents. Ekg appears unchanged from 12/2024 Evaluated by Cardiology on 10/19/2024 with similar episode and unremarkable echo. Troponin possibly related to renal failure and polysubstance abuse. At that point they wanted to continue to treat him medically with aspirin, atorvastatin, Plavix, and metoprolol. Troponin downtrending. Denies any chest pain and palpitations. Vitals stable. (3) CONNIE (acute kidney injury): Code(s): N17.9 - Acute kidney failure, unspecified Status: Acute Assessment and Plan: Chronic, BUN/Cr 39/1.7 with gfr 41 on admission which is slightly elevated from baseline however likely related to dehydration 2/2 poor oral intake and vomiting Recieved 1L NS and has returned to baseline BUN/Cr has returned to baseline, continue to monitor Monitor renal function Avoid nephrotoxic medications Renally dose medications (4) Diabetes mellitus with hyperglycemia: Qualifiers: Diabetes mellitus penitentiary insulin use: without termite exterminator use Diabetes mellitus type: type 2 Qualified Code(s): E11.65 - Type 2 diabetes mellitus with hyperglycemia Code(s): E11.65 - Type 2 diabetes mellitus with hyperglycemia Status: Chronic Assessment and Plan: - hypoglycemia protocol - POC blood glucose ACHS - home medication - Lantus 40 units and Jardiance 10 mg daily (reported that the patient has been noncompliant) - regimen ordered - Lantus 32 units (20% of home regimen) and SSI - A1C 7.8 (5) Essential hypertension: Code(s): I10 - Essential (primary) hypertension Status: Chronic Assessment and Plan: Chronic, continue with home medication - lisinopril 20 mg daily, metoprolol 25 mg daily - hydralazine p.r.n.. Blood pressures reviewed and remain elevated but stable, continue to monitor Medical Record Review I have reviewed the following patient records and this information was taken into consideration when formulating the assessment and plan.: previous labs and previous hospitalizations Time Spent With Patient Time with patient: 25 - 35 minutes Subjective Date/time seen: 07/31/25 07:04 Interval history: Patient is pleasant sitting up comfortably in bed. He has no complaints stating he feels back to his baseline. He denies any chest pain, palpitations, shortness of breath, nausea/vomiting and abdominal pain. Review of Systems Review of Systems: All systems reviewed & are unremarkable except as noted in HPI and below Exam Narrative: AF HR 90 RR 18 SpO2 98 BP 139/79 General: male in no acute respiratory distress who is nontoxic appearing, sitting up in bed. HEENT: Extraocular movement intact. Sclera clear and anicteric. No facial asymmetry. Chest: Lungs are clear to auscultation bilaterally. No wheezes or crackles. CV: Heart was regular rate and rhythm. Abd: Abdomen was soft. Nontender. Nondistended. Positive bowel sounds. Ext: No clubbing, cyanosis, or edema. DP pulses bilaterally. Neuro: Patient is alert and oriented x4. Speech is clear. Skin: Warm and dry. No rashes noted. Objective Data Vital Signs Vital Signs: Vital Signs - 24 hr 07/30/25 12:58 07/30/25 14:30 07/30/25 15:08 Temperature 97.6 F 99 F Pulse Rate 51 L 101 H 91 Respiratory Rate 16 18 12 Blood Pressure 134/92 H 154/60 H Pulse Oximetry 98 100 100 Oxygen Delivery Room Air Room Air 07/30/25 15:19 07/30/25 15:30 07/30/25 15:32 Temperature Pulse Rate 88 87 82 Respiratory Rate 14 23 H 18 Blood Pressure 141/33 H Pulse Oximetry 100 90 100 Oxygen Delivery 07/30/25 15:52 07/30/25 16:00 07/30/25 16:01 Temperature Pulse Rate 77 75 Respiratory Rate 13 15 Blood Pressure 175/97 H Pulse Oximetry 100 100 100 Oxygen Delivery 07/30/25 16:16 07/30/25 16:17 07/30/25 16:30 Temperature Pulse Rate 79 77 74 Respiratory Rate 15 16 12 Blood Pressure Pulse Oximetry 100 100 Oxygen Delivery 07/30/25 18:47 07/30/25 22:44 07/31/25 00:00 Temperature 98.2 F 98.2 F Pulse Rate 98 72 111 H Respiratory Rate 20 20 19 Blood Pressure 165/97 H 146/92 H 179/76 H Pulse Oximetry 100 100 99 Oxygen Delivery 07/31/25 00:00 07/31/25 02:00 07/31/25 03:20 Temperature 97.8 F Pulse Rate 94 92 98 Respiratory Rate 20 Blood Pressure 158/76 H Pulse Oximetry 100 Oxygen Delivery 07/31/25 03:32 07/31/25 04:00 07/31/25 06:00 Temperature Pulse Rate 86 84 Respiratory Rate Blood Pressure Pulse Oximetry Oxygen Delivery Room Air Intake/Output Intake/Output: Intake & Output 07/28/25 07/29/25 07/30/25 07/31/25 23:59 23:59 23:59 23:59 Intake Total 1300 550 Output Total 510 Balance 1300 40 Meds/Results Medications: Active Medications Generic Name Dose Route Start Last Admin Trade Name Fre PRN Reason Stop Dose Admin Acetaminophen 650 mg 07/30/25 18:32 Acetaminophen 325 Mg Tablet PO Q4H PRN Mild Pain (1-3) or Fever Amitriptyline HCl 100 mg 07/31/25 21:00 Amitriptyline Hcl 25 Mg Tablet PO HS ANDRES Dextrose 12.5 gm 07/30/25 21:37 Dextrose 50% 25 Gm/50 Ml Syringe IV PUSH PRN PRN Hypoglycemia Protocol Gabapentin 600 mg 07/31/25 09:00 Gabapentin 300 Mg Capsule PO TID ANDRES Glucagon 1 mg 07/30/25 21:37 Glucagon For Inj 1 Mg Vial IM PRN PRN Hypoglycemia Protocol Glucose 15 gm 07/30/25 21:37 Glucose Oral Gel 15 Gm Of Glucse In 37.5 Gm Tube PO PRN PRN Hypoglycemia Protocol Hydralazine HCl 10 mg 07/30/25 22:01 Hydralazine Hcl 20 Mg/Ml Vial IV PUSH Q8H PRN Blood Pressure - High Vancomycin HCl 1,500 mg in 500 mls @ 250 mls/hr 07/31/25 19:00 Vancomycin 1,500 Mg/Ns 500 Ml IVPB Q24H ANDRES Dextrose 1,000 mls @ 100 mls/hr 07/30/25 21:37 Dextrose 5% 1,000 Ml IVPB PRN PRN Hypoglycemia Protocol Cefepime HCl 2 gm/ Sodium 50 mls @ 100 mls/hr 07/31/25 06:00 07/31/25 06:34 Chloride IVPB Not Given Q12H ANDRES Insulin Aspart 2 - 5 units 07/31/25 08:00 Insulin Aspart (*Bkc) 100 Units/Ml SUB-Q TIDWM ANDRES Protocol Insulin Glargine 32 units 07/31/25 21:00 Insulin Glargine (*Bkc) 100 Units/Ml SUB-Q HS ANDRES Levetiracetam 250 mg 07/31/25 09:00 Levetiracetam 250 Mg Tablet PO TID ANDRES Radiology Results: ITS Impressions Head CT 07/30/25 17:40 IMPRESSION: 1. No acute findings. Old infarct with encephalomalacia of the occipital lobes on both sides similar to prior study. Chest X-Ray 07/30/25 17:42 IMPRESSION: 1. No acute findings. Significant cardiomegaly with pacemaker in place. Labs Labs: Laboratory Results - last 24 hr 07/30/25 07/30/25 07/30/25 14:33 14:43 15:15 WBC 18.8 H RBC 4.40 L Hgb 15.7 Hct 44.1 MCV 100.2 H MCH 35.7 H MCHC 35.6 RDW 13.8 Plt Count 371 MPV 10.6 H Immature Gran % (Auto) 0.5 Neut % (Auto) 67.0 Lymph % (Auto) 21.5 [place] % (Auto) 10.2 H Eos % (Auto) 0.4 Baso % (Auto) 0.4 Lymph # (Auto) 4.04 H [place] # (Auto) 1.9 H Eos # (Auto) 0.1 Baso # (Auto) 0.1 Abs Immat Gran (auto) 0.09 H Absolute Neuts (auto) 12.6 H Absolute Nucleated RBC 0.000 Nucleated RBC % 0.0 PT INR APTT Sodium 131 L Potassium 4.6 Chloride 99 Carbon Dioxide 25 Anion Gap 7 BUN 39 H D Creatinine 1.70 H Estim Creat Clear Calc 45 Estimated GFR 41 L Glucose 347 H POC Capillary Glucose 391 H Hemoglobin A1c Lactic Acid Calcium 11.2 H Total Bilirubin 0.8 AST 37 ALT 35 Alkaline Phosphatase 108 Troponin I 0.087 H* C-Reactive Protein < 0.5 NT-Pro-B Natriuret Pep 4280 H Total Protein 7.1 Albumin 4.0 Lipase 174 Beta-Hydroxybutyrate/Acetoacetate 0.27 Urine Color Yellow Urine Appearance Cloudy H Urine pH 5.5 Ur Specific [place] 1.034 Urine Protein 4+ H Urine Glucose (UA) 3+ H Urine Ketones Trace H Ur Blood (Man) 2+ H Urine Nitrate Negative Urine Bilirubin Negative Urine Urobilinogen 0.2 Add Ur Microanalysis Reviewed Leukocyte Esterase Rfl Negative Urine RBC 0-2 Urine WBC 0-5 Ur Squamous Epith Cells None seen Urine Bacteria None seen Urine Casts >20 Hyaline Casts 1-2 Urine Mucus Present Urine Opiates Screen Negative Urine Methadone Screen Negative Ur Barbiturates Screen Negative Ur Phencyclidine Scrn Negative Ur Amphetamine Screen Negative U Benzodiazepines Scrn Negative Urine Cocaine Screen Negative U Cannabinoids Screen Positive A Ethyl Alcohol < 10 Influenza A (RT-PCR) Influenza B (RT-PCR) RSV (RT-PCR) SARS-CoV-2 RNA (RT-PCR) 07/30/25 07/30/25 07/30/25 17:10 17:48 18:26 WBC RBC Hgb Hct MCV MCH MCHC RDW Plt Count MPV Immature Gran % (Auto) Neut % (Auto) Lymph % (Auto) [place] % (Auto) Eos % (Auto) Baso % (Auto) Lymph # (Auto) [place] # (Auto) Eos # (Auto) Baso # (Auto) Abs Immat Gran (auto) Absolute Neuts (auto) Absolute Nucleated RBC Nucleated RBC % PT INR APTT Sodium Potassium Chloride Carbon Dioxide Anion Gap BUN Creatinine Estim Creat Clear Calc Estimated GFR Glucose POC Capillary Glucose 311 H Hemoglobin A1c 7.8 H Lactic Acid Calcium Total Bilirubin AST ALT Alkaline Phosphatase Troponin I 0.091 H* C-Reactive Protein NT-Pro-B Natriuret Pep Total Protein Albumin Lipase Beta-Hydroxybutyrate/Acetoacetate Urine Color Urine Appearance Urine pH Ur Specific [place] Urine Protein Urine Glucose (UA) Urine Ketones Ur Blood (Man) Urine Nitrate Urine Bilirubin Urine Urobilinogen Add Ur Microanalysis Leukocyte Esterase Rfl Urine RBC Urine WBC Ur Squamous Epith Cells Urine Bacteria Urine Casts Hyaline Casts Urine Mucus Urine Opiates Screen Urine Methadone Screen Ur Barbiturates Screen Ur Phencyclidine Scrn Ur Amphetamine Screen U Benzodiazepines Scrn Urine Cocaine Screen U Cannabinoids Screen Ethyl Alcohol Influenza A (RT-PCR) Negative Influenza B (RT-PCR) Negative RSV (RT-PCR) Negative SARS-CoV-2 RNA (RT-PCR) Negative 07/30/25 07/31/25 07/31/25 18:27 00:43 03:52 WBC 22.1 H RBC 4.19 L Hgb 14.7 Hct 45.2 MCV 107.9 H D MCH 35.1 H MCHC 32.5 RDW 14.0 Plt Count 309 MPV 10.6 H Immature Gran % (Auto) Neut % (Auto) Lymph % (Auto) [place] % (Auto) Eos % (Auto) Baso % (Auto) Lymph # (Auto) [place] # (Auto) Eos # (Auto) Baso # (Auto) Abs Immat Gran (auto) Absolute Neuts (auto) Absolute Nucleated RBC Nucleated RBC % PT 14.9 H INR 1.2 APTT 23.2 Sodium 134 L Potassium 3.6 Chloride 106 Carbon Dioxide 22 Anion Gap 6 BUN 36 H Creatinine 1.44 H Estim Creat Clear Calc 53 Estimated GFR 49 L Glucose 188 H POC Capillary Glucose Hemoglobin A1c Lactic Acid 1.7 Calcium 10.3 H Total Bilirubin AST ALT Alkaline Phosphatase Troponin I 0.105 H* C-Reactive Protein NT-Pro-B Natriuret Pep Total Protein Albumin Lipase Beta-Hydroxybutyrate/Acetoacetate Urine Color Urine Appearance Urine pH Ur Specific [place] Urine Protein Urine Glucose (UA) Urine Ketones Ur Blood (Man) Urine Nitrate Urine Bilirubin Urine Urobilinogen Add Ur Microanalysis Leukocyte Esterase Rfl Urine RBC Urine WBC Ur Squamous Epith Cells Urine Bacteria Urine Casts Hyaline Casts Urine Mucus Urine Opiates Screen Urine Methadone Screen Ur Barbiturates Screen Ur Phencyclidine Scrn Ur Amphetamine Screen U Benzodiazepines Scrn Urine Cocaine Screen U Cannabinoids Screen Ethyl Alcohol Influenza A (RT-PCR) Influenza B (RT-PCR) RSV (RT-PCR) SARS-CoV-2 RNA (RT-PCR) Quality VTE Prophylaxis VTE prophylaxis: mechanical ordered
[2025-07-31] MEDS: CLOPIDOGREL BISULFATE 75 MG TABLET PO (08:56)
[2025-07-31] MEDS: ASPIRIN 81 MG CHEWABLE TABLET PO (08:56)
[2025-07-31] MEDS: EMPAGLIFLOZIN 10 MG TABLET PO (08:56)
[2025-07-31] MEDS: GABAPENTIN 300 MG CAPSULE 600 MG PO ×3 (08:56→17:00)
[2025-07-31] MEDS: METOPROLOL SUCCINATE EXT REL 25 MG TABCR PO (08:56)
[2025-07-31 09:07] LABS: Troponin I 0.097 ng/mL (0.000-0.034)
[2025-07-31] MEDS: CEFEPIME 2 GM in SODIUM CHLORIDE 0.9% IV 50 ML 100 ML IVPB ×2 (09:46→21:13)
[2025-07-31 09:58] LABS: Hematocrit 39.5 % (42.0-52.0); Hemoglobin 13.6 g/dL (14.0-18.0); Mean Corpuscular HGB Conc 34.4 g/dl (32-36); Mean Corpuscular Hemoglobin 35.0 pg (26-34); Mean Corpuscular Volume 101.5 fl (80-100); Platelet Count Result 318 k/mm3 (150-375); Red Blood Count 3.89 M/mm3 (4.6-6.20); White Blood Count 17.3 K/mm3 (4.5-10.0)
[2025-07-31 10:23] LABS: Procalcitonin 0.2 ng/mL
--- NOTE | 2025-07-31 17:01 | PC.NURSE ---
This patient, Basilio Riley, was transferred to [[id number] ] on 07/31/25 at 1701. Personal belongings sent with patient. Report given to [MAIN Napoles @ [phone] ]. Appropriate documentation sent with patient.
[2025-07-31] MEDS: VANCOMYCIN 1,500 MG/NS 500 ML 1,500 MG/500 ML BAG 250 MG IVPB (18:01)
[2025-07-31] MEDS: AMITRIPTYLINE HCL 25 MG TABLET 100 MG PO (21:12)
[2025-07-31] MEDS: ATORVASTATIN 40 MG TABLET 80 MG PO (21:13)
[2025-07-31] MEDS: INSULIN GLARGINE (*BKC) 100 UNITS/ML 32 UNITS SUB-Q (21:14)
[2025-08-01 04:20] VITALS: BP 106/48; PULSE 86; RESP 16; TEMP 35.9; O2SAT 99
[2025-08-01 07:02] LABS: Hematocrit 39.9 % (42.0-52.0); Hemoglobin 13.1 g/dL (14.0-18.0); Mean Corpuscular HGB Conc 32.8 g/dl (32-36); Mean Corpuscular Hemoglobin 34.6 pg (26-34); Mean Corpuscular Volume 105.3 fl (80-100); Platelet Count Result 268 k/mm3 (150-375); Red Blood Count 3.79 M/mm3 (4.6-6.20); White Blood Count 13.5 K/mm3 (4.5-10.0)
[2025-08-01 07:10] LABS: Anion Gap 3 mmol/L (4-12); Blood Urea Nitrogen 31 mg/dL (9-20); Calcium 9.8 mg/dL (8.4-10.2); Carbon Dioxide 25 mmol/L (22-30); Chloride 111 mmol/L (98-107); Estimated CRCL calculation 54 ml/min; Estimated Glomerular Filt Rate 50; Glucose 92 mg/dL (65-110); Potassium 3.7 mmol/L (3.4-5.0); Sodium 139 mmol/L (137-145)
[2025-08-01 10:15] VITALS: PULSE 92
[2025-08-01] MEDS: METOPROLOL SUCCINATE EXT REL 25 MG TABCR PO (10:15)
[2025-08-01] MEDS: GABAPENTIN 300 MG CAPSULE 600 MG PO ×2 (10:15→13:05)
[2025-08-01] MEDS: ASPIRIN 81 MG CHEWABLE TABLET PO (10:16)
[2025-08-01] MEDS: EMPAGLIFLOZIN 10 MG TABLET PO (10:16)
[2025-08-01] MEDS: CLOPIDOGREL BISULFATE 75 MG TABLET PO (10:16)
[2025-08-01] MEDS: CEFEPIME 2 GM in SODIUM CHLORIDE 0.9% IV 50 ML 100 ML IVPB (10:18)
--- NOTE | 2025-08-01 13:47 | P.DS_ITS ---
DS: Admitting Diagnosis Discharge Date 08/01/2025 Admitting Diagnosis elevated wbc count elevated troponin connie dm htn DS: Discharge Diagnosis Discharge Diagnosis (1) Elevated WBC count: Code(s): D72.829 - Elevated white blood cell count, unspecified Status: Acute (2) Elevated troponin I level: Code(s): R79.89 - Other specified abnormal findings of blood chemistry Status: Acute (3) CONNIE (acute kidney injury): Code(s): N17.9 - Acute kidney failure, unspecified Status: Acute (4) Diabetes mellitus with hyperglycemia: Qualifiers: Diabetes mellitus ocean transportation intermediary insulin use: without ocean transportation intermediary use Diabetes mellitus type: type 2 Qualified Code(s): E11.65 - Type 2 diabetes mellitus with hyperglycemia Code(s): E11.65 - Type 2 diabetes mellitus with hyperglycemia Status: Chronic (5) Essential hypertension: Code(s): I10 - Essential (primary) hypertension Status: Chronic DS: Summary Hospital Course Reason for hospitalization: elevated wbc count elevated troponin connie dm htn Hospital Course: 65-year-old male with a past medical history including CAD with prior MIs, CHF with pacemaker, CKD stage III, type 2 diabetes mellitus, hypertension, prior CVAs, and polysubstance use who presented on 07/30/2025 with nausea, vomiting, diarrhea, and generalized malaise after reportedly being noncompliant with all home medications for approximately one month. On admission, he was noted to have leukocytosis, hyperglycemia, mild acute kidney injury on chronic kidney disease, chronic troponin elevation, and electrolyte abnormalities consistent with dehydration. Initial evaluation included CT head and chest X-ray, both without acute findings, and CT abdomen/pelvis showing mild left perinephric stranding without clear clinical correlation for pyelonephritis. Urinalysis was noninfectious, viral testing was negative, lactic acid was normal, and the patient remained afebrile throughout hospitalization. He was empirically treated with cefepime and vancomycin while infectious workup was pending; blood cultures showed no growth and there was no clear infectious source identified. Leukocytosis was felt to be multifactorial, likely related to dehydration and recent vomiting, and improved with supportive care and antibiotics. Given no clear infectious source and the pending blood culture, had an in-depth conversation with patient in terms of discharge. Discussed with patient that if the blood culture comes back and shows resistance to the oral antibiotic that they were discharged on they will either receive a phone call and a new oral antibiotic will be sent to the pharmacy or they will have to come back to the hospital for IV antibiotics if no oral option is available or further testing necessary. Patient stated understanding and was agreeable with discharge with pending cultures.The CONNIE was attributed to poor oral intake and volume depletion and resolved after IV fluids, with renal function returning to baseline. Chronic troponin elevation was monitored and trended without evidence of acute coronary syndrome, with ECG unchanged from prior studies and no chest pain or hemodynamic instability; this was felt to be related to underlying renal disease per prior cardiology evaluation. Gastrointestinal symptoms resolved, the patient tolerated a diet, and he returned to his baseline functional status. Patient had no complaints at time of discharge denying chest pain, shortness a breath, palpitations, nausea/vomiting, and abdominal pain. He was able to ambulate throughout his room and denied any associated dizzi ness/lightheadedness. Patient states that he is back to his baseline and agreeable to discharge. Patient discharged home in a stable condition. He is to follow up with his primary care provider in 1 week. Status at Discharge Functional status at discharge: independent ambulation Time Spent with Patient Time attestation: Total time spent providing and/or coordinating discharge services: Time spent: Greater than 30 minutes Exam Narrative: AF HR 92 RR 16 SpO2 99 BP 106/48 General: male in no acute respiratory distress who is nontoxic appearing, sitting up in bed. HEENT: Extraocular movement intact. Sclera clear and anicteric. No facial asymmetry. Chest: Lungs are clear to auscultation bilaterally. No wheezes or crackles. CV: Heart was regular rate and rhythm. Abd: Abdomen was soft. Nontender. Nondistended. Positive bowel sounds. Ext: No clubbing, cyanosis, or edema. DP pulses bilaterally. Neuro: Patient is alert and oriented x4. Speech is clear. DS: Data Data Completed and Pending Completed studies during hospitalization: abdomen/pelvis ct chest xr head ct Labs on day of discharge: Labs from last 24 hours 08/01/25 08/01/25 08/01/25 11:50 08:01 06:35 WBC 13.5 H RBC 3.79 L Hgb 13.1 L Hct 39.9 L MCV 105.3 H MCH 34.6 H MCHC 32.8 RDW 13.9 Plt Count 268 MPV 10.6 H Sodium 139 Potassium 3.7 Chloride 111 H Carbon Dioxide 25 Anion Gap 3 L BUN 31 H Creatinine 1.43 H Estim Creat Clear Calc 54 Estimated GFR 50 L Glucose 92 POC Capillary Glucose 210 H 91 Calcium 9.8 07/31/25 07/31/25 21:07 15:45 WBC RBC Hgb Hct MCV MCH MCHC RDW Plt Count MPV Sodium Potassium Chloride Carbon Dioxide Anion Gap BUN Creatinine Estim Creat Clear Calc Estimated GFR Glucose POC Capillary Glucose 218 H 170 H Calcium Discharge Plan Discharge Attending physician on discharge: Alivia Flores Consulting providers: Carla Cruz Discharging Clinician: Carla Cruz Anticipated Discharge Date/Time: 08/01/25 13:39 Patient Disposition: Home Activity: as tolerated Diet: as tolerated and diabetic Discharge Instructions: Discharge disposition: Patient admitted to the hospital for acute nausea/vomiting and altered mental status. All of which has resolved since admission. Possible kidney infection on imaging Will continue cefpodoxime, attached is information on this medication Take all medications as prescribed even if feeling better Eat well balanced meals and stay hydrated Keep active to remain strong Good alan Care every 2 hours Trend urine output Given that the blood culture had not returned, discussed with patient that if the blood culture comes back and shows resistance to the oral antibiotic that they were discharged on they will either receive a phone call and a new oral antibiotic will be sent to the pharmacy or they will have to come back to the hospital for IV antibiotics if no oral option is available. Monitor blood pressures Take caution while standing, rising, or moving Change positions slowly taking a break between each position change If you standing feel dizzy sit back down and take a break Encouraged to continue with yearly vaccinations Return to the emergency department if he developed sudden shortness of breath, chest pain, nausea, vomiting, upset stomach or intractable diarrhea Return to the emergency department if you develop fever greater than 100.5 Follow-up with the primary care physician within 1-2 weeks Thank you for [facility] for your healthcare needs Patient Instructions: Antibiotic Form, Cefpodoxime Proxetil (By mouth), Heart Failure (DC), How to Stop Smoking (GEN) Patient Language: Tamazight Stand Alone Forms: General Discharge Information Follow-up/Referrals: Ai,PHILIP Perea [Primary Care Provider, Family Practice] - 1 Week Discharge Medications: New cefpodoxime 200 mg tablet 200 mg PO Q12H Qty: 10 0RF Rx Instructions: must administer with a meal/food Continued oxybutynin chloride 15 mg tablet extended release 24hr 15 mg PO DAILY famotidine 20 mg tablet 20 mg PO BID tamsulosin 0.4 mg capsule 0.4 mg PO HS (DME) Dexcom G7 Sensor Device MISCELLANEOUS (DME) Dexcom G7 Dive Master Misc MISCELLANEOUS Jardiance 10 mg tablet 10 mg PO DAILY gabapentin 600 mg tablet 600 mg PO TID Rx Instructions: pt. takes one and a half tab (900mg) in morning and noon and 2 tabs 1200 mg in the evenings insulin glargine [Lantus Solostar U-100 Insulin] 100 unit/mL (3 mL) insulin pen 40 unit SUBCUT QPM mecobalamin (vitamin B12) [B12 Active] 1,000 mcg tablet,chewable 1,000 mcg PO DAILY lisinopril 20 mg tablet 20 mg PO DAILY Repatha Pushtronex 420 mg/3.5 mL wearable injector 420 mg subcut .COMPLEX Patient Comments: every other Thursday Rx Instructions: 420 mg subcutaneously Every other thursday; atorvastatin 80 mg tablet 80 mg PO HS clopidogrel 75 mg tablet 75 mg PO DAILY ergocalciferol (vitamin D2) 1,250 mcg (50,000 unit) capsule 1,250 mcg PO WEEKLY Rx Instructions: pT TAKES ON thursday MORNING amitriptyline 100 mg tablet 100 mg PO HS levetiracetam 250 mg Tablet 250 mg PO TID folic acid 1 mg Tablet 1 mg PO DAILY aspirin 81 mg tablet,chewable 81 mg PO DAILY metoprolol succinate 25 mg tablet extended release 24 hr 25 mg PO DAILY (DME) pen needle, diabetic [TRUEplus Pen Needle] 31 gauge x 5/16 needle MISCELLANEOUS hydroxyurea 500 mg capsule 500 mg PO DAILY duloxetine 30 mg capsule,delayed release(DR/EC) 30 mg PO DAILY Trulicity 3 mg/0.5 mL pen injector 3 mg SUBCUT WEEKLY Patient Comments: LD 2 weeks ago, unsure of date. Out of medication Held sildenafil 100 mg tablet 100 mg PO Q24H PRN (Reason: as needed) Hold Instructions: Resume on 08/03/25. hold until follow up with pcp sucralfate 100 mg/mL suspension See Rx Instructions .ROUTE .COMPLEX Qty: 1200 0RF Hold Instructions: Resume on 08/03/25. hold until follow up with pcp Dose Instruction: SHAKE LIQUID AND TAKE 10 ML(1 GRAM) BY MOUTH BEFORE MEALS AND AT BEDTIME Rx Instructions: SHAKE LIQUID AND TAKE 10 ML(1 GRAM) BY MOUTH BEFORE MEALS AND AT BEDTIME pantoprazole 40 mg tablet,delayed release (DR/EC) See Rx Instructions .ROUTE .COMPLEX Qty: 30 11RF Hold Instructions: Resume on 08/03/25. hold until follow up with pcp Dose Instruction: TAKE 1 TABLET BY MOUTH EVERY MORNING Rx Instructions: TAKE 1 TABLET BY MOUTH EVERY MORNING Date of admission: 07/30/25 18:32 Primary Care Provider: AiDina Admitting Provider: Monika Rodriguez Attending physician on admission: Monika Rodriguez Condition: Stable Hospitalist MIPS Heart Failure (Exclusion) Patient has history of Heart Transplant or Left Ventricular Assistive Device?: No IF YES, STOP HERE Heart Failure (Qualifier) Patient has current or prior documentation of LVEF less than or equal to 40%, or mod/servere depressed LVSF?: No IF NO, STOP HERE
--- NOTE | 2025-08-08 08:17 | PC.NURSE ---
Blood cx are negative.
== END 2025-08-01 14:20 | disposition home or self-care (01) | DRG 469 ==
LOC: ANHED 18:31 → ANHIMU 19:51 → ANH3MEDSUR 08-01 08:33 → ANHIMU 08-02 09:39
PROVIDERS: Nurse Practitioner; Admitting Provider Internal Medicine; Emergency Provider Registered Nurse; PCP Physician Assistant; Visit Provider Student in an Organized Health Care Education/Training Program
DX: N17.9 Acute kidney failure, unspecified (principal); I13.0 Hypertensive heart and chronic kidney disease with heart failure and stage 1 through stage 4 chronic kidney disease, or unspecified chronic kidney disease; N18.32 Chronic kidney disease, stage 3b; I50.9 Heart failure, unspecified; I25.10 Atherosclerotic heart disease of native coronary artery without angina pectoris; I65.23 Occlusion and stenosis of bilateral carotid arteries; J44.9 Chronic obstructive pulmonary disease, unspecified; E86.0 Dehydration; E11.22 Type 2 diabetes mellitus with diabetic chronic kidney disease; E11.42 Type 2 diabetes mellitus with diabetic polyneuropathy; E55.9 Vitamin D deficiency, unspecified; E78.5 Hyperlipidemia, unspecified; K21.9 Gastro-esophageal reflux disease without esophagitis; R79.89 Other specified abnormal findings of blood chemistry; G89.29 Other chronic pain; M54.50 Low back pain, unspecified; G47.33 Obstructive sleep apnea (adult) (pediatric); F17.210 Nicotine dependence, cigarettes, uncomplicated; Z20.822 Contact with and (suspected) exposure to COVID-19; I25.2 Old myocardial infarction; I69.354 Hemiplegia and hemiparesis following cerebral infarction affecting left non-dominant side; Z95.0 Presence of cardiac pacemaker; Z79.02 Long term (current) use of antithrombotics/antiplatelets; Z79.82 Long term (current) use of aspirin; Z85.6 Personal history of leukemia; Z79.4 Long term (current) use of insulin; Z91.148 Patient's other noncompliance with medication regimen for other reason
CPT/HCPCS: 36415; 70450; 71045; 74176; 80048; 80053; 80307; 81001; 82010; 82077; 82948; 83036; 83605; 83690; 83880; 84145; 84484; 85025; 85027; 85610; 85730; 86140; 87040; 87637; 93005; 96360; 96372; 99285; A9270; J0692; J1630; J1815; J3373; J7030